=== PATIENT | female | born 1965 | race Caucasian/White ===

== ENCOUNTER → 2016-11-25 | Outpatient (CLI) | payer MEDICAID ==
[~2016-11-25] MED LIST: AC500T; AGM875T PO; ALPR1T PO; AMIT10TA6; CIPR500T78 PO; CLN.1T PO; CYCL10TA9; CYCL10TA9 PO; EST.625T; ESTR1TAB24 PO; FLAXSEED OIL PO; HYDR-2890 PO; HYDR-2997 PO; HYDR-3729 PO; HYDR-757 PO; HYDR1TAB PO; HYDR1TAB8 OP; IBUP-1773 PO; LD5PT; LVF500T; MEDR2.5T PO; METH500T35 PO; METO-333 PO; NAPR-243 PO; NAPR220T29 PO; OXYCONTIN; PARO7.5C PO; PRAV10TA PO; TAMS0.4C9 PO; TRAM50TA2 PO; TRM50T PO; URELLE; VARE1TAB17; ZLP10T PO
--- NOTE | 2016-11-28 09:16 | Diagnostic Imaging Report ---
Bilateral screening mammogram The current study was also evaluated with a Computer Aided Detection (CAD) system. INDICATION: Screening. No current complaints stated on the questionnaire. COMPARISON: 05/13/15. FINDINGS: The breasts are composed of scattered fibroglandular densities. There is no mass, architectural distortion or suspicious cluster of calcification. Allowing for technique and positional differences, no suspicious change is seen. IMPRESSION: No significant change. ACR BI-RADS Category 2: Benign findings. Result letter will be mailed to the patient. Note: At least 10% of breast cancer is not imaged by mammography. Dictated by: Dictated on workstation # [id number]
== END ==
LOC: RAD 10:08
PROVIDERS: ATTEND Nurse Practitioner Family
DX: Z12.31 Encounter for screening mammogram for malignant neoplasm of breast (principal)
CPT/HCPCS: 77067

== ENCOUNTER → 2016-12-15 | Outpatient (CLI) | payer MEDICAID ==
[~2016-12-15] MED LIST changes: +BUPIVACAINE 0.5% 30 ML (SENSORCAINE) VIAL ONE; +CATHETER FLUSH 10 ML SYR IV PRN; +HEParin (CENTRAL IV FLUSH) 500 UNIT/5 ML SYR ONE; +LIDOCAINE 1% INJ 20 ML (XYLOCAINE) VIAL ONE
--- NOTE | 2016-12-15 12:43 | Diagnostic Imaging Report ---
EXAMINATION: HIDA with EF measurements Indication: Abdominal pain TECHNIQUE: After the intravenous administration of 5 mCi of Tc 99m Choletec, imaging over the abdomen was obtained. This was followed by administration of Ensure orally to stimulate intrinsic CCK secretion, followed by continued imaging with ejection fraction measured. FINDINGS: There is homogeneous uptake in the liver with prompt bile duct and gallbladder filling seen. Bowel activity is seen at 25 minutes. Based on further imaging and gallbladder area of interest activity measurements after the administration of Ensure, the gallbladder ejection fraction is estimated at 72%. IMPRESSION: 1. Normal hepatobiliary uptake and Gallbladder filling. 2. Normal gallbladder ejection fraction. Dictated by: Dictated on workstation # [id number]
== END ==
LOC: CARD 09:35
PROVIDERS: ATTEND Family Medicine
DX: R10.31 Right lower quadrant pain (principal)
CPT/HCPCS: 78227

== ENCOUNTER 2017-01-16 05:41 | Outpatient (CLI) | payer MEDICAID ==
[~2017-01-16] VITALS: Ht 172.7 cm; Wt 88.5 kg
[~2017-01-16 05:41] MED LIST changes: -BUPIVACAINE 0.5% 30 ML (SENSORCAINE) VIAL ONE; -CATHETER FLUSH 10 ML SYR IV PRN; -HEParin (CENTRAL IV FLUSH) 500 UNIT/5 ML SYR ONE; -LIDOCAINE 1% INJ 20 ML (XYLOCAINE) VIAL ONE
[2017-01-16] MEDS ORDERED: NAPR550T PO (13:24)
[2017-01-16] MEDS ORDERED: TRAZ100T92 PO (13:24)
== END 2017-01-16 13:30 ==
LOC: PREOP 05:41
PROVIDERS: ATTEND Surgery
DX: Z01.818 Encounter for other preprocedural examination (principal); R19.5 Other fecal abnormalities

== ENCOUNTER 2017-01-18 10:16 | Day surgery (SDC) | payer MEDICAID ==
[~2017-01-18] VITALS: Ht 172.7 cm; Wt 88.5 kg
[~2017-01-18 10:16] MED LIST changes: +NAPR550T PO; +TRAZ100T92 PO
[2017-01-18 10:20] VITALS: BP 116/79
[2017-01-18] MEDS ORDERED: LACTATED RINGERS 1,000 ML IV ONE ×2 (10:23→12:48)
[2017-01-18] MEDS ORDERED: LACTATED RINGERS 1,000 ML IV SCH (11:00)
[2017-01-18] MEDS ORDERED: HURRICAINE EXT TUBE (BENZOCAINE) XX ONE (11:00)
[2017-01-18] MEDS ORDERED: PROPOFOL INJECTION 50 ML IV ONE (12:20)
[2017-01-18] MEDS ORDERED: MIDAZOLAM 5 MG/5 ML (VERSED) VIAL ONE (12:20)
--- NOTE | 2017-01-18 12:24 | Progress Note-Pre Operative ---
Pre-Operative Progress Note H&P Reviewed The H&P was reviewed, patient examined and no changes noted. Time Seen by Provider: 12:21 Date H&P Reviewed: Jan 18, 2017 Time H&P Reviewed: 12:21 Pre-Operative Diagnosis: Gastritis, MelROSALIE Tavares DO Jan 18, 2017 12:24
[2017-01-18 13:05] VITALS: BP 123/87
[2017-01-18 13:45] VITALS: BP 106/72
--- NOTE | 2017-01-18 14:18 | Endoscopy Discharge Instruct ---
Endo Procedure/Findings Findings 1.: Gastritis, Other Findings (Duodenitis) 2.: Polyp 3.: Diverticulosis 4.: Internal Hemorrhoids Discharge Instructions - Activity: You might feel a little sleepy until tomorrow. This is due to the medicine you received to relax you. Until tomorrow, you should: NOT drive a car, operate machinery or power tools. NOT drink any alcoholic beverages. NOT make any important decisions or sign importortant papers. Do not return to work until tomorrow, unless otherwise instructed. Resume previous activities tomorrow. Diet: Start by taking liquids. If you tolerate liquids, advance to solid food. Make appointment for one week, Notify Physician - If you experience excessive bleeding, unusual abdominal pain, fever, or chest pain, contact your doctor immediately. [phone] Follow-Up: - I have received and understand the above instructions and will call my doctor if I have any further questions. Patient Signature Date Nurse Signature Other (Relationship) ROSALIE BELLO DO Jan 18, 2017 14:18
--- NOTE | 2017-01-18 14:22 | Progress Note-Post Operative ---
Post-Operative Progess Note Surgeon (s)/Oven Tender Bagels (s) Surgeon ROSALIE BELLO DO Oven Tender Bagels: none Pre-Operative Diagnosis Gastritis, Melena Post-Operative Diagnosis Gastritis and Duodenitis Colon Polyps Diverticulosis Internal Hemorrhoids Procedure & Operative Findings Date of Procedure 01/18/17 Procedure Performed/Findings EGD with bx Colonoscopy with snare polypectomy Anesthesia Type IV Sedation Estimated Blood Loss Estimated blood loss (mL): scant Specimens/Packing Specimens Removed Duodenal bx, Antral bx, Polyp from Transverse colon, Polyp from Descending colon ROSALIE BELLO DO Jan 18, 2017 14:22
[2017-01-18 14:29] VITALS: BP 106/72
--- NOTE | 2017-01-19 09:30 | OPERATIVE REPORT ---
DATE OF SERVICE: 01/18/2017 PREOPERATIVE DIAGNOSES: Gastritis and history of melena. POSTOPERATIVE DIAGNOSES: 1. Gastritis and duodenitis. 2. Colon polyps 3. Diverticulosis 4. Internal hemorrhoids. PROCEDURE: 1. EGD with biopsy. 2. Colonoscopy and snare polypectomy. SURGEON: Zac Lino DO CLIENT SERVICE PROFESSIONAL: None. ANESTHESIA: IV sedation by CLIENT SERVER DEVELOPER. BLOOD LOSS: Scant. SPECIMEN: 1. Duodenal biopsy. 2. Antral biopsy, one polyp from the transverse colon and one polyp from the descending colon. FLUIDS: Per anesthesia. POSTOPERATIVE CONDITION: Stable. INDICATIONS FOR PROCEDURE: The patient is a 51-year-old female who has been having some gastritis and had some dark tarry stools and needed a workup. FINDINGS: The patient had some gastritis and duodenitis seen during an EGD. During the colonoscopy, she was found to have 2 small polyps, one in the transverse colon and one in the descending colon, showed some diverticula and internal hemorrhage. PROCEDURE NOTE: After informed consent was obtained, the patient was brought to the endoscopy suite and placed in the bed in the left lateral decubitus position. She was administered IV sedation. Vitals were monitored by the CLIENT SERVER DEVELOPER and I did the first procedure was EGD, placed the scope down the mouth through the esophagus into the stomach. I saw some gastritis in the stomach. No obvious ulcers. The scope was pushed into the duodenum and noticed a lot of redness and what looked like duodenitis. I elected to do a biopsy in the duodenum and then did a biopsy in the antrum. She may have a very small hiatal hernia, but nothing else seen. I had retroflexed to look for this and then at this point removed the scope out through the stomach up the esophagus, the GE junction looked fine and out the mouth. Started second procedure: Switched gloves and switched cameras, and went to the other side of the patient and performed the colonoscopy, inserted the scope. The scope was inserted all the way about 150 cm, able to get to the cecum. Took a picture of the appendiceal orifice on the way in and had noticed some diverticula. Once in the cecum, slowly withdrew the scope, insufflating to look circumferentially at the pimentel, looking at the cecum up the ascending colon to the hepatic flexure, then down the transverse colon and the transverse colon, there was a small polyp, took a picture of this and then removed with snare polypectomy and then continued down the transverse colon, the splenic flexure into the descending colon, found another small polyp and did another snare polypectomy and then continued down in the sigmoid and finally into the rectum, retroflexed in the rectal vault, saw some internal hemorrhoids, took a picture of this and then removed the scope. The patient tolerated the procedure and she was transferred to recovery room in stable condition. Job ID: [id number] DocumentID: [id number] Dictated Date: 01/18/2017 20:09:11 Head Transfer Clerk Date: 01/18/2017 23:33:33 Dictated By: DO HERBIE SAM
== END 2017-01-18 14:30 | disposition home or self-care (01) ==
LOC: ENDO 10:16
PROVIDERS: ATTEND Surgery
DX: K29.70 Gastritis, unspecified, without bleeding (principal); K29.80 Duodenitis without bleeding; K63.5 Polyp of colon; K57.30 Diverticulosis of large intestine without perforation or abscess without bleeding; K64.8 Other hemorrhoids; E78.5 Hyperlipidemia, unspecified; F17.210 Nicotine dependence, cigarettes, uncomplicated; E66.9 Obesity, unspecified; K21.9 Gastro-esophageal reflux disease without esophagitis; Z79.899 Other long term (current) drug therapy; Z68.29 Body mass index [BMI] 29.0-29.9, adult

== ENCOUNTER → 2017-04-14 | Outpatient (CLI) | payer MEDICAID ==
[~2017-04-14] MED LIST changes: +ALBU2.5V4 IH; +BENZ200C51 PO; +DOXY100C2 PO; +NAPR-1070 PO; -NAPR550T PO; +NEBU1KIT3 MC; +OMEP40CA36 PO; +ONDA8TAB13 PO; +PRD20T PO
--- NOTE | 2017-04-14 12:17 | Diagnostic Imaging Report ---
INDICATION: Lower respiratory infection. PA and lateral chest. Heart size and pulmonary vascularity are normal. Lungs are clear. There are no effusions or pneumothoraces. IMPRESSION: Negative chest. Dictated by: Dictated on workstation # [id number]
== END ==
LOC: RAD 11:37
PROVIDERS: ATTEND Family Medicine
DX: R06.02 Shortness of breath (principal)
CPT/HCPCS: 71020

== ENCOUNTER 2017-07-28 12:41 | Emergency (ER) | payer MEDICAID ==
[~2017-07-28] VITALS: Ht 172.7 cm; Wt 88.5 kg
[2017-07-28 13:31] LABS: BILIRUBIN,URINE NEGATIVE (NEGATIVE); KETONES,URINE NEGATIVE (NEGATIVE); LEUKOCYTE ESTERASE ,URINE NEGATIVE (NEGATIVE); NITRITE,URINE NEGATIVE (NEGATIVE); PH,URINE 6.5 (5-9); PROTEIN,URINE NEGATIVE (NEGATIVE); UROBILINOGEN,URINE NORMAL (NORMAL)
[2017-07-28 13:40] LABS: SQUAMOUS EPITHELIAL CELL,UR 25-50 /HPF
[2017-07-28] MEDS ORDERED: MECLIZINE 25 MG (ANTIVERT) TAB PO ONE (14:00)
--- NOTE | 2017-07-28 14:00 | ED General ---
General Chief Complaint: Dizziness/Syncope Stated Complaint: DIZZY/PASSING OUT Nursing Triage Note: Pt c/o dizziness and feeling as if she is going to pass out for the last 6 days. Pt tried to get in to se PCP yesterday but was unable to get appt. Nursing Sepsis Screen: No Definite Risk Source of Information: Patient Exam Limitations: No Limitations History of Present Illness Time Seen by Provider: 13:57 Initial Comments The patient is a 52-year-old white female who reports that earlier in the week she began to have the sense of spinning when she turned her head or contorted her body. This has continued and increased in its frequency. She denies hearing loss or tinnitus. She has not previously noted this problem. Timing/Duration: 1 Week Associated Systoms: Syncope, Weakness Allergies and Home Medications Allergies Coded Allergies: Rvcbeii-Lhh-Bto Reductase Inhibitor (Verified Allergy, Unknown, LEG CRAMPS , 01/16/17) fentanyl (Verified Allergy, Unknown, 01/16/17) Home Medications Albuterol Sulfate 2.5 Mg/3 Ml Vial.neb, 2.5 MG IH Q4H PRN for SHORTNESS OF BREATH, #25 Ref 0 Prescribed by: MAYELIN MERCHANT on 06/10/17 1625 Alprazolam 1 Mg Tablet, 1 MG PO TID, (Reported) Benzonatate 200 Mg Capsule, 200 MG PO Q8H PRN for COUGH, #30 Ref 1 Prescribed by: MAYELIN MERCHANT on 06/10/17 1707 Doxycycline Hyclate 100 Mg Capsule, 100 MG PO BID, #14 Ref 0 Prescribed by: MAYELIN MERCHANT on 06/10/17 1625 Naproxen Sodium 550 Mg Tablet, 550 MG PO BID, (Reported) Omeprazole 40 Mg Capsule.dr, 40 MG PO DAILY, #30 Ref 0 Prescribed by: MAYELIN MERCHANT on 06/10/17 1625 Ondansetron 8 Mg Tab.rapdis, 8 MG PO Q6H PRN for NAUSEA/VOMITING-1ST LINE, #10 Ref 1 Prescribed by: MAYELIN MERCHANT on 06/10/17 1708 Prednisone 20 Mg Tab, 40 MG PO DAILY, #10 Ref 0 Prescribed by: MAYELIN MERCHANT on 06/10/17 1625 Trazodone HCl 100 Mg Tablet, 100 MG PO HS, (Reported) Constitutional: see HPI EENTM: see HPI Respiratory: no symptoms reported Cardiovascular: no symptoms reported Gastrointestinal: no symptoms reported Genitourinary: no symptoms reported Musculoskeletal: no symptoms reported Skin: no symptoms reported Psychiatric/Neurological: No Symptoms Reported Hematologic/Lymphatic: No Symptoms Reported Immunological/Allergic: no symptoms reported Past Cmgczrm-Lddtch-Wkjhgj Hx Patient Social History Type Used: Cigarettes Recent Foreign Travel: No Contact w/Someone Who Travel: No Recent Infectious Disease Expo: No Recent Hopitalizations: No Immunizations Up To Date Date of Influenza Vaccine: May 09, 2011 Seasonal Allergies Seasonal Allergies: Yes Surgeries History of Surgeries: Yes (LOWER BACK SX, BILAT CTR, BILAT ELBOW, BILAT RCR, DXLS, ) Surgeries: Appendectomy, Hysterectomy, Oophorectomy, Orthopedic Respiratory History of Respiratory Disorde: No Cardiovascular History of Cardiac Disorders: Yes Cardiac Disorders: High Cholesterol, Irregular Heartbeat Neurological History of Neurological Disord: Yes Neurological Disorders: Headaches /Migraines 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 System Hx 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 Disorders: No Sexually Transmitted Disease: Yes (HPV) HIV/AIDS: No Female 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 Disorders: Denies 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 Genitourinary Genitourinary Disorders: Kidney Stones Gastrointestinal History of Gastrointestinal Di: Yes (ABDOMINAL PAIN, TARRY STOOLS) Gastrointestinal Disorders: Gastroesophageal Reflux, Chronic Diarrhea Musculoskeletal History of Musculoskeletal Dis: Yes Musculoskeletal Disorders: Arthritis, Chronic Back Pain Endocrine History of Endocrine Disorders: Yes (PRE DIABETIC) HEENT Loss of Vision: Bilateral Hearing Impairment: Denies Cancer History of Cancer: No Psychosocial History of Psychiatric Problem: Yes (SEVERE MANIC DEPRESSIVE DISORDER) Behavioral Health Disorders: Anxiety, Bipolar, Depression Integumentary History of Skin or Integumenta: No Blood Transfusions History of Blood Disorders: No Adverse Reaction to a Blood Tr: No (N/A) Family Medical History Significant Family History: No Pertinent Family Hx Family Medial History: Alcoholism 19 FATHER G8 BROTHER G8 SISTER Arthritis 19 MOTHER G8 SISTER Cardiovascular disease 19 FATHER G8 BROTHER Diabetes mellitus 19 FATHER G8 BROTHER G8 SISTER Drug abuse G8 BROTHER G8 SISTER FH: cancer 19 MOTHER (BREAST) Glaucoma 19 FATHER G8 SISTER Hypercholesterolemia 19 FATHER G8 BROTHER Hypertension 19 FATHER G8 BROTHER Myocardial infarction 19 FATHER Psychosocial problem 19 MOTHER G8 BROTHER G8 SISTER Respiratory disorder 19 FATHER Seizure disorder G8 SISTER Thyroid disease G8 SISTER Physical Exam Vital Signs Vital Sign - Last 12Hours 07/28/17 12:54 Temp 98.1 Pulse 75 Resp 18 B/P (MAP) 120/77 (91) Pulse Ox 96 O2 Delivery Room Air Capillary Refill : Less Than 3 Seconds General Appearance: Mild Distress Eyes: Bilateral Eye Normal Inspection Neck: Normal Inspection Respiratory: Chest Non Tender, Lungs Clear, Normal Breath Sounds, No Accessory Muscle Use, No Respiratory Distress Cardiovascular: Regular Rate, Rhythm, No Edema, No Gallop, No JVD, No Murmur, Normal Peripheral Pulses Gastrointestinal: Normal Bowel Sounds, No Organomegaly, No Pulsatile Mass, Non Tender, Soft Back: Normal Inspection, No CVA Tenderness, No Vertebral Tenderness Neurologic/Psychiatric: Alert, Oriented x3, No Motor/Sensory Deficits, Normal Mood/Affect Skin: Normal Color, Warm/Dry Lymphatic: No Adenopathy Comments Rapid nystagmus to extraocular range of motion Progress/Results/Core Measures Suspected Sepsis Recent Fever Within 48 Hours: No Infection Criteria Present: None New/Unexplained Altered Menta: No Sepsis Screen: No Definite Risk Sepsis Diagnosis: SIRS Temperature:98.1 Pulse: 75 Respiratory Rate: 18 Laboratory Tests 07/28/17 13:56: White Blood Count 5.7 Blood Pressure 120 /77 Mean: 91 Laboratory Tests 07/28/17 13:56: Creatinine 0.72, Platelet Count 242, Total Bilirubin 0.4 Results/Orders Lab Results Laboratory Tests Test 07/28/17 13:03 07/28/17 13:56 Range/Units Urine Color YELLOW Urine Clarity SLIGHTLY CLOUDY Urine pH 6.5 5-9 Urine Specific [place] 1.005 L 1.016-1.022 Urine Protein NEGATIVE NEGATIVE Urine Glucose (UA) NEGATIVE NEGATIVE Urine Ketones NEGATIVE NEGATIVE Urine Nitrite NEGATIVE NEGATIVE Urine Bilirubin NEGATIVE NEGATIVE Urine Urobilinogen NORMAL NORMAL MG/DL Urine Leukocyte Esterase NEGATIVE NEGATIVE Urine RBC (Auto) NEGATIVE NEGATIVE Urine RBC NONE /HPF Urine WBC NONE /HPF Urine Squamous Epithelial Cells 25-50 H /HPF Urine Crystals NONE /LPF Urine Bacteria MODERATE H /HPF Urine Casts NONE /LPF Urine Mucus NEGATIVE /LPF Urine Culture Indicated NO White Blood Count 5.7 4.3-11.0 10^3/uL Red Blood Count 4.67 4.35-5.85 10^6/uL Hemoglobin 15.0 11.5-16.0 G/DL Hematocrit 43 35-52 % Mean Corpuscular Volume 93 80-99 FL Mean Corpuscular Hemoglobin 32 25-34 PG Mean Corpuscular Hemoglobin Concent 35 32-36 G/DL Red Cell Distribution Width 12.5 10.0-14.5 % Platelet Count 242 130-400 10^3/uL Mean Platelet Volume 10.1 7.4-10.4 FL Neutrophils (%) (Auto) 56 42-75 % Lymphocytes (%) (Auto) 38 12-44 % Monocytes (%) (Auto) 5 0-12 % Eosinophils (%) (Auto) 1 0-10 % Basophils (%) (Auto) 0 0-10 % Neutrophils # (Auto) 3.2 1.8-7.8 X 10^3 Lymphocytes # (Auto) 2.2 1.0-4.0 X 10^3 Monocytes # (Auto) 0.3 0.0-1.0 X 10^3 Eosinophils # (Auto) 0.0 0.0-0.3 10^3/uL Basophils # (Auto) 0.0 0.0-0.1 10^3/uL Sodium Level 140 135-145 MMOL/L Potassium Level 3.7 3.6-5.0 MMOL/L Chloride Level 104 98-107 MMOL/L Carbon Dioxide Level 26 21-32 MMOL/L Anion Gap 10 5-14 MMOL/L Blood Urea Nitrogen 7 7-18 MG/DL Creatinine 0.72 0.60-1.30 MG/DL Estimat Glomerular Filtration Rate > 60 BUN/Creatinine Ratio 10 Glucose Level 98 70-105 MG/DL Calcium Level 9.4 8.5-10.1 MG/DL Total Bilirubin 0.4 0.1-1.0 MG/DL Aspartate Amino Transf (AST/SGOT) 18 5-34 U/L Alanine Aminotransferase (ALT/SGPT) 20 0-55 U/L Alkaline Phosphatase 80 40-136 U/L Total Protein 7.2 6.4-8.2 GM/DL Albumin 4.3 3.2-4.5 GM/DL My Orders Orders - MAU HOFFMANN MD Ekg Tracing (07/28/17 13:22) Cbc With Automated Diff (07/28/17 13:22) Comprehensive Metabolic Panel (07/28/17 13:22) Ua Culture If Indicated (07/28/17 13:22) Meclizine Tablet (Antivert Tablet) (07/28/17 14:00) Medications Given in ED Current Medications Medications Dose Ordered Sig/Charlotte Route Start Time Stop Time Status Last Admin Dose Admin Meclizine HCl 25 mg ONCE ONCE PO 07/28/17 14:00 07/28/17 14:02 DC 07/28/17 14:21 25 MG Vital Signs/I&O Vital Sign - Last 12Hours 07/28/17 12:54 Temp 98.1 Pulse 75 Resp 18 B/P (MAP) 120/77 (91) Pulse Ox 96 O2 Delivery Room Air Capillary Refill : Less Than 3 Seconds Blood Pressure Mean: 91 Departure Communication (Admissions) Progress Notes Laboratory is entirely normal. The patient reports that she is perhaps modestly better after her single dose of Antivert. She will be dismissed on Antivert to be taken 4 times daily on schedule. Impression Impression: Primary Impression: vertigo Disposition: HOME, SELF-CARE Condition: Stable/Unchanged Departure-Patient Inst. Decision time for Depature: 15:18 Referrals: RK FU JR, MD (PCP) Primary Care Physician Patient Instructions: Vertigo (a Type of Dizziness) (DC) Add. Discharge Instructions: All discharge instructions reviewed with patient and/or family. Voiced understanding. Take the Antivert as directed. Plenty of fluids. Rest. If still troubled after the holiday I would recommend arranging an ear nose and throat consultation. Scripts [Antivert] No Conflict Check 25 MG 4 times a day, #20 Prov: MAU HOFFMANN MD 07/28/17 MAU HOFFMANN MD Jul 28, 2017 14:00
[2017-07-28 14:10] LABS: BASOPHILS % (AUTO) 0 % (0-10); EOSINOPHILS % (AUTO) 1 % (0-10); LYMPHOCYTES # (AUTO) 2.2 X 10^3 (1.0-4.0); LYMPHOCYTES % (AUTO) 38 % (12-44); MEAN CORPUSCULAR HEMOGLOBIN 32 PG (25-34); MEAN CORPUSCULAR HGB CONC 35 G/DL (32-36); MEAN CORPUSCULAR VOLUME 93 FL (80-99); MEAN PLATELET VOLUME 10.1 FL (7.4-10.4); MONOCYTES # (AUTO) 0.3 X 10^3 (0.0-1.0); MONOCYTES % (AUTO) 5 % (0-12); NEUTROPHILS # (AUTO) 3.2 X 10^3 (1.8-7.8); NEUTROPHILS % (AUTO) 56 % (42-75); PLATELET COUNT 242 10^3/uL (130-400); RED BLOOD COUNT 4.67 10^6/uL (4.35-5.85); RED CELL DISTRIBUTION WIDTH 12.5 % (10.0-14.5); WHITE BLOOD COUNT 5.7 10^3/uL (4.3-11.0)
[2017-07-28 14:28] LABS: ALANINE AMINOTRANSFERASE 20 U/L (0-55); ALBUMIN 4.3 GM/DL (3.2-4.5); ANION GAP 10 MMOL/L (5-14); ASPARTATE AMINO TRANSFERASE 18 U/L (5-34); BILIRUBIN,TOTAL 0.4 MG/DL (0.1-1.0); BLOOD UREA NITROGEN 7 MG/DL (7-18); BUN/CREATININE RATIO 10; CALCIUM 9.4 MG/DL (8.5-10.1); CARBON DIOXIDE 26 MMOL/L (21-32); CHLORIDE 104 MMOL/L (98-107); CREATININE SERUM 0.72 MG/DL (0.60-1.30); GFR ESTIMATED > 60; GLUCOSE 98 MG/DL (70-105); POTASSIUM 3.7 MMOL/L (3.6-5.0); SODIUM 140 MMOL/L (135-145); TOTAL PROTEIN 7.2 GM/DL (6.4-8.2)
[2017-07-28] MEDS ORDERED: Antivert (15:20)
[2017-07-28 15:27] VITALS: BP 120/77
== END 2017-07-28 15:27 | disposition home or self-care (01) ==
LOC: EDUNIT# 12:41 → ER 12:43
DX: R42 Dizziness and giddiness (principal); E78.00 Pure hypercholesterolemia, unspecified; G43.909 Migraine, unspecified, not intractable, without status migrainosus; K21.9 Gastro-esophageal reflux disease without esophagitis; F31.89 Other bipolar disorder; F41.9 Anxiety disorder, unspecified; Z82.49 Family history of ischemic heart disease and other diseases of the circulatory system; Z80.3 Family history of malignant neoplasm of breast; Z90.49 Acquired absence of other specified parts of digestive tract; Z90.710 Acquired absence of both cervix and uterus; Z87.19 Personal history of other diseases of the digestive system; Z87.891 Personal history of nicotine dependence
CPT/HCPCS: 36415; 80053; 81000; 85025; 93005

== ENCOUNTER → 2017-11-23 | Outpatient (CLI) | payer MEDICAID ==
[~2017-11-23] MED LIST changes: +Antivert; +TRAZ-190 PO; -TRAZ100T92 PO
--- NOTE | 2017-11-23 11:45 | Diagnostic Imaging Report ---
INDICATION: Screening for osteoporosis. TECHNIQUE: Bone mineral density of the bilateral hips was performed. Lumbar spine could not be evaluated due to spinal instrumentation. FINDINGS: Bone mineral density of the left femoral neck is 0.878 with T score -1.2. Bone mineral density of right femoral neck is 0.881 with T score -1.1. IMPRESSION: Findings consistent with osteopenia of bilateral femoral necks. Dictated by: Dictated on workstation # [id number]
--- NOTE | 2017-11-23 11:51 | Diagnostic Imaging Report ---
INDICATION: Palpable lump in the left breast 4 to 5 o'clock location. Correlation is made with diagnostic mammogram earlier the same day. Sonographic interrogation in the area of palpable abnormality in the inferior left breast was performed. No sonographic abnormality is seen. No solid or cystic masses detected. IMPRESSION: BI-RADS category one No sonographic abnormality is seen. Patient may return to routine annual screening mammography. Continued close clinical and self breast exam is recommended to confirm stability of the palpable abnormality. ACR BI-RADS Category 1: Negative. Dictated by: Dictated on workstation # [id number]
--- NOTE | 2017-11-23 18:46 | Diagnostic Imaging Report ---
INDICATION: Palpable lump in the inferior left breast. Correlation is made with prior exam from 11/25/2016 and 05/13/2015. The current study was also evaluated with a Computer Aided Detection (CAD) system. FINDINGS: Both breasts are primarily involutional. No mass at the area of palpable abnormality is seen, which was marked with a BB marker. No suspicious calcifications are identified. Slightly nodular density in the outer left breast mid depth is noted and stable to prior exam. The axillae are unremarkable. IMPRESSION: No mammographic features suspicious for malignancy are identified. Even so, directed sonographic interrogation of the area of palpable abnormality in the inferior left breast is recommended and will be performed today. ACR BI-RADS Category 0: Incomplete. (Needs additional imaging evaluation). Result letter will be mailed to the patient. Note: At least 10% of breast cancer is not imaged by mammography. Dictated by: Dictated on workstation # [id number]
== END ==
LOC: RAD 09:02
PROVIDERS: ATTEND Physician Assistant
DX: Z13.820 Encounter for screening for osteoporosis (principal); N63.23 Unspecified lump in the left breast, lower outer quadrant
CPT/HCPCS: 76642; 77066; 77080

== ENCOUNTER 2017-12-08 08:08 | Outpatient (RCR) | payer MEDICAID ==
[~2017-12-08 08:08] MED LIST changes: -TRAZ-190 PO; +TRAZ100T92 PO
== END 2018-01-08 13:43 | disposition home or self-care (01) ==
PROVIDERS: ATTEND Orthopaedic Surgery Sports Medicine
DX: S13.4XXD Sprain of ligaments of cervical spine, subsequent encounter (principal); X50.9XXD Other and unspecified overexertion or strenuous movements or postures, subsequent encounter

== ENCOUNTER 2018-04-23 11:23 | Emergency (ER) | payer MEDICAID ==
[~2018-04-23] VITALS: Ht 172.7 cm; Wt 88.5 kg
[~2018-04-23 11:23] MED LIST changes: +TRAZ-190 PO; -TRAZ100T92 PO
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
--- OUTSIDE RECORDS SUMMARY | 2018-04-23 11:29 | XMS REPORT ---
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 Name Role Phone JOSEVASQUEZ ZUNIGA Unavailable PROBLEMS Type Condition ICD9-CM Code [id number] Code Onset Dates Condition Status SNOMED Code Problem Major depressive disorder, recurrent episode, moderate F33.1 Active 729442029 Problem PTSD (post-traumatic stress disorder) F43.10 Active 98977855 Problem Cannabis abuse F12.10 Active 31222192 Problem GERD with esophagitis K21.0 Active 425647500 Problem Spasm of muscle 728.85 Active 70584696 Problem Cocaine use disorder, moderate, in sustained remission F14.21 Active 31804551 Problem Diarrhea 787.91 Active 89776058 Problem Alcohol use disorder, mild, 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 Active 95097512 Problem Tobacco use Z72.0 Active 884341472 Problem Methamphetamine use disorder, severe, 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2 Active 065273297 Problem Insomnia 780.52 Active 571032180 Problem Generalized anxiety disorder F41.1 Active 25233728 ALLERGIES No Information ENCOUNTERS Encounter Location Date Diagnosis [facility] [address] [id number] [address] 14 Apr, 2018 [facility] [address] [id number] [id number] 13 Apr, 2018 [facility] [address] [facility] [id number] [id number] Mar, Encounter for dental exam and cleaning w/o abnormal findings Z01.20 [facility] [id number], [place] [address] Mar, [facility] [address] [place] [address]222- 9915 Feb, Cocaine use disorder, moderate, in sustained remission F14.21 ; Opioid use disorder, moderate, in sustained remission F11.21 ; Alcohol use disorder, mild, 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 ; Tobacco use Z72.0 ; PTSD ( post-traumatic stress disorder) F43.10 ; Methamphetamine use disorder, severe, 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 ; Generalized anxiety disorder F41.1 ; Cannabis abuse F12.10 and Major depressive disorder, recurrent episode, moderate F33.1 [facility] [id number], [place] [address] Jan, Cocaine use disorder, moderate, in sustained remission F14.21 [facility] [address] [place] [address]4553- 4293 Jan, Cocaine use disorder, moderate, in sustained remission F14.21 ; Opioid use disorder, moderate, in sustained remission F11.21 ; Alcohol use disorder, mild, 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 ; Tobacco use Z72.0 ; PTSD ( post-traumatic stress disorder) F43.10 ; Methamphetamine use disorder, severe, 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 ; Generalized anxiety disorder F41.1 ; Cannabis abuse F12.10 and Major depressive disorder, recurrent episode, moderate F33.1 [facility] [address] [place] [address] 17995- 5727 Jan, Dysuria R30.0 and GERD with esophagitis K21.0 [facility] [address] [address] December, Major depressive disorder, recurrent episode, moderate F33.1 [facility] [address] [place] [address] 98719- 6863 December, [facility] [id number] [place] [address] 19516- 0381 December, Major depressive disorder, recurrent episode, moderate F33.1 ; Generalized anxiety disorder F41.1 ; Cannabis abuse F12.10 ; PTSD (post- traumatic stress disorder) F43.10 ; Methamphetamine use disorder, severe, 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 ; Cocaine use disorder, moderate, in sustained remission F14.21 ; Opioid use disorder, moderate, in sustained remission F11.21 ; Alcohol use disorder, mild, 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 and Tobacco use Z72.0 [facility] [address] [place] [address] 19853- 0804 Nov, [facility] [address] [place] [id number] [place] [address] Nov, [facility] [id number] [place] [address] 03142- 1765 Nov, Wellness examination Z00.00 ; Encounter for immunization Z23 ; Screening for osteoporosis Z13.820 ; Screening for breast cancer Z12.31 and Left breast lump N63.20 [facility] [address] [place] [id number] Oct, Dental examination Z01.20 [facility] [address] [place] [address] 16362- 9035 Oct, [facility] [id number] [place] [address] 44597- 1008 Oct, [facility] [id number] [place] [address] 49314- 6650 16 Sep, 2017 [facility] [id number] [place] [address] 95205- 7904 15 Sep, 2017 [facility] [id number] [place] [address] 14018- 4000 14 Sep, 2017 Left otitis media with effusion H65.92 ; Acute suppurative otitis media of right ear without spontaneous rupture of tympanic membrane, recurrence not specified H66.001 ; Dizziness R42 and Fatigue 780.79 [facility] [id number] [place] [address] 72234- 2400 Aug, Major depressive disorder, recurrent episode, moderate F33.1 ; Generalized anxiety disorder F41.1 ; Cannabis abuse F12.10 ; PTSD (post- traumatic stress disorder) F43.10 ; Methamphetamine use disorder, severe, 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 ; Cocaine use disorder, moderate, in sustained remission F14.21 ; Opioid use disorder, moderate, in sustained remission F11.21 ; Alcohol use disorder, mild, 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 and Tobacco use Z72.0 [facility] [id number] [place] [address]2234 -2461 Aug, Ingrown right big toenail L60.0 [facility] [id number] [place] [address] 49834- 9411 Aug, [facility] [id number] [place] [address] 68638- 1753 Aug, PTSD (post-traumatic stress disorder) F43.10 [facility] [id number] [place] [address] 65288- 4045 Aug, Major depressive disorder, recurrent episode, moderate F33.1 ; Generalized anxiety disorder F41.1 and Cannabis abuse F12.10 [facility] [id number] [place] [address] 16667- 2148 Jul, [facility] [id number] [place] [address] 27244- 0295 Jul, [facility] [address] [address] Jul, [facility] [id number] [place] [address] 20165- 0355 Jul, Major depressive disorder, recurrent episode, moderate F33.1 ; Generalized anxiety disorder F41.1 and Cannabis abuse F12.10 [facility] [address], [place] [address] Jul, [facility] [id number] [place] [address] 03230- 0721 Jul, [facility] [id number] [place] [address] 07506- 4800 Jul, Hyperlipidemia 272.4 [facility] [id number] [place] [address] 570773- 2023 Jul, PTSD (post-traumatic stress disorder) F43.10 [facility] [id number] [place] [address] 34820- 1457 Jul, Tobacco use Z72.0 ; Alcohol use disorder, mild, 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 ; Opioid use disorder, moderate, in sustained remission F11.21 ; Methamphetamine use disorder, severe, 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 ; Cocaine use disorder, moderate, in sustained remission F14.21 ; PTSD ( post-traumatic stress disorder) F43.10 ; Major depressive disorder, recurrent episode, moderate F33.1 ; Generalized anxiety disorder F41.1 and Cannabis abuse F12.10 [facility] [place] [address] [place] [address] 96923- 7761 Jul, [facility] [address] [place] [address] 92444- 1234 Jul, Dysuria R30.0 and Mixed hyperlipidemia E78.[address] [place] [address] 93784- 1302 Jun, Major depressive disorder, recurrent episode, moderate F33.1 ; Generalized anxiety disorder F41.1 and Cannabis abuse F12.10 [facility] [address] [place] [address] 36202- 8616 Jun, [address] [place] [address] 92153- 2795 Jun, Generalized anxiety disorder F41.1 ; Major depressive disorder, recurrent episode, moderate F33.1 ; PTSD (post-traumatic stress disorder) F43.10 ; Opioid use disorder, moderate, in sustained remission F11.21 ; Cannabis abuse F12.10 ; Alcohol use disorder, mild, 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 ; Methamphetamine use disorder, severe, 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 ; Cocaine use disorder, moderate, in sustained remission F14.21 and Tobacco use Z72.[address] 14206- 3323 Jun, Major depressive disorder, recurrent episode, moderate F33.1 ; Generalized anxiety disorder F41.1 and Cannabis abuse F12.[address] 91331- 9596 Jun, [id number] [place] [address] 80286- 2314 Jun, [address] 72563- 4782 Jun, Major depressive disorder, recurrent episode, moderate F33.1 ; Generalized anxiety disorder F41.1 and Cannabis abuse F12.10 [facility] [address] [id number] Mar, Dental examination Z01.20 [facility] [id number] [place] [address] [id number] Feb, Dental examination Z01.20 [facility] [id number] [place] [address] 30789- 9524 Mar, [facility] [id number] [place] [address] 41222- 0977 Mar, [address] 67918- 3863 Feb, Hyperlipidemia 272.4 and Prediabetes 790.29 [id number] [place] [address] 93071- 3581 Feb, Fatigue 780.79 and Hyperlipidemia 272.[address] [id number] [place] [address]- 0243 Feb, Lumbago 724.2 ; Hyperlipidemia 272.4 ; Insomnia 780.52 and Fatigue 780.79 [facility] [address] [place] [address]- 8306 Nov, [facility] [address] [place] [address]- 8115 Nov, [facility] [address], [place] [address]- 9492 Mar, [facility] [id number] [place] [address], [place] [address]- 9200 Mar, [facility] [id number], [place] [address]- 1730 Jan, [facility] [id number], [place] [address]- 9598 Jan, [facility] [address] [place] [address]- 5094 December, [facility] [address] [place] [address]- 9496 December, [facility] [address] [address]- 4189 Nov, [facility] [address], [place] [address]- 9125 Nov, [facility] [address], [place] [address]- 1982 Nov, [facility] [address], [place] [address]- 7091 Nov, [facility] [address], [place] [address]- 2054 Nov, [facility] [id number], [place] [address]- 4810 Nov, [facility] [place] [facility] [address] [id number] [place] [address]- 9206 31 Oct, 2013 [facility] [place] [facility] [address] [id number] [place] [address]283 31 Oct, 2013 [facility] [place] [facility] [address] [id number] [place] [address]- 2256 20 Oct, 2013 [facility] [place] [facility] [address] [id number] [place] [address]- 1556 20 Oct, 2013 [facility] [place] [facility] [address] [id number] [place] [address]- 5966 Oct, [facility] [place] [facility] [address] [id number] [place] [address]- 8711 Oct, [facility] [place] [facility] [address] [id number] [place] [address]- 7236 Oct, [facility] [place] [facility] [address] [id number] [place] [address]- 9721 Oct, [facility] [place] [facility] [address] [id number] [place] [address]- 9874 Oct, [facility] [place] [facility] [address] [id number] [place] [address]- 2422 Oct, [facility] [place] [facility] [address] [id number] [place] [address]- 7301 Oct, [facility] [place] [facility] [address] [id number] [place] [address]- 2092 Oct, [facility] [place] [facility] [address] [id number] [place] [address]- 8275 Oct, [facility] [place] [facility] [address] [id number] [place] [address]- 4166 Sep, [facility] [place] [facility] [address] [id number] [place] [address]- 8513 Sep, [facility] [place] [facility] [address] [id number] [place] [address]- 1512 20 Sep, 2013 [facility] [place] [facility] [address] [id number] [place] [address]- 3316 20 Sep, 2013 [facility] [place] [facility] [address] [id number] [place] [address]- 7746 20 Sep, 2013 [facility] [place] [facility] [address] [facility] [id number] [place] [address]- 8555 20 Sep, 2013 [facility] [place] [facility] [address] [id number] [place] [address]- 3404 18 Sep, 2013 [facility] [place] [facility] [address] [id number] [place] [address]- 6131 18 Sep, 2013 [facility] [place] [facility] [address] [facility] [id number] [place] [address]- 9232 14 Sep, 2013 [facility] [place] [facility] [address] [facility] [id number] [place] [address]- 1139 14 Sep, 2013 [facility] [place] [facility] [address] [facility] [id number] [place] [address]- 2788 14 Sep, 2013 [facility] [place] [facility] [address] [facility] [id number] [place] [address]- 3844 14 Sep, 2013 [facility] [place] [facility] [address] [facility] [id number] [place] [address]- 5052 14 Sep, 2013 [facility] [place] [facility] [address] [facility] [id number] [place] [address]- 3353 14 Sep, 2013 [facility] [place] [facility] [address] [facility] [id number] [place] [address]- 5456 13 Sep, 2013 [facility] [place] [facility] [address] [facility] [id number] [place] [address]- 0921 13 Sep, 2013 [facility] [place] [facility] [address] [facility] [id number] [place] [address]- 1932 12 Sep, 2013 [facility] [place] [facility] [address] [facility] [id number] [place] [address]- 6911 Sep, [facility] [address] [id number] [place] [address]- 9292 Sep, [facility] [place] [facility] [address] [id number] [place] [address]- 5038 Sep, [facility] [place] [facility] [address] [id number] [place] [address]- 6349 Aug, [facility] [place] [facility] [address] [id number] [place] [address]- 6599 Aug, [facility] [place] [facility] [address] [id number] [place] [address]- 0302 Aug, [facility] [place] [facility] [address] [id number] [place] [address]- 5981 Aug, [facility] [place] [facility] [address] [id number] [place] [address]- 1733 Aug, [facility] [place] [facility] [address] [id number] [place] [address]- 0280 Jul, [facility] [place] [facility] [address] [id number] [place] [address]- 2411 Jul, [facility] [place] [facility] [address] [id number] [place] [address]- 2798 Jul, [facility] [place] [facility] [address] [id number], [place] [address]- 0455 Jul, [facility] [place] [facility] [address] [id number], [place] [address]- 1226 Jul, [facility] [place] [facility] [address] [id number] [place] [address]- 7462 Jul, [facility] [place] [facility] [address] [id number], [place] [address]- 8512 Jul, [facility] [place] [facility] [address] [id number] [place] [address]- 7183 Jul, [facility] [place] [facility] [address] [id number] [place] [address]- 3570 Jul, [facility] [place] [facility] [address] [id number] [place] [address]- 3005 Jun, [facility] [place] [facility] [address] [id number] [place] [address]- 8772 Jun, [facility] [place] [facility] [address] [id number] [place] [address]- 4171 Jun, [facility] [place] [facility] [address] [id number] [place] [address]- 7305 Jun, [facility] [place] [facility] [address] [id number] [place] [address]- 3758 Jun, [facility] [place] [facility] [address] [id number] [place] [address]- 9335 Jun, [facility] [place] [facility] [address] [id number] [place] [address]- 8485 Jun, [facility] [place] [facility] [address] [id number] [place] [address]- 9753 Jun, [facility] [place] [facility] [address] [id number] [place] [address]- 1308 Jun, [facility] [place] [facility] [address] [facility] [id number] [place] [address]- 4377 Jun, [facility] [place] [facility] [address] [id number] [place] [address]- 2176 May, [facility] [place] [facility] [address] [id number], [place] [address]- 5260 28 May, 2013 [facility] [place] [facility] [address] [id number] [place] [address]- 2433 May, [facility] [place] [facility] [address] [id number] [place] [address]- 5393 22 May, 2013 [facility] [place] [facility] [address] [id number], [place] [address]- 0391 16 May, 2013 [facility] [place] [facility] [address] [id number] [place] [address]- 7551 May, [facility] [place] [facility] [address] [id number] [place] [address]- 2938 May, [facility] [place] [facility] [address] [id number] [place] [address]- 7556 May, [facility] [place] [facility] [address] [id number] [place] [address]- 0803 May, [facility] [place] [facility] [address] [id number] [place] [address]- 7256 Apr, [facility] [place] [facility] [address] [id number] [place] [address]- 9136 Apr, [facility] [place] [facility] [address] [id number] [place] [address]- 3887 Apr, [facility] [place] [facility] [address] [id number] [place] [address]- 4977 Apr, [facility] [place] [facility] [address] [id number] [place] [address]- 0258 Mar, [facility] [place] [facility] [address] [id number] [place] [address]- 7664 Mar, [facility] [place] [facility] [address] [id number] [place] [address]- 8065 Mar, [facility] [place] [facility] [address] [id number] [place] [address]- 6179 Mar, [facility] [place] [facility] [address] [id number] [place] [address]- 9407 Mar, [facility] [place] [facility] [address] [id number] [place] [address]- 9580 Mar, [facility] [place] [facility] [address] [id number] [place] [address]- 3974 Mar, [facility] [place] [facility] [address] [id number] [place] [address]- 3606 Feb, [facility] [address] [id number] [place] [address]- 6787 Feb, [facility] [place] [facility] [address] [id number] [place] [address]- 3735 Feb, [facility] [place] [facility] [address] [id number] [place] [address]- 8842 Feb, [facility] [place] [facility] [address] [id number] [place] [address]- 9230 Feb, [facility] [place] [facility] [address] [id number] [place] [address]- 4155 Feb, [facility] [place] [facility] [address] [id number] [place] [address]- 3395 Feb, [facility] [address] [id number] [place] [address]- 7341 Feb, [facility] [place] [facility] [address] [id number] [place] [address]- 2449 Feb, [facility] [place] [facility] [address] [id number] [place] [address]- 0216 Feb, [facility] [place] [facility] [address] [id number] [place] [address]- 0874 Feb, [facility] [place] [facility] [address] [id number] [place] [address]- 1859 Jan, [facility] [place] [facility] [address] [id number] [place] [address]- 1865 Jan, [facility] [place] [facility] [address] [id number] [place] [address]- 6248 December, [facility] [place] [facility] [address] [id number] [place] [address]- 0150 December, [facility] [place] [facility] [address] [id number] [place] [address]- 5536 Nov, [facility] [place] [facility] [address] [id number] [place] [address]- 6158 Nov, [facility] [address] [id number] [place] [address]- 1964 Oct, [facility] [place] [facility] [address] [id number] [place] [address] Oct, [facility] [address] [id number] [place] [address] Oct, [facility] [place] [facility] [address] [id number] [place] [address] Oct, [facility] [address] [id number] [place] [address] Sep, [facility] [address] [id number] [place] [address] Sep, [facility] [address] [id number] [place] [address] Sep, [facility] [address] [id number] [place] [address] Sep, [facility] [address] [id number] [place] [address] Aug, [facility] [address] [id number] [place] [address] Aug, [facility] [address] [id number] [place] [address] Jul, [facility] [address] [id number] [place] [address] Jul, [facility] [place] [facility] [address] [id number] [place] [address] Jul, [facility] [place] [facility] [address] [id number] [place] [address] Jul, [facility] [place] [facility] [address] [id number] [place] [address] Jul, [facility] [place] [facility] [address] [id number] [place] [address] Jul, [facility] [place] [facility] [address] [id number] [place] [address] Jun, [facility] [place] [facility] [address] [id number] [place] [address] Jun, [facility] [place] [facility] [address] [id number] [place] [address], [place] [address] Jun, [facility] [place] [facility] [address] [id number] [place] [address] Jun, [facility] [place] [facility] [address] [id number] [place] [address], [place] [address]- [address] Jun, [facility] [place] [facility] [address] [id number] [place] [address] May, [facility] [place] [facility] [address] [id number], [place] [address] May, [facility] [place] [facility] [address] [id number] [place] [address]- [address] May, [facility] [place] [facility] [address] [facility] [id number], [place] [address] May, [facility] [place] [facility] [address] [id number], [place] [address] May, [facility] [place] [facility] [address] [id number], [place] [address] May, [facility] [place] [facility] [address] [id number] [place] [address] May, [facility] [place] [facility] [address] [facility] [id number], [place] [address] May, [facility] [place] [facility] [address] [facility] [id number] Mar, [facility] [place] [facility] [address] [id number] [place] [address] Mar, [facility] [place] [facility] [address] [id number] [place] [address] Mar, [facility] [place] [facility] [address] [id number] [place] [address] Feb, [facility] [place] [facility] [address] [id number] [place] [address] Feb, [facility] [place] [facility] [address] [id number] [place] [address] Feb, [facility] [place] [facility] [address] [id number] [place] [address] Feb, [facility] [place] [facility] [address] [id number] [place] [address] Jan, [facility] [place] [facility] [address] [id number] [place] [address] Jan, [facility] [place] [facility] [address] [id number] [place] [address] Jan, [facility] [place] [facility] [address] [id number] [place] [address] December, [facility] [place] [facility] [address] [id number] [place] [address] Nov, [facility] [place] [facility] [address] [id number] [place] [address] Oct, [facility] [place] [facility] [address] [id number] [place] [address] Oct, [facility] [place] [facility] [address] [id number] [place] [address] Oct, [facility] [place] [facility] [address] [id number] [place] [address] Oct, [facility] [place] [facility] [address] [id number] [place] [address] Aug, [facility] [place] [facility] [address] [id number] [place] [address] Aug, [facility] [address] [id number] [place] [address] Aug, [facility] [address] [id number] [place] [address] Aug, [facility] [address] [id number] [place] [address] Aug, [facility] [address] [id number] [place] [address] Aug, [facility] [address] [id number] [place] [address] Aug, [facility] [address] [id number] [place] [address] Aug, [facility] [address] [id number] [place] [address] Jul, [facility] [address] [id number] [place] [address] Jun, [facility] [address] [id number] [place] [address] Jun, [facility] [address] [id number] [place] [address] 31 Jul, 2010 [facility] [address] [id number] [place] [address] Jul, [facility] [address] [id number] [place] [address] Jul, [facility] [place] [facility] [address] [id number] [place] [address] 14 Jul, 2010 [facility] [address] [id number] [place] [address] 14 Jul, 2010 [facility] [address] [id number], [place] [address] Jun, [facility] [id number] [address] [address] May, [facility] [id number] [address] Mar, [facility] [id number] [address] Oct, [facility] [address] [facility] [id number], [place] [address] Aug, [facility] [id number] [address] [address] Jul, [facility] [address] [id number] [address] Jul, [facility] [id number] Jun, [facility] [id number], [place] [address] Jun, [facility] [id number] [address] [address] May, [facility] [id number] [address] May, [facility] [id number] [place] [address] Mar, [facility] [id number] [place] [address] Mar, [facility] [address] [id number] [address] [address] Oct, IMMUNIZATIONS No Known Immunizations SOCIAL HISTORY Never Assessed REASON FOR VISIT KATYA lew/Leonor COTE, ENMANUEL PLAN OF CARE Activity Details Follow Up 2 Months Reason: VITAL SIGNS Height 68 in 2018-03-01 Weight 201.3 lbs 2018-03-01 Heart Rate 84 bpm 2018-03-01 Respiratory Rate 18 2018-03-01 BMI 30.6 kg/m2 2018-03-01 Blood pressure systolic 124 mmHg 2018-03-01 Blood pressure diastolic 78 mmHg 2018-03-01 MEDICATIONS Medication Instructions Dosage Frequency Start Date End Date Duration Status Effexor XR 37.5 MG Orally Once a day 1 capsule with food 24h Jan, 30 days Active Protonix 40 MG Orally Once a day 1 tablet 24h 30 Active Xanax 1 mg Orally three times a day 1 tablet 8h 30 days Active Trazodone HCl 100 MG Orally Once a day 1 tablet at bedtime 24h Feb, Active RESULTS No Results PROCEDURES No Known procedures INSTRUCTIONS MEDICATIONS ADMINISTERED No Known Medications MEDICAL (GENERAL) HISTORY Type Description Date Medical History severe manic depression Medical History Anxiety disorder Medical History bipolar disorder Medical History hypertension Medical History hyperlipidemia Medical History chronic pain Medical History chronic sleep disorder Medical History degenerative disease lumbosacral spine Medical History fibromyalgia Medical History rheumatoid arthritis Medical History acid reflux Medical History stomach ulcers Medical History PTSD Medical History Gastritis, Medical History Bronchitis Medical History Ulcers Surgical History carpal tunnel release- bilateral- Dr Marquez Surgical History Upper Lateral Release- Tennis Elbow- Dr Marquez Surgical History rotator cuff tear repair on left and right shoulder-- done at different times (2 years apart) - Dr Marquez Surgical History Spinal disc replacement L1- L5 - Dr Muhammad ([place]) Surgical History appendectomy 1983 Surgical History hysterectomy 1993 Surgical History dilatation and curettage Surgical History heart cath- Dr Shaw [address] Meza bowel and intestines 2015 Hospitalization History Hospitalization for surgery only
--- OUTSIDE RECORDS SUMMARY | 2018-04-23 11:30 | XMS REPORT ---
Author Author RAUL VASQUEZ [facility] Address [address] [place] [address] Care Team Providers [employer] Consultant Name Role Phone JOSEVASQUEZ ZUNIGA Unavailable PROBLEMS Type Condition ICD9-CM Code APU55-KM Code Onset Dates Condition Status SNOMED Code Problem Major depressive disorder, recurrent episode, moderate F33.1 Active 778061025 Problem PTSD (post-traumatic stress disorder) F43.10 Active 25104535 Problem Cannabis abuse F12.10 Active 94260117 Problem GERD with esophagitis K21.0 Active 121457753 Problem Spasm of muscle 728.85 Active 10436422 Problem Cocaine use disorder, moderate, in sustained remission F14.21 Active 35675623 Problem Diarrhea 787.91 Active 91232096 Problem Alcohol use disorder, mild, 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 Active 53287374 Problem Tobacco use Z72.0 Active 389906733 Problem Methamphetamine use disorder, severe, 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2 Active 128713492 Problem Insomnia 780.52 Active 473083740 Problem Generalized anxiety disorder F41.1 Active 49234719 ALLERGIES No Information ENCOUNTERS Encounter Location Date Diagnosis [facility] [address] [facility] [id number] [id number] 13 Apr, 2018 [facility] [address] [id number] [address] Mar, [facility] [address] [facility] [id number] [id number] Mar, Encounter for dental exam and cleaning w/o abnormal findings Z01.20 [place] [address] [id number] [address] Mar, [place] [address] [place] [address]236- 9349 Feb, Cocaine use disorder, moderate, in sustained [...] Major depressive disorder, recurrent episode, moderate F33.1 [place] [address] [id number] [address] Jan, Cocaine use disorder, moderate, in sustained remission F14.21 [place] [address] [place] [address]4479- 4123 Jan, Cocaine use disorder, moderate, in sustained [...] Major depressive disorder, recurrent episode, moderate F33.1 [place] [address] [place] [address] 06965- 8362 Jan, Dysuria R30.0 and GERD with esophagitis K21.0 [place] [address] [address] December, Major depressive disorder, recurrent episode, moderate F33.1 [facility] [address] [place] [address] 09548- 4918 December, [facility] [id number] [place] [address] 59565- 6274 December, Major depressive disorder, recurrent episode, moderate [...] sustained remission F10.11 and Tobacco use Z72.0 [facility] [id number] [place] [address] 40793- 7400 Nov, [facility] [address] [place] [id number] [place] [address] Nov, [facility] [id number] [place] [address] 59041- 8016 Nov, Wellness examination Z00.00 ; Encounter for immunization Z23 ; Screening for osteoporosis Z13.820 ; Screening for breast cancer Z12.31 and Left breast lump N63.20 [facility] [address] [place] [id number] Oct, Dental examination Z01.20 [facility] [address] [place] [address] 92622- 0324 Oct, [facility] [address] [place] [address] 80595- 7204 Oct, [facility] [id number] [place] [address] 54374- 0796 16 Sep, 2017 [facility] [id number] [place] [address] 57970- 2988 15 Sep, 2017 [facility] [id number] [place] [address] 17146- 4339 14 Sep, 2017 Left otitis media with effusion H65.92 ; Acute suppurative otitis media of right ear without spontaneous rupture of tympanic membrane, recurrence not specified H66.001 ; Dizziness R42 and Fatigue 780.79 [facility] [id number] [place] [address] 57530- 3748 Aug, Major depressive disorder, recurrent episode, moderate [...] sustained remission F10.11 and Tobacco use Z72.0 [facility] [id number] [place] [address]138 [address]6742 Aug, Ingrown right big toenail L60.0 [place] [id number] [place] [address] 17722- 9903 Aug, [facility] [id number] [place] [address] 08497- 3740 Aug, PTSD (post-traumatic stress disorder) F43.10 [place] [id number] [place] [address] 16680- 9842 Aug, Major depressive disorder, recurrent episode, moderate F33.1 ; Generalized anxiety disorder F41.1 and Cannabis abuse F12.10 [facility] [id number] [place] [address] 17369- 5008 Jul, [facility] [id number] [place] [address] 00130- 0086 Jul, [place] [address] [address] Jul, [place] [id number] [place] [address] 50608- 9607 Jul, Major depressive disorder, recurrent episode, moderate F33.1 ; Generalized anxiety disorder F41.1 and Cannabis abuse F12.10 [place] [address] [address] 8208 Jul, [place] [id number] [place] [address] 41164- 3053 Jul, [place] [id number] [place] [address] 07639- 8032 Jul, Hyperlipidemia 272.4 [place] [id number] [place] [address] 860209- 2547 Jul, PTSD (post-traumatic stress disorder) F43.10 [place] [id number] [place] [address] 47092- 4726 Jul, Tobacco use Z72.0 ; Alcohol use [...] anxiety disorder F41.1 and Cannabis abuse F12.10 [place] [address] [place] [address] 31392- 4846 Jul, [place] [address] [place] [address] 84511- 6343 Jul, Dysuria R30.0 and Mixed hyperlipidemia E78.2 [address] [place] [address] 86033- 4216 Jun, Major depressive disorder, recurrent episode, moderate F33.1 ; Generalized anxiety disorder F41.1 and Cannabis abuse F12.10 [place] [address] [place] [address] 38328- 7554 Jun, [address] [place] [address] 22897- 1662 Jun, Generalized anxiety disorder F41.1 ; Major depressive disorder, recurrent episode, moderate F33.1 ; PTSD (post-traumatic stress disorder) F43.10 ; Opioid use disorder, moderate, in sustained remission F11.21 ; Cannabis abuse F12.10 ; Alcohol use disorder, mild, 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 ; Methamphetamine use disorder, severe, 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 ; Cocaine use disorder, moderate, in sustained remission F14.21 and Tobacco use Z72.[address] [address]24- 0793 Jun, Major depressive disorder, recurrent episode, moderate F33.1 ; Generalized anxiety disorder F41.1 and Cannabis abuse F12.[address] 41928- 6339 Jun, [place] [id number] [place] [address] 02887- 5299 Jun, [address] 77220- 4502 Jun, Major depressive disorder, recurrent episode, moderate F33.1 ; Generalized anxiety disorder F41.1 and Cannabis abuse F12.10 [facility] [address] [id number] Mar, Dental examination Z01.20 [facility] [id number] [place] [address] [id number] Feb, Dental examination Z01.20 [place] [id number] [place] [address] 49584- 6996 Mar, [place] [id number] [place] [address] 09770- 8088 Mar, [address] 20340- 9426 Feb, Hyperlipidemia 272.4 and Prediabetes 790.29 [id number] [place] [address] 62177- 2751 Feb, Fatigue 780.79 and Hyperlipidemia 272.[address] [id number] [place] [address]- 3449 Feb, Lumbago 724.2 ; Hyperlipidemia 272.4 ; Insomnia 780[address] [facility] [address] [place] [address] Nov, [facility] [address] [place] [address]- 9062 Nov, [facility] [address], [place] [address]39 Mar, [facility] [id number] [place] [address], [place] [address]- 2680 Mar, [facility] [address] [id number], [place] [address] Jan, [facility] [address] [id number], [place] [address] 4612 Jan, [facility] [address] [place] [address] 2969 December, [facility] [address] [place] [address] 1200 December, [facility] [address] [place] [address] 4750 Nov, [facility] [address], [place] [address]- 6850 Nov, [facility] [address], [place] [address]- 6683 Nov, [facility] [address], [place] [address]- [address]34 Nov, [facility] [address], [place] [address]- 9480 Nov, [facility] [id number] [address]- 4848 Nov, [facility] [place] [facility] [address] [id number] [place] [address]- 2120 31 Oct, 2013 [facility] [place] [facility] [address] [id number] [place] [address]33 31 Oct, 2013 [facility] [place] [facility] [address] [id number] [place] [address]- 5436 20 Oct, 2013 [facility] [place] [facility] [address] [id number] [place] [address]- 5866 20 Oct, 2013 [facility] [place] [facility] [address] [id number] [place] [address]- 1553 Oct, [facility] [place] [facility] [address] [id number] [place] [address]- 3600 Oct, [facility] [place] [facility] [address] [id number] [place] [address]- 8609 Oct, [facility] [place] [facility] [address] [id number] [place] [address]- 1498 Oct, [facility] [place] [facility] [address] [id number] [place] [address]- 6235 Oct, [facility] [place] [facility] [address] [id number] [place] [address]- 2328 Oct, [facility] [place] [facility] [address] [id number] [place] [address]- 9014 Oct, [facility] [place] [facility] [address] [id number] [place] [address]- 1579 Oct, [facility] [place] [facility] [address] [id number] [place] [address]- 3365 Oct, [facility] [place] [facility] [address] [id number] [place] [address]- 7218 Sep, [facility] [place] [facility] [address] [id number] [place] [address]- 7613 Sep, [facility] [place] [facility] [address] [id number] [place] [address]- 3806 20 Sep, 2013 [facility] [place] [facility] [address] [id number] [place] [address]- 0735 20 Sep, 2013 [facility] [place] [facility] [address] [id number] [place] [address]- 2426 20 Sep, 2013 [facility] [place] [facility] [address] [facility] [id number] [place] [address]- 1204 20 Sep, 2013 [facility] [place] [facility] [address] [id number] [place] [address]- 6650 18 Sep, 2013 [facility] [place] [facility] [address] [id number] [place] [address]- 8615 18 Sep, 2013 [facility] [place] [facility] [address] [facility] [id number] [place] [address]- 2908 14 Sep, 2013 [facility] [place] [facility] [address] [facility] [id number] [place] [address]- 4661 14 Sep, 2013 [facility] [place] [facility] [address] [facility] [id number] [place] [address]- 8015 14 Sep, 2013 [facility] [place] [facility] [address] [facility] [id number] [place] [address]- 9398 14 Sep, 2013 [facility] [place] [facility] [address] [facility] [id number] [place] [address]- 4395 14 Sep, 2013 [facility] [place] [facility] [address] [facility] [id number] [place] [address]- 9776 14 Sep, 2013 [facility] [place] [facility] [address] [facility] [id number] [place] [address]- 8118 13 Sep, 2013 [facility] [place] [facility] [address] [facility] [id number] [place] [address]- 8758 13 Sep, 2013 [facility] [place] [facility] [address] [facility] [id number] [place] [address]- 7408 12 Sep, 2013 [facility] [place] [facility] [address] [facility] [id number] [place] [address]- 6919 Sep, [facility] [address] [id number] [place] [address]- 5263 Sep, [facility] [place] [facility] [address] [id number] [place] [address]- 2759 Sep, [facility] [place] [facility] [address] [id number] [place] [address]- 4844 Aug, [facility] [place] [facility] [address] [id number] [place] [address]- 1154 Aug, [facility] [place] [facility] [address] [id number] [place] [address]- 1516 Aug, [facility] [place] [facility] [address] [id number] [place] [address]- 8644 Aug, [facility] [place] [facility] [address] [id number] [place] [address]- 7517 Aug, [facility] [place] [facility] [address] [id number] [place] [address]- 0821 Jul, [facility] [place] [facility] [address] [id number] [place] [address]- 8752 Jul, [facility] [place] [facility] [address] [id number] [place] [address]- 2556 Jul, [facility] [place] [facility] [address] [id number], [place] [address]- 0507 Jul, [facility] [place] [facility] [address] [id number], [place] [address]- 8522 Jul, [facility] [place] [facility] [address] [id number] [place] [address]- 3985 Jul, [facility] [place] [facility] [address] [id number], [place] [address]- 7893 Jul, [facility] [place] [facility] [address] [id number] [place] [address]- 9673 Jul, [facility] [place] [facility] [address] [id number] [place] [address]- 2569 Jul, [facility] [place] [facility] [address] [id number] [place] [address]- 0434 Jun, [facility] [place] [facility] [address] [id number] [place] [address]- 1694 Jun, [facility] [place] [facility] [address] [id number] [place] [address]- 3738 Jun, [facility] [place] [facility] [address] [id number] [place] [address]- 4924 Jun, [facility] [place] [facility] [address] [id number] [place] [address]- 3741 Jun, [facility] [place] [facility] [address] [id number] [place] [address]- 9005 Jun, [facility] [place] [facility] [address] [id number] [place] [address]- 4742 Jun, [facility] [place] [facility] [address] [id number] [place] [address]- 0672 Jun, [facility] [place] [facility] [address] [id number] [place] [address]- 4029 Jun, [facility] [place] [facility] [address] [facility] [id number] [place] [address]- 7814 Jun, [facility] [place] [facility] [address] [id number] [place] [address]- 5537 May, [facility] [place] [facility] [address] [id number], [place] [address]- 4754 28 May, 2013 [facility] [place] [facility] [address] [id number] [place] [address]- 6242 May, [facility] [place] [facility] [address] [id number] [place] [address]- 6408 22 May, 2013 [facility] [place] [facility] [address] [id number][place] [address]- 0526 16 May, 2013 [facility] [place] [facility] [address] [id number] [place] [address]- 7510 May, [facility] [place] [facility] [address] [id number] [place] [address]- 8718 May, [facility] [place] [facility] [address] [id number] [place] [address]- 5545 May, [facility] [place] [facility] [address] [id number] [place] [address]- 9516 May, [facility] [place] [facility] [address] [id number] [place] [address]- 0271 Apr, [facility] [place] [facility] [address] [id number] [place] [address]- 1351 Apr, [facility] [place] [facility] [address] [id number] [place] [address]- 9744 Apr, [facility] [place] [facility] [address] [id number] [place] [address]- 4123 Apr, [facility] [place] [facility] [address] [id number] [place] [address]- 4871 Mar, [facility] [place] [facility] [address] [id number] [place] [address]- 4461 Mar, [facility] [place] [facility] [address] [id number] [place] [address]- 9344 Mar, [facility] [place] [facility] [address] [id number] [place] [address]- 5974 Mar, [facility] [place] [facility] [address] [id number] [place] [address]- 8439 Mar, [facility] [place] [facility] [address] [id number] [place] [address]- 4712 Mar, [facility] [place] [facility] [address] [id number] [place] [address]- 4716 Mar, [facility] [place] [facility] [address] [id number] [place] [address]- 9787 Feb, [facility] [address] [id number] [place] [address]- 8938 Feb, [facility] [place] [facility] [address] [id number] [place] [address]- 4024 Feb, [facility] [place] [facility] [address] [id number] [place] [address]- 1300 Feb, [facility] [place] [facility] [address] [id number] [place] [address]- 0766 Feb, [facility] [place] [facility] [address] [id number] [place] [address]- 2123 Feb, [facility] [place] [facility] [address] [id number] [place] [address]- 7273 Feb, [facility] [address] [id number] [place] [address]- 0976 Feb, [facility] [place] [facility] [address] [id number] [place] [address]- 3321 Feb, [facility] [place] [facility] [address] [id number] [place] [address]- 3073 Feb, [facility] [place] [facility] [address] [id number] [place] [address]- 1735 Feb, [facility] [place] [facility] [address] [id number] [place] [address]- 0627 Jan, [facility] [place] [facility] [address] [id number] [place] [address]- 8204 Jan, [facility] [place] [facility] [address] [id number] [place] [address]- 1349 December, [facility] [place] [facility] [address] [id number] [place] [address]- 5278 December, [facility] [place] [facility] [address] [id number] [place] [address]- 8374 Nov, [facility] [place] [facility] [address] [id number] [place] [address]- 1693 Nov, [facility] [address] [id number] [place] [address]- 7160 Oct, [facility] [place] [facility] [address] [id number] [place] [address]- 8816 Oct, [facility] [address] [id number] [place] [address]- 6597 Oct, [facility] [place] [facility] [address] [id number] [place] [address]- 3641 Oct, [facility] [address] [id number] [place] [address]- 6559 Sep, [facility] [address] [id number] [place] [address]- 0476 Sep, [facility] [address] [id number] [place] [address]- 8327 Sep, [facility] [address] [id number] [place] [address]- 0350 Sep, [facility] [address] [id number] [place] [address]- 4517 Aug, [facility] [address] [id number] [place] [address] Aug, [facility] [address] [id number] [place] [address] Jul, [facility] [address] [id number] [place] [address] Jul, [facility] [place] [facility] [address] [id number] [place] [address]46 Jul, [facility] [place] [facility] [address] [id number] [place] [address] Jul, [facility] [place] [facility] [address] [id number] [place] [address] Jul, [facility] [place] [facility] [address] [id number] [place] [address] Jul, [facility] [place] [facility] [address] [id number] [place] [address] Jun, [facility] [place] [facility] [address] [id number] [place] [address] Jun, [facility] [place] [facility] [address] [id number] [place] [address], [place] [address]- [address] Jun, [facility] [place] [facility] [address] [id number] [place] [address] Jun, [facility] [place] [facility] [address] [id number] [place] [address], [place] [address]- [address] Jun, [facility] [place] [facility] [address] [id number] [place] [address] May, [facility] [place] [facility] [address] [id number], [place] [address] May, [facility] [place] [facility] [address] [id number] [place] [address] May, [facility] [place] [facility] [address] [facility] [id number], [place] [address] May, [facility] [place] [facility] [address] [id number], [place] [address] May, [facility] [place] [facility] [address] [id number], [place] [address] May, [facility] [place] [facility] [address] [id number] [place] [address]- [address] May, [facility] [place] [facility] [address] [facility] [id number], [place] [address] May, [facility] [place] [facility] [address] [facility] [id number][place] [address] Mar, [facility] [place] [facility] [address] [id number] [place] [address]- [address] Mar, [facility] [place] [facility] [address] [id number] [place] [address]- [address] Mar, [facility] [place] [facility] [address] [id number] [place] [address]- [address] Feb, [facility] [place] [facility] [address] [id number] [place] [address] Feb, [facility] [place] [facility] [address] [id number] [place] [address] Feb, [facility] [place] [facility] [address] [id number] [place] [address]- [address] Feb, [facility] [place] [facility] [address] [id number] [place] [address] Jan, [facility] [place] [facility] [address] [id number] [place] [address]- [address] Jan, [facility] [place] [facility] [address] [id number] [place] [address] Jan, [facility] [place] [facility] [address] [id number] [place] [address]- [address] December, [facility] [place] [facility] [address] [id number] [place] [address] Nov, [facility] [place] [facility] [address] [id number] [place] [address] Oct, [facility] [place] [facility] [address] [id number] [place] [address] Oct, [facility] [place] [facility] [address] [id number] [place] [address]- [address] Oct, [facility] [place] [facility] [address] [id number] [place] [address]- [address] Oct, [facility] [place] [facility] [address] [id number] [place] [address] Aug, [facility] [place] [facility] [address] [id number] [place] [address] Aug, [facility] [address] [id number] [place] [address] Aug, [facility] [address] [id number] [place] [address]- [address] Aug, [facility] [address] [id number] [place] [address] Aug, [facility] [address] [id number] [place] [address] Aug, [facility] [address] [id number] [place] [address] Aug, [facility] [facility] [address] [id number] [place] [address] Aug, [facility] [address] [id number] [place] [address] Jul, [facility] [address] [id number] [place] [address] Jun, [facility] [address] [id number] [place] [address] Jun, [facility] [address] [id number] [place] [address] 31 Jul, 2010 [facility] [address] [id number] [place] [address] Jul, [facility] [address] [id number] [place] [address] Jul, [facility] [place] [facility] [address] [id number] [place] [address] 14 Jul, 2010 [facility] [address] [id number] [place] [address] 14 Jul, 2010 [facility] [address] [id number] [address] Jun, [facility] [address] [facility] [id number][place] [address] May, [facility] [address] [facility] [id number], [place] [address] Mar, [facility] [id number] [address] Oct, [facility] [address] [facility] [id number] [address] Aug, [facility] [address] [facility] [id number] Jul, [facility] [id number] [place] [address] Jul, [facility] [id number] [place] [address] Jun, [facility] [id number] [place] [address] Jun, [facility] [id number] [place] [address] May, [facility] [id number] [address] May, [facility] [id number], [place] [address] Mar, [facility] [id number], [place] [address] Mar, [facility] [id number], [place] [address] Oct, IMMUNIZATIONS No Known Immunizations SOCIAL HISTORY Never Assessed REASON FOR VISIT xanax refill PLAN OF CARE VITAL SIGNS MEDICATIONS Medication Instructions Dosage Frequency Start Date End Date Duration Status Xanax 1 mg Orally three times a day 1 tablet 8h 30 days Active RESULTS No Results PROCEDURES No Known [...] disc replacement L1- L5 - Dr Muhammad ([place]) Surgical History appendectomy 1983 Surgical History hysterectomy 1993 Surgical History dilatation and curettage Surgical History heart cath- Dr Shaw [address] Meza bowel and intestines seperated 2015 Hospitalization History Hospitalization for surgery only
--- OUTSIDE RECORDS SUMMARY | 2018-04-23 11:30 | XMS REPORT ---
Author Author RAUL VASQUEZ Organization 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 Helper Name Role Phone JOSEVASQUEZ ZUNIGA Unavailable PROBLEMS Type Condition ICD9-CM Code YVC08-YE Code Onset Dates Condition Status SNOMED Code Problem Major depressive disorder, recurrent episode, moderate F33.1 Active 457972947 Problem PTSD (post-traumatic stress disorder) F43.10 Active 79758830 Problem Cannabis abuse F12.10 Active 14953292 Problem GERD with esophagitis K21.0 Active 247150737 Problem Spasm of muscle 728.85 Active 11341979 Problem Cocaine use disorder, moderate, in sustained remission F14.21 Active 64963427 Problem Diarrhea 787.91 Active 04211315 Problem Alcohol use disorder, mild, 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 Active 49159446 Problem Tobacco use Z72.0 Active 448907598 Problem Methamphetamine use disorder, severe, 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2 Active 937229318 Problem Insomnia 780.52 Active 776256537 Problem Generalized anxiety disorder F41.1 Active 36804191 ALLERGIES Substance Reaction Event Type Date Status Pravastatin Sodium itching Drug Allergy Jan, Active Duragesic-100 vomiting- Patches only Drug Allergy Jan, Active ENCOUNTERS Encounter Location Date Diagnosis [facility] [id number] [address] 14 Apr, 2018 [facility] [address] [id number] [id number] 13 Apr, 2018 [facility] [id number] [id number] Mar, Encounter for dental exam and cleaning w/o abnormal findings Z01.20 [address] [place] [id number] [place] [address]12- 6197 Mar, [address] [place] [address] [address] Feb, Cocaine use disorder, moderate, in sustained [...] Major depressive disorder, recurrent episode, moderate F33.1 [address] [id number] [address] Jan, Cocaine use disorder, moderate, in sustained remission F14.21 [address] [place] [address], [place] [address] Jan, Cocaine use disorder, moderate, in sustained [...] Major depressive disorder, recurrent episode, moderate F33.1 [address] [address] [address] Jan, Dysuria R30.0 and GERD with esophagitis K21.0 [address] [address] December, Major depressive disorder, recurrent episode, moderate F33.1 [facility] [id number] [place] [address]- [address]279 December, [facility] [id number] [place] [address] 94237- 6969 December, Major depressive disorder, recurrent episode, moderate [...] sustained remission F10.11 and Tobacco use Z72.0 [address] [id number] [place] [address] 89841- 0632 Nov, [facility] [address] [place] [id number] [place] [address] Nov, [facility] [id number] [place] [address] 12332- 5082 Nov, Wellness examination Z00.00 ; Encounter for immunization Z23 ; Screening for osteoporosis Z13.820 ; Screening for breast cancer Z12.31 and Left breast lump N63.20 [facility] [id number] [place] [id number] Oct, Dental examination Z01.20 [facility] [id number] [place] [address]77- 4425 Oct, [facility] [id number] [place] [address]- 3284 Oct, [facility] [id number] [place] [address]- 1694 Sep, [facility] [id number] [place] [address]- 4282 Sep, [facility] [id number] [place] [address] 36755- 0353 14 Sep, 2017 Left otitis media with effusion H65.92 ; Acute suppurative otitis media of right ear without spontaneous rupture of tympanic membrane, recurrence not specified H66.001 ; Dizziness R42 and Fatigue 780[address]79 [facility] [id number] [place] [address] 80184- 3377 Aug, Major depressive disorder, recurrent episode, moderate [...] sustained remission F10.11 and Tobacco use Z72.0 [facility] [id number] [place] [address]8381 Aug, Ingrown right big toenail L60.0 [facility] [id number] [place] [address] 39381- 7454 Aug, [address] [id number] [place] [address] 17869- 3568 Aug, PTSD (post-traumatic stress disorder) F43.10 [address] [id number] [place] [address] 71814- 9985 Aug, Major depressive disorder, recurrent episode, moderate F33.1 ; Generalized anxiety disorder F41.1 and Cannabis abuse F12.10 [facility] [id number] [place] [address] 35740- 7636 Jul, [address] [address] [address] 8878 Jul, [place] [id number] [place] [address] 50164- 5862 Jul, [address] [address] [place] [address] Jul, Major depressive disorder, recurrent episode, moderate F33.1 ; Generalized anxiety disorder F41.1 and Cannabis abuse F12.10 [address] [id number] [place] [address] 47589- 0844 Jul, [address] [id number] [place] [address] 63835- 9174 Jul, [place] [id number] [place] [address] 209046- 2042 Jul, Hyperlipidemia 272.4 [id number] [place] [address] 533881- 4336 Jul, PTSD (post-traumatic stress disorder) F43.10 [address] [place] [id number] [place] [address] 71335- 2816 Jul, Tobacco use Z72.0 ; Alcohol use [...] anxiety disorder F41.1 and Cannabis abuse F12.10 [address] [place] [address], [place] [address] Jul, [place] [id number] [place] [address] 31823- 1588 Jul, Dysuria R30.0 and Mixed hyperlipidemia E78.2 [id number] [place] [address] 94654- 3017 Jun, Major depressive disorder, recurrent episode, moderate F33.1 ; Generalized anxiety disorder F41.1 and Cannabis abuse F12.10 [address] [address] [address] Jun, [place] [id number] [address] 8823 Jun, Generalized anxiety disorder F41.1 ; Major depressive disorder, recurrent episode, moderate F33.1 ; PTSD (post-traumatic stress disorder) F43.10 ; Opioid use disorder, moderate, in sustained remission F11.21 ; Cannabis abuse F12.10 ; Alcohol use disorder, mild, 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 ; Methamphetamine use disorder, severe, 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 [id number] [place] [address] 99142- 3714 Jun, Major depressive disorder, recurrent episode, moderate F33.1 ; Generalized anxiety disorder F41.1 and Cannabis abuse F12.10 [place] [id number] [place] [address] 82710- 3914 Jun, [place] [id number] [place] [address] 67501- 0204 Jun, [facility] [id number] [place] [address] 94540- 6112 Jun, Major depressive disorder, recurrent episode, moderate F33.1 ; Generalized anxiety disorder F41.1 and Cannabis abuse F12.10 [facility] [id number] [place] [address] [id number] Mar, Dental examination Z01.20 [facility] [id number] [place] [address] [id number] Feb, Dental examination Z01.20 [facility] [id number] [place] [address] 65954- 0584 Mar, [address] [address] Mar, [facility] [id number] [place] [address] 70225- 6305 Feb, Hyperlipidemia 272.4 and Prediabetes 790.[address] [place] [address]- 2345 Feb, Fatigue 780.[address] [facility] [id number] [place] [address] 43745- 9792 Feb, Lumbago 724.2 ; Hyperlipidemia 272.4 ; Insomnia 780.[address] [facility] [id number], [place] [address] Nov, [facility] [id number] [place] [address] 84018- 9195 Nov, [facility] [id number] [place] [address] 70775- 368[address] Mar, [facility] [id number] [place] [address] 73746- 3916 Mar, [facility] [id number] [place] [address] 04802- 4175 Jan, [facility] [id number] [address]270 Jan, [facility] [id number] [place] [address] 25607- 8817 December, [facility] [id number], [place] [address] December, [facility] [address], [place] [address] 8641 Nov, [facility] [address], [place] [address]- 6277 Nov, [facility] [id number], [place] [address]- 2107 Nov, [facility] [id number], [place] [address] Nov, [facility] [address], [place] [address]- 9027 Nov, [facility] [place] [facility] [address] [id number] [place] [address]- 9449 28 Nov, 2013 [facility] [place] [facility] [address] [id number] [place] [address]- 4756 Oct, [facility] [place] [facility] [address] [id number] [place] [address]- 1576 Oct, [facility] [place] [facility] [address] [id number] [place] [address]- 5336 Oct, [facility] [place] [facility] [address] [id number] [place] [address]- 9863 Oct, [facility] [place] [facility] [address] [id number] [place] [address]- 0523 Oct, [facility] [place] [facility] [address] [id number] [place] [address]- 6509 Oct, [facility] [place] [facility] [address] [id number] [place] [address]- 1963 Oct, [facility] [place] [facility] [address] [id number] [place] [address]- 6781 Oct, [facility] [place] [facility] [address] [id number] [place] [address]- 8654 Oct, [facility] [place] [facility] [address] [id number] [place] [address]- 7356 Oct, [facility] [place] [facility] [address] [id number] [place] [address]- 6919 04 Oct, 2013 [facility] [place] [facility] [address] [id number] [place] [address]- 2205 Oct, [facility] [place] [facility] [address] [id number] [place] [address]- 9326 Oct, [facility] [place] [facility] [address] [id number] [place] [address]- 5526 24 Sep, 2013 [facility] [place] [facility] [address] [id number] [place] [address]- 1350 24 Sep, 2013 [facility] [place] [facility] [address] [facility] [id number] [place] [address]- 6243 20 Sep, 2013 [facility] [place] [facility] [address] [facility] [id number] [place] [address]- 3396 20 Sep, 2013 [facility] [place] [facility] [address] [facility] [id number] [place] [address]- 9296 20 Sep, 2013 [facility] [place] [facility] [address] [facility] [id number] [place] [address]- 0688 20 Sep, 2013 [facility] [place] [facility] [address] [facility] [id number] [place] [address]- 1552 18 Sep, 2013 [facility] [place] [facility] [address] [facility] [id number] [place] [address]- 3216 18 Sep, 2013 [facility] [place] [facility] [id number] [place] [address]- 2904 14 Sep, 2013 [facility] [place] [facility] [address] [facility] [id number] [place] [address]- 9811 14 Sep, 2013 [facility] [place] [facility] [address] [facility] [id number] [place] [address]- 8125 14 Sep, 2013 [facility] [place] [facility] [address] [facility] [id number] [place] [address]- 7587 14 Sep, 2013 [facility] [place] [facility] [address] [facility] [id number] [place] [address]- 4266 14 Sep, 2013 [facility] [place] [facility] [address] [facility] [id number] [place] [address]- 2542 14 Sep, 2013 [facility] [place] [facility] [address] [facility] [id number] [place] [address]- 1173 13 Sep, 2013 [facility] [place] [facility] [address] [facility] [id number] [place] [address]- 2549 13 Sep, 2013 [facility] [place] [facility] [address] [facility] [id number] [place] [address]- 8716 Sep, [facility] [address] [id number] [place] [address]- 3606 Sep, [facility] [place] [facility] [address] [id number] [place] [address]- 4966 Sep, [facility] [place] [facility] [address] [id number] [place] 8980 Sep, [facility] [place] [facility] [address] [id number] [place] [address]- 1782 Aug, [facility] [place] [facility] [address] [id number] [place] [address]- 3115 Aug, [facility] [place] [facility] [address] [id number] [place] [address]- 3874 Aug, [facility] [place] [facility] [address] [id number] [place] [address]- 0853 Aug, [facility] [place] [facility] [address] [id number] [place] [address]- 1957 Aug, [facility] [place] [facility] [address] [id number] [place] [address]- 0657 Jul, [facility] [place] [facility] [address] [id number] [place] [address]- 1369 Jul, [facility] [place] [facility] [address] [id number] [address]- 0265 Jul, [facility] [place] [facility] [address] [id number], [place] [address]- 5008 Jul, [facility] [place] [facility] [address] [id number] [place] [address]- 8574 Jul, [facility] [place] [facility] [address] [id number] [place] [address]- 7711 Jul, [facility] [place] [facility] [address] [id number] [place] [address]208 Jul, [facility] [place] [facility] [address] [id number] [place] [address]- 5232 Jul, [facility] [place] [facility] [address] [id number] [place] [address]- 2166 Jul, [facility] [place] [facility] [address] [id number] [place] [address]- 8513 Jun, [facility] [place] [facility] [address] [id number] [place] [address]- 5580 Jun, [facility] [place] [facility] [address] [id number] [place] [address]- 8740 Jun, [facility] [place] [facility] [address] [id number] [place] [address]- 2493 Jun, [facility] [place] [facility] [address] [id number] [place] [address]- 4992 Jun, [facility] [place] [facility] [address] [id number] [place] [address]- 8474 Jun, [facility] [place] [facility] [address] [id number] [place] [address]- 5465 Jun, [facility] [place] [facility] [address] [id number] [place] [address]- 5468 Jun, [facility] [place] [facility] [address] [facility] [id number] [place] [address]- 3060 Jun, [facility] [place] [facility] [address] [id number] [place] [address]- 6242 Jun, [facility] [place] [facility] [address] [id number] [address]- 3650 May, [facility] [place] [facility] [address] [id number] [place] [address]- 5354 May, [facility] [place] [facility] [address] [id number] [place] [address]- 6011 May, [facility] [place] [facility] [address] [id number], [place] [address]- 4570 May, [facility] [place] [facility] [address] [id number] [place] [address]- 2825 May, [facility] [place] [facility] [address] [id number] [place] [address]- 3932 May, [facility] [place] [facility] [address] [id number] [place] [address]- 1960 May, [facility] [place] [facility] [address] [id number] [place] [address]- 1440 May, [facility] [place] [facility] [address] [id number] [place] [address]- 2398 May, [facility] [place] [facility] [address] [id number] [place] [address]- 6503 Apr, [facility] [place] [facility] [address] [id number] [place] [address]- 1103 Apr, [facility] [place] [facility] [address] [id number] [place] [address]- 2330 Apr, [facility] [place] [facility] [address] [id number] [place] [address]- 6350 Apr, [facility] [place] [facility] [address] [id number] [place] [address]- 9476 Mar, [facility] [place] [facility] [address] [id number] [place] [address]- 0369 Mar, [facility] [place] [facility] [address] [id number] [place] [address]- 8087 Mar, [facility] [place] [facility] [address] [id number] [place] [address]- 8938 Mar, [facility] [place] [facility] [address] [id number] [place] [address]- 4953 Mar, [facility] [place] [facility] [address] [id number] [place] [address]- 7694 Mar, [facility] [place] [facility] [address] [id number] [place] [address]- 2546 Mar, [facility] [place] [facility] [address] [id number] [place] [address]- 3408 Feb, [facility] [place] [facility] [address] [id number] [place] [address]- 9374 Feb, [facility] [place] [facility] [address] [id number] [place] [address]- 5334 Feb, [facility] [place] [facility] [address] [id number] [place] [address]- 2550 Feb, [facility] [place] [facility] [address] [id number] [place] [address]- 3361 Feb, [facility] [place] [facility] [address] [id number] [place] [address]- 3720 Feb, [facility] [place] [facility] [address] [id number] [place] [address]- 8982 Feb, [facility] [place] [facility] [address] [id number] [place] [address]- 9593 Feb, [facility] [place] [facility] [address] [id number] [place] [address]- 2409 Feb, [facility] [place] [facility] [address] [id number] [place] [address]- 6228 Feb, [facility] [place] [facility] [address] [id number] [place] [address]- 3335 Feb, [facility] [place] [facility] [address] [id number] [place] [address]- 6237 Jan, [facility] [place] [facility] [address] [id number] [place] [address]- 0312 Jan, [facility] [place] [facility] [address] [id number] [place] [address]- 1694 December, [facility] [place] [facility] [address] [id number] [place] 9620 December, [facility] [place] [facility] [address] [id number] [place] [address]- 0540 Nov, [facility] [address] [id number] [place] [address]- 2114 Nov, [facility] [place] [facility] [address] [id number] [place] [address]- 0210 Oct, [facility] [address] [id number] [place] [address]- 9598 Oct, [facility] [place] [facility] [address] [id number] [place] [address]- 8682 Oct, [facility] [address] [id number] [place] [address]- 9294 Oct, [facility] [address] [id number] [place] [address]- 9200 Sep, [facility] [address] [id number] [place] [address]- 6897 Sep, [facility] [address] [id number] [place] [address] Sep, [facility] [address] [id number] [place] [address] Sep, [facility] [address] [id number] [place] [address] Aug, [facility] [address] [id number] [place] [address] Aug, [facility] [address] [id number] [place] [address] Jul, [facility] [place] [facility] [address] [id number] [place] [address] Jul, [facility] [place] [facility] [address] [id number] [place] [address] Jul, [facility] [place] [facility] [address] [id number] [place] [address] Jul, [facility] [place] [facility] [address] [id number] [place] [address] Jul, [facility] [place] [facility] [address] [id number] [place] [address] Jul, [facility] [place] [facility] [address] [id number] [place] [address] Jun, [facility] [place] [facility] [address] [id number] [place] [address] Jun, [facility] [place] [facility] [address] [id number] [place] [address] Jun, [facility] [place] [facility] [address] [id number] [place] [address], [place] [address] Jun, [facility] [place] [facility] [address] [id number] [place] [address] Jun, [facility] [place] [facility] [address] [id number], [place] [address] May, [facility] [place] [facility] [address] [id number] [place] [address] May, [facility] [place] [facility] [address] [facility] [id number], [place] [address] May, [facility] [place] [facility] [address] [id number], [place] [address] May, [facility] [place] [facility] [address] [id number], [place] [address] May, [facility] [place] [facility] [address] [id number] [place] [address] May, [facility] [place] [facility] [address] [facility] [id number], [place] [address] May, [facility] [place] [facility] [address] [facility] [id number] [address] May, [facility] [place] [facility] [address] [id number] [place] [address] Mar, [facility] [place] [facility] [address] [id number] [place] [address] Mar, [facility] [place] [facility] [address] [id number] [place] [address] Mar, [facility] [place] [facility] [address] [id number] [place] [address] Feb, [facility] [place] [facility] [address] [id number] [place] [address] Feb, [facility] [place] [facility] [address] [id number] [place] [address] Feb, [facility] [place] [facility] [address] [id number] [place] [address] Feb, [facility] [place] [facility] [address] [id number] [place] [address] Jan, [facility] [place] [facility] [address] [id number] [place] [address] Jan, [facility] [place] [facility] [address] [id number] [place] [address] Jan, [facility] [place] [facility] [address] [id number] [place] [address] December, [facility] [place] [facility] [address] [id number] [place] [address] Nov, [facility] [place] [facility] [address] [id number] [place] [address] Oct, [facility] [place] [facility] [address] [id number] [place] [address] Oct, [facility] [place] [facility] [address] [id number] [place] [address] Oct, [facility] [place] [facility] [address] [id number] [place] [address] Oct, [facility] [place] [facility] [address] [id number] [place] [address] Aug, [facility] [address] [id number] [place] [address] Aug, [facility] [address] [id number] [place] [address] Aug, [facility] [address] [id number] [place] [address] Aug, [facility] [address] [id number] [place] [address] Aug, [facility] [address] [id number] [place] [address] Aug, [facility] [address] [id number] [place] [address] Aug, [facility] [address] [id number] [place] [address] Aug, [facility] [address] [id number] [place] [address] Jul, [facility] [address] [id number] [place] [address] Jun, [facility] [address] [id number] [place] [address] Jun, [facility] [address] [id number] [place] [address] 31 Jul, 2010 [facility] [address] [id number] [place] [address] Jul, [facility] [place] [facility] [address] [id number] [place] [address] Jul, [facility] [address] [id number] [place] [address] 14 Jul, 2010 [facility] [address] [id number], [place] [address] [address] [facility] [address] [facility] [id number], [place] [address] Jun, [facility] [address] [facility] [id number] [address] May, [facility] [id number] [address] Mar, [facility] [address] [facility] [id number] [address] Oct, [facility] [address] [facility] [id number] [address] Aug, [facility] [address] [id number] [address] Jul, [facility] [id number] [address] Jul, [facility] [id number] [address] Jun, [facility] [id number] [address] Jun, [facility] [id number] [address] May, [facility] [id number] [address] May, [facility] [address] [id number] [address] Mar, [facility] [address] [id number] [address] Mar, [facility] [id number] [address] Oct, IMMUNIZATIONS No Known Immunizations SOCIAL HISTORY Never Assessed REASON FOR VISIT KATYA lew/Leonor COTE, PDM PLAN OF CARE Activity Details Follow Up 6 Weeks, prn Reason: VITAL SIGNS Height 68 in 2018-01-11 Weight 200.1 lbs 2018-01-11 Heart Rate 74 bpm 2018-01-11 Respiratory Rate 20 2018-01-11 BMI 30.42 kg/m2 2018-01-11 Blood pressure systolic 124 mmHg 2018-01-11 Blood pressure diastolic 82 mmHg 2018-01-11 MEDICATIONS Medication Instructions Dosage Frequency Start Date End Date Duration Status Xanax 1 mg Orally three times a day 1 tablet 8h Active Protonix 40 MG Orally Once a day 1 tablet 24h Active Omeprazole 40 MG Orally Once a day 1 capsule 24h Active Effexor XR 37.5 MG Orally Once a day 1 capsule with food 24h Jan, 30 day(s) Active Fenofibrate 48 MG Orally Once a day 1 tablet 24h Jul, 30 day(s ) Active Zetia 10 mg Orally Once a day 1 tablet 24h Jul, 30 day(s) Active Amoxicillin 500 mg Orally 2 times a day 2 capsules 12h Jan,Jan 14 days Active Metronidazole 500 mg Orally Twice a day 1 tablet 12h Jan, Jan, 14 days Active Naproxen 500 MG Orally 2 times a day 1 tablet as needed 12h Active Protonix 40 MG Orally Once a day 1 tablet 24h December, 30 day(s) Active Trazodone HCl 100 MG Orally Once [...] disc replacement L1- L5 - Dr Muhammad ([facility]) Surgical History appendectomy 1983 Surgical History hysterectomy 1993 Surgical History dilatation and curettage Surgical History heart cath- Dr Shaw [address] Meza bowel and intestines 2015 Hospitalization History Hospitalization for surgery only
--- OUTSIDE RECORDS SUMMARY | 2018-04-23 11:31 | XMS REPORT ---
Author Author WILD RODRIGUEZ Organization [facility] [place] Address [address] [place] [address] Care Team Providers Care [employer] Dealer Name Role Phone WILD RODRIGUEZ Unavailable PROBLEMS Type Condition ICD9-CM Code ATV63-AT Code Onset Dates Condition Status SNOMED Code Problem Major depressive disorder, recurrent episode, moderate F33.1 Active 546694330 Problem PTSD (post-traumatic stress disorder) F43.10 Active 58341075 Problem Cannabis abuse F12.10 Active 34590688 Problem GERD with esophagitis K21.0 Active 310831574 Problem Spasm of muscle 728.85 Active 13976345 Problem Cocaine use disorder, moderate, in sustained remission F14.21 Active 09824827 Problem Diarrhea 787.91 Active 99199501 Problem Alcohol use disorder, mild, 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 Active 86953106 Problem Tobacco use Z72.0 Active 523120309 Problem Methamphetamine use disorder, severe, 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2 Active 653666125 Problem Insomnia 780.52 Active 670550985 Problem Generalized anxiety disorder F41.1 Active 33043941 ALLERGIES Substance Reaction Event Type Date Status Pravastatin Sodium itching Drug Allergy Jan, Active Duragesic-100 vomiting- Patches only Drug Allergy Jan, Active ENCOUNTERS Encounter Location Date Diagnosis [facility] [address] [id number] [id number] Apr, [facility] [place] [id number] [place] [address] 12863- 9512 Mar, [facility] [id number] [place] [id number] Mar, Encounter for dental exam and cleaning w/o abnormal findings Z01.20 [place] [id number] [place] [address] 06378- 7954 Mar, [place] [id number] [place] [address] 38842- 1229 Feb, Cocaine use disorder, moderate, in sustained [...] Major depressive disorder, recurrent episode, moderate F33.1 [place] [address] [place] [address] 94781- 4982 Jan, Cocaine use disorder, moderate, in sustained remission F14.21 [place] [address] [place] [address] 50237- 8529 Jan, Cocaine use disorder, moderate, in sustained [...] Major depressive disorder, recurrent episode, moderate F33.1 [place] [id number] [place] [address] 56539- 3045 Jan, Dysuria R30.0 and GERD with esophagitis K21.0 [place] [id number] [place] [address] 92932- 3851 December, Major depressive disorder, recurrent episode, moderate F33.1 [facility] [place] [id number] [place] [address] 15282- 1538 December, [facility] [place] [address] [place] [address] 42552- 4516 December, Major depressive disorder, recurrent episode, moderate [...] sustained remission F10.11 and Tobacco use Z72.0 [facility] [place] [address] [place] [address] 88899- 7962 Nov, [facility] [address] [place] [id number] [place] [address] Nov, [facility] [place] [address] [place] [address] 76771- 2100 Nov, Wellness examination Z00.00 ; Encounter for immunization Z23 ; Screening for osteoporosis Z13.820 ; Screening for breast cancer Z12.31 and Left breast lump N63.20 [facility] [address] [id number] Oct, Dental examination Z01.20 [facility] [place] [address] [place] [address] 91876- 6124 Oct, [facility] [place] [id number] [place] [address] 45414- 6999 Oct, [facility] [place] [id number] [place] [address] 22885- 9576 Sep, [facility] [place] [address] [place] [address] 62852- 7722 Sep, [place] [id number] [place] [address] 51016- 0315 14 Sep, 2017 Left otitis media with effusion H65.92 ; Acute suppurative otitis media of right ear without spontaneous rupture of tympanic membrane, recurrence not specified H66.001 ; Dizziness R42 and Fatigue 780.79 [facility] [place] [id number] [place] [address] 04830- 2617 Aug, Major depressive disorder, recurrent episode, moderate [...] sustained remission F10.11 and Tobacco use Z72.0 [facility] [id number] [place] [address] 25205 -0272 Aug, Ingrown right big toenail L60.0 [facility] [place] [id number] [place] [address] 90271- 2819 Aug, [facility] [place] [id number] [place] [address] 10438- 9658 Aug, PTSD (post-traumatic stress disorder) F43.10 [place] [id number] [place] [address] 79610- 7155 Aug, Major depressive disorder, recurrent episode, moderate F33.1 ; Generalized anxiety disorder F41.1 and Cannabis abuse F12.10 [facility] [place] [id number] [place] [address] 93061- 7094 Jul, [facility] [place] [address] 51819- 8431 Jul, [facility] [place] [id number] [place] [address] 14722- 6769 Jul, [place] [address] 61488- 2097 Jul, Major depressive disorder, recurrent episode, moderate F33.1 ; Generalized anxiety disorder F41.1 and Cannabis abuse F12.10 [place] [address] [place] [address] 44723- 7206 Jul, [place] [address] [place] [address] 10285- 4419 Jul, [place] [id number] [place] [address] 946512- 5963 Jul, Hyperlipidemia 272.4 [place] [id number] [place] [address] 348074- 9275 Jul, PTSD (post-traumatic stress disorder) F43.10 [place] [address] [place] [address] 46133- 3449 Jul, Tobacco use Z72.0 ; Alcohol use [...] anxiety disorder F41.1 and Cannabis abuse F12.10 [place] [address] [address] 5770 Jul, [place] [address] [place] [address] 02405- 6110 Jul, Dysuria R30.0 and Mixed hyperlipidemia E78.2 [place] [address] [place] [address] 82842- 9108 Jun, Major depressive disorder, recurrent episode, moderate F33.1 ; Generalized anxiety disorder F41.1 and Cannabis abuse F12.10 [place] [address] [place] [address] 89514- 4165 Jun, [place] [id number] [place] [address] 80805- 4040 Jun, Generalized anxiety disorder F41.1 ; Major depressive disorder, recurrent episode, moderate F33.1 ; PTSD (post-traumatic stress disorder) F43.10 ; Opioid use disorder, moderate, in sustained remission F11.21 ; Cannabis abuse F12.10 ; Alcohol use disorder, mild, 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 ; Methamphetamine use disorder, severe, 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 ; Cocaine use disorder, moderate, in sustained remission F14.21 and Tobacco use Z72.0 [facility] [place] [id number] [place] [address] 29587- 6213 Jun, Major depressive disorder, recurrent episode, moderate F33.1 ; Generalized anxiety disorder F41.1 and Cannabis abuse F12.10 [place] [id number] [place] [address] 60784- 5711 Jun, [place] [id number] [place] [address] 54720- 1040 Jun, [facility] [place] [id number] [place] [address] 39949- 7050 Jun, Major depressive disorder, recurrent episode, moderate F33.1 ; Generalized anxiety disorder F41.1 and Cannabis abuse F12.10 [facility] [id number] [place] [address] [id number] Mar, Dental examination Z01.20 [facility] [id number] [place] [address] [id number] Feb, Dental examination Z01.20 [facility] [place] [id number] [place] [address] 01180- 9470 Mar, [place] [id number] [place] [address] 64886- 9617 Mar, [facility] [place] [id number] [place] [address] 19680- 6789 Feb, Hyperlipidemia 272.4 and Prediabetes 790.29 [place] [address] 09277- 5048 Feb, Fatigue 780.79 and Hyperlipidemia 272.4 [facility] [place] [address] [facility] [id number] [address]- 1529 Feb, Lumbago 724.2 ; Hyperlipidemia 272.4 ; Insomnia 780.52 and Fatigue 780.79 [facility] [place] [address] [address]- 2836 Nov, [facility] [address] [facility] [id number] [address]- 4717 Nov, [facility] [id number] [address]- 5158 Mar, [facility] [id number] [address]- 2419 Mar, [facility] [address] [address]- 2708 Jan, [facility] [address] [id number] [address]- 9577 Jan, [facility] [address] [id number] [address]- 5375 December, [facility] [address] [address]- 9738 December, [facility] [place] [address] [id number] [address]- 4583 Nov, [facility] [address] [facility] [id number], [place] [address]- 9046 Nov, [facility] [address] [facility] [id number] [address]- 4322 Nov, [facility] [address] [facility] [id number], [place] [address]- 9783 Nov, [facility] [address] [id number] [address]- 0149 Nov, [facility] [id number] [place] [address]- 3702 28 Nov, 2013 [facility] [address] [id number] [place] [address]- 9106 31 Oct, 2013 [facility] [place] [facility] [address] [id number] [place] 7936 31 Oct, 2013 [facility] [place] [facility] [address] [id number] [place] [address]- 7489 Oct, [facility] [place] [facility] [address] [id number] [place] [address]- 9026 Oct, [facility] [place] [facility] [address] [id number] [place] [address]- 6570 Oct, [facility] [place] [facility] [address] [id number] [place] [address]- 4066 Oct, [facility] [place] [facility] [address] [id number] [place] [address]- 3083 Oct, [facility] [place] [facility] [address] [id number] [place] [address]- 6227 Oct, [facility] [place] [facility] [address] [id number] [place] [address]- 0955 Oct, [facility] [place] [facility] [address] [id number] [place] [address]- 7705 Oct, [facility] [place] [facility] [address] [id number] [place] [address]- 5908 Oct, [facility] [place] [facility] [address] [id number] [place] [address]- 8292 Oct, [facility] [place] [facility] [address] [id number] [place] [address]- 4481 Oct, [facility] [place] [facility] [address] [id number] [place] [address]- 9063 Sep, [facility] [place] [facility] [address] [id number] [place] [address]- 7206 Sep, [facility] [place] [facility] [address] [id number] [place] [address]- 6683 20 Sep, 2013 [facility] [place] [facility] [address] [id number] [place] [address]- 4956 20 Sep, 2013 [facility] [place] [facility] [address] [facility] [id number] [place] [address]- 0377 20 Sep, 2013 [facility] [place] [facility] [address] [id number] [place] [address]- 6414 20 Sep, 2013 [facility] [place] [facility] [address] [id number] [place] [address]- 4579 18 Sep, 2013 [facility] [place] [facility] [address] [facility] [id number] [place] [address]- 8830 18 Sep, 2013 [facility] [place] [facility] [address] [facility] [id number] [place] [address]- 4286 14 Sep, 2013 [facility] [place] [facility] [address] [id number] [place] [address]- 0491 14 Sep, 2013 [facility] [place] [facility] [address] [facility] [id number] [place] [address]- 8682 14 Sep, 2013 [facility] [place] [facility] [address] [facility] [id number] [place] [address]- 4644 14 Sep, 2013 [facility] [place] [facility] [address] [facility] [id number] [place] [address]- 2709 14 Sep, 2013 [facility] [place] [facility] [address] [facility] [id number] [place] [address]- 7985 14 Sep, 2013 [facility] [place] [facility] [address] [facility] [id number] [place] [address]- 4552 13 Sep, 2013 [facility] [place] [facility] [address] [facility] [id number] [place] [address]- 4602 13 Sep, 2013 [facility] [place] [facility] [address] [facility] [id number] [place] [address]- 8928 12 Sep, 2013 [facility] [place] [facility] [address] [id number] [place] [address]- 6310 Sep, [facility] [place] [facility] [address] [id number] [place] 5386 Sep, [facility] [place] [facility] [address] [id number] [place] [address]- 2933 Sep, [facility] [place] [facility] [address] [id number] [place] [address]- 6842 Aug, [facility] [place] [facility] [address] [id number] [place] [address]- 6610 Aug, [facility] [place] [facility] [address] [id number] [place] [address]- 9326 Aug, [facility] [address] [id number] [place] [address]- 6961 Aug, [facility] [address] [id number] [place] [address]- 9306 Aug, [facility] [place] [facility] [address] [id number] [place] [address]- 8454 Jul, [facility] [place] [facility] [address] [id number] [place] [address]- 2541 Jul, [facility] [place] [facility] [address] [id number] [place] [address]- 7329 Jul, [facility] [place] [facility] [address] [id number] [place] [address]- 4128 Jul, [facility] [place] [facility] [address] [id number] [place] [address]- 3632 Jul, [facility] [place] [facility] [address] [id number] [place] 1443 Jul, [facility] [place] [facility] [address] [id number] [place] [address]- 6540 Jul, [facility] [place] [facility] [address] [id number], [place] [address]- 7377 Jul, [facility] [place] [facility] [address] [id number] [place] [address]- 5641 Jul, [facility] [place] [facility] [address] [id number], [place] [address]- 9034 Jun, [facility] [place] [facility] [address] [id number] [place] [address]- 7065 Jun, [facility] [place] [facility] [address] [id number], [place] [address]- 2332 Jun, [facility] [place] [facility] [address] [id number] [place] [address]- 8093 Jun, [facility] [place] [facility] [address] [id number] [place] [address]- 1809 Jun, [facility] [place] [facility] [address] [id number], [place] [address]- 3730 Jun, [facility] [place] [facility] [address] [id number] [place] [address]- 1023 Jun, [facility] [place] [facility] [address] [id number], [place] [address]- 4381 Jun, [facility] [place] [facility] [address] [id number], [place] [address]- 9265 Jun, [facility] [place] [facility] [address] [id number], [place] [address]- 7816 Jun, [facility] [place] [facility] [address] [id number], [place] [address]- 3754 May, [facility] [place] [facility] [address] [id number], [place] [address]- 8528 May, [facility] [place] [facility] [address] [id number], [place] [address]- 0685 May, [facility] [place] [facility] [address] [id number] [place] [address]- 3011 May, [facility] [place] [facility] [address] [id number] [place] [address]- 1386 16 May, 2013 [facility] [place] [facility] [address] [id number] [place] [address]- 6600 11 May, 2013 [facility] [place] [facility] [address] [id number] [place] [address]- 4046 May, [facility] [place] [facility] [address] [id number] [place] [address]- 8305 May, [facility] [place] [facility] [address] [id number] [place] [address]- 7931 May, [facility] [place] [facility] [address] [id number] [place] [address]- 7575 Apr, [facility] [place] [facility] [address] [id number] [place] [address]- 5257 16 Apr, 2013 [facility] [place] [facility] [address] [id number] [place] [address]- 9804 Apr, [facility] [place] [facility] [address] [id number] [place] [address]- 6941 Apr, [facility] [place] [facility] [address] [id number] [place] [address]- 4123 Mar, [facility] [place] [facility] [address] [id number] [place] [address]- 4683 Mar, [facility] [place] [facility] [address] [id number] [place] [address]- 4885 Mar, [facility] [place] [facility] [address] [id number] [place] [address]- 0561 Mar, [facility] [place] [facility] [address] [id number] [place] [address]- 2403 Mar, [facility] [place] [facility] [address] [id number] [place] [address]- 0021 Mar, [facility] [place] [facility] [address] [id number] [place] [address]- 2991 Mar, [facility] [address] [id number] [place] [address]- 5729 Feb, [facility] [place] [facility] [address] [id number] [place] [address]- 7686 Feb, [facility] [place] [facility] [address] [id number] [place] [address]- 3648 Feb, [facility] [place] [facility] [address] [id number] [place] [address]- 2266 Feb, [facility] [address] [id number] [place] [address]- 7599 Feb, [facility] [place] [facility] [address] [id number] [place] [address]- 2551 Feb, [facility] [place] [facility] [address] [id number] [place] [address]- 3078 Feb, [facility] [place] [facility] [address] [id number] [place] [address]- 1638 Feb, [facility] [place] [facility] [address] [id number] [place] [address]- 1218 Feb, [facility] [place] [facility] [address] [id number] [place] [address]- 6014 Feb, [facility] [place] [facility] [address] [id number] [place] [address]- 4661 Feb, [facility] [place] [facility] [address] [id number] [place] [address]- 6409 Jan, [facility] [place] [facility] [address] [id number] [place] [address]- 3661 Jan, [facility] [place] [facility] [address] [id number] [place] [address]- 2835 December, [facility] [place] [facility] [address] [id number] [place] [address]- 6785 December, [facility] [place] [facility] [address] [id number] [place] [address]- 2806 Nov, [facility] [address] [id number] [place] [address]- 4538 Nov, [facility] [address] [id number] [place] [address] Oct, [facility] [address] [id number] [place] [address] Oct, [facility] [address] [id number] [place] [address] Oct, [facility] [address] [id number] [place] [address] Oct, [facility] [address] [id number] [place] [address] Sep, [facility] [address] [id number] [place] [address] Sep, [facility] [address] [id number] [place] [address] Sep, [facility] [address] [id number] [place] [address] Sep, [facility] [address] [facility] [id number] [place] [address] Aug, [facility] [address] [id number] [place] [address] Aug, [facility] [address] [id number] [place] [address] Jul, [facility] [place] [facility] [address] [id number] [place] [address] Jul, [facility] [place] [facility] [address] [id number] [place] [address] Jul, [facility] [address] [id number] [place] [address] Jul, [facility] [place] [facility] [address] [id number] [place] [address] Jul, [facility] [place] [facility] [address] [id number] [place] [address] Jul, [facility] [place] [facility] [address] [id number] [place] [address] Jun, [facility] [place] [facility] [address] [id number] [place] [address] Jun, [facility] [place] [facility] [address] [id number] [place] [address] Jun, [facility] [place] [facility] [address] [id number] [place] [address] Jun, [facility] [place] [facility] [address] [id number] [place] [address] Jun, [facility] [place] [facility] [address] [id number] [place] [address] May, [facility] [place] [facility] [address] [id number] [place] [address] May, [facility] [place] [facility] [address] [id number], [place] [address] May, [facility] [place] [facility] [address] [id number], [place] [address] May, [facility] [place] [facility] [address] [id number], [place] [address] May, [facility] [place] [facility] [address] [id number] [place] [address] May, [facility] [place] [facility] [address] [id number], [place] [address] May, [facility] [place] [facility] [address] [facility] [id number], [place] [address] May, [facility] [place] [facility] [address] [id number], [place] [address] Mar, [facility] [place] [facility] [address] [id number] [place] [address] Mar, [facility] [place] [facility] [address] [id number] [place] [address] Mar, [facility] [place] [facility] [address] [id number] [place] [address] Feb, [facility] [place] [facility] [address] [id number] [place] [address] Feb, [facility] [place] [facility] [address] [id number] [place] [address] Feb, [facility] [place] [facility] [address] [id number] [place] [address] Feb, [facility] [place] [facility] [address] [id number] [place] [address] Jan, [facility] [place] [facility] [address] [id number] [place] [address] Jan, [facility] [place] [facility] [address] [id number] [place] [address] Jan, [facility] [place] [facility] [address] [id number] [place] [address] December, [facility] [place] [facility] [address] [id number] [place] [address] Nov, [facility] [place] [facility] [address] [id number] [place] [address] Oct, [facility] [place] [facility] [address] [id number] [place] [address] Oct, [facility] [place] [facility] [address] [id number] [place] [address] Oct, [facility] [place] [facility] [address] [id number] [place] [address] Oct, [facility] [place] [facility] [address] [id number] [place] [address] 30 Aug, 2011 [facility] [address] [id number] [place] [address] Aug, [facility] [address] [id number] [place] [address] Aug, [facility] [address] [id number] [place] [address] Aug, [facility] [address] [id number] [place] [address] Aug, [facility] [address] [id number] [place] [address] Aug, [facility] [address] [id number] [place] [address] Aug, [facility] [address] [id number] [place] [address] Aug, [facility] [address] [id number] [place] [address] Jul, [facility] [address] [id number] [place] [address] Jun, [facility] [address] [id number] [place] [address] 29 Jun, 2011 [facility] [address] [id number] [place] [address] 31 Jul, 2010 [facility] [address] [id number] [place] [address] Jul, [facility] [place] [facility] [address] [id number] [place] [address] Jul, [facility] [address] [id number] [place] [address] 14 Jul, 2010 [facility] [place] [facility] [address] [id number] [place] [address] Jul, [facility] [place] [address] [facility] [id number] [address] Jun, [facility] [place] [address] [facility] [id number] [address] May, [facility] [place] [address] [facility] [id number] [address] Mar, [facility] [place] [address] [facility] [id number], [place] [address] Oct, [facility] [place] [address] [facility] [id number], [place] [address] Aug, [facility] [place] [address] [facility] [id number], [place] [address] Jul, [facility] [place] [id number], [place] [address] Jul, [facility] [place] [id number], [place] [address] Jun, [facility] [place] [address] [id number], [place] [address] Jun, [facility] [place] [id number], [place] [address] May, [facility] [place] [address] [id number], [place] [address] May, [facility] [place] [address] [id number], [place] [address] Mar, [facility] [place] [address] [facility] [id number], [place] [address] Mar, [facility] [place] [address] [id number] [address] Oct, IMMUNIZATIONS No Known Immunizations SOCIAL HISTORY Never Assessed REASON FOR VISIT Stomach, PT reports she feels like she may have an UTI. -[place] COTE PLAN OF CARE VITAL SIGNS Height 68 in 2018-01-10 Weight 200 lbs 2018-01-10 Temperature 98.0 degrees Fahrenheit 2018-01-10 Heart Rate 70 bpm 2018-01-10 Respiratory Rate 20 2018-01-10 BMI 30.41 kg/m2 2018-01-10 Blood pressure systolic 120 mmHg 2018-01-10 Blood pressure diastolic 80 mmHg 2018-01-10 MEDICATIONS Medication Instructions Dosage Frequency Start Date End Date Duration Status Omeprazole 40 MG Orally Once a day 1 capsule 24h Active Naproxen 500 MG Orally 2 times a day 1 tablet as needed 12h Active Protonix 40 MG Orally Once a day 1 tablet 24h December, 30 day(s) Active Metronidazole 500 mg Orally Twice a day 1 tablet 12h Jan, Jan, 14 days Active Zetia 10 mg Orally Once a day 1 tablet 24h Jul, 30 day(s) Active Protonix 40 MG Orally Once a day 1 tablet 24h Active Trazodone HCl 100 MG Orally Once a day 1 tablet at bedtime 24h Feb, 30 days Active Fenofibrate 48 MG Orally Once a day 1 tablet 24h Jul, 30 day(s ) Active Xanax 1 mg Orally three times a day 1 tablet 8h 30 days Active Amoxicillin 500 mg Orally 2 times a day 2 capsules 12h Jan,Jan 14 days Active RESULTS Name Result Date Reference Range UA LONG DIP (IN HOUSE) 2018-01-10 Lot # [id number] Exp date 11/2018 Clarity clear Color yellow Odor none GLU negative EMBER nehative KET negative SG 1.010 BLO 1+ pH 5.5 Protein negative URO 0.2 NIT negative HEIKE negative Lot # Exp date PROCEDURES Procedure Date Ordered Result Body Site URINALYSIS, AUTO, W/O SCOPE January 10, 2018 INSTRUCTIONS MEDICATIONS ADMINISTERED No Known Medications MEDICAL [...] disc replacement L1- L5 - Dr Muhammad ([place]) Surgical History appendectomy 1984 Surgical History hysterectomy 1993 Surgical History dilatation and curettage Surgical History heart cath- Dr Shaw [address] Meza bowel and intestines seperated 2016 Hospitalization History Hospitalization for surgery only
--- OUTSIDE RECORDS SUMMARY | 2018-04-23 11:31 | XMS REPORT ---
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 Name Role Phone JOSEVASQUEZ ZUNIGA Unavailable PROBLEMS Type Condition ICD9-CM Code [id number] Code Onset Dates Condition Status SNOMED Code Problem Major depressive disorder, recurrent episode, moderate F33.1 Active 385472681 Problem PTSD (post-traumatic stress disorder) F43.10 Active 89311341 Problem Cannabis abuse F12.10 Active 95178501 Problem GERD with esophagitis K21.0 Active 783429390 Problem Spasm of muscle 728.85 Active 49714521 Problem Cocaine use disorder, moderate, in sustained remission F14.21 Active 78081848 Problem Diarrhea 787.91 Active 22551021 Problem Alcohol use disorder, mild, 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 Active 07555093 Problem Tobacco use Z72.0 Active 974750047 Problem Methamphetamine use disorder, severe, 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2 Active 017815838 Problem Insomnia 780.52 Active 999407729 Problem Generalized anxiety disorder F41.1 Active 34199230 ALLERGIES No Information ENCOUNTERS Encounter Location Date Diagnosis [facility] [address] [facility] [id number] [place] [id number] 13 Apr, 2018 [facility] [address] [id number] [id number] Mar, Encounter for dental exam and cleaning w/o abnormal findings Z01.20 [place] [id number] [place] [address] 82077- 1767 Mar, [place] [address] [address] Feb, Cocaine use disorder, moderate, in sustained [...] Major depressive disorder, recurrent episode, moderate F33.1 [address] [address] Jan, Cocaine use disorder, moderate, in sustained remission F14.21 [place] [address] [place] [address] 16178- 8491 Jan, Cocaine use disorder, moderate, in sustained [...] Major depressive disorder, recurrent episode, moderate F33.1 [place] [address] [place] [address] 45503- 9049 Jan, Dysuria R30.0 and GERD with esophagitis K21.0 [place] [address] [place] [address] 45248- 8416 December, Major depressive disorder, recurrent episode, moderate F33.1 [place] [id number] [place] [address] 49898- 7756 December, [facility] [id number] [place] [address] 45368- 0052 December, Major depressive disorder, recurrent episode, moderate [...] sustained remission F10.11 and Tobacco use Z72.0 [facility] [id number] [place] [address] 63102- 3694 Nov, [facility] [address] [place] [id number] [place] [address] Nov, [facility] [id number] [place] [address] 69715- 6120 Nov, Wellness examination Z00.00 ; Encounter for immunization Z23 ; Screening for osteoporosis Z13.820 ; Screening for breast cancer Z12.31 and Left breast lump N63.20 [facility] [id number] [place] [address] [id number] Oct, Dental examination Z01.20 [facility] [address] [place] [address] 54014- 3649 Oct, [facility] [id number] [place] [address] 98587- 2292 Oct, [facility] [id number] [place] [address] 62129- 8343 16 Sep, 2017 [facility] [address] [address]61- [address]157 15 Sep, 2017 [facility] [id number] [place] [address] 02694- 9151 14 Sep, 2017 Left otitis media with effusion H65.92 ; Acute suppurative otitis media of right ear without spontaneous rupture of tympanic membrane, recurrence not specified H66.001 ; Dizziness R42 and Fatigue 780.79 [facility] [id number] [place] [address] 94723- 6955 Aug, Major depressive disorder, recurrent episode, moderate [...] sustained remission F10.11 and Tobacco use Z72.0 [facility] [address] [address] Aug, Ingrown right big toenail L60.0 [facility] [address] [address]- 4309 Aug, [place] [address] 70703- 6250 Aug, PTSD (post-traumatic stress disorder) F43.10 [place] [address] 9[address]57- 9207 Aug, Major depressive disorder, recurrent episode, moderate F33.1 ; Generalized anxiety disorder F41.1 and Cannabis abuse F12.10 [place] [id number] [place] [address] 45183- 2232 Jul, [facility] [address] 48403- 2487 Jul, [place] [id number] [place] [address] 03123- 0752 Jul, [place] [address] 78446- 7824 Jul, Major depressive disorder, recurrent episode, moderate F33.1 ; Generalized anxiety disorder F41.1 and Cannabis abuse F12.10 [place] [address] [place] [id number]- 2546 Jul, [facility] [address] [address] 6236 Jul, [place] [address] [place] [address] 16577- 0704 Jul, Hyperlipidemia 272.4 [place] [address] [place] [address] 62665- 6549 Jul, PTSD (post-traumatic stress disorder) F43.10 [place] [address] [address] 1659 Jul, Tobacco use Z72.0 ; Alcohol use [...] anxiety disorder F41.1 and Cannabis abuse F12.10 [place] [address] [address] 3199 Jul, [place] [address] [place] [address] 61486- 5126 Jul, Dysuria R30.0 and Mixed hyperlipidemia E78.2 [place] [address] [place] [address] 55853- 2912 Jun, Major depressive disorder, recurrent episode, moderate F33.1 ; Generalized anxiety disorder F41.1 and Cannabis abuse F12.10 [place] [address] [id number] [address] 4595 Jun, [place] [address] [place] [address] 42704- 0148 Jun, Generalized anxiety disorder F41.1 ; Major depressive disorder, recurrent episode, moderate F33.1 ; PTSD (post-traumatic stress disorder) F43.10 ; Opioid use disorder, moderate, in sustained remission F11.21 ; Cannabis abuse F12.10 ; Alcohol use disorder, mild, 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 ; Methamphetamine use disorder, severe, 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 ; Cocaine use disorder, moderate, in sustained remission F14.21 and Tobacco use Z72.0 [facility] [address] [place] [address] 74746- 5410 Jun, Major depressive disorder, recurrent episode, moderate F33.1 ; Generalized anxiety disorder F41.1 and Cannabis abuse F12.10 [facility] [id number] [place] [address] 84225- 9019 Jun, [facility] [address] 288093- 6805 Jun, [place] [id number] [place] [address] 08951- 5798 Jun, Major depressive disorder, recurrent episode, moderate F33.1 ; Generalized anxiety disorder F41.1 and Cannabis abuse F12.10 [facility] [id number] [place] [id number] Mar, Dental examination Z01.20 [facility] [address] [id number] Feb, Dental examination Z01.20 [place] [id number] [place] [address] 65091- 5687 Mar, [place] [id number] [place] [address] 45867- 9876 Mar, [facility] [id number] [place] [address] 77944- 1674 Feb, Hyperlipidemia 272.4 and Prediabetes 790.29 [place] [id number] [place] [address] 66038- 1994 Feb, Fatigue 780.79 and Hyperlipidemia 272.4 [place] [id number] [place] [address] 79379- 7352 08 Feb, 2015 Lumbago 724.2 ; Hyperlipidemia 272.4 ; Insomnia 780.52 and Fatigue 780.79 [facility] [address] [id number] [address]- 8552 Nov, [facility] [address] [address]- 5788 Nov, [facility] [id number] [address] 6729 Mar, [facility] [address] [facility] [address] [facility] [id number] [place] [address] 16792- 7897 Mar, [facility] [address] [place] [address], [place] [address]- 1006 Jan, [facility] [id number] [place] [address] 39187- 6522 Jan, [facility] [id number] [place] [address] 98175- 2769 December, [facility] [address] [address]- 3052 December, [facility] [address] [address]- 3989 Nov, [facility] [address] [address]- 8087 Nov, [facility] [address] [address]- 4332 Nov, [facility] [address] [address]- 0184 Nov, [facility] [address] [address]- 1146 Nov, [facility] [address] [address]- 1699 Nov, [facility] [address] [address]- 3363 Oct, [facility] [place] [facility] [address] [id number] [place] [address]- 8424 31 Oct, 2013 [facility] [place] [facility] [address] [id number] [place] [address]- 7962 20 Oct, 2013 [facility] [place] [facility] [address] [id number] [place] [address]- 8889 Oct, [facility] [place] [facility] [address] [id number] [place] [address]- 1856 Oct, [facility] [place] [facility] [address] [id number] [place] [address]- 4276 Oct, [facility] [place] [facility] [address] [id number] [place] [address]- 8971 Oct, [facility] [place] [facility] [address] [id number] [place] [address]- 6437 Oct, [facility] [place] [facility] [address] [id number] [place] [address]- 7347 Oct, [facility] [place] [facility] [address] [id number] [place] [address]- 0864 Oct, [facility] [place] [facility] [address] [id number] [place] [address]- 1171 Oct, [facility] [place] [facility] [address] [id number] [place] [address]- 1693 Oct, [facility] [place] [facility] [address] [id number] [place] [address]- 9850 Oct, [facility] [place] [facility] [address] [id number] [place] [address]- 4072 Sep, [facility] [place] [facility] [address] [id number] [place] [address]- 2089 Sep, [facility] [place] [facility] [address] [id number] [place] [address]- 9309 Sep, [facility] [place] [facility] [address] [id number] [place] [address]- 3949 20 Sep, 2013 [facility] [place] [facility] [address] [id number] [place] [address]- 9259 20 Sep, 2013 [facility] [place] [facility] [address] [id number] [place] [address]- 3498 20 Sep, 2013 [facility] [place] [facility] [address] [address] [facility] [id number] [place] [address]- 4986 18 Sep, 2013 [facility] [place] [facility] [address] [id number] [place] [address]- 2846 18 Sep, 2013 [facility] [place] [facility] [address] [id number] [place] [address]- 2810 14 Sep, 2013 [facility] [place] [facility] [address] [id number] [place] [address]- 9513 14 Sep, 2013 [facility] [place] [facility] [address] [facility] [address] [facility] [id number] [place] [address]- 9738 14 Sep, 2013 [facility] [place] [facility] [address] [id number] [place] [address]- 3997 14 Sep, 2013 [facility] [place] [facility] [address] [facility] [id number] [place] [address]- 7916 14 Sep, 2013 [facility] [place] [facility] [address] [facility] [id number] [place] [address]- 1265 14 Sep, 2013 [facility] [place] [facility] [address] [facility] [id number] [place] [address]- 2546 13 Sep, 2013 [facility] [place] [facility] [address] [facility] [id number] [place] [address]- 2545 13 Sep, 2013 [facility] [place] [facility] [address] [facility] [id number] [place] [address]- 9075 12 Sep, 2013 [facility] [place] [facility] [address] [address] [facility] [id number] [place] [address]- 1978 12 Sep, 2013 [facility] [place] [facility] [address] [address] [facility] [id number] [place] [address]- 2549 Sep, [facility] [place] [facility] [address] [id number] [place] [address]- 3631 Sep, [facility] [place] [facility] [address] [id number] [place] [address]- 2958 Aug, [facility] [place] [facility] [address] [id number] [place] [address]- 6287 Aug, [facility] [place] [facility] [address] [id number] [place] [address]- 1775 Aug, [facility] [place] [facility] [address] [id number] [place] [address]- 5181 Aug, [facility] [place] [facility] [address] [id number] [place] [address]- 9799 Aug, [facility] [place] [facility] [address] [id number] [place] [address]- 9171 Jul, [facility] [place] [facility] [address] [id number] [place] [address]- 0912 Jul, [facility] [place] [facility] [address] [id number] [place] [address]- 9376 Jul, [facility] [place] [facility] [address] [id number] [place] [address]- 4464 Jul, [facility] [place] [facility] [address] [id number] [address]- 4521 Jul, [facility] [place] [facility] [address] [id number] [address]- 8502 Jul, [facility] [place] [facility] [address] [id number] [place] [address]- 8634 Jul, [facility] [place] [facility] [address] [id number] [address]- 4799 Jul, [facility] [place] [facility] [address] [id number] [place] [address]- 4452 Jul, [facility] [place] [facility] [address] [id number] [place] [address]- 5994 Jun, [facility] [place] [facility] [address] [id number] [place] [address]- 4922 Jun, [facility] [place] [facility] [address] [id number] [place] [address]- 3575 Jun, [facility] [place] [facility] [address] [id number] [place] [address]- 8985 Jun, [facility] [place] [facility] [address] [id number] [place] [address]- 6359 Jun, [facility] [place] [facility] [address] [id number] [place] [address]- 1686 Jun, [facility] [place] [facility] [address] [id number] [place] [address]- 5072 Jun, [facility] [place] [facility] [address] [id number] [place] [address]- 9032 Jun, [facility] [place] [facility] [address] [id number] [place] [address]- 5039 Jun, [facility] [place] [facility] [address] [id number] [place] [address]- 7419 Jun, [facility] [place] [facility] [address] [id number] [place] [address]- 1564 May, [facility] [place] [facility] [address] [id number] [place] [address]- 1607 28 May, 2013 [facility] [place] [facility] [address] [id number] [address]- 1437 May, [facility] [place] [facility] [address] [id number] [place] [address]- 5732 22 May, 2013 [facility] [place] [facility] [address] [id number] [place] [address]- 9159 16 May, 2013 [facility] [place] [facility] [address] [id number] [place] [address]- 5220 May, [facility] [place] [facility] [address] [id number] [place] [address]- 0504 May, [facility] [place] [facility] [address] [id number] [place] [address]- 1865 May, [facility] [place] [facility] [address] [id number] [place] [address]- 6527 May, [facility] [place] [facility] [address] [id number] [place] [address]- 0561 Apr, [facility] [place] [facility] [address] [id number] [place] [address]- 6539 16 Apr, 2013 [facility] [place] [facility] [address] [id number] [place] [address]- 2135 Apr, [facility] [place] [facility] [address] [id number] [place] [address]- 2387 Apr, [facility] [place] [facility] [address] [id number] [place] [address]- 5475 Mar, [facility] [place] [facility] [address] [id number] [place] [address]- 6305 Mar, [facility] [place] [facility] [address] [id number] [place] [address]- 9598 Mar, [facility] [place] [facility] [address] [id number] [place] [address]- 3901 Mar, [facility] [place] [facility] [address] [id number] [place] [address]- 9657 Mar, [facility] [place] [facility] [address] [id number] [place] [address]- 9933 Mar, [facility] [place] [facility] [address] [id number] [place] [address]- 8283 Mar, [facility] [place] [facility] [address] [id number] [place] [address]- 6570 Feb, [facility] [place] [facility] [address] [id number] [place] [address]- 3809 Feb, [facility] [address] [id number] [place] [address]- 3278 Feb, [facility] [place] [facility] [address] [id number] [place] [address]- 0537 Feb, [facility] [place] [facility] [address] [id number] [place] [address]- 7931 Feb, [facility] [place] [facility] [address] [id number] [place] [address]- 9525 Feb, [facility] [place] [facility] [address] [id number] [place] [address]- 8304 Feb, [facility] [place] [facility] [address] [id number] [place] [address]- 9312 Feb, [facility] [address] [id number] [place] [address]- 4176 Feb, [facility] [place] [facility] [address] [id number] [place] [address]- 5793 Feb, [facility] [place] [facility] [address] [id number] [place] [address]- 5095 Feb, [facility] [place] [facility] [address] [id number] [place] [address]- 2417 Jan, [facility] [place] [facility] [address] [id number] [place] [address]- 2711 Jan, [facility] [place] [facility] [address] [id number] [place] [address]- 5778 December, [facility] [place] [facility] [address] [id number] [place] 9933 December, [facility] [place] [facility] [address] [id number] [place] [address]- 3380 Nov, [facility] [place] [facility] [address] [id number] [place] [address]- 8200 Nov, [facility] [place] [facility] [address] [id number] [place] [address]- 7647 27 Oct, 2012 [facility] [address] [id number] [place] [address]- 7717 Oct, [facility] [place] [facility] [address] [id number] [place] [address]- 7276 Oct, [facility] [address] [id number] [place] [address]- 9459 Oct, [facility] [place] [facility] [address] [id number] [place] [address]- 7839 Sep, [facility] [address] [id number] [place] [address]- 4366 Sep, [facility] [address] [id number] [place] [address]- 1470 Sep, [facility] [address] [id number] [place] [address]- 0959 Sep, [facility] [address] [id number] [place] [address] Aug, [facility] [address] [id number] [place] [address] Aug, [facility] [address] [id number] [place] [address] Jul, [facility] [address] [id number] [place] [address] Jul, [facility] [address] [id number] [place] [address] Jul, [facility] [place] [facility] [address] [id number] [place] [address] Jul, [facility] [place] [facility] [address] [id number] [place] [address] Jul, [facility] [place] [facility] [address] [id number] [place] [address] Jul, [facility] [place] [facility] [address] [id number] [place] [address] Jun, [facility] [place] [facility] [address] [id number] [place] [address] Jun, [facility] [place] [facility] [address] [facility] [id number] [place] [address] Jun, [facility] [place] [facility] [address] [id number] [place] [address] Jun, [facility] [place] [facility] [address] [id number] [place] [address] Jun, [facility] [place] [facility] [address] [id number] [place] [address] May, [facility] [place] [facility] [address] [id number] [place] [address] May, [facility] [place] [facility] [address] [id number] [place] [address] May, [facility] [place] [facility] [address] [id number] [place] [address] May, [facility] [place] [facility] [address] [facility] [id number] [place] [address] May, [facility] [place] [facility] [address] [id number] [place] [address] May, [facility] [place] [facility] [address] [id number] [place] [address] May, [facility] [place] [facility] [address] [id number] [place] [address] May, [facility] [place] [facility] [address] [facility] [facility] [id number] [address] Mar, [facility] [place] [facility] [address] [id number] [place] [address] Mar, [facility] [place] [facility] [address] [id number] [place] [address] Mar, [facility] [place] [facility] [address] [id number] [place] [address] Feb, [facility] [place] [facility] [address] [id number] [place] [address] Feb, [facility] [place] [facility] [address] [id number] [place] [address] Feb, [facility] [place] [facility] [address] [id number] [place] [address] Feb, [facility] [place] [facility] [address] [id number] [place] [address] Jan, [facility] [place] [facility] [address] [id number] [place] [address] Jan, [facility] [place] [facility] [address] [id number] [place] [address] Jan, [facility] [place] [facility] [address] [id number] [place] [address] December, [facility] [place] [facility] [address] [id number] [place] [address] Nov, [facility] [place] [facility] [address] [id number] [place] [address] Oct, [facility] [place] [facility] [address] [id number] [place] [address] Oct, [facility] [place] [facility] [address] [id number] [place] [address] Oct, [facility] [place] [facility] [address] [id number] [place] [address] Oct, [facility] [place] [facility] [address] [id number] [place] [address] Aug, [facility] [place] [facility] [address] [id number] [place] [address] Aug, [facility] [place] [facility] [address] [id number] [place] [address] Aug, [facility] [address] [id number] [place] [address] Aug, [facility] [address] [id number] [place] [address] Aug, [facility] [address] [id number] [place] [address] Aug, [facility] [address] [id number] [place] [address] Aug, [facility] [address] [id number] [place] [address] Aug, [facility] [address] [id number] [place] [address] Jul, [facility] [address] [id number] [place] [address] Jun, [facility] [address] [id number] [place] [address] Jun, [facility] [address] [id number] [place] [address] Jul, [facility] [address] [id number] [place] [address] Jul, [facility] [address] [id number] [place] [address] Jul, [facility] [address] [id number] [place] [address] 14 Jul, 2010 [facility] [place] [facility] [address] [id number] [place] [address] 14 Jul, 2010 [facility] [address] [id number] [place] [address] 24 Jun, 2010 [facility] [address] [id number] [place] [address] May, [facility] [id number] [address] Mar, [facility] [id number] [address] Oct, [facility] [id number] [address] Aug, [facility] [id number] [address] Jul, [facility] [id number] [address] Jul, [facility] [id number] [address] Jun, [facility] [id number] [address] Jun, [facility] [id number] [address] May, [facility] [id number] [address] May, [facility] [id number] [address] Mar, [facility] [id number] [address] Mar, [facility] [id number] [address] Oct, IMMUNIZATIONS No Known Immunizations SOCIAL HISTORY Never Assessed REASON FOR VISIT xanax refill 12/28/2017 PLAN OF CARE VITAL SIGNS MEDICATIONS Medication [...] disc replacement L1- L5 - Dr Muhammad ([place]) Surgical History appendectomy 1983 Surgical History hysterectomy 1993 Surgical History dilatation and curettage Surgical History heart cath- Dr Shaw [address] Meza bowel and intestines 2015 Hospitalization History Hospitalization for surgery only
--- OUTSIDE RECORDS SUMMARY | 2018-04-23 11:32 | XMS REPORT ---
Author Author RAUL VASQUEZ [facility] Address [address] [place] [address] Care Team Providers Care Grip Boss Name Role Phone JOSEVASQUEZ ZUNIGA Unavailable PROBLEMS Type Condition ICD9-CM Code [id number] Code Onset Dates Condition Status SNOMED Code Problem Major depressive disorder, recurrent episode, moderate F33.1 Active 242322336 Problem PTSD (post-traumatic stress disorder) F43.10 Active 41472320 Problem Cannabis abuse F12.10 Active 53658335 Problem GERD with esophagitis K21.0 Active 635224645 Problem Spasm of muscle 728.85 Active 68280578 Problem Cocaine use disorder, moderate, in sustained remission F14.21 Active 90557456 Problem Diarrhea 787.91 Active 76580725 Problem Alcohol use disorder, mild, 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 Active 27083584 Problem Tobacco use Z72.0 Active 710142281 Problem Methamphetamine use disorder, severe, 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2 Active 508216907 Problem Insomnia 780.52 Active 611093739 Problem Generalized anxiety disorder F41.1 Active 15993752 ALLERGIES No Information ENCOUNTERS Encounter Location Date Diagnosis [facility] [address] [facility] [id number] [id number] Mar, [facility] [address] [address] Feb, Cocaine use disorder, moderate, in sustained [...] Major depressive disorder, recurrent episode, moderate F33.1 [place] [id number] [place] [address] 29966- 1351 Jan, Cocaine use disorder, moderate, in sustained remission F14.21 [place] [address] [place] [id number] [place] [address] 78548- 1065 Jan, Cocaine use disorder, moderate, in sustained [...] Major depressive disorder, recurrent episode, moderate F33.1 [place] [id number] [place] [address] 47730- 5947 Jan, Dysuria R30.0 and GERD with esophagitis K21.0 [place] [id number] [place] [address] 48385- 4044 December, Major depressive disorder, recurrent episode, moderate F33.1 [place] [id number] [place] [address] 69379- 8114 December, [place] [address] [place] [id number] [place] [address] 29548- 3301 December, Major depressive disorder, recurrent episode, moderate [...] sustained remission F10.11 and Tobacco use Z72.0 [facility] [address] [address] Nov, [facility] [address] [place] [id number] [place] [address] Nov, [facility] [id number] [place] [address] 06859- 7621 Nov, Wellness examination Z00.00 ; Encounter for immunization Z23 ; Screening for osteoporosis Z13.820 ; Screening for breast cancer Z12.31 and Left breast lump N63.20 [facility] [address] [place] [id number] Oct, Dental examination Z01.20 [place] [address] [place] [id number] [place] [address] 31210- 4875 Oct, [place] [address] [place] [id number] [place] [address] 69821- 3858 08 Oct, 2017 [facility] [address] [place] [id number] [place] [address] 24088- 9429 16 Sep, 2017 [place] [address] [place] [id number] [place] [address] 69811- 8054 15 Sep, 2017 [facility] [address] [place] [id number] [place] [address] 23905- 1381 14 Sep, 2017 Left otitis media with effusion H65.92 ; Acute suppurative otitis media of right ear without spontaneous rupture of tympanic membrane, recurrence not specified H66.001 ; Dizziness R42 and Fatigue 780.79 [facility] [address] [place] [address] 09483- 0471 Aug, Major depressive disorder, recurrent episode, moderate [...] sustained remission F10.11 and Tobacco use Z72.0 [facility] [id number] [place] [address] 22388 -7816 Aug, Ingrown right big toenail L60.0 [facility] [address] [place] [id number] [place] [address] 03642- 5902 Aug, [facility] [address] [place] [id number] [place] [address] 05714- 8624 Aug, PTSD (post-traumatic stress disorder) F43.10 [facility] [address] [place] [id number] [place] [address] 86864- 1855 Aug, Major depressive disorder, recurrent episode, moderate F33.1 ; Generalized anxiety disorder F41.1 and Cannabis abuse F12.10 [facility] [address] [id number] [place] [address] 23937- 3276 Jul, [facility] [address] [id number] [place] [address] 79865- 6081 Jul, [facility] [id number] [place] [address] 16547- 7781 Jul, [facility] [address] [place] [id number] [place] [address] 99481- 4739 Jul, Major depressive disorder, recurrent episode, moderate F33.1 ; Generalized anxiety disorder F41.1 and Cannabis abuse F12.10 [facility] [address] [place] [address] [id number] [place] [address] 10707- 4106 Jul, [facility] [address] [place] [address] [id number] [place] [address] 19646- 1813 Jul, [facility] [address] [place] [id number] [place] [address] 94220- 9217 Jul, Hyperlipidemia 272.4 [address] [place] [address] 72570- 8198 Jul, PTSD (post-traumatic stress disorder) F43.10 [place] [address] [place] [id number] [place] [address] 63610- 8362 Jul, Tobacco use Z72.0 ; Alcohol use [...] anxiety disorder F41.1 and Cannabis abuse F12.10 [place] [address] [place] [id number] [place] [address] 51944- 5842 Jul, [place] [id number] [place] [address] 07779- 6975 Jul, Dysuria R30.0 and Mixed hyperlipidemia E78.2 [place] [id number] [place] [address] 59173- 1241 Jun, Major depressive disorder, recurrent episode, moderate F33.1 ; Generalized anxiety disorder F41.1 and Cannabis abuse F12.10 [address] [place] [address] 96678- 8524 Jun, [place] [id number] [place] [address] 63717- 3036 Jun, Generalized anxiety disorder F41.1 ; Major depressive disorder, recurrent episode, moderate F33.1 ; PTSD (post-traumatic stress disorder) F43.10 ; Opioid use disorder, moderate, in sustained remission F11.21 ; Cannabis abuse F12.10 ; Alcohol use disorder, mild, 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 ; Methamphetamine use disorder, severe, 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 ; Cocaine use disorder, moderate, in sustained remission F14.21 and Tobacco use Z72.0 [address] [place] [address] 84666- 4758 Jun, Major depressive disorder, recurrent episode, moderate F33.1 ; Generalized anxiety disorder F41.1 and Cannabis abuse F12.10 [facility] [address] [place] [id number] [place] [address] 19968- 5623 Jun, [facility] [address] [place] [id number] [place] [address] 20920- 6798 Jun, [facility] [address] [place] [id number] [place] [address] 28072- 6230 Jun, Major depressive disorder, recurrent episode, moderate F33.1 ; Generalized anxiety disorder F41.1 and Cannabis abuse F12.10 [facility] [address] [place] [id number] [place] [address] [id number] Mar, Dental examination Z01.20 [facility] [address] [place] [address] [id number] [place] [address] [id number] Feb, Dental examination Z01.20 [facility] [address] [place] [id number] [place] [address] 77613- 1886 Mar, [place] [id number] [place] [address] 99354- 0920 Mar, [place] [address] [place] [id number] [place] [address] 73344- 3119 Feb, Hyperlipidemia 272.4 and Prediabetes 790.29 [place] [id number] [place] [address] 42663- 0971 Feb, Fatigue 780.79 and Hyperlipidemia 272.4 [place] [id number] [place] [address] 27893- 6257 Feb, Lumbago 724.2 ; Hyperlipidemia 272.4 ; Insomnia 780.52 and Fatigue 780.79 [facility] [address] [place] [id number] [place] [address] 93791- 7501 Nov, [facility] [address] [place] [id number] [place] [address] 34912- 9695 Nov, [facility] [place] [facility] [address] [id number] [place] [address]- 5111 Mar, [facility] [place] [facility] [address] [id number] [place] [address]- 3443 Mar, [facility] [place] [facility] [address] [id number] [place] [address]- 5374 Jan, [facility] [place] [facility] [address] [id number] [place] [address]- 1926 Jan, [facility] [place] [facility] [address] [id number] [place] [address]- 4109 December, [facility] [place] [facility] [address] [id number] [place] [address]- 6860 December, [facility] [place] [facility] [address] [id number] [place] [address]- 0544 Nov, [facility] [place] [facility] [address] [id number] [place] [address]- 5349 Nov, [facility] [place] [facility] [address] [id number] [place] [address]- 7032 Nov, [facility] [place] [facility] [address] [id number] [place] [address]- 3711 Nov, [facility] [place] [facility] [address] [id number] [place] [address]- 5132 Nov, [facility] [place] [facility] [address] [id number] [place] [address]- 0169 Nov, [facility] [place] [facility] [address] [id number] [place] [address]- 0441 Oct, [facility] [place] [facility] [address] [id number] [place] [address]- 8049 31 Oct, 2013 [facility] [place] [facility] [address] [id number] [place] [address]- 3972 Oct, [facility] [place] [facility] [address] [id number] [address]- 2691 Oct, [facility] [place] [facility] [address] [id number] [place] [address]- 6816 Oct, [facility] [place] [facility] [address] [id number] [place] [address]- 7012 Oct, [facility] [place] [facility] [address] [id number] [place] [address]- 0128 Oct, [facility] [place] [facility] [address] [id number] [place] [address]- 1345 Oct, [facility] [place] [facility] [address] [id number] [place] [address]- 3327 Oct, [facility] [place] [facility] [address] [id number] [place] [address]- 5422 Oct, [facility] [place] [facility] [address] [facility] [id number] [place] [address]- 8917 Oct, [facility] [place] [facility] [address] [facility] [id number] [place] [address]- 5169 Oct, [facility] [place] [facility] [address] [facility] [id number] [place] [address]- 8287 Oct, [facility] [place] [facility] [address] [facility] [id number] [place] [address]- 8261 Sep, [facility] [place] [facility] [address] [id number] [place] [address]- 9537 Sep, [facility] [place] [facility] [address] [facility] [id number] [place] [address]- 0423 Sep, [facility] [place] [facility] [address] [id number] [place] [address]- 3950 Sep, [facility] [place] [facility] [address] [id number] [place] [address]- 0340 Sep, [facility] [place] [facility] [address] [id number] [place] [address]- 1875 Sep, [facility] [place] [facility] [address] [id number] [place] [address]- 7957 18 Sep, 2013 [facility] [place] [facility] [address] [id number] [place] [address]- 1486 18 Sep, 2013 [facility] [place] [facility] [address] [id number] [place] [address]- 1124 14 Sep, 2013 [facility] [place] [facility] [address] [id number] [place] [address]- 8666 14 Sep, 2013 [facility] [place] [facility] [address] [id number] [place] [address]- 8576 14 Sep, 2013 [facility] [place] [facility] [address] [id number] [place] [address]- 8013 14 Sep, 2013 [facility] [place] [facility] [address] [facility] [id number] [place] [address]- 5953 14 Sep, 2013 [facility] [place] [facility] [address] [id number] [place] [address]- 9462 14 Sep, 2013 [facility] [place] [facility] [address] [id number] [place] [address]- 4838 Sep, [facility] [place] [facility] [address] [facility] [id number] [place] [address]- 5912 Sep, [facility] [place] [facility] [address] [facility] [id number] [place] [address]- 5121 Sep, [facility] [place] [facility] [address] [id number] [place] [address]- 8346 Sep, [facility] [place] [facility] [address] [id number] [place] [address]- 2949 Sep, [facility] [place] [facility] [address] [id number] [place] [address]- 0013 03 Sep, 2013 [facility] [place] [facility] [address] [facility] [id number] [place] [address]- 3204 Aug, [facility] [place] [facility] [address] [id number] [place] [address]- 3701 Aug, [facility] [address] [id number] [place] [address]- 5873 Aug, [facility] [place] [facility] [address] [id number] [place] [address]- 9366 Aug, [facility] [address] [id number] [place] [address]- 6032 Aug, [facility] [place] [facility] [address] [id number] [place] [address]- 3875 Jul, [facility] [place] [facility] [address] [id number] [place] [address]- 0013 Jul, [facility] [place] [facility] [address] [id number] [place] [address]- 2244 Jul, [facility] [place] [facility] [address] [id number] [place] [address]- 1288 Jul, [facility] [place] [facility] [address] [id number] [place] 3893 Jul, [facility] [place] [facility] [address] [id number] [place] [address]- 2754 Jul, [facility] [place] [facility] [address] [id number] [place] [address]- 8307 Jul, [facility] [place] [facility] [address] [id number] [place] [address]- 8619 Jul, [facility] [place] [facility] [address] [id number] [place] [address]- 0110 Jul, [facility] [place] [facility] [address] [id number] [place] [address]- 7484 Jun, [facility] [place] [facility] [address] [id number] [place] [address]- 5866 Jun, [facility] [place] [facility] [address] [id number] [place] [address]- 6600 Jun, [facility] [place] [facility] [address] [id number] [place] [address]- 0645 Jun, [facility] [place] [facility] [address] [id number] [place] [address]- 1411 Jun, [facility] [place] [facility] [address] [id number] [place] [address]- 9235 Jun, [facility] [place] [facility] [address] [id number] [place] [address]- 6870 Jun, [facility] [place] [facility] [address] [id number] [place] [address]- 0987 Jun, [facility] [place] [facility] [address] [id number] [place] [address]- 2936 Jun, [facility] [place] [facility] [address] [id number] [place] [address]- 4299 Jun, [facility] [place] [facility] [address] [id number], [place] [address]- 2471 May, [facility] [place] [facility] [address] [id number] [place] [address]- 6210 May, [facility] [place] [facility] [address] [id number], [place] [address]- 6115 May, [facility] [place] [facility] [address] [id number], [place] [address]- 4135 May, [facility] [place] [facility] [address] [id number], [place] [address]- 0403 16 May, 2013 [facility] [place] [facility] [address] [id number], [place] [address]- 7757 May, [facility] [place] [facility] [address] [id number], [place] [address]- 5206 May, [facility] [place] [facility] [address] [id number], [place] [address]- 6008 May, [facility] [place] [facility] [address] [id number] [place] [address]- 7083 May, [facility] [address] [id number] [place] [address]- 4811 26 Apr, 2013 [facility] [place] [facility] [address] [id number] [place] [address]- 9696 16 Apr, 2013 [facility] [place] [facility] [address] [id number] [place] [address]- 4626 Apr, [facility] [place] [facility] [address] [id number] [place] [address]- 6587 Apr, [facility] [place] [facility] [address] [id number] [place] [address]- 2230 Mar, [facility] [place] [facility] [address] [id number] [place] [address]- 6393 Mar, [facility] [address] [id number] [place] [address]- 9197 Mar, [facility] [place] [facility] [address] [id number] [place] [address]- 3221 Mar, [facility] [place] [facility] [address] [id number] [place] [address]- 5963 Mar, [facility] [place] [facility] [address] [id number] [place] [address]- 1733 Mar, [facility] [place] [facility] [address] [id number] [place] [address]- 0506 Mar, [facility] [place] [facility] [address] [id number] [place] [address]- 9936 Feb, [facility] [place] [facility] [address] [id number] [place] [address]- 7011 Feb, [facility] [place] [facility] [address] [id number] [place] [address]- 2618 Feb, [facility] [place] [facility] [address] [id number] [place] [address]- 1283 Feb, [facility] [place] [facility] [address] [id number] [place] [address]- 1455 23 Feb, 2013 [facility] [address] [id number] [place] [address]- 5565 Feb, [facility] [place] [facility] [address] [id number] [place] [address]- 6013 Feb, [facility] [place] [facility] [address] [id number] [place] [address]- 7482 Feb, [facility] [address] [id number] [place] [address]- 1108 Feb, [facility] [place] [facility] [address] [id number] [place] [address]- 9768 Feb, [facility] [address] [id number] [place] [address]- 0293 Feb, [facility] [address] [id number] [place] [address]- 1719 Jan, [facility] [place] [facility] [address] [id number] [place] [address]- 5293 Jan, [facility] [place] [facility] [address] [id number] [place] [address]- 2906 December, [facility] [place] [facility] [address] [id number] [place] [address]- 6585 December, [facility] [place] [facility] [address] [id number] [place] [address]- 9236 Nov, [facility] [place] [facility] [address] [id number] [place] [address]- 2687 Nov, [facility] [place] [facility] [address] [id number] [place] [address]- 3081 Oct, [facility] [place] [facility] [address] [id number] [place] [address]- 3384 Oct, [facility] [place] [facility] [address] [id number] [place] [address]- 2116 Oct, [facility] [address] [id number] [place] [address]- 7300 Oct, [facility] [address] [id number] [place] [address]- 3976 Sep, [facility] [address] [id number] [place] [address] Sep, [facility] [address] [id number] [place] [address] Sep, [facility] [address] [id number] [place] [address] Sep, [facility] [address] [id number] [place] [address] Aug, [facility] [address] [facility] [id number] [place] [address] Aug, [facility] [address] [id number] [place] [address] Jul, [facility] [address] [id number] [place] [address] Jul, [facility] [address] [facility] [id number] [place] [address] Jul, [facility] [address] [facility] [id number] [place] [address] Jul, [facility] [place] [facility] [address] [id number] [place] [address] Jul, [facility] [place] [facility] [address] [id number] [place] [address] Jul, [facility] [place] [facility] [address] [id number] [place] [address] Jun, [facility] [place] [facility] [address] [facility] [id number] [place] [address] Jun, [facility] [place] [facility] [address] [id number] [place] [address] Jun, [facility] [place] [facility] [address] [id number] [place] [address] Jun, [facility] [place] [facility] [address] [id number] [place] [address] Jun, [facility] [place] [facility] [address] [id number] [place] [address] May, [facility] [place] [facility] [address] [id number] [place] [address] May, [facility] [place] [facility] [address] [id number] [place] [address] May, [facility] [place] [facility] [address] [id number] [place] [address] May, [facility] [place] [facility] [address] [id number] [place] [address] May, [facility] [place] [facility] [address] [id number] [place] [address] May, [facility] [place] [facility] [address] [id number] [place] [address] May, [facility] [place] [facility] [address] [id number] [place] [address] May, [facility] [place] [facility] [address] [id number] [place] [address] Mar, [facility] [place] [facility] [address] [id number] [place] [address] Mar, [facility] [place] [facility] [address] [id number] [place] [address] Mar, [facility] [place] [facility] [address] [id number] [place] [address] Feb, [facility] [place] [facility] [address] [id number] [place] [address] Feb, [facility] [place] [facility] [address] [id number] [place] [address] Feb, [facility] [place] [facility] [address] [id number] [place] [address] Feb, [facility] [place] [facility] [address] [id number] [place] [address] Jan, [facility] [place] [facility] [address] [id number] [place] [address] Jan, [facility] [place] [facility] [address] [id number] [place] [address] Jan, [facility] [place] [facility] [address] [id number] [place] [address] December, [facility] [place] [facility] [address] [id number] [place] [address] Nov, [facility] [place] [facility] [address] [id number] [place] [address] Oct, [facility] [place] [facility] [address] [id number] [place] [address] Oct, [facility] [place] [facility] [address] [id number] [place] [address] Oct, [facility] [place] [facility] [address] [id number] [place] [address] Oct, [facility] [place] [facility] [address] [id number], [place] [address] Aug, [facility] [place] [facility] [address] [id number] [place] [address] Aug, [facility] [place] [facility] [address] [id number] [place] [address] Aug, [facility] [place] [facility] [address] [id number] [place] [address] Aug, [facility] [place] [facility] [address] [id number] [place] [address] 04 Aug, 2011 [facility] [address] [id number] [place] [address] Aug, [facility] [place] [facility] [address] [id number] [place] [address] Aug, [facility] [address] [id number] [place] [address] Aug, [facility] [place] [facility] [address] [id number] [place] [address] Jul, [facility] [address] [id number] [place] [address] Jun, [facility] [place] [facility] [address] [id number] [place] [address] Jun, [facility] [address] [id number] [place] [address] 31 Jul, 2010 [facility] [place] [facility] [address] [id number] [place] [address] Jul, [facility] [place] [facility] [address] [id number] [place] [address] 22 Jul, 2010 [facility] [place] [facility] [address] [id number] [place] [address] 14 Jul, 2010 [facility] [place] [facility] [address] [id number] [place] [address] 14 Jul, 2010 [facility] [place] [facility] [address] [id number] [place] [address] 24 Jun, 2010 [facility] [place] [facility] [address] [id number] [place] [address] May, [facility] [place] [facility] [address] [id number] [place] [address] Mar, [facility] [place] [facility] [address] [id number] [place] [address] Oct, [facility] [id number] [address] Aug, [facility] [id number], [place] [address] Jul, [facility] [id number], [place] [address] Jul, [facility] [address] [id number] [address] Jun, [facility] [id number] [address] Jun, [facility] [id number] [place] [address] May, [facility] [address] [id number], [place] [address] May, [facility] [id number], [place] [address] Mar, [facility] [id number], [place] [address] Mar, [facility] [id number], [place] [address] Oct, IMMUNIZATIONS No Known Immunizations SOCIAL HISTORY Never Assessed REASON FOR VISIT f/ana Mcnulty RN PLAN OF CARE Activity Details Follow Up 4 Weeks, prn Reason: VITAL SIGNS Height 68 in 2017-12-06 Weight 200 lbs 2017-12-06 Heart Rate 62 bpm 2017-12-06 Respiratory Rate 16 2017-12-06 BMI 30.41 kg/m2 2017-12-06 Blood pressure systolic 112 mmHg 2017-12-06 Blood pressure diastolic 82 mmHg 2017-12-06 MEDICATIONS Medication Instructions Dosage Frequency Start Date End Date Duration Status Fish Oil 1000 MG Orally 2 times a day 2capsule 12h Active Prozac 10 MG Orally daily 1 capsule 24h 15 Jun, 2017 Active Zetia 10 mg Orally Once a day 1 tablet 24h 26 Jul, 2017 30 day(s) Active Naproxen 500 MG Orally 2 times a day 1 tablet as needed 12h Active Xanax 1 mg Orally three times a day 1 tablet 8h Active Fenofibrate 48 MG Orally Once a day 1 tablet 24h Jul, 30 day(s ) Active Trazodone HCl 100 MG Orally Once a day 1 tablet at bedtime 24h Feb, 30 days Active Protonix 40 MG Orally Once a day 1 tablet 24h Active Omeprazole 40 MG Orally Once a day 1 capsule 24h Active RESULTS No Results PROCEDURES No Known [...] disc replacement L1- L5 - Dr Muhammad ([place]) Surgical History appendectomy 1983 Surgical History hysterectomy 1993 Surgical History dilatation and curettage Surgical History heart cath- Dr Shaw [address] Meza bowel and intestines 2015 Hospitalization History Hospitalization for surgery only
--- OUTSIDE RECORDS SUMMARY | 2018-04-23 11:32 | XMS REPORT ---
Author Author WILD RODRIGUEZ Organization [facility] Address [address] [place] [address] Care Team Providers [employer] Name Role Phone WILD RODRIGUEZ Unavailable PROBLEMS Type Condition ICD9-CM Code VXC19-NP Code Onset Dates Condition Status SNOMED Code Problem Major depressive disorder, recurrent episode, moderate F33.1 Active 797676771 Problem PTSD (post-traumatic stress disorder) F43.10 Active 06756420 Problem Cannabis abuse F12.10 Active 33760417 Problem GERD with esophagitis K21.0 Active 172226210 Problem Spasm of muscle 728.85 Active 40489070 Problem Cocaine use disorder, moderate, in sustained remission F14.21 Active 62703929 Problem Diarrhea 787.91 Active 57525840 Problem Alcohol use disorder, mild, 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 Active 43829510 Problem Tobacco use Z72.0 Active 690024936 Problem Methamphetamine use disorder, severe, 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2 Active 169308435 Problem Insomnia 780.52 Active 920352698 Problem Generalized anxiety disorder F41.1 Active 31263968 ALLERGIES Substance Reaction Event Type Date Status Pravastatin Sodium itching Drug Allergy December, Active Duragesic-100 vomiting- Patches only Drug Allergy December, Active ENCOUNTERS Encounter Location Date Diagnosis [facility] [id number] [id number] Mar, [place] [id number] [place] [address] 65610- 9151 Feb, Cocaine use disorder, moderate, in sustained [...] Major depressive disorder, recurrent episode, moderate F33.1 [place] [address] [id number] [place] [address] 31356- 7977 Jan, Cocaine use disorder, moderate, in sustained remission F14.21 [place] [id number] [place] [address] 66122- 8504 Jan, Cocaine use disorder, moderate, in sustained [...] Major depressive disorder, recurrent episode, moderate F33.1 [place] [id number] [place] [address] 79494- 2841 Jan, Dysuria R30.0 and GERD with esophagitis K21.0 [place] [id number] [place] [address] 01021- 2553 December, Major depressive disorder, recurrent episode, moderate F33.1 [place] [id number] [place] [address] 36737- 2497 December, [place] [id number] [place] [address] 63110- 9192 December, Major depressive disorder, recurrent episode, moderate [...] sustained remission F10.11 and Tobacco use Z72.0 [facility] [id number] [place] [address] 01096- 9534 Nov, [facility] [id number] [place] [address] Nov, [place] [address] [address]- [address]79 Nov, Wellness examination Z00.00 ; Encounter for immunization Z23 ; Screening for osteoporosis Z13.820 ; Screening for breast cancer Z12.31 and Left breast lump N63.20 [facility] [id number] [place] [address] [id number] Oct, Dental examination Z01.20 [place] [id number] [place] [address] 30097- 1484 Oct, [place] [id number] [place] [address] 71854- 2520 Oct, [facility] [id number] [place] [address] 25754- 0989 16 Sep, 2017 [place] [id number] [place] [address] 19222- 2005 15 Sep, 2017 [facility] [id number] [place] [address] 99416- 7728 14 Sep, 2017 Left otitis media with effusion H65.92 ; Acute suppurative otitis media of right ear without spontaneous rupture of tympanic membrane, recurrence not specified H66.001 ; Dizziness R42 and Fatigue 780.79 [facility] [id number] [place] [address] 01901- 8468 31 Jeremy, 2018 Major depressive disorder, recurrent episode, moderate F33.1 ; Generalized anxiety disorder F41.1 ; Cannabis abuse F12.10 ; PTSD (post- traumatic stress disorder) F43.10 ; Methamphetamine use disorder, severe, 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 ; Cocaine use disorder, moderate, in sustained remission F14.21 ; Opioid use disorder, moderate, in sustained remission F11.21 ; Alcohol use disorder, mild, 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 and Tobacco use Z72.0 [facility] [id number] [place] [address] 66868 -7912 Aug, Ingrown right big toenail L60.0 [facility] [id number] [place] [address] 30814- 7006 Aug, [facility] [id number] [place] [address] 44646- 9396 Aug, PTSD (post-traumatic stress disorder) F43.10 [place] [id number] [place] [address] 05656- 0789 Aug, Major depressive disorder, recurrent episode, moderate F33.1 ; Generalized anxiety disorder F41.1 and Cannabis abuse F12.10 [facility] [id number] [place] [address] 16223- 0640 Jul, [facility] [id number] [place] [address] 28952- 4032 Jul, [place] [id number] [place] [address] 14004- 8133 Jul, [facility] [id number] [place] [address] 73620- 8587 Jul, Major depressive disorder, recurrent episode, moderate F33.1 ; Generalized anxiety disorder F41.1 and Cannabis abuse F12.10 [facility] [id number] [place] [address] [id number]- 1488 Jul, [facility] [id number] [place] [address] 85217- 5329 Jul, [place] [address] [address] 46[address] Jul, Hyperlipidemia 272.4 [place] [id number] [place] [address] Jul, PTSD (post-traumatic stress disorder) F43.10 [place] [id number] [place] [address] 45867- 0378 Jul, Tobacco use Z72.0 ; Alcohol use [...] anxiety disorder F41.1 and Cannabis abuse F12.10 [place] [id number] [place] [address] 85304- 0707 Jul, [place] [id number] [place] [address] 54816- 3474 Jul, Dysuria R30.0 and Mixed hyperlipidemia E78.2 [place] [id number] [place] [address] 39477- 3380 Jun, Major depressive disorder, recurrent episode, moderate F33.1 ; Generalized anxiety disorder F41.1 and Cannabis abuse F12.10 [id number] [place] [address] 36394- 5395 Jun, [id number] [place] [address] 06111- 1153 Jun, Generalized anxiety disorder F41.1 ; Major depressive disorder, recurrent episode, moderate F33.1 ; PTSD (post-traumatic stress disorder) F43.10 ; Opioid use disorder, moderate, in sustained remission F11.21 ; Cannabis abuse F12.10 ; Alcohol use disorder, mild, 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 ; Methamphetamine use disorder, severe, 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 ; Cocaine use disorder, moderate, in sustained remission F14.21 and Tobacco use Z72.0 [facility] [id number] [place] [address] 79970- 9324 Jun, Major depressive disorder, recurrent episode, moderate F33.1 ; Generalized anxiety disorder F41.1 and Cannabis abuse F12.10 [facility] [id number] [place] [address] 65960- 1238 Jun, [facility] [address] 30321- 6999 Jun, [place] [id number] [place] [address] 46152- 7411 Jun, Major depressive disorder, recurrent episode, moderate F33.1 ; Generalized anxiety disorder F41.1 and Cannabis abuse F12.10 [facility] [address] [id number] Mar, Dental examination Z01.20 [facility] [address] [id number] Feb, Dental examination Z01.20 [place] [id number] [place] [address] 08650- 0348 Mar, [place] [id number] [place] [address] 54826- 7032 Mar, [place] [id number] [place] [address] 40369- 7527 Feb, Hyperlipidemia 272.4 and Prediabetes 790.29 [place] [id number] [place] [address] 55282- 1505 Feb, Fatigue 780.79 and Hyperlipidemia 272.[address] 19644- 3518 Feb, Lumbago 724.2 ; Hyperlipidemia 272.4 ; Insomnia 780.52 and Fatigue 780.79 [place] [id number] [place] [address] 66531- 8548 Nov, [facility] [place] [facility] [address] [id number] [place] [address]- 0512 Nov, [facility] [place] [facility] [address] [id number] [place] [address]- 0330 Mar, [facility] [place] [facility] [address] [id number] [place] [address]85 Mar, [facility] [place] [facility] [address] [id number] [place] [address]- 5114 Jan, [facility] [place] [facility] [address] [id number] [place] [address]- 1198 Jan, [facility] [place] [facility] [address] [id number] [place] [address]- 4122 December, [facility] [place] [facility] [address] [id number] [place] [address]- 3851 December, [facility] [place] [facility] [address] [id number] [place] [address]- 5993 Nov, [facility] [place] [facility] [address] [id number] [place] [address]- 1051 Nov, [facility] [place] [facility] [address] [id number] [place] [address]- 8395 Nov, [facility] [place] [facility] [address] [id number] [place] [address]- 2960 Nov, [facility] [place] [facility] [address] [id number] [place] [address]- 7961 Nov, [facility] [place] [facility] [address] [id number] [place] [address]- 1664 Nov, [facility] [place] [facility] [address] [id number] [place] [address]- 7567 Oct, [facility] [place] [facility] [address] [id number] [place]- 0556 Oct, [facility] [place] [facility] [address] [id number] [place] [address]- 5732 Oct, [facility] [place] [facility] [address] [id number] [place] [address]- 7386 Oct, [facility] [place] [facility] [address] [id number] [place] [address]- 7715 Oct, [facility] [place] [facility] [address] [id number] [place] [address]- 9346 Oct, [facility] [place] [facility] [address] [id number] [place] [address]- 2903 Oct, [facility] [place] [facility] [address] [id number] [place] [address]- 3420 Oct, [facility] [place] [facility] [address] [id number] [place] [address]- 7939 Oct, [facility] [place] [facility] [address] [id number] [place] [address]- 4412 Oct, [facility] [place] [facility] [address] [id number] [place] [address]- 8985 Oct, [facility] [place] [facility] [address] [id number] [place] [address]- 7553 Oct, [facility] [place] [facility] [address] [id number] [place] [address]- 7190 Oct, [facility] [place] [facility] [address] [id number] [place] [address]- 8932 Sep, [facility] [place] [facility] [address] [id number] [place] [address]- 4315 Sep, [facility] [place] [facility] [address] [id number] [place] [address]- 3993 Sep, [facility] [place] [facility] [address] [id number] [place] [address]- 0921 Sep, [facility] [place] [facility] [address] [id number] [place] [address]- 0450 Sep, [facility] [place] [facility] [address] [id number] [place] [address]- 7972 20 Sep, 2013 [facility] [place] [facility] [address] [id number] [place] [address]- 9015 18 Sep, 2013 [facility] [place] [facility] [address] [id number] [place] [address]- 1826 18 Sep, 2013 [facility] [place] [facility] [address] [id number] [place] [address]- 9012 14 Sep, 2013 [facility] [place] [facility] [address] [id number] [place] [address]- 7569 14 Sep, 2013 [facility] [place] [facility] [address] [id number] [place] [address]- 3667 14 Sep, 2013 [facility] [place] [facility] [address] [facility] [id number] [place] [address]- 1523 14 Sep, 2013 [facility] [place] [facility] [address] [id number] [place] [address]- 2667 14 Sep, 2013 [facility] [place] [facility] [address] [id number] [place] [address]- 5047 14 Sep, 2013 [facility] [place] [facility] [address] [id number] [place] [address]- 1250 13 Sep, 2013 [facility] [place] [facility] [address] [id number] [place] [address]- 8763 13 Sep, 2013 [facility] [place] [facility] [address] [id number] [place] [address]- 0933 12 Sep, 2013 [facility] [place] [facility] [address] [id number] [place] [address]- 1993 12 Sep, 2013 [facility] [place] [facility] [address] [id number] [place] [address]- 7690 03 Sep, 2013 [facility] [place] [facility] [address] [id number] [place] [address]- 7915 03 Sep, 2013 [facility] [place] [facility] [address] [id number] [place] [address]- 3772 Aug, [facility] [address] [id number] [place] [address]- 6975 Aug, [facility] [place] [facility] [address] [id number] [place] [address]- 6036 Aug, [facility] [address] [id number] [place] [address]- 7815 Aug, [facility] [address] [id number] [place] [address]- 7733 Aug, [facility] [address] [id number] [place] 9818 Jul, [facility] [address] [id number] [place] [address]- 9491 Jul, [facility] [address] [id number] [place] [address]- 9136 Jul, [facility] [address] [id number] [place] [address]- 1090 Jul, [facility] [place] [facility] [address] [id number] [place] [address]- 4757 Jul, [facility] [address] [facility] [id number] [place] [address]- 2570 Jul, [facility] [place] [facility] [address] [id number] [place] [address]- 3494 Jul, [facility] [place] [facility] [address] [id number] [place] [address]- 3323 Jul, [facility] [place] [facility] [address] [id number] [place] [address]- 7747 Jul, [facility] [place] [facility] [address] [id number] [place] [address]- 7168 Jun, [facility] [place] [facility] [address] [id number] [place] [address]- 2980 Jun, [facility] [place] [facility] [address] [id number] [place] [address]- 3422 Jun, [facility] [place] [facility] [address] [id number] [place] [address]- 5456 Jun, [facility] [place] [facility] [address] [id number] [place] [address]- 7722 Jun, [facility] [place] [facility] [address] [id number] [place] [address]- 9335 Jun, [facility] [place] [facility] [address] [id number] [place] [address]- 6030 Jun, [facility] [place] [facility] [address] [id number] [place] [address]- 2339 Jun, [facility] [place] [facility] [address] [id number] [place] [address]- 4596 Jun, [facility] [place] [facility] [address] [id number] [place] [address]- 4599 Jun, [facility] [place] [facility] [address] [id number] [place] [address]- 8127 May, [facility] [place] [facility] [address] [id number] [place] [address]- 0085 May, [facility] [place] [facility] [address] [id number] [place] [address]- 0682 May, [facility] [place] [facility] [address] [id number], [place] [address]- 1336 May, [facility] [place] [facility] [address] [id number] [place] [address]- 8264 16 May, 2013 [facility] [place] [facility] [address] [id number] [place] [address]- 0448 May, [facility] [place] [facility] [address] [id number], [place] [address]- 7150 May, [facility] [place] [facility] [address] [id number], [place] [address]- 8521 May, [facility] [place] [facility] [address] [id number] [place] [address]- 2324 May, [facility] [place] [facility] [address] [id number] [place] [address]- 0394 Apr, [facility] [place] [facility] [address] [id number] [place] [address]- 2000 Apr, [facility] [place] [facility] [address] [id number] [place] [address]- 2029 Apr, [facility] [place] [facility] [address] [id number] [place] [address]- 3628 Apr, [facility] [place] [facility] [address] [id number] [place] [address]- 6823 Mar, [facility] [place] [facility] [address] [id number] [place] [address]- 5374 Mar, [facility] [place] [facility] [address] [id number] [place] [address]- 2097 Mar, [facility] [place] [facility] [address] [id number] [place] [address]- 4089 Mar, [facility] [place] [facility] [address] [id number] [place] [address]- 3706 Mar, [facility] [place] [facility] [address] [id number] [place] [address]- 3713 Mar, [facility] [place] [facility] [address] [id number] [place] [address]- 9557 Mar, [facility] [place] [facility] [address] [id number] [place] [address]- 6976 Feb, [facility] [place] [facility] [address] [id number] [place] [address]- 6553 Feb, [facility] [place] [facility] [address] [id number] [place] [address]- 5476 Feb, [facility] [place] [facility] [address] [id number] [place] [address]- 7856 24 Feb, 2013 [facility] [address] [id number] [place] [address]- 3290 Feb, [facility] [address] [id number] [place] [address]- 3578 Feb, [facility] [address] [id number] [place] [address]- 2563 Feb, [facility] [address] [id number] [place] [address]- 2295 Feb, [facility] [address] [id number] [place] [address]- 5572 Feb, [facility] [address] [id number] [place] [address]- 3646 Feb, [facility] [address] [id number] [place] [address]- 3138 Feb, [facility] [address] [id number] [place] [address]- 2772 Jan, [facility] [address] [id number] [place] [address]- 5401 Jan, [facility] [address] [id number] [place] [address]- 0679 December, [facility] [address] [id number] [place] [address]- 2365 December, [facility] [address] [id number] [place] [address]- 5258 Nov, [facility] [address] [id number] [place] [address]- 2192 Nov, [facility] [address] [id number] [place] [address]- 9252 Oct, [facility] [address] [id number] [place] [address]- 8249 Oct, [facility] [address] [id number] [place] [address]- 9781 Oct, [facility] [place] [facility] [address] [id number] [place] [address]- 3826 Oct, [facility] [address] [id number] [place] [address]- 5241 Sep, [facility] [place] [facility] [address] [id number] [place] [address]- 6897 Sep, [facility] [address] [id number] [place] [address]- 5920 Sep, [facility] [address] [id number] [place] [address]- 7661 Sep, [facility] [address] [id number] [place] [address]- 4853 Aug, [facility] [place] [facility] [address] [id number] [place] [address]- 9534 Aug, [facility] [address] [id number] [place] [address] Jul, [facility] [place] [facility] [address] [id number] [place] [address] Jul, [facility] [address] [id number] [place] [address] Jul, [facility] [place] [facility] [address] [id number] [place] [address] Jul, [facility] [place] [facility] [address] [id number] [place] [address] Jul, [facility] [place] [facility] [address] [id number] [place] [address] Jul, [facility] [place] [facility] [address] [id number] [place] [address] Jun, [facility] [place] [facility] [address] [id number] [place] [address] Jun, [facility] [place] [facility] [address] [id number] [place] [address] Jun, [facility] [place] [facility] [address] [id number] [place] [address] Jun, [facility] [place] [facility] [address] [id number] [place] [address] Jun, [facility] [place] [facility] [address] [id number] [place] [address] May, [facility] [place] [facility] [address] [id number] [place] [address] May, [facility] [place] [facility] [address] [id number] [place] [address] May, [facility] [place] [facility] [address] [id number] [place] [address] May, [facility] [place] [facility] [address] [id number] [place] [address] May, [facility] [place] [facility] [address] [id number] [place] [address] May, [facility] [place] [facility] [address] [id number] [place] [address] May, [facility] [place] [facility] [address] [id number] [place] [address] May, [facility] [place] [facility] [address] [id number] [place] [address] Mar, [facility] [place] [facility] [address] [id number] [place] [address] Mar, [facility] [place] [facility] [address] [id number] [place] [address] Mar, [facility] [place] [facility] [address] [id number] [place] [address] Feb, [facility] [place] [facility] [address] [id number] [place] [address] Feb, [facility] [place] [facility] [address] [id number] [place] [address] Feb, [facility] [place] [facility] [address] [id number] [place] [address] Feb, [facility] [place] [facility] [address] [id number] [place] [address] Jan, [facility] [address] [id number] [place] [address] Jan, [facility] [place] [facility] [address] [id number] [place] [address] Jan, [facility] [address] [id number] [place] [address] December, [facility] [address] [id number] [place] [address] Nov, [facility] [address] [id number] [place] [address] Oct, [facility] [place] [facility] [address] [id number] [place] [address] Oct, [facility] [place] [facility] [address] [id number] [place] [address] Oct, [facility] [place] [facility] [address] [id number] [place] [address] Oct, [facility] [place] [facility] [address] [id number] [place] [address] Aug, [facility] [place] [facility] [address] [id number] [place] [address] Aug, [facility] [place] [facility] [address] [id number] [place] [address] Aug, [facility] [place] [facility] [address] [id number] [place] [address] Aug, [facility] [place] [facility] [address] [id number] [place] [address] Aug, [facility] [place] [facility] [address] [id number] [place] [address] Aug, [facility] [facility] [address] [id number] [place] [address] Aug, [facility] [place] [facility] [address] [id number] [place] [address] Aug, [facility] [place] [facility] [address] [id number] [place] [address] Jul, [facility] [place] [facility] [address] [id number] [place] [address] Jun, [facility] [place] [facility] [address] [id number] [place] [address] Jun, [facility] [place] [facility] [address] [id number] [place] [address] Jul, [facility] [place] [facility] [address] [id number] [place] [address] Jul, [facility] [place] [facility] [address] [id number] [place] [address] Jul, [facility] [place] [facility] [address] [id number] [place] [address] 14 Jul, 2010 [facility] [place] [facility] [address] [id number] [place] [address] 14 Jul, 2010 [facility] [place] [facility] [address] [id number] [place] [address] 24 Jun, 2010 [facility] [place] [facility] [address] [id number] [place] [address] May, [facility] [place] [facility] [address] [id number] [place] [address] Mar, [facility] [place] [facility] [id number] [place] [address] 10 Oct, 2009 [facility] [id number] [place] [address] Aug, [facility] [id number] [place] [address] Jul, [facility] [id number] [place] [address] Jul, [facility] [id number], [place] [address] Jun, [facility] [id number] [place] [address] Jun, [facility] [id number] [place] [address] May, [facility] [id number] [place] [address] May, [facility] [id number] [place] [address] Mar, [facility] [id number] [place] [address] Mar, [facility] [id number] [address] Oct, IMMUNIZATIONS No Known Immunizations SOCIAL HISTORY Never Assessed REASON FOR VISIT med refill PLAN OF CARE VITAL SIGNS MEDICATIONS Medication Instructions Dosage Frequency Start Date End Date Duration Status Protonix 40 MG Orally Once a day 1 tablet 24h December, 30 day(s) Active RESULTS No Results PROCEDURES No Known [...] Surgical History carpal tunnel release- bilateral- Dr Jimmy Surgical History Upper Lateral Release- Tennis Elbow- Dr Marquez Surgical History rotator cuff tear repair on left and right shoulder-- done at different times (2 years apart) - Dr Marquez Surgical History Spinal disc replacement L1- L5 - Dr Muhammad ([place]) Surgical History appendectomy 1983 Surgical History hysterectomy 1993 Surgical History dilatation and curettage Surgical History heart cath- Dr Shaw [address] Meza bowel and intestines seperated 2015 Hospitalization History Hospitalization for surgery only
--- OUTSIDE RECORDS SUMMARY | 2018-04-23 11:33 | XMS REPORT ---
Author Author RAUL VASQUEZ [facility] Address [address] [place] [address] Care Team Providers Care Law Clerk Name Role Phone JOSEVASQUEZ ZUNIGA Unavailable PROBLEMS Type Condition ICD9-CM Code CTD94-PU Code Onset Dates Condition Status SNOMED Code Problem Major depressive disorder, recurrent episode, moderate F33.1 Active 770368045 Problem PTSD (post-traumatic stress disorder) F43.10 Active 45677023 Problem Cannabis abuse F12.10 Active 53063898 Problem GERD with esophagitis K21.0 Active 377558346 Problem Spasm of muscle 728.85 Active 46349711 Problem Cocaine use disorder, moderate, in sustained remission F14.21 Active 07327828 Problem Diarrhea 787.91 Active 26438287 Problem Alcohol use disorder, mild, 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 Active 14100115 Problem Tobacco use Z72.0 Active 030571208 Problem Methamphetamine use disorder, severe, 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2 Active 770560414 Problem Insomnia 780.52 Active 939177636 Problem Generalized anxiety disorder F41.1 Active 24458265 ALLERGIES No Information ENCOUNTERS Encounter Location Date Diagnosis [facility] [address] [facility] [id number] [id number] Mar, [facility] [address] [address] Feb, Cocaine use disorder, moderate, in sustained [...] Major depressive disorder, recurrent episode, moderate F33.1 [place] [id number] [place] [address] 61015- 4390 Jan, Cocaine use disorder, moderate, in sustained remission F14.21 [place] [address] [place] [id number] [place] [address] 63170- 2782 Jan, Cocaine use disorder, moderate, in sustained [...] Major depressive disorder, recurrent episode, moderate F33.1 [place] [id number] [place] [address] 77385- 9115 Jan, Dysuria R30.0 and GERD with esophagitis K21.0 [place] [id number] [place] [address] 57364- 5670 December, Major depressive disorder, recurrent episode, moderate F33.1 [place] [id number] [place] [address] 55759- 8941 December, [place] [address] [place] [id number] [place] [address] 87311- 5597 December, Major depressive disorder, recurrent episode, moderate [...] sustained remission F10.11 and Tobacco use Z72.0 [facility] [address] [address] Nov, [facility] [address] [place] [id number] [place] [address] Nov, [facility] [id number] [place] [address] 67770- 1782 Nov, Wellness examination Z00.00 ; Encounter for immunization Z23 ; Screening for osteoporosis Z13.820 ; Screening for breast cancer Z12.31 and Left breast lump N63.20 [facility] [id number] [place] [id number] Oct, Dental examination Z01.20 [place] [address] [place] [id number] [place] [address] 08252- 9695 Oct, [place] [address] [place] [id number] [place] [address] 70321- 2327 08 Oct, 2017 [facility] [address] [place] [id number] [place] [address] 37479- 6605 16 Sep, 2017 [place] [address] [place] [id number] [place] [address] 40942- 3925 15 Sep, 2017 [facility] [address] [place] [id number] [place] [address] 67477- 3936 14 Sep, 2017 Left otitis media with effusion H65.92 ; Acute suppurative otitis media of right ear without spontaneous rupture of tympanic membrane, recurrence not specified H66.001 ; Dizziness R42 and Fatigue 780.79 [facility] [id number] [place] [address] 55386- 2191 Aug, Major depressive disorder, recurrent episode, moderate [...] sustained remission F10.11 and Tobacco use Z72.0 [facility] [id number] [place] [address] 76589 -2876 Aug, Ingrown right big toenail L60.0 [facility] [address] [place] [id number] [place] [address] 81229- 3536 Aug, [facility] [address] [place] [id number] [place] [address] 65787- 5422 Aug, PTSD (post-traumatic stress disorder) F43.10 [facility] [address] [place] [id number] [place] [address] 02657- 0166 Aug, Major depressive disorder, recurrent episode, moderate F33.1 ; Generalized anxiety disorder F41.1 and Cannabis abuse F12.10 [facility] [address] [place] [address] [id number] [place] [address] 01951- 0048 Jul, [facility] [address] [place] [id number] [place] [address] 81688- 7042 Jul, [facility] [id number] [place] [address] 56320- 3842 Jul, [facility] [address] [place] [address] [id number] [place] [address] 78767- 8058 Jul, Major depressive disorder, recurrent episode, moderate F33.1 ; Generalized anxiety disorder F41.1 and Cannabis abuse F12.10 [facility] [address] [place] [id number] [place] [address] 35263- 9576 Jul, [facility] [address] [place] [id number] [place] [address] 64363- 3205 Jul, [facility] [address] [place] [id number] [place] [address] 99466- 7646 Jul, Hyperlipidemia 272.4 [address] [place] [address] 07081- 1587 Jul, PTSD (post-traumatic stress disorder) F43.10 [place] [address] [place] [id number] [place] [address] 67487- 7491 Jul, Tobacco use Z72.0 ; Alcohol use [...] anxiety disorder F41.1 and Cannabis abuse F12.10 [place] [address] [place] [id number] [place] [address] 26650- 9209 Jul, [place] [id number] [place] [address] 83460- 9797 Jul, Dysuria R30.0 and Mixed hyperlipidemia E78.2 [place] [id number] [place] [address] 66606- 8130 Jun, Major depressive disorder, recurrent episode, moderate F33.1 ; Generalized anxiety disorder F41.1 and Cannabis abuse F12.10 [address] [place] [address] 94176- 2056 Jun, [place] [id number] [place] [address] 08330- 8339 Jun, Generalized anxiety disorder F41.1 ; Major depressive disorder, recurrent episode, moderate F33.1 ; PTSD (post-traumatic stress disorder) F43.10 ; Opioid use disorder, moderate, in sustained remission F11.21 ; Cannabis abuse F12.10 ; Alcohol use disorder, mild, 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 ; Methamphetamine use disorder, severe, 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 ; Cocaine use disorder, moderate, in sustained remission F14.21 and Tobacco use Z72.0 [address] [place] [address] 69206- 3693 Jun, Major depressive disorder, recurrent episode, moderate F33.1 ; Generalized anxiety disorder F41.1 and Cannabis abuse F12.10 [facility] [address] [place] [id number] [place] [address] 02532- 9738 Jun, [facility] [address] [place] [id number] [place] [address] 64511- 7737 Jun, [facility] [address] [place] [id number] [place] [address] 62548- 9319 Jun, Major depressive disorder, recurrent episode, moderate F33.1 ; Generalized anxiety disorder F41.1 and Cannabis abuse F12.10 [facility] [address] [place] [id number] [place] [address] [id number] Mar, Dental examination Z01.20 [facility] [address] [place] [id number] [place] [address] [id number] Feb, Dental examination Z01.20 [facility] [address] [place] [id number] [place] [address] 70216- 4998 Mar, [place] [id number] [place] [address] 63230- 5321 Mar, [place] [address] [place] [id number] [place] [address] 85933- 7851 Feb, Hyperlipidemia 272.4 and Prediabetes 790.29 [place] [id number] [place] [address] 40587- 0886 Feb, Fatigue 780.79 and Hyperlipidemia 272.4 [place] [id number] [place] [address] 77955- 2673 Feb, Lumbago 724.2 ; Hyperlipidemia 272.4 ; Insomnia 780.52 and Fatigue 780.79 [facility] [address] [place] [id number] [place] [address] 97834- 6106 Nov, [facility] [address] [place] [id number] [place] [address] 08174- 7985 Nov, [facility] [place] [facility] [address] [id number] [place] [address] 5007 Mar, [facility] [place] [facility] [address] [id number] [place] [address]- 5789 Mar, [facility] [place] [facility] [address] [id number] [place] [address]- 6771 Jan, [facility] [place] [facility] [address] [id number] [place] [address]- 7276 Jan, [facility] [place] [facility] [address] [id number] [place] [address]- 7651 December, [facility] [place] [facility] [address] [id number] [place] [address]- 5251 December, [facility] [place] [facility] [address] [id number] [place] [address]- 9103 Nov, [facility] [place] [facility] [address] [id number] [place] [address]- 0529 Nov, [facility] [place] [facility] [address] [id number] [place] [address]- 6401 Nov, [facility] [place] [facility] [address] [id number] [place] [address]- 4869 Nov, [facility] [place] [facility] [address] [id number] [place] [address]- 2867 Nov, [facility] [place] [facility] [address] [id number] [place] [address]- 3886 Nov, [facility] [place] [facility] [address] [id number] [place] [address]- 0261 Oct, [facility] [place] [facility] [address] [id number] [place] [address]- 0067 31 Oct, 2013 [facility] [place] [facility] [address] [id number] [place] [address]- 8872 Oct, [facility] [place] [facility] [address] [id number] [address]- 9655 Oct, [facility] [place] [facility] [address] [id number] [place] [address]- 8245 Oct, [facility] [place] [facility] [address] [id number] [place] [address]- 0771 Oct, [facility] [place] [facility] [address] [id number] [place] [address]- 7964 Oct, [facility] [place] [facility] [address] [id number] [place] [address]- 8910 Oct, [facility] [place] [facility] [address] [id number] [place] [address]- 3187 Oct, [facility] [place] [facility] [address] [id number] [place] [address]- 1264 Oct, [facility] [place] [facility] [address] [facility] [id number] [place] [address]- 7032 Oct, [facility] [place] [facility] [address] [facility] [id number] [place] [address]- 8139 Oct, [facility] [place] [facility] [address] [facility] [id number] [place] [address]- 4861 Oct, [facility] [place] [facility] [address] [facility] [id number] [place] [address]- 5898 Sep, [facility] [place] [facility] [address] [id number] [place] [address]- 6418 Sep, [facility] [place] [facility] [address] [facility] [id number] [place] [address]- 1734 Sep, [facility] [place] [facility] [address] [id number] [place] [address]- 4301 Sep, [facility] [place] [facility] [address] [id number] [place] [address]- 4193 Sep, [facility] [place] [facility] [address] [id number] [place] [address]- 9817 Sep, [facility] [place] [facility] [address] [id number] [place] [address]- 7462 18 Sep, 2013 [facility] [place] [facility] [address] [id number] [place] [address]- 1456 18 Sep, 2013 [facility] [place] [facility] [address] [id number] [place] [address]- 9432 14 Sep, 2013 [facility] [place] [facility] [address] [id number] [place] [address]- 0051 14 Sep, 2013 [facility] [place] [facility] [address] [id number] [place] [address]- 6313 14 Sep, 2013 [facility] [place] [facility] [address] [id number] [place] [address]- 7165 14 Sep, 2013 [facility] [place] [facility] [address] [facility] [id number] [place] [address]- 2278 14 Sep, 2013 [facility] [place] [facility] [address] [id number] [place] [address]- 2387 14 Sep, 2013 [facility] [place] [facility] [address] [id number] [place] [address]- 9938 Sep, [facility] [place] [facility] [address] [facility] [id number] [place] [address]- 7740 Sep, [facility] [place] [facility] [address] [facility] [id number] [place] [address]- 1028 Sep, [facility] [place] [facility] [address] [id number] [place] [address]- 8478 Sep, [facility] [place] [facility] [address] [id number] [place] [address]- 1881 Sep, [facility] [place] [facility] [address] [id number] [place] [address]- 6924 03 Sep, 2013 [facility] [place] [facility] [address] [facility] [id number] [place] [address]- 7826 Aug, [facility] [place] [facility] [address] [id number] [place] [address]- 5571 Aug, [facility] [address] [id number] [place] [address]- 4102 Aug, [facility] [place] [facility] [address] [id number] [place] [address]- 2466 Aug, [facility] [address] [id number] [place] [address]- 4375 Aug, [facility] [place] [facility] [address] [id number] [place] [address]- 4075 Jul, [facility] [place] [facility] [address] [id number] [place] [address]- 3131 Jul, [facility] [place] [facility] [address] [id number] [place] [address]- 5935 Jul, [facility] [place] [facility] [address] [id number] [place] [address]- 3678 Jul, [facility] [place] [facility] [address] [id number] [place] 9373 Jul, [facility] [place] [facility] [address] [id number] [place] [address]- 2656 Jul, [facility] [place] [facility] [address] [id number] [place] [address]- 1676 Jul, [facility] [place] [facility] [address] [id number] [place] [address]- 0952 Jul, [facility] [place] [facility] [address] [id number] [place] [address]- 8359 Jul, [facility] [place] [facility] [address] [id number] [place] [address]- 4427 Jun, [facility] [place] [facility] [address] [id number] [place] [address]- 2146 Jun, [facility] [place] [facility] [address] [id number] [place] [address]- 8673 Jun, [facility] [place] [facility] [address] [id number] [place] [address]- 9001 Jun, [facility] [place] [facility] [address] [id number] [place] [address]- 4888 Jun, [facility] [place] [facility] [address] [id number] [place] [address]- 3719 Jun, [facility] [place] [facility] [address] [id number] [place] [address]- 7883 Jun, [facility] [place] [facility] [address] [id number] [place] [address]- 4079 Jun, [facility] [place] [facility] [address] [id number] [place] [address]- 7320 Jun, [facility] [place] [facility] [address] [id number] [place] [address]- 8452 Jun, [facility] [place] [facility] [address] [id number] [address]- 0299 May, [facility] [place] [facility] [address] [id number] [place] [address]- 6403 May, [facility] [place] [facility] [address] [id number] [address]- 8142 May, [facility] [place] [facility] [address] [id number][place] [address]- 6129 May, [facility] [place] [facility] [address] [id number], [place] [address]- 8093 16 May, 2013 [facility] [place] [facility] [address] [id number][place] [address]- 3474 May, [facility] [place] [facility] [address] [id number], [place] [address]- 9436 May, [facility] [place] [facility] [address] [id number] [address]- 9158 May, [facility] [place] [facility] [address] [id number] [place] [address]- 2547 May, [facility] [address] [id number] [place] [address]- 9194 26 Apr, 2013 [facility] [place] [facility] [address] [id number] [place] [address]- 2386 16 Apr, 2013 [facility] [place] [facility] [address] [id number] [place] [address]- 9226 Apr, [facility] [place] [facility] [address] [id number] [place] [address]- 2556 Apr, [facility] [place] [facility] [address] [id number] [place] [address]- 2605 Mar, [facility] [place] [facility] [address] [id number] [place] [address]- 5409 Mar, [facility] [address] [id number] [place] [address]- 9735 Mar, [facility] [place] [facility] [address] [id number] [place] [address]- 4036 Mar, [facility] [place] [facility] [address] [id number] [place] [address]- 0602 Mar, [facility] [place] [facility] [address] [id number] [place] [address]- 7693 Mar, [facility] [place] [facility] [address] [id number] [place] [address]- 8280 Mar, [facility] [place] [facility] [address] [id number] [place] [address]- 4858 Feb, [facility] [place] [facility] [address] [id number] [place] [address]- 5543 Feb, [facility] [place] [facility] [address] [id number] [place] [address]- 1056 Feb, [facility] [place] [facility] [address] [id number] [place] [address]- 6409 Feb, [facility] [place] [facility] [address] [id number] [place] [address]- 9306 23 Feb, 2013 [facility] [address] [id number] [place] [address]- 5554 Feb, [facility] [place] [facility] [address] [id number] [place] [address]- 0876 Feb, [facility] [place] [facility] [address] [id number] [place] [address]- 1402 Feb, [facility] [address] [id number] [place] [address]- 9699 Feb, [facility] [place] [facility] [address] [id number] [place] [address]- 2602 Feb, [facility] [address] [id number] [place] [address]- 1252 Feb, [facility] [address] [id number] [place] [address]- 4331 Jan, [facility] [place] [facility] [address] [id number] [place] [address]- 9410 Jan, [facility] [place] [facility] [address] [id number] [place] [address]- 1448 December, [facility] [place] [facility] [address] [id number] [place] [address]- 7310 December, [facility] [place] [facility] [address] [id number] [place] [address]- 5911 Nov, [facility] [place] [facility] [address] [id number] [place] [address]- 9178 Nov, [facility] [place] [facility] [address] [id number] [place] [address]- 7319 Oct, [facility] [place] [facility] [address] [id number] [place] [address]- 7297 Oct, [facility] [place] [facility] [address] [id number] [place] [address]- 9966 Oct, [facility] [address] [id number] [place] [address]- 8200 Oct, [facility] [address] [id number] [place] [address]- 4256 Sep, [facility] [address] [id number] [place] [address] 2546 Sep, [facility] [address] [id number] [place] [address]- 4749 Sep, [facility] [address] [id number] [place] [address]- 7656 Sep, [facility] [address] [id number] [place] [address]- 5424 Aug, [facility] [address] [facility] [id number] [place] [address]- 4941 Aug, [facility] [address] [id number] [place] [address]- 7311 Jul, [facility] [address] [id number] [place] [address] Jul, [facility] [address] [facility] [place] [id number] [place] [address] Jul, [facility] [address] [facility] [place] [id number] [place] [address] Jul, [facility] [place] [facility] [address] [id number] [place] [address] Jul, [facility] [place] [facility] [address] [id number] [place] [address] Jul, [facility] [place] [facility] [address] [id number] [place] [address] Jun, [facility] [place] [facility] [address] [facility] [place] [id number] [place] [address] Jun, [facility] [place] [facility] [address] [id number] [place] [address] Jun, [facility] [place] [facility] [address] [id number] [place] [address] Jun, [facility] [place] [facility] [address] [id number] [place] [address] Jun, [facility] [place] [facility] [address] [id number] [place] [address] May, [facility] [place] [facility] [address] [id number] [place] [address] May, [facility] [place] [facility] [address] [id number] [place] [address] May, [facility] [place] [facility] [address] [id number] [place] [address] May, [facility] [place] [facility] [address] [id number] [place] [address] May, [facility] [place] [facility] [address] [id number] [place] [address] May, [facility] [place] [facility] [address] [id number] [place] [address] May, [facility] [place] [facility] [address] [id number] [place] [address] May, [facility] [place] [facility] [address] [id number] [place] [address] Mar, [facility] [place] [facility] [address] [id number] [place] [address] Mar, [facility] [place] [facility] [address] [id number] [place] [address] Mar, [facility] [place] [facility] [address] [id number] [place] [address] Feb, [facility] [place] [facility] [address] [id number] [place] [address] Feb, [facility] [place] [facility] [address] [id number] [place] [address] Feb, [facility] [place] [facility] [address] [id number] [place] [address] Feb, [facility] [place] [facility] [address] [id number] [place] [address] Jan, [facility] [place] [facility] [address] [id number] [place] [address] Jan, [facility] [place] [facility] [address] [id number] [place] [address] Jan, [facility] [place] [facility] [address] [id number] [place] [address] December, [facility] [place] [facility] [address] [id number] [place] [address] Nov, [facility] [place] [facility] [address] [id number] [place] [address] Oct, [facility] [place] [facility] [address] [id number] [place] [address] Oct, [facility] [place] [facility] [address] [id number] [place] [address] Oct, [facility] [place] [facility] [address] [id number] [place] [address] Oct, [facility] [place] [facility] [address] [id number] [address] Aug, [facility] [place] [facility] [address] [id number] [place] [address] Aug, [facility] [place] [facility] [address] [id number] [place] [address] Aug, [facility] [place] [facility] [address] [id number] [place] [address] Aug, [facility] [place] [facility] [address] [id number] [place] [address] 04 Aug, 2011 [facility] [address] [id number] [place] [address] Aug, [facility] [place] [facility] [address] [id number] [place] [address] Aug, [facility] [address] [id number] [place] [address] Aug, [facility] [place] [facility] [address] [id number] [place] [address] Jul, [facility] [address] [id number] [place] [address] Jun, [facility] [place] [facility] [address] [id number] [place] [address] Jun, [facility] [address] [id number] [place] [address] 31 Jul, 2010 [facility] [place] [facility] [address] [id number] [place] [address] Jul, [facility] [place] [facility] [address] [id number] [place] [address] 22 Jul, 2010 [facility] [place] [facility] [address] [id number] [place] [address] 14 Jul, 2010 [facility] [place] [facility] [address] [id number] [place] [address] 14 Jul, 2010 [facility] [place] [facility] [address] [id number] [place] [address] 24 Jun, 2010 [facility] [place] [facility] [address] [id number] [place] [address] May, [facility] [place] [facility] [address] [id number] [place] [address] Mar, [facility] [place] [facility] [address] [id number] [place] [address] Oct, [facility] [id number] [address] Aug, [facility] [id number] [address] Jul, [facility] [id number] [address] Jul, [facility] [id number] [address] Jun, [facility] [id number] [address] Jun, [facility] [id number] [place] [address] May, [facility] [id number] [address] May, [facility] [address] [address] Mar, [facility] [id number] [address] Mar, [facility] [id number] [address] Oct, IMMUNIZATIONS No Known Immunizations SOCIAL HISTORY Never Assessed REASON FOR VISIT xanax refill PLAN OF CARE VITAL SIGNS MEDICATIONS Medication Instructions Dosage Frequency Start Date End Date Duration Status Xanax 1 mg Orally three times a day 1 tablet 8h 30 Active RESULTS No Results PROCEDURES No Known [...] disc replacement L1- L5 - Dr Muhammad ([place]) Surgical History appendectomy 1983 Surgical History hysterectomy 1993 Surgical History dilatation and curettage Surgical History heart cath- Dr Shaw [address] Meza bowel and intestines seperated 2015 Hospitalization History Hospitalization for surgery only
--- OUTSIDE RECORDS SUMMARY | 2018-04-23 11:34 | XMS REPORT ---
Author Author KEELY Weller Organization [facility] Address [address] [place] [address] Care Team Providers Care Aids Social Worker Name Role Phone KEELY Weller Unavailable PROBLEMS Type Condition ICD9-CM Code [id number] Code Onset Dates Condition Status SNOMED Code Problem Major depressive disorder, recurrent episode, moderate F33.1 Active 684736478 Problem PTSD (post-traumatic stress disorder) F43.10 Active 40520360 Problem Cannabis abuse F12.10 Active 42246740 Problem GERD with esophagitis K21.0 Active 142535253 Problem Spasm of muscle 728.85 Active 26883669 Problem Cocaine use disorder, moderate, in sustained remission F14.21 Active 14790663 Problem Diarrhea 787.91 Active 61757240 Problem Alcohol use disorder, mild, 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 Active 32301311 Problem Tobacco use Z72.0 Active 280571262 Problem Methamphetamine use disorder, severe, 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2 Active 856471484 Problem Insomnia 780.52 Active 463366878 Problem Generalized anxiety disorder F41.1 Active 11062010 ALLERGIES No Information ENCOUNTERS Encounter Location Date Diagnosis [facility] [address] [id number] [id number] Mar, [facility] [address], [place] [address] Feb, [facility] [id number] [address] Jan, Cocaine use disorder, moderate, in sustained remission F14.21 [facility] [address], [place] [address] Jan, Cocaine use disorder, moderate, in sustained [...] disorder, recurrent episode, moderate F33.1 [place] [id number] [place] [address]8866- 7057 Jan, Dysuria R30.0 and GERD with esophagitis K21.0 [place] [address], [place] [address] December, Major depressive disorder, recurrent episode, moderate F33.1 [place] [address], [place] [address] December, [facility] [address], [place] [address] December, Major depressive disorder, recurrent episode, moderate [...] Z72.0 [facility] [address], [place] [address] Nov, [facility] [address] [id number] [address] Nov, [place] [id number] [place] [address]353- 3795 Nov, Wellness examination Z00.00 ; Encounter for immunization Z23 ; Screening for osteoporosis Z13.820 ; Screening for breast cancer Z12.31 and Left breast lump N63.20 [facility] [address] [id number] Oct, Dental examination Z01.20 [place] [id number] [place] [address] 79126- 2869 Oct, [place] [id number] [place] [address] 21246- 2339 08 Oct, 2017 [place] [id number] [place] [address] 97612- 0513 16 Sep, 2017 [place] [id number] [place] [address] 14361- 8992 15 Sep, 2017 [facility] [id number] [place] [address] 08030- 5709 14 Sep, 2017 Left otitis media with effusion H65.92 ; Acute suppurative otitis media of right ear without spontaneous rupture of tympanic membrane, recurrence not specified H66.001 ; Dizziness R42 and Fatigue 780.79 [place] [address] [place] [address] 39736- 4608 Aug, Major depressive disorder, recurrent episode, moderate [...] sustained remission F10.11 and Tobacco use Z72.0 [facility] [address], [place] [address] Aug, Ingrown right big toenail L60.0 [place] [id number] [place] [address] 38795- 7446 Aug, [facility] [address] [place] [address] 59541- 5416 Aug, PTSD (post-traumatic stress disorder) F43.10 [place] [id number] [place] [address] 77729- 8747 Aug, Major depressive disorder, recurrent episode, moderate F33.1 ; Generalized anxiety disorder F41.1 and Cannabis abuse F12.10 [place] [id number] [place] [address] 76465- 2556 Jul, [place] [id number] [place] [address] 80578- 7476 Jul, [place] [id number] [place] [address] 35747- 4230 Jul, [place] [address] [place] [address] 97958- 7102 Jul, Major depressive disorder, recurrent episode, moderate F33.1 ; Generalized anxiety disorder F41.1 and Cannabis abuse F12.10 [place] [id number] [place] [address] 74847- 6510 Jul, [place] [id number] [place] [address] 47298- 7646 Jul, [place] [id number] [place] [address] 78165- 2547 Jul, Hyperlipidemia 272.4 [place] [id number] [place] [address] 02047- 0386 Jul, PTSD (post-traumatic stress disorder) F43.10 [place] [address] [place] [address] 76571- 4446 14 Jul, 2017 Tobacco use Z72.0 ; Alcohol use disorder, mild, 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 ; Opioid use disorder, moderate, in sustained remission F11.21 ; Methamphetamine use disorder, severe, 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 ; Cocaine use disorder, moderate, in sustained remission F14.21 ; PTSD ( post-traumatic stress disorder) F43.10 ; Major depressive disorder, recurrent episode, moderate F33.1 ; Generalized anxiety disorder F41.1 and Cannabis abuse F12.[address] [address] Jul, [address] [address]- 0058 Jul, Dysuria R30.0 and Mixed hyperlipidemia E78.[address] [address]- 6962 Jun, Major depressive disorder, recurrent episode, moderate F33.1 ; Generalized anxiety disorder F41.1 and Cannabis abuse F12.10 [place] [id number] [place] [address] 78584- 8656 Jun, [place] [id number] [place] [address] 01759- 3192 Jun, Generalized anxiety disorder F41.1 ; Major depressive disorder, recurrent episode, moderate F33.1 ; PTSD (post-traumatic stress disorder) F43.10 ; Opioid use disorder, moderate, in sustained remission F11.21 ; Cannabis abuse F12.10 ; Alcohol use disorder, mild, 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 ; Methamphetamine use disorder, severe, 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 ; Cocaine use disorder, moderate, in sustained remission F14.21 and Tobacco use Z72.0 [place] [id number] [place] [address] 17059- 5825 Jun, Major depressive disorder, recurrent episode, moderate F33.1 ; Generalized anxiety disorder F41.1 and Cannabis abuse F12.10 [place] [id number] [place] [address] 24847- 0202 Jun, [address] [address] 0[address] Jun, [facility] [id number] [place] [address] 00417- 2365 Jun, Major depressive disorder, recurrent episode, moderate F33.1 ; Generalized anxiety disorder F41.1 and Cannabis abuse F12.10 [facility] [id number] [id number] Mar, Dental examination Z01.20 [facility] [id number] [place] [id number] Feb, Dental examination Z01.20 [facility] [id number] [place] [address] 73814- 1097 Mar, [facility] [id number] [place] [address] 59252- 8308 Mar, [facility] [id number] [place] [address] 94731- 9595 Feb, Hyperlipidemia 272.4 and Prediabetes 790.29 [facility] [id number] [place] [address] 82269- 8154 Feb, Fatigue 780.79 and Hyperlipidemia 272.4 [facility] [id number] [place] [address] 46188- 5248 Feb, Lumbago 724.2 ; Hyperlipidemia 272.4 ; Insomnia 780.52 and Fatigue 780.79 [facility] [id number] [place] [address] 37915- 5184 Nov, [facility] [id number] [place] [address] 90143- 0539 Nov, [facility] [id number] [place] [address] 56248- 7912 Mar, [facility] [id number] [place] [address] 31052- 8001 Mar, [facility] [id number] [place] [address] 66555- 2698 Jan, [facility] [place] [facility] [address] [id number] [place] [address]- 4941 Jan, [facility] [place] [facility] [address] [id number] [place] [address] 2500 December, [facility] [place] [facility] [address] [id number] [place] [address]- 0109 December, [facility] [place] [facility] [address] [id number] [place] [address]- 9386 Nov, [facility] [place] [facility] [address] [id number] [place] [address]- 7156 Nov, [facility] [place] [facility] [address] [id number] [place] [address]- 8728 Nov, [facility] [place] [facility] [address] [id number] [place] [address]- 0395 Nov, [facility] [place] [facility] [address] [id number] [place] [address]- 9335 Nov, [facility] [place] [facility] [address] [id number] [place] [address]- 5545 Nov, [facility] [place] [facility] [address] [id number] [place] [address]- 6415 Oct, [facility] [place] [facility] [address] [id number] [place] [address]- 9274 31 Oct, 2013 [facility] [place] [facility] [address] [id number] [place] [address]- 4287 20 Oct, 2013 [facility] [place] [facility] [address] [id number] [place] [address]- 8460 20 Oct, 2013 [facility] [place] [facility] [address] [id number] [place] [address]- 1689 19 Oct, 2013 [facility] [place] [facility] [address] [id number] [place] 2194 Oct, [facility] [place] [facility] [address] [id number], [place] [address]- 9295 Oct, [facility] [place] [facility] [address] [facility] [id number] [place] [address]- 9916 12 Oct, 2013 [facility] [place] [facility] [address] [facility] [id number] [place] [address]- 5556 Oct, [facility] [place] [facility] [address] [facility] [id number] [place] [address]- 7926 Oct, [facility] [place] [facility] [address] [facility] [id number] [place] [address]- 7700 Oct, [facility] [place] [facility] [address] [facility] [id number] [place] [address]- 3252 Oct, [facility] [place] [facility] [address] [facility] [id number] [place] [address]- 9903 Oct, [facility] [place] [facility] [id number] [place] [address]- 2156 24 Sep, 2013 [facility] [place] [facility] [address] [facility] [id number] [place] [address]- 9354 24 Sep, 2013 [facility] [place] [facility] [id number] [place] [address]- 8927 20 Sep, 2013 [facility] [place] [facility] [id number] [place] [address]- 3755 20 Sep, 2013 [facility] [place] [facility] [id number] [place] [address]- 4442 Sep, [facility] [place] [facility] [address] [facility] [id number] [place] [address]- 9909 20 Sep, 2013 [facility] [place] [facility] [address] [facility] [id number] [place] [address]- 1572 18 Sep, 2013 [facility] [place] [facility] [address] [facility] [id number] [place] [address]- 8832 18 Sep, 2013 [facility] [place] [facility] [id number] [place] [address]- 3292 14 Sep, 2013 [facility] [place] [facility] [address] [id number] [place] [address]- 6052 14 Sep, 2013 [facility] [place] [facility] [address] [id number] [place] [address]- 6071 14 Sep, 2013 [facility] [place] [facility] [address] [id number] [place] [address]- 8397 14 Sep, 2013 [facility] [place] [facility] [address] [id number] [place] [address]- 1076 14 Sep, 2013 [facility] [place] [facility] [address] [id number] [place] [address]- 8816 14 Sep, 2013 [facility] [place] [facility] [address] [id number] [place] [address]- 9130 13 Sep, 2013 [facility] [place] [facility] [address] [id number] [place] [address]- 1382 13 Sep, 2013 [facility] [place] [facility] [address] [id number] [place] [address]- 9039 12 Sep, 2013 [facility] [place] [facility] [address] [id number] [place] [address]- 9423 Sep, [facility] [place] [facility] [address] [id number] [place] [address]- 6793 03 Sep, 2013 [facility] [place] [facility] [address] [id number] [place] [address]- 2952 Sep, [facility] [place] [facility] [address] [id number] [place] [address]- 1277 Aug, [facility] [place] [facility] [address] [id number] [place] [address]- 7214 Aug, [facility] [place] [facility] [address] [id number] [place] [address]- 7558 Aug, [facility] [place] [facility] [address] [facility] [id number] [place] [address]- 6476 Aug, [facility] [place] [facility] [address] [id number] [place] [address]- 7290 Aug, [facility] [place] [facility] [address] [id number] [place] [address]- 1002 Jul, [facility] [place] [facility] [address] [id number] [place] [address]- 1468 Jul, [facility] [place] [facility] [address] [id number] [place] [address]- 9837 Jul, [facility] [place] [facility] [address] [id number] [place] [address]- 7798 Jul, [facility] [place] [facility] [address] [id number] [place] [address]- 7094 Jul, [facility] [place] [facility] [address] [id number] [place] [address]- 4433 Jul, [facility] [place] [facility] [address] [id number] [place] [address]- 2660 Jul, [facility] [place] [facility] [address] [id number] [place] [address]- 0814 Jul, [facility] [place] [facility] [address] [id number] [place] [address]- 2098 Jul, [facility] [place] [facility] [address] [id number] [place] [address]- 1317 Jun, [facility] [place] [facility] [address] [id number] [place] [address]- 6194 Jun, [facility] [place] [facility] [address] [id number] [place] [address]- 7598 Jun, [facility] [place] [facility] [address] [id number] [place] [address]- 0878 Jun, [facility] [place] [facility] [address] [id number] [place] [address]- 6296 Jun, [facility] [place] [facility] [address] [id number] [place] [address]- 0785 Jun, [facility] [place] [facility] [address] [id number] [place] [address]- 1957 Jun, [facility] [place] [facility] [address] [id number] [place] [address]- 3518 Jun, [facility] [place] [facility] [address] [id number] [place] 4625 Jun, [facility] [place] [facility] [address] [id number] [place] [address]- 9644 Jun, [facility] [place] [facility] [address] [id number] [place] [address]- 5995 May, [facility] [place] [facility] [address] [id number] [place] [address]- 2895 May, [facility] [place] [facility] [address] [id number] [place] [address]- 5073 May, [facility] [place] [facility] [address] [id number], [place] [address]- 7090 May, [facility] [place] [facility] [address] [id number], [place] [address]- 5347 May, [facility] [place] [facility] [address] [id number], [place] [address]- 7476 May, [facility] [place] [facility] [address] [id number], [place] [address]- 9588 May, [facility] [place] [facility] [address] [id number], [place] [address]- 5461 May, [facility] [place] [facility] [address] [id number], [place] [address]- 6035 May, [facility] [place] [facility] [address] [id number], [place] [address]- 6038 26 Apr, 2013 [facility] [place] [facility] [address] [id number], [place] [address]- 5996 16 Apr, 2013 [facility] [place] [facility] [address] [id number] [place] [address]- 4355 Apr, [facility] [address] [id number] [place] [address]- 3458 Apr, [facility] [place] [facility] [address] [id number] [place] [address]- 9599 Mar, [facility] [place] [facility] [address] [id number] [place] [address]- 0345 Mar, [facility] [place] [facility] [address] [id number] [place] [address]- 3966 Mar, [facility] [place] [facility] [address] [id number] [place] [address]- 3360 Mar, [facility] [place] [facility] [address] [id number] [place] [address]- 6374 Mar, [facility] [address] [id number] [place] [address]- 9652 Mar, [facility] [place] [facility] [address] [id number] [place] [address]- 9356 Mar, [facility] [place] [facility] [address] [id number] [place] [address]- 2097 Feb, [facility] [place] [facility] [address] [id number] [place] [address]- 2768 Feb, [facility] [place] [facility] [address] [id number] [place] [address]- 5761 Feb, [facility] [place] [facility] [address] [id number] [place] [address]- 0830 Feb, [facility] [place] [facility] [address] [id number] [place] [address]- 6309 Feb, [facility] [place] [facility] [address] [id number] [place] [address]- 9111 Feb, [facility] [place] [facility] [address] [id number] [place] [address]- 0729 Feb, [facility] [place] [facility] [address] [id number] [place] [address]- 8969 Feb, [facility] [address] [id number] [place] [address]- 6115 Feb, [facility] [address] [id number] [place] [address]- 4523 Feb, [facility] [address] [id number] [place] [address]- 0829 Feb, [facility] [address] [id number] [place] [address]- 5001 Jan, [facility] [address] [id number] [place] [address]- 7682 Jan, [facility] [address] [id number] [place] [address]- 4311 December, [facility] [address] [id number] [place] [address]- 8175 December, [facility] [address] [id number] [place] [address]- 7148 Nov, [facility] [address] [id number] [place] [address]- 3577 Nov, [facility] [address] [id number] [place] [address]- 3804 Oct, [facility] [address] [id number] [place] [address]- 5064 Oct, [facility] [address] [id number] [place] [address]- 4346 Oct, [facility] [place] [facility] [address] [id number] [place] [address]- 5327 Oct, [facility] [address] [id number] [place] [address]- 5358 Sep, [facility] [address] [id number] [place] [address]- 2878 Sep, [facility] [address] [id number] [place] [address]- 6016 Sep, [facility] [place] [facility] [address] [id number] [place] [address]- 0506 Sep, [facility] [address] [id number] [place] [address]- 1473 Aug, [facility] [place] [facility] [address] [id number] [place] [address]- 6402 Aug, [facility] [address] [id number] [place] [address]- 2789 Jul, [facility] [address] [id number] [place] [address]- 2629 Jul, [facility] [address] [facility] [id number] [place] [address]- 7861 Jul, [facility] [address] [id number] [place] [address] Jul, [facility] [address] [id number] [place] [address] Jul, [facility] [address] [facility] [id number] [place] [address] Jul, [facility] [address] [id number] [place] [address] Jun, [facility] [place] [facility] [address] [id number], [place] [address] Jun, [facility] [place] [facility] [address] [id number] [place] [address] Jun, [facility] [place] [facility] [address] [id number] [place] [address] Jun, [facility] [place] [facility] [address] [facility] [id number] [place] [address] Jun, [facility] [place] [facility] [address] [id number] [place] [address] May, [facility] [place] [facility] [address] [id number] [place] [address] 1986 May, [facility] [place] [facility] [address] [id number] [place] [address] May, [facility] [place] [facility] [address] [id number] [place] [address] May, [facility] [place] [facility] [address] [id number] [place] [address] May, [facility] [place] [facility] [address] [id number] [place] [address] May, [facility] [place] [facility] [address] [id number] [place] [address] May, [facility] [place] [facility] [address] [id number] [place] [address] May, [facility] [place] [facility] [address] [id number] [place] [address] Mar, [facility] [place] [facility] [address] [id number] [place] [address] Mar, [facility] [place] [facility] [address] [id number] [place] [address] Mar, [facility] [place] [facility] [address] [id number] [place] [address] Feb, [facility] [place] [facility] [address] [id number] [place] [address] Feb, [facility] [place] [facility] [address] [id number] [place] [address] Feb, [facility] [place] [facility] [address] [id number] [place] [address] Feb, [facility] [place] [facility] [address] [id number] [place] [address] Jan, [facility] [address] [id number] [place] [address] Jan, [facility] [place] [facility] [address] [id number] [place] [address] Jan, [facility] [place] [facility] [address] [id number] [place] [address] December, [facility] [place] [facility] [address] [id number] [place] [address] Nov, [facility] [place] [facility] [address] [id number] [place] [address] Oct, [facility] [place] [facility] [address] [id number] [place] [address] Oct, [facility] [place] [facility] [address] [id number] [place] [address] Oct, [facility] [place] [facility] [address] [id number] [place] [address] Oct, [facility] [place] [facility] [address] [id number] [place] [address] Aug, [facility] [place] [facility] [address] [id number] [place] [address] Aug, [facility] [place] [facility] [address] [id number], [place] [address] Aug, [facility] [place] [facility] [address] [id number], [place] [address] Aug, [facility] [place] [facility] [address] [id number] [place] [address] Aug, [facility] [place] [facility] [address] [id number], [place] [address] Aug, [facility] [place] [facility] [address] [id number] [place] [address] Aug, [facility] [place] [facility] [address] [id number] [place] [address] 03 Aug, 2011 [facility] [address] [id number] [place] [address] 08 Jul, 2011 [facility] [place] [facility] [address] [id number] [place] [address] Jun, [facility] [address] [id number] [place] [address] 29 Jun, 2011 [facility] [place] [facility] [address] [id number] [place] [address] 31 Jul, 2010 [facility] [address] [id number] [place] [address] Jul, [facility] [place] [facility] [address] [id number] [place] [address] Jul, [facility] [address] [id number] [place] [address] 14 Jul, 2010 [facility] [place] [facility] [address] [id number] [place] [address] 14 Jul, 2010 [facility] [place] [facility] [address] [id number] [place] [address] 24 Jun, 2010 [facility] [address] [id number] [place] [address] May, [facility] [place] [facility] [address] [id number] [place] [address] Mar, [facility] [place] [facility] [address] [id number] [place] [address] Oct, [facility] [place] [facility] [address] [id number] [place] [address] Aug, [facility] [place] [facility] [address] [id number] [place] [address] 15 Jul, 2009 [facility] [place] [facility] [address] [id number] [place] [address] Jul, [facility] [address] [id number] [address] Jun, [facility] [address] [id number] [address] Jun, [facility] [id number] [place] [address] May, [facility] [id number] [address] May, [facility] [id number] [address] Mar, [facility] [id number] [address] Mar, [facility] [id number] [address] Oct, IMMUNIZATIONS No Known Immunizations SOCIAL HISTORY Never Assessed REASON FOR VISIT CT Chest (low density) PLAN OF CARE VITAL SIGNS MEDICATIONS Unknown Medications RESULTS No Results PROCEDURES No Known procedures [...] disc replacement L1- L5 - Dr Muhammad ([place]) Surgical History appendectomy 1983 Surgical History hysterectomy 1993 Surgical History dilatation and curettage Surgical History heart cath- Dr Shaw [address] Meza bowel and intestines 2015 Hospitalization History Hospitalization for surgery only
--- OUTSIDE RECORDS SUMMARY | 2018-04-23 11:34 | XMS REPORT ---
Author Author KEELY Weller Organization [facility] Address [address] [place] [address] Care Team Providers Care Database Administration Project Manager Name Role Phone KEELY Weller Unavailable PROBLEMS Type Condition ICD9-CM Code KST42-JS Code Onset Dates Condition Status SNOMED Code Problem Major depressive disorder, recurrent episode, moderate F33.1 Active 107388907 Problem PTSD (post-traumatic stress disorder) F43.10 Active 22898323 Problem Cannabis abuse F12.10 Active 03358225 Problem GERD with esophagitis K21.0 Active 707104781 Problem Spasm of muscle 728.85 Active 55771812 Problem Cocaine use disorder, moderate, in sustained remission F14.21 Active 62260986 Problem Diarrhea 787.91 Active 68635480 Problem Alcohol use disorder, mild, 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 Active 48271214 Problem Tobacco use Z72.0 Active 000289827 Problem Methamphetamine use disorder, severe, 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2 Active 094323689 Problem Insomnia 780.52 Active 378597729 Problem Generalized anxiety disorder F41.1 Active 52647825 ALLERGIES Substance Reaction Event Type Date Status Pravastatin Sodium itching Drug Allergy Nov, Active Duragesic-100 vomiting- Patches only Drug Allergy Nov, Active ENCOUNTERS Encounter Location Date Diagnosis [facility] [address] [facility] [id number] [id number] Mar, [facility] [id number] [place] [address]04- [address]709 Feb, Cocaine use disorder, moderate, in sustained [...] Major depressive disorder, recurrent episode, moderate F33.1 [place] [address] [place] [address] 56690- 5907 Jan, Cocaine use disorder, moderate, in sustained remission F14.21 [place] [id number] [place] [address] 69039- 6455 Jan, Cocaine use disorder, moderate, in sustained [...] Major depressive disorder, recurrent episode, moderate F33.1 [place] [address] [place] [address] 86944- 0623 Jan, Dysuria R30.0 and GERD with esophagitis K21.0 [place] [address] [place] [address] 90296- 2422 December, Major depressive disorder, recurrent episode, moderate F33.1 [place] [address] [place] [address]23- 2003 December, [place] [address] [place] [address] 52341- 5869 02 May, 2018 Major depressive disorder, recurrent episode, moderate [...] sustained remission F10.11 and Tobacco use Z72.0 [facility] [id number] [place] [address] 24267- 1469 Nov, [facility] [address] [address] Nov, [place] [address] [address] Nov, Wellness examination Z00.00 ; Encounter for immunization Z23 ; Screening for osteoporosis Z13.820 ; Screening for breast cancer Z12.31 and Left breast lump N63.20 [facility] [id number] [place] [id number] Oct, Dental examination Z01.20 [place] [address] [address] Oct, [place] [id number] [place] [address]67- 3633 Oct, [place] [id number] [place] [address] 86736- 4698 16 Sep, 2017 [place] [id number] [place] [address] 59066- 4739 15 Sep, 2017 [facility] [address] [address]32 14 Sep, 2017 Left otitis media with effusion H65.92 ; Acute suppurative otitis media of right ear without spontaneous rupture of tympanic membrane, recurrence not specified H66.001 ; Dizziness R42 and Fatigue 780.79 [facility] [address] [address] Aug, Major depressive disorder, recurrent episode, moderate [...] sustained remission F10.11 and Tobacco use Z72.0 [facility] [id number] [place] [address]66 [address]191 Aug, Ingrown right big toenail L60.0 [facility] [id number] [place] [address] 66807- 5530 Aug, [facility] [id number] [place] [address] 01232- 9286 Aug, PTSD (post-traumatic stress disorder) F43.10 [facility] [id number] [place] [address] 60727- 2048 Aug, Major depressive disorder, recurrent episode, moderate F33.1 ; Generalized anxiety disorder F41.1 and Cannabis abuse F12.10 [facility] [id number] [place] [address] 34075- 1731 Jul, [facility] [id number] [place] [address] 20389- 7213 Jul, [place] [id number] [place] [address] 84756- 8916 Jul, [facility] [id number] [place] [address] 65751- 0912 Jul, Major depressive disorder, recurrent episode, moderate F33.1 ; Generalized anxiety disorder F41.1 and Cannabis abuse F12.10 [facility] [address] [place] [address] 14899- 6750 Jul, [facility] [id number] [place] [address] 75927- 6384 Jul, [place] [address] [address] Jul, Hyperlipidemia 272.4 [place] [address] [place] [address] Jul, PTSD (post-traumatic stress disorder) F43.10 [place] [id number] [place] [address] 99622- 4320 Jul, Tobacco use Z72.0 ; Alcohol use [...] anxiety disorder F41.1 and Cannabis abuse F12.10 [place] [id number] [place] [address] 62101- 5408 Jul, [place] [id number] [place] [address] 56571- 3652 Jul, Dysuria R30.0 and Mixed hyperlipidemia E78.2 [address] [place] [address] 86541- 8734 Jun, Major depressive disorder, recurrent episode, moderate F33.1 ; Generalized anxiety disorder F41.1 and Cannabis abuse F12.10 [place] [address] [place] [address] 79270- 7572 Jun, [address] [place] [address] 66516- 6603 Jun, Generalized anxiety disorder F41.1 ; Major depressive disorder, recurrent episode, moderate F33.1 ; PTSD (post-traumatic stress disorder) F43.10 ; Opioid use disorder, moderate, in sustained remission F11.21 ; Cannabis abuse F12.10 ; Alcohol use disorder, mild, 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 ; Methamphetamine use disorder, severe, 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1 ; Generalized anxiety disorder F41.1 and Cannabis abuse F12.10 [facility] [address] [id number] Mar, Dental examination Z01.20 [facility] [address] [id number] Feb, Dental examination Z01.20 [place] [address] 21903- 4160 Mar, [place] [id number] [place] [address] 90579- 3111 Mar, [place] [id number] [place] [address] 57950- 1644 Feb, Hyperlipidemia 272.4 and Prediabetes 790.29 [place] [id number] [place] [address] 45867- 0266 Feb, Fatigue 780.79 and Hyperlipidemia 272.[address] [address]- 3194 08 Feb, 2015 Lumbago 724.2 ; Hyperlipidemia 272.4 ; Insomnia 780.52 and Fatigue 780.[address] 18207- 6295 Nov, [facility] [place] [facility] [address] [id number] [place] [address]- 1127 Nov, [facility] [place] [facility] [address] [id number] [place] [address]- 6328 Mar, [facility] [place] [facility] [address] [id number] [place] [address] Mar, [facility] [place] [facility] [address] [id number] [place] [address]- 8895 Jan, [facility] [place] [facility] [address] [id number] [place] [address]- 7820 Jan, [facility] [place] [facility] [address] [id number] [place] [address]- 2636 December, [facility] [place] [facility] [address] [id number] [place] [address]- 4604 December, [facility] [place] [facility] [address] [id number] [place] [address]- 7566 Nov, [facility] [place] [facility] [address] [id number] [place] [address]- 0378 Nov, [facility] [place] [facility] [address] [id number] [place] [address]- 3584 Nov, [facility] [place] [facility] [address] [id number] [place] [address]- 8267 Nov, [facility] [place] [facility] [address] [id number] [place] [address]- 1806 Nov, [facility] [place] [facility] [address] [id number] [place] [address]- 1312 Nov, [facility] [place] [facility] [address] [id number] [place] [address]- 0541 Oct, [facility] [place] [facility] [address] [id number] [place] 2002 Oct, [facility] [place] [facility] [address] [id number] [place] [address]- 0127 20 Oct, 2013 [facility] [place] [facility] [address] [id number] [place] [address]- 5865 Oct, [facility] [place] [facility] [address] [id number] [place] [address]- 4026 Oct, [facility] [place] [facility] [address] [id number] [place] [address]- 4974 Oct, [facility] [place] [facility] [address] [id number] [place] [address]- 2950 Oct, [facility] [place] [facility] [address] [id number] [place] [address]- 9172 Oct, [facility] [place] [facility] [address] [id number] [place] [address]- 1923 Oct, [facility] [place] [facility] [address] [id number] [place] [address]- 4319 Oct, [facility] [place] [facility] [address] [id number] [place] [address]- 0638 Oct, [facility] [place] [facility] [address] [id number] [place] [address]- 7514 Oct, [facility] [place] [facility] [address] [id number] [place] [address]- 2908 Oct, [facility] [place] [facility] [address] [id number] [place] [address]- 0079 Sep, [facility] [place] [facility] [address] [id number] [place] [address]- 1615 Sep, [facility] [place] [facility] [address] [id number] [place] [address]- 0038 Sep, [facility] [place] [facility] [address] [id number] [place] [address]- 7326 Sep, [facility] [place] [facility] [address] [id number] [place] 3088 20 Sep, 2013 [facility] [place] [facility] [address] [id number] [place] [address]- 6208 20 Sep, 2013 [facility] [place] [facility] [address] [id number] [place] [address]- 4906 18 Sep, 2013 [facility] [place] [facility] [address] [facility] [id number] [place] [address]- 8796 18 Sep, 2013 [facility] [place] [facility] [address] [facility] [id number] [place] [address]- 8535 14 Sep, 2013 [facility] [place] [facility] [address] [id number] [place] [address]- 7893 14 Sep, 2013 [facility] [place] [facility] [address] [facility] [id number] [place] [address]- 4416 14 Sep, 2013 [facility] [place] [facility] [address] [facility] [id number] [place] [address]- 3349 14 Sep, 2013 [facility] [place] [facility] [address] [facility] [id number] [place] [address]- 0060 14 Sep, 2013 [facility] [place] [facility] [address] [facility] [id number] [place] [address]- 0570 14 Sep, 2013 [facility] [place] [facility] [address] [facility] [id number] [place] [address]- 4178 13 Sep, 2013 [facility] [place] [facility] [address] [facility] [id number] [place] [address]- 0078 13 Sep, 2013 [facility] [place] [facility] [address] [facility] [id number] [place] [address]- 1743 12 Sep, 2013 [facility] [place] [facility] [address] [facility] [id number] [place] [address]- 3470 12 Sep, 2013 [facility] [place] [facility] [address] [facility] [id number] [place] [address]- 3089 03 Sep, 2013 [facility] [place] [facility] [address] [facility] [id number] [place] [address]- 4462 Sep, [facility] [place] [facility] [address] [id number] [place] [address]- 8898 Aug, [facility] [address] [id number] [place] [address]- 2879 Aug, [facility] [place] [facility] [address] [id number] [place] [address]- 9603 Aug, [facility] [place] [facility] [address] [id number] [place] [address]- 5183 Aug, [facility] [address] [id number] [place] [address]- 7849 Aug, [facility] [place] [facility] [address] [id number] [place] [address]- 0125 Jul, [facility] [address] [id number] [place] [address]- 5071 Jul, [facility] [address] [id number] [place] [address]- 8748 Jul, [facility] [place] [facility] [address] [id number] [place] [address]- 9328 Jul, [facility] [place] [facility] [address] [id number] [place] 2085 Jul, [facility] [place] [facility] [address] [id number] [place] [address]- 7633 Jul, [facility] [place] [facility] [address] [id number], [place] [address]- 6102 Jul, [facility] [place] [facility] [address] [id number] [place] [address]- 8982 Jul, [facility] [place] [facility] [address] [id number] [place] [address]- 4608 Jul, [facility] [place] [facility] [address] [id number] [place] [address]- 1898 Jun, [facility] [place] [facility] [address] [id number], [place] [address]- 9797 Jun, [facility] [place] [facility] [address] [id number] [place] [address]- 1440 Jun, [facility] [place] [facility] [address] [id number], [place] [address]- 7778 Jun, [facility] [place] [facility] [address] [id number] [place] [address]- 5507 Jun, [facility] [place] [facility] [address] [id number], [place] [address]- 2739 Jun, [facility] [place] [facility] [address] [id number] [place] [address]- 3266 Jun, [facility] [place] [facility] [address] [id number] [place] [address]- 7118 Jun, [facility] [place] [facility] [address] [id number], [place] [address]- 3823 Jun, [facility] [place] [facility] [address] [id number], [place] [address]- 3895 Jun, [facility] [place] [facility] [address] [id number], [place] [address]- 2714 May, [facility] [place] [facility] [address] [id number], [place] [address]- 6371 28 May, 2013 [facility] [place] [facility] [address] [id number][place] [address]- 5093 May, [facility] [place] [facility] [address] [id number], [place] [address]- 1020 22 May, 2013 [facility] [place] [facility] [address] [id number], [place] [address]- 9250 16 May, 2013 [facility] [place] [facility] [address] [id number], [place] [address]- 8085 11 May, 2013 [facility] [place] [facility] [address] [id number], [place] [address]- 6760 11 May, 2013 [facility] [place] [facility] [address] [id number] [place] [address]- 2692 May, [facility] [place] [facility] [address] [id number] [place] [address]- 3534 May, [facility] [place] [facility] [address] [id number] [place] [address]- 0003 Apr, [facility] [place] [facility] [address] [id number] [place] [address]- 4146 16 Apr, 2013 [facility] [place] [facility] [address] [id number] [place] [address]- 0936 Apr, [facility] [place] [facility] [address] [id number] [place] [address]- 2390 Apr, [facility] [place] [facility] [address] [id number] [place] [address]- 9027 Mar, [facility] [place] [facility] [address] [id number] [place] [address]- 7814 Mar, [facility] [place] [facility] [address] [id number] [place] [address]- 8340 Mar, [facility] [place] [facility] [address] [id number] [place] [address]- 5315 Mar, [facility] [place] [facility] [address] [id number] [place] [address]- 1426 Mar, [facility] [place] [facility] [address] [id number] [place] [address]- 8335 Mar, [facility] [place] [facility] [address] [id number] [place] [address]- 9466 Mar, [facility] [place] [facility] [address] [id number] [place] [address]- 9594 Feb, [facility] [place] [facility] [address] [id number] [place] [address]- 3218 Feb, [facility] [place] [facility] [address] [id number] [place] [address]- 8146 Feb, [facility] [address] [id number] [place] [address]- 7493 Feb, [facility] [place] [facility] [address] [id number] [place] [address]- 5391 Feb, [facility] [place] [facility] [address] [id number] [place] [address]- 1307 Feb, [facility] [place] [facility] [address] [id number] [place] [address]- 4355 Feb, [facility] [address] [id number] [place] [address]- 0943 Feb, [facility] [address] [id number] [place] [address]- 2037 Feb, [facility] [address] [id number] [place] [address]- 1546 Feb, [facility] [place] [facility] [address] [id number] [place] [address]- 5762 Feb, [facility] [place] [facility] [address] [id number] [place] [address]- 0397 Jan, [facility] [place] [facility] [address] [id number] [place] [address]- 4773 Jan, [facility] [place] [facility] [address] [id number] [place] [address]- 2298 December, [facility] [place] [facility] [address] [id number] [place] [address]- 2984 December, [facility] [place] [facility] [address] [id number] [place] [address]- 8017 Nov, [facility] [place] [facility] [address] [id number] [place] [address]- 6876 Nov, [facility] [place] [facility] [address] [id number] [place] [address]- 9342 Oct, [facility] [place] [facility] [address] [id number] [place] [address]- 7409 Oct, [facility] [address] [id number] [place] [address]- 0946 Oct, [facility] [address] [id number] [place] [address]- 4206 Oct, [facility] [address] [id number] [place] [address]- 5906 Sep, [facility] [place] [facility] [address] [id number] [place] [address]- 2546 Sep, [facility] [address] [id number] [place] [address]- 9160 Sep, [facility] [address] [id number] [place] [address]- 9186 Sep, [facility] [address] [id number] [place] [address]- 8643 Aug, [facility] [address] [id number] [place] [address]- 3947 Aug, [facility] [address] [id number] [place] [address]- 9192 Jul, [facility] [address] [id number] [place] [address]- 0915 Jul, [facility] [place] [facility] [address] [id number] [place] [address] 2546 Jul, [facility] [place] [facility] [address] [id number] [place] [address]- 2543 Jul, [facility] [place] [facility] [address] [id number] [place] [address]- 0845 Jul, [facility] [place] [facility] [address] [id number] [place] [address] 2546 Jul, [facility] [place] [facility] [address] [id number] [place] [address]- 0740 Jun, [facility] [place] [facility] [address] [id number] [place] [address]- 2492 Jun, [facility] [place] [facility] [address] [id number] [place] 1530 Jun, [facility] [place] [facility] [address] [id number] [place] [address]- 1874 Jun, [facility] [place] [facility] [address] [id number] [place] [address]- 8793 Jun, [facility] [place] [facility] [address] [id number] [place] [address] May, [facility] [place] [facility] [address] [id number] [place] [address] May, [facility] [place] [facility] [address] [id number] [place] [address] May, [facility] [place] [facility] [address] [id number] [place] [address] May, [facility] [place] [facility] [address] [id number] [place] [address] May, [facility] [place] [facility] [address] [id number] [place] [address] May, [facility] [place] [facility] [address] [id number] [place] [address] May, [facility] [place] [facility] [address] [id number] [address] May, [facility] [place] [facility] [address] [id number] [place] [address] Mar, [facility] [place] [facility] [address] [id number] [place] [address] Mar, [facility] [place] [facility] [address] [id number], [place] [address] Mar, [facility] [place] [facility] [address] [id number], [place] [address] Feb, [facility] [place] [facility] [address] [id number] [place] [address] Feb, [facility] [place] [facility] [address] [id number] [place] [address] Feb, [facility] [place] [facility] [address] [id number] [place] [address] Feb, [facility] [place] [facility] [address] [id number] [place] [address] Jan, [facility] [place] [facility] [address] [id number] [place] [address] Jan, [facility] [place] [facility] [address] [id number] [place] [address] Jan, [facility] [place] [facility] [address] [id number] [place] [address] December, [facility] [place] [facility] [address] [id number] [place] [address] Nov, [facility] [place] [facility] [address] [id number] [place] [address] Oct, [facility] [place] [facility] [address] [id number] [place] [address] Oct, [facility] [place] [facility] [address] [id number] [place] [address] Oct, [facility] [place] [facility] [address] [id number] [place] [address] Oct, [facility] [place] [facility] [address] [id number] [place] [address] Aug, [facility] [place] [facility] [address] [id number] [place] [address] Aug, [facility] [place] [facility] [address] [id number] [place] [address] Aug, [facility] [place] [facility] [address] [id number] [place] [address] Aug, [facility] [address] [id number] [place] [address] Aug, [facility] [place] [facility] [address] [id number] [place] [address] Aug, [facility] [address] [id number] [place] [address] Aug, [facility] [address] [id number] [place] [address] Aug, [facility] [address] [id number] [place] [address] Jul, [facility] [address] [id number] [place] [address] Jun, [facility] [address] [id number] [place] [address] Jun, [facility] [address] [id number] [place] [address] 31 Jul, 2010 [facility] [address] [id number] [place] [address] Jul, [facility] [address] [id number] [place] [address] 22 Jul, 2010 [facility] [place] [facility] [address] [id number] [place] [address] 14 Jul, 2010 [facility] [address] [id number] [place] [address] 14 Jul, [address] [facility] [place] [facility] [address] [id number] [place] [address] 24 Jun, 2010 [facility] [place] [facility] [address] [id number] [place] [address] May, [facility] [place] [facility] [address] [id number] [place] [address] Mar, [facility] [id number] [address] Oct, [facility] [id number] [address] Aug, [facility] [id number] [address] Jul, [facility] [id number] [address] Jul, [facility] [id number] [address] Jun, [facility] [id number] [place] [address] Jun, [facility] [id number] [address] May, [facility] [id number] [address] May, [facility] [id number] [address] Mar, [facility] [id number] [address] Mar, [facility] [id number], [place] [address] Oct, IMMUNIZATIONS Vaccine Route Administration Date Status TDAP (BOOSTRIX) IM Intramuscular November 08, 2017 Administered SOCIAL HISTORY Never Assessed REASON FOR VISIT Breast exam and [facility] [place] PLAN OF CARE Activity Details Follow Up annual wellness exam Reason: VITAL SIGNS Height 68 in 2017-11-08 Weight 199.7 lbs 2017-11-08 Temperature 98.2 degrees Fahrenheit 2017-11-08 Heart Rate 68 bpm 2017-11-08 Respiratory Rate 18 2017-11-08 BMI 30.36 kg/m2 2017-11-08 Blood pressure systolic 108 mmHg 2017-11-08 Blood pressure diastolic 78 mmHg 2017-11-08 MEDICATIONS Medication Instructions Dosage Frequency Start Date End Date Duration Status Xanax 1 mg Orally three times a day 1 tablet 8h 30 Active Zetia 10 mg Orally Once a day 1 tablet 24h Jul, 30 day(s) Active Fish Oil 1000 MG Orally 2 times a day 2capsule 12h Active cyclobenzaprine 10 mg 1 tablet every 6 hours PRN 8h Oct, Not-Taking Travel Sickness 25 MG Orally Once a day 1 tablet as needed 24h Not -Taking Trazodone HCl 100 MG Orally Once a day 1 tablet at bedtime 24h Feb, 30 days Not-Taking Prozac 10 MG Orally daily 1 capsule 24h Jun, 30 days Not- Taking Fenofibrate 48 MG Orally Once a day 1 tablet 24h Jul, 30 day(s ) Active Ezetimibe 10 MG Orally Once a day 1 tablet 24h Not-Taking Naproxen 500 MG Orally 2 times a day 1 tablet as needed 12h Active RESULTS Name Result Date Reference Range Mammogram, Bilateral Screening DEXA Hip and Spine 2017-11-23 PROCEDURES Procedure Date Ordered Result Body Site TDAP (BOOSTRIX) November 08, 2017 SINGLE IMMUNIZATION ADMIN November 08, 2017 INSTRUCTIONS MEDICATIONS ADMINISTERED No Known Medications MEDICAL [...] disc replacement L1- L5 - Dr Muhammad ([place]) Surgical History appendectomy 1983 Surgical History hysterectomy 1993 Surgical History dilatation and curettage Surgical History heart cath- Dr Shaw [address] Meza bowel and intestines 2015 Hospitalization History Hospitalization for surgery only
--- OUTSIDE RECORDS SUMMARY | 2018-04-23 11:35 | XMS REPORT ---
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 Name Role Phone JOSEVASQUEZ ZUNIGA Unavailable PROBLEMS Type Condition ICD9-CM Code QHM07-SJ Code Onset Dates Condition Status SNOMED Code Problem Major depressive disorder, recurrent episode, moderate F33.1 Active 090359722 Problem PTSD (post-traumatic stress disorder) F43.10 Active 77757368 Problem Cannabis abuse F12.10 Active 48880302 Problem GERD with esophagitis K21.0 Active 524385946 Problem Spasm of muscle 728.85 Active 76943669 Problem Cocaine use disorder, moderate, in sustained remission F14.21 Active 83775503 Problem Diarrhea 787.91 Active 92002602 Problem Alcohol use disorder, mild, 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 Active 30209704 Problem Tobacco use Z72.0 Active 061641839 Problem Methamphetamine use disorder, severe, 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2 Active 368417876 Problem Insomnia 780.52 Active 115650235 Problem Generalized anxiety disorder F41.1 Active [id number] ALLERGIES No Information ENCOUNTERS Encounter Location Date Diagnosis [facility] [address] [facility] [id number] [id number] Mar, [facility] [address] [address] Feb, [facility] [address] [address] Jan, Cocaine use disorder, moderate, in sustained remission F14.21 [facility] [address] [id number] [address] Jan, Cocaine use disorder, moderate, in sustained [...] Major depressive disorder, recurrent episode, moderate F33.1 [facility] [address], [place] [address] Jan, Dysuria R30.0 and GERD with esophagitis K21.0 [facility] [address], [place] [address] December, Major depressive disorder, recurrent episode, moderate F33.1 [facility] [address], [place] [address] December, [facility] [address] [id number] [address] December, Major depressive disorder, recurrent episode, moderate [...] sustained remission F10.11 and Tobacco use Z72.0 [facility] [address] [id number] [address] Nov, [facility] [address] [id number] [address] Nov, [facility] [id number] [place] [address] 2173 Nov, Wellness examination Z00.00 ; Encounter for immunization Z23 ; Screening for osteoporosis Z13.820 ; Screening for breast cancer Z12.31 and Left breast lump N63.20 [facility] [id number] [place] [id number] Oct, Dental examination Z01.20 [facility] [id number] [place] [address] 25772- 8848 Oct, [facility] [id number] [place] [address] 73219- 1607 Oct, [place] [id number] [place] [address]25- 3297 16 Sep, 2017 [facility] [id number] [place] [address] 27230- 1463 15 Sep, 2017 [facility] [id number] [place] [address]8833- 1376 14 Sep, 2017 Left otitis media with effusion H65.92 ; Acute suppurative otitis media of right ear without spontaneous rupture of tympanic membrane, recurrence not specified H66.001 ; Dizziness R42 and Fatigue 780.79 [facility] [id number] [place] [address]80- 9155 Aug, Major depressive disorder, recurrent episode, moderate [...] sustained remission F10.11 and Tobacco use Z72.0 [facility] [address] [address] Aug, Ingrown right big toenail L60.0 [facility] [address], [place] [address] Aug, [facility] [id number] [place] [address] 64444- 2784 Aug, PTSD (post-traumatic stress disorder) F43.10 [facility] [id number] [place] [address] 94502- 1137 Aug, Major depressive disorder, recurrent episode, moderate F33.1 ; Generalized anxiety disorder F41.1 and Cannabis abuse F12.10 [place] [id number] [place] [address] 35874- 5569 Jul, [facility] [id number] [place] [address] 44599- 6416 Jul, [place] [id number] [place] [address] 50501- 7225 Jul, [facility] [id number] [place] [address] 60552- 2698 Jul, Major depressive disorder, recurrent episode, moderate F33.1 ; Generalized anxiety disorder F41.1 and Cannabis abuse F12.10 [facility] [address] [place] [address] 69017- 8851 Jul, [place] [id number] [place] [address] 42663- 8069 Jul, [facility] [id number] [place] [address] 56271- 3350 Jul, Hyperlipidemia 272.4 [place] [id number] [place] [address] 12497- 9201 Jul, PTSD (post-traumatic stress disorder) F43.10 [place] [address] [place] [address] 05863- 6626 14 Jul, 2017 Tobacco use Z72.0 ; [...] anxiety disorder F41.1 and Cannabis abuse F12.10 [place] [id number] [place] [address] 66382- 4976 Jul, [place] [address] [address]197[address]- 97[address] Jul, Dysuria R30.0 and Mixed hyperlipidemia E78.[address] [address]- [address] Jun, Major depressive disorder, recurrent episode, moderate F33.1 ; Generalized anxiety disorder F41.1 and Cannabis abuse F12.10 [place] [id number] [place] [address] 47730- 8809 Jun, [place] [id number] [place] [address] 68507- 4089 Jun, Generalized anxiety disorder F41.1 ; Major depressive disorder, recurrent episode, moderate F33.1 ; PTSD (post-traumatic stress disorder) F43.10 ; Opioid use disorder, moderate, in sustained remission F11.21 ; Cannabis abuse F12.10 ; Alcohol use disorder, mild, 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 ; Methamphetamine use disorder, severe, 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 ; Cocaine use disorder, moderate, in sustained remission F14.21 and Tobacco use Z72.0 [place] [id number] [place] [address] 18470- 6470 Jun, Major depressive disorder, recurrent episode, moderate F33.1 ; Generalized anxiety disorder F41.1 and Cannabis abuse F12.10 [place] [id number] [place] [address] 90997- 4131 Jun, [place] [id number] [place] [address] 79553- 2649 Jun, [facility] [address] [place] [address] 32124- 1319 Jun, Major depressive disorder, recurrent episode, moderate F33.1 ; Generalized anxiety disorder F41.1 and Cannabis abuse F12.10 [facility] [address] [id number] Mar, Dental examination Z01.20 [facility] [id number] [place] [address] [id number] Feb, Dental examination Z01.20 [facility] [id number] [place] [address] 89620- 4908 Mar, [facility] [id number] [place] [address] 72618- 6534 Mar, [facility] [id number] [place] [address] 58920- 1094 Feb, Hyperlipidemia 272.4 and Prediabetes 790.29 [facility] [id number] [place] [address] 84765- 2476 Feb, Fatigue 780.79 and Hyperlipidemia 272.4 [facility] [id number] [place] [address] 11498- 8380 Feb, Lumbago 724.2 ; Hyperlipidemia 272.4 ; Insomnia 780.52 and Fatigue 780.79 [facility] [id number] [place] [address] 32673- 0953 Nov, [facility] [id number] [place] [address] 13302- 4447 Nov, [facility] [id number] [place] [address] 36035- 6462 Mar, [facility] [id number] [place] [address] 21580- 2257 Mar, [facility] [id number] [place] [address] 82972- 5341 Jan, [facility] [place] [facility] [address] [id number] [place] [address]- 0916 Jan, [facility] [place] [facility] [address] [id number] [place] [address]- 4842 December, [facility] [place] [facility] [address] [id number] [place] [address]- 3156 December, [facility] [place] [facility] [address] [id number] [place] [address]- 8045 Nov, [facility] [place] [facility] [address] [id number] [place] [address]- 2641 Nov, [facility] [place] [facility] [address] [id number] [place] [address]- 5097 Nov, [facility] [place] [facility] [address] [id number] [place] [address]- 0660 Nov, [facility] [place] [facility] [address] [id number] [place] [address]- 0829 Nov, [facility] [place] [facility] [address] [id number] [place] [address]- 8297 Nov, [facility] [place] [facility] [address] [id number] [place] [address]- 5826 Oct, [facility] [place] [facility] [address] [id number] [place] [address]- 9040 31 Oct, 2013 [facility] [place] [facility] [address] [id number] [place] [address]- 8560 20 Oct, 2013 [facility] [place] [facility] [address] [id number] [place] [address]- 3818 20 Oct, 2013 [facility] [place] [facility] [address] [id number] [place] [address]- 7483 19 Oct, 2013 [facility] [place] [facility] [address] [id number] [place] [address]- 4671 19 Oct, 2013 [facility] [place] [facility] [address] [id number] [place] [address]- 0006 Oct, [facility] [place] [facility] [address] [id number] [place] [address]- 9424 Oct, [facility] [place] [facility] [address] [id number] [place] [address]- 9793 Oct, [facility] [place] [facility] [address] [facility] [id number] [place] [address]- 9640 Oct, [facility] [place] [facility] [address] [facility] [id number] [place] [address]- 7965 Oct, [facility] [place] [facility] [address] [id number] [place] [address]- 3002 Oct, [facility] [place] [facility] [address] [facility] [id number] [place] [address]- 8333 Oct, [facility] [place] [facility] [address] [facility] [id number] [place] [address]- 8208 24 Sep, 2013 [facility] [place] [facility] [address] [id number] [place] [address]- 4743 24 Sep, 2013 [facility] [place] [facility] [address] [facility] [id number] [place] [address]- 4953 Sep, [facility] [place] [facility] [address] [facility] [id number] [place] [address]- 3654 Sep, [facility] [place] [facility] [address] [facility] [id number] [place] [address]- 9518 Sep, [facility] [place] [facility] [address] [facility] [id number] [address]- 2110 Sep, [facility] [place] [facility] [address] [facility] [id number] [place] [address]- 7845 18 Sep, 2013 [facility] [place] [facility] [address] [facility] [id number] [place] [address]- 5697 18 Sep, 2013 [facility] [place] [facility] [address] [facility] [id number], [place] [address]- 5469 14 Sep, 2013 [facility] [place] [facility] [address] [id number] [place] [address]- 2097 14 Sep, 2013 [facility] [place] [facility] [address] [id number] [place] [address]- 0166 14 Sep, 2013 [facility] [place] [facility] [address] [id number] [place] [address]- 3496 14 Sep, 2013 [facility] [place] [facility] [address] [id number] [place] [address]- 6104 14 Sep, 2013 [facility] [place] [facility] [address] [id number] [place] [address]- 4636 14 Sep, 2013 [facility] [place] [facility] [address] [id number] [place] [address]- 7018 Sep, [facility] [place] [facility] [address] [id number] [place] [address]- 9339 Sep, [facility] [place] [facility] [address] [id number] [place] [address]- 8997 Sep, [facility] [place] [facility] [address] [id number] [place] [address]- 9437 Sep, [facility] [place] [facility] [address] [id number] [place] [address]- 0522 Sep, [facility] [place] [facility] [address] [id number] [place] [address]- 7642 Sep, [facility] [place] [facility] [address] [id number] [place] [address]- 4101 Aug, [facility] [place] [facility] [address] [id number] [place] [address]- 2402 Aug, [facility] [place] [facility] [address] [id number] [place] [address]- 0612 Aug, [facility] [place] [facility] [address] [id number] [place] [address]- 2256 Aug, [facility] [place] [facility] [address] [id number] [place] [address]- 5516 Aug, [facility] [address] [id number] [place] 9496 Jul, [facility] [place] [facility] [address] [id number] [place] [address]- 0452 Jul, [facility] [address] [id number] [place] [address]- 4027 Jul, [facility] [place] [facility] [address] [id number] [place] [address]- 8845 Jul, [facility] [address] [id number] [place] 1064 Jul, [facility] [address] [id number] [place] [address]- 1655 Jul, [facility] [address] [id number] [place] [address]- 4213 Jul, [facility] [address] [id number] [place] [address]- 2754 Jul, [facility] [address] [id number] [place] [address]- 9269 Jul, [facility] [address] [facility] [id number] [place] [address]- 8548 Jun, [facility] [address] [id number] [place] [address]- 4747 Jun, [facility] [place] [facility] [address] [id number] [place] [address]- 9677 Jun, [facility] [place] [facility] [address] [id number] [place] [address]- 3432 Jun, [facility] [place] [facility] [address] [id number] [place] [address]- 8677 Jun, [facility] [place] [facility] [address] [id number] [place] [address]- 7851 Jun, [facility] [place] [facility] [address] [id number] [place] [address]- 8986 Jun, [facility] [place] [facility] [address] [id number] [place] 8570 Jun, [facility] [place] [facility] [address] [id number] [place] [address]- 9046 Jun, [facility] [place] [facility] [address] [id number] [place] [address]- 9711 Jun, [facility] [place] [facility] [address] [id number] [place] [address]- 5438 May, [facility] [place] [facility] [address] [id number] [place] [address]- 4214 May, [facility] [place] [facility] [address] [id number] [place] [address]- 3829 May, [facility] [place] [facility] [address] [id number] [place] [address]- 3284 May, [facility] [place] [facility] [address] [id number] [place] [address]- 8198 May, [facility] [place] [facility] [address] [id number] [place] [address]- 1342 May, [facility] [place] [facility] [address] [id number] [place] [address]- 4217 May, [facility] [place] [facility] [address] [id number], [place] [address]- 7088 May, [facility] [place] [facility] [address] [id number] [place] [address]- 5669 May, [facility] [place] [facility] [address] [id number] [place] [address]- 6516 26 Apr, 2013 [facility] [place] [facility] [address] [id number] [place] [address]- 8244 16 Apr, 2013 [facility] [place] [facility] [address] [id number], [place] [address]- 5477 Apr, [facility] [place] [facility] [address] [id number] [place] [address]- 8862 Apr, [facility] [place] [facility] [address] [id number] [place] [address]- 1943 Mar, [facility] [place] [facility] [address] [id number] [place] [address]- 4316 Mar, [facility] [place] [facility] [address] [id number] [place] [address]- 4164 Mar, [facility] [place] [facility] [address] [id number] [place] [address]- 4025 Mar, [facility] [place] [facility] [address] [id number] [place] [address]- 2535 Mar, [facility] [place] [facility] [address] [id number] [place] [address]- 1079 Mar, [facility] [place] [facility] [address] [id number] [place] [address]- 3551 Mar, [facility] [place] [facility] [address] [id number] [place] [address]- 0028 Feb, [facility] [place] [facility] [address] [id number] [place] [address]- 2292 Feb, [facility] [place] [facility] [address] [id number] [place] [address]- 1314 Feb, [facility] [place] [facility] [address] [id number] [place] [address]- 5281 Feb, [facility] [place] [facility] [address] [id number] [place] [address]- 7497 Feb, [facility] [place] [facility] [address] [id number] [place] [address]- 1120 Feb, [facility] [place] [facility] [address] [id number] [place] [address]- 2660 Feb, [facility] [place] [facility] [address] [id number] [place] [address]- 8536 18 Feb, 2013 [facility] [address] [id number] [place] [address]- 8555 Feb, [facility] [address] [id number] [place] [address] 2546 Feb, [facility] [address] [id number] [place] [address]- 5756 Feb, [facility] [address] [id number] [place] [address]- 2126 Jan, [facility] [address] [id number] [place] [address]- 0621 Jan, [facility] [address] [id number] [place] [address]- 2102 December, [facility] [address] [id number] [place] [address]- 9543 December, [facility] [address] [id number] [place] [address]- 5665 Nov, [facility] [address] [id number] [place] [address]- 8935 Nov, [facility] [address] [id number] [place] [address]- 9808 Oct, [facility] [address] [id number] [place] [address]- 6051 Oct, [facility] [address] [id number] [place] [address]- 3096 Oct, [facility] [address] [id number] [place] [address]- 1084 Oct, [facility] [address] [id number] [place] [address]- 5416 Sep, [facility] [address] [id number] [place] [address]- 1044 Sep, [facility] [place] [facility] [address] [id number] [place] [address]- 1588 Sep, [facility] [place] [facility] [address] [id number] [place] [address]- 3456 Sep, [facility] [place] [facility] [address] [id number] [place] [address]- 5896 Aug, [facility] [place] [facility] [address] [id number] [place] [address]- 1408 Aug, [facility] [place] [facility] [address] [id number] [place] [address]- 6734 Jul, [facility] [place] [facility] [address] [id number] [place] [address]- 9583 Jul, [facility] [place] [facility] [address] [id number] [place] [address] Jul, [facility] [place] [facility] [address] [id number] [place] [address] Jul, [facility] [place] [facility] [address] [id number] [place] [address] Jul, [facility] [place] [facility] [address] [id number] [place] [address] Jul, [facility] [place] [facility] [address] [id number] [place] [address] Jun, [facility] [place] [facility] [address] [id number], [place] [address] Jun, [facility] [place] [facility] [address] [id number] [place] [address] Jun, [facility] [place] [facility] [address] [id number] [place] [address] Jun, [facility] [place] [facility] [address] [id number] [place] [address] Jun, [facility] [place] [facility] [address] [id number] [place] [address] May, [facility] [place] [facility] [address] [id number] [place] [address] May, [facility] [place] [facility] [address] [id number] [place] [address] May, [facility] [place] [facility] [address] [id number] [place] [address] May, [facility] [place] [facility] [address] [id number] [place] [address] May, [facility] [place] [facility] [address] [id number] [place] [address] May, [facility] [place] [facility] [address] [id number] [place] [address] May, [facility] [place] [facility] [address] [id number] [place] [address] May, [facility] [place] [facility] [address] [id number] [place] [address] Mar, [facility] [place] [facility] [address] [id number] [place] [address] Mar, [facility] [place] [facility] [address] [id number] [place] [address] Mar, [facility] [place] [facility] [address] [id number] [place] [address] Feb, [facility] [place] [facility] [address] [id number] [place] [address] Feb, [facility] [place] [facility] [address] [id number] [place] [address] Feb, [facility] [place] [facility] [address] [id number] [place] [address] Feb, [facility] [place] [facility] [address] [id number] [place] [address] Jan, [facility] [place] [facility] [address] [id number] [place] [address] Jan, [facility] [place] [facility] [address] [id number] [place] [address] Jan, [facility] [address] [id number] [place] [address] December, [facility] [address] [id number] [place] [address] Nov, [facility] [address] [id number] [place] [address] Oct, [facility] [address] [id number] [place] [address] Oct, [facility] [address] [id number] [place] [address] Oct, [facility] [address] [id number] [place] [address] Oct, [facility] [address] [id number] [place] [address] Aug, [facility] [address] [id number] [place] [address] Aug, [facility] [address] [id number] [place] [address] Aug, [facility] [place] [facility] [address] [id number] [place] [address] Aug, [facility] [place] [facility] [address] [id number] [place] [address] Aug, [facility] [place] [facility] [address] [id number] [place] [address] Aug, [facility] [facility] [address] [id number] [place] [address] Aug, [facility] [place] [facility] [address] [id number] [place] [address] Aug, [facility] [address] [id number] [place] [address] Jul, [facility] [place] [facility] [address] [id number] [place] [address] Jun, [facility] [place] [facility] [address] [id number] [place] [address] Jun, [facility] [place] [facility] [address] [id number] [place] [address] 31 Jul, 2010 [facility] [place] [facility] [address] [id number] [place] [address] Jul, [facility] [place] [facility] [address] [id number] [place] [address] Jul, [facility] [place] [facility] [address] [id number] [place] [address] Jul, [facility] [place] [facility] [address] [id number] [place] [address] 14 Jul, 2010 [facility] [place] [facility] [address] [id number] [place] [address] Jun, [facility] [place] [facility] [address] [id number] [place] [address] May, [facility] [place] [facility] [address] [id number] [place] [address] Mar, [facility] [place] [facility] [address] [id number] [place] [address] Oct, [facility] [place] [facility] [address] [id number] [place] [address] Aug, [facility] [place] [facility] [address] [id number] [place] [address] 15 Jul, 2009 [facility] [place] [facility] [address] [id number] [place] [address] Jul, [facility] [facility] [address] [facility] [id number] [place] [address] Jun, [facility] [id number] [address] Jun, [facility] [address] [id number] [address] May, [facility] [address] [id number] [address] May, [facility] [address] [id number] [address] Mar, [facility] [id number], [place] [address] Mar, [facility] [id number], [place] [address] Oct, IMMUNIZATIONS No Known Immunizations SOCIAL HISTORY [...] disc replacement L1- L5 - Dr Muhammad ([place]) Surgical History appendectomy 1983 Surgical History hysterectomy 1993 Surgical History dilatation and curettage Surgical History heart cath- Dr Shaw [address] Meza bowel and intestines 2015 Hospitalization History Hospitalization for surgery only
--- OUTSIDE RECORDS SUMMARY | 2018-04-23 11:35 | XMS REPORT ---
Author Author KACIE MONSON [facility] Address Unknown Care Team Providers Care Economic Development Specialist Name Role Phone KACIE MONSON Unavailable PROBLEMS Type Condition ICD9-CM Code CYD63-SV Code Onset Dates Condition Status SNOMED Code Problem Major depressive disorder, recurrent episode, moderate F33.1 Active 485952166 Problem PTSD (post-traumatic stress disorder) F43.10 Active 74166264 Problem Cannabis abuse F12.10 Active 70870527 Problem GERD with esophagitis K21.0 Active 764548983 Problem Spasm of muscle 728.85 Active 19851044 Problem Cocaine use disorder, moderate, in sustained remission F14.21 Active 53022099 Problem Diarrhea 787.91 Active 14274659 Problem Alcohol use disorder, mild, 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 Active 64164337 Problem Tobacco use Z72.0 Active 342165976 Problem Methamphetamine use disorder, severe, 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2 Active 968533584 Problem Insomnia 780.52 Active 185802509 Problem Generalized anxiety disorder F41.1 Active 31994200 ALLERGIES No Information ENCOUNTERS Encounter Location Date Diagnosis [facility] [address] [facility] [id number] [id number] Mar, [facility] [address] [id number], [place] [address] Feb, [facility] [address] [id number], [place] [address] Jan, Cocaine use disorder, moderate, in sustained remission F14.21 [facility] [address] [id number], [place] [address] Jan, Cocaine use disorder, moderate, in sustained [...] Major depressive disorder, recurrent episode, moderate F33.1 [facility] [address], [place] [address] Jan, Dysuria R30.0 and GERD with esophagitis K21.0 [facility] [address], [place] [address] December, Major depressive disorder, recurrent episode, moderate F33.1 [facility] [address], [place] [address] December, [facility] [address] [id number], [place] [address] December, Major depressive disorder, recurrent episode, moderate [...] sustained remission F10.11 and Tobacco use Z72.0 [facility] [address] [id number], [place] [address] Nov, [facility] [address] [id number] [address] Nov, [facility] [id number] [place] [address]58- 2727 Nov, Wellness examination Z00.00 ; Encounter for immunization Z23 ; Screening for osteoporosis Z13.820 ; Screening for breast cancer Z12.31 and Left breast lump N63.20 [facility] [address] [id number] Oct, Dental examination Z01.20 [facility] [id number] [place] [address] 57263- 6883 Oct, [facility] [id number] [place] [address] 58810- 5039 Oct, [facility] [id number] [place] [address] 47052- 1257 16 Sep, 2017 [id number] [place] [address] 13955- 5416 15 Sep, 2017 [facility] [id number] [place] [address] 77274- 9365 14 Sep, 2017 Left otitis media with effusion H65.92 ; Acute suppurative otitis media of right ear without spontaneous rupture of tympanic membrane, recurrence not specified H66.001 ; Dizziness R42 and Fatigue 780.79 [facility] [id number] [place] [address] 04924- 2425 Aug, Major depressive disorder, recurrent episode, moderate [...] Z72.0 [facility] [address], [place] [address] Aug, Ingrown right big toenail L60.0 [address] [address], [place] [address] Aug, [place] [id number] [place] [address] 01001- 8616 Aug, PTSD (post-traumatic stress disorder) F43.10 [place] [id number] [place] [address] 30345 2546 Aug, Major depressive disorder, recurrent episode, moderate F33.1 ; Generalized anxiety disorder F41.1 and Cannabis abuse F12.10 [place] [id number] [place] [address] 66056- 8516 Jul, [place] [id number] [place] [address] 10286- 4646 Jul, [place] [id number] [place] [address] 91041- 3126 Jul, [place] [id number] [place] [address] 05980- 1851 Jul, Major depressive disorder, recurrent episode, moderate F33.1 ; Generalized anxiety disorder F41.1 and Cannabis abuse F12.10 [place] [address] [place] [address] 60382- 9816 Jul, [place] [id number] [place] [address] 75733- 4056 Jul, [place] [id number] [place] [address] 12981 2542 Jul, Hyperlipidemia 272.4 [place] [address] [place] [address] 67451- 6816 Jul, PTSD (post-traumatic stress disorder) F43.10 [facility] [address] [place] [address] 67611- 8052 Jul, Tobacco use Z72.0 ; Alcohol use [...] anxiety disorder F41.1 and Cannabis abuse F12.10 [address] [address], [place] [address] Jul, [id number] [place] [address] 86775- 8769 Jul, Dysuria R30.0 and Mixed hyperlipidemia E78.2 [id number] [place] [address] 46811- 3377 Jun, Major depressive disorder, recurrent episode, moderate F33.1 ; Generalized anxiety disorder F41.1 and Cannabis abuse F12.10 [id number] [place] [address] 63903- 0521 Jun, [id number] [place] [address] 80929- 3491 Jun, Generalized anxiety disorder F41.1 ; Major depressive disorder, recurrent episode, moderate F33.1 ; PTSD (post-traumatic stress disorder) F43.10 ; Opioid use disorder, moderate, in sustained remission F11.21 ; Cannabis abuse F12.10 ; Alcohol use disorder, mild, 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 ; Methamphetamine use disorder, severe, 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 ; Cocaine use disorder, moderate, in sustained remission F14.21 and Tobacco use Z72.0 [address] [address], [place] [address] 69[address] Jun, Major depressive disorder, recurrent episode, moderate F33.1 ; Generalized anxiety disorder F41.1 and Cannabis abuse F12.10 [address] [place] [address] 13496- 5213 Jun, [id number] [place] [address] 22297- 2446 Jun, [address] [place] [address] Jun, Major depressive disorder, recurrent episode, moderate F33.1 ; Generalized anxiety disorder F41.1 and Cannabis abuse F12.10 [facility] [id number] [place] [id number] Mar, Dental examination Z01.20 [facility] [id number] [place] [id number] Feb, Dental examination Z01.20 [facility] [address] [address] Mar, [facility] [address] [address]- 2271 Mar, [facility] [address] [address]687- 9352 Feb, Hyperlipidemia 272.4 and Prediabetes 790.29 [facility] [address] [address]18- 1339 Feb, Fatigue 780.79 and Hyperlipidemia 272.4 [facility] [id number] [place] [address] 91984- 7002 Feb, Lumbago 724.2 ; Hyperlipidemia 272.4 ; Insomnia 780.52 and Fatigue 780.79 [facility] [id number] [place] [address] 76012- 4423 Nov, [facility] [id number] [place] [address] 42811- 2655 Nov, [facility] [id number] [place] [address] 77605- 5211 Mar, [facility] [address] 33757- 5347 Mar, [facility] [id number] [place] [address] 58802- 4517 Jan, [facility] [address] [address]047- 6990 Jan, [facility] [place] [facility] [address] [id number] [place] [address]- 6504 December, [facility] [place] [facility] [address] [id number] [place] [address] December, [facility] [place] [facility] [address] [id number] [place] [address]- 4184 Nov, [facility] [place] [facility] [address] [id number] [place] [address]- 6389 Nov, [facility] [place] [facility] [address] [id number] [place] [address]- 7019 Nov, [facility] [place] [facility] [address] [id number] [place] [address]- 5468 Nov, [facility] [place] [facility] [address] [id number] [place] [address]- 3127 Nov, [facility] [place] [facility] [address] [id number] [place] [address]- 2457 Nov, [facility] [place] [facility] [address] [id number] [place] [address]- 7139 Oct, [facility] [place] [facility] [address] [id number] [place] [address]- 6351 31 Oct, 2013 [facility] [place] [facility] [address] [id number] [place] [address]- 9626 Oct, [facility] [place] [facility] [address] [id number] [place] [address]- 9967 20 Oct, 2013 [facility] [place] [facility] [address] [id number] [place] [address]- 9536 19 Oct, 2013 [facility] [place] [facility] [address] [id number] [place] [address]- 4391 Oct, [facility] [place] [facility] [address] [id number] [place] [address]- 1864 12 Oct, 2013 [facility] [place] [facility] [address] [id number] [place] [address]- 9406 12 Oct, 2013 [facility] [place] [facility] [address] [id number] [place] [address]- 2620 Oct, [facility] [place] [facility] [address] [id number] [place] [address]- 0983 Oct, [facility] [place] [facility] [address] [id number] [place] [address]- 1801 04 Oct, 2013 [facility] [place] [facility] [address] [id number] [place] [address]- 0018 Oct, [facility] [place] [facility] [address] [id number] [place] [address]- 2782 Oct, [facility] [place] [facility] [address] [facility] [id number] [place] [address]- 0515 24 Sep, 2013 [facility] [place] [facility] [address] [id number] [place] [address]- 3270 24 Sep, 2013 [facility] [place] [facility] [address] [id number] [place] [address]- 1760 Sep, [facility] [place] [facility] [address] [facility] [id number] [place] [address]- 6975 Sep, [facility] [place] [facility] [address] [facility] [id number] [place] [address]- 0573 Sep, [facility] [place] [facility] [address] [facility] [id number] [place] [address]- 0145 Sep, [facility] [place] [facility] [address] [facility] [id number] [place] [address]- 3098 18 Sep, 2013 [facility] [place] [facility] [address] [id number] [place] [address]- 8134 18 Sep, 2013 [facility] [place] [facility] [address] [facility] [id number] [place] [address]- 1268 14 Sep, 2013 [facility] [place] [facility] [address] [facility] [id number] [place] [address]- 9484 14 Sep, 2013 [facility] [place] [facility] [address] [id number] [place] [address]- 5326 14 Sep, 2013 [facility] [place] [facility] [address] [id number] [place] [address]- 2336 14 Sep, 2013 [facility] [place] [facility] [address] [id number] [place] [address]- 2086 14 Sep, 2013 [facility] [place] [facility] [address] [id number] [place] [address]- 2220 14 Sep, 2013 [facility] [place] [facility] [address] [id number] [place] [address]- 3336 13 Sep, 2013 [facility] [place] [facility] [address] [id number] [place] [address]- 9931 13 Sep, 2013 [facility] [place] [facility] [address] [id number] [place] [address]- 4361 12 Sep, 2013 [facility] [place] [facility] [address] [id number] [place] [address]- 0426 12 Sep, 2013 [facility] [place] [facility] [address] [id number] [place] [address]- 4976 03 Sep, 2013 [facility] [place] [facility] [address] [id number] [place] [address]- 4249 Sep, [facility] [place] [facility] [address] [id number] [place] [address]- 0427 Aug, [facility] [place] [facility] [address] [id number] [place] [address]- 1406 Aug, [facility] [place] [facility] [address] [id number] [place] [address]- 2692 Aug, [facility] [place] [facility] [address] [id number] [place] [address]- 3929 Aug, [facility] [place] [facility] [address] [id number] [place] [address]- 6745 Aug, [facility] [address] [id number] [place] [address]- 0677 Jul, [facility] [place] [facility] [address] [id number] [place] [address]- 2202 Jul, [facility] [place] [facility] [address] [id number] [place] [address]- 9050 Jul, [facility] [place] [facility] [address] [id number] [place] [address]- 0250 Jul, [facility] [place] [facility] [address] [id number] [place] [address]- 0939 Jul, [facility] [place] [facility] [address] [id number] [place] [address]- 4027 Jul, [facility] [place] [facility] [address] [id number] [place] [address]- 3484 Jul, [facility] [place] [facility] [address] [id number], [place] [address]- 6494 Jul, [facility] [place] [facility] [address] [id number] [place] [address]- 1553 Jul, [facility] [place] [facility] [address] [id number], [place] [address]- 5987 Jun, [facility] [place] [facility] [address] [id number], [place] [address]- 6911 Jun, [facility] [place] [facility] [address] [id number], [place] [address]- 7886 Jun, [facility] [place] [facility] [address] [id number] [place] [address]- 1525 Jun, [facility] [place] [facility] [address] [id number], [place] [address]- 5948 Jun, [facility] [place] [facility] [address] [id number] [place] [address]- 5166 Jun, [facility] [place] [facility] [address] [id number] [place] [address]- 2736 18 Jun, 2013 [facility] [place] [facility] [address] [id number] [place] [address]- 6207 18 Jun, 2013 [facility] [place] [facility] [address] [id number] [place] [address]- 4790 Jun, [facility] [place] [facility] [address] [id number] [place] [address]- 4614 Jun, [facility] [place] [facility] [address] [id number] [place] [address]- 7652 28 May, 2013 [facility] [place] [facility] [address] [id number] [place] [address]- 7785 May, [facility] [place] [facility] [address] [id number] [place] [address]- 4247 May, [facility] [place] [facility] [address] [id number] [place] [address]- 0949 May, [facility] [place] [facility] [address] [id number] [place] [address]- 7948 16 May, 2013 [facility] [place] [facility] [address] [id number] [place] [address]- 5543 May, [facility] [place] [facility] [address] [id number] [place] [address]- 6880 May, [facility] [place] [facility] [address] [id number] [place] [address]- 5041 May, [facility] [place] [facility] [address] [id number] [place] [address]- 0741 May, [facility] [place] [facility] [address] [id number] [place] [address]- 6944 26 Apr, 2013 [facility] [place] [facility] [address] [id number] [place] 5193 16 Apr, 2013 [facility] [place] [facility] [address] [id number] [place] [address]- 8126 12 Apr, 2013 [facility] [place] [facility] [address] [id number] [place] [address]- 7681 Apr, [facility] [place] [facility] [address] [id number] [place] [address]- 4165 Mar, [facility] [place] [facility] [address] [id number] [place] [address]- 8246 Mar, [facility] [place] [facility] [address] [id number] [place] [address]- 3865 Mar, [facility] [place] [facility] [address] [id number] [place] [address]- 0218 Mar, [facility] [place] [facility] [address] [id number] [place] [address]- 8793 Mar, [facility] [place] [facility] [address] [id number] [place] [address]- 4006 Mar, [facility] [place] [facility] [address] [id number] [place] [address]- 1464 Mar, [facility] [place] [facility] [address] [id number] [place] [address]- 3584 Feb, [facility] [place] [facility] [address] [id number] [place] [address]- 1140 Feb, [facility] [place] [facility] [address] [id number] [place] [address]- 8984 Feb, [facility] [place] [facility] [address] [id number] [place] [address]- 0422 Feb, [facility] [place] [facility] [address] [id number] [place] [address]- 8000 Feb, [facility] [place] [facility] [address] [id number] [place] [address]- 8681 Feb, [facility] [place] [facility] [address] [id number] [place] [address]- 6822 Feb, [facility] [place] [facility] [address] [id number] [place] [address]- 7338 Feb, [facility] [place] [facility] [address] [id number] [place] [address]- 5034 Feb, [facility] [place] [facility] [address] [id number] [place] [address]- 1682 Feb, [facility] [place] [facility] [address] [id number] [place] [address]- 6445 Feb, [facility] [place] [facility] [address] [id number] [place] [address]- 5670 Jan, [facility] [place] [facility] [address] [id number] [place] [address]- 9050 Jan, [facility] [place] [facility] [address] [id number] [place] [address]- 0938 December, [facility] [place] [facility] [address] [id number] [place] [address]- 8214 December, [facility] [place] [facility] [address] [id number] [place] [address]- 3304 Nov, [facility] [place] [facility] [address] [id number] [place] [address]- 7945 Nov, [facility] [place] [facility] [address] [id number] [place] [address]- 3608 Oct, [facility] [place] [facility] [address] [id number] [place] [address]- 8342 Oct, [facility] [place] [facility] [address] [id number] [place] [address]- 1379 Oct, [facility] [place] [facility] [address] [id number] [place] [address]- 7495 Oct, [facility] [place] [facility] [address] [id number] [place] [address]- 6181 Sep, [facility] [place] [facility] [address] [id number] [place] [address]- 9137 Sep, [facility] [place] [facility] [address] [id number] [place] [address]- 6361 Sep, [facility] [address] [id number] [place] [address]- 7996 Sep, [facility] [address] [id number] [place] [address]- 2546 Aug, [facility] [address] [id number] [place] [address]- 9696 Aug, [facility] [address] [id number] [place] [address]- 9889 Jul, [facility] [address] [id number] [place] [address]- 2802 Jul, [facility] [address] [id number] [place] 1275 Jul, [facility] [address] [id number] [place] [address]- 5755 Jul, [facility] [address] [id number] [place] [address] Jul, [facility] [address] [id number] [place] [address] Jul, [facility] [address] [id number] [place] [address] Jun, [facility] [place] [facility] [address] [id number] [place] [address] Jun, [facility] [place] [facility] [address] [id number] [place] [address] Jun, [facility] [place] [facility] [address] [id number] [place] [address] Jun, [facility] [place] [facility] [address] [id number] [place] [address] Jun, [facility] [place] [facility] [address] [id number] [place] [address] May, [facility] [place] [facility] [address] [id number] [place] [address] May, [facility] [place] [facility] [address] [id number] [place] [address] May, [facility] [place] [facility] [address] [id number] [place] [address] May, [facility] [place] [facility] [address] [id number] [place] [address] May, [facility] [place] [facility] [address] [id number] [place] [address] May, [facility] [place] [facility] [address] [id number] [place] [address] May, [facility] [place] [facility] [address] [id number] [place] [address] May, [facility] [place] [facility] [address] [id number] [place] [address] Mar, [facility] [place] [facility] [address] [id number] [place] [address] Mar, [facility] [place] [facility] [address] [id number] [place] [address] Mar, [facility] [place] [facility] [address] [id number] [place] [address] Feb, [facility] [place] [facility] [address] [id number], [place] [address] Feb, [facility] [place] [facility] [address] [id number] [place] [address] Feb, [facility] [place] [facility] [address] [id number] [place] [address] Feb, [facility] [place] [facility] [address] [id number] [place] [address] Jan, [facility] [place] [facility] [address] [id number] [place] [address] Jan, [facility] [address] [id number] [place] [address] Jan, [facility] [place] [facility] [address] [id number] [place] [address] December, [facility] [place] [facility] [address] [id number] [place] [address] Nov, [facility] [place] [facility] [address] [id number] [place] [address] Oct, [facility] [place] [facility] [address] [id number] [place] [address] Oct, [facility] [place] [facility] [address] [id number] [place] [address] Oct, [facility] [address] [id number] [place] [address] Oct, [facility] [place] [facility] [address] [id number] [place] [address] Aug, [facility] [place] [facility] [address] [id number] [place] [address] Aug, [facility] [place] [facility] [address] [id number] [place] [address] Aug, [facility] [place] [facility] [address] [id number] [place] [address] Aug, [facility] [place] [facility] [address] [id number] [place] [address] Aug, [facility] [place] [facility] [address] [id number] [place] [address] Aug, [facility] [place] [facility] [address] [id number] [place] [address] Aug, [facility] [place] [facility] [address] [id number] [place] [address] Aug, [facility] [place] [facility] [address] [id number] [place] [address] 08 Jul, 2011 [facility] [address] [id number] [place] [address]- [address] 29 Jun, 2011 [facility] [place] [facility] [address] [id number] [place] [address] 29 Jun, 2011 [facility] [address] [id number] [place] [address] 31 Jul, 2010 [facility] [place] [facility] [address] [id number] [place] [address] Jul, [facility] [place] [facility] [address] [id number] [place] [address] Jul, [facility] [address] [id number] [place] [id number] 14 Jul, 2010 [facility] [address] [id number] [place] [address] 14 Jul, 2010 [facility] [address] [id number] [place] [address] 24 Jun, 2010 [facility] [place] [facility] [address] [id number] [place] [address] May, [facility] [place] [facility] [address] [id number] [place] [address] Mar, [facility] [place] [facility] [address] [id number] [place] [address] Oct, [facility] [place] [facility] [address] [id number] [place] [address] Aug, [facility] [place] [facility] [address] [id number] [place] [address] 15 Jul, 2009 [facility] [place] [facility] [address] [id number] [place] [address] Jul, [facility] [place] [facility] [address] [id number] [place] [address] Jun, [facility] [address] [facility] [id number] [place] [address] Jun, [facility] [address] [facility] [id number], [place] [address] May, [facility] [address] [facility] [id number], [place] [address] May, [facility] [address] [facility] [id number], [place] [address] Mar, [facility] [address] [facility] [id number], [place] [address] Mar, [facility] [address] [facility] [id number], [place] [address] Oct, IMMUNIZATIONS No Known Immunizations SOCIAL HISTORY Never Assessed REASON FOR VISIT filling PLAN OF CARE VITAL SIGNS MEDICATIONS Unknown Medications RESULTS No Results PROCEDURES Procedure Date Ordered Result Body Site Billing Notes on claim November 02, 2017 INSTRUCTIONS MEDICATIONS ADMINISTERED No Known Medications [...] disc replacement L1- L5 - Dr Muhammad ([place]) Surgical History appendectomy 1983 Surgical History hysterectomy 1993 Surgical History dilatation and curettage Surgical History heart cath- Dr Shaw [address] Meza bowel and intestines 2015 Hospitalization History Hospitalization for surgery only
--- OUTSIDE RECORDS SUMMARY | 2018-04-23 11:36 | XMS REPORT ---
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 Name Role Phone WILD RODRIGUEZ Unavailable PROBLEMS Type Condition ICD9-CM Code FYU19-OZ Code Onset Dates Condition Status SNOMED Code Problem Major depressive disorder, recurrent episode, moderate F33.1 Active 986391148 Problem PTSD (post-traumatic stress disorder) F43.10 Active 34281402 Problem Cannabis abuse F12.10 Active 40663649 Problem GERD with esophagitis K21.0 Active 963270188 Problem Spasm of muscle 728.85 Active 66639582 Problem Cocaine use disorder, moderate, in sustained remission F14.21 Active 03604328 Problem Diarrhea 787.91 Active 54564816 Problem Alcohol use disorder, mild, 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 Active 66401852 Problem Tobacco use Z72.0 Active 229505421 Problem Methamphetamine use disorder, severe, 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2 Active 522530302 Problem Insomnia 780.52 Active 497764508 Problem Generalized anxiety disorder F41.1 Active 83174153 ALLERGIES No Information ENCOUNTERS Encounter Location Date Diagnosis [facility] [address] [facility] [id number] [id number] Mar, [facility] [address] [address] Feb, [facility] [address], [place] [address] Jan, Cocaine use disorder, moderate, in sustained remission F14.21 [facility] [address], [place] [address] Jan, Cocaine use disorder, moderate, in sustained [...] Major depressive disorder, recurrent episode, moderate F33.1 [facility] [id number] [address] Jan, Dysuria R30.0 and GERD with esophagitis K21.0 [facility] [id number] [address] December, Major depressive disorder, recurrent episode, moderate F33.1 [facility] [address], [place] [address] December, [facility] [id number], [place] [address] December, Major depressive disorder, recurrent episode, moderate [...] sustained remission F10.11 and Tobacco use Z72.0 [facility] [id number] [address] Nov, [facility] [address] [id number] [address] Nov, [facility] [id number] [place] [address]- 6820 Nov, Wellness examination Z00.00 ; Encounter for immunization Z23 ; Screening for osteoporosis Z13.820 ; Screening for breast cancer Z12.31 and Left breast lump N63.20 [facility] [id number] [place] [id number] Oct, Dental examination Z01.20 [facility] [id number] [place] [address]- 2888 Oct, [place] [address] [address] Oct, [place] [id number] [place] [address]285- 3985 16 Sep, 2017 [place] [id number] [place] [address] 13860- 7136 15 Sep, 2017 [facility] [id number] [place] [address] 56016- 4222 14 Sep, 2017 Left otitis media with effusion H65.92 ; Acute suppurative otitis media of right ear without spontaneous rupture of tympanic membrane, recurrence not specified H66.001 ; Dizziness R42 and Fatigue 780.79 [place] [id number] [place] [address]29- 6776 Aug, Major depressive disorder, recurrent episode, moderate [...] sustained remission F10.11 and Tobacco use Z72.0 [facility] [address] [place] [address] 23 Jeremy, 2018 Ingrown right big toenail L60.0 [facility] [address], [place] [address] Aug, [facility] [id number] [place] [address] 50105- 1176 Aug, PTSD (post-traumatic stress disorder) F43.10 [facility] [id number] [place] [address]41 2546 Aug, Major depressive disorder, recurrent episode, moderate F33.1 ; Generalized anxiety disorder F41.1 and Cannabis abuse F12.10 [facility] [id number] [place] [address] 74536- 1886 Jul, [place] [id number] [place] [address]32- 7286 Jul, [facility] [id number] [place] [address] 76974- 2996 Jul, [facility] [id number] [place] [address] 17577- 6758 Jul, Major depressive disorder, recurrent episode, moderate F33.1 ; Generalized anxiety disorder F41.1 and Cannabis abuse F12.10 [facility] [address], [place] [address] 86[address] Jul, [facility] [address] [place] [address] 94059- 6646 Jul, [facility] [id number] [place] [address] 21142 2546 Jul, Hyperlipidemia 272.4 [facility] [address] [place] [address] 30901 2546 Jul, PTSD (post-traumatic stress disorder) F43.10 [facility] [address], [place] [address] Jul, Tobacco use Z72.0 ; Alcohol use [...] anxiety disorder F41.1 and Cannabis abuse F12.10 [place] [id number] [place] [address] 79[address]- 6621 Jul, [place] [id number] [place] [address] 60429- 7439 Jul, Dysuria R30.0 and Mixed hyperlipidemia E78.[address] [address]- [address] Jun, Major depressive disorder, recurrent episode, moderate F33.1 ; Generalized anxiety disorder F41.1 and Cannabis abuse F12.10 [place] [id number] [place] [address]37- 5917 Jun, [place] [id number] [place] [address] 89881- 3872 Jun, Generalized anxiety disorder F41.1 ; Major depressive disorder, recurrent episode, moderate F33.1 ; PTSD (post-traumatic stress disorder) F43.10 ; Opioid use disorder, moderate, in sustained remission F11.21 ; Cannabis abuse F12.10 ; Alcohol use disorder, mild, 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 ; Methamphetamine use disorder, severe, 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 ; Cocaine use disorder, moderate, in sustained remission F14.21 and Tobacco use Z72.0 [place] [address] [place] [address] 79959- 0711 Jun, Major depressive disorder, recurrent episode, moderate F33.1 ; Generalized anxiety disorder F41.1 and Cannabis abuse F12.10 [place] [address] [place] [address]99- 8049 Jun, [place] [id number] [place] [address] 96927- 6932 Jun, [place] [address] [place] [address] 49887- 0735 Jun, Major depressive disorder, recurrent episode, moderate F33.1 ; Generalized anxiety disorder F41.1 and Cannabis abuse F12.10 [facility] [address] [place] [id number] Mar, Dental examination Z01.20 [facility] [id number] [place] [address] [id number] Feb, Dental examination Z01.20 [facility] [id number] [place] [address] 12672- 8959 Mar, [facility] [id number] [place] [address] 15198- 5967 Mar, [facility] [id number] [place] [address] 52335- 2724 Feb, Hyperlipidemia 272.4 and Prediabetes 790.29 [facility] [id number] [place] [address] 93427- 6796 Feb, Fatigue 780.79 and Hyperlipidemia 272.4 [facility] [id number] [place] [address] 04133- 8233 Feb, Lumbago 724.2 ; Hyperlipidemia 272.4 ; Insomnia 780.52 and Fatigue 780.79 [facility] [address] [place] [address] 88552- 5685 Nov, [facility] [id number] [place] [address] 09494- 1092 Nov, [facility] [address] [place] [address] 18208- 5362 Mar, [facility] [address] [place] [address] 85432- 3715 Mar, [facility] [address] [place] [address] 74643- 7117 Jan, [facility] [id number] [place] [address]- 1819 Jan, [facility] [address] [id number] [place] [address]- 3002 December, [facility] [place] [facility] [address] [id number] [place] [address]- 7356 December, [facility] [address] [id number] [place] [address]- 1671 Nov, [facility] [place] [facility] [address] [id number] [place] [address]- 1856 Nov, [facility] [address] [id number] [place] [address]- 2830 Nov, [facility] [address] [id number] [place] [address]- 7293 Nov, [facility] [address] [id number] [place] [address]- 1866 Nov, [facility] [address] [id number] [place] [address]- 3710 Nov, [facility] [address] [id number] [place] [address]- 2957 Oct, [facility] [address] [id number] [place] [address]- 0540 31 Oct, 2013 [facility] [place] [facility] [address] [id number] [place] [address]- 3424 Oct, [facility] [place] [facility] [address] [id number] [place] [address]- 6927 Oct, [facility] [place] [facility] [address] [id number] [place] [address]- 0606 Oct, [facility] [place] [facility] [address] [id number] [place] [address]- 0164 Oct, [facility] [place] [facility] [address] [id number] [place] [address]- 6847 Oct, [facility] [place] [facility] [address] [id number] [place] [address]- 5292 Oct, [facility] [place] [facility] [address] [id number] [place] [address]- 9913 Oct, [facility] [place] [facility] [address] [id number] [place] [address]- 1946 Oct, [facility] [place] [facility] [address] [id number] [place] [address]- 2043 Oct, [facility] [place] [facility] [address] [id number] [place] [address]- 4790 Oct, [facility] [place] [facility] [address] [id number] [place] [address]- 1729 Oct, [facility] [place] [facility] [address] [facility] [id number] [place] [address]- 4073 24 Sep, 2013 [facility] [place] [facility] [address] [id number] [place] [address]- 6115 24 Sep, 2013 [facility] [place] [facility] [address] [id number] [place] [address]- 2931 Sep, [facility] [place] [facility] [address] [facility] [id number] [place] [address]- 4622 Sep, [facility] [place] [facility] [address] [id number] [place] [address]- 6789 Sep, [facility] [place] [facility] [address] [id number] [place] [address]- 6412 Sep, [facility] [place] [facility] [address] [id number] [place] [address]- 9232 18 Sep, 2013 [facility] [place] [facility] [address] [id number] [place] [address]- 6683 18 Sep, 2013 [facility] [place] [facility] [address] [facility] [id number] [place] [address]- 5208 14 Sep, 2013 [facility] [place] [facility] [address] [id number] [place] [address]- 2163 14 Sep, 2013 [facility] [place] [facility] [address] [id number] [place] [address]- 2696 14 Sep, 2013 [facility] [place] [facility] [address] [id number] [place] [address]- 1766 14 Sep, 2013 [facility] [place] [facility] [address] [id number] [place] [address]- 5628 14 Sep, 2013 [facility] [place] [facility] [address] [id number] [place] [address]- 5203 14 Sep, 2013 [facility] [place] [facility] [address] [id number] [place] [address]- 8296 13 Sep, 2013 [facility] [place] [facility] [address] [id number] [place] [address]- 7920 13 Sep, 2013 [facility] [place] [facility] [address] [id number] [place] [address]- 8451 12 Sep, 2013 [facility] [place] [facility] [address] [id number] [place] [address]- 9624 Sep, [facility] [place] [facility] [address] [facility] [id number] [place] [address]- 0146 03 Sep, 2013 [facility] [place] [facility] [address] [id number] [place] [address]- 4244 Sep, [facility] [place] [facility] [address] [id number], [place] [address]- 8102 Aug, [facility] [place] [facility] [address] [id number] [place] [address]- 4301 Aug, [facility] [place] [facility] [address] [id number] [place] [address]- 1141 Aug, [facility] [place] [facility] [address] [id number], [place] [address]- 3377 Aug, [facility] [place] [facility] [address] [id number], [place] [address]- 2988 Aug, [facility] [address] [id number] [place] [address]- 5956 Jul, [facility] [place] [facility] [address] [id number] [place] [address]- 1123 Jul, [facility] [place] [facility] [address] [facility] [id number] [place] [address]- 8201 Jul, [facility] [place] [facility] [address] [id number] [place] [address]- 2411 Jul, [facility] [address] [id number] [place] [address]- 4811 Jul, [facility] [place] [facility] [address] [facility] [id number] [place] [address]- 0169 Jul, [facility] [id number] [place] [address]- 3891 Jul, [facility] [place] [facility] [address] [facility] [id number] [place] [address]- 5177 Jul, [facility] [address] [facility] [id number] [place] [address]- 9114 Jul, [facility] [place] [facility] [address] [facility] [id number] [place] [address]- 9904 Jun, [facility] [place] [facility] [address] [facility] [id number], [place] [address]- 1820 Jun, [facility] [place] [facility] [address] [facility] [id number], [place] [address]- 7831 Jun, [facility] [place] [facility] [address] [id number] [place] [address]- 5643 Jun, [facility] [place] [facility] [address] [facility] [id number] [place] [address]- 4024 Jun, [facility] [place] [facility] [address] [facility] [id number] [place] [address]- 3376 Jun, [facility] [place] [facility] [address] [id number] [place] [address]- 0950 18 Jun, 2013 [facility] [place] [facility] [address] [id number] [place] 9475 18 Jun, 2013 [facility] [place] [facility] [address] [id number] [place] [address]- 6258 Jun, [facility] [place] [facility] [address] [id number] [place] [address]- 1369 Jun, [facility] [place] [facility] [address] [id number] [place] [address]- 4330 May, [facility] [place] [facility] [address] [id number] [place] [address]- 7369 May, [facility] [place] [facility] [address] [id number] [place] [address]- 6066 May, [facility] [place] [facility] [address] [id number] [place] [address]- 8128 May, [facility] [place] [facility] [address] [id number] [place] [address]- 0922 16 May, 2013 [facility] [place] [facility] [address] [id number] [place] [address]- 5973 May, [facility] [place] [facility] [address] [id number] [place] [address]- 0644 May, [facility] [place] [facility] [address] [id number] [place] [address]- 3280 11 May, 2013 [facility] [place] [facility] [address] [id number] [place] [address]- 4127 May, [facility] [place] [facility] [address] [id number] [place] [address]- 1986 26 Apr, 2013 [facility] [place] [facility] [address] [id number] [place] [address]- 4506 16 Apr, 2013 [facility] [place] [facility] [address] [id number] [place] [address]- 5113 Apr, [facility] [place] [facility] [address] [id number] [place] [address]- 5196 Apr, [facility] [place] [facility] [address] [id number] [place] [address]- 3198 Mar, [facility] [place] [facility] [address] [id number] [place] [address]- 0447 Mar, [facility] [place] [facility] [address] [id number] [place] [address]- 1106 Mar, [facility] [place] [facility] [address] [id number] [place] [address]- 7690 Mar, [facility] [place] [facility] [address] [id number] [place] [address]- 9764 Mar, [facility] [place] [facility] [address] [id number] [place] [address]- 7125 Mar, [facility] [place] [facility] [address] [id number] [place] [address]- 7305 Mar, [facility] [place] [facility] [address] [id number] [place] [address]- 1208 Feb, [facility] [place] [facility] [address] [id number] [place] [address]- 7311 Feb, [facility] [place] [facility] [address] [id number] [place] [address]- 8782 Feb, [facility] [place] [facility] [address] [id number] [place] [address]- 3628 Feb, [facility] [place] [facility] [address] [id number] [place] [address]- 3068 Feb, [facility] [place] [facility] [address] [id number] [place] [address]- 6721 Feb, [facility] [place] [facility] [address] [id number] [place] [address]- 0307 Feb, [facility] [place] [facility] [address] [id number] [place] [address]- 0286 Feb, [facility] [address] [id number] [place] [address]- 9101 Feb, [facility] [address] [id number] [place] [address]- 7416 Feb, [facility] [address] [id number] [place] [address]- 9016 Feb, [facility] [address] [id number] [place] [address]- 0061 Jan, [facility] [address] [id number] [place] [address]- 8774 Jan, [facility] [address] [id number] [place] [address]- 8363 December, [facility] [address] [id number] [place] [address]- 9194 December, [facility] [address] [id number] [place] [address]- 3525 Nov, [facility] [address] [id number] [place] [address]- 1957 Nov, [facility] [address] [id number] [place] [address]- 3673 Oct, [facility] [address] [id number] [place] [address]- 4881 Oct, [facility] [place] [facility] [address] [id number] [place] [address]- 5612 Oct, [facility] [place] [facility] [address] [id number] [place] [address]- 0250 Oct, [facility] [place] [facility] [address] [id number] [place] [address]- 6403 Sep, [facility] [place] [facility] [address] [id number] [place] [address]- 1405 Sep, [facility] [place] [facility] [address] [id number] [place] [address]- 0258 Sep, [facility] [place] [facility] [address] [id number] [place] [address]- 0142 Sep, [facility] [place] [facility] [address] [id number] [place] [address]- 5867 Aug, [facility] [place] [facility] [address] [id number] [place] [address]- 9642 Aug, [facility] [place] [facility] [address] [id number] [place] [address]- 2379 Jul, [facility] [place] [facility] [address] [id number] [place] [address]- 8643 Jul, [facility] [place] [facility] [address] [id number] [place] [address] Jul, [facility] [place] [facility] [address] [id number] [place] [address] Jul, [facility] [place] [facility] [address] [id number] [place] [address] Jul, [facility] [place] [facility] [address] [id number] [place] [address] Jul, [facility] [place] [facility] [address] [id number] [place] [address] Jun, [facility] [place] [facility] [address] [id number], [place] [address] Jun, [facility] [place] [facility] [address] [id number] [place] [address] Jun, [facility] [place] [facility] [address] [id number] [place] [address] Jun, [facility] [place] [facility] [address] [id number], [place] [address] Jun, [facility] [place] [facility] [address] [id number], [place] [address] May, [facility] [place] [facility] [address] [id number] [place] [address] May, [facility] [place] [facility] [address] [id number] [place] [address] May, [facility] [place] [facility] [address] [id number] [place] [address] May, [facility] [place] [facility] [address] [id number] [place] [address] May, [facility] [place] [facility] [address] [id number] [place] [address] May, [facility] [place] [facility] [address] [id number] [place] [address] May, [facility] [place] [facility] [address] [facility] [id number] [place] [address] May, [facility] [place] [facility] [address] [id number] [place] [address] Mar, [facility] [place] [facility] [address] [id number] [place] [address] Mar, [facility] [place] [facility] [address] [facility] [id number] [place] [address] Mar, [facility] [place] [facility] [address] [id number] [place] [address] Feb, [facility] [place] [facility] [address] [id number] [place] [address] Feb, [facility] [place] [facility] [address] [id number] [place] [address] Feb, [facility] [place] [facility] [address] [facility] [id number] [place] [address] Feb, [facility] [place] [facility] [address] [facility] [id number] [place] [address] Jan, [facility] [place] [facility] [address] [id number] [place] [address] Jan, [facility] [place] [facility] [address] [id number] [place] [address] Jan, [facility] [place] [facility] [address] [id number] [place] [address] December, [facility] [place] [facility] [address] [id number] [place] [address] Nov, [facility] [place] [facility] [address] [id number] [place] [address] Oct, [facility] [place] [facility] [address] [id number] [place] [address] Oct, [facility] [place] [facility] [address] [id number] [place] [address] Oct, [facility] [place] [facility] [address] [id number] [place] [address] Oct, [facility] [place] [facility] [address] [id number] [place] [address] Aug, [facility] [place] [facility] [address] [id number] [place] [address] Aug, [facility] [place] [facility] [address] [id number] [place] [address] Aug, [facility] [place] [facility] [address] [id number] [place] [address] Aug, [facility] [place] [facility] [address] [id number] [place] [address] Aug, [facility] [place] [facility] [address] [id number] [place] [address] Aug, [facility] [place] [facility] [address] [id number] [place] [address] Aug, [facility] [place] [facility] [address] [id number] [place] [address] Aug, [facility] [address] [id number] [place] [address] 08 Jul, 2011 [facility] [place] [facility] [address] [id number] [place] [address] 29 Jun, 2011 [facility] [place] [facility] [address] [id number] [place] [address] 29 Jun, 2011 [facility] [place] [facility] [address] [id number] [place] [address] 31 Jul, 2010 [facility] [place] [facility] [address] [id number] [place] [address] Jul, [facility] [place] [facility] [address] [id number] [place] [address] Jul, [facility] [place] [facility] [address] [id number] [place] [address] 14 Jul, 2010 [facility] [place] [facility] [address] [id number] [place] [address] 14 Jul, 2010 [facility] [place] [facility] [address] [id number] [place] [address] 24 Jun, 2010 [facility] [place] [facility] [address] [id number] [place] [address] May, [facility] [place] [facility] [address] [id number], [place] [address] Mar, [facility] [place] [facility] [address] [id number], [place] [address] Oct, [facility] [place] [facility] [address] [id number] [place] [address] Aug, [facility] [place] [facility] [address] [id number] [place] [address] 15 Jul, 2009 [facility] [place] [facility] [address] [id number] [place] [address] Jul, [facility] [place] [facility] [address] [facility] [id number] [place] [address] Jun, [facility] [address] [id number], [place] [address] Jun, [facility] [address] [id number], [place] [address] May, [facility] [address] [id number], [place] [address] May, [facility] [address] [id number], [place] [address] Mar, [facility] [id number], [place] [address] Mar, [facility] [address] [id number], [place] [address] Oct, IMMUNIZATIONS No Known Immunizations SOCIAL HISTORY Never Assessed REASON FOR VISIT referral PLAN OF CARE VITAL SIGNS MEDICATIONS Unknown [...] disc replacement L1- L5 - Dr Muhammad ([place]) Surgical History appendectomy 1983 Surgical History hysterectomy 1993 Surgical History dilatation and curettage Surgical History heart cath- Dr Shaw [address] Meza bowel and intestines 2015 Hospitalization History Hospitalization for surgery only
--- OUTSIDE RECORDS SUMMARY | 2018-04-23 11:36 | XMS REPORT ---
Author Author RALU VASQUEZ [facility] Address [address] [place] [address] Care Team Providers Care Online Trader Name Role Phone JOSEVASQUEZ ZUNIGA Unavailable PROBLEMS Type Condition ICD9-CM Code LAB73-XF Code Onset Dates Condition Status SNOMED Code Problem Major depressive disorder, recurrent episode, moderate F33.1 Active 019261626 Problem PTSD (post-traumatic stress disorder) F43.10 Active 07071490 Problem Cannabis abuse F12.10 Active 95667961 Problem GERD with esophagitis K21.0 Active 168203693 Problem Spasm of muscle 728.85 Active 29215045 Problem Cocaine use disorder, moderate, in sustained remission F14.21 Active 60179933 Problem Diarrhea 787.91 Active 03594077 Problem Alcohol use disorder, mild, 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 Active 81338284 Problem Tobacco use Z72.0 Active 772185198 Problem Methamphetamine use disorder, severe, 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2 Active 890175285 Problem Insomnia 780.52 Active 048980656 Problem Generalized anxiety disorder F41.1 Active 46521112 ALLERGIES No Information ENCOUNTERS Encounter Location Date Diagnosis [facility] [id number] [address] Feb, [facility] [id number] [address] Jan, Cocaine use disorder, moderate, in sustained [...] Major depressive disorder, recurrent episode, moderate F33.1 [id number] [place] [address] 88237- 7555 Jan, Dysuria R30.0 and GERD with esophagitis K21.0 [id number] [place] [address] 93060- 9470 December, Major depressive disorder, recurrent episode, moderate F33.1 [id number] [place] [address] 75079- 1781 December, [place] [address] [id number] [place] [address] 13187- 7663 December, Major depressive disorder, recurrent episode, moderate [...] sustained remission F10.11 and Tobacco use Z72.0 [address] [id number] [place] [address] 45296- 4391 Nov, [facility] [id number] [place] [address] Nov, [facility] [id number] [place] [address] 68819- 4247 Nov, Wellness examination Z00.00 ; Encounter for immunization Z23 ; Screening for osteoporosis Z13.820 ; Screening for breast cancer Z12.31 and Left breast lump N63.20 [facility] [id number] [id number] Oct, Dental examination Z01.20 [facility] [id number] [place] [address] 74979- 8511 Oct, [facility] [id number] [place] [address] 72869- 4799 Oct, [facility] [id number] [place] [address] 98880- 5064 16 Sep, 2017 [facility] [id number] [place] [address] 51226- 3459 Sep, [facility] [id number] [place] [address] 39506- 1159 14 Sep, 2017 Left otitis media with effusion H65.92 ; Acute suppurative otitis media of right ear without spontaneous rupture of tympanic membrane, recurrence not specified H66.001 ; Dizziness R42 and Fatigue 780.79 [facility] [id number] [place] [address] 31576- 0442 Aug, Major depressive disorder, recurrent episode, moderate [...] sustained remission F10.11 and Tobacco use Z72.0 [facility] [id number] [place] [address] 61692 -1467 Aug, Ingrown right big toenail L60.0 [facility] [address] [place] [address] 28805- 5530 Aug, [facility] [id number] [place] [address] 59272- 1188 Aug, PTSD (post-traumatic stress disorder) F43.10 [facility] [id number] [address] Aug, Major depressive disorder, recurrent episode, moderate F33.1 ; Generalized anxiety disorder F41.1 and Cannabis abuse F12.10 [facility] [address] [address] 7[address] Jul, [facility] [id number] [place] [address] 46781- 7428 Jul, [facility] [address] [place] [address] 25521- 0265 Jul, [facility] [id number] [place] [address] 79603- 5365 Jul, Major depressive disorder, recurrent episode, moderate F33.1 ; Generalized anxiety disorder F41.1 and Cannabis abuse F12.10 [facility] [id number] [place] [address] 88197- 6397 Jul, [facility] [address] [place] [address] 76981- 0208 Jul, [place] [address] [place] [address] 67894- 1379 Jul, Hyperlipidemia 272.4 [facility] [address] [place] [address] 13214- 3685 Jul, PTSD (post-traumatic stress disorder) F43.10 [facility] [address] [address] 5065 14 Jul, 2017 Tobacco use Z72.0 ; [...] anxiety disorder F41.1 and Cannabis abuse F12.10 [facility] [address] [address] 6[address] Jul, [facility] [id number] [place] [address] 81164- 8796 Jul, Dysuria R30.0 and Mixed hyperlipidemia E78.2 [facility] [address] [place] [address] 49763- 0406 Jun, Major depressive disorder, recurrent episode, moderate F33.1 ; Generalized anxiety disorder F41.1 and Cannabis abuse F12.10 [facility] [address] [place] [address] 02974- 7271 Jun, [facility] [id number] [place] [address] 39706- 4584 Jun, Generalized anxiety disorder F41.1 ; Major depressive disorder, recurrent episode, moderate F33.1 ; PTSD (post-traumatic stress disorder) F43.10 ; Opioid use disorder, moderate, in sustained remission F11.21 ; Cannabis abuse F12.10 ; Alcohol use disorder, mild, 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 ; Methamphetamine use disorder, severe, 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 ; Cocaine use disorder, moderate, in sustained remission F14.21 and Tobacco use Z72.0 [facility] [address] [address] 9111 Jun, Major depressive disorder, recurrent episode, moderate F33.1 ; Generalized anxiety disorder F41.1 and Cannabis abuse F12.10 [facility] [address] [address]- 2836 Jun, [facility] [address] [place] [address] 26305- 1255 Jun, [facility] [address] [place] [address] 25198- 4210 Jun, Major depressive disorder, recurrent episode, moderate F33.1 ; Generalized anxiety disorder F41.1 and Cannabis abuse F12.10 [facility] [address] [address] Mar, Dental examination Z01.20 [facility] [address] [address] Feb, Dental examination Z01.20 [facility] [address] [address]- 5257 Mar, [facility] [id number] [place] [address] 12702- 5427 Mar, [facility] [id number] [place] [address] 04971- 0688 Feb, Hyperlipidemia 272.4 and Prediabetes 790.29 [facility] [id number] [place] [address] 59928- 8578 Feb, Fatigue 780.79 and Hyperlipidemia 272.4 [facility] [id number] [place] [address] 02132- 2426 Feb, Lumbago 724.2 ; Hyperlipidemia 272.4 ; Insomnia 780.52 and Fatigue 780.79 [facility] [address] [address]- 1309 Nov, [facility] [address] [place] [address] 50511- 7365 Nov, [facility] [address] [address]- 4310 Mar, [facility] [address] [address]- 7717 Mar, [facility] [address] [address]- 1649 Jan, [facility] [id number] [place] [address] 24195- 9717 Jan, [facility] [id number], [place] [address]- 4544 December, [facility] [id number] [place] [address], [place] [address]- 0977 December, [facility] [place] [facility] [address] [id number] [place] [address]- 1086 30 Nov, 2013 [facility] [place] [facility] [address] [id number] [place] [address]- 9141 30 Nov, 2013 [facility] [place] [facility] [address] [id number] [place] [address]- 8536 Nov, [facility] [place] [facility] [address] [id number] [place] [address]- 5930 Nov, [facility] [place] [facility] [address] [id number] [place] [address]- 9701 Nov, [facility] [place] [facility] [address] [id number] [place] [address]- 2231 Nov, [facility] [place] [facility] [address] [id number] [place] [address]- 1710 Oct, [facility] [place] [facility] [address] [id number] [place] [address]- 0358 31 Oct, 2013 [facility] [place] [facility] [address] [id number] [place] [address]- 9450 Oct, [facility] [place] [facility] [address] [id number] [place] [address]- 3487 20 Oct, 2013 [facility] [place] [facility] [address] [id number] [place] [address]- 4746 19 Oct, 2013 [facility] [place] [facility] [address] [id number] [place] [address]- 9260 19 Oct, 2013 [facility] [place] [facility] [address] [id number] [place] [address]- 4165 12 Oct, 2013 [facility] [place] [facility] [address] [id number] [place] [address]- 6000 12 Oct, 2013 [facility] [place] [facility] [address] [id number] [place] 4529 11 Oct, 2013 [facility] [place] [facility] [address] [id number] [place] [address]- 6963 Oct, [facility] [place] [facility] [address] [id number] [place] [address]- 3288 Oct, [facility] [place] [facility] [address] [id number] [place] [address]- 3568 Oct, [facility] [place] [facility] [address] [id number] [place] [address]- 2499 Oct, [facility] [place] [facility] [address] [id number] [place] [address]- 9274 Sep, [facility] [place] [facility] [address] [id number] [place] [address]- 3043 24 Sep, 2013 [facility] [place] [facility] [address] [id number] [place] [address]- 9129 Sep, [facility] [place] [facility] [address] [id number] [place] [address]- 3396 Sep, [facility] [place] [facility] [address] [id number] [place] [address]- 7058 Sep, [facility] [place] [facility] [address] [id number] [place] [address]- 1534 Sep, [facility] [place] [facility] [address] [id number] [place] [address]- 0279 18 Sep, 2013 [facility] [place] [facility] [address] [id number] [place] [address]- 9623 18 Sep, 2013 [facility] [place] [facility] [address] [id number] [place] [address]- 7956 14 Sep, 2013 [facility] [place] [facility] [address] [id number] [place] [address]- 8340 14 Sep, 2013 [facility] [place] [facility] [address] [id number] [place] [address]- 5568 Sep, [facility] [place] [facility] [address] [id number] [place] [address]- 5002 14 Sep, 2013 [facility] [place] [facility] [address] [id number] [place] [address]- 7867 14 Sep, 2013 [facility] [place] [facility] [address] [id number] [place] [address]- 2186 14 Sep, 2013 [facility] [place] [facility] [address] [id number] [place] [address]- 3611 Sep, [facility] [place] [facility] [address] [id number] [place] [address]- 3108 Sep, [facility] [place] [facility] [address] [id number] [place] [address]- 3605 Sep, [facility] [place] [facility] [address] [id number] [place] [address]- 1712 Sep, [facility] [place] [facility] [address] [id number] [place] [address]- 1288 Sep, [facility] [place] [facility] [address] [id number] [place] [address]- 0336 Sep, [facility] [place] [facility] [address] [facility] [id number] [place] [address]- 4495 Aug, [facility] [place] [facility] [address] [id number] [place] [address]- 6473 Aug, [facility] [place] [facility] [address] [id number] [place] [address]- 8603 Aug, [facility] [place] [facility] [address] [id number] [place] [address]- 9338 Aug, [facility] [place] [facility] [address] [id number] [place] [address]- 9297 Aug, [facility] [place] [facility] [address] [id number] [place] [address]- 8128 Jul, [facility] [place] [facility] [address] [id number] [place] [address]- 8609 Jul, [facility] [place] [facility] [address] [id number] [place] [address]- 9223 Jul, [facility] [place] [facility] [address] [id number] [place] 8111 Jul, [facility] [place] [facility] [address] [facility] [id number] [place] [address]- 8994 Jul, [facility] [place] [facility] [address] [id number] [place] [address]- 0481 Jul, [facility] [place] [facility] [address] [id number] [place] 0706 Jul, [facility] [place] [facility] [address] [facility] [id number] [place] [address]- 5468 Jul, [facility] [place] [facility] [address] [facility] [id number] [place] [address]- 8506 Jul, [facility] [place] [facility] [address] [id number] [address]- 8929 Jun, [facility] [place] [facility] [address] [id number] [address]- 6815 Jun, [facility] [place] [facility] [address] [id number] [address]- 3893 Jun, [facility] [place] [facility] [address] [id number] [address]- 3425 Jun, [facility] [place] [facility] [address] [id number] [address]- 4073 Jun, [facility] [place] [facility] [address] [id number] [address]- 2098 Jun, [facility] [place] [facility] [address] [facility] [id number] [address]- 8831 Jun, [facility] [place] [facility] [address] [facility] [id number] [address]- 8172 Jun, [facility] [place] [facility] [address] [id number] [place] [address]- 9510 Jun, [facility] [address] [id number] [place] [address]- 1345 Jun, [facility] [place] [facility] [address] [id number] [place] [address]- 8131 May, [facility] [place] [facility] [address] [id number] [place] [address]- 2361 May, [facility] [place] [facility] [address] [id number] [place] [address]- 9459 May, [facility] [place] [facility] [address] [id number] [place] [address]- 5289 May, [facility] [place] [facility] [address] [id number] [place] [address]- 3418 May, [facility] [place] [facility] [address] [id number] [place] [address]- 9844 May, [facility] [place] [facility] [address] [id number] [place] [address]- 5554 May, [facility] [place] [facility] [address] [id number] [place] [address]- 9688 May, [facility] [place] [facility] [address] [id number] [place] [address]- 9614 May, [facility] [place] [facility] [address] [id number] [place] [address]- 4522 26 Apr, 2013 [facility] [place] [facility] [address] [id number] [place] [address]- 1318 16 Apr, 2013 [facility] [place] [facility] [address] [id number] [place] 2872 12 Apr, 2013 [facility] [place] [facility] [address] [id number] [place] [address]- 2544 06 Apr, 2013 [facility] [place] [facility] [address] [id number] [place] 5594 Mar, [facility] [place] [facility] [address] [id number] [place] [address]- 1420 Mar, [facility] [place] [facility] [address] [id number] [place] [address]- 4136 Mar, [facility] [place] [facility] [address] [id number] [place] [address]- 0017 Mar, [facility] [place] [facility] [address] [id number] [place] [address]- 3423 Mar, [facility] [place] [facility] [address] [id number] [place] [address]- 8195 Mar, [facility] [place] [facility] [address] [id number] [place] [address]- 4667 Mar, [facility] [place] [facility] [address] [id number] [place] [address]- 1860 Feb, [facility] [place] [facility] [address] [id number] [place] [address]- 9268 Feb, [facility] [place] [facility] [address] [id number] [place] [address]- 2229 Feb, [facility] [place] [facility] [address] [id number] [place] [address]- 5230 Feb, [facility] [place] [facility] [address] [id number] [place] [address]- 1478 Feb, [facility] [place] [facility] [address] [id number] [place] [address]- 3691 Feb, [facility] [place] [facility] [address] [id number] [place] [address]- 7262 Feb, [facility] [place] [facility] [address] [id number] [place] [address]- 7987 Feb, [facility] [place] [facility] [address] [id number] [place] 3312 Feb, [facility] [place] [facility] [address] [id number] [place] [address]- 8417 Feb, [facility] [address] [id number] [place] [address]- 2843 Feb, [facility] [address] [id number] [place] [address]- 9747 Jan, [facility] [address] [id number] [place] [address]- 2928 Jan, [facility] [address] [id number] [place] [address]- 3768 December, [facility] [address] [id number] [place] [address]- 6654 December, [facility] [address] [id number] [place] [address]- 4765 Nov, [facility] [address] [id number] [place] [address]- 3293 Nov, [facility] [address] [id number] [place] [address]- 6336 Oct, [facility] [address] [id number] [place] [address]- 4639 Oct, [facility] [address] [id number] [place] [address]- 6839 Oct, [facility] [address] [id number] [place] [address]- 8735 Oct, [facility] [place] [facility] [address] [id number] [place] [address]- 7268 Sep, [facility] [place] [facility] [address] [id number] [place] [address]- 7434 Sep, [facility] [place] [facility] [address] [id number] [place] [address]- 7743 Sep, [facility] [place] [facility] [address] [facility] [id number] [address]- 8551 Sep, [facility] [place] [facility] [address] [id number] [place] [address] Aug, [facility] [place] [facility] [address] [id number] [place] [address] Aug, [facility] [place] [facility] [address] [id number] [place] [address] Jul, [facility] [place] [facility] [address] [id number] [place] [address] Jul, [facility] [place] [facility] [address] [id number] [place] [address] Jul, [facility] [place] [facility] [address] [id number] [place] [address] Jul, [facility] [place] [facility] [address] [id number] [place] [address] Jul, [facility] [place] [facility] [address] [id number] [place] [address] Jul, [facility] [place] [facility] [address] [id number] [place] [address] Jun, [facility] [place] [facility] [address] [id number] [place] [address] Jun, [facility] [place] [facility] [address] [id number] [place] [address] Jun, [facility] [place] [facility] [address] [id number] [place] [address] Jun, [facility] [place] [facility] [address] [id number] [place] [address] Jun, [facility] [place] [facility] [address] [id number] [place] [address] May, [facility] [place] [facility] [address] [id number] [place] [address] May, [facility] [place] [facility] [address] [id number] [place] [address] May, [facility] [place] [facility] [address] [id number] [place] [address] May, [facility] [place] [facility] [address] [id number] [place] [address] May, [facility] [place] [facility] [address] [id number] [place] [address] May, [facility] [place] [facility] [address] [id number] [place] [address] May, [facility] [place] [facility] [address] [id number] [place] [address] May, [facility] [place] [facility] [address] [id number] [place] [address] Mar, [facility] [place] [facility] [address] [id number] [place] [address] Mar, [facility] [place] [facility] [address] [id number] [place] [address] Mar, [facility] [place] [facility] [address] [id number] [place] [address] Feb, [facility] [place] [facility] [address] [id number] [place] [address] Feb, [facility] [place] [facility] [address] [id number] [place] [address] Feb, [facility] [place] [facility] [address] [id number] [place] [address] Feb, [facility] [place] [facility] [address] [id number] [place] [address] Jan, [facility] [place] [facility] [address] [id number] [place] [address] Jan, [facility] [place] [facility] [address] [id number] [place] [address] Jan, [facility] [place] [facility] [address] [id number] [place] [address] December, [facility] [address] [id number] [place] [address] Nov, [facility] [address] [id number] [place] [address] Oct, [facility] [address] [id number] [place] [address] Oct, [facility] [address] [id number] [place] [address] Oct, [facility] [address] [id number] [place] [address] Oct, [facility] [address] [id number] [place] [address] Aug, [facility] [address] [id number] [place] [address] Aug, [facility] [address] [id number] [place] [address] Aug, [facility] [address] [id number] [place] [address] Aug, [facility] [address] [id number] [place] [address] Aug, [facility] [address] [id number] [place] [address] Aug, [facility] [address] [id number] [place] [address] Aug, [facility] [address] [id number] [place] [address] Aug, [facility] [address] [id number] [place] [address] Jul, [facility] [address] [id number] [place] [address] Jun, [facility] [address] [id number] [place] [address] 29 Jun, 2011 [facility] [place] [facility] [address] [id number] [place] [address] 31 Jul, 2010 [facility] [place] [facility] [address] [id number] [place] [address] 22 Jul, 2010 [facility] [place] [facility] [address] [id number] [place] [address] Jul, [facility] [address] [id number] [place] [address] 14 Jul, 2010 [facility] [place] [facility] [address] [id number] [place] [address] 14 Jul, 2010 [facility] [address] [id number] [place] [address] 24 Jun, 2010 [facility] [address] [id number] [place] [address] May, [facility] [place] [facility] [address] [id number] [place] [address] Mar, [facility] [place] [facility] [address] [id number] [place] [address] Oct, [facility] [place] [facility] [address] [id number] [place] [address] Aug, [facility] [place] [facility] [address] [id number] [address] 15 Jul, 2009 [facility] [place] [facility] [address] [id number] [place] Jul, [facility] [place] [facility] [address] [id number] [place] [address] Jun, [facility] [place] [facility] [address] [id number] [place] [address] Jun, [facility] [place] [facility] [address] [id number] [address] May, [facility] [address] [facility] [id number] [address] May, [facility] [address] [facility] [id number] [address] Mar, [facility] [address] [facility] [id number] [address] Mar, [facility] [address] [facility] [id number][place] [address] Oct, IMMUNIZATIONS No Known Immunizations SOCIAL HISTORY Never Assessed REASON FOR VISIT xanax refill 08/21/2017 PLAN OF CARE VITAL SIGNS MEDICATIONS Medication Instructions Dosage Frequency Start Date End Date Duration Status Xanax 1 mg Orally three times a day 1 tablet 8h Oct, 30 days Active RESULTS No Results PROCEDURES [...] disc replacement L1- L5 - Dr Muhammad ([place]) Surgical History appendectomy 1983 Surgical History hysterectomy 1993 Surgical History dilatation and curettage Surgical History heart cath- Dr Shaw [address] Meza bowel and intestines 2015 Hospitalization History Hospitalization for surgery only
--- OUTSIDE RECORDS SUMMARY | 2018-04-23 11:37 | XMS REPORT ---
Author Author RAUL VASQUEZ [facility] Address [address] [place] [address] Care Team Providers Care Boilermaker Name Role Phone JOSEVASQUEZ ZUNIGA Unavailable PROBLEMS Type Condition ICD9-CM Code [id number] Code Onset Dates Condition Status SNOMED Code Problem Major depressive disorder, recurrent episode, moderate F33.1 Active 124089275 Problem PTSD (post-traumatic stress disorder) F43.10 Active 74470193 Problem Cannabis abuse F12.10 Active 92193523 Problem GERD with esophagitis K21.0 Active 986558071 Problem Spasm of muscle 728.85 Active 66655321 Problem Cocaine use disorder, moderate, in sustained remission F14.21 Active 23758227 Problem Diarrhea 787.91 Active 23381185 Problem Alcohol use disorder, mild, 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 Active 13890050 Problem Tobacco use Z72.0 Active 028750630 Problem Methamphetamine use disorder, severe, 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2 Active 719664015 Problem Insomnia 780.52 Active 393411651 Problem Generalized anxiety disorder F41.1 Active 36423514 ALLERGIES No Information ENCOUNTERS Encounter Location Date Diagnosis [facility] [id number] [address] Feb, [facility] [address] [address] Jan, Cocaine use disorder, moderate, in sustained [...] Major depressive disorder, recurrent episode, moderate F33.1 [place] [id number] [place] [address] 2651 Jan, Dysuria R30.0 and GERD with esophagitis K21.0 [place] [id number] [place] [address] 20371- 3728 December, Major depressive disorder, recurrent episode, moderate F33.1 [place] [id number] [place] [address] 95535- 9799 December, [place] [id number] [place] [address] 80586- 8854 December, Major depressive disorder, recurrent episode, moderate [...] sustained remission F10.11 and Tobacco use Z72.0 [place] [id number] [place] [address] 61613- 9768 Nov, [facility] [id number] [place] [address] Nov, [facility] [id number] [place] [address]00- 7573 Nov, Wellness examination Z00.00 ; Encounter for immunization Z23 ; Screening for osteoporosis Z13.820 ; Screening for breast cancer Z12.31 and Left breast lump N63.20 [facility] [id number] [address] Oct, Dental examination Z01.20 [facility] [id number] [place] [address] 85418- 4337 Oct, [facility] [id number] [place] [address] 45507- 1021 Oct, [facility] [id number] [place] [address] 01461- 4441 16 Sep, 2017 [facility] [id number] [place] [address] 12773- 6817 Sep, [facility] [id number] [place] [address] 76593- 0608 14 Sep, 2017 Left otitis media with effusion H65.92 ; Acute suppurative otitis media of right ear without spontaneous rupture of tympanic membrane, recurrence not specified H66.001 ; Dizziness R42 and Fatigue 780.79 [facility] [id number] [place] [address] 56589- 0622 Aug, Major depressive disorder, recurrent episode, moderate [...] sustained remission F10.11 and Tobacco use Z72.0 [facility] [id number] [place] [address]53 [address]7297 Aug, Ingrown right big toenail L60.0 [facility] [id number] [place] [address] 78313- 1846 Aug, [facility] [id number] [place] [address] 51196- 7552 Aug, PTSD (post-traumatic stress disorder) F43.10 [facility] [address] [address] Aug, Major depressive disorder, recurrent episode, moderate F33.1 ; Generalized anxiety disorder F41.1 and Cannabis abuse F12.10 [facility] [address] [address] Jul, [facility] [id number] [place] [address] 50082- 2022 Jul, [facility] [id number] [place] [address] 60878- 0573 Jul, [facility] [id number] [place] [address] 44188- 6944 Jul, Major depressive disorder, recurrent episode, moderate F33.1 ; Generalized anxiety disorder F41.1 and Cannabis abuse F12.10 [facility] [id number] [place] [address] 17138- 0883 Jul, [facility] [id number] [place] [address] 42463- 5136 Jul, [place] [id number] [place] [address] 39187- 8133 Jul, Hyperlipidemia 272.4 [facility] [id number] [place] [address] 23649- 8681 Jul, PTSD (post-traumatic stress disorder) F43.10 [facility] [address] [address] 39[address] 14 Jul, 2017 Tobacco use Z72.0 ; [...] anxiety disorder F41.1 and Cannabis abuse F12.10 [facility] [address] [address] 0[address] Jul, [facility] [id number] [place] [address] 02301- 1036 Jul, Dysuria R30.0 and Mixed hyperlipidemia E78.2 [facility] [id number] [place] [address] 38262- 0181 Jun, Major depressive disorder, recurrent episode, moderate F33.1 ; Generalized anxiety disorder F41.1 and Cannabis abuse F12.10 [facility] [id number] [place] [address] 11556- 6570 Jun, [facility] [id number] [place] [address] 95743- 4087 Jun, Generalized anxiety disorder F41.1 ; Major depressive disorder, recurrent episode, moderate F33.1 ; PTSD (post-traumatic stress disorder) F43.10 ; Opioid use disorder, moderate, in sustained remission F11.21 ; Cannabis abuse F12.10 ; Alcohol use disorder, mild, 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 ; Methamphetamine use disorder, severe, 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 ; Cocaine use disorder, moderate, in sustained remission F14.21 and Tobacco use Z72.0 [facility] [address] [address] 9[address] Jun, Major depressive disorder, recurrent episode, moderate F33.1 ; Generalized anxiety disorder F41.1 and Cannabis abuse F12.10 [facility] [address] [address]- 2067 Jun, [facility] [id number] [place] [address] 23855- 5488 Jun, [facility] [id number] [place] [address] 38260- 9008 Jun, Major depressive disorder, recurrent episode, moderate F33.1 ; Generalized anxiety disorder F41.1 and Cannabis abuse F12.10 [facility] [address] [id number] Mar, Dental examination Z01.20 [facility] [address] [id number] Feb, Dental examination Z01.20 [facility] [address] [address] 5209 Mar, [facility] [id number] [place] [address] 19434- 9328 Mar, [facility] [id number] [place] [address] 20908- 3908 Feb, Hyperlipidemia 272.4 and Prediabetes 790.29 [facility] [id number] [place] [address] 87027- 2684 Feb, Fatigue 780.79 and Hyperlipidemia 272.4 [facility] [id number] [place] [address] 96472- 5810 Feb, Lumbago 724.2 ; Hyperlipidemia 272.4 ; Insomnia 780.52 and Fatigue 780.79 [facility] [address] [address]- 5111 Nov, [facility] [id number] [place] [address] 98644- 7270 Nov, [facility] [address] [address]- 2044 Mar, [facility] [address] [address]- 3853 Mar, [facility] [address] [address]- 8533 Jan, [facility] [id number] [place] [address] 43131- 1304 Jan, [facility] [address] [address]- 7961 December, [facility] [address] [id number] [place] [address], [place] [address]- 6966 December, [facility] [place] [facility] [address] [id number] [place] [address]- 7966 30 Nov, 2013 [facility] [place] [facility] [address] [id number] [place] [address]- 9390 30 Nov, 2013 [facility] [place] [facility] [address] [id number] [place] [address]- 8079 Nov, [facility] [place] [facility] [address] [id number] [place] [address]- 2040 Nov, [facility] [place] [facility] [address] [id number] [place] [address]- 3109 Nov, [facility] [place] [facility] [address] [id number] [place] [address]- 4037 Nov, [facility] [place] [facility] [address] [id number] [place] [address]- 3439 Oct, [facility] [place] [facility] [address] [id number] [place] [address]- 7619 31 Oct, 2013 [facility] [place] [facility] [address] [id number] [place] [address]- 3478 Oct, [facility] [place] [facility] [address] [id number] [place] [address]- 3282 20 Oct, 2013 [facility] [place] [facility] [address] [id number] [place] [address]- 6339 19 Oct, 2013 [facility] [place] [facility] [address] [id number] [place] [address]- 8084 19 Oct, 2013 [facility] [place] [facility] [address] [id number] [place] [address]- 1953 12 Oct, 2013 [facility] [place] [facility] [address] [id number] [place] [address]- 8719 12 Oct, 2013 [facility] [place] [facility] [address] [id number] [place] 0692 11 Oct, 2013 [facility] [place] [facility] [address] [id number] [place] [address]- 3745 Oct, [facility] [place] [facility] [address] [id number] [place] [address]- 9718 Oct, [facility] [place] [facility] [address] [id number] [place] [address]- 9272 Oct, [facility] [place] [facility] [address] [id number] [place] [address]- 6764 Oct, [facility] [place] [facility] [address] [id number] [place] [address]- 2508 Sep, [facility] [place] [facility] [address] [id number] [place] [address]- 9932 24 Sep, 2013 [facility] [place] [facility] [address] [id number] [place] [address]- 9040 Sep, [facility] [place] [facility] [address] [id number] [place] [address]- 6906 Sep, [facility] [place] [facility] [address] [id number] [place] [address]- 6043 Sep, [facility] [place] [facility] [address] [id number] [place] [address]- 2592 Sep, [facility] [place] [facility] [address] [id number] [place] [address]- 8006 18 Sep, 2013 [facility] [place] [facility] [address] [id number] [place] [address]- 1547 18 Sep, 2013 [facility] [place] [facility] [address] [id number] [place] [address]- 8742 14 Sep, 2013 [facility] [place] [facility] [address] [id number] [place] [address]- 8881 14 Sep, 2013 [facility] [place] [facility] [address] [id number] [place] [address]- 4030 Sep, [facility] [place] [facility] [address] [id number] [place] [address]- 6537 14 Sep, 2013 [facility] [place] [facility] [address] [id number] [place] [address]- 8688 14 Sep, 2013 [facility] [place] [facility] [address] [id number] [place] [address]- 4136 14 Sep, 2013 [facility] [place] [facility] [address] [id number] [place] [address]- 6443 Sep, [facility] [place] [facility] [address] [id number] [place] [address]- 2312 Sep, [facility] [place] [facility] [address] [id number] [place] [address]- 8569 Sep, [facility] [place] [facility] [address] [id number] [place] [address]- 4670 Sep, [facility] [place] [facility] [address] [id number] [place] [address]- 1407 Sep, [facility] [place] [facility] [address] [id number] [place] [address]- 4425 Sep, [facility] [place] [facility] [address] [facility] [id number] [place] [address]- 6653 Aug, [facility] [place] [facility] [address] [id number] [place] [address]- 2788 Aug, [facility] [place] [facility] [address] [id number] [place] [address]- 3761 Aug, [facility] [place] [facility] [address] [id number] [place] [address]- 3466 Aug, [facility] [place] [facility] [address] [id number] [place] [address]- 6712 Aug, [facility] [place] [facility] [address] [id number] [place] [address]- 6797 Jul, [facility] [place] [facility] [address] [id number] [place] [address]- 6245 Jul, [facility] [place] [facility] [address] [id number] [place] [address]- 4585 Jul, [facility] [place] [facility] [address] [id number] [place] 9822 Jul, [facility] [place] [facility] [address] [facility] [id number] [place] [address]- 1548 Jul, [facility] [place] [facility] [address] [id number] [place] [address]- 0629 Jul, [facility] [place] [facility] [address] [id number] [place] 2906 Jul, [facility] [place] [facility] [address] [facility] [id number] [place] [address]- 5588 Jul, [facility] [place] [facility] [address] [facility] [id number] [place] [address]- 2809 Jul, [facility] [place] [facility] [address] [id number] [address]- 0784 Jun, [facility] [place] [facility] [address] [id number] [place] [address]- 1278 Jun, [facility] [place] [facility] [address] [id number] [place] [address]- 5430 Jun, [facility] [place] [facility] [address] [id number] [place] [address]- 1532 Jun, [facility] [place] [facility] [address] [id number] [place] [address]- 4427 Jun, [facility] [place] [facility] [address] [id number] [place] [address]- 2678 Jun, [facility] [place] [facility] [address] [facility] [id number] [place] [address]- 3370 Jun, [facility] [place] [facility] [address] [facility] [id number] [place] [address]- 5733 Jun, [facility] [place] [facility] [address] [id number] [place] [address]- 4912 Jun, [facility] [address] [id number] [place] [address]- 7409 Jun, [facility] [place] [facility] [address] [id number] [place] [address]- 9253 May, [facility] [place] [facility] [address] [id number] [place] [address]- 3321 May, [facility] [place] [facility] [address] [id number] [place] [address]- 7830 May, [facility] [place] [facility] [address] [id number] [place] [address]- 0342 May, [facility] [place] [facility] [address] [id number] [place] [address]- 0995 May, [facility] [place] [facility] [address] [id number] [place] [address]- 7636 May, [facility] [place] [facility] [address] [id number] [place] [address]- 8345 May, [facility] [place] [facility] [address] [id number] [place] [address]- 4501 May, [facility] [place] [facility] [address] [id number] [place] [address]- 1044 May, [facility] [place] [facility] [address] [id number] [place] [address]- 5063 26 Apr, 2013 [facility] [place] [facility] [address] [id number] [place] [address]- 7520 16 Apr, 2013 [facility] [place] [facility] [address] [id number] [place] 1390 12 Apr, 2013 [facility] [place] [facility] [address] [id number] [place] [address]- 2548 06 Apr, 2013 [facility] [place] [facility] [address] [id number] [place] 6123 Mar, [facility] [place] [facility] [address] [id number] [place] [address]- 3608 Mar, [facility] [place] [facility] [address] [id number] [place] [address]- 2950 Mar, [facility] [place] [facility] [address] [id number] [place] [address]- 4793 Mar, [facility] [place] [facility] [address] [id number] [place] [address]- 7295 Mar, [facility] [place] [facility] [address] [id number] [place] [address]- 4282 Mar, [facility] [place] [facility] [address] [id number] [place] [address]- 1309 Mar, [facility] [place] [facility] [address] [id number] [place] [address]- 9618 Feb, [facility] [place] [facility] [address] [id number] [place] [address]- 5025 Feb, [facility] [place] [facility] [address] [id number] [place] [address]- 2607 Feb, [facility] [place] [facility] [address] [id number] [place] [address]- 9357 Feb, [facility] [place] [facility] [address] [id number] [place] [address]- 8102 Feb, [facility] [place] [facility] [address] [id number] [place] [address]- 0960 Feb, [facility] [place] [facility] [address] [id number] [place] [address]- 1809 Feb, [facility] [place] [facility] [address] [id number] [place] [address]- 1811 Feb, [facility] [place] [facility] [address] [id number] [place] 9540 Feb, [facility] [place] [facility] [address] [id number] [place] [address]- 2857 Feb, [facility] [address] [id number] [place] [address]- 4379 Feb, [facility] [address] [id number] [place] [address]- 8549 Jan, [facility] [address] [id number] [place] [address]- 1716 Jan, [facility] [address] [id number] [place] [address]- 8062 December, [facility] [address] [id number] [place] [address]- 8093 December, [facility] [address] [id number] [place] [address]- 7187 Nov, [facility] [address] [id number] [place] [address]- 1709 Nov, [facility] [address] [id number] [place] [address]- 2545 Oct, [facility] [address] [id number] [place] [address]- 7051 Oct, [facility] [address] [id number] [place] [address]- 7504 Oct, [facility] [address] [id number] [place] [address]- 4656 Oct, [facility] [place] [facility] [address] [id number] [place] [address]- 3777 Sep, [facility] [place] [facility] [address] [id number] [place] [address]- 4829 Sep, [facility] [place] [facility] [address] [id number] [place] [address]- 2430 Sep, [facility] [place] [facility] [address] [facility] [id number] [address]- 3753 Sep, [facility] [place] [facility] [address] [id number] [place] [address]- 8401 Aug, [facility] [place] [facility] [address] [id number] [place] [address]- 7989 Aug, [facility] [place] [facility] [address] [id number] [place] [address]- 3676 Jul, [facility] [place] [facility] [address] [id number] [place] [address]- 5897 Jul, [facility] [place] [facility] [address] [id number] [place] [address]- 6333 Jul, [facility] [place] [facility] [address] [id number] [place] [address]- 9620 Jul, [facility] [place] [facility] [address] [id number] [place] [address]- 1470 Jul, [facility] [place] [facility] [address] [id number] [place] [address] Jul, [facility] [place] [facility] [address] [id number] [place] [address] Jun, [facility] [place] [facility] [address] [id number] [place] [address] Jun, [facility] [place] [facility] [address] [id number] [place] [address] Jun, [facility] [place] [facility] [address] [id number] [place] [address] Jun, [facility] [place] [facility] [address] [id number] [place] [address] Jun, [facility] [place] [facility] [address] [id number] [place] [address] May, [facility] [place] [facility] [address] [id number] [place] [address] May, [facility] [place] [facility] [address] [id number] [place] [address] May, [facility] [place] [facility] [address] [id number] [place] [address] May, [facility] [place] [facility] [address] [id number] [place] [address] May, [facility] [place] [facility] [address] [id number] [place] [address] May, [facility] [place] [facility] [address] [id number] [place] [address] May, [facility] [place] [facility] [address] [id number] [place] [address] May, [facility] [place] [facility] [address] [id number] [place] [address] Mar, [facility] [place] [facility] [address] [id number] [place] [address] Mar, [facility] [place] [facility] [address] [id number] [place] [address] Mar, [facility] [place] [facility] [address] [id number] [place] [address] Feb, [facility] [place] [facility] [address] [id number] [place] [address] Feb, [facility] [place] [facility] [address] [id number] [place] [address] Feb, [facility] [place] [facility] [address] [id number] [place] [address] Feb, [facility] [place] [facility] [address] [id number] [place] [address] Jan, [facility] [place] [facility] [address] [id number] [place] [address] Jan, [facility] [place] [facility] [address] [id number] [place] [address] Jan, [facility] [place] [facility] [address] [id number] [place] [address] December, [facility] [place] [address] [id number] [place] [address] Nov, [facility] [address] [id number] [place] [address] Oct, [facility] [address] [id number] [place] [address] Oct, [facility] [address] [id number] [place] [address] Oct, [facility] [address] [id number] [place] [address] Oct, [facility] [address] [id number] [place] [address] Aug, [facility] [address] [id number] [place] [address] Aug, [facility] [address] [id number] [place] [address] Aug, [facility] [address] [id number] [place] [address] Aug, [facility] [address] [id number] [place] [address] Aug, [facility] [address] [id number] [place] [address] Aug, [facility] [address] [id number] [place] [address] Aug, [facility] [address] [id number] [place] [address] Aug, [facility] [facility] [address] [id number] [place] [address] Jul, [facility] [address] [id number] [place] [address] Jun, [facility] [address] [id number] [place] [address] 29 Jun, 2011 [facility] [place] [facility] [address] [id number] [place] [address] 31 Jul, 2010 [facility] [place] [facility] [address] [id number] [place] 22 Jul, 2010 [facility] [place] [facility] [address] [id number] [place] [address] Jul, [facility] [address] [id number] [place] [address] 14 Jul, 2010 [facility] [place] [facility] [address] [id number] [place] [address] 14 Jul, 2010 [facility] [address] [id number] [place] [address] 24 Jun, 2010 [facility] [address] [id number] [place] [address] May, [facility] [place] [facility] [address] [id number] [place] [address] Mar, [facility] [place] [facility] [address] [id number] [place] [address] Oct, [facility] [place] [facility] [address] [id number] [place] [address] Aug, [facility] [place] [facility] [address] [id number] [place] [address] 15 Jul, 2009 [facility] [place] [facility] [address] [id number] [place] Jul, [facility] [place] [facility] [address] [id number] [place] [address] Jun, [facility] [place] [facility] [address] [id number] [place] [address] Jun, [facility] [place] [facility] [address] [id number] [place] [address] May, [facility] [address] [facility] [id number] [place] [address] May, [facility] [address] [facility] [id number] [place] [address] Mar, [facility] [address] [facility] [id number] [place] [address] Mar, [facility] [address] [facility] [id number] [place] [address] Oct, IMMUNIZATIONS No Known Immunizations SOCIAL HISTORY Never Assessed REASON FOR VISIT Requests return call PLAN OF CARE VITAL SIGNS MEDICATIONS Medication Instructions Dosage Frequency Start Date End Date Duration Status Prozac 10 MG Orally daily 1 capsule 24h Jun, 30 days Active RESULTS No Results PROCEDURES [...] disc replacement L1- L5 - Dr Muhammad ([place]) Surgical History appendectomy 1983 Surgical History hysterectomy 1993 Surgical History dilatation and curettage Surgical History heart cath- Dr Shaw [address] Meza bowel and intestines 2015 Hospitalization History Hospitalization for surgery only
--- OUTSIDE RECORDS SUMMARY | 2018-04-23 11:38 | XMS REPORT ---
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 Name Role Phone VASQUEZ CARTER Unavailable PROBLEMS Type Condition ICD9-CM Code [id number] Code Onset Dates Condition Status SNOMED Code Problem Generalized anxiety disorder F41.1 Active 03348051 Problem Cannabis abuse F12.10 Active 52754714 Problem Major depressive disorder, recurrent episode, moderate F33.1 Active 186723535 Problem Tobacco use Z72.0 Active 959158773 Problem Diarrhea 787.91 Active 19541414 Problem PTSD (post-traumatic stress disorder) F43.10 Active 01649825 Problem Opioid use disorder, moderate, in sustained remission F11.21 Active 75700704 Problem Alcohol use disorder, mild, 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 Active 36307890 Problem Cocaine use disorder, moderate, in sustained remission F14.21 Active 88309538 Problem Methamphetamine use disorder, severe, 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 Active 01984712 Problem Thoracic or lumbosacral neuritis or radiculitis, unspecified 724.4 Active 349649089 Problem Hematuria, unspecified 599.70 Active 88288748 Problem Spasm of muscle 728.85 Active 52906324 Problem Lumbago 724.2 Active 677743338 Problem Insomnia 780.52 Active 489665284 Problem Hyperlipidemia 272.4 Active 01256724 Problem Major depressive disorder, recurrent episode, severe, without mention of psychotic behavior 296.33 Active 34126049 Problem Prediabetes 790.29 Active 5775239 Problem Adjustment disorder with depressed mood 309.0 Active 38388124 Problem Mixed hyperlipidemia E78.2 Active 148902377 ALLERGIES Substance Reaction Event Type Date Status Pravastatin Sodium abd pain Drug Allergy Jun, Active Duragesic-100 vomiting- Patches only Drug Allergy Jun, Active ENCOUNTERS Encounter Location Date Diagnosis [facility] [address] [facility] [id number] [address] Jan, [facility] [address] [id number] [address] Jan, [facility] [id number] [place] [address] December, Major depressive disorder, recurrent episode, moderate F33.1 [facility] [id number] [place] [address]- [address] December, [facility] [id number] [place] [address]- [address] December, Major depressive disorder, recurrent episode, moderate [...] sustained remission F10.11 and Tobacco use Z72.0 [facility] [address] [id number] [address] Nov, [facility] [address] [place], [place] [id number] [place] [address] Nov, [facility] [address] [id number] [address] Nov, Wellness examination Z00.00 ; Encounter for immunization Z23 ; Screening for osteoporosis Z13.820 ; Screening for breast cancer Z12.31 and Left breast lump N63.20 [facility] [address] [facility] [id number] [id number] Oct, Dental examination Z01.20 [facility] [id number] [place] [address] Oct, [facility] [address] [address] Oct, [facility] [address] [id number], [place] [address] 16 Sep, 2017 [facility] [id number] [place] [address]- 48[address] 15 Sep, 2017 [facility] [id number] [place] [address]- 2612 14 Sep, 2017 Left otitis media with effusion H65.92 ; Acute suppurative otitis media of right ear without spontaneous rupture of tympanic membrane, recurrence not specified H66.001 ; Dizziness R42 and Fatigue 780.79 [facility] [id number] [place] [address]67[address] Aug, Major depressive disorder, recurrent episode, moderate [...] sustained remission F10.11 and Tobacco use Z72.[address] [facility] [id number] [place] [address] Aug, Ingrown right big toenail L60.0 [facility] [id number] [place] [address]- [address] Aug, [facility] [id number] [place] [address] 2101 Aug, PTSD (post-traumatic stress disorder) F43.10 [facility] [id number] [place] [address] 7[address]- [address]90 08 Aug, 2017 Major depressive disorder, recurrent episode, moderate F33.1 ; Generalized anxiety disorder F41.1 and Cannabis abuse F12.10 [facility] [address]00565100[place] [address] Jul, [facility] [id number] [place] [address]- 2529 Jul, [facility] [address] [address] Jul, [facility] [address] [place] [id number] Jul, Major depressive disorder, recurrent episode, moderate F33.1 ; Generalized anxiety disorder F41.1 and Cannabis abuse F12.10 [place] [id number] [place] [address]- 0929 Jul, [place] [id number] [place] [address]- [address] Jul, [place] [id number] [place] [address] 2848 Jul, Hyperlipidemia 272.4 [place] [address] [place] [address] 3[address] Jul, PTSD (post-traumatic stress disorder) F43.10 [place] [address] [address] 8[address] Jul, Tobacco use Z72.0 ; Alcohol use [...] anxiety disorder F41.1 and Cannabis abuse F12.10 [place] [address] [address] Jul, [place] [id number] [place] [address] Jul, Dysuria R30.0 and Mixed hyperlipidemia E78.2 [place] [address] [address] Jun, Major depressive disorder, recurrent episode, moderate F33.1 ; Generalized anxiety disorder F41.1 and Cannabis abuse F12.10 [facility] [address], [place] [address] Jun, [facility] [id number] [place] [address]- 9681 Jun, Generalized anxiety disorder F41.1 ; Major depressive disorder, recurrent episode, moderate F33.1 ; PTSD (post-traumatic stress disorder) F43.10 ; Opioid use disorder, moderate, in sustained remission F11.21 ; Cannabis abuse F12.10 ; Alcohol use disorder, mild, 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 ; Methamphetamine use disorder, severe, 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 ; Cocaine use disorder, moderate, in sustained remission F14.21 and Tobacco use Z72.0 [facility] [address] [place] [address]859- 9922 Jun, Major depressive disorder, recurrent episode, moderate F33.1 ; Generalized anxiety disorder F41.1 and Cannabis abuse F12.10 [facility] [address] [place] [address]286- 1657 Jun, [facility] [id number] [place] [address]- 5050 Jun, [facility] [id number] [place] [address] 79453- 5154 Jun, Major depressive disorder, recurrent episode, moderate F33.1 ; Generalized anxiety disorder F41.1 and Cannabis abuse F12.10 [facility] [address] [address] Mar, Dental examination Z01.20 [facility] [address] [address] Feb, Dental examination Z01.20 [facility] [address], [place] [address]- 5833 Mar, [facility] [address] [address]- 5722 Mar, [facility] [address], [place] [address]- 2232 15 Feb, 2015 Hyperlipidemia 272.4 and Prediabetes 790.29 [facility] [address] [address]- 1480 Feb, Fatigue 780.79 and Hyperlipidemia 272.4 [facility] [address], [place] [address] Feb, Lumbago 724.2 ; Hyperlipidemia 272.4 ; Insomnia 780.52 and Fatigue 780.79 [facility] [address], [place] [address]- 9[address] Nov, [facility] [address] [address]- 5849 Nov, [facility] [address] [address] 8319 Mar, [facility] [address], [place] [address]- 6821 Mar, [facility] [address], [place] [address]- 6063 Jan, [facility] [address], [place] [address]- 8603 Jan, [facility] [address], [place] [address]- 5712 December, [facility] [address], [place] [address]- 5301 December, [facility] [address] [id number], [place] [address]- 7039 Nov, [facility] [address] [address]- 5224 Nov, [facility] [address] [id number], [place] [address]- 8314 Nov, [facility] [address] [address]- 9503 Nov, [facility] [place] [facility] [address] [id number] [place] [address]- 2541 Nov, [facility] [place] [facility] [address] [id number] [place] [address]- 4498 28 Nov, 2013 [facility] [place] [facility] [address] [id number] [place] [address]- 2325 31 Oct, 2013 [facility] [place] [facility] [address] [id number] [place] [address]- 7653 31 Oct, 2013 [facility] [place] [facility] [address] [id number] [place] [address]- 8154 20 Oct, 2013 [facility] [place] [facility] [address] [id number] [place] [address]- 6209 20 Oct, 2013 [facility] [place] [facility] [address] [id number] [place] [address]- 7577 Oct, [facility] [place] [facility] [address] [id number] [place] [address]- 2268 19 Oct, 2013 [facility] [place] [facility] [address] [id number] [place] [address]- 3575 Oct, [facility] [place] [facility] [address] [id number] [place] [address]- 7616 Oct, [facility] [place] [facility] [address] [id number] [place] [address]- 0941 Oct, [facility] [place] [facility] [address] [id number] [place] [address]- 5234 Oct, [facility] [place] [facility] [address] [id number] [place] [address]- 1999 04 Oct, 2013 [facility] [place] [facility] [address] [id number] [place] [address]- 3628 Oct, [facility] [place] [facility] [address] [id number] [place] [address]- 7623 Oct, [facility] [place] [facility] [address] [id number] [place] [address]- 0105 24 Sep, 2013 [facility] [place] [facility] [address] [id number] [place] [address]- 1826 24 Sep, 2013 [facility] [place] [facility] [address] [id number] [place] [address]- 2546 20 Sep, 2013 [facility] [place] [facility] [address] [id number] [place] [address]- 1166 20 Sep, 2013 [facility] [place] [facility] [address] [id number] [place] [address]- 3474 20 Sep, 2013 [facility] [place] [facility] [address] [id number] [place] [address]- 6657 20 Sep, 2013 [facility] [place] [facility] [address] [facility] [id number] [place] [address]- 4775 18 Sep, 2013 [facility] [place] [facility] [address] [id number] [place] [address]- 4215 18 Sep, 2013 [facility] [place] [facility] [address] [id number] [place] [address]- 6154 14 Sep, 2013 [facility] [place] [facility] [address] [facility] [id number] [place] [address]- 1113 14 Sep, 2013 [facility] [place] [facility] [address] [id number] [place] [address]- 3303 14 Sep, 2013 [facility] [place] [facility] [address] [id number] [place] [address]- 2544 14 Sep, 2013 [facility] [place] [facility] [address] [id number] [place] [address]- 8232 14 Sep, 2013 [facility] [place] [facility] [address] [id number] [place] [address]- 4115 14 Sep, 2013 [facility] [place] [facility] [address] [facility] [id number] [place] [address]- 0624 13 Sep, 2013 [facility] [place] [facility] [address] [id number] [place] [address]- 2988 13 Sep, 2013 [facility] [address] [id number] [place] [address]- 7836 Sep, [facility] [place] [facility] [address] [id number] [place] [address]- 1936 Sep, [facility] [place] [facility] [address] [id number] [place] [address]- 0946 Sep, [facility] [place] [facility] [address] [id number] [place] [address]- 0514 Sep, [facility] [place] [facility] [address] [id number] [place] [address]- 9393 Aug, [facility] [place] [facility] [address] [id number] [place] [address]- 9943 Aug, [facility] [place] [facility] [address] [id number] [place] [address]- 4547 Aug, [facility] [place] [facility] [address] [id number] [place] [address]- 4743 Aug, [facility] [place] [facility] [address] [id number] [place] [address]- 5703 Aug, [facility] [place] [facility] [address] [facility] [id number] [place] 6839 Jul, [facility] [place] [facility] [address] [id number] [place] [address]- 6698 Jul, [facility] [place] [facility] [address] [id number] [place] [address]- 0964 Jul, [facility] [place] [facility] [address] [id number] [place] [address]- 0116 Jul, [facility] [place] [facility] [address] [id number] [place] [address]- 2546 Jul, [facility] [place] [facility] [address] [id number] [place] [address]- 5187 Jul, [facility] [place] [facility] [address] [id number] [place] [address]- 3045 Jul, [facility] [place] [facility] [address] [id number] [place] [address]- 2219 Jul, [facility] [place] [facility] [address] [id number] [place] 6946 Jul, [facility] [place] [facility] [address] [id number] [place] [address]- 8332 Jun, [facility] [place] [facility] [address] [id number] [place] [address]- 6546 Jun, [facility] [place] [facility] [address] [id number] [place] [address]- 5556 Jun, [facility] [place] [facility] [address] [id number] [place] [address]- 8120 Jun, [facility] [place] [facility] [address] [id number], [place] [address]- 6579 Jun, [facility] [place] [facility] [address] [id number], [place] [address]- 5801 Jun, [facility] [place] [facility] [address] [id number], [place] [address]- 6419 Jun, [facility] [place] [facility] [address] [id number], [place] [address]- 1665 Jun, [facility] [place] [facility] [address] [id number], [place] [address]- 6841 Jun, [facility] [place] [facility] [address] [id number], [place] [address]- 2852 Jun, [facility] [place] [facility] [address] [id number], [place] [address]- 8251 May, [facility] [place] [facility] [address] [id number], [place] [address]- 7616 May, [facility] [place] [facility] [address] [id number] [place] [address]- 5801 May, [facility] [place] [facility] [address] [id number] [place] [address]- 7727 May, [facility] [place] [facility] [address] [id number] [place] [address]- 2248 16 May, 2013 [facility] [place] [facility] [address] [id number] [place] [address]- 3027 May, [facility] [place] [facility] [address] [id number] [place] [address]- 1184 May, [facility] [place] [facility] [address] [id number] [place] [address]- 8945 May, [facility] [place] [facility] [address] [id number] [place] [address]- 3777 May, [facility] [place] [facility] [address] [id number] [place] [address]- 9436 Apr, [facility] [place] [facility] [address] [id number] [place] [address]- 4779 16 Apr, 2013 [facility] [place] [facility] [address] [id number] [place] [address]- 6702 12 Apr, 2013 [facility] [place] [facility] [address] [id number] [place] [address]- 8645 06 Apr, 2013 [facility] [place] [facility] [address] [id number] [place] [address]- 7442 30 Mar, 2013 [facility] [place] [facility] [address] [id number] [place] [address]- 2540 Mar, [facility] [place] [facility] [address] [id number] [place] [address]- 5495 Mar, [facility] [place] [facility] [address] [id number] [place] [address]- 4364 Mar, [facility] [place] [facility] [address] [id number] [place] [address]- 2044 Mar, [facility] [place] [facility] [address] [id number] [place] [address]- 8368 Mar, [facility] [place] [facility] [address] [id number] [place] [address]- 0890 Mar, [facility] [place] [facility] [address] [id number] [place] [address]- 0497 Feb, [facility] [place] [facility] [address] [id number] [place] [address]- 4144 Feb, [facility] [place] [facility] [address] [id number] [place] [address]- 5444 Feb, [facility] [place] [facility] [address] [id number] [place] [address]- 3600 Feb, [facility] [place] [facility] [address] [id number] [place] [address]- 8784 Feb, [facility] [place] [facility] [address] [id number] [place] [address]- 6028 Feb, [facility] [place] [facility] [address] [id number] [place] [address]- 9347 Feb, [facility] [place] [facility] [address] [id number] [place] [address]- 3874 Feb, [facility] [place] [facility] [address] [id number] [place] [address]- 7475 Feb, [facility] [place] [facility] [address] [id number] [place] [address]- 7868 Feb, [facility] [place] [facility] [address] [id number] [place] [address]- 8499 Feb, [facility] [place] [facility] [address] [id number] [place] [address]- 9322 Jan, [facility] [place] [facility] [address] [id number] [place] [address]- 9283 Jan, [facility] [place] [facility] [address] [id number] [place] [address]- 5866 December, [facility] [address] [id number] [place] [address]146 December, [facility] [address] [id number] [place] [address]- 3264 Nov, [facility] [address] [id number] [place] [address]- 1649 Nov, [facility] [address] [id number] [place] [address]- 1362 Oct, [facility] [address] [id number] [place] [address]- 3292 Oct, [facility] [address] [id number] [place] [address]- 4608 Oct, [facility] [address] [id number] [place] [address]- 9026 Oct, [facility] [address] [id number] [place] [address]- 2465 Sep, [facility] [address] [id number] [place] [address]- 2000 Sep, [facility] [address] [id number] [place] [address]- 5652 Sep, [facility] [address] [id number] [place] [address]- 9441 Sep, [facility] [place] [facility] [address] [id number] [place] [address]- 8815 Aug, [facility] [place] [facility] [address] [id number] [place] [address]- 8070 Aug, [facility] [place] [facility] [address] [id number] [place] [address]- 3650 Jul, [facility] [place] [facility] [address] [facility] [id number] [place] [address]- 5315 Jul, [facility] [place] [facility] [address] [id number] [place] [address]- 3230 Jul, [facility] [place] [facility] [address] [id number] [place] [address] Jul, [facility] [place] [facility] [address] [id number] [place] [address] Jul, [facility] [place] [facility] [address] [id number] [place] [address] Jul, [facility] [place] [facility] [address] [id number] [place] [address] Jun, [facility] [place] [facility] [address] [id number] [place] [address] Jun, [facility] [place] [facility] [address] [id number] [place] [address] Jun, [facility] [place] [facility] [address] [id number] [place] [address] Jun, [facility] [place] [facility] [address] [id number] [place] [address] Jun, [facility] [place] [facility] [address] [id number] [place] [address] May, [facility] [place] [facility] [address] [id number] [place] [address] May, [facility] [place] [facility] [address] [id number] [place] [address] May, [facility] [place] [facility] [address] [id number] [place] [address] May, [facility] [place] [facility] [address] [id number] [place] [address] May, [facility] [place] [facility] [address] [id number] [place] [address] May, [facility] [place] [facility] [address] [id number] [place] [address] May, [facility] [place] [facility] [address] [id number] [place] [address] May, [facility] [place] [facility] [address] [id number] [place] [address] Mar, [facility] [place] [facility] [address] [id number] [place] [address] Mar, [facility] [place] [facility] [address] [id number] [place] [address] Mar, [facility] [place] [facility] [address] [id number] [place] [address] Feb, [facility] [place] [facility] [address] [id number] [place] [address] Feb, [facility] [place] [facility] [address] [id number] [place] [address] Feb, [facility] [place] [facility] [address] [id number] [place] [address] Feb, [facility] [place] [facility] [address] [id number] [place] [address] Jan, [facility] [place] [facility] [address] [id number] [place] [address] Jan, [facility] [place] [facility] [address] [id number] [place] [address] Jan, [facility] [place] [facility] [address] [id number] [place] [address] December, [facility] [place] [facility] [address] [id number] [place] [address] Nov, [facility] [place] [facility] [address] [id number] [place] [address] Oct, [facility] [place] [facility] [address] [id number] [place] [address] Oct, [facility] [place] [facility] [address] [id number] [place] [address] 05 Oct, 2011 [facility] [address] [id number] [place] [address] Oct, [facility] [place] [facility] [address] [id number] [place] [address] Aug, [facility] [address] [id number] [place] [address] Aug, [facility] [place] [facility] [address] [id number] [place] [address] Aug, [facility] [address] [id number] [place] [address] Aug, [facility] [place] [facility] [address] [id number] [place] [address] Aug, [facility] [address] [id number] [place] [address] Aug, [facility] [address] [id number] [place] [address]- [address] Aug, [facility] [address] [id number] [place] [address] Aug, [facility] [address] [id number] [place] [address] Jul, [facility] [address] [id number] [place] [address] Jun, [facility] [place] [facility] [address] [id number] [place] [address] Jun, [facility] [place] [facility] [address] [id number] [place] [address] Jul, [facility] [place] [facility] [address] [id number] [place] [address] Jul, [facility] [place] [facility] [address] [id number] [place] [address] Jul, [facility] [place] [facility] [address] [id number] [place] [address] 14 Jul, 2010 [facility] [place] [facility] [address] [id number] [place] [address] 14 Jul, 2010 [facility] [place] [facility] [address] [id number] [place] [address] 24 Jun, 2010 [facility] [place] [facility] [address] [id number] [place] [address] May, [facility] [place] [facility] [address] [id number] [place] [address] Mar, [facility] [place] [facility] [address] [id number] [place] [address] Oct, [facility] [place] [facility] [address] [id number] [place] [address] Aug, [facility] [place] [facility] [address] [id number] [place] [address] 15 Jul, 2009 [facility] [place] [facility] [address] [id number] [place] [address] Jul, [facility] [place] [facility] [address] [id number] [place] [address] Jun, [facility] [place] [facility] [address] [id number] [place] [address] Jun, [facility] [place] [facility] [address] [id number] [place] [address] May, [facility] [place] [facility] [address] [id number] [place] [address] May, [facility] [place] [facility] [address] [id number] [place] [address] Mar, [facility] [place] [facility] [address] [id number] [place] [address] 14 Mar, 2009 [facility] [place] [facility] [address] [id number] [address] Oct, IMMUNIZATIONS No Known Immunizations SOCIAL HISTORY Never Assessed REASON FOR VISIT [facility], contract collected PLAN OF CARE Activity Details Follow Up 4 Weeks Reason: VITAL SIGNS Height 68 in 2017-06-21 Weight 196.2 lbs 2017-06-21 Heart Rate 84 bpm 2017-06-21 Respiratory Rate 20 2017-06-21 BMI 29.83 kg/m2 2017-06-21 Blood pressure systolic 126 mmHg 2017-06-21 Blood pressure diastolic 72 mmHg 2017-06-21 MEDICATIONS Medication Instructions Dosage Frequency Start Date End Date Duration Status Trazodone HCl 100 MG Orally Once a day 1 tablet at bedtime 24h Feb, Active Naproxen 500 MG Orally 2 times a day 1 tablet as needed 12h Active cyclobenzaprine 10 mg 1 tablet every 6 hours PRN 8h Oct, Active Xanax 1 mg 1 tablet by Oral route 3 times per day PRN Oct, Active Prozac 10 MG Orally daily 1 capsule every day for one week then take 2 capsules every day 24h Jun, 30 day(s) Active RESULTS No Results PROCEDURES [...] disc replacement L1- L5 - Dr Muhammad ([place]) Surgical History appendectomy 1983 Surgical History hysterectomy 1993 Surgical History dilatation and curettage Surgical History heart cath- Dr Shaw [address] Meza bowel and intestines 2015 Hospitalization History Hospitalization for surgery only
--- OUTSIDE RECORDS SUMMARY | 2018-04-23 11:38 | XMS REPORT ---
Author Author JOSE EMANUEL Organization [facility] Address [address] [place] [address] Care Team Providers Care [employer] Consultant Name Role Phone ADELFO JOSE Unavailable PROBLEMS Type Condition ICD9-CM Code WWB12-EO Code Onset Dates Condition Status SNOMED Code Problem Generalized anxiety disorder F41.1 Active 39381476 Problem Cannabis abuse F12.10 Active 72674630 Problem Major depressive disorder, recurrent episode, moderate F33.1 Active 432624033 Problem Tobacco use Z72.0 Active 102870105 Problem Diarrhea 787.91 Active 04778617 Problem PTSD (post-traumatic stress disorder) F43.10 Active 76750686 Problem Opioid use disorder, moderate, in sustained remission F11.21 Active 70399325 Problem Alcohol use disorder, mild, 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 Active 22929773 Problem Cocaine use disorder, moderate, in sustained remission F14.21 Active 79050916 Problem Methamphetamine use disorder, severe, 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 Active 18756602 Problem Thoracic or lumbosacral neuritis or radiculitis, unspecified 724.4 Active 363611859 Problem Hematuria, unspecified 599.70 Active 85992125 Problem Spasm of muscle 728.85 Active 06072400 Problem Lumbago 724.2 Active 677166264 Problem Insomnia 780.52 Active 528221175 Problem Hyperlipidemia 272.4 Active 70067508 Problem Major depressive disorder, recurrent episode, severe, without mention of psychotic behavior 296.33 Active 18998012 Problem Prediabetes 790.29 Active 6108403 Problem Adjustment disorder with depressed mood 309.0 Active 68028150 Problem Mixed hyperlipidemia E78.2 Active 506380051 ALLERGIES No Information ENCOUNTERS Encounter Location Date Diagnosis [facility] [address] [facility] [id number], [place] [address] Jan, [facility] [address] [facility] [id number], [place] [address] Jan, [facility] [address] [address] December, [facility] [id number] [place] [address] December, Major depressive disorder, recurrent episode, moderate [...] sustained remission F10.11 and Tobacco use Z72.0 [facility] [id number] [place] [address]01- 4[address] Nov, [facility] [address] [place], [place] [id number] [place] [address] Nov, [facility] [id number] [place] [address] 48262- 3148 Nov, Wellness examination Z00.00 ; Encounter for immunization Z23 ; Screening for osteoporosis Z13.820 ; Screening for breast cancer Z12.31 and Left breast lump N63.20 [facility] [address] [place] [id number] Oct, Dental examination Z01.20 [facility] [id number] [place] [address] 92910- 7854 Oct, [facility] [id number] [place] [address] 33545- 8315 Oct, [facility] [id number] [place] [address] 76135- 7922 16 Sep, 2017 [facility] [id number] [place] [address] 23685- 2888 15 Sep, 2017 [facility] [id number] [place] [address] 77312- 1641 14 Sep, 2017 Left otitis media with effusion H65.92 ; Acute suppurative otitis media of right ear without spontaneous rupture of tympanic membrane, recurrence not specified H66.001 ; Dizziness R42 and Fatigue 780.79 [facility] [id number] [place] [address] 05332- 5831 Aug, Major depressive disorder, recurrent episode, moderate [...] F10.11 and Tobacco use Z72.0 [facility] [address] [place] [address] Aug, Ingrown right big toenail L60.0 [facility] [address] [address] Aug, [facility] [id number] [place] [address] 83989- 5031 Aug, PTSD (post-traumatic stress disorder) F43.10 [facility] [id number] [place] [address] 41750- 0256 Aug, Major depressive disorder, recurrent episode, moderate F33.1 ; Generalized anxiety disorder F41.1 and Cannabis abuse F12.10 [facility] [id number] [place] [address] 01185- 5200 Jul, [facility] [id number] [place] [address] 53160- 9562 Jul, [facility] [id number] [place] [address] 75640- 6867 Jul, [facility] [id number] [place] [address] 36885- 9614 Jul, Major depressive disorder, recurrent episode, moderate F33.1 ; Generalized anxiety disorder F41.1 and Cannabis abuse F12.10 [facility] [address] [place] [address] 88954- 5159 Jul, [facility] [id number] [place] [address] 669822- 9676 Jul, [facility] [id number] [place] [address] 044249- 8367 Jul, Hyperlipidemia 272.4 [facility] [id number] [place] [address] 83590- 4770 Jul, PTSD (post-traumatic stress disorder) F43.10 [facility] [id number] [place] [address] 95994- 6523 Jul, Tobacco use Z72.0 ; Alcohol use [...] anxiety disorder F41.1 and Cannabis abuse F12.10 [facility] [address] [place] [address] 60295- 2213 Jul, [facility] [id number] [place] [address] 36250- 9927 Jul, Dysuria R30.0 and Mixed hyperlipidemia E78.2 [facility] [address] [place] [address] 31813- 1868 Jun, Major depressive disorder, recurrent episode, moderate F33.1 ; Generalized anxiety disorder F41.1 and Cannabis abuse F12.10 [facility] [address] [place] [address] 98222- 7814 Jun, [facility] [id number] [place] [address] 88247- 5775 Jun, Generalized anxiety disorder F41.1 ; Major depressive disorder, recurrent episode, moderate F33.1 ; PTSD (post-traumatic stress disorder) F43.10 ; Opioid use disorder, moderate, in sustained remission F11.21 ; Cannabis abuse F12.10 ; Alcohol use disorder, mild, 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 ; Methamphetamine use disorder, severe, 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 ; Cocaine use disorder, moderate, in sustained remission F14.21 and Tobacco use Z72.0 [facility] [address] [address]- 7601 Jun, Major depressive disorder, recurrent episode, moderate F33.1 ; Generalized anxiety disorder F41.1 and Cannabis abuse F12.10 [facility] [address] 00463- 4469 Jun, [facility] [id number] [place] [address] 25330- 9631 Jun, [facility] [address] 71590- 3431 Jun, Major depressive disorder, recurrent episode, moderate F33.1 ; Generalized anxiety disorder F41.1 and Cannabis abuse F12.10 [facility] [address] [id number] Mar, Dental examination Z01.20 [facility] [address] [id number] Feb, Dental examination Z01.20 [facility] [id number] [place] [address] 23131- 2296 Mar, [facility] [id number] [place] [address] 82675- 5713 Mar, [facility] [address] 42594- 0983 Feb, Hyperlipidemia 272.4 and Prediabetes 790.29 [facility] [address] 33027- 9219 Feb, Fatigue 780.79 and Hyperlipidemia 272.4 [facility] [address] [facility] [id number] [place] [address]- 8061 Feb, Lumbago 724.2 ; Hyperlipidemia 272.4 ; Insomnia 780.52 and Fatigue 780.79 [facility] [address] [facility] [id number] [place] [address]- 2517 Nov, [facility] [address] [facility] [id number] [place] [address]- 1095 Nov, [facility] [address] [facility] [id number] [place] [address]- 1014 Mar, [facility] [address] [facility] [id number] [place] [address]- 0684 Mar, [facility] [address] [facility] [id number] [place] [address]- 0562 Jan, [facility] [id number] [place] [address]- 5037 Jan, [facility] [address] [facility] [id number] [place] [address]- 5157 December, [facility] [address] [id number] [place] [address]- 5163 December, [facility] [address] [id number] [place] [address]- 8649 Nov, [facility] [address] [id number] [place] [address]- 0456 Nov, [facility] [address] [facility] [id number] [place] [address]- 5605 Nov, [facility] [address] [facility] [id number] [place] [address]- 9047 Nov, [facility] [address] [facility] [id number] [place] [address]- 4665 Nov, [facility] [address] [facility] [id number], [place] [address]- 2154 Nov, [facility] [place] [facility] [address] [id number] [place] [address]- 0944 31 Oct, 2013 [facility] [place] [facility] [address] [id number] [place] [address]- 3122 31 Oct, 2013 [facility] [place] [facility] [address] [id number] [place] [address]- 7108 20 Oct, 2013 [facility] [place] [facility] [address] [id number] [place] [address]- 1613 20 Oct, 2013 [facility] [place] [facility] [address] [id number] [place] [address]- 5060 Oct, [facility] [place] [facility] [address] [id number] [place] [address]- 4805 Oct, [facility] [place] [facility] [address] [id number] [place] [address]- 0663 Oct, [facility] [place] [facility] [address] [id number] [place] [address]- 4524 Oct, [facility] [place] [facility] [address] [id number] [place] [address]- 2932 Oct, [facility] [place] [facility] [address] [id number] [place] [address]- 5523 Oct, [facility] [place] [facility] [address] [id number] [place] [address]- 5686 Oct, [facility] [place] [facility] [address] [id number] [place] [address]- 2765 Oct, [facility] [place] [facility] [address] [id number] [place] [address]- 6252 Oct, [facility] [place] [facility] [address] [id number] [place] [address]- 7253 Sep, [facility] [place] [facility] [address] [id number] [place] [address]- 6611 Sep, [facility] [place] [facility] [address] [id number] [place] [address]- 2772 20 Sep, 2013 [facility] [place] [facility] [address] [id number] [place] [address]- 8056 20 Sep, 2013 [facility] [place] [facility] [address] [id number] [place] [address]- 7138 20 Sep, 2013 [facility] [place] [facility] [address] [id number] [place] [address]- 4809 20 Sep, 2013 [facility] [place] [facility] [address] [id number] [place] [address]- 8608 18 Sep, 2013 [facility] [place] [facility] [address] [id number] [place] [address]- 7557 18 Sep, 2013 [facility] [place] [facility] [address] [facility] [id number] [place] [address]- 9619 14 Sep, 2013 [facility] [place] [facility] [address] [facility] [id number] [place] [address]- 9563 14 Sep, 2013 [facility] [place] [facility] [address] [id number] [place] [address]- 7004 14 Sep, 2013 [facility] [place] [facility] [address] [facility] [id number] [place] [address]- 7237 14 Sep, 2013 [facility] [place] [facility] [address] [facility] [id number] [place] [address]- 3399 14 Sep, 2013 [facility] [place] [facility] [address] [facility] [id number] [place] [address]- 2647 14 Sep, 2013 [facility] [place] [facility] [address] [id number] [place] [address]- 2541 13 Sep, 2013 [facility] [place] [facility] [address] [id number] [place] [address]- 0521 13 Sep, 2013 [facility] [place] [facility] [address] [facility] [id number] [place] [address]- 2540 12 Sep, 2013 [facility] [place] [facility] [address] [facility] [id number] [place] [address]- 2432 Sep, [facility] [place] [facility] [address] [id number] [place] [address]- 8836 Sep, [facility] [place] [facility] [address] [id number] [place] [address]- 2866 Sep, [facility] [place] [facility] [address] [facility] [id number] [place] [address]- 5949 Aug, [facility] [place] [facility] [address] [id number] [place] [address]- 6116 Aug, [facility] [place] [facility] [address] [id number] [place] 8753 Aug, [facility] [place] [facility] [address] [facility] [id number] [place] [address]- 9366 Aug, [facility] [place] [facility] [address] [facility] [id number] [place] [address]- 0578 Aug, [facility] [place] [facility] [address] [id number] [place] [address]- 3216 Jul, [facility] [place] [facility] [address] [id number] [place] [address]- 5227 Jul, [facility] [place] [facility] [address] [facility] [id number] [place] [address]- 0034 Jul, [facility] [place] [facility] [address] [facility] [id number], [place] [address]- 4507 Jul, [facility] [place] [facility] [address] [id number], [place] [address]- 4422 Jul, [facility] [place] [facility] [address] [id number] [place] [address]- 3930 Jul, [facility] [place] [facility] [address] [facility] [id number] [place] [address]- 6969 Jul, [facility] [place] [facility] [address] [facility] [id number] [place] [address]- 9430 Jul, [facility] [place] [facility] [address] [id number] [place] [address]- 0512 Jul, [facility] [address] [id number] [place] [address]- 2359 Jun, [facility] [place] [facility] [address] [id number] [place] [address]- 5742 Jun, [facility] [address] [id number] [place] [address]- 8528 Jun, [facility] [place] [facility] [address] [id number] [place] [address]- 7120 Jun, [facility] [address] [id number] [place] [address]- 7246 Jun, [facility] [place] [facility] [address] [id number] [place] [address]- 7658 Jun, [facility] [place] [facility] [address] [id number] [place] [address]- 3556 Jun, [facility] [address] [id number] [place] [address]- 0774 Jun, [facility] [place] [facility] [address] [id number] [place] [address]- 0330 Jun, [facility] [address] [facility] [id number] [place] [address]- 9044 Jun, [facility] [place] [facility] [address] [id number] [place] [address]- 5724 May, [facility] [place] [facility] [address] [id number] [place] [address]- 0866 May, [facility] [place] [facility] [address] [id number] [place] [address]- 0867 May, [facility] [place] [facility] [address] [id number] [place] [address]- 1514 May, [facility] [place] [facility] [address] [id number] [place] [address]- 4518 16 May, 2013 [facility] [place] [facility] [address] [id number] [place] [address]- 1154 May, [facility] [place] [facility] [address] [id number] [place] [address]- 0769 May, [facility] [place] [facility] [address] [id number] [place] [address]- 2150 May, [facility] [place] [facility] [address] [id number] [place] [address]- 6734 May, [facility] [place] [facility] [address] [id number] [place] [address]- 3628 Apr, [facility] [place] [facility] [address] [id number] [place] [address]- 6492 16 Apr, 2013 [facility] [place] [facility] [address] [id number] [place] [address]- 4228 Apr, [facility] [place] [facility] [address] [id number] [place] [address]- 5385 Apr, [facility] [place] [facility] [address] [id number] [place] [address]- 5095 Mar, [facility] [place] [facility] [address] [id number] [place] [address]- 6930 Mar, [facility] [place] [facility] [address] [id number] [place] [address]- 0715 Mar, [facility] [place] [facility] [address] [id number], [place] [address]- 8086 Mar, [facility] [place] [facility] [address] [id number] [place] [address]- 6587 Mar, [facility] [place] [facility] [address] [id number] [place] [address]- 0780 Mar, [facility] [place] [facility] [address] [id number], [place] [address]- 8351 Mar, [facility] [place] [facility] [address] [id number], [place] [address]- 6797 Feb, [facility] [address] [id number] [place] [address]- 2399 Feb, [facility] [place] [facility] [address] [id number] [place] [address]- 8090 Feb, [facility] [address] [id number] [place] [address]- 5247 Feb, [facility] [address] [id number] [place] [address]- 6930 Feb, [facility] [address] [id number] [place] [address]- 0469 Feb, [facility] [address] [id number] [place] [address]- 1611 Feb, [facility] [address] [id number] [place] [address]- 8489 Feb, [facility] [address] [id number] [place] [address]- 4230 Feb, [facility] [address] [id number] [place] [address]- 7093 Feb, [facility] [address] [id number] [place] [address]- 0177 Feb, [facility] [address] [id number] [place] [address]- 2314 Jan, [facility] [place] [facility] [address] [id number] [place] [address]- 0514 Jan, [facility] [place] [facility] [address] [id number] [place] [address]- 3967 December, [facility] [place] [facility] [address] [id number] [place] [address]- 0141 December, [facility] [place] [facility] [address] [id number] [place] [address]- 0870 Nov, [facility] [place] [facility] [address] [id number] [place] [address]- 9673 Nov, [facility] [address] [id number] [place] [address]- 6086 Oct, [facility] [place] [facility] [address] [id number] [place] [address]- 8858 Oct, [facility] [place] [facility] [address] [id number] [place] [address]- 1752 Oct, [facility] [place] [facility] [address] [id number] [place] [address]- 2194 Oct, [facility] [place] [facility] [address] [id number] [place] [address]- 7006 Sep, [facility] [place] [facility] [address] [id number] [place] [address]- 5082 Sep, [facility] [place] [facility] [address] [id number] [place] [address] Sep, [facility] [place] [facility] [address] [id number] [place] [address] Sep, [facility] [place] [facility] [address] [id number] [place] [address] Aug, [facility] [place] [facility] [address] [id number] [place] [address] Aug, [facility] [place] [facility] [address] [id number] [place] [address] Jul, [facility] [place] [facility] [address] [id number] [place] [address] Jul, [facility] [place] [facility] [address] [id number] [place] [address] Jul, [facility] [place] [facility] [address] [id number] [place] [address] Jul, [facility] [place] [facility] [address] [id number], [place] [address] Jul, [facility] [place] [facility] [address] [id number] [place] [address] Jul, [facility] [place] [facility] [address] [id number] [place] [address] Jun, [facility] [place] [facility] [address] [id number] [place] [address] Jun, [facility] [place] [facility] [address] [id number], [place] [address] Jun, [facility] [place] [facility] [address] [id number] [place] [address] Jun, [facility] [place] [facility] [address] [id number] [place] [address] Jun, [facility] [place] [facility] [address] [id number] [place] [address] May, [facility] [place] [facility] [address] [id number], [place] [address] May, [facility] [place] [facility] [address] [id number], [place] [address] May, [facility] [place] [facility] [address] [id number] [place] [address]- [address] May, [facility] [place] [facility] [address] [id number], [place] [address] May, [facility] [place] [facility] [address] [id number], [place] [address] May, [facility] [place] [facility] [address] [id number] [place] [address]- [address] May, [facility] [place] [facility] [address] [facility] [id number], [place] [address] May, [facility] [place] [facility] [address] [id number], [place] [address] Mar, [facility] [place] [facility] [address] [id number] [place] [address] Mar, [facility] [address] [id number] [place] [address] Mar, [facility] [address] [id number] [place] [address] Feb, [facility] [address] [id number] [place] [address] Feb, [facility] [address] [id number] [place] [address] Feb, [facility] [address] [id number] [place] [address]- [address] Feb, [facility] [address] [id number] [place] [address] Jan, [facility] [address] [id number] [place] [address] Jan, [facility] [address] [id number] [place] [address] Jan, [facility] [address] [id number] [place] [address] December, [facility] [address] [id number] [place] [address] Nov, [facility] [place] [facility] [address] [id number] [place] [address] Oct, [facility] [address] [id number] [place] [address]- [address] Oct, [facility] [place] [facility] [address] [id number] [place] [address]- [address] Oct, [facility] [place] [facility] [address] [id number] [place] [address] Oct, [facility] [place] [facility] [address] [id number] [place] [address] Aug, [facility] [address] [id number] [place] [address]- [address] Aug, [facility] [place] [facility] [address] [address] [id number] [place] [address] Aug, [facility] [place] [facility] [address] [id number] [place] [address] Aug, [facility] [place] [facility] [address] [id number] [place] [address] Aug, [facility] [address] [id number] [place] [address] Aug, [facility] [place] [facility] [address] [id number] [place] [address] Aug, [facility] [address] [id number] [place] [address] Aug, [facility] [address] [id number] [place] [address] Jul, [facility] [place] [facility] [address] [id number] [place] [address] Jun, [facility] [address] [id number] [place] [address] Jun, [facility] [place] [facility] [address] [id number] [place] [address] 31 Jul, 2010 [facility] [place] [facility] [address] [id number] [place] [address] Jul, [facility] [place] [facility] [address] [id number] [place] [address] Jul, [facility] [place] [facility] [address] [id number] [place] [address] 14 Jul, 2010 [facility] [place] [facility] [address] [id number] [place] [address] 14 Jul, 2010 [facility] [place] [facility] [address] [id number] [address] Jun, [facility] [id number] [address] May, [facility] [id number] [address] Mar, [facility] [id number] [address] Oct, [facility] [id number] [address] Aug, [facility] [id number] [place] [address] Jul, [facility] [id number] [address] Jul, [facility] [id number] [address] Jun, [facility] [id number] [address] Jun, [facility] [id number] [address] May, [facility] [id number] [address] May, [facility] [id number] [address] Mar, [facility] [id number] [address] Mar, [facility] [id number] [address] Oct, IMMUNIZATIONS No Known Immunizations SOCIAL HISTORY Never Assessed REASON FOR VISIT Requests return call PLAN OF CARE VITAL SIGNS MEDICATIONS Unknown [...] disc replacement L1- L5 - Dr Muhammad ([place]) Surgical History appendectomy 1983 Surgical History hysterectomy 1993 Surgical History dilatation and curettage Surgical History heart cath- Dr Shaw [address] Meza bowel and intestines seperated 2015 Hospitalization History Hospitalization for surgery only
--- OUTSIDE RECORDS SUMMARY | 2018-04-23 11:39 | XMS REPORT ---
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 Role Phone ADELFO JOSE Unavailable PROBLEMS Type Condition ICD9-CM Code [id number] Code Onset Dates Condition Status SNOMED Code Problem Generalized anxiety disorder F41.1 Active 60092170 Problem Cannabis abuse F12.10 Active 86491054 Problem Major depressive disorder, recurrent episode, moderate F33.1 Active 848054816 Problem Tobacco use Z72.0 Active 280348089 Problem Diarrhea 787.91 Active 83617164 Problem PTSD (post-traumatic stress disorder) F43.10 Active 51308466 Problem Opioid use disorder, moderate, in sustained remission F11.21 Active 17958333 Problem Alcohol use disorder, mild, 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 Active 45868585 Problem Cocaine use disorder, moderate, in sustained remission F14.21 Active 86344501 Problem Methamphetamine use disorder, severe, 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 Active 26650799 Problem Thoracic or lumbosacral neuritis or radiculitis, unspecified 724.4 Active 764349114 Problem Hematuria, unspecified 599.70 Active 23198785 Problem Spasm of muscle 728.85 Active 64333836 Problem Lumbago 724.2 Active 105823616 Problem Insomnia 780.52 Active 941218648 Problem Hyperlipidemia 272.4 Active 92283043 Problem Major depressive disorder, recurrent episode, severe, without mention of psychotic behavior 296.33 Active 61865336 Problem Prediabetes 790.29 Active 9406096 Problem Adjustment disorder with depressed mood 309.0 Active 11392531 Problem Mixed hyperlipidemia E78.2 Active 389249097 ALLERGIES No Information ENCOUNTERS Encounter Location Date Diagnosis [facility] [address] [facility] [id number] [address] Jan, [facility] [address] [facility] [id number] [address] Jan, [facility] [address] [address] December, Major depressive disorder, recurrent episode, moderate F33.1 [facility] [address] [address] December, [facility] [id number] [place] [address]67[address] December, Major depressive disorder, recurrent episode, moderate [...] sustained remission F10.11 and Tobacco use Z72.0 [facility] [address] [place] [address]- [address]63 Nov, [facility] [id number] [place] [address] Nov, [facility] [address] [place] [address]- [address] Nov, Wellness examination Z00.00 ; Encounter for immunization Z23 ; Screening for osteoporosis Z13.820 ; Screening for breast cancer Z12.31 and Left breast lump N63.20 [facility] [address] [place] [id number] Oct, Dental examination Z01.20 [facility] [address] [place] [address]- 5839 Oct, [facility] [id number] [place] [address]24- 9967 Oct, [facility] [id number] [place] [address] 60482- 9487 Sep, [facility] [address] [address] 15 Sep, 2017 [facility] [address] [address] 14 Sep, 2017 Left otitis media with effusion H65.92 ; Acute suppurative otitis media of right ear without spontaneous rupture of tympanic membrane, recurrence not specified H66.001 ; Dizziness R42 and Fatigue 780.79 [place] [address] [address] Aug, Major depressive disorder, recurrent episode, moderate [...] sustained remission F10.11 and Tobacco use Z72.0 [facility] [address] [address] Aug, Ingrown right big toenail L60.0 [place] [address] [address] Aug, [facility] [address] [address] Aug, PTSD (post-traumatic stress disorder) F43.10 [place] [address] [address] Aug, Major depressive disorder, recurrent episode, moderate F33.1 ; Generalized anxiety disorder F41.1 and Cannabis abuse F12.10 [facility] [address] [address] Jul, [facility] [address] [address] Jul, [place] [address] [address] Jul, [place] [id number] [place] [address]- [address]78 Jul, Major depressive disorder, recurrent episode, moderate F33.1 ; Generalized anxiety disorder F41.1 and Cannabis abuse F12.10 [place] [id number] [place] [address]8927- 3099 Jul, [place] [id number] [place] [address] Jul, [place] [id number] [place] [address]107- [address]64 Jul, Hyperlipidemia 272.4 [place] [id number] [place] [address] 665952- 7313 Jul, PTSD (post-traumatic stress disorder) F43.10 [place] [id number] [place] [address] 44156- 1262 Jul, Tobacco use Z72.0 ; Alcohol use [...] anxiety disorder F41.1 and Cannabis abuse F12.10 [address] [place] [address]11- 0[address] Jul, [place] [id number] [place] [address] 89025- 6588 Jul, Dysuria R30.0 and Mixed hyperlipidemia E78.2 [place] [id number] [place] [address] 75743- 5785 Jun, Major depressive disorder, recurrent episode, moderate F33.1 ; Generalized anxiety disorder F41.1 and Cannabis abuse F12.[address] [place] [address] 93863- 9399 Jun, [facility] [address] [address] Jun, Generalized anxiety disorder F41.1 ; Major depressive disorder, recurrent episode, moderate F33.1 ; PTSD (post-traumatic stress disorder) F43.10 ; Opioid use disorder, moderate, in sustained remission F11.21 ; Cannabis abuse F12.10 ; Alcohol use disorder, mild, 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 ; Methamphetamine use disorder, severe, 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 ; Cocaine use disorder, moderate, in sustained remission F14.21 and Tobacco use Z72.0 [facility] [address] [place] [id number] [place] [address] 92670- 4515 Jun, Major depressive disorder, recurrent episode, moderate F33.1 ; Generalized anxiety disorder F41.1 and Cannabis abuse F12.10 [facility] [address] [place] [id number] [place] [address] 54259- 2788 Jun, [facility] [address] [place] [id number] [place] [address] 03251- 1790 Jun, [facility] [address] [place] [id number] [place] [address] 56624- 2089 Jun, Major depressive disorder, recurrent episode, moderate F33.1 ; Generalized anxiety disorder F41.1 and Cannabis abuse F12.10 [facility] [address] [place] [id number] [place] [address] [id number] Mar, Dental examination Z01.20 [facility] [address] [place] [id number] [place] [address] [id number] Feb, Dental examination Z01.20 [facility] [address] [place] [id number] [place] [address] 74006- 6197 Mar, [facility] [address] [place] [id number] [place] [address] 04849- 3963 Mar, [facility] [address] [place] [id number] [place] [address] 05307- 0079 Feb, Hyperlipidemia 272.4 and Prediabetes 790.29 [facility] [address] [address]- 2185 Feb, Fatigue 780.79 and Hyperlipidemia 272.4 [facility] [address] [place] [id number] [place] [address] 90680- 4458 Feb, Lumbago 724.2 ; Hyperlipidemia 272.4 ; Insomnia 780.52 and Fatigue 780.79 [facility] [address] [place] [id number] [place] [address] 12128- 5565 Nov, [facility] [address] [place] [id number] [place] [address], [place] [address]- 3373 Nov, [facility] [address] [place] [id number] [place] [address], [place] [address]- 7677 Mar, [facility] [address] [place] [id number] [place] [address] 77420- 2139 Mar, [facility] [address] [place] [id number] [place] [address] 07106- 2370 Jan, [facility] [address] [place] [address]- 6198 Jan, [facility] [address] [place] [id number] [place] [address] 80759- 6437 December, [facility] [address] [place] [address]- 2822 December, [facility] [address] [address]- 6873 Nov, [facility] [address] [address]- 1498 Nov, [facility] [address] [place] [id number] [place] [address], [place] [address]- 2609 Nov, [facility] [address] [address]- 5396 Nov, [facility] [id number] [place] [address] 10250- 6746 Nov, [facility] [place] [facility] [address] [id number] [place] [address]- 4804 Nov, [facility] [place] [facility] [address] [id number] [place] [address]- 9446 Oct, [facility] [place] [facility] [address] [id number] [place] [address]- 9211 Oct, [facility] [place] [facility] [address] [id number] [place] [address]- 8201 Oct, [facility] [place] [facility] [address] [id number] [place] [address]- 4109 Oct, [facility] [place] [facility] [address] [id number] [place] [address]- 6506 Oct, [facility] [place] [facility] [address] [id number] [place] [address]- 1856 Oct, [facility] [place] [facility] [address] [id number] [place] [address]- 6176 Oct, [facility] [place] [facility] [address] [id number] [place] [address]- 9872 Oct, [facility] [place] [facility] [address] [id number] [place] [address]- 4677 Oct, [facility] [place] [facility] [address] [id number] [place] [address]- 7079 Oct, [facility] [place] [facility] [address] [id number] [place] [address]- 7734 Oct, [facility] [place] [facility] [address] [id number] [place] [address]- 4754 Oct, [facility] [place] [facility] [address] [id number] [place] [address]- 8626 Oct, [facility] [place] [facility] [address] [id number] [place] [address]- 7946 24 Sep, 2013 [facility] [place] [facility] [address] [id number] [place] [address]- 4476 24 Sep, 2013 [facility] [place] [facility] [address] [id number] [place] [address]- 8536 20 Sep, 2013 [facility] [place] [facility] [address] [id number] [place] [address]- 2546 20 Sep, 2013 [facility] [place] [facility] [address] [id number] [place] [address]- 3546 20 Sep, 2013 [facility] [place] [facility] [address] [id number] [place] [address]- 254 20 Sep, 2013 [facility] [place] [facility] [address] [id number] [place] [address]- 5646 18 Sep, 2013 [facility] [place] [facility] [address] [facility] [id number] [place] [address]- 8334 18 Sep, 2013 [facility] [place] [facility] [address] [id number] [place] [address]- 3376 14 Sep, 2013 [facility] [place] [facility] [address] [id number] [place] [address]- 4124 14 Sep, 2013 [facility] [place] [facility] [address] [facility] [id number] [place] [address]- 7292 14 Sep, 2013 [facility] [place] [facility] [address] [facility] [id number] [place] [address]- 7517 14 Sep, 2013 [facility] [place] [facility] [address] [id number] [place] [address]- 0809 14 Sep, 2013 [facility] [place] [facility] [address] [id number] [place] [address]- 2547 14 Sep, 2013 [facility] [place] [facility] [address] [id number] [place] [address]- 8006 13 Sep, 2013 [facility] [place] [facility] [address] [facility] [id number] [place] [address]- 3136 13 Sep, 2013 [facility] [place] [facility] [address] [facility] [id number] [place] [address]- 5483 Sep, [facility] [address] [id number] [place] [address]- 2746 Sep, [facility] [place] [facility] [address] [id number] [place] [address]- 8176 Sep, [facility] [place] [address] [id number] [place] [address]- 1906 Sep, [facility] [place] [address] [id number] [place] [address]- 3546 Aug, [facility] [place] [address] [id number] [place] [address]- 6544 Aug, [facility] [place] [facility] [address] [id number] [place] [address]- 1914 Aug, [facility] [address] [id number] [place] [address]- 7002 Aug, [facility] [address] [id number] [place] [address]- 6357 Aug, [facility] [address] [id number] [place] [address]- 9112 Jul, [facility] [address] [facility] [id number] [place] [address]- 6159 Jul, [facility] [place] [facility] [address] [id number] [place] [address]- 2250 Jul, [facility] [address] [id number] [place] [address]- 7061 Jul, [facility] [place] [facility] [address] [id number] [place] [address]- 3825 Jul, [facility] [place] [facility] [address] [id number] [place] [address]- 5831 Jul, [facility] [place] [facility] [address] [facility] [id number] [place] [address]- 9532 Jul, [facility] [place] [facility] [address] [id number] [place] [address]- 7065 Jul, [facility] [place] [facility] [address] [id number] [place] [address]- 5268 Jul, [facility] [place] [facility] [address] [id number] [place] [address]- 4657 Jun, [facility] [place] [facility] [address] [id number] [place] [address]- 4887 Jun, [facility] [place] [facility] [address] [id number] [place] [address]- 0542 Jun, [facility] [place] [facility] [address] [id number] [place] [address]- 2385 Jun, [facility] [place] [facility] [address] [id number] [place] [address]- 0018 Jun, [facility] [place] [facility] [address] [id number] [address]- 5264 Jun, [facility] [place] [facility] [address] [id number] [place] [address]- 3299 Jun, [facility] [place] [facility] [address] [id number] [place] [address]- 6029 Jun, [facility] [place] [facility] [address] [id number] [place] [address]- 5659 Jun, [facility] [place] [facility] [address] [id number] [place] [address]- 7327 Jun, [facility] [place] [facility] [address] [id number] [place] [address]- 3350 May, [facility] [place] [facility] [address] [id number] [place] [address]- 4725 May, [facility] [place] [facility] [address] [id number] [place] [address]- 3885 May, [facility] [place] [facility] [address] [id number] [place] [address]- 1240 May, [facility] [place] [facility] [address] [id number] [place] [address]- 6289 16 May, 2013 [facility] [place] [facility] [address] [id number] [place] [address]- 7913 May, [facility] [place] [facility] [address] [id number] [place] [address]- 5348 May, [facility] [place] [facility] [address] [id number] [place] [address]- 3037 May, [facility] [place] [facility] [address] [id number] [place] [address]- 9496 May, [facility] [place] [facility] [address] [id number] [place] [address]- 2571 Apr, [facility] [place] [facility] [address] [id number] [place] [address]- 9779 16 Apr, 2013 [facility] [place] [facility] [address] [id number] [place] [address]- 1433 Apr, [facility] [place] [facility] [address] [id number] [place] [address]- 4832 Apr, [facility] [place] [facility] [address] [id number] [place] [address]- 9226 Mar, [facility] [place] [facility] [address] [id number] [place] [address]- 0919 Mar, [facility] [place] [facility] [address] [id number] [place] [address]- 2358 Mar, [facility] [place] [facility] [address] [id number] [place] [address]- 5242 Mar, [facility] [place] [facility] [address] [id number] [place] [address]- 8892 Mar, [facility] [place] [facility] [address] [id number] [place] [address]- 6837 Mar, [facility] [place] [facility] [address] [id number] [place] [address]- 4958 Mar, [facility] [place] [address] [id number] [place] [address]- 7113 Feb, [facility] [place] [facility] [address] [id number] [place] [address]- 9510 Feb, [facility] [place] [facility] [address] [id number] [place] [address]- 5005 Feb, [facility] [place] [facility] [address] [id number] [place] [address]- 3436 Feb, [facility] [place] [facility] [address] [id number] [place] [address]- 7055 Feb, [facility] [place] [facility] [address] [id number] [place] [address]- 0996 Feb, [facility] [place] [facility] [address] [id number] [place] [address]- 2332 Feb, [facility] [place] [facility] [address] [id number] [place] [address]- 3378 Feb, [facility] [place] [facility] [address] [id number] [place] [address]- 0125 Feb, [facility] [place] [facility] [address] [id number] [place] [address]- 0703 Feb, [facility] [place] [facility] [address] [id number] [place] [address]- 1462 Feb, [facility] [place] [facility] [address] [id number] [place] [address]- 2167 Jan, [facility] [place] [facility] [address] [id number] [place] [address]- 8736 Jan, [facility] [place] [facility] [address] [id number] [place] [address]- 6675 December, [facility] [place] [facility] [address] [id number] [place] [address]- 9413 December, [facility] [place] [address] [id number] [place] [address]- 7712 Nov, [facility] [place] [facility] [address] [id number] [place] [address]- 3877 Nov, [facility] [place] [facility] [address] [id number] [place] [address]- 7201 Oct, [facility] [place] [facility] [address] [id number] [place] [address]- 1478 Oct, [facility] [place] [facility] [address] [id number] [place] [address]- 6862 Oct, [facility] [place] [facility] [address] [id number] [place] [address]- 1642 Oct, [facility] [place] [facility] [address] [id number] [place] [address]- 6647 Sep, [facility] [place] [facility] [address] [id number] [place] [address]- 0902 Sep, [facility] [place] [facility] [address] [id number] [place] [address]- 9181 Sep, [facility] [place] [facility] [address] [id number] [place] [address]- 2933 Sep, [facility] [place] [facility] [address] [id number] [place] [address]- 9787 Aug, [facility] [place] [facility] [address] [id number] [place] [address]- 2537 Aug, [facility] [place] [facility] [address] [id number] [place] [address]- 6533 Jul, [facility] [place] [facility] [address] [id number] [place] [address]- 7812 Jul, [facility] [place] [facility] [address] [facility] [id number] [place] [address]- 3496 Jul, [facility] [place] [facility] [address] [id number] [place] [address]- 4544 Jul, [facility] [place] [facility] [address] [id number] [place] [address]- 4425 Jul, [facility] [place] [facility] [address] [id number] [place]576 Jul, [facility] [place] [facility] [address] [id number] [place] [address]- 9899 Jun, [facility] [place] [facility] [address] [id number] [place] [address]- 0819 Jun, [facility] [place] [facility] [address] [id number] [place] [address], [place] 5444 Jun, [facility] [place] [facility] [address] [id number] [place] [address]- 0217 Jun, [facility] [place] [facility] [address] [facility] [id number] [place] [address] Jun, [facility] [place] [facility] [address] [id number] [place] [address] May, [facility] [place] [facility] [address] [facility] [id number] [place] [address] May, [facility] [place] [facility] [address] [facility] [id number] [place] [address] May, [facility] [place] [facility] [address] [facility] [id number] [place] [address] May, [facility] [place] [facility] [address] [facility] [id number] [place] [address] May, [facility] [place] [facility] [address] [id number] [place] [address] 2005 May, [facility] [place] [facility] [address] [facility] [id number] [place] [address] May, [facility] [place] [facility] [address] [facility] [id number] [place] [address] 7[address] May, [facility] [place] [facility] [address] [id number] [place] [address] Mar, [facility] [place] [facility] [address] [id number] [place] [address] Mar, [facility] [place] [facility] [address] [id number] [place] [address] Mar, [facility] [place] [facility] [address] [id number] [place] [address] Feb, [facility] [place] [facility] [address] [id number] [place] [address] Feb, [facility] [place] [facility] [address] [id number] [place] [address] Feb, [facility] [place] [facility] [address] [id number] [place] [address] 35[address] Feb, [facility] [place] [facility] [address] [id number] [place] [address] Jan, [facility] [place] [facility] [address] [id number] [place] [address]- 09[address] Jan, [facility] [place] [facility] [address] [id number] [place] [address] Jan, [facility] [place] [facility] [address] [id number] [place] [address] December, [facility] [place] [facility] [address] [id number] [place] [address] Nov, [facility] [place] [facility] [address] [id number] [place] [address] Oct, [facility] [place] [facility] [address] [id number] [place] [address] 12[address] Oct, [facility] [place] [facility] [address] [id number] [place] [address] Oct, [facility] [place] [facility] [address] [id number] [address] Oct, [facility] [address] [id number] [place] [address] Aug, [facility] [place] [facility] [address] [id number] [place] [address] Aug, [facility] [address] [id number] [place] [address] Aug, [facility] [address] [id number] [place] [address] Aug, [facility] [address] [id number] [place] [address] Aug, [facility] [address] [id number] [place] [address] Aug, [facility] [address] [id number] [place] [address] Aug, [facility] [address] [id number] [place] [address] Aug, [facility] [address] [id number] [place] [address] Jul, [facility] [address] [id number] [place] [address] Jun, [facility] [address] [id number] [place] [address] Jun, [facility] [place] [facility] [address] [id number] [place] [address] 31 Jul, 2010 [facility] [place] [facility] [address] [id number] [place] [address] Jul, [facility] [place] [facility] [address] [id number] [place] [address] 22 Jul, 2010 [facility] [place] [facility] [address] [facility] [id number] [place] [address] 14 Jul, 2010 [facility] [place] [facility] [address] [facility] [id number] [place] [address] 14 Jul, 2010 [facility] [address] [facility] [id number] [address] 24 Jun, 2010 [facility] [address] [facility] [id number] [place] [address] May, [facility] [address] [facility] [id number] [place] [address] Mar, [facility] [address] [facility] [id number] [place] [address] Oct, [facility] [address] [facility] [id number] [place] [address] Aug, [facility] [address] [facility] [id number] [address] 15 Jul, 2009 [facility] [address] [id number] [address] Jul, [facility] [address] [id number] [address] Jun, [facility] [address] [id number] [address] Jun, [facility] [address] [id number] [address] May, [facility] [address] [id number] [address] May, [facility] [address] [facility] [id number] [address] Mar, [facility] [address] [facility] [id number] [place] [address] Mar, [facility] [address] [facility] [id number] [address] Oct, IMMUNIZATIONS No Known Immunizations SOCIAL HISTORY Never Assessed REASON FOR VISIT BH f/u, Depression and anxiety. PLAN OF CARE Activity Details Follow Up 1 Week Reason:anxiety and depression VITAL SIGNS MEDICATIONS Unknown Medications RESULTS No Results PROCEDURES Procedure Date Ordered Result Body Site Psychotherapy, patient &/family, 45 minutes, established patient Jul 06, 2017 INSTRUCTIONS MEDICATIONS ADMINISTERED No Known Medications [...] disc replacement L1- L5 - Dr Muhammad ([facility]) Surgical History appendectomy 1983 Surgical History hysterectomy 1993 Surgical History dilatation and curettage Surgical History heart cath- Dr Shaw [address] Meza bowel and intestines 2015 Hospitalization History Hospitalization for surgery only
--- OUTSIDE RECORDS SUMMARY | 2018-04-23 11:39 | XMS REPORT ---
Author Author JOSE EMANUEL Organization [facility] Address [address] [place] [address] Care Team Providers Care Exhibition Carver Name Role Phone ADELFO JOSE Unavailable PROBLEMS Type Condition ICD9-CM Code SLE21-YO Code Onset Dates Condition Status SNOMED Code Problem Generalized anxiety disorder F41.1 Active 34308482 Problem Cannabis abuse F12.10 Active 72063027 Problem Major depressive disorder, recurrent episode, moderate F33.1 Active 924151544 Problem Tobacco use Z72.0 Active 426120178 Problem Diarrhea 787.91 Active 80371470 Problem PTSD (post-traumatic stress disorder) F43.10 Active 31591091 Problem Opioid use disorder, moderate, in sustained remission F11.21 Active 98120862 Problem Alcohol use disorder, mild, 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 Active 13204976 Problem Cocaine use disorder, moderate, in sustained remission F14.21 Active 61107332 Problem Methamphetamine use disorder, severe, 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 Active 23522774 Problem Thoracic or lumbosacral neuritis or radiculitis, unspecified 724.4 Active 372188603 Problem Hematuria, unspecified 599.70 Active 81229869 Problem Spasm of muscle 728.85 Active 16528509 Problem Lumbago 724.2 Active 739845008 Problem Insomnia 780.52 Active 720026601 Problem Hyperlipidemia 272.4 Active 09096658 Problem Major depressive disorder, recurrent episode, severe, without mention of psychotic behavior 296.33 Active 18243286 Problem Prediabetes 790.29 Active 7456162 Problem Adjustment disorder with depressed mood 309.0 Active 36202424 Problem Mixed hyperlipidemia E78.2 Active 525678649 ALLERGIES No Information ENCOUNTERS Encounter Location Date Diagnosis [facility] [address] [facility] [id number], [place] [address] Jan, [facility] [address] [facility] [id number], [place] [address] Jan, [facility] [address], [place] [address] December, Major depressive disorder, recurrent episode, moderate F33.1 [facility] [address], [place] [address] December, [facility] [address] [place] [address]- [address]12 December, Major depressive disorder, recurrent episode, moderate [...] use Z72.0 [facility] [address] [place] [address]- 4044 Nov, [facility] [id number] [place] [address] Nov, [facility] [address] [place] [address]- 3680 Nov, Wellness examination Z00.00 ; Encounter for immunization Z23 ; Screening for osteoporosis Z13.820 ; Screening for breast cancer Z12.31 and Left breast lump N63.20 [facility] [address] [place] [address] [id number] Oct, Dental examination Z01.20 [facility] [address] [place] [address]684[address] 7370 Oct, [facility] [address] [place] [address]271- 2950 Oct, [facility] [id number] [place] [address] 28096- 9502 Sep, [facility] [address] [address] 15 Sep, 2017 [facility] [address] [address] 14 Sep, 2017 Left otitis media with effusion H65.92 ; Acute suppurative otitis media of right ear without spontaneous rupture of tympanic membrane, recurrence not specified H66.001 ; Dizziness R42 and Fatigue 780.79 [place] [address] [address] Aug, Major depressive disorder, recurrent episode, moderate [...] sustained remission F10.11 and Tobacco use Z72.0 [facility] [address] [address] Aug, Ingrown right big toenail L60.0 [place] [address] [address]697 Aug, [facility] [address] [address] Aug, PTSD (post-traumatic stress disorder) F43.10 [place] [address] [address]84 Aug, Major depressive disorder, recurrent episode, moderate F33.1 ; Generalized anxiety disorder F41.1 and Cannabis abuse F12.10 [facility] [address] [address] Jul, [facility] [address] [address] Jul, [place] [address] [address] Jul, [place] [address] [place] [address]108- 8644 Jul, Major depressive disorder, recurrent episode, moderate F33.1 ; Generalized anxiety disorder F41.1 and Cannabis abuse F12.10 [place] [address] [place] [address]- 480[address] Jul, [place] [id number] [place] [address] [address] Jul, [place] [id number] [place] [address]260- 2190 Jul, Hyperlipidemia 272.4 [place] [id number] [place] [address] 454186- 2014 Jul, PTSD (post-traumatic stress disorder) F43.10 [place] [id number] [place] [address]22- 8747 Jul, Tobacco use Z72.0 ; Alcohol use [...] anxiety disorder F41.1 and Cannabis abuse F12.[address] [place] [address] 65473- 7077 Jul, [place] [id number] [place] [address] 6[address]- 7700 Jul, Dysuria R30.0 and Mixed hyperlipidemia E78.2 [place] [id number] [place] [address] 32316- 6642 Jun, Major depressive disorder, recurrent episode, moderate F33.1 ; Generalized anxiety disorder F41.1 and Cannabis abuse F12.[address] [place] [address] 68997- 0849 Jun, [facility] [address], [place] [address] Jun, Generalized anxiety disorder F41.1 ; Major [...] use Z72.0 [facility] [address] [place] [id number] [place] [address] 00440- 4822 Jun, Major depressive disorder, recurrent episode, moderate F33.1 ; Generalized anxiety disorder F41.1 and Cannabis abuse F12.10 [facility] [address] [place] [id number] [place] [address] 48838- 1387 Jun, [facility] [address] [place] [id number] [place] [address] 89473- 4669 Jun, [facility] [address] [place] [id number] [place] [address] 53311- 8305 Jun, Major depressive disorder, recurrent episode, moderate F33.1 ; Generalized anxiety disorder F41.1 and Cannabis abuse F12.10 [facility] [address] [place] [id number] [place] [address] [id number] Mar, Dental examination Z01.20 [facility] [address] [place] [id number] [place] [address] [id number] Feb, Dental examination Z01.20 [facility] [address] [place] [id number] [place] [address] 95919- 0661 Mar, [facility] [address] [place] [id number] [place] [address] 15228- 7751 Mar, [facility] [address] [place] [id number] [place] [address] 74377- 3000 Feb, Hyperlipidemia 272.4 and Prediabetes 790.29 [facility] [address], [place] [address]- 7897 Feb, Fatigue 780.79 and Hyperlipidemia 272.4 [facility] [address] [place] [id number] [place] [address] 27474- 4849 Feb, Lumbago 724.2 ; Hyperlipidemia 272.4 ; Insomnia 780.52 and Fatigue 780.79 [facility] [address] [place] [id number] [place] [address] 65001- 2277 Nov, [facility] [address] [place] [id number] [place] [address], [place] [address]- 1239 Nov, [facility] [address] [place] [id number] [place] [address], [place] [address]- 7130 Mar, [facility] [address] [place] [id number] [place] [address] 92424- 2273 Mar, [facility] [address] [place] [id number] [place] [address] 88855- 2216 Jan, [facility] [address] [place] [address]- 7760 Jan, [facility] [address] [place] [id number] [place] [address] 28893- 7914 December, [facility] [address] [place] [address]- 8671 December, [facility] [address], [place] [address]- 8138 Nov, [facility] [address], [place] [address]- 6419 Nov, [facility] [address] [place] [id number] [place] [address], [place] [address]- 4649 Nov, [facility] [address], [place] [address]- 2143 Nov, [facility] [address] [place] [address] 21349- 0296 Nov, [facility] [place] [facility] [address] [id number] [place] [address]- 4486 Nov, [facility] [place] [facility] [address] [id number] [place] [address]- 6376 Oct, [facility] [place] [facility] [address] [id number] [place] [address]- 6260 Oct, [facility] [place] [facility] [address] [id number] [place] [address]- 7272 Oct, [facility] [place] [facility] [address] [id number] [place] [address]- 1194 Oct, [facility] [place] [facility] [address] [id number] [place] [address]- 2144 Oct, [facility] [place] [facility] [address] [id number] [place] [address]- 0644 Oct, [facility] [place] [facility] [address] [id number] [place] [address]- 6373 Oct, [facility] [place] [facility] [address] [id number] [place] [address]- 2864 Oct, [facility] [place] [facility] [address] [id number] [place] [address]- 3907 Oct, [facility] [place] [facility] [address] [id number] [place] [address]- 5967 Oct, [facility] [place] [facility] [address] [id number] [place] [address]- 7117 Oct, [facility] [place] [facility] [address] [id number] [place] [address]- 9494 Oct, [facility] [place] [facility] [address] [id number] [place] [address]- 2108 Oct, [facility] [place] [facility] [address] [id number] [place] [address]- 3412 24 Sep, 2013 [facility] [place] [facility] [address] [id number] [place] [address]- 4018 24 Sep, 2013 [facility] [place] [facility] [address] [id number] [place] [address]- 2926 20 Sep, 2013 [facility] [place] [facility] [address] [id number] [place] [address]- 2546 20 Sep, 2013 [facility] [place] [facility] [address] [id number] [place] [address]- 5206 20 Sep, 2013 [facility] [place] [facility] [address] [id number] [place] [address]- 2543 20 Sep, 2013 [facility] [place] [facility] [address] [id number] [place] [address]- 4636 18 Sep, 2013 [facility] [place] [facility] [address] [facility] [id number] [place] [address]- 8549 18 Sep, 2013 [facility] [place] [facility] [address] [id number] [place] [address]- 8239 14 Sep, 2013 [facility] [place] [facility] [address] [id number] [place] [address]- 9508 14 Sep, 2013 [facility] [place] [facility] [address] [facility] [id number] [place] [address]- 6294 14 Sep, 2013 [facility] [place] [facility] [address] [facility] [id number] [place] [address]- 8029 14 Sep, 2013 [facility] [place] [facility] [address] [id number] [place] [address]- 8245 14 Sep, 2013 [facility] [place] [facility] [address] [id number] [place] [address]- 254 14 Sep, 2013 [facility] [place] [facility] [address] [id number] [place] [address]- 0866 13 Sep, 2013 [facility] [place] [facility] [address] [facility] [id number] [place] [address]- 2506 13 Sep, 2013 [facility] [place] [facility] [address] [facility] [id number] [place] [address]- 4878 Sep, [facility] [address] [id number] [place] [address]- 0876 Sep, [facility] [place] [facility] [address] [id number] [place] [address]- 0616 Sep, [facility] [place] [facility] [address] [id number] [place] [address]- 2726 Sep, [facility] [place] [facility] [address] [id number] [place] [address]- 6079 Aug, [facility] [place] [facility] [address] [id number] [place] [address]- 5996 Aug, [facility] [place] [facility] [address] [id number] [place] [address]- 9465 Aug, [facility] [address] [id number] [place] [address]- 2297 Aug, [facility] [address] [id number] [place] [address]- 6635 Aug, [facility] [address] [id number] [place] [address]- 8009 Jul, [facility] [address] [facility] [id number] [place] [address]- 9539 Jul, [facility] [place] [facility] [address] [id number] [place] [address]- 3348 Jul, [facility] [address] [id number] [place] [address]- 6402 Jul, [facility] [place] [facility] [address] [id number] [place] [address]- 1641 Jul, [facility] [place] [facility] [address] [id number] [place] [address]- 6674 Jul, [facility] [place] [facility] [address] [facility] [id number] [place] [address]- 3437 Jul, [facility] [place] [facility] [address] [id number] [place] [address]- 5775 Jul, [facility] [place] [facility] [address] [id number] [place] [address]- 9311 Jul, [facility] [place] [facility] [address] [id number] [place] [address]- 3282 Jun, [facility] [place] [facility] [address] [id number] [place] [address]- 5431 Jun, [facility] [place] [facility] [address] [id number] [place] [address]- 8271 Jun, [facility] [place] [facility] [address] [id number] [place] [address]- 9103 Jun, [facility] [place] [facility] [address] [id number] [place] [address]- 0726 Jun, [facility] [place] [facility] [address] [id number], [place] [address]- 1605 Jun, [facility] [place] [facility] [address] [id number] [place] [address]- 6902 Jun, [facility] [place] [facility] [address] [id number], [place] [address]- 2888 Jun, [facility] [place] [facility] [address] [id number], [place] [address]- 6990 Jun, [facility] [place] [facility] [address] [id number], [place] [address]- 1611 Jun, [facility] [place] [facility] [address] [id number], [place] [address]- 0138 May, [facility] [place] [facility] [address] [id number], [place] [address]- 1459 May, [facility] [place] [facility] [address] [id number], [place] [address]- 3425 May, [facility] [place] [facility] [address] [id number], [place] [address]- 9385 May, [facility] [place] [facility] [address] [id number] [place] [address]- 5647 16 May, 2013 [facility] [place] [facility] [address] [id number] [place] [address]- 0428 May, [facility] [place] [facility] [address] [id number] [place] [address]- 1610 May, [facility] [place] [facility] [address] [id number] [place] [address]- 3956 May, [facility] [place] [facility] [address] [id number] [place] [address]- 4890 May, [facility] [place] [facility] [address] [id number] [place] [address]- 2844 Apr, [facility] [place] [facility] [address] [id number] [place] [address]- 1867 16 Apr, 2013 [facility] [place] [facility] [address] [id number] [place] [address]- 2533 Apr, [facility] [place] [facility] [address] [id number] [place] [address]- 3629 Apr, [facility] [place] [facility] [address] [id number] [place] [address]- 7161 Mar, [facility] [place] [facility] [address] [id number] [place] [address]- 1309 Mar, [facility] [place] [facility] [address] [id number] [place] [address]- 4053 Mar, [facility] [place] [facility] [address] [id number] [place] [address]- 5751 Mar, [facility] [place] [facility] [address] [id number] [place] [address]- 9916 Mar, [facility] [place] [facility] [address] [id number] [place] [address]- 7185 Mar, [facility] [place] [facility] [address] [id number] [place] [address]- 0932 Mar, [facility] [place] [facility] [address] [id number] [place] [address]- 9003 Feb, [facility] [place] [facility] [address] [id number] [place] [address]- 4900 Feb, [facility] [place] [facility] [address] [id number] [place] [address]- 7348 Feb, [facility] [place] [facility] [address] [id number] [place] [address]- 6762 Feb, [facility] [place] [facility] [address] [id number] [place] [address]- 0130 Feb, [facility] [place] [facility] [address] [id number] [place] [address]- 2941 Feb, [facility] [place] [facility] [address] [id number] [place] [address]- 9593 Feb, [facility] [place] [facility] [address] [id number] [place] [address]- 6669 Feb, [facility] [place] [facility] [address] [id number] [place] [address]- 2636 Feb, [facility] [place] [facility] [address] [id number] [place] [address]- 6306 Feb, [facility] [place] [facility] [address] [id number] [place] [address]- 0484 Feb, [facility] [place] [facility] [address] [id number] [place] [address]- 3582 Jan, [facility] [place] [facility] [address] [id number] [place] [address]- 5194 Jan, [facility] [place] [facility] [address] [id number] [place] [address]- 3244 December, [facility] [place] [facility] [address] [id number] [place] [address]- 1225 December, [facility] [place] [facility] [address] [id number] [place] [address]- 3385 Nov, [facility] [place] [facility] [address] [id number] [place] [address]- 0319 Nov, [facility] [place] [facility] [address] [id number] [place] [address]- 4881 Oct, [facility] [place] [facility] [address] [id number] [place] [address]- 6110 Oct, [facility] [place] [facility] [address] [id number] [place] [address]- 4304 Oct, [facility] [place] [facility] [address] [id number] [place] [address]- 8291 Oct, [facility] [place] [facility] [address] [id number] [place] [address]- 9232 Sep, [facility] [place] [facility] [address] [id number] [place] [address]- 7330 Sep, [facility] [place] [facility] [address] [id number] [place] [address]- 1361 Sep, [facility] [place] [facility] [address] [id number] [place] [address]- 8067 Sep, [facility] [place] [facility] [address] [id number] [place] [address]- 8449 Aug, [facility] [place] [facility] [address] [id number] [place] [address]- 0037 Aug, [facility] [place] [facility] [address] [id number] [place] [address]- 3571 Jul, [facility] [place] [facility] [address] [id number] [place] [address]- 3526 Jul, [facility] [place] [facility] [address] [facility] [id number] [place] [address]- 2221 Jul, [facility] [place] [facility] [address] [id number] [place] [address]- 0866 Jul, [facility] [place] [facility] [address] [id number] [place] [address]- 3834 Jul, [facility] [place] [facility] [address] [id number] [place] 3596 Jul, [facility] [place] [facility] [address] [id number] [place] [address]- 7838 Jun, [facility] [place] [facility] [address] [id number] [place] [address]- 2382 Jun, [facility] [place] [facility] [address] [id number] [place] [address], [place] 3095 Jun, [facility] [place] [facility] [address] [id number] [place] [address]- 0440 Jun, [facility] [place] [facility] [address] [facility] [id number] [place] [address]- 0433 Jun, [facility] [place] [facility] [address] [id number] [place] [address] May, [facility] [place] [facility] [address] [facility] [id number] [place] [address] May, [facility] [place] [facility] [address] [facility] [id number] [place] [address] May, [facility] [place] [facility] [address] [facility] [id number] [place] [address] May, [facility] [place] [facility] [address] [facility] [id number] [place] [address]- [address]562 May, [facility] [place] [facility] [address] [id number] [place] [address] May, [facility] [place] [facility] [address] [facility] [id number] [place] [address] May, [facility] [place] [facility] [address] [facility] [id number] [place] [address]- [address] May, [facility] [place] [facility] [address] [id number] [place] [address] Mar, [facility] [place] [facility] [address] [id number] [place] [address]- [address] Mar, [facility] [place] [facility] [address] [id number] [place] [address]- [address] Mar, [facility] [place] [facility] [address] [id number] [place] [address]- [address] Feb, [facility] [place] [facility] [address] [id number] [place] [address]- [address] Feb, [facility] [place] [facility] [address] [id number] [place] [address]- 1346 Feb, [facility] [place] [facility] [address] [id number] [place] [address]- 28[address] Feb, [facility] [place] [facility] [address] [id number] [place] [address]- [address] Jan, [facility] [place] [facility] [address] [id number] [place] [address]- [address] Jan, [facility] [place] [facility] [address] [id number] [place] [address]- [address]191 Jan, [facility] [place] [facility] [address] [id number] [place] [address]- [address] December, [facility] [place] [facility] [address] [id number] [place] [address]- [address] Nov, [facility] [place] [facility] [address] [id number] [place] [address]- [address] Oct, [facility] [place] [facility] [address] [id number] [place] [address]- [address]66 Oct, [facility] [place] [facility] [address] [id number] [place] [address]- [address] Oct, [facility] [place] [facility] [address] [id number], [place] [address] Oct, [facility] [address] [id number] [place] [address] Aug, [facility] [place] [facility] [address] [id number] [place] [address]- [address] Aug, [facility] [address] [id number] [place] [address]- [address] Aug, [facility] [address] [id number] [place] [address]- [address] Aug, [facility] [address] [id number] [place] [address]- 1376 Aug, [facility] [address] [id number] [place] [address]- [address] Aug, [facility] [address] [id number] [place] [address]- [address]265 Aug, [facility] [address] [id number] [place] [address]- [address]60 Aug, [facility] [address] [id number] [place] [address]- [address] Jul, [facility] [address] [id number] [place] [address]- [address] Jun, [facility] [address] [id number] [place] [address] Jun, [facility] [place] [facility] [address] [id number] [place] [address]- [address] 31 Jul, 2010 [facility] [place] [facility] [address] [id number] [place] [address]- [address] Jul, [facility] [place] [facility] [address] [id number] [place] [address]- [address] 22 Jul, 2010 [facility] [place] [facility] [address] [facility] [id number] [place] [address]- [address] 14 Jul, 2010 [facility] [place] [facility] [address] [facility] [id number], [place] [address]- [address] 14 Jul, 2010 [facility] [address] [facility] [id number], [place] [address]- [address] 24 Jun, 2010 [facility] [address] [facility] [id number] [place] [address]- [address] May, [facility] [address] [facility] [id number], [place] [address] Mar, [facility] [address] [facility] [id number] [place] [address]- [address] Oct, [facility] [address] [facility] [id number] [place] [address]- [address] Aug, [facility] [address] [facility] [id number][place] [address] 15 Jul, 2009 [facility] [address] [id number], [place] [address] Jul, [facility] [address] [id number], [place] [address] Jun, [facility] [address] [id number] [address] Jun, [facility] [address] [id number] [address] May, [facility] [id number], [place] [address] May, [facility] [address] [facility] [id number], [place] [address] Mar, [facility] [id number], [place] [address] Mar, [facility] [address] [facility] [id number], [place] [address] Oct, IMMUNIZATIONS No Known Immunizations SOCIAL HISTORY Never Assessed REASON FOR VISIT BH f/u, Depression and anxiety. PLAN OF CARE Activity Details Follow Up Next available Reason:depression and anxiety VITAL SIGNS MEDICATIONS Unknown Medications RESULTS No Results PROCEDURES Procedure Date Ordered Result Body Site Psychotherapy, patient &/family, 45 minutes, established patient Jun 19, 2017 INSTRUCTIONS MEDICATIONS ADMINISTERED No Known Medications [...] disc replacement L1- L5 - Dr Muhammad ([place]) Surgical History appendectomy 1983 Surgical History hysterectomy 1993 Surgical History dilatation and curettage Surgical History heart cath- Dr Shaw [address] Meza bowel and intestines 2015 Hospitalization History Hospitalization for surgery only
--- OUTSIDE RECORDS SUMMARY | 2018-04-23 11:40 | XMS REPORT ---
Author Author RAUL VASQUEZ [facility] Address [address] [place] [address] Care Team Providers Care Enterprise Mobility Architect Name Role Phone JOSEVASQUEZ ZUNIGA Unavailable PROBLEMS Type Condition ICD9-CM Code EMP24-BH Code Onset Dates Condition Status SNOMED Code Problem Major depressive disorder, recurrent episode, moderate F33.1 Active 088482841 Problem PTSD (post-traumatic stress disorder) F43.10 Active 77671943 Problem Cannabis abuse F12.10 Active 50478669 Problem GERD with esophagitis K21.0 Active 040847102 Problem Spasm of muscle 728.85 Active 61298380 Problem Cocaine use disorder, moderate, in sustained remission F14.21 Active 98012799 Problem Diarrhea 787.91 Active 36719122 Problem Alcohol use disorder, mild, 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 Active 02044241 Problem Tobacco use Z72.0 Active 157693221 Problem Methamphetamine use disorder, severe, 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2 Active 467919960 Problem Insomnia 780.52 Active 693907487 Problem Generalized anxiety disorder F41.1 Active 10764623 ALLERGIES No Information ENCOUNTERS Encounter Location Date Diagnosis [facility] [address] [address] Feb, [facility] [address] [address] Jan, Cocaine use disorder, moderate, in sustained remission F14.21 [place] [id number] [place] [address] 33676- 5922 Jan, Cocaine use disorder, moderate, in sustained [...] Major depressive disorder, recurrent episode, moderate F33.1 [id number] [place] [address] 00452- 2458 Jan, Dysuria R30.0 and GERD with esophagitis K21.0 [id number] [place] [address]11- 1991 December, Major depressive disorder, recurrent episode, moderate F33.1 [place] [id number] [place] [address] 75932- 2093 December, [id number] [place] [address] 38805- 8469 December, Major depressive disorder, recurrent episode, moderate [...] sustained remission F10.11 and Tobacco use Z72.0 [place] [address] [address] Nov, [facility] [address] [id number] [address] Nov, [place] [address] [address] 04 Nov, 2017 Wellness examination Z00.00 ; Encounter for immunization Z23 ; Screening for osteoporosis Z13.820 ; Screening for breast cancer Z12.31 and Left breast lump N63.20 [facility] [address] [id number] Oct, Dental examination Z01.20 [facility] [address] [address] Oct, [place] [address] [place] [id number] [place] [address] 71287- 7204 08 Oct, 2017 [place] [address] [place] [address] [id number] [place] [address] 04563- 2289 16 Sep, 2017 [place] [address] [place] [address] [id number] [place] [address] 97258- 7611 15 Sep, 2017 [facility] [address] [place] [address] [id number] [place] [address] 29635- 4855 14 Sep, 2017 Left otitis media with effusion H65.92 ; Acute suppurative otitis media of right ear without spontaneous rupture of tympanic membrane, recurrence not specified H66.001 ; Dizziness R42 and Fatigue 780.79 [place] [id number] [place] [address] 12406- 5796 Aug, Major depressive disorder, recurrent episode, moderate [...] F10.11 and Tobacco use Z72.0 [facility] [address] [address] Aug, Ingrown right big toenail L60.0 [facility] [address] [place] [address] [id number] [place] [address] [place] [address] Aug, [facility] [id number] [place] [address] 39342- 9637 Aug, PTSD (post-traumatic stress disorder) F43.10 [facility] [id number] [place] [address] 02831- 9106 Aug, Major depressive disorder, recurrent episode, moderate F33.1 ; Generalized anxiety disorder F41.1 and Cannabis abuse F12.10 [facility] [address] [place] [id number] [place] [address] 77642- 7869 Jul, [facility] [address] [place] [address] [id number] [place] [address] 96248- 5256 Jul, [facility] [address] [place] [address] [id number] [place] [address] 55698- 8310 Jul, [facility] [address] [place] [address] [id number] [place] [address] 24716- 1602 Jul, Major depressive disorder, recurrent episode, moderate F33.1 ; Generalized anxiety disorder F41.1 and Cannabis abuse F12.10 [facility] [address] [place] [address] [id number] [place] [address] 21413- 5821 Jul, [facility] [address] [place] [address] [id number] [place] [address] 90239- 2833 Jul, [place] [id number] [place] [address] 38664- 4351 Jul, Hyperlipidemia 272.4 [facility] [id number] [place] [address] 15246- 4298 Jul, PTSD (post-traumatic stress disorder) F43.10 [facility] [address] [address] Jul, Tobacco use Z72.0 ; Alcohol use [...] anxiety disorder F41.1 and Cannabis abuse F12.10 [place] [id number] [place] [address] 25047- 0038 Jul, [place] [address] [place] [id number] [place] [address] 12312- 7981 Jul, Dysuria R30.0 and Mixed hyperlipidemia E78.2 [place] [id number] [place] [address] 94580- 5491 Jun, Major depressive disorder, recurrent episode, moderate F33.1 ; Generalized anxiety disorder F41.1 and Cannabis abuse F12.10 [place] [address] [place] [address] [id number] [place] [address] 29471- 3485 Jun, [place] [id number] [place] [address] 83449- 0574 Jun, Generalized anxiety disorder F41.1 ; Major depressive disorder, recurrent episode, moderate F33.1 ; PTSD (post-traumatic stress disorder) F43.10 ; Opioid use disorder, moderate, in sustained remission F11.21 ; Cannabis abuse F12.10 ; Alcohol use disorder, mild, 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 ; Methamphetamine use disorder, severe, 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 ; Cocaine use disorder, moderate, in sustained remission F14.21 and Tobacco use Z72.0 [place] [id number] [place] [address] 61850- 9782 Jun, Major depressive disorder, recurrent episode, moderate F33.1 ; Generalized anxiety disorder F41.1 and Cannabis abuse F12.10 [place] [address] [place] [id number] [place] [address] 20358- 7069 Jun, [place] [id number] [place] [address] 01114- 0242 Jun, [place] [id number] [place] [address] 00498- 0612 Jun, Major depressive disorder, recurrent episode, moderate F33.1 ; Generalized anxiety disorder F41.1 and Cannabis abuse F12.10 [facility] [address] [place] [id number] [place] [address] [id number] Mar, Dental examination Z01.20 [facility] [address] [place] [id number] [place] [address] [id number] Feb, Dental examination Z01.20 [facility] [address] [address]- 6719 Mar, [facility] [address] 78477- 0473 Mar, [facility] [address] 33475- 6452 Feb, Hyperlipidemia 272.4 and Prediabetes 790.29 [facility] [address] 52932- 2560 Feb, Fatigue 780.79 and Hyperlipidemia 272.4 [facility] [address] [place] [address] [id number] [place] [address] 56608- 0664 Feb, Lumbago 724.2 ; Hyperlipidemia 272.4 ; Insomnia 780.52 and Fatigue 780.79 [facility] [address] [place] [address] [id number] [place] [address] 83793- 2238 Nov, [facility] [address] [place] [address] [id number] [place] [address] 32748- 6765 Nov, [facility] [address] [place] [address] [id number] [place] [address] 95913- 8017 Mar, [facility] [address] [place] [address] [id number] [place] [address] 70580- 5939 Mar, [facility] [address] [place] [address] [id number] [place] [address] 708252- 3409 Jan, [facility] [address] [place] [address] [id number] [place] [address] 75667- 2266 Jan, [facility] [place] [facility] [address] [id number] [place] [address]- 1884 December, [facility] [place] [facility] [address] [id number] [place] [address]- 9238 December, [facility] [place] [facility] [address] [id number] [place] [address]- 6523 Nov, [facility] [place] [facility] [address] [id number] [place] [address]- 3737 Nov, [facility] [place] [facility] [address] [id number] [place] [address]- 6479 Nov, [facility] [place] [facility] [address] [id number] [place] [address]- 7150 Nov, [facility] [place] [facility] [address] [id number] [place] [address]- 4932 Nov, [facility] [place] [facility] [address] [id number] [place] [address]- 4056 Nov, [facility] [place] [facility] [address] [id number] [place] [address]- 2967 Oct, [facility] [place] [facility] [address] [id number] [place] [address]- 0804 31 Oct, 2013 [facility] [place] [facility] [address] [id number] [place] [address]- 5787 Oct, [facility] [place] [facility] [address] [id number] [place] [address]- 6923 20 Oct, 2013 [facility] [place] [facility] [address] [id number] [place] [address]- 0569 19 Oct, 2013 [facility] [place] [facility] [address] [id number] [place] [address]- 8568 19 Oct, 2013 [facility] [place] [facility] [address] [id number] [place] [address]- 6005 12 Oct, 2013 [facility] [place] [facility] [address] [id number] [address]- 3575 Oct, [facility] [place] [facility] [address] [id number] [place] [address]- 6692 Oct, [facility] [place] [facility] [address] [id number] [place] [address]- 9314 Oct, [facility] [place] [facility] [address] [facility] [id number] [place] [address]- 9286 Oct, [facility] [place] [facility] [address] [id number] [place] [address]- 4342 Oct, [facility] [place] [facility] [address] [id number] [place] [address]- 3883 Oct, [facility] [place] [facility] [address] [facility] [id number] [place] [address]- 8017 24 Sep, 2013 [facility] [place] [facility] [address] [facility] [id number] [place] [address]- 7658 24 Sep, 2013 [facility] [place] [facility] [address] [facility] [id number] [place] [address]- 7125 Sep, [facility] [place] [facility] [address] [facility] [id number] [place] [address]- 0044 Sep, [facility] [place] [facility] [address] [facility] [id number] [place] [address]- 9759 Sep, [facility] [place] [facility] [address] [facility] [id number] [place] [address]- 8715 Sep, [facility] [place] [facility] [address] [facility] [id number] [address]- 8562 18 Sep, 2013 [facility] [place] [facility] [address] [facility] [id number] [place] [address]- 8845 18 Sep, 2013 [facility] [place] [facility] [address] [facility] [id number] [address]- 5661 14 Sep, 2013 [facility] [place] [facility] [address] [facility] [id number], [place] [address]- 7794 14 Sep, 2013 [facility] [place] [facility] [address] [id number] [place] [address]- 8377 14 Sep, 2013 [facility] [place] [facility] [address] [id number] [place] [address]- 6626 14 Sep, 2013 [facility] [place] [facility] [address] [id number] [place] [address]- 6252 14 Sep, 2013 [facility] [place] [facility] [address] [id number] [place] [address]- 9410 Sep, [facility] [place] [facility] [address] [id number] [place] [address]- 0256 Sep, [facility] [place] [facility] [address] [id number] [place] [address]- 4207 Sep, [facility] [place] [facility] [address] [id number] [place] [address]- 5533 Sep, [facility] [place] [facility] [address] [id number] [place] [address]- 0209 Sep, [facility] [place] [facility] [address] [id number] [place] [address]- 0356 Sep, [facility] [place] [facility] [address] [id number] [place] [address]- 4277 Sep, [facility] [place] [facility] [address] [id number] [place] [address]- 4216 Aug, [facility] [place] [facility] [address] [id number] [place] [address]- 2640 Aug, [facility] [place] [facility] [address] [id number] [place] [address]- 5607 Aug, [facility] [place] [facility] [address] [id number] [place] [address]- 6823 Aug, [facility] [place] [facility] [address] [id number] [place] [address]- 2154 Aug, [facility] [place] [facility] [address] [id number] [place] [address]- 7606 Jul, [facility] [address] [id number] [place] [address]- 8389 Jul, [facility] [address] [id number] [place] [address]- 4270 Jul, [facility] [address] [id number] [place]05 Jul, [facility] [address] [id number] [place] [address]- 8582 Jul, [facility] [address] [id number] [place] [address]- 3626 Jul, [facility] [address] [facility] [id number] [place] [address]12 Jul, [facility] [address] [facility] [id number] [place] [address]- 7415 Jul, [facility] [address] [id number] [place] [address]- 9237 Jul, [facility] [address] [facility] [id number] [place] [address]- 2373 Jun, [facility] [address] [facility] [id number] [place] [address]- 2302 Jun, [facility] [address] [id number] [place] [address]- 2626 Jun, [facility] [address] [id number] [place] [address]- 6468 Jun, [facility] [place] [facility] [address] [id number] [place] [address]- 3080 Jun, [facility] [address] [facility] [id number] [place] [address]- 1765 Jun, [facility] [address] [facility] [id number] [place] [address]- 7348 Jun, [facility] [place] [facility] [address] [id number] [place] [address]- 6919 Jun, [facility] [place] [facility] [address] [id number] [place] [address]- 9736 Jun, [facility] [place] [facility] [address] [id number] [place] [address]- 9881 Jun, [facility] [place] [facility] [address] [id number] [place] [address]- 1416 May, [facility] [place] [facility] [address] [id number] [place] [address]- 3394 May, [facility] [place] [facility] [address] [id number] [place] [address]- 7407 May, [facility] [place] [facility] [address] [id number] [place] [address]- 3281 May, [facility] [place] [facility] [address] [id number], [place] [address]- 7800 May, [facility] [place] [facility] [address] [id number] [place] [address]- 0485 May, [facility] [place] [facility] [address] [id number], [place] [address]- 7932 May, [facility] [place] [facility] [address] [id number], [place] [address]- 2953 May, [facility] [place] [facility] [address] [id number], [place] [address]- 2157 May, [facility] [place] [facility] [address] [id number], [place] [address]- 1662 26 Apr, 2013 [facility] [place] [facility] [address] [id number], [place] [address]- 0742 16 Apr, 2013 [facility] [place] [facility] [address] [id number], [place] [address]- 0284 12 Apr, 2013 [facility] [place] [facility] [address] [id number], [place] [address]- 5572 Apr, [facility] [address] [id number] [place] [address]- 4459 Mar, [facility] [place] [facility] [address] [id number] [place] [address]- 4283 Mar, [facility] [place] [facility] [address] [id number] [place] [address]- 3572 Mar, [facility] [place] [facility] [address] [id number] [place] [address]- 0675 Mar, [facility] [place] [facility] [address] [id number] [place] [address]- 8662 Mar, [facility] [place] [facility] [address] [id number] [place] [address]- 7473 Mar, [facility] [place] [facility] [address] [id number] [place] [address]- 3178 Mar, [facility] [place] [facility] [address] [id number] [place] [address]- 9938 Feb, [facility] [place] [facility] [address] [id number] [place] [address]- 3912 Feb, [facility] [place] [facility] [address] [id number] [place] [address]- 3555 Feb, [facility] [place] [facility] [address] [id number] [place] [address]- 2656 Feb, [facility] [place] [facility] [address] [id number] [place] [address]- 4190 Feb, [facility] [place] [facility] [address] [id number] [place] [address]- 1498 Feb, [facility] [place] [facility] [address] [id number] [place] [address]- 0048 Feb, [facility] [place] [facility] [address] [id number] [place] [address]- 4739 Feb, [facility] [place] [facility] [address] [id number] [place] [address]- 2546 17 Feb, 2013 [facility] [address] [id number] [place] [address]- 6212 Feb, [facility] [place] [facility] [address] [id number] [place] [address]- 2546 Feb, [facility] [address] [id number] [place] [address]- 8027 Jan, [facility] [place] [facility] [address] [id number] [place] [address]- 7976 Jan, [facility] [address] [id number] [place] [address]- 5753 December, [facility] [place] [facility] [address] [id number] [place] [address]- 2686 December, [facility] [address] [id number] [place] [address]- 5790 Nov, [facility] [address] [id number] [place] [address]- 8961 Nov, [facility] [address] [id number] [place] [address]- 8076 Oct, [facility] [address] [id number] [place] [address]- 9290 Oct, [facility] [place] [facility] [address] [id number] [place] [address]- 9069 Oct, [facility] [place] [facility] [address] [id number] [place] [address]- 2509 Oct, [facility] [place] [facility] [address] [id number] [place] [address]- 0076 27 Sep, 2012 [facility] [place] [facility] [address] [id number] [place] [address]- 8536 13 Sep, 2012 [facility] [place] [facility] [address] [id number] [place] [address]- 3312 Sep, [facility] [place] [facility] [address] [id number] [place] [address]- 7993 Sep, [facility] [place] [facility] [address] [id number] [place] [address]- 3530 Aug, [facility] [place] [facility] [address] [facility] [id number] [place] [address]- 9678 Aug, [facility] [place] [facility] [address] [id number] [place] [address] Jul, [facility] [place] [facility] [address] [id number] [place] [address] Jul, [facility] [place] [facility] [address] [id number] [place] [address] Jul, [facility] [place] [facility] [address] [id number] [place] [address] Jul, [facility] [place] [facility] [address] [id number] [place] [address] Jul, [facility] [place] [facility] [address] [id number] [place] [address] Jul, [facility] [place] [facility] [address] [id number] [place] [address] Jun, [facility] [place] [facility] [address] [id number], [place] [address] Jun, [facility] [place] [facility] [address] [id number], [place] [address] Jun, [facility] [place] [facility] [address] [id number] [place] [address] Jun, [facility] [place] [facility] [address] [facility] [id number] [place] [address] Jun, [facility] [place] [facility] [address] [facility] [id number] [place] [address] May, [facility] [place] [facility] [address] [id number] [place] [address] May, [facility] [place] [facility] [address] [id number] [place] [address] May, [facility] [place] [facility] [address] [id number] [place] [address] May, [facility] [place] [facility] [address] [id number] [place] [address] May, [facility] [place] [facility] [address] [id number] [place] [address] May, [facility] [place] [facility] [address] [id number] [place] [address] May, [facility] [place] [facility] [address] [id number] [place] [address] May, [facility] [place] [facility] [address] [id number] [place] [address] Mar, [facility] [place] [facility] [address] [id number] [place] [address] Mar, [facility] [place] [facility] [address] [id number] [place] [address] Mar, [facility] [place] [facility] [address] [id number] [place] [address] Feb, [facility] [place] [facility] [address] [id number] [place] [address] Feb, [facility] [place] [facility] [address] [id number] [place] [address] Feb, [facility] [place] [facility] [address] [id number] [place] [address] Feb, [facility] [place] [facility] [address] [id number] [place] [address] Jan, [facility] [place] [facility] [address] [id number] [place] [address] Jan, [facility] [address] [id number] [place] [address] Jan, [facility] [place] [facility] [address] [id number] [place] [address] December, [facility] [place] [facility] [address] [id number] [place] [address] Nov, [facility] [place] [facility] [address] [id number] [place] [address] Oct, [facility] [place] [facility] [address] [id number] [place] [address] Oct, [facility] [place] [facility] [address] [id number] [place] [address] Oct, [facility] [place] [facility] [address] [id number] [place] [address] Oct, [facility] [place] [facility] [address] [id number] [place] [address] Aug, [facility] [place] [facility] [address] [id number] [place] [address] Aug, [facility] [place] [facility] [address] [id number], [place] [address] Aug, [facility] [place] [facility] [address] [id number], [place] [address] Aug, [facility] [place] [facility] [address] [id number], [place] [address] Aug, [facility] [place] [facility] [address] [id number] [place] [address] Aug, [facility] [place] [facility] [address] [id number], [place] [address] Aug, [facility] [place] [facility] [address] [id number], [place] [address] Aug, [facility] [place] [facility] [address] [id number], [place] [address] 08 Jul, 2011 [facility] [address] [id number] [place] [address] 29 Jun, 2011 [facility] [place] [facility] [address] [id number] [place] [address] 29 Jun, 2011 [facility] [address] [address] [id number] [place] [address] 31 Jul, 2010 [facility] [place] [facility] [address] [id number] [place] [address] 22 Jul, 2010 [facility] [address] [id number] [place] [address] 22 Jul, 2010 [facility] [place] [facility] [address] [id number] [place] [address] 14 Jul, 2010 [facility] [address] [facility] [id number] [place] [address] 14 Jul, 2010 [facility] [place] [facility] [address] [id number] [place] [address] 24 Jun, 2010 [facility] [address] [facility] [id number] [place] [address] May, [facility] [place] [facility] [address] [facility] [id number] [place] [address] Mar, [facility] [address] [id number] [place] [address] Oct, [facility] [place] [facility] [address] [id number] [place] [address] Aug, [facility] [place] [facility] [address] [id number] [place] [address] 15 Jul, 2009 [facility] [place] [facility] [address] [id number] [place] [address] Jul, [facility] [place] [facility] [address] [facility] [id number] [place] [address] Jun, [facility] [place] [facility] [address] [facility] [id number] [place] [address] Jun, [facility] [address] [id number] [address] May, [facility] [address] [id number] [address] May, [facility] [address] [id number] [address] Mar, [facility] [address] [id number] [address] Mar, [facility] [id number] [address] Oct, IMMUNIZATIONS No Known Immunizations SOCIAL HISTORY [...] disc replacement L1- L5 - Dr Muhammad ([place]) Surgical History appendectomy 1983 Surgical History hysterectomy 1993 Surgical History dilatation and curettage Surgical History heart cath- Dr Shaw [address] Meza bowel and intestines 2015 Hospitalization History Hospitalization for surgery only
--- OUTSIDE RECORDS SUMMARY | 2018-04-23 11:40 | XMS REPORT ---
Author Author SERENITYKACIE ROBLEDO [facility] Address Unknown Care Team Providers Care Etcher Enameling Name Role Phone KACIE MONSON Unavailable PROBLEMS Type Condition ICD9-CM Code [id number] Code Onset Dates Condition Status SNOMED Code Problem Generalized anxiety disorder F41.1 Active 15830610 Problem Cannabis abuse F12.10 Active 03106089 Problem Major depressive disorder, recurrent episode, moderate F33.1 Active 381034280 Problem Tobacco use Z72.0 Active 111990270 Problem Diarrhea 787.91 Active 20768700 Problem PTSD (post-traumatic stress disorder) F43.10 Active 16029904 Problem Opioid use disorder, moderate, in sustained remission F11.21 Active 83817080 Problem Alcohol use disorder, mild, 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 Active 36677358 Problem Cocaine use disorder, moderate, in sustained remission F14.21 Active 86374681 Problem Methamphetamine use disorder, severe, 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 Active 97647297 Problem Thoracic or lumbosacral neuritis or radiculitis, unspecified 724.4 Active 201511751 Problem Hematuria, unspecified 599.70 Active 77948026 Problem Spasm of muscle 728.85 Active 89978703 Problem Lumbago 724.2 Active 283414869 Problem Insomnia 780.52 Active 459855128 Problem Hyperlipidemia 272.4 Active 81208183 Problem Major depressive disorder, recurrent episode, severe, without mention of psychotic behavior 296.33 Active 16705284 Problem Prediabetes 790.29 Active 1662187 Problem Adjustment disorder with depressed mood 309.0 Active 67560002 Problem Mixed hyperlipidemia E78.2 Active 620151351 ALLERGIES Substance Reaction Event Type Date Status Duragesic-100 vomiting- Patches only Drug Allergy Mar, Active ENCOUNTERS Encounter Location Date Diagnosis [facility] [address] [facility] [id number] [id number] December, [facility] [address] [id number] [address] Nov, [facility] [id number] [address] Nov, [facility] [id number] [place] [address] 58291- 0971 Nov, Wellness examination Z00.00 ; Encounter for immunization Z23 ; Screening for osteoporosis Z13.820 ; Screening for breast cancer Z12.31 and Left breast lump N63.20 [facility] [address] [id number] [id number] Oct, Dental examination Z01.20 [id number] [place] [address] 90208- 4658 Oct, [place] [id number] [place] [address] 69966- 7128 Oct, [place] [id number] [place] [address] 54983- 6977 16 Sep, 2017 [facility] [id number] [place] [address] 02966- 1520 15 Sep, 2017 [facility] [id number] [place] [address]10- 7366 14 Sep, 2017 Left otitis media with effusion H65.92 ; Acute suppurative otitis media of right ear without spontaneous rupture of tympanic membrane, recurrence not specified H66.001 ; Dizziness R42 and Fatigue 780.79 [facility] [address] [address] Aug, Major depressive disorder, recurrent episode, moderate [...] remission F10.11 and Tobacco use Z72.0 [facility] [address] [address] Aug, Ingrown right big toenail L60.0 [facility] [address] [place] [address] 04919- 9166 Aug, [facility] [address] [place] [address] 15790- 4563 Aug, PTSD (post-traumatic stress disorder) F43.10 [facility] [id number] [place] [address] 87827- 9544 Aug, Major depressive disorder, recurrent episode, moderate F33.1 ; Generalized anxiety disorder F41.1 and Cannabis abuse F12.10 [facility] [address] [place] [address] 76420- 3006 Jul, [facility] [id number] [place] [address] 38494- 9267 Jul, [facility] [id number] [place] [address] 61995- 2703 Jul, [facility] [address] [place] [address] 15832- 5634 Jul, Major depressive disorder, recurrent episode, moderate F33.1 ; Generalized anxiety disorder F41.1 and Cannabis abuse F12.10 [facility] [address], [place] [address] 0[address] Jul, [facility] [id number] [place] [address] 81425 2546 Jul, [facility] [id number] [place] [address] 53683- 2308 Jul, Hyperlipidemia 272.4 [facility] [address] [place] [address] 21221- 2796 Jul, PTSD (post-traumatic stress disorder) F43.10 [facility] [address] [place] [address] 60448- 2743 Jul, Tobacco use Z72.0 ; Alcohol use [...] anxiety disorder F41.1 and Cannabis abuse F12.[address] [address]- [address] Jul, [address] [address]24- 5040 Jul, Dysuria R30.0 and Mixed hyperlipidemia E78.[address] [address]853- 4408 Jun, Major depressive disorder, recurrent episode, moderate F33.1 ; Generalized anxiety disorder F41.1 and Cannabis abuse F12.10 [id number] [place] [address] 51550- 9486 Jun, [address] 00981- 5299 Jun, Generalized anxiety disorder F41.1 ; Major depressive disorder, recurrent episode, moderate F33.1 ; PTSD (post-traumatic stress disorder) F43.10 ; Opioid use disorder, moderate, in sustained remission F11.21 ; Cannabis abuse F12.10 ; Alcohol use disorder, mild, 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 ; Methamphetamine use disorder, severe, 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 ; Cocaine use disorder, moderate, in sustained remission F14.21 and Tobacco use Z72.[address] 56119- 3901 Jun, Major depressive disorder, recurrent episode, moderate F33.1 ; Generalized anxiety disorder F41.1 and Cannabis abuse F12.10 [id number] [place] [address] 15458- 6464 Jun, [id number] [place] [address] 18990- 4807 Jun, [facility] [id number] [place] [address] 65348- 1962 Jun, Major depressive disorder, recurrent episode, moderate F33.1 ; Generalized anxiety disorder F41.1 and Cannabis abuse F12.10 [facility] [address] [place] [id number] Mar, Dental examination Z01.20 [facility] [id number] [place] [id number] Feb, Dental examination Z01.20 [facility] [id number] [place] [address] 00939- 5789 Mar, [facility] [id number] [place] [address] 82356- 4482 Mar, [facility] [id number] [place] [address] 10530- 9293 Feb, Hyperlipidemia 272.4 and Prediabetes 790.29 [facility] [id number] [place] [address] 24530- 9742 Feb, Fatigue 780.79 and Hyperlipidemia 272.4 [facility] [id number] [place] [address] 11810- 8047 Feb, Lumbago 724.2 ; Hyperlipidemia 272.4 ; Insomnia 780.52 and Fatigue 780.79 [facility] [id number] [place] [address] 42806- 0462 Nov, [facility] [id number] [place] [address] 41576- 2257 Nov, [facility] [id number] [place] [address] 69456- 9806 Mar, [facility] [id number] [place] [address] 27988- 4682 Mar, [facility] [address] [place] [address]- 6135 Jan, [facility] [place] [facility] [address] [id number] [place] [address]- 0701 Jan, [facility] [place] [facility] [address] [id number] [place] [address]- 3691 December, [facility] [place] [facility] [address] [id number] [place] [address]- 9276 December, [facility] [place] [facility] [address] [id number] [place] [address]- 7335 Nov, [facility] [place] [facility] [address] [id number] [place] [address]- 5456 Nov, [facility] [place] [facility] [address] [id number] [place] [address]- 7496 Nov, [facility] [place] [facility] [address] [id number] [place] [address]- 7795 Nov, [facility] [place] [facility] [address] [id number] [place] [address]- 9173 Nov, [facility] [place] [facility] [address] [id number] [place] [address]- 1294 Nov, [facility] [place] [facility] [address] [id number] [place] [address]- 5757 Oct, [facility] [place] [facility] [address] [id number] [place] [address]- 0596 31 Oct, 2013 [facility] [place] [facility] [address] [id number] [place] [address]- 9611 Oct, [facility] [place] [facility] [address] [id number] [place] [address]- 6403 Oct, [facility] [place] [facility] [address] [id number] [place] [address]- 5195 Oct, [facility] [place] [facility] [address] [id number] [place] 7350 Oct, [facility] [place] [facility] [address] [id number] [place] [address]- 3329 Oct, [facility] [place] [facility] [address] [id number] [place] [address]- 7681 Oct, [facility] [place] [facility] [address] [id number] [place] [address]- 1216 Oct, [facility] [place] [facility] [address] [id number] [place] [address]- 3435 Oct, [facility] [place] [facility] [address] [id number] [place] [address]- 0743 Oct, [facility] [place] [facility] [address] [id number] [place] [address]- 5580 Oct, [facility] [place] [facility] [address] [id number] [place] [address]- 8922 Oct, [facility] [place] [facility] [address] [id number] [place] [address]- 0409 Sep, [facility] [place] [facility] [address] [id number] [place] [address]- 6842 Sep, [facility] [place] [facility] [address] [id number] [place] [address]- 9364 Sep, [facility] [place] [facility] [address] [id number] [place] [address]- 1961 Sep, [facility] [place] [facility] [address] [id number] [place] [address]- 6350 Sep, [facility] [place] [facility] [address] [id number] [place] [address]- 3083 Sep, [facility] [place] [facility] [address] [id number] [place] [address]- 2468 Sep, [facility] [place] [facility] [address] [id number] [place] [address]- 9765 Sep, [facility] [place] [facility] [address] [id number] [place] [address]- 5478 14 Sep, 2013 [facility] [place] [facility] [address] [id number] [place] [address]- 0813 14 Sep, 2013 [facility] [place] [facility] [address] [id number] [place] [address]- 5866 14 Sep, 2013 [facility] [place] [facility] [address] [id number] [place] [address]- 8058 14 Sep, 2013 [facility] [place] [facility] [address] [id number] [place] [address]- 0851 14 Sep, 2013 [facility] [place] [facility] [address] [id number] [place] [address]- 9648 14 Sep, 2013 [facility] [place] [facility] [address] [facility] [id number] [place] [address]- 2805 13 Sep, 2013 [facility] [place] [facility] [address] [id number] [place] [address]- 0393 13 Sep, 2013 [facility] [place] [facility] [address] [id number] [place] [address]- 2010 12 Sep, 2013 [facility] [place] [facility] [address] [facility] [id number] [place] [address]- 7172 12 Sep, 2013 [facility] [place] [facility] [address] [facility] [id number] [place] [address]- 0945 03 Sep, 2013 [facility] [place] [facility] [address] [id number] [place] [address]- 0786 Sep, [facility] [place] [facility] [address] [id number] [place] [address]- 0845 Aug, [facility] [place] [facility] [address] [id number] [place] [address]- 0242 Aug, [facility] [place] [facility] [address] [id number] [place] [address]- 8101 Aug, [facility] [place] [facility] [address] [id number] [place] [address]- 2546 Aug, [facility] [address] [id number] [place] [address] Aug, [facility] [place] [facility] [address] [id number] [place] [address]- 5477 Jul, [facility] [place] [facility] [address] [id number] [place] [address]- 5059 Jul, [facility] [place] [facility] [address] [id number] [place] [address]- 2754 Jul, [facility] [place] [facility] [address] [id number] [place] [address]- 5138 Jul, [facility] [place] [facility] [address] [id number] [place] 6146 Jul, [facility] [place] [facility] [address] [id number] [place] 7750 Jul, [facility] [place] [facility] [address] [id number] [place] [address]- 7033 Jul, [facility] [place] [facility] [address] [id number] [place] [address]- 9947 Jul, [facility] [place] [facility] [address] [id number] [place] [address]- 0858 Jul, [facility] [place] [facility] [address] [id number], [place] [address]- 4658 Jun, [facility] [place] [facility] [address] [id number], [place] [address]- 1294 Jun, [facility] [place] [facility] [address] [id number] [place] [address]- 2666 Jun, [facility] [place] [facility] [address] [id number] [place] [address]- 7565 Jun, [facility] [place] [facility] [address] [id number] [place] [address]- 8768 Jun, [facility] [place] [facility] [address] [id number] [place] [address]- 3522 18 Jun, 2013 [facility] [place] [facility] [address] [id number] [place] [address]- 7417 Jun, [facility] [place] [facility] [address] [id number] [place] 5961 18 Jun, 2013 [facility] [place] [facility] [address] [id number] [place] [address]- 3499 Jun, [facility] [place] [facility] [address] [id number] [place] [address]- 6900 Jun, [facility] [place] [facility] [address] [id number] [place] [address]- 8614 May, [facility] [place] [facility] [address] [id number] [place] [address]- 0534 May, [facility] [place] [facility] [address] [id number] [place] [address]- 0825 May, [facility] [place] [facility] [address] [id number] [place] [address]- 3434 May, [facility] [place] [facility] [address] [id number] [place] [address]- 3076 16 May, 2013 [facility] [place] [facility] [address] [id number] [place] [address]- 2471 May, [facility] [place] [facility] [address] [id number] [place] [address]- 0899 May, [facility] [place] [facility] [address] [id number] [place] 1029 May, [facility] [place] [facility] [address] [id number] [place] [address]- 8386 May, [facility] [place] [facility] [address] [id number] [place] [address]- 8966 26 Apr, 2013 [facility] [place] [facility] [address] [id number] [place] 1708 16 Apr, 2013 [facility] [place] [facility] [address] [id number] [place] [address]- 4970 Apr, [facility] [place] [facility] [address] [id number] [place] [address]- 6993 Apr, [facility] [place] [facility] [address] [id number] [place] [address]- 2533 Mar, [facility] [place] [facility] [address] [id number] [place] [address]- 7828 Mar, [facility] [place] [facility] [address] [id number] [place] [address]- 4324 Mar, [facility] [place] [facility] [address] [id number] [place] [address]- 8079 Mar, [facility] [place] [facility] [address] [id number] [place] [address]- 2033 Mar, [facility] [place] [facility] [address] [id number] [place] [address]- 8129 Mar, [facility] [place] [facility] [address] [id number] [place] [address]- 6214 Mar, [facility] [place] [facility] [address] [id number] [place] [address]- 1043 Feb, [facility] [place] [facility] [address] [id number] [place] [address]- 0468 Feb, [facility] [place] [facility] [address] [id number] [place] [address]- 7967 Feb, [facility] [place] [facility] [address] [id number] [place] [address]- 7291 Feb, [facility] [place] [facility] [address] [id number] [place] [address]- 9691 Feb, [facility] [place] [facility] [address] [id number] [place] [address]- 8345 Feb, [facility] [place] [facility] [address] [id number] [place] [address]- 7911 Feb, [facility] [address] [id number] [place] [address]- 2129 Feb, [facility] [address] [id number] [place] [address]- 2041 Feb, [facility] [address] [id number] [place] [address]- 4407 Feb, [facility] [address] [id number] [place] [address]- 0324 Feb, [facility] [address] [id number] [place] [address]- 3990 Jan, [facility] [address] [id number] [place] [address]- 9340 Jan, [facility] [address] [id number] [place] [address]- 8316 December, [facility] [address] [id number] [place] [address]- 5700 December, [facility] [address] [id number] [place] [address]- 3786 Nov, [facility] [address] [facility] [id number] [place] [address]- 4625 Nov, [facility] [address] [id number] [place] [address]- 2836 Oct, [facility] [place] [facility] [address] [id number] [place] [address]- 6820 Oct, [facility] [place] [facility] [address] [id number] [place] [address]- 5369 Oct, [facility] [place] [facility] [address] [id number] [place] [address]- 6169 Oct, [facility] [address] [id number] [place] [address]- 8996 Sep, [facility] [address] [id number] [place] [address]- 2107 13 Sep, 2012 [facility] [address] [id number] [place] [address]- 3068 Sep, [facility] [place] [facility] [address] [id number] [place] [address]- 7631 Sep, [facility] [place] [facility] [address] [id number] [place] [address]- 9241 Aug, [facility] [address] [id number] [place] [address]- 2213 Aug, [facility] [address] [id number] [place] [address]- 7327 Jul, [facility] [address] [id number] [place] [address]- 1670 Jul, [facility] [address] [id number] [place] [address]- 6541 Jul, [facility] [address] [id number] [place] [address]- 5332 Jul, [facility] [address] [id number] [place] [address]- 4111 Jul, [facility] [place] [facility] [address] [id number] [place] [address]- 4796 Jul, [facility] [place] [facility] [address] [id number] [place] [address]- 3519 Jun, [facility] [place] [facility] [address] [id number] [place] [address]- 4393 Jun, [facility] [place] [facility] [address] [id number] [place] [address] Jun, [facility] [place] [facility] [address] [id number] [place] [address] Jun, [facility] [place] [facility] [address] [id number] [place] [address] Jun, [facility] [place] [facility] [address] [id number] [place] [address] May, [facility] [place] [facility] [address] [id number] [place] [address] May, [facility] [place] [facility] [address] [id number] [place] [address] May, [facility] [place] [facility] [address] [id number] [place] [address] May, [facility] [place] [facility] [address] [id number] [place] [address] May, [facility] [place] [facility] [address] [id number] [place] [address] May, [facility] [place] [facility] [address] [id number] [place] [address] May, [facility] [place] [facility] [address] [id number] [place] [address] May, [facility] [place] [facility] [address] [id number] [place] [address] Mar, [facility] [place] [facility] [address] [id number] [place] [address] Mar, [facility] [place] [facility] [address] [id number] [place] [address] Mar, [facility] [place] [facility] [address] [id number] [place] [address] Feb, [facility] [place] [facility] [address] [id number] [place] [address] Feb, [facility] [place] [facility] [address] [id number] [place] [address] Feb, [facility] [place] [facility] [address] [id number] [place] [address] Feb, [facility] [place] [facility] [address] [id number] [place] [address] Jan, [facility] [address] [id number] [place] [address] Jan, [facility] [address] [id number] [place] [address] Jan, [facility] [address] [id number] [place] [address] December, [facility] [address] [id number] [place] [address] Nov, [facility] [address] [id number] [place] [address] Oct, [facility] [address] [id number] [place] [address] Oct, [facility] [address] [id number] [place] [address] Oct, [facility] [address] [id number] [place] [address] Oct, [facility] [address] [id number] [place] [address] Aug, [facility] [address] [id number] [place] [address] Aug, [facility] [address] [id number] [place] [address] Aug, [facility] [address] [id number] [place] [address] Aug, [facility] [place] [facility] [address] [id number] [place] [address] Aug, [facility] [address] [id number] [place] [address] Aug, [facility] [address] [id number] [place] [address] Aug, [facility] [address] [id number] [place] [address] Aug, [facility] [place] [facility] [address] [id number] [place] [address] Jul, [facility] [place] [facility] [address] [id number] [place] [address] Jun, [facility] [place] [facility] [address] [id number] [place] [address] Jun, [facility] [address] [id number] [place] [address] 31 Jul, 2010 [facility] [place] [facility] [address] [id number] [place] [address] Jul, [facility] [place] [facility] [address] [id number] [place] [address] Jul, [facility] [place] [facility] [address] [id number] [place] [address] 14 Jul, 2010 [facility] [place] [facility] [address] [id number] [place] [address] Jul, [facility] [place] [facility] [address] [id number], [place] [address] Jun, [facility] [place] [facility] [address] [id number] [place] [address] May, [facility] [place] [facility] [address] [id number], [place] [address] Mar, [facility] [place] [facility] [address] [id number] [place] [address] Oct, [facility] [place] [facility] [address] [id number], [place] [address] Aug, [facility] [place] [facility] [address] [id number] [address] 15 Jul, 2009 [facility] [place] [facility] [address] [id number], [place] [address] Jul, [facility] [id number] [address] Jun, [facility] [id number], [place] [address] Jun, [facility] [id number], [place] [address] May, [facility] [id number], [place] [address] May, [facility] [id number] [place] [id number] Mar, [facility] [address] [address] Mar, [facility] [id number], [place] [address] Oct, IMMUNIZATIONS No Known Immunizations SOCIAL HISTORY Never Assessed REASON FOR VISIT jesse PLAN OF CARE Activity Details Follow Up prn Reason:Restorative #19 VITAL SIGNS MEDICATIONS Medication Instructions Dosage Frequency Start Date End Date Duration Status Xanax 1 mg 1 tablet by Oral route 3 times per day PRN Oct, Active Naproxen 500 MG Orally 2 times a day 1 tablet as needed 12h Active Trazodone HCl 100 MG Orally Once a day 1 tablet at bedtime 24h Feb, 30 day(s) Active RESULTS No Results PROCEDURES Procedure Date Ordered Result Body Site COMP ORAL EVALUATION - NEW/EST PT Apr 05, 2017 INSTRUCTIONS MEDICATIONS ADMINISTERED No Known Medications [...] disc replacement L1- L5 - Dr Muhammad ([place]) Surgical History appendectomy 1983 Surgical History hysterectomy 1993 Surgical History dilatation and curettage Surgical History heart cath- Dr Shaw [address] Meza bowel and intestines seperated 2015 Hospitalization History Hospitalization for surgery only
--- OUTSIDE RECORDS SUMMARY | 2018-04-23 11:41 | XMS REPORT ---
Author Author WILD RODRIGUEZ [facility] Address [address] [place] [address] Care Team Providers Care Datastage Developer Name Role Phone WILD RODRIGUEZ Unavailable PROBLEMS Type Condition ICD9-CM Code RSX48-FF Code Onset Dates Condition Status SNOMED Code Problem Major depressive disorder, recurrent episode, moderate F33.1 Active 525065671 Problem PTSD (post-traumatic stress disorder) F43.10 Active 56377181 Problem Cannabis abuse F12.10 Active 69022431 Problem GERD with esophagitis K21.0 Active 669952412 Problem Spasm of muscle 728.85 Active 09421861 Problem Cocaine use disorder, moderate, in sustained remission F14.21 Active 87993422 Problem Diarrhea 787.91 Active 90035964 Problem Alcohol use disorder, mild, 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 Active 41278712 Problem Tobacco use Z72.0 Active 926412301 Problem Methamphetamine use disorder, severe, 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2 Active 892337134 Problem Insomnia 780.52 Active 151816084 Problem Generalized anxiety disorder F41.1 Active 96280306 ALLERGIES No Information ENCOUNTERS Encounter Location Date Diagnosis [facility] [address] [facility] [id number] [address] Feb, [facility] [id number] [place] [address]309- 3603 Jan, Cocaine use disorder, moderate, in sustained [...] Major depressive disorder, recurrent episode, moderate F33.1 [place] [id number] [place] [address] 94637- 1041 Jan, Dysuria R30.0 and GERD with esophagitis K21.0 [id number] [place] [address] 76510- 0651 December, Major depressive disorder, recurrent episode, moderate F33.1 [id number] [place] [address] 64233- 5835 December, [place] [id number] [place] [address] 65511- 2321 December, Major depressive disorder, recurrent episode, moderate [...] sustained remission F10.11 and Tobacco use Z72.0 [place] [id number] [place] [address]73- 3336 Nov, [facility] [address] [place] [id number] [place] [address] Nov, [place] [id number] [place] [address] 83055- 5564 Nov, Wellness examination Z00.00 ; Encounter for immunization Z23 ; Screening for osteoporosis Z13.820 ; Screening for breast cancer Z12.31 and Left breast lump N63.20 [facility] [place] [facility] [address] [id number] [id number] Oct, Dental examination Z01.20 [facility] [address] [address] Oct, [facility] [address] [address] Oct, [facility] [address] [address] Sep, [facility] [id number] [place] [address] 97[address] Sep, [facility] [id number] [place] [address] 78931- 6725 14 Sep, 2017 Left otitis media with effusion H65.92 ; Acute suppurative otitis media of right ear without spontaneous rupture of tympanic membrane, recurrence not specified H66.001 ; Dizziness R42 and Fatigue 780.79 [facility] [address] [address] Aug, Major depressive disorder, recurrent episode, moderate [...] sustained remission F10.11 and Tobacco use Z72.[address] [facility] [address] [id number] [address] Aug, Ingrown right big toenail L60.0 [facility] [address] [address] Aug, [facility] [address] [address] Aug, PTSD (post-traumatic stress disorder) F43.10 [facility] [address] [address] Aug, Major depressive disorder, recurrent episode, moderate F33.1 ; Generalized anxiety disorder F41.1 and Cannabis abuse F12.10 [facility] [address] [address] Jul, [facility] [id number] [place] [address] 82742- 2196 Jul, [facility] [address], [place] [address] Jul, [facility] [id number] [place] [address] 56520- 6696 Jul, Major depressive disorder, recurrent episode, moderate F33.1 ; Generalized anxiety disorder F41.1 and Cannabis abuse F12.10 [facility] [address] [address] Jul, [facility] [id number] [place] [address] 97659- 7656 Jul, [facility] [id number] [place] [address] 06528- 2396 Jul, Hyper[address] 272.4 [facility] [address] [address] 57[address] Jul, PTSD (post-traumatic stress disorder) F43.10 [facility] [address] [address] 14 Jul, 2017 Tobacco use Z72.0 ; [...] disorder F41.1 and Cannabis abuse F12.10 [facility] [address], [place] [address] Jul, [facility] [id number] [place] [address] 72627- 2026 Jul, Dysuria R30.0 and Mixed hyperlipidemia E78.2 [facility] [id number] [place] [address] 28268- 6252 Jun, Major depressive disorder, recurrent episode, moderate F33.1 ; Generalized anxiety disorder F41.1 and Cannabis abuse F12.10 [facility] [id number] [place] [address] 45288- 6655 Jun, [place] [id number] [place] [address] 08636- 6965 Jun, Generalized anxiety disorder F41.1 ; Major [...] remission F14.21 and Tobacco [address]0 [facility] [address] [place] [address] 87989- 0112 Jun, Major depressive disorder, recurrent episode, moderate F33.1 ; Generalized anxiety disorder F41.1 and Cannabis abuse F12.10 [facility] [address] [address] Jun, [facility] [address], [place] [address] Jun, [facility] [id number] [place] [address] 43490- 1752 Jun, Major depressive disorder, recurrent episode, moderate F33.1 ; Generalized anxiety disorder F41.1 and Cannabis abuse F12.10 [facility] [place] [facility] [address] [place] [id number] Mar, Dental examination Z01.20 [facility] [place] [facility] [address] [id number] [address] Feb, Dental examination Z01.20 [facility] [address] [address] Mar, [facility] [id number] [place] [address] 95507- 8358 Mar, [facility] [id number] [place] [address] 91689- 3280 Feb, Hyperlipidemia 272.[address] [facility] [id number] [place] [address] 84319- 7457 Feb, Fatigue 780.[address] [facility] [id number] [place] [address] 93363- 9818 Feb, Lumbago 724.2 ; Hyperlipidemia 272.4 ; Insomnia 780.[address] [facility] [address] [address]- [address]237 Nov, [facility] [id number] [place] [address] 22056- 0321 Nov, [facility] [address], [place] [address]- 0843 Mar, [facility] [address] [address]- 3941 Mar, [facility] [address] [address] Jan, [facility] [id number] [place] [address] 07856- 2303 Jan, [facility] [address], [place] [address]- 5496 December, [facility] [id number] [place] [address] 69187- 8670 December, [facility] [place] [facility] [address] [id number] [place] [address]- 7449 Nov, [facility] [place] [facility] [address] [id number] [place] 8793 Nov, [facility] [place] [facility] [address] [id number] [place] [address]- 8216 Nov, [facility] [place] [facility] [address] [id number] [place] [address]- 7495 Nov, [facility] [place] [facility] [address] [id number] [place] [address]- 3580 Nov, [facility] [place] [facility] [address] [id number] [place] [address]- 6048 Nov, [facility] [place] [facility] [address] [id number] [place] [address]- 1552 Oct, [facility] [place] [facility] [address] [id number] [place] [address]- 0363 31 Oct, 2013 [facility] [place] [facility] [address] [id number] [place] [address]- 3299 Oct, [facility] [place] [facility] [address] [id number] [place] [address]- 0620 Oct, [facility] [place] [facility] [address] [id number] [place] [address]- 7522 Oct, [facility] [place] [facility] [address] [id number] [place] [address]- 3183 19 Oct, 2013 [facility] [place] [facility] [address] [id number] [place] [address]- 9723 Oct, [facility] [place] [facility] [address] [id number] [place] [address]- 3399 Oct, [facility] [place] [facility] [address] [id number] [place] [address]- 2531 Oct, [facility] [place] [facility] [address] [id number] [place] [address]- 7120 04 Oct, 2013 [facility] [place] [facility] [address] [id number] [place] [address]- 1980 Oct, [facility] [place] [facility] [address] [id number] [place] [address]- 2050 Oct, [facility] [place] [facility] [address] [id number] [place] [address]- 0982 Oct, [facility] [place] [facility] [address] [id number] [place] [address]- 8187 24 Sep, 2013 [facility] [place] [facility] [address] [id number] [place] [address]- 0069 Sep, [facility] [place] [facility] [address] [facility] [id number] [place] [address]- 8925 Sep, [facility] [place] [facility] [address] [id number] [place] [address]- 6857 Sep, [facility] [place] [facility] [address] [id number] [place] [address]- 6819 Sep, [facility] [place] [facility] [address] [facility] [id number] [place] [address]- 8138 Sep, [facility] [place] [facility] [address] [facility] [id number] [place] [address]- 0248 18 Sep, 2013 [facility] [place] [facility] [address] [facility] [id number] [place] [address]- 5294 18 Sep, 2013 [facility] [place] [facility] [address] [facility] [id number] [place] [address]- 5950 14 Sep, 2013 [facility] [place] [facility] [address] [id number] [place] [address]- 2571 14 Sep, 2013 [facility] [place] [facility] [address] [facility] [id number] [place] [address]- 4662 14 Sep, 2013 [facility] [place] [facility] [address] [facility] [id number] [place] [address]- 5330 14 Sep, 2013 [facility] [place] [facility] [address] [id number] [place] [address]- 7588 14 Sep, 2013 [facility] [place] [facility] [address] [id number] [place] [address]- 8796 14 Sep, 2013 [facility] [place] [facility] [address] [id number] [place] [address]- 7206 Sep, [facility] [place] [facility] [address] [id number] [place] [address]- 9345 Sep, [facility] [place] [facility] [address] [id number] [place] [address]- 0780 Sep, [facility] [place] [facility] [address] [id number] [place] [address]- 2727 Sep, [facility] [place] [facility] [address] [id number] [place] [address]- 0418 Sep, [facility] [place] [facility] [address] [id number] [place] [address]- 8628 Sep, [facility] [place] [facility] [address] [id number] [place] [address]- 7632 Aug, [facility] [place] [facility] [address] [id number] [place] [address]- 9298 Aug, [facility] [place] [facility] [address] [id number] [place] [address]- 8090 Aug, [facility] [place] [facility] [address] [id number] [place] [address]- 2517 Aug, [facility] [place] [facility] [address] [id number] [place] [address]- 5424 Aug, [facility] [place] [facility] [address] [id number] [place] [address]- 7803 Jul, [facility] [place] [facility] [address] [id number] [place] [address]- 5572 Jul, [facility] [place] [facility] [address] [id number] [place] [address]- 5306 Jul, [facility] [place] [facility] [address] [id number] [place] [address]- 1564 Jul, [facility] [place] [facility] [address] [id number] [place] 2550 Jul, [facility] [place] [facility] [address] [id number] [place] [address]- 5583 Jul, [facility] [place] [facility] [address] [id number] [place] [address]- 2953 Jul, [facility] [place] [facility] [address] [id number] [place] [address]- 9482 Jul, [facility] [place] [facility] [address] [id number] [place] [address]- 9778 Jul, [facility] [place] [facility] [address] [id number], [place] [address]- 2458 Jun, [facility] [place] [facility] [address] [id number], [place] [address]- 2948 Jun, [facility] [place] [facility] [address] [id number], [place] [address]- 2878 Jun, [facility] [place] [facility] [address] [id number], [place] [address]- 4637 Jun, [facility] [place] [facility] [address] [id number], [place] [address]- 5922 Jun, [facility] [place] [facility] [address] [id number], [place] [address]- 0847 Jun, [facility] [place] [facility] [address] [id number], [place] [address]- 9938 Jun, [facility] [place] [facility] [address] [facility] [id number], [place] [address]- 1846 Jun, [facility] [place] [facility] [address] [id number], [place] [address]- 0552 Jun, [facility] [place] [facility] [address] [id number] [place] [address]- 5650 Jun, [facility] [place] [facility] [address] [id number] [place] [address]- 8696 May, [facility] [place] [facility] [address] [id number] [place] [address]- 7293 May, [facility] [place] [facility] [address] [id number] [place] [address]- 0831 May, [facility] [place] [facility] [address] [id number] [place] [address]- 9802 May, [facility] [place] [facility] [address] [id number] [place] [address]- 5892 May, [facility] [place] [facility] [address] [id number], [place] [address]- 0147 May, [facility] [place] [facility] [address] [id number] [place] [address]- 0935 May, [facility] [place] [facility] [address] [id number] [place] [address]- 2342 May, [facility] [place] [facility] [address] [id number] [place] [address]- 8416 May, [facility] [place] [facility] [address] [id number], [place] [address]- 6655 26 Apr, 2013 [facility] [place] [facility] [address] [id number], [place] [address]- 6719 16 Apr, 2013 [facility] [place] [facility] [address] [id number] [place] [address]- 6106 12 Apr, 2013 [facility] [place] [facility] [address] [facility] [id number][place] 4637 06 Apr, 2013 [facility] [place] [facility] [address] [id number] [place] [address]- 2669 Mar, [facility] [place] [facility] [address] [id number] [place] [address]- 7269 Mar, [facility] [place] [facility] [address] [id number] [place] [address]- 1567 Mar, [facility] [place] [facility] [address] [id number] [place] [address]- 9256 Mar, [facility] [place] [facility] [address] [id number] [place] [address]- 1670 Mar, [facility] [place] [facility] [address] [id number] [place] [address]- 4361 Mar, [facility] [place] [facility] [address] [id number] [place] [address]- 1841 Mar, [facility] [place] [facility] [address] [id number] [place] [address]- 2965 Feb, [facility] [place] [facility] [address] [id number] [place] [address]- 0940 Feb, [facility] [place] [facility] [address] [id number] [place] [address]- 2327 Feb, [facility] [place] [facility] [address] [id number] [place] [address]- 2478 Feb, [facility] [place] [facility] [address] [id number] [place] [address]- 4597 Feb, [facility] [place] [facility] [address] [id number] [place] [address]- 1741 Feb, [facility] [place] [facility] [address] [id number] [place] [address]- 2543 Feb, [facility] [place] [facility] [address] [id number] [place] [address]- 3860 Feb, [facility] [place] [facility] [address] [id number] [place] [address] 2540 Feb, [facility] [place] [facility] [address] [id number] [place] [address]- 9674 Feb, [facility] [address] [id number] [place] [address]- 0650 Feb, [facility] [place] [facility] [address] [id number] [place] [address]- 9305 Jan, [facility] [place] [facility] [address] [id number] [place] [address]- 4881 Jan, [facility] [place] [facility] [address] [id number] [place] [address]- 2977 December, [facility] [place] [facility] [address] [id number] [place] [address]- 0221 December, [facility] [place] [facility] [address] [id number] [place] [address]- 6377 Nov, [facility] [place] [facility] [address] [id number] [place] [address]- 6571 Nov, [facility] [place] [facility] [address] [id number] [place] [address]- 4049 Oct, [facility] [place] [facility] [address] [id number] [place] [address]- 1208 Oct, [facility] [place] [facility] [address] [id number] [place] [address]- 8548 Oct, [facility] [place] [facility] [address] [id number] [place] [address]- 9945 Oct, [facility] [place] [facility] [address] [id number] [place] [address]- 6125 Sep, [facility] [place] [facility] [address] [id number] [place] [address]- 7882 Sep, [facility] [place] [facility] [address] [id number] [place] [address]- 4517 Sep, [facility] [place] [facility] [address] [id number] [place] [address]- 4451 Sep, [facility] [place] [facility] [address] [id number] [place] [address]- 0405 Aug, [facility] [address] [id number] [place] [address]- 5157 Aug, [facility] [place] [facility] [address] [id number] [place] [address]- 4174 Jul, [facility] [address] [id number] [place] [address]- 4923 Jul, [facility] [address] [id number] [place] [address]- 7188 Jul, [facility] [id number] [place] [address], [place] [address]- 0140 Jul, [facility] [address] [id number] [place] [address]- 2610 Jul, [facility] [address] [id number] [place] [address]- 3315 Jul, [facility] [address] [id number] [place] [address]- 3084 Jun, [facility] [place] [facility] [address] [id number] [place] [address]- 5892 Jun, [facility] [address] [id number] [place] [address]- 6239 Jun, [facility] [place] [facility] [address] [id number] [place] [address]- 7130 Jun, [facility] [place] [facility] [address] [id number] [place] [address] Jun, [facility] [place] [facility] [address] [id number] [place] [address] May, [facility] [place] [facility] [address] [id number] [place] [address] May, [facility] [place] [facility] [address] [id number] [place] [address] May, [facility] [place] [facility] [address] [id number] [place] [address] May, [facility] [place] [facility] [address] [id number] [place] [address] May, [facility] [place] [facility] [address] [id number] [place] [address] May, [facility] [place] [facility] [address] [id number] [place] [address] May, [facility] [place] [facility] [address] [id number] [place] [address] May, [facility] [place] [facility] [address] [id number] [place] [address] Mar, [facility] [place] [facility] [address] [id number] [place] [address] Mar, [facility] [place] [facility] [address] [id number] [place] [address] Mar, [facility] [place] [facility] [address] [id number] [place] [address] Feb, [facility] [place] [facility] [address] [id number], [place] [address] Feb, [facility] [place] [facility] [address] [id number], [place] [address] Feb, [facility] [place] [facility] [address] [id number], [place] [address] Feb, [facility] [place] [facility] [address] [id number] [place] [address] 79[address] Jan, [facility] [place] [facility] [address] [id number] [place] [address] Jan, [facility] [place] [facility] [address] [id number], [place] [address] Jan, [facility] [place] [facility] [address] [id number], [place] [address] December, [facility] [address] [id number] [place] [address] Nov, [facility] [place] [facility] [address] [id number] [place] [address] Oct, [facility] [place] [facility] [address] [id number] [place] [address] Oct, [facility] [place] [facility] [address] [id number] [place] [address] Oct, [facility] [address] [id number] [place] [address] Oct, [facility] [place] [facility] [address] [id number] [place] [address] Aug, [facility] [address] [id number] [place] [address] Aug, [facility] [place] [facility] [address] [id number] [place] [address] Aug, [facility] [address] [id number] [place] [address]- [address]65 Aug, [facility] [place] [facility] [address] [id number] [address] Aug, [facility] [address] [id number] [place] [address] Aug, [facility] [place] [facility] [address] [id number], [place] [address] Aug, [facility] [place] [facility] [address] [id number] [place] [address] Aug, [facility] [place] [facility] [address] [facility] [id number] [place] [address] Jul, [facility] [place] [facility] [address] [id number] [place] [address]47 Jun, [facility] [place] [facility] [address] [id number] [place] [address] 29 Jun, 2011 [facility] [place] [facility] [address] [id number] [place] [address]- [address] 31 Jul, 2010 [facility] [place] [facility] [address] [id number] [place] [address]46 22 Jul, 2010 [facility] [place] [facility] [address] [id number] [place] [address]46 22 Jul, 2010 [facility] [place] [facility] [address] [id number] [place] [address] 14 Jul, 2010 [facility] [place] [facility] [address] [id number] [place] [address] 14 Jul, 2010 [facility] [place] [facility] [address] [id number] [place] [address]- [address] 24 Jun, 2010 [facility] [place] [facility] [address] [id number] [place] [address]- [address] May, [facility] [place] [facility] [address] [id number] [place] [address] Mar, [facility] [place] [facility] [address] [id number] [place] [address] 79[address] Oct, [facility] [place] [facility] [address] [id number] [place] [address] Aug, [facility] [place] [facility] [address] [id number] [place] [address]- [address] 15 Jul, 2009 [facility] [place] [facility] [address] [id number] [place] [address]- [address] Jul, [facility] [place] [facility] [address] [id number] [place] [address]- [address] 06 Jun, 2009 [facility] [place] [facility] [address] [id number] [place] [address]46 Jun, [facility] [place] [facility] [address] [id number] [place] [address] May, [facility] [address] [facility] [id number] [place] [address] May, [facility] [address] [facility] [id number] [address] Mar, [facility] [address] [facility] [id number] [address] Mar, [facility] [address] [facility] [id number][place] [address] Oct, IMMUNIZATIONS No Known Immunizations SOCIAL HISTORY Never Assessed REASON FOR VISIT Dizzy and Passing Out PLAN OF CARE VITAL SIGNS MEDICATIONS Unknown [...] disc replacement L1- L5 - Dr Muhammad ([place]) Surgical History appendectomy 1983 Surgical History hysterectomy 1993 Surgical History dilatation and curettage Surgical History heart cath- Dr Shaw [address] Meza bowel and intestines 2015 Hospitalization History Hospitalization for surgery only
--- OUTSIDE RECORDS SUMMARY | 2018-04-23 11:42 | XMS REPORT ---
Author Author WILD RODRIGUEZ [facility] Address [address] [place] [address] Care Team Providers Care Sample Book Maker Name Role Phone WILD RODRIGUEZ Unavailable PROBLEMS Type Condition ICD9-CM Code IOG05-LY Code Onset Dates Condition Status SNOMED Code Problem Major depressive disorder, recurrent episode, moderate F33.1 Active 021291381 Problem PTSD (post-traumatic stress disorder) F43.10 Active 87799558 Problem Cannabis abuse F12.10 Active 36691818 Problem GERD with esophagitis K21.0 Active 416796237 Problem Spasm of muscle 728.85 Active 98324926 Problem Cocaine use disorder, moderate, in sustained remission F14.21 Active 24501137 Problem Diarrhea 787.91 Active 12476890 Problem Alcohol use disorder, mild, 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 Active 75034901 Problem Tobacco use Z72.0 Active 317724736 Problem Methamphetamine use disorder, severe, 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2 Active 973701010 Problem Insomnia 780.52 Active 018705060 Problem Generalized anxiety disorder F41.1 Active 87752074 ALLERGIES No Information ENCOUNTERS Encounter Location Date Diagnosis [facility] [address] [facility] [id number] [address] Feb, [facility] [address], [place] [address] Jan, Cocaine use disorder, moderate, in sustained remission F14.21 [place] [id number] [place] [address] 85335- 4669 Jan, Cocaine use disorder, moderate, in sustained [...] Major depressive disorder, recurrent episode, moderate F33.1 [place] [id number] [place] [address] 01187- 5418 Jan, Dysuria R30.0 and GERD with esophagitis K21.0 [place] [id number] [place] [address] 87748- 0609 December, Major depressive disorder, recurrent episode, moderate F33.1 [place] [address] [place] [address] 31443- 2202 December, [place] [id number] [place] [address] 13915- 5118 December, Major depressive disorder, recurrent episode, moderate [...] sustained remission F10.11 and Tobacco use Z72.0 [place] [address] [place] [address] 94501- 0986 Nov, [facility] [address] [id number] [address] Nov, [facility] [address] [place] [address] 24018- 1175 Nov, Wellness examination Z00.00 ; Encounter for immunization Z23 ; Screening for osteoporosis Z13.820 ; Screening for breast cancer Z12.31 and Left breast lump N63.20 [facility] [address] [place] [address] [id number] 29 Oct, 2017 Dental examination Z01.20 [facility] [address] [address]- [address] Oct, [place] [address] [address]95- 1758 Oct, [place] [address] 84431- 8230 16 Sep, 2017 [place] [id number] [place] [address] 64226- 2907 15 Sep, 2017 [facility] [id number] [place] [address] 20290- 8691 14 Sep, 2017 Left otitis media with effusion H65.92 ; Acute suppurative otitis media of right ear without spontaneous rupture of tympanic membrane, recurrence not specified H66.001 ; Dizziness R42 and Fatigue 780.79 [facility] [address] [place] [address] 51571- 5348 Aug, Major depressive disorder, recurrent episode, moderate [...] sustained remission F10.11 and Tobacco use Z72.0 [facility] [address] [place] [address] 71239 -5602 Aug, Ingrown right big toenail L60.0 [facility] [address] 62334- 9682 Aug, [facility] [address], [place] [address] 4033 Aug, PTSD (post-traumatic stress disorder) F43.10 [facility] [address], [place] [address] 3336 Aug, Major depressive disorder, recurrent episode, moderate F33.1 ; Generalized anxiety disorder F41.1 and Cannabis abuse F12.10 [facility] [address], [place] [address] 5010 Jul, [facility] [id number] [place] [address] 19514- 9121 Jul, [facility] [id number] [place] [address] 29110- 7310 Jul, [place] [id number] [place] [address] 28083- 2017 Jul, Major depressive disorder, recurrent episode, moderate F33.1 ; Generalized anxiety disorder F41.1 and Cannabis abuse F12.10 [facility] [address] [place] [address] 48571- 4638 Jul, [facility] [id number] [place] [address] 73773- 4219 Jul, [place] [address], [place] [address] 6210 Jul, Hyperlipidemia 272.4 [facility] [address] [place] [address] 90192- 6134 Jul, PTSD (post-traumatic stress disorder) F43.10 [facility] [address] [place] [address] 31544- 8476 Jul, Tobacco use Z72.0 ; Alcohol use [...] anxiety disorder F41.1 and Cannabis abuse F12.10 [place] [address] [place] [address] 14430- 4171 Jul, [place] [id number] [place] [address] 13965- 4491 Jul, Dysuria R30.0 and Mixed hyperlipidemia E78.2 [place] [id number] [place] [address] 14897- 8716 Jun, Major depressive disorder, recurrent episode, moderate F33.1 ; Generalized anxiety disorder F41.1 and Cannabis abuse F12.10 [place] [id number] [place] [address] 38084- 4221 Jun, [place] [id number] [place] [address] 75141- 2680 Jun, Generalized anxiety disorder F41.1 ; Major depressive disorder, recurrent episode, moderate F33.1 ; PTSD (post-traumatic stress disorder) F43.10 ; Opioid use disorder, moderate, in sustained remission F11.21 ; Cannabis abuse F12.10 ; Alcohol use disorder, mild, 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 ; Methamphetamine use disorder, severe, 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 ; Cocaine use disorder, moderate, in sustained remission F14.21 and Tobacco use Z72.0 [place] [address] [place] [address] 28333- 1517 Jun, Major depressive disorder, recurrent episode, moderate F33.1 ; Generalized anxiety disorder F41.1 and Cannabis abuse F12.10 [place] [address] [place] [address] 03247- 4243 Jun, [place] [id number] [place] [address] 58266- 8424 Jun, [place] [id number] [place] [address] 10626- 3353 Jun, Major depressive disorder, recurrent episode, moderate F33.1 ; Generalized anxiety disorder F41.1 and Cannabis abuse F12.10 [facility] [address] [address] Mar, Dental examination Z01.20 [facility] [address] [place] [id number] [place] [address] [id number] Feb, Dental examination Z01.20 [facility] [id number] [place] [address] 65901- 4493 Mar, [facility] [id number] [place] [address] 55103- 2826 Mar, [facility] [id number] [place] [address] 48529- 8068 Feb, Hyperlipidemia 272.4 and Prediabetes 790.29 [facility] [id number] [place] [address] 88704- 5365 Feb, Fatigue 780.79 and Hyperlipidemia 272.4 [facility] [id number] [place] [address] 69922- 5750 Feb, Lumbago 724.2 ; Hyperlipidemia 272.4 ; Insomnia 780.52 and Fatigue 780.79 [facility] [address] [place] [address] 30028- 6975 Nov, [facility] [address] [place] [address] 99056- 7058 Nov, [facility] [id number] [place] [address] 02743- 9725 Mar, [facility] [id number] [place] [address] 13356- 6245 Mar, [facility] [id number] [place] [address] 318724- 9554 Jan, [facility] [id number] [place] [address] 28561- 8620 Jan, [facility] [address] [id number] [address]- 4129 December, [facility] [address] [id number] [place] [address]- 0938 December, [facility] [place] [facility] [address] [id number] [place] [address]- 3646 Nov, [facility] [address] [id number] [place] [address]- 0876 Nov, [facility] [place] [facility] [address] [id number] [place] [address]- 6758 Nov, [facility] [place] [facility] [address] [id number] [place] [address]- 5488 Nov, [facility] [place] [facility] [address] [id number] [place] [address]- 3293 Nov, [facility] [place] [facility] [address] [id number] [place] [address]- 5171 Nov, [facility] [address] [id number] [place] [address]- 1332 Oct, [facility] [place] [facility] [address] [id number] [place] [address]- 2943 31 Oct, 2013 [facility] [address] [id number] [place] [address]- 0069 Oct, [facility] [place] [facility] [address] [id number] [place] [address]- 3204 20 Oct, 2013 [facility] [place] [facility] [address] [id number] [place] [address]- 7238 Oct, [facility] [place] [facility] [address] [id number] [place] [address]- 6229 Oct, [facility] [place] [facility] [address] [id number] [place] [address]- 6549 Oct, [facility] [place] [facility] [address] [id number] [place] [address]- 6262 Oct, [facility] [place] [facility] [address] [id number] [place] [address]- 9809 Oct, [facility] [place] [facility] [address] [id number] [place] [address]- 4812 Oct, [facility] [place] [facility] [address] [id number] [place] [address]- 0212 Oct, [facility] [place] [facility] [address] [id number] [place] [address]- 7024 Oct, [facility] [place] [facility] [address] [id number] [place] [address]- 8367 Oct, [facility] [place] [facility] [address] [id number] [place] [address]- 8151 24 Sep, 2013 [facility] [place] [facility] [address] [facility] [id number] [place] [address]- 9507 24 Sep, 2013 [facility] [place] [facility] [address] [id number] [place] [address]- 2855 Sep, [facility] [place] [facility] [address] [facility] [id number] [place] [address]- 6707 Sep, [facility] [place] [facility] [address] [facility] [id number] [place] [address]- 6818 Sep, [facility] [place] [facility] [address] [facility] [id number] [place] [address]- 2791 Sep, [facility] [place] [facility] [address] [id number] [place] [address]- 1888 18 Sep, 2013 [facility] [place] [facility] [address] [id number] [place] [address]- 7625 18 Sep, 2013 [facility] [place] [facility] [address] [facility] [id number] [place] [address]- 6744 14 Sep, 2013 [facility] [place] [facility] [address] [facility] [id number] [place] [address]- 7321 14 Sep, 2013 [facility] [place] [facility] [address] [id number] [place] [address]- 3687 14 Sep, 2013 [facility] [place] [facility] [address] [id number] [place] [address]- 0426 14 Sep, 2013 [facility] [place] [facility] [address] [id number] [place] [address]- 8491 14 Sep, 2013 [facility] [place] [facility] [address] [id number] [place] [address]- 8343 14 Sep, 2013 [facility] [place] [facility] [address] [id number] [place] [address]- 3842 13 Sep, 2013 [facility] [place] [facility] [address] [id number] [place] [address]- 6163 Sep, [facility] [place] [facility] [address] [id number] [place] [address]- 5878 Sep, [facility] [place] [facility] [address] [id number] [place] [address]- 8359 Sep, [facility] [place] [facility] [address] [id number] [place] [address]- 9514 Sep, [facility] [place] [facility] [address] [id number] [place] [address]- 0129 Sep, [facility] [place] [facility] [address] [id number] [place] [address]- 6771 Aug, [facility] [place] [facility] [address] [id number] [place] [address]- 9393 Aug, [facility] [place] [facility] [address] [id number] [place] [address]- 9524 Aug, [facility] [place] [facility] [address] [id number] [place] [address]- 6557 Aug, [facility] [place] [facility] [address] [id number] [place] [address]- 9524 Aug, [facility] [place] [facility] [address] [id number] [place] [address]- 9864 Jul, [facility] [address] [id number] [place] [address]- 2631 Jul, [facility] [address] [id number] [place] [address]- 8206 Jul, [facility] [address] [id number] [place] [address]- 4549 Jul, [facility] [place] [facility] [address] [id number] [place] [address]- 2459 Jul, [facility] [address] [id number] [place] 3670 Jul, [facility] [address] [id number] [place] [address]- 9605 Jul, [facility] [address] [id number] [place] [address]- 1244 Jul, [facility] [address] [id number] [place] [address]- 9021 Jul, [facility] [address] [id number] [place] [address]- 1720 Jun, [facility] [address] [facility] [id number] [place] [address]- 2094 Jun, [facility] [address] [id number], [place] [address]- 1032 Jun, [facility] [place] [facility] [address] [id number], [place] [address]- 9053 Jun, [facility] [place] [facility] [address] [id number], [place] [address]- 6689 Jun, [facility] [place] [facility] [address] [id number], [place] [address]- 3234 Jun, [facility] [place] [facility] [address] [facility] [id number], [place] [address]- 8745 Jun, [facility] [place] [facility] [address] [id number] [place] [address]- 3034 18 Jun, 2013 [facility] [place] [facility] [address] [id number] [place] [address]- 7646 Jun, [facility] [place] [facility] [address] [id number] [place] [address]- 2170 Jun, [facility] [place] [facility] [address] [id number] [place] [address]- 0721 May, [facility] [place] [facility] [address] [id number] [place] [address]- 2096 May, [facility] [place] [facility] [address] [id number] [place] [address]- 8379 May, [facility] [place] [facility] [address] [id number] [place] [address]- 2227 May, [facility] [place] [facility] [address] [id number] [place] [address]- 6086 May, [facility] [place] [facility] [address] [id number] [place] [address]- 1183 May, [facility] [place] [facility] [address] [id number] [place] [address]- 3990 May, [facility] [place] [facility] [address] [id number] [place] [address]- 2979 May, [facility] [place] [facility] [address] [id number] [place] [address]- 2344 May, [facility] [place] [facility] [address] [id number] [place] [address]- 4808 26 Apr, 2013 [facility] [place] [facility] [address] [id number] [place]- 3940 16 Apr, 2013 [facility] [place] [facility] [address] [id number] [place] 4956 12 Apr, 2013 [facility] [place] [facility] [address] [id number] [place] [address]- 6947 Apr, [facility] [place] [facility] [address] [id number] [place] [address]- 7911 Mar, [facility] [place] [facility] [address] [id number] [place] [address]- 5897 Mar, [facility] [place] [facility] [address] [id number] [place] [address]- 0017 Mar, [facility] [place] [facility] [address] [id number] [place] [address]- 7205 Mar, [facility] [place] [facility] [address] [id number] [place] [address]- 5460 Mar, [facility] [place] [facility] [address] [id number] [place] [address]- 2288 Mar, [facility] [place] [facility] [address] [id number] [place] [address]- 7442 Mar, [facility] [place] [facility] [address] [id number] [place] [address]- 3130 Feb, [facility] [place] [facility] [address] [id number] [place] [address]- 2659 Feb, [facility] [place] [facility] [address] [id number] [place] [address]- 9674 Feb, [facility] [place] [facility] [address] [id number] [place] [address]- 1896 Feb, [facility] [place] [facility] [address] [id number] [place] [address]- 6760 Feb, [facility] [place] [facility] [address] [id number] [place] [address]- 6476 Feb, [facility] [place] [facility] [address] [id number] [place] [address]- 5453 Feb, [facility] [place] [facility] [address] [id number] [place] [address]- 2961 Feb, [facility] [place] [facility] [address] [id number] [place] [address]- 2355 Feb, [facility] [address] [id number] [place] [address]- 3724 Feb, [facility] [address] [id number] [place] [address]- 1416 Feb, [facility] [address] [id number] [place] [address]- 8368 Jan, [facility] [address] [id number] [place] [address]- 5720 Jan, [facility] [address] [id number] [place] [address]- 5476 December, [facility] [address] [id number] [place] [address]- 4853 December, [facility] [address] [id number] [place] [address]- 3070 Nov, [facility] [address] [id number] [place] [address]- 3357 Nov, [facility] [address] [id number] [place] [address]- 0719 Oct, [facility] [address] [id number] [place] [address]- 0453 Oct, [facility] [place] [facility] [address] [id number] [place] [address]- 2326 Oct, [facility] [address] [id number] [place] [address]- 7387 Oct, [facility] [place] [facility] [address] [id number] [place] [address]- 0574 Sep, [facility] [place] [facility] [address] [id number] [place] [address] 2546 Sep, [facility] [place] [facility] [address] [id number] [place] [address]- 2044 Sep, [facility] [place] [facility] [address] [id number] [place] [address]- 6080 Sep, [facility] [place] [facility] [address] [id number] [place] [address]- 0736 Aug, [facility] [place] [facility] [address] [id number] [place] [address]- 5642 Aug, [facility] [place] [facility] [address] [id number] [place] [address]- 8536 Jul, [facility] [place] [facility] [address] [id number] [place] 3656 Jul, [facility] [place] [facility] [address] [id number] [place] [address]- 4616 Jul, [facility] [place] [facility] [address] [id number] [place] [address]- 1106 Jul, [facility] [place] [facility] [address] [id number] [place] [address] Jul, [facility] [place] [facility] [address] [id number] [place] [address] Jul, [facility] [place] [facility] [address] [id number] [place] [address] Jun, [facility] [place] [facility] [address] [id number] [place] [address] Jun, [facility] [place] [facility] [address] [id number], [place] [address] Jun, [facility] [place] [facility] [address] [id number] [place] [address] Jun, [facility] [place] [facility] [address] [id number] [place] [address] Jun, [facility] [place] [facility] [address] [id number] [place] [address] May, [facility] [place] [facility] [address] [id number] [place] [address] May, [facility] [place] [facility] [address] [id number] [place] [address] May, [facility] [place] [facility] [address] [id number] [place] [address] May, [facility] [place] [facility] [address] [id number] [place] [address] May, [facility] [place] [facility] [address] [id number] [place] [address] May, [facility] [place] [facility] [address] [id number] [place] [address] [address] May, [facility] [place] [facility] [address] [id number] [place] [address] May, [facility] [place] [facility] [address] [id number] [place] [address] Mar, [facility] [place] [facility] [address] [id number] [place] [address] Mar, [facility] [place] [facility] [address] [id number] [place] [address] Mar, [facility] [place] [facility] [address] [id number] [place] [address] Feb, [facility] [place] [facility] [address] [id number] [place] [address] Feb, [facility] [place] [facility] [address] [id number] [place] [address] Feb, [facility] [place] [facility] [address] [id number] [place] [address] Feb, [facility] [place] [facility] [address] [id number] [place] [address] Jan, [facility] [place] [facility] [address] [id number] [place] [address] Jan, [facility] [place] [facility] [address] [id number] [place] [address] Jan, [facility] [place] [facility] [address] [id number] [place] [address] December, [facility] [place] [facility] [address] [id number] [place] [address] Nov, [facility] [place] [facility] [address] [id number] [place] [address] Oct, [facility] [place] [facility] [address] [id number] [place] [address] Oct, [facility] [place] [facility] [address] [id number] [place] [address] Oct, [facility] [place] [facility] [address] [id number] [place] [address] Oct, [facility] [place] [facility] [address] [id number] [place] [address] Aug, [facility] [place] [facility] [address] [id number] [place] [address] Aug, [facility] [place] [facility] [address] [id number] [place] [address] Aug, [facility] [place] [facility] [address] [id number] [place] [address] Aug, [facility] [place] [facility] [address] [id number] [place] [address] Aug, [facility] [place] [facility] [address] [id number] [place] [address] Aug, [facility] [place] [facility] [address] [id number] [place] [address] Aug, [facility] [place] [facility] [address] [id number] [place] [address] Aug, [facility] [place] [facility] [address] [id number] [place] [address] 08 Jul, 2011 [facility] [address] [id number] [place] [address] 29 Jun, 2011 [facility] [place] [facility] [address] [id number] [place] [address] 29 Jun, 2011 [facility] [address] [id number] [place] [address] 31 Jul, 2010 [facility] [place] [facility] [address] [id number] [place] [address] Jul, [facility] [address] [id number] [place] [address] Jul, [facility] [place] [facility] [address] [id number] [place] [address] Jul, [facility] [address] [id number] [place] [address] Jul, [facility] [place] [facility] [address] [id number], [place] [address] 24 Jun, 2010 [facility] [place] [facility] [address] [id number] [place] [address] May, [facility] [place] [facility] [address] [id number] [place] [address] Mar, [facility] [place] [facility] [address] [id number], [place] [address] Oct, [facility] [place] [facility] [address] [id number], [place] [address] Aug, [facility] [place] [facility] [address] [id number] [place] [address] 15 Jul, 2009 [facility] [place] [facility] [address] [id number], [place] [address] Jul, [facility] [place] [facility] [address] [id number] [place] [address] Jun, [facility] [place] [facility] [address] [facility] [id number] [place] [address] Jun, [facility] [address] [facility] [id number], [place] [address] May, [facility] [address] [facility] [id number], [place] [address] May, [facility] [address] [facility] [id number], [place] [address] Mar, [facility] [address] [facility] [id number], [place] [address] Mar, [facility] [address] [facility] [id number], [place] [address] Oct, IMMUNIZATIONS No Known Immunizations SOCIAL HISTORY Never Assessed REASON FOR VISIT medication questions PLAN OF CARE VITAL SIGNS MEDICATIONS Unknown [...] disc replacement L1- L5 - Dr Muhammad ([place]) Surgical History appendectomy 1983 Surgical History hysterectomy 1993 Surgical History dilatation and curettage Surgical History heart cath- Dr Shaw [address] Meza bowel and intestines 2015 Hospitalization History Hospitalization for surgery only
--- OUTSIDE RECORDS SUMMARY | 2018-04-23 11:42 | XMS REPORT ---
Author Author WILD RODRIGUEZ 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 Role Phone WILD RODRIGUEZ Unavailable PROBLEMS Type Condition ICD9-CM Code SVA54-QC Code Onset Dates Condition Status SNOMED Code Problem Major depressive disorder, recurrent episode, moderate F33.1 Active 735736865 Problem PTSD (post-traumatic stress disorder) F43.10 Active 02223440 Problem Cannabis abuse F12.10 Active 67249826 Problem GERD with esophagitis K21.0 Active 123500228 Problem Spasm of muscle 728.85 Active 99087200 Problem Cocaine use disorder, moderate, in sustained remission F14.21 Active 63776575 Problem Diarrhea 787.91 Active 19232560 Problem Alcohol use disorder, mild, 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 Active 69278397 Problem Tobacco use Z72.0 Active 497322434 Problem Methamphetamine use disorder, severe, 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2 Active 539481758 Problem Insomnia 780.52 Active 432476278 Problem Generalized anxiety disorder F41.1 Active 57571750 ALLERGIES No Information ENCOUNTERS Encounter Location Date Diagnosis [facility] [address] [facility] [id number] [address] Feb, [facility] [id number] [place] [address]18- 1101 Jan, Cocaine use disorder, moderate, in sustained [...] Major depressive disorder, recurrent episode, moderate F33.1 [facility] [facility] [id number] [place] [address]012- 7933 Jan, Dysuria R30.0 and GERD with esophagitis K21.0 [id number] [place] [address] 36022- 4038 December, Major depressive disorder, recurrent episode, moderate F33.1 [address] [address] [id number] [place] [address] 39799- 5144 December, [facility] [id number] [place] [address] 72377- 2041 December, Major depressive disorder, recurrent episode, moderate [...] sustained remission F10.11 and Tobacco use Z72.0 [place] [id number] [place] [address]- 6594 Nov, [facility] [address] [place] [id number] [place] [address] Nov, [place] [id number] [place] [address]- 1522 Nov, Wellness examination Z00.00 ; Encounter for immunization Z23 ; Screening for osteoporosis Z13.820 ; Screening for breast cancer Z12.31 and Left breast lump N63.20 [facility] [id number] [id number] Oct, Dental examination Z01.20 [facility] [address] [address] Oct, [facility] [address], [place] [address] 69[address] Oct, [facility] [address] [address] 37[address] Sep, [facility] [id number] [place] [address]- 2038 Sep, [facility] [id number] [place] [address] 49031- 9099 14 Sep, 2017 Left otitis media with effusion H65.92 ; Acute suppurative otitis media of right ear without spontaneous rupture of tympanic membrane, recurrence not specified H66.001 ; Dizziness R42 and Fatigue 780.79 [facility] [address] [address] Aug, Major depressive disorder, recurrent episode, moderate [...] remission F10.11 and Tobacco use Z72.0 [facility] [id number] [address] Aug, Ingrown right big toenail L60.0 [facility] [address] [address] 245[address] Aug, [facility] [address] [address] Aug, PTSD (post-traumatic stress disorder) F43.10 [facility] [address] [address] 96[address] Aug, Major depressive disorder, recurrent episode, moderate F33.1 ; Generalized anxiety disorder F41.1 and Cannabis abuse F12.10 [facility] [address], [place] [address] 6066 Jul, [facility] [id number] [place] [address] 33137- 5566 Jul, [facility] [address], [place] [address] 2[address] Jul, [facility] [id number] [place] [address] 18888- 9486 Jul, Major depressive disorder, recurrent episode, moderate F33.1 ; Generalized anxiety disorder F41.1 and Cannabis abuse F12.10 [facility] [address] [address] 6276 Jul, [facility] [id number] [place] [address] 30378- 7106 Jul, [facility] [id number] [place] [address] 73711- 0916 Jul, Hyperlipidemia 272.4 [facility] [address] [address] 4296 Jul, PTSD (post-traumatic stress disorder) F43.10 [facility] [address] [address] 5737 14 Jul, 2017 Tobacco use Z72.0 ; [...] anxiety disorder F41.1 and Cannabis abuse F12.10 [facility] [address], [place] [address] 3660 Jul, [facility] [id number] [place] [address] 39052- 5816 Jul, Dysuria R30.0 and Mixed hyperlipidemia E78.2 [facility] [id number] [place] [address] 99762- 5257 Jun, Major depressive disorder, recurrent episode, moderate F33.1 ; Generalized anxiety disorder F41.1 and Cannabis abuse F12.10 [facility] [address] [place] [address] 66624- 4464 Jun, [place] [id number] [place] [address] 22804- 3653 Jun, Generalized anxiety disorder F41.1 ; Major depressive disorder, recurrent episode, moderate F33.1 ; PTSD (post-traumatic stress disorder) F43.10 ; Opioid use disorder, moderate, in sustained remission F11.21 ; Cannabis abuse F12.10 ; Alcohol use disorder, mild, 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 ; Methamphetamine use disorder, severe, 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 ; Cocaine use disorder, moderate, in sustained remission F14.21 and Tobacco use Z72.0 [facility] [address] [place] [address] 98578- 8628 Jun, Major depressive disorder, recurrent episode, moderate F33.1 ; Generalized anxiety disorder F41.1 and Cannabis abuse F12.10 [facility] [address], [place] [address]- 5456 Jun, [facility] [address] [address]- 2787 Jun, [facility] [address] [place] [address] 70096- 3751 Jun, Major depressive disorder, recurrent episode, moderate F33.1 ; Generalized anxiety disorder F41.1 and Cannabis abuse F12.10 [facility] [address] [place] [id number] Mar, Dental examination Z01.20 [facility] [id number] [address] Feb, Dental examination Z01.20 [facility] [address] 47[address] Mar, [facility] [address] [place] [address] 89439- 7583 Mar, [facility] [address] [place] [address] 96117- 8916 Feb, Hyperlipidemia 272.4 and Prediabetes 790.29 [facility] [id number] [place] [address] 47843- 1868 Feb, Fatigue 780.79 and Hyperlipidemia 272.4 [facility] [id number] [place] [address] 79089- 0537 Feb, Lumbago 724.2 ; Hyperlipidemia 272.4 ; Insomnia 780.52 and Fatigue 780.79 [facility] [address] [address]- 5878 Nov, [facility] [id number] [place] [address] 96099- 6809 Nov, [facility] [address] [address]- 0117 Mar, [facility] [address], [place] [address]- 9288 Mar, [facility] [address] 6190 Jan, [facility] [id number] [place] [address] 61761- 2776 Jan, [facility] [address], [place] [address]- 9979 December, [facility] [id number] [place] [address] 41735- 3907 December, [facility] [place] [facility] [address] [id number] [place] [address]- 0884 Nov, [facility] [place] [facility] [address] [id number] [place] 8993 Nov, [facility] [place] [facility] [address] [id number] [place] [address]- 5130 Nov, [facility] [place] [facility] [address] [id number] [place] [address]- 3843 Nov, [facility] [place] [facility] [address] [id number] [place] [address]- 9862 Nov, [facility] [place] [facility] [address] [id number] [place] [address]- 1641 Nov, [facility] [place] [facility] [address] [id number] [place] [address]- 4612 Oct, [facility] [place] [facility] [address] [id number] [place] [address]- 2168 31 Oct, 2013 [facility] [place] [facility] [address] [id number] [place] [address]- 9651 Oct, [facility] [place] [facility] [address] [id number] [place] [address]- 6430 Oct, [facility] [place] [facility] [address] [id number] [place] [address]- 5478 Oct, [facility] [place] [facility] [address] [id number] [place] [address]- 7639 19 Oct, 2013 [facility] [place] [facility] [address] [id number] [place] [address]- 3641 Oct, [facility] [place] [facility] [address] [id number] [place] [address]- 7048 Oct, [facility] [place] [facility] [address] [id number] [place] [address]- 8648 Oct, [facility] [place] [facility] [address] [id number] [place] [address]- 2157 04 Oct, 2013 [facility] [place] [facility] [address] [id number] [place] [address]- 5549 Oct, [facility] [place] [facility] [address] [id number] [place] [address]- 9786 Oct, [facility] [place] [facility] [address] [id number] [place] [address]- 9775 Oct, [facility] [place] [facility] [address] [id number] [place] [address]- 3901 24 Sep, 2013 [facility] [place] [facility] [address] [id number] [place] [address]- 3887 Sep, [facility] [place] [facility] [address] [facility] [id number] [place] [address]- 4197 Sep, [facility] [place] [facility] [address] [id number] [place] [address]- 6250 Sep, [facility] [place] [facility] [address] [id number] [place] [address]- 3870 Sep, [facility] [place] [facility] [address] [facility] [id number] [place] [address]- 1302 Sep, [facility] [place] [facility] [address] [facility] [id number] [place] [address]- 6542 18 Sep, 2013 [facility] [place] [facility] [address] [facility] [id number] [place] [address]- 9926 18 Sep, 2013 [facility] [place] [facility] [address] [facility] [id number] [place] [address]- 4783 14 Sep, 2013 [facility] [place] [facility] [address] [id number] [place] [address]- 1723 14 Sep, 2013 [facility] [place] [facility] [address] [facility] [id number] [place] [address]- 9520 14 Sep, 2013 [facility] [place] [facility] [address] [facility] [id number] [place] [address]- 1224 14 Sep, 2013 [facility] [place] [facility] [address] [id number] [place] [address]- 6766 14 Sep, 2013 [facility] [place] [facility] [address] [id number] [place] [address]- 0576 14 Sep, 2013 [facility] [place] [facility] [address] [id number] [place] [address]- 9976 Sep, [facility] [place] [facility] [address] [id number] [place] [address]- 7047 Sep, [facility] [place] [facility] [address] [id number] [place] [address]- 8135 Sep, [facility] [place] [facility] [address] [id number] [place] [address]- 6236 Sep, [facility] [place] [facility] [address] [id number] [place] [address]- 1657 Sep, [facility] [place] [facility] [address] [id number] [place] [address]- 6270 Sep, [facility] [place] [facility] [address] [id number] [place] [address]- 1539 Aug, [facility] [place] [facility] [address] [id number] [place] [address]- 5428 Aug, [facility] [place] [facility] [address] [id number] [place] [address]- 4062 Aug, [facility] [place] [facility] [address] [id number] [place] [address]- 3822 Aug, [facility] [place] [facility] [address] [id number] [place] [address]- 5682 Aug, [facility] [place] [facility] [address] [id number] [place] [address]- 8870 Jul, [facility] [place] [facility] [address] [id number] [place] [address]- 4392 Jul, [facility] [place] [facility] [address] [id number] [place] [address]- 8145 Jul, [facility] [place] [facility] [address] [id number] [place] [address]- 9290 Jul, [facility] [place] [facility] [address] [id number] [place] 5967 Jul, [facility] [place] [facility] [address] [id number] [place] [address]- 4000 Jul, [facility] [place] [facility] [address] [id number] [place] [address]- 7718 Jul, [facility] [place] [facility] [address] [id number] [place] [address]- 9746 Jul, [facility] [place] [facility] [address] [id number] [place] [address]- 6162 Jul, [facility] [place] [facility] [address] [id number], [place] [address]- 3310 Jun, [facility] [place] [facility] [address] [id number], [place] [address]- 9556 Jun, [facility] [place] [facility] [address] [id number], [place] [address]- 7433 Jun, [facility] [place] [facility] [address] [id number], [place] [address]- 7458 Jun, [facility] [place] [facility] [address] [id number], [place] [address]- 7859 Jun, [facility] [place] [facility] [address] [id number], [place] [address]- 7978 Jun, [facility] [place] [facility] [address] [id number], [place] [address]- 4172 Jun, [facility] [place] [facility] [address] [facility] [id number], [place] [address]- 8162 Jun, [facility] [place] [facility] [address] [id number], [place] [address]- 7318 Jun, [facility] [place] [facility] [address] [id number] [place] [address]- 7053 Jun, [facility] [place] [facility] [address] [id number] [place] [address]- 9245 May, [facility] [place] [facility] [address] [id number] [place] [address]- 2141 May, [facility] [place] [facility] [address] [id number] [place] [address]- 1378 May, [facility] [place] [facility] [address] [id number] [place] [address]- 2649 May, [facility] [place] [facility] [address] [id number] [place] [address]- 9163 May, [facility] [place] [facility] [address] [id number], [place] [address]- 6257 May, [facility] [place] [facility] [address] [id number] [place] [address]- 8432 May, [facility] [place] [facility] [address] [id number] [place] [address]- 9486 May, [facility] [place] [facility] [address] [id number] [place] [address]- 7355 May, [facility] [place] [facility] [address] [id number], [place] [address]- 0460 26 Apr, 2013 [facility] [place] [facility] [address] [id number], [place] [address]- 1844 16 Apr, 2013 [facility] [place] [facility] [address] [id number] [place] [address]- 6267 12 Apr, 2013 [facility] [place] [facility] [address] [facility] [id number] 4590 06 Apr, 2013 [facility] [place] [facility] [address] [id number] [place] [address]- 1020 Mar, [facility] [place] [facility] [address] [id number] [place] [address]- 5583 Mar, [facility] [place] [facility] [address] [id number] [place] [address]- 1236 Mar, [facility] [place] [facility] [address] [id number] [place] [address]- 8046 Mar, [facility] [place] [facility] [address] [id number] [place] [address]- 2342 Mar, [facility] [place] [facility] [address] [id number] [place] [address]- 9790 Mar, [facility] [place] [facility] [address] [id number] [place] [address]- 1687 Mar, [facility] [place] [facility] [address] [id number] [place] [address]- 2435 Feb, [facility] [place] [facility] [address] [id number] [place] [address]- 0843 Feb, [facility] [place] [facility] [address] [id number] [place] [address]- 2941 Feb, [facility] [place] [facility] [address] [id number] [place] [address]- 9362 Feb, [facility] [place] [facility] [address] [id number] [place] [address]- 9590 Feb, [facility] [place] [facility] [address] [id number] [place] [address]- 1177 Feb, [facility] [place] [facility] [address] [id number] [place] [address]- 2543 Feb, [facility] [place] [facility] [address] [id number] [place] [address]- 5543 Feb, [facility] [place] [facility] [address] [id number] [place] [address] 2549 Feb, [facility] [place] [facility] [address] [id number] [place] [address]- 8875 Feb, [facility] [address] [id number] [place] [address]- 3625 Feb, [facility] [place] [facility] [address] [id number] [place] [address]- 6674 Jan, [facility] [place] [facility] [address] [id number] [place] [address]- 4359 Jan, [facility] [place] [facility] [address] [id number] [place] [address]- 5985 December, [facility] [place] [facility] [address] [id number] [place] [address]- 1906 December, [facility] [place] [facility] [address] [id number] [place] [address]- 6712 Nov, [facility] [place] [facility] [address] [id number] [place] [address]- 9297 Nov, [facility] [place] [facility] [address] [id number] [place] [address]- 6501 Oct, [facility] [place] [facility] [address] [id number] [place] [address]- 7950 Oct, [facility] [place] [facility] [address] [id number] [place] [address]- 2361 Oct, [facility] [place] [facility] [address] [id number] [place] [address]- 5128 Oct, [facility] [place] [facility] [address] [id number] [place] [address]- 0811 Sep, [facility] [place] [facility] [address] [id number] [place] [address]- 3236 Sep, [facility] [place] [facility] [address] [id number] [place] [address]- 8346 Sep, [facility] [place] [facility] [address] [id number] [place] [address]- 3475 Sep, [facility] [place] [facility] [address] [id number] [place] [address]- 7446 Aug, [facility] [address] [id number] [place] [address]- 3117 Aug, [facility] [place] [facility] [address] [id number] [place] [address]- 5582 Jul, [facility] [address] [id number] [place] [address]- 0599 Jul, [facility] [address] [id number] [place] [address]- 9763 Jul, [facility] [id number] [place] [address], [place] [address]- 4998 Jul, [facility] [address] [id number] [place] [address]- 9843 Jul, [facility] [address] [id number] [place] [address]- 9132 Jul, [facility] [address] [id number] [place] [address]- 2191 Jun, [facility] [place] [facility] [address] [id number] [place] [address]- 5008 Jun, [facility] [address] [id number] [place] [address]- 3783 Jun, [facility] [place] [facility] [address] [id number] [place] [address] Jun, [facility] [place] [facility] [address] [id number] [place] [address] Jun, [facility] [place] [facility] [address] [id number] [place] [address] May, [facility] [place] [facility] [address] [id number] [place] [address] May, [facility] [place] [facility] [address] [id number] [place] [address] May, [facility] [place] [facility] [address] [id number] [place] [address] May, [facility] [place] [facility] [address] [id number] [place] [address] May, [facility] [place] [facility] [address] [id number] [place] [address] May, [facility] [place] [facility] [address] [id number] [place] [address] May, [facility] [place] [facility] [address] [id number] [place] [address] May, [facility] [place] [facility] [address] [id number] [place] [address] Mar, [facility] [place] [facility] [address] [id number] [place] [address] Mar, [facility] [place] [facility] [address] [id number] [place] [address] Mar, [facility] [place] [facility] [address] [id number] [place] [address] Feb, [facility] [place] [facility] [address] [id number], [place] [address] Feb, [facility] [place] [facility] [address] [id number], [place] [address] Feb, [facility] [place] [facility] [address] [id number], [place] [address] Feb, [facility] [place] [facility] [address] [id number] [place] [address] Jan, [facility] [place] [facility] [address] [id number] [place] [address] Jan, [facility] [place] [facility] [address] [id number], [place] [address] Jan, [facility] [place] [facility] [address] [id number], [place] [address] December, [facility] [address] [id number] [place] [address] Nov, [facility] [place] [facility] [address] [id number] [place] [address] Oct, [facility] [place] [facility] [address] [id number] [place] [address] Oct, [facility] [place] [facility] [address] [id number] [place] [address]87 Oct, [facility] [address] [id number] [place] [address] Oct, [facility] [place] [facility] [address] [id number] [place] [address] Aug, [facility] [address] [id number] [place] [address] Aug, [facility] [place] [facility] [address] [id number] [place] [address] Aug, [facility] [address] [id number] [place] [address] Aug, [facility] [place] [facility] [address] [id number] [place] [address] Aug, [facility] [address] [id number] [place] [address] Aug, [facility] [place] [facility] [address] [id number], [place] [address] Aug, [facility] [place] [facility] [address] [id number] [place] [address] Aug, [facility] [place] [facility] [address] [facility] [id number] [place] [address] Jul, [facility] [place] [facility] [address] [id number] [place] [address] Jun, [facility] [place] [facility] [address] [id number] [place] [address] 29 Jun, 2011 [facility] [place] [facility] [address] [id number] [place] [address]- [address] 31 Jul, 2010 [facility] [place] [facility] [address] [id number] [place] [address] 22 Jul, 2010 [facility] [place] [facility] [address] [id number] [place] [address] 22 Jul, 2010 [facility] [place] [facility] [address] [id number] [place] [address] 14 Jul, 2010 [facility] [place] [facility] [address] [id number] [place] [address]- [address] 14 Jul, 2010 [facility] [place] [facility] [address] [id number] [place] [address]- [address] 24 Jun, 2010 [facility] [place] [facility] [address] [id number] [place] [address]- [address] May, [facility] [place] [facility] [address] [id number] [place] [address]- [address] Mar, [facility] [place] [facility] [address] [id number] [place] [address] Oct, [facility] [place] [facility] [address] [id number] [place] [address] Aug, [facility] [place] [facility] [address] [id number] [place] [address] 15 Jul, 2009 [facility] [place] [facility] [address] [id number] [place] [address] Jul, [facility] [place] [facility] [address] [id number] [place] [address] 06 Jun, 2009 [facility] [place] [facility] [address] [id number] [place] [address] Jun, [facility] [place] [facility] [address] [id number] [place] [address] May, [facility] [address] [facility] [id number] [place] [address] May, [facility] [address] [facility] [id number] [address] Mar, [facility] [address] [facility] [id number], [place] [address] Mar, [facility] [address] [facility] [id number], [place] [address] Oct, IMMUNIZATIONS No Known Immunizations SOCIAL HISTORY [...] disc replacement L1- L5 - Dr Muhammad ([place]) Surgical History appendectomy 1983 Surgical History hysterectomy 1993 Surgical History dilatation and curettage Surgical History heart cath- Dr Shaw [address] Meza bowel and intestines 2015 Hospitalization History Hospitalization for surgery only
--- OUTSIDE RECORDS SUMMARY | 2018-04-23 11:43 | XMS REPORT ---
Author Author WILD RODRIGUEZ [facility] Address [address] [place] [address] Care Team Providers Care Casting Sorter Name Role Phone WILD RODRIGUEZ Unavailable PROBLEMS Type Condition ICD9-CM Code NSW88-EU Code Onset Dates Condition Status SNOMED Code Problem Major depressive disorder, recurrent episode, moderate F33.1 Active 348263098 Problem PTSD (post-traumatic stress disorder) F43.10 Active 97706421 Problem Cannabis abuse F12.10 Active 99093992 Problem GERD with esophagitis K21.0 Active 075235963 Problem Spasm of muscle 728.85 Active 33085750 Problem Cocaine use disorder, moderate, in sustained remission F14.21 Active 68896834 Problem Diarrhea 787.91 Active 27537355 Problem Alcohol use disorder, mild, 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 Active 50756507 Problem Tobacco use Z72.0 Active 067002056 Problem Methamphetamine use disorder, severe, 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2 Active 798715473 Problem Insomnia 780.52 Active 222418700 Problem Generalized anxiety disorder F41.1 Active 10970848 ALLERGIES No Information ENCOUNTERS Encounter Location Date Diagnosis [facility] [address] [facility] [id number] [address] Feb, [facility] [id number] [place] [address]- 5179 Jan, Cocaine use disorder, moderate, in sustained [...] Major depressive disorder, recurrent episode, moderate F33.1 [place] [id number] [place] [address]- 7409 Jan, Dysuria R30.0 and GERD with esophagitis K21.0 [address] [id number] [place] [address]- 4132 December, Major depressive disorder, recurrent episode, moderate F33.1 [address] [id number] [place] [address] 49160- 7300 December, [place] [id number] [place] [address] 72327- 3343 December, Major depressive disorder, recurrent episode, moderate [...] sustained remission F10.11 and Tobacco use Z72.0 [place] [id number] [place] [address] 32415- 6169 Nov, [facility] [address] [place] [id number] [place] [address] Nov, [place] [id number] [place] [address] 83267- 9896 Nov, Wellness examination Z00.00 ; Encounter for immunization Z23 ; Screening for osteoporosis Z13.820 ; Screening for breast cancer Z12.31 and Left breast lump N63.20 [facility] [id number] [id number] Oct, Dental examination Z01.20 [facility] [address] [address] Oct, [facility] [address] [address] 1871 Oct, [facility] [address] [address] Sep, [facility] [id number] [place] [address]36- 3789 Sep, [facility] [address] [place] [address] 39963- 2886 14 Sep, 2017 Left otitis media with effusion H65.92 ; Acute suppurative otitis media of right ear without spontaneous rupture of tympanic membrane, recurrence not specified H66.001 ; Dizziness R42 and Fatigue 780.79 [facility] [address] [address] Aug, Major depressive disorder, recurrent episode, moderate [...] sustained remission F10.11 and Tobacco use Z72.0 [facility] [address] [id number] [address] Aug, Ingrown right big toenail L60.0 [facility] [address] [address] Aug, [facility] [address] [address] 6[address] Aug, PTSD (post-traumatic stress disorder) F43.10 [facility] [address] [address] Aug, Major depressive disorder, recurrent episode, moderate F33.1 ; Generalized anxiety disorder F41.1 and Cannabis abuse F12.10 [facility] [address] [address] 88[address] Jul, [facility] [id number] [place] [address] 10828- 5036 Jul, [facility] [address] [address] 3216 Jul, [facility] [id number] [place] [address] 06702- 2976 Jul, Major depressive disorder, recurrent episode, moderate F33.1 ; Generalized anxiety disorder F41.1 and Cannabis abuse F12.10 [facility] [address] [address] 0916 Jul, [facility] [id number] [place] [address]0006 Jul, [facility] [address] [place] [address] 72956- 0426 Jul, Hyperlipidemia 272.4 [facility] [address] [address] 34[address] Jul, PTSD (post-traumatic stress disorder) F43.10 [facility] [address] [address] 14 Jul, 2017 Tobacco use Z72.0 ; [...] anxiety disorder F41.1 and Cannabis abuse F12.10 [facility] [address] [address] 7[address] Jul, [facility] [id number] [place] [address] 27803- 7796 Jul, Dysuria R30.0 and Mixed hyperlipidemia E78.2 [facility] [address] [place] [address] 73664- 2918 Jun, Major depressive disorder, recurrent episode, moderate F33.1 ; Generalized anxiety disorder F41.1 and Cannabis abuse F12.10 [facility] [address] [place] [address] 76023- 2900 Jun, [place] [id number] [place] [address] 81175- 2058 Jun, Generalized anxiety disorder F41.1 ; Major depressive disorder, recurrent episode, moderate F33.1 ; PTSD (post-traumatic stress disorder) F43.10 ; Opioid use disorder, moderate, in sustained remission F11.21 ; Cannabis abuse F12.10 ; Alcohol use disorder, mild, 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 ; Methamphetamine use disorder, severe, 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 ; Cocaine use disorder, moderate, in sustained remission F14.21 and Tobacco use Z72.0 [facility] [address] [place] [address] 13309- 8512 Jun, Major depressive disorder, recurrent episode, moderate F33.1 ; Generalized anxiety disorder F41.1 and Cannabis abuse F12.10 [facility] [address] [address]- 7904 Jun, [facility] [address] [address]- 8656 Jun, [facility] [address] [place] [address] 08653- 1576 Jun, Major depressive disorder, recurrent episode, moderate F33.1 ; Generalized anxiety disorder F41.1 and Cannabis abuse F12.10 [facility] [address] [place] [address] [id number] Mar, Dental examination Z01.20 [facility] [id number] [id number] Feb, Dental examination Z01.20 [facility] [address] [address] Mar, [facility] [address] [place] [address] 69647- 0453 Mar, [facility] [address] [place] [address] 19498- 8593 Feb, Hyperlipidemia 272.4 and Prediabetes 790.29 [facility] [id number] [place] [address] 60098- 9556 Feb, Fatigue 780.79 and Hyperlipidemia 272.4 [facility] [id number] [place] [address] 76041- 7764 Feb, Lumbago 724.2 ; Hyperlipidemia 272.4 ; Insomnia 780.52 and Fatigue 780.79 [facility] [address] [address]- 0873 Nov, [facility] [id number] [place] [address] 37366- 0669 Nov, [facility] [address] [address]- 8767 Mar, [facility] [address] [address]- 9264 Mar, [facility] [address] 0721 Jan, [facility] [id number] [place] [address] 08642- 8011 Jan, [facility] [address] [address]- 6410 December, [facility] [id number] [place] [address] 18051- 1674 December, [facility] [place] [facility] [address] [id number] [place] [address]- 8603 Nov, [facility] [place] [facility] [address] [id number] [place] 2144 Nov, [facility] [place] [facility] [address] [id number] [place] [address]- 5707 Nov, [facility] [place] [facility] [address] [id number] [place] [address]- 0154 Nov, [facility] [place] [facility] [address] [id number] [place] [address]- 3590 Nov, [facility] [place] [facility] [address] [id number] [place] [address]- 9012 Nov, [facility] [place] [facility] [address] [id number] [place] [address]- 1344 Oct, [facility] [place] [facility] [address] [id number] [place] [address]- 8757 31 Oct, 2013 [facility] [place] [facility] [address] [id number] [place] [address]- 8333 Oct, [facility] [place] [facility] [address] [id number] [place] [address]- 4937 Oct, [facility] [place] [facility] [address] [id number] [place] [address]- 5073 Oct, [facility] [place] [facility] [address] [id number] [place] [address]- 3513 19 Oct, 2013 [facility] [place] [facility] [address] [id number] [place] [address]- 5734 Oct, [facility] [place] [facility] [address] [id number] [place] [address]- 1581 Oct, [facility] [place] [facility] [address] [id number] [place] [address]- 6021 Oct, [facility] [place] [facility] [address] [id number] [place] [address]- 2471 04 Oct, 2013 [facility] [place] [facility] [address] [id number] [place] [address]- 8527 Oct, [facility] [place] [facility] [address] [id number] [place] [address]- 9501 Oct, [facility] [place] [facility] [address] [id number] [place] [address]- 8620 Oct, [facility] [place] [facility] [address] [id number] [place] [address]- 5340 24 Sep, 2013 [facility] [place] [facility] [address] [id number] [place] [address]- 5237 Sep, [facility] [place] [facility] [address] [facility] [id number] [place] [address]- 4975 Sep, [facility] [place] [facility] [address] [id number] [place] [address]- 4677 Sep, [facility] [place] [facility] [address] [id number] [place] [address]- 2982 Sep, [facility] [place] [facility] [address] [facility] [id number] [place] [address]- 8247 Sep, [facility] [place] [facility] [address] [facility] [id number] [place] [address]- 6394 18 Sep, 2013 [facility] [place] [facility] [address] [facility] [id number] [place] [address]- 2236 18 Sep, 2013 [facility] [place] [facility] [address] [facility] [id number] [place] [address]- 8777 14 Sep, 2013 [facility] [place] [facility] [address] [id number] [place] [address]- 8782 14 Sep, 2013 [facility] [place] [facility] [address] [facility] [id number] [place] [address]- 4778 14 Sep, 2013 [facility] [place] [facility] [address] [facility] [id number] [place] [address]- 2151 14 Sep, 2013 [facility] [place] [facility] [address] [id number] [place] [address]- 6209 14 Sep, 2013 [facility] [place] [facility] [address] [id number] [place] [address]- 5696 14 Sep, 2013 [facility] [place] [facility] [address] [id number] [place] [address]- 2446 Sep, [facility] [place] [facility] [address] [id number] [place] [address]- 6392 Sep, [facility] [place] [facility] [address] [id number] [place] [address]- 7813 Sep, [facility] [place] [facility] [address] [id number] [place] [address]- 6009 Sep, [facility] [place] [facility] [address] [id number] [place] [address]- 7518 Sep, [facility] [place] [facility] [address] [id number] [place] [address]- 3786 Sep, [facility] [place] [facility] [address] [id number] [place] [address]- 5315 Aug, [facility] [place] [facility] [address] [id number] [place] [address]- 7779 Aug, [facility] [place] [facility] [address] [id number] [place] [address]- 9214 Aug, [facility] [place] [facility] [address] [id number] [place] [address]- 8002 Aug, [facility] [place] [facility] [address] [id number] [place] [address]- 3208 Aug, [facility] [place] [facility] [address] [id number] [place] [address]- 9939 Jul, [facility] [place] [facility] [address] [id number] [place] [address]- 5159 Jul, [facility] [place] [facility] [address] [id number] [place] [address]- 2900 Jul, [facility] [place] [facility] [address] [id number] [place] [address]- 0206 Jul, [facility] [place] [facility] [address] [id number] [place] 4963 Jul, [facility] [place] [facility] [address] [id number] [place] [address]- 7165 Jul, [facility] [place] [facility] [address] [id number] [place] [address]- 7553 Jul, [facility] [place] [facility] [address] [id number] [place] [address]- 8350 Jul, [facility] [place] [facility] [address] [id number] [place] [address]- 5922 Jul, [facility] [place] [facility] [address] [id number] [address]- 9621 Jun, [facility] [place] [facility] [address] [id number] [place] [address]- 5765 Jun, [facility] [place] [facility] [address] [id number] [place] [address]- 9629 Jun, [facility] [place] [facility] [address] [id number] [place] [address]- 6887 Jun, [facility] [place] [facility] [address] [id number] [place] [address]- 0821 Jun, [facility] [place] [facility] [address] [id number] [place] [address]- 8439 Jun, [facility] [place] [facility] [address] [id number] [place] [address]- 1867 Jun, [facility] [place] [facility] [address] [facility] [id number] [place] [address]- 9833 Jun, [facility] [place] [facility] [address] [id number] [address]- 6135 Jun, [facility] [place] [facility] [address] [id number] [place] [address]- 3652 Jun, [facility] [place] [facility] [address] [id number] [place] [address]- 4173 May, [facility] [place] [facility] [address] [id number] [place] [address]- 8180 May, [facility] [place] [facility] [address] [id number] [place] [address]- 4627 May, [facility] [place] [facility] [address] [id number] [place] [address]- 6248 May, [facility] [place] [facility] [address] [id number] [place] [address]- 3446 May, [facility] [place] [facility] [address] [id number] [place] [address]- 7009 May, [facility] [place] [facility] [address] [id number] [place] [address]- 9294 May, [facility] [place] [facility] [address] [id number] [place] [address]- 9399 May, [facility] [place] [facility] [address] [id number] [place] [address]- 7098 May, [facility] [place] [facility] [address] [id number] [place] [address]- 0956 26 Apr, 2013 [facility] [place] [facility] [address] [id number] [place] [address]- 8792 16 Apr, 2013 [facility] [place] [facility] [address] [id number] [place] [address]- 6071 12 Apr, 2013 [facility] [place] [facility] [address] [facility] [id number] [place] 7447 06 Apr, 2013 [facility] [place] [facility] [address] [id number] [place] [address]- 1453 Mar, [facility] [place] [facility] [address] [id number] [place] [address]- 5502 Mar, [facility] [place] [facility] [address] [id number] [place] [address]- 0313 Mar, [facility] [place] [facility] [address] [id number] [place] [address]- 8426 Mar, [facility] [place] [facility] [address] [id number] [place] [address]- 7377 Mar, [facility] [place] [facility] [address] [id number] [place] [address]- 3034 Mar, [facility] [place] [facility] [address] [id number] [place] [address]- 2558 Mar, [facility] [place] [facility] [address] [id number] [place] [address]- 7087 Feb, [facility] [place] [facility] [address] [id number] [place] [address]- 6724 Feb, [facility] [place] [facility] [address] [id number] [place] [address]- 8215 Feb, [facility] [place] [facility] [address] [id number] [place] [address]- 8765 Feb, [facility] [place] [facility] [address] [id number] [place] [address]- 8119 Feb, [facility] [place] [facility] [address] [id number] [place] [address]- 7588 Feb, [facility] [place] [facility] [address] [id number] [place] [address]- 2541 Feb, [facility] [place] [facility] [address] [id number] [place] [address]- 0817 Feb, [facility] [place] [facility] [address] [id number] [place] [address] 2544 Feb, [facility] [place] [facility] [address] [id number] [place] [address]- 6424 Feb, [facility] [address] [id number] [place] [address]- 3119 Feb, [facility] [place] [facility] [address] [id number] [place] [address]- 6460 Jan, [facility] [place] [facility] [address] [id number] [place] [address]- 9253 Jan, [facility] [place] [facility] [address] [id number] [place] [address]- 3165 December, [facility] [place] [facility] [address] [id number] [place] [address]- 4031 December, [facility] [place] [facility] [address] [id number] [place] [address]- 2188 Nov, [facility] [place] [facility] [address] [id number] [place] [address]- 3651 Nov, [facility] [place] [facility] [address] [id number] [place] [address]- 5502 Oct, [facility] [place] [facility] [address] [id number] [place] [address]- 4786 Oct, [facility] [place] [facility] [address] [id number] [place] [address]- 9825 Oct, [facility] [place] [facility] [address] [id number] [place] [address]- 5420 Oct, [facility] [place] [facility] [address] [id number] [place] [address]- 4822 Sep, [facility] [place] [facility] [address] [id number] [place] [address]- 8766 Sep, [facility] [place] [facility] [address] [id number] [place] [address]- 5772 Sep, [facility] [place] [facility] [address] [id number] [place] [address]- 7330 Sep, [facility] [place] [facility] [address] [id number] [place] [address]- 5993 Aug, [facility] [address] [id number] [place] [address]- 4907 Aug, [facility] [place] [facility] [address] [id number] [place] [address] Jul, [facility] [address] [id number] [place] [address] Jul, [facility] [address] [id number] [place] [address] Jul, [facility] [address] [id number] [place] [address], [place] [address] Jul, [facility] [address] [id number] [place] [address] Jul, [facility] [address] [id number] [place] [address] Jul, [facility] [address] [id number] [place] [address] Jun, [facility] [place] [facility] [address] [id number] [place] [address] Jun, [facility] [address] [id number] [place] [address] Jun, [facility] [place] [facility] [address] [id number] [place] [address] Jun, [facility] [place] [facility] [address] [id number] [place] [address] Jun, [facility] [place] [facility] [address] [id number] [place] [address] May, [facility] [place] [facility] [address] [id number] [place] [address]- [address] May, [facility] [place] [facility] [address] [id number] [place] [address] May, [facility] [place] [facility] [address] [id number] [place] [address] May, [facility] [place] [facility] [address] [id number] [place] [address]- [address] May, [facility] [place] [facility] [address] [id number] [place] [address]- [address] May, [facility] [place] [facility] [address] [id number] [place] [address]- [address] May, [facility] [place] [facility] [address] [id number] [place] [address] May, [facility] [place] [facility] [address] [id number] [place] [address]- [address] Mar, [facility] [place] [facility] [address] [id number] [place] [address] Mar, [facility] [place] [facility] [address] [id number] [place] [address]- [address] Mar, [facility] [place] [facility] [address] [id number] [place] [address] Feb, [facility] [place] [facility] [address] [id number] [place] [address] Feb, [facility] [place] [facility] [address] [id number] [address] Feb, [facility] [place] [facility] [address] [id number] [place] [address] Feb, [facility] [place] [facility] [address] [id number] [place] [address] Jan, [facility] [place] [facility] [address] [id number] [place] [address]- [address] Jan, [facility] [place] [facility] [address] [id number] [place] [address] Jan, [facility] [place] [facility] [address] [id number] [place] [address] December, [facility] [address] [id number] [place] [address] Nov, [facility] [place] [facility] [address] [id number] [place] [address] Oct, [facility] [place] [facility] [address] [id number] [place] [address] Oct, [facility] [place] [facility] [address] [id number] [place] [address] Oct, [facility] [address] [id number] [place] [address] Oct, [facility] [place] [facility] [address] [id number] [place] [address] Aug, [facility] [address] [id number] [place] [address] Aug, [facility] [place] [facility] [address] [id number] [place] [address] Aug, [facility] [address] [id number] [place] [address] Aug, [facility] [place] [facility] [address] [id number] [address] Aug, [facility] [address] [id number] [place] [address] Aug, [facility] [place] [facility] [address] [id number] [place] [address]- [address] Aug, [facility] [place] [facility] [address] [id number] [place] [address] Aug, [facility] [place] [facility] [address] [facility] [id number] [place] [address] Jul, [facility] [place] [facility] [address] [id number] [place] [address] Jun, [facility] [place] [facility] [address] [id number] [place] [address] 29 Jun, 2011 [facility] [place] [facility] [address] [id number] [place] [address] 31 Jul, 2010 [facility] [place] [facility] [address] [id number] [place] [address] 22 Jul, 2010 [facility] [place] [facility] [address] [id number] [place] [address] 22 Jul, 2010 [facility] [place] [facility] [address] [id number] [place] [address] 14 Jul, 2010 [facility] [place] [facility] [address] [id number] [place] [address] 14 Jul, 2010 [facility] [place] [facility] [address] [id number] [place] [address] 24 Jun, 2010 [facility] [place] [facility] [address] [id number] [place] [address] May, [facility] [place] [facility] [address] [id number] [place] [address] Mar, [facility] [place] [facility] [address] [id number] [place] [address] Oct, [facility] [place] [facility] [address] [id number] [place] [address] Aug, [facility] [place] [facility] [address] [id number] [place] [address] 15 Jul, 2009 [facility] [place] [facility] [address] [id number] [place] [address] Jul, [facility] [place] [facility] [address] [id number] [place] [address] 06 Jun, 2009 [facility] [place] [facility] [address] [id number] [place] [address] Jun, [facility] [place] [facility] [address] [id number] [place] [address] May, [facility] [address] [facility] [id number] [place] [address] May, [facility] [address] [facility] [id number] [place] [address] Mar, [facility] [address] [facility] [id number] [place] [address] Mar, [facility] [address] [facility] [id number] [place] [address] Oct, IMMUNIZATIONS No Known Immunizations SOCIAL HISTORY Never Assessed REASON FOR VISIT High Cholesterol and Triglicerites PLAN OF CARE VITAL SIGNS MEDICATIONS Unknown [...] disc replacement L1- L5 - Dr Muhammad ([place]) Surgical History appendectomy 1983 Surgical History hysterectomy 1993 Surgical History dilatation and curettage Surgical History heart cath- Dr Shaw [address] Meza bowel and intestines 2015 Hospitalization History Hospitalization for surgery only
--- OUTSIDE RECORDS SUMMARY | 2018-04-23 11:43 | XMS REPORT ---
Author Author RAUL VASQUEZ [facility] Address [address] [place] [address] Care Team Providers Care Contact Assembler Name Role Phone JOSEVASQUEZ ZUNIGA Unavailable PROBLEMS Type Condition ICD9-CM Code VDI10-LH Code Onset Dates Condition Status SNOMED Code Problem Major depressive disorder, recurrent episode, moderate F33.1 Active 902401336 Problem PTSD (post-traumatic stress disorder) F43.10 Active 46695175 Problem Cannabis abuse F12.10 Active 67199155 Problem GERD with esophagitis K21.0 Active 629773840 Problem Spasm of muscle 728.85 Active 27387833 Problem Cocaine use disorder, moderate, in sustained remission F14.21 Active 20771624 Problem Diarrhea 787.91 Active 01806499 Problem Alcohol use disorder, mild, 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 Active 89673152 Problem Tobacco use Z72.0 Active 148751256 Problem Methamphetamine use disorder, severe, 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2 Active 214514297 Problem Insomnia 780.52 Active 762899403 Problem Generalized anxiety disorder F41.1 Active 11539373 ALLERGIES No Information ENCOUNTERS Encounter Location Date Diagnosis [facility] [address] [address] Feb, [facility] [address], [place] [address] Jan, Cocaine use disorder, moderate, in sustained [...] disorder, recurrent episode, moderate F33.1 [place] [id number] [place] [address]2473- 8409 Jan, Dysuria R30.0 and GERD with esophagitis K21.0 [place] [id number] [place] [address] 88762- 6992 December, Major depressive disorder, recurrent episode, moderate F33.1 [place] [id number] [place] [address] 13134- 6369 December, [place] [id number] [place] [address] 52547- 5052 December, Major depressive disorder, recurrent episode, moderate [...] F10.11 and Tobacco use Z72.0 [place] [id number] [place] [address] 31768- 3829 Nov, [facility] [id number] [place] [address] Nov, [facility] [id number] [place] [address]85- 1570 Nov, Wellness examination Z00.00 ; Encounter for immunization Z23 ; Screening for osteoporosis Z13.820 ; Screening for breast cancer Z12.31 and Left breast lump N63.20 [facility] [address] [address] Oct, Dental examination Z01.20 [facility] [address] [place] [address] 81496- 3826 Oct, [facility] [address] [id number] [place] [address] 29331- 5108 Oct, [facility] [id number] [place] [address] 11677- 9518 16 Sep, 2017 [facility] [address] [id number] [place] [address] 23496- 4315 Sep, [facility] [address] [place] [address] 27611- 8050 14 Sep, 2017 Left otitis media with effusion H65.92 ; Acute suppurative otitis media of right ear without spontaneous rupture of tympanic membrane, recurrence not specified H66.001 ; Dizziness R42 and Fatigue 780.79 [facility] [address] [place] [address] 15343- 2697 Aug, Major depressive disorder, recurrent episode, moderate [...] [facility] [id number] [place] [address]0452 Aug, Ingrown right big toenail L60.0 [facility] [address] [place] [address] 29678- 6883 Aug, [facility] [id number] [place] [address] 33058- 9151 Aug, PTSD (post-traumatic stress disorder) F43.10 [facility] [address] [address] Aug, Major depressive disorder, recurrent episode, moderate F33.1 ; Generalized anxiety disorder F41.1 and Cannabis abuse F12.10 [facility] [address], [place] [address] Jul, [facility] [address] [id number] [place] [address] 75907- 9475 Jul, [facility] [address] [place] [address] 43030- 2883 Jul, [facility] [address] [id number] [place] [address] 79373- 1950 Jul, Major depressive disorder, recurrent episode, moderate F33.1 ; Generalized anxiety disorder F41.1 and Cannabis abuse F12.10 [facility] [address] [address] [id number] [place] [address] 82131- 7840 Jul, [facility] [address] [place] [address] 67141- 0406 Jul, [place] [address] [place] [address] 81938- 3774 Jul, Hyperlipidemia 272.4 [facility] [address] [place] [address] 16749- 5662 Jul, PTSD (post-traumatic stress disorder) F43.10 [facility] [address] [address] 8845 14 Jul, 2017 Tobacco use Z72.0 ; [...] anxiety disorder F41.1 and Cannabis abuse F12.10 [facility] [address] [address] 4[address] Jul, [facility] [id number] [place] [address] 70063- 6836 Jul, Dysuria R30.0 and Mixed hyperlipidemia E78.2 [facility] [address] [place] [address] 80303- 0216 Jun, Major depressive disorder, recurrent episode, moderate F33.1 ; Generalized anxiety disorder F41.1 and Cannabis abuse F12.10 [facility] [address] [place] [address] 70906- 6942 Jun, [facility] [id number] [place] [address] 88733- 0244 Jun, Generalized anxiety disorder F41.1 ; Major depressive disorder, recurrent episode, moderate F33.1 ; PTSD (post-traumatic stress disorder) F43.10 ; Opioid use disorder, moderate, in sustained remission F11.21 ; Cannabis abuse F12.10 ; Alcohol use disorder, mild, 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 ; Methamphetamine use disorder, severe, 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 ; Cocaine use disorder, moderate, in sustained remission F14.21 and Tobacco use Z72.0 [facility] [address] [address]64 Jun, Major depressive disorder, recurrent episode, moderate F33.1 ; Generalized anxiety disorder F41.1 and Cannabis abuse F12.10 [facility] [address] [address]- 6187 Jun, [facility] [address] [place] [address] 41327- 8279 Jun, [facility] [address] [place] [address] 74980- 4141 Jun, Major depressive disorder, recurrent episode, moderate F33.1 ; Generalized anxiety disorder F41.1 and Cannabis abuse F12.10 [facility] [address] [address] Mar, Dental examination Z01.20 [facility] [address] [id number] Feb, Dental examination Z01.20 [facility] [address], [place] [address]- 6434 Mar, [facility] [address] [id number] [place] [address] 79521- 8790 Mar, [facility] [id number] [place] [address] 81091- 9207 Feb, Hyperlipidemia 272.4 and Prediabetes 790.29 [facility] [id number] [place] [address] 86382- 3952 Feb, Fatigue 780.79 and Hyperlipidemia 272.4 [facility] [id number] [place] [address] 50840- 9691 Feb, Lumbago 724.2 ; Hyperlipidemia 272.4 ; Insomnia 780.52 and Fatigue 780.79 [facility] [address] [address]- 3998 Nov, [facility] [address] [place] [address] 86741- 6531 Nov, [facility] [address], [place] [address]- 9199 Mar, [facility] [address], [place] [address]- 8250 Mar, [facility] [address], [place] [address]- 0817 Jan, [facility] [id number] [place] [address] 61558- 5116 Jan, [facility] [address] [address]- 9258 December, [facility] [address] [place] [place] [id number] [place] [address], [place] [address]- 8273 December, [facility] [place] [facility] [address] [id number] [place] [address]- 8891 30 Nov, 2013 [facility] [place] [facility] [address] [id number] [place] [address]- 1514 30 Nov, 2013 [facility] [place] [facility] [address] [id number] [place] [address]- 8359 Nov, [facility] [place] [facility] [address] [id number] [place] [address]- 7671 Nov, [facility] [place] [facility] [address] [id number] [place] [address]- 0730 Nov, [facility] [place] [facility] [address] [id number] [place] [address]- 9330 Nov, [facility] [place] [facility] [address] [id number] [place] [address]- 8597 Oct, [facility] [place] [facility] [address] [id number] [place] [address]- 9308 31 Oct, 2013 [facility] [place] [facility] [address] [id number] [place] [address]- 1258 Oct, [facility] [place] [facility] [address] [id number] [place] [address]- 6792 20 Oct, 2013 [facility] [place] [facility] [address] [id number] [place] [address]- 7588 19 Oct, 2013 [facility] [place] [facility] [address] [id number] [place] [address]- 1991 19 Oct, 2013 [facility] [place] [facility] [address] [id number] [place] [address]- 6241 12 Oct, 2013 [facility] [place] [facility] [address] [id number] [place] [address]- 7805 12 Oct, 2013 [facility] [place] [facility] [address] [id number] [place] 7496 11 Oct, 2013 [facility] [place] [facility] [address] [id number] [place] [address]- 6727 Oct, [facility] [place] [facility] [address] [id number] [place] [address]- 2099 Oct, [facility] [place] [facility] [address] [id number] [place] [address]- 4219 Oct, [facility] [place] [facility] [address] [id number] [place] [address]- 8604 Oct, [facility] [place] [facility] [address] [id number] [place] [address]- 0374 Sep, [facility] [place] [facility] [address] [id number] [place] [address]- 2811 24 Sep, 2013 [facility] [place] [facility] [address] [id number] [place] [address]- 3068 Sep, [facility] [place] [facility] [address] [id number] [place] [address]- 7648 Sep, [facility] [place] [facility] [address] [id number] [place] [address]- 4024 Sep, [facility] [place] [facility] [address] [id number] [place] [address]- 2897 Sep, [facility] [place] [facility] [address] [id number] [place] [address]- 8849 18 Sep, 2013 [facility] [place] [facility] [address] [id number] [place] [address]- 5449 18 Sep, 2013 [facility] [place] [facility] [address] [id number] [place] [address]- 1742 14 Sep, 2013 [facility] [place] [facility] [address] [id number] [place] [address]- 4139 14 Sep, 2013 [facility] [place] [facility] [address] [id number] [place] [address]- 5622 Sep, [facility] [place] [facility] [address] [id number] [place] [address]- 9299 14 Sep, 2013 [facility] [place] [facility] [address] [id number] [place] [address]- 6678 14 Sep, 2013 [facility] [place] [facility] [address] [id number] [place] [address]- 7106 14 Sep, 2013 [facility] [place] [facility] [address] [id number] [place] [address]- 8842 Sep, [facility] [place] [facility] [address] [id number] [place] [address]- 5606 Sep, [facility] [place] [facility] [address] [id number] [place] [address]- 0117 Sep, [facility] [place] [facility] [address] [id number] [place] [address]- 4623 Sep, [facility] [place] [facility] [address] [id number] [place] [address]- 3751 Sep, [facility] [place] [facility] [address] [id number] [place] [address]- 1256 Sep, [facility] [place] [facility] [address] [facility] [id number] [place] [address]- 9928 Aug, [facility] [place] [facility] [address] [id number] [place] [address]- 3503 Aug, [facility] [place] [facility] [address] [id number] [place] [address]- 7517 Aug, [facility] [place] [facility] [address] [id number] [place] [address]- 1201 Aug, [facility] [place] [facility] [address] [id number] [place] [address]- 3462 Aug, [facility] [place] [facility] [address] [id number] [place] [address]- 5477 Jul, [facility] [place] [facility] [address] [id number] [place] [address]- 0121 Jul, [facility] [place] [facility] [address] [id number] [place] [address]- 7555 Jul, [facility] [place] [facility] [address] [id number] [place] 9250 Jul, [facility] [place] [facility] [address] [facility] [id number] [place] [address]- 7305 Jul, [facility] [place] [facility] [address] [id number] [place] [address]- 5323 Jul, [facility] [place] [facility] [address] [id number] [place] 5121 Jul, [facility] [place] [facility] [address] [facility] [id number] [place] [address]- 1765 Jul, [facility] [place] [facility] [address] [facility] [id number] [place] [address]- 0419 Jul, [facility] [place] [facility] [address] [id number] [address]- 0334 Jun, [facility] [place] [facility] [address] [id number], [place] [address]- 5082 Jun, [facility] [place] [facility] [address] [id number], [place] [address]- 9507 Jun, [facility] [place] [facility] [address] [id number], [place] [address]- 1302 Jun, [facility] [place] [facility] [address] [id number], [place] [address]- 3931 Jun, [facility] [place] [facility] [address] [id number], [place] [address]- 4081 Jun, [facility] [place] [facility] [address] [facility] [id number], [place] [address]- 4241 Jun, [facility] [place] [facility] [address] [facility] [id number][place] [address]- 8475 Jun, [facility] [place] [facility] [address] [id number] [place] [address]- 8747 Jun, [facility] [address] [id number] [place] [address]- 8493 Jun, [facility] [place] [facility] [address] [id number] [place] [address]- 0703 May, [facility] [place] [facility] [address] [id number] [place] [address]- 5136 May, [facility] [place] [facility] [address] [id number] [place] [address]- 2536 May, [facility] [place] [facility] [address] [id number] [place] [address]- 6230 May, [facility] [place] [facility] [address] [id number] [place] [address]- 8093 May, [facility] [place] [facility] [address] [id number] [place] [address]- 2272 May, [facility] [place] [facility] [address] [id number] [place] [address]- 5759 May, [facility] [place] [facility] [address] [id number] [place] [address]- 2868 May, [facility] [place] [facility] [address] [id number] [place] [address]- 1070 May, [facility] [place] [facility] [address] [id number] [place] [address]- 5804 26 Apr, 2013 [facility] [place] [facility] [address] [id number] [place] [address]- 7699 16 Apr, 2013 [facility] [place] [facility] [address] [id number] [place] 2814 12 Apr, 2013 [facility] [place] [facility] [address] [id number] [place] [address]- 2540 06 Apr, 2013 [facility] [place] [facility] [address] [id number] [place] 5329 Mar, [facility] [place] [facility] [address] [id number] [place] [address]- 1999 Mar, [facility] [place] [facility] [address] [id number] [place] [address]- 2087 Mar, [facility] [place] [facility] [address] [id number] [place] [address]- 6031 Mar, [facility] [place] [facility] [address] [id number] [place] [address]- 4533 Mar, [facility] [place] [facility] [address] [id number] [place] [address]- 3900 Mar, [facility] [place] [facility] [address] [id number] [place] [address]- 6326 Mar, [facility] [place] [facility] [address] [id number] [place] [address]- 4549 Feb, [facility] [place] [facility] [address] [id number] [place] [address]- 9871 Feb, [facility] [place] [facility] [address] [id number] [place] [address]- 7127 Feb, [facility] [place] [facility] [address] [id number] [place] [address]- 4538 Feb, [facility] [place] [facility] [address] [id number] [place] [address]- 5707 Feb, [facility] [place] [facility] [address] [id number] [place] [address]- 0317 Feb, [facility] [place] [facility] [address] [id number] [place] [address]- 3538 Feb, [facility] [place] [facility] [address] [id number] [place] [address]- 2478 Feb, [facility] [place] [facility] [address] [id number] [place]- 3596 Feb, [facility] [place] [facility] [address] [id number] [place] [address]- 9145 Feb, [facility] [address] [id number] [place] [address]- 8225 Feb, [facility] [address] [id number] [place] [address]- 1301 Jan, [facility] [address] [id number] [place] [address]- 5792 Jan, [facility] [address] [id number] [place] [address]- 1508 December, [facility] [address] [id number] [place] [address]- 7703 December, [facility] [address] [id number] [place] [address]- 4003 Nov, [facility] [address] [id number] [place] [address]- 4163 Nov, [facility] [address] [id number] [place] [address]- 7611 Oct, [facility] [address] [id number] [place] [address]- 4538 Oct, [facility] [address] [id number] [place] [address]- 3915 Oct, [facility] [address] [id number] [place] [address]- 2182 Oct, [facility] [place] [facility] [address] [id number] [place] [address]- 8530 Sep, [facility] [place] [facility] [address] [id number] [place] [address]- 4077 Sep, [facility] [place] [facility] [address] [id number] [place] [address]- 0763 Sep, [facility] [place] [facility] [address] [facility] [id number], [place] [address]- 3693 Sep, [facility] [place] [facility] [address] [id number] [place] [address]- 1503 Aug, [facility] [place] [facility] [address] [id number] [place] [address]- 0982 Aug, [facility] [place] [facility] [address] [id number] [place] [address]- 9276 Jul, [facility] [place] [facility] [address] [id number] [place] [address]- 3199 Jul, [facility] [place] [facility] [address] [id number] [place] [address]- 6445 Jul, [facility] [place] [facility] [address] [id number] [place] [address]- 2487 Jul, [facility] [place] [facility] [address] [id number] [place] [address]- 5765 Jul, [facility] [place] [facility] [address] [id number] [place] [address]- 6741 Jul, [facility] [place] [facility] [address] [id number] [place] [address] Jun, [facility] [place] [facility] [address] [id number] [place] [address] Jun, [facility] [place] [facility] [address] [id number] [place] [address] Jun, [facility] [place] [facility] [address] [id number] [place] [address] Jun, [facility] [place] [facility] [address] [id number] [place] [address] Jun, [facility] [place] [facility] [address] [id number] [place] [address] May, [facility] [place] [facility] [address] [id number] [place] [address] May, [facility] [place] [facility] [address] [id number] [place] [address] May, [facility] [place] [facility] [address] [id number] [place] [address] May, [facility] [place] [facility] [address] [id number] [place] [address] May, [facility] [place] [facility] [address] [id number] [place] [address] May, [facility] [place] [facility] [address] [id number] [place] [address] May, [facility] [place] [facility] [address] [id number] [place] [address] May, [facility] [place] [facility] [address] [id number] [place] [address] Mar, [facility] [place] [facility] [address] [id number] [place] [address] Mar, [facility] [place] [facility] [address] [id number] [place] [address] Mar, [facility] [place] [facility] [address] [id number] [place] [address] 2010 Feb, [facility] [place] [facility] [address] [id number] [place] [address] Feb, [facility] [place] [facility] [address] [id number] [place] [address] Feb, [facility] [place] [facility] [address] [id number] [place] [address] Feb, [facility] [place] [facility] [address] [id number] [place] [address] Jan, [facility] [place] [facility] [address] [id number] [place] [address] Jan, [facility] [place] [facility] [address] [id number] [place] [address] Jan, [facility] [place] [facility] [address] [id number] [place] [address] December, [facility] [address] [id number] [place] [address] Nov, [facility] [address] [id number] [place] [address] Oct, [facility] [address] [id number] [place] [address] Oct, [facility] [address] [id number] [place] [address] Oct, [facility] [address] [id number] [place] [address] Oct, [facility] [address] [id number] [place] [address] Aug, [facility] [address] [id number] [place] [address] Aug, [facility] [address] [id number] [place] [address] Aug, [facility] [address] [id number] [place] [address] Aug, [facility] [address] [id number] [place] [address] Aug, [facility] [address] [id number] [place] [address] Aug, [facility] [address] [id number] [place] [address] Aug, [facility] [address] [id number] [place] [address] Aug, [facility] [address] [id number] [place] [address] Jul, [facility] [address] [id number] [place] [address] Jun, [facility] [address] [id number] [place] [address] 29 Jun, 2011 [facility] [place] [facility] [address] [id number] [place] [address] 31 Jul, 2010 [facility] [place] [facility] [address] [id number] [place] [address] 22 Jul, 2010 [facility] [place] [facility] [address] [id number] [place] [address] Jul, [facility] [address] [id number] [place] [address] 14 Jul, 2010 [facility] [place] [facility] [address] [id number] [place] [address] 14 Jul, 2010 [facility] [address] [id number] [place] [address] 24 Jun, 2010 [facility] [address] [id number] [place] [address] May, [facility] [place] [facility] [address] [id number] [place] [address] Mar, [facility] [place] [facility] [address] [id number] [place] [address] Oct, [facility] [place] [facility] [address] [id number] [place] [address] Aug, [facility] [place] [facility] [address] [id number][place] [address] 15 Jul, 2009 [facility] [place] [facility] [address] [id number] [place] [address] Jul, [facility] [place] [facility] [address] [id number] [place] [address] Jun, [facility] [place] [facility] [address] [id number] [place] [address] Jun, [facility] [place] [facility] [address] [id number][place] [address] May, [facility] [address] [facility] [id number][place] [address] May, [facility] [address] [facility] [id number], [place] [address] Mar, [facility] [address] [facility] [id number], [place] [address] Mar, [place] [address] [facility] [id number], [place] [address] Oct, IMMUNIZATIONS No Known Immunizations SOCIAL HISTORY Never Assessed REASON FOR VISIT f/u-Katty [facility] PLAN OF CARE Activity Details Follow Up 6 Weeks Reason: VITAL SIGNS Height 68 in 2017-07-20 Weight 195.6 lbs 2017-07-20 Heart Rate 91 bpm 2017-07-20 Respiratory Rate 20 2017-07-20 BMI 29.74 kg/m2 2017-07-20 Blood pressure systolic 104 mmHg 2017-07-20 Blood pressure diastolic 68 mmHg 2017-07-20 MEDICATIONS Medication Instructions Dosage Frequency Start Date End Date Duration Status Trazodone HCl 100 MG Orally Once a day 1 tablet at bedtime 24h Feb, 30 days Active Xanax 1 mg Orally three times a day 1 tablet 8h Oct, 30 days Active Naproxen 500 MG Orally 2 times a day 1 tablet as needed 12h Active cyclobenzaprine 10 mg 1 tablet every 6 hours PRN 8h Oct, Active Prozac 20 MG Orally daily 1 capsule 24h Jun, [...] disc replacement L1- L5 - Dr Muhammad ([place]) Surgical History appendectomy 1984 Surgical History hysterectomy 1993 Surgical History dilatation and curettage Surgical History heart cath- Dr Shaw [address] Meza bowel and intestines seperated 2015 Hospitalization History Hospitalization for surgery only
--- OUTSIDE RECORDS SUMMARY | 2018-04-23 11:44 | XMS REPORT ---
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 Name Role Phone [facility] Unavailable PROBLEMS Type Condition ICD9-CM Code [id number] Code Onset Dates Condition Status SNOMED Code Problem Major depressive disorder, recurrent episode, moderate F33.1 Active 702437579 Problem PTSD (post-traumatic stress disorder) F43.10 Active 01763856 Problem Cannabis abuse F12.10 Active 17160082 Problem GERD with esophagitis K21.0 Active 016231926 Problem Spasm of muscle 728.85 Active 42391963 Problem Cocaine use disorder, moderate, in sustained remission F14.21 Active 02821359 Problem Diarrhea 787.91 Active 59002220 Problem Alcohol use disorder, mild, 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 Active 29676523 Problem Tobacco use Z72.0 Active 988209142 Problem Methamphetamine use disorder, severe, 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2 Active 384717768 Problem Insomnia 780.52 Active 375499064 Problem Generalized anxiety disorder F41.1 Active 05941960 ALLERGIES No Information ENCOUNTERS Encounter Location Date Diagnosis [facility] [address] [facility] [id number] [address] Feb, [facility] [id number] [place] [address]- [address]375 Jan, Cocaine use disorder, moderate, in sustained [...] Major depressive disorder, recurrent episode, moderate F33.1 [place] [id number] [place] [address]34- 1514 Jan, Dysuria R30.0 and GERD with esophagitis K21.0 [place] [id number] [place] [address]42- 8128 December, Major depressive disorder, recurrent episode, moderate F33.1 [place] [id number] [place] [address] 23230- 8632 December, [place] [id number] [place] [address] 59200- 3967 December, Major depressive disorder, recurrent episode, moderate [...] sustained remission F10.11 and Tobacco use Z72.0 [place] [id number] [place] [address]333- 1430 Nov, [facility] [address] [place] [id number] [place] [address] Nov, [place] [id number] [place] [address] 45642- 3507 Nov, Wellness examination Z00.00 ; Encounter for immunization Z23 ; Screening for osteoporosis Z13.820 ; Screening for breast cancer Z12.31 and Left breast lump N63.20 [facility] [id number] [id number] Oct, Dental examination Z01.20 [facility] [address] [address] 77[address] Oct, [facility] [address] [address] 54[address] Oct, [facility] [address] [address] 1235 Sep, [facility] [id number] [place] [address] 19280- 9365 Sep, [facility] [id number] [place] [address] 37955- 8920 14 Sep, 2017 Left otitis media with effusion H65.92 ; Acute suppurative otitis media of right ear without spontaneous rupture of tympanic membrane, recurrence not specified H66.001 ; Dizziness R42 and Fatigue 780.79 [facility] [address] [address] Aug, Major depressive disorder, recurrent episode, moderate [...] sustained remission F10.11 and Tobacco use Z72.0 [facility] [address] [id number] [address] Aug, Ingrown right big toenail L60.0 [facility] [address] [address] Aug, [facility] [address] [address] 1554 Aug, PTSD (post-traumatic stress disorder) F43.10 [facility] [address] [address] 9646 Aug, Major depressive disorder, recurrent episode, moderate F33.1 ; Generalized anxiety disorder F41.1 and Cannabis abuse F12.10 [facility] [address] [address] 9946 Jul, [facility] [id number] [place] [address] 26568- 1236 Jul, [facility] [address] [address] 8106 Jul, [facility] [id number] [place] [address] 61663- 5616 Jul, Major depressive disorder, recurrent episode, moderate F33.1 ; Generalized anxiety disorder F41.1 and Cannabis abuse F12.10 [facility] [address] [address] 5156 Jul, [facility] [id number] [place] [address] 03565- 8876 Jul, [facility] [id number] [place] [address] 60952- 5446 Jul, Hyperlipidemia 272.4 [facility] [address] [address]- 6536 Jul, PTSD (post-traumatic stress disorder) F43.10 [facility] [address] [address] 4348 14 Jul, 2017 Tobacco use Z72.0 ; [...] abuse F12.10 [facility] [address] [address] 3824 Jul, [facility] [id number] [place] [address] 75603- 9006 Jul, Dysuria R30.0 and Mixed hyperlipidemia E78.2 [facility] [id number] [place] [address] 27150- 9903 Jun, Major depressive disorder, recurrent episode, moderate F33.1 ; Generalized anxiety disorder F41.1 and Cannabis abuse F12.10 [facility] [id number] [place] [address] 86853- 8012 Jun, [place] [id number] [place] [address] 47847- 0272 Jun, Generalized anxiety disorder F41.1 ; Major [...] use Z72.0 [facility] [id number] [place] [address] 79274- 8081 Jun, Major depressive disorder, recurrent episode, moderate F33.1 ; Generalized anxiety disorder F41.1 and Cannabis abuse F12.10 [facility] [address] [address]- 4121 Jun, [facility] [address] [address]- 8080 Jun, [facility] [id number] [place] [address] 61975- 3387 Jun, Major depressive disorder, recurrent episode, moderate F33.1 ; Generalized anxiety disorder F41.1 and Cannabis abuse F12.10 [facility] [id number] [place] [id number] Mar, Dental examination Z01.20 [facility] [id number] [id number] Feb, Dental examination Z01.20 [facility] [address] 6695 Mar, [facility] [id number] [place] [address] 94281- 4980 Mar, [facility] [id number] [place] [address] 04399- 2692 Feb, Hyperlipidemia 272.4 and Prediabetes 790.29 [facility] [id number] [place] [address] 14599- 9743 Feb, Fatigue 780.79 and Hyperlipidemia 272.4 [facility] [id number] [place] [address] 95512- 5661 Feb, Lumbago 724.2 ; Hyperlipidemia 272.4 ; Insomnia 780.52 and Fatigue 780.79 [facility] [address] [address]- 3322 Nov, [facility] [id number] [place] [address] 19127- 7368 Nov, [facility] [address] [address]- 0955 Mar, [facility] [address] [address]- 2404 Mar, [facility] [address] [address] Jan, [facility] [id number] [place] [address] 28334- 4580 Jan, [facility] [address] [address]- 1176 December, [facility] [id number] [place] [address] 05706- 1945 December, [facility] [place] [facility] [address] [id number] [place] [address]- 5827 Nov, [facility] [place] [facility] [address] [id number] [place] 7828 Nov, [facility] [place] [facility] [address] [id number] [place] [address]- 2323 Nov, [facility] [place] [facility] [address] [id number] [place] [address]- 8917 Nov, [facility] [place] [facility] [address] [id number] [place] [address]- 4652 Nov, [facility] [place] [facility] [address] [id number] [place] [address]- 7471 Nov, [facility] [place] [facility] [address] [id number] [place] [address]- 5889 Oct, [facility] [place] [facility] [address] [id number] [place] [address]- 7344 31 Oct, 2013 [facility] [place] [facility] [address] [id number] [place] [address]- 8464 Oct, [facility] [place] [facility] [address] [id number] [place] [address]- 4656 Oct, [facility] [place] [facility] [address] [id number] [place] [address]- 0701 Oct, [facility] [place] [facility] [address] [id number] [place] [address]- 3522 19 Oct, 2013 [facility] [place] [facility] [address] [id number] [place] [address]- 1030 Oct, [facility] [place] [facility] [address] [id number] [place] [address]- 5802 Oct, [facility] [place] [facility] [address] [id number] [place] [address]- 5404 Oct, [facility] [place] [facility] [address] [id number] [place] [address]- 5888 04 Oct, 2013 [facility] [place] [facility] [address] [id number] [place] [address]- 4536 Oct, [facility] [place] [facility] [address] [id number] [place] [address]- 4711 Oct, [facility] [place] [facility] [address] [id number] [place] [address]- 1126 Oct, [facility] [place] [facility] [address] [id number] [place] [address]- 3584 24 Sep, 2013 [facility] [place] [facility] [address] [id number] [place] [address]- 3271 Sep, [facility] [place] [facility] [address] [facility] [id number] [place] [address]- 3070 Sep, [facility] [place] [facility] [address] [id number] [place] [address]- 0404 Sep, [facility] [place] [facility] [address] [id number] [place] [address]- 9524 Sep, [facility] [place] [facility] [address] [facility] [id number] [place] [address]- 5336 Sep, [facility] [place] [facility] [address] [facility] [id number] [place] [address]- 1221 18 Sep, 2013 [facility] [place] [facility] [address] [facility] [id number] [place] [address]- 5124 18 Sep, 2013 [facility] [place] [facility] [address] [facility] [id number] [place] [address]- 2544 14 Sep, 2013 [facility] [place] [facility] [address] [id number] [place] [address]- 4343 14 Sep, 2013 [facility] [place] [facility] [address] [facility] [id number] [place] [address]- 7349 14 Sep, 2013 [facility] [place] [facility] [address] [facility] [id number] [place] [address]- 0520 14 Sep, 2013 [facility] [place] [facility] [address] [id number] [place] [address]- 2888 14 Sep, 2013 [facility] [place] [facility] [address] [id number] [place] [address]- 7956 14 Sep, 2013 [facility] [place] [facility] [address] [id number] [place] [address]- 8146 Sep, [facility] [place] [facility] [address] [id number] [place] [address]- 0501 Sep, [facility] [place] [facility] [address] [id number] [place] [address]- 5740 Sep, [facility] [place] [facility] [address] [id number] [place] [address]- 6269 Sep, [facility] [place] [facility] [address] [id number] [place] [address]- 8374 Sep, [facility] [place] [facility] [address] [id number] [place] [address]- 7877 Sep, [facility] [place] [facility] [address] [id number] [place] [address]- 0895 Aug, [facility] [place] [facility] [address] [id number] [place] [address]- 6776 Aug, [facility] [place] [facility] [address] [id number] [place] [address]- 5187 Aug, [facility] [place] [facility] [address] [id number] [place] [address]- 8556 Aug, [facility] [place] [facility] [address] [id number] [place] [address]- 5378 Aug, [facility] [place] [facility] [address] [id number] [place] [address]- 6455 Jul, [facility] [place] [facility] [address] [id number] [place] [address]- 8120 Jul, [facility] [place] [facility] [address] [id number] [place] [address]- 1902 Jul, [facility] [place] [facility] [address] [id number] [place] [address]- 4274 Jul, [facility] [place] [facility] [address] [id number] [place] 6330 Jul, [facility] [place] [facility] [address] [id number] [place] [address]- 3735 Jul, [facility] [place] [facility] [address] [id number] [place] [address]- 6035 Jul, [facility] [place] [facility] [address] [id number] [place] [address]- 6428 Jul, [facility] [place] [facility] [address] [id number] [place] [address]- 2801 Jul, [facility] [place] [facility] [address] [id number] [address]- 0810 Jun, [facility] [place] [facility] [address] [id number] [address]- 7434 Jun, [facility] [place] [facility] [address] [id number] [address]- 8081 Jun, [facility] [place] [facility] [address] [id number] [place] [address]- 3649 Jun, [facility] [place] [facility] [address] [id number] [address]- 1212 Jun, [facility] [place] [facility] [address] [id number] [address]- 1800 Jun, [facility] [place] [facility] [address] [id number] [place] [address]- 1440 Jun, [facility] [place] [facility] [address] [facility] [id number] [place] [address]- 2116 Jun, [facility] [place] [facility] [address] [id number] [address]- 2345 Jun, [facility] [place] [facility] [address] [id number] [place] [address]- 9555 Jun, [facility] [place] [facility] [address] [id number] [place] [address]- 7095 May, [facility] [place] [facility] [address] [id number] [place] [address]- 2001 May, [facility] [place] [facility] [address] [id number] [place] [address]- 6432 May, [facility] [place] [facility] [address] [id number] [place] [address]- 8364 May, [facility] [place] [facility] [address] [id number] [place] [address]- 9385 May, [facility] [place] [facility] [address] [id number] [address]- 8113 May, [facility] [place] [facility] [address] [id number] [place] [address]- 5885 May, [facility] [place] [facility] [address] [id number] [place] [address]- 8940 May, [facility] [place] [facility] [address] [id number] [place] [address]- 6067 May, [facility] [place] [facility] [address] [id number] [place] [address]- 1808 26 Apr, 2013 [facility] [place] [facility] [address] [id number] [address]- 2482 16 Apr, 2013 [facility] [place] [facility] [address] [id number] [place] [address]- 6202 12 Apr, 2013 [facility] [place] [facility] [address] [facility] [id number]- 0113 06 Apr, 2013 [facility] [place] [facility] [address] [id number] [place] [address]- 7226 Mar, [facility] [place] [facility] [address] [id number] [place] [address]- 6781 Mar, [facility] [place] [facility] [address] [id number] [place] [address]- 8439 Mar, [facility] [place] [facility] [address] [id number] [place] [address]- 9756 Mar, [facility] [place] [facility] [address] [id number] [place] [address]- 5114 Mar, [facility] [place] [facility] [address] [id number] [place] [address]- 4210 Mar, [facility] [place] [facility] [address] [id number] [place] [address]- 9627 Mar, [facility] [place] [facility] [address] [id number] [place] [address]- 4906 Feb, [facility] [place] [facility] [address] [id number] [place] [address]- 0082 Feb, [facility] [place] [facility] [address] [id number] [place] [address]- 8472 Feb, [facility] [place] [facility] [address] [id number] [place] [address]- 6935 Feb, [facility] [place] [facility] [address] [id number] [place] [address]- 1389 Feb, [facility] [place] [facility] [address] [id number] [place] [address]- 9437 Feb, [facility] [place] [facility] [address] [id number] [place] [address]- 2545 Feb, [facility] [place] [facility] [address] [id number] [place] [address]- 9775 Feb, [facility] [place] [facility] [address] [id number] [place] [address] 254 Feb, [facility] [place] [facility] [address] [id number] [place] [address]- 0626 Feb, [facility] [address] [id number] [place] [address]- 7200 Feb, [facility] [place] [facility] [address] [id number] [place] [address]- 2553 Jan, [facility] [place] [facility] [address] [id number] [place] [address]- 7203 Jan, [facility] [place] [facility] [address] [id number] [place] [address]- 0844 December, [facility] [place] [facility] [address] [id number] [place] [address]- 0095 December, [facility] [place] [facility] [address] [id number] [place] [address]- 3456 Nov, [facility] [place] [facility] [address] [id number] [place] [address]- 1445 Nov, [facility] [place] [facility] [address] [id number] [place] [address]- 6651 Oct, [facility] [place] [facility] [address] [id number] [place] [address]- 5388 Oct, [facility] [place] [facility] [address] [id number] [place] [address]- 5891 Oct, [facility] [place] [facility] [address] [id number] [place] [address]- 0573 Oct, [facility] [place] [facility] [address] [id number] [place] [address]- 2275 Sep, [facility] [place] [facility] [address] [id number] [place] [address]- 3778 Sep, [facility] [place] [facility] [address] [id number] [place] [address]- 5866 Sep, [facility] [place] [facility] [address] [id number] [place] [address]- 6871 Sep, [facility] [place] [facility] [address] [id number] [place] [address]- 2746 Aug, [facility] [address] [id number] [place] [address]- 0005 Aug, [facility] [place] [facility] [address] [id number] [place] [address]- 4979 Jul, [facility] [address] [id number] [place] [address]- 7507 Jul, [facility] [address] [id number] [place] [address]- 4749 Jul, [facility] [address] [id number] [place] [address], [place] [address]- 2158 Jul, [facility] [address] [id number] [place] [address] Jul, [facility] [address] [id number] [place] [address] Jul, [facility] [address] [id number] [place] [address] Jun, [facility] [place] [facility] [address] [id number] [place] [address] Jun, [facility] [address] [id number] [place] [address] Jun, [facility] [place] [facility] [address] [id number] [place] [address] Jun, [facility] [place] [facility] [address] [id number] [place] [address] Jun, [facility] [place] [facility] [address] [id number] [place] [address] May, [facility] [place] [facility] [address] [id number] [place] [address] May, [facility] [place] [facility] [address] [id number] [place] [address] May, [facility] [place] [facility] [address] [id number] [place] [address] May, [facility] [place] [facility] [address] [id number] [place] [address] May, [facility] [place] [facility] [address] [id number] [place] [address] May, [facility] [place] [facility] [address] [id number] [place] [address] May, [facility] [place] [facility] [address] [id number] [place] [address] May, [facility] [place] [facility] [address] [id number] [place] [address] Mar, [facility] [place] [facility] [address] [id number] [place] [address] Mar, [facility] [place] [facility] [address] [id number] [place] [address] Mar, [facility] [place] [facility] [address] [id number] [place] [address] Feb, [facility] [place] [facility] [address] [id number] [address] Feb, [facility] [place] [facility] [address] [id number] [place] [address] Feb, [facility] [place] [facility] [address] [id number] [place] [address] Feb, [facility] [place] [facility] [address] [id number] [place] [address] Jan, [facility] [place] [facility] [address] [id number] [place] [address] Jan, [facility] [place] [facility] [address] [id number] [place] [address] Jan, [facility] [place] [facility] [address] [id number] [address] December, [facility] [address] [id number] [place] [address] Nov, [facility] [place] [facility] [address] [id number] [place] [address] Oct, [facility] [place] [facility] [address] [id number] [place] [address] Oct, [facility] [place] [facility] [address] [id number] [place] [address] Oct, [facility] [address] [id number] [place] [address] Oct, [facility] [place] [facility] [address] [id number] [place] [address] Aug, [facility] [address] [id number] [place] [address] Aug, [facility] [place] [facility] [address] [id number] [place] [address] Aug, [facility] [address] [id number] [place] [address] Aug, [facility] [place] [facility] [address] [id number] [place] [address] Aug, [facility] [address] [id number] [place] [address] Aug, [facility] [place] [facility] [address] [id number] [place] [address] Aug, [facility] [place] [facility] [address] [id number] [place] [address]- [address] Aug, [facility] [place] [facility] [address] [facility] [id number] [place] [address]- [address] Jul, [facility] [place] [facility] [address] [id number] [place] [address] Jun, [facility] [place] [facility] [address] [id number] [place] [address]- [address] 29 Jun, 2011 [facility] [place] [facility] [address] [id number] [place] [address] 31 Jul, 2010 [facility] [place] [facility] [address] [id number] [place] [address] 22 Jul, 2010 [facility] [place] [facility] [address] [id number] [place] [address] 2546 22 Jul, 2010 [facility] [place] [facility] [address] [id number] [place] [address] 14 Jul, 2010 [facility] [place] [facility] [address] [id number] [place] [address]- [address] 14 Jul, 2010 [facility] [place] [facility] [address] [id number] [place] [address]- [address] 24 Jun, 2010 [facility] [place] [facility] [address] [id number] [place] [address] May, [facility] [place] [facility] [address] [id number] [place] [address] Mar, [facility] [place] [facility] [address] [id number] [place] [address] Oct, [facility] [place] [facility] [address] [id number] [place] [address]- [address] Aug, [facility] [place] [facility] [address] [id number] [place] [address]- [address] 15 Jul, 2009 [facility] [place] [facility] [address] [id number] [place] [address] 58[address] Jul, [facility] [place] [facility] [address] [id number] [place] [address]- 84[address] 06 Jun, 2009 [facility] [place] [facility] [address] [id number] [place] [address] Jun, [facility] [place] [facility] [address] [id number] [place] [address] May, [facility] [address] [facility] [id number] [place] [address] May, [facility] [address] [facility] [id number] [place] [address] Mar, [facility] [address] [facility] [id number] [place] [address] Mar, [facility] [address] [facility] [id number] [address] Oct, IMMUNIZATIONS No Known Immunizations SOCIAL HISTORY Never Assessed REASON FOR VISIT Lab results PLAN OF CARE VITAL SIGNS MEDICATIONS Medication Instructions Dosage Frequency Start Date End Date Duration Status Zetia 10 mg Orally Once a day 1 tablet 24h Jul, 30 day(s) Active RESULTS No Results PROCEDURES [...] disc replacement L1- L5 - Dr Muhammad ([facility]) Surgical History appendectomy 1983 Surgical History hysterectomy 1993 Surgical History dilatation and curettage Surgical History heart cath- Dr Shaw [address] Meza bowel and intestines 2015 Hospitalization History Hospitalization for surgery only
--- OUTSIDE RECORDS SUMMARY | 2018-04-23 11:45 | XMS REPORT ---
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 Name Role Phone WILD RODRIGUEZ Unavailable PROBLEMS Type Condition ICD9-CM Code [id number] Code Onset Dates Condition Status SNOMED Code Problem Generalized anxiety disorder F41.1 Active 16692364 Problem Cannabis abuse F12.10 Active 13507658 Problem Major depressive disorder, recurrent episode, moderate F33.1 Active 703701626 Problem Tobacco use Z72.0 Active 832527267 Problem Diarrhea 787.91 Active 67576215 Problem PTSD (post-traumatic stress disorder) F43.10 Active 34405295 Problem Opioid use disorder, moderate, in sustained remission F11.21 Active 81681056 Problem Alcohol use disorder, mild, 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 Active 80989488 Problem Cocaine use disorder, moderate, in sustained remission F14.21 Active 63758003 Problem Methamphetamine use disorder, severe, 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 Active 92756226 Problem Thoracic or lumbosacral neuritis or radiculitis, unspecified 724.4 Active 801840825 Problem Hematuria, unspecified 599.70 Active 13265503 Problem Spasm of muscle 728.85 Active 12987099 Problem Lumbago 724.2 Active 921812552 Problem Insomnia 780.52 Active 958842076 Problem Hyperlipidemia 272.4 Active 19989580 Problem Major depressive disorder, recurrent episode, severe, without mention of psychotic behavior 296.33 Active 50184332 Problem Prediabetes 790.29 Active 5395207 Problem Adjustment disorder with depressed mood 309.0 Active 36313919 Problem Mixed hyperlipidemia E78.2 Active 901196927 ALLERGIES Substance Reaction Event Type Date Status Pravastatin Sodium itching Drug Allergy Jul, Active Duragesic-100 vomiting- Patches only Drug Allergy Jul, Active ENCOUNTERS Encounter Location Date Diagnosis [facility] [address] [facility] [id number], [place] [address] Jan, [facility] [place] [address] [id number], [place] [address] Jan, [facility] [place] [id number] [place] [address] 84652- 0597 December, Major depressive disorder, recurrent episode, moderate F33.1 [facility] [place] [id number] [place] [address] 34683- 6073 December, [facility] [place] [id number] [place] [address] 23648- 1360 December, Major depressive disorder, recurrent episode, moderate [...] sustained remission F10.11 and Tobacco use Z72.0 [facility] [place] [id number] [place] [address] 56957- 6946 Nov, [facility] [id number] [place] [address] Nov, [facility] [place] [id number] [place] [address] 73061- 5730 Nov, Wellness examination Z00.00 ; Encounter for immunization Z23 ; Screening for osteoporosis Z13.820 ; Screening for breast cancer Z12.31 and Left breast lump N63.20 [facility] [address] [id number] [id number] Oct, Dental examination Z01.20 [facility] [place] [id number] [place] [address] 33396- 5393 Oct, [facility] [place] [id number] [place] [address] 76939- 1670 Oct, [facility] [place] [id number] [place] [address] 54809- 5633 16 Sep, 2017 [facility] [place] [id number] [place] [address] 42101- 8479 15 Sep, 2017 [facility] [place] [id number] [place] [address] 65197- 2658 14 Sep, 2017 Left otitis media with effusion H65.92 ; Acute suppurative otitis media of right ear without spontaneous rupture of tympanic membrane, recurrence not specified H66.001 ; Dizziness R42 and Fatigue [address] [place] [address] 19900- 7175 Aug, Major depressive disorder, recurrent episode, moderate [...] sustained remission F10.11 and Tobacco use Z72.0 [facility] [id number] [place] [address] 12505 -3379 Aug, Ingrown right big toenail L60.0 [facility] [place] [id number] [place] [address] 47621- 0492 Aug, [facility] [place] [id number] [place] [address] 46506- 4410 Aug, PTSD (post-traumatic stress disorder) F43.10 [address] [place] [id number] [place] [address] 59960- 4259 Aug, Major depressive disorder, recurrent episode, moderate F33.1 ; Generalized anxiety disorder F41.1 and Cannabis abuse F12.10 [facility] [place] [id number] [place] [address] 14745- 7630 Jul, [facility] [place] [id number] [place] [address] 15059- 1023 Jul, [place] [address], [place] [address] Jul, [place] [id number] [place] [id number] [address] Jul, Major depressive disorder, recurrent episode, moderate F33.1 ; Generalized anxiety disorder F41.1 and Cannabis abuse F12.10 [place] [id number] [place] [address] 14078- 7699 Jul, [place] [address] [place] [address] 73653- 5746 Jul, [place] [id number] [place] [address] 44427- 9932 Jul, Hyperlipidemia 272.4 [place] [id number] [place] [address] 88737- 5853 Jul, PTSD (post-traumatic stress disorder) F43.10 [place] [place] [address] [place] [address] 15588- 0947 Jul, Tobacco use Z72.0 ; Alcohol use [...] F41.1 and Cannabis abuse F12.10 [place] [address], [place] [address] 1872 Jul, [place] [id number] [place] [address] 93091- 0739 Jul, Dysuria R30.0 and Mixed hyperlipidemia E78.2 [place] [id number] [place] [address] 45603- 1083 Jun, Major depressive disorder, recurrent episode, moderate F33.1 ; Generalized anxiety disorder F41.1 and Cannabis abuse F12.10 [facility] [place] [address], [place] [address] 1666 Jun, [facility] [place] [id number] [place] [address] 88486- 1076 Jun, Generalized anxiety disorder F41.1 ; Major depressive disorder, recurrent episode, moderate F33.1 ; PTSD (post-traumatic stress disorder) F43.10 ; Opioid use disorder, moderate, in sustained remission F11.21 ; Cannabis abuse F12.10 ; Alcohol use disorder, mild, 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 ; Methamphetamine use disorder, severe, 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 ; Cocaine use disorder, moderate, in sustained remission F14.21 and Tobacco use Z72.0 [facility] [place] [id number] [place] [address] 29176- 5929 Jun, Major depressive disorder, recurrent episode, moderate F33.1 ; Generalized anxiety disorder F41.1 and Cannabis abuse F12.10 [facility] [place] [address] [place] [address] 65412- 4943 Jun, [facility] [place] [id number] [place] [address] 84994- 3868 Jun, [facility] [place] [id number] [place] [address] 69720- 9329 Jun, Major depressive disorder, recurrent episode, moderate F33.1 ; Generalized anxiety disorder F41.1 and Cannabis abuse F12.10 [facility] [address] [place] [address] [id number] Mar, Dental examination Z01.20 [facility] [address] [place] [address] [id number] Feb, Dental examination Z01.20 [facility] [place] [id number] [place] [address] 55029- 0414 Mar, [facility] [place] [id number] [place] [address] 28754- 0811 Mar, [facility] [place] [address] [place] [address]- 2553 15 Feb, 2015 Hyperlipidemia 272.4 and Prediabetes 790.29 [facility] [place] [id number] [place] [address] 87233- 2902 Feb, Fatigue 780.79 and Hyperlipidemia 272.4 [facility] [place] [id number] [place] [address] 85725- 6959 Feb, Lumbago 724.2 ; Hyperlipidemia 272.4 ; Insomnia 780.52 and Fatigue 780.79 [facility] [place] [id number] [place] [address]- 4777 Nov, [facility] [place] [id number] [place] [address], [place] [address]- 1852 Nov, [facility] [place] [id number] [place] [address] 22948- 2757 Mar, [facility] [place] [id number] [place] [address] 34243- 4409 Mar, [facility] [place] [address], [place] [address]- 4774 Jan, [facility] [place] [address], [place] [address]- 3523 Jan, [facility] [place] [address], [place] [address]- 0949 December, [facility] [place] [address], [place] [address]- 7068 December, [facility] [place] [address], [place] [address]- 8121 Nov, [facility] [place] [id number] [place] [address]- 3490 Nov, [facility] [place] [address], [place] [address]- 4736 Nov, [facility] [place] [address], [place] [address]- 1154 Nov, [facility] [place] [facility] [address] [id number] [place] [address]- 0846 Nov, [facility] [place] [facility] [address] [id number] [place] [address]- 6886 Nov, [facility] [place] [facility] [address] [id number] [place] [address]- 0858 Oct, [facility] [place] [facility] [address] [id number] [place] [address]- 2877 31 Oct, 2013 [facility] [place] [facility] [address] [id number] [place] [address]- 1793 Oct, [facility] [place] [facility] [address] [id number] [place] [address]- 1986 Oct, [facility] [place] [facility] [address] [id number] [place] [address]- 6243 Oct, [facility] [place] [facility] [address] [id number] [place] [address]- 2217 Oct, [facility] [place] [facility] [address] [id number] [place] [address]- 7287 Oct, [facility] [place] [facility] [address] [id number] [place] [address]- 8639 Oct, [facility] [place] [facility] [address] [id number] [place] [address]- 8848 Oct, [facility] [place] [facility] [address] [id number] [place] [address]- 1930 Oct, [facility] [place] [facility] [address] [id number] [place] [address]- 3027 04 Oct, 2013 [facility] [place] [facility] [address] [id number] [place] [address]- 8432 Oct, [facility] [place] [facility] [address] [id number] [place] [address]- 6057 Oct, [facility] [place] [facility] [address] [facility] [id number] [place] [address]- 0654 24 Sep, 2013 [facility] [place] [facility] [address] [id number] [place] [address]- 0906 24 Sep, 2013 [facility] [place] [facility] [address] [id number] [place] [address]- 0536 20 Sep, 2013 [facility] [place] [facility] [address] [facility] [id number] [place] [address]- 5690 20 Sep, 2013 [facility] [place] [facility] [address] [id number] [place] [address]- 1944 20 Sep, 2013 [facility] [place] [facility] [address] [facility] [id number] [place] [address]- 3593 20 Sep, 2013 [facility] [place] [facility] [address] [facility] [id number] [place] [address]- 9075 18 Sep, 2013 [facility] [place] [facility] [id number] [place] [address]- 1644 18 Sep, 2013 [facility] [place] [facility] [address] [facility] [id number] [place] [address]- 4942 14 Sep, 2013 [facility] [place] [facility] [address] [facility] [id number] [place] [address]- 4263 14 Sep, 2013 [facility] [place] [facility] [address] [id number] [place] [address]- 9648 14 Sep, 2013 [facility] [place] [facility] [address] [facility] [id number], [place] [address]- 8530 14 Sep, 2013 [facility] [place] [facility] [address] [facility] [id number] [place] [address]- 8596 14 Sep, 2013 [facility] [place] [facility] [address] [facility] [id number] [place] [address]- 7461 14 Sep, 2013 [facility] [place] [facility] [address] [facility] [id number] [place] [address]- 0156 13 Sep, 2013 [facility] [place] [facility] [address] [facility] [id number], [place] [address]- 8208 Sep, [facility] [address] [id number] [place] [address]- 1558 Sep, [facility] [place] [facility] [address] [id number] [place] 9956 Sep, [facility] [place] [facility] [address] [id number] [place] [address]- 1176 Sep, [facility] [place] [facility] [address] [id number] [place] [address]- 1529 Sep, [facility] [place] [facility] [address] [id number] [place] [address]- 4182 Aug, [facility] [place] [facility] [address] [id number] [place] [address]- 8588 Aug, [facility] [address] [id number] [place] [address]- 2250 Aug, [facility] [address] [id number] [place] [address]- 2874 Aug, [facility] [place] [facility] [address] [id number] [place] [address]- 5222 Aug, [facility] [address] [facility] [id number] [place] [address]- 9031 Jul, [facility] [place] [facility] [address] [id number] [place] [address]- 3409 Jul, [facility] [place] [facility] [address] [id number] [place] [address]- 4818 Jul, [facility] [place] [facility] [address] [id number] [place] [address]- 4986 Jul, [facility] [place] [facility] [address] [id number] [place] [address]- 5614 Jul, [facility] [place] [facility] [address] [id number] [place] [address]- 0218 Jul, [facility] [place] [facility] [address] [id number] [place] [address]- 4683 Jul, [facility] [place] [facility] [address] [id number] [place] 0028 Jul, [facility] [place] [facility] [address] [id number] [place] [address]- 3417 Jul, [facility] [place] [facility] [address] [id number] [place] [address]- 3493 Jun, [facility] [place] [facility] [address] [id number] [place] [address]- 5885 Jun, [facility] [place] [facility] [address] [id number] [place] [address]- 4470 Jun, [facility] [place] [facility] [address] [id number] [place] [address]- 9062 Jun, [facility] [place] [facility] [address] [id number] [place] [address]- 0466 Jun, [facility] [place] [facility] [address] [id number] [place] [address]- 9362 Jun, [facility] [place] [facility] [address] [id number] [place] [address]- 9092 Jun, [facility] [place] [facility] [address] [id number] [place] [address]- 8385 Jun, [facility] [place] [facility] [address] [id number], [place] [address]- 3388 Jun, [facility] [place] [facility] [address] [id number] [place] [address]- 8998 Jun, [facility] [place] [facility] [address] [id number] [place] [address]- 5389 May, [facility] [place] [facility] [address] [id number] [place] [address]- 2879 May, [facility] [place] [facility] [address] [id number], [place] [address]- 8138 May, [facility] [place] [facility] [address] [id number] [place] [address]- 2660 May, [facility] [place] [facility] [address] [id number] [place] [address]- 5189 May, [facility] [place] [facility] [address] [id number] [place] [address]- 8311 May, [facility] [place] [facility] [address] [id number] [place] [address]- 4581 May, [facility] [place] [facility] [address] [id number] [place] [address]- 2080 May, [facility] [place] [facility] [address] [id number] [place] [address]- 8856 May, [facility] [place] [facility] [address] [id number] [place] [address]- 9040 Apr, [facility] [place] [facility] [address] [id number] [place] [address]- 4436 16 Apr, 2013 [facility] [place] [facility] [address] [id number] [place] [address]- 0458 Apr, [facility] [place] [facility] [address] [id number] [place] [address]- 6068 Apr, [facility] [place] [facility] [address] [id number] [place] [address]- 8249 Mar, [facility] [place] [facility] [address] [id number] [place] [address]- 0689 Mar, [facility] [place] [facility] [address] [id number] [place] [address]- 0792 Mar, [facility] [place] [facility] [address] [id number] [place] [address]- 9834 Mar, [facility] [place] [facility] [address] [id number] [place] [address]- 1047 Mar, [facility] [place] [facility] [address] [id number] [place] [address]- 8648 Mar, [facility] [address] [id number] [place] [address]- 7352 Mar, [facility] [address] [id number] [place] [address]- 8291 Feb, [facility] [address] [id number] [place] [address]- 0147 Feb, [facility] [address] [id number] [place] [address]- 6360 Feb, [facility] [address] [id number] [place] [address]- 3021 Feb, [facility] [address] [id number] [place] [address]- 4177 Feb, [facility] [address] [id number] [place] [address] Feb, [facility] [address] [id number] [place] [address] Feb, [facility] [address] [id number] [place] [address] Feb, [facility] [address] [id number] [place] [address] Feb, [facility] [address] [id number] [place] [address] Feb, [facility] [address] [id number] [place] [address] Feb, [facility] [place] [facility] [address] [id number] [place] [address] Jan, [facility] [place] [facility] [address] [id number] [place] [address] Jan, [facility] [address] [id number] [place] [address] December, [facility] [address] [id number] [place] [address] December, [facility] [address] [id number] [place] [address] Nov, [facility] [address] [id number] [place] [address] Nov, [facility] [address] [id number] [place] [address] Oct, [facility] [address] [id number] [place] [address] Oct, [facility] [address] [id number] [place] [address] Oct, [facility] [address] [id number] [place] [address] Oct, [facility] [address] [id number] [place] [address] Sep, [facility] [address] [id number] [place] [address] Sep, [facility] [address] [id number] [place] [address] Sep, [facility] [address] [id number] [place] [address] Sep, [facility] [place] [facility] [address] [id number], [place] [address] Aug, [facility] [place] [facility] [address] [id number] [place] [address] Aug, [facility] [place] [facility] [address] [id number] [place] [address] Jul, [facility] [place] [facility] [address] [id number] [place] [address] Jul, [facility] [place] [facility] [address] [id number] [place] [address] Jul, [facility] [place] [facility] [address] [id number] [place] [address] Jul, [facility] [place] [facility] [address] [id number] [place] [address] Jul, [facility] [place] [facility] [address] [id number] [place] [address] Jul, [facility] [place] [facility] [address] [id number] [place] [address] Jun, [facility] [place] [facility] [address] [id number] [place] [address] Jun, [facility] [place] [facility] [address] [id number] [place] [address] Jun, [facility] [place] [facility] [address] [id number] [place] [address] Jun, [facility] [place] [facility] [address] [id number] [place] [address] Jun, [facility] [place] [facility] [address] [id number] [place] [address] May, [facility] [place] [facility] [address] [facility] [id number] [place] [address]- [address] May, [facility] [place] [facility] [address] [id number] [place] [address] May, [facility] [place] [facility] [address] [id number] [place] [address] May, [facility] [place] [facility] [address] [id number] [place] [address] May, [facility] [place] [facility] [address] [facility] [id number] [place] [address]- [address] May, [facility] [place] [facility] [address] [id number] [place] [address] May, [facility] [place] [facility] [address] [id number] [place] [address] May, [facility] [place] [facility] [address] [id number] [place] [address]- [address] Mar, [facility] [place] [facility] [address] [id number] [place] [address] Mar, [facility] [place] [facility] [address] [id number] [place] [address] Mar, [facility] [place] [facility] [address] [id number] [place] [place] [address] Feb, [facility] [place] [facility] [address] [id number] [place] [address] Feb, [facility] [place] [facility] [address] [id number] [place] [address] Feb, [facility] [place] [facility] [address] [id number] [place] [address] Feb, [facility] [place] [facility] [address] [id number] [place] [address] Jan, [facility] [place] [facility] [address] [id number] [place] [address] Jan, [facility] [place] [facility] [address] [id number] [place] [address] Jan, [facility] [place] [facility] [address] [id number] [place] [address] December, [facility] [place] [facility] [address] [id number] [place] [address] Nov, [facility] [place] [facility] [address] [id number] [place] [address] Oct, [facility] [place] [facility] [address] [id number] [place] [address] Oct, [facility] [place] [facility] [address] [id number] [place] [address] Oct, [facility] [address] [id number] [place] [address] Oct, [facility] [place] [facility] [address] [id number] [place] [address] Aug, [facility] [place] [facility] [address] [id number] [place] [address] Aug, [facility] [place] [facility] [address] [id number] [place] [address] Aug, [facility] [place] [facility] [address] [id number] [place] [address] Aug, [facility] [place] [facility] [address] [id number] [place] [address] Aug, [facility] [place] [facility] [address] [id number] [place] [address] Aug, [facility] [place] [facility] [address] [id number] [place] [address] Aug, [facility] [place] [facility] [address] [id number] [place] [address] Aug, [facility] [place] [facility] [address] [id number] [place] [address] Jul, [facility] [place] [facility] [address] [id number] [place] [address] Jun, [facility] [place] [facility] [address] [id number] [place] [address] Jun, [facility] [place] [facility] [address] [id number] [place] [address] Jul, [facility] [place] [facility] [address] [id number] [place] [address] Jul, [facility] [place] [facility] [address] [id number] [place] [address] Jul, [facility] [place] [facility] [address] [id number] [place] [address] 14 Jul, 2010 [facility] [address] [id number] [place] [address] 14 Jul, 2010 [facility] [address] [id number] [place] [address] 24 Jun, 2010 [facility] [address] [id number] [place] [address] 21 May, 2010 [facility] [address] [id number] [place] [address] Mar, [facility] [address] [id number] [place] [address] Oct, [facility] [address] [id number] [place] [address] Aug, [facility] [address] [id number] [place] [address] 15 Jul, 2009 [facility] [address] [id number] [place] [address] Jul, [facility] [address] [id number] [place] [address] Jun, [facility] [address] [facility] [id number] [place] [address] Jun, [facility] [address] [id number] [place] [address] May, [facility] [address] [id number] [place] [address] May, [facility] [address] [id number] [place] [address] Mar, [facility] [address] [id number] [place] [address] 14 Mar, 2009 [facility] [address] [id number] [place] [address] Oct, IMMUNIZATIONS No Known Immunizations SOCIAL HISTORY Never Assessed REASON FOR VISIT Establish Care, needs refills, possible UTI, possible yeast infection, lower abdominal pain after urination, may need blood panel done--Meaghan Nobles MA PLAN OF CARE VITAL SIGNS Height 68 in 2017-07-07 Weight 196.0 lbs 2017-07-07 Temperature 97.9 degrees Fahrenheit 2017-07-07 Heart Rate 76 bpm 2017-07-07 Respiratory Rate 20 2017-07-07 BMI 29.80 kg/m2 2017-07-07 Blood pressure systolic 100 mmHg 2017-07-07 Blood pressure diastolic 78 mmHg 2017-07-07 MEDICATIONS Medication Instructions Dosage Frequency Start Date End Date Duration Status Bactrim DS 800-160 MG Orally Twice a day 1 tablet 12h Jul,Jul 10 day(s) Active Diflucan 150 MG Orally Once a day 1 tablet 24h Jul, Jul, 03 days Active Trazodone HCl 100 MG Orally Once a day 1 tablet at bedtime 24h Feb, Active Xanax 1 mg 1 tablet by Oral route 3 times per day PRN Oct, Active Naproxen 500 MG Orally 2 times a day 1 tablet as needed 12h Active cyclobenzaprine 10 mg 1 tablet every 6 hours PRN 8h Oct, Active Prozac 10 MG Orally daily 1 capsule every day for one week then take 2 capsules every day 24h Jun, 30 day(s) Active RESULTS Name Result Date Reference Range UA LONG DIP (IN HOUSE) 2017-07-07 Lot # [id number] Exp date 02/21 Clarity slightly cloudy Color yellow Odor none GLU negative EMBER negative KET negative SG 1.020 BLO trace-lysed pH 5.5 Protein negative URO 0.2 NIT negative HEIKE negative Lot # [id number] Exp date 02/21 PROCEDURES Procedure Date Ordered Result Body Site URINALYSIS, AUTO, W/O SCOPE Jul 07, 2017 INSTRUCTIONS MEDICATIONS ADMINISTERED No Known Medications [...]
--- OUTSIDE RECORDS SUMMARY | 2018-04-23 11:45 | XMS REPORT ---
Author Author BRANDON CHRISTIANSON [facility] Address [address] [place] [address] Phone Unavailable Care Team Providers Care Finish Repairer Name Role Phone MEGHANBRANDON Unavailable Unavailable PROBLEMS Type Condition ICD9-CM Code VGL98-DF Code Onset Dates Condition Status SNOMED Code Problem Generalized anxiety disorder F41.1 Active 68234105 Problem Cannabis abuse F12.10 Active 24269450 Problem Major depressive disorder, recurrent episode, moderate F33.1 Active 387272689 Problem Tobacco use Z72.0 Active 260073860 Problem Diarrhea 787.91 Active 78562662 Problem PTSD (post-traumatic stress disorder) F43.10 Active 60140122 Problem Opioid use disorder, moderate, in sustained remission F11.21 Active 23095343 Problem Alcohol use disorder, mild, 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 Active 88677979 Problem Cocaine use disorder, moderate, in sustained remission F14.21 Active 59430684 Problem Methamphetamine use disorder, severe, 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 Active 53820619 Problem Thoracic or lumbosacral neuritis or radiculitis, unspecified 724.4 Active 287933914 Problem Hematuria, unspecified 599.70 Active 59030407 Problem Spasm of muscle 728.85 Active 19116941 Problem Lumbago 724.2 Active 507944933 Problem Insomnia 780.52 Active 619082469 Problem Hyperlipidemia 272.4 Active 74208505 Problem Major depressive disorder, recurrent episode, severe, without mention of psychotic behavior 296.33 Active 42170122 Problem Prediabetes 790.29 Active 5190650 Problem Adjustment disorder with depressed mood 309.0 Active 42794026 Problem Mixed hyperlipidemia E78.2 Active 720425072 ALLERGIES Substance Reaction Event Type Date Status Duragesic-100 vomiting- Patches only Drug Allergy Feb, Active ENCOUNTERS Encounter Location Date Diagnosis [facility] [address] [facility] [id number] [id number] December, [facility] [address] [id number] [address] Nov, [facility] [id number] [place] [address] 38749- 2573 Nov, Wellness examination Z00.00 ; Encounter for immunization Z23 ; Screening for osteoporosis Z13.820 ; Screening for breast cancer Z12.31 and Left breast lump N63.20 [facility] [id number] [place] [address] [id number] Oct, Dental examination Z01.20 [facility] [id number] [place] [address] 83245- 9509 Oct, [place] [id number] [place] [address] 85650- 1430 Oct, [place] [id number] [place] [address] 40153- 9643 16 Sep, 2017 [place] [id number] [place] [address] 29224- 4497 15 Sep, 2017 [facility] [id number] [place] [address] 38663- 0059 14 Sep, 2017 Left otitis media with effusion H65.92 ; Acute suppurative otitis media of right ear without spontaneous rupture of tympanic membrane, recurrence not specified H66.001 ; Dizziness R42 and Fatigue 780.79 [place] [id number] [place] [address] 30855- 9193 Aug, Major depressive disorder, recurrent episode, moderate [...] Z72.0 [facility] [id number] [place] [address] 37414 -0609 Aug, Ingrown right big toenail L60.0 [facility] [address] [address] 8876 Aug, [facility] [id number] [place] [address] 13472- 2256 Aug, PTSD (post-traumatic stress disorder) F43.10 [facility] [id number] [place] [address] 71752 2546 Aug, Major depressive disorder, recurrent episode, moderate F33.1 ; Generalized anxiety disorder F41.1 and Cannabis abuse F12.10 [facility] [id number] [place] [address] 22547- 8896 Jul, [place] [id number] [place] [address] 18242- 6116 Jul, [place] [id number] [place] [address] 85851- 8116 Jul, [facility] [id number] [place] [address] 80174- 5959 Jul, Major depressive disorder, recurrent episode, moderate F33.1 ; Generalized anxiety disorder F41.1 and Cannabis abuse F12.10 [facility] [address] [address] 2766 Jul, [facility] [address] [address] 1846 Jul, [facility] [id number] [place] [address] 28789 2546 Jul, Hyperlipidemia 272.4 [facility] [id number] [place] [address] 24291- 9006 Jul, PTSD (post-traumatic stress disorder) F43.10 [facility] [address] [address] 3566 14 Jul, 2017 Tobacco use Z72.0 ; [...] anxiety disorder F41.1 and Cannabis abuse F12.10 [place] [id number] [place] [address] 91418- 5436 Jul, [place] [address] 008613- 3861 Jul, Dysuria R30.0 and Mixed hyperlipidemia E78.[address] 07495- 6135 Jun, Major depressive disorder, recurrent episode, moderate F33.1 ; Generalized anxiety disorder F41.1 and Cannabis abuse F12.10 [place] [id number] [place] [address] 31036- 1130 Jun, [place] [id number] [place] [address] 60038- 6048 Jun, Generalized anxiety disorder F41.1 ; Major depressive disorder, recurrent episode, moderate F33.1 ; PTSD (post-traumatic stress disorder) F43.10 ; Opioid use disorder, moderate, in sustained remission F11.21 ; Cannabis abuse F12.10 ; Alcohol use disorder, mild, 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 ; Methamphetamine use disorder, severe, 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 ; Cocaine use disorder, moderate, in sustained remission F14.21 and Tobacco use Z72.0 [place] [id number] [place] [address] 71181- 6567 Jun, Major depressive disorder, recurrent episode, moderate F33.1 ; Generalized anxiety disorder F41.1 and Cannabis abuse F12.10 [place] [id number] [place] [address] 88763- 1674 Jun, [place] [id number] [place] [address] 44473- 8674 Jun, [address] [place] [address] 76483- 4349 Jun, Major depressive disorder, recurrent episode, moderate F33.1 ; Generalized anxiety disorder F41.1 and Cannabis abuse F12.10 [facility] [address] [place] [address] [id number] Mar, Dental examination Z01.20 [facility] [id number] [place] [address] [id number] Feb, Dental examination Z01.20 [facility] [id number] [place] [address] 69049- 0681 Mar, [facility] [address] 30683- 2687 Mar, [facility] [id number] [place] [address] 99896- 9309 Feb, Hyperlipidemia 272.4 and Prediabetes 790.29 [facility] [id number] [place] [address] 67747- 0817 Feb, Fatigue 780.79 and Hyperlipidemia 272.4 [facility] [id number] [place] [address] 13863- 0088 Feb, Lumbago 724.2 ; Hyperlipidemia 272.4 ; Insomnia 780.52 and Fatigue 780.79 [facility] [id number] [place] [address] 21258- 2889 Nov, [facility] [id number] [place] [address] 00394- 7877 Nov, [facility] [id number] [place] [address] 75068- 6488 Mar, [facility] [id number] [place] [address] 30654- 6644 Mar, [facility] [id number] [place] [address] 81116- 4545 Jan, [facility] [address] [place] [address]- 2809 Jan, [facility] [place] [facility] [address] [id number] [place] [address]- 3673 December, [facility] [place] [facility] [address] [id number] [place] [address]- 5306 December, [facility] [place] [facility] [address] [id number] [place] 4612 Nov, [facility] [place] [facility] [address] [id number] [place] [address]- 9418 Nov, [facility] [place] [facility] [address] [id number] [place] [address]- 6276 Nov, [facility] [place] [facility] [address] [id number] [place] [address]- 2433 Nov, [facility] [place] [facility] [address] [id number] [place] [address]- 6431 Nov, [facility] [place] [facility] [address] [id number] [place] [address]- 6998 Nov, [facility] [place] [facility] [address] [id number] [place] [address]- 5955 Oct, [facility] [place] [facility] [address] [id number] [place] [address]- 3200 31 Oct, 2013 [facility] [place] [facility] [address] [id number] [place] [address]- 3441 Oct, [facility] [place] [facility] [address] [id number] [place] [address]- 3053 Oct, [facility] [place] [facility] [address] [id number] [place] [address]- 5315 Oct, [facility] [place] [facility] [address] [id number] [place] [address]- 1752 Oct, [facility] [place] [facility] [address] [id number] [place] 4837 Oct, [facility] [place] [facility] [address] [id number] [place] [address]- 8193 Oct, [facility] [place] [facility] [address] [id number] [place] [address]- 4925 Oct, [facility] [place] [facility] [address] [id number] [place] [address]- 1159 Oct, [facility] [place] [facility] [address] [id number] [place] [address]- 5128 Oct, [facility] [place] [facility] [address] [id number] [place] [address]- 1264 Oct, [facility] [place] [facility] [address] [id number] [place] [address]- 4927 Oct, [facility] [place] [facility] [address] [id number] [place] [address]- 6620 24 Sep, 2013 [facility] [place] [facility] [address] [id number] [place] [address]- 3996 24 Sep, 2013 [facility] [place] [facility] [address] [id number] [place] [address]- 7169 Sep, [facility] [place] [facility] [address] [id number] [place] [address]- 3886 Sep, [facility] [place] [facility] [address] [id number] [place] [address]- 9055 Sep, [facility] [place] [facility] [address] [id number] [place] [address]- 9271 Sep, [facility] [place] [facility] [address] [id number] [place] [address]- 1940 18 Sep, 2013 [facility] [place] [facility] [address] [id number] [place] [address]- 6781 18 Sep, 2013 [facility] [place] [facility] [address] [id number] [place] [address]- 2058 14 Sep, 2013 [facility] [place] [facility] [address] [id number] [place] [address]- 1046 14 Sep, 2013 [facility] [place] [facility] [address] [id number] [place] [address]- 2974 14 Sep, 2013 [facility] [place] [facility] [address] [id number] [place] [address]- 5776 14 Sep, 2013 [facility] [place] [facility] [address] [id number] [place] [address]- 5948 14 Sep, 2013 [facility] [place] [facility] [address] [id number] [place] [address]- 9504 14 Sep, 2013 [facility] [place] [facility] [address] [id number] [place] [address]- 4721 13 Sep, 2013 [facility] [place] [facility] [address] [id number] [place] [address]- 7141 13 Sep, 2013 [facility] [place] [facility] [address] [id number] [place] [address]- 6957 12 Sep, 2013 [facility] [place] [facility] [address] [id number] [place] [address]- 1343 12 Sep, 2013 [facility] [place] [facility] [address] [id number] [place] [address]- 7836 03 Sep, 2013 [facility] [place] [facility] [address] [id number] [place] [address]- 4811 Sep, [facility] [place] [facility] [address] [id number] [place] [address]- 9356 Aug, [facility] [place] [facility] [address] [id number] [place] [address]- 9691 Aug, [facility] [place] [facility] [address] [id number] [place] [address]- 6333 Aug, [facility] [place] [facility] [address] [id number] [place] [address]- 9480 Aug, [facility] [place] [facility] [address] [id number] [address]- 9665 Aug, [facility] [address] [id number] [place] [address]- 3957 Jul, [facility] [place] [facility] [address] [id number] [place] 8823 Jul, [facility] [place] [facility] [address] [id number] [place] [address]- 9210 Jul, [facility] [place] [facility] [address] [id number] [place] [address]- 6580 Jul, [facility] [place] [facility] [address] [id number] [place] [address]- 3146 Jul, [facility] [place] [facility] [address] [id number] [place] [address]- 1137 Jul, [facility] [address] [id number] [place] [address]- 4149 Jul, [facility] [place] [facility] [address] [id number] [place] [address]- 3749 Jul, [facility] [place] [facility] [address] [id number] [place] [address]- 3699 Jul, [facility] [place] [facility] [address] [id number] [place] [address]- 1450 Jun, [facility] [place] [facility] [address] [id number] [address]- 3035 Jun, [facility] [place] [facility] [address] [id number] [place] [address]- 9874 Jun, [facility] [place] [facility] [address] [id number] [address]- 3060 Jun, [facility] [place] [facility] [address] [id number] [address]- 1783 Jun, [facility] [place] [facility] [address] [id number] [place] [address]- 6939 Jun, [facility] [place] [facility] [address] [id number] [place] [address]- 8042 18 Jun, 2013 [facility] [place] [facility] [address] [id number] [place] [address]- 4705 Jun, [facility] [place] [facility] [address] [id number] [place] [address]- 4724 Jun, [facility] [place] [facility] [address] [id number] [place] [address]- 8481 Jun, [facility] [place] [facility] [address] [id number] [place] [address]- 9972 May, [facility] [place] [facility] [address] [id number] [place] 1955 May, [facility] [place] [facility] [address] [id number] [place] [address]- 8253 May, [facility] [place] [facility] [address] [id number] [place] [address]- 9747 May, [facility] [place] [facility] [address] [id number] [place] [address]- 2965 16 May, 2013 [facility] [place] [facility] [address] [id number] [place] [address]- 2280 May, [facility] [place] [facility] [address] [id number] [place] [address]- 8019 May, [facility] [place] [facility] [address] [id number] [place] [address]- 0971 May, [facility] [place] [facility] [address] [id number] [place] [address]- 7825 May, [facility] [place] [facility] [address] [id number] [place] [address]- 5721 26 Apr, 2013 [facility] [place] [facility] [address] [id number] [place] [address]- 7326 16 Apr, 2013 [facility] [place] [facility] [address] [id number] [place] [address]- 4660 Apr, [facility] [place] [facility] [address] [id number] [place] [address]- 7772 Apr, [facility] [place] [facility] [address] [id number] [place] [address]- 2512 Mar, [facility] [place] [facility] [address] [id number] [place] [address]- 8300 Mar, [facility] [place] [facility] [address] [id number] [place] [address]- 9407 Mar, [facility] [place] [facility] [address] [id number] [place] [address]- 8567 Mar, [facility] [place] [facility] [address] [id number] [place] [address]- 5659 Mar, [facility] [place] [facility] [address] [id number] [place] [address]- 4659 Mar, [facility] [place] [facility] [address] [id number] [place] [address]- 4587 Mar, [facility] [place] [facility] [address] [id number] [place] [address]- 5208 Feb, [facility] [place] [facility] [address] [id number] [place] [address]- 8203 Feb, [facility] [place] [facility] [address] [id number] [place] [address]- 8666 Feb, [facility] [place] [facility] [address] [id number] [place] [address]- 5215 Feb, [facility] [place] [facility] [address] [id number] [place] [address]- 3804 Feb, [facility] [place] [facility] [address] [id number] [place] [address]- 6464 Feb, [facility] [place] [facility] [address] [id number] [place] [address]- 7414 Feb, [facility] [place] [facility] [address] [id number] [place] [address]- 0803 Feb, [facility] [address] [id number] [place] [address]- 9256 Feb, [facility] [address] [id number] [place] [address]- 3349 Feb, [facility] [address] [id number] [place] [address]- 5068 Feb, [facility] [address] [id number] [place] [address]- 9490 Jan, [facility] [address] [id number] [place] [address]- 4310 Jan, [facility] [address] [id number] [place] [address]- 0539 December, [facility] [address] [id number] [place] [address]- 1128 December, [facility] [address] [id number] [place] [address]- 1669 Nov, [facility] [address] [id number] [place] [address]- 8196 Nov, [facility] [address] [id number] [place] [address]- 6732 Oct, [facility] [address] [id number] [place] [address]- 1495 Oct, [facility] [place] [facility] [address] [id number] [place] [address]- 2367 Oct, [facility] [place] [facility] [address] [id number] [place] [address]- 7108 Oct, [facility] [place] [facility] [address] [id number] [place] [address]- 8420 Sep, [facility] [place] [facility] [address] [id number] [place] 1611 Sep, [facility] [address] [id number] [place] [address]- 6887 Sep, [facility] [address] [id number] [place] [address]- 9396 Sep, [facility] [address] [id number] [place] [address]- 1611 Aug, [facility] [address] [id number] [place] [address]- 2267 Aug, [facility] [address] [id number] [place] [address]- 1105 Jul, [facility] [address] [id number] [place] [address]- 0696 Jul, [facility] [address] [id number] [place] [address]- 1834 Jul, [facility] [address] [id number] [place] [address]- 3594 Jul, [facility] [address] [id number] [place] [address]- 1781 Jul, [facility] [address] [id number] [place] [address]- 0961 Jul, [facility] [address] [id number] [place] [address]- 4369 Jun, [facility] [place] [facility] [address] [id number] [place] [address]- 1077 Jun, [facility] [place] [facility] [address] [id number] [place] [address]- 8745 Jun, [facility] [place] [facility] [address] [id number] [place] [address]- 0056 Jun, [facility] [place] [facility] [address] [id number] [place] [address]- 3586 Jun, [facility] [place] [facility] [address] [id number] [place] [address]- 7195 May, [facility] [place] [facility] [address] [id number] [place] [address]- 4829 May, [facility] [place] [facility] [address] [id number] [place] [address] May, [facility] [place] [facility] [address] [id number] [place] [address] May, [facility] [place] [facility] [address] [id number] [place] [address] May, [facility] [place] [facility] [address] [id number] [place] [address] May, [facility] [place] [facility] [address] [id number] [place] [address] May, [facility] [place] [facility] [address] [id number] [place] [address] May, [facility] [place] [facility] [address] [id number] [place] [address] Mar, [facility] [place] [facility] [address] [id number] [place] [address] Mar, [facility] [place] [facility] [address] [id number] [place] [address] Mar, [facility] [place] [facility] [address] [id number] [place] [address] Feb, [facility] [place] [facility] [address] [id number] [place] [address] Feb, [facility] [place] [facility] [address] [id number] [place] [address] Feb, [facility] [place] [facility] [address] [id number] [place] [address] Feb, [facility] [place] [facility] [address] [id number] [place] [address] Jan, [facility] [place] [facility] [address] [id number] [place] [address] Jan, [facility] [address] [id number] [place] [address] Jan, [facility] [address] [id number] [place] [address] December, [facility] [address] [id number] [place] [address] Nov, [facility] [address] [id number] [place] [address] Oct, [facility] [address] [id number] [place] [address] Oct, [facility] [address] [id number] [place] [address] Oct, [facility] [address] [id number] [place] [address] Oct, [facility] [address] [id number] [place] [address] Aug, [facility] [address] [id number] [place] [address] Aug, [facility] [address] [id number] [place] [address] Aug, [facility] [address] [id number] [place] [address] Aug, [facility] [address] [id number] [place] [address] Aug, [facility] [place] [facility] [address] [id number] [place] [address] Aug, [facility] [address] [id number] [place] [address] Aug, [facility] [address] [id number] [place] [address] Aug, [facility] [address] [id number] [place] [address] 08 Jul, 2011 [facility] [place] [facility] [address] [id number] [place] [address] Jun, [facility] [place] [facility] [address] [id number] [place] [address] 29 Jun, 2011 [facility] [place] [facility] [address] [id number] [place] [address] 31 Jul, 2010 [facility] [place] [facility] [address] [id number] [place] [address] Jul, [facility] [place] [facility] [address] [id number] [place] [address] Jul, [facility] [place] [facility] [address] [id number] [place] [address] 14 Jul, 2010 [facility] [place] [facility] [address] [id number] [place] [address] 14 Jul, 2010 [facility] [place] [facility] [address] [id number] [place] [address] Jun, [facility] [place] [facility] [address] [id number] [place] [address] May, [facility] [place] [facility] [address] [id number] [place] [address] Mar, [facility] [place] [facility] [address] [id number] [place] [address] Oct, [facility] [place] [facility] [address] [id number] [place] [address] Aug, [facility] [place] [facility] [address] [id number] [place] [address] 15 Jul, 2009 [facility] [place] [facility] [address] [id number] [place] [address] Jul, [facility] [place] [facility] [address] [id number] [address] Jun, [facility] [address] [id number] [address] Jun, [facility] [address] [id number] [address] May, [facility] [address] [id number] [address] May, [facility] [id number] [address] Mar, [facility] [id number] [address] Mar, [facility] [address] [id number] [address] Oct, IMMUNIZATIONS No Known Immunizations SOCIAL HISTORY Never Assessed REASON FOR VISIT PROPHY PLAN OF CARE Activity Details Follow Up constance Reason:jesse VITAL SIGNS Blood pressure systolic 115 mmHg 2017-03-06 Blood pressure diastolic 75 mmHg 2017-03-06 MEDICATIONS Medication Instructions Dosage Frequency Start Date End Date Duration Status Naproxen 500 MG Orally 2 times a day 1 tablet as needed 12h Active Xanax 1 mg 1 tablet by Oral route 3 times per day PRN Oct, Active Trazodone HCl 100 MG Orally Once a day 1 tablet at bedtime 24h Feb, 30 day(s) Active RESULTS No Results PROCEDURES Procedure Date Ordered Result Body Site INTRAORL-PERIAPICAL 1 FILM [id number] March 06, 2017 INTRAORL-PERIAPICAL EA ADD FILM March 06, 2017 TOPICAL FLUORIDE VARNISH March 06, 2017 PROPHYLAXIS - ADULT March 06, 2017 INTRAORL-PERIAPICAL EA ADD FILM March 06, 2017 INTRAORL-PERIAPICAL EA ADD FILM March 06, 2017 PANORAMIC FILM SEE ALSO CODE [id number] March 06, 2017 BITEWINGS - FOUR FILMS March 06, 2017 INSTRUCTIONS MEDICATIONS ADMINISTERED No Known [...] disc replacement L1- L5 - Dr Muhammad ([place]) Surgical History appendectomy 1983 Surgical History hysterectomy 1993 Surgical History dilatation and curettage Surgical History heart cath- Dr Shaw [address] Meza bowel and intestines seperated 2016 Hospitalization History Hospitalization for surgery only
--- OUTSIDE RECORDS SUMMARY | 2018-04-23 11:46 | XMS REPORT ---
Author Author WILD RODRIGUEZ [facility] Address [address] [place] [address] Care Team Providers Care Hvac Journeyman Name Role Phone WILD RODRIGUEZ Unavailable PROBLEMS Type Condition ICD9-CM Code [id number] Code Onset Dates Condition Status SNOMED Code Problem Major depressive disorder, recurrent episode, moderate F33.1 Active 847683582 Problem PTSD (post-traumatic stress disorder) F43.10 Active 21809406 Problem Cannabis abuse F12.10 Active 71106816 Problem GERD with esophagitis K21.0 Active 063417743 Problem Spasm of muscle 728.85 Active 72707771 Problem Cocaine use disorder, moderate, in sustained remission F14.21 Active 61702444 Problem Diarrhea 787.91 Active 66770811 Problem Alcohol use disorder, mild, 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 Active 04711824 Problem Tobacco use Z72.0 Active 711749751 Problem Methamphetamine use disorder, severe, 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2 Active 174136248 Problem Insomnia 780.52 Active 607165746 Problem Generalized anxiety disorder F41.1 Active 86127101 ALLERGIES No Information ENCOUNTERS Encounter Location Date Diagnosis [facility] [address] [facility] [id number] [address] Feb, [facility] [id number] [place] [address]- 3240 Jan, Cocaine use disorder, moderate, in sustained [...] Major depressive disorder, recurrent episode, moderate F33.1 [place] [id number] [place] [address]- 5454 Jan, Dysuria R30.0 and GERD with esophagitis K21.0 [address] [id number] [place] [address]- 8455 December, Major depressive disorder, recurrent episode, moderate F33.1 [place] [id number] [place] [address] 02808- 8953 December, [place] [id number] [place] [address]- 1980 December, Major depressive disorder, recurrent episode, moderate [...] sustained remission F10.11 and Tobacco use Z72.0 [place] [id number] [place] [address]- 8378 Nov, [facility] [address] [place], [place] [id number] [place] [address] Nov, [place] [id number] [place] [address] 48[address]- 8940 Nov, Wellness examination Z00.00 ; Encounter for immunization Z23 ; Screening for osteoporosis Z13.820 ; Screening for breast cancer Z12.31 and Left breast lump N63.20 [facility] [address] [id number] [address] Oct, Dental examination Z01.20 [facility] [address], [place] [address] Oct, [facility] [address], [place] [address] Oct, [facility] [address], [place] [address] 7[address] Sep, [facility] [address] [place] [address]- 77[address] Sep, [facility] [address] [place] [address] 35[address]- 3444 14 Sep, 2017 Left otitis media with effusion H65.92 ; Acute suppurative otitis media of right ear without spontaneous rupture of tympanic membrane, recurrence not specified H66.001 ; Dizziness R42 and Fatigue 780.79 [facility] [address], [place] [address] Aug, Major depressive disorder, recurrent episode, moderate [...] sustained remission F10.11 and Tobacco use Z72.0 [facility] [address] [id number], [place] [address] Aug, Ingrown right big toenail L60.0 [facility] [address], [place] [address] Aug, [facility] [address], [place] [address] Aug, PTSD (post-traumatic stress disorder) F43.10 [facility] [address], [place] [address] Aug, Major depressive disorder, recurrent episode, moderate F33.1 ; Generalized anxiety disorder F41.1 and Cannabis abuse F12.10 [facility] [address], [place] [address] 8[address] Jul, [facility] [id number] [place] [address] 07[address]- 5136 Jul, [facility] [address], [place] [address] 10[address] Jul, [facility] [id number] [place] [address] 49[address]- 3116 Jul, Major depressive disorder, recurrent episode, moderate F33.1 ; Generalized anxiety disorder F41.1 and Cannabis abuse F12.10 [facility] [address], [place] [address] 4[address] Jul, [facility] [address] [place] [address] 67[address]- 2506 Jul, [facility] [address] [place] [address] 89348- 8916 Jul, Hyperlipidemia 272.4 [facility] [address], [place] [address] 4066 Jul, PTSD (post-traumatic stress disorder) F43.10 [facility] [address], [place] [address] 9[address] 14 Jul, 2017 Tobacco use Z72.0 ; [...] and Cannabis abuse F12.10 [facility] [address], [place] [address] Jul, [facility] [id number] [place] [address] 86[address]- 7686 Jul, Dysuria R30.0 and Mixed hyperlipidemia E78.2 [facility] [address] [place] [address] 20896- 7514 Jun, Major depressive disorder, recurrent episode, moderate F33.1 ; Generalized anxiety disorder F41.1 and Cannabis abuse F12.10 [facility] [address] [place] [address] 80929- 5867 Jun, [place] [id number] [place] [address] 76396- 8263 Jun, Generalized anxiety disorder F41.1 ; Major [...] use Z72.0 [facility] [address] [place] [address] 49[address]- 1921 Jun, Major depressive disorder, recurrent episode, moderate F33.1 ; Generalized anxiety disorder F41.1 and Cannabis abuse F12.10 [facility] [address], [place] [address] 6[address] Jun, [facility] [address], [place] [address]- 9067 Jun, [facility] [address] [place] [address] 24798- 7981 Jun, Major depressive disorder, recurrent episode, moderate F33.1 ; Generalized anxiety disorder F41.1 and Cannabis abuse F12.10 [facility] [address] [place] [id number] Mar, Dental examination Z01.20 [facility] [id number] [address] Feb, Dental examination Z01.20 [facility] [address] [address] Mar, [facility] [address] [place] [address] 55925- 9605 Mar, [facility] [address] [place] [address] 11201- 1532 Feb, Hyperlipidemia 272.4 and Prediabetes 790.29 [facility] [id number] [place] [address] 58078- 2460 Feb, Fatigue 780.79 and Hyperlipidemia 272.4 [facility] [id number] [place] [address] 32327- 7560 Feb, Lumbago 724.2 ; Hyperlipidemia 272.4 ; Insomnia 780.52 and Fatigue 780.79 [facility] [address], [place] [address]- 2323 Nov, [facility] [id number] [place] [address] 65202- 0212 Nov, [facility] [address], [place] [address]- 9138 Mar, [facility] [address], [place] [address]- 9558 Mar, [facility] [address] [address] Jan, [facility] [id number] [place] [address] 32486- 3915 Jan, [facility] [address], [place] [address]- 3253 December, [facility] [id number] [place] [address] 96347- 1555 December, [facility] [place] [facility] [address] [id number] [place] [address]- 1694 Nov, [facility] [place] [facility] [address] [id number] [place] [address] Nov, [facility] [place] [facility] [address] [id number] [place] [address]- 0789 Nov, [facility] [place] [facility] [address] [id number] [place] [address]- 1355 Nov, [facility] [place] [facility] [address] [id number] [place] [address]- 4864 Nov, [facility] [place] [facility] [address] [id number] [place] [address]- 2184 Nov, [facility] [place] [facility] [address] [id number] [place] [address]- 1084 Oct, [facility] [place] [facility] [address] [id number] [place] [address]- 8771 31 Oct, 2013 [facility] [place] [facility] [address] [id number] [place] [address]- 6900 Oct, [facility] [place] [facility] [address] [id number] [place] [address]- 8585 Oct, [facility] [place] [facility] [address] [id number] [place] [address]- 8009 Oct, [facility] [place] [facility] [address] [id number] [place] [address]- 6960 19 Oct, 2013 [facility] [place] [facility] [address] [id number] [place] [address]- 9021 Oct, [facility] [place] [facility] [address] [id number] [place] [address]- 2158 Oct, [facility] [place] [facility] [address] [id number] [place] [address]- 8383 Oct, [facility] [place] [facility] [address] [id number] [place] [address]- 0283 04 Oct, 2013 [facility] [place] [facility] [address] [id number] [place] [address]- 1981 Oct, [facility] [place] [facility] [address] [id number] [place] [address]- 8488 Oct, [facility] [place] [facility] [address] [id number] [place] [address]- 6397 Oct, [facility] [place] [facility] [address] [id number] [place] [address]- 2987 24 Sep, 2013 [facility] [place] [facility] [address] [id number] [place] [address]- 2066 Sep, [facility] [place] [facility] [address] [facility] [id number] [place] [address]- 9582 Sep, [facility] [place] [facility] [address] [id number] [place] [address]- 8962 Sep, [facility] [place] [facility] [address] [id number] [place] [address]- 1799 Sep, [facility] [place] [facility] [address] [facility] [id number] [place] [address]- 9391 Sep, [facility] [place] [facility] [address] [facility] [id number] [place] [address]- 3940 18 Sep, 2013 [facility] [place] [facility] [address] [facility] [id number] [place] [address]- 8521 18 Sep, 2013 [facility] [place] [facility] [address] [facility] [id number] [place] [address]- 5352 14 Sep, 2013 [facility] [place] [facility] [address] [id number] [place] [address]- 0290 14 Sep, 2013 [facility] [place] [facility] [address] [facility] [id number] [place] [address]- 3221 14 Sep, 2013 [facility] [place] [facility] [address] [facility] [id number] [place] [address]- 8115 14 Sep, 2013 [facility] [place] [facility] [address] [id number] [place] [address]- 0293 14 Sep, 2013 [facility] [place] [facility] [address] [id number] [place] [address]- 8916 14 Sep, 2013 [facility] [place] [facility] [address] [id number] [place] [address]- 9726 Sep, [facility] [place] [facility] [address] [id number] [place] [address]- 5391 Sep, [facility] [place] [facility] [address] [id number] [place] [address]- 6765 Sep, [facility] [place] [facility] [address] [id number] [place] [address]- 2509 Sep, [facility] [place] [facility] [address] [id number] [place] [address]- 9991 Sep, [facility] [place] [facility] [address] [id number] [place] [address]- 4318 Sep, [facility] [place] [facility] [address] [id number] [place] [address]- 7978 Aug, [facility] [place] [facility] [address] [id number] [place] [address]- 9640 Aug, [facility] [place] [facility] [address] [id number] [place] [address]- 0119 Aug, [facility] [place] [facility] [address] [id number] [place] [address]- 5454 Aug, [facility] [place] [facility] [address] [id number] [place] [address]- 1184 Aug, [facility] [place] [facility] [address] [id number] [place] [address]- 3081 Jul, [facility] [place] [facility] [address] [id number] [place] [address]- 5598 Jul, [facility] [place] [facility] [address] [id number] [place] [address]- 9813 Jul, [facility] [place] [facility] [address] [id number] [place] [address]- 4843 Jul, [facility] [place] [facility] [address] [id number] [place] 3803 Jul, [facility] [place] [facility] [address] [id number] [place] [address]- 1373 Jul, [facility] [place] [facility] [address] [id number] [place] [address]- 7487 Jul, [facility] [place] [facility] [address] [id number] [place] [address]- 2961 Jul, [facility] [place] [facility] [address] [id number] [place] [address]- 2503 Jul, [facility] [place] [facility] [address] [id number], [place] [address]- 8038 Jun, [facility] [place] [facility] [address] [id number], [place] [address]- 3144 Jun, [facility] [place] [facility] [address] [id number], [place] [address]- 9453 Jun, [facility] [place] [facility] [address] [id number], [place] [address]- 2503 Jun, [facility] [place] [facility] [address] [id number], [place] [address]- 1011 Jun, [facility] [place] [facility] [address] [id number], [place] [address]- 3660 Jun, [facility] [place] [facility] [address] [id number], [place] [address]- 6121 Jun, [facility] [place] [facility] [address] [facility] [id number], [place] [address]- 3252 Jun, [facility] [place] [facility] [address] [id number], [place] [address]- 7029 Jun, [facility] [place] [facility] [address] [id number] [place] [address]- 1417 Jun, [facility] [place] [facility] [address] [id number] [place] [address]- 3373 May, [facility] [place] [facility] [address] [id number] [place] [address]- 9726 May, [facility] [place] [facility] [address] [id number] [place] [address]- 2692 May, [facility] [place] [facility] [address] [id number] [place] [address]- 2670 May, [facility] [place] [facility] [address] [id number] [place] [address]- 5761 May, [facility] [place] [facility] [address] [id number], [place] [address]- 6189 May, [facility] [place] [facility] [address] [id number] [place] [address]- 4655 May, [facility] [place] [facility] [address] [id number] [place] [address]- 7251 May, [facility] [place] [facility] [address] [id number] [place] [address]- 4261 May, [facility] [place] [facility] [address] [id number], [place] [address]- 7874 26 Apr, 2013 [facility] [place] [facility] [address] [id number], [place] [address]- 7538 16 Apr, 2013 [facility] [place] [facility] [address] [id number] [place] [address]- 9951 12 Apr, 2013 [facility] [place] [facility] [address] [facility] [id number], [place]- 9518 06 Apr, 2013 [facility] [place] [facility] [address] [id number] [place] [address]- 0308 Mar, [facility] [place] [facility] [address] [id number] [place] [address]- 9723 Mar, [facility] [place] [facility] [address] [id number] [place] [address]- 8248 Mar, [facility] [place] [facility] [address] [id number] [place] [address]- 7076 Mar, [facility] [place] [facility] [address] [id number] [place] [address]- 3305 Mar, [facility] [place] [facility] [address] [id number] [place] [address]- 7106 Mar, [facility] [place] [facility] [address] [id number] [place] [address]- 5970 Mar, [facility] [place] [facility] [address] [id number] [place] [address]- 2265 Feb, [facility] [place] [facility] [address] [id number] [place] [address]- 0366 Feb, [facility] [place] [facility] [address] [id number] [place] [address]- 1151 Feb, [facility] [place] [facility] [address] [id number] [place] [address]- 4710 Feb, [facility] [place] [facility] [address] [id number] [place] [address]- 1013 Feb, [facility] [place] [facility] [address] [id number] [place] [address]- 7154 Feb, [facility] [place] [facility] [address] [id number] [place] [address]- 2540 Feb, [facility] [place] [facility] [address] [id number] [place] [address]- 5930 Feb, [facility] [place] [facility] [address] [id number] [place] [address] 2547 Feb, [facility] [place] [facility] [address] [id number] [place] [address]- 0394 Feb, [facility] [address] [id number] [place] [address]- 9324 Feb, [facility] [place] [facility] [address] [id number] [place] [address]- 9006 Jan, [facility] [place] [facility] [address] [id number] [place] [address]- 3449 Jan, [facility] [place] [facility] [address] [id number] [place] [address]- 1056 December, [facility] [place] [facility] [address] [id number] [place] [address]- 5171 December, [facility] [place] [facility] [address] [id number] [place] [address]- 9058 Nov, [facility] [place] [facility] [address] [id number] [place] [address]- 0387 Nov, [facility] [place] [facility] [address] [id number] [place] [address]- 2611 Oct, [facility] [place] [facility] [address] [id number] [place] [address]- 9726 Oct, [facility] [place] [facility] [address] [id number] [place] [address]- 4115 Oct, [facility] [place] [facility] [address] [id number] [place] [address]- 1767 Oct, [facility] [place] [facility] [address] [id number] [place] [address]- 5624 Sep, [facility] [place] [facility] [address] [id number] [place] [address]- 6756 Sep, [facility] [place] [facility] [address] [id number] [place] [address]- 7096 Sep, [facility] [place] [facility] [address] [id number] [place] [address]- 1706 Sep, [facility] [place] [facility] [address] [id number] [place] [address]- 5831 Aug, [facility] [address] [id number] [place] [address]- 9610 Aug, [facility] [place] [facility] [address] [id number] [place] [address]- 6132 Jul, [facility] [address] [id number] [place] [address]- 9203 Jul, [facility] [address] [id number] [place] [address]- 1046 Jul, [facility] [id number] [place] [address], [place] [address]- 5745 Jul, [facility] [address] [id number] [place] [address]- 0388 Jul, [facility] [address] [id number] [place] [address]- 9493 Jul, [facility] [address] [id number] [place] [address]- 4421 Jun, [facility] [place] [facility] [address] [id number] [place] [address]- 3831 Jun, [facility] [address] [id number] [place] [address]- 6149 Jun, [facility] [place] [facility] [address] [id number] [place] [address]- 3536 Jun, [facility] [place] [facility] [address] [id number] [place] [address]- 5415 Jun, [facility] [place] [facility] [address] [id number] [place] [address]- 6982 May, [facility] [place] [facility] [address] [id number] [place] [address]- 0436 May, [facility] [place] [facility] [address] [id number] [place] [address]- 0797 May, [facility] [place] [facility] [address] [id number] [place] [address]- 0937 May, [facility] [place] [facility] [address] [id number] [place] [address]- 1687 May, [facility] [place] [facility] [address] [id number] [place] [address] May, [facility] [place] [facility] [address] [id number] [place] [address] May, [facility] [place] [facility] [address] [id number] [place] [address] May, [facility] [place] [facility] [address] [id number] [place] [address] Mar, [facility] [place] [facility] [address] [id number] [place] [address] Mar, [facility] [place] [facility] [address] [id number] [place] [address] Mar, [facility] [place] [facility] [address] [id number] [place] [address] Feb, [facility] [place] [facility] [address] [id number], [place] [address] Feb, [facility] [place] [facility] [address] [id number], [place] [address] Feb, [facility] [place] [facility] [address] [id number], [place] [address] Feb, [facility] [place] [facility] [address] [id number] [place] [address] Jan, [facility] [place] [facility] [address] [id number] [place] [address] Jan, [facility] [place] [facility] [address] [id number], [place] [address] Jan, [facility] [place] [facility] [address] [id number], [place] [address] December, [facility] [address] [id number] [place] [address] Nov, [facility] [place] [facility] [address] [id number] [place] [address] Oct, [facility] [place] [facility] [address] [id number] [place] [address] Oct, [facility] [place] [facility] [address] [id number] [place] [address] Oct, [facility] [address] [id number] [place] [address] Oct, [facility] [place] [facility] [address] [id number] [place] [address] Aug, [facility] [address] [id number] [place] [address] Aug, [facility] [place] [facility] [address] [id number] [place] [address] Aug, [facility] [address] [id number] [place] [address] Aug, [facility] [place] [facility] [address] [id number] [place] [address] Aug, [facility] [address] [id number] [place] [address] Aug, [facility] [place] [facility] [address] [id number], [place] [address] Aug, [facility] [place] [facility] [address] [id number] [place] [address] Aug, [facility] [place] [facility] [address] [facility] [id number] [place] [address] Jul, [facility] [place] [facility] [address] [id number] [place] [address] Jun, [facility] [place] [facility] [address] [id number] [place] [address] 29 Jun, 2011 [facility] [place] [facility] [address] [id number] [place] [address] 31 Jul, 2010 [facility] [place] [facility] [address] [id number] [place] [address] 22 Jul, 2010 [facility] [place] [facility] [address] [id number] [place] [address] 22 Jul, 2010 [facility] [place] [facility] [address] [id number] [place] [address] 14 Jul, 2010 [facility] [place] [facility] [address] [id number] [place] [address] 14 Jul, 2010 [facility] [place] [facility] [address] [id number] [place] [address] 24 Jun, 2010 [facility] [place] [facility] [address] [id number] [place] [address] May, [facility] [place] [facility] [address] [id number] [place] [address] Mar, [facility] [place] [facility] [address] [id number] [place] [address] Oct, [facility] [place] [facility] [address] [id number] [place] [address] Aug, [facility] [place] [facility] [address] [id number] [place] [address] 15 Jul, 2009 [facility] [place] [facility] [address] [id number] [place] [address] Jul, [facility] [place] [facility] [address] [id number] [place] [address] 06 Jun, 2009 [facility] [place] [facility] [address] [id number] [place] [address] Jun, [facility] [place] [facility] [address] [id number] [place] [address] May, [facility] [address] [facility] [facility] [id number], [place] [id number] May, [facility] [address] [facility] [id number], [place] [address] Mar, [facility] [address] [facility] [id number], [place] [address] Mar, [facility] [address] [facility] [id number], [place] [address] Oct, IMMUNIZATIONS No Known Immunizations SOCIAL HISTORY Never Assessed REASON FOR VISIT Lab (walk-in) PLAN OF CARE VITAL SIGNS MEDICATIONS Unknown Medications RESULTS No Results PROCEDURES Procedure Date Ordered Result Body Site LAB NOT BILLED BY [facility] Jul 27, 2017 VENIPUNCT, ROUTINE* Jul 27, 2017 INSTRUCTIONS MEDICATIONS ADMINISTERED No Known Medications [...] disc replacement L1- L5 - Dr Muhammad ([place]) Surgical History appendectomy 1983 Surgical History hysterectomy 1993 Surgical History dilatation and curettage Surgical History heart cath- Dr Shaw [address] Meza bowel and intestines 2015 Hospitalization History Hospitalization for surgery only
--- OUTSIDE RECORDS SUMMARY | 2018-04-23 11:46 | XMS REPORT ---
Author Author HOLDEN SPAULDING [facility] Address [address] [place] [address] Care Team Providers Care Front Desk Coordinator Name Role Phone MARITZA SPAULDINGISTIN Unavailable PROBLEMS Type Condition ICD9-CM Code [id number] Code Onset Dates Condition Status SNOMED Code Problem Major depressive disorder, recurrent episode, moderate F33.1 Active 515079824 Problem PTSD (post-traumatic stress disorder) F43.10 Active 13373654 Problem Cannabis abuse F12.10 Active 85002939 Problem GERD with esophagitis K21.0 Active 022970850 Problem Spasm of muscle 728.85 Active 01264186 Problem Cocaine use disorder, moderate, in sustained remission F14.21 Active 52611031 Problem Diarrhea 787.91 Active 36282470 Problem Alcohol use disorder, mild, 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 Active 55533638 Problem Tobacco use Z72.0 Active 346124344 Problem Methamphetamine use disorder, severe, 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2 Active 157637394 Problem Insomnia 780.52 Active 329996552 Problem Generalized anxiety disorder F41.1 Active 46985124 ALLERGIES Substance Reaction Event Type Date Status Pravastatin Sodium itching Drug Allergy Aug, Active Duragesic-100 vomiting- Patches only Drug Allergy Aug, Active ENCOUNTERS Encounter Location Date Diagnosis [facility] [address] [address] Feb, [place] [id number] [place] [address]33- 0610 Jan, Cocaine use disorder, moderate, in sustained [...] Major depressive disorder, recurrent episode, moderate F33.1 [place] [id number] [place] [address] 77932- 0769 Jan, Dysuria R30.0 and GERD with esophagitis K21.0 [place] [id number] [place] [address] 26139- 8281 December, Major depressive disorder, recurrent episode, moderate F33.1 [place] [id number] [place] [address] 86105- 1911 December, [place] [id number] [place] [address] 05986- 5531 December, Major depressive disorder, recurrent episode, moderate [...] sustained remission F10.11 and Tobacco use Z72.0 [place] [id number] [place] [address] 15599- 8281 Nov, [facility] [id number] [address] Nov, [facility] [address] [place] [address] 87535- 8866 Nov, Wellness examination Z00.00 ; Encounter for immunization Z23 ; Screening for osteoporosis Z13.820 ; Screening for breast cancer Z12.31 and Left breast lump N63.20 [facility] [id number] [place] [id number] Oct, Dental examination Z01.20 [facility] [id number] [place] [address] 80616- 2608 Oct, [facility] [address] [address]- [address] Oct, [place] [id number] [place] [address] 02165- 5537 16 Sep, 2017 [place] [id number] [place] [address] 78018- 7977 15 Sep, 2017 [facility] [id number] [place] [address] 68454- 4175 14 Sep, 2017 Left otitis media with effusion H65.92 ; Acute suppurative otitis media of right ear without spontaneous rupture of tympanic membrane, recurrence not specified H66.001 ; Dizziness R42 and Fatigue 780.79 [place] [address] [place] [address] 51426- 2157 Aug, Major depressive disorder, recurrent episode, moderate [...] F10.11 and Tobacco use Z72.0 [facility] IN [facility] [address] [place] [address] 97450 -5215 Aug, Ingrown right big toenail L60.0 [facility] [id number] [place] [address] 31874- 5603 Aug, [facility] [address] [address] 0245 Aug, PTSD (post-traumatic stress disorder) F43.10 [facility] [address] [place] [address] 86135- 7090 Aug, Major depressive disorder, recurrent episode, moderate F33.1 ; Generalized anxiety disorder F41.1 and Cannabis abuse F12.10 [facility] [address] [place] [address] 43915- 0845 Jul, [facility] [address] [address] 4009 Jul, [facility] [id number] [place] [address] 03364- 1992 Jul, [facility] [id number] [place] [address] 96812- 2616 Jul, Major depressive disorder, recurrent episode, moderate F33.1 ; Generalized anxiety disorder F41.1 and Cannabis abuse F12.10 [facility] [address] [address] 2107 Jul, [facility] [address] [place] [address] 83152- 4014 Jul, [place] [address] [address] 3618 Jul, Hyperlipidemia 272.4 [facility] [address] [place] [address] 28329- 1977 Jul, PTSD (post-traumatic stress disorder) F43.10 [facility] [address] [place] [address] 69018- 2160 14 Jul, 2017 Tobacco use Z72.0 ; [...] anxiety disorder F41.1 and Cannabis abuse F12.10 [place] [id number] [place] [address] 32236- 2982 Jul, [place] [id number] [place] [address] 40329- 6546 Jul, Dysuria R30.0 and Mixed hyperlipidemia E78.2 [place] [address] 83417- 0525 Jun, Major depressive disorder, recurrent episode, moderate F33.1 ; Generalized anxiety disorder F41.1 and Cannabis abuse F12.10 [place] [id number] [place] [address] 79751- 5728 Jun, [place] [id number] [place] [address] 54026- 7819 Jun, Generalized anxiety disorder F41.1 ; Major depressive disorder, recurrent episode, moderate F33.1 ; PTSD (post-traumatic stress disorder) F43.10 ; Opioid use disorder, moderate, in sustained remission F11.21 ; Cannabis abuse F12.10 ; Alcohol use disorder, mild, 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 ; Methamphetamine use disorder, severe, 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 ; Cocaine use disorder, moderate, in sustained remission F14.21 and Tobacco use Z72.0 [place] [id number] [place] [address] 45773- 9563 Jun, Major depressive disorder, recurrent episode, moderate F33.1 ; Generalized anxiety disorder F41.1 and Cannabis abuse F12.10 [place] [address] [place] [address] 12391- 4702 Jun, [place] [id number] [place] [address] 57562- 3572 Jun, [place] [address] [place] [address] 49359- 3566 Jun, Major depressive disorder, recurrent episode, moderate F33.1 ; Generalized anxiety disorder F41.1 and Cannabis abuse F12.10 [facility] [address] [id number] Mar, Dental examination Z01.20 [facility] [address] [id number] [place] [address] [id number] Feb, Dental examination Z01.20 [facility] [id number] [place] [address] 36264- 5494 Mar, [facility] [id number] [place] [address] 75120- 7673 Mar, [facility] [address] 35744- 1642 Feb, Hyperlipidemia 272.4 and Prediabetes 790.29 [facility] [id number] [place] [address] 88087- 0296 Feb, Fatigue 780.79 and Hyperlipidemia 272.4 [facility] [id number] [place] [address] 29290- 8929 Feb, Lumbago 724.2 ; Hyperlipidemia 272.4 ; Insomnia 780.52 and Fatigue 780.79 [facility] [id number] [place] [address] 98372- 1436 Nov, [facility] [address] [place] [address] 97951- 5040 Nov, [facility] [id number] [place] [address] 82957- 0619 Mar, [facility] [id number] [place] [address] 28618- 7412 Mar, [facility] [id number] [place] [address] 092861- 8906 Jan, [facility] [id number] [place] [address] 16994- 1862 Jan, [facility] [address] [place] [address]- 5698 December, [facility] [place] [facility] [address] [id number] [place] [address]- 5866 December, [facility] [place] [facility] [address] [id number] [place] [address]- 6198 Nov, [facility] [place] [facility] [address] [id number] [place] [address]- 8811 30 Nov, 2013 [facility] [place] [facility] [address] [id number] [place] [address]- 7019 Nov, [facility] [place] [facility] [address] [id number] [place] [address]- 6423 Nov, [facility] [place] [facility] [address] [id number] [place] [address]- 1042 Nov, [facility] [place] [facility] [address] [id number] [place] [address]- 7721 Nov, [facility] [place] [facility] [address] [id number] [place] [address]- 2282 Oct, [facility] [place] [facility] [address] [id number] [place] [address]- 2916 31 Oct, 2013 [facility] [place] [facility] [address] [id number] [place] [address]- 1466 Oct, [facility] [place] [facility] [address] [id number] [place] [address]- 3611 20 Oct, 2013 [facility] [place] [facility] [address] [id number] [place] [address]- 5875 Oct, [facility] [place] [facility] [address] [id number] [place] [address]- 5933 Oct, [facility] [place] [facility] [address] [id number] [place] [address]- 0445 Oct, [facility] [place] [facility] [address] [id number] [place] 5442 Oct, [facility] [place] [facility] [address] [id number] [place] [address]- 1904 Oct, [facility] [place] [facility] [address] [id number] [place] [address]- 8664 Oct, [facility] [place] [facility] [address] [id number] [place] [address]- 1687 Oct, [facility] [place] [facility] [address] [id number] [place] [address]- 6347 Oct, [facility] [place] [facility] [address] [id number] [place] [address]- 9818 Oct, [facility] [place] [facility] [address] [id number] [place] [address]- 4494 Sep, [facility] [place] [facility] [address] [id number] [place] [address]- 5587 Sep, [facility] [place] [facility] [address] [id number] [place] [address]- 3615 Sep, [facility] [place] [facility] [address] [id number] [place] [address]- 9853 Sep, [facility] [place] [facility] [address] [id number] [place] [address]- 2224 Sep, [facility] [place] [facility] [address] [id number] [place] [address]- 8646 Sep, [facility] [place] [facility] [address] [id number] [place] [address]- 1329 Sep, [facility] [place] [facility] [address] [id number] [place] [address]- 5544 Sep, [facility] [place] [facility] [address] [id number] [place] [address]- 7601 Sep, [facility] [place] [facility] [address] [facility] [id number] [place] [address]- 5482 Sep, [facility] [place] [facility] [address] [id number] [place] [address]- 0503 14 Sep, 2013 [facility] [place] [facility] [address] [id number] [place] [address]- 4396 14 Sep, 2013 [facility] [place] [facility] [address] [id number] [place] [address]- 3096 14 Sep, 2013 [facility] [place] [facility] [address] [id number] [place] [address]- 0440 14 Sep, 2013 [facility] [place] [facility] [address] [id number] [place] [address]- 1043 13 Sep, 2013 [facility] [place] [facility] [address] [id number] [place] [address]- 1117 Sep, [facility] [place] [facility] [address] [id number] [place] [address]- 7979 Sep, [facility] [place] [facility] [address] [id number] [place] [address]- 8458 Sep, [facility] [place] [facility] [address] [id number] [place] [address]- 2770 Sep, [facility] [place] [facility] [address] [id number] [place] [address]- 7083 Sep, [facility] [place] [facility] [address] [id number] [place] [address]- 0041 Aug, [facility] [place] [facility] [address] [id number] [place] [address]- 5131 Aug, [facility] [place] [facility] [address] [id number] [place] [address]- 2575 Aug, [facility] [place] [facility] [address] [id number] [place] [address]- 9289 Aug, [facility] [place] [facility] [address] [id number] [place] [address]- 4184 Aug, [facility] [place] [facility] [address] [id number] [place] [address]- 7937 Jul, [facility] [place] [facility] [address] [id number] [place] [address]- 3854 Jul, [facility] [place] [facility] [address] [id number] [place] [address]- 3923 Jul, [facility] [place] [facility] [address] [facility] [id number] [place] [address]- 5964 Jul, [facility] [place] [facility] [address] [id number] [place] [address]- 9712 Jul, [facility] [place] [facility] [address] [id number] [place] [address]- 3644 Jul, [facility] [place] [facility] [address] [id number] [place] [address]- 2225 Jul, [facility] [place] [facility] [address] [id number] [place] [address]- 7534 Jul, [facility] [place] [facility] [address] [id number] [address]- 7208 Jul, [facility] [place] [facility] [address] [id number] [address]- 5919 Jun, [facility] [place] [facility] [address] [id number] [place] [address]- 9366 Jun, [facility] [place] [facility] [address] [id number] [address]- 5952 Jun, [facility] [place] [facility] [address] [id number] [address]- 7311 Jun, [facility] [place] [facility] [address] [id number] [address]- 1252 Jun, [facility] [place] [facility] [address] [facility] [id number] [address]- 7536 Jun, [facility] [place] [facility] [address] [facility] [id number] [address]- 9401 Jun, [facility] [place] [facility] [address] [id number] [place] [address]- 0028 18 Jun, 2013 [facility] [address] [id number] [place] [address]- 4814 Jun, [facility] [place] [facility] [address] [id number] [place] [address]- 8681 Jun, [facility] [place] [facility] [address] [id number] [place] [address]- 7493 May, [facility] [place] [facility] [address] [id number] [place] [address]- 9552 May, [facility] [place] [facility] [address] [id number] [place] [address]- 6891 May, [facility] [place] [facility] [address] [id number] [place] [address]- 2528 May, [facility] [place] [facility] [address] [id number] [place] [address]- 1233 May, [facility] [place] [facility] [address] [id number] [place] [address]- 0013 May, [facility] [place] [facility] [address] [id number] [place] [address]- 4814 May, [facility] [place] [facility] [address] [id number] [place] [address]- 6863 May, [facility] [place] [facility] [address] [id number] [place] [address]- 2235 May, [facility] [place] [facility] [address] [id number] [place] [address]- 7719 26 Apr, 2013 [facility] [place] [facility] [address] [id number] [place] [address]- 0810 16 Sep2012 [facility] [place] [facility] [address] [id number] [place] [address]- 8013 12 Apr, 2013 [facility] [place] [facility] [address] [id number] [place] [address]- 1302 Apr, [facility] [place] [facility] [address] [id number] [place] [address]- 3618 Mar, [facility] [place] [facility] [address] [id number] [place] [address]- 2162 Mar, [facility] [place] [facility] [address] [id number] [place] [address]- 2032 Mar, [facility] [place] [facility] [address] [id number] [place] [address]- 7807 Mar, [facility] [place] [facility] [address] [id number] [place] [address]- 3873 Mar, [facility] [place] [facility] [address] [id number] [place] [address]- 9218 Mar, [facility] [place] [facility] [address] [id number] [place] [address]- 7410 Mar, [facility] [place] [facility] [address] [id number] [place] [address]- 2009 Feb, [facility] [place] [facility] [address] [id number] [place] [address]- 4428 Feb, [facility] [place] [facility] [address] [id number] [place] [address]- 2928 Feb, [facility] [place] [facility] [address] [id number] [place] [address]- 3583 Feb, [facility] [place] [facility] [address] [id number] [place] [address]- 1415 Feb, [facility] [place] [facility] [address] [id number] [place] [address]- 9184 Feb, [facility] [place] [facility] [address] [id number] [place] [address]- 2702 Feb, [facility] [place] [facility] [address] [id number] [place] 8172 Feb, [facility] [place] [facility] [address] [id number] [address]- 4714 Feb, [facility] [address] [id number] [place] [address]- 7143 Feb, [facility] [address] [id number] [place] [address]- 3492 Feb, [facility] [address] [id number] [place] [address]- 9178 Jan, [facility] [address] [id number] [place] [address]- 1291 Jan, [facility] [address] [id number] [place] [address]- 4031 December, [facility] [address] [id number] [place] [address]- 6469 December, [facility] [address] [facility] [id number] [place] [address]- 6009 Nov, [facility] [address] [id number] [place] [address]- 5464 Nov, [facility] [address] [id number] [place] [address]- 0422 Oct, [facility] [address] [id number] [place] [address]- 2789 Oct, [facility] [address] [id number] [place] [address]- 6491 Oct, [facility] [place] [facility] [address] [id number] [place] [address]- 0499 Oct, [facility] [address] [id number] [place] [address]- 0334 Sep, [facility] [place] [facility] [address] [id number] [place] [address]- 6163 Sep, [facility] [address] [facility] [id number] [place] [address]- 5982 Sep, [facility] [address] [id number] [place] [address]- 8883 Sep, [facility] [place] [facility] [address] [id number] [place] [address]- 6223 Aug, [facility] [place] [facility] [address] [id number] [place] [address]- 7785 Aug, [facility] [place] [facility] [address] [id number] [place] [address] Jul, [facility] [place] [facility] [address] [id number] [place] [address] Jul, [facility] [place] [facility] [address] [id number] [place] [address] Jul, [facility] [place] [facility] [address] [id number] [place] [address] Jul, [facility] [place] [facility] [address] [id number] [place] [address] Jul, [facility] [place] [facility] [address] [id number] [place] [address] Jul, [facility] [place] [facility] [address] [id number] [place] [address] Jun, [facility] [place] [facility] [address] [id number] [place] [address] Jun, [facility] [place] [facility] [address] [id number] [place] [address] Jun, [facility] [place] [facility] [address] [id number] [place] [address] Jun, [facility] [place] [facility] [address] [id number] [place] [address] Jun, [facility] [place] [facility] [address] [id number] [place] [address] May, [facility] [place] [facility] [address] [id number] [place] [address] May, [facility] [place] [facility] [address] [id number] [place] [address] May, [facility] [place] [facility] [address] [id number] [place] [address] May, [facility] [place] [facility] [address] [id number] [place] [address] May, [facility] [place] [facility] [address] [id number] [place] [address] May, [facility] [place] [facility] [address] [id number] [place] [address] May, [facility] [place] [facility] [address] [id number] [place] [address] May, [facility] [place] [facility] [address] [id number] [place] [address] Mar, [facility] [place] [facility] [address] [id number] [place] [address] Mar, [facility] [place] [facility] [address] [id number] [place] [address] Mar, [facility] [place] [facility] [address] [id number] [place] [address] Feb, [facility] [place] [facility] [address] [id number] [place] [address] Feb, [facility] [place] [facility] [address] [id number] [address] Feb, [facility] [place] [facility] [address] [id number] [place] [address] Feb, [facility] [place] [facility] [address] [facility] [id number] [place] [address] Jan, [facility] [place] [facility] [address] [id number] [place] [address] Jan, [facility] [place] [facility] [address] [id number] [place] [address] Jan, [facility] [address] [id number] [place] [address] December, [facility] [address] [id number] [place] [address] Nov, [facility] [address] [id number] [place] [address] Oct, [facility] [address] [id number] [place] [address] Oct, [facility] [address] [id number] [place] [address] Oct, [facility] [address] [id number] [place] [address] Oct, [facility] [address] [id number] [place] [address] Aug, [facility] [address] [id number] [place] [address] Aug, [facility] [address] [id number] [place] [address] Aug, [facility] [address] [id number] [place] [address] Aug, [facility] [address] [id number] [place] [address] 1489 Aug, [facility] [address] [id number] [place] [address] Aug, [facility] [address] [id number] [place] [address] Aug, [facility] [address] [id number] [place] [address] Aug, [facility] [address] [id number] [place] [address] Jul, [facility] [address] [id number] [place] [address] 29 Jun, 2011 [facility] [address] [id number] [place] [address] 29 Jun, 2011 [facility] [address] [id number] [place] [address] 31 Jul, 2010 [facility] [place] [facility] [address] [id number] [place] [address] Jul, [facility] [address] [id number] [place] [address] Jul, [facility] [place] [facility] [address] [id number] [place] [address] Jul, [facility] [address] [id number] [place] [address] Jul, [facility] [address] [id number] [place] [address] Jun, [facility] [place] [facility] [address] [id number] [place] [address] May, [facility] [place] [facility] [address] [id number] [place] [address] Mar, [facility] [place] [facility] [address] [id number] [place] [address] Oct, [facility] [place] [facility] [address] [id number] [address] Aug, [facility] [place] [facility] [address] [id number] [place] [address] 15 Jul, 2009 [facility] [place] [facility] [address] [id number] [place] [address] Jul, [facility] [place] [facility] [address] [id number] [place] [address] Jun, [facility] [place] [facility] [address] [id number] [address] Jun, [facility] [address] [facility] [id number] [address] May, [facility] [address] [facility] [id number] [address] May, [facility] [address] [facility] [id number] [address] Mar, [facility] [address] [facility] [id number] [address] Mar, [facility] [address] [facility] [id number] [address] Oct, IMMUNIZATIONS No Known Immunizations SOCIAL HISTORY Never Assessed REASON FOR VISIT toe pain- has an ingrown toenail that is red, nail is discolored JStrasserRN PLAN OF CARE Activity Details Follow Up prn Reason: VITAL SIGNS Height 68 in 2017-08-29 Weight 196.6 lbs 2017-08-29 Temperature 97.9 degrees Fahrenheit 2017-08-29 Heart Rate 84 bpm 2017-08-29 Respiratory Rate 20 2017-08-29 BMI 29.89 kg/m2 2017-08-29 Blood pressure systolic 120 mmHg 2017-08-29 Blood pressure diastolic 70 mmHg 2017-08-29 MEDICATIONS Medication Instructions Dosage Frequency Start Date End Date Duration Status cyclobenzaprine 10 mg 1 tablet every 6 hours PRN 8h 26 Oct, 2012 Active Naproxen 500 MG Orally 2 times a day 1 tablet as needed 12h Active Xanax 1 mg Orally three times a day 1 tablet 8h 20 Oct, 2013 30 days Active Fenofibrate 48 MG Orally Once a day 1 tablet 24h Jul, 30 day(s ) Active Zetia 10 mg Orally Once a day 1 tablet 24h Jul, 30 day(s) Active Prozac 10 MG Orally daily 1 capsule 24h 15 Jun, 2017 30 days Active Trazodone HCl 100 MG Orally Once a day 1 tablet at bedtime 24h Feb, 30 days Active RESULTS No Results PROCEDURES [...] disc replacement L1- L5 - Dr Muhammad ([facility]) Surgical History appendectomy 1983 Surgical History hysterectomy 1993 Surgical History dilatation and curettage Surgical History heart cath- Dr Shaw [address] Meza bowel and intestines seperated 2015 Hospitalization History Hospitalization for surgery only
--- OUTSIDE RECORDS SUMMARY | 2018-04-23 11:47 | XMS REPORT ---
Author Author WILD RODRIGUEZ [facility] Address [address] [place] [address] Care Team Providers Care Line Dancer Name Role Phone WILD RODRIGUEZ Unavailable PROBLEMS Type Condition ICD9-CM Code COU35-PB Code Onset Dates Condition Status SNOMED Code Problem Major depressive disorder, recurrent episode, moderate F33.1 Active 366131461 Problem PTSD (post-traumatic stress disorder) F43.10 Active 12971258 Problem Cannabis abuse F12.10 Active 30881095 Problem GERD with esophagitis K21.0 Active 955314557 Problem Spasm of muscle 728.85 Active 74275102 Problem Cocaine use disorder, moderate, in sustained remission F14.21 Active 16635139 Problem Diarrhea 787.91 Active 83132113 Problem Alcohol use disorder, mild, 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 Active 56264160 Problem Tobacco use Z72.0 Active 420166914 Problem Methamphetamine use disorder, severe, 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2 Active 390221039 Problem Insomnia 780.52 Active 987211784 Problem Generalized anxiety disorder F41.1 Active 32826734 ALLERGIES No Information ENCOUNTERS Encounter Location Date Diagnosis [facility] [place] [address] [facility] [id number] [address] Feb, [facility] [place] [id number] [place] [address]353- 9523 Jan, Cocaine use disorder, moderate, in sustained [...] Major depressive disorder, recurrent episode, moderate F33.1 [place] [id number] [place] [address]44- 8293 Jan, Dysuria R30.0 and GERD with esophagitis K21.0 [place] [id number] [place] [address]886- 3843 December, Major depressive disorder, recurrent episode, moderate F33.1 [place] [id number] [place] [address] 86855- 2116 December, [place] [id number] [place] [address] 74711- 1856 December, Major depressive disorder, recurrent episode, moderate [...] sustained remission F10.11 and Tobacco use Z72.0 [place] [id number] [place] [address]2572- 8227 Nov, [facility] [address] [place] [id number] [place] [address] Nov, [place] [id number] [place] [address] 48174- 1761 Nov, Wellness examination Z00.00 ; Encounter for immunization Z23 ; Screening for osteoporosis Z13.820 ; Screening for breast cancer Z12.31 and Left breast lump N63.20 [facility] [address] [id number] [id number] Oct, Dental examination Z01.20 [facility] [place] [address] [address] Oct, [facility] [place] [address] [address] Oct, [facility] [place] [address] [address] Sep, [facility] [place] [id number] [place] [address] 10718- 3242 Sep, [facility] [place] [address] [place] [address] 95209- 7305 14 Sep, 2017 Left otitis media with effusion H65.92 ; Acute suppurative otitis media of right ear without spontaneous rupture of tympanic membrane, recurrence not specified H66.001 ; Dizziness R42 and Fatigue 780.79 [facility] [place] [address] [address] Aug, Major depressive disorder, recurrent episode, moderate [...] sustained remission F10.11 and Tobacco use Z72.0 [facility] [address] [id number] [address] Aug, Ingrown right big toenail L60.0 [facility] [place] [address], [place] [address] 83[address] Aug, [facility] [place] [address] [address] Aug, PTSD (post-traumatic stress disorder) F43.10 [facility] [place] [address] [address] Aug, Major depressive disorder, recurrent episode, moderate F33.1 ; Generalized anxiety disorder F41.1 and Cannabis abuse F12.10 [facility] [place] [address], [place] [address] Jul, [facility] [place] [id number] [place] [address]21- 5906 Jul, [facility] [place] [address], [place] [address] 4[address] Jul, [facility] [place] [id number] [place] [address] 02140- 6406 Jul, Major depressive disorder, recurrent episode, moderate F33.1 ; Generalized anxiety disorder F41.1 and Cannabis abuse F12.10 [facility] [place] [address] [address] Jul, [facility] [place] [id number] [place] [address] 22911- 4276 Jul, [facility] [place] [address] [place] [address] 06444- 2786 Jul, Hyperlipidemia 272.4 [facility] [address] [address] 7036 Jul, PTSD (post-traumatic stress disorder) F43.10 [facility] [place] [address] [address]- 4[address] 14 Jul, 2017 Tobacco use Z72.0 ; [...] anxiety disorder F41.1 and Cannabis abuse F12.10 [facility] [place] [address] [address]- 4247 Jul, [facility] [place] [id number] [place] [address] 73602- 2566 Jul, Dysuria R30.0 and Mixed hyperlipidemia E78.2 [facility] [place] [address] [place] [address] 50215- 4697 Jun, Major depressive disorder, recurrent episode, moderate F33.1 ; Generalized anxiety disorder F41.1 and Cannabis abuse F12.10 [facility] [place] [address] [place] [address] 72472- 7402 Jun, [place] [id number] [place] [address] 92487- 2363 Jun, Generalized anxiety disorder F41.1 ; Major depressive disorder, recurrent episode, moderate F33.1 ; PTSD (post-traumatic stress disorder) F43.10 ; Opioid use disorder, moderate, in sustained remission F11.21 ; Cannabis abuse F12.10 ; Alcohol use disorder, mild, 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 ; Methamphetamine use disorder, severe, 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 ; Cocaine use disorder, moderate, in sustained remission F14.21 and Tobacco use Z72.0 [facility] [place] [address] [place] [address] 93127- 5968 Jun, Major depressive disorder, recurrent episode, moderate F33.1 ; Generalized anxiety disorder F41.1 and Cannabis abuse F12.10 [facility] [place] [address] [address]- 6778 Jun, [facility] [place] [address] [address]- 2555 Jun, [facility] [place] [address] [place] [address] 62260- 0960 Jun, Major depressive disorder, recurrent episode, moderate F33.1 ; Generalized anxiety disorder F41.1 and Cannabis abuse F12.10 [facility] [address] [place] [id number] Mar, Dental examination Z01.20 [facility] [id number] [id number] Feb, Dental examination Z01.20 [facility] [place] [address] 1445 Mar, [facility] [place] [id number] [place] [address] 47655- 9033 Mar, [facility] [place] [id number] [place] [address] 81267- 0951 Feb, Hyperlipidemia 272.4 and Prediabetes 790.29 [facility] [place] [id number] [place] [address] 80926- 3283 Feb, Fatigue 780.79 and Hyperlipidemia 272.4 [facility] [place] [id number] [place] [address] 27862- 3820 Feb, Lumbago 724.2 ; Hyperlipidemia 272.4 ; Insomnia 780.52 and Fatigue 780.79 [facility] [place] [address] [address]- 1721 Nov, [facility] [place] [id number] [place] [address] 18247- 7662 Nov, [facility] [place] [address], [place] [address]- 5930 Mar, [facility] [place] [address], [place] [address]- 4432 Mar, [facility] [place] [address] 7191 Jan, [facility] [place] [id number] [place] [address] 43407- 2844 Jan, [facility] [address], [place] [address]- 5464 December, [facility] [id number] [place] [address] 52761- 2012 December, [facility] [place] [facility] [address] [id number] [place] [address]- 5424 Nov, [facility] [place] [facility] [address] [id number] [place] 4453 Nov, [facility] [place] [facility] [address] [id number] [place] [address]- 3522 Nov, [facility] [place] [facility] [address] [id number] [place] [address]- 3969 Nov, [facility] [place] [facility] [address] [id number] [place] [address]- 6219 Nov, [facility] [place] [facility] [address] [id number] [place] [address]- 2634 Nov, [facility] [place] [facility] [address] [id number] [place] [address]- 5504 Oct, [facility] [place] [facility] [address] [id number] [place] [address]- 0394 31 Oct, 2013 [facility] [place] [facility] [address] [id number] [place] [address]- 1969 Oct, [facility] [place] [facility] [address] [id number] [place] [address]- 6134 Oct, [facility] [place] [facility] [address] [id number] [place] [address]- 5292 Oct, [facility] [place] [facility] [address] [id number] [place] [address]- 6211 19 Oct, 2013 [facility] [place] [facility] [address] [id number] [place] [address]- 7980 Oct, [facility] [place] [facility] [address] [id number] [place] [address]- 4657 Oct, [facility] [place] [facility] [address] [id number] [place] [address]- 4574 Oct, [facility] [place] [facility] [address] [id number] [place] [address]- 7711 04 Oct, 2013 [facility] [place] [facility] [address] [id number] [place] [address]- 1240 Oct, [facility] [place] [facility] [address] [id number] [place] [address]- 0160 Oct, [facility] [place] [facility] [address] [id number] [place] [address]- 8752 Oct, [facility] [place] [facility] [address] [id number] [place] [address]- 1399 24 Sep, 2013 [facility] [place] [facility] [address] [id number] [place] [address]- 2620 Sep, [facility] [place] [facility] [address] [facility] [id number] [place] [address]- 1672 Sep, [facility] [place] [facility] [address] [id number] [place] [address]- 5576 Sep, [facility] [place] [facility] [address] [id number] [place] [address]- 6103 Sep, [facility] [place] [facility] [address] [facility] [id number] [place] [address]- 5639 Sep, [facility] [place] [facility] [address] [facility] [id number] [place] [address]- 2999 18 Sep, 2013 [facility] [place] [facility] [address] [facility] [id number] [place] [address]- 5946 18 Sep, 2013 [facility] [place] [facility] [address] [facility] [id number] [place] [address]- 3811 14 Sep, 2013 [facility] [place] [facility] [address] [id number] [place] [address]- 8854 14 Sep, 2013 [facility] [place] [facility] [address] [facility] [id number] [place] [address]- 8449 14 Sep, 2013 [facility] [place] [facility] [address] [facility] [id number] [place] [address]- 8865 14 Sep, 2013 [facility] [place] [facility] [address] [id number] [place] [address]- 6651 14 Sep, 2013 [facility] [place] [facility] [address] [id number] [place] [address]- 9886 14 Sep, 2013 [facility] [place] [facility] [address] [id number] [place] [address]- 3436 Sep, [facility] [place] [facility] [address] [id number] [place] [address]- 5731 Sep, [facility] [place] [facility] [address] [id number] [place] [address]- 0291 Sep, [facility] [place] [facility] [address] [id number] [place] [address]- 1813 Sep, [facility] [place] [facility] [address] [id number] [place] [address]- 0267 Sep, [facility] [place] [facility] [address] [id number] [place] [address]- 2916 Sep, [facility] [place] [facility] [address] [id number] [place] [address]- 2891 Aug, [facility] [place] [facility] [address] [id number] [place] [address]- 1936 Aug, [facility] [place] [facility] [address] [id number] [place] [address]- 5238 Aug, [facility] [place] [facility] [address] [id number] [place] [address]- 8370 Aug, [facility] [place] [facility] [address] [id number] [place] [address]- 7130 Aug, [facility] [place] [facility] [address] [id number] [place] [address]- 6303 Jul, [facility] [place] [facility] [address] [id number] [place] [address]- 7390 Jul, [facility] [place] [facility] [address] [id number] [place] [address]- 1977 Jul, [facility] [place] [facility] [address] [id number] [place] [address]- 2116 Jul, [facility] [place] [facility] [address] [id number] [place] 8677 Jul, [facility] [place] [facility] [address] [id number] [place] [address]- 6601 Jul, [facility] [place] [facility] [address] [id number] [place] [address]- 9346 Jul, [facility] [place] [facility] [address] [id number] [place] [address]- 0477 Jul, [facility] [place] [facility] [address] [id number] [place] [address]- 6259 Jul, [facility] [place] [facility] [address] [id number], [place] [address]- 0813 Jun, [facility] [place] [facility] [address] [id number], [place] [address]- 8102 Jun, [facility] [place] [facility] [address] [id number], [place] [address]- 2306 Jun, [facility] [place] [facility] [address] [id number], [place] [address]- 4125 Jun, [facility] [place] [facility] [address] [id number], [place] [address]- 1725 Jun, [facility] [place] [facility] [address] [id number], [place] [address]- 7893 Jun, [facility] [place] [facility] [address] [id number], [place] [address]- 4116 Jun, [facility] [place] [facility] [address] [facility] [id number], [place] [address]- 3268 Jun, [facility] [place] [facility] [address] [id number], [place] [address]- 2823 Jun, [facility] [place] [facility] [address] [id number] [place] [address]- 7051 Jun, [facility] [place] [facility] [address] [id number] [place] [address]- 4139 May, [facility] [place] [facility] [address] [id number] [place] [address]- 5927 May, [facility] [place] [facility] [address] [id number] [place] [address]- 4828 May, [facility] [place] [facility] [address] [id number] [place] [address]- 3595 May, [facility] [place] [facility] [address] [id number] [place] [address]- 4410 May, [facility] [place] [facility] [address] [id number], [place] [address]- 2289 May, [facility] [place] [facility] [address] [id number] [place] [address]- 8256 May, [facility] [place] [facility] [address] [id number] [place] [address]- 4608 May, [facility] [place] [facility] [address] [id number] [place] [address]- 3737 May, [facility] [place] [facility] [address] [id number], [place] [address]- 5529 26 Apr, 2013 [facility] [place] [facility] [address] [id number], [place] [address]- 9207 16 Apr, 2013 [facility] [place] [facility] [address] [id number] [place] [address]- 9171 12 Apr, 2013 [facility] [place] [facility] [address] [facility] [id number] 0920 06 Apr, 2013 [facility] [place] [facility] [address] [id number] [place] [address]- 3406 Mar, [facility] [place] [facility] [address] [id number] [place] [address]- 1214 Mar, [facility] [place] [facility] [address] [id number] [place] [address]- 0081 Mar, [facility] [place] [facility] [address] [id number] [place] [address]- 5786 Mar, [facility] [place] [facility] [address] [id number] [place] [address]- 0141 Mar, [facility] [place] [facility] [address] [id number] [place] [address]- 6811 Mar, [facility] [place] [facility] [address] [id number] [place] [address]- 5779 Mar, [facility] [place] [facility] [address] [id number] [place] [address]- 1099 Feb, [facility] [place] [facility] [address] [id number] [place] [address]- 6813 Feb, [facility] [place] [facility] [address] [id number] [place] [address]- 0809 Feb, [facility] [place] [facility] [address] [id number] [place] [address]- 6642 Feb, [facility] [place] [facility] [address] [id number] [place] [address]- 0444 Feb, [facility] [place] [facility] [address] [id number] [place] [address]- 8414 Feb, [facility] [place] [facility] [address] [id number] [place] [address]- 2541 Feb, [facility] [place] [facility] [address] [id number] [place] [address]- 1294 Feb, [facility] [place] [facility] [address] [id number] [place] [address] 2545 Feb, [facility] [place] [facility] [address] [id number] [place] [address]- 7529 Feb, [facility] [address] [id number] [place] [address]- 2670 Feb, [facility] [place] [facility] [address] [id number] [place] [address]- 0989 Jan, [facility] [place] [facility] [address] [id number] [place] [address]- 8792 Jan, [facility] [place] [facility] [address] [id number] [place] [address]- 9783 December, [facility] [place] [facility] [address] [id number] [place] [address]- 5808 December, [facility] [place] [facility] [address] [id number] [place] [address]- 1311 Nov, [facility] [place] [facility] [address] [id number] [place] [address]- 7769 Nov, [facility] [place] [facility] [address] [id number] [place] [address]- 1333 Oct, [facility] [place] [facility] [address] [id number] [place] [address]- 9104 Oct, [facility] [place] [facility] [address] [id number] [place] [address]- 5985 Oct, [facility] [place] [facility] [address] [id number] [place] [address] Oct, [facility] [place] [facility] [address] [id number] [place] [address] Sep, [facility] [place] [facility] [address] [id number] [place] [address] Sep, [facility] [place] [facility] [address] [id number] [place] [address] Sep, [facility] [place] [facility] [address] [id number] [place] [address] Sep, [facility] [place] [facility] [address] [id number] [place] [address] Aug, [facility] [address] [id number] [place] [address] Aug, [facility] [place] [facility] [address] [id number] [place] [address] Jul, [facility] [address] [id number] [place] [address] Jul, [facility] [address] [id number] [place] [address]- [address] Jul, [facility] [address] [id number] [place] [id number], [place] [address]- [address] Jul, [facility] [address] [id number] [place] [address] Jul, [facility] [address] [id number] [place] [address] Jul, [facility] [address] [id number] [place] [address] 28[address] Jun, [facility] [place] [facility] [address] [id number] [place] [address]- [address] Jun, [facility] [address] [id number] [place] [address]- 2473 Jun, [facility] [place] [facility] [address] [id number] [place] [address]- [address] Jun, [facility] [place] [facility] [address] [id number] [place] [address]- [address] Jun, [facility] [place] [facility] [address] [id number] [place] [address]- [address] May, [facility] [place] [facility] [address] [id number] [place] [address]- [address] May, [facility] [place] [facility] [address] [id number] [place] [address]- [address]65 May, [facility] [place] [facility] [address] [id number] [place] [address]- [address] May, [facility] [place] [facility] [address] [id number] [place] [address]- 9895 May, [facility] [place] [facility] [address] [id number] [place] [address]- 28[address] May, [facility] [place] [facility] [address] [id number] [place] [address]- 9079 May, [facility] [place] [facility] [address] [id number] [place] [address]- [address] May, [facility] [place] [facility] [address] [id number] [place] [address]- 77[address] Mar, [facility] [place] [facility] [address] [id number] [place] [address]- 3581 Mar, [facility] [place] [facility] [address] [id number] [place] [address]- 8676 Mar, [facility] [place] [facility] [address] [id number] [place] [address]- [address] Feb, [facility] [place] [facility] [address] [id number], [place] [address] Feb, [facility] [place] [facility] [address] [id number], [place] [address]- [address] Feb, [facility] [place] [facility] [address] [id number], [place] [address]- [address] Feb, [facility] [place] [facility] [address] [id number] [place] [address]- [address] Jan, [facility] [place] [facility] [address] [id number] [place] [address] Jan, [facility] [place] [facility] [address] [id number], [place] [address] Jan, [facility] [place] [facility] [address] [id number], [place] [address]- [address] December, [facility] [address] [id number] [place] [address]- [address] Nov, [facility] [place] [facility] [address] [id number] [place] [address]- [address] Oct, [facility] [place] [facility] [address] [id number] [place] [address]- [address] Oct, [facility] [place] [facility] [address] [id number] [place] [address]- [address]28 Oct, [facility] [address] [id number] [place] [address]- [address] Oct, [facility] [place] [facility] [address] [id number] [place] [address]- [address] Aug, [facility] [address] [id number] [place] [address]- [address] Aug, [facility] [place] [facility] [address] [id number] [place] [address]- [address] Aug, [facility] [address] [id number] [place] [address]- 8547 Aug, [facility] [place] [facility] [address] [id number] [place] [address] Aug, [facility] [address] [id number] [place] [address]- [address] Aug, [facility] [facility] [address] [id number], [place] [address] Aug, [facility] [place] [facility] [address] [id number] [place] [address] Aug, [facility] [place] [facility] [address] [facility] [id number] [place] [address] Jul, [facility] [place] [facility] [address] [id number] [place] [address] Jun, [facility] [place] [facility] [address] [id number] [place] [address] 29 Jun, 2011 [facility] [place] [facility] [address] [id number] [place] [address] 31 Jul, 2010 [facility] [place] [facility] [address] [id number] [place] [address] 22 Jul, 2010 [facility] [place] [facility] [address] [id number] [place] [address] 22 Jul, 2010 [facility] [place] [facility] [address] [id number] [place] [address] 14 Jul, 2010 [facility] [place] [facility] [address] [id number] [place] [address] 14 Jul, 2010 [facility] [place] [facility] [address] [id number] [place] [address] 24 Jun, 2010 [facility] [place] [facility] [address] [id number] [place] [address] May, [facility] [place] [facility] [address] [id number] [place] [address] Mar, [facility] [place] [facility] [address] [id number] [place] [address] Oct, [facility] [place] [facility] [address] [id number] [place] [address] Aug, [facility] [place] [facility] [address] [id number] [place] [address] 15 Jul, 2009 [facility] [place] [facility] [address] [id number] [place] [address] Jul, [facility] [place] [facility] [address] [id number] [place] [address] 06 Jun, 2009 [facility] [place] [facility] [address] [id number] [place] [address] Jun, [facility] [place] [facility] [address] [id number] [place] [address] May, [facility] [place] [address] [facility] [id number] [place] [address] May, [facility] [place] [address] [facility] [id number], [place] [address] Mar, [facility] [place] [address] [facility] [id number], [place] [address] Mar, [facility] [place] [address] [facility] [id number], [place] [address] Oct, IMMUNIZATIONS No Known Immunizations SOCIAL HISTORY [...] disc replacement L1- L5 - Dr Muhammad ([place]) Surgical History appendectomy 1983 Surgical History hysterectomy 1993 Surgical History dilatation and curettage Surgical History heart cath- Dr Shaw [address] Meza bowel and intestines 2015 Hospitalization History Hospitalization for surgery only
--- OUTSIDE RECORDS SUMMARY | 2018-04-23 11:48 | XMS REPORT ---
Author Author JOSE EMANUEL Organization [facility] Address [address] [place] [address] Care Team Providers Care Sterile Tech Name Role Phone ADELFO JOSE Unavailable PROBLEMS Type Condition ICD9-CM Code TTL23-VE Code Onset Dates Condition Status SNOMED Code Problem Generalized anxiety disorder F41.1 Active 00505570 Problem Cannabis abuse F12.10 Active 17518266 Problem Major depressive disorder, recurrent episode, moderate F33.1 Active 550756614 Problem Tobacco use Z72.0 Active 943773054 Problem Diarrhea 787.91 Active 39522509 Problem PTSD (post-traumatic stress disorder) F43.10 Active 53998625 Problem Opioid use disorder, moderate, in sustained remission F11.21 Active 49015846 Problem Alcohol use disorder, mild, 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 Active 77860091 Problem Cocaine use disorder, moderate, in sustained remission F14.21 Active 89202442 Problem Methamphetamine use disorder, severe, 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 Active 88893357 Problem Thoracic or lumbosacral neuritis or radiculitis, unspecified 724.4 Active 025150552 Problem Hematuria, unspecified 599.70 Active 85488360 Problem Spasm of muscle 728.85 Active 87827147 Problem Lumbago 724.2 Active 178317272 Problem Insomnia 780.52 Active 067796138 Problem Hyperlipidemia 272.4 Active 03387439 Problem Major depressive disorder, recurrent episode, severe, without mention of psychotic behavior 296.33 Active 97677786 Problem Prediabetes 790.29 Active 7006810 Problem Adjustment disorder with depressed mood 309.0 Active 52042975 Problem Mixed hyperlipidemia E78.2 Active 499969899 ALLERGIES No Information ENCOUNTERS Encounter Location Date Diagnosis [facility] [address] [facility] [id number], [place] [address] Jan, [facility] [address] [facility] [id number], [place] [address] Jan, [facility] [address] [address] December, [facility] [id number] [place] [address] 39997- 4746 December, Major depressive disorder, recurrent episode, moderate [...] sustained remission F10.11 and Tobacco use Z72.0 [facility] [id number] [place] [address]6710- 7955 Nov, [facility] [address] [place], [place] [id number] [place] [address] Nov, [facility] [id number] [place] [address]156- 5016 Nov, Wellness examination Z00.00 ; Encounter for immunization Z23 ; Screening for osteoporosis Z13.820 ; Screening for breast cancer Z12.31 and Left breast lump N63.20 [facility] [id number] [place] [id number] Oct, Dental examination Z01.20 [facility] [id number] [place] [address] 14052- 2250 Oct, [facility] [id number] [place] [address] 03805- 6031 Oct, [facility] [id number] [place] [address] 05840- 4733 16 Sep, 2017 [facility] [id number] [place] [address] 34384- 4491 15 Sep, 2017 [facility] [id number] [place] [address] 67812- 7928 14 Sep, 2017 Left otitis media with effusion H65.92 ; Acute suppurative otitis media of right ear without spontaneous rupture of tympanic membrane, recurrence not specified H66.001 ; Dizziness R42 and Fatigue 780.79 [facility] [id number] [place] [address] 30597- 3045 Aug, Major depressive disorder, recurrent episode, moderate [...] sustained remission F10.11 and Tobacco use Z72.0 [facility] [id number] [place] [address]54 Aug, Ingrown right big toenail L60.0 [facility] [address] [address]- [address]846 Aug, [facility] [id number] [place] [address] 12035- 3179 Aug, PTSD (post-traumatic stress disorder) F43.10 [facility] [id number] [place] [address] 63692- 8013 Aug, Major depressive disorder, recurrent episode, moderate F33.1 ; Generalized anxiety disorder F41.1 and Cannabis abuse F12.10 [facility] [id number] [place] [address] 34449- 1155 Jul, [facility] [id number] [place] [address] 85697- 3496 Jul, [facility] [facility] [id number] [place] [address] 87971- 8932 Jul, [facility] [id number] [place] [address] 95811- 2808 Jul, Major depressive disorder, recurrent episode, moderate F33.1 ; Generalized anxiety disorder F41.1 and Cannabis abuse F12.10 [facility] [id number] [place] [address] 43011- 2355 Jul, [facility] [id number] [place] [address] 807022- 0211 Jul, [facility] [id number] [place] [address] 051788- 2443 Jul, Hyperlipidemia 272.4 [facility] [id number] [place] [address] 61608- 9761 Jul, PTSD (post-traumatic stress disorder) F43.10 [facility] [id number] [place] [address] 44601- 5896 Jul, Tobacco use Z72.0 ; Alcohol use [...] anxiety disorder F41.1 and Cannabis abuse F12.10 [facility] [facility] [id number] [place] [address] 72222- 3343 Jul, [facility] [facility] [id number] [place] [address] 90819- 3009 Jul, Dysuria R30.0 and Mixed hyperlipidemia E78.2 [facility] [facility] [id number] [place] [address] 36496- 3777 Jun, Major depressive disorder, recurrent episode, moderate F33.1 ; Generalized anxiety disorder F41.1 and Cannabis abuse F12.10 [facility] [id number] [place] [address] 00551- 1359 Jun, [facility] [facility] [id number] [place] [address] 19350- 0457 Jun, Generalized anxiety disorder F41.1 ; Major depressive disorder, recurrent episode, moderate F33.1 ; PTSD (post-traumatic stress disorder) F43.10 ; Opioid use disorder, moderate, in sustained remission F11.21 ; Cannabis abuse F12.10 ; Alcohol use disorder, mild, 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 ; Methamphetamine use disorder, severe, 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 [address] [address]- 6231 Jun, Major depressive disorder, recurrent episode, moderate F33.1 ; Generalized anxiety disorder F41.1 and Cannabis abuse F12.10 [facility] [address] [id number] Mar, Dental examination Z01.20 [facility] [address] [id number] Feb, Dental examination Z01.20 [facility] [id number] [place] [address] 84275- 0792 Mar, [facility] [id number] [place] [address] 91354- 6302 Mar, [place] [address] 42032- 6373 Feb, Hyperlipidemia 272.4 and Prediabetes 790.29 [facility] [address] 96274- 7103 Feb, Fatigue 780.79 and Hyperlipidemia 272.4 [place] [address] [facility] [id number] [place] [address]- 5284 Feb, Lumbago 724.2 ; Hyperlipidemia 272.4 ; Insomnia 780.52 and Fatigue 780.79 [facility] [address] [facility] [id number] [place] [address]- 3389 Nov, [facility] [address] [facility] [id number] [place] [address]- 1999 Nov, [facility] [address] [facility] [id number] [place] [address]- 4780 Mar, [facility] [address] [facility] [id number] [place] [address]- 9274 Mar, [facility] [address] [facility] [id number] [place] [address]- 1053 Jan, [facility] [id number] [address]- 9440 Jan, [facility] [address] [facility] [id number] [place] [address]- 3890 December, [facility] [address] [id number] [address]- 7142 December, [facility] [address] [id number] [address]- 6155 Nov, [facility] [address] [id number] [address]- 9076 Nov, [facility] [address] [facility] [id number] [place] [address]- 0083 Nov, [facility] [address] [facility] [id number] [place] [address]- 0253 Nov, [facility] [address] [facility] [id number] [place] [address]- 7717 Nov, [facility] [address] [facility] [id number], [place] [address]- 2230 Nov, [facility] [place] [facility] [address] [id number] [place] [address]- 6721 31 Oct, 2013 [facility] [place] [facility] [address] [id number] [place] [address]- 4903 31 Oct, 2013 [facility] [place] [facility] [address] [id number] [place] [address]- 4580 20 Oct, 2013 [facility] [place] [facility] [address] [id number] [place] [address]- 0811 20 Oct, 2013 [facility] [place] [facility] [address] [id number] [place] [address]- 6234 Oct, [facility] [place] [facility] [address] [id number] [place] [address]- 6068 Oct, [facility] [place] [facility] [address] [id number] [place] [address]- 7199 Oct, [facility] [place] [facility] [address] [id number] [place] [address]- 8696 Oct, [facility] [place] [facility] [address] [id number] [place] [address]- 6801 Oct, [facility] [place] [facility] [address] [id number] [place] [address]- 8430 Oct, [facility] [place] [facility] [address] [id number] [place] [address]- 8306 Oct, [facility] [place] [facility] [address] [id number] [place] [address]- 2052 Oct, [facility] [place] [facility] [address] [id number] [place] [address]- 8860 Oct, [facility] [place] [facility] [address] [id number] [place] [address]- 3542 Sep, [facility] [place] [facility] [address] [id number] [place] [address]- 4570 Sep, [facility] [place] [facility] [address] [id number] [place] [address]- 0150 20 Sep, 2013 [facility] [place] [facility] [address] [id number] [place] [address]- 9156 20 Sep, 2013 [facility] [place] [facility] [address] [id number] [place] [address]- 2908 20 Sep, 2013 [facility] [place] [facility] [address] [id number] [place] [address]- 4939 20 Sep, 2013 [facility] [place] [facility] [address] [id number] [place] [address]- 6455 18 Sep, 2013 [facility] [place] [facility] [address] [id number] [place] [address]- 2596 18 Sep, 2013 [facility] [place] [facility] [address] [facility] [id number] [place] [address]- 3449 14 Sep, 2013 [facility] [place] [facility] [address] [facility] [id number] [place] [address]- 2185 14 Sep, 2013 [facility] [place] [facility] [address] [id number] [place] [address]- 6001 14 Sep, 2013 [facility] [place] [facility] [address] [facility] [id number] [place] [address]- 5770 14 Sep, 2013 [facility] [place] [facility] [address] [facility] [id number] [place] [address]- 1167 14 Sep, 2013 [facility] [place] [facility] [address] [facility] [id number] [place] [address]- 6289 14 Sep, 2013 [facility] [place] [facility] [address] [id number] [place] [address]- 2548 13 Sep, 2013 [facility] [place] [facility] [address] [id number] [place] [address]- 1926 13 Sep, 2013 [facility] [place] [facility] [address] [facility] [id number] [place] [address]- 254 12 Sep, 2013 [facility] [place] [facility] [address] [facility] [id number] [place] [address]- 0383 Sep, [facility] [place] [facility] [address] [id number] [place] [address]- 3327 Sep, [facility] [place] [facility] [address] [id number] [place] [address]- 8916 Sep, [facility] [place] [facility] [address] [facility] [id number] [place] [address]- 3483 Aug, [facility] [place] [facility] [address] [id number] [place] [address]- 4969 Aug, [facility] [place] [facility] [address] [id number] [place] 5800 Aug, [facility] [place] [facility] [address] [facility] [id number] [place] [address]- 2987 Aug, [facility] [place] [facility] [address] [facility] [id number] [place] [address]- 9827 Aug, [facility] [place] [facility] [address] [id number] [place] [address]- 0256 Jul, [facility] [place] [facility] [address] [id number] [place] [address]- 0888 Jul, [facility] [place] [facility] [address] [facility] [id number] [place] [address]- 3286 Jul, [facility] [place] [facility] [address] [facility] [id number], [place] [address]- 9161 Jul, [facility] [place] [facility] [address] [id number], [place] [address]- 5328 Jul, [facility] [place] [facility] [address] [id number] [place] [address]- 0781 Jul, [facility] [place] [facility] [address] [facility] [id number] [place] [address]- 3882 Jul, [facility] [place] [facility] [address] [facility] [id number] [place] [address]- 8537 Jul, [facility] [place] [facility] [address] [id number] [place] [address]- 0706 Jul, [facility] [address] [id number] [place] [address]- 6455 Jun, [facility] [place] [facility] [address] [id number] [place] [address]- 6017 Jun, [facility] [address] [id number] [place] [address]- 3912 Jun, [facility] [place] [facility] [address] [id number] [place] [address]- 1796 Jun, [facility] [address] [id number] [place] [address]- 2783 Jun, [facility] [place] [facility] [address] [id number] [place] [address]- 5222 Jun, [facility] [place] [facility] [address] [id number] [place] [address]- 3514 Jun, [facility] [address] [id number] [place] [address]- 8604 Jun, [facility] [place] [facility] [address] [id number] [place] [address]- 7110 Jun, [facility] [address] [facility] [id number] [place] [address]- 8104 Jun, [facility] [place] [facility] [address] [id number] [place] [address]- 2321 May, [facility] [place] [facility] [address] [id number] [place] [address]- 6526 May, [facility] [place] [facility] [address] [id number] [place] [address]- 0918 May, [facility] [place] [facility] [address] [id number] [place] [address]- 1468 May, [facility] [place] [facility] [address] [id number] [place] [address]- 7799 16 May, 2013 [facility] [place] [facility] [address] [id number] [place] [address]- 2444 May, [facility] [place] [facility] [address] [id number] [place] [address]- 4293 May, [facility] [place] [facility] [address] [id number] [place] [address]- 1647 May, [facility] [place] [facility] [address] [id number] [place] [address]- 2273 May, [facility] [place] [facility] [address] [id number] [place] [address]- 4729 Apr, [facility] [place] [facility] [address] [id number] [place] [address]- 4257 16 Apr, 2013 [facility] [place] [facility] [address] [id number] [place] [address]- 1486 Apr, [facility] [place] [facility] [address] [id number] [place] [address]- 5125 Apr, [facility] [place] [facility] [address] [id number] [place] [address]- 1912 Mar, [facility] [place] [facility] [address] [id number] [place] [address]- 6961 Mar, [facility] [place] [facility] [address] [id number] [place] [address]- 6983 Mar, [facility] [place] [facility] [address] [id number], [place] [address]- 4251 Mar, [facility] [place] [facility] [address] [id number] [place] [address]- 4860 Mar, [facility] [place] [facility] [address] [id number] [place] [address]- 3962 Mar, [facility] [place] [facility] [address] [id number], [place] [address]- 6023 Mar, [facility] [place] [facility] [address] [id number], [place] [address]- 4766 Feb, [facility] [address] [id number] [place] [address]- 5498 Feb, [facility] [place] [facility] [address] [id number] [place] [address]- 7150 Feb, [facility] [address] [id number] [place] [address]- 2234 Feb, [facility] [address] [id number] [place] [address]- 3111 Feb, [facility] [address] [id number] [place] [address]- 6849 Feb, [facility] [address] [id number] [place] [address]- 3969 Feb, [facility] [address] [id number] [place] [address]- 9555 Feb, [facility] [address] [id number] [place] [address]- 7734 Feb, [facility] [address] [id number] [place] [address]- 3926 Feb, [facility] [address] [id number] [place] [address]- 8750 Feb, [facility] [address] [id number] [place] [address]- 4783 Jan, [facility] [place] [facility] [address] [id number] [place] [address]- 9791 Jan, [facility] [place] [facility] [address] [id number] [place] [address]- 1719 December, [facility] [place] [facility] [address] [id number] [place] [address]- 8527 December, [facility] [place] [facility] [address] [id number] [place] [address]- 9307 Nov, [facility] [place] [facility] [address] [id number] [place] [address]- 7666 Nov, [facility] [address] [id number] [place] [address]- 9234 Oct, [facility] [place] [facility] [address] [id number] [place] [address]- 7824 Oct, [facility] [place] [facility] [address] [id number] [place] [address]- 4687 Oct, [facility] [place] [facility] [address] [id number] [place] [address]- 0390 Oct, [facility] [place] [facility] [address] [id number] [place] [address]- 2525 Sep, [facility] [place] [facility] [address] [id number] [place] [address]- 1202 Sep, [facility] [place] [facility] [address] [id number] [place] [address]- 1722 Sep, [facility] [place] [facility] [address] [id number] [place] [address]- 7556 Sep, [facility] [place] [facility] [address] [id number] [place] [address]- 9281 Aug, [facility] [place] [facility] [address] [id number] [place] [address]- 4127 Aug, [facility] [place] [facility] [address] [id number] [place] [address]- 5790 Jul, [facility] [place] [facility] [address] [id number] [place] [address]- 6528 Jul, [facility] [place] [facility] [address] [id number] [place] [address]- 4756 Jul, [facility] [place] [facility] [address] [id number] [place] [address]- 6739 Jul, [facility] [place] [facility] [address] [id number], [place] [address]- 7656 Jul, [facility] [place] [facility] [address] [id number] [place] [address] Jul, [facility] [place] [facility] [address] [id number] [place] [address] Jun, [facility] [place] [facility] [address] [id number] [place] [address] Jun, [facility] [place] [facility] [address] [id number], [place] [address] Jun, [facility] [place] [facility] [address] [id number] [place] [address] Jun, [facility] [place] [facility] [address] [id number] [place] [address] Jun, [facility] [place] [facility] [address] [id number] [place] [address] May, [facility] [place] [facility] [address] [id number], [place] [address] May, [facility] [place] [facility] [address] [id number], [place] [address] May, [facility] [place] [facility] [address] [id number] [place] [address]- [address] May, [facility] [place] [facility] [address] [id number], [place] [address] May, [facility] [place] [facility] [address] [id number], [place] [address]- [address] May, [facility] [place] [facility] [address] [id number] [place] [address] May, [facility] [place] [facility] [address] [facility] [id number], [place] [address] May, [facility] [place] [facility] [address] [id number], [place] [address] Mar, [facility] [place] [facility] [address] [id number] [place] [address] Mar, [facility] [address] [id number] [place] [address] Mar, [facility] [address] [id number] [place] [address] Feb, [facility] [address] [id number] [place] [address] Feb, [facility] [address] [id number] [place] [address] Feb, [facility] [address] [id number] [place] [address] 1666 Feb, [facility] [address] [id number] [place] [address] Jan, [facility] [address] [id number] [place] [address] Jan, [facility] [address] [id number] [place] [address] Jan, [facility] [address] [id number] [place] [address] December, [facility] [address] [id number] [place] [address] Nov, [facility] [place] [facility] [address] [id number] [place] [address] Oct, [facility] [address] [id number] [place] [address] Oct, [facility] [place] [facility] [address] [id number] [place] [address] Oct, [facility] [place] [facility] [address] [id number] [place] [address] Oct, [facility] [place] [facility] [address] [id number] [place] [address]- [address] Aug, [facility] [address] [id number] [place] [address]696 Aug, [facility] [place] [facility] [address] [id number] [place] [address] Aug, [facility] [place] [facility] [address] [id number] [place] [address] Aug, [facility] [place] [facility] [address] [id number] [place] [address]- 40[address] Aug, [facility] [address] [id number] [place] [address]- [address] Aug, [facility] [place] [facility] [address] [id number] [place] [address]- [address] Aug, [facility] [address] [id number] [place] [address] Aug, [facility] [address] [id number] [place] [address] Jul, [facility] [place] [facility] [address] [id number] [place] [address] Jun, [facility] [address] [id number] [place] [address]- [address] Jun, [facility] [place] [facility] [address] [id number] [place] [address] 31 Jul, 2010 [facility] [place] [facility] [address] [id number] [place] [address] Jul, [facility] [place] [facility] [address] [id number] [place] [address]- [address] Jul, [facility] [place] [facility] [address] [id number] [place] [address]- [address] 14 Jul, 2010 [facility] [place] [facility] [address] [id number] [place] [address]- [address] 14 Jul, 2010 [facility] [place] [facility] [address] [id number], [place] [address] Jun, [facility] [id number] [address] May, [facility] [id number] [address] Mar, [facility] [id number], [place] [address] Oct, [facility] [id number] [place] [id number] Aug, [facility] [id number] [place] [address] Jul, [facility] [id number] [place] [id number] Jul, [facility] [id number] [place] [address] Jun, [facility] [id number], [place] [address] Jun, [facility] [id number] [place] [address] May, [facility] [id number], [place] [address] May, [facility] [id number], [place] [address] Mar, [facility] [id number], [place] [address] Mar, [facility] [id number] [address] Oct, IMMUNIZATIONS No Known Immunizations SOCIAL HISTORY Never Assessed REASON FOR VISIT BH intake, Depression and anxiety. PLAN OF CARE Activity Details Follow Up 1 Week Reason:depression & anxiety VITAL SIGNS MEDICATIONS Medication Instructions Dosage Frequency Start Date End Date Duration Status Trazodone HCl 100 MG Orally Once a day 1 tablet at bedtime 24h Feb, 30 day(s) Active Xanax 1 mg 1 tablet by Oral route 3 times per day PRN 20 Oct, 2013 Active RESULTS No Results PROCEDURES Procedure Date Ordered Result Body Site Psych diagnostic evaluation, established patient Jun 07, 2017 INSTRUCTIONS MEDICATIONS ADMINISTERED No Known [...] disc replacement L1- L5 - Dr Muhammad ([place]) Surgical History appendectomy 1983 Surgical History hysterectomy 1993 Surgical History dilatation and curettage Surgical History heart cath- Dr Shaw [address] Meza bowel and intestines 2015 Hospitalization History Hospitalization for surgery only
--- OUTSIDE RECORDS SUMMARY | 2018-04-23 11:48 | XMS REPORT ---
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 Name Role Phone WILD RODRIGUEZ Unavailable PROBLEMS Type Condition ICD9-CM Code IGB81-AR Code Onset Dates Condition Status SNOMED Code Problem Major depressive disorder, recurrent episode, moderate F33.1 Active 123993709 Problem PTSD (post-traumatic stress disorder) F43.10 Active 23122220 Problem Cannabis abuse F12.10 Active 75850289 Problem GERD with esophagitis K21.0 Active 428008766 Problem Spasm of muscle 728.85 Active 50592607 Problem Cocaine use disorder, moderate, in sustained remission F14.21 Active 07785733 Problem Diarrhea 787.91 Active 41381741 Problem Alcohol use disorder, mild, 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 Active 25861079 Problem Tobacco use Z72.0 Active 761778503 Problem Methamphetamine use disorder, severe, 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2 Active 098682813 Problem Insomnia 780.52 Active 418716786 Problem Generalized anxiety disorder F41.1 Active 53000747 ALLERGIES No Information ENCOUNTERS Encounter Location Date Diagnosis [facility] [address] [facility] [id number], [place] [address] Jan, [facility] [address] [id number] [place] [address]82- 9493 Jan, Dysuria R30.0 and GERD with esophagitis K21.0 [facility] [address] [address] December, Major depressive disorder, recurrent episode, moderate F33.1 [facility] [address] [address] December, [place] [address] [address] December, Major depressive disorder, recurrent episode, moderate [...] sustained remission F10.11 and Tobacco use Z72.0 [place] [id number] [place] [address]18- 7544 Nov, [facility] [address] [place] [address] Nov, [place] [id number] [place] [address]- 1423 Nov, Wellness examination Z00.00 ; Encounter for immunization Z23 ; Screening for osteoporosis Z13.820 ; Screening for breast cancer Z12.31 and Left breast lump N63.20 [facility] [address] [place] [id number] Oct, Dental examination Z01.20 [facility] [address] [address] Oct, [facility] [id number] [place] [address]- 2653 Oct, [facility] [address] [address] 16 Sep, 2017 [facility] [address] [place] [address] 80291- 6146 15 Sep, 2017 [facility] [id number] [place] [address] 54359- 7969 14 Sep, 2017 Left otitis media with effusion H65.92 ; Acute suppurative otitis media of right ear without spontaneous rupture of tympanic membrane, recurrence not specified H66.001 ; Dizziness R42 and Fatigue 780.79 [facility] [id number] [place] [address] 82470- 9160 Aug, Major depressive disorder, recurrent episode, moderate [...] remission F10.11 and Tobacco use Z72.0 [facility] [address] [place] [address]4068 Aug, Ingrown right big toenail L60.0 [facility] [address] [place] [address]256- 0305 Aug, [facility] [address] [place] [address] 43890- 6291 Aug, PTSD (post-traumatic stress disorder) F43.10 [facility] [address] [place] [address] 84359- 3553 Aug, Major depressive disorder, recurrent episode, moderate F33.1 ; Generalized anxiety disorder F41.1 and Cannabis abuse F12.10 [facility] [address] [address] Jul, [facility] [id number] [place] [address] 99810- 1671 Jul, [place] [address], [place] [address] Jul, [place] [address] [id number] [place] [address] Jul, Major depressive disorder, recurrent episode, moderate F33.1 ; Generalized anxiety disorder F41.1 and Cannabis abuse F12.10 [place] [id number] [place] [address] 46667- 9644 Jul, [place] [id number] [place] [address] 46646- 9153 Jul, [place] [id number] [place] [address] 809858- 1262 Jul, Hyperlipidemia 272.4 [place] [address] [id number] [place] [address] 04744- 1349 Jul, PTSD (post-traumatic stress disorder) F43.10 [place] [address] [place] [address] 66480- 3150 Jul, Tobacco use Z72.0 ; Alcohol use [...] anxiety disorder F41.1 and Cannabis abuse F12.10 [place] [address] [place] [address] 74788- 7968 Jul, [place] [id number] [place] [address] 93549- 4149 Jul, Dysuria R30.0 and Mixed hyperlipidemia E78.2 [address] [place] [address] 39502- 8865 Jun, Major depressive disorder, recurrent episode, moderate F33.1 ; Generalized anxiety disorder F41.1 and Cannabis abuse F12.10 [facility] [address], [place] [address]- 12[address] Jun, [facility] [id number] [place] [address] 19228- 7385 Jun, Generalized anxiety disorder F41.1 ; Major depressive disorder, recurrent episode, moderate F33.1 ; PTSD (post-traumatic stress disorder) F43.10 ; Opioid use disorder, moderate, in sustained remission F11.21 ; Cannabis abuse F12.10 ; Alcohol use disorder, mild, 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 ; Methamphetamine use disorder, severe, 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 ; Cocaine use disorder, moderate, in sustained remission F14.21 and Tobacco use Z72.0 [facility] [id number] [place] [address] 63981- 5208 Jun, Major depressive disorder, recurrent episode, moderate F33.1 ; Generalized anxiety disorder F41.1 and Cannabis abuse F12.10 [facility] [id number] [place] [address] 71405- 4571 Jun, [facility] [id number] [place] [address] 16444- 5888 Jun, [facility] [id number] [place] [address] 14667- 6729 Jun, Major depressive disorder, recurrent episode, moderate F33.1 ; Generalized anxiety disorder F41.1 and Cannabis abuse F12.10 [facility] [address] [place] [address] [id number] Mar, Dental examination Z01.20 [facility] [address] [place] [address] [id number] Feb, Dental examination Z01.20 [facility] [id number] [place] [address] 39119- 2625 Mar, [facility] [address] [place] [address] 66638- 5901 Mar, [facility] [id number] [place] [address] 16679- 3346 15 Feb, 2015 Hyperlipidemia 272.4 and Prediabetes 790.29 [facility] [address] [facility] [id number], [place] [address]- 9973 Feb, Fatigue 780.79 and Hyperlipidemia 272.4 [facility] [address] [place] [id number] [address]- 7252 Feb, Lumbago 724.2 ; Hyperlipidemia 272.4 ; Insomnia 780.52 and Fatigue 780.79 [facility] [address] [facility] [id number] [place] [address]- 7282 Nov, [facility] [address] [place] [address]- 7314 Nov, [facility] [address], [place] [address]- 9484 Mar, [facility] [address], [place] [address]- 3226 Mar, [facility] [address], [place] [address]- 7692 Jan, [facility] [address] [place] [address]- 9427 Jan, [facility] [address] [place] [id number] [place] [address]- 9308 December, [facility] [address] [place] [id number] [place] [address]- 8045 December, [facility] [id number], [place] [address]- 0041 Nov, [facility] [address] [place] [id number] [place] [address]- 8236 Nov, [facility] [address] [id number] [place] [address]- 9970 Nov, [facility] [id number], [place] [address]- 0676 Nov, [facility] [place] [facility] [address] [id number] [place] [address]- 9732 Nov, [facility] [place] [facility] [address] [id number] [place] [address]- 5192 Nov, [facility] [place] [facility] [address] [id number] [place] [address]- 3090 31 Oct, 2013 [facility] [place] [facility] [address] [id number] [place] [address]- 8175 31 Oct, 2013 [facility] [place] [facility] [address] [id number] [place] [address]- 6209 Oct, [facility] [place] [facility] [address] [id number] [place] [address]- 4078 20 Oct, 2013 [facility] [place] [facility] [address] [id number] [place] [address]- 2234 Oct, [facility] [place] [facility] [address] [id number] [place] [address]- 4509 Oct, [facility] [place] [facility] [address] [id number] [place] [address]- 2210 Oct, [facility] [place] [facility] [address] [id number] [place] [address]- 2269 Oct, [facility] [place] [facility] [address] [id number] [place] [address]- 3458 Oct, [facility] [place] [facility] [address] [id number] [place] [address]- 5075 Oct, [facility] [place] [facility] [address] [id number] [place] [address]- 5463 Oct, [facility] [place] [facility] [address] [id number] [place] [address]- 8604 Oct, [facility] [place] [facility] [address] [id number] [place] [address]- 4574 Oct, [facility] [place] [facility] [address] [id number] [place] [address]- 0223 24 Sep, 2013 [facility] [place] [facility] [address] [id number] [place] [address]- 3658 24 Sep, 2013 [facility] [place] [facility] [address] [id number] [place] [address]- 0739 20 Sep, 2013 [facility] [place] [facility] [address] [facility] [id number] [place] [address]- 0596 20 Sep, 2013 [facility] [place] [facility] [address] [id number] [place] [address]- 2035 20 Sep, 2013 [facility] [place] [facility] [address] [facility] [id number] [place] [address]- 4539 20 Sep, 2013 [facility] [place] [facility] [address] [facility] [id number] [place] [address]- 0443 18 Sep, 2013 [facility] [place] [facility] [address] [place] [id number] [place] [address]- 2106 18 Sep, 2013 [facility] [place] [facility] [address] [facility] [id number] [place] [address]- 7975 14 Sep, 2013 [facility] [place] [facility] [address] [facility] [id number] [place] [address]- 9721 14 Sep, 2013 [facility] [place] [facility] [address] [place] [id number] [place] [address]- 1388 14 Sep, 2013 [facility] [place] [facility] [address] [facility] [id number] [place] [address]- 6434 14 Sep, 2013 [facility] [place] [facility] [address] [facility] [id number] [place] [address]- 7512 14 Sep, 2013 [facility] [place] [facility] [address] [facility] [id number] [place] [address]- 2411 14 Sep, 2013 [facility] [place] [facility] [address] [facility] [id number] [place] [address]- 5555 13 Sep, 2013 [facility] [place] [facility] [address] [facility] [id number] [place] [address]- 8294 Sep, [facility] [address] [id number] [place] [address]- 9062 Sep, [facility] [place] [facility] [address] [id number] [place] [address]- 5479 Sep, [facility] [place] [facility] [address] [id number] [place] [address]- 2576 Sep, [facility] [place] [facility] [address] [id number] [place] [address]- 7732 Sep, [facility] [place] [facility] [address] [id number] [place] [address]- 2870 Aug, [facility] [place] [facility] [address] [id number] [place] [address]- 4339 Aug, [facility] [address] [id number] [place] [address]- 7791 Aug, [facility] [address] [id number] [place] [address]- 0184 Aug, [facility] [address] [id number] [place] [address]- 2609 Aug, [facility] [address] [facility] [id number] [place] [address]- 8345 Jul, [facility] [place] [facility] [address] [id number] [place] [address]- 8671 Jul, [facility] [place] [facility] [address] [id number] [place] [address]- 0500 Jul, [facility] [place] [facility] [address] [id number] [place] [address]- 4887 Jul, [facility] [place] [facility] [address] [id number] [place] [address]- 7440 Jul, [facility] [place] [facility] [address] [id number] [place]285 Jul, [facility] [place] [facility] [address] [id number] [place] [address]- 2534 Jul, [facility] [place] [facility] [address] [id number] [place] [address]- 6996 Jul, [facility] [place] [facility] [address] [id number] [place] [address]- 1843 Jul, [facility] [place] [facility] [address] [id number] [place] [address]- 1564 Jun, [facility] [place] [facility] [address] [id number] [place] [address]- 5589 Jun, [facility] [place] [facility] [address] [id number] [place] [address]- 2932 Jun, [facility] [place] [facility] [address] [id number] [place] [address]- 9440 Jun, [facility] [place] [facility] [address] [id number] [place] [address]- 0942 Jun, [facility] [place] [facility] [address] [id number] [place] [address]- 5957 Jun, [facility] [place] [facility] [address] [id number] [place] [address]- 1641 Jun, [facility] [place] [facility] [address] [id number] [place] [address]- 0547 Jun, [facility] [place] [facility] [address] [id number] [place] [address]- 6875 Jun, [facility] [place] [facility] [address] [id number] [place] [address]- 2489 Jun, [facility] [place] [facility] [address] [id number] [place] [address]- 0874 May, [facility] [place] [facility] [address] [id number] [place] [address]- 5031 May, [facility] [place] [facility] [address] [id number] [place] [address]- 8743 May, [facility] [place] [facility] [address] [id number] [place] [address]- 2737 May, [facility] [place] [facility] [address] [id number] [place] [address]- 0400 May, [facility] [place] [facility] [address] [id number] [place] [address]- 4096 May, [facility] [place] [facility] [address] [id number] [place] [address]- 1704 May, [facility] [place] [facility] [address] [id number] [place] [address]- 3213 May, [facility] [place] [facility] [address] [id number] [place] [address]- 0290 May, [facility] [place] [facility] [address] [id number] [place] [address]- 7967 Apr, [facility] [place] [facility] [address] [id number] [place] [address]- 5032 16 Apr, 2013 [facility] [place] [facility] [address] [id number] [place] [address]- 9854 Apr, [facility] [place] [facility] [address] [id number] [place] [address]- 5127 Apr, [facility] [place] [facility] [address] [id number], [place] [address]- 8019 30 Mar, 2013 [facility] [place] [facility] [address] [id number], [place] [address]- 1793 Mar, [facility] [place] [facility] [address] [id number] [place] [address]- 0484 Mar, [facility] [place] [facility] [address] [id number] [place] [address]- 6472 Mar, [facility] [place] [facility] [address] [id number] [place] [address]- 3539 Mar, [facility] [place] [facility] [address] [id number] [place] [address]- 2219 Mar, [facility] [address] [id number] [place] [address]- 9658 Mar, [facility] [address] [id number] [place] [address]- 7083 Feb, [facility] [address] [id number] [place] [address]- 8029 Feb, [facility] [address] [id number] [place] [address]- 0002 Feb, [facility] [address] [id number] [place] [address]- 3919 Feb, [facility] [address] [id number] [place] [address]- 5505 Feb, [facility] [address] [id number] [place] [address]- [address] Feb, [facility] [address] [id number] [place] [address]- 5607 Feb, [facility] [address] [id number] [place] [address]- [address] Feb, [facility] [address] [id number] [place] [address]- 3306 Feb, [facility] [address] [id number] [place] [address]- 8563 Feb, [facility] [address] [id number] [place] [address]- 8461 Feb, [facility] [address] [id number] [place] [address]- 4441 Jan, [facility] [place] [facility] [address] [id number] [place] [address]- 2801 Jan, [facility] [address] [id number] [place] [address]- 9346 December, [facility] [place] [facility] [address] [id number] [place] [address]- 3447 December, [facility] [address] [id number] [place] [address]- 1684 Nov, [facility] [address] [id number] [place] [address]- 8188 Nov, [facility] [place] [facility] [address] [id number] [place] [address]- 0898 Oct, [facility] [address] [id number] [place] [address]- 2400 Oct, [facility] [place] [facility] [address] [id number] [place] [address]- 0461 Oct, [facility] [address] [id number] [place] [address]- 1068 Oct, [facility] [address] [id number] [place] [address]- 4241 Sep, [facility] [address] [id number] [place] [address]- 1254 Sep, [facility] [address] [id number] [place] [address]- 9908 Sep, [facility] [address] [id number] [place] [address]- 4168 Sep, [facility] [place] [facility] [address] [id number], [place] [address]- 8397 Aug, [facility] [place] [facility] [address] [id number] [place] [address] 254 Aug, [facility] [place] [facility] [address] [id number] [place] [address]- 7406 Jul, [facility] [place] [facility] [address] [id number] [place] [address] 2541 Jul, [facility] [place] [facility] [address] [id number] [place] [address]- 9082 Jul, [facility] [place] [facility] [address] [id number] [place] [address]- 6055 Jul, [facility] [place] [facility] [address] [id number] [place] [address]- 4601 Jul, [facility] [place] [facility] [address] [id number] [place] [address]- 9341 Jul, [facility] [place] [facility] [address] [id number] [place] [address]- 6367 Jun, [facility] [place] [facility] [address] [id number] [place] [address]- 8770 Jun, [facility] [place] [facility] [address] [id number] [place] [address]- 1287 Jun, [facility] [place] [facility] [address] [facility] [id number] [place] [address]- 2213 Jun, [facility] [place] [facility] [address] [id number] [place] [address]- 1547 Jun, [facility] [place] [facility] [address] [id number] [place] [address]- 4831 May, [facility] [place] [facility] [address] [facility] [id number] [place] [address]- 6894 May, [facility] [place] [facility] [address] [id number] [place] [address]- 6577 May, [facility] [place] [facility] [address] [id number] [place] [address] May, [facility] [place] [facility] [address] [id number] [place] [address] May, [facility] [place] [facility] [address] [facility] [id number] [place] [address] May, [facility] [place] [facility] [address] [facility] [id number] [place] [address] May, [facility] [place] [facility] [address] [id number] [place] [address] May, [facility] [place] [facility] [address] [id number] [place] [address] Mar, [facility] [place] [facility] [address] [id number] [place] [address] Mar, [facility] [place] [facility] [address] [id number] [place] [address] Mar, [facility] [place] [facility] [address] [id number] [place] [address] Feb, [facility] [place] [facility] [address] [id number] [place] [address] Feb, [facility] [place] [facility] [address] [id number] [place] [address] Feb, [facility] [place] [facility] [address] [id number] [place] [address] Feb, [facility] [place] [facility] [address] [id number] [place] [address] Jan, [facility] [place] [facility] [address] [id number] [place] [address] Jan, [facility] [place] [facility] [address] [id number] [place] [address] Jan, [facility] [place] [facility] [address] [id number] [place] [address] December, [facility] [place] [facility] [address] [id number] [place] [address] Nov, [facility] [place] [facility] [address] [id number] [place] [address] Oct, [facility] [place] [facility] [address] [id number] [place] [address] Oct, [facility] [place] [facility] [address] [id number] [place] [address] Oct, [facility] [place] [facility] [address] [id number] [place] [address] Oct, [facility] [place] [facility] [address] [id number] [place] [address] Aug, [facility] [place] [facility] [address] [id number] [place] [address] Aug, [facility] [place] [facility] [address] [id number] [place] [address] Aug, [facility] [place] [facility] [address] [id number] [place] [address] Aug, [facility] [place] [facility] [address] [id number] [place] [address] Aug, [facility] [place] [facility] [address] [id number] [place] [address] Aug, [facility] [place] [facility] [address] [id number] [place] [address] Aug, [facility] [place] [facility] [address] [id number] [place] [address] Aug, [facility] [place] [facility] [address] [id number] [place] [address] Jul, [facility] [place] [facility] [address] [id number] [place] [address] Jun, [facility] [place] [facility] [address] [id number] [place] [address] Jun, [facility] [place] [facility] [address] [id number] [place] [address] Jul, [facility] [place] [facility] [address] [id number] [place] [address] Jul, [facility] [place] [facility] [address] [id number] [place] [address] Jul, [facility] [place] [facility] [address] [id number] [place] [address] 14 Jul, 2010 [facility] [address] [id number] [place] [address] 14 Jul, 2010 [facility] [address] [id number] [place] [address] 24 Jun, 2010 [facility] [address] [id number] [place] [address] 21 May, 2010 [facility] [address] [id number] [place] [address] 11 Mar, 2010 [facility] [address] [address] [facility] [id number] [place] [address], [place] [address] Oct, [facility] [address] [facility] [id number] [place] [address] Aug, [facility] [address] [facility] [id number] [place] [address] 15 Jul, 2009 [facility] [address] [facility] [id number] [place] [address] Jul, [facility] [address] [facility] [id number] [place] [address] Jun, [facility] [address] [facility] [id number], [place] [address] Jun, [facility] [address] [facility] [id number] [place] [address] May, [facility] [address] [facility] [id number], [place] [address] May, [facility] [address] [facility] [id number] [place] [address] Mar, [facility] [address] [facility] [id number] [place] [address] 14 Mar, 2009 [facility] [address] [facility] [id number], [place] [address] 10 Oct, 2008 IMMUNIZATIONS No Known Immunizations SOCIAL HISTORY Never Assessed REASON FOR VISIT Controlled/Refill Request PLAN OF CARE VITAL SIGNS MEDICATIONS Unknown [...] disc replacement L1- L5 - Dr Muhammad ([place]) Surgical History appendectomy 1983 Surgical History hysterectomy 1993 Surgical History dilatation and curettage Surgical History heart cath- Dr Shaw [address] Meza bowel and intestines 2015 Hospitalization History Hospitalization for surgery only
--- OUTSIDE RECORDS SUMMARY | 2018-04-23 11:49 | XMS REPORT ---
Author Author JOSE EMANUEL [facility] Address [address] [place] [address] Care Team Providers Care Zinc Plater Name Role Phone JOSE EMANUEL Unavailable PROBLEMS Type Condition ICD9-CM Code [id number] Code Onset Dates Condition Status SNOMED Code Problem Major depressive disorder, recurrent episode, moderate F33.1 Active 286195945 Problem PTSD (post-traumatic stress disorder) F43.10 Active 04542111 Problem Cannabis abuse F12.10 Active 22519706 Problem GERD with esophagitis K21.0 Active 924973137 Problem Spasm of muscle 728.85 Active 12478939 Problem Cocaine use disorder, moderate, in sustained remission F14.21 Active 35086753 Problem Diarrhea 787.91 Active 45954413 Problem Alcohol use disorder, mild, 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 Active 39242218 Problem Tobacco use Z72.0 Active 108452810 Problem Methamphetamine use disorder, severe, 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2 Active 866055533 Problem Insomnia 780.52 Active 483460010 Problem Generalized anxiety disorder F41.1 Active 42689051 ALLERGIES No Information ENCOUNTERS Encounter Location Date Diagnosis [facility] [address] [facility] [id number] [place] [address] Feb, [facility] [address], [place] [address] Jan, Cocaine use disorder, moderate, in sustained [...] disorder, recurrent episode, moderate F33.1 [place] [address] [place] [address]- 3491 Jan, Dysuria R30.0 and GERD with esophagitis K21.0 [place] [id number] [place] [address]- 2715 December, Major depressive disorder, recurrent episode, moderate F33.1 [place] [id number] [place] [address] 80078- 3283 December, [place] [address] [place] [address] 91601- 2939 December, Major depressive disorder, recurrent episode, moderate [...] sustained remission F10.11 and Tobacco use Z72.0 [facility] [address] [id number] [place] [address] 06867- 6356 Nov, [facility] [address] [place] [id number] [place] [address] Nov, [facility] [address] [place] [address] 23274- 3530 Nov, Wellness examination Z00.00 ; Encounter for immunization Z23 ; Screening for osteoporosis Z13.820 ; Screening for breast cancer Z12.31 and Left breast lump N63.20 [facility] [id number] [id number] Oct, Dental examination Z01.20 [facility] [address], [place] [address] Oct, [facility] [address] [place] [address] 28560- 2432 Oct, [facility] [address] [place] [address] 52[address]- 7612 Sep, [facility] [address] [place] [address] 83672- 7180 Sep, [facility] [address] [place] [address] 60485- 9221 14 Sep, 2017 Left otitis media with effusion H65.92 ; Acute suppurative otitis media of right ear without spontaneous rupture of tympanic membrane, recurrence not specified H66.001 ; Dizziness R42 and Fatigue 780.79 [facility] [address], [place] [address] Aug, Major depressive disorder, recurrent episode, moderate [...] sustained remission F10.11 and Tobacco use Z72.0 [facility] [address], [place] [address] Aug, Ingrown right big toenail L60.0 [facility] [address], [place] [address] Aug, [facility] [address] [place] [address]26- 1573 Aug, PTSD (post-traumatic stress disorder) F43.10 [facility] [address], [place] [address] 3[address] Aug, Major depressive disorder, recurrent episode, moderate F33.1 ; Generalized anxiety disorder F41.1 and Cannabis abuse F12.10 [facility] [address], [place] [address] 4566 Jul, [facility] [id number] [place] [address] 32945- 2986 Jul, [facility] [address] [place] [address] 63551- 4456 Jul, [facility] [id number] [place] [address] 08299- 6993 Jul, Major depressive disorder, recurrent episode, moderate F33.1 ; Generalized anxiety disorder F41.1 and Cannabis abuse F12.10 [facility] [id number] [place] [address] 24072- 6630 Jul, [facility] [id number] [place] [address] 96718- 7784 Jul, [place] [id number] [place] [address] 11235- 7883 Jul, Hyperlipidemia 272.4 [facility] [address], [place] [address] 5[address] Jul, PTSD (post-traumatic stress disorder) F43.10 [facility] [address], [place] [address] 0426 Jul, Tobacco use Z72.0 ; Alcohol use [...] anxiety disorder F41.1 and Cannabis abuse F12.10 [facility] [address], [place] [address] 00[address] Jul, [facility] [id number] [place] [address] 21450- 8839 Jul, Dysuria R30.0 and Mixed hyperlipidemia E78.2 [facility] [id number] [place] [address] 47958- 5477 Jun, Major depressive disorder, recurrent episode, moderate F33.1 ; Generalized anxiety disorder F41.1 and Cannabis abuse F12.10 [facility] [address] [place] [address] 55951- 2938 Jun, [place] [address] [id number] [place] [address] 74222- 8984 Jun, Generalized anxiety disorder F41.1 ; Major depressive disorder, recurrent episode, moderate F33.1 ; PTSD (post-traumatic stress disorder) F43.10 ; Opioid use disorder, moderate, in sustained remission F11.21 ; Cannabis abuse F12.10 ; Alcohol use disorder, mild, 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 ; Methamphetamine use disorder, severe, 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 ; Cocaine use disorder, moderate, in sustained remission F14.21 and Tobacco use Z72.0 [facility] [address] [place] [address] 89974- 1958 Jun, Major depressive disorder, recurrent episode, moderate F33.1 ; Generalized anxiety disorder F41.1 and Cannabis abuse F12.10 [facility] [address] [place] [address] 58872- 9501 Jun, [facility] [address] [place] [address] 35026- 2121 Jun, [facility] [address] [place] [address] 59476- 3015 Jun, Major depressive disorder, recurrent episode, moderate F33.1 ; Generalized anxiety disorder F41.1 and Cannabis abuse F12.10 [facility] [address] [place] [id number] Mar, Dental examination Z01.20 [facility] [id number] [id number] Feb, Dental examination Z01.20 [facility] [address] [address] Mar, [facility] [address] 7179 Mar, [facility] [address] [place] [address] 88916- 5576 Feb, Hyperlipidemia 272.4 and Prediabetes 790.29 [facility] [id number] [place] [address] 31441- 1591 Feb, Fatigue 780.79 and Hyperlipidemia 272.4 [facility] [id number] [place] [address] 60128- 5529 Feb, Lumbago 724.2 ; Hyperlipidemia 272.4 ; Insomnia 780.52 and Fatigue 780.79 [facility] [address], [place] [address]- 9975 Nov, [facility] [address], [place] [address]- 3036 Nov, [facility] [address], [place] [address]- 8745 Mar, [facility] [address], [place] [address]- 7473 Mar, [facility] [address] 5[address] Jan, [facility] [address] [address]- 1995 Jan, [facility] [id number] 7544 December, [facility] [address], [place] [address]- 7995 December, [facility] [place] [facility] [address] [id number] [place] [address]- 5052 Nov, [facility] [place] [facility] [address] [id number] [place] [address] Nov, [facility] [place] [facility] [address] [id number] [place] [address]- 7853 Nov, [facility] [place] [facility] [address] [id number] [place] [address]- 2573 Nov, [facility] [place] [facility] [address] [id number] [place] [address]- 1916 Nov, [facility] [place] [facility] [address] [id number] [place] [address]- 6779 Nov, [facility] [place] [facility] [address] [id number] [place] [address]- 2515 Oct, [facility] [place] [facility] [address] [id number] [place] [address]- 1105 31 Oct, 2013 [facility] [place] [facility] [address] [id number] [place] [address]- 5458 Oct, [facility] [place] [facility] [address] [id number] [place] [address]- 0860 Oct, [facility] [place] [facility] [address] [id number] [place] [address]- 3557 Oct, [facility] [place] [facility] [address] [id number] [place] [address]- 4719 19 Oct, 2013 [facility] [place] [facility] [address] [id number] [place] [address]- 5951 Oct, [facility] [place] [facility] [address] [id number] [place] [address]- 1011 Oct, [facility] [place] [facility] [address] [id number] [place] [address]- 4633 11 Oct, 2013 [facility] [place] [facility] [address] [id number] [place] [address]- 8036 04 Oct, 2013 [facility] [place] [facility] [address] [id number] [place] [address]- 4334 Oct, [facility] [place] [facility] [address] [id number] [place] [address]- 7850 Oct, [facility] [place] [facility] [address] [id number] [place] [address]- 1845 Oct, [facility] [place] [facility] [address] [id number] [place] [address]- 0194 24 Sep, 2013 [facility] [place] [facility] [address] [id number] [place] [address]- 7033 24 Sep, 2013 [facility] [place] [facility] [address] [id number] [place] [address]- 3347 Sep, [facility] [place] [facility] [address] [id number] [place] [address]- 9851 Sep, [facility] [place] [facility] [address] [id number] [place] [address]- 3100 Sep, [facility] [place] [facility] [address] [facility] [id number] [place] [address]- 2450 Sep, [facility] [place] [facility] [address] [id number] [place] [address]- 8325 18 Sep, 2013 [facility] [place] [facility] [address] [id number] [place] [address]- 8609 18 Sep, 2013 [facility] [place] [facility] [address] [id number] [place] [address]- 6011 14 Sep, 2013 [facility] [place] [facility] [address] [id number] [place] [address]- 8761 14 Sep, 2013 [facility] [place] [facility] [address] [id number] [place] [address]- 4851 14 Sep, 2013 [facility] [place] [facility] [address] [id number] [place] [address]- 4214 14 Sep, 2013 [facility] [place] [facility] [address] [id number] [place] [address]- 9066 14 Sep, 2013 [facility] [place] [facility] [address] [id number] [place] [address]- 6536 14 Sep, 2013 [facility] [place] [facility] [address] [id number] [place] [address]- 0926 13 Sep, 2013 [facility] [place] [facility] [address] [id number] [place] [address]- 4284 Sep, [facility] [place] [facility] [address] [id number] [place] [address]- 2470 Sep, [facility] [place] [facility] [address] [id number] [place] [address]- 3816 Sep, [facility] [place] [facility] [address] [id number] [place] [address]- 2066 Sep, [facility] [place] [facility] [address] [id number] [place] [address]- 0703 Sep, [facility] [place] [facility] [address] [id number] [place] [address]- 3753 Aug, [facility] [place] [facility] [address] [id number] [place] [address]- 8668 Aug, [facility] [place] [facility] [address] [id number] [place] [address]- 5698 Aug, [facility] [place] [facility] [address] [id number] [place] [address]- 3256 Aug, [facility] [place] [facility] [address] [id number] [place] [address]- 9260 Aug, [facility] [place] [facility] [address] [id number] [place] [address]- 0605 Jul, [facility] [place] [facility] [address] [id number] [place] [address]- 8011 Jul, [facility] [address] [id number] [place] [address]- 4517 Jul, [facility] [place] [facility] [address] [id number] [place] [address]- 8087 Jul, [facility] [place] [facility] [address] [id number] [place] [address]- 2965 Jul, [facility] [place] [facility] [address] [id number] [place] [address]- 0652 Jul, [facility] [place] [facility] [address] [id number] [place] [address]- 0820 Jul, [facility] [place] [facility] [address] [id number] [place] [address]- 4499 Jul, [facility] [place] [facility] [address] [facility] [id number] [place] [address]- 8699 Jul, [facility] [place] [facility] [address] [id number], [place] [address]- 5712 Jun, [facility] [place] [facility] [address] [id number] [place] [address]- 0183 Jun, [facility] [place] [facility] [address] [id number], [place] [address]- 2206 Jun, [facility] [place] [facility] [address] [id number], [place] [address]- 5235 Jun, [facility] [place] [facility] [address] [id number], [place] [address]- 2772 Jun, [facility] [place] [facility] [address] [id number] [place] [address]- 3774 Jun, [facility] [place] [facility] [address] [id number], [place] [address]- 1402 Jun, [facility] [place] [facility] [address] [id number], [place] [address]- 0129 Jun, [facility] [place] [facility] [address] [id number] [place] [address]- 4781 Jun, [facility] [place] [facility] [address] [id number] [place] [address]- 9718 Jun, [facility] [place] [facility] [address] [id number] [place] [address]- 8767 May, [facility] [place] [facility] [address] [id number] [place] [address]- 5966 May, [facility] [place] [facility] [address] [id number] [place] [address]- 0280 May, [facility] [place] [facility] [address] [id number] [place] [address]- 6609 May, [facility] [place] [facility] [address] [id number] [place] [address]- 4238 16 May, 2013 [facility] [place] [facility] [address] [id number] [place] [address]- 1527 May, [facility] [place] [facility] [address] [id number] [place] [address]- 7363 May, [facility] [place] [facility] [address] [id number] [place] [address]- 3503 May, [facility] [place] [facility] [address] [id number] [place] [address]- 5972 May, [facility] [place] [facility] [address] [id number] [place] [address]- 0360 26 Apr, 2013 [facility] [place] [facility] [address] [id number] [place] [address]- 2541 16 Apr, 2013 [facility] [place] [facility] [address] [id number] [place] [address]- 5886 12 Apr, 2013 [facility] [place] [facility] [address] [id number] [place] 7886 06 Apr, 2013 [facility] [place] [facility] [address] [id number] [place] [address]- 0851 Mar, [facility] [place] [facility] [address] [id number] [place] [address]- 6660 Mar, [facility] [place] [facility] [address] [id number] [place] [address]- 0477 Mar, [facility] [place] [facility] [address] [id number] [place] [address]- 8052 Mar, [facility] [place] [facility] [address] [id number] [place] [address]- 5006 Mar, [facility] [place] [facility] [address] [id number] [place] [address]- 6728 Mar, [facility] [place] [facility] [address] [id number] [place] [address]- 0816 Mar, [facility] [place] [facility] [address] [id number] [place] [address]- 3416 Feb, [facility] [place] [facility] [address] [id number] [place] [address]- 6374 Feb[facility] [place] [facility] [address] [id number] [place] [address]- 5238 Feb, [facility] [place] [facility] [address] [id number] [place] [address]- 6181 Feb, [facility] [place] [facility] [address] [id number] [place] [address]- 9757 Feb, [facility] [place] [facility] [address] [id number] [place] [address]- 9416 Feb, [facility] [place] [facility] [address] [id number] [place] [address]- 7880 Feb, [facility] [place] [facility] [address] [id number] [place] [address]- 4015 Feb, [facility] [place] [facility] [address] [id number] [place] [address]- 2325 Feb, [facility] [place] [facility] [address] [id number] [place] [address]- 2194 Feb, [facility] [place] [facility] [address] [id number] [place] [address]- 3105 Feb, [facility] [place] [facility] [address] [id number] [place] [address]- 8869 Jan, [facility] [place] [facility] [address] [id number] [place] [address]- 0812 Jan, [facility] [place] [facility] [address] [id number] [place] [address]- 2817 December, [facility] [place] [facility] [address] [id number] [place] [address]- 1662 December, [facility] [place] [facility] [address] [id number] [place] [address]- 9277 Nov, [facility] [place] [facility] [address] [id number] [place] [address]- 5670 Nov, [facility] [place] [facility] [address] [id number] [place] [address]- 0957 Oct, [facility] [place] [facility] [address] [id number] [place] [address]- 6770 Oct, [facility] [place] [facility] [address] [id number] [place] [address]- 8399 Oct, [facility] [place] [facility] [address] [id number] [place] [address]- 7646 Oct, [facility] [place] [facility] [address] [id number] [place] [address]- 6496 Sep, [facility] [place] [facility] [address] [id number] [place] [address]- 4638 Sep, [facility] [place] [facility] [address] [id number] [place] [address]- 1882 Sep, [facility] [place] [facility] [address] [id number] [place] [address]- 1772 Sep, [facility] [place] [facility] [address] [id number] [place] [address]- 9941 Aug, [facility] [place] [facility] [address] [id number] [place] [address]- 2349 Aug, [facility] [place] [facility] [address] [id number] [place] [address]- 4908 Jul, [facility] [place] [facility] [address] [id number] [place] [address]- 3396 Jul, [facility] [place] [facility] [address] [id number] [place] [address] Jul, [facility] [place] [facility] [address] [id number] [place] [address] Jul, [facility] [place] [facility] [address] [id number] [place] [address] Jul, [facility] [place] [facility] [address] [id number] [place] [address] Jul, [facility] [place] [facility] [address] [id number] [place] [address] Jun, [facility] [place] [facility] [address] [id number] [place] [address] Jun, [facility] [place] [facility] [address] [id number] [place] [address] Jun, [facility] [place] [facility] [address] [id number] [place] [address] Jun, [facility] [place] [facility] [address] [id number] [place] [address] Jun, [facility] [place] [facility] [address] [id number] [place] [address] May, [facility] [place] [facility] [address] [id number] [place] [address] May, [facility] [place] [facility] [address] [id number] [place] [address] May, [facility] [place] [facility] [address] [id number] [place] [address] May, [facility] [place] [facility] [address] [id number] [place] [address] May, [facility] [place] [facility] [address] [id number] [place] [address] May, [facility] [place] [facility] [address] [id number] [place] [address] May, [facility] [place] [facility] [address] [id number] [place] [address] May, [facility] [place] [facility] [address] [id number] [place] [address] Mar, [facility] [place] [facility] [address] [id number] [place] [address] Mar, [facility] [place] [facility] [address] [id number] [place] [address] Mar, [facility] [place] [facility] [address] [id number] [place] [address] Feb, [facility] [place] [facility] [address] [id number] [place] [address] Feb, [facility] [place] [facility] [address] [id number] [place] [address] Feb, [facility] [place] [facility] [address] [id number] [address] Feb, [facility] [place] [facility] [address] [id number] [place] [address] Jan, [facility] [place] [facility] [address] [id number] [place] [address] Jan, [facility] [place] [facility] [address] [id number] [place] [address] Jan, [facility] [place] [facility] [address] [id number] [place] [address] December, [facility] [address] [id number] [place] [address] Nov, [facility] [place] [facility] [address] [id number] [place] [address] Oct, [facility] [place] [facility] [address] [id number] [place] [address] Oct, [facility] [place] [facility] [address] [id number] [place] [address] Oct, [facility] [place] [facility] [address] [id number] [place] [address] Oct, [facility] [place] [facility] [address] [id number] [place] [address] Aug, [facility] [place] [facility] [address] [id number] [place] [address] Aug, [facility] [place] [facility] [address] [id number] [place] [address] Aug, [facility] [place] [facility] [address] [id number] [place] [address] Aug, [facility] [place] [facility] [address] [id number] [place] [address] Aug, [facility] [place] [facility] [address] [id number] [place] [address] Aug, [facility] [place] [facility] [address] [id number] [place] [address] Aug, [facility] [place] [facility] [address] [id number] [place] [address] Aug, [facility] [place] [facility] [address] [id number] [place] [address] Jul, [facility] [place] [facility] [address] [id number] [place] [id number] Jun, [facility] [place] [facility] [address] [id number] [place] [address] 29 Jun, 2011 [facility] [address] [id number] [place] [address] 31 Jul, 2010 [facility] [place] [facility] [address] [id number] [place] [address] 22 Jul, 2010 [facility] [place] [facility] [address] [id number] [place] [address] 22 Jul, 2010 [facility] [place] [facility] [address] [id number] [place] [address] 14 Jul, 2010 [facility] [place] [facility] [address] [id number] [place] [address] 14 Jul, 2010 [facility] [address] [id number] [place] [address] 24 Jun, 2010 [facility] [address] [id number] [place] [address] May, [facility] [address] [id number] [place] [address] Mar, [facility] [place] [facility] [address] [id number] [place] [address] Oct, [facility] [place] [facility] [address] [id number] [place] [address] Aug, [facility] [place] [facility] [address] [id number] [place] [address] 15 Jul, 2009 [facility] [place] [facility] [address] [id number] [place] [address] Jul, [facility] [place] [facility] [address] [id number] [place] [address] Jun, [facility] [place] [facility] [address] [id number] [place] [address] Jun, [facility] [place] [facility] [address] [id number] [place] [address] May, [facility] [address] [facility] [id number] [place] [address] May, [facility] [address] [facility] [id number], [place] [address] Mar, [facility] [address] [facility] [id number] [place] [address] Mar, [facility] [address] [facility] [id number], [place] [address] Oct, IMMUNIZATIONS No Known Immunizations SOCIAL HISTORY Never Assessed REASON FOR VISIT BH f/u, Depression and anxiety. PLAN OF CARE Activity Details Follow Up 1 Week Reason:depression and anxiety VITAL SIGNS MEDICATIONS Unknown Medications RESULTS No Results PROCEDURES Procedure Date Ordered Result Body Site Psychotherapy, patient &/family, with E&M, 30 minutes, established patient Aug 14, 2017 INSTRUCTIONS MEDICATIONS ADMINISTERED No Known Medications [...] disc replacement L1- L5 - Dr Muhammad ([facility]erm[facility]) Surgical History appendectomy 1983 Surgical History hysterectomy 1993 Surgical History dilatation and curettage Surgical History heart cath- Dr Shaw [address] Meza bowel and intestines 2015 Hospitalization History Hospitalization for surgery only
--- OUTSIDE RECORDS SUMMARY | 2018-04-23 11:51 | XMS REPORT ---
Author Author WILD RODRIGUEZ [facility] Address [address] [place] [address] Care Team Providers Care Echocardiography Technologist Name Role Phone WILD RODRIGUEZ Unavailable PROBLEMS Type Condition ICD9-CM Code ABM92-IQ Code Onset Dates Condition Status SNOMED Code Problem Major depressive disorder, recurrent episode, moderate F33.1 Active 556494413 Problem PTSD (post-traumatic stress disorder) F43.10 Active 65247425 Problem Cannabis abuse F12.10 Active 07804567 Problem GERD with esophagitis K21.0 Active 049493106 Problem Spasm of muscle 728.85 Active 24870343 Problem Cocaine use disorder, moderate, in sustained remission F14.21 Active 92217854 Problem Diarrhea 787.91 Active 60803628 Problem Alcohol use disorder, mild, 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 Active 65779791 Problem Tobacco use Z72.0 Active 095148982 Problem Methamphetamine use disorder, severe, 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2 Active 504792178 Problem Insomnia 780.52 Active 014997249 Problem Generalized anxiety disorder F41.1 Active 90411895 ALLERGIES No Information ENCOUNTERS Encounter Location Date Diagnosis [facility] [address] [facility] [id number] [address] Feb, [facility] [id number] [place] [address] 26167- 9078 Jan, Cocaine use disorder, moderate, in sustained [...] Major depressive disorder, recurrent episode, moderate F33.1 [place] [id number] [place] [address] 28379- 4077 Jan, Dysuria R30.0 and GERD with esophagitis K21.0 [address] [id number] [place] [address] 32034- 1795 December, Major depressive disorder, recurrent episode, moderate F33.1 [address] [address] [id number] [place] [address] 56880- 3662 December, [place] [id number] [place] [address] 46101- 7562 December, Major depressive disorder, recurrent episode, moderate [...] sustained remission F10.11 and Tobacco use Z72.0 [place] [id number] [place] [address] 34478- 6743 Nov, [facility] [address] [place] [id number] [place] [address] Nov, [place] [id number] [place] [address] 13574- 7008 Nov, Wellness examination Z00.00 ; Encounter for immunization Z23 ; Screening for osteoporosis Z13.820 ; Screening for breast cancer Z12.31 and Left breast lump N63.20 [facility] [id number] [id number] Oct, Dental examination Z01.20 [facility] [address], [place] [address] Oct, [facility] [address], [place] [address] 9[address] Oct, [facility] [address], [place] [address] Sep, [facility] [id number] [place] [address] 44[address]- 6434 Sep, [facility] [address] [place] [address] 02804- 5682 14 Sep, 2017 Left otitis media with effusion H65.92 ; Acute suppurative otitis media of right ear without spontaneous rupture of tympanic membrane, recurrence not specified H66.001 ; Dizziness R42 and Fatigue 780.79 [facility] [address] [address] Aug, Major depressive disorder, recurrent episode, moderate [...] sustained remission F10.11 and Tobacco use Z72.0 [facility] [address] [id number] [address] Aug, Ingrown right big toenail L60.0 [facility] [address], [place] [address] Aug, [facility] [address], [place] [address] Aug, PTSD (post-traumatic stress disorder) F43.10 [facility] [address], [place] [address] Aug, Major depressive disorder, recurrent episode, moderate F33.1 ; Generalized anxiety disorder F41.1 and Cannabis abuse F12.10 [facility] [address], [place] [address] 7[address] Jul, [facility] [id number] [place] [address] 93202- 2476 Jul, [facility] [address], [place] [address] 04[address] Jul, [facility] [id number] [place] [address] 14699- 4126 Jul, Major depressive disorder, recurrent episode, moderate F33.1 ; Generalized anxiety disorder F41.1 and Cannabis abuse F12.10 [facility] [address], [place] [address] 8[address] Jul, [facility] [id number] [place] [address] 89863- 9446 Jul, [facility] [address] [place] [address] 33455- 4286 Jul, Hyperlipidemia 272.4 [facility] [address] [address] 9716 Jul, PTSD (post-traumatic stress disorder) F43.10 [facility] [address] [address]- 5529 14 Jul, 2017 Tobacco use Z72.0 ; [...] anxiety disorder F41.1 and Cannabis abuse F12.10 [facility] [address], [place] [address]- 79[address] Jul, [facility] [id number] [place] [address] 89371- 9166 Jul, Dysuria R30.0 and Mixed hyperlipidemia E78.2 [facility] [address] [place] [address] 34099- 4314 Jun, Major depressive disorder, recurrent episode, moderate F33.1 ; Generalized anxiety disorder F41.1 and Cannabis abuse F12.10 [facility] [address] [place] [address] 12857- 5835 Jun, [place] [id number] [place] [address] 14948- 4865 Jun, Generalized anxiety disorder F41.1 ; Major depressive disorder, recurrent episode, moderate F33.1 ; PTSD (post-traumatic stress disorder) F43.10 ; Opioid use disorder, moderate, in sustained remission F11.21 ; Cannabis abuse F12.10 ; Alcohol use disorder, mild, 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 ; Methamphetamine use disorder, severe, 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 ; Cocaine use disorder, moderate, in sustained remission F14.21 and Tobacco use Z72.0 [facility] [address] [place] [address] 92561- 8099 Jun, Major depressive disorder, recurrent episode, moderate F33.1 ; Generalized anxiety disorder F41.1 and Cannabis abuse F12.10 [facility] [address], [place] [address]- 6834 Jun, [facility] [address], [place] [address]- 3184 Jun, [facility] [address] [place] [address] 39971- 1012 Jun, Major depressive disorder, recurrent episode, moderate F33.1 ; Generalized anxiety disorder F41.1 and Cannabis abuse F12.10 [facility] [address] [place] [id number] Mar, Dental examination Z01.20 [facility] [address] [id number] [address] Feb, Dental examination Z01.20 [facility] [address] [address] Mar, [facility] [address] [place] [address] 73832- 7090 Mar, [facility] [address] [place] [address] 80602- 6280 Feb, Hyperlipidemia 272.4 and Prediabetes 790.29 [facility] [id number] [place] [address] 20598- 9384 Feb, Fatigue 780.79 and Hyperlipidemia 272.4 [facility] [id number] [place] [address] 13225- 1355 Feb, Lumbago 724.2 ; Hyperlipidemia 272.4 ; Insomnia 780.52 and Fatigue 780.79 [facility] [address], [place] [address]- 5197 Nov, [facility] [id number] [place] [address] 51502- 8168 Nov, [facility] [address], [place] [address]- 7807 Mar, [facility] [address], [place] [address]- 9141 Mar, [facility] [address] 4118 Jan, [facility] [id number] [place] [address] 38253- 2768 Jan, [facility] [address], [place] [address]- 7392 December, [facility] [id number] [place] [address] 49328- 6080 December, [facility] [place] [facility] [address] [id number] [place] [address]- 7079 Nov, [facility] [place] [facility] [address] [id number] [place] 4449 Nov, [facility] [place] [facility] [address] [id number] [place] [address]- 1164 Nov, [facility] [place] [facility] [address] [id number] [place] [address]- 6832 Nov, [facility] [place] [facility] [address] [id number] [place] [address]- 0164 Nov, [facility] [place] [facility] [address] [id number] [place] [address]- 1001 Nov, [facility] [place] [facility] [address] [id number] [place] [address]- 5951 Oct, [facility] [place] [facility] [address] [id number] [place] [address]- 6698 31 Oct, 2013 [facility] [place] [facility] [address] [id number] [place] [address]- 0170 Oct, [facility] [place] [facility] [address] [id number] [place] [address]- 4080 Oct, [facility] [place] [facility] [address] [id number] [place] [address]- 2731 Oct, [facility] [place] [facility] [address] [id number] [place] [address]- 3968 19 Oct, 2013 [facility] [place] [facility] [address] [id number] [place] [address]- 9317 Oct, [facility] [place] [facility] [address] [id number] [place] [address]- 6857 Oct, [facility] [place] [facility] [address] [id number] [place] [address]- 8611 Oct, [facility] [place] [facility] [address] [id number] [place] [address]- 2496 04 Oct, 2013 [facility] [place] [facility] [address] [id number] [place] [address]- 4105 Oct, [facility] [place] [facility] [address] [id number] [place] [address]- 9819 Oct, [facility] [place] [facility] [address] [id number] [place] [address]- 4034 Oct, [facility] [place] [facility] [address] [id number] [place] [address]- 2483 24 Sep, 2013 [facility] [place] [facility] [address] [id number] [place] [address]- 4686 Sep, [facility] [place] [facility] [address] [facility] [id number] [place] [address]- 5483 Sep, [facility] [place] [facility] [address] [id number] [place] [address]- 6965 Sep, [facility] [place] [facility] [address] [id number] [place] [address]- 1338 Sep, [facility] [place] [facility] [address] [facility] [id number] [place] [address]- 8190 Sep, [facility] [place] [facility] [address] [facility] [id number] [place] [address]- 8085 18 Sep, 2013 [facility] [place] [facility] [address] [facility] [id number] [place] [address]- 2916 18 Sep, 2013 [facility] [place] [facility] [address] [facility] [id number] [place] [address]- 4589 14 Sep, 2013 [facility] [place] [facility] [address] [id number] [place] [address]- 9206 14 Sep, 2013 [facility] [place] [facility] [address] [facility] [id number] [place] [address]- 7891 14 Sep, 2013 [facility] [place] [facility] [address] [facility] [id number] [place] [address]- 0814 14 Sep, 2013 [facility] [place] [facility] [address] [id number] [place] [address]- 8776 14 Sep, 2013 [facility] [place] [facility] [address] [id number] [place] [address]- 6926 14 Sep, 2013 [facility] [place] [facility] [address] [id number] [place] [address]- 5226 Sep, [facility] [place] [facility] [address] [id number] [place] [address]- 3438 Sep, [facility] [place] [facility] [address] [id number] [place] [address]- 3961 Sep, [facility] [place] [facility] [address] [id number] [place] [address]- 9141 Sep, [facility] [place] [facility] [address] [id number] [place] [address]- 5028 Sep, [facility] [place] [facility] [address] [id number] [place] [address]- 1851 Sep, [facility] [place] [facility] [address] [id number] [place] [address]- 6308 Aug, [facility] [place] [facility] [address] [id number] [place] [address]- 8819 Aug, [facility] [place] [facility] [address] [id number] [place] [address]- 4878 Aug, [facility] [place] [facility] [address] [id number] [place] [address]- 3316 Aug, [facility] [place] [facility] [address] [id number] [place] [address]- 1637 Aug, [facility] [place] [facility] [address] [id number] [place] [address]- 7589 Jul, [facility] [place] [facility] [address] [id number] [place] [address]- 8030 Jul, [facility] [place] [facility] [address] [id number] [place] [address]- 0630 Jul, [facility] [place] [facility] [address] [id number] [place] [address]- 7846 Jul, [facility] [place] [facility] [address] [id number] [place] 8223 Jul, [facility] [place] [facility] [address] [id number] [place] [address]- 1293 Jul, [facility] [place] [facility] [address] [id number] [place] [address]- 8398 Jul, [facility] [place] [facility] [address] [id number] [place] [address]- 3650 Jul, [facility] [place] [facility] [address] [id number] [place] [address]- 0680 Jul, [facility] [place] [facility] [address] [id number], [place] [address]- 8680 Jun, [facility] [place] [facility] [address] [id number], [place] [address]- 4990 Jun, [facility] [place] [facility] [address] [id number], [place] [address]- 7964 Jun, [facility] [place] [facility] [address] [id number], [place] [address]- 9916 Jun, [facility] [place] [facility] [address] [id number], [place] [address]- 1262 Jun, [facility] [place] [facility] [address] [id number], [place] [address]- 6313 Jun, [facility] [place] [facility] [address] [id number], [place] [address]- 5971 Jun, [facility] [place] [facility] [address] [facility] [id number], [place] [address]- 1537 Jun, [facility] [place] [facility] [address] [id number], [place] [address]- 7346 Jun, [facility] [place] [facility] [address] [id number] [place] [address]- 6951 Jun, [facility] [place] [facility] [address] [id number] [place] [address]- 9697 May, [facility] [place] [facility] [address] [id number] [place] [address]- 0231 May, [facility] [place] [facility] [address] [id number] [place] [address]- 5712 May, [facility] [place] [facility] [address] [id number] [place] [address]- 0574 May, [facility] [place] [facility] [address] [id number] [place] [address]- 3850 May, [facility] [place] [facility] [address] [id number], [place] [address]- 8593 May, [facility] [place] [facility] [address] [id number] [place] [address]- 5778 May, [facility] [place] [facility] [address] [id number] [place] [address]- 4973 May, [facility] [place] [facility] [address] [id number] [place] [address]- 9592 May, [facility] [place] [facility] [address] [id number], [place] [address]- 4333 26 Apr, 2013 [facility] [place] [facility] [address] [id number], [place] [address]- 9763 16 Apr, 2013 [facility] [place] [facility] [address] [id number] [place] [address]- 5467 12 Apr, 2013 [facility] [place] [facility] [address] [facility] [id number]- 3100 06 Apr, 2013 [facility] [place] [facility] [address] [id number] [place] [address]- 6179 Mar, [facility] [place] [facility] [address] [id number] [place] [address]- 9760 Mar, [facility] [place] [facility] [address] [id number] [place] [address]- 2872 Mar, [facility] [place] [facility] [address] [id number] [place] [address]- 6736 Mar, [facility] [place] [facility] [address] [id number] [place] [address]- 7884 Mar, [facility] [place] [facility] [address] [id number] [place] [address]- 3584 Mar, [facility] [place] [facility] [address] [id number] [place] [address]- 0638 Mar, [facility] [place] [facility] [address] [id number] [place] [address]- 2934 Feb, [facility] [place] [facility] [address] [id number] [place] [address]- 5863 Feb, [facility] [place] [facility] [address] [id number] [place] [address]- 8922 Feb, [facility] [place] [facility] [address] [id number] [place] [address]- 5533 Feb, [facility] [place] [facility] [address] [id number] [place] [address]- 3968 Feb, [facility] [place] [facility] [address] [id number] [place] [address]- 8347 Feb, [facility] [place] [facility] [address] [id number] [place] [address]- 2545 Feb, [facility] [place] [facility] [address] [id number] [place] [address]- 3901 Feb, [facility] [place] [facility] [address] [id number] [place] [address] 2548 Feb, [facility] [place] [facility] [address] [id number] [place] [address]- 8193 Feb, [facility] [address] [id number] [place] [address]- 4074 Feb, [facility] [place] [facility] [address] [id number] [place] [address]- 1567 Jan, [facility] [place] [facility] [address] [id number] [place] [address]- 8331 Jan, [facility] [place] [facility] [address] [id number] [place] [address]- 2160 December, [facility] [place] [facility] [address] [id number] [place] [address]- 9588 December, [facility] [place] [facility] [address] [id number] [place] [address]- 3465 Nov, [facility] [place] [facility] [address] [id number] [place] [address]- 0240 Nov, [facility] [place] [facility] [address] [id number] [place] [address]- 9860 Oct, [facility] [place] [facility] [address] [id number] [place] [address]- 7690 Oct, [facility] [place] [facility] [address] [id number] [place] [address]- 2464 Oct, [facility] [place] [facility] [address] [id number] [place] [address]- 0904 Oct, [facility] [place] [facility] [address] [id number] [place] [address]- 4439 Sep, [facility] [place] [facility] [address] [id number] [place] [address]- 4653 Sep, [facility] [place] [facility] [address] [id number] [place] [address]- 0440 Sep, [facility] [place] [facility] [address] [id number] [place] [address]- 6896 Sep, [facility] [place] [facility] [address] [id number] [place] [address]- 0229 Aug, [facility] [address] [id number] [place] [address]- 7643 Aug, [facility] [place] [facility] [address] [id number] [place] [address]- 1838 Jul, [facility] [address] [id number] [place] [address]- 3701 Jul, [facility] [address] [id number] [place] [address]- 4470 Jul, [facility] [id number] [place] [address], [place] [address]- 3655 Jul, [facility] [address] [id number] [place] [address]- 6723 Jul, [facility] [address] [id number] [place] [address]- 9942 Jul, [facility] [address] [id number] [place] [address]- 2453 Jun, [facility] [place] [facility] [address] [id number] [place] [address]- 6793 Jun, [facility] [address] [id number] [place] [address]- 8490 Jun, [facility] [place] [facility] [address] [id number] [place] [address]- 6234 Jun, [facility] [place] [facility] [address] [id number] [place] [address]- 1031 Jun, [facility] [place] [facility] [address] [id number] [place] [address]- 7073 May, [facility] [place] [facility] [address] [id number] [place] [address]- 0306 May, [facility] [place] [facility] [address] [id number] [place] [address]- 5710 May, [facility] [place] [facility] [address] [id number] [place] [address]- 5289 May, [facility] [place] [facility] [address] [id number] [place] [address]- 0951 May, [facility] [place] [facility] [address] [id number] [place] [address] May, [facility] [place] [facility] [address] [id number] [place] [address] May, [facility] [place] [facility] [address] [id number] [place] [address] May, [facility] [place] [facility] [address] [id number] [place] [address] Mar, [facility] [place] [facility] [address] [id number] [place] [address] Mar, [facility] [place] [facility] [address] [id number] [place] [address] Mar, [facility] [place] [facility] [address] [id number] [place] [address] Feb, [facility] [place] [facility] [address] [id number], [place] [address] Feb, [facility] [place] [facility] [address] [id number], [place] [address] Feb, [facility] [place] [facility] [address] [id number], [place] [address] Feb, [facility] [place] [facility] [address] [id number] [place] [address] Jan, [facility] [place] [facility] [address] [id number] [place] [address] Jan, [facility] [place] [facility] [address] [id number], [place] [address] Jan, [facility] [place] [facility] [address] [id number], [place] [address] December, [facility] [address] [id number] [place] [address] Nov, [facility] [place] [facility] [address] [id number] [place] [address] Oct, [facility] [place] [facility] [address] [id number] [place] [address] Oct, [facility] [place] [facility] [address] [id number] [place] [address] Oct, [facility] [address] [id number] [place] [address] Oct, [facility] [place] [facility] [address] [id number] [place] [address] Aug, [facility] [address] [id number] [place] [address] Aug, [facility] [place] [facility] [address] [id number] [place] [address] Aug, [facility] [address] [id number] [place] [address] Aug, [facility] [place] [facility] [address] [id number] [place] [address] Aug, [facility] [address] [id number] [place] [address] Aug, [facility] [place] [facility] [address] [id number], [place] [address] Aug, [facility] [place] [facility] [address] [id number] [place] [address] Aug, [facility] [place] [facility] [address] [facility] [id number] [place] [address] Jul, [facility] [place] [facility] [address] [id number] [place] [address] Jun, [facility] [place] [facility] [address] [id number] [place] [address] 29 Jun, 2011 [facility] [place] [facility] [address] [id number] [place] [address] 31 Jul, 2010 [facility] [place] [facility] [address] [id number] [place] [address]46 22 Jul, 2010 [facility] [place] [facility] [address] [id number] [place] [address] 2546 22 Jul, 2010 [facility] [place] [facility] [address] [id number] [place] [address] 14 Jul, 2010 [facility] [place] [facility] [address] [id number] [place] [address] 14 Jul, 2010 [facility] [place] [facility] [address] [id number] [place] [address]- [address] 24 Jun, 2010 [facility] [place] [facility] [address] [id number] [place] [address] May, [facility] [place] [facility] [address] [id number] [place] [address] Mar, [facility] [place] [facility] [address] [id number] [place] [address] Oct, [facility] [place] [facility] [address] [id number] [place] [address] Aug, [facility] [place] [facility] [address] [id number] [place] [address] 15 Jul, 2009 [facility] [place] [facility] [address] [id number] [place] [address] Jul, [facility] [place] [facility] [address] [id number] [place] [address]- [address] 06 Jun, 2009 [facility] [place] [facility] [address] [id number] [place] [address] Jun, [facility] [place] [facility] [address] [id number] [place] [address] May, [facility] [address] [facility] [id number], [place] [address] May, [facility] [address] [facility] [id number], [place] [address] Mar, [facility] [address] [facility] [id number], [place] [address] Mar, [facility] [address] [facility] [id number] [address] Oct, IMMUNIZATIONS No Known Immunizations SOCIAL HISTORY Never Assessed REASON FOR VISIT PA for Zetia (Ezetimibe) PLAN OF CARE VITAL SIGNS MEDICATIONS Medication Instructions Dosage Frequency Start Date End Date Duration Status Fenofibrate 48 MG Orally Once a day 1 tablet 24h Jul, 30 day(s ) Active RESULTS No Results PROCEDURES No Known [...] disc replacement L1- L5 - Dr Muhammad ([place]) Surgical History appendectomy 1983 Surgical History hysterectomy 1993 Surgical History dilatation and curettage Surgical History heart cath- Dr Shaw [address] Meza bowel and intestines 2015 Hospitalization History Hospitalization for surgery only
--- OUTSIDE RECORDS SUMMARY | 2018-04-23 11:52 | XMS REPORT ---
Author Author JOSE EMANUEL [facility] Address [address] [place] [address] Care Team Providers Care Compensation Agent Name Role Phone JOSE EMANUEL Unavailable PROBLEMS Type Condition ICD9-CM Code VYX14-RI Code Onset Dates Condition Status SNOMED Code Problem Major depressive disorder, recurrent episode, moderate F33.1 Active 838993587 Problem PTSD (post-traumatic stress disorder) F43.10 Active 93100023 Problem Cannabis abuse F12.10 Active 63272226 Problem GERD with esophagitis K21.0 Active 709355953 Problem Spasm of muscle 728.85 Active 76179509 Problem Cocaine use disorder, moderate, in sustained remission F14.21 Active 57972130 Problem Diarrhea 787.91 Active 16617663 Problem Alcohol use disorder, mild, 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 Active 01511398 Problem Tobacco use Z72.0 Active 222787359 Problem Methamphetamine use disorder, severe, 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2 Active 934846343 Problem Insomnia 780.52 Active 745362685 Problem Generalized anxiety disorder F41.1 Active 25719913 ALLERGIES No Information ENCOUNTERS Encounter Location Date Diagnosis [facility] [address] [facility] [id number] [place] [address] Feb, [facility] [address] [address] Jan, Cocaine use disorder, moderate, in sustained [...] Major depressive disorder, recurrent episode, moderate F33.1 [place] [id number] [place] [address] 21451- 9423 Jan, Dysuria R30.0 and GERD with esophagitis K21.0 [place] [id number] [place] [address] 55828- 9183 December, Major depressive disorder, recurrent episode, moderate F33.1 [place] [id number] [place] [address] 13764- 8066 December, [place] [id number] [place] [address] 93445- 5430 December, Major depressive disorder, recurrent episode, moderate [...] sustained remission F10.11 and Tobacco use Z72.0 [facility] [address] [id number] [place] [address] 99273- 3625 Nov, [facility] [address] [place] [id number] [place] [address] Nov, [facility] [id number] [place] [address] 25543- 7789 Nov, Wellness examination Z00.00 ; Encounter for immunization Z23 ; Screening for osteoporosis Z13.820 ; Screening for breast cancer Z12.31 and Left breast lump N63.20 [facility] [id number] [id number] Oct, Dental examination Z01.20 [facility] [address] [address] Oct, [facility] [id number] [place] [address] 83650- 2287 Oct, [facility] [id number] [place] [address] 04692- 4668 Sep, [facility] [id number] [place] [address] 18596- 6516 Sep, [facility] [id number] [place] [address] 06510- 0[address] 14 Sep, 2017 Left otitis media with effusion H65.92 ; Acute suppurative otitis media of right ear without spontaneous rupture of tympanic membrane, recurrence not specified H66.001 ; Dizziness R42 and Fatigue 780.79 [facility] [address] [address] Aug, Major depressive disorder, recurrent episode, moderate [...] and Tobacco use Z72.[address] [facility] [address] [address] Aug, Ingrown right big toenail L60.0 [facility] [address] [address] Aug, [facility] [id number] [place] [address] 04761- 9012 Aug, PTSD (post-traumatic stress disorder) F43.10 [facility] [address] [address] Aug, Major depressive disorder, recurrent episode, moderate F33.1 ; Generalized anxiety disorder F41.1 and Cannabis abuse F12.10 [facility] [address] [address] 25[address] Jul, [facility] [address] [id number] [place] [address] 00010- 7696 Jul, [facility] [id number] [place] [address] 07713- 6926 Jul, [facility] [address] [id number] [place] [address] 96510- 0064 Jul, Major depressive disorder, recurrent episode, moderate F33.1 ; Generalized anxiety disorder F41.1 and Cannabis abuse F12.10 [facility] [id number] [place] [address] 41440- 1770 Jul, [facility] [id number] [place] [address] 16430- 7186 Jul, [place] [address] [address] [id number] [place] [address] 73170- 5518 Jul, Hyperlipidemia 272.4 [facility] [address] [address] 3[address] Jul, PTSD (post-traumatic stress disorder) F43.10 [facility] [address] [address] 39[address] Jul, Tobacco use Z72.0 ; Alcohol use [...] anxiety disorder F41.1 and Cannabis abuse F12.10 [facility] [address] [address] 1452 Jul, [facility] [id number] [place] [address] 22140- 9462 Jul, Dysuria R30.0 and Mixed hyperlipidemia E78.2 [facility] [id number] [place] [address] 82395- 2816 Jun, Major depressive disorder, recurrent episode, moderate F33.1 ; Generalized anxiety disorder F41.1 and Cannabis abuse F12.10 [facility] [id number] [place] [address] 66914- 6464 Jun, [place] [address] [id number] [place] [address] 39352- 5964 Jun, Generalized anxiety disorder F41.1 ; Major depressive disorder, recurrent episode, moderate F33.1 ; PTSD (post-traumatic stress disorder) F43.10 ; Opioid use disorder, moderate, in sustained remission F11.21 ; Cannabis abuse F12.10 ; Alcohol use disorder, mild, 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 ; Methamphetamine use disorder, severe, 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 ; Cocaine use disorder, moderate, in sustained remission F14.21 and Tobacco use Z72.0 [facility] [id number] [place] [address] 66470- 2694 Jun, Major depressive disorder, recurrent episode, moderate F33.1 ; Generalized anxiety disorder F41.1 and Cannabis abuse F12.10 [facility] [id number] [place] [address] 19663- 4495 Jun, [facility] [id number] [place] [address] 09208- 1400 Jun, [facility] [id number] [place] [address] 15286- 1589 Jun, Major depressive disorder, recurrent episode, moderate F33.1 ; Generalized anxiety disorder F41.1 and Cannabis abuse F12.10 [facility] [id number] [place] [id number] Mar, Dental examination Z01.20 [facility] [id number] [address] Feb, Dental examination Z01.20 [facility] [address] [address] Mar, [facility] [address] [address] Mar, [facility] [id number] [place] [address] 33499- 5300 Feb, Hyperlipidemia 272.4 and Prediabetes 790.29 [facility] [id number] [place] [address] 22709- 8786 Feb, Fatigue 780.79 and Hyperlipidemia 272.4 [facility] [id number] [place] [address] 08680- 8376 Feb, Lumbago 724.2 ; Hyperlipidemia 272.4 ; Insomnia 780.52 and Fatigue 780.79 [facility] [address] [address]- 8147 Nov, [facility] [address] [address]- 5373 Nov, [facility] [address] [address]- 9355 Mar, [facility] [address] [address]- 8096 Mar, [facility] [address] [address] Jan, [facility] [address] [address]858 Jan, [facility] [id number] [address] December, [facility] [address] [address]- 6880 December, [facility] [place] [facility] [address] [id number] [place] [address]- 4602 Nov, [facility] [place] [facility] [address] [id number] [place] 6399 Nov, [facility] [place] [facility] [address] [id number] [place] [address]- 9267 Nov, [facility] [place] [facility] [address] [id number] [place] [address]- 4060 Nov, [facility] [place] [facility] [address] [id number] [place] [address]- 1216 Nov, [facility] [place] [facility] [address] [id number] [place] [address]- 1995 Nov, [facility] [place] [facility] [address] [id number] [place] [address]- 3605 Oct, [facility] [place] [facility] [address] [id number] [place] [address]- 0357 31 Oct, 2013 [facility] [place] [facility] [address] [id number] [place] [address]- 0750 Oct, [facility] [place] [facility] [address] [id number] [place] [address]- 9616 Oct, [facility] [place] [facility] [address] [id number] [place] [address]- 5659 Oct, [facility] [place] [facility] [address] [id number] [place] [address]- 0173 19 Oct, 2013 [facility] [place] [facility] [address] [id number] [place] [address]- 2858 Oct, [facility] [place] [facility] [address] [id number] [place] [address]- 6339 Oct, [facility] [place] [facility] [address] [id number] [place] [address]- 5591 11 Oct, 2013 [facility] [place] [facility] [address] [id number] [place] [address]- 5650 04 Oct, 2013 [facility] [place] [facility] [address] [id number] [place] [address]- 3581 Oct, [facility] [place] [facility] [address] [id number] [place] [address]- 0615 Oct, [facility] [place] [facility] [address] [id number] [place] [address]- 5056 Oct, [facility] [place] [facility] [address] [id number] [place] [address]- 5695 24 Sep, 2013 [facility] [place] [facility] [address] [id number] [place] [address]- 4018 24 Sep, 2013 [facility] [place] [facility] [address] [id number] [place] [address]- 5902 Sep, [facility] [place] [facility] [address] [id number] [place] [address]- 8839 Sep, [facility] [place] [facility] [address] [id number] [place] [address]- 3070 Sep, [facility] [place] [facility] [address] [facility] [id number] [place] [address]- 5625 Sep, [facility] [place] [facility] [address] [id number] [place] [address]- 2584 18 Sep, 2013 [facility] [place] [facility] [address] [id number] [place] [address]- 2069 18 Sep, 2013 [facility] [place] [facility] [address] [id number] [place] [address]- 1752 14 Sep, 2013 [facility] [place] [facility] [address] [id number] [place] [address]- 8797 14 Sep, 2013 [facility] [place] [facility] [address] [id number] [place] [address]- 4785 14 Sep, 2013 [facility] [place] [facility] [address] [id number] [place] [address]- 5738 14 Sep, 2013 [facility] [place] [facility] [address] [id number] [place] [address]- 4146 14 Sep, 2013 [facility] [place] [facility] [address] [id number] [place] [address]- 5576 14 Sep, 2013 [facility] [place] [facility] [address] [id number] [place] [address]- 2716 13 Sep, 2013 [facility] [place] [facility] [address] [id number] [place] [address]- 4411 Sep, [facility] [place] [facility] [address] [id number] [place] [address]- 2870 Sep, [facility] [place] [facility] [address] [id number] [place] [address]- 0077 Sep, [facility] [place] [facility] [address] [id number] [place] [address]- 8475 Sep, [facility] [place] [facility] [address] [id number] [place] [address]- 5702 Sep, [facility] [place] [facility] [address] [id number] [place] [address]- 2699 Aug, [facility] [place] [facility] [address] [id number] [place] [address]- 2997 Aug, [facility] [place] [facility] [address] [id number] [place] [address]- 8264 Aug, [facility] [place] [facility] [address] [id number] [place] [address]- 5847 Aug, [facility] [place] [facility] [address] [id number] [place] [address]- 0231 Aug, [facility] [place] [facility] [address] [id number] [place] [address]- 4842 Jul, [facility] [place] [facility] [address] [id number] [place] [address]- 7231 Jul, [facility] [address] [id number] [place] [address]- 2610 Jul, [facility] [place] [facility] [address] [id number] [place] [address]- 6975 Jul, [facility] [place] [facility] [address] [id number] [place] [address]- 9711 Jul, [facility] [place] [facility] [address] [id number] [place] [address]- 1869 Jul, [facility] [place] [facility] [address] [id number] [place] [address]- 6157 Jul, [facility] [place] [facility] [address] [id number] [place] [address]- 5540 Jul, [facility] [place] [facility] [address] [facility] [id number] [place] [address]- 2575 Jul, [facility] [place] [facility] [address] [id number] [place] [address]- 0371 Jun, [facility] [place] [facility] [address] [id number] [place] [address]- 4734 Jun, [facility] [place] [facility] [address] [id number] [place] [address]- 7026 Jun, [facility] [place] [facility] [address] [id number] [place] [address]- 3075 Jun, [facility] [place] [facility] [address] [id number] [place] [address]- 1200 Jun, [facility] [place] [facility] [address] [id number] [place] [address]- 3456 Jun, [facility] [place] [facility] [address] [id number] [place] [address]- 6712 Jun, [facility] [place] [facility] [address] [id number] [place] [address]- 0209 Jun, [facility] [place] [facility] [address] [id number] [place] [address]- 9451 Jun, [facility] [place] [facility] [address] [id number] [place] [address]- 5875 Jun, [facility] [place] [facility] [address] [id number] [place] [address]- 7590 May, [facility] [place] [facility] [address] [id number] [place] [address]- 9828 May, [facility] [place] [facility] [address] [id number] [place] [address]- 1359 May, [facility] [place] [facility] [address] [id number] [place] [address]- 3717 May, [facility] [place] [facility] [address] [id number] [place] [address]- 0244 16 May, 2013 [facility] [place] [facility] [address] [id number] [place] [address]- 9085 May, [facility] [place] [facility] [address] [id number] [place] [address]- 3712 May, [facility] [place] [facility] [address] [id number] [place] [address]- 7559 May, [facility] [place] [facility] [address] [id number] [place] [address]- 3822 May, [facility] [place] [facility] [address] [id number] [place] [address]- 2425 26 Apr, 2013 [facility] [place] [facility] [address] [id number] [place] [address]- 2548 16 Apr, 2013 [facility] [place] [facility] [address] [id number] [place] [address]- 2609 12 Apr, 2013 [facility] [place] [facility] [address] [id number] [place] 0448 06 Apr, 2013 [facility] [place] [facility] [address] [id number] [place] [address]- 6954 Mar, [facility] [place] [facility] [address] [id number] [place] [address]- 7401 Mar, [facility] [place] [facility] [address] [id number] [place] [address]- 6764 Mar, [facility] [place] [facility] [address] [id number] [place] [address]- 4559 Mar, [facility] [place] [facility] [address] [id number] [place] [address]- 0351 Mar, [facility] [place] [facility] [address] [id number] [place] [address]- 8640 Mar, [facility] [place] [facility] [address] [id number] [place] [address]- 9718 Mar, [facility] [place] [facility] [address] [id number] [place] [address]- 2710 Feb, [facility] [place] [facility] [address] [id number] [place] [address]- 0622 Feb, [facility] [place] [facility] [address] [id number] [place] [address]- 4911 Feb, [facility] [place] [facility] [address] [id number] [place] [address]- 4347 Feb, [facility] [place] [facility] [address] [id number] [place] [address]- 0827 Feb, [facility] [place] [facility] [address] [id number] [place] [address]- 4399 Feb, [facility] [place] [facility] [address] [id number] [place] [address]- 7980 Feb, [facility] [place] [facility] [address] [id number] [place] [address]- 2922 Feb, [facility] [place] [facility] [address] [id number] [place] [address]- 0862 Feb, [facility] [place] [facility] [address] [id number] [place] [address]- 0697 Feb, [facility] [place] [facility] [address] [id number] [place] [address]- 7026 Feb, [facility] [place] [facility] [address] [id number] [place] [address]- 8296 Jan, [facility] [place] [facility] [address] [id number] [place] [address]- 2804 Jan, [facility] [place] [facility] [address] [id number] [place] [address]- 8090 December, [facility] [place] [facility] [address] [id number] [place] [address]- 0491 December, [facility] [place] [facility] [address] [id number] [place] [address]- 3709 Nov, [facility] [place] [facility] [address] [id number] [place] [address]- 2024 Nov, [facility] [place] [facility] [address] [id number] [place] [address]- 5786 Oct, [facility] [place] [facility] [address] [id number] [place] [address]- 6029 Oct, [facility] [place] [facility] [address] [id number] [place] [address]- 9966 Oct, [facility] [place] [facility] [address] [id number] [place] [address]- 0803 Oct, [facility] [place] [facility] [address] [id number] [place] [address]- 4513 Sep, [facility] [place] [facility] [address] [id number] [place] [address]- 9836 Sep, [facility] [place] [facility] [address] [id number] [place] [address]- 4821 Sep, [facility] [place] [facility] [address] [id number] [place] [address]- 9470 Sep, [facility] [place] [facility] [address] [id number] [place] [address]- 0775 Aug, [facility] [place] [facility] [address] [id number] [place] [address] Aug, [facility] [place] [facility] [address] [id number] [place] [address] Jul, [facility] [place] [facility] [address] [id number] [place] [address] Jul, [facility] [place] [facility] [address] [id number] [place] [address] Jul, [facility] [place] [facility] [address] [id number] [place] [address] Jul, [facility] [place] [facility] [address] [id number] [place] [address] Jul, [facility] [place] [facility] [address] [id number] [place] [address] Jul, [facility] [place] [facility] [address] [id number] [place] [address] Jun, [facility] [place] [facility] [address] [id number] [place] [address] Jun, [facility] [place] [facility] [address] [id number] [place] [address] Jun, [facility] [place] [facility] [address] [id number] [place] [address] Jun, [facility] [place] [facility] [address] [id number] [place] [address] Jun, [facility] [place] [facility] [address] [id number] [place] [address] May, [facility] [place] [facility] [address] [id number] [place] [address] May, [facility] [place] [facility] [address] [id number] [place] [address] May, [facility] [place] [facility] [address] [id number] [place] [address] May, [facility] [place] [facility] [address] [id number] [place] [address] May, [facility] [place] [facility] [address] [id number] [place] [address] May, [facility] [place] [facility] [address] [id number] [place] [address] May, [facility] [place] [facility] [address] [id number] [place] [address] May, [facility] [place] [facility] [address] [id number] [place] [address] Mar, [facility] [place] [facility] [address] [id number] [place] [address] Mar, [facility] [place] [facility] [address] [id number] [place] [address] Mar, [facility] [place] [facility] [address] [id number] [place] [address] Feb, [facility] [place] [facility] [address] [id number] [place] [address] Feb, [facility] [place] [facility] [address] [id number] [place] [address] Feb, [facility] [place] [facility] [address] [id number] [place] [address] Feb, [facility] [place] [facility] [address] [id number] [place] [address] Jan, [facility] [place] [facility] [address] [id number] [place] [address] Jan, [facility] [place] [facility] [address] [id number] [place] [address] Jan, [facility] [place] [facility] [address] [id number] [place] [address] December, [facility] [address] [id number] [place] [address] Nov, [facility] [place] [facility] [address] [id number] [place] [address] Oct, [facility] [place] [facility] [address] [id number] [place] [address] Oct, [facility] [place] [facility] [address] [id number] [place] [address] Oct, [facility] [place] [facility] [address] [id number] [place] [address] Oct, [facility] [place] [facility] [address] [id number] [place] [address] Aug, [facility] [place] [facility] [address] [id number] [place] [address] Aug, [facility] [place] [facility] [address] [id number] [place] [address] Aug, [facility] [place] [facility] [address] [id number] [place] [address] Aug, [facility] [place] [facility] [address] [id number] [place] [address] Aug, [facility] [place] [facility] [address] [id number] [place] [address] Aug, [facility] [place] [facility] [address] [id number] [place] [address] Aug, [facility] [place] [facility] [address] [id number] [place] [address] Aug, [facility] [place] [facility] [address] [id number] [place] [address] Jul, [facility] [place] [facility] [address] [id number] [place] [address] Jun, [facility] [place] [facility] [address] [id number] [place] [address] 29 Jun, 2011 [facility] [address] [id number] [place] [address] 31 Jul, 2010 [facility] [place] [facility] [address] [id number] [place] [address] 22 Jul, 2010 [facility] [place] [facility] [address] [id number] [place] [address] 22 Jul, 2010 [facility] [place] [facility] [address] [id number] [place] [address] 14 Jul, 2010 [facility] [place] [facility] [address] [id number] [place] [address] 14 Jul, 2010 [facility] [address] [id number] [place] [address] 24 Jun, 2010 [facility] [address] [id number] [place] [address] May, [facility] [address] [id number] [place] [address] Mar, [facility] [place] [facility] [address] [id number] [place] [address] Oct, [facility] [place] [facility] [address] [id number] [place] [address] Aug, [facility] [place] [facility] [address] [id number] [place] [address] 15 Jul, 2009 [facility] [place] [facility] [address] [id number] [place] [address] Jul, [facility] [place] [facility] [address] [id number] [place] [address] Jun, [facility] [place] [facility] [address] [id number] [place] [address] Jun, [facility] [place] [facility] [address] [id number] [place] [address] May, [facility] [address] [facility] [id number] [place] [address] May, [facility] [address] [facility] [id number] [place] [address] Mar, [facility] [address] [facility] [id number] [place] [address] Mar, [facility] [address] [facility] [id number] [place] [address] Oct, IMMUNIZATIONS No Known Immunizations SOCIAL HISTORY Never Assessed REASON FOR VISIT BH f/u, Depression and anxiety. PLAN OF CARE Activity Details Follow Up Next available Reason:depression and anxiety VITAL SIGNS MEDICATIONS Unknown Medications RESULTS No Results PROCEDURES Procedure Date Ordered Result Body Site Psychotherapy, patient &/family, 45 minutes, established patient Aug 01, 2017 INSTRUCTIONS MEDICATIONS ADMINISTERED No Known Medications [...] disc replacement L1- L5 - Dr Muhammad ([place]) Surgical History appendectomy 1983 Surgical History hysterectomy 1993 Surgical History dilatation and curettage Surgical History heart cath- Dr Shaw [address] Meza bowel and intestines 2015 Hospitalization History Hospitalization for surgery only
--- OUTSIDE RECORDS SUMMARY | 2018-04-23 11:53 | XMS REPORT ---
Author Author WILD RODRIGUEZ Organization [facility] Address [address] [place] [address] Care Team Providers Care Camera Maker Name Role Phone WILD RODRIGUEZ Unavailable PROBLEMS Type Condition ICD9-CM Code SOD30-NE Code Onset Dates Condition Status SNOMED Code Problem Generalized anxiety disorder F41.1 Active 61795567 Problem Cannabis abuse F12.10 Active 70718253 Problem Major depressive disorder, recurrent episode, moderate F33.1 Active 569770651 Problem Tobacco use Z72.0 Active 468035796 Problem Diarrhea 787.91 Active 92743531 Problem PTSD (post-traumatic stress disorder) F43.10 Active 32968920 Problem Opioid use disorder, moderate, in sustained remission F11.21 Active 24318029 Problem Alcohol use disorder, mild, 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 Active 88154630 Problem Cocaine use disorder, moderate, in sustained remission F14.21 Active 39529588 Problem Methamphetamine use disorder, severe, 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 Active 25289474 Problem Thoracic or lumbosacral neuritis or radiculitis, unspecified 724.4 Active 221906484 Problem Hematuria, unspecified 599.70 Active 88439715 Problem Spasm of muscle 728.85 Active 03721390 Problem Lumbago 724.2 Active 429659580 Problem Insomnia 780.52 Active 953027698 Problem Hyperlipidemia 272.4 Active 62059121 Problem Major depressive disorder, recurrent episode, severe, without mention of psychotic behavior 296.33 Active 46225534 Problem Prediabetes 790.29 Active 0078979 Problem Adjustment disorder with depressed mood 309.0 Active 31602782 Problem Mixed hyperlipidemia E78.2 Active 231326204 ALLERGIES Substance Reaction Event Type Date Status Pravastatin Sodium itching Drug Allergy Jun, Active Duragesic-100 vomiting- Patches only Drug Allergy Jun, Active ENCOUNTERS Encounter Location Date Diagnosis [facility] [address] [facility] [id number] [address] Jan, [facility] [address] [id number], [place] [address] Jan, [facility] [id number] [place] [address] 27970- 5459 December, Major depressive disorder, recurrent episode, moderate F33.1 [facility] [id number] [place] [address] 75231- 8195 December, [facility] [id number] [place] [address] 89003- 8573 December, Major depressive disorder, recurrent episode, moderate [...] sustained remission F10.11 and Tobacco use Z72.0 [facility] [id number] [place] [address] 62316- 6817 Nov, [facility] [id number] [place] [address] Nov, [facility] [id number] [place] [address] 99744- 9762 Nov, Wellness examination Z00.00 ; Encounter for immunization Z23 ; Screening for osteoporosis Z13.820 ; Screening for breast cancer Z12.31 and Left breast lump N63.20 [facility] [address] [id number] [id number] Oct, Dental examination Z01.20 [facility] [id number] [place] [address] 33182- 3619 Oct, [facility] [id number] [place] [address] 55203- 9018 Oct, [facility] [id number] [place] [address] 03642- 5530 16 Sep, 2017 [facility] [id number] [place] [address] 89231- 7662 15 Sep, 2017 [facility] [id number] [place] [address] 71636- 8287 14 Sep, 2017 Left otitis media with effusion H65.92 ; Acute suppurative otitis media of right ear without spontaneous rupture of tympanic membrane, recurrence not specified H66.001 ; Dizziness R42 and Fatigue 780.[id number] [place] [address] 23840- 5178 Aug, Major depressive disorder, recurrent episode, moderate [...] use Z72.0 [facility] [id number] [place] [address]609 [address]8672 Aug, Ingrown right big toenail L60.0 [facility] [id number] [place] [address] 71810- 9607 Aug, [facility] [id number] [place] [address] 25052- 8312 Aug, PTSD (post-traumatic stress disorder) F43.10 [place] [id number] [place] [address] 32813- 9911 Aug, Major depressive disorder, recurrent episode, moderate F33.1 ; Generalized anxiety disorder F41.1 and Cannabis abuse F12.10 [facility] [id number] [place] [address] 68975- 9380 Jul, [facility] [id number] [place] [address] 29495- 0813 Jul, [place] [address], [place] [address] Jul, [place] [id number] [place] [address] Jul, Major depressive disorder, recurrent episode, moderate F33.1 ; Generalized anxiety disorder F41.1 and Cannabis abuse F12.10 [place] [id number] [place] [address] 16528- 4466 Jul, [place] [id number] [place] [address] 28137- 6632 Jul, [place] [place] [id number] [place] [address] 63662- 9211 Jul, Hyperlipidemia 272.4 [place] [id number] [place] [address] 46251- 1547 Jul, PTSD (post-traumatic stress disorder) F43.10 [place] [id number] [place] [address] 52824- 7516 Jul, Tobacco use Z72.0 ; Alcohol use [...] anxiety disorder F41.1 and Cannabis abuse F12.10 [place] [address], [place] [address] Jul, [place] [id number] [place] [address] 06004- 3783 Jul, Dysuria R30.0 and Mixed hyperlipidemia E78.2 [place] [address] [place] [address] 74581- 2379 Jun, Major depressive disorder, recurrent episode, moderate F33.1 ; Generalized anxiety disorder F41.1 and Cannabis abuse F12.10 [facility] [address], [place] [address]26 Jun, [facility] [id number] [place] [address] 54446- 5598 Jun, Generalized anxiety disorder F41.1 ; Major depressive disorder, recurrent episode, moderate F33.1 ; PTSD (post-traumatic stress disorder) F43.10 ; Opioid use disorder, moderate, in sustained remission F11.21 ; Cannabis abuse F12.10 ; Alcohol use disorder, mild, 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 ; Methamphetamine use disorder, severe, 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 ; Cocaine use disorder, moderate, in sustained remission F14.21 and Tobacco use Z72.0 [facility] [id number] [place] [address] 95279- 2982 Jun, Major depressive disorder, recurrent episode, moderate F33.1 ; Generalized anxiety disorder F41.1 and Cannabis abuse F12.10 [facility] [address] [place] [address] 00235- 9728 Jun, [facility] [id number] [place] [address] 91863- 4121 Jun, [facility] [id number] [place] [address] 79270- 6500 Jun, Major depressive disorder, recurrent episode, moderate F33.1 ; Generalized anxiety disorder F41.1 and Cannabis abuse F12.10 [facility] [id number] [place] [address] [id number] Mar, Dental examination Z01.20 [facility] [address] [place] [address] [id number] Feb, Dental examination Z01.20 [facility] [id number] [place] [address] 30051- 4088 Mar, [facility] [id number] [place] [address] 58730- 9123 Mar, [facility] [address] [place] [address]- 7831 15 Feb, 2015 Hyperlipidemia 272.4 and Prediabetes 790.29 [facility] [id number] [place] [address] 14209- 1735 Feb, Fatigue 780.79 and Hyperlipidemia 272.4 [facility] [id number] [place] [address] 20947- 4847 Feb, Lumbago 724.2 ; Hyperlipidemia 272.4 ; Insomnia 780.52 and Fatigue 780.79 [facility] [address] [place] [address]- 4788 Nov, [facility] [id number] [place] [address], [place] [address]- 7687 Nov, [facility] [id number] [place] [address] 87281- 2829 Mar, [facility] [id number] [place] [address] 84964- 6104 Mar, [facility] [address], [place] [address] 9839 Jan, [facility] [address], [place] [address]- 2715 Jan, [facility] [address], [place] [address]- 5659 December, [facility] [address], [place] [address]- 4012 December, [facility] [address], [place] [address]- 1624 Nov, [facility] [address] [place] [address]- 2293 Nov, [facility] [address], [place] [address]- 4673 Nov, [facility] [address], [place] [address]- 4136 Nov, [facility] [place] [facility] [address] [id number] [place] [address]- 2953 Nov, [facility] [place] [facility] [address] [id number] [place] [address]- 9542 Nov, [facility] [place] [facility] [address] [id number] [place] [address]- 6732 Oct, [facility] [place] [facility] [address] [id number] [place] [address]- 0074 31 Oct, 2013 [facility] [place] [facility] [address] [id number] [place] [address]- 2578 Oct, [facility] [place] [facility] [address] [id number] [place] [address]- 6063 Oct, [facility] [place] [facility] [address] [id number] [place] [address]- 2577 Oct, [facility] [place] [facility] [address] [id number] [place] [address]- 4244 Oct, [facility] [place] [facility] [address] [id number] [place] [address]- 4746 Oct, [facility] [place] [facility] [address] [id number] [place] [address]- 8397 Oct, [facility] [place] [facility] [address] [id number] [place] [address]- 4256 Oct, [facility] [place] [facility] [address] [id number] [place] [address]- 7844 Oct, [facility] [place] [facility] [address] [id number] [place] [address]- 1237 04 Oct, 2013 [facility] [place] [facility] [address] [id number] [place] [address]- 4393 Oct, [facility] [place] [facility] [address] [id number] [place] [address]- 8835 Oct, [facility] [place] [facility] [address] [facility] [id number] [place] [address]- 2842 24 Sep, 2013 [facility] [place] [facility] [address] [id number] [place] [address]- 9936 24 Sep, 2013 [facility] [place] [facility] [address] [id number] [place] [address]- 7296 20 Sep, 2013 [facility] [place] [facility] [address] [facility] [id number] [place] [address]- 6394 20 Sep, 2013 [facility] [place] [facility] [address] [id number] [place] [address]- 1538 20 Sep, 2013 [facility] [place] [facility] [address] [facility] [id number] [place] [address]- 6297 20 Sep, 2013 [facility] [place] [facility] [address] [facility] [id number] [place] [address]- 0624 18 Sep, 2013 [facility] [place] [facility] [id number] [place] [address]- 1524 18 Sep, 2013 [facility] [place] [facility] [address] [facility] [id number] [place] [address]- 5994 14 Sep, 2013 [facility] [place] [facility] [address] [facility] [id number] [place] [address]- 5744 14 Sep, 2013 [facility] [place] [facility] [id number] [place] [address]- 9976 14 Sep, 2013 [facility] [place] [facility] [address] [facility] [id number], [place] [address]- 6558 14 Sep, 2013 [facility] [place] [facility] [address] [facility] [id number] [place] [address]- 5274 14 Sep, 2013 [facility] [place] [facility] [address] [facility] [id number] [place] [address]- 0101 14 Sep, 2013 [facility] [place] [facility] [address] [facility] [id number] [place] [address]- 7953 13 Sep, 2013 [facility] [place] [facility] [address] [facility] [id number], [place] [address]- 4363 Sep, [facility] [address] [id number] [place] [address]- 5252 Sep, [facility] [place] [facility] [address] [id number] [place] 9816 Sep, [facility] [place] [facility] [address] [id number] [place] [address]- 7156 Sep, [facility] [place] [facility] [address] [id number] [place] [address]- 3552 Sep, [facility] [place] [facility] [address] [id number] [place] [address]- 4228 Aug, [facility] [place] [facility] [address] [id number] [place] [address]- 1759 Aug, [facility] [address] [id number] [place] [address]- 3593 Aug, [facility] [address] [id number] [place] [address]- 2652 Aug, [facility] [place] [facility] [address] [id number] [place] [address]- 3971 Aug, [facility] [address] [facility] [id number] [place] [address]- 5774 Jul, [facility] [place] [facility] [address] [id number] [place] [address]- 6710 Jul, [facility] [place] [facility] [address] [id number] [place] [address]- 7124 Jul, [facility] [place] [facility] [address] [id number] [place] [address]- 1917 Jul, [facility] [place] [facility] [address] [id number] [place] [address]- 8579 Jul, [facility] [place] [facility] [address] [id number] [place] [address]- 5462 Jul, [facility] [place] [facility] [address] [id number] [place] [address]- 3360 Jul, [facility] [place] [facility] [address] [id number] [place] 7317 Jul, [facility] [place] [facility] [address] [id number] [place] [address]- 9764 Jul, [facility] [place] [facility] [address] [id number] [place] [address]- 6140 Jun, [facility] [place] [facility] [address] [id number] [place] [address]- 6372 Jun, [facility] [place] [facility] [address] [id number] [place] [address]- 9322 Jun, [facility] [place] [facility] [address] [id number] [place] [address]- 2347 Jun, [facility] [place] [facility] [address] [id number] [place] [address]- 7620 Jun, [facility] [place] [facility] [address] [id number] [place] [address]- 0048 Jun, [facility] [place] [facility] [address] [id number] [place] [address]- 9685 Jun, [facility] [place] [facility] [address] [id number] [place] [address]- 0079 Jun, [facility] [place] [facility] [address] [id number], [place] [address]- 4478 Jun, [facility] [place] [facility] [address] [id number] [place] [address]- 9117 Jun, [facility] [place] [facility] [address] [id number] [place] [address]- 8889 May, [facility] [place] [facility] [address] [id number] [place] [address]- 8993 May, [facility] [place] [facility] [address] [id number], [place] [address]- 1115 May, [facility] [place] [facility] [address] [id number] [place] [address]- 1232 May, [facility] [place] [facility] [address] [id number] [place] [address]- 5477 May, [facility] [place] [facility] [address] [id number] [place] [address]- 8534 May, [facility] [place] [facility] [address] [id number] [place] [address]- 0904 May, [facility] [place] [facility] [address] [id number] [place] [address]- 1765 May, [facility] [place] [facility] [address] [id number] [place] [address]- 8308 May, [facility] [place] [facility] [address] [id number] [place] [address]- 3394 Apr, [facility] [place] [facility] [address] [id number] [place] [address]- 5892 16 Apr, 2013 [facility] [place] [facility] [address] [id number] [place] [address]- 1446 Apr, [facility] [place] [facility] [address] [id number] [place] [address]- 4886 Apr, [facility] [place] [facility] [address] [id number] [place] [address]- 4727 Mar, [facility] [place] [facility] [address] [id number] [place] [address]- 6492 Mar, [facility] [place] [facility] [address] [id number] [place] [address]- 8919 Mar, [facility] [place] [facility] [address] [id number] [place] [address]- 4132 Mar, [facility] [place] [facility] [address] [id number] [place] [address]- 3573 Mar, [facility] [place] [facility] [address] [id number] [place] [address]- 4537 Mar, [facility] [address] [id number] [place] [address]- 0104 Mar, [facility] [address] [id number] [place] [address]- 5985 Feb, [facility] [address] [id number] [place] [address]- 7422 Feb, [facility] [address] [id number] [place] [address]- 0188 Feb, [facility] [address] [id number] [place] [address]- 9992 Feb, [facility] [address] [id number] [place] [address]- 6306 Feb, [facility] [address] [id number] [place] [address]- 9490 Feb, [facility] [address] [id number] [place] [address]- 7882 Feb, [facility] [address] [id number] [place] [address]- 6860 Feb, [facility] [address] [id number] [place] [address]- 5196 Feb, [facility] [address] [id number] [place] [address]- 3211 Feb, [facility] [address] [id number] [place] [address]- 8394 Feb, [facility] [place] [facility] [address] [id number] [place] [address]- 2565 Jan, [facility] [place] [facility] [address] [id number] [place] [address]- 9826 Jan, [facility] [address] [id number] [place] [address]- 9705 December, [facility] [address] [id number] [place] [address]- 6335 December, [facility] [address] [id number] [place] [address]- 5968 Nov, [facility] [address] [id number] [place] [address]- 7469 Nov, [facility] [address] [id number] [place] [address]- 4081 Oct, [facility] [address] [id number] [place] [address]- 5006 Oct, [facility] [address] [id number] [place] [address]- 6455 Oct, [facility] [address] [id number] [place] [address]- 9786 Oct, [facility] [address] [id number] [place] [address]- 9946 Sep, [facility] [address] [id number] [place] [address]- 8784 Sep, [facility] [address] [id number] [place] [address]- 5136 Sep, [facility] [address] [id number] [place] [address]- 4274 Sep, [facility] [place] [facility] [address] [id number], [place] [address]- 6985 Aug, [facility] [place] [facility] [address] [id number] [place] [address]- 4243 Aug, [facility] [place] [facility] [address] [id number] [place] [address]- 4471 Jul, [facility] [place] [facility] [address] [id number] [place] [address]- 9407 Jul, [facility] [place] [facility] [address] [id number] [place] [address]- 2094 Jul, [facility] [place] [facility] [address] [id number] [place] [address]- 0296 Jul, [facility] [place] [facility] [address] [id number] [place] [address]- 5186 Jul, [facility] [place] [facility] [address] [id number] [place] [address]- 3910 Jul, [facility] [place] [facility] [address] [id number] [place] [address]- 8405 Jun, [facility] [place] [facility] [address] [id number] [place] [address]- 3536 Jun, [facility] [place] [facility] [address] [id number] [place] [address] Jun, [facility] [place] [facility] [address] [id number] [place] [address] Jun, [facility] [place] [facility] [address] [id number] [place] [address] Jun, [facility] [place] [facility] [address] [id number] [place] [address] May, [facility] [place] [facility] [address] [facility] [id number] [place] [address] May, [facility] [place] [facility] [address] [id number] [place] [address] May, [facility] [place] [facility] [address] [id number] [place] [address] May, [facility] [place] [facility] [address] [id number] [place] [address] May, [facility] [place] [facility] [address] [facility] [id number] [place] [address] May, [facility] [place] [facility] [address] [id number] [place] [address] May, [facility] [place] [facility] [address] [id number] [place] [address] May, [facility] [place] [facility] [address] [id number] [place] [address] Mar, [facility] [place] [facility] [address] [id number] [place] [address] Mar, [facility] [place] [facility] [address] [id number] [place] [address] Mar, [facility] [place] [facility] [address] [id number] [place] [address] Feb, [facility] [place] [facility] [address] [id number] [place] [address] Feb, [facility] [place] [facility] [address] [id number] [place] [address]- [address] Feb, [facility] [place] [facility] [address] [id number] [place] [address] Feb, [facility] [place] [facility] [address] [id number] [place] [address] Jan, [facility] [place] [facility] [address] [id number] [place] [address] Jan, [facility] [place] [facility] [address] [id number] [place] [address] Jan, [facility] [place] [facility] [address] [id number] [place] [address] December, [facility] [place] [facility] [address] [id number] [place] [address] Nov, [facility] [place] [facility] [address] [id number] [place] [address] Oct, [facility] [place] [facility] [address] [id number] [place] [address] Oct, [facility] [place] [facility] [address] [id number] [place] [address] Oct, [facility] [address] [id number] [place] [address]- [address] Oct, [facility] [place] [facility] [address] [id number] [place] [address] Aug, [facility] [place] [facility] [address] [id number] [place] [address] Aug, [facility] [place] [facility] [address] [id number] [place] [address] Aug, [facility] [place] [facility] [address] [id number] [place] [address] Aug, [facility] [place] [facility] [address] [id number] [place] [address] Aug, [facility] [place] [facility] [address] [id number] [place] [address] Aug, [facility] [place] [facility] [address] [id number] [place] [address] Aug, [facility] [place] [facility] [address] [id number] [place] [address] Aug, [facility] [place] [facility] [address] [id number] [place] [address] Jul, [facility] [place] [facility] [address] [id number] [place] [address] Jun, [facility] [place] [facility] [address] [id number] [place] [address] Jun, [facility] [place] [facility] [address] [id number] [place] [address] Jul, [facility] [place] [facility] [address] [id number] [place] [address] Jul, [facility] [place] [facility] [address] [id number] [place] [address] Jul, [facility] [place] [facility] [address] [id number] [place] [address]- [address] 14 Jul, 2010 [facility] [address] [id number] [place] [address] 14 Jul, 2010 [facility] [address] [id number] [place] [address] 24 Jun, 2010 [facility] [address] [id number] [place] [address] 21 May, 2010 [facility] [address] [id number] [place] [address] Mar, [facility] [address] [id number] [place] [address] Oct, [facility] [address] [id number] [place] [address] Aug, [facility] [address] [id number] [place] [address] 15 Jul, 2009 [facility] [address] [id number] [place] [address] Jul, [facility] [address] [id number] [place] [address] Jun, [facility] [address] [facility] [id number] [place] [address] Jun, [facility] [address] [id number] [place] [address] May, [facility] [address] [id number] [place] [address] May, [facility] [address] [id number] [place] [address] Mar, [facility] [address] [id number] [place] [address] 14 Mar, 2009 [facility] [address] [id number] [place] [address] Oct, IMMUNIZATIONS No Known Immunizations SOCIAL HISTORY Never Assessed REASON FOR VISIT [facility] PLAN OF CARE VITAL SIGNS MEDICATIONS Medication Instructions Dosage Frequency Start Date End Date Duration Status Xanax 1 mg 1 tablet by Oral route 3 times per day PRN 20 Oct, 2013 Active cyclobenzaprine 10 mg 1 tablet every 6 hours PRN 8h 26 Oct, 2012 Active Prozac 10 MG Orally daily 1 capsule every day for one week then take 2 capsules every day 24h Jun, 30 day(s) Active Trazodone HCl 100 MG Orally Once a day 1 tablet at bedtime 24h Feb, Active Naproxen 500 MG Orally 2 times a day 1 tablet as needed 12h Active RESULTS No Results PROCEDURES No Known [...] disc replacement L1- L5 - Dr Muhammad ([place]) Surgical History appendectomy 1983 Surgical History hysterectomy 1993 Surgical History dilatation and curettage Surgical History heart cath- Dr Shaw [address] Meza bowel and intestines 2015 Hospitalization History Hospitalization for surgery only
--- OUTSIDE RECORDS SUMMARY | 2018-04-23 11:58 | XMS REPORT | Continuity of Care Document ---
Author Author [facility] Address Unknown Phone Unavailable Allergies Active Description Code Type Severity Reaction Onset Reported/Identified Relationship to Patient Clinical Status Yes Duragesic Drug Allergy 08/28/2008 Yes Duragesic Drug Allergy N/A N/A 08/28/2008 Yes fentanyl [id number] Drug Allergy Unknown N/A 01/16/2017 Yes Nnxcvqc-Gei-Pab Reductase Inhibitor [id number] Drug Allergy Unknown LEG CRAMPS 01/16/2017 Medications There is no data. Problems Date Dx Coded Attending Type Code Diagnosis Diagnosed By 07/06/1342 RK FU MD, Ot S13.4XXD SPRAIN OF LIGAMENTS OF CERVICAL SPINE, S 07/06/1342 RK FU MD, Ot X50.9XXD OTHER AND UNSPECIFIED OVREXRTN OR STRNOU 03/19/2008 DON GUADALUPE APRN S 729.1 Inflammatory Myopathy (myositis) 03/19/2008 SAMANTHA GUADALUPE APRNA S 789.00 Abdominal Pain 03/19/2008 729.1 Inflammatory Myopathy (myositis) 03/19/2008 789.00 Abdominal Pain 03/19/2008 DOMINIQUE GUADALUPE APRNNDA S 729.1 Inflammatory Myopathy (myositis) 03/19/2008 DOMINIQUE GUADALUPE APRNNDA S 789.00 Abdominal Pain 03/19/2008 DOMINIQUE GUADALUPE APRNNDA S 729.1 Inflammatory Myopathy (myositis) 03/19/2008 DOMINIQUE GUADALUPE APRNNDA S 789.00 Abdominal Pain 03/19/2008 729.1 Inflammatory Myopathy (myositis) 03/19/2008 789.00 Abdominal Pain 03/19/2008 729.1 Inflammatory Myopathy (myositis) 03/19/2008 789.00 Abdominal Pain 03/19/2008 MELISSA DAHL MD 729.1 Inflammatory Myopathy (myositis) 03/19/2008 NABILA MARSHALL, MELISSA 789.00 Abdominal Pain 03/19/2008 ANAYELI BARON, DON S 729.1 Inflammatory Myopathy (myositis) 03/19/2008 ANAYELI BARON, DON S 789.00 Abdominal Pain 03/19/2008 NEISHA DDS, KACIE Fontanez 729.1 Inflammatory Myopathy (myositis) 03/19/2008 NEISHA DDS, KACIE Fontanez 789.00 Abdominal Pain 03/19/2008 ANAYELI PATN, DON S 729.1 Inflammatory Myopathy (myositis) 03/19/2008 ANAYELI PATN, DON S 789.00 Abdominal Pain 03/19/2008 ANAYELI PATN, DON S 729.1 Inflammatory Myopathy (myositis) 03/19/2008 ANAYELI BARON, DON S 789.00 Abdominal Pain 03/19/2008 ANAYELI BARON, DON S 729.1 Inflammatory Myopathy (myositis) 03/19/2008 ANAYELI BARON, DON S 789.00 Abdominal Pain 03/19/2008 ANAYELI PATN, DON S 729.1 Inflammatory Myopathy (myositis) 03/19/2008 ANAYELI BARON, DON S 789.00 Abdominal Pain 03/19/2008 WHITE DDS, STALIN J 729.1 Inflammatory Myopathy (myositis) 03/19/2008 WHITE DDS, STALIN J 789.00 Abdominal Pain 03/19/2008 ANAYELI BARON, DON S 729.1 Inflammatory Myopathy (myositis) 03/19/2008 ANAYELI BARON, DON S 789.00 Abdominal Pain 08/28/2008 DOMINIQUE GUADALUPE APRNNDA S 296.90 Episodic Mood Disorders 08/28/2008 DOMINIQUE GUADALUPE APRNNDA S 300.00 Anxiety 08/28/2008 DOMINIQUE GUADALUPE APRNNDA S 627.9 MENOPAUSAL DISORDER 08/28/2008 296.90 Episodic Mood Disorders 08/28/2008 300.00 Anxiety 08/28/2008 627.9 MENOPAUSAL DISORDER 08/28/2008 DOMINIQUE GUADALUPE APRNNDA S 296.90 Episodic Mood Disorders 08/28/2008 ANAYELI MATTRESS FILLER, DON S 300.00 Anxiety 08/28/2008 ANAYELI MATTRESS FILLER, DON S 627.9 MENOPAUSAL DISORDER 08/28/2008 ANAYELI MATTRESS FILLER, DON S 296.90 Episodic Mood Disorders 08/28/2008 ANAYELI MATTRESS FILLER, DON S 300.00 Anxiety 08/28/2008 ANAYELI MATTRESS FILLER, DON S 627.9 MENOPAUSAL DISORDER 08/28/2008 296.90 Episodic Mood Disorders 08/28/2008 300.00 Anxiety 08/28/2008 627.9 MENOPAUSAL DISORDER 08/28/2008 296.90 Episodic Mood Disorders 08/28/2008 300.00 Anxiety 08/28/2008 627.9 MENOPAUSAL DISORDER 08/28/2008 MELISSA DAHL MD 296.90 Episodic Mood Disorders 08/28/2008 MELISSA DAHL MD 300.00 Anxiety 08/28/2008 MELISSA DAHL MD 627.9 MENOPAUSAL DISORDER 08/28/2008 ANAYELI PATN, DON S 296.90 Episodic Mood Disorders 08/28/2008 ANAYELI PATN, DON S 300.00 Anxiety 08/28/2008 ANAYELI MATTRESS FILLER, DON S 627.9 MENOPAUSAL DISORDER 08/28/2008 NEISHA DDS, KACIE M 296.90 Episodic Mood Disorders 08/28/2008 NEISHA DDS, KACIE M 300.00 Anxiety 08/28/2008 NEISHA DDS, KACIE M 627.9 MENOPAUSAL DISORDER 08/28/2008 ANAYELI MATTRESS FILLER, DON S 296.90 Episodic Mood Disorders 08/28/2008 ANAYELI MATTRESS FILLER, DON S 300.00 Anxiety 08/28/2008 ANAYELI MATTRESS FILLER, DON S 627.9 MENOPAUSAL DISORDER 08/28/2008 ANAYELI MATTRESS FILLER, DON S 296.90 Episodic Mood Disorders 08/28/2008 ANAYELI MATTRESS FILLER, DON S 300.00 Anxiety 08/28/2008 ANAYELI MATTRESS FILLER, DON S 627.9 MENOPAUSAL DISORDER 08/28/2008 ANAYELI MATTRESS FILLER, DON S 296.90 Episodic Mood Disorders 08/28/2008 ANAYELI MATTRESS FILLER, DON S 300.00 Anxiety 08/28/2008 ANAYELI MATTRESS FILLER, DON S 627.9 MENOPAUSAL DISORDER 08/28/2008 ANAYELI PATN, DON S 296.90 Episodic Mood Disorders 08/28/2008 ANAYELI MATTRESS FILLER, DON S 300.00 Anxiety 08/28/2008 ANAYELI MATTRESS FILLER, DON S 627.9 MENOPAUSAL DISORDER 08/28/2008 WHITE DDS, STALIN J 296.90 Episodic Mood Disorders 08/28/2008 WHITE DDS, STALIN J 300.00 Anxiety 08/28/2008 WHITE DDS, STALIN J 627.9 MENOPAUSAL DISORDER 08/28/2008 ANAYELI PATN, DON S 296.90 Episodic Mood Disorders 08/28/2008 ANAYELI PATN, DON S 300.00 Anxiety 08/28/2008 ANAYELI PATN, DON S 627.9 MENOPAUSAL DISORDER 09/30/2008 ANAYELI PATN, DON S 346.90 Migraine Headache 09/30/2008 346.90 Migraine Headache 09/30/2008 ANAYELI BARON, DON S 346.90 Migraine Headache 09/30/2008 ANAYELI BARON, DON S 346.90 Migraine Headache 09/30/2008 346.90 Migraine Headache 09/30/2008 346.90 Migraine Headache 09/30/2008 MELISSA DAHL MD 346.90 Migraine Headache 09/30/2008 ANAYELI BARON, DON S 346.90 Migraine Headache 09/30/2008 KACIE DRIVER DDS 346.90 Migraine Headache 09/30/2008 ANAYELI PATN, DON S 346.90 Migraine Headache 09/30/2008 ANAYELI BARON, DON S 346.90 Migraine Headache 09/30/2008 ANAYELI MATTRESS FILLER, DON S 346.90 Migraine Headache 09/30/2008 ANAYELI MATTRESS FILLER, DON S 346.90 Migraine Headache 09/30/2008 WHITE DDS, STALIN J 346.90 Migraine Headache 09/30/2008 ANAYELI PATN, DON S 346.90 Migraine Headache 10/14/2008 ANAYELI PATN, DON S 461.9 Acute Sinusitis Unspecified 10/14/2008 461.9 Acute Sinusitis Unspecified 10/14/2008 ANAYELI BARON DON S 461.9 Acute Sinusitis Unspecified 10/14/2008 ANAYELI MATTRESS FILLER, DON S 461.9 Acute Sinusitis Unspecified 10/14/2008 461.9 Acute Sinusitis Unspecified 10/14/2008 461.9 Acute Sinusitis Unspecified 10/14/2008 MELISSA DAHL MD 461.9 Acute Sinusitis Unspecified 10/14/2008 ANAYELI MATTRESS FILLER, DON S 461.9 Acute Sinusitis Unspecified 10/14/2008 KACIE DRIVER DDS 461.9 Acute Sinusitis Unspecified 10/14/2008 ANAYELI MATTRESS FILLER, DON S 461.9 Acute Sinusitis Unspecified 10/14/2008 ANAYELI MATTRESS FILLER, DON S 461.9 Acute Sinusitis Unspecified 10/14/2008 ANAYELI BARON, DON S 461.9 Acute Sinusitis Unspecified 10/14/2008 ANAYELI MATTRESS FILLER, DON S 461.9 Acute Sinusitis Unspecified 10/14/2008 STALIN PUGA DDS 461.9 Acute Sinusitis Unspecified 10/14/2008 ANAYELI BARON, DON S 461.9 Acute Sinusitis Unspecified 01/28/2009 DOMINIQUE GUADALUPE APRNNDA S 309.81 Chronic Post-traumatic Stress Disorder 01/28/2009 DOMINIQUE GUADALUPE APRNNDA S 564.01 Constipation Slow Transit 01/28/2009 DOMINIQUE GUADALUPE APRNNDA S 780.52 insomnia 01/28/2009 DOMINIQUE GUADALUPE APRNNDA S 780.79 Feeling Tired Or Poorly 01/28/2009 309.81 Chronic Post- traumatic Stress Disorder 01/28/2009 564.01 Constipation Slow Transit 01/28/2009 780.52 insomnia 01/28/2009 780.79 Feeling Tired Or Poorly 01/28/2009 DOMINIQUE GUADALUPE APRNNDA S 309.81 Chronic Post-traumatic Stress Disorder 01/28/2009 DOMINIQUE GUADALUPE APRNNDA S 564.01 Constipation Slow Transit 01/28/2009 DOMINIQUE GUADALUPE APRNNDA S 780.52 insomnia 01/28/2009 DOMINIQUE GUADALUPE APRNNDA S 780.79 Feeling Tired Or Poorly 01/28/2009 DOMINIQUE GUADALUPE APRNNDA S 309.81 Chronic Post-traumatic Stress Disorder 01/28/2009 DOMINIQUE GUADALUPE APRNNDA S 564.01 Constipation Slow Transit 01/28/2009 DOMINIQUE GUADALUPE APRNNDA S 780.52 insomnia 01/28/2009 DOMINIQUE GUADALUPE APRNNDA S 780.79 Feeling Tired Or Poorly 01/28/2009 309.81 Chronic Post- traumatic Stress Disorder 01/28/2009 564.01 Constipation Slow Transit 01/28/2009 780.52 insomnia 01/28/2009 780.79 Feeling Tired Or Poorly 01/28/2009 309.81 Chronic Post- traumatic Stress Disorder 01/28/2009 564.01 Constipation Slow Transit 01/28/2009 780.52 insomnia 01/28/2009 780.79 Feeling Tired Or Poorly 01/28/2009 MELISSA DAHL MD 309.81 Chronic Post-traumatic Stress Disorder 01/28/2009 MELISSA DAHL MD 564.01 Constipation Slow Transit 01/28/2009 MELISSA DAHL MD 780.52 insomnia 01/28/2009 MELISSA DAHL MD 780.79 Feeling Tired Or Poorly 01/28/2009 DOMINIQUE GUADALUPE APRNNDA S 309.81 Chronic Post-traumatic Stress Disorder 01/28/2009 DOMINIQUE GUADALUPE APRNNDA S 564.01 Constipation Slow Transit 01/28/2009 DOMINIQUE GUADALUPE APRNNDA S 780.52 insomnia 01/28/2009 DOMINIQUE GUADALUPE APRNNDA S 780.79 Feeling Tired Or Poorly 01/28/2009 NEISHA NEGRONS, KACIE M 309.81 Chronic Post-traumatic Stress Disorder 01/28/2009 NEISHA DDS, KACIE M 564.01 Constipation Slow Transit 01/28/2009 NEISHA DDS, KACIE M 780.52 insomnia 01/28/2009 NEISHA DDS, KACIE M 780.79 Feeling Tired Or Poorly 01/28/2009 DOMINIQUE GUADALUPE APRNNDA S 309.81 Chronic Post-traumatic Stress Disorder 01/28/2009 DOMINIQUE GUADALUPE APRNNDA S 564.01 Constipation Slow Transit 01/28/2009 ANAYELI BARON DON S 780.52 insomnia 01/28/2009 DOMINIQUE GUADALUPE APRNNDA S 780.79 Feeling Tired Or Poorly 01/28/2009 DOMINIQUE GUADALUPE APRNNDA S 309.81 Chronic Post-traumatic Stress Disorder 01/28/2009 SAMANTHA GUADALUPE APRNA S 564.01 Constipation Slow Transit 01/28/2009 DOMINIQUE GUADALUPE APRNNDA S 780.52 insomnia 01/28/2009 DOMINIQUE GUADALUPE APRNNDA S 780.79 Feeling Tired Or Poorly 01/28/2009 DOMINIQUE GUADALUPE APRNNDA S 309.81 Chronic Post-traumatic Stress Disorder 01/28/2009 SAMANTHA GUADALUPE APRNA S 564.01 Constipation Slow Transit 01/28/2009 SAMANTHA GUADALUPE APRNA S 780.52 insomnia 01/28/2009 DOMINIQUE GUADALUPE APRNNDA S 780.79 Feeling Tired Or Poorly 01/28/2009 DOMINIQUE GUADALUPE APRNNDA S 309.81 Chronic Post-traumatic Stress Disorder 01/28/2009 SAMANTHA GUADALUPE APRNA S 564.01 Constipation Slow Transit 01/28/2009 SAMANTHA GUADALUPE APRNA S 780.52 insomnia 01/28/2009 SAMANTHA GUADALUPE APRNA S 780.79 Feeling Tired Or Poorly 01/28/2009 WHITE DDS, STALIN J 309.81 Chronic Post-traumatic Stress Disorder 01/28/2009 WHITE DDS, STALIN J 564.01 Constipation Slow Transit 01/28/2009 WHITE DDS, STALIN J 780.52 insomnia 01/28/2009 WHITE DDS, STALIN J 780.79 Feeling Tired Or Poorly 01/28/2009 SAMANTHA GUADALUPE APRNA S 309.81 Chronic Post-traumatic Stress Disorder 01/28/2009 DON GUADALUPE APRN S 564.01 Constipation Slow Transit 01/28/2009 SAMANTHA GUADALUPE APRNA S 780.52 insomnia 01/28/2009 DOMINIQUE GUADALUPE APRNNDA S 780.79 Feeling Tired Or Poorly 02/27/2009 DON GUADALUPE APRN S 461.1 Sinusitis Acute Frontal 02/27/2009 DON GUADALUPE APRN S 784.0 Headache 02/27/2009 461.1 Sinusitis Acute Frontal 02/27/2009 784.0 Headache 02/27/2009 DON GUADALUPE APRN S 461.1 Sinusitis Acute Frontal 02/27/2009 ANAYELI MATTRESS FILLER, DON S 784.0 Headache 02/27/2009 ANAYELI PATN, DON S 461.1 Sinusitis Acute Frontal 02/27/2009 ANAYELI MATTRESS FILLER, DON S 784.0 Headache 02/27/2009 461.1 Sinusitis Acute Frontal 02/27/2009 784.0 Headache 02/27/2009 461.1 Sinusitis Acute Frontal 02/27/2009 784.0 Headache 02/27/2009 MELISSA DAHL MD 461.1 Sinusitis Acute Frontal 02/27/2009 NABILA MARSHALL, MELISSA 784.0 Headache 02/27/2009 ANAYELI BARON, DON S 461.1 Sinusitis Acute Frontal 02/27/2009 ANAYELI BARON, DON S 784.0 Headache 02/27/2009 NEISHA DDS, KACIE M 461.1 Sinusitis Acute Frontal 02/27/2009 NEISHA DDS, KACIE M 784.0 Headache 02/27/2009 ANAYELI BARON, DON S 461.1 Sinusitis Acute Frontal 02/27/2009 ANAYELI PATN, DON S 784.0 Headache 02/27/2009 ANAYELI BARON, DON S 461.1 Sinusitis Acute Frontal 02/27/2009 ANAYELI MATTRESS FILLER, DON S 784.0 Headache 02/27/2009 ANAYELI MATTRESS FILLER, DON S 461.1 Sinusitis Acute Frontal 02/27/2009 ANAYELI PATN, DON S 784.0 Headache 02/27/2009 ANAYELI MATTRESS FILLER, DON S 461.1 Sinusitis Acute Frontal 02/27/2009 ANAYELI MATTRESS FILLER, DON S 784.0 Headache 02/27/2009 WHITE DDS, STALIN J 461.1 Sinusitis Acute Frontal 02/27/2009 WHITE DDS, STALIN J 784.0 Headache 02/27/2009 ANAYELI MATTRESS FILLER, DON S 461.1 Sinusitis Acute Frontal 02/27/2009 ANAYELI MATTRESS FILLER, DON S 784.0 Headache 03/20/2009 ANAYELI BARON, DON S 724.1 upper back pain (between shoulder blades) 03/20/2009 ANAYELI BARON, DON S 787.01 Nausea With Vomiting 03/20/2009 ANAYELI BARON, DON S 787.91 Diarrhea 03/20/2009 724.1 upper back pain (between shoulder blades) 03/20/2009 787.01 Nausea With Vomiting 03/20/2009 787.91 Diarrhea 03/20/2009 ANAYELI BRAON DON S 724.1 upper back pain (between shoulder blades) 03/20/2009 ANAYELI MATTRESS FILLER, DON S 787.01 Nausea With Vomiting 03/20/2009 ANAYELI MATTRESS FILLER, DON S 787.91 Diarrhea 03/20/2009 ANAYELI MATTRESS FILLER, DON S 724.1 upper back pain (between shoulder blades) 03/20/2009 ANAYELI BARON DON S 787.01 Nausea With Vomiting 03/20/2009 ANAYELI BARON DON S 787.91 Diarrhea 03/20/2009 724.1 upper back pain (between shoulder blades) 03/20/2009 787.01 Nausea With Vomiting 03/20/2009 787.91 Diarrhea 03/20/2009 724.1 upper back pain (between shoulder blades) 03/20/2009 787.01 Nausea With Vomiting 03/20/2009 787.91 Diarrhea 03/20/2009 MELISSA DAHL MD 724.1 upper back pain (between shoulder blades) 03/20/2009 MELISSA DAHL MD 787.01 Nausea With Vomiting 03/20/2009 EMLISSA DAHL MD 787.91 Diarrhea 03/20/2009 ANAYELI BARON DON S 724.1 upper back pain (between shoulder blades) 03/20/2009 DOMINIQUE GUADALUPE APRNNDA S 787.01 Nausea With Vomiting 03/20/2009 ANAYELI BARON DON S 787.91 Diarrhea 03/20/2009 KACIE DRIVER DDS 724.1 upper back pain (between shoulder blades) 03/20/2009 KACIE DRIVER DDS 787.01 Nausea With Vomiting 03/20/2009 KACIE DRIVER DDS 787.91 Diarrhea 03/20/2009 ANAYELI BARON, DON S 724.1 upper back pain (between shoulder blades) 03/20/2009 DOMINIQUE GUADALUPE APRNNDA S 787.01 Nausea With Vomiting 03/20/2009 ANAYELI MATTRESS FILLER, DON S 787.91 Diarrhea 03/20/2009 ANAYELI MATTRESS FILLER, DON S 724.1 upper back pain (between shoulder blades) 03/20/2009 DOMINIQUE GUADALUPE APRNNDA S 787.01 Nausea With Vomiting 03/20/2009 ANAYELI BARON, DON S 787.91 Diarrhea 03/20/2009 ANAYELI MATTRESS FILLER, DON S 724.1 upper back pain (between shoulder blades) 03/20/2009 DOMINIQUE GUADALUPE APRNNDA S 787.01 Nausea With Vomiting 03/20/2009 DOMINIQUE GUADALUPE APRNNDA S 787.91 Diarrhea 03/20/2009 SAMANTHA GUADALUPE APRNA S 724.1 upper back pain (between shoulder blades) 03/20/2009 ANAYELI BARON, DON S 787.01 Nausea With Vomiting 03/20/2009 ANAYELI BARON, DON S 787.91 Diarrhea 03/20/2009 WHITE DDS, STALIN J 724.1 upper back pain (between shoulder blades) 03/20/2009 WHITE DDS, STALIN J 787.01 Nausea With Vomiting 03/20/2009 WHITE DDS, STALIN J 787.91 Diarrhea 03/20/2009 SAMANTHA GUADALUPE APRNA S 724.1 upper back pain (between shoulder blades) 03/20/2009 DOMINIQUE GUADALUPE APRNNDA S 787.01 Nausea With Vomiting 03/20/2009 DOMINIQUE GUADALUPE APRNNDA S 787.91 Diarrhea 03/25/2009 DON GUADALUPE APRN S 300.02 GENERALIZED ANXIETY DISORDER 03/25/2009 300.02 GENERALIZED ANXIETY DISORDER 03/25/2009 DON GUADALUPE APRN S 300.02 GENERALIZED ANXIETY DISORDER 03/25/2009 SAMANTHA GUADALUPE APRNA S 300.02 GENERALIZED ANXIETY DISORDER 03/25/2009 300.02 GENERALIZED ANXIETY DISORDER 03/25/2009 300.02 GENERALIZED ANXIETY DISORDER 03/25/2009 MELISSA DAHL MD 300.02 GENERALIZED ANXIETY DISORDER 03/25/2009 ANAYELI MATTRESS FILLER, DON S 300.02 GENERALIZED ANXIETY DISORDER 03/25/2009 KACIE DRIVER DDS 300.02 GENERALIZED ANXIETY DISORDER 03/25/2009 ANAYELI MATTRESS FILLER, DON S 300.02 GENERALIZED ANXIETY DISORDER 03/25/2009 ANAYELI MATTRESS FILLER, DON S 300.02 GENERALIZED ANXIETY DISORDER 03/25/2009 ANAYELI MATTRESS FILLER, DON S 300.02 GENERALIZED ANXIETY DISORDER 03/25/2009 ANAYELI MATTRESS FILLER, DON S 300.02 GENERALIZED ANXIETY DISORDER 03/25/2009 EDD SANCHEZ, STALIN Gordon 300.02 GENERALIZED ANXIETY DISORDER 03/25/2009 ANAYELI MATTRESS FILLER, DON S 300.02 GENERALIZED ANXIETY DISORDER 05/26/2009 ANAYELI MATTRESS FILLER, DON S 041.19 Staphylococcus Infection In Conditions Classified Elsewhere And Of Unspecified Site, Other Staphylococcus 05/26/2009 ANAYELI MATTRESS FILLER, DON S 709.9 Dermatology - Non-infectious 05/26/2009 041.19 Staphylococcus Infection In Conditions Classified Elsewhere And Of Unspecified Site, Other Staphylococcus 05/26/2009 709.9 Dermatology - Non-infectious 05/26/2009 ANAYELI MATTRESS FILLER, DON S 041.19 Staphylococcus Infection In Conditions Classified Elsewhere And Of Unspecified Site, Other Staphylococcus 05/26/2009 ANAYELI MATTRESS FILLER, DON S 709.9 Dermatology - Non-infectious 05/26/2009 ANAYELI MATTRESS FILLER, DON S 041.19 Staphylococcus Infection In Conditions Classified Elsewhere And Of Unspecified Site, Other Staphylococcus 05/26/2009 ANAYELI MATTRESS FILLER, DON S 709.9 Dermatology - Non-infectious 05/26/2009 041.19 Staphylococcus Infection In Conditions Classified Elsewhere And Of Unspecified Site, Other Staphylococcus 05/26/2009 709.9 Dermatology - Non-infectious 05/26/2009 041.19 Staphylococcus Infection In Conditions Classified Elsewhere And Of Unspecified Site, Other Staphylococcus 05/26/2009 709.9 Dermatology - Non-infectious 05/26/2009 MELISSA DAHL MD 041.19 Staphylococcus Infection In Conditions Classified Elsewhere And Of Unspecified Site, Other Staphylococcus 05/26/2009 MELISSA DAHL MD 709.9 Dermatology - Non-infectious 05/26/2009 ANAYELI MATTRESS FILLER, DON S 041.19 Staphylococcus Infection In Conditions Classified Elsewhere And Of Unspecified Site, Other Staphylococcus 05/26/2009 ANAYELI PATN, DON S 709.9 Dermatology - Non-infectious 05/26/2009 NEISHA DDSKACIE 041.19 Staphylococcus Infection In Conditions Classified Elsewhere And Of Unspecified Site, Other Staphylococcus 05/26/2009 NEISHA DDSKACIE 709.9 Dermatology - Non-infectious 05/26/2009 ANAYELI MATTRESS FILLER, DON S 041.19 Staphylococcus Infection In Conditions Classified Elsewhere And Of Unspecified Site, Other Staphylococcus 05/26/2009 ANAYELI MATTRESS FILLER, DON S 709.9 Dermatology - Non-infectious 05/26/2009 ANAYELI MATTRESS FILLER, DON S 041.19 Staphylococcus Infection In Conditions Classified Elsewhere And Of Unspecified Site, Other Staphylococcus 05/26/2009 ANAYELI PATN, DON S 709.9 Dermatology - Non-infectious 05/26/2009 ANAYELI MATTRESS FILLER, DON S 041.19 Staphylococcus Infection In Conditions Classified Elsewhere And Of Unspecified Site, Other Staphylococcus 05/26/2009 ANAYELI MATTRESS FILLER, DON S 709.9 Dermatology - Non-infectious 05/26/2009 ANAYELI MATTRESS FILLER, DON S 041.19 Staphylococcus Infection In Conditions Classified Elsewhere And Of Unspecified Site, Other Staphylococcus 05/26/2009 ANAYELI MATTRESS FILLER, DON S 709.9 Dermatology - Non-infectious 05/26/2009 WHITE DDSSTALIN J 041.19 Staphylococcus Infection In Conditions Classified Elsewhere And Of Unspecified Site, Other Staphylococcus 05/26/2009 WHITE DDS, STALIN J 709.9 Dermatology - Non-infectious 05/26/2009 ANAEYLI MATTRESS FILLER, DON S 041.19 Staphylococcus Infection In Conditions Classified Elsewhere And Of Unspecified Site, Other Staphylococcus 05/26/2009 ANAYELI MATTRESS FILLER, DON S 709.9 Dermatology - Non-infectious 06/03/2009 Ot 724.1 06/03/2009 Ot V57.1 08/18/2009 DON GUADALUPE APRN S 723.1 Neck Pain 08/18/2009 723.1 Neck Pain 08/18/2009 DOMINIQUE GUADALUPE APRNNDA S 723.1 Neck Pain 08/18/2009 ANAYELI BARON, DON S 723.1 Neck Pain 08/18/2009 723.1 Neck Pain 08/18/2009 723.1 Neck Pain 08/18/2009 MELISSA DAHL MD 723.1 Neck Pain 08/18/2009 ANAYELI BARON, DON S 723.1 Neck Pain 08/18/2009 KACIE DRIVER DDS 723.1 Neck Pain 08/18/2009 ANAYELI BARON, DON S 723.1 Neck Pain 08/18/2009 ANAYELI BARON, DON S 723.1 Neck Pain 08/18/2009 ANAYELI BARON, DON S 723.1 Neck Pain 08/18/2009 ANAYELI BARON, DON S 723.1 Neck Pain 08/18/2009 STALIN PUGA DDS 723.1 Neck Pain 08/18/2009 DOMINIQUE GUADALUPE APRNNDA S 723.1 Neck Pain 08/31/2009 Ot 722.4 08/31/2009 Ot V57.1 10/14/2009 DON GUADALUPE APRN S V07.4 taking female hormones for postmenopausal HRT 10/14/2009 DON GUADALUPE APRN S V16.3 Hereditary Site-specific Breast Cancer 10/14/2009 DON GUADALUPE APRN S V76.10 Visit For: Screening Exam Malignant Neoplasm Breast 10/14/2009 V07.4 taking female hormones for postmenopausal HRT 10/14/2009 V16.3 Hereditary Site-specific Breast Cancer 10/14/2009 V76.10 Visit For: Screening Exam Malignant Neoplasm Breast 10/14/2009 DON GUADALUPE APRN S V07.4 taking female hormones for postmenopausal HRT 10/14/2009 DON GUADALUPE APRN S V16.3 Hereditary Site-specific Breast Cancer 10/14/2009 SAMANTHA GUADALUPE APRNA S V76.10 Visit For: Screening Exam Malignant Neoplasm Breast 10/14/2009 DON GUADALUPE APRN S V07.4 taking female hormones for postmenopausal HRT 10/14/2009 ANAYELI MATTRESS FILLER, DON S V16.3 Hereditary Site-specific Breast Cancer 10/14/2009 ANAYELI MATTRESS FILLER, DON S V76.10 Visit For: Screening Exam Malignant Neoplasm Breast 10/14/2009 V07.4 taking female hormones for postmenopausal HRT 10/14/2009 V16.3 Hereditary Site-specific Breast Cancer 10/14/2009 V76.10 Visit For: Screening Exam Malignant Neoplasm Breast 10/14/2009 V07.4 taking female hormones for postmenopausal HRT 10/14/2009 V16.3 Hereditary Site-specific Breast Cancer 10/14/2009 V76.10 Visit For: Screening Exam Malignant Neoplasm Breast 10/14/2009 NABILA MARSHALL, MELISSA V07.4 taking female hormones for postmenopausal HRT 10/14/2009 MELISSA DAHL MD V16.3 Hereditary Site-specific Breast Cancer 10/14/2009 MELISSA DAHL MD V76.10 Visit For: Screening Exam Malignant Neoplasm Breast 10/14/2009 ANAYELI MATTRESS FILLER, DON S V07.4 taking female hormones for postmenopausal HRT 10/14/2009 ANAYELI PATN, DON S V16.3 Hereditary Site-specific Breast Cancer 10/14/2009 ANAYELI MATTRESS FILLER, DON S V76.10 Visit For: Screening Exam Malignant Neoplasm Breast 10/14/2009 NEISHA DDS, KACIE M V07.4 taking female hormones for postmenopausal HRT 10/14/2009 NEISHA DDS, KACIE M V16.3 Hereditary Site-specific Breast Cancer 10/14/2009 NEISHA DDS, KACIE M V76.10 Visit For: Screening Exam Malignant Neoplasm Breast 10/14/2009 ANAYELI MATTRESS FILLER, DON S V07.4 taking female hormones for postmenopausal HRT 10/14/2009 ANAYELI MATTRESS FILLER, DON S V16.3 Hereditary Site-specific Breast Cancer 10/14/2009 ANAYELI MATTRESS FILLER, DON S V76.10 Visit For: Screening Exam Malignant Neoplasm Breast 10/14/2009 ANAYELI MATTRESS FILLER, DON S V07.4 taking female hormones for postmenopausal HRT 10/14/2009 ANAYELI MATTRESS FILLER, DON S V16.3 Hereditary Site-specific Breast Cancer 10/14/2009 ANAYELI MATTRESS FILLER, DON S V76.10 Visit For: Screening Exam Malignant Neoplasm Breast 10/14/2009 ANAYELI MATTRESS FILLER, DON S V07.4 taking female hormones for postmenopausal HRT 10/14/2009 ANAYELI MATTRESS FILLER, DON S V16.3 Hereditary Site-specific Breast Cancer 10/14/2009 ANAYELI MATTRESS FILLER, DON S V76.10 Visit For: Screening Exam Malignant Neoplasm Breast 10/14/2009 ANAYELI MATTRESS FILLER, DON S V07.4 taking female hormones for postmenopausal HRT 10/14/2009 ANAYELI PATN, DON S V16.3 Hereditary Site-specific Breast Cancer 10/14/2009 ANAYELI MATTRESS FILLER, DON S V76.10 Visit For: Screening Exam Malignant Neoplasm Breast 10/14/2009 WHITE DDS, STALIN J V07.4 taking female hormones for postmenopausal HRT 10/14/2009 WHITE DDS, STALIN J V16.3 Hereditary Site-specific Breast Cancer 10/14/2009 WHITE DDS, STALIN J V76.10 Visit For: Screening Exam Malignant Neoplasm Breast 10/14/2009 ANAYELI BARON, DON S V07.4 taking female hormones for postmenopausal HRT 10/14/2009 ANAYELI MATTRESS FILLER, DON S V16.3 Hereditary Site-specific Breast Cancer 10/14/2009 ANAYELI MATTRESS FILLER, DON S V76.10 Visit For: Screening Exam Malignant Neoplasm Breast 10/29/2009 ANAYELI PATN, DON S 599.0 Urinary Tract Infection, Site Not Specified 10/29/2009 599.0 Urinary Tract Infection, Site Not Specified 10/29/2009 ANAYELI PATN, DON S 599.0 Urinary Tract Infection, Site Not Specified 10/29/2009 ANAYELI MATTRESS FILLER, DON S 599.0 Urinary Tract Infection, Site Not Specified 10/29/2009 599.0 Urinary Tract Infection, Site Not Specified 10/29/2009 599.0 Urinary Tract Infection, Site Not Specified 10/29/2009 NABILA MARSHALL, MELISSA 599.0 Urinary Tract Infection, Site Not Specified 10/29/2009 ANAYELI MATTRESS FILLER, DON S 599.0 Urinary Tract Infection, Site Not Specified 10/29/2009 NEISHA NEGRONS, KACIE Fontanez 599.0 Urinary Tract Infection, Site Not Specified 10/29/2009 ANAYELI MATTRESS FILLER, DON S 599.0 Urinary Tract Infection, Site Not Specified 10/29/2009 ANAYELI MATTRESS FILLER, DON S 599.0 Urinary Tract Infection, Site Not Specified 10/29/2009 ANAYELI MATTRESS FILLER, DON S 599.0 Urinary Tract Infection, Site Not Specified 10/29/2009 ANAYELI MATTRESS FILLER, DON S 599.0 Urinary Tract Infection, Site Not Specified 10/29/2009 EDD NEGRONS, STALIN Gordon 599.0 Urinary Tract Infection, Site Not Specified 10/29/2009 ANAYELI MATTRESS FILLER, DON S 599.0 Urinary Tract Infection, Site Not Specified 11/03/2009 ANAYELI MATTRESS FILLER, DON S 595.0 Cystitis Acute 11/03/2009 ANAYELI MATTRESS FILLER, DON S 788.1 Dysuria 11/03/2009 595.0 Cystitis Acute 11/03/2009 788.1 Dysuria 11/03/2009 ANAYELI MATTRESS FILLER, DON S 595.0 Cystitis Acute 11/03/2009 ANAYELI MATTRESS FILLER, DON S 788.1 Dysuria 11/03/2009 ANAYELI MATTRESS FILLER, DON S 595.0 Cystitis Acute 11/03/2009 ANAYELI MATTRESS FILLER, DON S 788.1 Dysuria 11/03/2009 595.0 Cystitis Acute 11/03/2009 788.1 Dysuria 11/03/2009 595.0 Cystitis Acute 11/03/2009 788.1 Dysuria 11/03/2009 MELISSA DAHL MD 595.0 Cystitis Acute 11/03/2009 MELISSA DAHL MD 788.1 Dysuria 11/03/2009 ANAYELI MATTRESS FILLER, DON S 595.0 Cystitis Acute 11/03/2009 ANAYELI MATTRESS FILLER, DON S 788.1 Dysuria 11/03/2009 NEISHA SANCHEZ, KACIE Fontanez 595.0 Cystitis Acute 11/03/2009 NEISHA SANCHEZ, KACIE Fontanez 788.1 Dysuria 11/03/2009 ANAYELI MATTRESS FILLER, DON S 595.0 Cystitis Acute 11/03/2009 ANAYELI MATTRESS FILLER, DON S 788.1 Dysuria 11/03/2009 ANAYELI MATTRESS FILLER, DON S 595.0 Cystitis Acute 11/03/2009 ANAYELI BARON, DON S 788.1 Dysuria 11/03/2009 SAMANTHA GUADALUPE APRNA S 595.0 Cystitis Acute 11/03/2009 ANAYELI BARON, DON S 788.1 Dysuria 11/03/2009 DOMINIQUE GUADALUPE APRNNDA S 595.0 Cystitis Acute 11/03/2009 DOMINIQUE GUADALUPE APRNNDA S 788.1 Dysuria 11/03/2009 WHITE DDS, STALIN J 595.0 Cystitis Acute 11/03/2009 WHITE DDS, STALIN J 788.1 Dysuria 11/03/2009 SAMANTHA GUADALUPE APRNA S 595.0 Cystitis Acute 11/03/2009 DOMINIQUE GUADALUPE APRNNDA S 788.1 Dysuria 12/10/2009 SAMANTHA GUADALUPE APRNA S 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, TOBACCO USE DISORDER 12/10/2009 DON GUADALUPE APRN S V65.42 COUNSELING ON SUBSTANCE USE AND ABUSE 12/10/2009 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, TOBACCO USE DISORDER 12/10/2009 V65.42 COUNSELING ON SUBSTANCE USE AND ABUSE 12/10/2009 DON GUADALUPE APRN S 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, TOBACCO USE DISORDER 12/10/2009 DON GUADALUPE APRN S V65.42 COUNSELING ON SUBSTANCE USE AND ABUSE 12/10/2009 DON GUADALUPE APRN S 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, TOBACCO USE DISORDER 12/10/2009 DOMINIQUE GUADALUPE APRNNDA S V65.42 COUNSELING ON SUBSTANCE USE AND ABUSE 12/10/2009 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, TOBACCO USE DISORDER 12/10/2009 V65.42 COUNSELING ON SUBSTANCE USE AND ABUSE 12/10/2009 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, TOBACCO USE DISORDER 12/10/2009 V65.42 COUNSELING ON SUBSTANCE USE AND ABUSE 12/10/2009 MELISSA DAHL MD 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, TOBACCO USE DISORDER 12/10/2009 MELISSA DAHL MD V65.42 COUNSELING ON SUBSTANCE USE AND ABUSE 12/10/2009 DON GUADALUPE APRN S 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, TOBACCO USE DISORDER 12/10/2009 SAMANTHA GUADALUPE APRNA S V65.42 COUNSELING ON SUBSTANCE USE AND ABUSE 12/10/2009 NEISHA NEGRONS KACIE M 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, TOBACCO USE DISORDER 12/10/2009 NEISHA NEGRONSKACIE M V65.42 COUNSELING ON SUBSTANCE USE AND ABUSE 12/10/2009 DON GUADALUPE APRN S 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, TOBACCO USE DISORDER 12/10/2009 DON GUADALUPE APRN S V65.42 COUNSELING ON SUBSTANCE USE AND ABUSE 12/10/2009 DON GUADALUPE APRN S 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, TOBACCO USE DISORDER 12/10/2009 SAMANTHA GUADALUPE APRNA S V65.42 COUNSELING ON SUBSTANCE USE AND ABUSE 12/10/2009 DON GUADALUPE APRN S 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, TOBACCO USE DISORDER 12/10/2009 SAMANTHA GUADALUPE APRNA S V65.42 COUNSELING ON SUBSTANCE USE AND ABUSE 12/10/2009 SAMANTHA GUADALUPE APRNA S 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, TOBACCO USE DISORDER 12/10/2009 SAMANTHA GUADALUPE APRNA S V65.42 COUNSELING ON SUBSTANCE USE AND ABUSE 12/10/2009 EDD NEGRONSSTALIN J 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, TOBACCO USE DISORDER 12/10/2009 EDD NEGRONSSTALIN J V65.42 COUNSELING ON SUBSTANCE USE AND ABUSE 12/10/2009 DON GUADALUPE APRN S 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, TOBACCO USE DISORDER 12/10/2009 SAMANTHA GUADALUPE APRNA S V65.42 COUNSELING ON SUBSTANCE USE AND ABUSE 12/25/2009 Ot 786.50 12/25/2009 Ot 786.52 03/09/2010 DON GUADALUPE APRN S 780.8 GENERALIZED HYPERHIDROSIS 03/09/2010 DON GUADALUPE APRN S 786.50 Chest Pain 03/09/2010 780.8 GENERALIZED HYPERHIDROSIS 03/09/2010 786.50 Chest Pain 03/09/2010 ANAYELI MATTRESS FILLER, DON S 780.8 GENERALIZED HYPERHIDROSIS 03/09/2010 ANAYELI MATTRESS FILLER, ODN S 786.50 Chest Pain 03/09/2010 ANAYELI MATTRESS FILLER, DON S 780.8 GENERALIZED HYPERHIDROSIS 03/09/2010 ANAYELI MATTRESS FILLER, DON S 786.50 Chest Pain 03/09/2010 780.8 GENERALIZED HYPERHIDROSIS 03/09/2010 786.50 Chest Pain 03/09/2010 780.8 GENERALIZED HYPERHIDROSIS 03/09/2010 786.50 Chest Pain 03/09/2010 MELISSA DAHL MD 780.8 GENERALIZED HYPERHIDROSIS 03/09/2010 MELISSA DAHL MD 786.50 Chest Pain 03/09/2010 ANAYELI MATTRESS FILLER, DON S 780.8 GENERALIZED HYPERHIDROSIS 03/09/2010 ANAYELI MATTRESS FILLER, DON S 786.50 Chest Pain 03/09/2010 NEISHA DDSKACIE 780.8 GENERALIZED HYPERHIDROSIS 03/09/2010 KACIE DRIVER DDS 786.50 Chest Pain 03/09/2010 ANAYELI MATTRESS FILLER, DON S 780.8 GENERALIZED HYPERHIDROSIS 03/09/2010 ANAYELI MATTRESS FILLER, DON S 786.50 Chest Pain 03/09/2010 ANAYELI MATTRESS FILLER, DON S 780.8 GENERALIZED HYPERHIDROSIS 03/09/2010 ANAYELI MATTRESS FILLER, DON S 786.50 Chest Pain 03/09/2010 ANAYELI MATTRESS FILLER, DON S 780.8 GENERALIZED HYPERHIDROSIS 03/09/2010 ANAYELI MATTRESS FILLER, DON S 786.50 Chest Pain 03/09/2010 ANAYELI MATTRESS FILLER, DON S 780.8 GENERALIZED HYPERHIDROSIS 03/09/2010 ANAYELI MATTRESS FILLER, DON S 786.50 Chest Pain 03/09/2010 WHITE DDS, STALIN J 780.8 GENERALIZED HYPERHIDROSIS 03/09/2010 WHITE DDS, STALIN J 786.50 Chest Pain 03/09/2010 ANAYELI MATTRESS FILLER, DON S 780.8 GENERALIZED HYPERHIDROSIS 03/09/2010 ANAYELI MATTRESS FILLER, DON S 786.50 Chest Pain 03/10/2010 DON GUADALUPE APRN S V15.85 PERSONAL HISTORY OF CONTACT WITH AND (SUSPECTED) EXPOSURE TO POTENTIALLY HAZARDOUS BODY FLUIDS 03/10/2010 V15.85 PERSONAL HISTORY OF CONTACT WITH AND (SUSPECTED) EXPOSURE TO POTENTIALLY HAZARDOUS BODY FLUIDS 03/10/2010 DON GUADALUPE APRN S V15.85 PERSONAL HISTORY OF CONTACT WITH AND (SUSPECTED) EXPOSURE TO POTENTIALLY HAZARDOUS BODY FLUIDS 03/10/2010 DON GUADALUPE APRN S V15.85 PERSONAL HISTORY OF CONTACT WITH AND (SUSPECTED) EXPOSURE TO POTENTIALLY HAZARDOUS BODY FLUIDS 03/10/2010 V15.85 PERSONAL HISTORY OF CONTACT WITH AND (SUSPECTED) EXPOSURE TO POTENTIALLY HAZARDOUS BODY FLUIDS 03/10/2010 V15.85 PERSONAL HISTORY OF CONTACT WITH AND (SUSPECTED) EXPOSURE TO POTENTIALLY HAZARDOUS BODY FLUIDS 03/10/2010 MELISSA DAHL MD V15.85 PERSONAL HISTORY OF CONTACT WITH AND (SUSPECTED) EXPOSURE TO POTENTIALLY HAZARDOUS BODY FLUIDS 03/10/2010 DON GUADALUPE APRN S V15.85 PERSONAL HISTORY OF CONTACT WITH AND (SUSPECTED) EXPOSURE TO POTENTIALLY HAZARDOUS BODY FLUIDS 03/10/2010 KACIE DRIVER DDS V15.85 PERSONAL HISTORY OF CONTACT WITH AND (SUSPECTED) EXPOSURE TO POTENTIALLY HAZARDOUS BODY FLUIDS 03/10/2010 DON GUADALUPE APRN S V15.85 PERSONAL HISTORY OF CONTACT WITH AND (SUSPECTED) EXPOSURE TO POTENTIALLY HAZARDOUS BODY FLUIDS 03/10/2010 DON GUADALUPE APRN S V15.85 PERSONAL HISTORY OF CONTACT WITH AND (SUSPECTED) EXPOSURE TO POTENTIALLY HAZARDOUS BODY FLUIDS 03/10/2010 DON GUADALUPE APRN S V15.85 PERSONAL HISTORY OF CONTACT WITH AND (SUSPECTED) EXPOSURE TO POTENTIALLY HAZARDOUS BODY FLUIDS 03/10/2010 DON GUADALUPE APRN S V15.85 PERSONAL HISTORY OF CONTACT WITH AND (SUSPECTED) EXPOSURE TO POTENTIALLY HAZARDOUS BODY FLUIDS 03/10/2010 STALIN PUGA DDS V15.85 PERSONAL HISTORY OF CONTACT WITH AND (SUSPECTED) EXPOSURE TO POTENTIALLY HAZARDOUS BODY FLUIDS 03/10/2010 DON GUADALUPE APRN S V15.85 PERSONAL HISTORY OF CONTACT WITH AND (SUSPECTED) EXPOSURE TO POTENTIALLY HAZARDOUS BODY FLUIDS 03/17/2010 DON GUADALUPE APRN 414.01 CAD 03/17/2010 414.01 CAD 03/17/2010 ANAYELI MATTRESS FILLER, DON S 414.01 CAD 03/17/2010 ANAYELI MATTRESS FILLER, DON S 414.01 CAD 03/17/2010 414.01 CAD 03/17/2010 414.01 CAD 03/17/2010 MELISSA DAHL MD 414.01 CAD 03/17/2010 ANAYELI MATTRESS FILLER, DON S 414.01 CAD 03/17/2010 KACIE DRIVER DDS 414.01 CAD 03/17/2010 ANAYELI MATTRESS FILLER, DON S 414.01 CAD 03/17/2010 ANAYELI MATTRESS FILLER, DON S 414.01 CAD 03/17/2010 ANAYELI MATTRESS FILLER, DON S 414.01 CAD 03/17/2010 ANAYELI MATTRESS FILLER, DON S 414.01 CAD 03/17/2010 STALIN PUGA DDS 414.01 CAD 03/17/2010 ANAYELI MATTRESS FILLER, DON S 414.01 CAD 03/19/2010 Ot 300.02 03/19/2010 Ot 305.22 03/19/2010 Ot 724.5 03/19/2010 Ot 729.1 03/19/2010 Ot 786.59 03/19/2010 Ot V17.49 03/19/2010 Ot V58.69 07/20/2010 ANAYELI BARON, DON S 847.9 Sprain/strain Back Unspec 07/20/2010 847.9 Sprain/strain Back Unspec 07/20/2010 ANAYELI BARON DON S 847.9 Sprain/strain Back Unspec 07/20/2010 DOMINIQUE GUADALUPE APRNNDA S 847.9 Sprain/strain Back Unspec 07/20/2010 847.9 Sprain/strain Back Unspec 07/20/2010 847.9 Sprain/strain Back Unspec 07/20/2010 MELISSA DAHL MD 847.9 Sprain/strain Back Unspec 07/20/2010 DOMINIQUE GUADALUPE APRNNDA S 847.9 Sprain/strain Back Unspec 07/20/2010 KACIE DRIVER DDS 847.9 Sprain/strain Back Unspec 07/20/2010 DOMINIQUE GUADALUPE APRNNDA S 847.9 Sprain/strain Back Unspec 07/20/2010 ANAYELI MATTRESS FILLER, DON S 847.9 Sprain/strain Back Unspec 07/20/2010 ANAYELI MATTRESS FILLER, DON S 847.9 Sprain/strain Back Unspec 07/20/2010 ANAYELI MATTRESS FILLER, DON S 847.9 Sprain/strain Back Unspec 07/20/2010 WHITE DDS, STALIN J 847.9 Sprain/strain Back Unspec 07/20/2010 ANAYELI MATTRESS FILLER, DON S 847.9 Sprain/strain Back Unspec 08/06/2010 ANAYELI MATTRESS FILLER, DON S 682.9 Cellulitis And Abscess Of Unspecified Sites 08/06/2010 682.9 Cellulitis And Abscess Of Unspecified Sites 08/06/2010 ANAYELI MATTRESS FILLER, DON S 682.9 Cellulitis And Abscess Of Unspecified Sites 08/06/2010 ANAYELI MATTRESS FILLER, DON S 682.9 Cellulitis And Abscess Of Unspecified Sites 08/06/2010 682.9 Cellulitis And Abscess Of Unspecified Sites 08/06/2010 682.9 Cellulitis And Abscess Of Unspecified Sites 08/06/2010 MELISSA DAHL MD 682.9 Cellulitis And Abscess Of Unspecified Sites 08/06/2010 ANAYELI MATTRESS FILLER, DON S 682.9 Cellulitis And Abscess Of Unspecified Sites 08/06/2010 KACIE DRIVER DDS 682.9 Cellulitis And Abscess Of Unspecified Sites 08/06/2010 ANAYELI MATTRESS FILLER, DON S 682.9 Cellulitis And Abscess Of Unspecified Sites 08/06/2010 ANAYELI MATTRESS FILLER, DON S 682.9 Cellulitis And Abscess Of Unspecified Sites 08/06/2010 ANAYELI MATTRESS FILLER, DON S 682.9 Cellulitis And Abscess Of Unspecified Sites 08/06/2010 ANAYELI MATTRESS FILLER, DON S 682.9 Cellulitis And Abscess Of Unspecified Sites 08/06/2010 EDD SANCHEZ, STALIN Gordon 682.9 Cellulitis And Abscess Of Unspecified Sites 08/06/2010 ANAYELI MATTRESS FILLER, DON S 682.9 Cellulitis And Abscess Of Unspecified Sites 09/02/2010 ANAYELI MATTRESS FILLER, DON S 611.71 Breast Pain 09/02/2010 ANAYELI MATTRESS FILLER, DON S 787.3 Gas/bloating Pain 09/02/2010 ANAYELI MATTRESS FILLER, DON S 789.03 Abdominal Pain Right Lower Quadrant 09/02/2010 611.71 Breast Pain 09/02/2010 787.3 Gas/bloating Pain 09/02/2010 789.03 Abdominal Pain Right Lower Quadrant 09/02/2010 ANAYELI MATTRESS FILLER, DON S 611.71 Breast Pain 09/02/2010 ANAYELI MATTRESS FILLER, DON S 787.3 Gas/bloating Pain 09/02/2010 ANAYELI MATTRESS FILLER, DON S 789.03 Abdominal Pain Right Lower Quadrant 09/02/2010 ANAYELI MATTRESS FILLER, DON S 611.71 Breast Pain 09/02/2010 ANAYELI MATTRESS FILLER, DON S 787.3 Gas/bloating Pain 09/02/2010 ANAYELI PATN, DON S 789.03 Abdominal Pain Right Lower Quadrant 09/02/2010 611.71 Breast Pain 09/02/2010 787.3 Gas/bloating Pain 09/02/2010 789.03 Abdominal Pain Right Lower Quadrant 09/02/2010 611.71 Breast Pain 09/02/2010 787.3 Gas/bloating Pain 09/02/2010 789.03 Abdominal Pain Right Lower Quadrant 09/02/2010 MELISSA DAHL MD 611.71 Breast Pain 09/02/2010 MELISSA DAHL MD 787.3 Gas/bloating Pain 09/02/2010 MELISSA DAHL MD 789.03 Abdominal Pain Right Lower Quadrant 09/02/2010 ANAYELI PATN, DON S 611.71 Breast Pain 09/02/2010 ANAYELI PATN, DON S 787.3 Gas/bloating Pain 09/02/2010 ANAYELI BARON, DON S 789.03 Abdominal Pain Right Lower Quadrant 09/02/2010 KACIE DRIVER DDS 611.71 Breast Pain 09/02/2010 NEISHA SANCHEZ, KACIE Fontanez 787.3 Gas/bloating Pain 09/02/2010 NEISHA SANCHEZ, KACIE Fontanez 789.03 Abdominal Pain Right Lower Quadrant 09/02/2010 ANAYELI BARON, DON S 611.71 Breast Pain 09/02/2010 ANAYELI MATTRESS FILLER, DON S 787.3 Gas/bloating Pain 09/02/2010 ANAYELI MATTRESS FILLER, DON S 789.03 Abdominal Pain Right Lower Quadrant 09/02/2010 ANAYELI MATTRESS FILLER, DON S 611.71 Breast Pain 09/02/2010 ANAYELI MATTRESS FILLER, DON S 787.3 Gas/bloating Pain 09/02/2010 ANAYELI MATTRESS FILLER, DON S 789.03 Abdominal Pain Right Lower Quadrant 09/02/2010 ANAYELI MATTRESS FILLER, DON S 611.71 Breast Pain 09/02/2010 ANAYELI MATTRESS FILLER, DON S 787.3 Gas/bloating Pain 09/02/2010 ANAYELI MATTRESS FILLER, DON S 789.03 Abdominal Pain Right Lower Quadrant 09/02/2010 ANAYELI MATTRESS FILLER, DON S 611.71 Breast Pain 09/02/2010 ANAYELI MATTRESS FILLER, DON S 787.3 Gas/bloating Pain 09/02/2010 ANAYELI MATTRESS FILLER, DON S 789.03 Abdominal Pain Right Lower Quadrant 09/02/2010 WHITE DDS, STALIN J 611.71 Breast Pain 09/02/2010 WHITE DDS, STALIN J 787.3 Gas/bloating Pain 09/02/2010 WHITE DDS, STALIN J 789.03 Abdominal Pain Right Lower Quadrant 09/02/2010 ANAYELI MATTRESS FILLER, DON S 611.71 Breast Pain 09/02/2010 ANAYELI MATTRESS FILLER, DON S 787.3 Gas/bloating Pain 09/02/2010 ANAYELI MATTRESS FILLER, DON S 789.03 Abdominal Pain Right Lower Quadrant 11/10/2010 ANAYELI MATTRESS FILLER, DON S 611.72 Breast Lump Or Mass 11/10/2010 ANAYELI MATTRESS FILLER, DON S 799.22 Irritibility 11/10/2010 611.72 Breast Lump Or Mass 11/10/2010 799.22 Irritibility 11/10/2010 ANAYELI MATTRESS FILLER, DON S 611.72 Breast Lump Or Mass 11/10/2010 ANAYELI MATTRESS FILLER, DON S 799.22 Irritibility 11/10/2010 ANAYELI MATTRESS FILLER, DON S 611.72 Breast Lump Or Mass 11/10/2010 ANAYELI MATTRESS FILLER, DON S 799.22 Irritibility 11/10/2010 611.72 Breast Lump Or Mass 11/10/2010 799.22 Irritibility 11/10/2010 611.72 Breast Lump Or Mass 11/10/2010 799.22 Irritibility 11/10/2010 MELISSA DAHL MD 611.72 Breast Lump Or Mass 11/10/2010 MELISSA DAHL MD 799.22 Irritibility 11/10/2010 ANAYELI MATTRESS FILLER, DON S 611.72 Breast Lump Or Mass 11/10/2010 ANAYELI MATTRESS FILLER, DON S 799.22 Irritibility 11/10/2010 NEISHA DDS, KACIE M 611.72 Breast Lump Or Mass 11/10/2010 NEISHA DDS, KACIE M 799.22 Irritibility 11/10/2010 ANAYELI MATTRESS FILLER, DON S 611.72 Breast Lump Or Mass 11/10/2010 ANAYELI MATTRESS FILLER, DON S 799.22 Irritibility 11/10/2010 ANAYELI MATTRESS FILLER, DON S 611.72 Breast Lump Or Mass 11/10/2010 ANAYELI MATTRESS FILLER, DON S 799.22 Irritibility 11/10/2010 ANAYELI MATTRESS FILLER, DON S 611.72 Breast Lump Or Mass 11/10/2010 ANAYELI MATTRESS FILLER, DON S 799.22 Irritibility 11/10/2010 ANAYELI MATTRESS FILLER, DON S 611.72 Breast Lump Or Mass 11/10/2010 ANAYELI MATTRESS FILLER, DON S 799.22 Irritibility 11/10/2010 WHITE DDS, STALIN J 611.72 Breast Lump Or Mass 11/10/2010 WHITE DDS, STALIN J 799.22 Irritibility 11/10/2010 ANAYELI MATTRESS FILLER, DON S 611.72 Breast Lump Or Mass 11/10/2010 ANAYELI MATTRESS FILLER, DON S 799.22 Irritibility 01/11/2011 Ot 300.00 01/11/2011 Ot 784.0 01/11/2011 Ot 847.0 01/11/2011 Ot 920 01/11/2011 Ot 959.09 01/11/2011 Ot E000.8 01/11/2011 Ot E849.0 01/11/2011 Ot E917.9 03/01/2011 ANAYELI MATTRESS FILLER, DON S 719.41 Shoulder Joint Pain 03/01/2011 ANAYELI MATTRESS FILLER, DON S 729.5 Arm Pain 03/01/2011 719.41 Shoulder Joint Pain 03/01/2011 729.5 Arm Pain 03/01/2011 ANAYELI BARON, DON S 719.41 Shoulder Joint Pain 03/01/2011 ANAYELI BARON, DON S 729.5 Arm Pain 03/01/2011 ANAYELI BARON, DON S 719.41 Shoulder Joint Pain 03/01/2011 ANAYELI BARON, DON S 729.5 Arm Pain 03/01/2011 719.41 Shoulder Joint Pain 03/01/2011 729.5 Arm Pain 03/01/2011 719.41 Shoulder Joint Pain 03/01/2011 729.5 Arm Pain 03/01/2011 MELISSA DAHL MD 719.41 Shoulder Joint Pain 03/01/2011 MELISSA DAHL MD 729.5 Arm Pain 03/01/2011 ANAYELI BARON, DON S 719.41 Shoulder Joint Pain 03/01/2011 ANAYELI BARON DON S 729.5 Arm Pain 03/01/2011 KACIE DRIVER DDS 719.41 Shoulder Joint Pain 03/01/2011 KACIE DRIVER DDS 729.5 Arm Pain 03/01/2011 ANAYELI BARON, DON S 719.41 Shoulder Joint Pain 03/01/2011 ANAYELI BARON, DON S 729.5 Arm Pain 03/01/2011 ANAYELI BARON, DON S 719.41 Shoulder Joint Pain 03/01/2011 ANAYELI BARON, DON S 729.5 Arm Pain 03/01/2011 ANAYELI MATTRESS FILLER, DON S 719.41 Shoulder Joint Pain 03/01/2011 SAMANTHA GUADALUPE APRNA S 729.5 Arm Pain 03/01/2011 SAMANTHA GUADALUPE APRNA S 719.41 Shoulder Joint Pain 03/01/2011 DOMINIQUE GUADALUPE APRNNDA S 729.5 Arm Pain 03/01/2011 WHITE DDS, STALIN J 719.41 Shoulder Joint Pain 03/01/2011 WHITE DDS, STALIN J 729.5 Arm Pain 03/01/2011 SAMANTHA GUADALUPE APRNA S 719.41 Shoulder Joint Pain 03/01/2011 SAMANTHA GUADALUPE APRNA S 729.5 Arm Pain 08/09/2011 DON GUADALUPE APRN S 381.81 Eustachian Tube Dysfunction 08/09/2011 DON GUADALUPE APRN S 728.85 MUSCLE SPASM 08/09/2011 DON GUADALUPE APRN S 783.1 Weight Gain Abnormal 08/09/2011 381.81 Eustachian Tube Dysfunction 08/09/2011 728.85 MUSCLE SPASM 08/09/2011 783.1 Weight Gain Abnormal 08/09/2011 DON GUADALUPE APRN S 381.81 Eustachian Tube Dysfunction 08/09/2011 DON GUADALUPE APRN S 728.85 MUSCLE SPASM 08/09/2011 SAMANTHA UGADALUPE APRNA S 783.1 Weight Gain Abnormal 08/09/2011 DON GUADALUPE APRN S 381.81 Eustachian Tube Dysfunction 08/09/2011 DON GUADALUPE APRN S 728.85 MUSCLE SPASM 08/09/2011 DON GUADALUPE APRN S 783.1 Weight Gain Abnormal 08/09/2011 381.81 Eustachian Tube Dysfunction 08/09/2011 728.85 MUSCLE SPASM 08/09/2011 783.1 Weight Gain Abnormal 08/09/2011 381.81 Eustachian Tube Dysfunction 08/09/2011 728.85 MUSCLE SPASM 08/09/2011 783.1 Weight Gain Abnormal 08/09/2011 MELISSA DAHL MD 381.81 Eustachian Tube Dysfunction 08/09/2011 MELISSA DAHL MD 728.85 MUSCLE SPASM 08/09/2011 MELISSA DAHL MD 783.1 Weight Gain Abnormal 08/09/2011 ANAYELI BARON DON S 381.81 Eustachian Tube Dysfunction 08/09/2011 ANAYELI BARON, DON S 728.85 MUSCLE SPASM 08/09/2011 ANAYELI BARON, DON S 783.1 Weight Gain Abnormal 08/09/2011 NEISHA DDS, KACIE M 381.81 Eustachian Tube Dysfunction 08/09/2011 NEISHA DDS, KACIE M 728.85 MUSCLE SPASM 08/09/2011 NEISHA DDS, KACIE M 783.1 Weight Gain Abnormal 08/09/2011 ANAYELI BARON DON S 381.81 Eustachian Tube Dysfunction 08/09/2011 ANAYELI BARON DON S 728.85 MUSCLE SPASM 08/09/2011 ANAYELI BARON DON S 783.1 Weight Gain Abnormal 08/09/2011 ANAYELI BARON DON S 381.81 Eustachian Tube Dysfunction 08/09/2011 ANAYELI BARON, DON S 728.85 MUSCLE SPASM 08/09/2011 ANAYELI BARON, DON S 783.1 Weight Gain Abnormal 08/09/2011 ANAYELI BARON DON S 381.81 Eustachian Tube Dysfunction 08/09/2011 ANAYELI BARON, DON S 728.85 MUSCLE SPASM 08/09/2011 ANAYELI BARON DON S 783.1 Weight Gain Abnormal 08/09/2011 ANAYELI BARON, DON S 381.81 Eustachian Tube Dysfunction 08/09/2011 ANAYELI BARON DON S 728.85 MUSCLE SPASM 08/09/2011 ANAYELI BARON, DON S 783.1 Weight Gain Abnormal 08/09/2011 WHITE DDS, STALIN J 381.81 Eustachian Tube Dysfunction 08/09/2011 WHITE DDS, STALIN J 728.85 MUSCLE SPASM 08/09/2011 WHITE DDS, STALIN J 783.1 Weight Gain Abnormal 08/09/2011 ANAYELI BARON DON S 381.81 Eustachian Tube Dysfunction 08/09/2011 DON GUADALUPE APRN S 728.85 MUSCLE SPASM 08/09/2011 DON GUADALUPE APRN S 783.1 Weight Gain Abnormal 11/02/2011 DON GUADALUPE APRN S V76.2 Cervical Cancer Screening (pap Smear) 11/02/2011 V76.2 Cervical Cancer Screening (pap Smear) 11/02/2011 DON GUADALUPE APRN S V76.2 Cervical Cancer Screening (pap Smear) 11/02/2011 DON GUADALUPE APRN S V76.2 Cervical Cancer Screening (pap Smear) 11/02/2011 V76.2 Cervical Cancer Screening (pap Smear) 11/02/2011 V76.2 Cervical Cancer Screening (pap Smear) 11/02/2011 MELISSA DAHL MD V76.2 Cervical Cancer Screening (pap Smear) 11/02/2011 DON GUADALUPE APRN V76.2 Cervical Cancer Screening (pap Smear) 11/02/2011 KACIE DRIVER DDS V76.2 Cervical Cancer Screening (pap Smear) 11/02/2011 DON GUADALUPE APRN S V76.2 Cervical Cancer Screening (pap Smear) 11/02/2011 DON GUADALUPE APRN S V76.2 Cervical Cancer Screening (pap Smear) 11/02/2011 DON GUADALUPE APRN S V76.2 Cervical Cancer Screening (pap Smear) 11/02/2011 DON GUADALUPE APRN S V76.2 Cervical Cancer Screening (pap Smear) 11/02/2011 STALIN PUGA DDS V76.2 Cervical Cancer Screening (pap Smear) 11/02/2011 DON GUADALUPE APRN S V76.2 Cervical Cancer Screening (pap Smear) 11/02/2011 Ot 916.4 INSECT BITE HIP LEG 11/02/2011 Ot 959.5 FINGER INJURY NOS 11/02/2011 Ot E000.8 OTHER EXTERNAL CAUSE STATUS 11/02/2011 Ot E849.0 ACCIDENT IN HOME 11/02/2011 Ot E906.4 NONVENOM ARTHROPOD BITE 01/18/2012 DON GUADALUPE APRN 724.2 lower back pain 01/18/2012 724.2 lower back pain 01/18/2012 ANAYELI MATTRESS FILLER, DON S 724.2 lower back pain 01/18/2012 ANAYELI MATTRESS FILLER, DON S 724.2 lower back pain 01/18/2012 724.2 lower back pain 01/18/2012 724.2 lower back pain 01/18/2012 MELISSA DAHL MD 724.2 lower back pain 01/18/2012 ANAYELI MATTRESS FILLER, DON S 724.2 lower back pain 01/18/2012 KACIE DRIVER DDS 724.2 lower back pain 01/18/2012 ANAYELI MATTRESS FILLER, DON S 724.2 lower back pain 01/18/2012 ANAYELI MATTRESS FILLER, DON S 724.2 lower back pain 01/18/2012 ANAYELI MATTRESS FILLER, DON S 724.2 lower back pain 01/18/2012 ANAYELI MATTRESS FILLER, DON S 724.2 lower back pain 01/18/2012 STALIN PUGA DDS 724.2 lower back pain 01/18/2012 ANAYELI MATTRESS FILLER, DON S 724.2 lower back pain 02/01/2012 ANAYELI PATN, DON S V58.69 high risk medication 02/01/2012 V58.69 high risk medication 02/01/2012 ANAYELI BARON, DON S V58.69 high risk medication 02/01/2012 ANAYELI BARON, DON S V58.69 high risk medication 02/01/2012 V58.69 high risk medication 02/01/2012 V58.69 high risk medication 02/01/2012 MELISSA DAHL MD V58.69 high risk medication 02/01/2012 ANAYELI BARON, DON S V58.69 high risk medication 02/01/2012 KACIE DRIVER DDS V58.69 high risk medication 02/01/2012 ANAYELI PATN, DON S V58.69 high risk medication 02/01/2012 ANAYELI BARON, DON S V58.69 high risk medication 02/01/2012 ANAYELI PATN, DON S V58.69 high risk medication 02/01/2012 ANAYELI BARON, DON S V58.69 high risk medication 02/01/2012 WHITE DDS, STALIN J V58.69 high risk medication 02/01/2012 DON GUADALUPE APRN V58.69 high risk medication 05/28/2012 DON GUADALUPE APRN S 296.30 MAJOR DEPRESSIVE AFFECTIVE DISORDER RECURRENT EPISODE UNSPECIFIED DEGREE 05/28/2012 DON GUADALUPE APRN V04.81 Flu Dx (3 Yrs And Above, Im) 05/28/2012 DON GUADALUPE APRN S V18.0 FAMILY HISTORY OF DIABETES MELLITUS 05/28/2012 296.30 MAJOR DEPRESSIVE AFFECTIVE DISORDER RECURRENT EPISODE UNSPECIFIED DEGREE 05/28/2012 V04.81 Flu Dx (3 Yrs And Above, Im) 05/28/2012 V18.0 FAMILY HISTORY OF DIABETES MELLITUS 05/28/2012 DON UGADALUPE APRN 296.30 MAJOR DEPRESSIVE AFFECTIVE DISORDER RECURRENT EPISODE UNSPECIFIED DEGREE 05/28/2012 DON GUADALUPE APRN V04.81 Flu Dx (3 Yrs And Above, Im) 05/28/2012 DON GUADALUPE APRN S V18.0 FAMILY HISTORY OF DIABETES MELLITUS 05/28/2012 DON GUADALUPE APRN S 296.30 MAJOR DEPRESSIVE AFFECTIVE DISORDER RECURRENT EPISODE UNSPECIFIED DEGREE 05/28/2012 DON GUADALUPE APRN V04.81 Flu Dx (3 Yrs And Above, Im) 05/28/2012 DON GUADALUPE APRN S V18.0 FAMILY HISTORY OF DIABETES MELLITUS 05/28/2012 296.30 MAJOR DEPRESSIVE AFFECTIVE DISORDER RECURRENT EPISODE UNSPECIFIED DEGREE 05/28/2012 V04.81 Flu Dx (3 Yrs And Above, Im) 05/28/2012 V18.0 FAMILY HISTORY OF DIABETES MELLITUS 05/28/2012 296.30 MAJOR DEPRESSIVE AFFECTIVE DISORDER RECURRENT EPISODE UNSPECIFIED DEGREE 05/28/2012 V04.81 Flu Dx (3 Yrs And Above, Im) 05/28/2012 V18.0 FAMILY HISTORY OF DIABETES MELLITUS 05/28/2012 MELISSA DAHL MD 296.30 MAJOR DEPRESSIVE AFFECTIVE DISORDER RECURRENT EPISODE UNSPECIFIED DEGREE 05/28/2012 MELISSA DAHL MD V04.81 Flu Dx (3 Yrs And Above, Im) 05/28/2012 MELISSA DAHL MD V18.0 FAMILY HISTORY OF DIABETES MELLITUS 05/28/2012 ANAYELI TOD DNO S 296.30 MAJOR DEPRESSIVE AFFECTIVE DISORDER RECURRENT EPISODE UNSPECIFIED DEGREE 05/28/2012 ANAYELI MATTRESS FILLER, DON S V04.81 Flu Dx (3 Yrs And Above, Im) 05/28/2012 ANAYELIJORDEN PATNDOMINIQUEDON S V18.0 FAMILY HISTORY OF DIABETES MELLITUS 05/28/2012 NEISHA DDS, KACIE M 296.30 MAJOR DEPRESSIVE AFFECTIVE DISORDER RECURRENT EPISODE UNSPECIFIED DEGREE 05/28/2012 NEISHA DDS, KACIE M V04.81 Flu Dx (3 Yrs And Above, Im) 05/28/2012 NEISHA DDS, KACIE M V18.0 FAMILY HISTORY OF DIABETES MELLITUS 05/28/2012 ANAYELI TOD DON S 296.30 MAJOR DEPRESSIVE AFFECTIVE DISORDER RECURRENT EPISODE UNSPECIFIED DEGREE 05/28/2012 ANAYELI MATTRESS FILLER, DON S V04.81 Flu Dx (3 Yrs And Above, Im) 05/28/2012 DOMINIQUE GUADALUPE APRNNDA S V18.0 FAMILY HISTORY OF DIABETES MELLITUS 05/28/2012 DOMINIQUE GUADALUPE APRNNDA S 296.30 MAJOR DEPRESSIVE AFFECTIVE DISORDER RECURRENT EPISODE UNSPECIFIED DEGREE 05/28/2012 ANAYELI MATTRESS FILLERDOMINIQUE CraigNDA S V04.81 Flu Dx (3 Yrs And Above, Im) 05/28/2012 DOMINIQUE GUADALUPE APRNNDA S V18.0 FAMILY HISTORY OF DIABETES MELLITUS 05/28/2012 ANAYELI BARON DON S 296.30 MAJOR DEPRESSIVE AFFECTIVE DISORDER RECURRENT EPISODE UNSPECIFIED DEGREE 05/28/2012 DOMINIQUE GUADALUPE APRNNDA S V04.81 Flu Dx (3 Yrs And Above, Im) 05/28/2012 ANAYELI BARON DON S V18.0 FAMILY HISTORY OF DIABETES MELLITUS 05/28/2012 ANAYELI BARON DON S 296.30 MAJOR DEPRESSIVE AFFECTIVE DISORDER RECURRENT EPISODE UNSPECIFIED DEGREE 05/28/2012 ANAYELI BARON DON S V04.81 Flu Dx (3 Yrs And Above, Im) 05/28/2012 ANAYELI BARON DON S V18.0 FAMILY HISTORY OF DIABETES MELLITUS 05/28/2012 WHITE DDS, STALIN J 296.30 MAJOR DEPRESSIVE AFFECTIVE DISORDER RECURRENT EPISODE UNSPECIFIED DEGREE 05/28/2012 WHITE DDS, STALIN J V04.81 Flu Dx (3 Yrs And Above, Im) 05/28/2012 WHITE DDS, STALIN J V18.0 FAMILY HISTORY OF DIABETES MELLITUS 05/28/2012 ANAYELI MATTRESS FILLER, DON S 296.30 MAJOR DEPRESSIVE AFFECTIVE DISORDER RECURRENT EPISODE UNSPECIFIED DEGREE 05/28/2012 ANAYELI MATTRESS FILLER, DON S V04.81 Flu Dx (3 Yrs And Above, Im) 05/28/2012 ANAYELI MATTRESS FILLER, DON S V18.0 FAMILY HISTORY OF DIABETES MELLITUS 06/05/2012 ANAYELI MATTRESS FILLER, DON S 999.52 Other Serum Reaction Due To Vaccination 06/05/2012 999.52 Other Serum Reaction Due To Vaccination 06/05/2012 ANAYELI MATTRESS FILLER, DON S 999.52 Other Serum Reaction Due To Vaccination 06/05/2012 ANAYELI MATTRESS FILLER, DON S 999.52 Other Serum Reaction Due To Vaccination 06/05/2012 999.52 Other Serum Reaction Due To Vaccination 06/05/2012 999.52 Other Serum Reaction Due To Vaccination 06/05/2012 MELISSA DAHL MD 999.52 Other Serum Reaction Due To Vaccination 06/05/2012 ANAYELI MATTRESS FILLER, DON S 999.52 Other Serum Reaction Due To Vaccination 06/05/2012 NEISHA NEGRONS, KACIE Fontanez 999.52 Other Serum Reaction Due To Vaccination 06/05/2012 ANAYELI MATTRESS FILLER, DON S 999.52 Other Serum Reaction Due To Vaccination 06/05/2012 ANAYELI MATTRESS FILLER, DON S 999.52 Other Serum Reaction Due To Vaccination 06/05/2012 ANAYELI MATTRESS FILLER, DON S 999.52 Other Serum Reaction Due To Vaccination 06/05/2012 ANAYELI MATTRESS FILLER, DON S 999.52 Other Serum Reaction Due To Vaccination 06/05/2012 EDD DDS, STALIN Gordon 999.52 Other Serum Reaction Due To Vaccination 06/05/2012 ANAYELI MATTRESS FILLER, DON S 999.52 Other Serum Reaction Due To Vaccination 06/27/2012 ANAYELI MATTRESS FILLER, DON S 719.47 PAIN IN JOINT INVOLVING ANKLE AND FOOT 06/27/2012 719.47 PAIN IN JOINT INVOLVING ANKLE AND FOOT 06/27/2012 ANAYELI MATTRESS FILLER, DON S 719.47 PAIN IN JOINT INVOLVING ANKLE AND FOOT 06/27/2012 ANAYELI MATTRESS FILLER, DON S 719.47 PAIN IN JOINT INVOLVING ANKLE AND FOOT 06/27/2012 719.47 PAIN IN JOINT INVOLVING ANKLE AND FOOT 06/27/2012 719.47 PAIN IN JOINT INVOLVING ANKLE AND FOOT 06/27/2012 MELISSA DAHL MD 719.47 PAIN IN JOINT INVOLVING ANKLE AND FOOT 06/27/2012 ANAYELI PATN, DON S 719.47 PAIN IN JOINT INVOLVING ANKLE AND FOOT 06/27/2012 KACIE DRIVER DDS 719.47 PAIN IN JOINT INVOLVING ANKLE AND FOOT 06/27/2012 ANAYELI MATTRESS FILLER, DON S 719.47 PAIN IN JOINT INVOLVING ANKLE AND FOOT 06/27/2012 ANAYELI MATTRESS FILLER, ODN S 719.47 PAIN IN JOINT INVOLVING ANKLE AND FOOT 06/27/2012 ANAYELI MATTRESS FILLER, DON S 719.47 PAIN IN JOINT INVOLVING ANKLE AND FOOT 06/27/2012 ANAYELI MATTRESS FILLER, DON S 719.47 PAIN IN JOINT INVOLVING ANKLE AND FOOT 06/27/2012 STALIN PUGA DDS 719.47 PAIN IN JOINT INVOLVING ANKLE AND FOOT 06/27/2012 ANAYELI MATTRESS FILLER, DON S 719.47 PAIN IN JOINT INVOLVING ANKLE AND FOOT 07/25/2012 ANAYELI MATTRESS FILLER, DON S 729.5 PAIN IN LIMB 07/25/2012 729.5 PAIN IN LIMB 07/25/2012 ANAYELI MATTRESS FILLER, DON S 729.5 PAIN IN LIMB 07/25/2012 ANAYELI MATTRESS FILLER, DON S 729.5 PAIN IN LIMB 07/25/2012 729.5 PAIN IN LIMB 07/25/2012 729.5 PAIN IN LIMB 07/25/2012 MELISSA DAHL MD 729.5 PAIN IN LIMB 07/25/2012 ANAYELI MATTRESS FILLER, DON S 729.5 PAIN IN LIMB 07/25/2012 KACIE DRIVER DDS 729.5 PAIN IN LIMB 07/25/2012 ANAYELI MATTRESS FILLER, DON S 729.5 PAIN IN LIMB 07/25/2012 ANAYELI MATTRESS FILLER, DON S 729.5 PAIN IN LIMB 07/25/2012 ANAYELI BARON, DON S 729.5 PAIN IN LIMB 07/25/2012 ANAYELI BARON, DON S 729.5 PAIN IN LIMB 07/25/2012 EDD NEGRONS, STALIN J 729.5 PAIN IN LIMB 09/17/2012 783.1 ABNORMAL WEIGHT GAIN 09/17/2012 ANAYELI MATTRESS FILLER, DON S 783.1 ABNORMAL WEIGHT GAIN 09/17/2012 ANAYELI PATN, DON S 783.1 ABNORMAL WEIGHT GAIN 09/17/2012 783.1 ABNORMAL WEIGHT GAIN 09/17/2012 783.1 ABNORMAL WEIGHT GAIN 09/17/2012 MELISSA DAHL MD 783.1 ABNORMAL WEIGHT GAIN 09/17/2012 ANAYELI BARON, DON S 783.1 ABNORMAL WEIGHT GAIN 09/17/2012 KACIE DRIVER DDS 783.1 ABNORMAL WEIGHT GAIN 09/17/2012 ANAYELI BARON, DON S 783.1 ABNORMAL WEIGHT GAIN 09/17/2012 ANAYELI BARON, DON S 783.1 ABNORMAL WEIGHT GAIN 09/17/2012 ANAYELI MATTRESS FILLER, DON S 783.1 ABNORMAL WEIGHT GAIN 09/17/2012 ANAYELI MATTRESS FILLER, DON S 783.1 ABNORMAL WEIGHT GAIN 09/17/2012 EDD SANCHEZ, STALIN Gordon 783.1 ABNORMAL WEIGHT GAIN 10/30/2012 ANAYELI BARON, DON S V16.3 FAM HX CANCER, BREAST 10/30/2012 V16.3 FAM HX CANCER , BREAST 10/30/2012 V16.3 FAM HX CANCER , BREAST 10/30/2012 MELISSA DAHL MD V16.3 FAM HX CANCER, BREAST 10/30/2012 ANAYELI BARON, DON S V16.3 FAM HX CANCER, BREAST 10/30/2012 KACIE DRIVER DDS V16.3 FAM HX CANCER, BREAST 10/30/2012 ANAYELI BARON, DON S V16.3 FAM HX CANCER, BREAST 10/30/2012 ANAYELI BARON, DON S V16.3 FAM HX CANCER, BREAST 10/30/2012 ANAYELI BARON, DON S V16.3 FAM HX CANCER, BREAST 10/30/2012 DON GUADALUPE APRN S V16.3 FAM HX CANCER, BREAST 10/30/2012 STALIN PUGA DDS V16.3 FAM HX CANCER, BREAST 02/19/2013 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 02/19/2013 309.0 ADJUSTMENT DISORDER WITH DEPRESSED MOOD 02/19/2013 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 02/19/2013 309.0 ADJUSTMENT DISORDER WITH DEPRESSED MOOD 02/19/2013 MELISSA DAHL MD 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 02/19/2013 MELISSA DAHL MD 309.0 ADJUSTMENT DISORDER WITH DEPRESSED MOOD 02/19/2013 SAMANTHA GUADALUPE APRNA S 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 02/19/2013 SAMANTHA GUADALUPE APRNA S 309.0 ADJUSTMENT DISORDER WITH DEPRESSED MOOD 02/19/2013 KACIE DRIVER DDS 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 02/19/2013 KACIE DRIVER DDS 309.0 ADJUSTMENT DISORDER WITH DEPRESSED MOOD 02/19/2013 SAMANTHA GUADALUPE APRNA S 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 02/19/2013 SAMANTHA GUADALUPE APRNA S 309.0 ADJUSTMENT DISORDER WITH DEPRESSED MOOD 02/19/2013 SAMANTHA GUADALUPE APRNA S 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 02/19/2013 DOMINIQUE GUADALUPE APRNNDA S 309.0 ADJUSTMENT DISORDER WITH DEPRESSED MOOD 02/19/2013 SAMANTHA GUADALUPE APRNA S 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 02/19/2013 DOMINIQUE GUADALUPE APRNNDA S 309.0 ADJUSTMENT DISORDER WITH DEPRESSED MOOD 02/19/2013 DOMINIQUE GUADALUPE APRNNDA S 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 02/19/2013 DOMINIQUE GUADALUPE APRNNDA S 309.0 ADJUSTMENT DISORDER WITH DEPRESSED MOOD 02/19/2013 STALIN PUGA DDS 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 02/19/2013 STALIN PUGA DDS 309.0 ADJUSTMENT DISORDER WITH DEPRESSED MOOD 02/22/2013 599.70 HEMATURIA 02/22/2013 724.4 THORACIC OR LUMBOSACRAL NEURITIS OR RADICULITIS UNSPECIFIED 02/22/2013 599.70 HEMATURIA 02/22/2013 724.4 THORACIC OR LUMBOSACRAL NEURITIS OR RADICULITIS UNSPECIFIED 02/22/2013 MELISSA DAHL MD 599.70 HEMATURIA 02/22/2013 MELISSA DAHL MD 724.4 THORACIC OR LUMBOSACRAL NEURITIS OR RADICULITIS UNSPECIFIED 02/22/2013 ANAYELI PATN, DON S 599.70 HEMATURIA 02/22/2013 ANAYELI MATTRESS FILLER, DON S 724.4 THORACIC OR LUMBOSACRAL NEURITIS OR RADICULITIS UNSPECIFIED 02/22/2013 KACIE DRIVER DDS 599.70 HEMATURIA 02/22/2013 KACIE DRIVER DDS 724.4 THORACIC OR LUMBOSACRAL NEURITIS OR RADICULITIS UNSPECIFIED 02/22/2013 ANAYELI MATTRESS FILLER, DON S 599.70 HEMATURIA 02/22/2013 ANAYELI PATN, DON S 724.4 THORACIC OR LUMBOSACRAL NEURITIS OR RADICULITIS UNSPECIFIED 02/22/2013 ANAYELI MATTRESS FILLER, DON S 599.70 HEMATURIA 02/22/2013 ANAYELI MATTRESS FILLER, DON S 724.4 THORACIC OR LUMBOSACRAL NEURITIS OR RADICULITIS UNSPECIFIED 02/22/2013 ANAYELI MATTRESS FILLER, DON S 599.70 HEMATURIA 02/22/2013 ANAYELI MATTRESS FILLER, DON S 724.4 THORACIC OR LUMBOSACRAL NEURITIS OR RADICULITIS UNSPECIFIED 02/22/2013 ANAYELI MATTRESS FILLER, DON S 599.70 HEMATURIA 02/22/2013 ANAYELI MATTRESS FILLER, DON S 724.4 THORACIC OR LUMBOSACRAL NEURITIS OR RADICULITIS UNSPECIFIED 02/22/2013 STALIN PUGA DDS 599.70 HEMATURIA 02/22/2013 STALIN PUGA DDS 724.4 THORACIC OR LUMBOSACRAL NEURITIS OR RADICULITIS UNSPECIFIED 04/01/2013 NERIS BOSS APRN Ot 338.29 OTHER CHRONIC PAIN 04/01/2013 NERIS BOSS APRN Ot 724.5 BACKACHE NOS 04/03/2013 724.5 BACKACHE UNSPECIFIED 04/03/2013 MELISSA DAHL MD 724.5 BACKACHE UNSPECIFIED 04/03/2013 ANAYELI PATN, DON S 724.5 BACKACHE UNSPECIFIED 04/03/2013 KACIE DRIVER DDS 724.5 BACKACHE UNSPECIFIED 04/03/2013 ANAYELI MATTRESS FILLER, DON S 724.5 BACKACHE UNSPECIFIED 04/03/2013 ANAYELI MATTRESS FILLER, DON S 724.5 BACKACHE UNSPECIFIED 04/03/2013 ANAYELI MATTRESS FILLER, DON S 724.5 BACKACHE UNSPECIFIED 04/03/2013 ANAYELI MATTRESS FILLER, DNO S 724.5 BACKACHE UNSPECIFIED 04/03/2013 STALIN PUGA DDS 724.5 BACKACHE UNSPECIFIED 06/18/2013 DON GUADALUPE REED FIXER Ot 724.4 LUMBOSACRAL NEURITIS NOS 06/18/2013 DON GUADALUPE REED FIXER Ot V57.1 PHYSICAL THERAPY NEC 09/18/2013 ANAYELI MATTRESS FILLER, DON S 272.4 HYPERLIPIDEMIA 09/18/2013 ANAYELI MATTRESS FILLER, DON S 719.41 PAIN- SHOULDER 09/18/2013 ANAYELI MATTRESS FILLER, DON S 780.79 fatigue 09/18/2013 ANAYELI MATTRESS FILLER, DON S 784.0 HEADACHE 09/18/2013 ANAYELI MATTRESS FILLER, DON S 787.91 DIARRHEA 09/18/2013 ANAYELI MATTRESS FILLER, DON S 272.4 HYPERLIPIDEMIA 09/18/2013 ANAYELI MATTRESS FILLER, DON S 719.41 PAIN- SHOULDER 09/18/2013 ANAYELI MATTRESS FILLER, DON S 780.79 fatigue 09/18/2013 ANAYELI MATTRESS FILLER, DON S 784.0 HEADACHE 09/18/2013 ANAYELI MATTRESS FILLER, DON S 787.91 DIARRHEA 09/18/2013 ANAYELI MATTRESS FILLER, DON S 272.4 HYPERLIPIDEMIA 09/18/2013 ANAYELI MATTRESS FILLER, DON S 719.41 PAIN- SHOULDER 09/18/2013 ANAYELI MATTRESS FILLER, DON S 780.79 fatigue 09/18/2013 DOMINIQUE GUADALUPE APRNNDA S 784.0 HEADACHE 09/18/2013 ANAYELI BARON, DON S 787.91 DIARRHEA 09/18/2013 DOMINIQUE GUADALUPE APRNNDA S 272.4 HYPERLIPIDEMIA 09/18/2013 ANAYELI BARON, DON S 719.41 PAIN- SHOULDER 09/18/2013 DOMINIQUE GUADALUPE APRNNDA S 780.79 fatigue 09/18/2013 DOMINIQUE GUADALUPE APRNNDA S 784.0 HEADACHE 09/18/2013 ANAYELI BARON, DON S 787.91 DIARRHEA 09/18/2013 WHITE DDS, STALIN J 272.4 HYPERLIPIDEMIA 09/18/2013 WHITE DDS, STALIN J 719.41 PAIN- SHOULDER 09/18/2013 WHITE DDS, STALIN J 780.79 fatigue 09/18/2013 WHITE DDS, STALIN J 784.0 HEADACHE 09/18/2013 WHITE DDS, STALIN J 787.91 DIARRHEA 03/06/2014 MARIANNE STOVER MD Ot 724.2 LUMBAGO 03/06/2014 MARIANNE STOVER MD Ot 724.4 LUMBOSACRAL NEURITIS NOS 03/06/2014 MARIANNE STOVER MD Ot 784.0 HEADACHE 03/26/2014 RK FU MD Ot V57.1 PHYSICAL THERAPY NEC 03/26/2014 RK FU MD Ot V58.78 AFTERCARE POST SURGERY MUSCULOSKELETAL S 03/31/2014 RK FU MD Ot 724.9 BACK DISORDER NOS 03/31/2014 RK FU MD Ot V57.1 PHYSICAL THERAPY NEC 06/26/2014 Ot 461.1 06/26/2014 Ot 729.1 06/26/2014 Ot 784.0 06/26/2014 Ot 727.61 06/26/2014 Ot 722.4 06/26/2014 Ot 793.80 06/26/2014 Ot V16.3 06/26/2014 Ot 595.0 06/26/2014 Ot 414.00 06/26/2014 Ot 610.4 06/26/2014 Ot 787.02 06/26/2014 Ot 789.01 06/26/2014 Ot 610.0 06/26/2014 Ot 611.72 06/26/2014 Ot V16.3 06/26/2014 Ot 272.0 06/26/2014 Ot 305.1 06/26/2014 Ot 611.72 06/26/2014 Ot 729.1 06/26/2014 Ot V16.3 06/26/2014 Ot V45.77 06/26/2014 Ot 272.0 06/26/2014 Ot 300.4 06/26/2014 Ot 729.1 06/26/2014 Ot V16.3 06/26/2014 Ot V58.69 06/26/2014 Ot 611.72 06/26/2014 Ot 724.2 06/26/2014 Ot V45.4 06/26/2014 DON GUADALUPE Ot V76.12 06/26/2014 SUHAS WILLETT MD Ot 788.1 06/26/2014 SUHAS WILLETT MD Ot 788.41 06/28/2014 SUHAS WILLETT MD Ot 784.0 07/10/2014 SUHAS WILLETT MD Ot 784.0 09/01/2014 Ot 727.61 09/01/2014 Ot 722.4 09/01/2014 Ot 793.80 09/01/2014 Ot V16.3 09/01/2014 Ot 595.0 09/01/2014 Ot 414.00 09/01/2014 Ot 610.4 09/01/2014 Ot 787.02 09/01/2014 Ot 789.01 09/01/2014 Ot 610.0 09/01/2014 Ot 611.72 09/01/2014 Ot V16.3 09/01/2014 Ot 272.0 09/01/2014 Ot 305.1 09/01/2014 Ot 611.72 09/01/2014 Ot 729.1 09/01/2014 Ot V16.3 09/01/2014 Ot V45.77 09/01/2014 Ot 272.0 09/01/2014 Ot 300.4 09/01/2014 Ot 729.1 09/01/2014 Ot V16.3 09/01/2014 Ot V58.69 09/01/2014 Ot 611.72 09/01/2014 Ot 724.2 09/01/2014 Ot V45.4 09/01/2014 DON GUADALUPE Ot V76.12 09/01/2014 SUHAS WILLETT MD Ot 788.1 09/01/2014 SUHAS WILLETT MD Ot 788.41 09/01/2014 SUHAS WILLETT MD Ot 784.0 09/01/2014 YISSEL MARSHALL, CINDY Gordon Ot 278.00 09/01/2014 CINDY DEY MD Ot 305.1 09/01/2014 YISSEL MARSHALL, CINDY Gordon Ot 780.79 09/01/2014 CINDY DEY MD Ot 786.50 09/02/2014 Ot 727.61 09/02/2014 Ot 722.4 09/02/2014 Ot 793.80 09/02/2014 Ot V16.3 09/02/2014 Ot 595.0 09/02/2014 Ot 414.00 09/02/2014 Ot 610.4 09/02/2014 Ot 787.02 09/02/2014 Ot 789.01 09/02/2014 Ot 610.0 09/02/2014 Ot 611.72 09/02/2014 Ot V16.3 09/02/2014 Ot 272.0 09/02/2014 Ot 305.1 09/02/2014 Ot 611.72 09/02/2014 Ot 729.1 09/02/2014 Ot V16.3 09/02/2014 Ot V45.77 09/02/2014 Ot 272.0 09/02/2014 Ot 300.4 09/02/2014 Ot 729.1 09/02/2014 Ot V16.3 09/02/2014 Ot V58.69 09/02/2014 Ot 611.72 09/02/2014 Ot 724.2 09/02/2014 Ot V45.4 09/02/2014 DON GUADALUPE Ot V76.12 09/02/2014 SUHAS WILLETT MD Ot 788.1 09/02/2014 SUHAS WILLETT MD Ot 788.41 09/02/2014 SUHAS WILLETT MD Ot 784.0 09/02/2014 CINDY DEY MD Ot 278.00 09/02/2014 CINDY DEY MD Ot 305.1 09/02/2014 CIDNY DEY MD Ot 780.79 09/02/2014 CINDY DEY MD Ot 786.50 09/11/2014 CINDY DEY MD Ot 278.00 09/11/2014 CINDY DEY MD Ot 305.1 09/11/2014 CINDY DEY MD Ot 780.79 09/11/2014 CINDY DEY MD Ot 786.50 09/17/2014 CINDY DEY MD Ot 278.00 09/17/2014 CINDY DEY MD Ot 305.1 09/17/2014 CINDY DEY MD Ot 780.79 09/17/2014 CINDY DEY MD Ot 786.50 09/30/2014 CINDY DEY MD Ot 278.00 09/30/2014 CINDY DEY MD Ot 305.1 09/30/2014 CINDY DEY MD Ot 780.79 09/30/2014 CINDY DEY MD Ot 786.50 03/03/2015 Ot 793.80 03/03/2015 Ot V16.3 03/03/2015 Ot 595.0 03/03/2015 Ot 414.00 03/03/2015 Ot 610.4 03/03/2015 Ot 787.02 03/03/2015 Ot 789.01 03/03/2015 Ot 610.0 03/03/2015 Ot 611.72 03/03/2015 Ot V16.3 03/03/2015 Ot 272.0 03/03/2015 Ot 305.1 03/03/2015 Ot 611.72 03/03/2015 Ot 729.1 03/03/2015 Ot V16.3 03/03/2015 Ot V45.77 03/03/2015 Ot 272.0 03/03/2015 Ot 300.4 03/03/2015 Ot 729.1 03/03/2015 Ot V16.3 03/03/2015 Ot V58.69 03/03/2015 Ot 611.72 03/03/2015 Ot 724.2 03/03/2015 Ot V45.4 03/03/2015 DON GUADALUPE Ot V76.12 03/03/2015 SUHAS WILLETT MD Ot 788.1 03/03/2015 SUHAS WILLETT MD Ot 788.41 03/03/2015 SUHAS WILLETT MD Ot 784.0 03/03/2015 CINDY DEY MD Ot 278.00 03/03/2015 YISSEL MARSHALL, CINDY Gordon Ot 305.1 03/03/2015 YISSEL MARSHALL, CINDY Gordon Ot 780.79 03/03/2015 YISSEL MARSHALL, CINDY Gordon Ot 786.50 03/03/2015 YISSEL MARSHALL, CINDY Gordon Ot 278.00 03/03/2015 YISSEL MARSHALL, CINDY Gordon Ot 305.1 03/03/2015 YISSEL MARSHALL, CINDY Gordon Ot 780.79 03/03/2015 YISSEL MARSHALL, CINDY Gordon Ot 786.50 03/03/2015 YISSEL MARSHALL, CINDY Gordon Ot 278.00 03/03/2015 YISSEL MARSHALL, CINDY Gordon Ot 305.1 03/03/2015 YISSEL MARSHALL, CINDY Gordon Ot 780.79 03/03/2015 YISSEL MARSHALL, CINDY Gordon Ot 786.50 03/04/2015 EMMY GREEN DO Ot 592.1 CALCULUS OF URETER 03/04/2015 EMMY GREEN DO Ot 599.70 HEMATURIA, UNSPECIFIED 04/06/2015 KALPANA JACINTO MD Ot 592.9 04/14/2015 DHEERAJ MARSHALL, FIGUEROA Craig Ot 724.2 04/14/2015 KALPANA JACINTO MD Ot 592.0 05/28/2015 Ot S60.456A 05/28/2015 Ot Z12.31 08/17/2015 Ot 414.00 08/17/2015 Ot 610.4 08/17/2015 Ot 787.02 08/17/2015 Ot 789.01 08/17/2015 Ot 610.0 08/17/2015 Ot 611.72 08/17/2015 Ot V16.3 08/17/2015 Ot 272.0 08/17/2015 Ot 305.1 08/17/2015 Ot 611.72 08/17/2015 Ot 729.1 08/17/2015 Ot V16.3 08/17/2015 Ot V45.77 08/17/2015 Ot 272.0 08/17/2015 Ot 300.4 08/17/2015 Ot 729.1 08/17/2015 Ot V16.3 08/17/2015 Ot V58.69 08/17/2015 Ot 611.72 08/17/2015 Ot 724.2 08/17/2015 Ot V45.4 08/17/2015 SAMANTHA GUADALUPEA EMEKA Ot V76.12 08/17/2015 DAVID MARSHALL, SUHAS Lorenz Ot 788.1 08/17/2015 DAVID MARSHALL, SUHAS Lorenz Ot 788.41 08/17/2015 DAVID MARSHALL, SUHAS Lorenz Ot 784.0 08/17/2015 YISSEL MARSHALL, CINDY J Ot 278.00 08/17/2015 YISSEL MARSHALL, BASDEZ J Ot 305.1 08/17/2015 YISSEL MARSHALL, BASHAR J Ot 780.79 08/17/2015 YISSEL MARSHALL, BASHAR J Ot 786.50 08/17/2015 YISSEL MARSHALL, BASHAR J Ot 278.00 08/17/2015 YISSEL MARSHALL, BASHAR J Ot 305.1 08/17/2015 YISSEL MARSHALL, BASHAR J Ot 780.79 08/17/2015 YISSEL MARSHALL, BASHAR J Ot 786.50 08/17/2015 YISSEL MARSHALL, BASHAR J Ot 278.00 08/17/2015 YISSEL MARSHALL, AXELHAR J Ot 305.1 08/17/2015 YISSEL MARSHALL, AXELHAR J Ot 780.79 08/17/2015 YISSEL MARSHALL, AXELHAR J Ot 786.50 08/17/2015 DHEERAJ MARSHALL, FIGUEROA Craig Ot 724.2 08/17/2015 OPHELIA MARSHALL, KALPANA Nassar Ot 592.9 08/17/2015 OPHELIA MARSHALL, KALPANA Nassar Ot 592.0 08/17/2015 Ot S60.456A 08/17/2015 Ot Z12.31 09/02/2015 JERO DAMON Ot E78.2 09/29/2015 HUNTER DO WING C Ot 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 09/29/2015 HUNTER DO WING C Ot N73.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 (POST 09/29/2015 HUNTER DO WING C Ot R10.2 PELVIC AND PERINEAL PAIN 10/13/2015 HUNTER DO WING C Ot N94.9 10/13/2015 HUNTER DO WING C Ot R10.11 10/13/2015 HUNTER DO WING C Ot D07.1 10/13/2015 HUNTER DO WING C Ot R10.2 10/13/2015 HUNTER DO WING C Ot Z01.812 10/13/2015 HUNTER DOWING C Ot Z11.2 10/30/2015 HUNTER DOWING C Ot D07.1 10/30/2015 HUNTER DOWING C Ot N73.6 10/30/2015 HUNTER DOWING C Ot R10.2 11/13/2015 SUHAS WILLETT MD Ot R00.2 11/13/2015 SUHAS WILLETT MD Ot R35.8 11/13/2015 SUHAS WILLETT MD Ot R53.83 11/13/2015 SUHAS WILLETT MD Ot R63.1 11/13/2015 SUHAS WILLETT MD Ot R63.2 11/13/2015 SUHAS WILLETT MD Ot R63.5 11/13/2015 SUHAS WILLETT MD Ot R73.9 11/25/2015 SUHAS WILLETT MD Ot R00.2 PALPITATIONS 11/25/2015 SUHAS WILLETT MD Ot R35.8 OTHER POLYURIA 11/25/2015 SUHAS WILLETT MD Ot R53.83 OTHER FATIGUE 11/25/2015 SUHAS WILLETT MD Ot R63.1 POLYDIPSIA 11/25/2015 SUHAS WILLETT MD Ot R63.2 POLYPHAGIA 11/25/2015 SUHAS WILLETT MD Ot R63.5 ABNORMAL WEIGHT GAIN 11/25/2015 SUHAS WILLETT MD Ot R73.9 HYPERGLYCEMIA, UNSPECIFIED 01/09/2016 SUHAS WILLETT MD Ot S93.401A SPRAIN OF UNSPECIFIED LIGAMENT OF RIGHT 01/09/2016 SUHAS WILLETT MD Ot X58.XXXA EXPOSURE TO OTHER SPECIFIED FACTORS, INI 01/09/2016 SUHAS WILLETT MD Ot Y99.8 OTHER EXTERNAL CAUSE STATUS 01/13/2016 SUHAS WILLETT MD Ot S93.401A SPRAIN OF UNSPECIFIED LIGAMENT OF RIGHT 01/13/2016 SUHSA WILLETT MD Ot X58.XXXA EXPOSURE TO OTHER SPECIFIED FACTORS, INI 01/13/2016 SUHAS WILLETT MD Ot Y99.8 OTHER EXTERNAL CAUSE STATUS 01/20/2016 JOO FARMER, JERO Lorenz Ot E78.2 MIXED HYPERLIPIDEMIA 01/21/2016 SUHAS WILLETT MD Ot S93.401A SPRAIN OF UNSPECIFIED LIGAMENT OF RIGHT 01/21/2016 SUHAS WILLETT MD Ot X58.XXXA EXPOSURE TO OTHER SPECIFIED FACTORS, INI 01/21/2016 SUHAS WILLETT MD Ot Y99.8 OTHER EXTERNAL CAUSE STATUS 01/22/2016 CINDY DEY MD Ot E78.2 MIXED HYPERLIPIDEMIA 01/22/2016 CINDY DEY MD Ot F41.8 OTHER SPECIFIED ANXIETY DISORDERS 01/22/2016 CINDY DEY MD Ot R06.89 OTHER ABNORMALITIES OF BREATHING 01/22/2016 CINDY DEY MD Ot R07.9 CHEST PAIN, UNSPECIFIED 02/04/2016 CINDY DEY MD Ot E78.2 MIXED HYPERLIPIDEMIA 02/04/2016 CINDY DEY MD Ot F41.8 OTHER SPECIFIED ANXIETY DISORDERS 02/04/2016 CINDY DEY MD Ot R06.89 OTHER ABNORMALITIES OF BREATHING 02/04/2016 CINDY EDY MD Ot R07.9 CHEST PAIN, UNSPECIFIED 02/04/2016 JERO DAMON Ot E78.2 MIXED HYPERLIPIDEMIA 06/01/2016 WING HUNTER DO Ot R10.11 RIGHT UPPER QUADRANT PAIN 07/15/2016 MAYELIN ARAGON Ot S63.92XA SPRAIN OF UNSP PART OF LEFT WRIST AND OH 07/15/2016 MAYELIN ARAGON Ot S69.92XA UNSP INJURY OF LEFT WRIST, HAND AND FING 07/15/2016 MAYELIN ARAGON Ot W01.0XXA FALL SAME LEV FROM SLIP/TRIP W/O STRIKE 07/15/2016 MAYELIN ARAGON Ot Y93.9 ACTIVITY, UNSPECIFIED 07/15/2016 MAYELIN ARAGON Ot Y93.K1 ACTIVITY, WALKING AN ANIMAL 07/15/2016 MAYELIN ARAGON Ot Y99.8 OTHER EXTERNAL CAUSE STATUS 07/15/2016 Ot 272.0 PURE HYPERCHOLESTEROLEM 07/15/2016 Ot 300.4 DYSTHYMIC DISORDER 07/15/2016 Ot 729.1 MYALGIA AND MYOSITIS NOS 07/15/2016 Ot V16.3 FAMILY HX- BREAST MALIG 07/15/2016 Ot V58.69 OTH MED,LT, CURRENT USE 07/15/2016 Ot 611.72 LUMP OR MASS IN BREAST 07/15/2016 Ot 724.2 LUMBAGO 07/15/2016 Ot V45.4 ARTHRODESIS STATUS 07/15/2016 DON GUADALUPE Ot V76.12 OTH SCREEN MAMMO-MALIGN NEOPLASM OF LAURO 07/15/2016 SUHAS WILLETT MD Ot 788.1 DYSURIA 07/15/2016 SUHAS WILLETT MD Ot 788.41 URINARY FREQUENCY 07/15/2016 SUHAS WILLETT MD Ot 784.0 HEADACHE 07/15/2016 CINDY DEY MD Ot 278.00 OBESITY, NOS 07/15/2016 CINDY DEY MD Ot 305.1 TOBACCO USE DISORDER 07/15/2016 CINDY DEY MD Ot 780.79 OTH MALAISE FATIGUE 07/15/2016 CINDY DEY MD Ot 786.50 CHEST PAIN NOS 07/15/2016 CINDY DEY MD Ot 278.00 OBESITY, NOS 07/15/2016 CINDY DEY MD Ot 305.1 TOBACCO USE DISORDER 07/15/2016 CINDY DEY MD Ot 780.79 OTH MALAISE FATIGUE 07/15/2016 CINDY DEY MD Ot 786.50 CHEST PAIN NOS 07/15/2016 CINDY DEY MD Ot 278.00 OBESITY, NOS 07/15/2016 CINDY DEY MD Ot 305.1 TOBACCO USE DISORDER 07/15/2016 CINDY DEY MD Ot 780.79 OTH MALAISE FATIGUE 07/15/2016 CINDY DEY MD Ot 786.50 CHEST PAIN NOS 07/15/2016 FIGUEROA ESQUEDA MD Ot 724.2 LUMBAGO 07/15/2016 KALPANA JACINTO MD Ot 592.9 URINARY CALCULUS NOS 07/15/2016 KALPANA JACINTO MD Ot 592.0 CALCULUS OF KIDNEY 07/15/2016 Ot S60.456A SUPERFICIAL FOREIGN BODY OF RIGHT LITTLE 07/15/2016 Ot Z12.31 ENCNTR SCREEN MAMMOGRAM FOR MALIGNANT NE 07/15/2016 JERO DAMON Ot E78.2 MIXED HYPERLIPIDEMIA 07/15/2016 WING HUNTER DO Ot N94.9 UNSP COND 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 07/15/2016 WING HUNTER DO Ot R10.11 RIGHT UPPER QUADRANT PAIN 07/15/2016 DALE PEREZWING Ot 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 07/15/2016 DALE PEREZWING Ot R10.2 PELVIC AND PERINEAL PAIN 07/15/2016 DALE PEREZWING Ot Z01.812 ENCOUNTER FOR PREPROCEDURAL LABORATORY E 07/15/2016 WING HUNTER DO Ot Z11.2 ENCOUNTER FOR SCREENING FOR OTHER BACTER 07/15/2016 SUHAS WILLETT MD Ot R00.2 PALPITATIONS 07/15/2016 SUHAS WILLETT MD Ot R35.8 OTHER POLYURIA 07/15/2016 SUHAS WILLETT MD Ot R53.83 OTHER FATIGUE 07/15/2016 SUHAS WILLETT MD Ot R63.1 POLYDIPSIA 07/15/2016 SUHAS WILLETT MD Ot R63.2 POLYPHAGIA 07/15/2016 SUHAS WILLETT MD Ot R63.5 ABNORMAL WEIGHT GAIN 07/15/2016 SUHAS WILLETT MD Ot R73.9 HYPERGLYCEMIA, UNSPECIFIED 07/15/2016 SUHAS WILLETT MD Ot S93.401A SPRAIN OF UNSPECIFIED LIGAMENT OF RIGHT 07/15/2016 SUHAS WILLETT MD Ot X58.XXXA EXPOSURE TO OTHER SPECIFIED FACTORS, INI 07/15/2016 SUHAS WILLETT MD Ot Y99.8 OTHER EXTERNAL CAUSE STATUS 07/15/2016 CINDY DEY MD Ot E78.2 MIXED HYPERLIPIDEMIA 07/15/2016 CINDY DEY MD Ot F41.8 OTHER SPECIFIED ANXIETY DISORDERS 07/15/2016 CINDY DEY MD Ot R06.89 OTHER ABNORMALITIES OF BREATHING 07/15/2016 CINDY DEY MD Ot R07.9 CHEST PAIN, UNSPECIFIED 07/15/2016 JERO DAMON Ot E78.2 MIXED HYPERLIPIDEMIA 07/15/2016 WING HUNTER DO Ot R10.11 RIGHT UPPER QUADRANT PAIN 07/17/2016 MYAELIN ARAGON Ot S63.92XA SPRAIN OF UNSP PART OF LEFT WRIST AND OH 07/17/2016 MAYELIN ARAGON Ot S69.92XA UNSP INJURY OF LEFT WRIST, HAND AND FING 07/17/2016 MAYELIN ARAGON Ot W01.0XXA FALL SAME LEV FROM SLIP/TRIP W/O STRIKE 07/17/2016 MAYELIN ARAGON Ot Y93.9 ACTIVITY, UNSPECIFIED 07/17/2016 MAYELIN ARAGON Ot Y93.K1 ACTIVITY, WALKING AN ANIMAL 07/17/2016 MAYELIN ARAGON Ot Y99.8 OTHER EXTERNAL CAUSE STATUS 11/28/2016 JOAN WILLETT Ot Z12.31 ENCNTR SCREEN MAMMOGRAM FOR MALIGNANT NE 12/09/2016 JOAN WILLETT Ot Z12.31 ENCNTR SCREEN MAMMOGRAM FOR MALIGNANT NE 12/16/2016 SUHAS WILLETT MD Ot R10.31 RIGHT LOWER QUADRANT PAIN 12/21/2016 SUHAS WILLETT MD Ot R10.31 RIGHT LOWER QUADRANT PAIN 12/30/2016 SUHAS WILLETT MD Ot R10.31 RIGHT LOWER QUADRANT PAIN 01/16/2017 ROSALIE BELLO DO Ot R19.5 OTHER FECAL ABNORMALITIES 01/16/2017 ROSALIE BELLO DO Ot Z01.818 ENCOUNTER FOR OTHER PREPROCEDURAL EXAMIN 01/18/2017 Ot 272.0 PURE HYPERCHOLESTEROLEM 01/18/2017 Ot 300.4 DYSTHYMIC DISORDER 01/18/2017 Ot 729.1 MYALGIA AND MYOSITIS NOS 01/18/2017 Ot V16.3 FAMILY HX- BREAST MALIG 01/18/2017 Ot V58.69 OTH MED,LT, CURRENT USE 01/18/2017 Ot 611.72 LUMP OR MASS IN BREAST 01/18/2017 Ot 724.2 LUMBAGO 01/18/2017 Ot V45.4 ARTHRODESIS STATUS 01/18/2017 DON GUADALUPE Ot V76.12 OTH SCREEN MAMMO-MALIGN NEOPLASM OF LAURO 01/18/2017 SUHAS WILLETT MD Ot 788.1 DYSURIA 01/18/2017 SUHAS WILLETT MD Ot 788.41 URINARY FREQUENCY 01/18/2017 SUHAS WILLETT MD Ot 784.0 HEADACHE 01/18/2017 CINDY DEY MD Ot 278.00 OBESITY, NOS 01/18/2017 CINDY DEY MD Ot 305.1 TOBACCO USE DISORDER 01/18/2017 CINDY DEY MD Ot 780.79 OTH MALAISE FATIGUE 01/18/2017 CINDY DEY MD Ot 786.50 CHEST PAIN NOS 01/18/2017 CINDY DEY MD Ot 278.00 OBESITY, NOS 01/18/2017 CINDY DEY MD Ot 305.1 TOBACCO USE DISORDER 01/18/2017 CINDY DEY MD Ot 780.79 OTH MALAISE FATIGUE 01/18/2017 CINDY DEY MD Ot 786.50 CHEST PAIN NOS 01/18/2017 CINDY DEY MD Ot 278.00 OBESITY, NOS 01/18/2017 CINDY DEY MD Ot 305.1 TOBACCO USE DISORDER 01/18/2017 CINDY DEY MD Ot 780.79 OTH MALAISE FATIGUE 01/18/2017 CINDY DEY MD Ot 786.50 CHEST PAIN NOS 01/18/2017 DHEERAJ MARSHALL, FIGUEROA Craig Ot 724.2 LUMBAGO 01/18/2017 OPHELIA MARSHALL, KALPANA Nassar Ot 592.9 URINARY CALCULUS NOS 01/18/2017 KALPANA JACINTO MD Ot 592.0 CALCULUS OF KIDNEY 01/18/2017 Ot S60.456A SUPERFICIAL FOREIGN BODY OF RIGHT LITTLE 01/18/2017 Ot Z12.31 ENCNTR SCREEN MAMMOGRAM FOR MALIGNANT NE 01/18/2017 JERO DAMON Ot E78.2 MIXED HYPERLIPIDEMIA 01/18/2017 WING HUNTER DO Ot N94.9 UNSP COND 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 01/18/2017 WING HUNTER DO Ot R10.11 RIGHT UPPER QUADRANT PAIN 01/18/2017 WING HUNTER DO Ot 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 01/18/2017 WING HUNTER DO Ot R10.2 PELVIC AND PERINEAL PAIN 01/18/2017 WING HUNTER DO Ot Z01.812 ENCOUNTER FOR PREPROCEDURAL LABORATORY E 01/18/2017 WING HUNTER DO Ot Z11.2 ENCOUNTER FOR SCREENING FOR OTHER BACTER 01/18/2017 SUHAS WILLETT MD Ot R00.2 PALPITATIONS 01/18/2017 SUHAS WILLETT MD Ot R35.8 OTHER POLYURIA 01/18/2017 SUHAS WILLETT MD Ot R53.83 OTHER FATIGUE 01/18/2017 SUHAS WILLETT MD Ot R63.1 POLYDIPSIA 01/18/2017 SUHAS WILLETT MD Ot R63.2 POLYPHAGIA 01/18/2017 SUHAS WILLETT MD Ot R63.5 ABNORMAL WEIGHT GAIN 01/18/2017 SUHAS WILLETT MD Ot R73.9 HYPERGLYCEMIA, UNSPECIFIED 01/18/2017 SUHAS WILLETT MD Ot S93.401A SPRAIN OF UNSPECIFIED LIGAMENT OF RIGHT 01/18/2017 SUHAS WILLETT MD Ot X58.XXXA EXPOSURE TO OTHER SPECIFIED FACTORS, INI 01/18/2017 SUHAS WILLETT MD Ot Y99.8 OTHER EXTERNAL CAUSE STATUS 01/18/2017 CINDY DEY MD Ot E78.2 MIXED HYPERLIPIDEMIA 01/18/2017 CINDY DEY MD Ot F41.8 OTHER SPECIFIED ANXIETY DISORDERS 01/18/2017 CINDY DEY MD Ot R06.89 OTHER ABNORMALITIES OF BREATHING 01/18/2017 CINDY DEY MD Ot R07.9 CHEST PAIN, UNSPECIFIED 01/18/2017 JERO DAMON Ot E78.2 MIXED HYPERLIPIDEMIA 01/18/2017 WING HUNTER DO Ot R10.11 RIGHT UPPER QUADRANT PAIN 01/18/2017 JOAN WILLETT Ot Z12.31 ENCNTR SCREEN MAMMOGRAM FOR MALIGNANT NE 01/18/2017 SUHAS WILLETT MD Ot R10.31 RIGHT LOWER QUADRANT PAIN 01/18/2017 ROSALIE BELLO DO Ot D12.3 BENIGN NEOPLASM OF TRANSVERSE COLON 01/18/2017 ROSALIE BELLO DO Ot E66.9 OBESITY, UNSPECIFIED 01/18/2017 ROSALIE BELLO DO Ot E78.5 HYPERLIPIDEMIA, UNSPECIFIED 01/18/2017 ROSALIE BELLO DO Ot F17.210 NICOTINE DEPENDENCE, CIGARETTES, UNCOMPL 01/18/2017 ROSALIE BELLO DO Ot F41.9 ANXIETY DISORDER, UNSPECIFIED 01/18/2017 ROSALIE BELLO DO Ot K21.9 GASTRO-ESOPHAGEAL REFLUX DISEASE WITHOUT 01/18/2017 ROSALIE BELLO DO Ot K29.70 GASTRITIS, UNSPECIFIED, WITHOUT BLEEDING 01/18/2017 DELMAN DO, ROSALIE B Ot K29.80 DUODENITIS WITHOUT BLEEDING 01/18/2017 ACE PEREZ ROSALIE B Ot K57.3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 01/18/2017 ROSALIE BELLO DO B Ot K63.5 POLYP OF COLON 01/18/2017 ROSALIE BELLO DO B Ot K64.8 OTHER HEMORRHOIDS 01/18/2017 ROSALIE BELLO DO B Ot Z68.29 BODY MASS INDEX (BMI) 29.0-29.9, ADULT 01/18/2017 DARION BELLO DOIC B Ot Z79.899 OTHER TILE ROOFER (CURRENT) DRUG THERAPY 01/20/2017 ROSALIE BELLO DO B Ot E66.9 OBESITY, UNSPECIFIED 01/20/2017 ROSALIE BELLO DO B Ot E78.5 HYPERLIPIDEMIA, UNSPECIFIED 01/20/2017 ROSALIE BELLO DO B Ot F17.210 NICOTINE DEPENDENCE, CIGARETTES, UNCOMPL 01/20/2017 ROSALIE BELLO DO B Ot K21.9 GASTRO-ESOPHAGEAL REFLUX DISEASE WITHOUT 01/20/2017 ROSALIE BELLO DO B Ot K29.70 GASTRITIS, UNSPECIFIED, WITHOUT BLEEDING 01/20/2017 DARION BELLO DOIC B Ot K29.80 DUODENITIS WITHOUT BLEEDING 01/20/2017 ROSALIE BELLO DO B Ot K57.3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 01/20/2017 ROSALIE BELLO DO B Ot K63.5 POLYP OF COLON 01/20/2017 ROSALIE BELLO DO B Ot K64.8 OTHER HEMORRHOIDS 01/20/2017 ROSALIE BELLO DO B Ot Z68.29 BODY MASS INDEX (BMI) 29.0-29.9, ADULT 01/20/2017 ROSALIE BELLO DO B Ot Z79.899 OTHER SHELTER (CURRENT) DRUG THERAPY 04/14/2017 Ot 272.0 PURE HYPERCHOLESTEROLEM 04/14/2017 Ot 300.4 DYSTHYMIC DISORDER 04/14/2017 Ot 729.1 MYALGIA AND MYOSITIS NOS 04/14/2017 Ot V16.3 FAMILY HX- BREAST MALIG 04/14/2017 Ot V58.69 OTH MED,LT, CURRENT USE 04/14/2017 Ot 611.72 LUMP OR MASS IN BREAST 04/14/2017 Ot 724.2 LUMBAGO 04/14/2017 Ot V45.4 ARTHRODESIS STATUS 04/14/2017 DON GUADALUPE Ot V76.12 OTH SCREEN MAMMO-MALIGN NEOPLASM OF LAURO 04/14/2017 SUHAS WILLETT MD Ot 788.1 DYSURIA 04/14/2017 SUHAS WILLETT MD Ot 788.41 URINARY FREQUENCY 04/14/2017 SUHAS WILLETT MD Ot 784.0 HEADACHE 04/14/2017 CINDY DEY MD Ot 278.00 OBESITY, NOS 04/14/2017 CINDY DEY MD Ot 305.1 TOBACCO USE DISORDER 04/14/2017 CINDY DEY MD Ot 780.79 OTH MALAISE FATIGUE 04/14/2017 CINDY DEY MD Ot 786.50 CHEST PAIN NOS 04/14/2017 CINDY DEY MD Ot 278.00 OBESITY, NOS 04/14/2017 CINDY DEY MD Ot 305.1 TOBACCO USE DISORDER 04/14/2017 CINDY DEY MD Ot 780.79 OTH MALAISE FATIGUE 04/14/2017 CINDY DEY MD Ot 786.50 CHEST PAIN NOS 04/14/2017 CINDY DEY MD Ot 278.00 OBESITY, NOS 04/14/2017 CINDY DEY MD Ot 305.1 TOBACCO USE DISORDER 04/14/2017 CINDY DEY MD Ot 780.79 OTH MALAISE FATIGUE 04/14/2017 CINDY DEY MD Ot 786.50 CHEST PAIN NOS 04/14/2017 FIGUEROA ESQUEDA MD Ot 724.2 LUMBAGO 04/14/2017 KALPANA JACINTO MD Ot 592.9 URINARY CALCULUS NOS 04/14/2017 KALPANA JACINTO MD Ot 592.0 CALCULUS OF KIDNEY 04/14/2017 Ot S60.456A SUPERFICIAL FOREIGN BODY OF RIGHT LITTLE 04/14/2017 Ot Z12.31 ENCNTR SCREEN MAMMOGRAM FOR MALIGNANT NE 04/14/2017 JERO DAMON Ot E78.2 MIXED HYPERLIPIDEMIA 04/14/2017 WING HUNTER DO Ot N94.9 UNSP COND 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 04/14/2017 WING HUNTER DO Ot R10.11 RIGHT UPPER QUADRANT PAIN 04/14/2017 DALE WING PEREZ Ot 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 04/14/2017 HUNTERWING Diaz DO Ot R10.2 PELVIC AND PERINEAL PAIN 04/14/2017 HUNTERWING Diaz DO Ot Z01.812 ENCOUNTER FOR PREPROCEDURAL LABORATORY E 04/14/2017 WING HUNTER DO Ot Z11.2 ENCOUNTER FOR SCREENING FOR OTHER BACTER 04/14/2017 SUHAS WILLETT MD Ot R00.2 PALPITATIONS 04/14/2017 SUHAS WILLETT MD Ot R35.8 OTHER POLYURIA 04/14/2017 SUHAS WILLETT MD Ot R53.83 OTHER FATIGUE 04/14/2017 SUHAS WILLETT MD Ot R63.1 POLYDIPSIA 04/14/2017 SUHAS WILLETT MD Ot R63.2 POLYPHAGIA 04/14/2017 SUHAS WILLETT MD Ot R63.5 ABNORMAL WEIGHT GAIN 04/14/2017 SUHAS WILLETT MD Ot R73.9 HYPERGLYCEMIA, UNSPECIFIED 04/14/2017 SUHAS WILLETT MD Ot S93.401A SPRAIN OF UNSPECIFIED LIGAMENT OF RIGHT 04/14/2017 SUHAS WILLETT MD Ot X58.XXXA EXPOSURE TO OTHER SPECIFIED FACTORS, INI 04/14/2017 SUHAS WILLETT MD Ot Y99.8 OTHER EXTERNAL CAUSE STATUS 04/14/2017 CINDY DEY MD Ot E78.2 MIXED HYPERLIPIDEMIA 04/14/2017 CINDY DEY MD Ot F41.8 OTHER SPECIFIED ANXIETY DISORDERS 04/14/2017 CINDY DEY MD Ot R06.89 OTHER ABNORMALITIES OF BREATHING 04/14/2017 CINDY DEY MD Ot R07.9 CHEST PAIN, UNSPECIFIED 04/14/2017 JERO DAMON Ot E78.2 MIXED HYPERLIPIDEMIA 04/14/2017 WING HUNTER DO Ot R10.11 RIGHT UPPER QUADRANT PAIN 04/14/2017 JOAN WILLETT Ot Z12.31 ENCNTR SCREEN MAMMOGRAM FOR MALIGNANT NE 04/14/2017 SUHAS WILLETT MD Ot R10.31 RIGHT LOWER QUADRANT PAIN 04/20/2017 COLTHARP DO, [place] A Ot R06.02 SHORTNESS OF BREATH 04/25/2017 GE[place]IA[place] FELDER DO A Ot R06.02 SHORTNESS OF BREATH 06/10/2017 MAYELIN ARAGON Ot E78.00 PURE HYPERCHOLESTEROLEMIA, UNSPECIFIED 06/10/2017 MAYELIN ARAGON Ot F17.210 NICOTINE DEPENDENCE, CIGARETTES, UNCOMPL 06/10/2017 MAYELIN ARAGON Ot F31.9 BIPOLAR DISORDER, UNSPECIFIED 06/10/2017 MAYELIN ARAGON Ot F41.9 ANXIETY DISORDER, UNSPECIFIED 06/10/2017 MAYELIN ARAGON Ot G43.909 MIGRAINE, UNSP, NOT INTRACTABLE, WITHOUT 06/10/2017 MAYELIN ARAGON Ot J20.9 ACUTE BRONCHITIS, UNSPECIFIED 06/10/2017 MAYELIN ARAGON Ot K21.0 GASTRO-ESOPHAGEAL REFLUX DISEASE WITH ES 06/10/2017 MAYELIN ARAGON Ot K21.9 GASTRO-ESOPHAGEAL REFLUX DISEASE WITHOUT 06/10/2017 MAYELIN ARAGON Ot M19.90 UNSPECIFIED OSTEOARTHRITIS, UNSPECIFIED 06/10/2017 MAYELIN ARAGON Ot R06.02 SHORTNESS OF BREATH 06/10/2017 MAYELIN ARAGON Ot Z80.3 FAMILY HISTORY OF MALIGNANT NEOPLASM OF 06/10/2017 MAYELIN ARAGON Ot Z82.49 FAMILY HX OF ISCHEM HEART DIS AND OTH DI 06/10/2017 MAYELIN ARAGON Ot Z86.19 PERSONAL HISTORY OF OTHER INFECTIOUS AND 06/10/2017 MAYELIN ARAGON Ot Z87.19 PERSONAL HISTORY OF OTHER DISEASES OF TH 06/10/2017 MAYELIN ARAGON Ot Z87.442 PERSONAL HISTORY OF URINARY CALCULI 06/10/2017 MAYELIN ARAGON Ot Z90.49 ACQUIRED ABSENCE OF OTHER SPECIFIED PART 06/10/2017 MAYELIN ARAGON Ot Z90.710 ACQUIRED ABSENCE OF BOTH CERVIX AND UTER 07/28/2017 MAU HOFFMANN MD Ot E78.00 PURE HYPERCHOLESTEROLEMIA, UNSPECIFIED 07/28/2017 MAU HOFFMANN MD Ot F31.89 OTHER BIPOLAR DISORDER 07/28/2017 MAU HOFFMANN MD Ot F41.9 ANXIETY DISORDER, UNSPECIFIED 07/28/2017 MAU HOFFMANN MD Ot G43.909 MIGRAINE, UNSP, NOT INTRACTABLE, WITHOUT 07/28/2017 MAU HOFFMANN MD Ot K21.9 GASTRO-ESOPHAGEAL REFLUX DISEASE WITHOUT 07/28/2017 MAU HOFFMANN MD Ot R42 DIZZINESS AND GIDDINESS 07/28/2017 MAU HOFFMANN MD Ot Z80.3 FAMILY HISTORY OF MALIGNANT NEOPLASM OF 07/28/2017 MAU HOFFMANN MD Ot Z82.49 FAMILY HX OF ISCHEM HEART DIS AND OTH DI 07/28/2017 MAU HOFFMANN MD Ot Z87.19 PERSONAL HISTORY OF OTHER DISEASES OF 07/28/2017 MAU HOFFMANN MD Ot Z87.891 PERSONAL HISTORY OF NICOTINE DEPENDENCE 07/28/2017 MAU HOFFMANN MD Ot Z90.49 ACQUIRED ABSENCE OF OTHER SPECIFIED PART 07/28/2017 MAU HOFFMANN MD Ot Z90.710 ACQUIRED ABSENCE OF BOTH CERVIX AND UTER 08/01/2017 MAU HOFFMANN MD Ot E78.00 PURE HYPERCHOLESTEROLEMIA, UNSPECIFIED 08/01/2017 MAU HOFFMANN MD Ot F31.89 OTHER BIPOLAR DISORDER 08/01/2017 MAU HOFFMANN MD Ot F41.9 ANXIETY DISORDER, UNSPECIFIED 08/01/2017 MAU HOFFMANN MD Ot G43.909 MIGRAINE, UNSP, NOT INTRACTABLE, WITHOUT 08/01/2017 MAU HOFFMANN MD Ot K21.9 GASTRO-ESOPHAGEAL REFLUX DISEASE WITHOUT 08/01/2017 MAU HOFFMANN MD Ot R42 DIZZINESS AND GIDDINESS 08/01/2017 MAU HOFFMANN MD Ot Z80.3 FAMILY HISTORY OF MALIGNANT NEOPLASM OF 08/01/2017 MAU HOFFMANN MD Ot Z82.49 FAMILY HX OF ISCHEM HEART DIS AND OTH DI 08/01/2017 MAU HOFFAMNN MD Ot Z87.19 PERSONAL HISTORY OF OTHER DISEASES OF 08/01/2017 MAU HOFFMANN MD Ot Z87.891 PERSONAL HISTORY OF NICOTINE DEPENDENCE 08/01/2017 MAU HOFFMANN MD Ot Z90.49 ACQUIRED ABSENCE OF OTHER SPECIFIED PART 08/01/2017 MAU HOFFMANN MD Ot Z90.710 ACQUIRED ABSENCE OF BOTH CERVIX AND UTER 11/24/2017 KEELY GARG Ot N63.23 UNSPECIFIED LUMP IN THE LEFT BREAST, LOW 11/24/2017 JESS FARMER, KEELY Ot Z13.820 ENCOUNTER FOR SCREENING FOR OSTEOPOROSIS 12/01/2017 RK FU MD, Ot S13.4XXD SPRAIN OF LIGAMENTS OF CERVICAL SPINE, S 12/01/2017 RK FU MD, Ot X50.9XXD OTHER AND UNSPECIFIED OVREXRTN OR STRNOU 12/04/2017 RK FU MD, Ot S13.4XXD SPRAIN OF LIGAMENTS OF CERVICAL SPINE, S 12/04/2017 RK FU MD, Ot X50.9XXD OTHER AND UNSPECIFIED OVREXRTN OR STRNOU 12/07/2017 KEELY GARG Ot N63.23 UNSPECIFIED LUMP IN THE LEFT BREAST, LOW 12/07/2017 KEELY GARG Ot Z13.820 ENCOUNTER FOR SCREENING FOR OSTEOPOROSIS 12/25/2017 RK FU MD, Ot S13.4XXD SPRAIN OF LIGAMENTS OF CERVICAL SPINE, S 12/25/2017 RK FU MD, Ot X50.9XXD OTHER AND UNSPECIFIED OVREXRTN OR STRNOU Procedures Code Description Performed By Performed On Podiatry Melania Oshea 06/27/2012 Orthopedi Hi Lowe 07/25/2012 53696 URINE DRUG SCREEN (IN-HOUSE ) 09/17/2012 58263 ROUTINE VENIPUNCTURE 09/19/2012 83363 CMP 09/19/2012 [id number] GFR CALC (RESULT ONLY) 09/19/2012 19970 TSH 09/19/2012 55710 INSULIN LEVEL 09/19/2012 11590 URINE DRUG SCREEN (IN-HOUSE ) 10/30/2012 71883 MAMMOGRAM DX, EMBER 11/01/2012 Rk Olivera 11/01/2012 31847 MRI SPINE (THORACIC) W/O CONTRAST 04/09/2013 43418 MRI SPINE (LUMBAR) W/O CONTRAST 04/09/2013 Physical Physical Therapy 04/23/2013 Physical Physical Therapy 06/24/2013 32759 ROUTINE VENIPUNCTURE 09/18/2013 Rk Olivera 09/18/2013 19503 URINE DRUG SCREEN (IN-HOUSE ) 09/18/2013 55450 HEMOCCULT 09/18/2013 97923 HEMOCCULT 09/18/2013 81118 CBC 09/18/2013 [id number] GFR CALC (RESULT ONLY) 09/18/2013 29626 CMP 09/18/2013 04027 LIPID PANEL 09/18/2013 91829 CRP 09/18/2013 63514 LIPASE 09/18/2013 32032 SED/ESR RATE RML 09/18/2013 23439 TSH 09/18/2013 33159 STOOL FOR POLYS & LEUKOCYTES 09/18/2013 60254 XRAY SHOULDER RIGHT COMP 2 VIEWS 09/19/2013 52717 CULTURE STOOL 09/19/2013 79849 STOOL FOR O & P 09/19/2013 [id number] STOOL FOR BACTERIAL PATHOGENS 09/20/2013 03377 URINE DRUG SCREEN (IN-HOUSE ) 10/08/2013 17365 MRI SPINE (THORACIC) W/O CONTRAST 10/08/2013 90190 MRI SPINE (LUMBAR) W/O CONTRAST 10/08/2013 Results Test Result Range Lipase - 12/09/16 18:40 Lipase 49 U/L 7-59 Complete blood count (CBC) with automated white blood cell (WBC) differential - 06/10/17 13:28 Blood leukocytes automated count (number/volume) 7.7 10*3/uL 4.3-11.0 Blood erythrocytes automated count (number/volume) 4.39 10*6/uL 4.35-5.85 Venous blood hemoglobin measurement (mass/volume) 14.0 g/dL 11.5-16.0 Blood hematocrit (volume fraction) 41 % 35-52 Automated erythrocyte mean corpuscular volume 94 [foz_us] 80-99 Automated erythrocyte mean corpuscular hemoglobin (mass per erythrocyte) 32 pg 25-34 Automated erythrocyte mean corpuscular hemoglobin concentration measurement ( mass/volume) 34 g/dL 32-36 Automated erythrocyte distribution width ratio 12.9 % 10.0-14.5 Automated blood platelet count (count/volume) 241 10*3/uL 130-400 Automated blood platelet mean volume measurement 10.4 [foz_us] 7.4-10.4 Automated blood neutrophils/100 leukocytes 61 % 42-75 Automated blood lymphocytes/100 leukocytes 33 % 12-44 Blood monocytes/100 leukocytes 5 % 0-12 Automated blood eosinophils/100 leukocytes 1 % 0-10 Automated blood basophils/100 leukocytes 0 % 0-10 Blood neutrophils automated count (number/volume) 4.7 10*3 1.8-7.8 Blood lymphocytes automated count (number/volume) 2.6 10*3 1.0-4.0 Blood monocytes automated count (number/volume) 0.4 10*3 0.0-1.0 Automated eosinophil count 0.1 10*3/uL 0.0-0.3 Automated blood basophil count (count/volume) 0.0 10*3/uL 0.0-0.1 Comprehensive metabolic panel - 06/10/17 13:28 Serum or plasma sodium measurement (moles/volume) 138 mmol/L 135-145 Serum or plasma potassium measurement (moles/volume) 4.0 mmol/L 3.6-5.0 Serum or plasma chloride measurement (moles/volume) 107 mmol/L 98-107 Carbon dioxide 22 mmol/L 21-32 Serum or plasma anion gap determination (moles/volume) 9 mmol/L 5-14 Serum or plasma urea nitrogen measurement (mass/volume) 7 mg/dL 7-18 Serum or plasma creatinine measurement (mass/volume) 0.74 mg/dL 0.60-1.30 Serum or plasma urea nitrogen/creatinine mass ratio 9 NRG Serum or plasma creatinine measurement with calculation of estimated glomerular filtration rate > NRG Serum or plasma glucose measurement (mass/volume) 111 mg/dL 70-105 Serum or plasma calcium measurement (mass/volume) 9.5 mg/dL 8.5-10.1 Serum or plasma total bilirubin measurement (mass/volume) 0.5 mg/dL 0.1-1.0 Serum or plasma alkaline phosphatase measurement (enzymatic activity/volume) 82 U/L 40-136 Serum or plasma aspartate aminotransferase measurement (enzymatic activity/ volume) 21 U/L 5-34 Serum or plasma alanine aminotransferase measurement (enzymatic activity/volume ) 21 U/L 0-55 Serum or plasma protein measurement (mass/volume) 6.7 g/dL 6.4-8.2 Serum or plasma albumin measurement (mass/volume) 4.2 g/dL 3.2-4.5 Serum or plasma troponin i.cardiac measurement (mass/volume) - 06/10/17 13:28 Serum or plasma troponin i.cardiac measurement (mass/volume) < ng/ mL <0.30 Fibrin D-dimer FEU measurement in platelet poor plasma (mass/volume) - 13:28 Fibrin D-dimer FEU measurement in platelet poor plasma (mass/volume) < ug/mL 0.00-0.49 Sputum Gram stain - 06/10/17 14:46 Sputum Gram stain Few WBC's, and mixed bacterial yaquelin NRG Bacterial sputum culture - 06/10/17 14:46 Bacterial sputum culture NORMAL NRG CMP - 07/27/17 08:51 GLUCOSE 100 mg/dL 65-99 UREA NITROGEN (BUN) 10 mg/dL 7-25 CREATININE 0.78 mg/dL 0.50-1.05 eGFR NON-AFR. URUGUAYAN 89 mL/min/1.73m2 > OR=60 eGFR 103 mL/min/1.73m2 > OR=60 BUN/CREATININE RATIO NOT APPLICABLE (calc) 6-22 SODIUM 139 mmol/L 135-146 POTASSIUM 4.4 mmol/L 3.5-5.3 CHLORIDE 105 mmol/L 98-110 CARBON DIOXIDE 30 mmol/L 20-31 CALCIUM 9.6 mg/dL 8.6-10.4 PROTEIN, TOTAL 6.6 g/dL 6.1-8.1 ALBUMIN 4.5 g/dL 3.6-5.1 GLOBULIN 2.1 g/dL (calc) 1.9-3.7 ALBUMIN/GLOBULIN RATIO 2.1 (calc) 1.0-2.5 BILIRUBIN, TOTAL 0.5 mg/dL 0.2-1.2 ALKALINE PHOSPHATASE 74 U/L 33-130 AST 18 U/L 10-35 ALT 17 U/L 6-29 Complete urinalysis with reflex to culture - 07/28/17 13:03 Urine color determination YELLOW NRG Urine clarity determination SLIGHTLY CLOUDY NRG Urine pH measurement by test strip 6.5 5-9 Specific gravity of urine by test strip 1.005 1.016- 1.022 Urine protein assay by test strip, semi-quantitative NEGATIVE NEGATIVE Urine glucose detection by automated test strip NEGATIVE NEGATIVE Erythrocytes detection in urine sediment by light microscopy NEGATIVE NEGATIVE Urine ketones detection by automated test strip NEGATIVE NEGATIVE Urine nitrite detection by test strip NEGATIVE NEGATIVE Urine total bilirubin detection by test strip NEGATIVE NEGATIVE Urine urobilinogen measurement by automated test strip (mass/volume) NORMAL NORMAL Urine leukocyte esterase detection by dipstick NEGATIVE NEGATIVE Automated urine sediment erythrocyte count by microscopy (number/high power field) NONE NRG Automated urine sediment leukocyte count by microscopy (number/high power field ) NONE NRG Bacteria detection in urine sediment by light microscopy MODERATE NRG Squamous epithelial cells detection in urine sediment by light microscopy 25-50 NRG Crystals detection in urine sediment by light microscopy NONE NRG Casts detection in urine sediment by light microscopy NONE NRG Mucus detection in urine sediment by light microscopy NEGATIVE NRG Complete urinalysis with reflex to culture NO NRG Complete blood count (CBC) with automated white blood cell (WBC) differential - 07/28/17 13:56 Blood leukocytes automated count (number/volume) 5.7 10*3/uL 4.3-11.0 Blood erythrocytes automated count (number/volume) 4.67 10*6/uL 4.35-5.85 Venous blood hemoglobin measurement (mass/volume) 15.0 g/dL 11.5-16.0 Blood hematocrit (volume fraction) 43 % 35-52 Automated erythrocyte mean corpuscular volume 93 [foz_us] 80-99 Automated erythrocyte mean corpuscular hemoglobin (mass per erythrocyte) 32 pg 25-34 Automated erythrocyte mean corpuscular hemoglobin concentration measurement ( mass/volume) 35 g/dL 32-36 Automated erythrocyte distribution width ratio 12.5 % 10.0-14.5 Automated blood platelet count (count/volume) 242 10*3/uL 130-400 Automated blood platelet mean volume measurement 10.1 [foz_us] 7.4-10.4 Automated blood neutrophils/100 leukocytes 56 % 42-75 Automated blood lymphocytes/100 leukocytes 38 % 12-44 Blood monocytes/100 leukocytes 5 % 0-12 Automated blood eosinophils/100 leukocytes 1 % 0-10 Automated blood basophils/100 leukocytes 0 % 0-10 Blood neutrophils automated count (number/volume) 3.2 10*3 1.8-7.8 Blood lymphocytes automated count (number/volume) 2.2 10*3 1.0-4.0 Blood monocytes automated count (number/volume) 0.3 10*3 0.0-1.0 Automated eosinophil count 0.0 10*3/uL 0.0-0.3 Automated blood basophil count (count/volume) 0.0 10*3/uL 0.0-0.1 Comprehensive metabolic panel - 07/28/17 13:56 Serum or plasma sodium measurement (moles/volume) 140 mmol/L 135-145 Serum or plasma potassium measurement (moles/volume) 3.7 mmol/L 3.6-5.0 Serum or plasma chloride measurement (moles/volume) 104 mmol/L 98-107 Carbon dioxide 26 mmol/L 21-32 Serum or plasma anion gap determination (moles/volume) 10 mmol/L 5-14 Serum or plasma urea nitrogen measurement (mass/volume) 7 mg/dL 7-18 Serum or plasma creatinine measurement (mass/volume) 0.72 mg/dL 0.60-1.30 Serum or plasma urea nitrogen/creatinine mass ratio 10 NRG Serum or plasma creatinine measurement with calculation of estimated glomerular filtration rate > NRG Serum or plasma glucose measurement (mass/volume) 98 mg/dL 70-105 Serum or plasma calcium measurement (mass/volume) 9.4 mg/dL 8.5-10.1 Serum or plasma total bilirubin measurement (mass/volume) 0.4 mg/dL 0.1-1.0 Serum or plasma alkaline phosphatase measurement (enzymatic activity/volume) 80 U/L 40-136 Serum or plasma aspartate aminotransferase measurement (enzymatic activity/ volume) 18 U/L 5-34 Serum or plasma alanine aminotransferase measurement (enzymatic activity/volume ) 20 U/L 0-55 Serum or plasma protein measurement (mass/volume) 7.2 g/dL 6.4-8.2 Serum or plasma albumin measurement (mass/volume) 4.3 g/dL 3.2-4.5 A1C - 09/20/17 17:09 HEMOGLOBIN A1c 5.3 % of total Hgb <5.7 Encounters ACCT No. Visit Date/Time Discharge Status Pt. Type Provider Facility Loc./Unit Complaint [id number] 02/14/2014 11:47:00 02/14/2014 23:59:59 [facility] Outpatient STALIN PUGA DDS [id number] 10/08/2013 15:20:00 10/08/2013 23:59:59 [facility] Outpatient DON GUADALUPE APRN [id number] 10/08/2013 15:20:00 10/08/2013 23:59:59 CLS Outpatient DON GUADALUPE APRN [id number] 09/19/2013 11:31:00 09/19/2013 23:59:59 CLS Outpatient DON GUADALUPE APRN [id number] 09/18/2013 11:32:00 09/18/2013 23:59:59 [facility] Outpatient DON GUADALUPE APRN [id number] 08/28/2013 13:40:00 08/28/2013 23:59:59 CLS Outpatient KACIE DRIVER DDS [id number] 06/24/2013 10:57:00 06/24/2013 23:59:59 CLS Outpatient ANAYELI PATNDON S [id number] 04/22/2013 14:28:00 04/22/2013 23:59:59 CLS Outpatient MELISSA DAHL MD [id number] 10/30/2012 10:42:00 10/30/2012 23:59:59 CLS Outpatient ANAYELI PATNSAMANTHAA S [id number] 09/19/2012 09:51:00 09/19/2012 23:59:59 CLS Outpatient ANAYELI PATNSAMANTHAA S [id number] 09/17/2012 10:37:00 09/17/2012 23:59:59 CLS Outpatient [id number] 07/25/2012 15:19:00 07/25/2012 23:59:59 CLS Outpatient ANAYELI PATNSAMANTHAA S [id number] 06/05/2012 13:36:00 06/05/2012 23:59:59 CLS Outpatient SAMANTHA GUADALUPE APRNA S [id number] 04/03/2013 14:55:00 Document Registration [id number] 02/22/2013 14:23:00 Document Registration [email or web address] 04/01/2015 05:09:24 ACT Document Registration [id number] 03/01/2018 11:00:00 03/01/2018 23:59:59 CLS Outpatient WILD RODRIGUEZ APRN [facility] [id number] 09/20/2017 16:00:00 Document Registration [id number] 07/27/2017 08:40:00 Document Registration [id number] 05/12/2017 10:01:00 05/12/2017 23:59:00 DIS Outpatient RK FU [id number] 12/09/2016 18:40:00 12/09/2016 23:59:00 DIS Outpatient Suhas Willett [id number] 12/08/2017 08:08:00 01/08/2018 13:43:00 [facility] WHIPLASH INJUR[facility] [id number] 11/23/2017 09:02:00 11/23/2017 23:59:59 CLS Outpatient KEELY GARG Via [facility] RAD N63.20 LT BREAST LUMP; Z13.820 OSTEOPOROSIS SCREENI [id number] 11/09/2017 09:27:00 11/09/2017 23:59:59 CLS Preadmit KEELY GARG Via [facility] RAD Z13.820 SCREENING FOR OSTEOPOROSIS [id number] 07/28/2017 12:43:00 07/28/2017 15:27:00 DIS Emergency MAU HOFFMANN MD Via [facility] ER DIZZY/PASSING OUT [id number] 06/21/2017 10:43:00 06/21/2017 23:59:59 CLS Preadmit RK FU MD [facility] REHAB NECK PAIN [id number] 06/10/2017 13:23:00 06/10/2017 17:17:00 DIS Emergency MAYELIN ARAGON [facility] ER CP, COUGHING [id number] 04/14/2017 11:37:00 04/14/2017 23:59:59 CLS Outpatient COLTHARP DO GEORGIANA A Via [facility] RAD R06.02 [id number] 01/18/2017 10:16:00 01/18/2017 14:30:00 DIS Outpatient ROSALIE BELLO DO B [facility] ENDO BLACK TARRY STOOLS [id number] 01/16/2017 05:41:00 01/16/2017 13:30:00 DIS Outpatient ROSALIE BELLO DO B [facility] PREOP BLACK TARRY STOOLS [id number] 12/15/2016 09:35:00 12/15/2016 23:59:59 CLS Outpatient SUHAS WILLETT MD [facility] CARD ABD PAIN RLQ [id number] 11/25/2016 10:08:00 11/25/2016 23:59:59 CLS Outpatient JOAN WILLETT [facility] RAD SCREENING [id number] 07/15/2016 14:09:00 07/15/2016 16:43:00 DIS Emergency MAYELIN ARAGON [facility] ER FALL LEFT WRIST/HAND INJURY [id number] 05/19/2016 09:59:00 05/19/2016 23:59:59 CLS Outpatient WING HUNTER DO [facility] RAD ABDOMINAL PAIN [id number] 01/18/2016 07:09:00 01/18/2016 23:59:59 CLS Outpatient JERO DAMON [facility] LAB MIXED PHYERLIPIDEMIA [id number] 01/18/2016 07:05:00 01/18/2016 23:59:59 CLS Outpatient YISSEL MARSHALL, CINDY Gordon [facility] CARD CHEST PAIN SYNDROME, DYSPNEA,MILD HLP,ANXIETY [id number] 01/07/2016 15:21:00 01/07/2016 23:59:59 CLS Outpatient SUHAS WILLETT MD [facility] RAD R ANKLE SPRAIN [id number] 11/12/2015 08:45:00 11/12/2015 23:59:59 CLS Outpatient SUHAS WILLETT MD [facility] CARD FATIGUE,WEIGHT GAIN, PALPITATIONS,POLYPHAGIA, [id number] 09/29/2015 09:43:00 09/29/2015 15:25:00 DIS Outpatient WING HUNTER DO [facility] VIN3; CHRONIC PELVIC PAIN [id number] 09/23/2015 10:18:00 09/23/2015 23:59:59 CLS Outpatient WING HUNTER DO [facility] PREOP VIN3; CHRONIC PELVIC PAIN [id number] 09/23/2015 08:29:00 09/23/2015 23:59:59 CLS Outpatient WING HUNTER DO [facility] RAD CHRONIC PELVIC PAIN, RUQ ABD PAIN [id number] 08/17/2015 10:07:00 08/17/2015 23:59:59 CLS Outpatient JERO DAMON [facility] LAB MILD HLP [id number] 04/24/2015 10:49:00 04/24/2015 23:59:59 CLS Preadmit FIGUEROA ESQUEDA MD [facility] REHAB [id number] 03/31/2015 11:39:00 03/31/2015 23:59:59 CLS Outpatient FIGUEROA ESQUEDA MD [facility] RAD LUMBAGO [id number] 03/31/2015 11:33:00 03/31/2015 23:59:59 CLS Outpatient KALPANA JACINTO MD [facility] RAD STONES [id number] 03/24/2015 14:06:00 03/24/2015 23:59:59 CLS Outpatient KALPANA JACINTO MD [facility] RAD STONE [id number] 03/03/2015 22:34:00 03/04/2015 01:43:00 DIS Emergency PETER DOEMMY [facility] ER PELVIC PRESSURE/BLEEDING [id number] 09/17/2014 11:40:00 09/17/2014 23:59:59 CLS Outpatient CINDY DEY MD [facility] CARD CPFAZAL,TOBACCO USE [id number] 09/04/2014 20:00:00 09/04/2014 23:59:59 CLS Preadmit CINDY DEY MD [facility] SLEEP SNORING FATIGUE LOSS OF ENERGY [id number] 09/02/2014 13:52:00 09/02/2014 23:59:59 CLS Outpatient CINDY DEY MD [facility] CARD CPFAZAL,TOBACCO USE [id number] 08/25/2014 08:20:00 08/25/2014 23:59:59 CLS Outpatient CINDY DEY MD [facility] LAB CHEST PAIN SYNDROME, FATIGUE,OBESITY,TOBACCO USER [id number] 06/26/2014 09:52:00 06/26/2014 23:59:59 CLS Outpatient SUHAS WILLETT MD [facility] RAD HEADACHES [id number] 03/06/2014 13:13:00 03/31/2014 14:00:00 DIS Outpatient RK FU MD [facility] REHAB BACK PAIN [id number] 03/12/2014 08:13:00 03/12/2014 23:59:59 CLS Outpatient RK FU MD [facility] REHAB S/P R RTC REPAIR [id number] 03/06/2014 13:46:00 03/06/2014 14:58:00 DIS Emergency MARIANNE STOVER MD [facility] ER BACK PAIN/HEADACHE [id number] 11/29/2013 12:54:00 11/29/2013 23:59:59 CLS Outpatient SUHAS WILLETT MD [facility] LAB URINARY FREQ,BURNING ON URINATION [id number] 06/03/2013 12:59:00 06/18/2013 14:56:00 DIS Outpatient DON GUADALUPE [facility] REHAB BACK PAIN W RADICULOPATHY [id number] 04/01/2013 16:01:00 04/01/2013 18:00:00 DIS Emergency NERIS BOSS APRN [facility] ER BACK PAIN [id number] 12/20/2012 13:07:00 12/20/2012 23:59:59 CLS Outpatient DON GUADALUPE [facility] RAD BREAST CA [id number] 05/13/2015 09:21:00 Document Registration [id number] 06/26/2014 09:53:00 Document Registration [id number] 06/26/2014 09:53:00 Document Registration [id number] 06/26/2014 09:53:00 Document Registration [id number] 06/26/2014 09:53:00 Document Registration [id number] 06/26/2014 09:53:00 Document Registration [id number] 06/26/2014 09:53:00 Document Registration [id number] 06/26/2014 09:53:00 Document Registration [id number] 02/09/2012 10:31:00 Document Registration [id number] 12/06/2011 10:42:00 Document Registration [id number] 11/07/2011 14:07:00 Document Registration [id number] 11/02/2011 17:11:00 Document Registration [id number] 01/11/2011 10:42:00 Document Registration [id number] 12/23/2010 12:59:00 Document Registration [id number] 11/22/2010 13:59:00 Document Registration [id number] 10/27/2010 13:51:00 Document Registration [id number] 09/02/2010 11:28:00 Document Registration [id number] 03/19/2010 12:00:00 Document Registration [id number] 03/18/2010 08:56:00 Document Registration [id number] 12/25/2009 10:58:00 Document Registration [id number] 11/04/2009 13:11:00 Document Registration [id number] 10/26/2009 14:40:00 Document Registration [id number] 08/17/2009 14:23:00 Document Registration [id number] 06/25/2009 11:48:00 Document Registration [id number] 05/28/2009 08:00:00 Document Registration [id number] 05/25/2009 10:37:00 Document Registration [id number] 03/06/2009 08:46:00 Document Registration
[2018-04-23] MEDS ORDERED: HYDROcodone/APAP 5 MG/325 MG (LORTAB) TAB PO ONE (14:30)
[2018-04-23] MEDS ORDERED: HYDR-4226 PO (14:33)
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
[2018-04-23 15:24] VITALS: BP 114/78
--- NOTE | 2018-04-24 08:31 | Diagnostic Imaging Report ---
PATIENT HISTORY: Fall three days ago with injury to the left humerus and shoulder. TECHNIQUE: Three views of the left shoulder. Two views of the left humerus. COMPARISON: None. FINDINGS: No acute fracture or dislocation is seen in the left shoulder or the left humerus. Alignment appears normal. The joint spaces are preserved. Mild irregularity at the greater tuberosity can be seen with chronic rotator cuff injury. IMPRESSION: No acute osseous abnormality seen in the left shoulder or left humerus. Dictated by: Dictated on workstation # [id number]
== END 2018-04-23 15:25 | disposition home or self-care (01) ==
LOC: EDUNIT# 11:23 → ER 11:24
DX: M24.812 Other specific joint derangements of left shoulder, not elsewhere classified (principal); E78.00 Pure hypercholesterolemia, unspecified; G43.909 Migraine, unspecified, not intractable, without status migrainosus; F41.9 Anxiety disorder, unspecified; F31.9 Bipolar disorder, unspecified; K21.9 Gastro-esophageal reflux disease without esophagitis; F12.10 Cannabis abuse, uncomplicated; F17.210 Nicotine dependence, cigarettes, uncomplicated; Z88.8 Allergy status to other drugs, medicaments and biological substances; Z87.19 Personal history of other diseases of the digestive system; Z82.49 Family history of ischemic heart disease and other diseases of the circulatory system; Z80.3 Family history of malignant neoplasm of breast; Z90.89 Acquired absence of other organs; Z86.19 Personal history of other infectious and parasitic diseases; Z90.710 Acquired absence of both cervix and uterus; Z79.51 Long term (current) use of inhaled steroids; Z79.52 Long term (current) use of systemic steroids; W19.XXXA Unspecified fall, initial encounter; Y92.524 Gas station as the place of occurrence of the external cause
CPT/HCPCS: 73030; 73060

== ENCOUNTER 2018-05-17 07:07 | Outpatient (CLI) | payer MEDICAID ==
[~2018-05-17] VITALS: Ht 172.7 cm; Wt 91.2 kg
[~2018-05-17 07:07] MED LIST changes: +HYDR-4226 PO
[2018-05-17] MEDS ORDERED: ALPR1TAB7 PO (11:56)
[2018-05-22] MEDS ORDERED: IBUP-1773 PO (10:59)
[2018-05-22] MEDS ORDERED: BENZ78AE2 TP (10:59)
[2018-05-22] MEDS ORDERED: HYDR-4226 PO (10:59)
== END 2018-05-17 12:05 | disposition home or self-care (01) ==
LOC: PREOP 07:07
PROVIDERS: ATTEND Obstetrics & Gynecology
DX: Z01.818 Encounter for other preprocedural examination (principal)

== ENCOUNTER 2018-05-22 08:48 | Day surgery (SDC) | payer MEDICAID ==
[~2018-05-22] VITALS: Ht 172.7 cm; Wt 91.2 kg
[~2018-05-22 08:48] MED LIST changes: +ALPR1TAB7 PO
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
--- OUTSIDE RECORDS SUMMARY | 2018-05-22 08:53 | XMS REPORT ---
Author Author WILD RODRIGUEZ Organization [facility] Address [address] [place] [address] Care Team Providers Care Bedspring Assembler Name Role Phone WILD RODRIGUEZ Unavailable PROBLEMS Type Condition ICD9-CM Code [id number] Code Onset Dates Condition Status SNOMED Code Problem Generalized anxiety disorder F41.1 Active 22350622 Problem PTSD (post-traumatic stress disorder) F43.10 Active 94141937 Problem Cannabis abuse F12.10 Active 63911999 Problem Prediabetes 790.29 Active 0226985 Problem Mixed hyperlipidemia E78.2 Active 520744257 Problem Major depressive disorder, recurrent episode, moderate F33.1 Active 527027022 Problem GERD with esophagitis K21.0 Active 954819528 Problem Cocaine use disorder, moderate, in sustained remission F14.21 Active 57374337 Problem Alcohol use disorder, mild, 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 Active 75669396 Problem Tobacco use Z72.0 Active 252201108 Problem Methamphetamine use disorder, severe, 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 [id number] [id number] Aug, [facility] [address] [id number] [id number] May, Dental examination Z01.20 and Caries K02.9 [facility] [address]005[address], [place] [address] May, Common wart B07.8 [facility] [address], [place] [address] May, [place] [id number], [place] [address]69 27 Apr, 2018 Cocaine use disorder, moderate, in sustained remission F14.21 [place] [address], [place] [address] 14 Apr, 2018 [facility] [address] [id number] 13 Apr, 2018 Dental examination Z01.20 [facility] [id number] [place] [address] [id number] 10 Mar, 2018 Encounter for dental exam and cleaning w/o abnormal findings Z01.20 [place] [id number] [place] [address] 94466- 3542 Mar, [place] [id number] [place] [address] 74359- 6020 Feb, Cocaine use disorder, moderate, in sustained [...] Major depressive disorder, recurrent episode, moderate F33.1 [place] [address] [id number], [place] [address] Jan, Cocaine use disorder, moderate, in sustained remission F14.21 [place] [address], [place] [address] Jan, Cocaine use disorder, moderate, in sustained [...] Major depressive disorder, recurrent episode, moderate F33.1 [facility] [id number] [place] [address] 65883- 8696 Jan, Dysuria R30.0 and GERD with esophagitis K21.0 [facility] [id number] [place] [address] 67[address]- 7586 December, Major depressive disorder, recurrent episode, moderate F33.1 [place] [address] [address] December, [place] [id number] [place] [address] 22440- 7090 December, Major depressive disorder, recurrent episode, moderate [...] sustained remission F10.11 and Tobacco use Z72.0 [address] [place] [address]00- 2552 Nov, [facility] [address] [place] [id number] [place] [address] Nov, [address] [place] [address] 17193- 7651 Nov, Wellness examination Z00.00 ; Encounter for immunization Z23 ; Screening for osteoporosis Z13.820 ; Screening for breast cancer Z12.31 and Left breast lump N63.20 [facility] [address] [place] [id number] Oct, Dental examination Z01.20 [facility] [id number] [place] [address] 88522- 6838 Oct, [place] [id number] [place] [address] 69619- 0156 Oct, [place] [address], [place] [address] 16 Sep, 2017 [facility] [id number] [place] [address] 04212- 9494 15 Sep, 2017 [facility] [id number] [place] [address] 92923- 6351 14 Sep, 2017 Left otitis media with effusion H65.92 ; Acute suppurative otitis media of right ear without spontaneous rupture of tympanic membrane, recurrence not specified H66.001 ; Dizziness R42 and Fatigue 780.79 [facility] [id number] [place] [address] 37977- 9199 Aug, Major depressive disorder, recurrent episode, moderate [...] sustained remission F10.11 and Tobacco use Z72.0 [facility] [id number] [place] [address] Aug, Ingrown right big toenail L60.0 [facility] [id number] [place] [address] 26115- 5116 Aug, [facility] [id number] [place] [address] 53056- 6282 Aug, PTSD (post-traumatic stress disorder) F43.10 [facility] [address] [place] [address] 17773- 6850 Aug, Major depressive disorder, recurrent episode, moderate F33.1 ; Generalized anxiety disorder F41.1 and Cannabis abuse F12.10 [facility] [id number] [place] [address] 13338- 8432 Jul, [facility] [id number] [place] [address] 92634- 0204 Jul, [facility] [address], [place] [address] 74[address] Jul, [facility] [id number] [place] [address] [address] Jul, Major depressive disorder, recurrent episode, moderate F33.1 ; Generalized anxiety disorder F41.1 and Cannabis abuse F12.10 [place] [id number] [place] [address] 01458- 9172 Jul, [facility] [id number] [place] [address] 27359- 2146 Jul, [place] [id number] [place] [address] 24825- 3958 Jul, Hyperlipidemia 272.4 [place] [id number] [place] [address] 53589- 3683 Jul, PTSD (post-traumatic stress disorder) F43.10 [place] [address], [place] [address] 7434 Jul, Tobacco use Z72.0 ; Alcohol use [...] anxiety disorder F41.1 and Cannabis abuse F12.10 [place] [address], [place] [address] Jul, [place] [id number] [place] [address] Jul, Dysuria R30.0 and Mixed hyperlipidemia E78.2 [facility] [address], [place] [address] 9863 Jun, Major depressive disorder, recurrent episode, moderate F33.1 ; Generalized anxiety disorder F41.1 and Cannabis abuse F12.10 [facility] [address], [place] [address]- 8309 Jun, [facility] [id number] [place] [address] 91628- 5630 Jun, Generalized anxiety disorder F41.1 ; Major [...] F14.21 and Tobacco use Z72.0 [facility] [address] [place] [address] 08485- 5297 Jun, Major depressive disorder, recurrent episode, moderate F33.1 ; Generalized anxiety disorder F41.1 and Cannabis abuse F12.10 [facility] [address] [place] [address] 83227- 3023 Jun, [facility] [id number] [place] [address] 60908- 9848 Jun, [facility] [id number] [place] [address] 99654- 0486 Jun, Major depressive disorder, recurrent episode, moderate F33.1 ; Generalized anxiety disorder F41.1 and Cannabis abuse F12.10 [facility] [address] [place] [address] [id number] Mar, Dental examination Z01.20 [facility] [id number] [place] [address] [id number] Feb, Dental examination Z01.20 [facility] [address] [place] [address] 47779- 1176 Mar, [facility] [address] [place] [address] 12418- 8246 Mar, [facility] [address] [facility] [facility] [id number], [place] [address] 8[address] 15 Feb, 2015 Hyperlipidemia 272.4 and Prediabetes 790.29 [facility] [address], [place] [address]- 1781 Feb, Fatigue 780.79 and Hyperlipidemia 272.4 [facility] [address], [place] [address]- 5074 Feb, Lumbago 724.2 ; Hyperlipidemia 272.4 ; Insomnia 780.52 and Fatigue 780.79 [facility] [address], [place] [address]- 4854 Nov, [facility] [address], [place] [address]- 1078 Nov, [facility] [address], [place] [address]- 8767 Mar, [facility] [address], [place] [address]- 7794 Mar, [facility] [address], [place] [address]- 5100 Jan, [facility] [address], [place] [address]- 0717 Jan, [facility] [id number], [place] [address]- 6012 December, [facility] [id number], [place] [address]- 9781 December, [facility] [id number] [place] [address]- 2128 Nov, [facility] [id number], [place] [address]- 4052 Nov, [facility] [id number], [place] [address]- 2574 Nov, [facility] [id number] [place] [address]- 1253 28 Nov, 2013 [facility] [address] [id number] [place] [address]- 4366 Nov, [facility] [place] [facility] [address] [id number] [place] [address]- 7096 28 Nov, 2013 [facility] [address] [id number] [place] [address]- 7520 31 Oct, 2013 [facility] [place] [facility] [address] [id number] [place] [address]- 8585 31 Oct, 2013 [facility] [place] [facility] [address] [id number] [place] [address]- 0005 20 Oct, 2013 [facility] [place] [facility] [address] [id number] [place] [address]- 3068 20 Oct, 2013 [facility] [address] [id number] [place] [address]- 2811 Oct, [facility] [address] [id number] [place] [address]- 1011 19 Oct, 2013 [facility] [place] [facility] [address] [id number] [place] [address]- 0990 Oct, [facility] [address] [id number] [place] [address]- 5714 Oct, [facility] [place] [facility] [address] [id number] [place] [address]- 9855 11 Oct, 2013 [facility] [place] [facility] [address] [id number] [place] [address]- 0845 Oct, [facility] [place] [facility] [address] [id number] [place] 7190 04 Oct, 2013 [facility] [place] [facility] [address] [id number] [place] [address]- 4559 Oct, [facility] [place] [facility] [address] [id number] [place] [address]- 5845 Oct, [facility] [place] [facility] [address] [id number] [place] [address]- 8230 24 Sep, 2013 [facility] [place] [facility] [address] [id number] [place] [address]- 4356 24 Sep, 2013 [facility] [place] [facility] [address] [id number] [place] [address]- 4845 20 Sep, 2013 [facility] [place] [facility] [address] [id number] [place] [address]- 1889 20 Sep, 2013 [facility] [place] [facility] [address] [id number] [place] [address]- 8181 Sep, [facility] [place] [facility] [address] [id number] [place] [address]- 6487 20 Sep, 2013 [facility] [place] [facility] [address] [facility] [facility] [id number] [place] [address]- 9480 18 Sep, 2013 [facility] [place] [facility] [address] [id number] [place] [address]- 3053 18 Sep, 2013 [facility] [place] [facility] [address] [facility] [address] [facility] [id number] [place] [address]- 6376 14 Sep, 2013 [facility] [place] [facility] [address] [facility] [facility] [id number] [place] [address]- 6223 14 Sep, 2013 [facility] [place] [facility] [address] [id number] [place] [address]- 6508 14 Sep, 2013 [facility] [place] [facility] [address] [facility] [facility] [id number] [place] [address]- 8901 14 Sep, 2013 [facility] [place] [facility] [address] [facility] [facility] [id number] [place] [address]- 6074 14 Sep, 2013 [facility] [place] [facility] [address] [id number] [place] [address]- 6303 14 Sep, 2013 [facility] [place] [facility] [address] [facility] [facility] [id number] [place] [address]- 2915 13 Sep, 2013 [facility] [place] [facility] [address] [id number] [place] [address]- 8707 Sep, [facility] [place] [facility] [address] [id number] [place] [address]- 7781 Sep, [facility] [place] [facility] [address] [id number] [place] [address]- 3741 Sep, [facility] [place] [facility] [address] [id number] [place] [address]- 1095 Sep, [facility] [place] [facility] [address] [id number] [place] [address]- 0951 Sep, [facility] [place] [facility] [address] [id number] [place] [address]- 0865 Aug, [facility] [place] [facility] [address] [id number] [place] [address]- 0316 Aug, [facility] [place] [facility] [address] [id number] [place] [address]- 9293 Aug, [facility] [place] [facility] [address] [id number] [place] [address]- 1142 Aug, [facility] [place] [facility] [address] [id number] [place] [address]- 8213 Aug, [facility] [place] [facility] [address] [id number] [place] [address]- 3632 Jul, [facility] [place] [facility] [address] [id number], [place] [address]- 7887 Jul, [facility] [place] [facility] [address] [id number] [place] [address]- 1015 Jul, [facility] [place] [facility] [address] [id number] [place] [address]- 2167 Jul, [facility] [place] [facility] [address] [id number] [place] [address]- 4232 Jul, [facility] [place] [facility] [address] [id number], [place] [address]- 0063 Jul, [facility] [place] [facility] [address] [id number] [place] [address]- 4621 Jul, [facility] [place] [facility] [address] [id number] 0264 Jul, [facility] [place] [facility] [address] [facility] [id number] [place] [address]- 1257 Jul, [facility] [place] [facility] [address] [id number], [place] [address]- 9096 Jun, [facility] [place] [facility] [address] [id number] [place] [address]- 5264 Jun, [facility] [place] [facility] [address] [id number] [place] [address]- 2298 Jun, [facility] [place] [facility] [address] [id number], [place] [address]- 9891 Jun, [facility] [place] [facility] [address] [id number], [place] [address]- 9951 Jun, [facility] [place] [facility] [address] [id number], [place] [address]- 4989 Jun, [facility] [place] [facility] [address] [id number], [place] [address]- 8106 Jun, [facility] [place] [facility] [address] [id number], [place] [address]- 8028 Jun, [facility] [place] [facility] [address] [id number], [place] [address]- 3847 Jun, [facility] [place] [facility] [address] [id number], [place] [address]- 5818 Jun, [facility] [place] [facility] [address] [id number], [place] [address]- 8359 May, [facility] [place] [facility] [address] [id number] [place] [address]- 5821 May, [facility] [place] [facility] [address] [id number] [place] [address]- 0763 May, [facility] [place] [facility] [address] [id number] [place] [address]- 3299 May, [facility] [place] [facility] [address] [id number] [place] 6976 16 May, 2013 [facility] [place] [facility] [address] [id number] [place] [address]- 5905 May, [facility] [place] [facility] [address] [id number] [place] [address]- 2241 May, [facility] [place] [facility] [address] [id number] [place] [address]- 5254 May, [facility] [place] [facility] [address] [id number] [place] [address]- 2156 May, [facility] [place] [facility] [address] [id number] [place] [address]- 0753 Apr, [facility] [place] [facility] [address] [id number] [place] [address]- 0616 16 Apr, 2013 [facility] [place] [facility] [address] [id number] [place] [address]- 3224 Apr, [facility] [place] [facility] [address] [id number] [place] [address]- 3829 Apr, [facility] [place] [facility] [address] [id number] [place] [address]- 8266 Mar, [facility] [place] [facility] [address] [id number] [place] [address]- 2541 Mar, [facility] [place] [facility] [address] [id number] [place] [address]- 7327 Mar, [facility] [place] [facility] [address] [id number] [place] [address]- 6191 Mar, [facility] [place] [facility] [address] [id number] [place] [address]- 2630 Mar, [facility] [address] [id number] [place] [address]- 1802 Mar, [facility] [place] [facility] [address] [id number] [place] [address]- 9541 Mar, [facility] [place] [facility] [address] [id number] [place] [address]- 0623 Feb, [facility] [place] [facility] [address] [id number] [place] [address]- 1090 Feb, [facility] [place] [facility] [address] [id number] [place] [address]- 8621 Feb, [facility] [place] [facility] [address] [id number] [place] [address]- 7763 Feb, [facility] [place] [facility] [address] [id number] [place] [address]- 9867 Feb, [facility] [place] [facility] [address] [id number] [place] [address]- 1804 Feb, [facility] [place] [facility] [address] [id number] [place] [address]- 1067 Feb, [facility] [place] [facility] [address] [id number] [place] [address]- 7194 Feb, [facility] [place] [facility] [address] [id number] [place] [address]- 8015 Feb, [facility] [place] [facility] [address] [id number] [place] [address]- 4952 Feb, [facility] [place] [facility] [address] [id number] [place] [address]- 5335 Feb, [facility] [place] [facility] [address] [id number] [place] [address]- 7200 Jan, [facility] [place] [facility] [address] [id number] [place] [address]- 8075 Jan, [facility] [place] [facility] [address] [id number] [place] [address]- 7752 December, [facility] [address] [id number] [place] [address]- 0865 December, [facility] [address] [id number] [place] [address]- 1465 Nov, [facility] [address] [id number] [place] [address]- 5690 Nov, [facility] [address] [id number] [place] [address]- 4034 Oct, [facility] [address] [id number] [place] [address]- 2152 Oct, [facility] [address] [id number] [place] [address]- 7931 Oct, [facility] [address] [id number] [place] [address]- 3998 Oct, [facility] [address] [id number] [place] [address]- 5755 Sep, [facility] [address] [id number] [place] [address]- 1130 Sep, [facility] [address] [facility] [id number] [place] [address]- 6131 Sep, [facility] [address] [id number] [place] [address]- 6796 Sep, [facility] [address] [id number] [place] [address]- 1786 Aug, [facility] [place] [facility] [address] [id number] [place] [address]- 5694 Aug, [facility] [place] [facility] [address] [id number] [place] 9199 Jul, [facility] [address] [id number] [place] [address]- 0794 Jul, [facility] [place] [facility] [address] [id number] [place] [address]- 5720 Jul, [facility] [place] [facility] [address] [id number] [place] [address] Jul, [facility] [place] [facility] [address] [id number] [place] [address] Jul, [facility] [place] [facility] [address] [id number] [place] [address] Jul, [facility] [place] [facility] [address] [id number] [place] [address] Jun, [facility] [place] [facility] [address] [id number] [place] [address] Jun, [facility] [place] [facility] [address] [id number] [place] [address] Jun, [facility] [place] [facility] [address] [id number] [place] [address] Jun, [facility] [place] [facility] [address] [id number] [place] [address] Jun, [facility] [place] [facility] [address] [id number] [place] [address] May, [facility] [place] [facility] [address] [id number] [place] [address] May, [facility] [place] [facility] [address] [id number], [place] [address] May, [facility] [place] [facility] [address] [id number] [place] [address] May, [facility] [place] [facility] [address] [id number], [place] [address] May, [facility] [place] [facility] [address] [id number], [place] [address] May, [facility] [place] [facility] [address] [id number], [place] [address] May, [facility] [place] [facility] [address] [id number] [place] [address] May, [facility] [place] [facility] [address] [id number] [place] [address] Mar, [facility] [place] [facility] [address] [id number] [place] [address] 79[address] Mar, [facility] [place] [facility] [address] [id number] [place] [address] Mar, [facility] [place] [facility] [address] [id number] [place] [address] [address] Feb, [facility] [place] [facility] [address] [id number] [place] [address] 39[address] Feb, [facility] [place] [facility] [address] [id number] [place] [address] 35[address] Feb, [facility] [place] [facility] [address] [id number] [place] [address] Feb, [facility] [place] [facility] [address] [id number] [place] [address] Jan, [facility] [place] [facility] [address] [id number] [place] [address] Jan, [facility] [place] [facility] [address] [id number] [place] [address] Jan, [facility] [place] [facility] [address] [id number] [place] [address] December, [facility] [place] [facility] [address] [id number] [place] [address] Nov, [facility] [place] [facility] [address] [id number] [place] [address] Oct, [facility] [place] [facility] [address] [id number] [place] [address] Oct, [facility] [place] [facility] [address] [id number] [place] [address] Oct, [facility] [address] [id number] [place] [address] Oct, [facility] [place] [facility] [address] [id number] [place] [address] Aug, [facility] [address] [id number] [place] [address] Aug, [facility] [address] [id number] [place] [address] 25[address] Aug, [facility] [address] [id number] [place] [address] 79[address] Aug, [facility] [address] [id number] [place] [address] 49[address] Aug, [facility] [address] [id number] [place] [address] 1493 Aug, [facility] [address] [id number] [place] [address] Aug, [facility] [address] [id number] [place] [address] Aug, [facility] [address] [id number] [place] [address] 66[address] Jul, [facility] [address] [id number] [place] [address] Jun, [facility] [address] [id number] [place] [address]46 Jun, [facility] [facility] [place] [facility] [address] [id number] [place] [address] Jul, [facility] [place] [facility] [address] [id number] [place] [address] Jul, [facility] [place] [facility] [address] [id number] [place] [address] Jul, [facility] [place] [facility] [address] [id number] [place] [address] 14 Jul, 2010 [facility] [place] [facility] [address] [id number] [place] [address] 14 Jul, 2010 [facility] [place] [facility] [address] [id number] [place] [address] 24 Jun, 2010 [facility] [place] [facility] [address] [id number] [place] [address] May, [facility] [place] [facility] [address] [id number] [place] [address] Mar, [facility] [place] [facility] [address] [id number] [place] [address] Oct, [facility] [place] [facility] [address] [id number] [place] [address] Aug, [facility] [place] [facility] [address] [id number] [place] [address] 15 Jul, 2009 [facility] [place] [facility] [address] [id number] [place] [address] Jul, [facility] [place] [facility] [address] [id number], [place] [address] Jun, [facility] [place] [facility] [address] [id number], [place] [address] Jun, [facility] [place] [facility] [address] [id number], [place] [address] May, [facility] [place] [facility] [address] [id number] [place] [address] May, [facility] [place] [facility] [address] [id number], [place] [address] Mar, [facility] [place] [facility] [address] [id number] [place] [address] 14 Mar, 2009 [facility] [place] [facility] [address] [facility] [id number] [place] [address] Oct, IMMUNIZATIONS No Known Immunizations SOCIAL HISTORY Never Assessed REASON FOR VISIT wart removal -[place] [employer] PLAN OF CARE Activity Details Future/Pending Procedure WART DESTRUCT 08-20 (CRYO) VITAL SIGNS Height 68 in 2018-05-08 Weight 204.5 lbs 2018-05-08 Temperature 98.7 degrees Fahrenheit 2018-05-08 Heart Rate 97 bpm 2018-05-08 Respiratory Rate 18 2018-05-08 Oximetry 99 % 2018-05-08 BMI 31.09 kg/m2 2018-05-08 Blood pressure systolic 132 mmHg 2018-05-08 Blood pressure diastolic 70 mmHg 2018-05-08 MEDICATIONS Medication Instructions Dosage Frequency Start Date End Date Duration Status Trazodone HCl 100 MG Orally Once a day 1 tablet at bedtime 24h Feb, Not-Taking Effexor XR 37.5 MG Orally Once a day 1 capsule with food 24h Jan, 30 days Not-Taking Protonix 40 MG Orally Once a day 1 tablet 24h 30 Not-Taking Xanax 1 mg Orally three times a day 1 tablet 8h 30 days Active RESULTS No Results PROCEDURES Procedure Date Ordered Result Body Site DESTRUCT LESION, 1-14 May 08, 2018 INSTRUCTIONS MEDICATIONS ADMINISTERED No Known Medications [...]
--- OUTSIDE RECORDS SUMMARY | 2018-05-22 08:53 | XMS REPORT ---
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 Name Role Phone JOSEVASQUEZ ZUNIGA Unavailable PROBLEMS Type Condition ICD9-CM Code ZEH44-KG Code Onset Dates Condition Status SNOMED Code Problem Generalized anxiety disorder F41.1 Active 55253991 Problem PTSD (post-traumatic stress disorder) F43.10 Active 24896913 Problem Cannabis abuse F12.10 Active 87831930 Problem Prediabetes 790.29 Active 6142932 Problem Mixed hyperlipidemia E78.2 Active 163953017 Problem Major depressive disorder, recurrent episode, moderate F33.1 Active 200256661 Problem GERD with esophagitis K21.0 Active 219345407 Problem Cocaine use disorder, moderate, in sustained remission F14.21 Active 36720333 Problem Alcohol use disorder, mild, 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 Active 76279186 Problem Tobacco use Z72.0 Active 947542174 Problem Methamphetamine use disorder, severe, 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 Active 55395434 Problem Opioid use disorder, moderate, in sustained remission F11.21 Active 83340448 ALLERGIES No Information ENCOUNTERS Encounter Location Date Diagnosis [facility] [address] [facility] [id number] [place] [address] [id number] Aug, [facility] [id number] [place] [address] [id number] May, Dental examination Z01.20 and Caries K02.9 [facility] [id number] [place] [address] 60628- 8523 May, Common wart B07.8 [facility] [id number] [place] [address] 79505- 1834 May, [facility] [id number] [place] [address] 80754- 1071 Apr, Cocaine use disorder, moderate, in sustained remission F14.21 [facility] [address] [address] 9930 14 Apr, 2018 [facility] [id number] [place] [address] [id number] 13 Apr, 2018 Dental examination Z01.20 [facility] [id number] [place] [address] [id number] 10 Mar, 2018 Encounter for dental exam and cleaning w/o abnormal findings Z01.20 [facility] [id number] [place] [address] 78419- 3232 07 Mar, 2018 [facility] [address] [id number] [place] [address] 91472- 8988 Feb, Cocaine use disorder, moderate, in sustained [...] Major depressive disorder, recurrent episode, moderate F33.1 [facility] [id number] [place] [address] 95429- 0046 Jan, Cocaine use disorder, moderate, in sustained remission F14.21 [facility] [id number] [place] [address] 48341- 6395 Jan, Cocaine use disorder, moderate, in sustained [...] Major depressive disorder, recurrent episode, moderate F33.1 [facility] [id number] [place] [address] 79876- 4491 Jan, Dysuria R30.0 and GERD with esophagitis K21.0 [facility] [id number] [place] [address] 13866- 9519 December, Major depressive disorder, recurrent episode, moderate F33.1 [facility] [id number] [place] [address] 18164- 6297 December, [facility] [id number] [place] [address] 90138- 7513 December, Major depressive disorder, recurrent episode, moderate [...] sustained remission F10.11 and Tobacco use Z72.0 [facility] [id number] [place] [address] 38755- 2830 Nov, [facility] [address] [place] [id number] [place] [address] Nov, [place] [id number] [place] [address] 48215- 4316 Nov, Wellness examination Z00.00 ; Encounter for immunization Z23 ; Screening for osteoporosis Z13.820 ; Screening for breast cancer Z12.31 and Left breast lump N63.20 [facility] [id number] [place] [address] [id number] Oct, Dental examination Z01.20 [facility] [id number] [place] [address] 80682- 3489 Oct, [facility] [id number] [place] [address] 76447- 8364 Oct, [facility] [id number] [place] [address] 20755- 8099 Sep, [facility] [id number] [place] [address] 22048- 7518 15 Sep, 2017 [facility] [id number] [place] [address] 50323- 7792 14 Sep, 2017 Left otitis media with effusion H65.92 ; Acute suppurative otitis media of right ear without spontaneous rupture of tympanic membrane, recurrence not specified H66.001 ; Dizziness R42 and Fatigue 780.79 [facility] [id number] [place] [address] 58342- 1642 Aug, Major depressive disorder, recurrent episode, moderate [...] sustained remission F10.11 and Tobacco use Z72.0 [facility] [id number] [place] [address] 25655 -4890 Aug, Ingrown right big toenail L60.0 [facility] [id number] [place] [address] 44279- 2389 Aug, [facility] [id number] [place] [address] 63437- 7588 Aug, PTSD (post-traumatic stress disorder) F43.10 [facility] [id number] [place] [address] 35011- 7194 Aug, Major depressive disorder, recurrent episode, moderate F33.1 ; Generalized anxiety disorder F41.1 and Cannabis abuse F12.10 [facility] [id number] [place] [address] 13151- 4338 Jul, [facility] [id number] [place] [address] 75906- 3916 Jul, [facility] [address] [place] [address]- 6751 Jul, [facility] [id number] [place] [address] [address] Jul, Major depressive disorder, recurrent episode, moderate F33.1 ; Generalized anxiety disorder F41.1 and Cannabis abuse F12.10 [facility] [id number] [place] [address] 09582- 0264 Jul, [facility] [id number] [place] [address] 300627- 1751 Jul, [place] [id number] [place] [address] 469031- 7529 Jul, Hyperlipidemia 272.4 [place] [id number] [place] [address] 87839- 8452 Jul, PTSD (post-traumatic stress disorder) F43.10 [facility] [id number] [place] [address] 94960- 0533 Jul, Tobacco use Z72.0 ; Alcohol use [...] anxiety disorder F41.1 and Cannabis abuse F12.10 [facility] [id number] [place] [address] 63230- 7168 Jul, [facility] [id number] [place] [address] 94427- 9409 Jul, Dysuria R30.0 and Mixed hyperlipidemia E78.2 [id number] [place] [address] 43515- 9943 Jun, Major depressive disorder, recurrent episode, moderate F33.1 ; Generalized anxiety disorder F41.1 and Cannabis abuse F12.10 [place] [id number] [place] [address] 11907- 3483 Jun, [facility] [id number] [place] [address] 46304- 2975 Jun, Generalized anxiety disorder F41.1 ; Major depressive disorder, recurrent episode, moderate F33.1 ; PTSD (post-traumatic stress disorder) F43.10 ; Opioid use disorder, moderate, in sustained remission F11.21 ; Cannabis abuse F12.10 ; Alcohol use disorder, mild, 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 ; Methamphetamine use disorder, severe, 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 ; Cocaine use disorder, moderate, in sustained remission F14.21 and Tobacco use Z72.0 [facility] [id number] [place] [address] 17135- 1357 Jun, Major depressive disorder, recurrent episode, moderate F33.1 ; Generalized anxiety disorder F41.1 and Cannabis abuse F12.10 [facility] [place] [id number] [place] [address] 19629- 9189 Jun, [facility] [id number] [place] [address] 74842- 6928 Jun, [facility] [address] [place] [id number] [place] [address] 24439- 6620 Jun, Major depressive disorder, recurrent episode, moderate F33.1 ; Generalized anxiety disorder F41.1 and Cannabis abuse F12.10 [facility] [id number] [place] [address] [id number] Mar, Dental examination Z01.20 [facility] [id number] [place] [address] [id number] Feb, Dental examination Z01.20 [facility] [id number] [place] [address] 20053- 3051 Mar, [facility] [id number] [place] [address] 96680- 1656 Mar, [facility] [id number] [place] [address] 90980- 0431 Feb, Hyperlipidemia 272.4 and Prediabetes 790.29 [facility] [address] [address]- 6238 Feb, Fatigue 780.79 and Hyperlipidemia 272.4 [facility] [id number] [address]- 9323 Feb, Lumbago 724.2 ; Hyperlipidemia 272.4 ; Insomnia 780.52 and Fatigue 780.79 [facility] [id number] [address]- 9582 Nov, [facility] [id number] [place] [address] 83837- 3400 Nov, [facility] [id number] [place] [address] 70386- 3911 Mar, [facility] [id number] [place] [address] 13155- 8436 Mar, [facility] [id number] [address]- 4621 Jan, [facility] [id number] [place] [address] 36770- 6751 Jan, [facility] [address] [address]- 2043 December, [facility] [address] [address]- 0097 December, [facility] [address] [address]- 0802 Nov, [facility] [address] [address]- 6009 Nov, [facility] [address] [address]- 0946 Nov, [facility] [address] [address]- 6327 Nov, [facility] [place] [facility] [address] [id number] [place] [address]- 3498 28 Nov, 2013 [facility] [place] [facility] [address] [id number] [place] [address]- 7916 28 Nov, 2013 [facility] [place] [facility] [address] [id number] [place] [address]- 5466 31 Oct, 2013 [facility] [place] [facility] [address] [id number] [place] [address]- 7686 31 Oct, 2013 [facility] [place] [facility] [address] [id number] [place] [address]- 4010 20 Oct, 2013 [facility] [place] [facility] [address] [id number] [place] [address]- 7384 20 Oct, 2013 [facility] [place] [facility] [address] [id number] [place] [address]- 1563 19 Oct, 2013 [facility] [place] [facility] [address] [id number] [place] [address]- 7976 19 Oct, 2013 [facility] [place] [facility] [address] [id number] [place] [address]- 0387 12 Oct, 2013 [facility] [place] [facility] [address] [id number] [place] [address]- 7238 12 Oct, 2013 [facility] [place] [facility] [address] [id number] [place] [address]- 6362 11 Oct, 2013 [facility] [place] [facility] [address] [id number] [place] [address]- 6522 04 Oct, 2013 [facility] [place] [facility] [address] [id number] [place] [address]- 2627 04 Oct, 2013 [facility] [place] [facility] [address] [id number] [place] [address]- 0496 03 Oct, 2013 [facility] [place] [facility] [address] [id number] [place] [address]- 9166 03 Oct, 2013 [facility] [place] [facility] [address] [id number] [place] [address]- 2828 24 Sep, 2013 [facility] [place] [facility] [address] [facility] [id number] [place] [address]- 0711 24 Sep, 2013 [facility] [place] [facility] [address] [facility] [id number] [place] [address]- 8593 20 Sep, 2013 [facility] [place] [facility] [address] [facility] [id number] [place] [address]- 0466 20 Sep, 2013 [facility] [place] [facility] [address] [facility] [id number] [place] [address]- 0337 20 Sep, 2013 [facility] [place] [facility] [address] [facility] [id number] [place] [address]- 4718 20 Sep, 2013 [facility] [place] [facility] [address] [facility] [id number] [place] [address]- 4594 18 Sep, 2013 [facility] [place] [facility] [address] [facility] [id number] [place] [address]- 6334 18 Sep, 2013 [facility] [place] [facility] [address] [facility] [id number] [place] [address]- 4847 14 Sep, 2013 [facility] [place] [facility] [address] [facility] [id number] [place] [address]- 7034 14 Sep, 2013 [facility] [place] [facility] [address] [facility] [id number] [place] [address]- 5405 14 Sep, 2013 [facility] [place] [facility] [address] [facility] [id number] [place] [address]- 9094 14 Sep, 2013 [facility] [place] [facility] [address] [facility] [id number] [place] [address]- 0468 14 Sep, 2013 [facility] [place] [facility] [address] [facility] [id number] [place] [address]- 5108 14 Sep, 2013 [facility] [place] [facility] [address] [facility] [id number] [place] [address]- 1706 13 Sep, 2013 [facility] [place] [facility] [address] [facility] [id number] [place] [address]- 2787 Sep, [facility] [place] [facility] [address] [id number] [place] [address]- 9721 Sep, [facility] [place] [facility] [address] [id number] [place] [address]- 7452 Sep, [facility] [place] [facility] [address] [id number] [place] [address]- 3140 Sep, [facility] [place] [facility] [address] [id number] [place] [address]- 3123 Sep, [facility] [place] [facility] [address] [id number] [place] [address]- 1094 Aug, [facility] [place] [facility] [address] [id number] [place] [address]- 0359 Aug, [facility] [place] [facility] [address] [id number] [place] [address]- 2510 Aug, [facility] [place] [facility] [address] [id number] [place] [address]- 6177 Aug, [facility] [place] [facility] [address] [id number] [place] [address]- 3099 Aug, [facility] [place] [facility] [address] [id number] [place] [address]- 6931 Jul, [facility] [place] [facility] [address] [id number] [address]- 0706 Jul, [facility] [place] [facility] [address] [id number] [address]- 6685 Jul, [facility] [place] [facility] [address] [id number] [place] [address]- 9773 Jul, [facility] [place] [facility] [address] [id number] [place] [address]- 5604 Jul, [facility] [place] [facility] [address] [id number] [place] [address]- 2910 Jul, [facility] [place] [facility] [address] [id number] [place] 6589 06 Jul, 2013 [facility] [place] [facility] [address] [id number] [place] [address]- 3699 06 Jul, 2013 [facility] [place] [facility] [address] [id number] [place] 3107 Jul, [facility] [place] [facility] [address] [id number] [place] [address]- 2536 Jun, [facility] [place] [facility] [address] [id number] [place] [address]- 4430 Jun, [facility] [place] [facility] [address] [id number] [place] [address]- 9274 Jun, [facility] [place] [facility] [address] [id number] [place] [address]- 4189 Jun, [facility] [place] [facility] [address] [id number] [place] [address]- 2271 Jun, [facility] [place] [facility] [address] [id number] [place] [address]- 0430 Jun, [facility] [place] [facility] [address] [id number] [place] [address]- 4683 Jun, [facility] [place] [facility] [address] [facility] [id number] [place] [address]- 2595 Jun, [facility] [place] [facility] [address] [id number] [place] [address]- 4699 Jun, [facility] [place] [facility] [address] [id number] [address]- 8273 Jun, [facility] [place] [facility] [address] [id number] [place] [address]- 7765 May, [facility] [place] [facility] [address] [id number] [place] [address]- 7747 May, [facility] [place] [facility] [address] [id number], [place] [address]- 8794 May, [facility] [place] [facility] [address] [id number] [place] [address]- 2352 May, [facility] [place] [facility] [address] [id number] [place] [address]- 5745 May, [facility] [place] [facility] [address] [id number] [place] [address]- 2058 May, [facility] [place] [facility] [address] [id number] [place] [address]- 4053 May, [facility] [place] [facility] [address] [id number] [place] [address]- 7167 May, [facility] [place] [facility] [address] [id number] [place] [address]- 6876 May, [facility] [place] [facility] [address] [id number] [place] [address]- 6784 Apr, [facility] [place] [facility] [address] [id number] [place] [address]- 7371 16 Apr, 2013 [facility] [place] [facility] [address] [id number] [place] [address]- 9202 Apr, [facility] [place] [facility] [address] [id number] [place] [address]- 8950 06 Apr, 2013 [facility] [place] [facility] [address] [id number] [place] [address]- 4888 Mar, [facility] [place] [facility] [address] [id number] [place] [address]- 9487 Mar, [facility] [place] [facility] [address] [id number] [place] [address]- 1045 Mar, [facility] [place] [facility] [address] [id number] [place] [address]- 9078 Mar, [facility] [place] [facility] [address] [id number] [place] [address]- 7600 Mar, [facility] [place] [facility] [address] [id number] [place] [address]- 2546 Mar, [facility] [place] [facility] [address] [id number] [place] [address]- 2643 Mar, [facility] [place] [facility] [address] [id number] [place] [address]- 5095 Feb, [facility] [place] [facility] [address] [id number] [place] [address]- 2139 Feb, [facility] [place] [facility] [address] [id number] [place] [address]- 9819 Feb, [facility] [place] [facility] [address] [id number] [place] [address]- 0765 Feb, [facility] [place] [facility] [address] [id number] [place] [address]- 7499 Feb, [facility] [place] [facility] [address] [id number] [place] [address]- 5495 Feb, [facility] [place] [facility] [address] [id number] [place] [address]- 1561 Feb, [facility] [place] [facility] [address] [id number] [place] [address]- 8084 Feb, [facility] [place] [facility] [address] [id number] [place] [address]- 3859 Feb, [facility] [place] [facility] [address] [id number] [place] [address]- 4785 Feb, [facility] [place] [facility] [address] [id number] [place] [address]- 5756 Feb, [facility] [place] [facility] [address] [id number] [place] [address]- 9481 Jan, [facility] [place] [facility] [address] [id number] [place] [address]- 3726 Jan, [facility] [place] [facility] [address] [id number] [place] [address]- 1548 December, [facility] [place] [facility] [address] [id number] [place] [address] 2546 December, [facility] [address] [id number] [place] [address]- 6381 Nov, [facility] [address] [id number] [place] [address]- 9036 Nov, [facility] [address] [id number] [place] [address]- 8706 Oct, [facility] [address] [id number] [place] [address]- 6396 Oct, [facility] [address] [id number] [place] [address]- 1488 Oct, [facility] [address] [id number] [place] [address]- 4016 Oct, [facility] [address] [id number] [place] [address]- 1124 Sep, [facility] [address] [id number] [place] [address]- 7088 Sep, [facility] [address] [id number] [place] [address]- 7645 Sep, [facility] [address] [facility] [id number] [place] [address] Sep, [facility] [address] [id number] [place] [address] Aug, [facility] [address] [id number] [place] [address] Aug, [facility] [place] [facility] [address] [id number] [place] [address] Jul, [facility] [place] [facility] [address] [id number] [place] [address] Jul, [facility] [address] [id number] [place] [address] Jul, [facility] [place] [facility] [address] [id number] [place] [address] Jul, [facility] [place] [facility] [address] [id number] [place] [address] Jul, [facility] [place] [facility] [address] [facility] [id number] [place] [address] Jul, [facility] [place] [facility] [address] [id number] [place] [address] Jun, [facility] [place] [facility] [address] [id number] [place] [address] Jun, [facility] [place] [facility] [address] [id number] [place] [address] Jun, [facility] [place] [facility] [address] [id number] [place] [address] Jun, [facility] [place] [facility] [address] [id number] [place] [address] Jun, [facility] [place] [facility] [address] [id number] [place] [address] May, [facility] [place] [facility] [address] [id number] [place] [address] May, [facility] [place] [facility] [address] [id number], [place] [address] May, [facility] [place] [facility] [address] [id number], [place] [address] May, [facility] [place] [facility] [address] [id number] [place] [address] May, [facility] [place] [facility] [address] [id number], [place] [address] May, [facility] [place] [facility] [address] [facility] [id number], [place] [address] May, [facility] [place] [facility] [address] [id number] [place] [address] May, [facility] [place] [facility] [address] [id number] [place] [address] Mar, [facility] [place] [facility] [address] [id number] [place] [address] Mar, [facility] [place] [facility] [address] [id number] [place] [address] Mar, [facility] [place] [facility] [address] [id number] [place] [address] Feb, [facility] [place] [facility] [address] [id number] [place] [address] Feb, [facility] [place] [facility] [address] [id number] [place] [address] Feb, [facility] [place] [facility] [address] [id number] [place] [address] Feb, [facility] [place] [facility] [address] [id number] [place] [address] Jan, [facility] [place] [facility] [address] [id number] [place] [address] Jan, [facility] [place] [facility] [address] [id number] [place] [address] Jan, [facility] [place] [facility] [address] [id number] [place] [address] December, [facility] [place] [facility] [address] [id number] [place] [address] Nov, [facility] [place] [facility] [address] [id number] [place] [address] Oct, [facility] [place] [facility] [address] [id number] [place] [address] Oct, [facility] [place] [facility] [address] [id number] [place] [address] Oct, [facility] [place] [facility] [address] [id number] [place] [address] Oct, [facility] [address] [id number] [place] [address] Aug, [facility] [address] [id number] [place] [address] Aug, [facility] [address] [id number] [place] [address] Aug, [facility] [address] [id number] [place] [address] Aug, [facility] [address] [id number] [place] [address] Aug, [facility] [address] [id number] [place] [address] Aug, [facility] [address] [id number] [place] [address] Aug, [facility] [address] [id number] [place] [address] Aug, [facility] [address] [id number] [place] [address] Jul, [facility] [address] [id number] [place] [address] Jun, [facility] [address] [id number] [place] [address] Jun, [facility] [address] [id number] [place] [address] Jul, [facility] [place] [facility] [address] [id number] [place] [address] Jul, [facility] [place] [facility] [address] [id number] [place] [address] Jul, [facility] [address] [id number] [address] 14 Jul, 2010 [facility] [address] [facility] [id number] [address] 14 Jul, 2010 [facility] [address] [facility] [id number][place] [address] 24 Jun, 2010 [facility] [address] [facility] [id number][place] [address] May, [facility] [address] [facility] [id number][place] [address] Mar, [facility] [address] [facility] [id number] [place] [address] Oct, [facility] [address] [facility] [id number][place] [address] Aug, [facility] [address] [facility] [id number], [place] [address] 15 Jul, 2009 [facility] [address] [facility] [id number][place] [address] Jul, [facility] [address] [facility] [id number][place] [address] Jun, [facility] [address] [facility] [id number][place] [address] Jun, [facility] [address] [facility] [id number] [address] [address] May, [facility] [address] [facility] [id number], [place] [address] May, [facility] [address] [facility] [id number][place] [address] Mar, [facility] [address] [facility] [id number][place] [address] Mar, [facility] [address] [facility] [id number][place] [address] [address] Oct, IMMUNIZATIONS No Known Immunizations SOCIAL HISTORY [...] disc replacement L1- L5 - Dr Muhammad ([place]) Surgical History appendectomy 1983 Surgical History hysterectomy 1993 Surgical History dilatation and curettage Surgical History heart cath- Dr Shaw [address] Meza bowel and intestines seperated 2015 Hospitalization History Hospitalization for surgery only
--- OUTSIDE RECORDS SUMMARY | 2018-05-22 08:54 | XMS REPORT ---
Author Author WILD RODRIGUEZ Organization [facility] Address [address] [place] [address] Care Team Providers Care Bank Clerk Name Role Phone WILD RODRIGUEZ Unavailable PROBLEMS Type Condition ICD9-CM Code [id number] Code Onset Dates Condition Status SNOMED Code Problem Generalized anxiety disorder F41.1 Active 56628093 Problem PTSD (post-traumatic stress disorder) F43.10 Active 65982304 Problem Cannabis abuse F12.10 Active 79302253 Problem Prediabetes 790.29 Active 5518593 Problem Mixed hyperlipidemia E78.2 Active 644823375 Problem Major depressive disorder, recurrent episode, moderate F33.1 Active 045438393 Problem GERD with esophagitis K21.0 Active 067633249 Problem Cocaine use disorder, moderate, in sustained remission F14.21 Active 12783597 Problem Alcohol use disorder, mild, 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 Active 42306062 Problem Tobacco use Z72.0 Active 932723302 Problem Methamphetamine use disorder, severe, 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 [address], [place] [address] May, Common wart B07.8 [facility] [id number] [place] [address] 22616- 7874 May, [facility] [address] [address] Apr, Cocaine use disorder, moderate, in sustained remission F14.21 [facility] [id number], [place] [address] 14 Apr, 2018 [facility] [id number] [place] [address] [id number] 13 Apr, 2018 Dental examination Z01.20 [facility] [id number] [id number] 10 Mar, 2018 Encounter for dental exam and cleaning w/o abnormal findings Z01.20 [place] [id number] [place] [address] 12742- 0358 07 Mar, 2018 [place] [id number] [place] [address] 88288- 1436 Feb, Cocaine use disorder, moderate, in sustained [...] Major depressive disorder, recurrent episode, moderate F33.1 [place] [id number] [place] [address] 45759- 1935 Jan, Cocaine use disorder, moderate, in sustained remission F14.21 [place] [address], [place] [address] Jan, Cocaine use disorder, moderate, in sustained [...] Major depressive disorder, recurrent episode, moderate F33.1 [place] [address], [place] [address] 25[address] Jan, Dysuria R30.0 and GERD with esophagitis K21.0 [facility] [address], [place] [address] 7163 December, Major depressive disorder, recurrent episode, moderate F33.1 [facility] [address] [place] [address]37- 6652 December, [facility] [address] [place] [address] 94742- 4013 December, Major depressive disorder, recurrent episode, moderate [...] sustained remission F10.11 and Tobacco use Z72.0 [place] [address] [place] [address]- 1014 Nov, [facility] [id number] [place] [address] Nov, [place] [id number] [place] [address] 87894- 4754 Nov, Wellness examination Z00.00 ; Encounter for immunization Z23 ; Screening for osteoporosis Z13.820 ; Screening for breast cancer Z12.31 and Left breast lump N63.20 [facility] [address] [place] [address] [id number] Oct, Dental examination Z01.20 [facility] [id number] [place] [address]- 2463 Oct, [facility] [id number] [place] [address]- 9993 Oct, [facility] [id number] [place] [address]- 1996 Sep, [facility] [address] [address] 15 Sep, 2017 [facility] [address] [address] 14 Sep, 2017 Left otitis media with effusion H65.92 ; Acute suppurative otitis media of right ear without spontaneous rupture of tympanic membrane, recurrence not specified H66.001 ; Dizziness R42 and Fatigue 780.79 [place] [address] [address] Aug, Major depressive disorder, recurrent episode, moderate [...] sustained remission F10.11 and Tobacco use Z72.0 [facility] [address] [address] Aug, Ingrown right big toenail L60.0 [place] [address] [address] Aug, [facility] [address] [address] Aug, PTSD (post-traumatic stress disorder) F43.10 [place] [address] [address] Aug, Major depressive disorder, recurrent episode, moderate F33.1 ; Generalized anxiety disorder F41.1 and Cannabis abuse F12.10 [facility] [address] [address] Jul, [facility] [address] [address] Jul, [place] [address] [address]22 Jul, [place] [address] [place] [address] 72718- 2268 Jul, Major depressive disorder, recurrent episode, moderate F33.1 ; Generalized anxiety disorder F41.1 and Cannabis abuse F12.10 [place] [address] [place] [address] 41133- 5849 Jul, [place] [id number] [place] [address] Jul, [place] [id number] [place] [address] 22281- 5268 Jul, Hyperlipidemia 272.4 [place] [id number] [place] [address] 04161- 0363 Jul, PTSD (post-traumatic stress disorder) F43.10 [place] [id number] [place] [address] 04880- 2854 Jul, Tobacco use Z72.0 ; Alcohol use [...] anxiety disorder F41.1 and Cannabis abuse F12.[address] [place] [address] 69508- 4194 Jul, [address] [place] [address] 15524- 3137 Jul, Dysuria R30.0 and Mixed hyperlipidemia E78.2 [place] [id number] [place] [address] 59654- 1286 Jun, Major depressive disorder, recurrent episode, moderate F33.1 ; Generalized anxiety disorder F41.1 and Cannabis abuse F12.10 [place] [id number] [place] [address]- [address]776 Jun, [facility] [address] [place] [address] 39246- 6533 Jun, Generalized anxiety disorder F41.1 ; Major [...] remission F14.21 and Tobacco [address]0 [facility] [id number] [place] [address] 78520- 0139 Jun, Major depressive disorder, recurrent episode, moderate F33.1 ; Generalized anxiety disorder F41.1 and Cannabis abuse F12.10 [facility] [id number] [place] [address] 92787- 5697 Jun, [facility] [id number] [place] [address] 30882- 5245 Jun, [facility] [id number] [place] [address] 11309- 5950 Jun, Major depressive disorder, recurrent episode, moderate F33.1 ; Generalized anxiety disorder F41.1 and Cannabis abuse F12.10 [facility] [id number] [place] [address] [id number] Mar, Dental examination Z01.20 [facility] [id number] [place] [address] [id number] Feb, Dental examination Z01.20 [facility] [id number] [place] [address] 80445- 3473 Mar, [facility] [address] [address]- [address]396 Mar, [facility] [id number] [place] [address] 26692- 5251 Feb, Hyperlipidemia 272.[address] [facility] [address], [place] [address]- 9332 Feb, Fatigue 780.[address] [facility] [id number] [place] [address] 36208- 5850 Feb, Lumbago 724.2 ; Hyperlipidemia 272.4 ; Insomnia [address] [facility] [id number] [place] [address], [place] [address]- 3172 Nov, [facility] [id number] [place] [address], [place] [address]- 6459 Nov, [facility] [id number] [place] [address], [place] [address]- 1147 Mar, [facility] [id number] [place] [address], [place] [address]- 6471 Mar, [facility] [id number] [place] [address] 50752- 4870 Jan, [facility] [address] [place] [address]- 3756 Jan, [facility] [address] [place] [address] 83473- 0920 December, [facility] [address] [place] [address]- 4907 December, [facility] [address], [place] [address]- 1058 Nov, [facility] [address] [place] [address]- 7477 Nov, [facility] [id number] [place] [address], [place] [address]- 2402 Nov, [facility] [address], [place] [address]- 5204 Nov, [facility] [address], [place] [address]- 7721 Nov, [facility] [place] [facility] [address] [id number] [place] [address]- 5355 Nov, [facility] [place] [facility] [address] [id number] [place] [address]- 2326 Oct, [facility] [place] [facility] [address] [id number] [place] [address]- 2855 Oct, [facility] [place] [facility] [address] [id number] [place] [address]- 3100 Oct, [facility] [place] [facility] [address] [id number] [place] [address]- 5005 Oct, [facility] [place] [facility] [address] [id number] [place] [address]- 4914 Oct, [facility] [place] [facility] [address] [id number] [place] [address]- 2665 Oct, [facility] [place] [facility] [address] [id number] [place] [address]- 4036 Oct, [facility] [place] [facility] [address] [id number] [place] [address]- 0110 Oct, [facility] [place] [facility] [address] [id number] [place] [address]- 7232 Oct, [facility] [place] [facility] [address] [id number] [place] [address]- 9996 Oct, [facility] [place] [facility] [address] [id number] [place] [address]- 5889 Oct, [facility] [place] [facility] [address] [id number] [place] [address]- 0565 Oct, [facility] [place] [facility] [address] [id number] [place] [address]- 0741 Oct, [facility] [place] [facility] [address] [id number] [place] [address]- 7907 24 Sep, 2013 [facility] [place] [facility] [address] [id number] [place] [address]- 2541 24 Sep, 2013 [facility] [place] [facility] [address] [id number] [place] [address]- 8336 20 Sep, 2013 [facility] [place] [facility] [address] [id number] [place] [address]- 2546 20 Sep, 2013 [facility] [place] [facility] [address] [id number] [place] [address]- 1556 20 Sep, 2013 [facility] [place] [facility] [address] [id number] [place] [address]- 2545 20 Sep, 2013 [facility] [place] [facility] [address] [id number] [place] [address] 2546 18 Sep, 2013 [facility] [place] [facility] [address] [facility] [id number] [place] [address]- 9544 18 Sep, 2013 [facility] [place] [facility] [address] [id number] [place] [address]- 2710 14 Sep, 2013 [facility] [place] [facility] [address] [id number] [place] [address]- 1145 14 Sep, 2013 [facility] [place] [facility] [address] [facility] [id number] [place] [address]- 2075 14 Sep, 2013 [facility] [place] [facility] [address] [facility] [id number] [place] [address]- 0984 14 Sep, 2013 [facility] [place] [facility] [address] [id number] [place] [address]- 2541 14 Sep, 2013 [facility] [place] [facility] [address] [id number] [place] [address]- 2540 14 Sep, 2013 [facility] [place] [facility] [address] [id number] [place] [address]- 2546 13 Sep, 2013 [facility] [place] [facility] [address] [facility] [id number] [place] [address]- 2546 13 Sep, 2013 [facility] [place] [facility] [address] [id number] [place] [address]- 7684 Sep, [facility] [address] [id number] [place] [address]- 2926 Sep, [facility] [place] [facility] [address] [id number] [place] Sep, [facility] [address] [id number] [place] [address]- 5996 Sep, [facility] [place] [facility] [address] [id number] [place] [address]- 7641 Aug, [facility] [address] [id number] [place] [address]- 2942 Aug, [facility] [address] [id number] [place] [address]- 8331 Aug, [facility] [address] [id number] [place] [address]- 9271 Aug, [facility] [address] [id number] [place] [address]- 9768 Aug, [facility] [address] [id number] [place] [address]- 4717 Jul, [facility] [address] [id number] [place] [address]- 0367 Jul, [facility] [place] [facility] [address] [id number] [place] [address]- 9151 Jul, [facility] [place] [facility] [address] [id number] [place] [address]- 6089 Jul, [facility] [place] [facility] [address] [id number] [place] [address]- 2046 Jul, [facility] [place] [facility] [address] [id number] [place] [address]- 2715 Jul, [facility] [place] [facility] [address] [id number] [place] [address]- 7160 Jul, [facility] [place] [facility] [address] [id number] [place] [address]- 6174 Jul, [facility] [place] [facility] [address] [id number] [place] [address]- 4706 Jul, [facility] [place] [facility] [address] [id number] [place] [address]- 1343 Jun, [facility] [place] [facility] [address] [id number] [place] [address]- 1943 Jun, [facility] [place] [facility] [address] [id number] [place] [address]- 2496 Jun, [facility] [place] [facility] [address] [id number] [place] [address]- 2908 Jun, [facility] [place] [facility] [address] [id number] [place] [address]- 9968 Jun, [facility] [place] [facility] [address] [id number], [place] [address]- 3412 Jun, [facility] [place] [facility] [address] [id number] [place] [address]- 6025 Jun, [facility] [place] [facility] [address] [id number], [place] [address]- 5565 Jun, [facility] [place] [facility] [address] [id number], [place] [address]- 5887 Jun, [facility] [place] [facility] [address] [id number], [place] [address]- 8556 Jun, [facility] [place] [facility] [address] [id number], [place] [address]- 7657 May, [facility] [place] [facility] [address] [id number], [place] [address]- 6953 May, [facility] [place] [facility] [address] [id number], [place] [address]- 3966 May, [facility] [place] [facility] [address] [id number], [place] [address]- 3771 May, [facility] [place] [facility] [address] [id number] [place] [address]- 4465 May, [facility] [place] [facility] [address] [id number] [place] [address]- 8541 May, [facility] [place] [facility] [address] [id number] [place] [address]- 0037 May, [facility] [place] [facility] [address] [id number] [place] [address]- 8907 May, [facility] [place] [facility] [address] [id number] [place] [address]- 5029 May, [facility] [place] [facility] [address] [id number] [place] [address]- 9931 Apr, [facility] [place] [facility] [address] [id number] [place] [address]- 0115 Apr, [facility] [place] [facility] [address] [id number] [place] [address]- 7896 Apr, [facility] [place] [facility] [address] [id number] [place] [address]- 9438 Apr, [facility] [place] [facility] [address] [id number] [place] [address]- 0380 Mar, [facility] [place] [facility] [address] [id number] [place] [address]- 5137 Mar, [facility] [place] [facility] [address] [id number] [place] [address]- 6345 Mar, [facility] [place] [facility] [address] [id number] [place] [address]- 0505 Mar, [facility] [place] [facility] [address] [id number] [place] [address]- 6429 Mar, [facility] [place] [facility] [address] [id number] [place] [address]- 1470 Mar, [facility] [place] [facility] [address] [id number] [place] [address]- 3196 Mar, [facility] [address] [id number] [place] [address]- 7233 Feb, [facility] [place] [facility] [address] [id number] [place] [address]- 7779 Feb, [facility] [address] [id number] [place] [address]- 5575 Feb, [facility] [address] [id number] [place] [address]- 7383 Feb, [facility] [address] [id number] [place] [address]- 6775 Feb, [facility] [address] [id number] [place] [address]- 8557 Feb, [facility] [address] [id number] [place] [address]- 3368 Feb, [facility] [address] [id number] [place] [address]- 9926 Feb, [facility] [address] [id number] [place] [address]- 1295 Feb, [facility] [address] [id number] [place] [address]- 5652 Feb, [facility] [place] [facility] [address] [id number] [place] [address]- 8454 Feb, [facility] [place] [facility] [address] [id number] [place] [address]- 5638 Jan, [facility] [place] [facility] [address] [id number] [place] [address]- 0335 Jan, [facility] [place] [facility] [address] [id number] [place] [address]- 3857 December, [facility] [place] [facility] [address] [id number] [place] [address]- 1600 December, [facility] [address] [id number] [place] [address]- 0832 Nov, [facility] [place] [facility] [address] [id number] [place] [address]- 5613 Nov, [facility] [address] [id number] [place] [address]- 9198 Oct, [facility] [place] [facility] [address] [id number] [place] [address]- 4597 Oct, [facility] [address] [id number] [place] [address]- 7107 Oct, [facility] [place] [facility] [address] [id number] [place] [address]- 2108 Oct, [facility] [address] [facility] [id number] [place] [address]- 8379 Sep, [facility] [place] [facility] [address] [id number] [place] [address]- 0891 Sep, [facility] [address] [id number] [place] [address] Sep, [facility] [place] [facility] [address] [facility] [id number] [place] [address] Sep, [facility] [address] [id number] [place] [address] Aug, [facility] [place] [facility] [address] [id number], [place] [address] Aug, [facility] [place] [facility] [address] [id number] [place] [address] Jul, [facility] [place] [facility] [address] [id number] [place] [address] Jul, [facility] [place] [facility] [address] [facility] [id number] [place] [address] Jul, [facility] [place] [facility] [address] [id number] [place] [address] Jul, [facility] [place] [facility] [address] [id number] [place] [address] Jul, [facility] [place] [facility] [address] [id number] [place] [address] Jul, [facility] [place] [facility] [address] [id number] [place] [address] Jun, [facility] [place] [facility] [address] [id number] [place] [address] Jun, [facility] [place] [facility] [address] [id number] [place] [address] Jun, [facility] [place] [facility] [address] [id number] [place] [address] Jun, [facility] [place] [facility] [address] [facility] [id number] [place] [address] Jun, [facility] [place] [facility] [address] [id number] [place] [address] May, [facility] [place] [facility] [address] [id number] [place] [address] May, [facility] [place] [facility] [address] [facility] [id number] [place] [address] May, [facility] [place] [facility] [address] [id number] [place] [address] May, [facility] [place] [facility] [address] [id number] [place] [address] May, [facility] [place] [facility] [address] [id number] [place] [address] May, [facility] [place] [facility] [address] [facility] [id number] [place] [address] May, [facility] [place] [facility] [address] [id number] [place] [address] May, [facility] [place] [facility] [address] [id number] [place] [address] Mar, [facility] [place] [facility] [address] [id number] [place] [address] Mar, [facility] [place] [facility] [address] [id number] [place] [address] Mar, [facility] [place] [facility] [address] [id number] [place] [address] Feb, [facility] [place] [facility] [address] [id number] [place] [address] Feb, [facility] [place] [facility] [address] [id number] [place] [address] Feb, [facility] [place] [facility] [address] [id number] [place] [address] Feb, [facility] [place] [facility] [address] [id number] [place] [address] Jan, [facility] [place] [facility] [address] [id number] [place] [address] Jan, [facility] [place] [facility] [address] [id number] [place] [address] Jan, [facility] [place] [facility] [address] [id number] [place] [address] December, [facility] [place] [facility] [address] [id number] [place] [address] Nov, [facility] [place] [facility] [address] [id number] [place] [address] Oct, [facility] [place] [facility] [address] [id number] [place] [address] Oct, [facility] [place] [facility] [address] [id number] [place] [address] Oct, [facility] [place] [facility] [address] [id number], [place] [address] Oct, [facility] [address] [id number] [place] [address] Aug, [facility] [place] [facility] [address] [id number] [place] [address] Aug, [facility] [place] [facility] [address] [id number] [place] [address] Aug, [facility] [place] [facility] [address] [id number] [place] [address] Aug, [facility] [address] [id number] [place] [address] Aug, [facility] [address] [id number] [place] [address] Aug, [facility] [address] [id number] [place] [address] Aug, [facility] [place] [facility] [address] [id number] [place] [address] Aug, [facility] [address] [id number] [place] [address] Jul, [facility] [place] [facility] [address] [id number] [place] [address] Jun, [facility] [address] [id number] [place] [address] Jun, [facility] [place] [facility] [address] [id number] [place] [address] 31 Jul, 2010 [facility] [place] [facility] [address] [id number] [place] [address] 22 Jul, 2010 [facility] [place] [facility] [address] [id number] [place] [address] 22 Jul, 2010 [facility] [place] [facility] [address] [id number] [place] [address] 14 Jul, 2010 [facility] [place] [facility] [address] [id number], [place] [address] [address], [address] [facility] [address] [facility] [id number], [place] [address] 24 Jun, [address] [facility] [address] [facility] [id number], [place] [address] May, [facility] [address] [facility] [id number] [address] Mar, [facility] [address] [facility] [id number] [address] Oct, [facility] [id number] [address] Aug, [facility] [address] [id number], [place] [address] 15 Jul, [address] [facility] [id number], [place] [address] Jul, [facility] [id number] [address] Jun, [facility] [id number] [address] Jun, [facility] [id number] [address] May, [facility] [address]65[address] [address] May, [facility] [address] [id number] [address] Mar, [facility] [id number] [address] Mar, [facility] [address] [id number] [address] 10 Oct, 2008 IMMUNIZATIONS No Known Immunizations [...] disc replacement L1- L5 - Dr Muhammad ([place]) Surgical History appendectomy 1983 Surgical History hysterectomy 1993 Surgical History dilatation and curettage Surgical History heart cath- Dr Shaw [address] Meza bowel and intestines 2015 Hospitalization History Hospitalization for surgery only
--- OUTSIDE RECORDS SUMMARY | 2018-05-22 08:54 | XMS REPORT ---
Author Author VASQUEZ CARTER [facility] Address [address] [place] [address] Care Team Providers Care Blow Off Worker Name Role Phone VASQEUZ CARTER Unavailable PROBLEMS ALLERGIES No Information ENCOUNTERS IMMUNIZATIONS No Known Immunizations SOCIAL HISTORY No smoking Hx information available REASON FOR VISIT PLAN OF CARE VITAL SIGNS MEDICATIONS RESULTS No Results PROCEDURES No Known procedures INSTRUCTIONS MEDICATIONS ADMINISTERED No Known Medications MEDICAL (GENERAL) HISTORY
--- OUTSIDE RECORDS SUMMARY | 2018-05-22 08:55 | XMS REPORT ---
Author Author WILD RODRIGUEZ [facility] Address [address] [place] [address] Care Team Providers Care Tea Blender Name Role Phone WILD RODRIGUEZ Unavailable PROBLEMS Type Condition ICD9-CM Code [id number] Code Onset Dates Condition Status SNOMED Code Problem Major depressive disorder, recurrent episode, moderate F33.1 Active 401899732 Problem PTSD (post-traumatic stress disorder) F43.10 Active 48896971 Problem Cannabis abuse F12.10 Active 71115234 Problem GERD with esophagitis K21.0 Active 831698262 Problem Spasm of muscle 728.85 Active 21684533 Problem Cocaine use disorder, moderate, in sustained remission F14.21 Active 92033605 Problem Diarrhea 787.91 Active 55753875 Problem Alcohol use disorder, mild, 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 Active 40463207 Problem Tobacco use Z72.0 Active 045374910 Problem Methamphetamine use disorder, severe, 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2 Active 400797274 Problem Insomnia 780.52 Active 782430818 Problem Generalized anxiety disorder F41.1 Active 69399702 ALLERGIES No Information ENCOUNTERS Encounter Location Date Diagnosis [facility] [address] [facility] [id number] [id number] Aug, [facility] [address] [id number] [address] May, [facility] [address] [address] [address] May, [facility] [address], [place] [address] Apr, [facility] [address] [id number] 13 Apr, 2018 Dental examination Z01.20 [facility] [address] [place] [id number] 10 Mar, 2018 Encounter for dental exam and cleaning w/o abnormal findings Z01.20 [facility] [id number] [place] [address] 258090- 3546 Mar, [facility] [address], [place] [address] Feb, Cocaine use disorder, moderate, in sustained [...] Major depressive disorder, recurrent episode, moderate F33.1 [facility] [id number], [place] [address] Jan, Cocaine use disorder, moderate, in sustained remission F14.21 [facility] [address], [place] [address] Jan, Cocaine use disorder, moderate, in sustained [...] Major depressive disorder, recurrent episode, moderate F33.1 [facility] [address], [place] [address] Jan, Dysuria R30.0 and GERD with esophagitis K21.0 [facility] [id number] [place] [address] 92414- 1521 December, Major depressive disorder, recurrent episode, moderate F33.1 [facility] [id number] [place] [address] 78984- 6868 December, [facility] [id number] [place] [address] 27108- 7295 December, Major depressive disorder, recurrent episode, moderate [...] sustained remission F10.11 and Tobacco use Z72.0 [facility] [id number] [place] [address] 16046- 0111 Nov, [facility] [id number] [place] [address] Nov, [facility] [address] [place] [id number] [place] [address]5415- 4692 Nov, Wellness examination Z00.00 ; Encounter for immunization Z23 ; Screening for osteoporosis Z13.820 ; Screening for breast cancer Z12.31 and Left breast lump N63.20 [facility] [id number] [place] [id number] Oct, Dental examination Z01.20 [facility] [id number] [place] [address] 99576- 2260 Oct, [facility] [id number] [place] [address] 95916- 9434 Oct, [facility] [id number] [place] [address] 19653- 2014 Sep, [facility] [id number] [place] [address] 63267- 8204 Sep, [facility] [id number] [place] [address] 16895- 5050 14 Sep, 2017 Left otitis media with effusion H65.92 ; Acute suppurative otitis media of right ear without spontaneous rupture of tympanic membrane, recurrence not specified H66.001 ; Dizziness R42 and Fatigue 780.79 [facility] [id number] [place] [address] 18446- 6614 Aug, Major depressive disorder, recurrent episode, moderate [...] use Z72.0 [facility] [id number] [place] [address] Aug, Ingrown right big toenail L60.0 [facility] [id number] [place] [address] 23272- 1614 Aug, [facility] [id number] [place] [address] 73511- 8526 Aug, PTSD (post-traumatic stress disorder) F43.10 [facility] [address] [place] [address] 64945- 9885 Aug, Major depressive disorder, recurrent episode, moderate F33.1 ; Generalized anxiety disorder F41.1 and Cannabis abuse F12.10 [facility] [address] [place] [address] 37273- 1498 Jul, [facility] [address] [place] [address]- 5885 Jul, [facility] [id number] [place] [address] 241886- 6593 Jul, [facility] [id number] [place] [address] [address] Jul, Major depressive disorder, recurrent episode, moderate F33.1 ; Generalized anxiety disorder F41.1 and Cannabis abuse F12.10 [facility] [id number] [place] [address] 92942- 4566 Jul, [facility] [id number] [place] [address] 08385- 6858 Jul, [facility] [id number] [place] [address] 91470- 8026 Jul, Hyperlipidemia 272.4 [facility] [id number] [place] [address] 96853- 1697 Jul, PTSD (post-traumatic stress disorder) F43.10 [facility] [facility] [address] [place] [address] 30014- 3577 Jul, Tobacco use Z72.0 ; Alcohol use [...] anxiety disorder F41.1 and Cannabis abuse F12.10 [facility] [address] [place] [address] 36117- 6024 Jul, [facility] [id number] [place] [address] 97523- 2319 Jul, Dysuria R30.0 and Mixed hyperlipidemia E78.2 [facility] [facility] [id number] [place] [address] 04203- 7945 Jun, Major depressive disorder, recurrent episode, moderate F33.1 ; Generalized anxiety disorder F41.1 and Cannabis abuse F12.10 [facility] [address], [place] [address]- 9245 Jun, [facility] [id number] [place] [address] 08815- 3886 Jun, Generalized anxiety disorder F41.1 ; Major depressive disorder, recurrent episode, moderate F33.1 ; PTSD (post-traumatic stress disorder) F43.10 ; Opioid use disorder, moderate, in sustained remission F11.21 ; Cannabis abuse F12.10 ; Alcohol use disorder, mild, 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 ; Methamphetamine use disorder, severe, 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 ; Cocaine use disorder, moderate, in sustained remission F14.21 and Tobacco use Z72.0 [facility] [address] [place] [address] 36224- 6204 Jun, Major depressive disorder, recurrent episode, moderate F33.1 ; Generalized anxiety disorder F41.1 and Cannabis abuse F12.10 [facility] [address] [place] [address] 30798- 7875 Jun, [facility] [id number] [place] [address] 07219- 6806 Jun, [facility] [id number] [place] [address] 67573- 6322 Jun, Major depressive disorder, recurrent episode, moderate F33.1 ; Generalized anxiety disorder F41.1 and Cannabis abuse F12.10 [facility] [address] [place] [address] [id number] Mar, Dental examination Z01.20 [facility] [address] [place] [address] [id number] Feb, Dental examination Z01.20 [facility] [id number] [place] [address] 22458- 5097 Mar, [facility] [id number] [place] [address] 50564- 7097 Mar, [facility] [address], [place] [address]- 2128 15 Feb, 2015 Hyperlipidemia 272.4 and Prediabetes 790.29 [facility] [id number] [place] [address] 11160- 0830 Feb, Fatigue 780.79 and Hyperlipidemia 272.4 [facility] [id number] [place] [address] 26396- 0515 Feb, Lumbago 724.2 ; Hyperlipidemia 272.4 ; Insomnia 780.52 and Fatigue 780.79 [facility] [id number] [place] [address] 62188- 0607 Nov, [facility] [id number] [place] [address] 10523- 3995 Nov, [facility] [id number] [place] [address] 95048- 9872 Mar, [facility] [id number] [place] [address] 34693- 1523 Mar, [facility] [id number] [place] [address] 44975- 8912 Jan, [facility] [address] [id number], [place] [address]- 2715 Jan, [facility] [address], [place] [address]- 9295 December, [facility] [address], [place] [address]- 3252 December, [facility] [id number] [place] [address] 02631- 8030 Nov, [facility] [address], [place] [address]- 3674 Nov, [facility] [address], [place] [address]- 4240 Nov, [facility] [place] [facility] [address] [id number] [place] [address]- 4926 Nov, [facility] [place] [facility] [address] [id number] [place] [address]- 4246 Nov, [facility] [place] [facility] [address] [id number] [place] [address]- 8366 Nov, [facility] [place] [facility] [address] [id number] [place] [address]- 4606 31 Oct, 2013 [facility] [place] [facility] [address] [id number] [place] [address]- 1484 31 Oct, 2013 [facility] [place] [facility] [address] [id number] [place] [address]- 4184 Oct, [facility] [place] [facility] [address] [id number] [place] [address]- 4692 Oct, [facility] [place] [facility] [address] [id number] [place] [address]- 8385 Oct, [facility] [place] [facility] [address] [id number] [place] [address]- 2840 19 Oct, 2013 [facility] [place] [facility] [address] [id number] [place] [address]- 7029 Oct, [facility] [place] [facility] [address] [id number] [place] [address]- 4519 Oct, [facility] [place] [facility] [address] [id number] [place] [address]- 2218 11 Oct, 2013 [facility] [place] [facility] [address] [id number] [place] [address]- 1071 04 Oct, 2013 [facility] [place] [facility] [address] [id number] [place] [address]- 6686 04 Oct, 2013 [facility] [place] [facility] [address] [id number] [place] [address]- 5866 03 Oct, 2013 [facility] [place] [facility] [address] [id number] [place] [address]- 4064 Oct, [facility] [place] [facility] [address] [id number] [place] [address]- 6623 24 Sep, 2013 [facility] [place] [facility] [address] [id number] [place] [address]- 8406 24 Sep, 2013 [facility] [place] [facility] [address] [facility] [id number] [place] [address]- 6008 20 Sep, 2013 [facility] [place] [facility] [address] [facility] [id number] [place] [address]- 2181 20 Sep, 2013 [facility] [place] [facility] [address] [id number] [place] [address]- 0014 Sep, [facility] [place] [facility] [address] [facility] [id number] [place] [address]- 9940 20 Sep, 2013 [facility] [place] [facility] [address] [facility] [id number] [place] [address]- 8875 18 Sep, 2013 [facility] [place] [facility] [address] [facility] [id number] [place] [address]- 2670 18 Sep, 2013 [facility] [place] [facility] [address] [facility] [id number] [place] [address]- 9949 14 Sep, 2013 [facility] [place] [facility] [address] [facility] [id number] [place] [address]- 7813 14 Sep, 2013 [facility] [place] [facility] [address] [facility] [id number] [place] [address]- 4194 14 Sep, 2013 [facility] [place] [facility] [address] [facility] [id number] [place] [address]- 0664 14 Sep, 2013 [facility] [place] [facility] [address] [facility] [id number] [place] [address]- 3415 14 Sep, 2013 [facility] [place] [facility] [address] [facility] [id number] [place] [address]- 7568 14 Sep, 2013 [facility] [place] [facility] [address] [facility] [id number] [place] [address]- 0946 13 Sep, 2013 [facility] [place] [facility] [address] [id number] [place] [address]- 3306 Sep, [facility] [place] [facility] [address] [id number] [place] [address]- 4734 Sep, [facility] [place] [facility] [address] [id number] [place] [address]- 7104 Sep, [facility] [place] [facility] [address] [id number] [place] [address]- 7559 Sep, [facility] [place] [facility] [address] [id number] [place] [address]- 2442 Sep, [facility] [place] [facility] [address] [id number] [place] [address]- 5486 Aug, [facility] [place] [facility] [address] [id number] [place] [address]- 0100 Aug, [facility] [place] [facility] [address] [id number] [place] [address]- 9897 Aug, [facility] [place] [facility] [address] [id number] [place] [address]- 7538 Aug, [facility] [place] [facility] [address] [id number] [place] [address]- 4387 Aug, [facility] [place] [facility] [address] [id number] [place] [address]- 2776 Jul, [facility] [place] [facility] [address] [id number] [place] [address]- 1745 Jul, [facility] [place] [facility] [address] [id number] [place] [address]- 6733 Jul, [facility] [place] [facility] [address] [id number] [place] [address]- 2709 Jul, [facility] [place] [facility] [address] [id number] [place] [address]- 5818 Jul, [facility] [place] [facility] [address] [id number] [place] [address]- 7362 Jul, [facility] [place] [facility] [address] [id number] [place] [address]- 5776 Jul, [facility] [place] [facility] [address] [id number] [place] [address]- 2182 Jul, [facility] [place] [facility] [address] [facility] [id number] [place] [address]- 4498 Jul, [facility] [place] [facility] [address] [id number] [place] [address]- 1509 Jun, [facility] [place] [facility] [address] [id number] [place] [address]- 1966 Jun, [facility] [place] [facility] [address] [id number] [place] [address]- 0229 Jun, [facility] [place] [facility] [address] [id number] [place] [address]- 9132 Jun, [facility] [place] [facility] [address] [id number] [place] [address]- 2651 Jun, [facility] [place] [facility] [address] [id number] [place] [address]- 7244 Jun, [facility] [place] [facility] [address] [facility] [id number] [place] [address]- 1994 Jun, [facility] [place] [facility] [address] [id number] [place] [address]- 2765 Jun, [facility] [place] [facility] [address] [id number], [place] [address]- 2126 Jun, [facility] [place] [facility] [address] [id number] [place] [address]- 7156 Jun, [facility] [place] [facility] [address] [facility] [id number] [place] [address]- 9924 May, [facility] [place] [facility] [address] [facility] [id number], [place] [address]- 7735 May, [facility] [place] [facility] [address] [id number] [place] [address]- 4482 May, [facility] [place] [facility] [address] [id number] [place] [address]- 9744 May, [facility] [place] [facility] [address] [id number] [place] [address]- 5650 16 May, 2013 [facility] [place] [facility] [address] [id number] [place] [address]- 5201 May, [facility] [place] [facility] [address] [id number] [place] [address]- 7093 May, [facility] [place] [facility] [address] [id number] [place] [address]- 5617 May, [facility] [place] [facility] [address] [id number] [place] [address]- 7596 May, [facility] [place] [facility] [address] [id number] [place] [address]- 4531 Apr, [facility] [place] [facility] [address] [id number] [place] [address]- 0140 16 Apr, 2013 [facility] [place] [facility] [address] [id number] [place] [address]- 2855 12 Apr, 2013 [facility] [place] [facility] [address] [id number] [place] [address]- 3893 06 Apr, 2013 [facility] [place] [facility] [address] [id number] [place] [address]- 2432 30 Mar, 2013 [facility] [place] [facility] [address] [id number] [place] [address]- 4383 Mar, [facility] [place] [facility] [address] [id number] [place] [address]- 9462 Mar, [facility] [place] [facility] [address] [id number] [place] [address]- 6625 Mar, [facility] [place] [facility] [address] [id number] [place] [address]- 5180 Mar, [facility] [place] [facility] [address] [id number] [place] [address]- 1619 Mar, [facility] [place] [facility] [address] [id number] [place] [address]- 2339 Mar, [facility] [place] [facility] [address] [id number] [place] [address]- 6832 Feb, [facility] [place] [facility] [address] [id number] [place] [address]- 2950 Feb, [facility] [place] [facility] [address] [id number] [place] [address]- 9325 Feb, [facility] [place] [facility] [address] [id number] [place] [address]- 7089 Feb, [facility] [place] [facility] [address] [id number] [place] [address]- 9821 Feb, [facility] [place] [facility] [address] [id number] [place] [address]- 9892 Feb, [facility] [place] [facility] [address] [id number] [place] [address]- 0037 Feb, [facility] [place] [facility] [address] [id number] [place] [address]- 4568 Feb, [facility] [place] [facility] [address] [id number] [place] [address]- 2271 Feb, [facility] [place] [facility] [address] [id number] [place] [address]- 1871 Feb, [facility] [place] [facility] [address] [id number] [place] [address]- 0979 Feb, [facility] [place] [facility] [address] [id number] [place] [address]- 7840 Jan, [facility] [place] [facility] [address] [id number] [place] [address]- 0954 Jan, [facility] [place] [facility] [address] [id number] [place] [address]- 2476 December, [facility] [address] [id number] [place] [address]- 6043 December, [facility] [address] [id number] [place] [address]- 0258 Nov, [facility] [address] [id number] [place] [address]- 8026 Nov, [facility] [address] [id number] [place] [address] Oct, [facility] [address] [id number] [place] [address] Oct, [facility] [address] [id number] [place] [address] Oct, [facility] [address] [id number] [place] [address] Oct, [facility] [address] [id number] [place] [address] Sep, [facility] [address] [id number] [place] [address] Sep, [facility] [address] [id number] [place] [address] Sep, [facility] [address] [id number] [place] [address] Sep, [facility] [address] [id number] [place] [address] Aug, [facility] [address] [id number] [place] [address] Aug, [facility] [address] [id number] [place] [address] Jul, [facility] [address] [id number] [place] [address] Jul, [facility] [place] [facility] [address] [id number] [place] [address] Jul, [facility] [place] [facility] [address] [id number] [place] [address] Jul, [facility] [place] [facility] [address] [id number] [place] [address] Jul, [facility] [place] [facility] [address] [id number] [place] [address] Jul, [facility] [place] [facility] [address] [id number] [place] [address] Jun, [facility] [place] [facility] [address] [id number] [place] [address] Jun, [facility] [place] [facility] [address] [id number] [place] [address] Jun, [facility] [place] [facility] [address] [id number] [place] [address] Jun, [facility] [place] [facility] [address] [id number] [place] [address] Jun, [facility] [place] [facility] [address] [id number], [place] [address] May, [facility] [place] [facility] [address] [id number], [place] [address] May, [facility] [place] [facility] [address] [id number], [place] [address] May, [facility] [place] [facility] [address] [id number] [place] [address] May, [facility] [place] [facility] [address] [id number], [place] [address] May, [facility] [place] [facility] [address] [id number] [place] [address] May, [facility] [place] [facility] [address] [id number] [place] [address] May, [facility] [place] [facility] [address] [id number] [place] [address] May, [facility] [place] [facility] [address] [id number] [place] [address] Mar, [facility] [place] [facility] [address] [id number] [place] [address] Mar, [facility] [place] [facility] [address] [id number] [place] [address] Mar, [facility] [place] [facility] [address] [id number] [place] [address] Feb, [facility] [place] [facility] [address] [id number] [place] [address] Feb, [facility] [place] [facility] [address] [id number] [place] [address] Feb, [facility] [place] [facility] [address] [id number] [place] [address] Feb, [facility] [place] [facility] [address] [id number] [place] [address] Jan, [facility] [place] [facility] [address] [id number] [place] [address] Jan, [facility] [place] [facility] [address] [id number] [place] [address] Jan, [facility] [place] [facility] [address] [id number] [place] [address] December, [facility] [place] [facility] [address] [id number] [place] [address] Nov, [facility] [place] [facility] [address] [id number] [place] [address] Oct, [facility] [place] [facility] [address] [id number] [place] [address] Oct, [facility] [place] [facility] [address] [id number] [place] [address] Oct, [facility] [place] [facility] [address] [id number] [place] [address] Oct, [facility] [place] [facility] [address] [id number] [place] [address] Aug, [facility] [place] [facility] [address] [id number] [place] [address] Aug, [facility] [place] [facility] [address] [id number] [place] [address] Aug, [facility] [place] [facility] [address] [id number] [place] [address] Aug, [facility] [place] [facility] [address] [id number] [place] [address] Aug, [facility] [place] [facility] [address] [id number] [place] [address] Aug, [facility] [place] [facility] [address] [id number] [place] [address] Aug, [facility] [place] [facility] [address] [id number] [place] [address] Aug, [facility] [place] [facility] [address] [id number] [place] [address] Jul, [facility] [place] [facility] [address] [id number] [place] [address] Jun, [facility] [place] [facility] [address] [id number] [place] [address] Jun, [facility] [place] [facility] [address] [id number] [place] [address] Jul, [facility] [place] [facility] [address] [id number] [place] [address] Jul, [facility] [place] [facility] [address] [id number] [place] [address] 22 Jul, 2010 [facility] [place] [facility] [address] [id number] [place] [address] 14 Jul, 2010 [facility] [place] [facility] [address] [id number] [place] [address] 14 Jul, 2010 [facility] [place] [facility] [address] [id number] [place] [address] 24 Jun, 2010 [facility] [place] [facility] [address] [id number] [place] [address] May, [facility] [place] [facility] [address] [id number] [place] [address] Mar, [facility] [place] [facility] [address] [id number] [place] [address] Oct, [facility] [place] [facility] [address] [id number] [place] [address] Aug, [facility] [place] [facility] [address] [id number] [place] [address] 15 Jul, 2009 [facility] [place] [facility] [address] [id number], [place] [address] Jul, [facility] [place] [facility] [address] [id number], [place] [address] Jun, [facility] [place] [facility] [address] [id number], [place] [address] Jun, [facility] [place] [facility] [address] [id number], [place] [address] May, [facility] [place] [facility] [address] [id number] [place] [address] May, [facility] [place] [facility] [address] [id number], [place] [address] Mar, [facility] [place] [facility] [address] [id number], [place] [address] Mar, [facility] [place] [facility] [address] [facility] [id number] [place] [id number] 10 Oct, 2008 IMMUNIZATIONS No Known Immunizations SOCIAL HISTORY Never Assessed REASON FOR VISIT Controlled Med Refill PLAN OF CARE VITAL SIGNS MEDICATIONS Unknown [...] disc replacement L1- L5 - Dr Muhammad ([place]) Surgical History appendectomy 1983 Surgical History hysterectomy 1993 Surgical History dilatation and curettage Surgical History heart cath- Dr Shaw [address] Meza bowel and intestines seperated 2015 Hospitalization History Hospitalization for surgery only
--- OUTSIDE RECORDS SUMMARY | 2018-05-22 08:55 | XMS REPORT ---
Author Author BRENT MOCTEZUMA [facility] Address [address] [place] [address] Phone Unavailable Care Team Providers Care Rn Psych Name Role Phone BRENT MOCTEZUMA Unavailable Unavailable PROBLEMS Type Condition ICD9-CM Code [id number] Code Onset Dates Condition Status SNOMED Code Problem Major depressive disorder, recurrent episode, moderate F33.1 Active 464402905 Problem PTSD (post-traumatic stress disorder) F43.10 Active 38553450 Problem Cannabis abuse F12.10 Active 14779092 Problem GERD with esophagitis K21.0 Active 166221512 Problem Spasm of muscle 728.85 Active 14263236 Problem Cocaine use disorder, moderate, in sustained remission F14.21 Active 78678927 Problem Diarrhea 787.91 Active 22609220 Problem Alcohol use disorder, mild, 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 Active 44053872 Problem Tobacco use Z72.0 Active 273996523 Problem Methamphetamine use disorder, severe, 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2 Active 176924793 Problem Insomnia 780.52 Active 240385825 Problem Generalized anxiety disorder F41.1 Active 01398330 ALLERGIES Substance Reaction Event Type Date Status Pravastatin Sodium itching Drug Allergy Mar, Active Duragesic-100 vomiting- Patches only Drug Allergy Mar, Active ENCOUNTERS Encounter Location Date Diagnosis [facility] [address] [facility] [id number] [place] [id number] Aug, [facility] [address] [facility] [id number] [id number] May, [facility] [address], [place] [address] 2546 May, [facility] [address], [place] [address] 2546 May, [facility] [address], [place] [address] 4[address] Apr, [facility] [address] [place] [id number] 13 Apr, 2018 Dental examination Z01.20 [facility] [address] [place] [address] [id number] Mar, Encounter for dental exam and cleaning w/o abnormal findings Z01.20 [place] [address], [place] [address] 2546 Mar, [facility] [id number] [address] 2546 Feb, Cocaine use disorder, moderate, in sustained [...] Major depressive disorder, recurrent episode, moderate F33.1 [facility] [address] [id number] [address] Jan, Cocaine use disorder, moderate, in sustained remission F14.21 [place] [address], [place] [address] Jan, Cocaine use disorder, moderate, in sustained [...] Major depressive disorder, recurrent episode, moderate F33.1 [facility] [address], [place] [address] Jan, Dysuria R30.0 and GERD with esophagitis K21.0 [facility] [address] [place] [address]66- 9808 December, Major depressive disorder, recurrent episode, moderate F33.1 [place] [id number] [place] [address]- 2855 December, [place] [address] [place] [address] 61268- 2659 December, Major depressive disorder, recurrent episode, moderate [...] sustained remission F10.11 and Tobacco use Z72.0 [address], [place] [address] Nov, [facility] [address] [place] [id number] [place] [address] Nov, [facility] [address] [place] [address]- 5736 Nov, Wellness examination Z00.00 ; Encounter for immunization Z23 ; Screening for osteoporosis Z13.820 ; Screening for breast cancer Z12.31 and Left breast lump N63.20 [facility] [address] [id number] Oct, Dental examination Z01.20 [facility] [address] [id number], [place] [address] Oct, [facility] [id number] [place] [address]73- 8793 Oct, [facility] [address] [place] [address] 37337- 7073 16 Sep, 2017 [facility] [id number] [place] [address]- 4938 Sep, [facility] [id number] [place] [address]- 0332 14 Sep, 2017 Left otitis media with effusion H65.92 ; Acute suppurative otitis media of right ear without spontaneous rupture of tympanic membrane, recurrence not specified H66.001 ; Dizziness R42 and Fatigue 780.79 [place] [address] [place] [address]- 7475 Aug, Major depressive disorder, recurrent episode, moderate [...] sustained remission F10.11 and Tobacco use Z72.0 [facility] [address], [place] [address] Aug, Ingrown right big toenail L60.0 [facility] [address], [place] [address] Aug, [facility] [address] [place] [address] 5596 Aug, PTSD (post-traumatic stress disorder) F43.10 [facility] [address] [place] [address] 0649 Aug, Major depressive disorder, recurrent episode, moderate F33.1 ; Generalized anxiety disorder F41.1 and Cannabis abuse F12.10 [facility] [address], [place] [address] Jul, [facility] [address] [address] Jul, [facility] [address], [place] [address] 9546 Jul, [facility] [id number] [place] [address] 02142- 2176 Jul, Major depressive disorder, recurrent episode, moderate F33.1 ; Generalized anxiety disorder F41.1 and Cannabis abuse F12.10 [facility] [id number] [place] [address] 1946 Jul, [facility] [address], [place] [address] 85[address] Jul, [facility] [id number] [place] [address]- 1645 Jul, Hyperlipidemia 272.4 [facility] [address] [place] [address] 18245- 6156 Jul, PTSD (post-traumatic stress disorder) F43.10 [facility] [address], [place] [address] Jul, Tobacco use Z72.0 ; Alcohol use [...] disorder F41.1 and Cannabis abuse F12.10 [facility] [address], [place] [address] Jul, [facility] [address], [place] [address] 0947 Jul, Dysuria R30.0 and Mixed hyperlipidemia E78.2 [facility] [address] [place] [address] 14941- 6040 Jun, Major depressive disorder, recurrent episode, moderate F33.1 ; Generalized anxiety disorder F41.1 and Cannabis abuse F12.10 [place] [address] [place] [address]- 8894 Jun, [place] [id number] [place] [address]- 8301 Jun, Generalized anxiety disorder F41.1 ; Major depressive disorder, recurrent episode, moderate F33.1 ; PTSD (post-traumatic stress disorder) F43.10 ; Opioid use disorder, moderate, in sustained remission F11.21 ; Cannabis abuse F12.10 ; Alcohol use disorder, mild, 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 ; Methamphetamine use disorder, severe, 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 ; Cocaine use disorder, moderate, in sustained remission F14.21 and Tobacco use Z72.0 [place] [address] [place] [address] 89786- 7094 Jun, Major depressive disorder, recurrent episode, moderate F33.1 ; Generalized anxiety disorder F41.1 and Cannabis abuse F12.10 [place] [address], [place] [address] 4577 Jun, [place] [address] [place] [address] 76893- 6021 Jun, [facility] [id number] [place] [address] 34340- 5084 Jun, Major depressive disorder, recurrent episode, moderate F33.1 ; Generalized anxiety disorder F41.1 and Cannabis abuse F12.10 [facility] [address] [place] [address] [id number] Mar, Dental examination Z01.20 [facility] [address] [place] [address] [id number] Feb, Dental examination Z01.20 [facility] [id number], [place] [address] 90[address] Mar, [facility] [address], [place] [address] Mar, [facility] [address], [place] [address] 0896 15 Feb, 2015 Hyperlipidemia 272.4 and Prediabetes 790.29 [facility] [id number] [place] [address] 59295- 3172 Feb, Fatigue 780.79 and Hyperlipidemia 272.4 [facility] [address] [place] [address] 61325- 0232 Feb, Lumbago 724.2 ; Hyperlipidemia 272.4 ; Insomnia 780.52 and Fatigue 780.79 [facility] [address], [place] [address]- 8898 Nov, [facility] [address], [place] [address]- 5136 Nov, [facility] [address], [place] [address] 7025 Mar, [facility] [address], [place] [address]- 4703 Mar, [facility] [address], [place] [address]- 8948 Jan, [facility] [address], [place] [address]- 4948 Jan, [facility] [address], [place] [address] 5122 December, [facility] [address], [place] [address]- 0212 December, [facility] [id number], [place] [address]- 5600 Nov, [facility] [address], [place] [address]- 9175 30 Nov, 2013 [facility] [place] [facility] [address] [id number] [place] [address]- 2000 Nov, [facility] [place] [facility] [address] [id number] [place] [address]- 0059 Nov, [facility] [place] [facility] [address] [id number] [place] [address]- 6874 Nov, [facility] [place] [facility] [address] [id number] [place] [address]- 1642 Nov, [facility] [place] [facility] [address] [id number] [place] [address]- 2676 Oct, [facility] [place] [facility] [address] [id number] [place] [address]- 6304 31 Oct, 2013 [facility] [place] [facility] [address] [id number] [place] [address]- 3455 Oct, [facility] [place] [facility] [address] [id number] [place] [address]- 9349 Oct, [facility] [place] [facility] [address] [id number] [place] [address]- 8799 Oct, [facility] [place] [facility] [address] [id number] [place] [address]- 7273 Oct, [facility] [place] [facility] [address] [id number] [place] [address]- 6466 Oct, [facility] [place] [facility] [address] [id number] [place] [address]- 7017 Oct, [facility] [place] [facility] [address] [id number] [place] [address]- 9476 Oct, [facility] [place] [facility] [address] [id number] [place] 3641 04 Oct, 2013 [facility] [place] [facility] [address] [id number] [place] [address] Oct, [facility] [place] [facility] [address] [id number] [place] [address]- 1101 Oct, [facility] [place] [facility] [address] [id number] [place] [address]- 9641 Oct, [facility] [place] [facility] [address] [id number] [place] [address]- 2036 Sep, [facility] [place] [facility] [address] [id number] [place] [address]- 8032 24 Sep, 2013 [facility] [place] [facility] [address] [id number] [place] [address]- 9280 Sep, [facility] [place] [facility] [address] [id number] [place] [address]- 1949 Sep, [facility] [place] [facility] [address] [id number] [place] [address]- 6669 Sep, [facility] [place] [facility] [address] [id number] [place] [address]- 4365 Sep, [facility] [place] [facility] [address] [id number] [place] [address]- 3002 18 Sep, 2013 [facility] [place] [facility] [address] [id number] [place] [address]- 7063 18 Sep, 2013 [facility] [place] [facility] [address] [id number] [place] [address]- 5529 14 Sep, 2013 [facility] [place] [facility] [address] [id number] [place] [address]- 1815 14 Sep, 2013 [facility] [place] [facility] [address] [id number] [place] [address]- 8329 14 Sep, 2013 [facility] [place] [facility] [address] [id number] [place] [address]- 1218 14 Sep, 2013 [facility] [place] [facility] [address] [id number] [place] [address]- 6032 14 Sep, 2013 [facility] [place] [facility] [address] [id number] [place] [address]- 6094 14 Sep, 2013 [facility] [place] [facility] [address] [id number] [place] [address]- 8206 Sep, [facility] [place] [facility] [address] [id number] [place] [address]- 5226 13 Sep, 2013 [facility] [place] [facility] [address] [id number] [place] [address]- 6446 Sep, [facility] [place] [facility] [address] [id number] [place] [address]- 5212 Sep, [facility] [place] [facility] [address] [id number] [place] [address]- 5182 Sep, [facility] [place] [facility] [address] [id number] [place] [address]- 8016 Sep, [facility] [place] [facility] [address] [id number] [place] [address]- 4837 Aug, [facility] [place] [facility] [address] [id number] [place] [address]- 1391 Aug, [facility] [place] [facility] [address] [id number] [place] [address]- 5786 Aug, [facility] [place] [facility] [address] [facility] [id number] [place] [address]- 2375 Aug, [facility] [place] [facility] [address] [id number] [place] [address]- 2594 Aug, [facility] [place] [facility] [address] [id number] [place] [address]- 8224 Jul, [facility] [place] [facility] [address] [id number] [place] [address]- 3951 Jul, [facility] [place] [facility] [address] [id number] [place] [address]- 0076 Jul, [facility] [place] [facility] [address] [id number] [place] [address]- 8014 Jul, [facility] [place] [facility] [address] [id number] [place] [address]- 0811 Jul, [facility] [place] [facility] [address] [id number] [place] [address]- 9272 Jul, [facility] [place] [facility] [address] [id number] [place] [address]- 3828 Jul, [facility] [place] [facility] [address] [id number] [place] [address]- 8176 Jul, [facility] [place] [facility] [address] [id number] [place] [address]- 2046 Jul, [facility] [place] [facility] [address] [id number] [place] [address]- 8667 Jun, [facility] [place] [facility] [address] [id number] [place] [address]- 4992 Jun, [facility] [place] [facility] [address] [id number], [place] [address]- 0748 Jun, [facility] [place] [facility] [address] [id number] [place] [address]- 9954 Jun, [facility] [place] [facility] [address] [id number], [place] [address]- 2772 Jun, [facility] [place] [facility] [address] [id number], [place] [address]- 3288 Jun, [facility] [place] [facility] [address] [id number], [place] [address]- 0079 Jun, [facility] [place] [facility] [address] [id number], [place] [address]- 6280 Jun, [facility] [place] [facility] [address] [id number], [place] [address]- 7500 Jun, [facility] [place] [facility] [address] [id number], [place] [address]- 6224 Jun, [facility] [place] [facility] [address] [id number] [place] [address]- 2170 May, [facility] [place] [facility] [address] [id number] [place] [address]- 7768 28 May, 2013 [facility] [place] [facility] [address] [id number] [place] [address]- 5118 May, [facility] [place] [facility] [address] [id number] [place] [address]- 3622 May, [facility] [place] [facility] [address] [id number] [place] [address]- 9151 16 May, 2013 [facility] [place] [facility] [address] [id number] [place] [address]- 3767 May, [facility] [place] [facility] [address] [id number] [place] [address]- 7572 May, [facility] [place] [facility] [address] [id number] [place] [address]- 0119 May, [facility] [place] [facility] [address] [id number] [place] [address]- 2432 May, [facility] [place] [facility] [address] [id number] [place] [address]- 1756 26 Apr, 2013 [facility] [place] [facility] [address] [id number] [place] [address]- 2535 16 Apr, 2013 [facility] [place] [facility] [address] [id number] [place] [address]- 5898 12 Apr, 2013 [facility] [place] [facility] [address] [id number] [place] [address]- 2541 06 Apr, 2013 [facility] [place] [facility] [address] [id number] [place] [address]- 1717 30 Mar, 2013 [facility] [place] [facility] [address] [id number] [place] [address]- 5955 Mar, [facility] [place] [facility] [address] [id number] [place] [address]- 3478 Mar, [facility] [place] [facility] [address] [id number] [place] [address]- 3496 Mar, [facility] [place] [facility] [address] [id number] [place] [address]- 7263 Mar, [facility] [place] [facility] [address] [id number] [place] [address]- 1113 Mar, [facility] [place] [facility] [address] [id number] [place] [address]- 0224 Mar, [facility] [place] [facility] [address] [id number] [place] [address]- 3209 Feb, [facility] [place] [facility] [address] [id number] [place] [address]- 7480 Feb, [facility] [place] [facility] [address] [id number] [place] [address]- 4251 Feb, [facility] [place] [facility] [address] [id number] [place] [address]- 7738 Feb, [facility] [place] [facility] [address] [id number] [place] [address]- 8694 Feb, [facility] [place] [facility] [address] [id number] [place] [address]- 5412 Feb, [facility] [place] [facility] [address] [id number] [place] [address]- 7678 Feb, [facility] [place] [facility] [address] [id number] [place] [address]- 4782 Feb, [facility] [place] [facility] [address] [id number] [place] [address]- 0160 Feb, [facility] [place] [facility] [address] [id number] [place] [address]- 8162 Feb, [facility] [place] [facility] [address] [id number] [place] [address]- 1992 Feb, [facility] [place] [facility] [address] [id number] [place] [address]- 4368 Jan, [facility] [address] [id number] [place] [address]- 0666 Jan, [facility] [place] [facility] [address] [id number] [place] [address]- 5040 December, [facility] [place] [facility] [address] [id number] [place] [address]- 8047 December, [facility] [place] [facility] [address] [id number] [place] [address]- 7624 Nov, [facility] [place] [facility] [address] [id number] [place] [address]- 0157 Nov, [facility] [place] [facility] [address] [id number] [place] [address]- 9075 Oct, [facility] [place] [facility] [address] [id number] [place] [address]- 5589 Oct, [facility] [place] [facility] [address] [id number] [place] [address]- 7272 Oct, [facility] [place] [facility] [address] [id number] [place] [address]- 9564 Oct, [facility] [place] [facility] [address] [id number] [place] [address]- 7287 Sep, [facility] [place] [facility] [address] [id number] [place] [address]- 1363 Sep, [facility] [place] [facility] [address] [id number] [place] [address] Sep, [facility] [place] [facility] [address] [id number] [place] [address] Sep, [facility] [place] [facility] [address] [id number] [place] [address] Aug, [facility] [place] [facility] [address] [id number] [place] [address] Aug, [facility] [place] [facility] [address] [id number] [place] [address] Jul, [facility] [place] [facility] [address] [id number] [place] [address] Jul, [facility] [place] [facility] [address] [id number] [place] [address] Jul, [facility] [place] [facility] [address] [id number] [place] [address] Jul, [facility] [place] [facility] [address] [id number] [place] [address] Jul, [facility] [place] [facility] [address] [id number] [place] [address] Jul, [facility] [place] [facility] [address] [id number] [place] [address] Jun, [facility] [place] [facility] [address] [id number] [place] [address] Jun, [facility] [place] [facility] [address] [id number] [place] [address] Jun, [facility] [place] [facility] [address] [id number] [place] [address] Jun, [facility] [place] [facility] [address] [id number] [place] [address] Jun, [facility] [place] [facility] [address] [id number] [place] [address] May, [facility] [place] [facility] [address] [id number] [place] [address] May, [facility] [place] [facility] [address] [id number] [place] [address] May, [facility] [place] [facility] [address] [id number] [place] [address] May, [facility] [place] [facility] [address] [id number] [place] [address] May, [facility] [place] [facility] [address] [id number] [place] [address] May, [facility] [place] [facility] [address] [id number] [place] [address] May, [facility] [place] [facility] [address] [id number] [place] [address] May, [facility] [place] [facility] [address] [id number] [place] [address] Mar, [facility] [place] [facility] [address] [id number] [place] [address] Mar, [facility] [place] [facility] [address] [id number] [place] [address] Mar, [facility] [place] [facility] [address] [id number] [place] [address] Feb, [facility] [place] [facility] [address] [id number] [place] [address] Feb, [facility] [place] [facility] [address] [id number] [place] [address] Feb, [facility] [place] [facility] [address] [id number] [place] [address] Feb, [facility] [place] [facility] [address] [id number] [place] [address] Jan, [facility] [place] [facility] [address] [id number], [place] [address] Jan, [facility] [place] [facility] [address] [id number] [place] [address] Jan, [facility] [place] [facility] [address] [id number] [place] [address] December, [facility] [place] [facility] [address] [id number] [place] [address] Nov, [facility] [place] [facility] [address] [id number] [place] [address] 29 Oct, 2011 [facility] [address] [id number] [place] [address] Oct, [facility] [place] [facility] [address] [id number] [place] [address] 05 Oct, 2011 [facility] [place] [facility] [address] [id number] [place] [address] Oct, [facility] [place] [facility] [address] [id number] [place] [address] Aug, [facility] [place] [facility] [address] [id number] [place] [address] Aug, [facility] [place] [facility] [address] [id number] [place] [address] Aug, [facility] [place] [facility] [address] [id number] [place] [address] Aug, [facility] [place] [facility] [address] [id number] [place] [address] Aug, [facility] [place] [facility] [address] [id number] [place] [address] Aug, [facility] [place] [facility] [address] [id number] [place] [address] Aug, [facility] [place] [facility] [address] [id number] [place] [address] Aug, [facility] [facility] [address] [id number] [place] [address] Jul, [facility] [place] [facility] [address] [id number] [place] [address] Jun, [facility] [place] [facility] [address] [id number] [place] [address] Jun, [facility] [place] [facility] [address] [id number] [place] [address] Jul, [facility] [place] [facility] [address] [id number] [place] [address] Jul, [facility] [place] [facility] [address] [id number] [place] [address] Jul, [facility] [place] [facility] [address] [id number] [place] [address] Jul, [facility] [place] [facility] [address] [id number] [place] [address] 14 Jul, 2010 [facility] [place] [facility] [address] [id number] [place] [address] 24 Jun, 2010 [facility] [place] [facility] [address] [id number] [place] [address] May, [facility] [place] [facility] [address] [id number] [place] [address] Mar, [facility] [place] [facility] [address] [id number] [place] [address] Oct, [facility] [place] [facility] [address] [id number] [place] [address] Aug, [facility] [place] [facility] [address] [id number] [place] [address] 15 Jul, 2009 [facility] [place] [facility] [address] [id number] [place] [address] Jul, [facility] [place] [facility] [address] [id number] [place] [address] Jun, [facility] [place] [facility] [address] [id number] [place] [address] Jun, [facility] [place] [facility] [address] [id number] [place] [address] May, [facility] [place] [facility] [address] [id number] [place] [address] May, [facility] [place] [facility] [address] [id number] [place] [address] Mar, [facility] [address] [facility] [id number] [place] [id number] Mar, [facility] [address] [facility] [id number] [place] [address] Oct, IMMUNIZATIONS No Known Immunizations SOCIAL HISTORY Never Assessed REASON FOR VISIT Prophy PLAN OF CARE Activity Details Follow Up [facility] Reason:[address] Booth VITAL SIGNS MEDICATIONS Medication Instructions Dosage Frequency Start Date End Date Duration Status Effexor XR 37.5 MG Orally Once a day 1 capsule with food 24h Jan, 30 days Active Xanax 1 mg Orally three times a day 1 tablet 8h 30 days Active Trazodone HCl 100 MG Orally Once a day 1 tablet at bedtime 24h Feb, Active Protonix 40 MG Orally Once a day 1 tablet 24h 30 Active RESULTS No Results PROCEDURES Procedure Date Ordered Result Body Site PERIODIC ORAL EXAMINATION Mar 16, 2018 INTRAORL-PERIAPICAL 1 FILM [id number] Mar 16, 2018 PROPHYLAXIS - ADULT Mar 16, 2018 BITEWINGS - FOUR FILMS Mar 16, 2018 TOPICAL FLUORIDE VARNISH Mar 16, 2018 INTRAORL-PERIAPICAL EA ADD FILM Mar 16, 2018 INTRAORL-PERIAPICAL EA ADD FILM Mar 16, 2018 INTRAORL-PERIAPICAL EA ADD FILM Mar 16, 2018 INTRAORL-PERIAPICAL EA ADD FILM Mar 16, 2018 INSTRUCTIONS MEDICATIONS ADMINISTERED No Known Medications [...] - Dr Muhammad (Daniella) Surgical History appendectomy 1984 Surgical History hysterectomy 1993 Surgical History dilatation and curettage Surgical History heart cath- Dr Shaw [address] Meza bowel and intestines 2015 Hospitalization History Hospitalization for surgery only
[2018-05-22] MEDS ORDERED: LACTATED RINGERS 1,000 ML IV PRN (08:56)
--- OUTSIDE RECORDS SUMMARY | 2018-05-22 09:21 | XMS REPORT | Continuity of Care Document ---
Author Author [facility] Address Unknown Phone Unavailable Allergies Active Description Code Type Severity Reaction Onset Reported/Identified Relationship to Patient Clinical Status Yes Duragesic Drug Allergy 08/28/2008 Yes Duragesic Drug Allergy N/A N/A 08/28/2008 Yes fentanyl [id number] Drug Allergy Unknown N/A 01/16/2017 Yes Xeivjil-Bru-Nza Reductase Inhibitor [id number] Drug Allergy Unknown LEG CRAMPS 01/16/2017 Yes fentanyl [id number] Drug Allergy Severe SEVERE N/V 05/17/2018 Yes Lscelsm-Ptl-Int Reductase Inhibitor [id number] Drug Allergy Mild LEG CRAMPS 05/17/2018 Medications There is no data. Problems Date Dx Coded Attending Type Code Diagnosis Diagnosed By 07/06/1342 RK MARQUEZ MD, Ot S13.4XXD SPRAIN OF LIGAMENTS OF CERVICAL SPINE, S 07/06/1342 RK MARQUEZ MD, Ot X50.9XXD OTHER AND UNSPECIFIED OVREXRTN OR STRNOU 03/19/2008 DON GUADALUPE APRN S 729.1 Inflammatory Myopathy (myositis) 03/19/2008 DON GUADALUPE APRN S 789.00 Abdominal Pain 03/19/2008 729.1 Inflammatory Myopathy (myositis) 03/19/2008 789.00 Abdominal Pain 03/19/2008 SAMANTHA GUADALUPE APRNA S 729.1 Inflammatory Myopathy (myositis) 03/19/2008 SAMANTHA GUADALUPE APRNA S 789.00 Abdominal Pain 03/19/2008 DOMINIQUE GUADALUPE APRNNDA S 729.1 Inflammatory Myopathy (myositis) 03/19/2008 DOMINIQUE GUADALUPE APRNNDA S 789.00 Abdominal Pain 03/19/2008 729.1 Inflammatory Myopathy (myositis) 03/19/2008 789.00 Abdominal Pain 03/19/2008 729.1 Inflammatory Myopathy (myositis) 03/19/2008 789.00 Abdominal Pain 03/19/2008 MELISSA DAHL MD 729.1 Inflammatory Myopathy (myositis) 03/19/2008 MELISSA DAHL MD 789.00 Abdominal Pain 03/19/2008 ANAYELI BARON, DON S 729.1 Inflammatory Myopathy (myositis) 03/19/2008 ANAYELI BARON, DON S 789.00 Abdominal Pain 03/19/2008 NEISHA NEGRONSKACIE 729.1 Inflammatory Myopathy (myositis) 03/19/2008 NEISHA NEGRONS, KACIE Fontanez 789.00 Abdominal Pain 03/19/2008 ANAYELI BARON, DON [...] S 729.1 Inflammatory Myopathy (myositis) 03/19/2008 ANAYELI SENIOR UI DESIGNER, DON S 789.00 Abdominal Pain 03/19/2008 EDD NEGRONS, STALIN J 729.1 Inflammatory Myopathy (myositis) 03/19/2008 EDD NEGRONS, STALIN J 789.00 Abdominal Pain 03/19/2008 ANAYELI BARON, DON S 729.1 Inflammatory Myopathy (myositis) 03/19/2008 ANAYELI BARON, DON S 789.00 Abdominal Pain 08/28/2008 DOMINIQUE GUADALUPE APRNNDA S 296.90 Episodic Mood Disorders 08/28/2008 ANAYELI BARON DON S 300.00 Anxiety 08/28/2008 DOMINIQUE GUADALUPE APRNNDA S 627.9 MENOPAUSAL DISORDER 08/28/2008 296.90 Episodic Mood Disorders 08/28/2008 300.00 Anxiety 08/28/2008 627.9 MENOPAUSAL DISORDER 08/28/2008 ANAYELI SENIOR UI DESIGNER, DON S 296.90 Episodic Mood Disorders 08/28/2008 ANAYELI SENIOR UI DESIGNER, DON S 300.00 Anxiety 08/28/2008 ANAYELI SENIOR UI DESIGNER, DON S 627.9 MENOPAUSAL DISORDER 08/28/2008 ANAYELI SENIOR UI DESIGNER, DON S 296.90 Episodic Mood Disorders 08/28/2008 ANAYELI SENIOR UI DESIGNER, DON S 300.00 Anxiety 08/28/2008 ANAYELI SENIOR UI DESIGNER, DON S 627.9 MENOPAUSAL DISORDER 08/28/2008 296.90 [...] ANAYELI PATN, DON S 627.9 MENOPAUSAL DISORDER 08/28/2008 NEISHA DDS, KACIE M 296.90 Episodic Mood Disorders 08/28/2008 NEISHA DDS, KACIE M 300.00 Anxiety 08/28/2008 NEISHA DDS, KACIE M 627.9 MENOPAUSAL DISORDER 08/28/2008 ANAYELI PATN, DON S 296.90 Episodic Mood Disorders 08/28/2008 ANAYELI SENIOR UI DESIGNER, DON S 300.00 Anxiety 08/28/2008 ANAYELI SENIOR UI DESIGNER, DON S 627.9 MENOPAUSAL DISORDER 08/28/2008 ANAYELI SENIOR UI DESIGNER, DON S 296.90 Episodic Mood Disorders 08/28/2008 ANAYELI SENIOR UI DESIGNER, DON S 300.00 Anxiety 08/28/2008 ANAYELI SENIOR UI DESIGNER, DON S 627.9 MENOPAUSAL DISORDER 08/28/2008 ANAYELI SENIOR UI DESIGNER, DON S 296.90 Episodic Mood Disorders 08/28/2008 ANAYELI SENIOR UI DESIGNER, DON S 300.00 Anxiety 08/28/2008 ANAYELI SENIOR UI DESIGNER, DON S 627.9 MENOPAUSAL DISORDER 08/28/2008 ANAYELI SENIOR UI DESIGNER, DON S 296.90 Episodic Mood Disorders 08/28/2008 ANAYELI SENIOR UI DESIGNER, DON S 300.00 Anxiety 08/28/2008 ANAYELI SENIOR UI DESIGNER, DON S 627.9 MENOPAUSAL DISORDER 08/28/2008 WHITE DDS, STALIN J 296.90 Episodic Mood Disorders 08/28/2008 WHITE DDS, STALIN J 300.00 Anxiety 08/28/2008 WHITE DDS, STALIN J 627.9 MENOPAUSAL DISORDER 08/28/2008 ANAYELI PATN, DON S 296.90 Episodic Mood Disorders 08/28/2008 ANAYELI SENIOR UI DESIGNER, DON S 300.00 Anxiety 08/28/2008 ANAYELI PATN, DON S 627.9 MENOPAUSAL DISORDER 09/30/2008 ANAYELI PATN, DON S 346.90 Migraine Headache 09/30/2008 346.90 Migraine Headache 09/30/2008 ANAYELI SENIOR UI DESIGNER, DON S 346.90 Migraine Headache 09/30/2008 ANAYELI SENIOR UI DESIGNER, DON S 346.90 Migraine Headache 09/30/2008 346.90 Migraine Headache 09/30/2008 346.90 Migraine Headache 09/30/2008 MELISSA DAHL MD 346.90 Migraine Headache 09/30/2008 ANAYELI SENIOR UI DESIGNER, DON S 346.90 Migraine Headache 09/30/2008 KACIE DRIVER DDS 346.90 Migraine Headache 09/30/2008 ANAYELI SENIOR UI DESIGNER, DON S 346.90 Migraine Headache 09/30/2008 ANAYELI SENIOR UI DESIGNER, DON S 346.90 Migraine Headache 09/30/2008 ANAYELI SENIOR UI DESIGNER, DON S 346.90 Migraine Headache 09/30/2008 ANAYELI SENIOR UI DESIGNER, DON S 346.90 Migraine Headache 09/30/2008 WHITE DDS, STALIN J 346.90 Migraine Headache 09/30/2008 ANAYELI SENIOR UI DESIGNER, DON S 346.90 Migraine Headache 10/14/2008 ANAYELI PATN, DON S 461.9 Acute Sinusitis Unspecified 10/14/2008 461.9 Acute Sinusitis Unspecified 10/14/2008 ANAYELI BARON, DON S 461.9 Acute Sinusitis Unspecified 10/14/2008 ANAYELI BARON, DON S 461.9 Acute Sinusitis Unspecified 10/14/2008 461.9 Acute Sinusitis Unspecified 10/14/2008 461.9 Acute Sinusitis Unspecified 10/14/2008 MELISSA DAHL MD 461.9 Acute Sinusitis Unspecified 10/14/2008 ANAYELI BARON, DON S 461.9 Acute Sinusitis Unspecified 10/14/2008 KACIE DRIVER DDS 461.9 Acute Sinusitis Unspecified 10/14/2008 ANAYELI PATN, DON S 461.9 Acute [...] MD 780.79 Feeling Tired Or Poorly 01/28/2009 SAMANTHA GUADALUPE APRNA S 309.81 Chronic Post-traumatic Stress Disorder 01/28/2009 SAMANTHA GUADALUPE APRNA S 564.01 Constipation Slow Transit 01/28/2009 SAMANTHA GUADALUPE APRNA S 780.52 insomnia 01/28/2009 SAMANTHA GUADALUPE APRNA S 780.79 Feeling Tired Or Poorly 01/28/2009 KACIE DRIVER DDS 309.81 Chronic Post-traumatic Stress Disorder 01/28/2009 NEISHA SANCHEZ, KACIE Fontanez 564.01 Constipation Slow Transit 01/28/2009 KACIE DRIVER DDS 780.52 insomnia 01/28/2009 KACIE DRIVER DDS 780.79 Feeling Tired Or Poorly 01/28/2009 SAMANTHA GUADALUPE APRNA S 309.81 Chronic Post-traumatic Stress Disorder 01/28/2009 SAMANTHA GUADALUPE APRNA S 564.01 Constipation Slow Transit 01/28/2009 ANAYELI SENIOR UI DESIGNER, DON S 780.52 insomnia 01/28/2009 DOMINIQUE GUADALUPE [...] J 780.79 Feeling Tired Or Poorly 01/28/2009 DOMINIQUE GUADALUPE APRNNDA S 309.81 Chronic Post-traumatic Stress Disorder 01/28/2009 DOMINIQUE GUADALUPE APRNNDA S 564.01 Constipation Slow Transit 01/28/2009 DOMINIQUE GUADALUPE APRNNDA S 780.52 insomnia 01/28/2009 ANAYELI BARON DON S 780.79 Feeling Tired Or Poorly 02/27/2009 DOMINIQUE GUADALUPE APRNNDA S 461.1 Sinusitis Acute Frontal 02/27/2009 DOMINIQUE GUADALUPE APRNNDA S 784.0 Headache 02/27/2009 461.1 Sinusitis Acute Frontal 02/27/2009 784.0 Headache 02/27/2009 ANAYELI BARON, DON S 461.1 Sinusitis Acute Frontal 02/27/2009 ANAYELI SENIOR UI DESIGNER, DON S 784.0 Headache 02/27/2009 ANAYELI SENIOR UI DESIGNER, DON S 461.1 Sinusitis Acute Frontal 02/27/2009 ANAYELI BARON, DON S 784.0 Headache 02/27/2009 461.1 Sinusitis Acute Frontal 02/27/2009 784.0 Headache 02/27/2009 461.1 Sinusitis Acute Frontal 02/27/2009 784.0 Headache 02/27/2009 MELISSA DAHL MD 461.1 Sinusitis Acute Frontal 02/27/2009 MELISSA DAHL MD 784.0 Headache 02/27/2009 ANAYELI BARON, DON S 461.1 Sinusitis Acute Frontal 02/27/2009 ANAYELI BARON, DON S 784.0 Headache 02/27/2009 NEISHA DDS, KACIE M 461.1 Sinusitis Acute Frontal 02/27/2009 NEISHA DDS, KACIE M 784.0 Headache 02/27/2009 ANAYELI BARON, DON S 461.1 Sinusitis Acute Frontal 02/27/2009 ANAYELI BARON, DON S 784.0 Headache 02/27/2009 ANAYELI BARON, DON S 461.1 Sinusitis Acute Frontal 02/27/2009 ANAYELI BARON, DON S 784.0 Headache 02/27/2009 ANAYELI SENIOR UI DESIGNER, DON S 461.1 Sinusitis Acute Frontal 02/27/2009 ANAYELI SENIOR UI DESIGNER, DON S 784.0 Headache 02/27/2009 ANAYELI SENIOR UI DESIGNER, DON S 461.1 Sinusitis Acute Frontal 02/27/2009 ANAYELI SENIOR UI DESIGNER, DON S 784.0 Headache 02/27/2009 WHITE DDS, STALIN J 461.1 Sinusitis Acute Frontal 02/27/2009 WHITE DDS, STALIN J 784.0 Headache 02/27/2009 ANAYELI BARON, DON S 461.1 Sinusitis Acute Frontal 02/27/2009 DOMINIQUE GUADALUPE APRNNDA S 784.0 Headache 03/20/2009 DOMINIQUE GUADALUPE APRNNDA S 724.1 upper back pain (between shoulder blades) 03/20/2009 ANAYELI BARON DON S 787.01 Nausea With Vomiting 03/20/2009 ANAYELI BARON, DON S 787.91 Diarrhea 03/20/2009 724.1 upper back pain (between shoulder blades) 03/20/2009 787.01 Nausea With Vomiting 03/20/2009 787.91 Diarrhea 03/20/2009 ANAYELI BARON, DON S 724.1 upper back pain (between shoulder blades) 03/20/2009 DOMINIQUE GUADALUPE APRNNDA S 787.01 Nausea With Vomiting 03/20/2009 ANAYELI BARON DON S 787.91 Diarrhea 03/20/2009 ANAYELI BARON DON S [...] DAHL MD 787.01 Nausea With Vomiting 03/20/2009 MELISSA DAHL MD 787.91 Diarrhea 03/20/2009 DOMINIQUE GUADALUPE APRNNDA S 724.1 upper back pain (between shoulder blades) 03/20/2009 DOMINIQUE GUADALUPE APRNNDA S 787.01 Nausea With Vomiting 03/20/2009 ANAYELI BARON DON S 787.91 Diarrhea 03/20/2009 KACIE DRIVER DDS 724.1 upper back pain (between shoulder blades) 03/20/2009 NEISHA DDS, KACIE M 787.01 Nausea With Vomiting 03/20/2009 NEISHA DDS, KACIE M 787.91 Diarrhea 03/20/2009 ANAYELI BARON, DON S 724.1 upper back pain (between shoulder blades) 03/20/2009 ANAYELI SENIOR UI DESIGNER, DON S 787.01 Nausea With Vomiting 03/20/2009 ANAYELI SENIOR UI DESIGNER, DON S 787.91 Diarrhea 03/20/2009 ANAYELI SENIOR UI DESIGNER, DON S 724.1 upper back pain (between shoulder blades) 03/20/2009 ANAYELI SENIOR UI DESIGNER, DON S 787.01 Nausea With Vomiting 03/20/2009 ANAYELI SENIOR UI DESIGNER, DON S 787.91 Diarrhea 03/20/2009 ANAYELI SENIOR UI DESIGNER, DON S 724.1 upper back pain (between shoulder blades) 03/20/2009 ANAYELI SENIOR UI DESIGNER, DON S 787.01 Nausea With Vomiting 03/20/2009 ANAYELI SENIOR UI DESIGNER, DON S 787.91 Diarrhea 03/20/2009 ANAYELI SENIOR UI DESIGNER, DON S 724.1 upper back pain (between shoulder blades) 03/20/2009 ANAYELI SENIOR UI DESIGNER, DON S 787.01 Nausea With Vomiting 03/20/2009 ANAYELI SENIOR UI DESIGNER, DON S 787.91 Diarrhea 03/20/2009 WHITE DDS, STALIN J 724.1 upper back pain (between shoulder blades) 03/20/2009 WHITE DDS, STALIN J 787.01 Nausea With Vomiting 03/20/2009 WHITE DDS, STALIN J 787.91 Diarrhea 03/20/2009 ANAYELI SENIOR UI DESIGNER, DON S 724.1 upper back pain (between shoulder blades) 03/20/2009 ANAYELI SENIOR UI DESIGNER, DON S 787.01 Nausea With Vomiting 03/20/2009 ANAYELI SENIOR UI DESIGNER, DON S 787.91 Diarrhea 03/25/2009 ANAYELI BARON DON S 300.02 GENERALIZED ANXIETY DISORDER 03/25/2009 300.02 GENERALIZED ANXIETY DISORDER 03/25/2009 DOMINIQUE GUADALUPE APRNNDA S 300.02 GENERALIZED ANXIETY DISORDER 03/25/2009 ANAYELI SENIOR UI DESIGNER, DON S 300.02 GENERALIZED ANXIETY DISORDER 03/25/2009 300.02 GENERALIZED ANXIETY DISORDER 03/25/2009 300.02 GENERALIZED ANXIETY DISORDER 03/25/2009 NABILA MARSHALL, MELISSA 300.02 GENERALIZED ANXIETY DISORDER 03/25/2009 ANAYELI SENIOR UI DESIGNER, DON S 300.02 GENERALIZED ANXIETY DISORDER 03/25/2009 NEISHA NEGRONS, KACIE Fontanez 300.02 GENERALIZED ANXIETY DISORDER 03/25/2009 ANAYELI SENIOR UI DESIGNER, DON S 300.02 GENERALIZED ANXIETY DISORDER 03/25/2009 ANAYELI SENIOR UI DESIGNER, DON S 300.02 GENERALIZED ANXIETY DISORDER 03/25/2009 ANAYELI SENIOR UI DESIGNER, DON S 300.02 GENERALIZED ANXIETY DISORDER 03/25/2009 ANAYELI SENIOR UI DESIGNER, DON S 300.02 GENERALIZED ANXIETY DISORDER 03/25/2009 EDD SANCHEZ, STALIN Gordon 300.02 GENERALIZED ANXIETY DISORDER 03/25/2009 ANAYELI SENIOR UI DESIGNER, DON S 300.02 GENERALIZED ANXIETY DISORDER 05/26/2009 ANAYELI SENIOR UI DESIGNER, DON S 041.19 Staphylococcus Infection In Conditions Classified Elsewhere And Of Unspecified Site, Other Staphylococcus 05/26/2009 ANAYELI SENIOR UI DESIGNER, DON S 709.9 Dermatology - Non-infectious 05/26/2009 041.19 Staphylococcus Infection In Conditions Classified Elsewhere And Of Unspecified Site, Other Staphylococcus 05/26/2009 709.9 Dermatology - Non-infectious 05/26/2009 ANAYELI SENIOR UI DESIGNER, DON S 041.19 Staphylococcus Infection In Conditions Classified Elsewhere And Of Unspecified Site, Other Staphylococcus 05/26/2009 ANAYELI SENIOR UI DESIGNER, DON S 709.9 Dermatology - Non-infectious 05/26/2009 ANAYELI SENIOR UI DESIGNER, DON S 041.19 Staphylococcus Infection In Conditions Classified Elsewhere And Of Unspecified Site, Other Staphylococcus 05/26/2009 ANAYELI SENIOR UI DESIGNER, DON S 709.9 Dermatology - Non-infectious 05/26/2009 [...] MD 709.9 Dermatology - Non-infectious 05/26/2009 ANAYELI SENIOR UI DESIGNER, DON S 041.19 Staphylococcus Infection In Conditions Classified Elsewhere And Of Unspecified Site, Other Staphylococcus 05/26/2009 ANAYELI SENIOR UI DESIGNER, DON S 709.9 Dermatology - Non-infectious 05/26/2009 NEISHA DDSKACIE 041.19 Staphylococcus Infection In Conditions Classified Elsewhere And Of Unspecified Site, Other Staphylococcus 05/26/2009 KACIE DRIVER DDS 709.9 Dermatology - Non-infectious 05/26/2009 ANAYELI SENIOR UI DESIGNER, DON S 041.19 Staphylococcus Infection In Conditions Classified Elsewhere And Of Unspecified Site, Other Staphylococcus 05/26/2009 ANAYELI SENIOR UI DESIGNER, DON S 709.9 Dermatology - Non-infectious 05/26/2009 ANAYELI SENIOR UI DESIGNER, DON S 041.19 Staphylococcus Infection In Conditions Classified Elsewhere And Of Unspecified Site, Other Staphylococcus 05/26/2009 ANAYELI SENIOR UI DESIGNER, DON S 709.9 Dermatology - Non-infectious 05/26/2009 ANAYELI SENIOR UI DESIGNER, ODN S 041.19 Staphylococcus Infection In Conditions Classified Elsewhere And Of Unspecified Site, Other Staphylococcus 05/26/2009 ANAYELI SENIOR UI DESIGNER, DON S 709.9 Dermatology - Non-infectious 05/26/2009 ANAYELI SENIOR UI DESIGNER, DON S 041.19 Staphylococcus Infection In Conditions Classified Elsewhere And Of Unspecified Site, Other Staphylococcus 05/26/2009 ANAYELI SENIOR UI DESIGNER, DON S 709.9 Dermatology - Non-infectious 05/26/2009 STALIN PUGA DDS J 041.19 Staphylococcus Infection In Conditions Classified Elsewhere And Of Unspecified Site, Other Staphylococcus 05/26/2009 EDD SANCHEZ, STALIN J 709.9 Dermatology - Non-infectious 05/26/2009 ANAYELI SENIOR UI DESIGNER, DON S 041.19 Staphylococcus Infection In Conditions Classified Elsewhere And Of Unspecified Site, Other Staphylococcus 05/26/2009 ANAYELI SENIOR UI DESIGNER, DON S 709.9 Dermatology - Non-infectious 06/03/2009 Ot 724.1 06/03/2009 Ot V57.1 08/18/2009 ANAYELI BARON, DON S 723.1 Neck [...] BARON, DON S 723.1 Neck Pain 08/18/2009 DOMINIQUE GUADALUPE APRNNDA S 723.1 Neck Pain 08/18/2009 DOMINIQUE GUADALUPE APRNNDA S 723.1 Neck Pain 08/18/2009 STALIN PUGA DDS 723.1 Neck Pain 08/18/2009 ANAYELI BARON, DON S 723.1 Neck Pain 08/31/2009 Ot 722.4 [...] Screening Exam Malignant Neoplasm Breast 10/14/2009 ANAYELI SENIOR UI DESIGNER, DON S V07.4 taking female hormones for postmenopausal HRT 10/14/2009 ANAYELI SENIOR UI DESIGNER, DON S V16.3 Hereditary Site-specific Breast Cancer 10/14/2009 ANAYELI SENIOR UI DESIGNER, DON S V76.10 Visit For: Screening Exam Malignant Neoplasm Breast 10/14/2009 V07.4 taking female hormones for postmenopausal HRT 10/14/2009 V16.3 Hereditary Site-specific Breast Cancer 10/14/2009 V76.10 Visit For: Screening Exam Malignant Neoplasm Breast 10/14/2009 V07.4 taking female hormones for postmenopausal HRT 10/14/2009 V16.3 Hereditary Site-specific Breast Cancer 10/14/2009 V76.10 Visit For: Screening Exam Malignant Neoplasm Breast 10/14/2009 MELISSA DAHL MD V07.4 taking female hormones for postmenopausal HRT 10/14/2009 MELISSA DAHL MD V16.3 Hereditary Site-specific Breast Cancer 10/14/2009 MELISSA DAHL MD V76.10 Visit For: Screening Exam Malignant Neoplasm Breast 10/14/2009 ANAYELI SENIOR UI DESIGNER, DON S V07.4 taking female hormones for postmenopausal HRT 10/14/2009 ANAYELI PATN, DON S V16.3 Hereditary Site-specific Breast Cancer 10/14/2009 ANAYELI SENIOR UI DESIGNER, DON S V76.10 Visit For: Screening Exam Malignant Neoplasm Breast 10/14/2009 NEISHA NEGRONSKACIE V07.4 taking female hormones for postmenopausal HRT 10/14/2009 NEISHA NEGRONSKACIE V16.3 Hereditary Site-specific Breast Cancer 10/14/2009 KACIE DRIVER DDS V76.10 Visit For: Screening Exam Malignant Neoplasm Breast 10/14/2009 ANAYELI SENIOR UI DESIGNER, DON S V07.4 taking female hormones for postmenopausal HRT 10/14/2009 ANAYELI SENIOR UI DESIGNER, DON S V16.3 Hereditary Site-specific Breast Cancer 10/14/2009 ANAYELI SENIOR UI DESIGNER, DON S V76.10 Visit For: Screening Exam Malignant Neoplasm Breast 10/14/2009 ANAYELI SENIOR UI DESIGNER, DON S V07.4 taking female hormones for postmenopausal HRT 10/14/2009 ANAYELI SENIOR UI DESIGNER, DON S V16.3 Hereditary Site-specific Breast Cancer 10/14/2009 ANAYELI SENIOR UI DESIGNER, DON S V76.10 Visit For: Screening Exam Malignant Neoplasm Breast 10/14/2009 ANAYELI SENIOR UI DESIGNER, DON S V07.4 taking female hormones for postmenopausal HRT 10/14/2009 ANAYELI SENIOR UI DESIGNER, DON S V16.3 Hereditary Site-specific Breast Cancer 10/14/2009 ANAYELI SENIOR UI DESIGNER, DON S V76.10 Visit For: Screening Exam Malignant Neoplasm Breast 10/14/2009 ANAYELI SENIOR UI DESIGNER, DON S V07.4 taking female hormones for postmenopausal HRT 10/14/2009 ANAYELI SENIOR UI DESIGNER, DON S V16.3 Hereditary Site-specific Breast Cancer 10/14/2009 ANAYELI SENIOR UI DESIGNER, DON S V76.10 Visit For: Screening Exam Malignant Neoplasm Breast 10/14/2009 WHITE DDS, STALIN J V07.4 taking female hormones for postmenopausal HRT 10/14/2009 WHITE DDS, STALIN J V16.3 Hereditary Site-specific Breast Cancer 10/14/2009 WHITE DDS, STALIN J V76.10 Visit For: Screening Exam Malignant Neoplasm Breast 10/14/2009 ANAYELI SENIOR UI DESIGNER, DON S V07.4 taking female hormones for postmenopausal HRT 10/14/2009 ANAYELI SENIOR UI DESIGNER, DON S V16.3 Hereditary Site-specific Breast Cancer 10/14/2009 ANAYELI SENIOR UI DESIGNER, DON S V76.10 Visit For: Screening Exam Malignant Neoplasm Breast 10/29/2009 ANAYELI SENIOR UI DESIGNER, DON S 599.0 Urinary Tract Infection, Site Not Specified 10/29/2009 599.0 Urinary Tract Infection, Site Not Specified 10/29/2009 ANAYELI SENIOR UI DESIGNER, DON S 599.0 Urinary Tract Infection, Site Not Specified 10/29/2009 ANAYELI SENIOR UI DESIGNER, DON S 599.0 Urinary Tract Infection, Site Not Specified 10/29/2009 599.0 Urinary Tract Infection, Site Not Specified 10/29/2009 599.0 Urinary Tract Infection, Site Not Specified 10/29/2009 NABILA MARSHALL, MELISSA 599.0 Urinary Tract Infection, Site Not Specified 10/29/2009 ANAYELI PATN, DON S 599.0 Urinary Tract Infection, Site Not Specified 10/29/2009 NEISHA DDS, KACIE Fontanez 599.0 Urinary Tract Infection, Site Not Specified 10/29/2009 ANAYELI SENIOR UI DESIGNER, DON S 599.0 Urinary Tract Infection, Site Not Specified 10/29/2009 ANAYELI SENIOR UI DESIGNER, DON S 599.0 Urinary Tract Infection, Site Not Specified 10/29/2009 ANAYELI SENIOR UI DESIGNER, DON S 599.0 Urinary Tract Infection, Site Not Specified 10/29/2009 ANAYELI SENIOR UI DESIGNER, DON S 599.0 Urinary Tract Infection, Site Not Specified 10/29/2009 EDD DDS, STALIN Gordon 599.0 Urinary Tract Infection, Site Not Specified 10/29/2009 ANAYELI SENIOR UI DESIGNER, DON S 599.0 Urinary Tract Infection, Site Not Specified 11/03/2009 ANAYELI SENIOR UI DESIGNER, DON S 595.0 Cystitis Acute 11/03/2009 ANAYELI SENIOR UI DESIGNER, DON S 788.1 Dysuria 11/03/2009 595.0 Cystitis Acute 11/03/2009 788.1 Dysuria 11/03/2009 ANAYELI SENIOR UI DESIGNER, DON S 595.0 Cystitis Acute 11/03/2009 ANAYELI SENIOR UI DESIGNER, DON S 788.1 Dysuria 11/03/2009 ANAYELI SENIOR UI DESIGNER, DON S 595.0 Cystitis Acute 11/03/2009 ANAYELI SENIOR UI DESIGNER, DON S 788.1 Dysuria 11/03/2009 595.0 Cystitis Acute 11/03/2009 788.1 Dysuria 11/03/2009 595.0 Cystitis Acute 11/03/2009 788.1 Dysuria 11/03/2009 MELISSA DAHL MD 595.0 Cystitis Acute 11/03/2009 MELISSA DAHL MD 788.1 Dysuria 11/03/2009 ANAYELI SENIOR UI DESIGNER, DON S 595.0 Cystitis Acute 11/03/2009 ANAYELI SENIOR UI DESIGNER, DON S 788.1 Dysuria 11/03/2009 NEISHA DDS, KACIE M 595.0 Cystitis Acute 11/03/2009 NEISHA DDS, KACIE Fontanez 788.1 Dysuria 11/03/2009 ANAYELI SENIOR UI DESIGNER, DON S 595.0 Cystitis Acute 11/03/2009 ANAYELI SENIOR UI DESIGNER, DON S 788.1 Dysuria 11/03/2009 ANAYELI BARON, DON S 595.0 Cystitis Acute 11/03/2009 ANAYELI BARON, DON S 788.1 Dysuria 11/03/2009 ANAYELI BARON, DON S 595.0 Cystitis Acute 11/03/2009 ANAYELI BARON, DON S 788.1 Dysuria 11/03/2009 ANAYELI PATN, DON S 595.0 Cystitis Acute 11/03/2009 ANAYELI SENIOR UI DESIGNER, DON S 788.1 Dysuria 11/03/2009 WHITE DDS, STALIN J 595.0 Cystitis Acute 11/03/2009 WHITE DDS, STALIN J 788.1 Dysuria 11/03/2009 ANAYELI BARON, DON S 595.0 Cystitis Acute 11/03/2009 ANAYELI BARON, DON S 788.1 Dysuria 12/10/2009 ANAYELI BARON, DON S 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, TOBACCO USE DISORDER 12/10/2009 ANAYELI BARON, DON S V65.42 COUNSELING ON SUBSTANCE USE AND ABUSE 12/10/2009 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, TOBACCO USE DISORDER 12/10/2009 V65.42 COUNSELING ON SUBSTANCE USE AND ABUSE 12/10/2009 DOMINIQUE GUADALUPE APRNNDA S 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, TOBACCO USE DISORDER 12/10/2009 DOMINIQUE GUADALUPE APRNNDA S V65.42 COUNSELING ON SUBSTANCE USE AND ABUSE 12/10/2009 DOMINIQUE GUADALUPE APRNNDA S 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, TOBACCO USE DISORDER 12/10/2009 ANAYELI BARON DON S V65.42 COUNSELING ON SUBSTANCE USE AND [...] COUNSELING ON SUBSTANCE USE AND ABUSE 12/10/2009 KACIE DRIVER DDS 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, TOBACCO USE DISORDER 12/10/2009 KACIE DRIVER DDS V65.42 COUNSELING ON SUBSTANCE USE AND ABUSE [...] COUNSELING ON SUBSTANCE USE AND ABUSE 12/10/2009 STALIN PUGA DDS 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, TOBACCO USE DISORDER 12/10/2009 STALIN PUGA DDS V65.42 COUNSELING ON SUBSTANCE USE AND ABUSE 12/10/2009 DON GUADALUPE APRN S 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, TOBACCO USE DISORDER 12/10/2009 DON GUADALUPE APRN S V65.42 COUNSELING ON SUBSTANCE USE AND ABUSE 12/25/2009 Ot 786.50 12/25/2009 Ot 786.52 03/09/2010 DON GUADALUPE APRN S 780.8 GENERALIZED HYPERHIDROSIS 03/09/2010 ANAYELI SENIOR UI DESIGNER, DON S 786.50 Chest Pain 03/09/2010 780.8 GENERALIZED HYPERHIDROSIS 03/09/2010 786.50 Chest Pain 03/09/2010 ANAYELI SENIOR UI DESIGNER, DON S 780.8 GENERALIZED HYPERHIDROSIS 03/09/2010 ANAYELI SENIOR UI DESIGNER, DON S 786.50 Chest Pain 03/09/2010 ANAYELI SENIOR UI DESIGNER, DON S 780.8 GENERALIZED HYPERHIDROSIS 03/09/2010 ANAYELI SENIOR UI DESIGNER, DON S 786.50 Chest Pain 03/09/2010 780.8 GENERALIZED HYPERHIDROSIS 03/09/2010 786.50 Chest Pain 03/09/2010 780.8 GENERALIZED HYPERHIDROSIS 03/09/2010 786.50 Chest Pain 03/09/2010 MELISSA DAHL MD 780.8 GENERALIZED HYPERHIDROSIS 03/09/2010 MELISSA DAHL MD 786.50 Chest Pain 03/09/2010 ANAYELI SENIOR UI DESIGNER, DON S 780.8 GENERALIZED HYPERHIDROSIS 03/09/2010 ANAYELI SENIOR UI DESIGNER, DON S 786.50 Chest Pain 03/09/2010 NEISHA DDS, KACIE M 780.8 GENERALIZED HYPERHIDROSIS 03/09/2010 NEISHA DDS, KACIE M 786.50 Chest Pain 03/09/2010 ANAYELI SENIOR UI DESIGNER, DON S 780.8 GENERALIZED HYPERHIDROSIS 03/09/2010 ANAYELI SENIOR UI DESIGNER, DON S 786.50 Chest Pain 03/09/2010 ANAYELI SENIOR UI DESIGNER, DON S 780.8 GENERALIZED HYPERHIDROSIS 03/09/2010 ANAYELI SENIOR UI DESIGNER, DON S 786.50 Chest Pain 03/09/2010 ANAYELI SENIOR UI DESIGNER, DON S 780.8 GENERALIZED HYPERHIDROSIS 03/09/2010 ANAYELI SENIOR UI DESIGNER, DON S 786.50 Chest Pain 03/09/2010 ANAYELI SENIOR UI DESIGNER, DON S 780.8 GENERALIZED HYPERHIDROSIS 03/09/2010 ANAYELI SENIOR UI DESIGNER, DON S 786.50 Chest Pain 03/09/2010 WHITE DDS, STALIN J 780.8 GENERALIZED HYPERHIDROSIS 03/09/2010 WHITE DDS, STALIN J 786.50 Chest Pain 03/09/2010 DON GUADALUPE APRN 780.8 GENERALIZED HYPERHIDROSIS 03/09/2010 DON GUADALUPE APRN S 786.50 Chest Pain 03/10/2010 DON GUADALUPE [...] EXPOSURE TO POTENTIALLY HAZARDOUS BODY FLUIDS 03/17/2010 ANAYELI BARON, DON S 414.01 CAD 03/17/2010 414.01 CAD 03/17/2010 ANAYELI PATN, DON S 414.01 CAD 03/17/2010 ANAYELI SENIOR UI DESIGNER, ODN S 414.01 CAD 03/17/2010 414.01 CAD 03/17/2010 414.01 CAD 03/17/2010 MELISSA DAHL MD 414.01 CAD 03/17/2010 ANAYELI BARON, DON S 414.01 CAD 03/17/2010 KACIE DRIVER DDS 414.01 CAD 03/17/2010 ANAYELI SENIOR UI DESIGNER, DON S 414.01 CAD 03/17/2010 ANAYELI BARON, DON S 414.01 CAD 03/17/2010 ANAYELI SENIOR UI DESIGNER, DON S 414.01 CAD 03/17/2010 ANAYELI BARON, DON S 414.01 CAD 03/17/2010 STALIN PUGA DDS 414.01 CAD 03/17/2010 ANAYELI BARON, DON S 414.01 CAD 03/19/2010 Ot 300.02 03/19/2010 Ot 305.22 03/19/2010 Ot 724.5 03/19/2010 Ot 729.1 03/19/2010 Ot 786.59 03/19/2010 Ot V17.49 03/19/2010 Ot V58.69 07/20/2010 DOMINIQUE GUADALUPE APRNNDA S 847.9 Sprain/strain Back Unspec 07/20/2010 847.9 Sprain/strain Back Unspec 07/20/2010 DOMINIQUE GUADALUPE APRNNDA S 847.9 Sprain/strain Back Unspec 07/20/2010 ANAYELI BARON DON S 847.9 Sprain/strain Back Unspec 07/20/2010 847.9 Sprain/strain Back Unspec 07/20/2010 847.9 Sprain/strain Back Unspec 07/20/2010 MELISSA DAHL MD 847.9 Sprain/strain Back Unspec 07/20/2010 DOMINIQUE GUADALUPE APRNNDA S 847.9 Sprain/strain Back Unspec 07/20/2010 KACIE DRIVER DDS 847.9 Sprain/strain Back Unspec 07/20/2010 ANAYELI SENIOR UI DESIGNER, DON S 847.9 Sprain/strain Back Unspec 07/20/2010 ANAYELI SENIOR UI DESIGNER, DON S 847.9 Sprain/strain Back Unspec 07/20/2010 ANAYELI SENIOR UI DESIGNER, DON S 847.9 Sprain/strain Back Unspec 07/20/2010 ANAYELI SENIOR UI DESIGNER, DON S 847.9 Sprain/strain Back Unspec 07/20/2010 WHITE DDS, STALIN J 847.9 Sprain/strain Back Unspec 07/20/2010 ANAYELI SENIOR UI DESIGNER, DON S 847.9 Sprain/strain Back Unspec 08/06/2010 ANAYELI SENIOR UI DESIGNER, DON S 682.9 Cellulitis And Abscess Of Unspecified Sites 08/06/2010 682.9 Cellulitis And Abscess Of Unspecified Sites 08/06/2010 ANAYELI SENIOR UI DESIGNER, DON S 682.9 Cellulitis And Abscess Of Unspecified Sites 08/06/2010 ANAYELI SENIOR UI DESIGNER, DON S 682.9 Cellulitis And Abscess Of Unspecified Sites 08/06/2010 682.9 Cellulitis And Abscess Of Unspecified Sites 08/06/2010 682.9 Cellulitis And Abscess Of Unspecified Sites 08/06/2010 MELISSA DAHL MD 682.9 Cellulitis And Abscess Of Unspecified Sites 08/06/2010 ANAYELI SENIOR UI DESIGNER, DON S 682.9 Cellulitis And Abscess Of Unspecified Sites 08/06/2010 NEISHA SANCHEZ, KACIE Fontanez 682.9 Cellulitis And Abscess Of Unspecified Sites 08/06/2010 ANAYELI SENIOR UI DESIGNER, DON S 682.9 Cellulitis And Abscess Of Unspecified Sites 08/06/2010 ANAYELI SENIOR UI DESIGNER, DON S 682.9 Cellulitis And Abscess Of Unspecified Sites 08/06/2010 ANAYELI SENIOR UI DESIGNER, DON S 682.9 Cellulitis And Abscess Of Unspecified Sites 08/06/2010 ANAYELI SENIOR UI DESIGNER, DON S 682.9 Cellulitis And Abscess Of Unspecified Sites 08/06/2010 EDD NEGRONS, STALIN J 682.9 Cellulitis And Abscess Of Unspecified Sites 08/06/2010 AANYELI SENIOR UI DESIGNER, DON S 682.9 Cellulitis And Abscess Of Unspecified Sites 09/02/2010 ANAYELI SENIOR UI DESIGNER, DON S 611.71 Breast Pain 09/02/2010 ANAYELI SENIOR UI DESIGNER, DON S 787.3 Gas/bloating Pain 09/02/2010 ANAYELI SENIOR UI DESIGNER, DON S 789.03 Abdominal Pain Right Lower Quadrant 09/02/2010 611.71 Breast Pain 09/02/2010 787.3 Gas/bloating Pain 09/02/2010 789.03 Abdominal Pain Right Lower Quadrant 09/02/2010 ANAYELI SENIOR UI DESIGNER, DON S 611.71 Breast Pain 09/02/2010 ANAYELI SENIOR UI DESIGNER, DON S 787.3 Gas/bloating Pain 09/02/2010 ANAYELI SENIOR UI DESIGNER, DON S 789.03 Abdominal Pain Right Lower Quadrant 09/02/2010 ANAYELI SENIOR UI DESIGNER, DON S 611.71 Breast Pain 09/02/2010 ANAYELI BARON, DON S 787.3 Gas/bloating Pain 09/02/2010 ANAYELI [...] DON S 611.71 Breast Pain 09/02/2010 ANAYELI BARON, DON S 787.3 Gas/bloating Pain 09/02/2010 ANAYELI BARON, DON S 789.03 Abdominal Pain Right Lower Quadrant 09/02/2010 KACIE DRIVER DDS 611.71 Breast Pain 09/02/2010 NEISHA DDS, KACIE M 787.3 Gas/bloating Pain 09/02/2010 NEISHA DDS, KACIE M 789.03 Abdominal Pain Right Lower Quadrant 09/02/2010 ANAYELI SENIOR UI DESIGNER, DON S 611.71 Breast Pain 09/02/2010 ANAYELI SENIOR UI DESIGNER, DON S 787.3 Gas/bloating Pain 09/02/2010 ANAYELI SENIOR UI DESIGNER, DON S 789.03 Abdominal Pain Right Lower Quadrant 09/02/2010 ANAYELI SENIOR UI DESIGNER, DON S 611.71 Breast Pain 09/02/2010 ANAYELI SENIOR UI DESIGNER, DON S 787.3 Gas/bloating Pain 09/02/2010 ANAYELI SENIOR UI DESIGNER, DON S 789.03 Abdominal Pain Right Lower Quadrant 09/02/2010 ANAYELI SENIOR UI DESIGNER, DON S 611.71 Breast Pain 09/02/2010 ANAYELI SENIOR UI DESIGNER, DON S 787.3 Gas/bloating Pain 09/02/2010 ANAYELI PATN, DON S 789.03 Abdominal Pain Right Lower Quadrant 09/02/2010 ANAYELI SENIOR UI DESIGNER, DON S 611.71 Breast Pain 09/02/2010 ANAYELI SENIOR UI DESIGNER, DON S 787.3 Gas/bloating Pain 09/02/2010 ANAYELI SENIOR UI DESIGNER, DON S 789.03 Abdominal Pain Right Lower Quadrant 09/02/2010 WHITE DDS, STALIN J 611.71 Breast Pain 09/02/2010 WHITE DDS, STALIN J 787.3 Gas/bloating Pain 09/02/2010 WHITE DDS, STALIN J 789.03 Abdominal Pain Right Lower Quadrant 09/02/2010 ANAYELI SENIOR UI DESIGNER, DON S 611.71 Breast Pain 09/02/2010 ANAYELI SENIOR UI DESIGNER, DON S 787.3 Gas/bloating Pain 09/02/2010 ANAYELI SENIOR UI DESIGNER, DON S 789.03 Abdominal Pain Right Lower Quadrant 11/10/2010 ANAYELI SENIOR UI DESIGNER, DON S 611.72 Breast Lump Or Mass 11/10/2010 ANAYELI SENIOR UI DESIGNER, DON S 799.22 Irritibility 11/10/2010 611.72 Breast Lump Or Mass 11/10/2010 799.22 Irritibility 11/10/2010 ANAYELI SENIOR UI DESIGNER, DON S 611.72 Breast Lump Or Mass 11/10/2010 ANAYELI SENIOR UI DESIGNER, DON S 799.22 Irritibility 11/10/2010 ANAYELI SENIOR UI DESIGNER, DON S 611.72 Breast Lump Or Mass 11/10/2010 ANAYELI SENIOR UI DESIGNER, DON S 799.22 Irritibility 11/10/2010 611.72 Breast Lump Or Mass 11/10/2010 799.22 Irritibility 11/10/2010 611.72 Breast Lump Or Mass 11/10/2010 799.22 Irritibility 11/10/2010 MELISSA DAHL MD 611.72 Breast Lump Or Mass 11/10/2010 MELISSA DAHL MD 799.22 Irritibility 11/10/2010 ANAYELI SENIOR UI DESIGNER, DON S 611.72 Breast Lump Or Mass 11/10/2010 ANAYELI PATN, DON S 799.22 Irritibility 11/10/2010 NEISHA DDS, KACIE M 611.72 Breast Lump Or Mass 11/10/2010 NEISHA DDS, KACIE M 799.22 Irritibility 11/10/2010 ANAYELI SENIOR UI DESIGNER, DON S 611.72 Breast Lump Or Mass 11/10/2010 ANAYELI SENIOR UI DESIGNER, DON S 799.22 Irritibility 11/10/2010 ANAYELI SENIOR UI DESIGNER, DON S 611.72 Breast Lump Or Mass 11/10/2010 ANAYELI SENIOR UI DESIGNER, DON S 799.22 Irritibility 11/10/2010 ANAYELI SENIOR UI DESIGNER, DON S 611.72 Breast Lump Or Mass 11/10/2010 ANAYELI SENIOR UI DESIGNER, DON S 799.22 Irritibility 11/10/2010 ANAYELI SENIOR UI DESIGNER, DON S 611.72 Breast Lump Or Mass 11/10/2010 ANAYELI SENIOR UI DESIGNER, DON S 799.22 Irritibility 11/10/2010 WHITE DDS, STALIN J 611.72 Breast Lump Or Mass 11/10/2010 WHITE DDS, STALIN J 799.22 Irritibility 11/10/2010 DOMINIQUE GUADALUPE APRNNDA S 611.72 Breast Lump Or Mass 11/10/2010 DOMINIQUE GUADALUPE APRNNDA S 799.22 Irritibility 01/11/2011 Ot 300.00 01/11/2011 Ot 784.0 01/11/2011 Ot 847.0 01/11/2011 Ot 920 01/11/2011 Ot 959.09 01/11/2011 Ot E000.8 01/11/2011 Ot E849.0 01/11/2011 Ot E917.9 03/01/2011 DOMINIQUE GUADALUPE APRNNDA S 719.41 Shoulder Joint Pain 03/01/2011 DOMINIQUE GUADALUPE APRNNDA S 729.5 Arm Pain 03/01/2011 719.41 Shoulder Joint Pain 03/01/2011 729.5 Arm Pain 03/01/2011 ANAYELI BARON DON S 719.41 Shoulder Joint Pain 03/01/2011 DOMINIQUE GUADALUPE APRNNDA S 729.5 Arm Pain 03/01/2011 ANAYELI BARON DON S 719.41 Shoulder Joint Pain 03/01/2011 ANAYELI BARON DON S 729.5 Arm Pain 03/01/2011 719.41 Shoulder Joint Pain 03/01/2011 729.5 Arm Pain 03/01/2011 719.41 Shoulder Joint Pain 03/01/2011 729.5 Arm Pain 03/01/2011 MELISSA DAHL MD 719.41 Shoulder Joint Pain 03/01/2011 MELISSA DAHL MD 729.5 Arm Pain 03/01/2011 ANAYELI BARON DON S 719.41 Shoulder Joint Pain 03/01/2011 ANAYELI BARON DON S 729.5 Arm Pain 03/01/2011 KACIE DRIVER DDS 719.41 Shoulder Joint Pain 03/01/2011 KACIE DRIVER DDS 729.5 Arm Pain 03/01/2011 ANAYELI BARON DON S 719.41 Shoulder Joint Pain 03/01/2011 DOMINIQUE GUADALUPE APRNNDA S 729.5 Arm Pain 03/01/2011 ANAYELIDON LEONARDO APRN S 719.41 Shoulder Joint Pain 03/01/2011 DON GUADALUPE APRN S 729.5 Arm Pain 03/01/2011 DON GUADALUPE APRN S 719.41 Shoulder Joint Pain 03/01/2011 DON GUADALUPE APRN S 729.5 Arm Pain 03/01/2011 SAMANTHA GUADALUPE APRNA S 719.41 Shoulder Joint Pain 03/01/2011 DON GUADALUPE APRN S 729.5 Arm Pain 03/01/2011 WHITE DDS, STALIN J 719.41 Shoulder Joint Pain 03/01/2011 WHITE DDS, STALIN J 729.5 Arm Pain 03/01/2011 DON GUADALUPE APRN S 719.41 Shoulder Joint Pain 03/01/2011 DON GUADALUPE APRN S 729.5 Arm Pain 08/09/2011 DON GUADALUPE [...] APRN S 783.1 Weight Gain Abnormal 08/09/2011 DON [...] DAHL MD 783.1 Weight Gain Abnormal 08/09/2011 DOMINIQUE GUADALUPE APRNNDA S 381.81 Eustachian Tube Dysfunction 08/09/2011 DOMINIQUE GUADALUPE APRNNDA S 728.85 MUSCLE SPASM 08/09/2011 ANAYELI BARON [...] 783.1 Weight Gain Abnormal 08/09/2011 ANAYELI BARON DNO S 381.81 Eustachian Tube Dysfunction 08/09/2011 ANAYELI BARON DON S 728.85 MUSCLE SPASM 08/09/2011 ANAYELI BARON, DON S 783.1 Weight Gain Abnormal 08/09/2011 WHITE DDSSTALIN J 381.81 Eustachian Tube Dysfunction 08/09/2011 WHITE DDSSTALIN 728.85 MUSCLE SPASM 08/09/2011 STALIN PUGA DDS 783.1 Weight Gain Abnormal 08/09/2011 DOMINIQUE GUADALUPE APRNNDA S 381.81 Eustachian Tube Dysfunction 08/09/2011 DOMINIQUE GUADALUPE APRNNDA S 728.85 MUSCLE SPASM 08/09/2011 DOMINIQUE GUADALUPE APRNNDA S 783.1 Weight Gain Abnormal 11/02/2011 DOMINIQUE GUADALUPE APRNNDA S V76.2 Cervical Cancer Screening (pap Smear) 11/02/2011 V76.2 Cervical Cancer Screening (pap Smear) 11/02/2011 DOMINIQUE GUADALUPE APRNNDA S V76.2 Cervical Cancer Screening (pap Smear) 11/02/2011 DOMINIQUE GUADALUPE APRNNDA S V76.2 Cervical Cancer Screening (pap Smear) 11/02/2011 V76.2 Cervical Cancer Screening (pap Smear) 11/02/2011 V76.2 Cervical Cancer Screening (pap Smear) 11/02/2011 MELISSA DAHL MD V76.2 Cervical Cancer Screening (pap Smear) 11/02/2011 DOMINIQUE GUADALUPE APRNNDA S V76.2 Cervical Cancer Screening (pap Smear) 11/02/2011 KACIE DRIVER DDS V76.2 Cervical Cancer Screening (pap Smear) 11/02/2011 DOMINIQUE GUADALUPE APRNNDA S V76.2 Cervical Cancer Screening (pap Smear) 11/02/2011 DOMINIQUE GUADALUPE APRNNDA S V76.2 Cervical Cancer Screening (pap Smear) 11/02/2011 DOMINIQUE GUADALUPE APRNNDA S V76.2 Cervical Cancer Screening (pap Smear) 11/02/2011 DOMINIQUE GUADALUPE APRNNDA S V76.2 Cervical Cancer Screening (pap Smear) 11/02/2011 STALIN PUGA DDS V76.2 Cervical Cancer Screening (pap Smear) 11/02/2011 DOMINIQUE GUADALUPE APRNNDA S V76.2 Cervical Cancer Screening (pap Smear) 11/02/2011 Ot 916.4 INSECT BITE HIP LEG 11/02/2011 Ot 959.5 FINGER INJURY NOS 11/02/2011 Ot E000.8 OTHER EXTERNAL CAUSE STATUS 11/02/2011 Ot E849.0 ACCIDENT IN HOME 11/02/2011 Ot E906.4 NONVENOM ARTHROPOD BITE 01/18/2012 ANAYELI BARON, DON S 724.2 lower back pain 01/18/2012 724.2 lower back pain 01/18/2012 ANAYELI BARON, DON S 724.2 lower back pain 01/18/2012 ANAYELI BARON, DON S 724.2 lower back pain 01/18/2012 724.2 lower back pain 01/18/2012 724.2 lower back pain 01/18/2012 MELISSA DAHL MD 724.2 lower back pain 01/18/2012 ANAYELI BARON, DON S 724.2 lower back pain 01/18/2012 KACIE DRIVER DDS 724.2 lower back pain 01/18/2012 ANAYELI BARON, DON S 724.2 lower back pain 01/18/2012 ANAYELI BARON, DON S 724.2 lower back pain 01/18/2012 ANAYELI BARON, DON S 724.2 lower back pain 01/18/2012 ANAYELI BARON, DON S 724.2 lower back pain 01/18/2012 STALIN PUGA DDS 724.2 lower back pain 01/18/2012 ANAYELI BARON, DON S 724.2 lower back pain 02/01/2012 ANAYELI BARON DON S V58.69 high risk medication 02/01/2012 V58.69 high risk medication 02/01/2012 ANAYELI BARON DON S V58.69 high risk medication 02/01/2012 ANAYELI BARON DON S V58.69 high risk medication 02/01/2012 V58.69 high risk medication 02/01/2012 V58.69 high risk medication 02/01/2012 MELISSA DAHL MD V58.69 high risk medication 02/01/2012 DOMINIQUE GUADALUPE APRNNDA S V58.69 high risk medication 02/01/2012 KACIE DRIVER DDS V58.69 high risk medication 02/01/2012 ANAYELI BARON, DON S V58.69 high risk medication 02/01/2012 DOMINIQUE GUADALUPE APRNNDA S V58.69 high risk medication 02/01/2012 DON GUADALUPE APRN S V58.69 high risk medication 02/01/2012 DON GUADALUPE APRN S V58.69 high risk medication 02/01/2012 WHITE DDS, STALIN J V58.69 high risk medication 02/01/2012 DON GUADALUPE APRN S V58.69 high risk medication 05/28/2012 DON GUADALUPE APRN S 296.30 MAJOR DEPRESSIVE AFFECTIVE DISORDER RECURRENT EPISODE UNSPECIFIED DEGREE 05/28/2012 DON GUADALUPE APRN S V04.81 Flu Dx (3 Yrs And [...] EPISODE UNSPECIFIED DEGREE 05/28/2012 DON GUADALUPE APRN S V04.81 Flu Dx (3 Yrs And Above, Im) 05/28/2012 DON GUADALUPE APRN S V18.0 FAMILY HISTORY OF DIABETES MELLITUS 05/28/2012 DON GUADALUPE APRN S 296.30 MAJOR DEPRESSIVE AFFECTIVE DISORDER RECURRENT EPISODE UNSPECIFIED DEGREE 05/28/2012 DON GUADALUPE APRN S V04.81 Flu Dx (3 Yrs And [...] V18.0 FAMILY HISTORY OF DIABETES MELLITUS 05/28/2012 SAMANTHA GUADALUPE APRNA S 296.30 MAJOR DEPRESSIVE AFFECTIVE DISORDER RECURRENT EPISODE UNSPECIFIED DEGREE 05/28/2012 SAMANTHA GUADALUPE APRNA S V04.81 Flu Dx (3 Yrs And Above, Im) 05/28/2012 SAMANTHA GUADALUPE APRNA S V18.0 FAMILY HISTORY OF DIABETES MELLITUS 05/28/2012 NEISHA DDS, KACIE M 296.30 MAJOR DEPRESSIVE AFFECTIVE DISORDER RECURRENT EPISODE UNSPECIFIED DEGREE 05/28/2012 NEISHA DDS, KACIE M V04.81 Flu Dx (3 Yrs And Above, Im) 05/28/2012 NEISHA DDS, KACIE M V18.0 FAMILY HISTORY OF DIABETES MELLITUS 05/28/2012 DOMINIQUE GUADALUPE APRNNDA S 296.30 MAJOR DEPRESSIVE AFFECTIVE DISORDER RECURRENT EPISODE UNSPECIFIED DEGREE 05/28/2012 SAMANTHA GUADALUPE APRNA S V04.81 Flu Dx (3 Yrs And [...] (3 Yrs And Above, Im) 05/28/2012 ANAYELI SENIOR UI DESIGNER, DON S V18.0 FAMILY HISTORY OF DIABETES MELLITUS 05/28/2012 WHITE DDS, STALIN J 296.30 MAJOR DEPRESSIVE AFFECTIVE DISORDER RECURRENT EPISODE UNSPECIFIED DEGREE 05/28/2012 WHITE DDS, STALIN J V04.81 Flu Dx (3 Yrs And Above, Im) 05/28/2012 WHITE DDS, STALIN J V18.0 FAMILY HISTORY OF DIABETES MELLITUS 05/28/2012 ANAYELI SENIOR UI DESIGNER, DON S 296.30 MAJOR DEPRESSIVE AFFECTIVE DISORDER RECURRENT EPISODE UNSPECIFIED DEGREE 05/28/2012 ANAYELI SENIOR UI DESIGNER, DON S V04.81 Flu Dx (3 Yrs And Above, Im) 05/28/2012 ANAYELI SENIOR UI DESIGNER, DON S V18.0 FAMILY HISTORY OF DIABETES MELLITUS 06/05/2012 ANAYELI SENIOR UI DESIGNER, DON S 999.52 Other Serum Reaction Due To Vaccination 06/05/2012 999.52 Other Serum Reaction Due To Vaccination 06/05/2012 ANAYELI SENIOR UI DESIGNER, DON S 999.52 Other Serum Reaction Due To Vaccination 06/05/2012 ANAYELI SENIOR UI DESIGNER, DON S 999.52 Other Serum Reaction Due To Vaccination 06/05/2012 999.52 Other Serum Reaction Due To Vaccination 06/05/2012 999.52 Other Serum Reaction Due To Vaccination 06/05/2012 MELISSA DAHL MD 999.52 Other Serum Reaction Due To Vaccination 06/05/2012 ANAYELI SENIOR UI DESIGNER, DON S 999.52 Other Serum Reaction Due To Vaccination 06/05/2012 NEISHA NEGRONS, KACIE Fontanez 999.52 Other Serum Reaction Due To Vaccination 06/05/2012 ANAYELI SENIOR UI DESIGNER, DON S 999.52 Other Serum Reaction Due To Vaccination 06/05/2012 ANAYELI SENIOR UI DESIGNER, DON S 999.52 Other Serum Reaction Due To Vaccination 06/05/2012 ANAYELI SENIOR UI DESIGNER, DON S 999.52 Other Serum Reaction Due To Vaccination 06/05/2012 ANAYELI SENIOR UI DESIGNER, DON S 999.52 Other Serum Reaction Due To Vaccination 06/05/2012 WHITE DDS, STALIN J 999.52 Other Serum Reaction Due To Vaccination 06/05/2012 ANAYELI SENIOR UI DESIGNER, DON S 999.52 Other Serum Reaction Due To Vaccination 06/27/2012 ANAYELI SENIOR UI DESIGNER, DON S 719.47 PAIN IN JOINT INVOLVING ANKLE AND FOOT 06/27/2012 719.47 PAIN IN JOINT INVOLVING ANKLE AND FOOT 06/27/2012 ANAYELI PATN, DON S 719.47 PAIN IN JOINT INVOLVING ANKLE AND FOOT 06/27/2012 ANAYELI SENIOR UI DESIGNER, DON S 719.47 PAIN IN JOINT INVOLVING [...] JOINT INVOLVING ANKLE AND FOOT 06/27/2012 ANAYELI SENIOR UI DESIGNER, DON S 719.47 PAIN IN JOINT INVOLVING ANKLE AND FOOT 06/27/2012 STALIN PUGA DDS 719.47 PAIN IN JOINT INVOLVING ANKLE AND FOOT 06/27/2012 ANAYELI PATN, DON S 719.47 PAIN IN JOINT INVOLVING ANKLE AND FOOT 07/25/2012 ANAYELI PATN, DON S 729.5 PAIN IN LIMB 07/25/2012 729.5 PAIN IN LIMB 07/25/2012 ANAYELI PATN, DON S 729.5 PAIN IN LIMB 07/25/2012 ANAYELI SENIOR UI DESIGNER, DON S 729.5 PAIN IN LIMB 07/25/2012 729.5 PAIN IN LIMB 07/25/2012 729.5 PAIN IN LIMB 07/25/2012 MELISSA DAHL MD 729.5 PAIN IN LIMB 07/25/2012 ANAYELI PATN, DON S 729.5 PAIN IN LIMB 07/25/2012 KACIE DRIVER DDS 729.5 PAIN IN LIMB 07/25/2012 ANAYELI SENIOR UI DESIGNER, DON S 729.5 PAIN IN LIMB 07/25/2012 ANAYELI SENIOR UI DESIGNER, DON S 729.5 PAIN IN LIMB 07/25/2012 ANAYELI SENIOR UI DESIGNER, DON S 729.5 PAIN IN LIMB 07/25/2012 ANAYELI SENIOR UI DESIGNER, DON S 729.5 PAIN IN LIMB 07/25/2012 EDD SANCHEZ, STALIN J 729.5 PAIN IN LIMB 09/17/2012 783.1 ABNORMAL WEIGHT GAIN 09/17/2012 ANAYELI SENIOR UI DESIGNER, DON S 783.1 ABNORMAL WEIGHT GAIN 09/17/2012 ANAYELI SENIOR UI DESIGNER, DON S 783.1 ABNORMAL WEIGHT GAIN 09/17/2012 783.1 ABNORMAL WEIGHT GAIN 09/17/2012 783.1 ABNORMAL WEIGHT GAIN 09/17/2012 MELISSA DAHL MD 783.1 ABNORMAL WEIGHT GAIN 09/17/2012 ANAYELI BARON, DON S 783.1 ABNORMAL WEIGHT GAIN 09/17/2012 KACIE DRIVER DDS 783.1 ABNORMAL WEIGHT GAIN 09/17/2012 ANAYELI SENIOR UI DESIGNER, DON S 783.1 ABNORMAL WEIGHT GAIN 09/17/2012 ANAYELI SENIOR UI DESIGNER, DON S 783.1 ABNORMAL WEIGHT GAIN 09/17/2012 ANAYELI SENIOR UI DESIGNER, DON S 783.1 ABNORMAL WEIGHT GAIN 09/17/2012 ANAYELI SENIOR UI DESIGNER, DON S 783.1 ABNORMAL WEIGHT GAIN 09/17/2012 STALIN PUGA DDS 783.1 ABNORMAL WEIGHT GAIN 10/30/2012 ANAYELI BARON, [...] V16.3 FAM HX CANCER, BREAST 10/30/2012 ANAYELI SENIOR UI DESIGNER, DON S V16.3 FAM HX CANCER, BREAST 10/30/2012 DOMINIQUE GUADALUPE APRNNDA S V16.3 FAM HX CANCER, BREAST 10/30/2012 DOMINIQUE GUADALUPE APRNNDA S V16.3 FAM HX CANCER, BREAST 10/30/2012 [...] W/O PSYCHOTIC BEHAVIOR 02/19/2013 KACIE DRIVER DDS M 309.0 ADJUSTMENT DISORDER WITH DEPRESSED MOOD 02/19/2013 [...] 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 02/19/2013 EDD NEGRONS, STALIN J 309.0 ADJUSTMENT DISORDER WITH DEPRESSED MOOD 02/22/2013 599.70 HEMATURIA 02/22/2013 724.4 THORACIC OR LUMBOSACRAL NEURITIS OR RADICULITIS UNSPECIFIED 02/22/2013 599.70 HEMATURIA 02/22/2013 724.4 THORACIC OR LUMBOSACRAL NEURITIS OR RADICULITIS UNSPECIFIED 02/22/2013 MELISSA DAHL MD 599.70 HEMATURIA 02/22/2013 MELISSA DAHL MD 724.4 THORACIC OR LUMBOSACRAL NEURITIS OR RADICULITIS UNSPECIFIED 02/22/2013 ANAYELI SENIOR UI DESIGNER, DON S 599.70 HEMATURIA 02/22/2013 ANAYELI SENIOR UI DESIGNER, DON S 724.4 THORACIC OR LUMBOSACRAL NEURITIS OR RADICULITIS UNSPECIFIED 02/22/2013 KACIE DRIVER DDS 599.70 HEMATURIA 02/22/2013 NEISHA SANCHEZ, KACIE Fontanez 724.4 THORACIC OR LUMBOSACRAL NEURITIS OR RADICULITIS UNSPECIFIED 02/22/2013 ANAYELI SENIOR UI DESIGNER, DON S 599.70 HEMATURIA 02/22/2013 ANAYELI SENIOR UI DESIGNER, DON S 724.4 THORACIC OR LUMBOSACRAL NEURITIS OR RADICULITIS UNSPECIFIED 02/22/2013 ANAYELI SENIOR UI DESIGNER, DON S 599.70 HEMATURIA 02/22/2013 ANAYELI SENIOR UI DESIGNER, DON S 724.4 THORACIC OR LUMBOSACRAL NEURITIS OR RADICULITIS UNSPECIFIED 02/22/2013 ANAYELI SENIOR UI DESIGNER, DON S 599.70 HEMATURIA 02/22/2013 ANAYELI SENIOR UI DESIGNER, DON S 724.4 THORACIC OR LUMBOSACRAL NEURITIS OR RADICULITIS UNSPECIFIED 02/22/2013 ANAYELI SENIOR UI DESIGNER, DON S 599.70 HEMATURIA 02/22/2013 ANAYELI SENIOR UI DESIGNER, DON S 724.4 THORACIC OR LUMBOSACRAL NEURITIS OR RADICULITIS UNSPECIFIED 02/22/2013 EDD NEGRONS, STALIN Gordon 599.70 HEMATURIA 02/22/2013 EDD NEGRONSSTALIN 724.4 THORACIC OR LUMBOSACRAL NEURITIS OR RADICULITIS UNSPECIFIED 04/01/2013 NERIS BOSS SENIOR UI DESIGNER Ot 338.29 OTHER CHRONIC PAIN 04/01/2013 NERIS BOSS SENIOR UI DESIGNER Ot 724.5 BACKACHE NOS 04/03/2013 724.5 BACKACHE UNSPECIFIED 04/03/2013 MELISSA DAHL MD 724.5 BACKACHE UNSPECIFIED 04/03/2013 ANAYELI BARON, DON S 724.5 BACKACHE UNSPECIFIED 04/03/2013 KACIE DRIVER DDS 724.5 BACKACHE UNSPECIFIED 04/03/2013 ANAYELI SENIOR UI DESIGNER, DON S 724.5 BACKACHE UNSPECIFIED 04/03/2013 ANAYELI SENIOR UI DESIGNER, DON S 724.5 BACKACHE UNSPECIFIED 04/03/2013 ANAYELI SENIOR UI DESIGNER, DON S 724.5 BACKACHE UNSPECIFIED 04/03/2013 ANAYELI BARON, DON S 724.5 BACKACHE UNSPECIFIED 04/03/2013 STALIN PUGA DDS 724.5 BACKACHE UNSPECIFIED 06/18/2013 DON GUADALUPE 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 Ot 724.4 LUMBOSACRAL NEURITIS NOS 06/18/2013 DON GUADALUPE 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 Ot V57.1 PHYSICAL THERAPY NEC 09/18/2013 ANAYELI BARON, DON S 272.4 HYPERLIPIDEMIA 09/18/2013 ANAYELI BARON, DON S 719.41 PAIN- SHOULDER 09/18/2013 ANAYELI BARON, DON S 780.79 fatigue 09/18/2013 ANAYELI BARON, DON S 784.0 HEADACHE 09/18/2013 ANAYELI PATN, DON S 787.91 DIARRHEA 09/18/2013 ANAYELI SENIOR UI DESIGNER, DON S 272.4 HYPERLIPIDEMIA 09/18/2013 ANAYELI SENIOR UI DESIGNER, DON S 719.41 PAIN- SHOULDER 09/18/2013 ANAYELI BARON, DON S 780.79 fatigue 09/18/2013 ANAYELI SENIOR UI DESIGNER, DON S 784.0 HEADACHE 09/18/2013 ANAYELI SENIOR UI DESIGNER, DON S 787.91 DIARRHEA 09/18/2013 ANAYELI BARON, DON S 272.4 HYPERLIPIDEMIA 09/18/2013 ANAYELI BARON DON S 719.41 PAIN- SHOULDER 09/18/2013 DOMINIQUE GUADALUPE APRNNDA S 780.79 fatigue 09/18/2013 ANAYELI BARON, DON S 784.0 HEADACHE 09/18/2013 ANAYELI BARON, DON S 787.91 DIARRHEA 09/18/2013 ANAYELI BARON, DON S 272.4 HYPERLIPIDEMIA 09/18/2013 ANAYELI BARON DON S 719.41 PAIN- SHOULDER 09/18/2013 ANAYELI BARON, DON S 780.79 fatigue 09/18/2013 ANAYELI BARON, DON S 784.0 HEADACHE 09/18/2013 ANAYELI BARON, DON [...] STOVER MD Ot 784.0 HEADACHE 03/26/2014 RK MARQUEZ MD Ot V57.1 PHYSICAL THERAPY NEC 03/26/2014 RK MARQUEZ MD Ot V58.78 AFTERCARE POST SURGERY MUSCULOSKELETAL S 03/31/2014 RK MARQUEZ MD Ot 724.9 BACK DISORDER NOS 03/31/2014 RK MARQUEZ MD Ot V57.1 PHYSICAL THERAPY NEC 06/26/2014 [...] 09/01/2014 SUHAS WILLETT MD Ot 784.0 09/01/2014 CINDY DEY MD Ot 278.00 09/01/2014 CINDY DEY MD Ot 305.1 09/01/2014 CINDY DEY MD Ot 780.79 09/01/2014 CINDY DEY MD Ot [...] 09/02/2014 CINDY DEY MD Ot 305.1 09/02/2014 YISSEL MARSHALL, CINDY Gordon Ot 780.79 09/02/2014 YISSEL MARSHALL, CINDY Gordon Ot 786.50 09/11/2014 YISSEL MARSHALL, CINDY Gordon Ot 278.00 09/11/2014 YISSEL MARSHALL, CINDY Gordon Ot 305.1 09/11/2014 YISSEL MARSHALL, CINDY Gordon Ot 780.79 09/11/2014 YISSEL MARSHALL, CINDY Gordon Ot 786.50 09/17/2014 YISSEL MARSHALL, CINDY Gordon Ot 278.00 09/17/2014 YISSEL MARSHALL, CINDY Gordon Ot 305.1 09/17/2014 YISSEL MARSHALL, CINDY Gordon Ot 780.79 09/17/2014 YISSEL MARSHALL, CINDY Gordon Ot 786.50 09/30/2014 YISSEL MARSHALL, CINDY Gordon Ot 278.00 09/30/2014 YISSEL MARSHALL, CINDY Gordon Ot 305.1 09/30/2014 YISSEL MARSHALL, CINDY Gordon Ot 780.79 09/30/2014 CINDY DEY MD Ot [...] 03/03/2015 SUHAS WILLETT MD Ot 784.0 03/03/2015 YISSEL MARSHALL, CINDY Gordon Ot 278.00 [...] Gordon Ot 780.79 03/03/2015 YISSEL MARSHALL, CINDY Gordno Ot 786.50 03/04/2015 EMMY GREEN DO Ot 592.1 CALCULUS OF URETER 03/04/2015 EMMY GREEN DO Ot 599.70 HEMATURIA, UNSPECIFIED 04/06/2015 KALPANA JACINTO MD Ot 592.9 04/14/2015 FIGUEROA ESQUEDA MD Ot 724.2 04/14/2015 KALPANA JACINTO MD Ot [...] 08/17/2015 Ot 724.2 08/17/2015 Ot V45.4 08/17/2015 DON GUADALUPE Ot V76.12 08/17/2015 SUHAS WILLETT MD Ot 788.1 08/17/2015 DAVID MARSHALL, SUHAS Lorenz Ot 788.41 08/17/2015 SUHAS WILLETT MD Ot 784.0 08/17/2015 YISSEL MARSHALL, CINDY J Ot 278.00 08/17/2015 YISSEL MARSHALL, CINDY J Ot 305.1 08/17/2015 YISSEL MARSHALL, BASHAR [...] YISSEL MARSHALL, BASHAR J Ot 786.50 08/17/2015 DHEERAJ MARSHALL, FIGUEROA Craig Ot 724.2 08/17/2015 OPHELIA MARSHALL, KALPANA Nassar Ot 592.9 08/17/2015 OPHELIA MARSHALL, KALPANA Nassar Ot 592.0 08/17/2015 Ot S60.456A 08/17/2015 Ot Z12.31 09/02/2015 JERO DAMON Ot E78.2 09/29/2015 WING HUNTER DO Ot 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 09/29/2015 WING HUNTER DO Ot 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.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 (POST 09/29/2015 WING HUNTER DO Ot R10.2 PELVIC AND PERINEAL PAIN 10/13/2015 WING HUNTER DO Ot N94.9 10/13/2015 WING HUNTER DO Ot R10.11 10/13/2015 WING HUNTER DO C Ot D07.1 10/13/2015 HUNTER DO, WING C Ot R10.2 10/13/2015 HUNTER DO, WING C Ot Z01.812 10/13/2015 HUNTER DO, WING C Ot Z11.2 10/30/2015 HUNTER DO, WING C Ot D07.1 10/30/2015 HUNTER DO, WING C Ot N73.6 10/30/2015 HUNTER DO, WING C Ot R10.2 11/13/2015 DAVID MARSHALL, SUHAS Lorenz Ot R00.2 11/13/2015 DAVID MARSHALL, SUHAS Lorenz Ot R35.8 11/13/2015 SUHAS WILLETT MD Ot [...] SPRAIN OF UNSPECIFIED LIGAMENT OF RIGHT 01/13/2016 SUHAS WILLETT MD Ot X58.XXXA EXPOSURE TO OTHER SPECIFIED FACTORS, INI 01/13/2016 SUHAS WILLETT MD Ot Y99.8 OTHER EXTERNAL CAUSE STATUS 01/20/2016 JERO DAMON Ot E78.2 MIXED HYPERLIPIDEMIA 01/21/2016 SUHAS WILLETT [...] R06.89 OTHER ABNORMALITIES OF BREATHING 02/04/2016 CINDY DEY MD Ot R07.9 CHEST PAIN, [...] MD Ot 786.50 CHEST PAIN NOS 07/15/2016 DHEERAJ MARSHALL, FIGUEROA Craig Ot 724.2 LUMBAGO 07/15/2016 KALPANA JACINTO MD Ot 592.9 URINARY CALCULUS NOS 07/15/2016 KALPANA JACINTO MD Ot 592.0 CALCULUS OF KIDNEY 07/15/2016 Ot S60.456A SUPERFICIAL FOREIGN BODY OF RIGHT LITTLE 07/15/2016 Ot Z12.31 ENCNTR SCREEN MAMMOGRAM FOR MALIGNANT NE 07/15/2016 JERO DAMON Ot E78.2 MIXED HYPERLIPIDEMIA 07/15/2016 HUNTERWING Diaz DO Ot N94.9 UNSP COND 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 07/15/2016 DALE PEREZWING Ot R10.11 RIGHT UPPER QUADRANT PAIN 07/15/2016 DALE PEREZWING Ot 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 07/15/2016 DALE PEREZWING Ot R10.2 PELVIC AND PERINEAL PAIN 07/15/2016 DALE PEREZWING Ot Z01.812 ENCOUNTER FOR PREPROCEDURAL LABORATORY E 07/15/2016 DALE PEREZWING Ot Z11.2 ENCOUNTER FOR SCREENING FOR OTHER [...] Ot R10.11 RIGHT UPPER QUADRANT PAIN 07/17/2016 MAYELIN ARAGON Ot S63.92XA SPRAIN OF UNSP [...] MD Ot 786.50 CHEST PAIN NOS 01/18/2017 FIGUEROA ESQUEDA MD Ot 724.2 LUMBAGO 01/18/2017 OPHELIA MARSHALL, KALPANA [...] DO Ot F41.9 ANXIETY DISORDER, UNSPECIFIED 01/18/2017 DELMAN DO, ROSALIE B Ot K21.9 GASTRO-ESOPHAGEAL REFLUX DISEASE WITHOUT 01/18/2017 NATANPATTI DO ROSALIE B Ot K29.70 GASTRITIS, UNSPECIFIED, WITHOUT BLEEDING 01/18/2017 ACE PEREZ ROSALIE B Ot K29.80 DUODENITIS WITHOUT BLEEDING 01/18/2017 NATANPATTI PEREZ ROSALIE B Ot K57.3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 01/18/2017 ROSALIE BELLO DO B Ot K63.5 POLYP OF COLON 01/18/2017 DARION BELLO DOIC B Ot K64.8 OTHER HEMORRHOIDS 01/18/2017 ACE PEREZ ROSALIE B Ot Z68.29 BODY MASS INDEX (BMI) 29.0-29.9, ADULT 01/18/2017 DARION BELLO DOIC B Ot Z79.899 OTHER CARE HOME (CURRENT) DRUG THERAPY 01/20/2017 DARION BELLO DOIC B Ot E66.9 OBESITY, UNSPECIFIED 01/20/2017 ROSALIE BELLO DO B Ot E78.5 HYPERLIPIDEMIA, UNSPECIFIED 01/20/2017 DARION BELLO DOIC B Ot F17.210 NICOTINE DEPENDENCE, CIGARETTES, UNCOMPL 01/20/2017 ACE PEREZ ROSALIE B Ot K21.9 GASTRO-ESOPHAGEAL REFLUX DISEASE WITHOUT 01/20/2017 ACE PEREZ ROSALIE B Ot K29.70 GASTRITIS, UNSPECIFIED, WITHOUT BLEEDING 01/20/2017 ACE PEREZ ROSALIE B Ot K29.80 DUODENITIS WITHOUT BLEEDING 01/20/2017 ACE PEREZ ROSALIE B Ot K57.3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 01/20/2017 ROSALIE BELLO DO B Ot K63.5 POLYP OF COLON 01/20/2017 DARION BELLO DOIC B Ot K64.8 OTHER HEMORRHOIDS 01/20/2017 DARION BELLO DOIC B Ot Z68.29 BODY MASS INDEX (BMI) 29.0-29.9, ADULT 01/20/2017 DARION BELLO DOIC B Ot Z79.899 OTHER CARE HOME (CURRENT) DRUG THERAPY 04/14/2017 Ot 272.0 PURE [...] MD Ot 786.50 CHEST PAIN NOS 04/14/2017 DHEERAJ MARSHALL, FIGUEROA Craig Ot 724.2 LUMBAGO 04/14/2017 KALPANA JACINTO MD Ot 592.9 URINARY CALCULUS NOS 04/14/2017 KALPANA JACINTO MD Ot 592.0 CALCULUS OF KIDNEY 04/14/2017 Ot S60.456A SUPERFICIAL FOREIGN BODY OF RIGHT LITTLE 04/14/2017 Ot Z12.31 ENCNTR SCREEN MAMMOGRAM FOR MALIGNANT NE 04/14/2017 CAGEJERO BEGUM Ot E78.2 MIXED HYPERLIPIDEMIA 04/14/2017 HUNTERWING Diaz DO Ot N94.9 UNSP COND 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 04/14/2017 HUNTERWING Diaz DO Ot R10.11 RIGHT UPPER QUADRANT PAIN 04/14/2017 DALE PEREZWING Ot 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 04/14/2017 HUNTER WING Ot R10.2 PELVIC AND PERINEAL PAIN 04/14/2017 HUNTERWING Diaz DO Ot Z01.812 ENCOUNTER FOR PREPROCEDURAL LABORATORY E 04/14/2017 HUNTERWING Diaz DO Ot Z11.2 ENCOUNTER FOR SCREENING FOR [...] SPRAIN OF UNSPECIFIED LIGAMENT OF RIGHT 04/14/2017 SHUAS WILLETT MD Ot X58.XXXA EXPOSURE TO OTHER [...] ENCNTR SCREEN MAMMOGRAM FOR MALIGNANT NE 04/14/2017 DAVID MARSHALL, SUHAS Lorenz Ot R10.31 RIGHT LOWER QUADRANT PAIN 04/20/2017 COLTHARP DO, GEORGIANA A Ot R06.02 SHORTNESS OF BREATH 04/25/2017 COLTHARP DO, GEORGIANA A Ot R06.02 SHORTNESS OF BREATH 06/10/2017 [...] HEART DIS AND OTH DI 08/01/2017 MAU HOFFMANN MD Ot Z87.19 PERSONAL HISTORY OF OTHER DISEASES OF 08/01/2017 MAU HOFFMANN MD Ot Z87.891 PERSONAL HISTORY OF NICOTINE DEPENDENCE 08/01/2017 MAU HOFFMANN MD Ot Z90.49 ACQUIRED ABSENCE OF OTHER SPECIFIED PART 08/01/2017 TAHIRA MARSHALL, MAU Kelechi Ot Z90.710 ACQUIRED ABSENCE OF BOTH CERVIX AND UTER 11/24/2017 KEELY GARG Ot N63.23 UNSPECIFIED LUMP IN THE LEFT BREAST, LOW 11/24/2017 KEELY GARG Ot Z13.820 ENCOUNTER FOR SCREENING FOR OSTEOPOROSIS 12/01/2017 RK MARQUEZ MD Ot S13.4XXD SPRAIN OF LIGAMENTS OF CERVICAL SPINE, S 12/01/2017 RK MARQUEZ MD Ot X50.9XXD OTHER AND UNSPECIFIED OVREXRTN OR STRNOU 12/04/2017 RK MARQUEZ MD Ot S13.4XXD SPRAIN OF LIGAMENTS OF CERVICAL SPINE, S 12/04/2017 RK MARQUEZ MD Ot X50.9XXD OTHER AND UNSPECIFIED OVREXRTN OR STRNOU 12/07/2017 KEELY GARG Ot N63.23 UNSPECIFIED LUMP IN THE LEFT BREAST, LOW 12/07/2017 KEELY GARG Ot Z13.820 ENCOUNTER FOR SCREENING FOR OSTEOPOROSIS 12/25/2017 RK MARQUEZ MD Ot S13.4XXD SPRAIN OF LIGAMENTS OF CERVICAL SPINE, S 12/25/2017 RK MARQUEZ MD Ot X50.9XXD OTHER AND UNSPECIFIED OVREXRTN OR STRNOU 04/23/2018 NERIS BOSS APRN Ot E78.00 PURE HYPERCHOLESTEROLEMIA, UNSPECIFIED 04/23/2018 NERIS BOSS APRN Ot F12.10 CANNABIS ABUSE, UNCOMPLICATED 04/23/2018 NERIS BOSS APRN Ot F17.210 NICOTINE DEPENDENCE, CIGARETTES, UNCOMPL 04/23/2018 NERIS BOSS APRN Ot F31.9 BIPOLAR DISORDER, UNSPECIFIED 04/23/2018 NERIS BOSS APRN Ot F41.9 ANXIETY DISORDER, UNSPECIFIED 04/23/2018 NERIS BOSS APRN Ot G43.909 MIGRAINE, UNSP, NOT INTRACTABLE, WITHOUT 04/23/2018 NERIS BOSS APRN Ot K21.9 GASTRO-ESOPHAGEAL REFLUX DISEASE WITHOUT 04/23/2018 NERIS BOSS APRN Ot M24.812 OTH SPECIFIC JOINT DERANGEMENTS OF LEFT 04/23/2018 NERIS BOSS APRN Ot M25.512 PAIN IN LEFT SHOULDER 04/23/2018 NERIS BOSS APRN Ot W19.XXXA UNSPECIFIED FALL, INITIAL ENCOUNTER 04/23/2018 NERIS BOSS APRN Ot Y92.[address] OF OCCURRENCE O 04/23/2018 NERIS BOSS APRN Ot Z79.51 IT BUSINESS PROCESS ARCHITECT (CURRENT) USE OF INHALED STERO 04/23/2018 NERIS BOSS APRN Ot Z79.52 CARE HOME (CURRENT) USE OF SYSTEMIC STER 04/23/2018 NERIS BOSS APRN Ot Z80.3 FAMILY HISTORY OF MALIGNANT NEOPLASM OF 04/23/2018 NERIS BOSS APRN Ot Z82.49 FAMILY HX OF ISCHEM HEART DIS AND OTH DI 04/23/2018 NERIS BOSS APRN Ot Z86.19 PERSONAL HISTORY OF OTHER INFECTIOUS AND 04/23/2018 NERIS BSOS APRN Ot Z87.19 PERSONAL HISTORY OF OTHER DISEASES OF TH 04/23/2018 NERIS BOSS APRN Ot Z88.8 ALLERGY STATUS TO OT DRUG/MEDS/BIOL SUB 04/23/2018 NERIS BOSS APRN Ot Z90.710 ACQUIRED ABSENCE OF BOTH CERVIX AND UTER 04/23/2018 NERIS BOSS APRN Ot Z90.89 ACQUIRED ABSENCE OF OTHER ORGANS 04/25/2018 NERIS BOSS APRN Ot E78.00 PURE HYPERCHOLESTEROLEMIA, UNSPECIFIED 04/25/2018 NERIS BOSS APRN Ot F12.10 CANNABIS ABUSE, UNCOMPLICATED 04/25/2018 NERIS BOSS APRN Ot F17.210 NICOTINE DEPENDENCE, CIGARETTES, UNCOMPL 04/25/2018 NERIS BOSS APRN Ot F31.9 BIPOLAR DISORDER, UNSPECIFIED 04/25/2018 NERSI BOSS APRN Ot F41.9 ANXIETY DISORDER, UNSPECIFIED 04/25/2018 NERIS BOSS APRN Ot G43.909 MIGRAINE, UNSP, NOT INTRACTABLE, WITHOUT 04/25/2018 NERIS BOSS APRN Ot K21.9 GASTRO-ESOPHAGEAL REFLUX DISEASE WITHOUT 04/25/2018 NERIS BOSS APRN Ot M24.812 OT SPECIFIC JOINT DERANGEMENTS OF LEFT 04/25/2018 NERIS BOSS APRN Ot M25.512 PAIN IN LEFT SHOULDER 04/25/2018 NERIS BOSS APRN Ot W19.XXXA UNSPECIFIED FALL, INITIAL ENCOUNTER 04/25/2018 NERIS BOSS APRN Ot Y92.[address] OF OCCURRENCE O 04/25/2018 NERIS BOSS APRN Ot Z79.51 IT BUSINESS PROCESS ARCHITECT (CURRENT) USE OF INHALED STERO 04/25/2018 NERIS BOSS APRN Ot Z79.52 IT BUSINESS PROCESS ARCHITECT (CURRENT) USE OF SYSTEMIC STER 04/25/2018 NERIS BOSS APRN Ot Z80.3 FAMILY HISTORY OF MALIGNANT NEOPLASM OF 04/25/2018 NERIS BOSS APRN Ot Z82.49 FAMILY HX OF ISCHEM HEART DIS AND OTH DI 04/25/2018 NERIS BOSS APRN Ot Z86.19 PERSONAL HISTORY OF OTHER INFECTIOUS AND 04/25/2018 NERIS BOSS APRN Ot Z87.19 PERSONAL HISTORY OF OTHER DISEASES OF TH 04/25/2018 NERIS BOSS APRN Ot Z88.8 ALLERGY STATUS TO [facility] DRUG/MEDS/BIOL SUB 04/25/2018 NERIS BOSS APRN Ot Z90.710 ACQUIRED ABSENCE OF BOTH CERVIX AND UTER 04/25/2018 NERIS BOSS APRN Ot Z90.89 ACQUIRED ABSENCE OF OTHER ORGANS 05/17/2018 WING HUNTER DO Ot Z01.818 ENCOUNTER FOR OTHER PREPROCEDURAL EXAMIN 05/18/2018 WING HUNTER DO Ot Z01.818 ENCOUNTER FOR OTHER PREPROCEDURAL EXAMIN Procedures Code Description Performed By Performed On Podiatry Melania Oshea 06/27/2012 Orthopedi Hi Lowe 07/25/2012 55492 URINE DRUG SCREEN (IN-HOUSE ) 09/17/2012 93034 ROUTINE VENIPUNCTURE 09/19/2012 96973 CMP 09/19/2012 0503110 GFR CALC (RESULT ONLY) 09/19/2012 30436 TSH 09/19/2012 91160 INSULIN LEVEL 09/19/2012 61973 URINE DRUG SCREEN (IN-HOUSE ) 10/30/2012 86827 MAMMOGRAM DX, EMBER 11/01/2012 Orthopedi Rk Marquez 11/01/2012 31886 MRI SPINE (THORACIC) W/O CONTRAST 04/09/2013 84591 MRI SPINE (LUMBAR) W/O CONTRAST 04/09/2013 Physical Physical Therapy 04/23/2013 Physical Physical Therapy 06/24/2013 10124 ROUTINE VENIPUNCTURE 09/18/2013 Rk Olivera 09/18/2013 53439 URINE DRUG SCREEN (IN-HOUSE ) 09/18/2013 21581 HEMOCCULT 09/18/2013 15283 HEMOCCULT 09/18/2013 16942 CBC 09/18/2013 7405072 GFR CALC (RESULT ONLY) 09/18/2013 13275 CMP 09/18/2013 49726 LIPID PANEL 09/18/2013 47911 CRP 09/18/2013 32095 LIPASE 09/18/2013 93917 SED/ESR RATE RML 09/18/2013 34573 TSH 09/18/2013 76502 STOOL FOR POLYS & LEUKOCYTES 09/18/2013 36577 XRAY SHOULDER RIGHT COMP 2 VIEWS 09/19/2013 94157 CULTURE STOOL 09/19/2013 04472 STOOL FOR O & P 09/19/2013 2810454 STOOL FOR BACTERIAL PATHOGENS 09/20/2013 66393 URINE DRUG SCREEN (IN-HOUSE ) 10/08/2013 53572 MRI SPINE (THORACIC) W/O CONTRAST 10/08/2013 78883 MRI SPINE (LUMBAR) W/O CONTRAST 10/08/2013 Results [...] Gram stain Few WBC's, and mixed bacterial yaqulein NRG Bacterial sputum culture - 06/10/17 14:46 Bacterial sputum culture NORMAL NRG CMP - 07/27/17 08:51 GLUCOSE 100 mg/dL 65-99 UREA NITROGEN (BUN) 10 mg/dL 7-25 CREATININE 0.78 mg/dL 0.50-1.05 eGFR NON-AFR. [place] 89 mL/min/1.73m2 > OR=60 eGFR 103 mL/min/1.73m2 [...] Status Pt. Type Provider Facility Loc./Unit Complaint [id number] 02/14/2014 11:47:00 02/14/2014 23:59:59 CLS Outpatient STALIN PUGA DDS [id number] 10/08/2013 15:20:00 10/08/2013 23:59:59 CLS Outpatient DON GUADALUPE APRN [id number] 10/08/2013 15:20:00 10/08/2013 23:59:59 CLS Outpatient DON GUADALUPE APRN [id number] 09/19/2013 11:31:00 09/19/2013 23:59:59 CLS Outpatient DON GUADALUPE APRN S [id number] 09/18/2013 11:32:00 09/18/2013 23:59:59 CLS Outpatient DON GUADALUPE APRN S [id number] 08/28/2013 13:40:00 08/28/2013 23:59:59 CLS Outpatient KACIE DRIVER DDS [id number] 06/24/2013 10:57:00 06/24/2013 23:59:59 CLS Outpatient DON GUADALUPE APRN S [id number] 04/22/2013 14:28:00 04/22/2013 23:59:59 CLS Outpatient MELISSA DAHL MD [id number] 10/30/2012 10:42:00 10/30/2012 23:59:59 CLS Outpatient DON GUADALUPE APRN S [id number] 09/19/2012 09:51:00 09/19/2012 23:59:59 CLS Outpatient DON GUADALUPE APRN S [id number] 09/17/2012 10:37:00 09/17/2012 23:59:59 CLS Outpatient [id number] 07/25/2012 15:19:00 07/25/2012 23:59:59 CLS Outpatient DON GUADALUPE APRN [id number] 06/05/2012 13:36:00 06/05/2012 23:59:59 CLS Outpatient DON GUADALUPE APRN S [id number] 04/03/2013 14:55:00 Document Registration [id number] 02/22/2013 14:23:00 Document Registration [id number] 04/01/2015 05:09:24 ACT Document Registration [id number] 03/01/2018 11:00:00 03/01/2018 23:59:59 CLS Outpatient WILD RODRIGUEZ [facility]N [facility] [id number] 09/20/2017 16:00:00 Document Registration [id number] 07/27/2017 08:40:00 Document Registration [id number] 05/12/2017 10:01:00 05/12/2017 23:59:00 DIS Outpatient RK MARQUEZ [id number] 12/09/2016 18:40:00 12/09/2016 23:59:00 DIS Outpatient Suhas Willett [id number] 05/17/2018 07:07:00 05/17/2018 12:05:00 DIS Outpatient DALE DO WING Zackery [facility] PREOP RIGHT GROIN LESION [id number] 05/01/2018 11:06:00 05/01/2018 23:59:59 CLS Preadmit RK MARQUEZ MD [facility] REHAB IMPINGEMENT L SHOULDER [id number] 04/23/2018 11:24:00 04/23/2018 15:25:00 DIS Emergency NERIS BOSS APRN [facility] ER L SHOULDER PAIN [id number] 12/08/2017 08:08:00 01/08/2018 13:43:00 DIS Outpatient RK MARQUEZ MD [facility] REHAB CERVICAL SPRAIN/ WHIPLASH INJURY [id number] 11/23/2017 09:02:00 11/23/2017 23:59:59 CLS Outpatient KEELY GARG [facility] RAD N63.20 LT BREAST LUMP; Z13.820 OSTEOPOROSIS SCREENI [id number] 11/09/2017 09:27:00 11/09/2017 23:59:59 CLS Preadmit KEELY GARG [facility] RAD Z13.820 SCREENING FOR OSTEOPOROSIS [id number] 07/28/2017 12:43:00 07/28/2017 15:27:00 DIS Emergency MAU HOFFMANN MD [facility] ER DIZZY/PASSING OUT [id number] 06/21/2017 10:43:00 06/21/2017 23:59:59 CLS Preadmit RK MARQUEZ MD [facility] REHAB NECK PAIN [id number] 06/10/2017 13:23:00 06/10/2017 17:17:00 DIS Emergency MAYELIN ARAGON [facility] ER CP, COUGHING [id number] 04/14/2017 11:37:00 04/14/2017 23:59:59 CLS Outpatient GEORGIANA FELDER DO [facility] RAD R06.02 [id number] 01/18/2017 10:16:00 01/18/2017 14:30:00 DIS Outpatient ROSALIE BELLO DO [facility] ENDO BLACK TARRY STOOLS [id number] 01/16/2017 05:41:00 01/16/2017 13:30:00 DIS Outpatient ROSALIE BELLO DO [facility] PREOP BLACK TARRY STOOLS [id number] 12/15/2016 09:35:00 12/15/2016 23:59:59 CLS Outpatient SUHAS WILLETT MD [facility] CARD ABD PAIN RLQ [id number] 11/25/2016 10:08:00 11/25/2016 23:59:59 CLS Outpatient JOAN WILLETT 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 [facility] RAD SCREENING [id number] 07/15/2016 14:09:00 07/15/2016 16:43:00 DIS Emergency MAYELIN ARAGON [facility] ER FALL LEFT WRIST/HAND INJURY [id number] 05/19/2016 09:59:00 05/19/2016 23:59:59 CLS Outpatient WING HUNTER DO [facility] RAD ABDOMINAL PAIN [id number] 01/18/2016 07:09:00 01/18/2016 23:59:59 CLS Outpatient JERO DAMON [facility] LAB MIXED PHYERLIPIDEMIA [id number] 01/18/2016 07:05:00 01/18/2016 23:59:59 CLS Outpatient CINDY DEY MD [facility] CARD CHEST PAIN SYNDROME, DYSPNEA,MILD HLP,ANXIETY [id number] 01/07/2016 15:21:00 01/07/2016 23:59:59 CLS Outpatient SUHAS WILLETT MD [facility] RAD R ANKLE SPRAIN [id number] 11/12/2015 08:45:00 11/12/2015 23:59:59 CLS Outpatient SUHAS WILLETT MD [facility] CARD FATIGUE,WEIGHT GAIN, PALPITATIONS,POLYPHAGIA, [id number] 09/29/2015 09:43:00 09/29/2015 15:25:00 DIS Outpatient WING HUNTER DO [facility] SDC VIN3; CHRONIC PELVIC PAIN [id number] 09/23/2015 10:18:00 09/23/2015 23:59:59 CLS Outpatient DALE PEREZ WING C [facility] PREOP VIN3; CHRONIC PELVIC PAIN [id number] 09/23/2015 08:29:00 09/23/2015 23:59:59 CLS Outpatient WING HUNTER DO Zackery [facility] RAD CHRONIC PELVIC PAIN, RUQ ABD PAIN [id number] 08/17/2015 10:07:00 08/17/2015 23:59:59 CLS Outpatient JERO DAMON [facility] LAB MILD HLP [id number] 04/24/2015 10:49:00 04/24/2015 23:59:59 CLS Preadmit FIGUEROA ESQUEDA MD [facility] REHAB [id number] 03/31/2015 11:39:00 03/31/2015 23:59:59 CLS Outpatient FIGUEROA ESQUEDA MD [facility] RAD LUMBAGO [id number] 03/31/2015 11:33:00 03/31/2015 23:59:59 CLS Outpatient KALPANA JACINTO MD [facility] RAD STONES [id number] 03/24/2015 14:06:00 03/24/2015 23:59:59 CLS Outpatient KALPANA JACINTO MD [facility] RAD STONE [id number] 03/03/2015 22:34:00 03/04/2015 01:43:00 DIS Emergency EMMY GREEN DO [facility] ER PELVIC PRESSURE/BLEEDING [id number] 09/17/2014 11:40:00 09/17/2014 23:59:59 CLS Outpatient CINDY DEY MD [facility] CARD CP,FAZAL,TOBACCO USE [id number] 09/04/2014 20:00:00 09/04/2014 23:59:59 CLS Preadmit CINDY DEY MD [facility] SLEEP SNORING FATIGUE LOSS OF ENERGY [id number] 09/02/2014 13:52:00 09/02/2014 23:59:59 CLS Outpatient CINDY DEY MD [facility] CARD CP,FATIUGE,TOBACCO USE [id number] 08/25/2014 08:20:00 08/25/2014 23:59:59 CLS Outpatient CINDY DEY MD [facility] LAB CHEST PAIN SYNDROME, FATIGUE,OBESITY,TOBACCO USER [id number] 06/26/2014 09:52:00 06/26/2014 23:59:59 CLS Outpatient SUHAS WILLETT MD [facility] RAD HEADACHES [id number] 03/06/2014 13:13:00 03/31/2014 14:00:00 DIS Outpatient RK MARQUEZ MD [facility] REHAB BACK PAIN [id number] 03/12/2014 08:13:00 03/12/2014 23:59:59 CLS Outpatient RK MARQUEZ MD [facility] REHAB S/P R RTC REPAIR [id number] 03/06/2014 13:46:00 03/06/2014 14:58:00 DIS Emergency MARIANNE STOVER MD [facility] ER BACK PAIN/HEADACHE [id number] 11/29/2013 12:54:00 11/29/2013 23:59:59 CLS Outpatient SUHAS WILLETT MD [facility] LAB URINARY FREQ,BURNING ON URINATION [id number] 06/03/2013 12:59:00 06/18/2013 14:56:00 DIS Outpatient DON GUADALUPE [facility] REHAB BACK PAIN W RADICULOPATHY [id number] 04/01/2013 16:01:00 04/01/2013 18:00:00 DIS Emergency NERIS BOSS SENIOR UI DESIGNER [facility] ER BACK PAIN [id number] 12/20/2012 13:07:00 12/20/2012 23:59:59 CLS Outpatient DON GUADALUPE [facility] RAD BREAST CA [id number] 05/22/2018 10:15:00 PEN Preadmit WING HUNTER DO [facility] SDC RIGHT GROIN LESION [id number] 05/13/2015 09:21:00 Document Registration [id number] 06/26/2014 09:53:00 Document Registration [id number] 06/26/2014 09:53:00 Document Registration [id number] 06/26/2014 09:53:00 Document Registration [id number] 06/26/2014 09:53:00 Document Registration [id number] 06/26/2014 09:53:00 Document Registration [id number] 06/26/2014 09:53:00 Document Registration [id number] 06/26/2014 09:53:00 Document Registration [id number] 02/09/2012 10:31:00 Document Registration [id number] 12/06/2011 10:42:00 Document Registration [id number] 11/07/2011 14:07:00 Document Registration [id number] 11/02/2011 17:11:00 Document Registration [id number] 01/11/2011 10:42:00 Document Registration [id number] 12/23/2010 12:59:00 Document Registration [id number] 11/22/2010 13:59:00 Document Registration [id number] 10/27/2010 13:51:00 Document Registration [id number] 09/02/2010 11:28:00 Document Registration [id number] 03/19/2010 12:00:00 Document Registration [id number] 03/18/2010 08:56:00 Document Registration [id number] 12/25/2009 10:58:00 Document Registration [id number] 11/04/2009 13:11:00 Document Registration [id number] 10/26/2009 14:40:00 Document Registration [id number] 08/17/2009 14:23:00 Document Registration [id number] 06/25/2009 11:48:00 Document Registration [id number] 05/28/2009 08:00:00 Document Registration [id number] 05/25/2009 10:37:00 Document Registration [id number] 03/06/2009 08:46:00 Document Registration
[2018-05-22 09:23] VITALS: BP 113/76
[2018-05-22] MEDS ORDERED: AMOX500C2 PO (09:30)
--- NOTE | 2018-05-22 09:36 | Progress Note-Pre Operative ---
Pre-Operative Progress Note H&P Reviewed The H&P was reviewed, patient examined and no changes noted. Date Seen by Provider: May 22, 2018 Time Seen by Provider: 09:40 Date H&P Reviewed: May 22, 2018 Time H&P Reviewed: 07:45 Pre-Operative Diagnosis: MEERA III, right groin lesion WING HUNTER DO May 22, 2018 09:36
[2018-05-22] MEDS ORDERED: ONDANSETRON 4 MG/2 ML (SDV) Z0FRAN ONE (10:03)
[2018-05-22] MEDS ORDERED: FAMOTIDINE 20MG/2ML IV (PEPCID) ONE (10:03)
[2018-05-22] MEDS ORDERED: MIDAZOLAM 2 MG/2 ML (VERSED) VIAL ONE (10:05)
[2018-05-22] MEDS ORDERED: ONDANSETRON 4 MG/2 ML (SDV) Z0FRAN IV ONE (10:15)
[2018-05-22] MEDS ORDERED: FAMOTIDINE 20MG/2ML IV (PEPCID) IV ONE (10:15)
[2018-05-22] MEDS ORDERED: BUP/EPI 0.5% 1:200,000 (SENSORCAINE) 30 ML VIAL ONE (10:20)
[2018-05-22] MEDS ORDERED: morphine INJ 10 MG/ML 1ML (SYR OR VIAL) ONE (10:21)
[2018-05-22] MEDS ORDERED: PROPOFOL INJECTION 50 ML IV ONE (10:26)
[2018-05-22] MEDS ORDERED: KETOROLAC 30 MG/ML VIAL ONE (10:47)
--- NOTE | 2018-05-22 10:57 | Operative Report ---
Operative Report Date of Procedure/Surgery May 22, 2018 Surgeon (s) WING HUNTER DO [employer] Sales Counter Manager (s): nA Post-Operative Diagnosis SAME Procedure Performed WIDE LOCAL EXCISION OF GROIN CYSTIC LESION, VULVAR COLPOSCOPY AND BIOPSY Description of Procedure Anesthesia Type: MAC Estimated blood loss (mL): MINIMAL Specimen(s) collected/removed GROIN LESION, VULVAR/LABIA MINORA BIOPSY Description of the Procedure With informed consent the patient was taken to the operating room where general anesthesia was found to be adequate. She was prepped and draped in the usual sterile fashion in the dorsolithotomy position. The bladder was drained of clear yellow urine. There is a raised, discolored lesion in the right groin, in the inguinal crease. This is 2x3 cm. Marcaine was used to inject the lesion until a wheal was formed. And elliptical lesion was made and the entire lesion was removed. There was no extension in to the subdermic. The excision was closed with interrupted 3-0 silk sutures (7 were used). At this point the patient was repositioned for a colposcopy. Dilute acetic acid was placed on the vulva and there was a 5 mm raised lesion noted that was shaved. This was send for pathology. Bleeding was controlled with AgNO3.she was awakened and taken to the recovery room in stable condition. Findings of the Procedure raised lesion in the right groin. and on the left labia minora Allergies and Home Medications Allergies Coded Allergies: fentanyl (Verified Allergy, Severe, SEVERE N/V, 05/17/18) Xyavald-Vyj-Non Reductase Inhibitor (Verified Allergy, Mild, LEG CRAMPS, 05/17/18) Home Medications Alprazolam 1 Mg Tablet, 1 MG PO TID, (Reported) Amoxicillin 500 Mg Capsule, 500 MG PO QID, (Reported) Benzocaine/Menthol 78 Gm Aerosol, 78 GM TP QID Prescribed by: WING HUNTER on 05/22/18 1059 Hydrocodone/Acetaminophen 1 Each Tablet, 1 EACH PO Q6H Prescribed by: WING HUNTER on 05/22/18 1059 Ibuprofen 600 Mg Tablet, 600 MG PO Q6H PRN for PAIN Prescribed by: WING HUNTER on 05/22/18 1059 Patient Home Medication List Home Medication List Reviewed: WING Manuel DO May 22, 2018 10:57
[2018-05-22] MEDS ORDERED: BENZ78AE2 TP (10:59)
[2018-05-22] MEDS ORDERED: IBUP-1773 PO (10:59)
[2018-05-22] MEDS ORDERED: HYDR-4226 PO (10:59)
--- NOTE | 2018-05-22 11:01 | Discharge Inst-Women's Service ---
Discharge Inst-Women's Serv Depart Medication/Instructions New, Converted or Re-Newed RX: RX on Chart Instructions SITZ BATHS, KEEP INCISION CLEAN AND DRY, DRESS IF NEEDED BUT NOT NECESSARY IF CAN KEEP CLEAN AND DRY Final Diagnosis CYST IN GROIN (RIGHT) VULVAR DYSPLASIA PROCEDURE - WLE OF RIGHT GROIN CYST VULVAR COLPOSCOPY WITH BIOPSY Consults/Follow Up Additional Follow Up: Yes (1 WEEK (MONDAY OR MONDAY) FOR SUTURE REMOVAL AND FOLLOW UP) Activity Activity: Activity as Tolerated Driving Instructions: No Driving for 24 Hours NO SMOKING: NO SMOKING Nothing Inside Vagina: No Douching, No [place], No Tampons Diet Discharge Diet: No Restrictions Symptoms to Report to DrYola: Bleeding Excessive, Pain Increased, Fever Over 101 Degrees F, Vaginal Bleeding Increase, Cramps in Feet or Legs, Vaginal Discharge Foul For Any Problems or Questions: Contact Your Physician Skin/Wound Care Operative Area Clean and Dry: Keep Incision Clean/Dry Stitches/Purvi/Dermabond: Care of Stitches Bathing Instructions: WING Roman DO May 22, 2018 11:01
[2018-05-22 11:15] VITALS: BP 101/75
[2018-05-22] MEDS ORDERED: ONDANSETRON 4 MG/2 ML (SDV) Z0FRAN IVP PRN (11:15)
--- NOTE | 2018-05-22 12:13 | Anesthesia-General Post-Op ---
General Patient Condition Mental Status/LOC: Same as Preop Cardiovascular: Satisfactory Nausea/Vomiting: Absent Respiratory: Satisfactory Pain: Controlled Complications: Absent Post Op Complications Complications None Follow Up Care/Instructions Patient Instructions None needed. Anesthesia/Patient Condition Patient Condition Patient is doing well, no complaints, stable vital signs, no apparent adverse anesthesia problems. No complications reported per nursing. LAI MOISE CRNA May 22, 2018 12:13
[2018-05-22 12:15] VITALS: BP 98/63
== END 2018-05-22 12:08 | disposition home or self-care (01) ==
LOC: SDC 08:48
PROVIDERS: ATTEND Obstetrics & Gynecology
DX: L72.0 Epidermal cyst (principal); N90.89 Other specified noninflammatory disorders of vulva and perineum; F17.210 Nicotine dependence, cigarettes, uncomplicated; K21.9 Gastro-esophageal reflux disease without esophagitis; I49.9 Cardiac arrhythmia, unspecified; Z79.899 Other long term (current) drug therapy
CPT/HCPCS: 87081; 88304

== ENCOUNTER 2018-11-06 10:45 | Outpatient (RCR) | payer MEDICAID ==
[~2018-11-06 10:45] MED LIST changes: +AMOX500C2 PO; +BENZ78AE2 TP
== END 2018-12-11 | disposition home or self-care (01) ==
PROVIDERS: ATTEND Orthopaedic Surgery Sports Medicine
DX: S46.012D Strain of muscle(s) and tendon(s) of the rotator cuff of left shoulder, subsequent encounter (principal); W19.XXXD Unspecified fall, subsequent encounter

== ENCOUNTER → 2019-01-01 | Outpatient (CLI) | payer MEDICAID | LOC: RAD 08:38 | PROVIDERS: ATTEND Nurse Practitioner Primary Care | DX: Z12.31 Encounter for screening mammogram for malignant neoplasm of breast (principal); Z53.8 Procedure and treatment not carried out for other reasons ==

== ENCOUNTER 2019-01-03 10:34 | Emergency (ER) | payer MEDICAID ==
[~2019-01-03] VITALS: Ht 172.7 cm; Wt 91.2 kg
[~2019-01-03 10:34] MED LIST changes: -ONDA4TAB11 PO; -PANTOPRAZOLE TAB 40MG
[2019-01-03] MEDS ORDERED: KETOROLAC 30 MG/ML VIAL IVP ONE (10:45)
[2019-01-03] MEDS ORDERED: ONDANSETRON 4 MG/2 ML (SDV) Z0FRAN IVP ONE (10:45)
--- NOTE | 2019-01-03 10:48 | ED GU-Female ---
General Chief Complaint: - Urinary Stated Complaint: KIDNEY STONES Source: patient Exam Limitations: no limitations History of Present Illness Date Seen by Provider: January 03, 2019 Time Seen by Provider: 10:39 Initial Comments Patient presents to ER by private conveyance with chief complaint she's been having some pain in her right back radiating down to her groin and some pressure in the suprapubic region. She endorses dysuria. She was seen in the clinic last week and told they didn't ultrasound of her that showed she had multiple kidney stones in her kidney and that's what they thought she had so they sent her home. She is not on antibiotics does not take Tylenol Motrin or any kind of pain medicine. She did take AZO which did not help her pain. Allergies and Home Medications Allergies Coded Allergies: fentanyl (Verified Allergy, Severe, SEVERE N/V, 01/03/19) Wgigxfo-Syp-Ypr Reductase Inhibitor (Verified Allergy, Mild, LEG CRAMPS, 01/03/19) Home Medications Alprazolam 1 Mg Tablet, 1 MG PO TID, (Reported) Amoxicillin 500 Mg Capsule, 500 MG PO QID, (Reported) Benzocaine/Menthol 78 Gm Aerosol, 78 GM TP QID Prescribed by: WING HUNTER on 05/22/18 1059 Hydrocodone/Acetaminophen 1 Each Tablet, 1 EACH PO Q6H Prescribed by: WING HUNTER on 05/22/18 1059 Ibuprofen 600 Mg Tablet, 600 MG PO Q6H PRN for PAIN Prescribed by: WING HUNTER on 05/22/18 1059 Patient Home Medication List Home Medication List Reviewed: Yes Review of Systems Review of Systems Constitutional: No chills, No diaphoresis EENTM: No hearing loss, No blurred vision Respiratory: No cough, No phlegm, No short of breath Cardiovascular: No chest pain, No edema Gastrointestinal: No abdominal pain, No constipation Genitourinary: denies discharge; dysuria Musculoskeletal: back pain (right flank); No joint pain Past Xnascju-Ffezdq-Hqilrf Hx Patient Social History Alcohol Use: Denies Use Recreational Drug Use: No Smoking Status: Former Smoker Type Used: Cigarettes Former Smoker, Quit: May 14, 2018 Recent Hopitalizations: No Immunizations Up To Date Date of Influenza Vaccine: May 09, 2011 Seasonal Allergies Seasonal Allergies: Yes Past Medical History Surgeries: Yes (LOWER BACK SX, BILAT CTR, BILAT ELBOW, BILAT RCR, DXLS, ) Appendectomy, Hysterectomy, Oophorectomy, Orthopedic Respiratory: No Cardiac: Yes High Cholesterol, Irregular Heartbeat Neurological: Yes Headaches /Migraines 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 Disorders: No Female 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 Disorders: Denies PRIVACY SPECIALIST History: Hysterectomy Sexually Transmitted Disease: Yes (HPV) HIV/AIDS: No Kidney Stones, UTI-Chronic Gastrointestinal: Yes (ABDOMINAL PAIN, TARRY STOOLS) Gastroesophageal Reflux, Chronic Diarrhea Musculoskeletal: Yes Arthritis, Chronic Back Pain Endocrine: Yes (PRE DIABETIC) Loss of Vision: Bilateral Hearing Impairment: Denies Cancer: No Psychosocial: Yes (SEVERE MANIC DEPRESSIVE DISORDER) Anxiety, PTSD, Bipolar, Depression Integumentary: No Blood Disorders: No Adverse Reaction/Blood Tranf: No (N/A) Family Medical History Alcoholism 19 FATHER G8 BROTHER G8 SISTER Arthritis 19 MOTHER G8 SISTER Cardiovascular disease 19 FATHER G8 BROTHER Diabetes mellitus 19 FATHER G8 BROTHER G8 SISTER Drug abuse G8 BROTHER G8 SISTER FH: cancer 19 MOTHER (BREAST) Glaucoma 19 FATHER G8 SISTER Hypercholesterolemia 19 FATHER G8 BROTHER Hypertension 19 FATHER G8 BROTHER Myocardial infarction 19 FATHER Psychosocial problem 19 MOTHER G8 BROTHER G8 SISTER Respiratory disorder 19 FATHER Seizure disorder G8 SISTER Thyroid disease G8 SISTER No Pertinent Family Hx Physical Exam Vital Signs Vital Signs - First Documented 01/03/19 10:37 Temp 96.7 Pulse 78 Resp 18 B/P (MAP) 140/103 (115) Pulse Ox 99 Capillary Refill : Height, Weight, BMI Height: 5'8.00" Weight: 201lbs. 0.0oz. 91.575938tm; 30.6 BMI Method:Stated General Appearance: WD/WN, no apparent distress HEENT: PERRL/EOMI, pharynx normal Neck: full range of motion, normal inspection Cardiovascular: normal peripheral pulses, regular rate, rhythm Respiratory: lungs clear, normal breath sounds, no respiratory distress, no accessory muscle use Gastrointestinal: normal bowel sounds, soft, no organomegaly, tenderness (mild suprapubic) Back: normal inspection, CVA tenderness (R); No CVA tenderness (L) Extremities: normal inspection, normal capillary refill Neurologic/Psychiatric: alert, oriented x 3 Progress/Results/Core Measures Suspected Sepsis SIRS Temperature: Pulse: Respiratory Rate: Laboratory Tests 01/03/19 10:45: White Blood Count 5.5 Blood Pressure / Mean: Laboratory Tests 01/03/19 10:45: Creatinine 0.79, Platelet Count 242, Total Bilirubin 0.7 Results/Orders Lab Results Laboratory Tests Test 01/03/19 10:45 01/03/19 10:54 Range/Units White Blood Count 5.5 4.3-11.0 10^3/uL Red Blood Count 4.85 4.35-5.85 10^6/uL Hemoglobin 15.2 11.5-16.0 G/DL Hematocrit 44 35-52 % Mean Corpuscular Volume 91 80-99 FL Mean Corpuscular Hemoglobin 31 25-34 PG Mean Corpuscular Hemoglobin Concent 35 32-36 G/DL Red Cell Distribution Width 12.7 10.0-14.5 % Platelet Count 242 130-400 10^3/uL Mean Platelet Volume 9.9 7.4-10.4 FL Neutrophils (%) (Auto) 57 42-75 % Lymphocytes (%) (Auto) 36 12-44 % Monocytes (%) (Auto) 6 0-12 % Eosinophils (%) (Auto) 1 0-10 % Basophils (%) (Auto) 1 0-10 % Neutrophils # (Auto) 3.1 1.8-7.8 X 10^3 Lymphocytes # (Auto) 2.0 1.0-4.0 X 10^3 Monocytes # (Auto) 0.3 0.0-1.0 X 10^3 Eosinophils # (Auto) 0.0 0.0-0.3 10^3/uL Basophils # (Auto) 0.0 0.0-0.1 10^3/uL Sodium Level 139 135-145 MMOL/L Potassium Level 4.2 3.6-5.0 MMOL/L Chloride Level 103 98-107 MMOL/L Carbon Dioxide Level 23 21-32 MMOL/L Anion Gap 13 5-14 MMOL/L Blood Urea Nitrogen 11 7-18 MG/DL Creatinine 0.79 0.60-1.30 MG/DL Estimat Glomerular Filtration Rate > 60 BUN/Creatinine Ratio 14 Glucose Level 98 70-105 MG/DL Calcium Level 9.9 8.5-10.1 MG/DL Corrected Calcium 8.5-10.1 MG/DL Total Bilirubin 0.7 0.1-1.0 MG/DL Aspartate Amino Transf (AST/SGOT) 83 H 5-34 U/L Alanine Aminotransferase (ALT/SGPT) 143 H 0-55 U/L Alkaline Phosphatase 134 40-136 U/L Total Protein 8.1 6.4-8.2 GM/DL Albumin 4.8 H 3.2-4.5 GM/DL Urine Color YELLOW Urine Clarity CLEAR Urine pH 6.5 5-9 Urine Specific [place] 1.010 L 1.016-1.022 Urine Protein NEGATIVE NEGATIVE Urine Glucose (UA) NEGATIVE NEGATIVE Urine Ketones NEGATIVE NEGATIVE Urine Nitrite NEGATIVE NEGATIVE Urine Bilirubin NEGATIVE NEGATIVE Urine Urobilinogen NORMAL NORMAL MG/DL Urine Leukocyte Esterase NEGATIVE NEGATIVE Urine RBC (Auto) 2+ H NEGATIVE Urine RBC RARE /HPF Urine WBC RARE /HPF Urine Squamous Epithelial Cells 0-2 /HPF Urine Crystals NONE /LPF Urine Bacteria NEGATIVE /HPF Urine Casts NONE /LPF Urine Mucus NEGATIVE /LPF Urine Culture Indicated NO My Orders Orders - LISA ADAMES Ct Abd/Pelvis Wo(Kidney Stone) (01/03/19 10:41) Cbc With Automated Diff (01/03/19 10:41) Comprehensive Metabolic Panel (01/03/19 10:41) Ua Culture If Indicated (01/03/19 10:41) Ketorolac Injection (Toradol Injection) (01/03/19 10:45) Ondansetron Injection (Zofran Injectio (01/03/19 10:45) Promethazine Injection (Phenergan Injec (01/03/19 11:45) Hydromorphone Injection (Dilaudid Inject (01/03/19 11:45) Medications Given in ED Current Medications Medications Dose Ordered Sig/[place]otte Route Start Time Stop Time Status Last Admin Dose Admin Hydromorphone HCl 0.25 mg ONCE ONCE IVP 01/03/19 11:45 01/03/19 11:46 DC 01/03/19 11:47 0.25 MG Ketorolac Tromethamine 30 mg ONCE ONCE IVP 01/03/19 10:45 01/03/19 10:46 DC 01/03/19 11:03 30 MG Ondansetron HCl 8 mg ONCE ONCE IVP 01/03/19 10:45 01/03/19 10:46 DC 01/03/19 11:03 8 MG Promethazine HCl 25 mg ONCE ONCE IVP 01/03/19 11:45 01/03/19 11:46 DC 01/03/19 11:37 25 MG Vital Signs/I&O 01/03/19 01/03/19 10:37 11:48 Temp 96.7 Pulse 78 57 Resp 18 16 B/P (MAP) 140/103 (115) 129/80 (96) Pulse Ox 99 Capillary Refill : Progress Note : Time: 10:54 Progress Note Toradol, Zofran, CT abdomen pelvis without contrast looking for kidney stones. Urinalysis. Diagnostic Imaging Diagonstic Imaging: CT (noncontrast) Plain Films/CT/US/NM/MRI: abdomen, pelvis Comments NAME: BRIGIDO SIGALA [facility] REC#: [id number] PT STATUS: REG ER : 1965 PHYSICIAN: LISA ADAMES MD ADMIT DATE: 01/03/19/ER Draft Date of Exam:01/03/19 CT ABD/PELVIS WO(KIDNEY STONE) PROCEDURE: CT urinary tract, rule out kidney stone. TECHNIQUE: Multiple contiguous axial images were obtained through the abdomen and pelvis without the use of intravenous contrast. Auto Exposure Controls were utilized during the CT exam to meet ALARA standards for radiation dose reduction. INDICATION: Posterior right flank pain and pelvic pain with hematuria. History of kidney stones. COMPARISON: 03/31/2015. FINDINGS: The lung bases are clear. The heart is normal in size. There is no pericardial effusion. The liver demonstrates no focal lesions. The spleen is normal. The pancreas is normal. The adrenal glands appear normal. There are nonobstructing calculi in the right kidney, largest measuring up to 2 mm in size. There is no hydronephrosis bilaterally. There is no hydroureter. No renal calculi are seen in the urinary bladder. The bowel loops are nondistended without evidence of obstruction. There is no evidence of appendicitis, although the appendix is not seen. There are diverticuli in the sigmoid colon without diverticulitis. No free fluid or free air is seen. No acute osseous abnormality is seen. There are postsurgical changes in the spine, with a posterior fusion at L4-S1. IMPRESSION: 1. Nonobstructing nephrolithiasis on the right. No hydronephrosis or hydroureter. 2. Colonic diverticulosis without diverticulitis. Dictated on workstation # [id number] Dict: 01/03/19 1207 Trans: 01/03/19 1217 [facility] [id number] Interpreted by: KACIE ORTIZ MD Electronically signed by: Reviewed: Reviewed by Me Departure Impression Primary Impression: Right flank pain Additional Impression: Nephrolithiasis Disposition: HOME, SELF-CARE Condition: Stable Departure-Patient Inst. Decision time for Depature: 12:41 Referrals: [facility] [place] Primary Care Physician JESSE CLIFFORD APRN (Family) Primary Care Physician KALPANA JACINTO MD Patient Instructions: Kidney Stones in Adults Add. Discharge Instructions: You have recently passed kidney stones but he don't have anything in your urinary tract that would be obstructing causing pain presently. Expect resolution of symptoms in the next day or 2. You still have some kidney stones up in the kidneys which could continue to pass at any time. Follow-up with urology for discussion of how you might manage her symptoms. Tylenol 1000 mg and ibuprofen 800 mg every 8 hours as necessary for discomfort. Heating pads. You may discontinue Azo. All discharge instructions reviewed with patient and/or family. Voiced understanding. Work/School Note: Work Release Form Date Seen in the Emergency Department: January 03, 2019 Return to Work: January 04, 2019 Restrictions: No Restrictions LISA ADAMES January 03, 2019 10:48
[2019-01-03 10:56] LABS: BASOPHILS % (AUTO) 1 % (0-10); EOSINOPHILS % (AUTO) 1 % (0-10); HEMATOCRIT 44 % (35-52); HEMOGLOBIN 15.2 G/DL (11.5-16.0); LYMPHOCYTES % (AUTO) 36 % (12-44); MEAN CORPUSCULAR HEMOGLOBIN 31 PG (25-34); MEAN CORPUSCULAR HGB CONC 35 G/DL (32-36); MEAN CORPUSCULAR VOLUME 91 FL (80-99); MEAN PLATELET VOLUME 9.9 FL (7.4-10.4); MONOCYTES # (AUTO) 0.3 X 10^3 (0.0-1.0); MONOCYTES % (AUTO) 6 % (0-12); NEUTROPHILS # (AUTO) 3.1 X 10^3 (1.8-7.8); NEUTROPHILS % (AUTO) 57 % (42-75); PLATELET COUNT 242 10^3/uL (130-400); RED CELL DISTRIBUTION WIDTH 12.7 % (10.0-14.5); WHITE BLOOD COUNT 5.5 10^3/uL (4.3-11.0)
[2019-01-03 11:03] LABS: BILIRUBIN,URINE NEGATIVE (NEGATIVE); CLARITY,URINE CLEAR; COLOR,URINE YELLOW; GLUCOSE, URINE (UA) NEGATIVE (NEGATIVE); KETONES,URINE NEGATIVE (NEGATIVE); LEUKOCYTE ESTERASE ,URINE NEGATIVE (NEGATIVE); NITRITE,URINE NEGATIVE (NEGATIVE); PH,URINE 6.5 (5-9); PROTEIN,URINE NEGATIVE (NEGATIVE); UROBILINOGEN,URINE NORMAL (NORMAL)
[2019-01-03 11:20] LABS: ALANINE AMINOTRANSFERASE 143 U/L (0-55); ALBUMIN 4.8 GM/DL (3.2-4.5); ALKALINE PHOSPHATASE 134 U/L (40-136); BILIRUBIN,TOTAL 0.7 MG/DL (0.1-1.0); BUN/CREATININE RATIO 14; CALCIUM 9.9 MG/DL (8.5-10.1); CARBON DIOXIDE 23 MMOL/L (21-32); CHLORIDE 103 MMOL/L (98-107); CREATININE SERUM 0.79 MG/DL (0.60-1.30); GFR ESTIMATED > 60; GLUCOSE 98 MG/DL (70-105); POTASSIUM 4.2 MMOL/L (3.6-5.0); SODIUM 139 MMOL/L (135-145); TOTAL PROTEIN 8.1 GM/DL (6.4-8.2)
[2019-01-03 11:20] LABS: BACTERIA,URINE NEGATIVE /HPF; RBC,URINE RARE /HPF; SQUAMOUS EPITHELIAL CELL,UR 0-2 /HPF; WBC,URINE RARE /HPF
--- NOTE | 2019-01-03 11:32 | NUR ---
Dr chavez contacted CT and found they are doing a biopsy and will be here to get the patient as soon as possible. warm blanket given to the patient at this time.
[2019-01-03] MEDS ORDERED: HYDROmorphone 2 MG/ML VIAL (DILAUDID) IVP ONE (11:45)
[2019-01-03] MEDS ORDERED: PROMETHAZINE INJ 25 MG/ML (PHENERGAN) AMP IVP ONE (11:45)
[2019-01-03 11:48] VITALS: BP 129/80
[2019-01-03] MEDS ORDERED: PANTOPRAZOLE TAB 40MG (11:50)
--- NOTE | 2019-01-03 11:50 | NUR ---
patient taken to CT
--- NOTE | 2019-01-03 11:59 | NUR ---
returned from CT
--- NOTE | 2019-01-03 12:18 | Diagnostic Imaging Report ---
PROCEDURE: CT urinary tract, rule out kidney stone. TECHNIQUE: Multiple contiguous axial images were obtained through the abdomen and pelvis without the use of intravenous contrast. Auto Exposure Controls were utilized during the CT exam to meet ALARA standards for radiation dose reduction. INDICATION: Posterior right flank pain and pelvic pain with hematuria. History of kidney stones. COMPARISON: 03/31/2015. FINDINGS: The lung bases are clear. The heart is normal in size. There is no pericardial effusion. The liver demonstrates no focal lesions. The spleen is normal. The pancreas is normal. The adrenal glands appear normal. There are nonobstructing calculi in the right kidney, largest measuring up to 2 mm in size. There is no hydronephrosis bilaterally. There is no hydroureter. No renal calculi are seen in the urinary bladder. The bowel loops are nondistended without evidence of obstruction. There is no evidence of appendicitis, although the appendix is not seen. There are diverticuli in the sigmoid colon without diverticulitis. No free fluid or free air is seen. No acute osseous abnormality is seen. There are postsurgical changes in the spine, with a posterior fusion at L4-S1. IMPRESSION: 1. Nonobstructing nephrolithiasis on the right. No hydronephrosis or hydroureter. 2. Colonic diverticulosis without diverticulitis. Dictated by: Dictated on workstation # [id number]
[2019-01-03 12:50] VITALS: BP 124/82
[2019-01-03] MEDS ORDERED: ONDA4TAB11 PO (12:53)
[2019-01-03] MEDS ORDERED: CYCL10TA9 PO (12:53)
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
--- OUTSIDE RECORDS SUMMARY | 2019-01-03 13:42 | XMS REPORT ---
Author Author Migration, Doctor Organization [facility] Address Unknown Phone Unavailable Care Team Providers Care Associate Professor Of Media Arts Name Role Phone Migration, Doctor Unavailable Unavailable PROBLEMS Type Condition ICD9-CM Code [id number] Code Onset Dates Condition Status SNOMED Code Problem Prediabetes 790.29 Active 6491680 Problem Generalized anxiety disorder F41.1 Active 39959511 Problem Mixed hyperlipidemia E78.2 Active 475713867 Problem Major depressive disorder, recurrent episode, moderate F33.1 Active 066634986 Problem Cannabis abuse F12.10 Active 76902595 Problem Alcohol use disorder, mild, 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 Active 01327244 Problem Opioid use disorder, moderate, in sustained remission F11.21 Active 44376362 Problem Methamphetamine use disorder, severe, 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 Active 17255908 Problem Bipolar disorder F31.9 Active 24992006 Problem PTSD (post-traumatic stress disorder) F43.10 Active 24849127 Problem Gastroesophageal reflux disease, esophagitis presence not specified K21.9 Active 388135057 Problem Tobacco use Z72.0 Active 804870866 Problem Cocaine use disorder, moderate, in sustained remission F14.21 Active 60953313 Problem GERD with esophagitis K21.0 Active 427746020 Problem Acute pain of left shoulder M25.512 Active 98776309 Problem Cigarette nicotine dependence without complication F17.210 Active 70889456 ALLERGIES No Information ENCOUNTERS Encounter Location Date Diagnosis [facility] [id number] [place] [address] Jan, [facility] [address], [place] [address] December, Screening for breast cancer Z12.31 ; Chest pain, unspecified type R07.9 and Gastroesophageal reflux disease, esophagitis presence not specified K21.9 [facility] [id number] [address] December, [facility] [address], [place] [address] December, Dysuria R30.0 and Suprapubic abdominal pain R10.2 [facility] [address], [place] [address] December, [facility] [address] [place] [address] December, Cannabis abuse F12.10 ; Generalized anxiety disorder F41.1 ; Methamphetamine use disorder, severe, 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 ; Alcohol use disorder, mild, 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 ; PTSD (post-traumatic stress disorder) F43.10 ; Cocaine use disorder, moderate, in sustained remission F14.21 and Bipolar disorder F31.9 [facility] [address], [place] [address] Nov, Major depressive disorder, recurrent episode, moderate F33.1 ; Cannabis abuse F12.10 ; Generalized anxiety disorder F41.1 ; Methamphetamine use disorder, severe, 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 ; Alcohol use disorder, mild, 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 ; PTSD (post-traumatic stress disorder) F43.10 and Cocaine use disorder, moderate, in sustained remission F14.21 [facility] [id number] [address] Oct, Major depressive disorder, recurrent episode, moderate F33.1 ; Cannabis abuse F12.10 ; Generalized anxiety disorder F41.1 ; Methamphetamine use disorder, severe, 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 ; Alcohol use disorder, mild, 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 ; PTSD (post-traumatic stress disorder) F43.10 and Cocaine use disorder, moderate, in sustained remission F14.21 [facility] [address], [place] [address] Sep, Major depressive disorder, recurrent episode, moderate F33.1 [facility] [id number] [id number] Aug, [facility] [address] [place] [address] Jul, Dysuria R30.0 [facility] [id number] [place] [address] Jul, Major depressive disorder, recurrent episode, moderate F33.1 [facility] [id number] [place] [address] Jun, Major depressive disorder, recurrent episode, moderate F33.1 [facility] [id number] [place] [address] Jun, Major depressive disorder, recurrent episode, moderate F33.1 [facility] [address] [address] Jun, Acute pain of left shoulder M25.512 and Cigarette nicotine dependence without complication F17.210 [facility] [id number] [place] [address] May, [facility] [address] [address] May, Cocaine use disorder, moderate, in sustained remission F14.21 [facility] [address] [address] May, [facility] [address] [place] [address] May, Dental examination Z01.20 [facility] [address] [id number] May, Dental examination Z01.20 and Caries K02.9 [facility] [id number] [place] [address] May, Common wart B07.8 [facility] [address] [address] May, [facility] [id number] [place] [address] Apr, Cocaine use disorder, moderate, in sustained remission F14.21 [facility] [id number], [place] [address] 14 Apr, 2018 [facility] [address] [place] [id number] 13 Apr, 2018 Dental examination Z01.20 [facility] [id number] [id number] 10 Mar, 2018 Encounter for dental exam and cleaning w/o abnormal findings Z01.20 [place] [address] [place] [address] 07 Mar, 2018 [place] [id number] [place] [address] Feb, Cocaine use disorder, moderate, in sustained remission F14.21 ; Opioid use disorder, moderate, in sustained remission F11.21 ; Alcohol use disorder, mild, 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 ; Tobacco use Z72.0 ; PTSD (post-traumatic stress disorder) F43.10 ; Methamphetamine use disorder, severe, 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 ; Generalized anxiety disorder F41.1 ; Cannabis abuse F12.10 and Major depressive disorder, recurrent episode, moderate F33.1 [place] [address] [place] [address] Jan, Cocaine use disorder, moderate, in sustained remission F14.21 [place] [address], [place] [address] Jan, Cocaine use disorder, moderate, in sustained remission F14.21 ; Opioid use disorder, moderate, in sustained remission F11.21 ; Alcohol use disorder, mild, 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 ; Tobacco use Z72.0 ; PTSD (post-traumatic stress disorder) F43.10 ; Methamphetamine use disorder, severe, 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 ; Generalized anxiety disorder F41.1 ; Cannabis abuse F12.10 and Major depressive disorder, recurrent episode, moderate F33.1 [place] [address], [place] [address] Jan, Dysuria R30.0 and GERD with esophagitis K21.0 [facility] [address], [place] [address] December, Major depressive disorder, recurrent episode, moderate F33.1 [facility] [address] [place] [address] December, [facility] [address] [place] [address] December, Major depressive disorder, recurrent episode, moderate F33.1 ; Generalized anxiety disorder F41.1 ; Cannabis abuse F12.10 ; PTSD (post-traumatic stress disorder) F43.10 ; Methamphetamine use disorder, severe, 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 ; Cocaine use disorder, moderate, in sustained remission F14.21 ; Opioid use disorder, moderate, in sustained remission F11.21 ; Alcohol use disorder, mild, 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 and Tobacco use Z72.0 [place] [address] [place] [address] Nov, [facility] [id number] [place] [address] Nov, [id number] [place] [address] Nov, Wellness examination Z00.00 ; Encounter for immunization Z23 ; Screening for osteoporosis Z13.820 ; Screening for breast cancer Z12.31 and Left breast lump N63.20 [facility] [address] [place] [id number] Oct, Dental examination Z01.20 [facility] [address] [place] [address] Oct, [facility] [id number] [place] [address] Oct, [facility] [address] [place] [address] Sep, [facility] [address] [place] [address] [address] 15 Sep, 2017 [facility] [address] [address] 14 Sep, 2017 Left otitis media with effusion H65.92 ; Acute suppurative otitis media of right ear without spontaneous rupture of tympanic membrane, recurrence not specified H66.001 ; Dizziness R42 and Fatigue 780.79 [place] [address] [address] Aug, Major depressive disorder, recurrent episode, moderate F33.1 ; Generalized anxiety disorder F41.1 ; Cannabis abuse F12.10 ; PTSD (post-traumatic stress disorder) F43.10 ; Methamphetamine use disorder, severe, 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 ; Cocaine use disorder, moderate, in sustained remission F14.21 ; Opioid use disorder, moderate, in sustained remission F11.21 ; Alcohol use disorder, mild, 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 and Tobacco use Z72.0 [facility] [address] [address] Aug, Ingrown right big toenail L60.0 [place] [address] [address] Aug, [facility] [address] [address] Aug, PTSD (post-traumatic stress disorder) F43.10 [address] [address] [address] Aug, Major depressive disorder, recurrent episode, moderate F33.1 ; Generalized anxiety disorder F41.1 and Cannabis abuse F12.10 [facility] [address] [address] Jul, [facility] [address] [address] Jul, [place] [address] [address] Jul, [place] [address] [place] [address] Jul, Major depressive disorder, recurrent episode, moderate F33.1 ; Generalized anxiety disorder F41.1 and Cannabis abuse F12.10 [place] [address] [place] [address] Jul, [id number] [place] [address] Jul, [id number] [place] [address] Jul, Hyperlipidemia 272.4 [id number] [place] [address] Jul, PTSD (post-traumatic stress disorder) F43.10 [id number] [place] [address] Jul, Tobacco use Z72.0 ; Alcohol use disorder, mild, 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 ; Opioid use disorder, moderate, in sustained remission F11.21 ; Methamphetamine use disorder, severe, 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 ; Cocaine use disorder, moderate, in sustained remission F14.21 ; PTSD (post-traumatic stress disorder) F43.10 ; Major depressive disorder, recurrent episode, moderate F33.1 ; Generalized anxiety disorder F41.1 and Cannabis abuse F12.[address] [place] [address] Jul, [address] [place] [address] Jul, Dysuria R30.0 and Mixed hyperlipidemia E78.2 [id number] [place] [address] Jun, Major depressive disorder, recurrent episode, moderate F33.1 ; Generalized anxiety disorder F41.1 and Cannabis abuse F12.10 [id number] [place] [address] Jun, [facility] [address] [place] [address] Jun, Generalized anxiety disorder F41.1 ; Major [...] F14.21 and Tobacco use Z72.0 [facility] [id number] [place] [address] Jun, Major depressive disorder, recurrent episode, moderate F33.1 ; Generalized anxiety disorder F41.1 and Cannabis abuse F12.10 [facility] [id number] [place] [address] Jun, [facility] [id number] [place] [address] Jun, [facility] [id number] [place] [address] Jun, Major depressive disorder, recurrent episode, moderate F33.1 ; Generalized anxiety disorder F41.1 and Cannabis abuse F12.10 [facility] [id number] [place] [id number] Mar, Dental examination Z01.20 [facility] [id number] [place] [id number] Feb, Dental examination Z01.20 [facility] [id number] [place] [address] Mar, [facility] [address] [address] Mar, [facility] [id number] [place] [address] Feb, Hyperlipidemia 272.4 and Prediabetes 790.29 [facility] [address], [place] [address] Feb, Fatigue 780.79 and Hyperlipidemia 272.4 [facility] [id number] [place] [address] Feb, Lumbago 724.2 ; Hyperlipidemia 272.4 ; Insomnia 780.52 and Fatigue 780.79 [facility] [id number] [place] [address], [place] [address] Nov, [facility] [id number] [place] [address], [place] [address] Nov, [facility] [id number] [place] [address], [place] [address] Mar, [facility] [id number] [place] [address], [place] [address] Mar, [facility] [id number] [place] [address] Jan, [facility] [address] [place] [address] Jan, [facility] [address] [place] [address] December, [facility] [address] [place] [address] December, [facility] [address], [place] [address] Nov, [facility] [address] [place] [address] Nov, [facility] [id number] [place] [address], [place] [address] Nov, [facility] [address], [place] [address] Nov, [facility] [address], [place] [address] Nov, [facility] [place] [facility] [address] [id number] [place] [address] Nov, [facility] [place] [facility] [address] [id number] [place] [address] Oct, [facility] [place] [facility] [address] [id number] [place] [address] Oct, [facility] [place] [facility] [address] [id number] [place] [address] Oct, [facility] [place] [facility] [address] [id number] [place] [address] Oct, [facility] [place] [facility] [address] [id number] [place] [address] Oct, [facility] [place] [facility] [address] [id number] [place] [address] Oct, [facility] [place] [facility] [address] [id number] [place] [address] Oct, [facility] [place] [facility] [address] [id number] [place] [address] Oct, [facility] [place] [facility] [address] [id number] [place] [address] Oct, [facility] [place] [facility] [address] [id number] [place] [address] Oct, [facility] [place] [facility] [address] [id number] [place] [address] Oct, [facility] [place] [facility] [address] [id number] [place] [address] Oct, [facility] [place] [facility] [address] [id number] [place] [address] Oct, [facility] [place] [facility] [address] [id number] [place] [address] 24 Sep, 2013 [facility] [place] [facility] [address] [id number] [place] [address] 24 Sep, 2013 [facility] [place] [facility] [address] [id number] [place] [address] 20 Sep, 2013 [facility] [place] [facility] [address] [id number] [place] [address] 20 Sep, 2013 [facility] [place] [facility] [address] [id number] [place] [address] 20 Sep, 2013 [facility] [place] [facility] [address] [id number] [place] [address] 20 Sep, 2013 [facility] [place] [facility] [address] [id number] [place] [address] 18 Sep, 2013 [facility] [place] [facility] [address] [facility] [id number] [place] [address] 18 Sep, 2013 [facility] [place] [facility] [address] [id number] [place] [address] 14 Sep, 2013 [facility] [place] [facility] [address] [id number] [place] [address] 14 Sep, 2013 [facility] [place] [facility] [address] [facility] [id number] [place] [address] 14 Sep, 2013 [facility] [place] [facility] [address] [facility] [id number] [place] [address] 14 Sep, 2013 [facility] [place] [facility] [address] [id number] [place] [address] 14 Sep, 2013 [facility] [place] [facility] [address] [id number] [place] [address] 14 Sep, 2013 [facility] [place] [facility] [address] [id number] [place] [address] 13 Sep, 2013 [facility] [place] [facility] [address] [facility] [id number] [place] [address] 13 Sep, 2013 [facility] [place] [facility] [address] [id number] [place] [address] Sep, [facility] [address] [id number] [place] [address] Sep, [facility] [place] [facility] [address] [id number] [place] [address] Sep, [facility] [address] [id number] [place] [address] Sep, [facility] [place] [facility] [address] [id number] [place] [address] Aug, [facility] [address] [id number] [place] [address] Aug, [facility] [address] [id number] [place] [address] Aug, [facility] [address] [id number] [place] [address] Aug, [facility] [address] [id number] [place] [address] Aug, [facility] [address] [id number] [place] [address] Jul, [facility] [address] [id number] [place] [address] Jul, [facility] [place] [facility] [address] [id number] [place] [address] Jul, [facility] [place] [facility] [address] [id number] [place] [address] Jul, [facility] [place] [facility] [address] [id number] [place] [address] Jul, [facility] [place] [facility] [address] [id number] [place] [address] Jul, [facility] [place] [facility] [address] [id number] [place] [address] Jul, [facility] [place] [facility] [address] [id number] [place] [address] Jul, [facility] [place] [facility] [address] [id number] [place] [address] Jul, [facility] [place] [facility] [address] [id number] [place] [address] Jun, [facility] [place] [facility] [address] [id number] [place] [address] Jun, [facility] [place] [facility] [address] [id number] [place] [address] Jun, [facility] [place] [facility] [address] [id number] [place] [address] Jun, [facility] [place] [facility] [address] [id number] [place] [address] Jun, [facility] [place] [facility] [address] [id number], [place] [address] Jun, [facility] [place] [facility] [address] [id number] [place] [address] Jun, [facility] [place] [facility] [address] [id number], [place] [address] Jun, [facility] [place] [facility] [address] [id number], [place] [address] Jun, [facility] [place] [facility] [address] [id number], [place] [address] Jun, [facility] [place] [facility] [address] [id number], [place] [address] May, [facility] [place] [facility] [address] [id number], [place] [address] May, [facility] [place] [facility] [address] [id number], [place] [address] May, [facility] [place] [facility] [address] [id number], [place] [address] May, [facility] [place] [facility] [address] [id number] [place] [address] May, [facility] [place] [facility] [address] [id number] [place] [address] May, [facility] [place] [facility] [address] [id number] [place] [address] May, [facility] [place] [facility] [address] [id number] [place] [address] May, [facility] [place] [facility] [address] [id number] [place] [address] May, [facility] [place] [facility] [address] [id number] [place] [address] Apr, [facility] [place] [facility] [address] [id number] [place] [address] Apr, [facility] [place] [facility] [address] [id number] [place] [address] Apr, [facility] [place] [facility] [address] [id number] [place] [address] Apr, [facility] [place] [facility] [address] [id number] [place] [address] Mar, [facility] [place] [facility] [address] [id number] [place] [address] Mar, [facility] [place] [facility] [address] [id number] [place] [address] Mar, [facility] [place] [facility] [address] [id number] [place] [address] Mar, [facility] [place] [facility] [address] [id number] [place] [address] Mar, [facility] [place] [facility] [address] [id number] [place] [address] Mar, [facility] [place] [facility] [address] [id number] [place] [address] Mar, [facility] [address] [id number] [place] [address] Feb, [facility] [place] [facility] [address] [id number] [place] [address] Feb, [facility] [address] [id number] [place] [address] Feb, [facility] [address] [id number] [place] [address] Feb, [facility] [address] [id number] [place] [address] Feb, [facility] [address] [id number] [place] [address] Feb, [facility] [address] [id number] [place] [address] Feb, [facility] [address] [id number] [place] [address] Feb, [facility] [address] [id number] [place] [address] Feb, [facility] [address] [id number] [place] [address] Feb, [facility] [facility] [address] [id number] [place] [address] Feb, [facility] [facility] [address] [id number] [place] [address] Jan, [facility] [place] [facility] [address] [id number] [place] [address] Jan, [facility] [facility] [address] [id number] [place] [address] December, [facility] [facility] [address] [id number] [place] [address] December, [facility] [address] [id number] [place] [address] Nov, [facility] [place] [facility] [address] [id number] [place] [address] Nov, [facility] [address] [id number] [place] [address] Oct, [facility] [facility] [address] [id number] [place] [address] Oct, [facility] [address] [id number] [place] [address] Oct, [facility] [place] [facility] [address] [id number] [place] [address] Oct, [facility] [address] [facility] [id number] [place] [address] Sep, [facility] [place] [facility] [address] [id number] [place] [address] Sep, [facility] [address] [id number] [place] [address] Sep, [facility] [facility] [address] [facility] [id number] [place] [address] Sep, [facility] [address] [id number] [place] [address] Aug, [facility] [address] [id number], [place] [address] Aug, [facility] [place] [facility] [address] [id number] [place] [address] Jul, [facility] [place] [facility] [address] [id number] [place] [address] Jul, [facility] [facility] [address] [facility] [id number] [place] [address] Jul, [facility] [address] [id number] [place] [address] Jul, [facility] [place] [facility] [address] [id number] [place] [address] Jul, [facility] [address] [id number] [place] [address] Jul, [facility] [facility] [address] [id number] [place] [address] Jun, [facility] [facility] [address] [id number] [place] [address] Jun, [facility] [address] [id number] [place] [address] Jun, [facility] [address] [id number] [place] [address] Jun, [facility] [address] [facility] [id number] [place] [address] Jun, [facility] [address] [id number] [place] [address] May, [facility] [address] [id number] [place] [address] May, [facility] [address] [facility] [id number] [place] [address] May, [facility] [address] [id number] [place] [address] May, [facility] [address] [id number] [place] [address] May, [facility] [address] [id number] [place] [address] May, [facility] [address] [facility] [id number] [place] [address] May, [facility] [facility] [address] [id number] [place] [address] May, [facility] [address] [id number] [place] [address] Mar, [facility] [address] [id number] [place] [address] Mar, [facility] [facility] [address] [id number] [place] [address] Mar, [facility] [place] [facility] [address] [id number] [place] [address] Feb, [facility] [address] [id number] [place] [address] Feb, [facility] [facility] [address] [id number] [place] [address] Feb, [facility] [address] [id number] [place] [address] Feb, [facility] [address] [id number] [place] [address] Jan, [facility] [address] [id number] [place] [address] Jan, [facility] [address] [id number] [place] [address] Jan, [facility] [address] [id number] [place] [address] December, [facility] [address] [id number] [place] [address] Nov, [facility] [address] [id number] [place] [address] Oct, [facility] [address] [id number] [place] [address] Oct, [facility] [address] [id number] [place] [address] Oct, [facility] [address] [id number], [place] [address] Oct, [facility] [address] [id number] [place] [address] Aug, [facility] [address] [id number] [place] [address] Aug, [facility] [address] [id number] [place] [address] Aug, [facility] [address] [id number] [place] [address] Aug, [facility] [address] [id number] [place] [address] Aug, [facility] [address] [id number] [place] [address] Aug, [facility] [address] [id number] [place] [address] Aug, [facility] [address] [id number] [place] [address] Aug, [facility] [address] [id number] [place] [address] Jul, [facility] [address] [id number] [place] [address] Jun, [facility] [address] [id number] [place] [address] Jun, [facility] [address] [id number] [place] [address] 31 Jul, 2010 [facility] [address] [id number] [place] [address] 22 Jul, 2010 [facility] [address] [id number] [place] [address] 22 Jul, 2010 [facility] [address] [id number] [place] [address] 14 Jul, 2010 [facility] [address] [id number], [place] [address] 14 Jul, 2010 [facility] [address] [facility] [id number], [place] [address] 24 Jun, 2010 [facility] [address] [facility] [id number], [place] [address] May, [facility] [id number], [place] [address] Mar, [facility] [address] [facility] [id number], [place] [address] Oct, [facility] [id number], [place] [address] Aug, [facility] [address] [id number], [place] [address] 15 Jul, 2009 [facility] [id number], [place] [address] Jul, [facility] [id number], [place] [address] Jun, [facility] [id number], [place] [address] Jun, [facility] [address] [id number], [place] [address] May, [facility] [id number], [place] [address] May, [facility] [address] [id number], [place] [address] Mar, [facility] [id number], [place] [address] Mar, [facility] [address] [id number], [place] [address] 10 Oct, 2008 IMMUNIZATIONS No Known Immunizations SOCIAL HISTORY Never Assessed REASON FOR VISIT EMR[place] [place] PLAN OF CARE VITAL SIGNS MEDICATIONS Unknown [...] disc replacement L1- L5 - Dr Muhammad ([place]) Surgical History appendectomy 1983 Surgical History hysterectomy 1993 Surgical History dilatation and curettage Surgical History heart cath- Dr Shaw [address] Solano bowel and intestines sep2015 Surgical History [address] solano removed skin tag and cyst 2018 Hospitalization History Hospitalization for surgery only
--- OUTSIDE RECORDS SUMMARY | 2019-01-03 13:42 | XMS REPORT ---
Author Author Migration, Doctor Organization [facility] Address Unknown Phone Unavailable Care Team Providers Care Chargemaster Specialist Name Role Phone Migration, Doctor Unavailable Unavailable PROBLEMS Type Condition ICD9-CM Code IHU56-GI Code Onset Dates Condition Status SNOMED Code Problem Prediabetes 790.29 Active 5510471 Problem Major depressive disorder, recurrent episode, moderate F33.1 Active 864402799 Problem Mixed hyperlipidemia E78.2 Active 052416753 Problem PTSD (post-traumatic stress disorder) F43.10 Active 65552015 Problem Tobacco use Z72.0 Active 092681145 Problem Alcohol use disorder, mild, 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 Active 79960887 Problem Cigarette nicotine dependence without complication F17.210 Active 59304906 Problem Cannabis abuse F12.10 Active 48868752 Problem Acute pain of left shoulder M25.512 Active 02075478 Problem Generalized anxiety disorder F41.1 Active 01967935 Problem Opioid use disorder, moderate, in sustained remission F11.21 Active 68823113 Problem Methamphetamine use disorder, severe, 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 Active 85404776 Problem Cocaine use disorder, moderate, in sustained remission F14.21 Active 64040171 Problem GERD with esophagitis K21.0 Active 653735410 ALLERGIES No Information ENCOUNTERS Encounter Location Date Diagnosis [place] [id number] [place] [address] December, [place] [id number] [place] [address] 15 Nov, 2018 Major depressive disorder, recurrent episode, moderate F33.1 ; Cannabis abuse F12.10 ; Generalized anxiety disorder F41.1 ; Methamphetamine use disorder, severe, 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 ; Alcohol use disorder, mild, 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 ; PTSD (post-traumatic stress disorder) F43.10 and Cocaine use disorder, moderate, in sustained remission F14.21 [place] [address] [place] [address] Oct, Major depressive disorder, recurrent episode, moderate F33.1 ; Cannabis abuse F12.10 ; Generalized anxiety disorder F41.1 ; Methamphetamine use disorder, severe, 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 ; Alcohol use disorder, mild, 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 ; PTSD (post-traumatic stress disorder) F43.10 and Cocaine use disorder, moderate, in sustained remission F14.21 [facility] [id number] [place] [address] Sep, Major depressive disorder, recurrent episode, moderate F33.1 [facility] [id number] [place] [id number] Aug, [facility] [id number] [place] [address] Jul, Dysuria R30.0 [facility] [id number] [place] [address] Jul, Major depressive disorder, recurrent episode, moderate F33.1 [facility] [id number] [place] [address] Jun, Major depressive disorder, recurrent episode, moderate F33.1 [facility] [id number] [place] [address] Jun, Major depressive disorder, recurrent episode, moderate F33.1 [facility] [address] [place] [address] Jun, Acute pain of left shoulder M25.512 and Cigarette nicotine dependence without complication F17.210 [facility] [id number] [place] [address] May, [facility] [address] [address] May, Cocaine use disorder, moderate, in sustained remission F14.21 [facility] [id number] [place] [address] May, [facility] [address] [place] [address] 12 May, 2018 Dental examination Z01.20 [facility] [id number] [place] [id number] 09 May, 2018 Dental examination Z01.20 and Caries K02.9 [facility] [id number] [place] [address] May, Common wart B07.8 [facility] [id number] [place] [address] May, [facility] [id number] [place] [address] 27 Apr, 2018 Cocaine use disorder, moderate, in sustained remission F14.21 [place] [id number] [place] [address] 14 Apr, 2018 [facility] [id number] [place] [id number] 13 Apr, 2018 Dental examination Z01.20 [facility] [id number] [place] [address] [id number] 10 Mar, 2018 Encounter for dental exam and cleaning w/o abnormal findings Z01.20 [facility] [address] [place] [address] Mar, [facility] [id number] [place] [address] Feb, Cocaine use disorder, moderate, in sustained [...] depressive disorder, recurrent episode, moderate F33.1 [facility] [address] [address] Jan, Cocaine use disorder, moderate, in sustained remission F14.21 [facility] [id number] [address] Jan, Cocaine use disorder, moderate, in sustained [...] depressive disorder, recurrent episode, moderate F33.1 [facility] [address] [place] [address] Jan, Dysuria R30.0 and GERD with esophagitis K21.0 [place] [id number] [place] [address] December, Major depressive disorder, recurrent episode, moderate F33.1 [place] [address] [place] [address] December, [facility] [address] [place] [address] December, Major depressive disorder, recurrent episode, moderate F33.1 ; Generalized anxiety disorder F41.1 ; Cannabis abuse F12.10 ; PTSD (post-traumatic stress disorder) F43.10 ; Methamphetamine use disorder, severe, 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 ; Cocaine use disorder, moderate, in sustained remission F14.21 ; Opioid use disorder, moderate, in sustained remission F11.21 ; Alcohol use disorder, mild, 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 and Tobacco use Z72.0 [facility] [address] [place] [address] Nov, [facility] [address] [id number] [address] Nov, [facility] [address] [address] 04 Apr, 2018 Wellness examination Z00.00 ; Encounter for immunization Z23 ; Screening for osteoporosis Z13.820 ; Screening for breast cancer Z12.31 and Left breast lump N63.20 [facility] [id number] [place] [id number] Oct, Dental examination Z01.20 [facility] [id number] [place] [address] Oct, [facility] [address] [address] Oct, [facility] [id number] [place] [address] 16 Sep, 2017 [facility] [id number] [place] [address] 15 Sep, 2017 [facility] [id number] [place] [address] 14 Sep, 2017 Left otitis media with effusion H65.92 ; Acute suppurative otitis media of right ear without spontaneous rupture of tympanic membrane, recurrence not specified H66.001 ; Dizziness R42 and Fatigue 780.79 [facility] [id number] [place] [address] Aug, Major depressive disorder, recurrent episode, moderate [...] remission F10.11 and Tobacco use Z72.0 [facility] [id number] [place] [address] Aug, Ingrown right big toenail L60.0 [facility] [id number] [place] [address] Aug, [facility] [address] [place] [address] 15 Aug, 2017 PTSD (post-traumatic stress disorder) F43.10 [facility] [address] [place] [address] Aug, Major depressive disorder, recurrent episode, moderate F33.1 ; Generalized anxiety disorder F41.1 and Cannabis abuse F12.10 [facility] [address] [place] [address] Jul, [facility] [id number] [place] [address] Jul, [facility] [id number] [place] [address] Jul, [facility] [address] [place] [address] Jul, Major depressive disorder, recurrent episode, moderate F33.1 ; Generalized anxiety disorder F41.1 and Cannabis abuse F12.10 [facility] [address], [place] [address] Jul, [facility] [id number] [place] [address] Jul, [facility] [address], [place] [address] Jul, Hyperlipidemia 272.4 [facility] [address] [place] [address] Jul, PTSD (post-traumatic stress disorder) F43.10 [facility] [address], [place] [address] 14 Jul, 2017 Tobacco use Z72.0 ; [...] F41.1 and Cannabis abuse F12.10 [place] [address] [place] [address] Jul, [facility] [id number] [place] [address] Jul, Dysuria R30.0 and Mixed hyperlipidemia E78.2 [place] [id number] [place] [address] Jun, Major depressive disorder, recurrent episode, moderate F33.1 ; Generalized anxiety disorder F41.1 and Cannabis abuse F12.10 [place] [id number] [place] [address] Jun, [place] [id number] [place] [address] Jun, Generalized anxiety disorder F41.1 ; Major depressive disorder, recurrent episode, moderate F33.1 ; PTSD (post-traumatic stress disorder) F43.10 ; Opioid use disorder, moderate, in sustained remission F11.21 ; Cannabis abuse F12.10 ; Alcohol use disorder, mild, 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 ; Methamphetamine use disorder, severe, 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 ; Cocaine use disorder, moderate, in sustained remission F14.21 and Tobacco use Z72.0 [place] [address], [place] [address] Jun, Major depressive disorder, recurrent episode, moderate F33.1 ; Generalized anxiety disorder F41.1 and Cannabis abuse F12.10 [place] [address] [address] Jun, [place] [id number] [place] [address] Jun, [place] [address] [place] [address] Jun, Major depressive disorder, recurrent episode, moderate F33.1 ; Generalized anxiety disorder F41.1 and Cannabis abuse F12.10 [facility] [id number] [id number] Mar, Dental examination Z01.20 [facility] [id number] [place] [id number] Feb, Dental examination Z01.20 [facility] [id number] [place] [address] Mar, [facility] [id number] [place] [address] Mar, [facility] [id number] [place] [address] Feb, Hyperlipidemia 272.4 and Prediabetes 790.29 [facility] [id number] [place] [address] Feb, Fatigue 780.79 and Hyperlipidemia 272.4 [facility] [id number] [place] [address] Feb, Lumbago 724.2 ; Hyperlipidemia 272.4 ; Insomnia 780.52 and Fatigue 780.79 [facility] [id number] [place] [address] Nov, [facility] [address] [place] [address] Nov, [facility] [id number] [place] [address] Mar, [facility] [id number] [place] [address] Mar, [facility] [id number] [place] [address] Jan, [facility] [id number] [place] [address] Jan, [facility] [id number] [place] [address] December, [facility] [place] [facility] [address] [id number] [place] [address] December, [facility] [place] [facility] [address] [id number] [place] [address] Nov, [facility] [place] [facility] [address] [id number] [place] [address] Nov, [facility] [place] [facility] [address] [id number] [place] [address] Nov, [facility] [place] [facility] [address] [id number] [place] [address] Nov, [facility] [place] [facility] [address] [id number] [place] [address] Nov, [facility] [place] [facility] [address] [id number] [place] [address] Nov, [facility] [place] [facility] [address] [id number] [place] [address] Oct, [facility] [place] [facility] [address] [id number] [place] [address] 31 Oct, 2013 [facility] [place] [facility] [address] [id number] [place] [address] Oct, [facility] [place] [facility] [address] [id number] [place] [address] 20 Oct, 2013 [facility] [place] [facility] [address] [id number] [place] [address] 19 Oct, 2013 [facility] [place] [facility] [address] [id number] [place] [address] Oct, [facility] [place] [facility] [address] [id number] [place] [address] Oct, [facility] [place] [facility] [address] [id number] [place] [address] Oct, [facility] [place] [facility] [address] [id number] [place] [address] Oct, [facility] [place] [facility] [address] [id number] [place] [address] Oct, [facility] [place] [facility] [address] [id number] [place] [address] Oct, [facility] [place] [facility] [address] [facility] [id number] [place] [address] Oct, [facility] [place] [facility] [address] [id number] [place] [address] Oct, [facility] [place] [facility] [address] [id number] [place] [address] 24 Sep, 2013 [facility] [place] [facility] [address] [facility] [id number] [place] [address] 24 Sep, 2013 [facility] [place] [facility] [address] [facility] [id number] [place] [address] 20 Sep, 2013 [facility] [place] [facility] [address] [facility] [id number] [place] [address] 20 Sep, 2013 [facility] [place] [facility] [address] [facility] [id number] [place] [address] 20 Sep, 2013 [facility] [place] [facility] [address] [facility] [id number] [place] [address] 20 Sep, 2013 [facility] [place] [facility] [address] [facility] [id number] [place] [address] 18 Sep, 2013 [facility] [place] [facility] [address] [facility] [id number] [place] [address] 18 Sep, 2013 [facility] [place] [facility] [address] [facility] [id number] [place] [address] 14 Sep, 2013 [facility] [place] [facility] [address] [facility] [id number] [place] [address] 14 Sep, 2013 [facility] [place] [facility] [address] [facility] [id number] [place] [address] 14 Sep, 2013 [facility] [place] [facility] [address] [id number] [place] [address] 14 Sep, 2013 [facility] [place] [facility] [address] [id number] [place] [address] 14 Sep, 2013 [facility] [place] [facility] [address] [id number] [place] [address] 14 Sep, 2013 [facility] [place] [facility] [address] [id number] [place] [address] Sep, [facility] [place] [facility] [address] [id number] [place] [address] Sep, [facility] [place] [facility] [address] [id number] [place] [address] Sep, [facility] [place] [facility] [address] [id number] [place] [address] Sep, [facility] [place] [facility] [address] [id number] [place] [address] Sep, [facility] [place] [facility] [address] [id number] [place] [address] Sep, [facility] [place] [facility] [address] [id number] [place] [address] Aug, [facility] [place] [facility] [address] [id number] [place] [address] Aug, [facility] [place] [facility] [address] [id number] [place] [address] Aug, [facility] [place] [facility] [address] [id number] [place] [address] Aug, [facility] [place] [facility] [address] [id number] [place] [address] Aug, [facility] [place] [facility] [address] [id number] [place] [address] Jul, [facility] [place] [facility] [address] [id number] [place] [address] Jul, [facility] [address] [id number] [place] [address] Jul, [facility] [place] [facility] [address] [id number] [place] [address] Jul, [facility] [address] [id number] [place] [address] Jul, [facility] [place] [facility] [address] [id number] [place] [address] Jul, [facility] [address] [id number] [place] [address] Jul, [facility] [address] [id number] [place] [address] Jul, [facility] [place] [facility] [address] [id number] [place] [address] Jul, [facility] [address] [id number] [place] [address] Jun, [facility] [place] [facility] [address] [id number] [place] [address] Jun, [facility] [address] [id number] [place] [address] Jun, [facility] [place] [facility] [address] [id number] [place] [address] Jun, [facility] [place] [facility] [address] [id number] [place] [address] Jun, [facility] [place] [facility] [address] [id number] [place] [address] Jun, [facility] [place] [facility] [address] [id number] [place] [address] Jun, [facility] [place] [facility] [address] [id number] [place] [address] Jun, [facility] [place] [facility] [address] [id number] [place] [address] Jun, [facility] [place] [facility] [address] [id number] [place] [address] Jun, [facility] [place] [facility] [address] [id number] [place] [address] May, [facility] [place] [facility] [address] [id number] [place] [address] May, [facility] [place] [facility] [address] [id number] [place] [address] May, [facility] [place] [facility] [address] [id number] [place] [address] May, [facility] [place] [facility] [address] [id number] [place] [address] May, [facility] [place] [facility] [address] [id number], [place] [address] May, [facility] [place] [facility] [address] [id number] [place] [address] May, [facility] [place] [facility] [address] [id number], [place] [address] May, [facility] [place] [facility] [address] [id number], [place] [address] May, [facility] [place] [facility] [address] [id number], [place] [address] 26 Apr, 2013 [facility] [place] [facility] [address] [id number] [place] [address] 16 Apr, 2013 [facility] [place] [facility] [address] [id number], [place] [address] 12 Apr, 2013 [facility] [place] [facility] [address] [id number] [place] [address] 06 Apr, 2013 [facility] [place] [facility] [address] [id number] [place] [address] Mar, [facility] [address] [id number] [place] [address] Mar, [facility] [place] [facility] [address] [id number] [place] [address] Mar, [facility] [place] [facility] [address] [id number] [place] [address] Mar, [facility] [place] [facility] [address] [id number] [place] [address] Mar, [facility] [place] [facility] [address] [id number] [place] [address] Mar, [facility] [place] [facility] [address] [id number] [place] [address] Mar, [facility] [place] [facility] [address] [id number] [place] [address] Feb, [facility] [place] [facility] [address] [id number] [place] [address] Feb, [facility] [place] [facility] [address] [id number] [place] [address] Feb, [facility] [place] [facility] [address] [id number] [place] [address] Feb, [facility] [place] [facility] [address] [id number] [place] [address] Feb, [facility] [place] [facility] [address] [id number] [place] [address] Feb, [facility] [place] [facility] [address] [id number] [place] [address] Feb, [facility] [place] [facility] [address] [id number] [place] [address] Feb, [facility] [place] [facility] [address] [id number] [place] [address] Feb, [facility] [place] [facility] [address] [id number] [place] [address] Feb, [facility] [address] [id number] [place] [address] Feb, [facility] [place] [facility] [address] [id number] [place] [address] Jan, [facility] [place] [facility] [address] [id number] [place] [address] Jan, [facility] [address] [id number] [place] [address] December, [facility] [place] [facility] [address] [id number] [place] [address] December, [facility] [address] [id number] [place] [address] Nov, [facility] [address] [id number] [place] [address] Nov, [facility] [address] [id number] [place] [address] Oct, [facility] [address] [id number] [place] [address] Oct, [facility] [place] [facility] [address] [id number] [place] [address] Oct, [facility] [facility] [address] [id number] [place] [address] Oct, [facility] [address] [id number] [place] [address] Sep, [facility] [place] [facility] [address] [id number] [place] [address] Sep, [facility] [place] [facility] [address] [id number] [place] [address] Sep, [facility] [place] [facility] [address] [id number], [place] [address] Sep, [facility] [address] [id number] [place] [address] Aug, [facility] [place] [facility] [address] [id number] [place] [address] Aug, [facility] [place] [facility] [address] [id number] [place] [address] Jul, [facility] [place] [facility] [address] [id number] [place] [address] Jul, [facility] [place] [facility] [address] [id number] [place] [address] Jul, [facility] [place] [facility] [address] [id number] [place] [address] Jul, [facility] [place] [facility] [address] [id number] [place] [address] Jul, [facility] [place] [facility] [address] [id number] [place] [address] Jul, [facility] [place] [facility] [address] [id number] [place] [address] Jun, [facility] [place] [facility] [address] [id number] [place] [address] Jun, [facility] [place] [facility] [address] [id number], [place] [address] Jun, [facility] [place] [facility] [address] [id number], [place] [address] Jun, [facility] [place] [facility] [address] [id number], [place] [address] Jun, [facility] [place] [facility] [address] [id number] [place] [address] May, [facility] [place] [facility] [address] [id number] [place] [address] May, [facility] [place] [facility] [address] [id number] [place] [address] May, [facility] [place] [facility] [address] [id number] [place] [address] May, [facility] [place] [facility] [address] [id number] [place] [address] May, [facility] [place] [facility] [address] [id number] [place] [address] May, [facility] [place] [facility] [address] [id number] [place] [address] May, [facility] [place] [facility] [address] [id number] [place] [address] May, [facility] [place] [facility] [address] [id number] [place] [address] Mar, [facility] [place] [facility] [address] [id number] [place] [address] Mar, [facility] [place] [facility] [address] [id number] [place] [address] Mar, [facility] [place] [facility] [address] [id number] [place] [address] Feb, [facility] [place] [facility] [address] [id number] [place] [address] Feb, [facility] [place] [facility] [address] [id number] [place] [address] Feb, [facility] [place] [facility] [address] [id number] [place] [address] Feb, [facility] [place] [facility] [address] [id number] [place] [address] Jan, [facility] [place] [facility] [address] [id number] [place] [address] Jan, [facility] [place] [facility] [address] [id number] [place] [address] Jan, [facility] [address] [id number] [place] [address] December, [facility] [place] [facility] [address] [id number] [place] [address] Nov, [facility] [place] [facility] [address] [id number] [place] [address] Oct, [facility] [place] [facility] [address] [id number] [place] [address] Oct, [facility] [place] [facility] [address] [id number] [place] [address] Oct, [facility] [place] [facility] [address] [id number] [place] [address] Oct, [facility] [place] [facility] [address] [id number] [place] [address] Aug, [facility] [place] [facility] [address] [id number] [place] [address] Aug, [facility] [place] [facility] [address] [id number] [place] [address] Aug, [facility] [place] [facility] [address] [id number] [place] [address] Aug, [facility] [place] [facility] [address] [id number] [place] [address] Aug, [facility] [place] [facility] [address] [id number], [place] [address] Aug, [facility] [place] [facility] [address] [id number] [place] [address] Aug, [facility] [place] [facility] [address] [id number] [place] [address] Aug, [facility] [place] [facility] [address] [id number] [place] [address] Jul, [facility] [place] [facility] [address] [id number] [place] [address] 29 Jun, 2011 [facility] [address] [id number] [place] [address] 29 Jun, 2011 [facility] [place] [facility] [address] [id number] [place] [address] 31 Jul, 2010 [facility] [place] [facility] [address] [id number] [place] [address] 22 Jul, 2010 [facility] [place] [facility] [address] [id number] [place] [address] 22 Jul, 2010 [facility] [place] [facility] [address] [id number] [place] [address] 14 Jul, 2010 [facility] [place] [facility] [address] [id number] [place] [address] 14 Jul, 2010 [facility] [place] [facility] [address] [id number] [place] [address] 24 Jun, 2010 [facility] [place] [facility] [address] [id number] [place] [address] May, [facility] [place] [facility] [address] [id number] [place] [address] Mar, [facility] [place] [facility] [address] [facility] [id number] [place] [address] Oct, [facility] [place] [facility] [address] [id number] [place] [address] Aug, [facility] [place] [facility] [address] [id number] [place] [address] 15 Jul, 2009 [facility] [place] [facility] [address] [id number] [place] [address] Jul, [facility] [place] [facility] [address] [id number] [place] [address] Jun, [facility] [place] [facility] [address] [facility] [id number] [place] [address] Jun, [facility] [place] [facility] [address] [facility] [id number], [place] [address] May, [facility] [address] [id number], [place] [address] May, [facility] [address] [facility] [id number], [place] [address] Mar, [facility] [address] [facility] [id number], [place] [address] Mar, [facility] [address] [facility] [id number], [place] [address] Oct, IMMUNIZATIONS No Known Immunizations SOCIAL HISTORY Never Assessed REASON FOR VISIT [facility] [place] PLAN OF CARE VITAL SIGNS MEDICATIONS Unknown [...] disc replacement L1- L5 - Dr Muhammad ([place]) Surgical History appendectomy 1983 Surgical History hysterectomy 1993 Surgical History dilatation and curettage Surgical History heart cath- Dr Shaw [address] Solano bowel and intestines sep2015 Surgical History Dr solano removed skin tag and cyst 2018 Hospitalization History Hospitalization for surgery only
--- OUTSIDE RECORDS SUMMARY | 2019-01-03 13:43 | XMS REPORT ---
Author Author Migration, Doctor Organization [facility] Address Unknown Phone Unavailable Care Team Providers Care Line Fisher Name Role Phone Migration, Doctor Unavailable Unavailable PROBLEMS Type Condition ICD9-CM Code NTA98-BF Code Onset Dates Condition Status SNOMED Code Problem Prediabetes 790.29 Active 0222273 Problem Major depressive disorder, recurrent episode, moderate F33.1 Active 498740539 Problem Mixed hyperlipidemia E78.2 Active 689073640 Problem PTSD (post-traumatic stress disorder) F43.10 Active 62492832 Problem Tobacco use Z72.0 Active 515341807 Problem Alcohol use disorder, mild, 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 Active 85030979 Problem Cigarette nicotine dependence without complication F17.210 Active 79145502 Problem Cannabis abuse F12.10 Active 95872632 Problem Acute pain of left shoulder M25.512 Active 08634122 Problem Generalized anxiety disorder F41.1 Active 58738469 Problem Opioid use disorder, moderate, in sustained remission F11.21 Active 59853494 Problem Methamphetamine use disorder, severe, 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 Active 94707739 Problem Cocaine use disorder, moderate, in sustained remission F14.21 Active 97485787 Problem GERD with esophagitis K21.0 Active 739654567 ALLERGIES No Information ENCOUNTERS Encounter Location Date Diagnosis [place] [id number] [place] [id number] December, [place] [address] [place] [id number] 15 Nov, 2018 Major depressive disorder, recurrent episode, moderate F33.1 ; Cannabis abuse F12.10 ; Generalized anxiety disorder F41.1 ; Methamphetamine use disorder, severe, 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 ; Alcohol use disorder, mild, 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 ; PTSD (post-traumatic stress disorder) F43.10 and Cocaine use disorder, moderate, in sustained remission F14.21 [place] [address] [place] [address] Oct, Major depressive disorder, recurrent episode, moderate F33.1 ; Cannabis abuse F12.10 ; Generalized anxiety disorder F41.1 ; Methamphetamine use disorder, severe, 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 ; Alcohol use disorder, mild, 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 ; PTSD (post-traumatic stress disorder) F43.10 and Cocaine use disorder, moderate, in sustained remission F14.21 [facility] [address] [place] [address] Sep, Major depressive disorder, recurrent episode, moderate F33.1 [facility] [address] [place] [id number] Aug, [facility] [id number] [place] [address] Jul, Dysuria R30.0 [facility] [id number] [place] [address] Jul, Major depressive disorder, recurrent episode, moderate F33.1 [facility] [id number] [place] [address] Jun, Major depressive disorder, recurrent episode, moderate F33.1 [facility] [id number] [place] [address] Jun, Major depressive disorder, recurrent episode, moderate F33.1 [facility] [address] [place] [address] Jun, Acute pain of left shoulder M25.512 and Cigarette nicotine dependence without complication F17.210 [facility] [id number] [place] [address] May, [facility] [address] [address] May, Cocaine use disorder, moderate, in sustained remission F14.21 [facility] [id number] [place] [address] May, [facility] [address] [place] [address] 12 May, 2018 Dental examination Z01.20 [facility] [address] [place] [id number] May, 2018 Dental examination Z01.20 and Caries K02.9 [facility] [address] [place] [address] May, Common wart B07.8 [facility] [id number] [place] [address] May, [facility] [id number] [place] [address] 27 Apr, 2018 Cocaine use disorder, moderate, in sustained remission F14.21 [place] [id number] [place] [address] 14 Apr, 2018 [facility] [id number] [place] [address] [id number] 13 Apr, 2018 Dental examination Z01.20 [facility] [id number] [place] [address] [id number] 10 Mar, 2018 Encounter for dental exam and cleaning w/o abnormal findings Z01.20 [facility] [address] [place] [address] Mar, [facility] [id number] [place] [address] Feb, Cocaine use disorder, moderate, in sustained remission F14.21 ; Opioid use disorder, moderate, in sustained remission F11.21 ; Alcohol use disorder, mild, 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 ; Tobacco use Z72.0 ; PTSD (post-traumatic stress disorder) F43.10 ; Methamphetamine use disorder, severe, 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 ; Generalized anxiety disorder F41.1 ; Cannabis abuse F12.10 and Major depressive disorder, recurrent episode, moderate F33.1 [facility] [address] [address] Jan, Cocaine use disorder, moderate, in sustained remission F14.21 [facility] [id number] [address] Jan, Cocaine use disorder, moderate, in sustained remission F14.21 ; Opioid use disorder, moderate, in sustained remission F11.21 ; Alcohol use disorder, mild, 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 ; Tobacco use Z72.0 ; PTSD (post-traumatic stress disorder) F43.10 ; Methamphetamine use disorder, severe, 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 ; Generalized anxiety disorder F41.1 ; Cannabis abuse F12.10 and Major depressive disorder, recurrent episode, moderate F33.1 [facility] [address] [place] [address] Jan, Dysuria R30.0 and GERD with esophagitis K21.0 [place] [id number] [place] [address] December, Major depressive disorder, recurrent episode, moderate F33.1 [place] [address] [place] [address] December, [facility] [address] [place] [address] December, Major depressive disorder, recurrent episode, moderate F33.1 ; Generalized anxiety disorder F41.1 ; Cannabis abuse F12.10 ; PTSD (post-traumatic stress disorder) F43.10 ; Methamphetamine use disorder, severe, 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 ; Cocaine use disorder, moderate, in sustained remission F14.21 ; Opioid use disorder, moderate, in sustained remission F11.21 ; Alcohol use disorder, mild, 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 and Tobacco use Z72.0 [facility] [address] [place] [address] Nov, [facility] [address] [id number] [address] Nov, [facility] [address] [address] 04 Apr, 2018 Wellness examination Z00.00 ; Encounter for immunization Z23 ; Screening for osteoporosis Z13.820 ; Screening for breast cancer Z12.31 and Left breast lump N63.20 [facility] [id number] [place] [address] [id number] Oct, Dental examination Z01.20 [facility] [id number] [place] [address] Oct, [facility] [address] [address] Oct, [facility] [id number] [place] [address] 16 Sep, 2017 [facility] [id number] [place] [address] 15 Sep, 2017 [facility] [id number] [place] [address] 14 Sep, 2017 Left otitis media with effusion H65.92 ; Acute suppurative otitis media of right ear without spontaneous rupture of tympanic membrane, recurrence not specified H66.001 ; Dizziness R42 and Fatigue 780.79 [facility] [id number] [place] [address] Aug, Major depressive disorder, recurrent episode, moderate [...] Z72.0 [facility] [id number] [place] [address] Aug, Ingrown right big toenail L60.0 [facility] [id number] [place] [address] Aug, [facility] [address] [place] [address] 15 Aug, 2017 PTSD (post-traumatic stress disorder) F43.10 [facility] [address] [place] [address] Aug, Major depressive disorder, recurrent episode, moderate F33.1 ; Generalized anxiety disorder F41.1 and Cannabis abuse F12.10 [facility] [address] [place] [address] Jul, [facility] [id number] [place] [address] Jul, [facility] [id number] [place] [address] Jul, [facility] [address] [place] [address] Jul, Major depressive disorder, recurrent episode, moderate F33.1 ; Generalized anxiety disorder F41.1 and Cannabis abuse F12.10 [facility] [address] [address] Jul, [facility] [id number] [place] [address] Jul, [facility] [address] [address] Jul, Hyperlipidemia 272.4 [facility] [address] [place] [address] Jul, PTSD (post-traumatic stress disorder) F43.10 [facility] [address] [address] 14 Jul, 2017 Tobacco use Z72.0 ; [...] anxiety disorder F41.1 and Cannabis abuse F12.10 [place] [address] [place] [address] Jul, [facility] [id number] [place] [address] Jul, Dysuria R30.0 and Mixed hyperlipidemia E78.2 [place] [id number] [place] [address] Jun, Major depressive disorder, recurrent episode, moderate F33.1 ; Generalized anxiety disorder F41.1 and Cannabis abuse F12.10 [place] [id number] [place] [address] Jun, [place] [id number] [place] [address] Jun, Generalized anxiety disorder F41.1 ; Major depressive disorder, recurrent episode, moderate F33.1 ; PTSD (post-traumatic stress disorder) F43.10 ; Opioid use disorder, moderate, in sustained remission F11.21 ; Cannabis abuse F12.10 ; Alcohol use disorder, mild, 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 ; Methamphetamine use disorder, severe, 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 ; Cocaine use disorder, moderate, in sustained remission F14.21 and Tobacco use Z72.0 [place] [address] [address] Jun, Major depressive disorder, recurrent episode, moderate F33.1 ; Generalized anxiety disorder F41.1 and Cannabis abuse F12.10 [place] [address] [address] Jun, [place] [id number] [place] [address] Jun, [place] [address] [place] [address] Jun, Major depressive disorder, recurrent episode, moderate F33.1 ; Generalized anxiety disorder F41.1 and Cannabis abuse F12.10 [facility] [id number] [id number] Mar, Dental examination Z01.20 [facility] [id number] [place] [address] [id number] Feb, Dental examination Z01.20 [facility] [id number] [place] [address] Mar, [facility] [id number] [place] [address] Mar, [facility] [id number] [place] [address] Feb, Hyperlipidemia 272.4 and Prediabetes 790.29 [facility] [id number] [place] [address] Feb, Fatigue 780.79 and Hyperlipidemia 272.4 [facility] [id number] [place] [address] Feb, Lumbago 724.2 ; Hyperlipidemia 272.4 ; Insomnia 780.52 and Fatigue 780.79 [facility] [id number] [place] [address] Nov, [facility] [address] [place] [address] Nov, [facility] [id number] [place] [address] Mar, [facility] [id number] [place] [address] Mar, [facility] [id number] [place] [address] Jan, [facility] [id number] [place] [address] Jan, [facility] [id number] [place] [address] December, [facility] [place] [facility] [address] [id number] [place] [address] December, [facility] [place] [facility] [address] [id number] [place] [address] Nov, [facility] [place] [facility] [address] [id number] [place] [address] Nov, [facility] [place] [facility] [address] [id number] [place] [address] Nov, [facility] [place] [facility] [address] [id number] [place] [address] Nov, [facility] [place] [facility] [address] [id number] [place] [address] Nov, [facility] [place] [facility] [address] [id number] [place] [address] Nov, [facility] [place] [facility] [address] [id number] [place] [address] Oct, [facility] [place] [facility] [address] [id number] [place] [address] 31 Oct, 2013 [facility] [place] [facility] [address] [id number] [place] [address] Oct, [facility] [place] [facility] [address] [id number] [place] [address] 20 Oct, 2013 [facility] [place] [facility] [address] [id number] [place] [address] 19 Oct, 2013 [facility] [place] [facility] [address] [id number] [place] [address] Oct, [facility] [place] [facility] [address] [id number] [place] [address] Oct, [facility] [place] [facility] [address] [id number] [place] [address] Oct, [facility] [place] [facility] [address] [id number] [place] [address] Oct, [facility] [place] [facility] [address] [id number] [place] [address] Oct, [facility] [place] [facility] [address] [id number] [place] [address] Oct, [facility] [place] [facility] [address] [facility] [id number] [place] [address] Oct, [facility] [place] [facility] [address] [id number] [place] [address] Oct, [facility] [place] [facility] [address] [id number] [place] [address] 24 Sep, 2013 [facility] [place] [facility] [address] [facility] [id number] [place] [address] 24 Sep, 2013 [facility] [place] [facility] [address] [facility] [id number] [place] [address] 20 Sep, 2013 [facility] [place] [facility] [address] [facility] [id number] [place] [address] 20 Sep, 2013 [facility] [place] [facility] [address] [facility] [id number] [place] [address] 20 Sep, 2013 [facility] [place] [facility] [address] [facility] [id number] [place] [address] 20 Sep, 2013 [facility] [place] [facility] [address] [facility] [id number] [place] [address] 18 Sep, 2013 [facility] [place] [facility] [address] [facility] [id number] [place] [address] 18 Sep, 2013 [facility] [place] [facility] [address] [facility] [id number] [place] [address] 14 Sep, 2013 [facility] [place] [facility] [address] [facility] [id number] [place] [address] 14 Sep, 2013 [facility] [place] [facility] [address] [facility] [id number] [place] [address] 14 Sep, 2013 [facility] [place] [facility] [address] [id number] [place] [address] 14 Sep, 2013 [facility] [place] [facility] [address] [id number] [place] [address] 14 Sep, 2013 [facility] [place] [facility] [address] [id number] [place] [address] 14 Sep, 2013 [facility] [place] [facility] [address] [id number] [place] [address] Sep, [facility] [place] [facility] [address] [id number] [place] [address] Sep, [facility] [place] [facility] [address] [id number] [place] [address] Sep, [facility] [place] [facility] [address] [id number] [place] [address] Sep, [facility] [place] [facility] [address] [id number] [place] [address] Sep, [facility] [place] [facility] [address] [id number] [place] [address] Sep, [facility] [place] [facility] [address] [id number] [place] [address] Aug, [facility] [place] [facility] [address] [id number] [place] [address] Aug, [facility] [place] [facility] [address] [id number] [place] [address] Aug, [facility] [place] [facility] [address] [id number] [place] [address] Aug, [facility] [place] [facility] [address] [id number] [place] [address] Aug, [facility] [place] [facility] [address] [id number] [place] [address] Jul, [facility] [place] [facility] [address] [id number] [place] [address] Jul, [facility] [address] [id number] [place] [address] Jul, [facility] [place] [facility] [address] [id number] [place] [address] Jul, [facility] [address] [id number] [place] [address] Jul, [facility] [place] [facility] [address] [id number] [place] [address] Jul, [facility] [address] [id number] [place] [address] Jul, [facility] [address] [id number] [place] [address] Jul, [facility] [place] [facility] [address] [id number] [place] [address] Jul, [facility] [address] [id number] [place] [address] Jun, [facility] [place] [facility] [address] [id number] [place] [address] Jun, [facility] [address] [id number] [place] [address] Jun, [facility] [place] [facility] [address] [id number] [place] [address] Jun, [facility] [place] [facility] [address] [id number] [place] [address] Jun, [facility] [place] [facility] [address] [id number] [place] [address] Jun, [facility] [place] [facility] [address] [id number] [place] [address] Jun, [facility] [place] [facility] [address] [id number] [place] [address] Jun, [facility] [place] [facility] [address] [id number] [place] [address] Jun, [facility] [place] [facility] [address] [id number] [place] [address] Jun, [facility] [place] [facility] [address] [id number] [place] [address] May, [facility] [place] [facility] [address] [id number] [place] [address] May, [facility] [place] [facility] [address] [id number] [place] [address] May, [facility] [place] [facility] [address] [id number] [place] [address] May, [facility] [place] [facility] [address] [id number] [place] [address] May, [facility] [place] [facility] [address] [id number], [place] [address] May, [facility] [place] [facility] [address] [id number] [place] [address] May, [facility] [place] [facility] [address] [id number], [place] [address] May, [facility] [place] [facility] [address] [id number], [place] [address] May, [facility] [place] [facility] [address] [id number], [place] [address] 26 Apr, 2013 [facility] [place] [facility] [address] [id number] [place] [address] 16 Apr, 2013 [facility] [place] [facility] [address] [id number], [place] [address] 12 Apr, 2013 [facility] [place] [facility] [address] [id number] [place] [address] 06 Apr, 2013 [facility] [place] [facility] [address] [id number] [place] [address] Mar, [facility] [address] [id number] [place] [address] Mar, [facility] [place] [facility] [address] [id number] [place] [address] Mar, [facility] [place] [facility] [address] [id number] [place] [address] Mar, [facility] [place] [facility] [address] [id number] [place] [address] Mar, [facility] [place] [facility] [address] [id number] [place] [address] Mar, [facility] [place] [facility] [address] [id number] [place] [address] Mar, [facility] [place] [facility] [address] [id number] [place] [address] Feb, [facility] [place] [facility] [address] [id number] [place] [address] Feb, [facility] [place] [facility] [address] [id number] [place] [address] Feb, [facility] [place] [facility] [address] [id number] [place] [address] Feb, [facility] [place] [facility] [address] [id number] [place] [address] Feb, [facility] [place] [facility] [address] [id number] [place] [address] Feb, [facility] [place] [facility] [address] [id number] [place] [address] Feb, [facility] [place] [facility] [address] [id number] [place] [address] Feb, [facility] [place] [facility] [address] [id number] [place] [address] Feb, [facility] [place] [facility] [address] [id number] [place] [address] Feb, [facility] [address] [id number] [place] [address] Feb, [facility] [place] [facility] [address] [id number] [place] [address] Jan, [facility] [place] [facility] [address] [id number] [place] [address] Jan, [facility] [address] [id number] [place] [address] December, [facility] [place] [facility] [address] [id number] [place] [address] December, [facility] [address] [id number] [place] [address] Nov, [facility] [address] [id number] [place] [address] Nov, [facility] [address] [id number] [place] [address] Oct, [facility] [address] [id number] [place] [address] Oct, [facility] [place] [facility] [address] [id number] [place] [address] Oct, [facility] [facility] [place] [facility] [address] [id number] [place] [address] Oct, [facility] [place] [facility] [address] [id number] [place] [address] Sep, [facility] [place] [facility] [address] [id number] [place] [address] Sep, [facility] [place] [facility] [address] [id number] [place] [address] Sep, [facility] [place] [facility] [address] [id number], [place] [address] Sep, [facility] [address] [id number] [place] [address] Aug, [facility] [place] [facility] [address] [id number] [place] [address] Aug, [facility] [place] [facility] [address] [id number] [place] [address] Jul, [facility] [place] [facility] [address] [id number] [place] [address] Jul, [facility] [place] [facility] [address] [id number] [place] [address] Jul, [facility] [place] [facility] [address] [id number] [place] [address] Jul, [facility] [place] [facility] [address] [id number] [place] [address] Jul, [facility] [place] [facility] [address] [id number] [place] [address] Jul, [facility] [place] [facility] [address] [id number] [place] [address] Jun, [facility] [place] [facility] [address] [id number] [place] [address] Jun, [facility] [place] [facility] [address] [id number], [place] [address] Jun, [facility] [place] [facility] [address] [id number], [place] [address] Jun, [facility] [place] [facility] [address] [id number], [place] [address] Jun, [facility] [place] [facility] [address] [id number] [place] [address] May, [facility] [place] [facility] [address] [id number] [place] [address] May, [facility] [place] [facility] [address] [id number] [place] [address] May, [facility] [place] [facility] [address] [id number] [place] [address] May, [facility] [place] [facility] [address] [id number] [place] [address] May, [facility] [place] [facility] [address] [id number] [place] [address] May, [facility] [place] [facility] [address] [id number] [place] [address] May, [facility] [place] [facility] [address] [id number] [place] [address] May, [facility] [place] [facility] [address] [id number] [place] [address] Mar, [facility] [place] [facility] [address] [id number] [place] [address] Mar, [facility] [place] [facility] [address] [id number] [place] [address] Mar, [facility] [place] [facility] [address] [id number] [place] [address] Feb, [facility] [place] [facility] [address] [id number] [place] [address] Feb, [facility] [place] [facility] [address] [id number] [place] [address] Feb, [facility] [place] [facility] [address] [id number] [place] [address] Feb, [facility] [place] [facility] [address] [id number] [place] [address] Jan, [facility] [place] [facility] [address] [id number] [place] [address] Jan, [facility] [place] [facility] [address] [id number] [place] [address] Jan, [facility] [address] [id number] [place] [address] December, [facility] [place] [facility] [address] [id number] [place] [address] Nov, [facility] [place] [facility] [address] [id number] [place] [address] Oct, [facility] [place] [facility] [address] [id number] [place] [address] Oct, [facility] [place] [facility] [address] [id number] [place] [address] Oct, [facility] [place] [facility] [address] [id number] [place] [address] Oct, [facility] [place] [facility] [address] [id number] [place] [address] Aug, [facility] [place] [facility] [address] [id number] [place] [address] Aug, [facility] [place] [facility] [address] [id number] [place] [address] Aug, [facility] [place] [facility] [address] [id number] [place] [address] Aug, [facility] [place] [facility] [address] [id number] [place] [address] Aug, [facility] [place] [facility] [address] [id number], [place] [address] Aug, [facility] [place] [facility] [address] [id number] [place] [address] Aug, [facility] [place] [facility] [address] [id number] [place] [address] Aug, [facility] [place] [facility] [address] [id number] [place] [address] Jul, [facility] [place] [facility] [address] [id number] [place] [address] 29 Jun, 2011 [facility] [address] [id number] [place] [address] 29 Jun, 2011 [facility] [place] [facility] [address] [id number] [place] [address] 31 Jul, 2010 [facility] [place] [facility] [address] [id number] [place] [address] 22 Jul, 2010 [facility] [place] [facility] [address] [id number] [place] [address] 22 Jul, 2010 [facility] [place] [facility] [address] [id number] [place] [address] 14 Jul, 2010 [facility] [place] [facility] [address] [id number] [place] [address] 14 Jul, 2010 [facility] [place] [facility] [address] [id number] [place] [address] 24 Jun, 2010 [facility] [place] [facility] [address] [id number] [place] [address] May, [facility] [place] [facility] [address] [id number] [place] [address] Mar, [facility] [place] [facility] [address] [facility] [id number] [place] [address] Oct, [facility] [place] [facility] [address] [id number] [place] [address] Aug, [facility] [place] [facility] [address] [id number] [place] [address] 15 Jul, 2009 [facility] [place] [facility] [address] [id number] [place] [address] Jul, [facility] [place] [facility] [address] [id number] [place] [address] Jun, [facility] [place] [facility] [address] [facility] [id number] [place] [address] Jun, [facility] [place] [facility] [address] [facility] [id number], [place] [address] May, [facility] [address] [id number], [place] [address] May, [facility] [address] [facility] [id number], [place] [address] Mar, [facility] [address] [facility] [id number], [place] [address] Mar, [facility] [address] [facility] [id number], [place] [address] Oct, IMMUNIZATIONS No Known Immunizations SOCIAL HISTORY Never Assessed REASON FOR VISIT [facility] [place] PLAN OF CARE VITAL SIGNS MEDICATIONS Unknown [...] disc replacement L1- L5 - Dr Muhammad ([place]) Surgical History appendectomy 1983 Surgical History hysterectomy 1993 Surgical History dilatation and curettage Surgical History heart cath- Dr Shaw [address] Solano bowel and intestines sep2015 Surgical History Dr solano removed skin tag and cyst 2018 Hospitalization History Hospitalization for surgery only
--- OUTSIDE RECORDS SUMMARY | 2019-01-03 13:44 | XMS REPORT ---
Author Author Migration, Doctor Organization [facility] Address Unknown Phone Unavailable Care Team Providers Care Bat Boy/Girl Name Role Phone Migration, Doctor Unavailable Unavailable PROBLEMS Type Condition ICD9-CM Code [id number] Code Onset Dates Condition Status SNOMED Code Problem Prediabetes 790.29 Active 2893833 Problem Major depressive disorder, recurrent episode, moderate F33.1 Active 664273293 Problem Mixed hyperlipidemia E78.2 Active 085489097 Problem PTSD (post-traumatic stress disorder) F43.10 Active 23924984 Problem Tobacco use Z72.0 Active 628144148 Problem Alcohol use disorder, mild, 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 Active 58959430 Problem Cigarette nicotine dependence without complication F17.210 Active 66345258 Problem Cannabis abuse F12.10 Active 37005222 Problem Acute pain of left shoulder M25.512 Active 84531570 Problem Generalized anxiety disorder F41.1 Active 61508019 Problem Opioid use disorder, moderate, in sustained remission F11.21 Active 81769387 Problem Methamphetamine use disorder, severe, 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 Active 40529050 Problem Cocaine use disorder, moderate, in sustained remission F14.21 Active 99251090 Problem GERD with esophagitis K21.0 Active 072174478 ALLERGIES No Information ENCOUNTERS Encounter Location Date Diagnosis [place] [id number] [place] [address] December, [place] [id number] [place] [address] 15 Nov, 2018 Major depressive disorder, recurrent episode, moderate F33.1 ; Cannabis abuse F12.10 ; Generalized anxiety disorder F41.1 ; Methamphetamine use disorder, severe, 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 ; Alcohol use disorder, mild, 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 ; PTSD (post-traumatic stress disorder) F43.10 and Cocaine use disorder, moderate, in sustained remission F14.21 [place] [id number] [place] [address] Oct, Major depressive disorder, recurrent episode, moderate F33.1 ; Cannabis abuse F12.10 ; Generalized anxiety disorder F41.1 ; Methamphetamine use disorder, severe, 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 ; Alcohol use disorder, mild, 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 ; PTSD (post-traumatic stress disorder) F43.10 and Cocaine use disorder, moderate, in sustained remission F14.21 [facility] [id number] [place] [address] Sep, Major depressive disorder, recurrent episode, moderate F33.1 [facility] [id number] [place] [id number] Aug, [facility] [id number] [place] [address] Jul, Dysuria R30.0 [facility] [id number] [place] [address] Jul, Major depressive disorder, recurrent episode, moderate F33.1 [facility] [id number] [place] [address] Jun, Major depressive disorder, recurrent episode, moderate F33.1 [facility] [id number] [place] [address] Jun, Major depressive disorder, recurrent episode, moderate F33.1 [facility] [id number] [place] [address] Jun, Acute pain of left shoulder M25.512 and Cigarette nicotine dependence without complication F17.210 [facility] [id number] [place] [address] May, [facility] [address] [address] May, Cocaine use disorder, moderate, in sustained remission F14.21 [facility] [id number] [place] [address] May, [facility] [address] [place] [address] 12 May, 2018 Dental examination Z01.20 [facility] [address] [place] [id number] 09 May, 2018 Dental examination Z01.20 and Caries K02.9 [facility] [id number] [place] [address] May, Common wart B07.8 [facility] [id number] [place] [address] May, [facility] [id number] [place] [address] 27 Apr, 2018 Cocaine use disorder, moderate, in sustained remission F14.21 [place] [id number] [place] [address] 14 Apr, 2018 [facility] [id number] [place] [id number] 13 Apr, 2018 Dental examination Z01.20 [facility] [id number] [place] [id number] 10 Mar, 2018 Encounter for dental exam and cleaning w/o abnormal findings Z01.20 [facility] [id number] [place] [address] Mar, [facility] [id number] [place] [address] Feb, Cocaine use disorder, moderate, in sustained [...] recurrent episode, moderate F33.1 [facility] [address] [address] Jan, Cocaine use disorder, moderate, in sustained remission F14.21 [facility] [id number] [address] Jan, Cocaine use disorder, moderate, in sustained [...] recurrent episode, moderate F33.1 [facility] [address] [place] [address] Jan, Dysuria R30.0 and GERD with esophagitis K21.0 [place] [id number] [place] [address] December, Major depressive disorder, recurrent episode, moderate F33.1 [place] [address] [place] [address] December, [facility] [address] [place] [address] December, Major depressive disorder, recurrent episode, moderate [...] and Tobacco use Z72.0 [facility] [address] [place] [address] Nov, [facility] [address] [id number] [address] Nov, [facility] [address] [address] 04 Apr, 2018 Wellness examination Z00.00 ; Encounter for immunization Z23 ; Screening for osteoporosis Z13.820 ; Screening for breast cancer Z12.31 and Left breast lump N63.20 [facility] [id number] [place] [id number] Oct, Dental examination Z01.20 [facility] [id number] [place] [address] Oct, [facility] [address] [address] Oct, [facility] [id number] [place] [address] 16 Sep, 2017 [facility] [id number] [place] [address] 15 Sep, 2017 [facility] [id number] [place] [address] 14 Sep, 2017 Left otitis media with effusion H65.92 ; Acute suppurative otitis media of right ear without spontaneous rupture of tympanic membrane, recurrence not specified H66.001 ; Dizziness R42 and Fatigue 780.79 [facility] [id number] [place] [address] Aug, Major depressive disorder, recurrent episode, moderate F33.1 ; Generalized anxiety disorder F41.1 ; Cannabis abuse F12.10 ; PTSD (post-traumatic stress disorder) F43.10 ; Methamphetamine use disorder, severe, 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 ; Cocaine use disorder, moderate, in sustained remission F14.21 ; Opioid use disorder, moderate, in sustained remission F11.21 ; Alcohol use disorder, mild, 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 and Tobacco use Z72.0 [facility] [id number] [place] [address] Aug, Ingrown right big toenail L60.0 [facility] [id number] [place] [address] Aug, [facility] [address] [place] [address] 15 Aug, 2017 PTSD (post-traumatic stress disorder) F43.10 [facility] [address] [place] [address] Aug, Major depressive disorder, recurrent episode, moderate F33.1 ; Generalized anxiety disorder F41.1 and Cannabis abuse F12.10 [facility] [address] [place] [address] Jul, [facility] [id number] [place] [address] Jul, [facility] [id number] [place] [address] Jul, [facility] [address] [place] [address] Jul, Major depressive disorder, recurrent episode, moderate F33.1 ; Generalized anxiety disorder F41.1 and Cannabis abuse F12.10 [facility] [address] [address] Jul, [facility] [id number] [place] [address] Jul, [facility] [address] [address] Jul, Hyperlipidemia 272.4 [facility] [address] [place] [address] Jul, PTSD (post-traumatic stress disorder) F43.10 [facility] [address] [address] 14 Jul, 2017 Tobacco use Z72.0 ; [...] anxiety disorder F41.1 and Cannabis abuse F12.10 [place] [address] [place] [address] Jul, [facility] [id number] [place] [address] Jul, Dysuria R30.0 and Mixed hyperlipidemia E78.2 [place] [id number] [place] [address] Jun, Major depressive disorder, recurrent episode, moderate F33.1 ; Generalized anxiety disorder F41.1 and Cannabis abuse F12.10 [place] [id number] [place] [address] Jun, [place] [id number] [place] [address] Jun, Generalized anxiety disorder F41.1 ; Major depressive disorder, recurrent episode, moderate F33.1 ; PTSD (post-traumatic stress disorder) F43.10 ; Opioid use disorder, moderate, in sustained remission F11.21 ; Cannabis abuse F12.10 ; Alcohol use disorder, mild, 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 ; Methamphetamine use disorder, severe, 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 ; Cocaine use disorder, moderate, in sustained remission F14.21 and Tobacco use Z72.0 [place] [address], [place] [address] Jun, Major depressive disorder, recurrent episode, moderate F33.1 ; Generalized anxiety disorder F41.1 and Cannabis abuse F12.10 [place] [address] [address] Jun, [place] [id number] [place] [address] Jun, [place] [address] [place] [address] Jun, Major depressive disorder, recurrent episode, moderate F33.1 ; Generalized anxiety disorder F41.1 and Cannabis abuse F12.10 [facility] [id number] [id number] Mar, Dental examination Z01.20 [facility] [id number] [place] [address] [id number] Feb, Dental examination Z01.20 [facility] [id number] [place] [address] Mar, [facility] [id number] [place] [address] Mar, [facility] [id number] [place] [address] Feb, Hyperlipidemia 272.4 and Prediabetes 790.29 [facility] [id number] [place] [address] Feb, Fatigue 780.79 and Hyperlipidemia 272.4 [facility] [id number] [place] [address] Feb, Lumbago 724.2 ; Hyperlipidemia 272.4 ; Insomnia 780.52 and Fatigue 780.79 [facility] [id number] [place] [address] Nov, [facility] [address] [place] [address] Nov, [facility] [id number] [place] [address] Mar, [facility] [id number] [place] [address] Mar, [facility] [id number] [place] [address] Jan, [facility] [id number] [place] [address] Jan, [facility] [id number] [place] [address] December, [facility] [place] [facility] [address] [id number] [place] [address] December, [facility] [place] [facility] [address] [id number] [place] [address] Nov, [facility] [place] [facility] [address] [id number] [place] [address] Nov, [facility] [place] [facility] [address] [id number] [place] [address] Nov, [facility] [place] [facility] [address] [id number] [place] [address] Nov, [facility] [place] [facility] [address] [id number] [place] [address] Nov, [facility] [place] [facility] [address] [id number] [place] [address] Nov, [facility] [place] [facility] [address] [id number] [place] [address] Oct, [facility] [place] [facility] [address] [id number] [place] [address] 31 Oct, 2013 [facility] [place] [facility] [address] [id number] [place] [address] Oct, [facility] [place] [facility] [address] [id number] [place] [address] 20 Oct, 2013 [facility] [place] [facility] [address] [id number] [place] [address] 19 Oct, 2013 [facility] [place] [facility] [address] [id number] [place] [address] Oct, [facility] [place] [facility] [address] [id number] [place] [address] Oct, [facility] [place] [facility] [address] [id number] [place] [address] Oct, [facility] [place] [facility] [address] [id number] [place] [address] Oct, [facility] [place] [facility] [address] [id number] [place] [address] Oct, [facility] [place] [facility] [address] [id number] [place] [address] Oct, [facility] [place] [facility] [address] [facility] [id number] [place] [address] Oct, [facility] [place] [facility] [address] [id number] [place] [address] Oct, [facility] [place] [facility] [address] [id number] [place] [address] 24 Sep, 2013 [facility] [place] [facility] [address] [facility] [id number] [place] [address] 24 Sep, 2013 [facility] [place] [facility] [address] [facility] [id number] [place] [address] 20 Sep, 2013 [facility] [place] [facility] [address] [facility] [id number] [place] [address] 20 Sep, 2013 [facility] [place] [facility] [address] [facility] [id number] [place] [address] 20 Sep, 2013 [facility] [place] [facility] [address] [facility] [id number] [place] [address] 20 Sep, 2013 [facility] [place] [facility] [address] [facility] [id number] [place] [address] 18 Sep, 2013 [facility] [place] [facility] [address] [facility] [id number] [place] [address] 18 Sep, 2013 [facility] [place] [facility] [address] [facility] [id number] [place] [address] 14 Sep, 2013 [facility] [place] [facility] [address] [facility] [id number] [place] [address] 14 Sep, 2013 [facility] [place] [facility] [address] [facility] [id number] [place] [address] 14 Sep, 2013 [facility] [place] [facility] [address] [id number] [place] [address] 14 Sep, 2013 [facility] [place] [facility] [address] [id number] [place] [address] 14 Sep, 2013 [facility] [place] [facility] [address] [id number] [place] [address] 14 Sep, 2013 [facility] [place] [facility] [address] [id number] [place] [address] Sep, [facility] [place] [facility] [address] [id number] [place] [address] Sep, [facility] [place] [facility] [address] [id number] [place] [address] Sep, [facility] [place] [facility] [address] [id number] [place] [address] Sep, [facility] [place] [facility] [address] [id number] [place] [address] Sep, [facility] [place] [facility] [address] [id number] [place] [address] Sep, [facility] [place] [facility] [address] [id number] [place] [address] Aug, [facility] [place] [facility] [address] [id number] [place] [address] Aug, [facility] [place] [facility] [address] [id number] [place] [address] Aug, [facility] [place] [facility] [address] [id number] [place] [address] Aug, [facility] [place] [facility] [address] [id number] [place] [address] Aug, [facility] [place] [facility] [address] [id number] [place] [address] Jul, [facility] [place] [facility] [address] [id number] [place] [address] Jul, [facility] [address] [id number] [place] [address] Jul, [facility] [place] [facility] [address] [id number] [place] [address] Jul, [facility] [address] [id number] [place] [address] Jul, [facility] [place] [facility] [address] [id number] [place] [address] Jul, [facility] [address] [id number] [place] [address] Jul, [facility] [address] [id number] [place] [address] Jul, [facility] [place] [facility] [address] [id number] [place] [address] Jul, [facility] [address] [id number] [place] [address] Jun, [facility] [place] [facility] [address] [id number] [place] [address] Jun, [facility] [address] [id number] [place] [address] Jun, [facility] [place] [facility] [address] [id number] [place] [address] Jun, [facility] [place] [facility] [address] [id number] [place] [address] Jun, [facility] [place] [facility] [address] [id number] [place] [address] Jun, [facility] [place] [facility] [address] [id number] [place] [address] Jun, [facility] [place] [facility] [address] [id number] [place] [address] Jun, [facility] [place] [facility] [address] [id number] [place] [address] Jun, [facility] [place] [facility] [address] [id number] [place] [address] Jun, [facility] [place] [facility] [address] [id number] [place] [address] May, [facility] [place] [facility] [address] [id number] [place] [address] May, [facility] [place] [facility] [address] [id number] [place] [address] May, [facility] [place] [facility] [address] [id number] [place] [address] May, [facility] [place] [facility] [address] [id number] [place] [address] May, [facility] [place] [facility] [address] [id number] [address] May, [facility] [place] [facility] [address] [id number] [place] [address] May, [facility] [place] [facility] [address] [id number], [place] [address] May, [facility] [place] [facility] [address] [id number], [place] [address] May, [facility] [place] [facility] [address] [id number], [place] [address] 26 Apr, 2013 [facility] [place] [facility] [address] [id number] [place] [address] 16 Apr, 2013 [facility] [place] [facility] [address] [id number], [place] [address] 12 Apr, 2013 [facility] [place] [facility] [address] [id number] [place] [address] 06 Apr, 2013 [facility] [place] [facility] [address] [id number] [place] [address] Mar, [facility] [address] [id number] [place] [address] Mar, [facility] [place] [facility] [address] [id number] [place] [address] Mar, [facility] [place] [facility] [address] [id number] [place] [address] Mar, [facility] [place] [facility] [address] [id number] [place] [address] Mar, [facility] [place] [facility] [address] [id number] [place] [address] Mar, [facility] [place] [facility] [address] [id number] [place] [address] Mar, [facility] [place] [facility] [address] [id number] [place] [address] Feb, [facility] [place] [facility] [address] [id number] [place] [address] Feb, [facility] [place] [facility] [address] [id number] [place] [address] Feb, [facility] [place] [facility] [address] [id number] [place] [address] Feb, [facility] [place] [facility] [address] [id number] [place] [address] Feb, [facility] [place] [facility] [address] [id number] [place] [address] Feb, [facility] [place] [facility] [address] [id number] [place] [address] Feb, [facility] [place] [facility] [address] [id number] [place] [address] Feb, [facility] [place] [facility] [address] [id number] [place] [address] Feb, [facility] [place] [facility] [address] [id number] [place] [address] Feb, [facility] [address] [id number] [place] [address] Feb, [facility] [place] [facility] [address] [id number] [place] [address] Jan, [facility] [place] [facility] [address] [id number] [place] [address] Jan, [facility] [address] [id number] [place] [address] December, [facility] [place] [facility] [address] [id number] [place] [address] December, [facility] [address] [id number] [place] [address] Nov, [facility] [address] [id number] [place] [address] Nov, [facility] [address] [id number] [place] [address] Oct, [facility] [address] [id number] [place] [address] Oct, [facility] [place] [facility] [address] [id number] [place] [address] Oct, [facility] [place] [facility] [address] [id number] [place] [address] Oct, [facility] [place] [facility] [address] [id number] [place] [address] Sep, [facility] [place] [facility] [address] [id number] [place] [address] Sep, [facility] [place] [facility] [address] [id number] [place] [address] Sep, [facility] [place] [facility] [address] [id number] [address] Sep, [facility] [address] [id number] [place] [address] Aug, [facility] [place] [facility] [address] [id number] [place] [address] Aug, [facility] [place] [facility] [address] [id number] [place] [address] Jul, [facility] [place] [facility] [address] [id number] [place] [address] Jul, [facility] [place] [facility] [address] [id number] [place] [address] Jul, [facility] [place] [facility] [address] [id number] [place] [address] Jul, [facility] [place] [facility] [address] [id number] [place] [address] Jul, [facility] [place] [facility] [address] [id number] [place] [address] Jul, [facility] [place] [facility] [address] [id number] [place] [address] Jun, [facility] [place] [facility] [address] [id number] [place] [address] Jun, [facility] [place] [facility] [address] [id number], [place] [address] Jun, [facility] [place] [facility] [address] [id number], [place] [address] Jun, [facility] [place] [facility] [address] [id number], [place] [address] Jun, [facility] [place] [facility] [address] [id number] [place] [address] May, [facility] [place] [facility] [address] [id number] [place] [address] May, [facility] [place] [facility] [address] [id number] [place] [address] May, [facility] [place] [facility] [address] [id number] [place] [address] May, [facility] [place] [facility] [address] [id number] [place] [address] May, [facility] [place] [facility] [address] [id number] [place] [address] May, [facility] [place] [facility] [address] [id number] [place] [address] May, [facility] [place] [facility] [address] [id number] [place] [address] May, [facility] [place] [facility] [address] [id number] [place] [address] Mar, [facility] [place] [facility] [address] [id number] [place] [address] Mar, [facility] [place] [facility] [address] [id number] [place] [address] Mar, [facility] [place] [facility] [address] [id number] [place] [address] Feb, [facility] [place] [facility] [address] [id number] [place] [address] Feb, [facility] [place] [facility] [address] [id number] [place] [address] Feb, [facility] [place] [facility] [address] [id number] [place] [address] Feb, [facility] [place] [facility] [address] [id number] [place] [address] Jan, [facility] [place] [facility] [address] [id number] [place] [address] Jan, [facility] [place] [facility] [address] [id number] [place] [address] Jan, [facility] [address] [id number] [place] [address] December, [facility] [place] [facility] [address] [id number] [place] [address] Nov, [facility] [place] [facility] [address] [id number] [place] [address] Oct, [facility] [place] [facility] [address] [id number] [place] [address] Oct, [facility] [place] [facility] [address] [id number] [place] [address] Oct, [facility] [place] [facility] [address] [id number] [place] [address] Oct, [facility] [place] [facility] [address] [id number] [place] [address] Aug, [facility] [place] [facility] [address] [id number] [place] [address] Aug, [facility] [place] [facility] [address] [id number] [place] [address] Aug, [facility] [place] [facility] [address] [id number] [place] [address] Aug, [facility] [place] [facility] [address] [id number] [place] [address] Aug, [facility] [place] [facility] [address] [id number], [place] [address] Aug, [facility] [place] [facility] [address] [id number] [place] [address] Aug, [facility] [place] [facility] [address] [id number] [place] [address] Aug, [facility] [place] [facility] [address] [id number] [place] [address] Jul, [facility] [place] [facility] [address] [id number] [place] [address] 29 Jun, 2011 [facility] [address] [id number] [place] [address] 29 Jun, 2011 [facility] [place] [facility] [address] [id number] [place] [address] 31 Jul, 2010 [facility] [place] [facility] [address] [id number] [place] [address] 22 Jul, 2010 [facility] [place] [facility] [address] [id number] [place] [address] 22 Jul, 2010 [facility] [place] [facility] [address] [id number] [place] [address] 14 Jul, 2010 [facility] [place] [facility] [address] [id number] [place] [address] 14 Jul, 2010 [facility] [place] [facility] [address] [id number] [place] [address] 24 Jun, 2010 [facility] [place] [facility] [address] [id number] [place] [address] May, [facility] [place] [facility] [address] [id number] [place] [address] Mar, [facility] [place] [facility] [address] [facility] [id number] [place] [address] Oct, [facility] [place] [facility] [address] [id number] [place] [address] Aug, [facility] [place] [facility] [address] [id number] [place] [address] 15 Jul, 2009 [facility] [place] [facility] [address] [id number] [place] [address] Jul, [facility] [place] [facility] [address] [id number] [place] [address] Jun, [facility] [place] [facility] [address] [facility] [id number] [place] [address] Jun, [facility] [place] [facility] [address] [facility] [id number], [place] [address] May, [facility] [address] [id number] [address] May, [facility] [address] [facility] [id number], [place] [address] Mar, [facility] [address] [facility] [id number], [place] [address] Mar, [facility] [address] [facility] [id number], [place] [address] Oct, IMMUNIZATIONS No Known Immunizations SOCIAL HISTORY Never Assessed REASON FOR VISIT [facility] [place] PLAN OF CARE VITAL SIGNS MEDICATIONS Unknown [...] disc replacement L1- L5 - Dr Muhammad ([place]) Surgical History appendectomy 1983 Surgical History hysterectomy 1993 Surgical History dilatation and curettage Surgical History heart cath- Dr Shaw [address] Solano bowel and intestines sep2015 Surgical History [address] solano removed skin tag and cyst 2018 Hospitalization History Hospitalization for surgery only
--- OUTSIDE RECORDS SUMMARY | 2019-01-03 13:45 | XMS REPORT ---
Author Author Migration, Doctor Organization [facility] Address Unknown Phone Unavailable Care Team Providers Care Digital Photo Printer Name Role Phone Migration, Doctor Unavailable Unavailable PROBLEMS Type Condition ICD9-CM Code [id number] Code Onset Dates Condition Status SNOMED Code Problem Prediabetes 790.29 Active 5013566 Problem Major depressive disorder, recurrent episode, moderate F33.1 Active 372630972 Problem Mixed hyperlipidemia E78.2 Active 367596194 Problem PTSD (post-traumatic stress disorder) F43.10 Active 36871217 Problem Tobacco use Z72.0 Active 374065878 Problem Alcohol use disorder, mild, 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 Active 17268283 Problem Cigarette nicotine dependence without complication F17.210 Active 66514767 Problem Cannabis abuse F12.10 Active 43523674 Problem Acute pain of left shoulder M25.512 Active 82283195 Problem Generalized anxiety disorder F41.1 Active 01336072 Problem Opioid use disorder, moderate, in sustained remission F11.21 Active 63774690 Problem Methamphetamine use disorder, severe, 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 Active 16633238 Problem Cocaine use disorder, moderate, in sustained remission F14.21 Active 24382467 Problem GERD with esophagitis K21.0 Active 478526313 ALLERGIES No Information ENCOUNTERS Encounter Location Date Diagnosis [place] [id number] [place] [id number] December, [place] [id number] [place] [address] 15 Nov, 2018 Major depressive disorder, recurrent episode, moderate F33.1 ; Cannabis abuse F12.10 ; Generalized anxiety disorder F41.1 ; Methamphetamine use disorder, severe, 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 ; Alcohol use disorder, mild, 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 ; PTSD (post-traumatic stress disorder) F43.10 and Cocaine use disorder, moderate, in sustained remission F14.21 [place] [id number] [place] [address] Oct, Major depressive disorder, recurrent episode, moderate F33.1 ; Cannabis abuse F12.10 ; Generalized anxiety disorder F41.1 ; Methamphetamine use disorder, severe, 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 ; Alcohol use disorder, mild, 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 ; PTSD (post-traumatic stress disorder) F43.10 and Cocaine use disorder, moderate, in sustained remission F14.21 [facility] [id number] [place] [address] Sep, Major depressive disorder, recurrent episode, moderate F33.1 [facility] [id number] [place] [id number] Aug, [facility] [id number] [place] [address] Jul, Dysuria R30.0 [facility] [id number] [place] [address] Jul, Major depressive disorder, recurrent episode, moderate F33.1 [facility] [id number] [place] [address] Jun, Major depressive disorder, recurrent episode, moderate F33.1 [facility] [id number] [place] [address] Jun, Major depressive disorder, recurrent episode, moderate F33.1 [facility] [address] [place] [address] Jun, Acute pain of left shoulder M25.512 and Cigarette nicotine dependence without complication F17.210 [facility] [id number] [place] [address] May, [facility] [address] [address] May, Cocaine use disorder, moderate, in sustained remission F14.21 [facility] [id number] [place] [address] May, [facility] [address] [place] [address] 12 May, 2018 Dental examination Z01.20 [facility] [address] [place] [id number] 09 May, 2018 Dental examination Z01.20 and Caries K02.9 [facility] [address] [place] [address] May, Common wart B07.8 [facility] [id number] [place] [address] May, [facility] [id number] [place] [address] 27 Apr, 2018 Cocaine use disorder, moderate, in sustained remission F14.21 [place] [id number] [place] [address] 14 Apr, 2018 [facility] [id number] [place] [id number] 13 Apr, 2018 Dental examination Z01.20 [facility] [id number] [place] [id number] 10 Mar, 2018 Encounter for dental exam and cleaning w/o abnormal findings Z01.20 [facility] [address] [place] [address] Mar, [facility] [id number] [place] [address] Feb, Cocaine use disorder, moderate, in sustained remission F14.21 ; Opioid use disorder, moderate, in sustained remission F11.21 ; Alcohol use disorder, mild, 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 ; Tobacco use Z72.0 ; PTSD (post-traumatic stress disorder) F43.10 ; Methamphetamine use disorder, severe, 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 ; Generalized anxiety disorder F41.1 ; Cannabis abuse F12.10 and Major depressive disorder, recurrent episode, moderate F33.1 [facility] [address] [address] Jan, Cocaine use disorder, moderate, in sustained remission F14.21 [facility] [id number] [address] Jan, Cocaine use disorder, moderate, in sustained remission F14.21 ; Opioid use disorder, moderate, in sustained remission F11.21 ; Alcohol use disorder, mild, 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 ; Tobacco use Z72.0 ; PTSD (post-traumatic stress disorder) F43.10 ; Methamphetamine use disorder, severe, 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 ; Generalized anxiety disorder F41.1 ; Cannabis abuse F12.10 and Major depressive disorder, recurrent episode, moderate F33.1 [facility] [address] [place] [address] Jan, Dysuria R30.0 and GERD with esophagitis K21.0 [place] [id number] [place] [address] December, Major depressive disorder, recurrent episode, moderate F33.1 [place] [address] [place] [address] December, [facility] [address] [place] [address] December, Major depressive disorder, recurrent episode, moderate F33.1 ; Generalized anxiety disorder F41.1 ; Cannabis abuse F12.10 ; PTSD (post-traumatic stress disorder) F43.10 ; Methamphetamine use disorder, severe, 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 ; Cocaine use disorder, moderate, in sustained remission F14.21 ; Opioid use disorder, moderate, in sustained remission F11.21 ; Alcohol use disorder, mild, 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 and Tobacco use Z72.0 [facility] [address] [place] [address] Nov, [facility] [address] [place] [address] Nov, [facility] [address] [address] 04 Apr, 2018 Wellness examination Z00.00 ; Encounter for immunization Z23 ; Screening for osteoporosis Z13.820 ; Screening for breast cancer Z12.31 and Left breast lump N63.20 [facility] [id number] [place] [id number] Oct, Dental examination Z01.20 [facility] [id number] [place] [address] Oct, [facility] [address] [address] Oct, [facility] [id number] [place] [address] 16 Sep, 2017 [facility] [id number] [place] [address] 15 Sep, 2017 [facility] [id number] [place] [address] 14 Sep, 2017 Left otitis media with effusion H65.92 ; Acute suppurative otitis media of right ear without spontaneous rupture of tympanic membrane, recurrence not specified H66.001 ; Dizziness R42 and Fatigue 780.79 [facility] [id number] [place] [address] Aug, Major depressive disorder, recurrent episode, moderate [...] Tobacco use Z72.0 [facility] [id number] [place] [address] Aug, Ingrown right big toenail L60.0 [facility] [id number] [place] [address] Aug, [facility] [address] [place] [address] 15 Aug, 2017 PTSD (post-traumatic stress disorder) F43.10 [facility] [address] [place] [address] Aug, Major depressive disorder, recurrent episode, moderate F33.1 ; Generalized anxiety disorder F41.1 and Cannabis abuse F12.10 [facility] [address] [place] [address] Jul, [facility] [id number] [place] [address] Jul, [facility] [id number] [place] [address] Jul, [facility] [address] [place] [address] Jul, Major depressive disorder, recurrent episode, moderate F33.1 ; Generalized anxiety disorder F41.1 and Cannabis abuse F12.10 [facility] [address] [address] Jul, [facility] [id number] [place] [address] Jul, [facility] [address] [address] Jul, Hyperlipidemia 272.4 [facility] [address] [place] [address] Jul, PTSD (post-traumatic stress disorder) F43.10 [facility] [address] [address] 14 Jul, 2017 Tobacco use Z72.0 ; [...] anxiety disorder F41.1 and Cannabis abuse F12.10 [place] [address] [place] [address] Jul, [facility] [id number] [place] [address] Jul, Dysuria R30.0 and Mixed hyperlipidemia E78.2 [place] [id number] [place] [address] Jun, Major depressive disorder, recurrent episode, moderate F33.1 ; Generalized anxiety disorder F41.1 and Cannabis abuse F12.10 [place] [id number] [place] [address] Jun, [place] [id number] [place] [address] Jun, Generalized anxiety disorder F41.1 ; Major depressive disorder, recurrent episode, moderate F33.1 ; PTSD (post-traumatic stress disorder) F43.10 ; Opioid use disorder, moderate, in sustained remission F11.21 ; Cannabis abuse F12.10 ; Alcohol use disorder, mild, 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 ; Methamphetamine use disorder, severe, 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 ; Cocaine use disorder, moderate, in sustained remission F14.21 and Tobacco use Z72.0 [place] [address] [address] Jun, Major depressive disorder, recurrent episode, moderate F33.1 ; Generalized anxiety disorder F41.1 and Cannabis abuse F12.10 [place] [address] [address] Jun, [place] [id number] [place] [address] Jun, [place] [address] [place] [address] Jun, Major depressive disorder, recurrent episode, moderate F33.1 ; Generalized anxiety disorder F41.1 and Cannabis abuse F12.10 [facility] [id number] [id number] Mar, Dental examination Z01.20 [facility] [id number] [place] [address] [id number] Feb, Dental examination Z01.20 [facility] [id number] [place] [address] Mar, [facility] [id number] [place] [address] Mar, [facility] [id number] [place] [address] Feb, Hyperlipidemia 272.4 and Prediabetes 790.29 [facility] [id number] [place] [address] Feb, Fatigue 780.79 and Hyperlipidemia 272.4 [facility] [id number] [place] [address] Feb, Lumbago 724.2 ; Hyperlipidemia 272.4 ; Insomnia 780.52 and Fatigue 780.79 [facility] [id number] [place] [address] Nov, [facility] [address] [place] [address] Nov, [facility] [id number] [place] [address] Mar, [facility] [id number] [place] [address] Mar, [facility] [id number] [place] [address] Jan, [facility] [id number] [place] [address] Jan, [facility] [id number] [place] [address] December, [facility] [place] [facility] [address] [id number] [place] [address] December, [facility] [place] [facility] [address] [id number] [place] [address] Nov, [facility] [place] [facility] [address] [id number] [place] [address] Nov, [facility] [place] [facility] [address] [id number] [place] [address] Nov, [facility] [place] [facility] [address] [id number] [place] [address] Nov, [facility] [place] [facility] [address] [id number] [place] [address] Nov, [facility] [place] [facility] [address] [id number] [place] [address] Nov, [facility] [place] [facility] [address] [id number] [place] [address] Oct, [facility] [place] [facility] [address] [id number] [place] [address] 31 Oct, 2013 [facility] [place] [facility] [address] [id number] [place] [address] Oct, [facility] [place] [facility] [address] [id number] [place] [address] 20 Oct, 2013 [facility] [place] [facility] [address] [id number] [place] [address] 19 Oct, 2013 [facility] [place] [facility] [address] [id number] [place] [address] Oct, [facility] [place] [facility] [address] [id number] [place] [address] Oct, [facility] [place] [facility] [address] [id number] [place] [address] Oct, [facility] [place] [facility] [address] [id number] [place] [address] Oct, [facility] [place] [facility] [address] [id number] [place] [address] Oct, [facility] [place] [facility] [address] [id number] [place] [address] Oct, [facility] [place] [facility] [address] [facility] [id number] [place] [address] Oct, [facility] [place] [facility] [address] [id number] [place] [address] Oct, [facility] [place] [facility] [address] [id number] [place] [address] 24 Sep, 2013 [facility] [place] [facility] [address] [facility] [id number] [place] [address] 24 Sep, 2013 [facility] [place] [facility] [address] [facility] [id number] [place] [address] 20 Sep, 2013 [facility] [place] [facility] [address] [facility] [id number] [place] [address] 20 Sep, 2013 [facility] [place] [facility] [address] [facility] [id number] [place] [address] 20 Sep, 2013 [facility] [place] [facility] [address] [facility] [id number] [place] [address] 20 Sep, 2013 [facility] [place] [facility] [address] [facility] [id number] [place] [address] 18 Sep, 2013 [facility] [place] [facility] [address] [facility] [id number] [place] [address] 18 Sep, 2013 [facility] [place] [facility] [address] [facility] [id number] [place] [address] 14 Sep, 2013 [facility] [place] [facility] [address] [facility] [id number] [place] [address] 14 Sep, 2013 [facility] [place] [facility] [address] [facility] [id number] [place] [address] 14 Sep, 2013 [facility] [place] [facility] [address] [id number] [place] [address] 14 Sep, 2013 [facility] [place] [facility] [address] [id number] [place] [address] 14 Sep, 2013 [facility] [place] [facility] [address] [id number] [place] [address] 14 Sep, 2013 [facility] [place] [facility] [address] [id number] [place] [address] Sep, [facility] [place] [facility] [address] [id number] [place] [address] Sep, [facility] [place] [facility] [address] [id number] [place] [address] Sep, [facility] [place] [facility] [address] [id number] [place] [address] Sep, [facility] [place] [facility] [address] [id number] [place] [address] Sep, [facility] [place] [facility] [address] [id number] [place] [address] Sep, [facility] [place] [facility] [address] [id number] [place] [address] Aug, [facility] [place] [facility] [address] [id number] [place] [address] Aug, [facility] [place] [facility] [address] [id number] [place] [address] Aug, [facility] [place] [facility] [address] [id number] [place] [address] Aug, [facility] [place] [facility] [address] [id number] [place] [address] Aug, [facility] [place] [facility] [address] [id number] [place] [address] Jul, [facility] [place] [facility] [address] [id number] [place] [address] Jul, [facility] [address] [id number] [place] [address] Jul, [facility] [place] [facility] [address] [id number] [place] [address] Jul, [facility] [address] [id number] [place] [address] Jul, [facility] [place] [facility] [address] [id number] [place] [address] Jul, [facility] [address] [id number] [place] [address] Jul, [facility] [address] [id number] [place] [address] Jul, [facility] [place] [facility] [address] [id number] [place] [address] Jul, [facility] [address] [id number] [place] [address] Jun, [facility] [place] [facility] [address] [id number] [place] [address] Jun, [facility] [address] [id number] [place] [address] Jun, [facility] [place] [facility] [address] [id number] [place] [address] Jun, [facility] [place] [facility] [address] [id number] [place] [address] Jun, [facility] [place] [facility] [address] [id number] [place] [address] Jun, [facility] [place] [facility] [address] [id number] [place] [address] Jun, [facility] [place] [facility] [address] [id number] [place] [address] Jun, [facility] [place] [facility] [address] [id number] [place] [address] Jun, [facility] [place] [facility] [address] [id number] [place] [address] Jun, [facility] [place] [facility] [address] [id number] [place] [address] May, [facility] [place] [facility] [address] [id number] [place] [address] May, [facility] [place] [facility] [address] [id number] [place] [address] May, [facility] [place] [facility] [address] [id number] [place] [address] May, [facility] [place] [facility] [address] [id number] [place] [address] May, [facility] [place] [facility] [address] [id number] [address] May, [facility] [place] [facility] [address] [id number] [place] [address] May, [facility] [place] [facility] [address] [id number] [place] [address] May, [facility] [place] [facility] [address] [id number] [place] [address] May, [facility] [place] [facility] [address] [id number] [place] [address] 26 Apr, 2013 [facility] [place] [facility] [address] [id number] [place] [address] 16 Apr, 2013 [facility] [place] [facility] [address] [id number] [place] [address] 12 Apr, 2013 [facility] [place] [facility] [address] [id number] [place] [address] 06 Apr, 2013 [facility] [place] [facility] [address] [id number] [place] [address] Mar, [facility] [address] [id number] [place] [address] Mar, [facility] [place] [facility] [address] [id number] [place] [address] Mar, [facility] [place] [facility] [address] [id number] [place] [address] Mar, [facility] [place] [facility] [address] [id number] [place] [address] Mar, [facility] [place] [facility] [address] [id number] [place] [address] Mar, [facility] [place] [facility] [address] [id number] [place] [address] Mar, [facility] [place] [facility] [address] [id number] [place] [address] Feb, [facility] [place] [facility] [address] [id number] [place] [address] Feb, [facility] [place] [facility] [address] [id number] [place] [address] Feb, [facility] [place] [facility] [address] [id number] [place] [address] Feb, [facility] [place] [facility] [address] [id number] [place] [address] Feb, [facility] [place] [facility] [address] [id number] [place] [address] Feb, [facility] [place] [facility] [address] [id number] [place] [address] Feb, [facility] [place] [facility] [address] [id number] [place] [address] Feb, [facility] [place] [facility] [address] [id number] [place] [address] Feb, [facility] [place] [facility] [address] [id number] [place] [address] Feb, [facility] [address] [id number] [place] [address] Feb, [facility] [place] [facility] [address] [id number] [place] [address] Jan, [facility] [place] [facility] [address] [id number] [place] [address] Jan, [facility] [address] [id number] [place] [address] December, [facility] [place] [facility] [address] [id number] [place] [address] December, [facility] [address] [id number] [place] [address] Nov, [facility] [address] [id number] [place] [address] Nov, [facility] [address] [id number] [place] [address] Oct, [facility] [address] [id number] [place] [address] Oct, [facility] [place] [facility] [address] [id number] [place] [address] Oct, [facility] [place] [facility] [address] [id number] [place] [address] Oct, [facility] [place] [facility] [address] [id number] [place] [address] Sep, [facility] [place] [facility] [address] [id number] [place] [address] Sep, [facility] [place] [facility] [address] [id number] [place] [address] Sep, [facility] [place] [facility] [address] [id number] [place] [address] Sep, [facility] [address] [id number] [place] [address] Aug, [facility] [place] [facility] [address] [id number] [place] [address] Aug, [facility] [place] [facility] [address] [id number] [place] [address] Jul, [facility] [place] [facility] [address] [id number] [place] [address] Jul, [facility] [place] [facility] [address] [id number] [place] [address] Jul, [facility] [place] [facility] [address] [id number] [place] [address] Jul, [facility] [place] [facility] [address] [id number] [place] [address] Jul, [facility] [place] [facility] [address] [id number] [place] [address] Jul, [facility] [place] [facility] [address] [id number] [place] [address] Jun, [facility] [place] [facility] [address] [id number] [place] [address] Jun, [facility] [place] [facility] [address] [id number] [place] [address] Jun, [facility] [place] [facility] [address] [id number] [place] [address] Jun, [facility] [place] [facility] [address] [id number] [place] [address] Jun, [facility] [place] [facility] [address] [id number] [place] [address] May, [facility] [place] [facility] [address] [id number] [place] [address] May, [facility] [place] [facility] [address] [id number] [place] [address] May, [facility] [place] [facility] [address] [id number] [place] [address] May, [facility] [place] [facility] [address] [id number] [place] [address] May, [facility] [place] [facility] [address] [id number] [place] [address] May, [facility] [place] [facility] [address] [id number] [place] [address] May, [facility] [place] [facility] [address] [id number] [place] [address] May, [facility] [place] [facility] [address] [id number] [place] [address] Mar, [facility] [place] [facility] [address] [id number] [place] [address] Mar, [facility] [place] [facility] [address] [id number] [place] [address] Mar, [facility] [place] [facility] [address] [id number] [place] [address] Feb, [facility] [place] [facility] [address] [id number] [place] [address] Feb, [facility] [place] [facility] [address] [id number] [place] [address] Feb, [facility] [place] [facility] [address] [id number] [place] [address] Feb, [facility] [place] [facility] [address] [id number] [place] [address] Jan, [facility] [place] [facility] [address] [id number] [place] [address] Jan, [facility] [place] [facility] [address] [id number] [place] [address] Jan, [facility] [address] [id number] [place] [address] December, [facility] [place] [facility] [address] [id number] [place] [address] Nov, [facility] [place] [facility] [address] [id number] [place] [address] Oct, [facility] [place] [facility] [address] [id number] [place] [address] Oct, [facility] [place] [facility] [address] [id number] [place] [address] Oct, [facility] [place] [facility] [address] [id number] [place] [address] Oct, [facility] [place] [facility] [address] [id number] [place] [address] Aug, [facility] [place] [facility] [address] [id number] [place] [address] Aug, [facility] [place] [facility] [address] [id number] [place] [address] Aug, [facility] [place] [facility] [address] [id number] [place] [address] Aug, [facility] [place] [facility] [address] [id number] [place] [address] Aug, [facility] [place] [facility] [address] [id number] [place] [address] Aug, [facility] [place] [facility] [address] [id number] [place] [address] Aug, [facility] [place] [facility] [address] [id number] [place] [address] Aug, [facility] [place] [facility] [address] [id number] [place] [address] Jul, [facility] [place] [facility] [address] [id number] [place] [address] 29 Jun, 2011 [facility] [address] [id number] [place] [address] 29 Jun, 2011 [facility] [place] [facility] [address] [id number] [place] [address] 31 Jul, 2010 [facility] [place] [facility] [address] [id number] [place] [address] 22 Jul, 2010 [facility] [place] [facility] [address] [id number] [place] [address] 22 Jul, 2010 [facility] [place] [facility] [address] [id number] [place] [address] 14 Jul, 2010 [facility] [place] [facility] [address] [id number] [place] [address] 14 Jul, 2010 [facility] [place] [facility] [address] [id number] [place] [address] 24 Jun, 2010 [facility] [place] [facility] [address] [id number] [place] [address] May, [facility] [place] [facility] [address] [id number] [place] [address] Mar, [facility] [place] [facility] [address] [facility] [id number] [place] [address] Oct, [facility] [place] [facility] [address] [id number] [place] [address] Aug, [facility] [place] [facility] [address] [id number] [place] [address] 15 Jul, 2009 [facility] [place] [facility] [address] [id number] [place] [address] Jul, [facility] [place] [facility] [address] [id number] [place] [address] Jun, [facility] [place] [facility] [address] [facility] [id number] [place] [address] Jun, [facility] [place] [facility] [address] [facility] [id number] [place] [address] May, [facility] [address] [id number] [place] [address] May, [facility] [address] [facility] [id number] [place] [address] Mar, [facility] [address] [facility] [id number] [place] [address] Mar, [facility] [address] [facility] [id number] [place] [address] Oct, IMMUNIZATIONS No Known Immunizations SOCIAL HISTORY Never Assessed REASON FOR VISIT [facility] PLAN OF CARE VITAL SIGNS MEDICATIONS Unknown [...] disc replacement L1- L5 - Dr Muhammad ([place]) Surgical History appendectomy 1983 Surgical History hysterectomy 1993 Surgical History dilatation and curettage Surgical History heart cath- Dr Shaw [address] Solano bowel and intestines sep2015 Surgical History [address] solano removed skin tag and cyst 2018 Hospitalization History Hospitalization for surgery only
--- OUTSIDE RECORDS SUMMARY | 2019-01-03 13:45 | XMS REPORT ---
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 Name Role Phone Migration, Doctor Unavailable Unavailable PROBLEMS Type Condition ICD9-CM Code [id number] Code Onset Dates Condition Status SNOMED Code Problem Prediabetes 790.29 Active 0597824 Problem Major depressive disorder, recurrent episode, moderate F33.1 Active 003962634 Problem Mixed hyperlipidemia E78.2 Active 083724365 Problem PTSD (post-traumatic stress disorder) F43.10 Active 05987165 Problem Tobacco use Z72.0 Active 663839295 Problem Alcohol use disorder, mild, 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 Active 28988106 Problem Cigarette nicotine dependence without complication F17.210 Active 85138020 Problem Cannabis abuse F12.10 Active 03886442 Problem Acute pain of left shoulder M25.512 Active 27270219 Problem Generalized anxiety disorder F41.1 Active 46069452 Problem Opioid use disorder, moderate, in sustained remission F11.21 Active 37423609 Problem Methamphetamine use disorder, severe, 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 Active 66520400 Problem Cocaine use disorder, moderate, in sustained remission F14.21 Active 08816061 Problem GERD with esophagitis K21.0 Active 020874768 ALLERGIES No Information ENCOUNTERS Encounter Location Date Diagnosis [place] [id number] [place] [address] December, [place] [id number] [place] [address] 15 Nov, 2018 Major depressive disorder, recurrent episode, moderate F33.1 ; Cannabis abuse F12.10 ; Generalized anxiety disorder F41.1 ; Methamphetamine use disorder, severe, 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 ; Alcohol use disorder, mild, 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 ; PTSD (post-traumatic stress disorder) F43.10 and Cocaine use disorder, moderate, in sustained remission F14.21 [place] [id number] [place] [address] Oct, Major depressive disorder, recurrent episode, moderate F33.1 ; Cannabis abuse F12.10 ; Generalized anxiety disorder F41.1 ; Methamphetamine use disorder, severe, 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 ; Alcohol use disorder, mild, 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 ; PTSD (post-traumatic stress disorder) F43.10 and Cocaine use disorder, moderate, in sustained remission F14.21 [facility] [id number] [place] [address] Sep, Major depressive disorder, recurrent episode, moderate F33.1 [facility] [id number] [place] [id number] Aug, [facility] [id number] [place] [address] Jul, Dysuria R30.0 [facility] [id number] [place] [address] Jul, Major depressive disorder, recurrent episode, moderate F33.1 [facility] [id number] [place] [address] Jun, Major depressive disorder, recurrent episode, moderate F33.1 [facility] [id number] [place] [address] Jun, Major depressive disorder, recurrent episode, moderate F33.1 [facility] [id number] [place] [address] Jun, Acute pain of left shoulder M25.512 and Cigarette nicotine dependence without complication F17.210 [facility] [id number] [place] [address] May, [facility] [address] [address] May, Cocaine use disorder, moderate, in sustained remission F14.21 [facility] [id number] [place] [address] May, [facility] [address] [place] [address] 12 May, 2018 Dental examination Z01.20 [facility] [id number] [place] [id number] 09 May, 2018 Dental examination Z01.20 and Caries K02.9 [facility] [id number] [place] [address] May, Common wart B07.8 [facility] [id number] [place] [address] May, [facility] [id number] [place] [address] 27 Apr, 2018 Cocaine use disorder, moderate, in sustained remission F14.21 [place] [id number] [place] [address] 14 Apr, 2018 [facility] [id number] [place] [id number] 13 Apr, 2018 Dental examination Z01.20 [facility] [id number] [place] [id number] 10 Mar, 2018 Encounter for dental exam and cleaning w/o abnormal findings Z01.20 [facility] [id number] [place] [address] Mar, [facility] [id number] [place] [address] Feb, Cocaine use disorder, moderate, in sustained [...] moderate F33.1 [facility] [address] [address] Jan, Cocaine use disorder, moderate, in sustained remission F14.21 [facility] [id number] [address] Jan, Cocaine use disorder, moderate, in sustained [...] moderate F33.1 [facility] [id number] [place] [address] Jan, Dysuria R30.0 and GERD with esophagitis K21.0 [place] [id number] [place] [address] December, Major depressive disorder, recurrent episode, moderate F33.1 [place] [id number] [place] [address] December, [facility] [id number] [place] [address] December, Major depressive disorder, recurrent episode, moderate [...] and Tobacco use Z72.0 [facility] [id number] [place] [address] Nov, [facility] [address] [id number] [address] Nov, [facility] [address] [place] [address] 04 Apr, 2018 Wellness examination Z00.00 ; Encounter for immunization Z23 ; Screening for osteoporosis Z13.820 ; Screening for breast cancer Z12.31 and Left breast lump N63.20 [facility] [id number] [place] [address] [phone] Oct, Dental examination Z01.20 [facility] [id number] [place] [address] Oct, [facility] [address] [address] Oct, [facility] [id number] [place] [address] 16 Sep, 2017 [facility] [id number] [place] [address] 15 Sep, 2017 [facility] [id number] [place] [address] 14 Sep, 2017 Left otitis media with effusion H65.92 ; Acute suppurative otitis media of right ear without spontaneous rupture of tympanic membrane, recurrence not specified H66.001 ; Dizziness R42 and Fatigue 780.79 [facility] [id number] [place] [address] Aug, Major depressive disorder, recurrent episode, moderate F33.1 ; Generalized anxiety disorder F41.1 ; Cannabis abuse F12.10 ; PTSD (post-traumatic stress disorder) F43.10 ; Methamphetamine use disorder, severe, 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 ; Cocaine use disorder, moderate, in sustained remission F14.21 ; Opioid use disorder, moderate, in sustained remission F11.21 ; Alcohol use disorder, mild, 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 and Tobacco use Z72.0 [facility] [id number] [place] [address] Aug, Ingrown right big toenail L60.0 [facility] [id number] [place] [address] Aug, [facility] [address] [place] [address] 15 Aug, 2017 PTSD (post-traumatic stress disorder) F43.10 [facility] [id number] [place] [address] Aug, Major depressive disorder, recurrent episode, moderate F33.1 ; Generalized anxiety disorder F41.1 and Cannabis abuse F12.10 [facility] [address] [place] [address] Jul, [facility] [id number] [place] [address] Jul, [facility] [id number] [place] [address] Jul, [facility] [address] [place] [address] Jul, Major depressive disorder, recurrent episode, moderate F33.1 ; Generalized anxiety disorder F41.1 and Cannabis abuse F12.10 [facility] [address] [address] Jul, [facility] [id number] [place] [address] Jul, [facility] [address] [address] Jul, Hyperlipidemia 272.4 [facility] [id number] [place] [address] Jul, PTSD (post-traumatic stress disorder) F43.10 [facility] [address] [address] 14 Jul, 2017 Tobacco use Z72.0 ; [...] anxiety disorder F41.1 and Cannabis abuse F12.10 [place] [id number] [place] [address] Jul, [facility] [id number] [place] [address] Jul, Dysuria R30.0 and Mixed hyperlipidemia E78.2 [place] [id number] [place] [address] Jun, Major depressive disorder, recurrent episode, moderate F33.1 ; Generalized anxiety disorder F41.1 and Cannabis abuse F12.10 [place] [id number] [place] [address] Jun, [place] [id number] [place] [address] Jun, Generalized anxiety disorder F41.1 ; Major depressive disorder, recurrent episode, moderate F33.1 ; PTSD (post-traumatic stress disorder) F43.10 ; Opioid use disorder, moderate, in sustained remission F11.21 ; Cannabis abuse F12.10 ; Alcohol use disorder, mild, 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 ; Methamphetamine use disorder, severe, 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1 ; Generalized anxiety disorder F41.1 and Cannabis abuse F12.10 [facility] [id number] [id number] Mar, Dental examination Z01.20 [facility] [id number] [place] [id number] Feb, Dental examination Z01.20 [facility] [id number] [place] [address] Mar, [facility] [id number] [place] [address] Mar, [facility] [id number] [place] [address] Feb, Hyperlipidemia 272.4 and Prediabetes 790.29 [facility] [id number] [place] [address] Feb, Fatigue 780.79 and Hyperlipidemia 272.4 [facility] [id number] [place] [address] Feb, Lumbago 724.2 ; Hyperlipidemia 272.4 ; Insomnia 780.52 and Fatigue 780.79 [facility] [id number] [place] [address] Nov, [facility] [id number] [place] [address] Nov, [facility] [id number] [place] [address] Mar, [facility] [id number] [place] [address] Mar, [facility] [id number] [place] [address] Jan, [facility] [id number] [place] [address] Jan, [facility] [id number] [place] [address] December, [facility] [place] [facility] [address] [id number] [place] [address] December, [facility] [place] [facility] [address] [id number] [place] [address] Nov, [facility] [place] [facility] [address] [id number] [place] [address] Nov, [facility] [place] [facility] [address] [id number] [place] [address] Nov, [facility] [place] [facility] [address] [id number] [place] [address] Nov, [facility] [place] [facility] [address] [id number] [place] [address] Nov, [facility] [place] [facility] [address] [id number] [place] [address] Nov, [facility] [place] [facility] [address] [id number] [place] [address] Oct, [facility] [place] [facility] [address] [id number] [place] [address] 31 Oct, 2013 [facility] [place] [facility] [address] [id number] [place] [address] Oct, [facility] [place] [facility] [address] [id number] [place] [address] 20 Oct, 2013 [facility] [place] [facility] [address] [id number] [place] [address] 19 Oct, 2013 [facility] [place] [facility] [address] [id number] [place] [address] Oct, [facility] [place] [facility] [address] [id number] [place] [address] Oct, [facility] [place] [facility] [address] [id number] [place] [address] Oct, [facility] [place] [facility] [address] [id number] [place] [address] Oct, [facility] [place] [facility] [address] [id number] [place] [address] Oct, [facility] [place] [facility] [address] [id number] [place] [address] Oct, [facility] [place] [facility] [address] [facility] [id number] [place] [address] Oct, [facility] [place] [facility] [address] [id number] [place] [address] Oct, [facility] [place] [facility] [address] [id number] [place] [address] 24 Sep, 2013 [facility] [place] [facility] [address] [facility] [id number] [place] [address] 24 Sep, 2013 [facility] [place] [facility] [address] [facility] [id number] [place] [address] 20 Sep, 2013 [facility] [place] [facility] [address] [facility] [id number] [place] [address] 20 Sep, 2013 [facility] [place] [facility] [address] [facility] [id number] [place] [address] 20 Sep, 2013 [facility] [place] [facility] [address] [facility] [id number] [place] [address] 20 Sep, 2013 [facility] [place] [facility] [address] [facility] [id number] [place] [address] 18 Sep, 2013 [facility] [place] [facility] [address] [facility] [id number] [place] [address] 18 Sep, 2013 [facility] [place] [facility] [address] [facility] [id number] [place] [address] 14 Sep, 2013 [facility] [place] [facility] [address] [facility] [id number] [place] [address] 14 Sep, 2013 [facility] [place] [facility] [address] [facility] [id number] [place] [address] 14 Sep, 2013 [facility] [place] [facility] [address] [id number] [place] [address] 14 Sep, 2013 [facility] [place] [facility] [address] [id number] [place] [address] 14 Sep, 2013 [facility] [place] [facility] [address] [id number] [place] [address] 14 Sep, 2013 [facility] [place] [facility] [address] [id number] [place] [address] Sep, [facility] [place] [facility] [address] [id number] [place] [address] Sep, [facility] [place] [facility] [address] [id number] [place] [address] Sep, [facility] [place] [facility] [address] [id number] [place] [address] Sep, [facility] [place] [facility] [address] [id number] [place] [address] Sep, [facility] [place] [facility] [address] [id number] [place] [address] Sep, [facility] [place] [facility] [address] [id number] [place] [address] Aug, [facility] [place] [facility] [address] [id number] [place] [address] Aug, [facility] [place] [facility] [address] [id number] [place] [address] Aug, [facility] [place] [facility] [address] [id number] [place] [address] Aug, [facility] [place] [facility] [address] [id number] [place] [address] Aug, [facility] [place] [facility] [address] [id number] [place] [address] Jul, [facility] [place] [facility] [address] [id number] [place] [address] Jul, [facility] [address] [id number] [place] [address] Jul, [facility] [place] [facility] [address] [id number] [place] [address] Jul, [facility] [address] [id number] [place] [address] Jul, [facility] [place] [facility] [address] [id number] [place] [address] Jul, [facility] [address] [id number] [place] [address] Jul, [facility] [address] [id number] [place] [address] Jul, [facility] [place] [facility] [address] [id number] [place] [address] Jul, [facility] [address] [id number] [place] [address] Jun, [facility] [place] [facility] [address] [id number] [place] [address] Jun, [facility] [address] [id number] [place] [address] Jun, [facility] [place] [facility] [address] [id number] [place] [address] Jun, [facility] [place] [facility] [address] [id number] [place] [address] Jun, [facility] [place] [facility] [address] [id number] [place] [address] Jun, [facility] [place] [facility] [address] [id number] [place] [address] Jun, [facility] [place] [facility] [address] [id number] [place] [address] Jun, [facility] [place] [facility] [address] [id number] [place] [address] Jun, [facility] [place] [facility] [address] [id number] [place] [address] Jun, [facility] [place] [facility] [address] [id number] [place] [address] May, [facility] [place] [facility] [address] [id number] [place] [address] May, [facility] [place] [facility] [address] [id number] [place] [address] May, [facility] [place] [facility] [address] [id number] [place] [address] May, [facility] [place] [facility] [address] [id number] [place] [address] May, [facility] [place] [facility] [address] [id number], [place] [address] May, [facility] [place] [facility] [address] [id number] [place] [address] May, [facility] [place] [facility] [address] [id number], [place] [address] May, [facility] [place] [facility] [address] [id number], [place] [address] May, [facility] [place] [facility] [address] [id number], [place] [address] 26 Apr, 2013 [facility] [place] [facility] [address] [id number] [place] [address] 16 Apr, 2013 [facility] [place] [facility] [address] [id number], [place] [address] 12 Apr, 2013 [facility] [place] [facility] [address] [id number] [place] [address] 06 Apr, 2013 [facility] [place] [facility] [address] [id number] [place] [address] Mar, [facility] [address] [id number] [place] [address] Mar, [facility] [place] [facility] [address] [id number] [place] [address] Mar, [facility] [place] [facility] [address] [id number] [place] [address] Mar, [facility] [place] [facility] [address] [id number] [place] [address] Mar, [facility] [place] [facility] [address] [id number] [place] [address] Mar, [facility] [place] [facility] [address] [id number] [place] [address] Mar, [facility] [place] [facility] [address] [id number] [place] [address] Feb, [facility] [place] [facility] [address] [id number] [place] [address] Feb, [facility] [place] [facility] [address] [id number] [place] [address] Feb, [facility] [place] [facility] [address] [id number] [place] [address] Feb, [facility] [place] [facility] [address] [id number] [place] [address] Feb, [facility] [place] [facility] [address] [id number] [place] [address] Feb, [facility] [place] [facility] [address] [id number] [place] [address] Feb, [facility] [place] [facility] [address] [id number] [place] [address] Feb, [facility] [place] [facility] [address] [id number] [place] [address] Feb, [facility] [place] [facility] [address] [id number] [place] [address] Feb, [facility] [address] [id number] [place] [address] Feb, [facility] [place] [facility] [address] [id number] [place] [address] Jan, [facility] [place] [facility] [address] [id number] [place] [address] Jan, [facility] [address] [id number] [place] [address] December, [facility] [place] [facility] [address] [id number] [place] [address] December, [facility] [address] [id number] [place] [address] Nov, [facility] [address] [id number] [place] [address] Nov, [facility] [address] [id number] [place] [address] Oct, [facility] [address] [id number] [place] [address] Oct, [facility] [place] [facility] [address] [id number] [place] [address] Oct, [facility] [place] [facility] [address] [id number] [place] [address] Oct, [facility] [place] [facility] [address] [id number] [place] [address] Sep, [facility] [place] [facility] [address] [id number] [place] [address] Sep, [facility] [place] [facility] [address] [id number] [place] [address] Sep, [facility] [place] [facility] [address] [id number], [place] [address] Sep, [facility] [address] [id number] [place] [address] Aug, [facility] [place] [facility] [address] [id number] [place] [address] Aug, [facility] [place] [facility] [address] [id number] [place] [address] Jul, [facility] [place] [facility] [address] [id number] [place] [address] Jul, [facility] [place] [facility] [address] [id number] [place] [address] Jul, [facility] [place] [facility] [address] [id number] [place] [address] Jul, [facility] [place] [facility] [address] [id number] [place] [address] Jul, [facility] [place] [facility] [address] [id number] [place] [address] Jul, [facility] [place] [facility] [address] [id number] [place] [address] Jun, [facility] [place] [facility] [address] [id number] [place] [address] Jun, [facility] [place] [facility] [address] [id number], [place] [address] Jun, [facility] [place] [facility] [address] [id number], [place] [address] Jun, [facility] [place] [facility] [address] [id number], [place] [address] Jun, [facility] [place] [facility] [address] [id number] [place] [address] May, [facility] [place] [facility] [address] [id number] [place] [address] May, [facility] [place] [facility] [address] [id number] [place] [address] May, [facility] [place] [facility] [address] [id number] [place] [address] May, [facility] [place] [facility] [address] [id number] [place] [address] May, [facility] [place] [facility] [address] [id number] [place] [address] May, [facility] [place] [facility] [address] [id number] [place] [address] May, [facility] [place] [facility] [address] [id number] [place] [address] May, [facility] [place] [facility] [address] [id number] [place] [address] Mar, [facility] [place] [facility] [address] [id number] [place] [address] Mar, [facility] [place] [facility] [address] [id number] [place] [address] Mar, [facility] [place] [facility] [address] [id number] [place] [address] Feb, [facility] [place] [facility] [address] [id number] [place] [address] Feb, [facility] [place] [facility] [address] [id number] [place] [address] Feb, [facility] [place] [facility] [address] [id number] [place] [address] Feb, [facility] [place] [facility] [address] [id number] [place] [address] Jan, [facility] [place] [facility] [address] [id number] [place] [address] Jan, [facility] [place] [facility] [address] [id number] [place] [address] Jan, [facility] [address] [id number] [place] [address] December, [facility] [place] [facility] [address] [id number] [place] [address] Nov, [facility] [place] [facility] [address] [id number] [place] [address] Oct, [facility] [place] [facility] [address] [id number] [place] [address] Oct, [facility] [place] [facility] [address] [id number] [place] [address] Oct, [facility] [place] [facility] [address] [id number] [place] [address] Oct, [facility] [place] [facility] [address] [id number] [place] [address] Aug, [facility] [place] [facility] [address] [id number] [place] [address] Aug, [facility] [place] [facility] [address] [id number] [place] [address] Aug, [facility] [place] [facility] [address] [id number] [place] [address] Aug, [facility] [place] [facility] [address] [id number] [place] [address] Aug, [facility] [place] [facility] [address] [id number], [place] [address] Aug, [facility] [place] [facility] [address] [id number] [place] [address] Aug, [facility] [place] [facility] [address] [id number] [place] [address] Aug, [facility] [place] [facility] [address] [id number] [place] [address] Jul, [facility] [place] [facility] [address] [id number] [place] [address] 29 Jun, 2011 [facility] [address] [id number] [place] [address] 29 Jun, 2011 [facility] [place] [facility] [address] [id number] [place] [address] 31 Jul, 2010 [facility] [place] [facility] [address] [id number] [place] [address] 22 Jul, 2010 [facility] [place] [facility] [address] [id number] [place] [address] 22 Jul, 2010 [facility] [place] [facility] [address] [id number] [place] [address] 14 Jul, 2010 [facility] [place] [facility] [address] [id number] [place] [address] 14 Jul, 2010 [facility] [place] [facility] [address] [id number] [place] [address] 24 Jun, 2010 [facility] [place] [facility] [address] [id number] [place] [address] May, [facility] [place] [facility] [address] [id number] [place] [address] Mar, [facility] [place] [facility] [address] [facility] [id number] [place] [address] Oct, [facility] [place] [facility] [address] [id number] [place] [address] Aug, [facility] [place] [facility] [address] [id number] [place] [address] 15 Jul, 2009 [facility] [place] [facility] [address] [id number] [place] [address] Jul, [facility] [place] [facility] [address] [id number] [place] [address] Jun, [facility] [place] [facility] [address] [facility] [id number] [place] [address] Jun, [facility] [place] [facility] [address] [facility] [id number], [place] [address] May, [facility] [address] [id number], [place] [address] May, [facility] [address] [facility] [id number], [place] [address] Mar, [facility] [address] [facility] [id number], [place] [address] Mar, [facility] [address] [facility] [id number], [place] [address] Oct, IMMUNIZATIONS No Known Immunizations SOCIAL HISTORY Never Assessed REASON FOR VISIT [facility] PLAN OF CARE VITAL SIGNS MEDICATIONS Unknown [...] disc replacement L1- L5 - Dr Muhammad ([place]) Surgical History appendectomy 1983 Surgical History hysterectomy 1993 Surgical History dilatation and curettage Surgical History heart cath- Dr Shaw [address] Solano bowel and intestines sep2015 Surgical History Dr solano removed skin tag and cyst 2018 Hospitalization History Hospitalization for surgery only
--- OUTSIDE RECORDS SUMMARY | 2019-01-03 13:46 | XMS REPORT ---
Author Author Migration, Doctor Organization [facility] Address Unknown Phone Unavailable Care Team Providers Care Ethnographic Materials Conservator Name Role Phone Migration, Doctor Unavailable Unavailable PROBLEMS Type Condition ICD9-CM Code RMG69-GB Code Onset Dates Condition Status SNOMED Code Problem Prediabetes 790.29 Active 4289909 Problem Major depressive disorder, recurrent episode, moderate F33.1 Active 952296723 Problem Mixed hyperlipidemia E78.2 Active 067161313 Problem PTSD (post-traumatic stress disorder) F43.10 Active 07150578 Problem Tobacco use Z72.0 Active 877473489 Problem Alcohol use disorder, mild, 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 Active 61041457 Problem Cigarette nicotine dependence without complication F17.210 Active 84008862 Problem Cannabis abuse F12.10 Active 89050245 Problem Acute pain of left shoulder M25.512 Active 10439738 Problem Generalized anxiety disorder F41.1 Active 57830878 Problem Opioid use disorder, moderate, in sustained remission F11.21 Active 45602301 Problem Methamphetamine use disorder, severe, 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 Active 87297329 Problem Cocaine use disorder, moderate, in sustained remission F14.21 Active 97325764 Problem GERD with esophagitis K21.0 Active 098938268 ALLERGIES No Information ENCOUNTERS Encounter Location Date Diagnosis [place] [id number] [place] [id number] December, [place] [address] [place] [address] 15 Nov, 2018 Major depressive disorder, recurrent episode, moderate F33.1 ; Cannabis abuse F12.10 ; Generalized anxiety disorder F41.1 ; Methamphetamine use disorder, severe, 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 ; Alcohol use disorder, mild, 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 ; PTSD (post-traumatic stress disorder) F43.10 and Cocaine use disorder, moderate, in sustained remission F14.21 [place] [address] [place] [address] Oct, Major depressive disorder, recurrent episode, moderate F33.1 ; Cannabis abuse F12.10 ; Generalized anxiety disorder F41.1 ; Methamphetamine use disorder, severe, 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 ; Alcohol use disorder, mild, 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 ; PTSD (post-traumatic stress disorder) F43.10 and Cocaine use disorder, moderate, in sustained remission F14.21 [facility] [address] [place] [address] Sep, Major depressive disorder, recurrent episode, moderate F33.1 [facility] [address] [place] [id number] Aug, [facility] [id number] [place] [address] Jul, Dysuria R30.0 [facility] [id number] [place] [address] Jul, Major depressive disorder, recurrent episode, moderate F33.1 [facility] [id number] [place] [address] Jun, Major depressive disorder, recurrent episode, moderate F33.1 [facility] [id number] [place] [address] Jun, Major depressive disorder, recurrent episode, moderate F33.1 [facility] [address] [place] [address] Jun, Acute pain of left shoulder M25.512 and Cigarette nicotine dependence without complication F17.210 [facility] [id number] [place] [address] May, [facility] [address] [address] May, Cocaine use disorder, moderate, in sustained remission F14.21 [facility] [id number] [place] [address] May, [facility] [address] [place] [address] 12 May, 2018 Dental examination Z01.20 [facility] [address] [place] [id number] 09 May, 2018 Dental examination Z01.20 and Caries K02.9 [facility] [address] [place] [address] May, Common wart B07.8 [facility] [id number] [place] [address] May, [facility] [id number] [place] [address] 27 Apr, 2018 Cocaine use disorder, moderate, in sustained remission F14.21 [place] [id number] [place] [address] 14 Apr, 2018 [facility] [id number] [place] [address] [id number] 13 Apr, 2018 Dental examination Z01.20 [facility] [id number] [place] [address] [id number] 10 Mar, 2018 Encounter for dental exam and cleaning w/o abnormal findings Z01.20 [facility] [address] [place] [address] Mar, [facility] [id number] [place] [address] Feb, Cocaine use disorder, moderate, in sustained [...] depressive disorder, recurrent episode, moderate F33.1 [facility] [address] [address] Jan, Cocaine use disorder, moderate, in sustained remission F14.21 [facility] [id number] [address] Jan, Cocaine use disorder, moderate, in sustained [...] depressive disorder, recurrent episode, moderate F33.1 [facility] [address] [place] [address] Jan, Dysuria R30.0 and GERD with esophagitis K21.0 [place] [id number] [place] [address] December, Major depressive disorder, recurrent episode, moderate F33.1 [place] [address] [place] [address] December, [facility] [address] [place] [address] December, Major depressive disorder, recurrent episode, moderate [...] remission F10.11 and Tobacco use Z72.0 [facility] [address] [place] [address] Nov, [facility] [address] [id number] [address] Nov, [facility] [address] [address] 04 Apr, 2018 Wellness examination Z00.00 ; Encounter for immunization Z23 ; Screening for osteoporosis Z13.820 ; Screening for breast cancer Z12.31 and Left breast lump N63.20 [facility] [id number] [place] [address] [id number] Oct, Dental examination Z01.20 [facility] [id number] [place] [address] Oct, [facility] [address] [address] Oct, [facility] [id number] [place] [address] 16 Sep, 2017 [facility] [id number] [place] [address] 15 Sep, 2017 [facility] [id number] [place] [address] 14 Sep, 2017 Left otitis media with effusion H65.92 ; Acute suppurative otitis media of right ear without spontaneous rupture of tympanic membrane, recurrence not specified H66.001 ; Dizziness R42 and Fatigue 780.79 [facility] [id number] [place] [address] Aug, Major depressive disorder, recurrent episode, moderate [...] remission F10.11 and Tobacco use Z72.0 [facility] [id number] [place] [address] Aug, Ingrown right big toenail L60.0 [facility] [id number] [place] [address] Aug, [facility] [address] [place] [address] 15 Aug, 2017 PTSD (post-traumatic stress disorder) F43.10 [facility] [address] [place] [address] Aug, Major depressive disorder, recurrent episode, moderate F33.1 ; Generalized anxiety disorder F41.1 and Cannabis abuse F12.10 [facility] [address] [place] [address] Jul, [facility] [id number] [place] [address] Jul, [facility] [id number] [place] [address] Jul, [facility] [address] [place] [address] Jul, Major depressive disorder, recurrent episode, moderate F33.1 ; Generalized anxiety disorder F41.1 and Cannabis abuse F12.10 [facility] [address], [place] [address] Jul, [facility] [id number] [place] [address] Jul, [facility] [address], [place] [address] Jul, Hyperlipidemia 272.4 [facility] [address] [place] [address] Jul, PTSD (post-traumatic stress disorder) F43.10 [facility] [address], [place] [address] 14 Jul, 2017 Tobacco use Z72.0 ; [...] anxiety disorder F41.1 and Cannabis abuse F12.10 [place] [address] [place] [address] Jul, [facility] [id number] [place] [address] Jul, Dysuria R30.0 and Mixed hyperlipidemia E78.2 [place] [id number] [place] [address] Jun, Major depressive disorder, recurrent episode, moderate F33.1 ; Generalized anxiety disorder F41.1 and Cannabis abuse F12.10 [place] [id number] [place] [address] Jun, [place] [id number] [place] [address] Jun, Generalized anxiety disorder F41.1 ; Major depressive disorder, recurrent episode, moderate F33.1 ; PTSD (post-traumatic stress disorder) F43.10 ; Opioid use disorder, moderate, in sustained remission F11.21 ; Cannabis abuse F12.10 ; Alcohol use disorder, mild, 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 ; Methamphetamine use disorder, severe, 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 ; Cocaine use disorder, moderate, in sustained remission F14.21 and Tobacco use Z72.0 [place] [address], [place] [address] Jun, Major depressive disorder, recurrent episode, moderate F33.1 ; Generalized anxiety disorder F41.1 and Cannabis abuse F12.10 [place] [address], [place] [address] Jun, [place] [id number] [place] [address] Jun, [place] [address] [place] [address] Jun, Major depressive disorder, recurrent episode, moderate F33.1 ; Generalized anxiety disorder F41.1 and Cannabis abuse F12.10 [facility] [id number] [id number] Mar, Dental examination Z01.20 [facility] [id number] [place] [address] [id number] Feb, Dental examination Z01.20 [facility] [id number] [place] [address] Mar, [facility] [id number] [place] [address] Mar, [facility] [id number] [place] [address] Feb, Hyperlipidemia 272.4 and Prediabetes 790.29 [facility] [id number] [place] [address] Feb, Fatigue 780.79 and Hyperlipidemia 272.4 [facility] [id number] [place] [address] Feb, Lumbago 724.2 ; Hyperlipidemia 272.4 ; Insomnia 780.52 and Fatigue 780.79 [facility] [id number] [place] [address] Nov, [facility] [address] [place] [address] Nov, [facility] [id number] [place] [address] Mar, [facility] [id number] [place] [address] Mar, [facility] [id number] [place] [address] Jan, [facility] [id number] [place] [address] Jan, [facility] [id number] [place] [address] December, [facility] [place] [facility] [address] [id number] [place] [address] December, [facility] [place] [facility] [address] [id number] [place] [address] Nov, [facility] [place] [facility] [address] [id number] [place] [address] Nov, [facility] [place] [facility] [address] [id number] [place] [address] Nov, [facility] [place] [facility] [address] [id number] [place] [address] Nov, [facility] [place] [facility] [address] [id number] [place] [address] Nov, [facility] [place] [facility] [address] [id number] [place] [address] Nov, [facility] [place] [facility] [address] [id number] [place] [address] Oct, [facility] [place] [facility] [address] [id number] [place] [address] 31 Oct, 2013 [facility] [place] [facility] [address] [id number] [place] [address] Oct, [facility] [place] [facility] [address] [id number] [place] [address] 20 Oct, 2013 [facility] [place] [facility] [address] [id number] [place] [address] 19 Oct, 2013 [facility] [place] [facility] [address] [id number] [place] [address] Oct, [facility] [place] [facility] [address] [id number] [place] [address] Oct, [facility] [place] [facility] [address] [id number] [place] [address] Oct, [facility] [place] [facility] [address] [id number] [place] [address] Oct, [facility] [place] [facility] [address] [id number] [place] [address] Oct, [facility] [place] [facility] [address] [id number] [place] [address] Oct, [facility] [place] [facility] [address] [facility] [id number] [place] [address] Oct, [facility] [place] [facility] [address] [id number] [place] [address] Oct, [facility] [place] [facility] [address] [id number] [place] [address] 24 Sep, 2013 [facility] [place] [facility] [address] [facility] [id number] [place] [address] 24 Sep, 2013 [facility] [place] [facility] [address] [facility] [id number] [place] [address] 20 Sep, 2013 [facility] [place] [facility] [address] [facility] [id number] [place] [address] 20 Sep, 2013 [facility] [place] [facility] [address] [facility] [id number] [place] [address] 20 Sep, 2013 [facility] [place] [facility] [address] [facility] [id number] [place] [address] 20 Sep, 2013 [facility] [place] [facility] [address] [facility] [id number] [place] [address] 18 Sep, 2013 [facility] [place] [facility] [address] [facility] [id number] [place] [address] 18 Sep, 2013 [facility] [place] [facility] [address] [facility] [id number] [place] [address] 14 Sep, 2013 [facility] [place] [facility] [address] [facility] [id number] [place] [address] 14 Sep, 2013 [facility] [place] [facility] [address] [facility] [id number] [place] [address] 14 Sep, 2013 [facility] [place] [facility] [address] [id number] [place] [address] 14 Sep, 2013 [facility] [place] [facility] [address] [id number] [place] [address] 14 Sep, 2013 [facility] [place] [facility] [address] [id number] [place] [address] 14 Sep, 2013 [facility] [place] [facility] [address] [id number] [place] [address] Sep, [facility] [place] [facility] [address] [id number] [place] [address] Sep, [facility] [place] [facility] [address] [id number] [place] [address] Sep, [facility] [place] [facility] [address] [id number] [place] [address] Sep, [facility] [place] [facility] [address] [id number] [place] [address] Sep, [facility] [place] [facility] [address] [id number] [place] [address] Sep, [facility] [place] [facility] [address] [id number] [place] [address] Aug, [facility] [place] [facility] [address] [id number] [place] [address] Aug, [facility] [place] [facility] [address] [id number] [place] [address] Aug, [facility] [place] [facility] [address] [id number] [place] [address] Aug, [facility] [place] [facility] [address] [id number] [place] [address] Aug, [facility] [place] [facility] [address] [id number] [place] [address] Jul, [facility] [place] [facility] [address] [id number] [place] [address] Jul, [facility] [address] [id number] [place] [address] Jul, [facility] [place] [facility] [address] [id number] [place] [address] Jul, [facility] [address] [id number] [place] [address] Jul, [facility] [place] [facility] [address] [id number] [place] [address] Jul, [facility] [address] [id number] [place] [address] Jul, [facility] [address] [id number] [place] [address] Jul, [facility] [place] [facility] [address] [id number] [place] [address] Jul, [facility] [address] [id number] [place] [address] Jun, [facility] [place] [facility] [address] [id number] [place] [address] Jun, [facility] [address] [id number] [place] [address] Jun, [facility] [place] [facility] [address] [id number] [place] [address] Jun, [facility] [place] [facility] [address] [id number] [place] [address] Jun, [facility] [place] [facility] [address] [id number] [place] [address] Jun, [facility] [place] [facility] [address] [id number] [place] [address] Jun, [facility] [place] [facility] [address] [id number] [place] [address] Jun, [facility] [place] [facility] [address] [id number] [place] [address] Jun, [facility] [place] [facility] [address] [id number] [place] [address] Jun, [facility] [place] [facility] [address] [id number] [place] [address] May, [facility] [place] [facility] [address] [id number] [place] [address] May, [facility] [place] [facility] [address] [id number] [place] [address] May, [facility] [place] [facility] [address] [id number] [place] [address] May, [facility] [place] [facility] [address] [id number] [place] [address] May, [facility] [place] [facility] [address] [id number], [place] [address] May, [facility] [place] [facility] [address] [id number] [place] [address] May, [facility] [place] [facility] [address] [id number], [place] [address] May, [facility] [place] [facility] [address] [id number], [place] [address] May, [facility] [place] [facility] [address] [id number], [place] [address] 26 Apr, 2013 [facility] [place] [facility] [address] [id number] [place] [address] 16 Apr, 2013 [facility] [place] [facility] [address] [id number], [place] [address] 12 Apr, 2013 [facility] [place] [facility] [address] [id number] [place] [address] 06 Apr, 2013 [facility] [place] [facility] [address] [id number] [place] [address] Mar, [facility] [address] [id number] [place] [address] Mar, [facility] [place] [facility] [address] [id number] [place] [address] Mar, [facility] [place] [facility] [address] [id number] [place] [address] Mar, [facility] [place] [facility] [address] [id number] [place] [address] Mar, [facility] [place] [facility] [address] [id number] [place] [address] Mar, [facility] [place] [facility] [address] [id number] [place] [address] Mar, [facility] [place] [facility] [address] [id number] [place] [address] Feb, [facility] [place] [facility] [address] [id number] [place] [address] Feb, [facility] [place] [facility] [address] [id number] [place] [address] Feb, [facility] [place] [facility] [address] [id number] [place] [address] Feb, [facility] [place] [facility] [address] [id number] [place] [address] Feb, [facility] [place] [facility] [address] [id number] [place] [address] Feb, [facility] [place] [facility] [address] [id number] [place] [address] Feb, [facility] [place] [facility] [address] [id number] [place] [address] Feb, [facility] [place] [facility] [address] [id number] [place] [address] Feb, [facility] [place] [facility] [address] [id number] [place] [address] Feb, [facility] [address] [id number] [place] [address] Feb, [facility] [place] [facility] [address] [id number] [place] [address] Jan, [facility] [place] [facility] [address] [id number] [place] [address] Jan, [facility] [address] [id number] [place] [address] December, [facility] [place] [facility] [address] [id number] [place] [address] December, [facility] [address] [id number] [place] [address] Nov, [facility] [address] [id number] [place] [address] Nov, [facility] [address] [id number] [place] [address] Oct, [facility] [address] [id number] [place] [address] Oct, [facility] [place] [facility] [address] [id number] [place] [address] Oct, [facility] [place] [facility] [address] [id number] [place] [address] Oct, [facility] [place] [facility] [address] [id number] [place] [address] Sep, [facility] [place] [facility] [address] [id number] [place] [address] Sep, [facility] [place] [facility] [address] [id number] [place] [address] Sep, [facility] [place] [facility] [address] [id number] [address] Sep, [facility] [address] [id number] [place] [address] Aug, [facility] [place] [facility] [address] [id number] [place] [address] Aug, [facility] [place] [facility] [address] [id number] [place] [address] Jul, [facility] [place] [facility] [address] [id number] [place] [address] Jul, [facility] [place] [facility] [address] [id number] [place] [address] Jul, [facility] [place] [facility] [address] [id number] [place] [address] Jul, [facility] [place] [facility] [address] [id number] [place] [address] Jul, [facility] [place] [facility] [address] [id number] [place] [address] Jul, [facility] [place] [facility] [address] [id number] [place] [address] Jun, [facility] [place] [facility] [address] [id number] [place] [address] Jun, [facility] [place] [facility] [address] [id number], [place] [address] Jun, [facility] [place] [facility] [address] [id number], [place] [address] Jun, [facility] [place] [facility] [address] [id number], [place] [address] Jun, [facility] [place] [facility] [address] [id number] [place] [address] May, [facility] [place] [facility] [address] [id number] [place] [address] May, [facility] [place] [facility] [address] [id number] [place] [address] May, [facility] [place] [facility] [address] [id number] [place] [address] May, [facility] [place] [facility] [address] [id number] [place] [address] May, [facility] [place] [facility] [address] [id number] [place] [address] May, [facility] [place] [facility] [address] [id number] [place] [address] May, [facility] [place] [facility] [address] [id number] [place] [address] May, [facility] [place] [facility] [address] [id number] [place] [address] Mar, [facility] [place] [facility] [address] [id number] [place] [address] Mar, [facility] [place] [facility] [address] [id number] [place] [address] Mar, [facility] [place] [facility] [address] [id number] [place] [address] Feb, [facility] [place] [facility] [address] [id number] [place] [address] Feb, [facility] [place] [facility] [address] [id number] [place] [address] Feb, [facility] [place] [facility] [address] [id number] [place] [address] Feb, [facility] [place] [facility] [address] [id number] [place] [address] Jan, [facility] [place] [facility] [address] [id number] [place] [address] Jan, [facility] [place] [facility] [address] [id number] [place] [address] Jan, [facility] [address] [id number] [place] [address] December, [facility] [place] [facility] [address] [id number] [place] [address] Nov, [facility] [place] [facility] [address] [id number] [place] [address] Oct, [facility] [place] [facility] [address] [id number] [place] [address] Oct, [facility] [place] [facility] [address] [id number] [place] [address] Oct, [facility] [place] [facility] [address] [id number] [place] [address] Oct, [facility] [place] [facility] [address] [id number] [place] [address] Aug, [facility] [place] [facility] [address] [id number] [place] [address] Aug, [facility] [place] [facility] [address] [id number] [place] [address] Aug, [facility] [place] [facility] [address] [id number] [place] [address] Aug, [facility] [place] [facility] [address] [id number] [place] [address] Aug, [facility] [place] [facility] [address] [id number], [place] [address] Aug, [facility] [place] [facility] [address] [id number] [place] [address] Aug, [facility] [place] [facility] [address] [id number] [place] [address] Aug, [facility] [place] [facility] [address] [id number] [place] [address] Jul, [facility] [place] [facility] [address] [id number] [place] [address] 29 Jun, 2011 [facility] [address] [id number] [place] [address] 29 Jun, 2011 [facility] [place] [facility] [address] [id number] [place] [address] 31 Jul, 2010 [facility] [place] [facility] [address] [id number] [place] [address] 22 Jul, 2010 [facility] [place] [facility] [address] [id number] [place] [address] 22 Jul, 2010 [facility] [place] [facility] [address] [id number] [place] [address] 14 Jul, 2010 [facility] [place] [facility] [address] [id number] [place] [address] 14 Jul, 2010 [facility] [place] [facility] [address] [id number] [place] [address] 24 Jun, 2010 [facility] [place] [facility] [address] [id number] [place] [address] May, [facility] [place] [facility] [address] [id number] [place] [address] Mar, [facility] [place] [facility] [address] [facility] [id number] [place] [address] Oct, [facility] [place] [facility] [address] [id number] [place] [address] Aug, [facility] [place] [facility] [address] [id number] [place] [address] 15 Jul, 2009 [facility] [place] [facility] [address] [id number] [place] [address] Jul, [facility] [place] [facility] [address] [id number] [place] [address] Jun, [facility] [place] [facility] [address] [facility] [id number] [place] [address] Jun, [facility] [place] [facility] [address] [facility] [id number], [place] [address] May, [facility] [address] [id number], [place] [address] May, [facility] [address] [facility] [id number], [place] [address] Mar, [facility] [address] [facility] [id number], [place] [address] Mar, [facility] [address] [facility] [id number], [place] [address] Oct, IMMUNIZATIONS No Known Immunizations SOCIAL HISTORY Never Assessed REASON FOR VISIT [facility] PLAN OF CARE VITAL SIGNS MEDICATIONS Unknown [...] disc replacement L1- L5 - Dr Muhammad ([place]) Surgical History appendectomy 1983 Surgical History hysterectomy 1993 Surgical History dilatation and curettage Surgical History heart cath- Dr Shaw [address] Solano bowel and intestines sep2015 Surgical History Dr solano removed skin tag and cyst 2018 Hospitalization History Hospitalization for surgery only
--- OUTSIDE RECORDS SUMMARY | 2019-01-03 13:47 | XMS REPORT ---
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 Name Role Phone Migration, Doctor Unavailable Unavailable PROBLEMS Type Condition ICD9-CM Code [id number] Code Onset Dates Condition Status SNOMED Code Problem Prediabetes 790.29 Active 3324184 Problem Major depressive disorder, recurrent episode, moderate F33.1 Active 404336833 Problem Mixed hyperlipidemia E78.2 Active 078123666 Problem PTSD (post-traumatic stress disorder) F43.10 Active 95590539 Problem Tobacco use Z72.0 Active 442175876 Problem Alcohol use disorder, mild, 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 Active 59007532 Problem Cigarette nicotine dependence without complication F17.210 Active 31838302 Problem Cannabis abuse F12.10 Active 75486990 Problem Acute pain of left shoulder M25.512 Active 38572465 Problem Generalized anxiety disorder F41.1 Active 37179475 Problem Opioid use disorder, moderate, in sustained remission F11.21 Active 53333833 Problem Methamphetamine use disorder, severe, 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 Active 35215681 Problem Cocaine use disorder, moderate, in sustained remission F14.21 Active 55950305 Problem GERD with esophagitis K21.0 Active 693489709 ALLERGIES No Information ENCOUNTERS Encounter Location Date Diagnosis [place] [id number] [place] [address] December, [place] [id number] [place] [address] 15 Nov, 2018 Major depressive disorder, recurrent episode, moderate F33.1 ; Cannabis abuse F12.10 ; Generalized anxiety disorder F41.1 ; Methamphetamine use disorder, severe, 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 ; Alcohol use disorder, mild, 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 ; PTSD (post-traumatic stress disorder) F43.10 and Cocaine use disorder, moderate, in sustained remission F14.21 [place] [id number] [place] [address] Oct, Major depressive disorder, recurrent episode, moderate F33.1 ; Cannabis abuse F12.10 ; Generalized anxiety disorder F41.1 ; Methamphetamine use disorder, severe, 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 ; Alcohol use disorder, mild, 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 ; PTSD (post-traumatic stress disorder) F43.10 and Cocaine use disorder, moderate, in sustained remission F14.21 [facility] [id number] [place] [address] Sep, Major depressive disorder, recurrent episode, moderate F33.1 [facility] [id number] [place] [id number] Aug, [facility] [id number] [place] [address] Jul, Dysuria R30.0 [facility] [id number] [place] [address] Jul, Major depressive disorder, recurrent episode, moderate F33.1 [facility] [id number] [place] [address] Jun, Major depressive disorder, recurrent episode, moderate F33.1 [facility] [id number] [place] [address] Jun, Major depressive disorder, recurrent episode, moderate F33.1 [facility] [id number] [place] [address] Jun, Acute pain of left shoulder M25.512 and Cigarette nicotine dependence without complication F17.210 [facility] [id number] [place] [address] May, [facility] [address] [address] May, Cocaine use disorder, moderate, in sustained remission F14.21 [facility] [id number] [place] [address] May, [facility] [address] [place] [address] 12 May, 2018 Dental examination Z01.20 [facility] [id number] [place] [id number] 09 May, 2018 Dental examination Z01.20 and Caries K02.9 [facility] [id number] [place] [address] May, Common wart B07.8 [facility] [id number] [place] [address] May, [facility] [id number] [place] [address] 27 Apr, 2018 Cocaine use disorder, moderate, in sustained remission F14.21 [place] [id number] [place] [address] 14 Apr, 2018 [facility] [id number] [place] [id number] 13 Apr, 2018 Dental examination Z01.20 [facility] [id number] [place] [address] [id number] 10 Mar, 2018 Encounter for dental exam and cleaning w/o abnormal findings Z01.20 [facility] [id number] [place] [address] Mar, [facility] [id number] [place] [address] Feb, Cocaine use disorder, moderate, in sustained remission F14.21 ; Opioid use disorder, moderate, in sustained remission F11.21 ; Alcohol use disorder, mild, 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 ; Tobacco use Z72.0 ; PTSD (post-traumatic stress disorder) F43.10 ; Methamphetamine use disorder, severe, 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 ; Generalized anxiety disorder F41.1 ; Cannabis abuse F12.10 and Major depressive disorder, recurrent episode, moderate F33.1 [facility] [address] [address] Jan, Cocaine use disorder, moderate, in sustained remission F14.21 [facility] [id number] [address] Jan, Cocaine use disorder, moderate, in sustained remission F14.21 ; Opioid use disorder, moderate, in sustained remission F11.21 ; Alcohol use disorder, mild, 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 ; Tobacco use Z72.0 ; PTSD (post-traumatic stress disorder) F43.10 ; Methamphetamine use disorder, severe, 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 ; Generalized anxiety disorder F41.1 ; Cannabis abuse F12.10 and Major depressive disorder, recurrent episode, moderate F33.1 [facility] [id number] [place] [address] Jan, Dysuria R30.0 and GERD with esophagitis K21.0 [place] [id number] [place] [address] December, Major depressive disorder, recurrent episode, moderate F33.1 [place] [address] [place] [address] December, [facility] [address] [place] [address] December, Major depressive disorder, recurrent episode, moderate F33.1 ; Generalized anxiety disorder F41.1 ; Cannabis abuse F12.10 ; PTSD (post-traumatic stress disorder) F43.10 ; Methamphetamine use disorder, severe, 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 ; Cocaine use disorder, moderate, in sustained remission F14.21 ; Opioid use disorder, moderate, in sustained remission F11.21 ; Alcohol use disorder, mild, 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 and Tobacco use Z72.0 [facility] [address] [place] [address] Nov, [facility] [address] [id number] [address] Nov, [facility] [address] [address] 04 Apr, 2018 Wellness examination Z00.00 ; Encounter for immunization Z23 ; Screening for osteoporosis Z13.820 ; Screening for breast cancer Z12.31 and Left breast lump N63.20 [facility] [address] [id number] [place] [id number] Oct, Dental examination Z01.20 [facility] [id number] [place] [address] Oct, [facility] [address] [address] Oct, [facility] [id number] [place] [address] 16 Sep, 2017 [facility] [id number] [place] [address] 15 Sep, 2017 [facility] [id number] [place] [address] 14 Sep, 2017 Left otitis media with effusion H65.92 ; Acute suppurative otitis media of right ear without spontaneous rupture of tympanic membrane, recurrence not specified H66.001 ; Dizziness R42 and Fatigue 780.79 [facility] [id number] [place] [address] Aug, Major depressive disorder, recurrent episode, moderate F33.1 ; Generalized anxiety disorder F41.1 ; Cannabis abuse F12.10 ; PTSD (post-traumatic stress disorder) F43.10 ; Methamphetamine use disorder, severe, 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 ; Cocaine use disorder, moderate, in sustained remission F14.21 ; Opioid use disorder, moderate, in sustained remission F11.21 ; Alcohol use disorder, mild, 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 and Tobacco use Z72.0 [facility] [id number] [place] [address] Aug, Ingrown right big toenail L60.0 [facility] [id number] [place] [address] Aug, [facility] [address] [place] [address] 15 Aug, 2017 PTSD (post-traumatic stress disorder) F43.10 [facility] [address] [place] [address] Aug, Major depressive disorder, recurrent episode, moderate F33.1 ; Generalized anxiety disorder F41.1 and Cannabis abuse F12.10 [facility] [address] [place] [address] Jul, [facility] [id number] [place] [address] Jul, [facility] [id number] [place] [address] Jul, [facility] [address] [place] [address] Jul, Major depressive disorder, recurrent episode, moderate F33.1 ; Generalized anxiety disorder F41.1 and Cannabis abuse F12.10 [facility] [address], [place] [address] Jul, [facility] [id number] [place] [address] Jul, [facility] [address], [place] [address] Jul, Hyperlipidemia 272.4 [facility] [address] [place] [address] Jul, PTSD (post-traumatic stress disorder) F43.10 [facility] [address], [place] [address] 14 Jul, 2017 Tobacco use Z72.0 ; [...] anxiety disorder F41.1 and Cannabis abuse F12.10 [place] [address] [place] [address] Jul, [facility] [id number] [place] [address] Jul, Dysuria R30.0 and Mixed hyperlipidemia E78.2 [place] [id number] [place] [address] Jun, Major depressive disorder, recurrent episode, moderate F33.1 ; Generalized anxiety disorder F41.1 and Cannabis abuse F12.10 [place] [id number] [place] [address] Jun, [place] [id number] [place] [address] Jun, Generalized anxiety disorder F41.1 ; Major depressive disorder, recurrent episode, moderate F33.1 ; PTSD (post-traumatic stress disorder) F43.10 ; Opioid use disorder, moderate, in sustained remission F11.21 ; Cannabis abuse F12.10 ; Alcohol use disorder, mild, 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 ; Methamphetamine use disorder, severe, 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 ; Cocaine use disorder, moderate, in sustained remission F14.21 and Tobacco use Z72.0 [place] [address], [place] [address] Jun, Major depressive disorder, recurrent episode, moderate F33.1 ; Generalized anxiety disorder F41.1 and Cannabis abuse F12.10 [place] [address] [address] Jun, [place] [id number] [place] [address] Jun, [place] [address] [place] [address] Jun, Major depressive disorder, recurrent episode, moderate F33.1 ; Generalized anxiety disorder F41.1 and Cannabis abuse F12.10 [facility] [address] [id number] [id number] Mar, Dental examination Z01.20 [facility] [address] [id number] [place] [address] [id number] Feb, Dental examination Z01.20 [facility] [id number] [place] [address] Mar, [facility] [id number] [place] [address] Mar, [facility] [id number] [place] [address] Feb, Hyperlipidemia 272.4 and Prediabetes 790.29 [facility] [id number] [place] [address] Feb, Fatigue 780.79 and Hyperlipidemia 272.4 [facility] [address] [id number] [place] [address] Feb, Lumbago 724.2 ; Hyperlipidemia 272.4 ; Insomnia 780.52 and Fatigue 780.79 [facility] [id number] [place] [address] Nov, [facility] [address] [place] [address] Nov, [facility] [id number] [place] [address] Mar, [facility] [id number] [place] [address] Mar, [facility] [id number] [place] [address] Jan, [facility] [id number] [place] [address] Jan, [facility] [id number] [place] [address] December, [facility] [place] [facility] [address] [id number] [place] [address] December, [facility] [place] [facility] [address] [id number] [place] [address] Nov, [facility] [place] [facility] [address] [id number] [place] [address] Nov, [facility] [place] [facility] [address] [id number] [place] [address] Nov, [facility] [place] [facility] [address] [id number] [place] [address] Nov, [facility] [place] [facility] [address] [id number] [place] [address] Nov, [facility] [place] [facility] [address] [id number] [place] [address] Nov, [facility] [place] [facility] [address] [id number] [place] [address] Oct, [facility] [place] [facility] [address] [id number] [place] [address] 31 Oct, 2013 [facility] [place] [facility] [address] [id number] [place] [address] Oct, [facility] [place] [facility] [address] [id number] [place] [address] 20 Oct, 2013 [facility] [place] [facility] [address] [id number] [place] [address] 19 Oct, 2013 [facility] [place] [facility] [address] [id number] [place] [address] Oct, [facility] [place] [facility] [address] [id number] [place] [address] Oct, [facility] [place] [facility] [address] [id number] [place] [address] Oct, [facility] [place] [facility] [address] [id number] [place] [address] Oct, [facility] [place] [facility] [address] [id number] [place] [address] Oct, [facility] [place] [facility] [address] [id number] [place] [address] Oct, [facility] [place] [facility] [address] [facility] [id number] [place] [address] Oct, [facility] [place] [facility] [address] [id number] [place] [address] Oct, [facility] [place] [facility] [address] [id number] [place] [address] 24 Sep, 2013 [facility] [place] [facility] [address] [facility] [id number] [place] [address] 24 Sep, 2013 [facility] [place] [facility] [address] [facility] [id number] [place] [address] 20 Sep, 2013 [facility] [place] [facility] [address] [facility] [id number] [place] [address] 20 Sep, 2013 [facility] [place] [facility] [address] [facility] [id number] [place] [address] 20 Sep, 2013 [facility] [place] [facility] [address] [facility] [id number] [place] [address] 20 Sep, 2013 [facility] [place] [facility] [address] [facility] [id number] [place] [address] 18 Sep, 2013 [facility] [place] [facility] [address] [facility] [id number] [place] [address] 18 Sep, 2013 [facility] [place] [facility] [address] [facility] [id number] [place] [address] 14 Sep, 2013 [facility] [place] [facility] [address] [facility] [id number] [place] [address] 14 Sep, 2013 [facility] [place] [facility] [address] [facility] [id number] [place] [address] 14 Sep, 2013 [facility] [place] [facility] [address] [id number] [place] [address] 14 Sep, 2013 [facility] [place] [facility] [address] [id number] [place] [address] 14 Sep, 2013 [facility] [place] [facility] [address] [id number] [place] [address] 14 Sep, 2013 [facility] [place] [facility] [address] [id number] [place] [address] Sep, [facility] [place] [facility] [address] [id number] [place] [address] Sep, [facility] [place] [facility] [address] [id number] [place] [address] Sep, [facility] [place] [facility] [address] [id number] [place] [address] Sep, [facility] [place] [facility] [address] [id number] [place] [address] Sep, [facility] [place] [facility] [address] [id number] [place] [address] Sep, [facility] [place] [facility] [address] [id number] [place] [address] Aug, [facility] [place] [facility] [address] [id number] [place] [address] Aug, [facility] [place] [facility] [address] [id number] [place] [address] Aug, [facility] [place] [facility] [address] [id number] [place] [address] Aug, [facility] [place] [facility] [address] [id number] [place] [address] Aug, [facility] [place] [facility] [address] [id number] [place] [address] Jul, [facility] [place] [facility] [address] [id number] [place] [address] Jul, [facility] [address] [id number] [place] [address] Jul, [facility] [place] [facility] [address] [id number] [place] [address] Jul, [facility] [address] [id number] [place] [address] Jul, [facility] [place] [facility] [address] [id number] [place] [address] Jul, [facility] [address] [id number] [place] [address] Jul, [facility] [address] [id number] [place] [address] Jul, [facility] [place] [facility] [address] [id number] [place] [address] Jul, [facility] [address] [id number] [place] [address] Jun, [facility] [place] [facility] [address] [id number] [place] [address] Jun, [facility] [address] [id number] [place] [address] Jun, [facility] [place] [facility] [address] [id number] [place] [address] Jun, [facility] [place] [facility] [address] [id number] [place] [address] Jun, [facility] [place] [facility] [address] [id number] [place] [address] Jun, [facility] [place] [facility] [address] [id number] [place] [address] Jun, [facility] [place] [facility] [address] [id number] [place] [address] Jun, [facility] [place] [facility] [address] [id number] [place] [address] Jun, [facility] [place] [facility] [address] [id number] [place] [address] Jun, [facility] [place] [facility] [address] [id number] [place] [address] May, [facility] [place] [facility] [address] [id number] [place] [address] May, [facility] [place] [facility] [address] [id number] [place] [address] May, [facility] [place] [facility] [address] [id number] [place] [address] May, [facility] [place] [facility] [address] [id number] [place] [address] May, [facility] [place] [facility] [address] [id number], [place] [address] May, [facility] [place] [facility] [address] [id number] [place] [address] May, [facility] [place] [facility] [address] [id number], [place] [address] May, [facility] [place] [facility] [address] [id number], [place] [address] May, [facility] [place] [facility] [address] [id number], [place] [address] 26 Apr, 2013 [facility] [place] [facility] [address] [id number] [place] [address] 16 Apr, 2013 [facility] [place] [facility] [address] [id number], [place] [address] 12 Apr, 2013 [facility] [place] [facility] [address] [id number] [place] [address] 06 Apr, 2013 [facility] [place] [facility] [address] [id number] [place] [address] Mar, [facility] [address] [id number] [place] [address] Mar, [facility] [place] [facility] [address] [id number] [place] [address] Mar, [facility] [place] [facility] [address] [id number] [place] [address] Mar, [facility] [place] [facility] [address] [id number] [place] [address] Mar, [facility] [place] [facility] [address] [id number] [place] [address] Mar, [facility] [place] [facility] [address] [id number] [place] [address] Mar, [facility] [place] [facility] [address] [id number] [place] [address] Feb, [facility] [place] [facility] [address] [id number] [place] [address] Feb, [facility] [place] [facility] [address] [id number] [place] [address] Feb, [facility] [place] [facility] [address] [id number] [place] [address] Feb, [facility] [place] [facility] [address] [id number] [place] [address] Feb, [facility] [place] [facility] [address] [id number] [place] [address] Feb, [facility] [place] [facility] [address] [id number] [place] [address] Feb, [facility] [place] [facility] [address] [id number] [place] [address] Feb, [facility] [place] [facility] [address] [id number] [place] [address] Feb, [facility] [place] [facility] [address] [id number] [place] [address] Feb, [facility] [address] [id number] [place] [address] Feb, [facility] [place] [facility] [address] [id number] [place] [address] Jan, [facility] [place] [facility] [address] [id number] [place] [address] Jan, [facility] [address] [id number] [place] [address] December, [facility] [place] [facility] [address] [id number] [place] [address] December, [facility] [address] [id number] [place] [address] Nov, [facility] [address] [id number] [place] [address] Nov, [facility] [address] [id number] [place] [address] Oct, [facility] [address] [id number] [place] [address] Oct, [facility] [place] [facility] [address] [id number] [place] [address] Oct, [facility] [place] [facility] [address] [id number] [place] [address] Oct, [facility] [place] [facility] [address] [id number] [place] [address] Sep, [facility] [place] [facility] [address] [id number] [place] [address] Sep, [facility] [facility] [address] [id number] [place] [address] Sep, [facility] [place] [facility] [address] [id number], [place] [address] Sep, [facility] [address] [id number] [place] [address] Aug, [facility] [place] [facility] [address] [id number] [place] [address] Aug, [facility] [place] [facility] [address] [id number] [place] [address] Jul, [facility] [place] [facility] [address] [id number] [place] [address] Jul, [facility] [place] [facility] [address] [id number] [place] [address] Jul, [facility] [place] [facility] [address] [id number] [place] [address] Jul, [facility] [place] [facility] [address] [id number] [place] [address] Jul, [facility] [place] [facility] [address] [id number] [place] [address] Jul, [facility] [place] [facility] [address] [id number] [place] [address] Jun, [facility] [place] [facility] [address] [id number] [place] [address] Jun, [facility] [place] [facility] [address] [id number], [place] [address] Jun, [facility] [place] [facility] [address] [id number], [place] [address] Jun, [facility] [address] [id number], [place] [address] Jun, [facility] [place] [facility] [address] [id number] [place] [address] May, [facility] [place] [facility] [address] [id number] [place] [address] May, [facility] [place] [facility] [address] [id number] [place] [address] May, [facility] [place] [facility] [address] [id number] [place] [address] May, [facility] [place] [facility] [address] [id number] [place] [address] May, [facility] [place] [facility] [address] [id number] [place] [address] May, [facility] [place] [facility] [address] [id number] [place] [address] May, [facility] [place] [facility] [address] [id number] [place] [address] May, [facility] [place] [facility] [address] [id number] [place] [address] Mar, [facility] [place] [facility] [address] [id number] [place] [address] Mar, [facility] [place] [facility] [address] [id number] [place] [address] Mar, [facility] [place] [facility] [address] [id number] [place] [address] Feb, [facility] [place] [facility] [address] [id number] [place] [address] Feb, [facility] [address] [id number] [place] [address] Feb, [facility] [place] [address] [id number] [place] [address] Feb, [facility] [place] [facility] [address] [id number] [place] [address] Jan, [facility] [place] [facility] [address] [id number] [place] [address] Jan, [facility] [address] [id number] [place] [address] Jan, [facility] [address] [id number] [place] [address] December, [facility] [address] [id number] [place] [address] Nov, [facility] [address] [id number] [place] [address] Oct, [facility] [facility] [address] [id number] [place] [address] Oct, [facility] [place] [address] [id number] [place] [address] Oct, [facility] [address] [id number] [place] [address] Oct, [facility] [place] [facility] [address] [id number] [place] [address] Aug, [facility] [place] [address] [id number] [place] [address] Aug, [facility] [address] [id number] [place] [address] Aug, [facility] [address] [id number] [place] [address] Aug, [facility] [address] [id number] [place] [address] Aug, [facility] [address] [id number], [place] [address] Aug, [facility] [address] [id number] [place] [address] Aug, [facility] [address] [id number] [place] [address] Aug, [facility] [address] [id number] [place] [address] Jul, [facility] [address] [id number] [place] [address] 29 Jun, 2011 [facility] [address] [id number] [place] [address] 29 Jun, 2011 [facility] [address] [id number] [place] [address] 31 Jul, 2010 [facility] [address] [id number] [place] [address] 22 Jul, 2010 [facility] [address] [id number] [place] [address] 22 Jul, 2010 [facility] [address] [id number] [place] [address] 14 Jul, 2010 [facility] [address] [id number] [place] [address] 14 Jul, 2010 [facility] [address] [id number] [place] [address] 24 Jun, 2010 [facility] [facility] [address] [id number] [place] [address] May, [facility] [place] [facility] [address] [id number] [place] [address] Mar, [facility] [address] [facility] [id number] [place] [address] Oct, [facility] [address] [id number] [place] [address] Aug, [facility] [address] [id number] [place] [address] 15 Jul, 2009 [facility] [address] [id number] [place] [address] Jul, [facility] [address] [id number] [place] [address] Jun, [facility] [address] [facility] [id number] [place] [address] Jun, [facility] [address] [facility] [id number], [place] [address] May, [facility] [address] [id number], [place] [address] May, [facility] [address] [facility] [id number], [place] [address] Mar, [facility] [address] [facility] [id number], [place] [address] Mar, [facility] [address] [facility] [id number], [place] [address] Oct, IMMUNIZATIONS No Known Immunizations SOCIAL HISTORY Never Assessed REASON FOR VISIT [facility] PLAN OF CARE VITAL SIGNS MEDICATIONS Unknown [...] disc replacement L1- L5 - Dr Muhammad ([employer]) Surgical History appendectomy 1983 Surgical History hysterectomy 1993 Surgical History dilatation and curettage Surgical History heart cath- Dr Shaw [address] Solano bowel and intestines sep2015 Surgical History [address] solano removed skin tag and cyst 2018 Hospitalization History Hospitalization for surgery only
--- OUTSIDE RECORDS SUMMARY | 2019-01-03 13:48 | XMS REPORT ---
Author Author Migration, Doctor Organization [facility] Address Unknown Phone Unavailable Care Team Providers [employer] Driver Name Role Phone Migration, Doctor Unavailable Unavailable PROBLEMS Type Condition ICD9-CM Code CSQ00-UI Code Onset Dates Condition Status SNOMED Code Problem Prediabetes 790.29 Active 8323281 Problem Major depressive disorder, recurrent episode, moderate F33.1 Active 417782658 Problem Mixed hyperlipidemia E78.2 Active 681782193 Problem PTSD (post-traumatic stress disorder) F43.10 Active 20101820 Problem Tobacco use Z72.0 Active 195049045 Problem Alcohol use disorder, mild, 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 Active 12808245 Problem Cigarette nicotine dependence without complication F17.210 Active 71448166 Problem Cannabis abuse F12.10 Active 51187456 Problem Acute pain of left shoulder M25.512 Active 25411005 Problem Generalized anxiety disorder F41.1 Active 95107745 Problem Opioid use disorder, moderate, in sustained remission F11.21 Active 49853702 Problem Methamphetamine use disorder, severe, 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 Active 46246593 Problem Cocaine use disorder, moderate, in sustained remission F14.21 Active 58868486 Problem GERD with esophagitis K21.0 Active 564830458 ALLERGIES No Information ENCOUNTERS Encounter Location Date Diagnosis [place] [id number] [place] [address] December, [place] [address] [place] [address] 15 Nov, 2018 Major depressive disorder, recurrent episode, moderate F33.1 ; Cannabis abuse F12.10 ; Generalized anxiety disorder F41.1 ; Methamphetamine use disorder, severe, 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 ; Alcohol use disorder, mild, 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 ; PTSD (post-traumatic stress disorder) F43.10 and Cocaine use disorder, moderate, in sustained remission F14.21 [place] [id number] [place] [address] Oct, Major depressive disorder, recurrent episode, moderate F33.1 ; Cannabis abuse F12.10 ; Generalized anxiety disorder F41.1 ; Methamphetamine use disorder, severe, 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 ; Alcohol use disorder, mild, 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 ; PTSD (post-traumatic stress disorder) F43.10 and Cocaine use disorder, moderate, in sustained remission F14.21 [facility] [address] [place] [address] Sep, Major depressive disorder, recurrent episode, moderate F33.1 [facility] [address] [place] [id number] Aug, [facility] [id number] [place] [address] Jul, Dysuria R30.0 [facility] [id number] [place] [address] Jul, Major depressive disorder, recurrent episode, moderate F33.1 [facility] [id number] [place] [address] Jun, Major depressive disorder, recurrent episode, moderate F33.1 [facility] [id number] [place] [address] Jun, Major depressive disorder, recurrent episode, moderate F33.1 [facility] [address] [place] [address] Jun, Acute pain of left shoulder M25.512 and Cigarette nicotine dependence without complication F17.210 [facility] [id number] [place] [address] May, [facility] [address] [address] May, Cocaine use disorder, moderate, in sustained remission F14.21 [facility] [id number] [place] [address] May, [facility] [address] [place] [address] 12 May, 2018 Dental examination Z01.20 [facility] [address] [place] [id number] 09 May, 2018 Dental examination Z01.20 and Caries K02.9 [facility] [address] [place] [address] May, Common wart B07.8 [facility] [id number] [place] [address] May, [facility] [id number] [place] [address] 27 Apr, 2018 Cocaine use disorder, moderate, in sustained remission F14.21 [place] [id number] [place] [address] 14 Apr, 2018 [facility] [id number] [place] [id number] 13 Apr, 2018 Dental examination Z01.20 [facility] [id number] [place] [address] [id number] 10 Mar, 2018 Encounter for dental exam and cleaning w/o abnormal findings Z01.20 [facility] [address] [place] [address] Mar, [facility] [id number] [place] [address] Feb, Cocaine use disorder, moderate, in sustained remission F14.21 ; Opioid use disorder, moderate, in sustained remission F11.21 ; Alcohol use disorder, mild, 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 ; Tobacco use Z72.0 ; PTSD (post-traumatic stress disorder) F43.10 ; Methamphetamine use disorder, severe, 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 ; Generalized anxiety disorder F41.1 ; Cannabis abuse F12.10 and Major depressive disorder, recurrent episode, moderate F33.1 [facility] [address] [address] Jan, Cocaine use disorder, moderate, in sustained remission F14.21 [facility] [id number] [address] Jan, Cocaine use disorder, moderate, in sustained remission F14.21 ; Opioid use disorder, moderate, in sustained remission F11.21 ; Alcohol use disorder, mild, 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 ; Tobacco use Z72.0 ; PTSD (post-traumatic stress disorder) F43.10 ; Methamphetamine use disorder, severe, 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 ; Generalized anxiety disorder F41.1 ; Cannabis abuse F12.10 and Major depressive disorder, recurrent episode, moderate F33.1 [facility] [address] [place] [address] Jan, Dysuria R30.0 and GERD with esophagitis K21.0 [place] [id number] [place] [address] December, Major depressive disorder, recurrent episode, moderate F33.1 [place] [address] [place] [address] December, [facility] [address] [place] [address] December, Major depressive disorder, recurrent episode, moderate F33.1 ; Generalized anxiety disorder F41.1 ; Cannabis abuse F12.10 ; PTSD (post-traumatic stress disorder) F43.10 ; Methamphetamine use disorder, severe, 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 ; Cocaine use disorder, moderate, in sustained remission F14.21 ; Opioid use disorder, moderate, in sustained remission F11.21 ; Alcohol use disorder, mild, 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 and Tobacco use Z72.0 [facility] [address] [place] [address] Nov, [facility] [address] [id number] [address] Nov, [facility] [address] [address] 04 Apr, 2018 Wellness examination Z00.00 ; Encounter for immunization Z23 ; Screening for osteoporosis Z13.820 ; Screening for breast cancer Z12.31 and Left breast lump N63.20 [facility] [id number] [place] [address] [id number] Oct, Dental examination Z01.20 [facility] [id number] [place] [address] Oct, [facility] [address] [address] Oct, [facility] [id number] [place] [address] 16 Sep, 2017 [facility] [id number] [place] [address] 15 Sep, 2017 [facility] [id number] [place] [address] 14 Sep, 2017 Left otitis media with effusion H65.92 ; Acute suppurative otitis media of right ear without spontaneous rupture of tympanic membrane, recurrence not specified H66.001 ; Dizziness R42 and Fatigue 780.79 [facility] [id number] [place] [address] Aug, Major depressive disorder, recurrent episode, moderate [...] [facility] [id number] [place] [address] Aug, Ingrown right big toenail L60.0 [facility] [id number] [place] [address] Aug, [facility] [address] [place] [address] 15 Aug, 2017 PTSD (post-traumatic stress disorder) F43.10 [facility] [address] [place] [address] Aug, Major depressive disorder, recurrent episode, moderate F33.1 ; Generalized anxiety disorder F41.1 and Cannabis abuse F12.10 [facility] [address] [place] [address] Jul, [facility] [id number] [place] [address] Jul, [facility] [id number] [place] [address] Jul, [facility] [address] [place] [address] Jul, Major depressive disorder, recurrent episode, moderate F33.1 ; Generalized anxiety disorder F41.1 and Cannabis abuse F12.10 [facility] [address] [address] Jul, [facility] [id number] [place] [address] Jul, [facility] [address] [address] Jul, Hyperlipidemia 272.4 [facility] [address] [place] [address] Jul, PTSD (post-traumatic stress disorder) F43.10 [facility] [address] [address] 14 Jul, 2017 Tobacco use Z72.0 ; [...] anxiety disorder F41.1 and Cannabis abuse F12.10 [place] [address] [place] [address] Jul, [facility] [id number] [place] [address] Jul, Dysuria R30.0 and Mixed hyperlipidemia E78.2 [place] [id number] [place] [address] Jun, Major depressive disorder, recurrent episode, moderate F33.1 ; Generalized anxiety disorder F41.1 and Cannabis abuse F12.10 [place] [id number] [place] [address] Jun, [place] [id number] [place] [address] Jun, Generalized anxiety disorder F41.1 ; Major depressive disorder, recurrent episode, moderate F33.1 ; PTSD (post-traumatic stress disorder) F43.10 ; Opioid use disorder, moderate, in sustained remission F11.21 ; Cannabis abuse F12.10 ; Alcohol use disorder, mild, 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 ; Methamphetamine use disorder, severe, 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 ; Cocaine use disorder, moderate, in sustained remission F14.21 and Tobacco use Z72.0 [place] [address] [address] Jun, Major depressive disorder, recurrent episode, moderate F33.1 ; Generalized anxiety disorder F41.1 and Cannabis abuse F12.10 [place] [address] [address] Jun, [place] [id number] [place] [address] Jun, [place] [address] [place] [address] Jun, Major depressive disorder, recurrent episode, moderate F33.1 ; Generalized anxiety disorder F41.1 and Cannabis abuse F12.10 [facility] [id number] [id number] Mar, Dental examination Z01.20 [facility] [id number] [place] [address] [phone] Feb, Dental examination Z01.20 [facility] [id number] [place] [address] Mar, [facility] [id number] [place] [address] Mar, [facility] [id number] [place] [address] Feb, Hyperlipidemia 272.4 and Prediabetes 790.29 [facility] [id number] [place] [address] Feb, Fatigue 780.79 and Hyperlipidemia 272.4 [facility] [id number] [place] [address] Feb, Lumbago 724.2 ; Hyperlipidemia 272.4 ; Insomnia 780.52 and Fatigue 780.79 [facility] [id number] [place] [address] Nov, [facility] [address] [place] [address] Nov, [facility] [id number] [place] [address] Mar, [facility] [id number] [place] [address] Mar, [facility] [id number] [place] [address] Jan, [facility] [id number] [place] [address] Jan, [facility] [id number] [place] [address] December, [facility] [place] [facility] [address] [id number] [place] [address] December, [facility] [place] [facility] [address] [id number] [place] [address] Nov, [facility] [place] [facility] [address] [id number] [place] [address] Nov, [facility] [place] [facility] [address] [id number] [place] [address] Nov, [facility] [place] [facility] [address] [id number] [place] [address] Nov, [facility] [place] [facility] [address] [id number] [place] [address] Nov, [facility] [place] [facility] [address] [id number] [place] [address] Nov, [facility] [place] [facility] [address] [id number] [place] [address] Oct, [facility] [place] [facility] [address] [id number] [place] [address] 31 Oct, 2013 [facility] [place] [facility] [address] [id number] [place] [address] Oct, [facility] [place] [facility] [address] [id number] [place] [address] 20 Oct, 2013 [facility] [place] [facility] [address] [id number] [place] [address] 19 Oct, 2013 [facility] [place] [facility] [address] [id number] [place] [address] Oct, [facility] [place] [facility] [address] [id number] [place] [address] Oct, [facility] [place] [facility] [address] [id number] [place] [address] Oct, [facility] [place] [facility] [address] [id number] [place] [address] Oct, [facility] [place] [facility] [address] [id number] [place] [address] Oct, [facility] [place] [facility] [address] [id number] [place] [address] Oct, [facility] [place] [facility] [address] [facility] [id number] [place] [address] Oct, [facility] [place] [facility] [address] [id number] [place] [address] Oct, [facility] [place] [facility] [address] [id number] [place] [address] 24 Sep, 2013 [facility] [place] [facility] [address] [facility] [id number] [place] [address] 24 Sep, 2013 [facility] [place] [facility] [address] [facility] [id number] [place] [address] 20 Sep, 2013 [facility] [place] [facility] [address] [facility] [id number] [place] [address] 20 Sep, 2013 [facility] [place] [facility] [address] [facility] [id number] [place] [address] 20 Sep, 2013 [facility] [place] [facility] [address] [facility] [id number] [place] [address] 20 Sep, 2013 [facility] [place] [facility] [address] [facility] [id number] [place] [address] 18 Sep, 2013 [facility] [place] [facility] [address] [facility] [id number] [place] [address] 18 Sep, 2013 [facility] [place] [facility] [address] [facility] [id number] [place] [address] 14 Sep, 2013 [facility] [place] [facility] [address] [facility] [id number] [place] [address] 14 Sep, 2013 [facility] [place] [facility] [address] [facility] [id number] [place] [address] 14 Sep, 2013 [facility] [place] [facility] [address] [id number] [place] [address] 14 Sep, 2013 [facility] [place] [facility] [address] [id number] [place] [address] 14 Sep, 2013 [facility] [place] [facility] [address] [id number] [place] [address] 14 Sep, 2013 [facility] [place] [facility] [address] [id number] [place] [address] Sep, [facility] [place] [facility] [address] [id number] [place] [address] Sep, [facility] [place] [facility] [address] [id number] [place] [address] Sep, [facility] [place] [facility] [address] [id number] [place] [address] Sep, [facility] [place] [facility] [address] [id number] [place] [address] Sep, [facility] [place] [facility] [address] [id number] [place] [address] Sep, [facility] [place] [facility] [address] [id number] [place] [address] Aug, [facility] [place] [facility] [address] [id number] [place] [address] Aug, [facility] [place] [facility] [address] [id number] [place] [address] Aug, [facility] [place] [facility] [address] [id number] [place] [address] Aug, [facility] [place] [facility] [address] [id number] [place] [address] Aug, [facility] [place] [facility] [address] [id number] [place] [address] Jul, [facility] [place] [facility] [address] [id number] [place] [address] Jul, [facility] [address] [id number] [place] [address] Jul, [facility] [place] [facility] [address] [id number] [place] [address] Jul, [facility] [address] [id number] [place] [address] Jul, [facility] [place] [facility] [address] [id number] [place] [address] Jul, [facility] [address] [id number] [place] [address] Jul, [facility] [address] [id number] [place] [address] Jul, [facility] [place] [facility] [address] [id number] [place] [address] Jul, [facility] [address] [id number] [place] [address] Jun, [facility] [place] [facility] [address] [id number] [place] [address] Jun, [facility] [address] [id number] [place] [address] Jun, [facility] [place] [facility] [address] [id number] [place] [address] Jun, [facility] [place] [facility] [address] [id number] [place] [address] Jun, [facility] [place] [facility] [address] [id number] [place] [address] Jun, [facility] [place] [facility] [address] [id number] [place] [address] Jun, [facility] [place] [facility] [address] [id number] [place] [address] Jun, [facility] [place] [facility] [address] [id number] [place] [address] Jun, [facility] [place] [facility] [address] [id number] [place] [address] Jun, [facility] [place] [facility] [address] [id number] [place] [address] May, [facility] [place] [facility] [address] [id number] [place] [address] May, [facility] [place] [facility] [address] [id number] [place] [address] May, [facility] [place] [facility] [address] [id number] [place] [address] May, [facility] [place] [facility] [address] [id number] [place] [address] May, [facility] [place] [facility] [address] [id number], [place] [address] May, [facility] [place] [facility] [address] [id number] [place] [address] May, [facility] [place] [facility] [address] [id number] [address] May, [facility] [place] [facility] [address] [id number], [place] [address] May, [facility] [place] [facility] [address] [id number], [place] [address] 26 Apr, 2013 [facility] [place] [facility] [address] [id number] [place] [address] 16 Apr, 2013 [facility] [place] [facility] [address] [id number], [place] [address] 12 Apr, 2013 [facility] [place] [facility] [address] [id number] [place] [address] 06 Apr, 2013 [facility] [place] [facility] [address] [id number] [place] [address] Mar, [facility] [address] [id number] [place] [address] Mar, [facility] [place] [facility] [address] [id number] [place] [address] Mar, [facility] [place] [facility] [address] [id number] [place] [address] Mar, [facility] [place] [facility] [address] [id number] [place] [address] Mar, [facility] [place] [facility] [address] [id number] [place] [address] Mar, [facility] [place] [facility] [address] [id number] [place] [address] Mar, [facility] [place] [facility] [address] [id number] [place] [address] Feb, [facility] [place] [facility] [address] [id number] [place] [address] Feb, [facility] [place] [facility] [address] [id number] [place] [address] Feb, [facility] [place] [facility] [address] [id number] [place] [address] Feb, [facility] [place] [facility] [address] [id number] [place] [address] Feb, [facility] [place] [facility] [address] [id number] [place] [address] Feb, [facility] [place] [facility] [address] [id number] [place] [address] Feb, [facility] [place] [facility] [address] [id number] [place] [address] Feb, [facility] [place] [facility] [address] [id number] [place] [address] Feb, [facility] [place] [facility] [address] [id number] [place] [address] Feb, [facility] [address] [id number] [place] [address] Feb, [facility] [place] [facility] [address] [id number] [place] [address] Jan, [facility] [place] [facility] [address] [id number] [place] [address] Jan, [facility] [address] [id number] [place] [address] December, [facility] [place] [facility] [address] [id number] [place] [address] December, [facility] [address] [id number] [place] [address] Nov, [facility] [address] [id number] [place] [address] Nov, [facility] [address] [id number] [place] [address] Oct, [facility] [address] [id number] [place] [address] Oct, [facility] [place] [facility] [address] [id number] [place] [address] Oct, [facility] [place] [facility] [address] [id number] [place] [address] Oct, [facility] [place] [facility] [address] [id number] [place] [address] Sep, [facility] [place] [facility] [address] [id number] [place] [address] Sep, [facility] [place] [facility] [address] [id number] [place] [address] Sep, [facility] [place] [facility] [address] [id number], [place] [address] Sep, [facility] [address] [id number] [place] [address] Aug, [facility] [place] [facility] [address] [id number] [place] [address] Aug, [facility] [place] [facility] [address] [id number] [place] [address] Jul, [facility] [place] [facility] [address] [id number] [place] [address] Jul, [facility] [place] [facility] [address] [id number] [place] [address] Jul, [facility] [place] [facility] [address] [id number] [place] [address] Jul, [facility] [place] [facility] [address] [id number] [place] [address] Jul, [facility] [place] [facility] [address] [id number] [place] [address] Jul, [facility] [place] [facility] [address] [id number] [place] [address] Jun, [facility] [place] [facility] [address] [id number] [place] [address] Jun, [facility] [place] [facility] [address] [id number], [place] [address] Jun, [facility] [place] [facility] [address] [id number], [place] [address] Jun, [facility] [place] [facility] [address] [id number], [place] [address] Jun, [facility] [place] [facility] [address] [id number] [place] [address] May, [facility] [place] [facility] [address] [id number] [place] [address] May, [facility] [place] [facility] [address] [id number] [place] [address] May, [facility] [place] [facility] [address] [id number] [place] [address] May, [facility] [place] [facility] [address] [id number] [place] [address] May, [facility] [place] [facility] [address] [id number] [place] [address] May, [facility] [place] [facility] [address] [id number] [place] [address] May, [facility] [place] [facility] [address] [id number] [place] [address] May, [facility] [place] [facility] [address] [id number] [place] [address] Mar, [facility] [place] [facility] [address] [id number] [place] [address] Mar, [facility] [place] [facility] [address] [id number] [place] [address] Mar, [facility] [place] [facility] [address] [id number] [place] [address] Feb, [facility] [place] [facility] [address] [id number] [place] [address] Feb, [facility] [place] [facility] [address] [id number] [place] [address] Feb, [facility] [place] [facility] [address] [id number] [place] [address] Feb, [facility] [place] [facility] [address] [id number] [place] [address] Jan, [facility] [place] [facility] [address] [id number] [place] [address] Jan, [facility] [place] [facility] [address] [id number] [place] [address] Jan, [facility] [address] [id number] [place] [address] December, [facility] [place] [facility] [address] [id number] [place] [address] Nov, [facility] [place] [facility] [address] [id number] [place] [address] Oct, [facility] [place] [facility] [address] [id number] [place] [address] Oct, [facility] [place] [facility] [address] [id number] [place] [address] Oct, [facility] [place] [facility] [address] [id number] [place] [address] Oct, [facility] [place] [facility] [address] [id number] [place] [address] Aug, [facility] [place] [facility] [address] [id number] [place] [address] Aug, [facility] [place] [facility] [address] [id number] [place] [address] Aug, [facility] [place] [facility] [address] [id number] [place] [address] Aug, [facility] [place] [facility] [address] [id number] [place] [address] Aug, [facility] [place] [facility] [address] [id number], [place] [address] Aug, [facility] [place] [facility] [address] [id number] [place] [address] Aug, [facility] [place] [facility] [address] [id number] [place] [address] Aug, [facility] [place] [facility] [address] [id number] [place] [address] Jul, [facility] [place] [facility] [address] [id number] [place] [address] 29 Jun, 2011 [facility] [address] [id number] [place] [address] 29 Jun, 2011 [facility] [place] [facility] [address] [id number] [place] [address] 31 Jul, 2010 [facility] [place] [facility] [address] [id number] [place] [address] 22 Jul, 2010 [facility] [place] [facility] [address] [id number] [place] [address] 22 Jul, 2010 [facility] [place] [facility] [address] [id number] [place] [address] 14 Jul, 2010 [facility] [place] [facility] [address] [id number] [place] [address] 14 Jul, 2010 [facility] [place] [facility] [address] [id number] [place] [address] 24 Jun, 2010 [facility] [place] [facility] [address] [id number] [place] [address] May, [facility] [place] [facility] [address] [id number] [place] [address] Mar, [facility] [place] [facility] [address] [facility] [id number] [place] [address] Oct, [facility] [place] [facility] [address] [id number] [place] [address] Aug, [facility] [place] [facility] [address] [id number] [place] [address] 15 Jul, 2009 [facility] [place] [facility] [address] [id number] [place] [address] Jul, [facility] [place] [facility] [address] [id number] [place] [address] Jun, [facility] [place] [facility] [address] [facility] [id number] [place] [address] Jun, [facility] [place] [facility] [address] [facility] [id number], [place] [address] May, [facility] [address] [id number], [place] [address] May, [facility] [address] [facility] [id number], [place] [address] Mar, [facility] [address] [facility] [id number], [place] [address] Mar, [facility] [address] [facility] [id number], [place] [address] Oct, IMMUNIZATIONS No Known Immunizations SOCIAL HISTORY Never Assessed REASON FOR VISIT [facility] PLAN OF CARE VITAL SIGNS MEDICATIONS Unknown [...] disc replacement L1- L5 - Dr Muhammad ([place]) Surgical History appendectomy 1983 Surgical History hysterectomy 1993 Surgical History dilatation and curettage Surgical History heart cath- Dr Shaw [address] Solano bowel and intestines sep2015 Surgical History Dr solano removed skin tag and cyst 2018 Hospitalization History Hospitalization for surgery only
--- OUTSIDE RECORDS SUMMARY | 2019-01-03 13:48 | XMS REPORT ---
Author Author Migration, Doctor Organization [facility] Address Unknown Phone Unavailable Care Team Providers Care Brake Reliner Name Role Phone Migration, Doctor Unavailable Unavailable PROBLEMS Type Condition ICD9-CM Code [id number] Code Onset Dates Condition Status SNOMED Code Problem Prediabetes 790.29 Active 0856752 Problem Major depressive disorder, recurrent episode, moderate F33.1 Active 727760956 Problem Mixed hyperlipidemia E78.2 Active 315273317 Problem PTSD (post-traumatic stress disorder) F43.10 Active 96031321 Problem Tobacco use Z72.0 Active 166600857 Problem Alcohol use disorder, mild, 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 Active 27804814 Problem Cigarette nicotine dependence without complication F17.210 Active 36815461 Problem Cannabis abuse F12.10 Active 10126370 Problem Acute pain of left shoulder M25.512 Active 42938243 Problem Generalized anxiety disorder F41.1 Active 89212719 Problem Opioid use disorder, moderate, in sustained remission F11.21 Active 51367297 Problem Methamphetamine use disorder, severe, 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 Active 61466104 Problem Cocaine use disorder, moderate, in sustained remission F14.21 Active 09083833 Problem GERD with esophagitis K21.0 Active 220812622 ALLERGIES No Information ENCOUNTERS Encounter Location Date Diagnosis [place] [id number] [place] [address] December, [place] [address] [place] [address] 15 Nov, 2018 Major depressive disorder, recurrent episode, moderate F33.1 ; Cannabis abuse F12.10 ; Generalized anxiety disorder F41.1 ; Methamphetamine use disorder, severe, 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 ; Alcohol use disorder, mild, 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 ; PTSD (post-traumatic stress disorder) F43.10 and Cocaine use disorder, moderate, in sustained remission F14.21 [place] [id number] [place] [address] Oct, Major depressive disorder, recurrent episode, moderate F33.1 ; Cannabis abuse F12.10 ; Generalized anxiety disorder F41.1 ; Methamphetamine use disorder, severe, 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 ; Alcohol use disorder, mild, 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 ; PTSD (post-traumatic stress disorder) F43.10 and Cocaine use disorder, moderate, in sustained remission F14.21 [facility] [address] [place] [address] Sep, Major depressive disorder, recurrent episode, moderate F33.1 [facility] [id number] [place] [id number] Aug, [facility] [id number] [place] [address] Jul, Dysuria R30.0 [facility] [id number] [place] [address] Jul, Major depressive disorder, recurrent episode, moderate F33.1 [facility] [id number] [place] [address] Jun, Major depressive disorder, recurrent episode, moderate F33.1 [facility] [id number] [place] [address] Jun, Major depressive disorder, recurrent episode, moderate F33.1 [facility] [address] [place] [address] Jun, Acute pain of left shoulder M25.512 and Cigarette nicotine dependence without complication F17.210 [facility] [id number] [place] [address] May, [facility] [address] [address] May, Cocaine use disorder, moderate, in sustained remission F14.21 [facility] [id number] [place] [address] May, [facility] [address] [place] [address] 12 May, 2018 Dental examination Z01.20 [facility] [address] [place] [id number] 09 May, 2018 Dental examination Z01.20 and Caries K02.9 [facility] [address] [place] [address] May, Common wart B07.8 [facility] [id number] [place] [address] May, [facility] [id number] [place] [address] 27 Apr, 2018 Cocaine use disorder, moderate, in sustained remission F14.21 [place] [id number] [place] [address] 14 Apr, 2018 [facility] [id number] [place] [id number] 13 Apr, 2018 Dental examination Z01.20 [facility] [id number] [place] [id number] 10 Mar, 2018 Encounter for dental exam and cleaning w/o abnormal findings Z01.20 [facility] [address] [place] [address] Mar, [facility] [id number] [place] [address] Feb, Cocaine use disorder, moderate, in sustained [...] F33.1 [facility] [address] [address] Jan, Cocaine use disorder, moderate, in sustained remission F14.21 [facility] [id number] [address] Jan, Cocaine use disorder, moderate, in sustained [...] F33.1 [facility] [address] [place] [address] Jan, Dysuria R30.0 and GERD with esophagitis K21.0 [place] [id number] [place] [address] December, Major depressive disorder, recurrent episode, moderate F33.1 [place] [address] [place] [address] December, [facility] [address] [place] [address] December, Major depressive disorder, recurrent episode, moderate [...] Z72.0 [facility] [address] [place] [address] Nov, [facility] [address] [id number] [address] Nov, [facility] [address] [address] 04 Apr, 2018 Wellness examination Z00.00 ; Encounter for immunization Z23 ; Screening for osteoporosis Z13.820 ; Screening for breast cancer Z12.31 and Left breast lump N63.20 [facility] [id number] [place] [phone] Oct, Dental examination Z01.20 [facility] [id number] [place] [phone] Oct, [facility] [address] [address] Oct, [facility] [id number] [place] [address] 16 Sep, 2017 [facility] [id number] [place] [address] 15 Sep, 2017 [facility] [id number] [place] [address] 14 Sep, 2017 Left otitis media with effusion H65.92 ; Acute suppurative otitis media of right ear without spontaneous rupture of tympanic membrane, recurrence not specified H66.001 ; Dizziness R42 and Fatigue 780.79 [facility] [id number] [place] [address] Aug, Major depressive disorder, recurrent episode, moderate [...] [facility] [id number] [place] [address] Aug, Ingrown right big toenail L60.0 [facility] [id number] [place] [address] Aug, [facility] [address] [place] [address] 15 Aug, 2017 PTSD (post-traumatic stress disorder) F43.10 [facility] [address] [place] [address] Aug, Major depressive disorder, recurrent episode, moderate F33.1 ; Generalized anxiety disorder F41.1 and Cannabis abuse F12.10 [facility] [address] [place] [address] Jul, [facility] [id number] [place] [address] Jul, [facility] [id number] [place] [address] Jul, [facility] [address] [place] [address] Jul, Major depressive disorder, recurrent episode, moderate F33.1 ; Generalized anxiety disorder F41.1 and Cannabis abuse F12.10 [facility] [address] [address] Jul, [facility] [id number] [place] [address] Jul, [facility] [address] [address] Jul, Hyperlipidemia 272.4 [facility] [address] [place] [address] Jul, PTSD (post-traumatic stress disorder) F43.10 [facility] [address] [address] 14 Jul, 2017 Tobacco use Z72.0 ; [...] anxiety disorder F41.1 and Cannabis abuse F12.10 [place] [address] [place] [address] Jul, [facility] [id number] [place] [address] Jul, Dysuria R30.0 and Mixed hyperlipidemia E78.2 [place] [id number] [place] [address] Jun, Major depressive disorder, recurrent episode, moderate F33.1 ; Generalized anxiety disorder F41.1 and Cannabis abuse F12.10 [place] [id number] [place] [address] Jun, [place] [id number] [place] [address] Jun, Generalized anxiety disorder F41.1 ; Major depressive disorder, recurrent episode, moderate F33.1 ; PTSD (post-traumatic stress disorder) F43.10 ; Opioid use disorder, moderate, in sustained remission F11.21 ; Cannabis abuse F12.10 ; Alcohol use disorder, mild, 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 ; Methamphetamine use disorder, severe, 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 ; Cocaine use disorder, moderate, in sustained remission F14.21 and Tobacco use Z72.0 [place] [address] [address] Jun, Major depressive disorder, recurrent episode, moderate F33.1 ; Generalized anxiety disorder F41.1 and Cannabis abuse F12.10 [place] [address] [address] Jun, [place] [id number] [place] [address] Jun, [place] [address] [place] [address] Jun, Major depressive disorder, recurrent episode, moderate F33.1 ; Generalized anxiety disorder F41.1 and Cannabis abuse F12.10 [facility] [id number] [id number] Mar, Dental examination Z01.20 [facility] [id number] [place] [address] [id number] Feb, Dental examination Z01.20 [facility] [id number] [place] [address] Mar, [facility] [id number] [place] [address] Mar, [facility] [id number] [place] [address] Feb, Hyperlipidemia 272.4 and Prediabetes 790.29 [facility] [id number] [place] [address] Feb, Fatigue 780.79 and Hyperlipidemia 272.4 [facility] [id number] [place] [address] Feb, Lumbago 724.2 ; Hyperlipidemia 272.4 ; Insomnia 780.52 and Fatigue 780.79 [facility] [id number] [place] [address] Nov, [facility] [address] [place] [address] Nov, [facility] [id number] [place] [address] Mar, [facility] [id number] [place] [address] Mar, [facility] [id number] [place] [address] Jan, [facility] [id number] [place] [address] Jan, [facility] [id number] [place] [address] December, [facility] [place] [facility] [address] [id number] [place] [address] December, [facility] [place] [facility] [address] [id number] [place] [address] Nov, [facility] [place] [facility] [address] [id number] [place] [address] Nov, [facility] [place] [facility] [address] [id number] [place] [address] Nov, [facility] [place] [facility] [address] [id number] [place] [address] Nov, [facility] [place] [facility] [address] [id number] [place] [address] Nov, [facility] [place] [facility] [address] [id number] [place] [address] Nov, [facility] [place] [facility] [address] [id number] [place] [address] Oct, [facility] [place] [facility] [address] [id number] [place] [address] 31 Oct, 2013 [facility] [place] [facility] [address] [id number] [place] [address] Oct, [facility] [place] [facility] [address] [id number] [place] [address] 20 Oct, 2013 [facility] [place] [facility] [address] [id number] [place] [address] 19 Oct, 2013 [facility] [place] [facility] [address] [id number] [place] [address] Oct, [facility] [place] [facility] [address] [id number] [place] [address] Oct, [facility] [place] [facility] [address] [id number] [place] [address] Oct, [facility] [place] [facility] [address] [id number] [place] [address] Oct, [facility] [place] [facility] [address] [id number] [place] [address] Oct, [facility] [place] [facility] [address] [id number] [place] [address] Oct, [facility] [place] [facility] [address] [facility] [id number] [place] [address] Oct, [facility] [place] [facility] [address] [id number] [place] [address] Oct, [facility] [place] [facility] [address] [id number] [place] [address] 24 Sep, 2013 [facility] [place] [facility] [address] [facility] [id number] [place] [address] 24 Sep, 2013 [facility] [place] [facility] [address] [facility] [id number] [place] [address] 20 Sep, 2013 [facility] [place] [facility] [address] [facility] [id number] [place] [address] 20 Sep, 2013 [facility] [place] [facility] [address] [facility] [id number] [place] [address] 20 Sep, 2013 [facility] [place] [facility] [address] [facility] [id number] [place] [address] 20 Sep, 2013 [facility] [place] [facility] [address] [facility] [id number] [place] [address] 18 Sep, 2013 [facility] [place] [facility] [address] [facility] [id number] [place] [address] 18 Sep, 2013 [facility] [place] [facility] [address] [facility] [id number] [place] [address] 14 Sep, 2013 [facility] [place] [facility] [address] [facility] [id number] [place] [address] 14 Sep, 2013 [facility] [place] [facility] [address] [facility] [id number] [place] [address] 14 Sep, 2013 [facility] [place] [facility] [address] [id number] [place] [address] 14 Sep, 2013 [facility] [place] [facility] [address] [id number] [place] [address] 14 Sep, 2013 [facility] [place] [facility] [address] [id number] [place] [address] 14 Sep, 2013 [facility] [place] [facility] [address] [id number] [place] [address] Sep, [facility] [place] [facility] [address] [id number] [place] [address] Sep, [facility] [place] [facility] [address] [id number] [place] [address] Sep, [facility] [place] [facility] [address] [id number] [place] [address] Sep, [facility] [place] [facility] [address] [id number] [place] [address] Sep, [facility] [place] [facility] [address] [id number] [place] [address] Sep, [facility] [place] [facility] [address] [id number] [place] [address] Aug, [facility] [place] [facility] [address] [id number] [place] [address] Aug, [facility] [place] [facility] [address] [id number] [place] [address] Aug, [facility] [place] [facility] [address] [id number] [place] [address] Aug, [facility] [place] [facility] [address] [id number] [place] [address] Aug, [facility] [place] [facility] [address] [id number] [place] [address] Jul, [facility] [place] [facility] [address] [id number] [place] [address] Jul, [facility] [address] [id number] [place] [address] Jul, [facility] [place] [facility] [address] [id number] [place] [address] Jul, [facility] [address] [id number] [place] [address] Jul, [facility] [place] [facility] [address] [id number] [place] [address] Jul, [facility] [address] [id number] [place] [address] Jul, [facility] [address] [id number] [place] [address] Jul, [facility] [place] [facility] [address] [id number] [place] [address] Jul, [facility] [address] [id number] [place] [address] Jun, [facility] [place] [facility] [address] [id number] [place] [address] Jun, [facility] [address] [id number] [place] [address] Jun, [facility] [place] [facility] [address] [id number] [place] [address] Jun, [facility] [place] [facility] [address] [id number] [place] [address] Jun, [facility] [place] [facility] [address] [id number] [place] [address] Jun, [facility] [place] [facility] [address] [id number] [place] [address] Jun, [facility] [place] [facility] [address] [id number] [place] [address] Jun, [facility] [place] [facility] [address] [id number] [place] [address] Jun, [facility] [place] [facility] [address] [id number] [place] [address] Jun, [facility] [place] [facility] [address] [id number] [place] [address] May, [facility] [place] [facility] [address] [id number] [place] [address] May, [facility] [place] [facility] [address] [id number] [place] [address] May, [facility] [place] [facility] [address] [id number] [place] [address] May, [facility] [place] [facility] [address] [id number] [place] [address] May, [facility] [place] [facility] [address] [id number] [address] May, [facility] [place] [facility] [address] [id number] [place] [address] May, [facility] [place] [facility] [address] [id number] [address] May, [facility] [place] [facility] [address] [id number] [place] [address] May, [facility] [place] [facility] [address] [id number] [place] [address] 26 Apr, 2013 [facility] [place] [facility] [address] [id number] [place] [address] 16 Apr, 2013 [facility] [place] [facility] [address] [id number] [place] [address] 12 Apr, 2013 [facility] [place] [facility] [address] [id number] [place] [address] 06 Apr, 2013 [facility] [place] [facility] [address] [id number] [place] [address] Mar, [facility] [address] [id number] [place] [address] Mar, [facility] [place] [facility] [address] [id number] [place] [address] Mar, [facility] [place] [facility] [address] [id number] [place] [address] Mar, [facility] [place] [facility] [address] [id number] [place] [address] Mar, [facility] [place] [facility] [address] [id number] [place] [address] Mar, [facility] [place] [facility] [address] [id number] [place] [address] Mar, [facility] [place] [facility] [address] [id number] [place] [address] Feb, [facility] [place] [facility] [address] [id number] [place] [address] Feb, [facility] [place] [facility] [address] [id number] [place] [address] Feb, [facility] [place] [facility] [address] [id number] [place] [address] Feb, [facility] [place] [facility] [address] [id number] [place] [address] Feb, [facility] [place] [facility] [address] [id number] [place] [address] Feb, [facility] [place] [facility] [address] [id number] [place] [address] Feb, [facility] [place] [facility] [address] [id number] [place] [address] Feb, [facility] [place] [facility] [address] [id number] [place] [address] Feb, [facility] [place] [facility] [address] [id number] [place] [address] Feb, [facility] [address] [id number] [place] [address] Feb, [facility] [place] [facility] [address] [id number] [place] [address] Jan, [facility] [place] [facility] [address] [id number] [place] [address] Jan, [facility] [address] [id number] [place] [address] December, [facility] [place] [facility] [address] [id number] [place] [address] December, [facility] [address] [id number] [place] [address] Nov, [facility] [address] [id number] [place] [address] Nov, [facility] [address] [id number] [place] [address] Oct, [facility] [address] [id number] [place] [address] Oct, [facility] [place] [facility] [address] [id number] [place] [address] Oct, [facility] [place] [facility] [address] [id number] [place] [address] Oct, [facility] [place] [facility] [address] [id number] [place] [address] Sep, [facility] [place] [facility] [address] [id number] [place] [address] Sep, [facility] [place] [facility] [address] [id number] [place] [address] Sep, [facility] [place] [facility] [address] [id number] [place] [address] Sep, [facility] [address] [id number] [place] [address] Aug, [facility] [place] [facility] [address] [id number] [place] [address] Aug, [facility] [place] [facility] [address] [id number] [place] [address] Jul, [facility] [place] [facility] [address] [id number] [place] [address] Jul, [facility] [place] [facility] [address] [id number] [place] [address] Jul, [facility] [place] [facility] [address] [id number] [place] [address] Jul, [facility] [place] [facility] [address] [id number] [place] [address] Jul, [facility] [place] [facility] [address] [id number] [place] [address] Jul, [facility] [place] [facility] [address] [id number] [place] [address] Jun, [facility] [place] [facility] [address] [id number] [place] [address] Jun, [facility] [place] [facility] [address] [id number] [place] [address] Jun, [facility] [place] [facility] [address] [id number] [place] [address] Jun, [facility] [place] [facility] [address] [id number] [place] [address] Jun, [facility] [place] [facility] [address] [id number] [place] [address] May, [facility] [place] [facility] [address] [id number] [place] [address] May, [facility] [place] [facility] [address] [id number] [place] [address] May, [facility] [place] [facility] [address] [id number] [place] [address] May, [facility] [place] [facility] [address] [id number] [place] [address] May, [facility] [place] [facility] [address] [id number] [place] [address] May, [facility] [place] [facility] [address] [id number] [place] [address] May, [facility] [place] [facility] [address] [id number] [place] [address] May, [facility] [place] [facility] [address] [id number] [place] [address] Mar, [facility] [place] [facility] [address] [id number] [place] [address] Mar, [facility] [place] [facility] [address] [id number] [place] [address] Mar, [facility] [place] [facility] [address] [id number] [place] [address] Feb, [facility] [place] [facility] [address] [id number] [place] [address] Feb, [facility] [place] [facility] [address] [id number] [place] [address] Feb, [facility] [place] [facility] [address] [id number] [place] [address] Feb, [facility] [place] [facility] [address] [id number] [place] [address] Jan, [facility] [place] [facility] [address] [id number] [place] [address] Jan, [facility] [place] [facility] [address] [id number] [place] [address] Jan, [facility] [address] [id number] [place] [address] December, [facility] [place] [facility] [address] [id number] [place] [address] Nov, [facility] [place] [facility] [address] [id number] [place] [address] Oct, [facility] [place] [facility] [address] [id number] [place] [address] Oct, [facility] [place] [facility] [address] [id number] [place] [address] Oct, [facility] [place] [facility] [address] [id number] [place] [address] Oct, [facility] [place] [facility] [address] [id number] [place] [address] Aug, [facility] [place] [facility] [address] [id number] [place] [address] Aug, [facility] [place] [facility] [address] [id number] [place] [address] Aug, [facility] [place] [facility] [address] [id number] [place] [address] Aug, [facility] [place] [facility] [address] [id number] [place] [address] Aug, [facility] [place] [facility] [address] [id number] [place] [address] Aug, [facility] [place] [facility] [address] [id number] [place] [address] Aug, [facility] [place] [facility] [address] [id number] [place] [address] Aug, [facility] [place] [facility] [address] [id number] [place] [address] Jul, [facility] [place] [facility] [address] [id number] [place] [address] 29 Jun, 2011 [facility] [address] [id number] [place] [address] 29 Jun, 2011 [facility] [place] [facility] [address] [id number] [place] [address] 31 Jul, 2010 [facility] [place] [facility] [address] [id number] [place] [address] 22 Jul, 2010 [facility] [place] [facility] [address] [id number] [place] [address] 22 Jul, 2010 [facility] [place] [facility] [address] [id number] [place] [address] 14 Jul, 2010 [facility] [place] [facility] [address] [id number] [place] [address] 14 Jul, 2010 [facility] [place] [facility] [address] [id number] [place] [address] 24 Jun, 2010 [facility] [place] [facility] [address] [id number] [place] [address] May, [facility] [place] [facility] [address] [id number] [place] [address] Mar, [facility] [place] [facility] [address] [facility] [id number] [place] [address] Oct, [facility] [place] [facility] [address] [id number] [place] [address] Aug, [facility] [place] [facility] [address] [id number] [place] [address] 15 Jul, 2009 [facility] [place] [facility] [address] [id number] [place] [address] Jul, [facility] [place] [facility] [address] [id number] [place] [address] Jun, [facility] [place] [facility] [address] [facility] [id number] [place] [address] Jun, [facility] [place] [facility] [address] [facility] [id number] [place] [address] May, [facility] [address] [id number] [place] [address] May, [facility] [address] [facility] [id number] [place] [address] Mar, [facility] [address] [facility] [id number] [place] [address] Mar, [facility] [address] [facility] [id number] [place] [address] Oct, IMMUNIZATIONS No Known Immunizations SOCIAL HISTORY Never Assessed REASON FOR VISIT [facility] [place] OF CARE VITAL SIGNS MEDICATIONS Unknown [...] disc replacement L1- L5 - Dr Muhammad ([place]) Surgical History appendectomy 1983 Surgical History hysterectomy 1993 Surgical History dilatation and curettage Surgical History heart cath- Dr Shaw [address] Solano bowel and intestines sep2015 Surgical History [address] solano removed skin tag and cyst 2018 Hospitalization History Hospitalization for surgery only
--- OUTSIDE RECORDS SUMMARY | 2019-01-03 13:49 | XMS REPORT ---
Author Author Migration, Doctor Organization [facility] Address Unknown Phone Unavailable Care Team Providers Care Anime Designer Name Role Phone Migration, Doctor Unavailable Unavailable PROBLEMS Type Condition ICD9-CM Code XKM06-XT Code Onset Dates Condition Status SNOMED Code Problem Prediabetes 790.29 Active 8592530 Problem Major depressive disorder, recurrent episode, moderate F33.1 Active 277534783 Problem Mixed hyperlipidemia E78.2 Active 533787483 Problem PTSD (post-traumatic stress disorder) F43.10 Active 58755002 Problem Tobacco use Z72.0 Active 285569630 Problem Alcohol use disorder, mild, 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 Active 60508981 Problem Cigarette nicotine dependence without complication F17.210 Active 18536494 Problem Cannabis abuse F12.10 Active 00709370 Problem Acute pain of left shoulder M25.512 Active 12295110 Problem Generalized anxiety disorder F41.1 Active 76676930 Problem Opioid use disorder, moderate, in sustained remission F11.21 Active 72510577 Problem Methamphetamine use disorder, severe, 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 Active 65976381 Problem Cocaine use disorder, moderate, in sustained remission F14.21 Active 26808041 Problem GERD with esophagitis K21.0 Active 943476049 ALLERGIES No Information ENCOUNTERS Encounter Location Date Diagnosis [place] [id number] [place] [address] December, [place] [address] [place] [address] 15 Nov, 2018 Major depressive disorder, recurrent episode, moderate F33.1 ; Cannabis abuse F12.10 ; Generalized anxiety disorder F41.1 ; Methamphetamine use disorder, severe, 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 ; Alcohol use disorder, mild, 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 ; PTSD (post-traumatic stress disorder) F43.10 and Cocaine use disorder, moderate, in sustained remission F14.21 [place] [address] [place] [address] Oct, Major depressive disorder, recurrent episode, moderate F33.1 ; Cannabis abuse F12.10 ; Generalized anxiety disorder F41.1 ; Methamphetamine use disorder, severe, 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 ; Alcohol use disorder, mild, 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 ; PTSD (post-traumatic stress disorder) F43.10 and Cocaine use disorder, moderate, in sustained remission F14.21 [facility] [address] [place] [address] Sep, Major depressive disorder, recurrent episode, moderate F33.1 [facility] [address] [place] [id number] Aug, [facility] [id number] [place] [address] Jul, Dysuria R30.0 [facility] [id number] [place] [address] Jul, Major depressive disorder, recurrent episode, moderate F33.1 [facility] [id number] [place] [address] Jun, Major depressive disorder, recurrent episode, moderate F33.1 [facility] [id number] [place] [address] Jun, Major depressive disorder, recurrent episode, moderate F33.1 [facility] [address] [place] [address] Jun, Acute pain of left shoulder M25.512 and Cigarette nicotine dependence without complication F17.210 [facility] [id number] [place] [address] May, [facility] [address] [address] May, Cocaine use disorder, moderate, in sustained remission F14.21 [facility] [id number] [place] [address] May, [facility] [address] [place] [address] 12 May, 2018 Dental examination Z01.20 [facility] [address] [place] [id number] 09 May, 2018 Dental examination Z01.20 and Caries K02.9 [facility] [address] [place] [address] May, Common wart B07.8 [facility] [id number] [place] [address] May, [facility] [id number] [place] [address] 27 Apr, 2018 Cocaine use disorder, moderate, in sustained remission F14.21 [place] [id number] [place] [address] 14 Apr, 2018 [facility] [id number] [place] [id number] 13 Apr, 2018 Dental examination Z01.20 [facility] [id number] [place] [id number] 10 Mar, 2018 Encounter for dental exam and cleaning w/o abnormal findings Z01.20 [facility] [address] [place] [address] Mar, [facility] [id number] [place] [address] Feb, Cocaine use disorder, moderate, in sustained [...] disorder, recurrent episode, moderate F33.1 [facility] [address] [address] Jan, Cocaine use disorder, moderate, in sustained remission F14.21 [facility] [id number] [address] Jan, Cocaine use disorder, moderate, in sustained [...] disorder, recurrent episode, moderate F33.1 [facility] [address] [place] [address] Jan, Dysuria R30.0 and GERD with esophagitis K21.0 [place] [id number] [place] [address] December, Major depressive disorder, recurrent episode, moderate F33.1 [place] [address] [place] [address] December, [facility] [address] [place] [address] December, Major depressive disorder, recurrent episode, moderate [...] F10.11 and Tobacco use Z72.0 [facility] [address] [place] [address] Nov, [facility] [address] [id number] [address] Nov, [facility] [address] [address] 04 Apr, 2018 Wellness examination Z00.00 ; Encounter for immunization Z23 ; Screening for osteoporosis Z13.820 ; Screening for breast cancer Z12.31 and Left breast lump N63.20 [facility] [id number] [place] [id number] Oct, Dental examination Z01.20 [facility] [id number] [place] [address] Oct, [facility] [address] [address] Oct, [facility] [id number] [place] [address] 16 Sep, 2017 [facility] [id number] [place] [address] 15 Sep, 2017 [facility] [id number] [place] [address] 14 Sep, 2017 Left otitis media with effusion H65.92 ; Acute suppurative otitis media of right ear without spontaneous rupture of tympanic membrane, recurrence not specified H66.001 ; Dizziness R42 and Fatigue 780.79 [facility] [id number] [place] [address] Aug, Major depressive disorder, recurrent episode, moderate [...] use Z72.0 [facility] [id number] [place] [address] Aug, Ingrown right big toenail L60.0 [facility] [id number] [place] [address] Aug, [facility] [address] [place] [address] 15 Aug, 2017 PTSD (post-traumatic stress disorder) F43.10 [facility] [address] [place] [address] Aug, Major depressive disorder, recurrent episode, moderate F33.1 ; Generalized anxiety disorder F41.1 and Cannabis abuse F12.10 [facility] [address] [place] [address] Jul, [facility] [id number] [place] [address] Jul, [facility] [id number] [place] [address] Jul, [facility] [address] [place] [address] Jul, Major depressive disorder, recurrent episode, moderate F33.1 ; Generalized anxiety disorder F41.1 and Cannabis abuse F12.10 [facility] [address], [place] [address] Jul, [facility] [id number] [place] [address] Jul, [facility] [address], [place] [address] Jul, Hyperlipidemia 272.4 [facility] [id number] [place] [address] Jul, PTSD (post-traumatic stress disorder) F43.10 [facility] [address] [address] 14 Jul, 2017 Tobacco use Z72.0 ; [...] anxiety disorder F41.1 and Cannabis abuse F12.10 [place] [address] [place] [address] Jul, [facility] [id number] [place] [address] Jul, Dysuria R30.0 and Mixed hyperlipidemia E78.2 [place] [id number] [place] [address] Jun, Major depressive disorder, recurrent episode, moderate F33.1 ; Generalized anxiety disorder F41.1 and Cannabis abuse F12.10 [place] [id number] [place] [address] Jun, [place] [id number] [place] [address] Jun, Generalized anxiety disorder F41.1 ; Major depressive disorder, recurrent episode, moderate F33.1 ; PTSD (post-traumatic stress disorder) F43.10 ; Opioid use disorder, moderate, in sustained remission F11.21 ; Cannabis abuse F12.10 ; Alcohol use disorder, mild, 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 ; Methamphetamine use disorder, severe, 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 ; Cocaine use disorder, moderate, in sustained remission F14.21 and Tobacco use Z72.0 [place] [address], [place] [address] Jun, Major depressive disorder, recurrent episode, moderate F33.1 ; Generalized anxiety disorder F41.1 and Cannabis abuse F12.10 [place] [address], [place] [address] Jun, [place] [id number] [place] [address] Jun, [place] [id number] [place] [address] Jun, Major depressive disorder, recurrent episode, moderate F33.1 ; Generalized anxiety disorder F41.1 and Cannabis abuse F12.10 [facility] [id number] [id number] Mar, Dental examination Z01.20 [facility] [id number] [place] [id number] Feb, Dental examination Z01.20 [facility] [id number] [place] [address] Mar, [facility] [id number] [place] [address] Mar, [facility] [id number] [place] [address] Feb, Hyperlipidemia 272.4 and Prediabetes 790.29 [facility] [id number] [place] [address] Feb, Fatigue 780.79 and Hyperlipidemia 272.4 [facility] [id number] [place] [address] Feb, Lumbago 724.2 ; Hyperlipidemia 272.4 ; Insomnia 780.52 and Fatigue 780.79 [facility] [id number] [place] [address] Nov, [facility] [address] [place] [address] Nov, [facility] [id number] [place] [address] Mar, [facility] [id number] [place] [address] Mar, [facility] [id number] [place] [address] Jan, [facility] [id number] [place] [address] Jan, [facility] [id number] [place] [address] December, [facility] [place] [facility] [address] [id number] [place] [address] December, [facility] [place] [facility] [address] [id number] [place] [address] Nov, [facility] [place] [facility] [address] [id number] [place] [address] Nov, [facility] [place] [facility] [address] [id number] [place] [address] Nov, [facility] [place] [facility] [address] [id number] [place] [address] Nov, [facility] [place] [facility] [address] [id number] [place] [address] Nov, [facility] [place] [facility] [address] [id number] [place] [address] Nov, [facility] [place] [facility] [address] [id number] [place] [address] Oct, [facility] [place] [facility] [address] [id number] [place] [address] 31 Oct, 2013 [facility] [place] [facility] [address] [id number] [place] [address] Oct, [facility] [place] [facility] [address] [id number] [place] [address] 20 Oct, 2013 [facility] [place] [facility] [address] [id number] [place] [address] 19 Oct, 2013 [facility] [place] [facility] [address] [id number] [place] [address] Oct, [facility] [place] [facility] [address] [id number] [place] [address] Oct, [facility] [place] [facility] [address] [id number] [place] [address] Oct, [facility] [place] [facility] [address] [id number] [place] [address] Oct, [facility] [place] [facility] [address] [id number] [place] [address] Oct, [facility] [place] [facility] [address] [id number] [place] [address] Oct, [facility] [place] [facility] [address] [facility] [id number] [place] [address] Oct, [facility] [place] [facility] [address] [id number] [place] [address] Oct, [facility] [place] [facility] [address] [id number] [place] [address] 24 Sep, 2013 [facility] [place] [facility] [address] [facility] [id number] [place] [address] 24 Sep, 2013 [facility] [place] [facility] [address] [facility] [id number] [place] [address] 20 Sep, 2013 [facility] [place] [facility] [address] [facility] [id number] [place] [address] 20 Sep, 2013 [facility] [place] [facility] [address] [facility] [id number] [place] [address] 20 Sep, 2013 [facility] [place] [facility] [address] [facility] [id number] [place] [address] 20 Sep, 2013 [facility] [place] [facility] [address] [facility] [id number] [place] [address] 18 Sep, 2013 [facility] [place] [facility] [address] [facility] [id number] [place] [address] 18 Sep, 2013 [facility] [place] [facility] [address] [facility] [id number] [place] [address] 14 Sep, 2013 [facility] [place] [facility] [address] [facility] [id number] [place] [address] 14 Sep, 2013 [facility] [place] [facility] [address] [facility] [id number] [place] [address] 14 Sep, 2013 [facility] [place] [facility] [address] [id number] [place] [address] 14 Sep, 2013 [facility] [place] [facility] [address] [id number] [place] [address] 14 Sep, 2013 [facility] [place] [facility] [address] [id number] [place] [address] 14 Sep, 2013 [facility] [place] [facility] [address] [id number] [place] [address] Sep, [facility] [place] [facility] [address] [id number] [place] [address] Sep, [facility] [place] [facility] [address] [id number] [place] [address] Sep, [facility] [place] [facility] [address] [id number] [place] [address] Sep, [facility] [place] [facility] [address] [id number] [place] [address] Sep, [facility] [place] [facility] [address] [id number] [place] [address] Sep, [facility] [place] [facility] [address] [id number] [place] [address] Aug, [facility] [place] [facility] [address] [id number] [place] [address] Aug, [facility] [place] [facility] [address] [id number] [place] [address] Aug, [facility] [place] [facility] [address] [id number] [place] [address] Aug, [facility] [place] [facility] [address] [id number] [place] [address] Aug, [facility] [place] [facility] [address] [id number] [place] [address] Jul, [facility] [place] [facility] [address] [id number] [place] [address] Jul, [facility] [address] [id number] [place] [address] Jul, [facility] [place] [facility] [address] [id number] [place] [address] Jul, [facility] [address] [id number] [place] [address] Jul, [facility] [place] [facility] [address] [id number] [place] [address] Jul, [facility] [address] [id number] [place] [address] Jul, [facility] [address] [id number] [place] [address] Jul, [facility] [place] [facility] [address] [id number] [place] [address] Jul, [facility] [address] [id number] [place] [address] Jun, [facility] [place] [facility] [address] [id number] [place] [address] Jun, [facility] [address] [id number] [place] [address] Jun, [facility] [place] [facility] [address] [id number] [place] [address] Jun, [facility] [place] [facility] [address] [id number] [place] [address] Jun, [facility] [place] [facility] [address] [id number] [place] [address] Jun, [facility] [place] [facility] [address] [id number] [place] [address] Jun, [facility] [place] [facility] [address] [id number] [place] [address] Jun, [facility] [place] [facility] [address] [id number] [place] [address] Jun, [facility] [place] [facility] [address] [id number] [place] [address] Jun, [facility] [place] [facility] [address] [id number] [place] [address] May, [facility] [place] [facility] [address] [id number] [place] [address] May, [facility] [place] [facility] [address] [id number] [place] [address] May, [facility] [place] [facility] [address] [id number] [place] [address] May, [facility] [place] [facility] [address] [id number] [place] [address] May, [facility] [place] [facility] [address] [id number], [place] [address] May, [facility] [place] [facility] [address] [id number] [place] [address] May, [facility] [place] [facility] [address] [id number], [place] [address] May, [facility] [place] [facility] [address] [id number], [place] [address] May, [facility] [place] [facility] [address] [id number], [place] [address] 26 Apr, 2013 [facility] [place] [facility] [address] [id number] [place] [address] 16 Apr, 2013 [facility] [place] [facility] [address] [id number], [place] [address] 12 Apr, 2013 [facility] [place] [facility] [address] [id number] [place] [address] 06 Apr, 2013 [facility] [place] [facility] [address] [id number] [place] [address] Mar, [facility] [address] [id number] [place] [address] Mar, [facility] [place] [facility] [address] [id number] [place] [address] Mar, [facility] [place] [facility] [address] [id number] [place] [address] Mar, [facility] [place] [facility] [address] [id number] [place] [address] Mar, [facility] [place] [facility] [address] [id number] [place] [address] Mar, [facility] [place] [facility] [address] [id number] [place] [address] Mar, [facility] [place] [facility] [address] [id number] [place] [address] Feb, [facility] [place] [facility] [address] [id number] [place] [address] Feb, [facility] [place] [facility] [address] [id number] [place] [address] Feb, [facility] [place] [facility] [address] [id number] [place] [address] Feb, [facility] [place] [facility] [address] [id number] [place] [address] Feb, [facility] [place] [facility] [address] [id number] [place] [address] Feb, [facility] [place] [facility] [address] [id number] [place] [address] Feb, [facility] [place] [facility] [address] [id number] [place] [address] Feb, [facility] [place] [facility] [address] [id number] [place] [address] Feb, [facility] [place] [facility] [address] [id number] [place] [address] Feb, [facility] [address] [id number] [place] [address] Feb, [facility] [place] [facility] [address] [id number] [place] [address] Jan, [facility] [place] [facility] [address] [id number] [place] [address] Jan, [facility] [address] [id number] [place] [address] December, [facility] [place] [facility] [address] [id number] [place] [address] December, [facility] [address] [id number] [place] [address] Nov, [facility] [address] [id number] [place] [address] Nov, [facility] [address] [id number] [place] [address] Oct, [facility] [address] [id number] [place] [address] Oct, [facility] [place] [facility] [address] [id number] [place] [address] Oct, [facility] [place] [facility] [address] [id number] [place] [address] Oct, [facility] [place] [facility] [address] [id number] [place] [address] Sep, [facility] [place] [facility] [address] [id number] [place] [address] Sep, [facility] [place] [facility] [address] [id number] [place] [address] Sep, [facility] [place] [facility] [address] [id number], [place] [address] Sep, [facility] [address] [id number] [place] [address] Aug, [facility] [place] [facility] [address] [id number] [place] [address] Aug, [facility] [place] [facility] [address] [id number] [place] [address] Jul, [facility] [place] [facility] [address] [id number] [place] [address] Jul, [facility] [place] [facility] [address] [id number] [place] [address] Jul, [facility] [place] [facility] [address] [id number] [place] [address] Jul, [facility] [place] [facility] [address] [id number] [place] [address] Jul, [facility] [place] [facility] [address] [id number] [place] [address] Jul, [facility] [place] [facility] [address] [id number] [place] [address] Jun, [facility] [place] [facility] [address] [id number] [place] [address] Jun, [facility] [place] [facility] [address] [id number], [place] [address] Jun, [facility] [place] [facility] [address] [id number], [place] [address] Jun, [facility] [place] [facility] [address] [id number], [place] [address] Jun, [facility] [place] [facility] [address] [id number] [place] [address] May, [facility] [place] [facility] [address] [id number] [place] [address] May, [facility] [place] [facility] [address] [id number] [place] [address] May, [facility] [place] [facility] [address] [id number] [place] [address] May, [facility] [place] [facility] [address] [id number] [place] [address] May, [facility] [place] [facility] [address] [id number] [place] [address] May, [facility] [place] [facility] [address] [id number] [place] [address] May, [facility] [place] [facility] [address] [id number] [place] [address] May, [facility] [place] [facility] [address] [id number] [place] [address] Mar, [facility] [place] [facility] [address] [id number] [place] [address] Mar, [facility] [place] [facility] [address] [id number] [place] [address] Mar, [facility] [place] [facility] [address] [id number] [place] [address] Feb, [facility] [place] [facility] [address] [id number] [place] [address] Feb, [facility] [place] [facility] [address] [id number] [place] [address] Feb, [facility] [place] [facility] [address] [id number] [place] [address] Feb, [facility] [place] [facility] [address] [id number] [place] [address] Jan, [facility] [place] [facility] [address] [id number] [place] [address] Jan, [facility] [place] [facility] [address] [id number] [place] [address] Jan, [facility] [address] [id number] [place] [address] December, [facility] [place] [facility] [address] [id number] [place] [address] Nov, [facility] [place] [facility] [address] [id number] [place] [address] Oct, [facility] [place] [facility] [address] [id number] [place] [address] Oct, [facility] [place] [facility] [address] [id number] [place] [address] Oct, [facility] [place] [facility] [address] [id number] [place] [address] Oct, [facility] [place] [facility] [address] [id number] [place] [address] Aug, [facility] [place] [facility] [address] [id number] [place] [address] Aug, [facility] [place] [facility] [address] [id number] [place] [address] Aug, [facility] [place] [facility] [address] [id number] [place] [address] Aug, [facility] [place] [facility] [address] [id number] [place] [address] Aug, [facility] [place] [facility] [address] [id number], [place] [address] Aug, [facility] [place] [facility] [address] [id number] [place] [address] Aug, [facility] [place] [facility] [address] [id number] [place] [address] Aug, [facility] [place] [facility] [address] [id number] [place] [address] Jul, [facility] [place] [facility] [address] [id number] [place] [address] 29 Jun, 2011 [facility] [address] [id number] [place] [address] 29 Jun, 2011 [facility] [place] [facility] [address] [id number] [place] [address] 31 Jul, 2010 [facility] [place] [facility] [address] [id number] [place] [address] 22 Jul, 2010 [facility] [place] [facility] [address] [id number] [place] [address] 22 Jul, 2010 [facility] [place] [facility] [address] [id number] [place] [address] 14 Jul, 2010 [facility] [place] [facility] [address] [id number] [place] [address] 14 Jul, 2010 [facility] [place] [facility] [address] [id number] [place] [address] 24 Jun, 2010 [facility] [place] [facility] [address] [id number] [place] [address] May, [facility] [place] [facility] [address] [id number] [place] [address] Mar, [facility] [place] [facility] [address] [facility] [id number] [place] [address] Oct, [facility] [place] [facility] [address] [id number] [place] [address] Aug, [facility] [place] [facility] [address] [id number] [place] [address] 15 Jul, 2009 [facility] [place] [facility] [address] [id number] [place] [address] Jul, [facility] [place] [facility] [address] [id number] [place] [address] Jun, [facility] [place] [facility] [address] [facility] [id number] [place] [address] Jun, [facility] [place] [facility] [address] [facility] [id number], [place] [address] May, [facility] [address] [id number], [place] [address] May, [facility] [address] [facility] [id number], [place] [address] Mar, [facility] [address] [facility] [id number], [place] [address] Mar, [facility] [address] [facility] [id number], [place] [address] Oct, IMMUNIZATIONS No Known Immunizations SOCIAL HISTORY Never Assessed REASON FOR VISIT [facility] [place] [...] disc replacement L1- L5 - Dr Muhammad ([place]) Surgical History appendectomy 1983 Surgical History hysterectomy 1993 Surgical History dilatation and curettage Surgical History heart cath- Dr Shaw [address] Solano bowel and intestines sep2015 Surgical History [address] solano removed skin tag and cyst 2018 Hospitalization History Hospitalization for surgery only
--- OUTSIDE RECORDS SUMMARY | 2019-01-03 13:50 | XMS REPORT ---
Author Author Migration, Doctor Organization [facility] Address Unknown Phone Unavailable Care Team Providers Care Senior Chemical Engineer Name Role Phone Migration, Doctor Unavailable Unavailable PROBLEMS Type Condition ICD9-CM Code BUO47-SZ Code Onset Dates Condition Status SNOMED Code Problem Prediabetes 790.29 Active 0436654 Problem Major depressive disorder, recurrent episode, moderate F33.1 Active 096143793 Problem Mixed hyperlipidemia E78.2 Active 805921428 Problem PTSD (post-traumatic stress disorder) F43.10 Active 13728048 Problem Tobacco use Z72.0 Active 050753386 Problem Alcohol use disorder, mild, 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 Active 67919106 Problem Cigarette nicotine dependence without complication F17.210 Active 37980471 Problem Cannabis abuse F12.10 Active 44870999 Problem Acute pain of left shoulder M25.512 Active 68299625 Problem Generalized anxiety disorder F41.1 Active 06152801 Problem Opioid use disorder, moderate, in sustained remission F11.21 Active 81526218 Problem Methamphetamine use disorder, severe, 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 Active 97416710 Problem Cocaine use disorder, moderate, in sustained remission F14.21 Active 89497331 Problem GERD with esophagitis K21.0 Active 975022918 ALLERGIES No Information ENCOUNTERS Encounter Location Date Diagnosis [place] [id number] [place] [address] December, [place] [id number] [place] [address] 15 Nov, 2018 Major depressive disorder, recurrent episode, moderate F33.1 ; Cannabis abuse F12.10 ; Generalized anxiety disorder F41.1 ; Methamphetamine use disorder, severe, 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 ; Alcohol use disorder, mild, 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 ; PTSD (post-traumatic stress disorder) F43.10 and Cocaine use disorder, moderate, in sustained remission F14.21 [place] [id number] [place] [address] Oct, Major depressive disorder, recurrent episode, moderate F33.1 ; Cannabis abuse F12.10 ; Generalized anxiety disorder F41.1 ; Methamphetamine use disorder, severe, 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 ; Alcohol use disorder, mild, 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 ; PTSD (post-traumatic stress disorder) F43.10 and Cocaine use disorder, moderate, in sustained remission F14.21 [facility] [address] [place] [address] Sep, Major depressive disorder, recurrent episode, moderate F33.1 [facility] [id number] [place] [id number] Aug, [facility] [id number] [place] [address] Jul, Dysuria R30.0 [facility] [id number] [place] [address] Jul, Major depressive disorder, recurrent episode, moderate F33.1 [facility] [id number] [place] [address] Jun, Major depressive disorder, recurrent episode, moderate F33.1 [facility] [id number] [place] [address] Jun, Major depressive disorder, recurrent episode, moderate F33.1 [facility] [address] [place] [address] Jun, Acute pain of left shoulder M25.512 and Cigarette nicotine dependence without complication F17.210 [facility] [id number] [place] [address] May, [facility] [address] [address] May, Cocaine use disorder, moderate, in sustained remission F14.21 [facility] [id number] [place] [address] May, [facility] [address] [place] [address] 12 May, 2018 Dental examination Z01.20 [facility] [address] [place] [id number] 09 May, 2018 Dental examination Z01.20 and Caries K02.9 [facility] [address] [place] [address] May, Common wart B07.8 [facility] [id number] [place] [address] May, [facility] [id number] [place] [address] 27 Apr, 2018 Cocaine use disorder, moderate, in sustained remission F14.21 [place] [id number] [place] [address] 14 Apr, 2018 [facility] [id number] [place] [id number] 13 Apr, 2018 Dental examination Z01.20 [facility] [id number] [place] [id number] 10 Mar, 2018 Encounter for dental exam and cleaning w/o abnormal findings Z01.20 [facility] [address] [place] [address] Mar, [facility] [id number] [place] [address] Feb, Cocaine use disorder, moderate, in sustained remission F14.21 ; Opioid use disorder, moderate, in sustained remission F11.21 ; Alcohol use disorder, mild, 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 ; Tobacco use Z72.0 ; PTSD (post-traumatic stress disorder) F43.10 ; Methamphetamine use disorder, severe, 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 ; Generalized anxiety disorder F41.1 ; Cannabis abuse F12.10 and Major depressive disorder, recurrent episode, moderate F33.1 [facility] [address] [address] Jan, Cocaine use disorder, moderate, in sustained remission F14.21 [facility] [id number] [address] Jan, Cocaine use disorder, moderate, in sustained remission F14.21 ; Opioid use disorder, moderate, in sustained remission F11.21 ; Alcohol use disorder, mild, 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 ; Tobacco use Z72.0 ; PTSD (post-traumatic stress disorder) F43.10 ; Methamphetamine use disorder, severe, 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 ; Generalized anxiety disorder F41.1 ; Cannabis abuse F12.10 and Major depressive disorder, recurrent episode, moderate F33.1 [facility] [address] [place] [address] Jan, Dysuria R30.0 and GERD with esophagitis K21.0 [place] [id number] [place] [address] December, Major depressive disorder, recurrent episode, moderate F33.1 [place] [address] [place] [address] December, [facility] [address] [place] [address] December, Major depressive disorder, recurrent episode, moderate F33.1 ; Generalized anxiety disorder F41.1 ; Cannabis abuse F12.10 ; PTSD (post-traumatic stress disorder) F43.10 ; Methamphetamine use disorder, severe, 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 ; Cocaine use disorder, moderate, in sustained remission F14.21 ; Opioid use disorder, moderate, in sustained remission F11.21 ; Alcohol use disorder, mild, 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 and Tobacco use Z72.0 [facility] [address] [place] [address] Nov, [facility] [address] [id number] [address] Nov, [facility] [address] [address] 04 Apr, 2018 Wellness examination Z00.00 ; Encounter for immunization Z23 ; Screening for osteoporosis Z13.820 ; Screening for breast cancer Z12.31 and Left breast lump N63.20 [facility] [id number] [place] [phone] Oct, Dental examination Z01.20 [facility] [id number] [place] [address] Oct, [facility] [address] [address] Oct, [facility] [id number] [place] [address] 16 Sep, 2017 [facility] [id number] [place] [address] 15 Sep, 2017 [facility] [id number] [place] [address] 14 Sep, 2017 Left otitis media with effusion H65.92 ; Acute suppurative otitis media of right ear without spontaneous rupture of tympanic membrane, recurrence not specified H66.001 ; Dizziness R42 and Fatigue 780.79 [facility] [id number] [place] [address] Aug, Major depressive disorder, recurrent episode, moderate [...] F10.11 and Tobacco use Z72.0 [facility] [id number] [place] [address] Aug, Ingrown right big toenail L60.0 [facility] [id number] [place] [address] Aug, [facility] [address] [place] [address] 15 Aug, 2017 PTSD (post-traumatic stress disorder) F43.10 [facility] [address] [place] [address] Aug, Major depressive disorder, recurrent episode, moderate F33.1 ; Generalized anxiety disorder F41.1 and Cannabis abuse F12.10 [facility] [address] [place] [address] Jul, [facility] [id number] [place] [address] Jul, [facility] [id number] [place] [address] Jul, [facility] [address] [place] [address] Jul, Major depressive disorder, recurrent episode, moderate F33.1 ; Generalized anxiety disorder F41.1 and Cannabis abuse F12.10 [facility] [address] [address] Jul, [facility] [id number] [place] [address] Jul, [facility] [address] [address] Jul, Hyperlipidemia 272.4 [facility] [address] [place] [address] Jul, PTSD (post-traumatic stress disorder) F43.10 [facility] [address] [address] 14 Jul, 2017 Tobacco use Z72.0 ; [...] anxiety disorder F41.1 and Cannabis abuse F12.10 [place] [address] [place] [address] Jul, [facility] [id number] [place] [address] Jul, Dysuria R30.0 and Mixed hyperlipidemia E78.2 [place] [id number] [place] [address] Jun, Major depressive disorder, recurrent episode, moderate F33.1 ; Generalized anxiety disorder F41.1 and Cannabis abuse F12.10 [place] [id number] [place] [address] Jun, [place] [id number] [place] [address] Jun, Generalized anxiety disorder F41.1 ; Major depressive disorder, recurrent episode, moderate F33.1 ; PTSD (post-traumatic stress disorder) F43.10 ; Opioid use disorder, moderate, in sustained remission F11.21 ; Cannabis abuse F12.10 ; Alcohol use disorder, mild, 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 ; Methamphetamine use disorder, severe, 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 ; Cocaine use disorder, moderate, in sustained remission F14.21 and Tobacco use Z72.0 [place] [address] [address] Jun, Major depressive disorder, recurrent episode, moderate F33.1 ; Generalized anxiety disorder F41.1 and Cannabis abuse F12.10 [place] [address] [address] Jun, [place] [id number] [place] [address] Jun, [place] [address] [place] [address] Jun, Major depressive disorder, recurrent episode, moderate F33.1 ; Generalized anxiety disorder F41.1 and Cannabis abuse F12.10 [facility] [id number] [id number] Mar, Dental examination Z01.20 [facility] [id number] [place] [id number] Feb, Dental examination Z01.20 [facility] [id number] [place] [address] Mar, [facility] [id number] [place] [address] Mar, [facility] [id number] [place] [address] Feb, Hyperlipidemia 272.4 and Prediabetes 790.29 [facility] [id number] [place] [address] Feb, Fatigue 780.79 and Hyperlipidemia 272.4 [facility] [id number] [place] [address] Feb, Lumbago 724.2 ; Hyperlipidemia 272.4 ; Insomnia 780.52 and Fatigue 780.79 [facility] [id number] [place] [address] Nov, [facility] [address] [place] [address] Nov, [facility] [id number] [place] [address] Mar, [facility] [id number] [place] [address] Mar, [facility] [id number] [place] [address] Jan, [facility] [id number] [place] [address] Jan, [facility] [id number] [place] [address] December, [facility] [place] [facility] [address] [id number] [place] [address] December, [facility] [place] [facility] [address] [id number] [place] [address] Nov, [facility] [place] [facility] [address] [id number] [place] [address] Nov, [facility] [place] [facility] [address] [id number] [place] [address] Nov, [facility] [place] [facility] [address] [id number] [place] [address] Nov, [facility] [place] [facility] [address] [id number] [place] [address] Nov, [facility] [place] [facility] [address] [id number] [place] [address] Nov, [facility] [place] [facility] [address] [id number] [place] [address] Oct, [facility] [place] [facility] [address] [id number] [place] [address] 31 Oct, 2013 [facility] [place] [facility] [address] [id number] [place] [address] Oct, [facility] [place] [facility] [address] [id number] [place] [address] 20 Oct, 2013 [facility] [place] [facility] [address] [id number] [place] [address] 19 Oct, 2013 [facility] [place] [facility] [address] [id number] [place] [address] Oct, [facility] [place] [facility] [address] [id number] [place] [address] Oct, [facility] [place] [facility] [address] [id number] [place] [address] Oct, [facility] [place] [facility] [address] [id number] [place] [address] Oct, [facility] [place] [facility] [address] [id number] [place] [address] Oct, [facility] [place] [facility] [address] [id number] [place] [address] Oct, [facility] [place] [facility] [address] [facility] [id number] [place] [address] Oct, [facility] [place] [facility] [address] [id number] [place] [address] Oct, [facility] [place] [facility] [address] [id number] [place] [address] 24 Sep, 2013 [facility] [place] [facility] [address] [facility] [id number] [place] [address] 24 Sep, 2013 [facility] [place] [facility] [address] [facility] [id number] [place] [address] 20 Sep, 2013 [facility] [place] [facility] [address] [facility] [id number] [place] [address] 20 Sep, 2013 [facility] [place] [facility] [address] [facility] [id number] [place] [address] 20 Sep, 2013 [facility] [place] [facility] [address] [facility] [id number] [place] [address] 20 Sep, 2013 [facility] [place] [facility] [address] [facility] [id number] [place] [address] 18 Sep, 2013 [facility] [place] [facility] [address] [facility] [id number] [place] [address] 18 Sep, 2013 [facility] [place] [facility] [address] [facility] [id number] [place] [address] 14 Sep, 2013 [facility] [place] [facility] [address] [facility] [id number] [place] [address] 14 Sep, 2013 [facility] [place] [facility] [address] [facility] [id number] [place] [address] 14 Sep, 2013 [facility] [place] [facility] [address] [id number] [place] [address] 14 Sep, 2013 [facility] [place] [facility] [address] [id number] [place] [address] 14 Sep, 2013 [facility] [place] [facility] [address] [id number] [place] [address] 14 Sep, 2013 [facility] [place] [facility] [address] [id number] [place] [address] Sep, [facility] [place] [facility] [address] [id number] [place] [address] Sep, [facility] [place] [facility] [address] [id number] [place] [address] Sep, [facility] [place] [facility] [address] [id number] [place] [address] Sep, [facility] [place] [facility] [address] [id number] [place] [address] Sep, [facility] [place] [facility] [address] [id number] [place] [address] Sep, [facility] [place] [facility] [address] [id number] [place] [address] Aug, [facility] [place] [facility] [address] [id number] [place] [address] Aug, [facility] [place] [facility] [address] [id number] [place] [address] Aug, [facility] [place] [facility] [address] [id number] [place] [address] Aug, [facility] [place] [facility] [address] [id number] [place] [address] Aug, [facility] [place] [facility] [address] [id number] [place] [address] Jul, [facility] [place] [facility] [address] [id number] [place] [address] Jul, [facility] [address] [id number] [place] [address] Jul, [facility] [place] [facility] [address] [id number] [place] [address] Jul, [facility] [address] [id number] [place] [address] Jul, [facility] [place] [facility] [address] [id number] [place] [address] Jul, [facility] [address] [id number] [place] [address] Jul, [facility] [address] [id number] [place] [address] Jul, [facility] [place] [facility] [address] [id number] [place] [address] Jul, [facility] [address] [id number] [place] [address] Jun, [facility] [place] [facility] [address] [id number] [place] [address] Jun, [facility] [address] [id number] [place] [address] Jun, [facility] [place] [facility] [address] [id number] [place] [address] Jun, [facility] [place] [facility] [address] [id number] [place] [address] Jun, [facility] [place] [facility] [address] [id number] [place] [address] Jun, [facility] [place] [facility] [address] [id number] [place] [address] Jun, [facility] [place] [facility] [address] [id number] [place] [address] Jun, [facility] [place] [facility] [address] [id number] [place] [address] Jun, [facility] [place] [facility] [address] [id number] [place] [address] Jun, [facility] [place] [facility] [address] [id number] [place] [address] May, [facility] [place] [facility] [address] [id number] [place] [address] May, [facility] [place] [facility] [address] [id number] [place] [address] May, [facility] [place] [facility] [address] [id number] [place] [address] May, [facility] [place] [facility] [address] [id number] [place] [address] May, [facility] [place] [facility] [address] [id number] [address] May, [facility] [place] [facility] [address] [id number] [place] [address] May, [facility] [place] [facility] [address] [id number] [place] [address] May, [facility] [place] [facility] [address] [id number] [place] [address] May, [facility] [place] [facility] [address] [id number] [place] [address] 26 Apr, 2013 [facility] [place] [facility] [address] [id number] [place] [address] 16 Apr, 2013 [facility] [place] [facility] [address] [id number] [place] [address] 12 Apr, 2013 [facility] [place] [facility] [address] [id number] [place] [address] 06 Apr, 2013 [facility] [place] [facility] [address] [id number] [place] [address] Mar, [facility] [address] [id number] [place] [address] Mar, [facility] [place] [facility] [address] [id number] [place] [address] Mar, [facility] [place] [facility] [address] [id number] [place] [address] Mar, [facility] [place] [facility] [address] [id number] [place] [address] Mar, [facility] [place] [facility] [address] [id number] [place] [address] Mar, [facility] [place] [facility] [address] [id number] [place] [address] Mar, [facility] [place] [facility] [address] [id number] [place] [address] Feb, [facility] [place] [facility] [address] [id number] [place] [address] Feb, [facility] [place] [facility] [address] [id number] [place] [address] Feb, [facility] [place] [facility] [address] [id number] [place] [address] Feb, [facility] [place] [facility] [address] [id number] [place] [address] Feb, [facility] [place] [facility] [address] [id number] [place] [address] Feb, [facility] [place] [facility] [address] [id number] [place] [address] Feb, [facility] [place] [facility] [address] [id number] [place] [address] Feb, [facility] [place] [facility] [address] [id number] [place] [address] Feb, [facility] [place] [facility] [address] [id number] [place] [address] Feb, [facility] [address] [id number] [place] [address] Feb, [facility] [place] [facility] [address] [id number] [place] [address] Jan, [facility] [place] [facility] [address] [id number] [place] [address] Jan, [facility] [address] [id number] [place] [address] December, [facility] [place] [facility] [address] [id number] [place] [address] December, [facility] [address] [address] [id number] [place] [address] Nov, [facility] [address] [id number] [place] [address] Nov, [facility] [address] [id number] [place] [address] Oct, [facility] [address] [id number] [place] [address] Oct, [facility] [place] [facility] [address] [id number] [place] [address] Oct, [facility] [place] [facility] [address] [id number] [place] [address] Oct, [facility] [place] [facility] [address] [id number] [place] [address] Sep, [facility] [place] [facility] [address] [id number] [place] [address] Sep, [facility] [place] [facility] [address] [id number] [place] [address] Sep, [facility] [place] [facility] [address] [id number] [address] Sep, [facility] [address] [id number] [place] [address] Aug, [facility] [place] [facility] [address] [id number] [place] [address] Aug, [facility] [place] [facility] [address] [id number] [place] [address] Jul, [facility] [place] [facility] [address] [id number] [place] [address] Jul, [facility] [place] [facility] [address] [id number] [place] [address] Jul, [facility] [place] [facility] [address] [id number] [place] [address] Jul, [facility] [place] [facility] [address] [id number] [place] [address] Jul, [facility] [place] [facility] [address] [id number] [place] [address] Jul, [facility] [place] [facility] [address] [id number] [place] [address] Jun, [facility] [place] [facility] [address] [id number] [place] [address] Jun, [facility] [place] [facility] [address] [id number] [place] [address] Jun, [facility] [place] [facility] [address] [id number] [place] [address] Jun, [facility] [place] [facility] [address] [id number] [place] [address] Jun, [facility] [place] [facility] [address] [id number] [place] [address] May, [facility] [place] [facility] [address] [id number] [place] [address] May, [facility] [place] [facility] [address] [id number] [place] [address] May, [facility] [place] [facility] [address] [id number] [place] [address] May, [facility] [place] [facility] [address] [id number] [place] [address] May, [facility] [place] [facility] [address] [id number] [place] [address] May, [facility] [place] [facility] [address] [id number] [place] [address] May, [facility] [place] [facility] [address] [id number] [place] [address] May, [facility] [place] [facility] [address] [id number] [place] [address] Mar, [facility] [place] [facility] [address] [id number] [place] [address] Mar, [facility] [place] [facility] [address] [id number] [place] [address] Mar, [facility] [place] [facility] [address] [id number] [place] [address] Feb, [facility] [place] [facility] [address] [id number] [place] [address] Feb, [facility] [place] [facility] [address] [id number] [place] [address] Feb, [facility] [place] [facility] [address] [id number] [place] [address] Feb, [facility] [place] [facility] [address] [id number] [place] [address] Jan, [facility] [place] [facility] [address] [id number] [place] [address] Jan, [facility] [place] [facility] [address] [id number] [place] [address] Jan, [facility] [address] [id number] [place] [address] December, [facility] [place] [facility] [address] [id number] [place] [address] Nov, [facility] [place] [facility] [address] [id number] [place] [address] Oct, [facility] [place] [facility] [address] [id number] [place] [address] Oct, [facility] [place] [facility] [address] [id number] [place] [address] Oct, [facility] [place] [facility] [address] [id number] [place] [address] Oct, [facility] [place] [facility] [address] [id number] [place] [address] Aug, [facility] [place] [facility] [address] [id number] [place] [address] Aug, [facility] [place] [facility] [address] [id number] [place] [address] Aug, [facility] [place] [facility] [address] [id number] [place] [address] Aug, [facility] [place] [facility] [address] [id number] [place] [address] Aug, [facility] [place] [facility] [address] [id number] [place] [address] Aug, [facility] [place] [facility] [address] [id number] [place] [address] Aug, [facility] [place] [facility] [address] [id number] [place] [address] Aug, [facility] [place] [facility] [address] [id number] [place] [address] Jul, [facility] [place] [facility] [address] [id number] [place] [address] 29 Jun, 2011 [facility] [address] [id number] [place] [address] 29 Jun, 2011 [facility] [place] [facility] [address] [id number] [place] [address] 31 Jul, 2010 [facility] [place] [facility] [address] [id number] [place] [address] 22 Jul, 2010 [facility] [place] [facility] [address] [id number] [place] [address] 22 Jul, 2010 [facility] [place] [facility] [address] [id number] [place] [address] 14 Jul, 2010 [facility] [place] [facility] [address] [id number] [place] [address] 14 Jul, 2010 [facility] [place] [facility] [address] [id number] [place] [address] 24 Jun, 2010 [facility] [place] [facility] [address] [id number] [place] [address] May, [facility] [place] [facility] [address] [id number] [place] [address] Mar, [facility] [place] [facility] [address] [facility] [id number] [place] [address] Oct, [facility] [place] [facility] [address] [id number] [place] [address] Aug, [facility] [place] [facility] [address] [id number] [place] [address] 15 Jul, 2009 [facility] [place] [facility] [address] [id number] [place] [address] Jul, [facility] [place] [facility] [address] [id number] [place] [address] Jun, [facility] [place] [facility] [address] [facility] [id number] [place] [address] Jun, [facility] [place] [facility] [address] [facility] [id number] [place] [address] May, [facility] [address] [id number] [address] May, [facility] [address] [facility] [id number] [place] [address] Mar, [facility] [address] [facility] [id number] [place] [address] Mar, [facility] [address] [facility] [id number] [place] [address] Oct, IMMUNIZATIONS No Known Immunizations SOCIAL HISTORY Never Assessed REASON FOR VISIT [facility] [place] PLAN OF CARE VITAL SIGNS [...] disc replacement L1- L5 - Dr Muhammad ([place]) Surgical History appendectomy 1983 Surgical History hysterectomy 1993 Surgical History dilatation and curettage Surgical History heart cath- Dr Shaw [address] Solano bowel and intestines sep[address] Surgical [address] soalno removed skin tag and cyst 2018 Hospitalization History Hospitalization for surgery only
--- OUTSIDE RECORDS SUMMARY | 2019-01-03 13:50 | XMS REPORT ---
Author Author Migration, Doctor Organization [facility] Address Unknown Phone Unavailable Care Team Providers Care System Development Manager Name Role Phone Migration, Doctor Unavailable Unavailable PROBLEMS Type Condition ICD9-CM Code CNU32-ID Code Onset Dates Condition Status SNOMED Code Problem Prediabetes 790.29 Active 9167571 Problem Major depressive disorder, recurrent episode, moderate F33.1 Active 934457252 Problem Mixed hyperlipidemia E78.2 Active 491524184 Problem PTSD (post-traumatic stress disorder) F43.10 Active 67359242 Problem Tobacco use Z72.0 Active 865717191 Problem Alcohol use disorder, mild, 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 Active 97899581 Problem Cigarette nicotine dependence without complication F17.210 Active 09815149 Problem Cannabis abuse F12.10 Active 05503692 Problem Acute pain of left shoulder M25.512 Active 11020679 Problem Generalized anxiety disorder F41.1 Active 10722305 Problem Opioid use disorder, moderate, in sustained remission F11.21 Active 35942224 Problem Methamphetamine use disorder, severe, 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 Active 62819980 Problem Cocaine use disorder, moderate, in sustained remission F14.21 Active 27883415 Problem GERD with esophagitis K21.0 Active 071272221 ALLERGIES No Information ENCOUNTERS Encounter Location Date Diagnosis [place] [id number] [place] [address] December, [place] [address] [place] [address] 15 Nov, 2018 Major depressive disorder, recurrent episode, moderate F33.1 ; Cannabis abuse F12.10 ; Generalized anxiety disorder F41.1 ; Methamphetamine use disorder, severe, 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 ; Alcohol use disorder, mild, 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 ; PTSD (post-traumatic stress disorder) F43.10 and Cocaine use disorder, moderate, in sustained remission F14.21 [place] [address] [place] [address] Oct, Major depressive disorder, recurrent episode, moderate F33.1 ; Cannabis abuse F12.10 ; Generalized anxiety disorder F41.1 ; Methamphetamine use disorder, severe, 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 ; Alcohol use disorder, mild, 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 ; PTSD (post-traumatic stress disorder) F43.10 and Cocaine use disorder, moderate, in sustained remission F14.21 [facility] [address] [place] [address] Sep, Major depressive disorder, recurrent episode, moderate F33.1 [facility] [address] [place] [id number] Aug, [facility] [id number] [place] [address] Jul, Dysuria R30.0 [facility] [id number] [place] [address] Jul, Major depressive disorder, recurrent episode, moderate F33.1 [facility] [id number] [place] [address] Jun, Major depressive disorder, recurrent episode, moderate F33.1 [facility] [id number] [place] [address] Jun, Major depressive disorder, recurrent episode, moderate F33.1 [facility] [address] [place] [address] Jun, Acute pain of left shoulder M25.512 and Cigarette nicotine dependence without complication F17.210 [facility] [id number] [place] [address] May, [facility] [address] [address] May, Cocaine use disorder, moderate, in sustained remission F14.21 [facility] [id number] [place] [address] May, [facility] [address] [place] [address] 12 May, 2018 Dental examination Z01.20 [facility] [address] [place] [id number] 09 May, 2018 Dental examination Z01.20 and Caries K02.9 [facility] [address] [place] [address] May, Common wart B07.8 [facility] [id number] [place] [address] May, [facility] [id number] [place] [address] 27 Apr, 2018 Cocaine use disorder, moderate, in sustained remission F14.21 [place] [id number] [place] [address] 14 Apr, 2018 [facility] [id number] [place] [id number] 13 Apr, 2018 Dental examination Z01.20 [facility] [id number] [place] [id number] 10 Mar, 2018 Encounter for dental exam and cleaning w/o abnormal findings Z01.20 [facility] [address] [place] [address] Mar, [facility] [id number] [place] [address] Feb, Cocaine use disorder, moderate, in sustained remission F14.21 ; Opioid use disorder, moderate, in sustained remission F11.21 ; Alcohol use disorder, mild, 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 ; Tobacco use Z72.0 ; PTSD (post-traumatic stress disorder) F43.10 ; Methamphetamine use disorder, severe, 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 ; Generalized anxiety disorder F41.1 ; Cannabis abuse F12.10 and Major depressive disorder, recurrent episode, moderate F33.1 [facility] [address] [address] Jan, Cocaine use disorder, moderate, in sustained remission F14.21 [facility] [id number] [address] Jan, Cocaine use disorder, moderate, in sustained remission F14.21 ; Opioid use disorder, moderate, in sustained remission F11.21 ; Alcohol use disorder, mild, 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 ; Tobacco use Z72.0 ; PTSD (post-traumatic stress disorder) F43.10 ; Methamphetamine use disorder, severe, 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 ; Generalized anxiety disorder F41.1 ; Cannabis abuse F12.10 and Major depressive disorder, recurrent episode, moderate F33.1 [facility] [address] [place] [address] Jan, Dysuria R30.0 and GERD with esophagitis K21.0 [place] [id number] [place] [address] December, Major depressive disorder, recurrent episode, moderate F33.1 [place] [address] [place] [address] December, [facility] [address] [place] [address] December, Major depressive disorder, recurrent episode, moderate F33.1 ; Generalized anxiety disorder F41.1 ; Cannabis abuse F12.10 ; PTSD (post-traumatic stress disorder) F43.10 ; Methamphetamine use disorder, severe, 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 ; Cocaine use disorder, moderate, in sustained remission F14.21 ; Opioid use disorder, moderate, in sustained remission F11.21 ; Alcohol use disorder, mild, 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 and Tobacco use Z72.0 [facility] [address] [place] [address] Nov, [facility] [address] [id number] [address] Nov, [facility] [address] [address] 04 Apr, 2018 Wellness examination Z00.00 ; Encounter for immunization Z23 ; Screening for osteoporosis Z13.820 ; Screening for breast cancer Z12.31 and Left breast lump N63.20 [facility] [id number] [place] [id number] Oct, Dental examination Z01.20 [facility] [id number] [place] [address] Oct, [facility] [address] [address] Oct, [facility] [id number] [place] [address] 16 Sep, 2017 [facility] [id number] [place] [address] 15 Sep, 2017 [facility] [id number] [place] [address] 14 Sep, 2017 Left otitis media with effusion H65.92 ; Acute suppurative otitis media of right ear without spontaneous rupture of tympanic membrane, recurrence not specified H66.001 ; Dizziness R42 and Fatigue 780.79 [facility] [id number] [place] [address] Aug, Major depressive disorder, recurrent episode, moderate F33.1 ; Generalized anxiety disorder F41.1 ; Cannabis abuse F12.10 ; PTSD (post-traumatic stress disorder) F43.10 ; Methamphetamine use disorder, severe, 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 ; Cocaine use disorder, moderate, in sustained remission F14.21 ; Opioid use disorder, moderate, in sustained remission F11.21 ; Alcohol use disorder, mild, 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 and Tobacco use Z72.0 [facility] [id number] [place] [address] Aug, Ingrown right big toenail L60.0 [facility] [id number] [place] [address] Aug, [facility] [address] [place] [address] 15 Aug, 2017 PTSD (post-traumatic stress disorder) F43.10 [facility] [address] [place] [address] Aug, Major depressive disorder, recurrent episode, moderate F33.1 ; Generalized anxiety disorder F41.1 and Cannabis abuse F12.10 [facility] [address] [place] [address] Jul, [facility] [id number] [place] [address] Jul, [facility] [id number] [place] [address] Jul, [facility] [address] [place] [address] Jul, Major depressive disorder, recurrent episode, moderate F33.1 ; Generalized anxiety disorder F41.1 and Cannabis abuse F12.10 [facility] [address] [address] Jul, [facility] [id number] [place] [address] Jul, [facility] [address], [place] [address] Jul, Hyperlipidemia 272.4 [facility] [address] [place] [address] Jul, PTSD (post-traumatic stress disorder) F43.10 [facility] [address] [address] 14 Jul, 2017 Tobacco use Z72.0 ; [...] anxiety disorder F41.1 and Cannabis abuse F12.10 [place] [address] [place] [address] Jul, [facility] [id number] [place] [address] Jul, Dysuria R30.0 and Mixed hyperlipidemia E78.2 [place] [id number] [place] [address] Jun, Major depressive disorder, recurrent episode, moderate F33.1 ; Generalized anxiety disorder F41.1 and Cannabis abuse F12.10 [place] [id number] [place] [address] Jun, [place] [id number] [place] [address] Jun, Generalized anxiety disorder F41.1 ; Major depressive disorder, recurrent episode, moderate F33.1 ; PTSD (post-traumatic stress disorder) F43.10 ; Opioid use disorder, moderate, in sustained remission F11.21 ; Cannabis abuse F12.10 ; Alcohol use disorder, mild, 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 ; Methamphetamine use disorder, severe, 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 ; Cocaine use disorder, moderate, in sustained remission F14.21 and Tobacco use Z72.0 [place] [address], [place] [address] Jun, Major depressive disorder, recurrent episode, moderate F33.1 ; Generalized anxiety disorder F41.1 and Cannabis abuse F12.10 [place] [address] [address] Jun, [place] [id number] [place] [address] Jun, [place] [address] [place] [address] Jun, Major depressive disorder, recurrent episode, moderate F33.1 ; Generalized anxiety disorder F41.1 and Cannabis abuse F12.10 [facility] [id number] [id number] Mar, Dental examination Z01.20 [facility] [id number] [place] [address] [id number] Feb, Dental examination Z01.20 [facility] [id number] [place] [address] Mar, [facility] [id number] [place] [address] Mar, [facility] [id number] [place] [address] Feb, Hyperlipidemia 272.4 and Prediabetes 790.29 [facility] [id number] [place] [address] Feb, Fatigue 780.79 and Hyperlipidemia 272.4 [facility] [id number] [place] [address] Feb, Lumbago 724.2 ; Hyperlipidemia 272.4 ; Insomnia 780.52 and Fatigue 780.79 [facility] [id number] [place] [address] Nov, [facility] [address] [place] [address] Nov, [facility] [id number] [place] [address] Mar, [facility] [id number] [place] [address] Mar, [facility] [id number] [place] [address] Jan, [facility] [id number] [place] [address] Jan, [facility] [id number] [place] [address] December, [facility] [place] [facility] [address] [id number] [place] [address] December, [facility] [place] [facility] [address] [id number] [place] [address] Nov, [facility] [place] [facility] [address] [id number] [place] [address] Nov, [facility] [place] [facility] [address] [id number] [place] [address] Nov, [facility] [place] [facility] [address] [id number] [place] [address] Nov, [facility] [place] [facility] [address] [id number] [place] [address] Nov, [facility] [place] [facility] [address] [id number] [place] [address] Nov, [facility] [place] [facility] [address] [id number] [place] [address] Oct, [facility] [place] [facility] [address] [id number] [place] [address] 31 Oct, 2013 [facility] [place] [facility] [address] [id number] [place] [address] Oct, [facility] [place] [facility] [address] [id number] [place] [address] 20 Oct, 2013 [facility] [place] [facility] [address] [id number] [place] [address] 19 Oct, 2013 [facility] [place] [facility] [address] [id number] [place] [address] Oct, [facility] [place] [facility] [address] [id number] [place] [address] Oct, [facility] [place] [facility] [address] [id number] [place] [address] Oct, [facility] [place] [facility] [address] [id number] [place] [address] Oct, [facility] [place] [facility] [address] [id number] [place] [address] Oct, [facility] [place] [facility] [address] [id number] [place] [address] Oct, [facility] [place] [facility] [address] [facility] [id number] [place] [address] Oct, [facility] [place] [facility] [address] [id number] [place] [address] Oct, [facility] [place] [facility] [address] [id number] [place] [address] 24 Sep, 2013 [facility] [place] [facility] [address] [facility] [id number] [place] [address] 24 Sep, 2013 [facility] [place] [facility] [address] [facility] [id number] [place] [address] 20 Sep, 2013 [facility] [place] [facility] [address] [facility] [id number] [place] [address] 20 Sep, 2013 [facility] [place] [facility] [address] [facility] [id number] [place] [address] 20 Sep, 2013 [facility] [place] [facility] [address] [facility] [id number] [place] [address] 20 Sep, 2013 [facility] [place] [facility] [address] [facility] [id number] [place] [address] 18 Sep, 2013 [facility] [place] [facility] [address] [facility] [id number] [place] [address] 18 Sep, 2013 [facility] [place] [facility] [address] [facility] [id number] [place] [address] 14 Sep, 2013 [facility] [place] [facility] [address] [facility] [id number] [place] [address] 14 Sep, 2013 [facility] [place] [facility] [address] [facility] [id number] [place] [address] 14 Sep, 2013 [facility] [place] [facility] [address] [id number] [place] [address] 14 Sep, 2013 [facility] [place] [facility] [address] [id number] [place] [address] 14 Sep, 2013 [facility] [place] [facility] [address] [id number] [place] [address] 14 Sep, 2013 [facility] [place] [facility] [address] [id number] [place] [address] Sep, [facility] [place] [facility] [address] [id number] [place] [address] Sep, [facility] [place] [facility] [address] [id number] [place] [address] Sep, [facility] [place] [facility] [address] [id number] [place] [address] Sep, [facility] [place] [facility] [address] [id number] [place] [address] Sep, [facility] [place] [facility] [address] [id number] [place] [address] Sep, [facility] [place] [facility] [address] [id number] [place] [address] Aug, [facility] [place] [facility] [address] [id number] [place] [address] Aug, [facility] [place] [facility] [address] [id number] [place] [address] Aug, [facility] [place] [facility] [address] [id number] [place] [address] Aug, [facility] [place] [facility] [address] [id number] [place] [address] Aug, [facility] [place] [facility] [address] [id number] [place] [address] Jul, [facility] [place] [facility] [address] [id number] [place] [address] Jul, [facility] [address] [id number] [place] [address] Jul, [facility] [place] [facility] [address] [id number] [place] [address] Jul, [facility] [address] [id number] [place] [address] Jul, [facility] [place] [facility] [address] [id number] [place] [address] Jul, [facility] [address] [id number] [place] [address] Jul, [facility] [address] [id number] [place] [address] Jul, [facility] [place] [facility] [address] [id number] [place] [address] Jul, [facility] [address] [id number] [place] [address] Jun, [facility] [place] [facility] [address] [id number] [place] [address] Jun, [facility] [address] [id number] [place] [address] Jun, [facility] [place] [facility] [address] [id number] [place] [address] Jun, [facility] [place] [facility] [address] [id number] [place] [address] Jun, [facility] [place] [facility] [address] [id number] [place] [address] Jun, [facility] [place] [facility] [address] [id number] [place] [address] Jun, [facility] [place] [facility] [address] [id number] [place] [address] Jun, [facility] [place] [facility] [address] [id number] [place] [address] Jun, [facility] [place] [facility] [address] [id number] [place] [address] Jun, [facility] [place] [facility] [address] [id number] [place] [address] May, [facility] [place] [facility] [address] [id number] [place] [address] May, [facility] [place] [facility] [address] [id number] [place] [address] May, [facility] [place] [facility] [address] [id number] [place] [address] May, [facility] [place] [facility] [address] [id number] [place] [address] May, [facility] [place] [facility] [address] [id number], [place] [address] May, [facility] [place] [facility] [address] [id number] [place] [address] May, [facility] [place] [facility] [address] [id number] [address] May, [facility] [place] [facility] [address] [id number], [place] [address] May, [facility] [place] [facility] [address] [id number], [place] [address] 26 Apr, 2013 [facility] [place] [facility] [address] [id number] [place] [address] 16 Apr, 2013 [facility] [place] [facility] [address] [id number], [place] [address] 12 Apr, 2013 [facility] [place] [facility] [address] [id number] [place] [address] 06 Apr, 2013 [facility] [place] [facility] [address] [id number] [place] [address] Mar, [facility] [address] [id number] [place] [address] Mar, [facility] [place] [facility] [address] [id number] [place] [address] Mar, [facility] [place] [facility] [address] [id number] [place] [address] Mar, [facility] [place] [facility] [address] [id number] [place] [address] Mar, [facility] [place] [facility] [address] [id number] [place] [address] Mar, [facility] [place] [facility] [address] [id number] [place] [address] Mar, [facility] [place] [facility] [address] [id number] [place] [address] Feb, [facility] [place] [facility] [address] [id number] [place] [address] Feb, [facility] [place] [facility] [address] [id number] [place] [address] Feb, [facility] [place] [facility] [address] [id number] [place] [address] Feb, [facility] [place] [facility] [address] [id number] [place] [address] Feb, [facility] [place] [facility] [address] [id number] [place] [address] Feb, [facility] [place] [facility] [address] [id number] [place] [address] Feb, [facility] [place] [facility] [address] [id number] [place] [address] Feb, [facility] [place] [facility] [address] [id number] [place] [address] Feb, [facility] [place] [facility] [address] [id number] [place] [address] Feb, [facility] [address] [id number] [place] [address] Feb, [facility] [place] [facility] [address] [id number] [place] [address] Jan, [facility] [place] [facility] [address] [id number] [place] [address] Jan, [facility] [address] [id number] [place] [address] December, [facility] [place] [facility] [address] [id number] [place] [address] December, [facility] [address] [id number] [place] [address] Nov, [facility] [address] [id number] [place] [address] Nov, [facility] [address] [id number] [place] [address] Oct, [facility] [address] [id number] [place] [address] Oct, [facility] [place] [facility] [address] [id number] [place] [address] Oct, [facility] [place] [facility] [address] [id number] [place] [address] Oct, [facility] [place] [facility] [address] [id number] [place] [address] Sep, [facility] [place] [facility] [address] [id number] [place] [address] Sep, [facility] [place] [facility] [address] [id number] [place] [address] Sep, [facility] [place] [facility] [address] [id number], [place] [address] Sep, [facility] [address] [id number] [place] [address] Aug, [facility] [place] [facility] [address] [id number] [place] [address] Aug, [facility] [place] [facility] [address] [id number] [place] [address] Jul, [facility] [place] [facility] [address] [id number] [place] [address] Jul, [facility] [place] [facility] [address] [id number] [place] [address] Jul, [facility] [place] [facility] [address] [id number] [place] [address] Jul, [facility] [place] [facility] [address] [id number] [place] [address] Jul, [facility] [place] [facility] [address] [id number] [place] [address] Jul, [facility] [place] [facility] [address] [id number] [place] [address] Jun, [facility] [place] [facility] [address] [id number] [place] [address] Jun, [facility] [place] [facility] [address] [id number], [place] [address] Jun, [facility] [place] [facility] [address] [id number], [place] [address] Jun, [facility] [place] [facility] [address] [id number], [place] [address] Jun, [facility] [place] [facility] [address] [id number] [place] [address] May, [facility] [place] [facility] [address] [id number] [place] [address] May, [facility] [place] [facility] [address] [id number] [place] [address] May, [facility] [place] [facility] [address] [id number] [place] [address] May, [facility] [place] [facility] [address] [id number] [place] [address] May, [facility] [place] [facility] [address] [id number] [place] [address] May, [facility] [place] [facility] [address] [id number] [place] [address] May, [facility] [place] [facility] [address] [id number] [place] [address] May, [facility] [place] [facility] [address] [id number] [place] [address] Mar, [facility] [place] [facility] [address] [id number] [place] [address] Mar, [facility] [place] [facility] [address] [id number] [place] [address] Mar, [facility] [place] [facility] [address] [id number] [place] [address] Feb, [facility] [place] [facility] [address] [id number] [place] [address] Feb, [facility] [place] [facility] [address] [id number] [place] [address] Feb, [facility] [place] [facility] [address] [id number] [place] [address] Feb, [facility] [place] [facility] [address] [id number] [place] [address] Jan, [facility] [place] [facility] [address] [id number] [place] [address] Jan, [facility] [place] [facility] [address] [id number] [place] [address] Jan, [facility] [address] [id number] [place] [address] December, [facility] [place] [facility] [address] [id number] [place] [address] Nov, [facility] [place] [facility] [address] [id number] [place] [address] Oct, [facility] [place] [facility] [address] [id number] [place] [address] Oct, [facility] [place] [facility] [address] [id number] [place] [address] Oct, [facility] [place] [facility] [address] [id number] [place] [address] Oct, [facility] [place] [facility] [address] [id number] [place] [address] Aug, [facility] [place] [facility] [address] [id number] [place] [address] Aug, [facility] [place] [facility] [address] [id number] [place] [address] Aug, [facility] [place] [facility] [address] [id number] [place] [address] Aug, [facility] [place] [facility] [address] [id number] [place] [address] Aug, [facility] [place] [facility] [address] [id number], [place] [address] Aug, [facility] [place] [facility] [address] [id number] [place] [address] Aug, [facility] [place] [facility] [address] [id number] [place] [address] Aug, [facility] [place] [facility] [address] [id number] [place] [address] Jul, [facility] [place] [facility] [address] [id number] [place] [address] 29 Jun, 2011 [facility] [address] [id number] [place] [address] 29 Jun, 2011 [facility] [place] [facility] [address] [id number] [place] [address] 31 Jul, 2010 [facility] [place] [facility] [address] [id number] [place] [address] 22 Jul, 2010 [facility] [place] [facility] [address] [id number] [place] [address] 22 Jul, 2010 [facility] [place] [facility] [address] [id number] [place] [address] 14 Jul, 2010 [facility] [place] [facility] [address] [id number] [place] [address] 14 Jul, 2010 [facility] [place] [facility] [address] [id number] [place] [address] 24 Jun, 2010 [facility] [place] [facility] [address] [id number] [place] [address] May, [facility] [place] [facility] [address] [id number] [place] [address] Mar, [facility] [place] [facility] [address] [facility] [id number] [place] [address] Oct, [facility] [place] [facility] [address] [id number] [place] [address] Aug, [facility] [place] [facility] [address] [id number] [place] [address] 15 Jul, 2009 [facility] [place] [facility] [address] [id number] [place] [address] Jul, [facility] [place] [facility] [address] [id number] [place] [address] Jun, [facility] [place] [facility] [address] [facility] [id number] [place] [address] Jun, [facility] [place] [facility] [address] [facility] [id number], [place] [address] May, [facility] [address] [id number], [place] [address] May, [facility] [address] [facility] [id number], [place] [address] Mar, [facility] [address] [facility] [id number], [place] [address] Mar, [facility] [address] [facility] [id number], [place] [address] Oct, IMMUNIZATIONS No Known Immunizations SOCIAL HISTORY Never Assessed REASON FOR VISIT [facility] PLAN OF CARE VITAL SIGNS MEDICATIONS Unknown [...] disc replacement L1- L5 - Dr Muhammad ([place]) Surgical History appendectomy 1983 Surgical History hysterectomy 1993 Surgical History dilatation and curettage Surgical History heart cath- Dr Shaw [address] Solano bowel and intestines sep2015 Surgical History Dr solano removed skin tag and cyst 2018 Hospitalization History Hospitalization for surgery only
--- OUTSIDE RECORDS SUMMARY | 2019-01-03 13:51 | XMS REPORT ---
Author Author Migration, Doctor Organization [facility] Address Unknown Phone Unavailable Care Team Providers Care Mold Making Supervisor Name Role Phone Migration, Doctor Unavailable Unavailable PROBLEMS Type Condition ICD9-CM Code [id number] Code Onset Dates Condition Status SNOMED Code Problem Prediabetes 790.29 Active 3926806 Problem Major depressive disorder, recurrent episode, moderate F33.1 Active 979866740 Problem Mixed hyperlipidemia E78.2 Active 544731372 Problem PTSD (post-traumatic stress disorder) F43.10 Active 44774506 Problem Tobacco use Z72.0 Active 163778348 Problem Alcohol use disorder, mild, 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 Active 36287374 Problem Cigarette nicotine dependence without complication F17.210 Active 54939170 Problem Cannabis abuse F12.10 Active 72373821 Problem Acute pain of left shoulder M25.512 Active 11688830 Problem Generalized anxiety disorder F41.1 Active 17683596 Problem Opioid use disorder, moderate, in sustained remission F11.21 Active 97853126 Problem Methamphetamine use disorder, severe, 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 Active 64548879 Problem Cocaine use disorder, moderate, in sustained remission F14.21 Active 62619729 Problem GERD with esophagitis K21.0 Active 138319972 ALLERGIES No Information ENCOUNTERS Encounter Location Date Diagnosis [place] [id number] [place] [id number] December, [place] [address] [place] [id number] 15 Nov, 2018 Major depressive disorder, recurrent episode, moderate F33.1 ; Cannabis abuse F12.10 ; Generalized anxiety disorder F41.1 ; Methamphetamine use disorder, severe, 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 ; Alcohol use disorder, mild, 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 ; PTSD (post-traumatic stress disorder) F43.10 and Cocaine use disorder, moderate, in sustained remission F14.21 [place] [id number] [place] [address] Oct, Major depressive disorder, recurrent episode, moderate F33.1 ; Cannabis abuse F12.10 ; Generalized anxiety disorder F41.1 ; Methamphetamine use disorder, severe, 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 ; Alcohol use disorder, mild, 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 ; PTSD (post-traumatic stress disorder) F43.10 and Cocaine use disorder, moderate, in sustained remission F14.21 [facility] [address] [place] [id number] Sep, Major depressive disorder, recurrent episode, moderate F33.1 [facility] [address] [place] [id number] Aug, [facility] [id number] [place] [address] Jul, Dysuria R30.0 [facility] [id number] [place] [address] Jul, Major depressive disorder, recurrent episode, moderate F33.1 [facility] [id number] [place] [id number] Jun, Major depressive disorder, recurrent episode, moderate F33.1 [facility] [id number] [place] [id number] Jun, Major depressive disorder, recurrent episode, moderate F33.1 [facility] [address] [place] [id number] Jun, Acute pain of left shoulder M25.512 and Cigarette nicotine dependence without complication F17.210 [facility] [id number] [place] [address] May, [facility] [address] [address] May, Cocaine use disorder, moderate, in sustained remission F14.21 [facility] [id number] [place] [address] May, [facility] [address] [place] [address] 12 May, 2018 Dental examination Z01.20 [facility] [address] [place] [address] [id number] May, 2018 Dental examination Z01.20 and Caries K02.9 [facility] [address] [place] [address] May, Common wart B07.8 [facility] [id number] [place] [address] May, [facility] [id number] [place] [id number] 27 Apr, 2018 Cocaine use disorder, moderate, in sustained remission F14.21 [place] [id number] [place] [id number] 14 Apr, 2018 [facility] [address] [id number] [place] [id number] 13 Apr, 2018 Dental examination Z01.20 [facility] [address] [id number] [place] [address] [id number] 10 Mar, 2018 Encounter for dental exam and cleaning w/o abnormal findings Z01.20 [facility] [address] [place] [address] Mar, [facility] [id number] [place] [phone] Feb, Cocaine use disorder, moderate, in sustained [...] recurrent episode, moderate F33.1 [facility] [address] [address] Jan, Cocaine use disorder, moderate, in sustained remission F14.21 [facility] [id number] [address] Jan, Cocaine use disorder, moderate, in sustained [...] recurrent episode, moderate F33.1 [facility] [address] [place] [address] Jan, Dysuria R30.0 and GERD with esophagitis K21.0 [place] [id number] [place] [id number] December, Major depressive disorder, recurrent episode, moderate F33.1 [place] [address] [place] [address] December, [facility] [address] [place] [address] December, Major depressive disorder, recurrent episode, moderate [...] and Tobacco use Z72.0 [facility] [address] [place] [id number] Nov, [facility] [address] [id number] [address] Nov, [facility] [address] [address] 04 Apr, 2018 Wellness examination Z00.00 ; Encounter for immunization Z23 ; Screening for osteoporosis Z13.820 ; Screening for breast cancer Z12.31 and Left breast lump N63.20 [facility] [id number] [place] [address] [id number] Oct, Dental examination Z01.20 [facility] [id number] [place] [id number] Oct, [facility] [address] [address] Oct, [facility] [id number] [place] [id number] 16 Sep, 2017 [facility] [id number] [place] [id number] 15 Sep, 2017 [facility] [id number] [place] [address] 14 Sep, 2017 Left otitis media with effusion H65.92 ; Acute suppurative otitis media of right ear without spontaneous rupture of tympanic membrane, recurrence not specified H66.001 ; Dizziness R42 and Fatigue 780.79 [facility] [id number] [place] [address] Aug, Major depressive disorder, recurrent episode, moderate F33.1 ; Generalized anxiety disorder F41.1 ; Cannabis abuse F12.10 ; PTSD (post-traumatic stress disorder) F43.10 ; Methamphetamine use disorder, severe, 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 ; Cocaine use disorder, moderate, in sustained remission F14.21 ; Opioid use disorder, moderate, in sustained remission F11.21 ; Alcohol use disorder, mild, 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 and Tobacco use Z72.0 [facility] [id number] [place] [address] Aug, Ingrown right big toenail L60.0 [facility] [id number] [place] [id number] Aug, [facility] [address] [place] [address] 15 Aug, 2017 PTSD (post-traumatic stress disorder) F43.10 [facility] [address] [place] [id number] Aug, Major depressive disorder, recurrent episode, moderate F33.1 ; Generalized anxiety disorder F41.1 and Cannabis abuse F12.10 [facility] [address] [place] [id number] Jul, [facility] [id number] [place] [id number] Jul, [facility] [id number] [place] [address] Jul, [facility] [address] [place] [address] Jul, Major depressive disorder, recurrent episode, moderate F33.1 ; Generalized anxiety disorder F41.1 and Cannabis abuse F12.10 [facility] [address] [address] Jul, [facility] [id number] [place] [address] Jul, [facility] [address] [address] Jul, Hyperlipidemia 272.4 [facility] [address] [place] [id number] Jul, PTSD (post-traumatic stress disorder) F43.10 [facility] [address] [address] 14 Jul, 2017 Tobacco use Z72.0 ; [...] anxiety disorder F41.1 and Cannabis abuse F12.10 [place] [address] [place] [id number] Jul, [facility] [id number] [place] [id number] Jul, Dysuria R30.0 and Mixed hyperlipidemia E78.2 [place] [id number] [place] [id number] Jun, Major depressive disorder, recurrent episode, moderate F33.1 ; Generalized anxiety disorder F41.1 and Cannabis abuse F12.10 [place] [id number] [place] [id number] Jun, [place] [id number] [place] [address] Jun, Generalized anxiety disorder F41.1 ; Major depressive disorder, recurrent episode, moderate F33.1 ; PTSD (post-traumatic stress disorder) F43.10 ; Opioid use disorder, moderate, in sustained remission F11.21 ; Cannabis abuse F12.10 ; Alcohol use disorder, mild, 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 ; Methamphetamine use disorder, severe, 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 ; Cocaine use disorder, moderate, in sustained remission F14.21 and Tobacco use Z72.0 [place] [address] [address] Jun, Major depressive disorder, recurrent episode, moderate F33.1 ; Generalized anxiety disorder F41.1 and Cannabis abuse F12.10 [place] [address] [address] Jun, [place] [address] [id number] [place] [address] Jun, [place] [address] [place] [id number] Jun, Major depressive disorder, recurrent episode, moderate F33.1 ; Generalized anxiety disorder F41.1 and Cannabis abuse F12.10 [facility] [address] [id number] [id number] Mar, Dental examination Z01.20 [facility] [address] [id number] [place] [address] [id number] Feb, Dental examination Z01.20 [facility] [id number] [place] [address] Mar, [facility] [id number] [place] [address] Mar, [facility] [id number] [place] [address] Feb, Hyperlipidemia 272.4 and Prediabetes 790.29 [facility] [id number] [place] [address] Feb, Fatigue 780.79 and Hyperlipidemia 272.4 [facility] [id number] [place] [id number] Feb, Lumbago 724.2 ; Hyperlipidemia 272.4 ; Insomnia 780.52 and Fatigue 780.79 [facility] [id number] [place] [address] Nov, [facility] [address] [place] [id number] Nov, [facility] [id number] [place] [address] Mar, [facility] [id number] [place] [id number] Mar, [facility] [id number] [place] [address] Jan, [facility] [id number] [place] [address] Jan, [facility] [id number] [place] [address] December, [facility] [place] [facility] [address] [id number] [place] [address] December, [facility] [place] [facility] [address] [id number] [place] [address] Nov, [facility] [place] [facility] [address] [id number] [place] [address] Nov, [facility] [place] [facility] [address] [id number] [place] [address] Nov, [facility] [place] [facility] [address] [id number] [place] [address] Nov, [facility] [place] [facility] [address] [id number] [place] [address] Nov, [facility] [place] [facility] [address] [id number] [place] [address] Nov, [facility] [place] [facility] [address] [id number] [place] [address] Oct, [facility] [place] [facility] [address] [id number] [place] [address] 31 Oct, 2013 [facility] [place] [facility] [address] [id number] [place] [address] Oct, [facility] [place] [facility] [address] [id number] [place] [address] 20 Oct, 2013 [facility] [place] [facility] [address] [id number] [place] [address] 19 Oct, 2013 [facility] [place] [facility] [address] [id number] [place] [address] Oct, [facility] [place] [facility] [address] [id number] [place] [address] Oct, [facility] [place] [facility] [address] [id number] [place] [address] Oct, [facility] [place] [facility] [address] [id number] [place] [address] Oct, [facility] [place] [facility] [address] [id number] [place] [address] Oct, [facility] [place] [facility] [address] [id number] [place] [address] Oct, [facility] [place] [facility] [address] [facility] [id number] [place] [address] Oct, [facility] [place] [facility] [address] [id number] [place] [address] Oct, [facility] [place] [facility] [address] [id number] [place] [address] 24 Sep, 2013 [facility] [place] [facility] [address] [facility] [id number] [place] [address] 24 Sep, 2013 [facility] [place] [facility] [address] [facility] [id number] [place] [address] 20 Sep, 2013 [facility] [place] [facility] [address] [facility] [id number] [place] [address] 20 Sep, 2013 [facility] [place] [facility] [address] [facility] [id number] [place] [address] 20 Sep, 2013 [facility] [place] [facility] [address] [facility] [id number] [place] [address] 20 Sep, 2013 [facility] [place] [facility] [address] [facility] [id number] [place] [address] 18 Sep, 2013 [facility] [place] [facility] [address] [facility] [id number] [place] [address] 18 Sep, 2013 [facility] [place] [facility] [address] [facility] [id number] [place] [address] 14 Sep, 2013 [facility] [place] [facility] [address] [facility] [id number] [place] [address] 14 Sep, 2013 [facility] [place] [facility] [address] [facility] [id number] [place] [address] 14 Sep, 2013 [facility] [place] [facility] [address] [id number] [place] [address] 14 Sep, 2013 [facility] [place] [facility] [address] [id number] [place] [address] 14 Sep, 2013 [facility] [place] [facility] [address] [id number] [place] [address] 14 Sep, 2013 [facility] [place] [facility] [address] [id number] [place] [address] Sep, [facility] [place] [facility] [address] [id number] [place] [address] Sep, [facility] [place] [facility] [address] [id number] [place] [address] Sep, [facility] [place] [facility] [address] [id number] [place] [address] Sep, [facility] [place] [facility] [address] [id number] [place] [address] Sep, [facility] [place] [facility] [address] [id number] [place] [address] Sep, [facility] [place] [facility] [address] [id number] [place] [address] Aug, [facility] [place] [facility] [address] [id number] [place] [address] Aug, [facility] [place] [facility] [address] [id number] [place] [address] Aug, [facility] [place] [facility] [address] [id number] [place] [address] Aug, [facility] [place] [facility] [address] [id number] [place] [address] Aug, [facility] [place] [facility] [address] [id number] [place] [address] Jul, [facility] [place] [facility] [address] [id number] [place] [address] Jul, [facility] [address] [id number] [place] [address] Jul, [facility] [place] [facility] [address] [id number] [place] [address] Jul, [facility] [address] [id number] [place] [address] Jul, [facility] [place] [facility] [address] [id number] [place] [address] Jul, [facility] [address] [id number] [place] [address] Jul, [facility] [address] [id number] [place] [address] Jul, [facility] [place] [facility] [address] [id number] [place] [address] Jul, [facility] [address] [id number] [place] [address] Jun, [facility] [place] [facility] [address] [id number] [place] [address] Jun, [facility] [address] [id number] [place] [address] Jun, [facility] [place] [facility] [address] [id number] [place] [address] Jun, [facility] [place] [facility] [address] [id number] [place] [address] Jun, [facility] [place] [facility] [address] [id number] [place] [address] Jun, [facility] [place] [facility] [address] [id number] [place] [address] Jun, [facility] [place] [facility] [address] [id number] [place] [address] Jun, [facility] [place] [facility] [address] [id number] [place] [address] Jun, [facility] [place] [facility] [address] [id number] [place] [address] Jun, [facility] [place] [facility] [address] [id number] [place] [address] May, [facility] [place] [facility] [address] [id number] [place] [address] May, [facility] [place] [facility] [address] [id number] [place] [address] May, [facility] [place] [facility] [address] [id number] [place] [address] May, [facility] [place] [facility] [address] [id number] [place] [address] May, [facility] [place] [facility] [address] [id number] [address] May, [facility] [place] [facility] [address] [id number] [place] [address] May, [facility] [place] [facility] [address] [id number], [place] [address] May, [facility] [place] [facility] [address] [id number], [place] [address] May, [facility] [place] [facility] [address] [id number], [place] [address] 26 Apr, 2013 [facility] [place] [facility] [address] [id number] [place] [address] 16 Apr, 2013 [facility] [place] [facility] [address] [id number], [place] [address] 12 Apr, 2013 [facility] [place] [facility] [address] [id number] [place] [address] 06 Apr, 2013 [facility] [place] [facility] [address] [id number] [place] [address] Mar, [facility] [address] [id number] [place] [address] Mar, [facility] [place] [facility] [address] [id number] [place] [address] Mar, [facility] [place] [facility] [address] [id number] [place] [address] Mar, [facility] [place] [facility] [address] [id number] [place] [address] Mar, [facility] [place] [facility] [address] [id number] [place] [address] Mar, [facility] [place] [facility] [address] [id number] [place] [address] Mar, [facility] [place] [facility] [address] [id number] [place] [address] Feb, [facility] [place] [facility] [address] [id number] [place] [address] Feb, [facility] [place] [facility] [address] [id number] [place] [address] Feb, [facility] [place] [facility] [address] [id number] [place] [address] Feb, [facility] [place] [facility] [address] [id number] [place] [address] Feb, [facility] [place] [facility] [address] [id number] [place] [address] Feb, [facility] [place] [facility] [address] [id number] [place] [address] Feb, [facility] [place] [facility] [address] [id number] [place] [address] Feb, [facility] [place] [facility] [address] [id number] [place] [address] Feb, [facility] [place] [facility] [address] [id number] [place] [address] Feb, [facility] [address] [id number] [place] [address] Feb, [facility] [place] [facility] [address] [id number] [place] [address] Jan, [facility] [place] [facility] [address] [id number] [place] [address] Jan, [facility] [address] [id number] [place] [address] December, [facility] [place] [facility] [address] [id number] [place] [address] December, [facility] [address] [id number] [place] [address] Nov, [facility] [address] [id number] [place] [address] Nov, [facility] [address] [id number] [place] [address] Oct, [facility] [address] [id number] [place] [address] Oct, [facility] [place] [facility] [address] [id number] [place] [address] Oct, [facility] [place] [facility] [address] [id number] [place] [address] Oct, [facility] [facility] [place] [facility] [address] [id number] [place] [address] Sep, [facility] [place] [facility] [address] [id number] [place] [address] Sep, [facility] [place] [facility] [address] [id number] [place] [address] Sep, [facility] [place] [facility] [address] [id number] [address] Sep, [facility] [address] [id number] [place] [address] Aug, [facility] [place] [facility] [address] [id number] [place] [address] Aug, [facility] [place] [facility] [address] [id number] [place] [address] Jul, [facility] [place] [facility] [address] [id number] [place] [address] Jul, [facility] [place] [facility] [address] [id number] [place] [address] Jul, [facility] [place] [facility] [address] [id number] [place] [address] Jul, [facility] [place] [facility] [address] [id number] [place] [address] Jul, [facility] [place] [facility] [address] [id number] [place] [address] Jul, [facility] [place] [facility] [address] [id number] [place] [address] Jun, [facility] [place] [facility] [address] [id number] [place] [address] Jun, [facility] [place] [facility] [address] [id number], [place] [address] Jun, [facility] [place] [facility] [address] [id number], [place] [address] Jun, [facility] [place] [facility] [address] [id number] [address] Jun, [facility] [place] [facility] [address] [id number] [place] [address] May, [facility] [place] [facility] [address] [id number] [place] [address] May, [facility] [place] [facility] [address] [id number] [place] [address] May, [facility] [place] [facility] [address] [id number] [place] [address] May, [facility] [place] [facility] [address] [id number] [place] [address] May, [facility] [place] [facility] [address] [id number] [place] [address] May, [facility] [place] [facility] [address] [id number] [place] [address] May, [facility] [place] [facility] [address] [id number] [place] [address] May, [facility] [place] [facility] [address] [id number] [place] [address] Mar, [facility] [place] [facility] [address] [id number] [place] [address] Mar, [facility] [place] [facility] [address] [id number] [place] [address] Mar, [facility] [place] [facility] [address] [id number] [place] [address] Feb, [facility] [place] [facility] [address] [id number] [place] [address] Feb, [facility] [place] [facility] [address] [id number] [place] [address] Feb, [facility] [place] [facility] [address] [id number] [place] [address] Feb, [facility] [place] [facility] [address] [id number] [place] [address] Jan, [facility] [place] [facility] [address] [id number] [place] [address] Jan, [facility] [place] [facility] [address] [id number] [place] [address] Jan, [facility] [address] [id number] [place] [address] December, [facility] [place] [facility] [address] [id number] [place] [address] Nov, [facility] [place] [facility] [address] [id number] [place] [address] Oct, [facility] [place] [facility] [address] [id number] [place] [address] Oct, [facility] [place] [facility] [address] [id number] [place] [address] Oct, [facility] [place] [facility] [address] [id number] [place] [address] Oct, [facility] [place] [facility] [address] [id number] [place] [address] Aug, [facility] [place] [facility] [address] [id number] [place] [address] Aug, [facility] [place] [facility] [address] [id number] [place] [address] Aug, [facility] [place] [facility] [address] [id number] [place] [address] Aug, [facility] [place] [facility] [address] [id number] [place] [address] Aug, [facility] [place] [facility] [address] [id number] [address] Aug, [facility] [place] [facility] [address] [id number] [place] [address] Aug, [facility] [place] [facility] [address] [id number] [place] [address] Aug, [facility] [place] [facility] [address] [id number] [place] [address] Jul, [facility] [place] [facility] [address] [id number] [place] [address] 29 Jun, 2011 [facility] [address] [id number] [place] [address] 29 Jun, 2011 [facility] [place] [facility] [address] [id number] [place] [address] 31 Jul, 2010 [facility] [place] [facility] [address] [id number] [place] [address] 22 Jul, 2010 [facility] [place] [facility] [address] [id number] [place] [address] 22 Jul, 2010 [facility] [place] [facility] [address] [id number] [place] [address] 14 Jul, 2010 [facility] [place] [facility] [address] [id number] [place] [address] 14 Jul, 2010 [facility] [place] [facility] [address] [id number] [place] [address] 24 Jun, 2010 [facility] [place] [facility] [address] [id number] [place] [address] May, [facility] [place] [facility] [address] [id number] [place] [address] Mar, [facility] [place] [facility] [address] [facility] [id number] [place] [address] Oct, [facility] [place] [facility] [address] [id number] [place] [address] Aug, [facility] [place] [facility] [address] [id number] [place] [address] 15 Jul, 2009 [facility] [place] [facility] [address] [id number] [place] [address] Jul, [facility] [place] [facility] [address] [id number] [place] [address] Jun, [facility] [place] [facility] [address] [facility] [id number] [place] [address] Jun, [facility] [place] [facility] [address] [facility] [id number] [address] May, [facility] [address] [id number] [address] May, [facility] [address] [facility] [id number] [address] Mar, [facility] [address] [facility] [id number] [address] Mar, [facility] [address] [facility] [id number] [address] Oct, IMMUNIZATIONS No Known Immunizations SOCIAL HISTORY Never Assessed REASON FOR VISIT [facility] PLAN OF CARE VITAL SIGNS MEDICATIONS Unknown [...] disc replacement L1- L5 - Dr Muhammad ([place]) Surgical History appendectomy 1983 Surgical History hysterectomy 1993 Surgical History dilatation and curettage Surgical History heart cath- Dr Shaw [address] Solano bowel and intestines sep[address] Surgical [address] solano removed skin tag and cyst 2018 Hospitalization History Hospitalization for surgery only
--- OUTSIDE RECORDS SUMMARY | 2019-01-03 13:52 | XMS REPORT ---
Author Author Migration, Doctor Organization [facility] Address Unknown Phone Unavailable Care Team Providers Care Saxophone Teacher Name Role Phone Migration, Doctor Unavailable Unavailable PROBLEMS Type Condition ICD9-CM Code ODR49-TH Code Onset Dates Condition Status SNOMED Code Problem Prediabetes 790.29 Active 4732369 Problem Major depressive disorder, recurrent episode, moderate F33.1 Active 384743568 Problem Mixed hyperlipidemia E78.2 Active 968062806 Problem PTSD (post-traumatic stress disorder) F43.10 Active 11013394 Problem Tobacco use Z72.0 Active 768649910 Problem Alcohol use disorder, mild, 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 Active 63973709 Problem Cigarette nicotine dependence without complication F17.210 Active 42036573 Problem Cannabis abuse F12.10 Active 23080935 Problem Acute pain of left shoulder M25.512 Active 19358167 Problem Generalized anxiety disorder F41.1 Active 98231113 Problem Opioid use disorder, moderate, in sustained remission F11.21 Active 26282863 Problem Methamphetamine use disorder, severe, 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 Active 20114817 Problem Cocaine use disorder, moderate, in sustained remission F14.21 Active 75793447 Problem GERD with esophagitis K21.0 Active 000489854 ALLERGIES No Information ENCOUNTERS Encounter Location Date Diagnosis [place] [id number] [place] [address] December, [place] [id number] [place] [address] 15 Nov, 2018 Major depressive disorder, recurrent episode, moderate F33.1 ; Cannabis abuse F12.10 ; Generalized anxiety disorder F41.1 ; Methamphetamine use disorder, severe, 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 ; Alcohol use disorder, mild, 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 ; PTSD (post-traumatic stress disorder) F43.10 and Cocaine use disorder, moderate, in sustained remission F14.21 [place] [id number] [place] [address] Oct, Major depressive disorder, recurrent episode, moderate F33.1 ; Cannabis abuse F12.10 ; Generalized anxiety disorder F41.1 ; Methamphetamine use disorder, severe, 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 [id number] [place] [address] [id number] Aug, [facility] [place] [id number] [place] [address] Jul, Dysuria R30.0 [facility] [place] [id number] [place] [address] Jul, Major depressive disorder, recurrent episode, moderate F33.1 [facility] [place] [id number] [place] [address] Jun, Major depressive disorder, recurrent episode, moderate F33.1 [facility] [place] [id number] [place] [address] Jun, Major depressive disorder, recurrent episode, moderate F33.1 [facility] [place] [id number] [place] [address] Jun, Acute pain of left shoulder M25.512 and Cigarette nicotine dependence without complication F17.210 [facility] [place] [id number] [place] [address] May, [facility] [place] [address] [address] May, Cocaine use disorder, moderate, in sustained remission F14.21 [facility] [place] [id number] [place] [address] May, [facility] [address] [place] [address] 12 May, [address] [facility] [id number] [place] [address] [id number] 09 May, 2018 Dental examination Z01.20 and Caries K02.9 [facility] [place] [id number] [place] [address] May, Common wart B07.8 [facility] [place] [id number] [place] [address] May, [facility] [place] [id number] [place] [address] 27 Apr, 2018 Cocaine use disorder, moderate, in sustained remission F14.21 [place] [id number] [place] [address] 14 Apr, 2018 [facility] [id number] [place] [address] [id number] 13 Apr, [address] [facility] [id number] [place] [address] [id number] 10 Mar, 2018 Encounter for dental exam and cleaning w/o abnormal findings Z01.20 [facility] [place] [id number] [place] [address] Mar, [facility] [place] [id number] [place] [address] Feb, Cocaine use disorder, moderate, in sustained [...] [place] [address] [address] Jan, Cocaine use disorder, moderate, in sustained remission F14.21 [facility] [place] [id number] [address] Jan, Cocaine use disorder, moderate, in sustained [...] [place] [address] [place] [address] Jan, Dysuria R30.0 and GERD with esophagitis K21.0 [place] [id number] [place] [address] December, Major depressive disorder, recurrent episode, moderate F33.1 [place] [id number] [place] [address] December, [facility] [place] [address] [place] [address] December, Major depressive disorder, recurrent episode, moderate [...] [place] [id number] [place] [address] Nov, [facility] [address] [id number] [address] Nov, [facility] [place] [address] [address] 04 Apr, 2018 Wellness examination Z00.00 ; Encounter for immunization Z23 ; Screening for osteoporosis Z13.820 ; Screening for breast cancer Z12.31 and Left breast lump N63.20 [facility] [id number] [place] [address] [id number] Oct, Dental examination Z01.20 [facility] [place] [id number] [place] [address] Oct, [facility] [place] [address] [address] Oct, [facility] [place] [id number] [place] [address] 16 Sep, 2017 [facility] [place] [id number] [place] [address] 15 Sep, 2017 [facility] [place] [id number] [place] [address] 14 Sep, 2017 Left otitis media with effusion H65.92 ; Acute suppurative otitis media of right ear without spontaneous rupture of tympanic membrane, recurrence not specified H66.001 ; Dizziness R42 and Fatigue 780.79 [facility] [place] [id number] [place] [address] Aug, Major depressive disorder, recurrent episode, moderate F33.1 ; Generalized anxiety disorder F41.1 ; Cannabis abuse F12.10 ; PTSD (post-traumatic stress disorder) F43.10 ; Methamphetamine use disorder, severe, 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 ; Cocaine use disorder, moderate, in sustained remission F14.21 ; Opioid use disorder, moderate, in sustained remission F11.21 ; Alcohol use disorder, mild, 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 and Tobacco use Z72.0 [facility] [id number] [place] [address] Aug, Ingrown right big toenail L60.0 [facility] [place] [id number] [place] [address] Aug, [facility] [place] [address] [place] [address] 15 Aug, 2017 PTSD (post-traumatic stress disorder) F43.10 [facility] [place] [address] [place] [address] Aug, Major depressive disorder, recurrent episode, moderate F33.1 ; Generalized anxiety disorder F41.1 and Cannabis abuse F12.10 [facility] [place] [id number] [place] [address] Jul, [facility] [place] [id number] [place] [address] Jul, [facility] [place] [id number] [place] [address] Jul, [facility] [place] [address] [place] [address] Jul, Major depressive disorder, recurrent episode, moderate F33.1 ; Generalized anxiety disorder F41.1 and Cannabis abuse F12.10 [facility] [place] [address] [address] Jul, [facility] [place] [id number] [place] [address] Jul, [facility] [place] [address] [address] Jul, Hyperlipidemia 272.4 [facility] [place] [id number] [place] [address] Jul, PTSD (post-traumatic stress disorder) F43.10 [facility] [place] [address] [address] 14 Jul, 2017 Tobacco use Z72.0 ; [...] anxiety disorder F41.1 and Cannabis abuse F12.10 [place] [id number] [place] [address] Jul, [facility] [place] [id number] [place] [address] Jul, Dysuria R30.0 and Mixed hyperlipidemia E78.2 [place] [id number] [place] [address] Jun, Major depressive disorder, recurrent episode, moderate F33.1 ; Generalized anxiety disorder F41.1 and Cannabis abuse F12.10 [place] [id number] [place] [address] Jun, [place] [id number] [place] [address] Jun, Generalized anxiety disorder F41.1 ; Major depressive disorder, recurrent episode, moderate F33.1 ; PTSD (post-traumatic stress disorder) F43.10 ; Opioid use disorder, moderate, in sustained remission F11.21 ; Cannabis abuse F12.10 ; Alcohol use disorder, mild, 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 ; Methamphetamine use disorder, severe, 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 ; Cocaine use disorder, moderate, in sustained remission F14.21 and Tobacco use Z72.0 [place] [address] [address] Jun, Major depressive disorder, recurrent episode, moderate F33.1 ; Generalized anxiety disorder F41.1 and Cannabis abuse F12.10 [place] [address] [address] Jun, [place] [id number] [place] [address] Jun, [place] [id number] [place] [address] Jun, Major depressive disorder, recurrent episode, moderate F33.1 ; Generalized anxiety disorder F41.1 [address] Cann[address] abuse F12.10 [facility] [id number] [id number] Mar, Dental examination Z01.20 [facility] [id number] [place] [address] [id number] Feb, Dental examination Z01.20 [facility] [place] [id number] [place] [address] Mar, [facility] [place] [id number] [place] [address] Mar, [facility] [place] [id number] [place] [address] Feb, Hyperlipidemia 272.4 and Prediabetes 790.29 [facility] [place] [id number] [place] [address] Feb, Fatigue 780.79 and Hyperlipidemia 272.4 [facility] [place] [id number] [place] [address] Feb, Lumbago 724.2 ; Hyperlipidemia 272.4 ; Insomnia 780.52 and Fatigue 780.79 [facility] [place] [id number] [place] [address] Nov, [facility] [place] [id number] [place] [address] Nov, [facility] [place] [id number] [place] [address] Mar, [facility] [place] [id number] [place] [address] Mar, [facility] [place] [id number] [place] [address] Jan, [facility] [place] [id number] [place] [address] Jan, [facility] [place] [id number] [place] [address] December, [facility] [place] [facility] [address] [id number] [place] [address] December, [facility] [place] [facility] [address] [id number] [place] [address] Nov, [facility] [place] [facility] [address] [id number] [place] [address] Nov, [facility] [place] [facility] [address] [id number] [place] [address] Nov, [facility] [place] [facility] [address] [id number] [place] [address] Nov, [facility] [place] [facility] [address] [id number] [place] [address] Nov, [facility] [place] [facility] [address] [id number] [place] [address] Nov, [facility] [place] [facility] [address] [id number] [place] [address] Oct, [facility] [place] [facility] [address] [id number] [place] [address] 31 Oct, 2013 [facility] [place] [facility] [address] [id number] [place] [address] Oct, [facility] [place] [facility] [address] [id number] [place] [address] 20 Oct, 2013 [facility] [place] [facility] [address] [id number] [place] [address] 19 Oct, 2013 [facility] [place] [facility] [address] [id number] [place] [address] Oct, [facility] [place] [facility] [address] [id number] [place] [address] Oct, [facility] [place] [facility] [address] [id number] [place] [address] Oct, [facility] [place] [facility] [address] [id number] [place] [address] Oct, [facility] [place] [facility] [address] [id number] [place] [address] Oct, [facility] [place] [facility] [address] [id number] [place] [address] Oct, [facility] [place] [facility] [address] [facility] [id number] [place] [address] Oct, [facility] [place] [facility] [address] [id number] [place] [address] Oct, [facility] [place] [facility] [address] [id number] [place] [address] 24 Sep, 2013 [facility] [place] [facility] [address] [facility] [id number] [place] [address] 24 Sep, 2013 [facility] [place] [facility] [address] [facility] [id number] [place] [address] 20 Sep, 2013 [facility] [place] [facility] [address] [facility] [id number] [place] [address] 20 Sep, 2013 [facility] [place] [facility] [address] [facility] [id number] [place] [address] 20 Sep, 2013 [facility] [place] [facility] [address] [facility] [id number] [place] [address] 20 Sep, 2013 [facility] [place] [facility] [address] [facility] [id number] [place] [address] 18 Sep, 2013 [facility] [place] [facility] [address] [facility] [id number] [place] [address] 18 Sep, 2013 [facility] [place] [facility] [address] [facility] [id number] [place] [address] 14 Sep, 2013 [facility] [place] [facility] [address] [facility] [id number] [place] [address] 14 Sep, 2013 [facility] [place] [facility] [address] [facility] [id number] [place] [address] 14 Sep, 2013 [facility] [place] [facility] [address] [id number] [place] [address] 14 Sep, 2013 [facility] [place] [facility] [address] [id number] [place] [address] 14 Sep, 2013 [facility] [place] [facility] [address] [id number] [place] [address] 14 Sep, 2013 [facility] [place] [facility] [address] [id number] [place] [address] Sep, [facility] [place] [facility] [address] [id number] [place] [address] Sep, [facility] [place] [facility] [address] [id number] [place] [address] Sep, [facility] [place] [facility] [address] [id number] [place] [address] Sep, [facility] [place] [facility] [address] [id number] [place] [address] Sep, [facility] [place] [facility] [address] [id number] [place] [address] Sep, [facility] [place] [facility] [address] [id number] [place] [address] Aug, [facility] [place] [facility] [address] [id number] [place] [address] Aug, [facility] [place] [facility] [address] [id number] [place] [address] Aug, [facility] [place] [facility] [address] [id number] [place] [address] Aug, [facility] [place] [facility] [address] [id number] [place] [address] Aug, [facility] [place] [facility] [address] [id number] [place] [address] Jul, [facility] [place] [facility] [address] [id number] [place] [address] Jul, [facility] [address] [id number] [place] [address] Jul, [facility] [place] [facility] [address] [id number] [place] [address] Jul, [facility] [address] [id number] [place] [address] Jul, [facility] [place] [facility] [address] [id number] [place] [address] Jul, [facility] [address] [id number] [place] [address] Jul, [facility] [address] [id number] [place] [address] Jul, [facility] [place] [facility] [address] [id number] [place] [address] Jul, [facility] [address] [id number] [place] [address] Jun, [facility] [place] [facility] [address] [id number] [place] [address] Jun, [facility] [address] [id number] [place] [address] Jun, [facility] [place] [facility] [address] [id number] [place] [address] Jun, [facility] [place] [facility] [address] [id number] [place] [address] Jun, [facility] [place] [facility] [address] [id number] [place] [address] Jun, [facility] [place] [facility] [address] [id number] [place] [address] Jun, [facility] [place] [facility] [address] [id number] [place] [address] Jun, [facility] [place] [facility] [address] [id number] [place] [address] Jun, [facility] [place] [facility] [address] [id number] [place] [address] Jun, [facility] [place] [facility] [address] [id number] [place] [address] May, [facility] [place] [facility] [address] [id number] [place] [address] May, [facility] [place] [facility] [address] [id number] [place] [address] May, [facility] [place] [facility] [address] [id number] [place] [address] May, [facility] [place] [facility] [address] [id number] [place] [address] May, [facility] [place] [facility] [address] [id number] [place] [address] May, [facility] [place] [facility] [address] [id number] [place] [address] May, [facility] [place] [facility] [address] [id number] [address] May, [facility] [place] [facility] [address] [id number] [place] [address] May, [facility] [place] [facility] [address] [id number] [place] [address] 26 Apr, 2013 [facility] [place] [facility] [address] [id number] [place] [address] 16 Apr, 2013 [facility] [place] [facility] [address] [id number] [address] 12 Apr, 2013 [facility] [place] [facility] [address] [id number] [place] [address] 06 Apr, 2013 [facility] [place] [facility] [address] [id number] [place] [address] Mar, [facility] [address] [id number] [place] [address] Mar, [facility] [place] [facility] [address] [id number] [place] [address] Mar, [facility] [place] [facility] [address] [id number] [place] [address] Mar, [facility] [place] [facility] [address] [id number] [place] [address] Mar, [facility] [place] [facility] [address] [id number] [place] [address] Mar, [facility] [place] [facility] [address] [id number] [place] [address] Mar, [facility] [place] [facility] [address] [id number] [place] [address] Feb, [facility] [place] [facility] [address] [id number] [place] [address] Feb, [facility] [place] [facility] [address] [id number] [place] [address] Feb, [facility] [place] [facility] [address] [id number] [place] [address] Feb, [facility] [place] [facility] [address] [id number] [place] [address] Feb, [facility] [place] [facility] [address] [id number] [place] [address] Feb, [facility] [place] [facility] [address] [id number] [place] [address] Feb, [facility] [place] [facility] [address] [id number] [place] [address] Feb, [facility] [place] [facility] [address] [id number] [place] [address] Feb, [facility] [place] [facility] [address] [id number] [place] [address] Feb, [facility] [address] [id number] [place] [address] Feb, [facility] [place] [facility] [address] [id number] [place] [address] Jan, [facility] [place] [facility] [address] [id number] [place] [address] Jan, [facility] [address] [id number] [place] [address] December, [facility] [place] [facility] [address] [id number] [place] [address] December, [facility] [address] [id number] [place] [address] Nov, [facility] [address] [id number] [place] [address] Nov, [facility] [address] [id number] [place] [address] Oct, [facility] [address] [id number] [place] [address] Oct, [facility] [place] [facility] [address] [id number] [place] [address] Oct, [facility] [place] [facility] [address] [id number] [place] [address] Oct, [facility] [place] [facility] [address] [id number] [place] [address] Sep, [facility] [place] [facility] [address] [id number] [place] [address] Sep, [facility] [place] [facility] [address] [id number] [place] [address] Sep, [facility] [place] [facility] [address] [id number] [address] Sep, [facility] [address] [id number] [place] [address] Aug, [facility] [place] [facility] [address] [id number] [place] [address] Aug, [facility] [place] [facility] [address] [id number] [place] [address] Jul, [facility] [place] [facility] [address] [id number] [place] [address] Jul, [facility] [place] [facility] [address] [id number] [place] [address] Jul, [facility] [place] [facility] [address] [id number] [place] [address] Jul, [facility] [place] [facility] [address] [id number] [place] [address] Jul, [facility] [place] [facility] [address] [id number] [place] [address] Jul, [facility] [place] [facility] [address] [id number] [place] [address] Jun, [facility] [place] [facility] [address] [id number] [place] [address] Jun, [facility] [place] [facility] [address] [id number] [place] [address] Jun, [facility] [place] [facility] [address] [id number] [place] [address] Jun, [facility] [place] [facility] [address] [id number] [address] Jun, [facility] [place] [facility] [address] [id number] [place] [address] May, [facility] [place] [facility] [address] [id number] [place] [address] May, [facility] [place] [facility] [address] [id number] [place] [address] May, [facility] [place] [facility] [address] [id number] [place] [address] May, [facility] [place] [facility] [address] [id number] [place] [address] May, [facility] [place] [facility] [address] [id number] [place] [address] May, [facility] [place] [facility] [address] [id number] [place] [address] May, [facility] [place] [facility] [address] [id number] [place] [address] May, [facility] [place] [facility] [address] [id number] [place] [address] Mar, [facility] [place] [facility] [address] [id number] [place] [address] Mar, [facility] [place] [facility] [address] [id number] [place] [address] Mar, [facility] [place] [facility] [address] [id number] [place] [address] Feb, [facility] [place] [facility] [address] [id number] [place] [address] Feb, [facility] [place] [facility] [address] [id number] [place] [address] Feb, [facility] [place] [facility] [address] [id number] [place] [address] Feb, [facility] [place] [facility] [address] [id number] [place] [address] Jan, [facility] [place] [facility] [address] [id number] [place] [address] Jan, [facility] [place] [facility] [address] [id number] [place] [address] Jan, [facility] [address] [id number] [place] [address] December, [facility] [place] [facility] [address] [id number] [place] [address] Nov, [facility] [place] [facility] [address] [id number] [place] [address] Oct, [facility] [place] [facility] [address] [id number] [place] [address] Oct, [facility] [place] [facility] [address] [id number] [place] [address] Oct, [facility] [place] [facility] [address] [id number] [place] [address] Oct, [facility] [place] [facility] [address] [id number] [place] [address] Aug, [facility] [place] [facility] [address] [id number] [place] [address] Aug, [facility] [place] [facility] [address] [id number] [place] [address] Aug, [facility] [place] [facility] [address] [id number] [place] [address] Aug, [facility] [place] [facility] [address] [id number] [place] [address] Aug, [facility] [place] [facility] [address] [id number] [place] [address] Aug, [facility] [place] [facility] [address] [id number] [place] [address] Aug, [facility] [place] [facility] [address] [id number] [place] [address] Aug, [facility] [place] [facility] [address] [id number] [place] [address] Jul, [facility] [place] [facility] [address] [id number] [place] [address] 29 Jun, 2011 [facility] [address] [id number] [place] [address] 29 Jun, 2011 [facility] [place] [facility] [address] [id number] [place] [address] 31 Jul, 2010 [facility] [place] [facility] [address] [id number] [place] [address] 22 Jul, 2010 [facility] [place] [facility] [address] [id number] [place] [address] 22 Jul, 2010 [facility] [place] [facility] [address] [id number] [place] [address] 14 Jul, 2010 [facility] [place] [facility] [address] [id number] [place] [address] 14 Jul, 2010 [facility] [place] [facility] [address] [id number] [place] [address] 24 Jun, 2010 [facility] [place] [facility] [address] [id number] [place] [address] May, [facility] [place] [facility] [address] [id number] [place] [address] Mar, [facility] [place] [facility] [address] [facility] [id number] [place] [address] Oct, [facility] [place] [facility] [address] [id number] [place] [address] Aug, [facility] [place] [facility] [address] [id number] [place] [address] 15 Jul, 2009 [facility] [place] [facility] [address] [id number] [place] [address] Jul, [facility] [place] [facility] [address] [id number] [place] [address] Jun, [facility] [place] [facility] [address] [facility] [id number] [place] [address] Jun, [facility] [place] [facility] [address] [facility] [id number] [place] [address] May, [facility] [place] [address] [id number] [place] [address] May, [facility] [place] [address] [facility] [id number] [place] [address] Mar, [facility] [place] [address] [facility] [id number] [place] [address] Mar, [facility] [place] [address] [facility] [id number] [place] [address] Oct, IMMUNIZATIONS No Known Immunizations SOCIAL HISTORY Never Assessed REASON FOR VISIT [facility] PLAN OF CARE VITAL SIGNS MEDICATIONS Unknown [...] disc replacement L1- L5 - Dr Muhammad ([place]) Surgical History appendectomy 1983 Surgical History hysterectomy 1993 Surgical History dilatation and curettage Surgical History heart cath- Dr Shaw [address] Solano bowel and intestines sep2015 Surgical History Dr solano removed skin tag and cyst 2018 Hospitalization History Hospitalization for surgery only
--- OUTSIDE RECORDS SUMMARY | 2019-01-03 13:52 | XMS REPORT ---
Author Author Migration, Doctor Organization [facility] Address Unknown Phone Unavailable Care Team Providers Care Emergency Telecommunications Dispatcher Name Role Phone Migration, Doctor Unavailable Unavailable PROBLEMS Type Condition ICD9-CM Code AWP21-IG Code Onset Dates Condition Status SNOMED Code Problem Prediabetes 790.29 Active 7619670 Problem Major depressive disorder, recurrent episode, moderate F33.1 Active 635560857 Problem Mixed hyperlipidemia E78.2 Active 044834605 Problem PTSD (post-traumatic stress disorder) F43.10 Active 73668266 Problem Tobacco use Z72.0 Active 457795453 Problem Alcohol use disorder, mild, 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 Active 41289470 Problem Cigarette nicotine dependence without complication F17.210 Active 55613918 Problem Cannabis abuse F12.10 Active 27919858 Problem Acute pain of left shoulder M25.512 Active 55156237 Problem Generalized anxiety disorder F41.1 Active 11541593 Problem Opioid use disorder, moderate, in sustained remission F11.21 Active 51743614 Problem Methamphetamine use disorder, severe, 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 Active 60209924 Problem Cocaine use disorder, moderate, in sustained remission F14.21 Active 13698838 Problem GERD with esophagitis K21.0 Active 569792849 ALLERGIES No Information ENCOUNTERS Encounter Location Date Diagnosis [place] [id number] [place] [address] December, [place] [id number] [place] [address] 15 Nov, 2018 Major depressive disorder, recurrent episode, moderate F33.1 ; Cannabis abuse F12.10 ; Generalized anxiety disorder F41.1 ; Methamphetamine use disorder, severe, 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 ; Alcohol use disorder, mild, 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 ; PTSD (post-traumatic stress disorder) F43.10 and Cocaine use disorder, moderate, in sustained remission F14.21 [place] [id number] [place] [address] Oct, Major depressive disorder, recurrent episode, moderate F33.1 ; Cannabis abuse F12.10 ; Generalized anxiety disorder F41.1 ; Methamphetamine use disorder, severe, 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 ; Alcohol use disorder, mild, 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 ; PTSD (post-traumatic stress disorder) F43.10 and Cocaine use disorder, moderate, in sustained remission F14.21 [facility] [id number] [place] [address] Sep, Major depressive disorder, recurrent episode, moderate F33.1 [facility] [id number] [place] [id number] Aug, [facility] [id number] [place] [address] Jul, Dysuria R30.0 [facility] [id number] [place] [address] Jul, Major depressive disorder, recurrent episode, moderate F33.1 [facility] [id number] [place] [address] Jun, Major depressive disorder, recurrent episode, moderate F33.1 [facility] [id number] [place] [address] Jun, Major depressive disorder, recurrent episode, moderate F33.1 [facility] [id number] [place] [address] Jun, Acute pain of left shoulder M25.512 and Cigarette nicotine dependence without complication F17.210 [facility] [id number] [place] [address] May, [facility] [address] [address] May, Cocaine use disorder, moderate, in sustained remission F14.21 [facility] [id number] [place] [address] May, [facility] [address] [place] [address] 12 May, 2018 Dental examination Z01.20 [facility] [id number] [place] [id number] May, 2018 Dental examination Z01.20 and Caries K02.9 [facility] [id number] [place] [address] May, Common wart B07.8 [facility] [id number] [place] [address] May, [facility] [id number] [place] [address] 27 Apr, 2018 Cocaine use disorder, moderate, in sustained remission F14.21 [place] [id number] [place] [address] 14 Apr, 2018 [facility] [id number] [place] [address] [id number] 13 Apr, 2018 Dental examination Z01.20 [facility] [id number] [place] [address] [id number] 10 Mar, 2018 Encounter for dental exam and cleaning w/o abnormal findings Z01.20 [facility] [id number] [place] [address] Mar, [facility] [id number] [place] [address] Feb, Cocaine use disorder, moderate, in sustained remission F14.21 ; Opioid use disorder, moderate, in sustained remission F11.21 ; Alcohol use disorder, mild, 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 ; Tobacco use Z72.0 ; PTSD (post-traumatic stress disorder) F43.10 ; Methamphetamine use disorder, severe, 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 ; Generalized anxiety disorder F41.1 ; Cannabis abuse F12.10 and Major depressive disorder, recurrent episode, moderate F33.1 [facility] [address] [address] Jan, Cocaine use disorder, moderate, in sustained remission F14.21 [facility] [id number] [address] Jan, Cocaine use disorder, moderate, in sustained remission F14.21 ; Opioid use disorder, moderate, in sustained remission F11.21 ; Alcohol use disorder, mild, 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 ; Tobacco use Z72.0 ; PTSD (post-traumatic stress disorder) F43.10 ; Methamphetamine use disorder, severe, 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 ; Generalized anxiety disorder F41.1 ; Cannabis abuse F12.10 and Major depressive disorder, recurrent episode, moderate F33.1 [facility] [id number] [place] [address] Jan, Dysuria R30.0 and GERD with esophagitis K21.0 [place] [id number] [place] [address] December, Major depressive disorder, recurrent episode, moderate F33.1 [place] [id number] [place] [address] December, [facility] [id number] [place] [address] December, Major depressive disorder, recurrent episode, moderate F33.1 ; Generalized anxiety disorder F41.1 ; Cannabis abuse F12.10 ; PTSD (post-traumatic stress disorder) F43.10 ; Methamphetamine use disorder, severe, 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 ; Cocaine use disorder, moderate, in sustained remission F14.21 ; Opioid use disorder, moderate, in sustained remission F11.21 ; Alcohol use disorder, mild, 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 and Tobacco use Z72.0 [facility] [address] [place] [address] Nov, [facility] [address] [id number] [address] Nov, [facility] [address] [address] 04 Apr, 2018 Wellness examination Z00.00 ; Encounter for immunization Z23 ; Screening for osteoporosis Z13.820 ; Screening for breast cancer Z12.31 and Left breast lump N63.20 [facility] [id number] [place] [address] [id number] Oct, Dental examination Z01.20 [facility] [id number] [place] [address] Oct, [facility] [address] [address] Oct, [facility] [id number] [place] [address] 16 Sep, 2017 [facility] [id number] [place] [address] 15 Sep, 2017 [facility] [id number] [place] [address] 14 Sep, 2017 Left otitis media with effusion H65.92 ; Acute suppurative otitis media of right ear without spontaneous rupture of tympanic membrane, recurrence not specified H66.001 ; Dizziness R42 and Fatigue 780.79 [facility] [id number] [place] [address] Aug, Major depressive disorder, recurrent episode, moderate [...] [facility] [id number] [place] [address] Aug, Ingrown right big toenail L60.0 [facility] [id number] [place] [address] Aug, [facility] [address] [place] [address] 15 Aug, 2017 PTSD (post-traumatic stress disorder) F43.10 [facility] [id number] [place] [address] Aug, Major depressive disorder, recurrent episode, moderate F33.1 ; Generalized anxiety disorder F41.1 and Cannabis abuse F12.10 [facility] [address] [place] [address] Jul, [facility] [id number] [place] [address] Jul, [facility] [id number] [place] [address] Jul, [facility] [address] [place] [address] Jul, Major depressive disorder, recurrent episode, moderate F33.1 ; Generalized anxiety disorder F41.1 and Cannabis abuse F12.10 [facility] [address] [address] Jul, [facility] [id number] [place] [address] Jul, [facility] [address] [address] Jul, Hyperlipidemia 272.4 [facility] [id number] [place] [address] Jul, PTSD (post-traumatic stress disorder) F43.10 [facility] [address] [address] 14 Jul, 2017 Tobacco use Z72.0 ; [...] anxiety disorder F41.1 and Cannabis abuse F12.10 [place] [id number] [place] [address] Jul, [facility] [id number] [place] [address] Jul, Dysuria R30.0 and Mixed hyperlipidemia E78.2 [place] [id number] [place] [address] Jun, Major depressive disorder, recurrent episode, moderate F33.1 ; Generalized anxiety disorder F41.1 and Cannabis abuse F12.10 [place] [id number] [place] [address] Jun, [place] [id number] [place] [address] Jun, Generalized anxiety disorder F41.1 ; Major depressive disorder, recurrent episode, moderate F33.1 ; PTSD (post-traumatic stress disorder) F43.10 ; Opioid use disorder, moderate, in sustained remission F11.21 ; Cannabis abuse F12.10 ; Alcohol use disorder, mild, 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 ; Methamphetamine use disorder, severe, 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 ; Cocaine use disorder, moderate, in sustained remission F14.21 and Tobacco use Z72.0 [place] [address] [address] Jun, Major depressive disorder, recurrent episode, moderate F33.1 ; Generalized anxiety disorder F41.1 and Cannabis abuse F12.10 [place] [address] [address] Jun, [place] [id number] [place] [address] Jun, [place] [address] [place] [address] Jun, Major depressive disorder, recurrent episode, moderate F33.1 ; Generalized anxiety disorder F41.1 and Cannabis abuse F12.10 [facility] [id number] [id number] Mar, Dental examination Z01.20 [facility] [id number] [place] [address] [id number] Feb, Dental examination Z01.20 [facility] [id number] [place] [address] Mar, [facility] [id number] [place] [address] Mar, [facility] [id number] [place] [address] Feb, Hyperlipidemia 272.4 and Prediabetes 790.29 [facility] [id number] [place] [address] Feb, Fatigue 780.79 and Hyperlipidemia 272.4 [facility] [id number] [place] [address] Feb, Lumbago 724.2 ; Hyperlipidemia 272.4 ; Insomnia 780.52 and Fatigue 780.79 [facility] [id number] [place] [address] Nov, [facility] [id number] [place] [address] Nov, [facility] [id number] [place] [address] Mar, [facility] [id number] [place] [address] Mar, [facility] [id number] [place] [address] Jan, [facility] [id number] [place] [address] Jan, [facility] [id number] [place] [address] December, [facility] [place] [facility] [address] [id number] [place] [address] December, [facility] [place] [facility] [address] [id number] [place] [address] Nov, [facility] [place] [facility] [address] [id number] [place] [address] Nov, [facility] [place] [facility] [address] [id number] [place] [address] Nov, [facility] [place] [facility] [address] [id number] [place] [address] Nov, [facility] [place] [facility] [address] [id number] [place] [address] Nov, [facility] [place] [facility] [address] [id number] [place] [address] Nov, [facility] [place] [facility] [address] [id number] [place] [address] Oct, [facility] [place] [facility] [address] [id number] [place] [address] 31 Oct, 2013 [facility] [place] [facility] [address] [id number] [place] [address] Oct, [facility] [place] [facility] [address] [id number] [place] [address] 20 Oct, 2013 [facility] [place] [facility] [address] [id number] [place] [address] 19 Oct, 2013 [facility] [place] [facility] [address] [id number] [place] [address] Oct, [facility] [place] [facility] [address] [id number] [place] [address] Oct, [facility] [place] [facility] [address] [id number] [place] [address] Oct, [facility] [place] [facility] [address] [id number] [place] [address] Oct, [facility] [place] [facility] [address] [id number] [place] [address] Oct, [facility] [place] [facility] [address] [id number] [place] [address] Oct, [facility] [place] [facility] [address] [facility] [id number] [place] [address] Oct, [facility] [place] [facility] [address] [id number] [place] [address] Oct, [facility] [place] [facility] [address] [id number] [place] [address] 24 Sep, 2013 [facility] [place] [facility] [address] [facility] [id number] [place] [address] 24 Sep, 2013 [facility] [place] [facility] [address] [facility] [id number] [place] [address] 20 Sep, 2013 [facility] [place] [facility] [address] [facility] [id number] [place] [address] 20 Sep, 2013 [facility] [place] [facility] [address] [facility] [id number] [place] [address] 20 Sep, 2013 [facility] [place] [facility] [address] [facility] [id number] [place] [address] 20 Sep, 2013 [facility] [place] [facility] [address] [facility] [id number] [place] [address] 18 Sep, 2013 [facility] [place] [facility] [address] [facility] [id number] [place] [address] 18 Sep, 2013 [facility] [place] [facility] [address] [facility] [id number] [place] [address] 14 Sep, 2013 [facility] [place] [facility] [address] [facility] [id number] [place] [address] 14 Sep, 2013 [facility] [place] [facility] [address] [facility] [id number] [place] [address] 14 Sep, 2013 [facility] [place] [facility] [address] [id number] [place] [address] 14 Sep, 2013 [facility] [place] [facility] [address] [id number] [place] [address] 14 Sep, 2013 [facility] [place] [facility] [address] [id number] [place] [address] 14 Sep, 2013 [facility] [place] [facility] [address] [id number] [place] [address] Sep, [facility] [place] [facility] [address] [id number] [place] [address] Sep, [facility] [place] [facility] [address] [id number] [place] [address] Sep, [facility] [place] [facility] [address] [id number] [place] [address] Sep, [facility] [place] [facility] [address] [id number] [place] [address] Sep, [facility] [place] [facility] [address] [id number] [place] [address] Sep, [facility] [place] [facility] [address] [id number] [place] [address] Aug, [facility] [place] [facility] [address] [id number] [place] [address] Aug, [facility] [place] [facility] [address] [id number] [place] [address] Aug, [facility] [place] [facility] [address] [id number] [place] [address] Aug, [facility] [place] [facility] [address] [id number] [place] [address] Aug, [facility] [place] [facility] [address] [id number] [place] [address] Jul, [facility] [place] [facility] [address] [id number] [place] [address] Jul, [facility] [address] [id number] [place] [address] Jul, [facility] [place] [facility] [address] [id number] [place] [address] Jul, [facility] [address] [id number] [place] [address] Jul, [facility] [place] [facility] [address] [id number] [place] [address] Jul, [facility] [address] [id number] [place] [address] Jul, [facility] [address] [id number] [place] [address] Jul, [facility] [place] [facility] [address] [id number] [place] [address] Jul, [facility] [address] [id number] [place] [address] Jun, [facility] [place] [facility] [address] [id number] [place] [address] Jun, [facility] [address] [id number] [place] [address] Jun, [facility] [place] [facility] [address] [id number] [place] [address] Jun, [facility] [place] [facility] [address] [id number] [place] [address] Jun, [facility] [place] [facility] [address] [id number] [place] [address] Jun, [facility] [place] [facility] [address] [id number] [place] [address] Jun, [facility] [place] [facility] [address] [id number] [place] [address] Jun, [facility] [place] [facility] [address] [id number] [place] [address] Jun, [facility] [place] [facility] [address] [id number] [place] [address] Jun, [facility] [place] [facility] [address] [id number] [place] [address] May, [facility] [place] [facility] [address] [id number] [place] [address] May, [facility] [place] [facility] [address] [id number] [place] [address] May, [facility] [place] [facility] [address] [id number] [place] [address] May, [facility] [place] [facility] [address] [id number] [place] [address] May, [facility] [place] [facility] [address] [id number] [address] May, [facility] [place] [facility] [address] [id number] [place] [address] May, [facility] [place] [facility] [address] [id number] [address] May, [facility] [place] [facility] [address] [id number] [place] [address] May, [facility] [place] [facility] [address] [id number] [place] [address] 26 Apr, 2013 [facility] [place] [facility] [address] [id number] [place] [address] 16 Apr, 2013 [facility] [place] [facility] [address] [id number] [place] [address] 12 Apr, 2013 [facility] [place] [facility] [address] [id number] [place] [address] 06 Apr, 2013 [facility] [place] [facility] [address] [id number] [place] [address] Mar, [facility] [address] [id number] [place] [address] Mar, [facility] [place] [facility] [address] [id number] [place] [address] Mar, [facility] [place] [facility] [address] [id number] [place] [address] Mar, [facility] [place] [facility] [address] [id number] [place] [address] Mar, [facility] [place] [facility] [address] [id number] [place] [address] Mar, [facility] [place] [facility] [address] [id number] [place] [address] Mar, [facility] [place] [facility] [address] [id number] [place] [address] Feb, [facility] [place] [facility] [address] [id number] [place] [address] Feb, [facility] [place] [facility] [address] [id number] [place] [address] Feb, [facility] [place] [facility] [address] [id number] [place] [address] Feb, [facility] [place] [facility] [address] [id number] [place] [address] Feb, [facility] [place] [facility] [address] [id number] [place] [address] Feb, [facility] [place] [facility] [address] [id number] [place] [address] Feb, [facility] [place] [facility] [address] [id number] [place] [address] Feb, [facility] [place] [facility] [address] [id number] [place] [address] Feb, [facility] [place] [facility] [address] [id number] [place] [address] Feb, [facility] [address] [id number] [place] [address] Feb, [facility] [place] [facility] [address] [id number] [place] [address] Jan, [facility] [place] [facility] [address] [id number] [place] [address] Jan, [facility] [address] [id number] [place] [address] December, [facility] [place] [facility] [address] [id number] [place] [address] December, [facility] [address] [id number] [place] [address] Nov, [facility] [address] [id number] [place] [address] Nov, [facility] [address] [id number] [place] [address] Oct, [facility] [address] [id number] [place] [address] Oct, [facility] [place] [facility] [address] [id number] [place] [address] Oct, [facility] [facility] [address] [id number] [place] [address] Oct, [facility] [address] [id number] [place] [address] Sep, [facility] [place] [facility] [address] [id number] [place] [address] Sep, [facility] [address] [id number] [place] [address] Sep, [facility] [place] [facility] [address] [id number] [address] Sep, [facility] [address] [id number] [place] [address] Aug, [facility] [place] [facility] [address] [id number] [place] [address] Aug, [facility] [place] [facility] [address] [id number] [place] [address] Jul, [facility] [place] [facility] [address] [id number] [place] [address] Jul, [facility] [place] [facility] [address] [id number] [place] [address] Jul, [facility] [place] [facility] [address] [id number] [place] [address] Jul, [facility] [place] [facility] [address] [id number] [place] [address] Jul, [facility] [place] [facility] [address] [id number] [place] [address] Jul, [facility] [place] [facility] [address] [id number] [place] [address] Jun, [facility] [place] [facility] [address] [id number] [place] [address] Jun, [facility] [place] [facility] [address] [id number] [address] Jun, [facility] [facility] [address] [id number] [place] [address] Jun, [facility] [place] [facility] [address] [id number] [place] [address] Jun, [facility] [place] [facility] [address] [id number] [place] [address] May, [facility] [place] [facility] [address] [id number] [place] [address] May, [facility] [place] [facility] [address] [id number] [place] [address] May, [facility] [place] [facility] [address] [id number] [place] [address] May, [facility] [place] [facility] [address] [id number] [place] [address] May, [facility] [place] [facility] [address] [id number] [place] [address] May, [facility] [place] [facility] [address] [id number] [place] [address] May, [facility] [place] [facility] [address] [id number] [place] [address] May, [facility] [place] [facility] [address] [id number] [place] [address] Mar, [facility] [place] [facility] [address] [id number] [place] [address] Mar, [facility] [place] [facility] [address] [id number] [place] [address] Mar, [facility] [place] [facility] [address] [id number] [place] [address] Feb, [facility] [place] [facility] [address] [id number] [place] [address] Feb, [facility] [place] [facility] [address] [id number] [place] [address] Feb, [facility] [place] [facility] [address] [id number] [place] [address] Feb, [facility] [place] [facility] [address] [id number] [place] [address] Jan, [facility] [place] [facility] [address] [id number] [place] [address] Jan, [facility] [place] [facility] [address] [id number] [place] [address] Jan, [facility] [address] [id number] [place] [address] December, [facility] [place] [facility] [address] [id number] [place] [address] Nov, [facility] [place] [facility] [address] [id number] [place] [address] Oct, [facility] [place] [facility] [address] [id number] [place] [address] Oct, [facility] [place] [facility] [address] [id number] [place] [address] Oct, [facility] [place] [facility] [address] [id number] [place] [address] Oct, [facility] [place] [facility] [address] [id number] [place] [address] Aug, [facility] [place] [facility] [address] [id number] [place] [address] Aug, [facility] [place] [facility] [address] [id number] [place] [address] Aug, [facility] [place] [facility] [address] [id number] [place] [address] Aug, [facility] [facility] [address] [id number] [place] [address] Aug, [facility] [facility] [address] [id number] [place] [address] Aug, [facility] [place] [facility] [address] [id number] [place] [address] Aug, [facility] [facility] [address] [id number] [place] [address] Aug, [facility] [place] [facility] [address] [id number] [place] [address] Jul, [facility] [facility] [address] [id number] [place] [address] 29 Jun, 2011 [facility] [address] [id number] [place] [address] 29 Jun, 2011 [facility] [facility] [address] [id number] [place] [address] 31 Jul, 2010 [facility] [facility] [address] [id number] [place] [address] 22 Jul, 2010 [facility] [facility] [address] [id number] [place] [address] 22 Jul, 2010 [facility] [facility] [address] [id number] [place] [address] 14 Jul, 2010 [facility] [facility] [address] [id number] [place] [address] 14 Jul, 2010 [facility] [address] [id number] [place] [address] 24 Jun, 2010 [facility] [address] [id number] [place] [address] May, [facility] [address] [id number] [place] [address] Mar, [facility] [address] [facility] [id number] [place] [address] Oct, [facility] [facility] [address] [id number] [place] [address] Aug, [facility] [facility] [address] [id number] [place] [address] 15 Jul, 2009 [facility] [address] [id number] [place] [address] Jul, [facility] [place] [facility] [address] [id number] [place] [address] Jun, [facility] [address] [facility] [id number] [place] [address] Jun, [facility] [facility] [address] [facility] [id number] [place] [address] May, [facility] [address] [id number] [address] May, [facility] [address] [facility] [id number] [place] [address] Mar, [facility] [address] [facility] [id number] [place] [address] Mar, [facility] [address] [facility] [id number] [place] [address] Oct, IMMUNIZATIONS No Known Immunizations SOCIAL HISTORY Never Assessed REASON FOR VISIT [facility] PLAN OF CARE VITAL SIGNS MEDICATIONS Unknown [...] disc replacement L1- L5 - Dr Muhammad ([place]) Surgical History appendectomy 1983 Surgical History hysterectomy 1993 Surgical History dilatation and curettage Surgical History heart cath- Dr Shaw [address] Solano bowel and intestines sep2015 Surgical History Dr solano removed skin tag and cyst 2018 Hospitalization History Hospitalization for surgery only
--- OUTSIDE RECORDS SUMMARY | 2019-01-03 13:53 | XMS REPORT ---
Author Author Migration, Doctor Organization [facility] Address Unknown Phone Unavailable Care Team Providers Care Reel Winder Name Role Phone Migration, Doctor Unavailable Unavailable PROBLEMS Type Condition ICD9-CM Code PQV24-EI Code Onset Dates Condition Status SNOMED Code Problem Prediabetes 790.29 Active 7475505 Problem Major depressive disorder, recurrent episode, moderate F33.1 Active 738917691 Problem Mixed hyperlipidemia E78.2 Active 630383901 Problem PTSD (post-traumatic stress disorder) F43.10 Active 93628057 Problem Tobacco use Z72.0 Active 368096235 Problem Alcohol use disorder, mild, 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 Active 30784199 Problem Cigarette nicotine dependence without complication F17.210 Active 02093134 Problem Cannabis abuse F12.10 Active 93506106 Problem Acute pain of left shoulder M25.512 Active 33192116 Problem Generalized anxiety disorder F41.1 Active 57256725 Problem Opioid use disorder, moderate, in sustained remission F11.21 Active 36768976 Problem Methamphetamine use disorder, severe, 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 Active 61999175 Problem Cocaine use disorder, moderate, in sustained remission F14.21 Active 21697830 Problem GERD with esophagitis K21.0 Active 504776976 ALLERGIES No Information ENCOUNTERS Encounter Location Date Diagnosis [place] [id number] [place] [address] December, [place] [id number] [place] [address] 15 Nov, 2018 Major depressive disorder, recurrent episode, moderate F33.1 ; Cannabis abuse F12.10 ; Generalized anxiety disorder F41.1 ; Methamphetamine use disorder, severe, 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 ; Alcohol use disorder, mild, 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 ; PTSD (post-traumatic stress disorder) F43.10 and Cocaine use disorder, moderate, in sustained remission F14.21 [place] [id number] [place] [address] Oct, Major depressive disorder, recurrent episode, moderate F33.1 ; Cannabis abuse F12.10 ; Generalized anxiety disorder F41.1 ; Methamphetamine use disorder, severe, 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 ; Alcohol use disorder, mild, 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 ; PTSD (post-traumatic stress disorder) F43.10 and Cocaine use disorder, moderate, in sustained remission F14.21 [facility] [address] [place] [address] Sep, Major depressive disorder, recurrent episode, moderate F33.1 [facility] [id number] [place] [id number] Aug, [facility] [id number] [place] [address] Jul, Dysuria R30.0 [facility] [id number] [place] [address] Jul, Major depressive disorder, recurrent episode, moderate F33.1 [facility] [id number] [place] [address] Jun, Major depressive disorder, recurrent episode, moderate F33.1 [facility] [id number] [place] [address] Jun, Major depressive disorder, recurrent episode, moderate F33.1 [facility] [address] [place] [address] Jun, Acute pain of left shoulder M25.512 and Cigarette nicotine dependence without complication F17.210 [facility] [id number] [place] [address] May, [facility] [address] [address] May, Cocaine use disorder, moderate, in sustained remission F14.21 [facility] [id number] [place] [address] May, [facility] [address] [place] [address] 12 May, 2018 Dental examination Z01.20 [facility] [address] [place] [phone] 09 May, 2018 Dental examination Z01.20 and Caries K02.9 [facility] [address] [place] [address] May, Common wart B07.8 [facility] [id number] [place] [address] May, [facility] [id number] [place] [address] 27 Apr, 2018 Cocaine use disorder, moderate, in sustained remission F14.21 [place] [id number] [place] [address] 14 Apr, 2018 [facility] [id number] [place] [address] [id number] 13 Apr, 2018 Dental examination Z01.20 [facility] [id number] [place] [id number] 10 Mar, 2018 Encounter for dental exam and cleaning w/o abnormal findings Z01.20 [facility] [address] [place] [address] Mar, [facility] [id number] [place] [address] Feb, Cocaine use disorder, moderate, in sustained remission F14.21 ; Opioid use disorder, moderate, in sustained remission F11.21 ; Alcohol use disorder, mild, 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 ; Tobacco use Z72.0 ; PTSD (post-traumatic stress disorder) F43.10 ; Methamphetamine use disorder, severe, 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 ; Generalized anxiety disorder F41.1 ; Cannabis abuse F12.10 and Major depressive disorder, recurrent episode, moderate F33.1 [facility] [address] [address] Jan, Cocaine use disorder, moderate, in sustained remission F14.21 [facility] [id number] [address] Jan, Cocaine use disorder, moderate, in sustained remission F14.21 ; Opioid use disorder, moderate, in sustained remission F11.21 ; Alcohol use disorder, mild, 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 ; Tobacco use Z72.0 ; PTSD (post-traumatic stress disorder) F43.10 ; Methamphetamine use disorder, severe, 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 ; Generalized anxiety disorder F41.1 ; Cannabis abuse F12.10 and Major depressive disorder, recurrent episode, moderate F33.1 [facility] [address] [place] [address] Jan, Dysuria R30.0 and GERD with esophagitis K21.0 [place] [id number] [place] [address] December, Major depressive disorder, recurrent episode, moderate F33.1 [place] [address] [place] [address] December, [facility] [address] [place] [address] December, Major depressive disorder, recurrent episode, moderate F33.1 ; Generalized anxiety disorder F41.1 ; Cannabis abuse F12.10 ; PTSD (post-traumatic stress disorder) F43.10 ; Methamphetamine use disorder, severe, 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 ; Cocaine use disorder, moderate, in sustained remission F14.21 ; Opioid use disorder, moderate, in sustained remission F11.21 ; Alcohol use disorder, mild, 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 and Tobacco use Z72.0 [facility] [address] [place] [address] Nov, [facility] [address] [id number] [address] Nov, [facility] [address] [address] 04 Apr, 2018 Wellness examination Z00.00 ; Encounter for immunization Z23 ; Screening for osteoporosis Z13.820 ; Screening for breast cancer Z12.31 and Left breast lump N63.20 [facility] [id number] [place] [phone] Oct, Dental examination Z01.20 [facility] [id number] [place] [address] Oct, [facility] [address] [address] Oct, [facility] [id number] [place] [address] 16 Sep, 2017 [facility] [id number] [place] [address] 15 Sep, 2017 [facility] [id number] [place] [address] 14 Sep, 2017 Left otitis media with effusion H65.92 ; Acute suppurative otitis media of right ear without spontaneous rupture of tympanic membrane, recurrence not specified H66.001 ; Dizziness R42 and Fatigue 780.79 [facility] [id number] [place] [address] Aug, Major depressive disorder, recurrent episode, moderate F33.1 ; Generalized anxiety disorder F41.1 ; Cannabis abuse F12.10 ; PTSD (post-traumatic stress disorder) F43.10 ; Methamphetamine use disorder, severe, 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 ; Cocaine use disorder, moderate, in sustained remission F14.21 ; Opioid use disorder, moderate, in sustained remission F11.21 ; Alcohol use disorder, mild, 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 and Tobacco use Z72.0 [facility] [id number] [place] [address] Aug, Ingrown right big toenail L60.0 [facility] [id number] [place] [address] Aug, [facility] [address] [place] [address] 15 Aug, 2017 PTSD (post-traumatic stress disorder) F43.10 [facility] [address] [place] [address] Aug, Major depressive disorder, recurrent episode, moderate F33.1 ; Generalized anxiety disorder F41.1 and Cannabis abuse F12.10 [facility] [address] [place] [address] Jul, [facility] [id number] [place] [address] Jul, [facility] [id number] [place] [address] Jul, [facility] [address] [place] [address] Jul, Major depressive disorder, recurrent episode, moderate F33.1 ; Generalized anxiety disorder F41.1 and Cannabis abuse F12.10 [facility] [address] [address] Jul, [facility] [id number] [place] [address] Jul, [facility] [address] [address] Jul, Hyperlipidemia 272.4 [facility] [address] [place] [address] Jul, PTSD (post-traumatic stress disorder) F43.10 [facility] [address] [address] 14 Jul, 2017 Tobacco use Z72.0 ; [...] F41.1 and Cannabis abuse F12.10 [place] [address] [place] [address] Jul, [facility] [id number] [place] [address] Jul, Dysuria R30.0 and Mixed hyperlipidemia E78.2 [place] [id number] [place] [address] Jun, Major depressive disorder, recurrent episode, moderate F33.1 ; Generalized anxiety disorder F41.1 and Cannabis abuse F12.10 [place] [id number] [place] [address] Jun, [place] [id number] [place] [address] Jun, Generalized anxiety disorder F41.1 ; Major [...] F14.21 and Tobacco use Z72.0 [place] [address] [address] Jun, Major depressive disorder, recurrent episode, moderate F33.1 ; Generalized anxiety disorder F41.1 and Cannabis abuse F12.10 [place] [address] [address] Jun, [place] [id number] [place] [address] Jun, [place] [address] [place] [address] Jun, Major depressive disorder, recurrent episode, moderate F33.1 ; Generalized anxiety disorder F41.1 and Cannabis abuse F12.10 [facility] [id number] [id number] Mar, Dental examination Z01.20 [facility] [id number] [place] [address] [id number] Feb, Dental examination Z01.20 [facility] [id number] [place] [address] Mar, [facility] [id number] [place] [address] Mar, [facility] [id number] [place] [address] Feb, Hyperlipidemia 272.4 and Prediabetes 790.29 [facility] [id number] [place] [address] Feb, Fatigue 780.79 and Hyperlipidemia 272.4 [facility] [id number] [place] [address] Feb, Lumbago 724.2 ; Hyperlipidemia 272.4 ; Insomnia 780.52 and Fatigue 780.79 [facility] [id number] [place] [address] Nov, [facility] [address] [place] [address] Nov, [facility] [id number] [place] [address] Mar, [facility] [id number] [place] [address] Mar, [facility] [id number] [place] [address] Jan, [facility] [id number] [place] [address] Jan, [facility] [id number] [place] [address] December, [facility] [place] [facility] [address] [id number] [place] [address] December, [facility] [place] [facility] [address] [id number] [place] [address] Nov, [facility] [place] [facility] [address] [id number] [place] [address] Nov, [facility] [place] [facility] [address] [id number] [place] [address] Nov, [facility] [place] [facility] [address] [id number] [place] [address] Nov, [facility] [place] [facility] [address] [id number] [place] [address] Nov, [facility] [place] [facility] [address] [id number] [place] [address] Nov, [facility] [place] [facility] [address] [id number] [place] [address] Oct, [facility] [place] [facility] [address] [id number] [place] [address] 31 Oct, 2013 [facility] [place] [facility] [address] [id number] [place] [address] Oct, [facility] [place] [facility] [address] [id number] [place] [address] 20 Oct, 2013 [facility] [place] [facility] [address] [id number] [place] [address] 19 Oct, 2013 [facility] [place] [facility] [address] [id number] [place] [address] Oct, [facility] [place] [facility] [address] [id number] [place] [address] Oct, [facility] [place] [facility] [address] [id number] [place] [address] Oct, [facility] [place] [facility] [address] [id number] [place] [address] Oct, [facility] [place] [facility] [address] [id number] [place] [address] Oct, [facility] [place] [facility] [address] [id number] [place] [address] Oct, [facility] [place] [facility] [address] [facility] [id number] [place] [address] Oct, [facility] [place] [facility] [address] [id number] [place] [address] Oct, [facility] [place] [facility] [address] [id number] [place] [address] 24 Sep, 2013 [facility] [place] [facility] [address] [facility] [id number] [place] [address] 24 Sep, 2013 [facility] [place] [facility] [address] [facility] [id number] [place] [address] 20 Sep, 2013 [facility] [place] [facility] [address] [facility] [id number] [place] [address] 20 Sep, 2013 [facility] [place] [facility] [address] [facility] [id number] [place] [address] 20 Sep, 2013 [facility] [place] [facility] [address] [facility] [id number] [place] [address] 20 Sep, 2013 [facility] [place] [facility] [address] [facility] [id number] [place] [address] 18 Sep, 2013 [facility] [place] [facility] [address] [facility] [id number] [place] [address] 18 Sep, 2013 [facility] [place] [facility] [address] [facility] [id number] [place] [address] 14 Sep, 2013 [facility] [place] [facility] [address] [facility] [id number] [place] [address] 14 Sep, 2013 [facility] [place] [facility] [address] [facility] [id number] [place] [address] 14 Sep, 2013 [facility] [place] [facility] [address] [id number] [place] [address] 14 Sep, 2013 [facility] [place] [facility] [address] [id number] [place] [address] 14 Sep, 2013 [facility] [place] [facility] [address] [id number] [place] [address] 14 Sep, 2013 [facility] [place] [facility] [address] [id number] [place] [address] Sep, [facility] [place] [facility] [address] [id number] [place] [address] Sep, [facility] [place] [facility] [address] [id number] [place] [address] Sep, [facility] [place] [facility] [address] [id number] [place] [address] Sep, [facility] [place] [facility] [address] [id number] [place] [address] Sep, [facility] [place] [facility] [address] [id number] [place] [address] Sep, [facility] [place] [facility] [address] [id number] [place] [address] Aug, [facility] [place] [facility] [address] [id number] [place] [address] Aug, [facility] [place] [facility] [address] [id number] [place] [address] Aug, [facility] [place] [facility] [address] [id number] [place] [address] Aug, [facility] [place] [facility] [address] [id number] [place] [address] Aug, [facility] [place] [facility] [address] [id number] [place] [address] Jul, [facility] [place] [facility] [address] [id number] [place] [address] Jul, [facility] [address] [id number] [place] [address] Jul, [facility] [place] [facility] [address] [id number] [place] [address] Jul, [facility] [address] [id number] [place] [address] Jul, [facility] [place] [facility] [address] [id number] [place] [address] Jul, [facility] [address] [id number] [place] [address] Jul, [facility] [address] [id number] [place] [address] Jul, [facility] [place] [facility] [address] [id number] [place] [address] Jul, [facility] [address] [id number] [place] [address] Jun, [facility] [place] [facility] [address] [id number] [place] [address] Jun, [facility] [address] [id number] [place] [address] Jun, [facility] [place] [facility] [address] [id number] [place] [address] Jun, [facility] [place] [facility] [address] [id number] [place] [address] Jun, [facility] [place] [facility] [address] [id number] [place] [address] Jun, [facility] [place] [facility] [address] [id number] [place] [address] Jun, [facility] [place] [facility] [address] [id number] [place] [address] Jun, [facility] [place] [facility] [address] [id number] [place] [address] Jun, [facility] [place] [facility] [address] [id number] [place] [address] Jun, [facility] [place] [facility] [address] [id number] [place] [address] May, [facility] [place] [facility] [address] [id number] [place] [address] May, [facility] [place] [facility] [address] [id number] [place] [address] May, [facility] [place] [facility] [address] [id number] [place] [address] May, [facility] [place] [facility] [address] [id number] [place] [address] May, [facility] [place] [facility] [address] [id number], [place] [address] May, [facility] [place] [facility] [address] [id number] [place] [address] May, [facility] [place] [facility] [address] [id number], [place] [address] May, [facility] [place] [facility] [address] [id number], [place] [address] May, [facility] [place] [facility] [address] [id number], [place] [address] 26 Apr, 2013 [facility] [place] [facility] [address] [id number] [place] [address] 16 Apr, 2013 [facility] [place] [facility] [address] [id number], [place] [address] 12 Apr, 2013 [facility] [place] [facility] [address] [id number] [place] [address] 06 Apr, 2013 [facility] [place] [facility] [address] [id number] [place] [address] Mar, [facility] [address] [id number] [place] [address] Mar, [facility] [place] [facility] [address] [id number] [place] [address] Mar, [facility] [place] [facility] [address] [id number] [place] [address] Mar, [facility] [place] [facility] [address] [id number] [place] [address] Mar, [facility] [place] [facility] [address] [id number] [place] [address] Mar, [facility] [place] [facility] [address] [id number] [place] [address] Mar, [facility] [place] [facility] [address] [id number] [place] [address] Feb, [facility] [place] [facility] [address] [id number] [place] [address] Feb, [facility] [place] [facility] [address] [id number] [place] [address] Feb, [facility] [place] [facility] [address] [id number] [place] [address] Feb, [facility] [place] [facility] [address] [id number] [place] [address] Feb, [facility] [place] [facility] [address] [id number] [place] [address] Feb, [facility] [place] [facility] [address] [id number] [place] [address] Feb, [facility] [place] [facility] [address] [id number] [place] [address] Feb, [facility] [place] [facility] [address] [id number] [place] [address] Feb, [facility] [place] [facility] [address] [id number] [place] [address] Feb, [facility] [address] [id number] [place] [address] Feb, [facility] [place] [facility] [address] [id number] [place] [address] Jan, [facility] [place] [facility] [address] [id number] [place] [address] Jan, [facility] [address] [id number] [place] [address] December, [facility] [place] [facility] [address] [id number] [place] [address] December, [facility] [address] [id number] [place] [address] Nov, [facility] [address] [id number] [place] [address] Nov, [facility] [address] [id number] [place] [address] Oct, [facility] [address] [id number] [place] [address] Oct, [facility] [place] [facility] [address] [id number] [place] [address] Oct, [facility] [place] [facility] [address] [id number] [place] [address] Oct, [facility] [place] [facility] [address] [id number] [place] [address] Sep, [facility] [place] [facility] [address] [id number] [place] [address] Sep, [facility] [place] [facility] [address] [id number] [place] [address] Sep, [facility] [place] [facility] [address] [id number], [place] [address] Sep, [facility] [address] [id number] [place] [address] Aug, [facility] [place] [facility] [address] [id number] [place] [address] Aug, [facility] [place] [facility] [address] [id number] [place] [address] Jul, [facility] [place] [facility] [address] [id number] [place] [address] Jul, [facility] [place] [facility] [address] [id number] [place] [address] Jul, [facility] [place] [facility] [address] [id number] [place] [address] Jul, [facility] [place] [facility] [address] [id number] [place] [address] Jul, [facility] [place] [facility] [address] [id number] [place] [address] Jul, [facility] [place] [facility] [address] [id number] [place] [address] Jun, [facility] [place] [facility] [address] [id number] [place] [address] Jun, [facility] [place] [facility] [address] [id number], [place] [address] Jun, [facility] [place] [facility] [address] [id number], [place] [address] Jun, [facility] [place] [facility] [address] [id number], [place] [address] Jun, [facility] [place] [facility] [address] [id number] [place] [address] May, [facility] [place] [facility] [address] [id number] [place] [address] May, [facility] [place] [facility] [address] [id number] [place] [address] May, [facility] [place] [facility] [address] [id number] [place] [address] May, [facility] [place] [facility] [address] [id number] [place] [address] May, [facility] [place] [facility] [address] [id number] [place] [address] May, [facility] [place] [facility] [address] [id number] [place] [address] May, [facility] [place] [facility] [address] [id number] [place] [address] May, [facility] [place] [facility] [address] [id number] [place] [address] Mar, [facility] [place] [facility] [address] [id number] [place] [address] Mar, [facility] [place] [facility] [address] [id number] [place] [address] Mar, [facility] [place] [facility] [address] [id number] [place] [address] Feb, [facility] [place] [facility] [address] [id number] [place] [address] Feb, [facility] [place] [facility] [address] [id number] [place] [address] Feb, [facility] [place] [facility] [address] [id number] [place] [address] Feb, [facility] [place] [facility] [address] [id number] [place] [address] Jan, [facility] [place] [facility] [address] [id number] [place] [address] Jan, [facility] [place] [facility] [address] [id number] [place] [address] Jan, [facility] [address] [id number] [place] [address] December, [facility] [place] [facility] [address] [id number] [place] [address] Nov, [facility] [place] [facility] [address] [id number] [place] [address] Oct, [facility] [place] [facility] [address] [id number] [place] [address] Oct, [facility] [place] [facility] [address] [id number] [place] [address] Oct, [facility] [place] [facility] [address] [id number] [place] [address] Oct, [facility] [place] [facility] [address] [id number] [place] [address] Aug, [facility] [place] [facility] [address] [id number] [place] [address] Aug, [facility] [place] [facility] [address] [id number] [place] [address] Aug, [facility] [place] [facility] [address] [id number] [place] [address] Aug, [facility] [place] [facility] [address] [id number] [place] [address] Aug, [facility] [place] [facility] [address] [id number], [place] [address] Aug, [facility] [place] [facility] [address] [id number] [place] [address] Aug, [facility] [place] [facility] [address] [id number] [place] [address] Aug, [facility] [place] [facility] [address] [id number] [place] [address] Jul, [facility] [place] [facility] [address] [id number] [place] [address] 29 Jun, 2011 [facility] [address] [id number] [place] [address] 29 Jun, 2011 [facility] [place] [facility] [address] [id number] [place] [address] 31 Jul, 2010 [facility] [place] [facility] [address] [id number] [place] [address] 22 Jul, 2010 [facility] [place] [facility] [address] [id number] [place] [address] 22 Jul, 2010 [facility] [place] [facility] [address] [id number] [place] [address] 14 Jul, 2010 [facility] [place] [facility] [address] [id number] [place] [address] 14 Jul, 2010 [facility] [place] [facility] [address] [id number] [place] [address] 24 Jun, 2010 [facility] [place] [facility] [address] [id number] [place] [address] May, [facility] [place] [facility] [address] [id number] [place] [address] Mar, [facility] [place] [facility] [address] [facility] [id number] [place] [address] Oct, [facility] [place] [facility] [address] [id number] [place] [address] Aug, [facility] [place] [facility] [address] [id number] [place] [address] 15 Jul, 2009 [facility] [place] [facility] [address] [id number] [place] [address] Jul, [facility] [place] [facility] [address] [id number] [place] [address] Jun, [facility] [place] [facility] [address] [facility] [id number] [place] [address] Jun, [facility] [place] [facility] [address] [facility] [id number], [place] [address] May, [facility] [address] [id number], [place] [address] May, [facility] [address] [facility] [id number], [place] [address] Mar, [facility] [address] [facility] [id number], [place] [address] Mar, [facility] [address] [facility] [id number], [place] [address] Oct, IMMUNIZATIONS No Known Immunizations SOCIAL HISTORY Never Assessed REASON FOR VISIT [facility] PLAN OF CARE VITAL SIGNS MEDICATIONS Unknown [...] disc replacement L1- L5 - Dr Muhammad ([place]) Surgical History appendectomy 1983 Surgical History hysterectomy 1993 Surgical History dilatation and curettage Surgical History heart cath- Dr Shaw [address] Solano bowel and intestines sep2015 Surgical History [address] solano removed skin tag and cyst 2018 Hospitalization History Hospitalization for surgery only
--- OUTSIDE RECORDS SUMMARY | 2019-01-03 13:54 | XMS REPORT ---
Author Author Migration, Doctor Organization [facility] Address Unknown Phone Unavailable Care Team Providers Care Sales Administration Specialist Name Role Phone Migration, Doctor Unavailable Unavailable PROBLEMS Type Condition ICD9-CM Code [id number] Code Onset Dates Condition Status SNOMED Code Problem Prediabetes 790.29 Active 9567018 Problem Major depressive disorder, recurrent episode, moderate F33.1 Active 342470387 Problem Mixed hyperlipidemia E78.2 Active 198677875 Problem PTSD (post-traumatic stress disorder) F43.10 Active 39921701 Problem Tobacco use Z72.0 Active 542671164 Problem Alcohol use disorder, mild, 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 Active 43349602 Problem Cigarette nicotine dependence without complication F17.210 Active 52771818 Problem Cannabis abuse F12.10 Active 73357743 Problem Acute pain of left shoulder M25.512 Active 31668551 Problem Generalized anxiety disorder F41.1 Active 56199160 Problem Opioid use disorder, moderate, in sustained remission F11.21 Active 51026860 Problem Methamphetamine use disorder, severe, 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 [address] [place] [id number] Aug, [facility] [address] [place] [id number] [place] [address] Jul, Dysuria R30.0 [facility] [address] [id number] [place] [address] Jul, Major depressive disorder, recurrent episode, moderate F33.1 [facility] [id number] [place] [address] Jun, Major depressive disorder, recurrent episode, moderate F33.1 [facility] [address] [address] [id number] [place] [address] Jun, Major depressive disorder, recurrent episode, moderate F33.1 [facility] [address] [id number] [place] [address] Jun, Acute pain of left shoulder M25.512 and Cigarette nicotine dependence without complication F17.210 [facility] [address] [place] [address] [id number] [place] [address] May, [facility] [id number] [place] [address] May, Cocaine use disorder, moderate, in sustained remission F14.21 [facility] [id number] [place] [address] May, [facility] [address] [facility] [place] [address] May, Dental examination Z01.[address] [facility] [address] [place] [id number] [place] [id number] May, Dental examination Z01.20 and Caries K02.9 [facility] [address] [address] [id number] [place] [address] May, Common wart B07.8 [facility] [address] [address] May, [place] [address] [address] [id number] [place] [address] Apr, Cocaine use disorder, moderate, in sustained remission F14.21 [place] [address] [address] 14 Apr, [address] [facility] [address] [address] [id number] [place] [id number] 13 Apr, 2018 Dental examination Z01.[address] [facility] [address] [address] [id number] [place] [id number] 10 Mar, 2018 Encounter for dental exam and cleaning w/o abnormal findings Z01.20 [place] [address] [place] [id number] [place] [address] Mar, [place] [address] [place] [id number] [place] [address] Feb, Cocaine use disorder, moderate, in sustained remission F14.21 ; Opioid use disorder, moderate, in sustained remission F11.21 ; Alcohol use disorder, mild, 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 ; Tobacco use Z72.0 ; PTSD (post-traumatic stress disorder) F43.10 ; Methamphetamine use disorder, severe, 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 ; Generalized anxiety disorder F41.1 ; Cannabis abuse F12.10 and Major depressive disorder, recurrent episode, moderate F33.1 [place] [address] [address] Jan, Cocaine use disorder, moderate, in sustained remission F14.21 [place] [address] [address] Jan, Cocaine use disorder, moderate, in sustained remission F14.21 ; Opioid use disorder, moderate, in sustained remission F11.21 ; Alcohol use disorder, mild, 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 ; Tobacco use Z72.0 ; PTSD (post-traumatic stress disorder) F43.10 ; Methamphetamine use disorder, severe, 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 ; Generalized anxiety disorder F41.1 ; Cannabis abuse F12.10 and Major depressive disorder, recurrent episode, moderate F33.1 [place] [address] [place] [address] Jan, Dysuria R30.0 and GERD with esophagitis K21.0 [facility] [address] [place] [address] December, Major depressive disorder, recurrent episode, moderate F33.1 [place] [address] [place] [id number] [place] [address] December, [place] [id number] [place] [address] December, Major depressive disorder, recurrent episode, moderate F33.1 ; Generalized anxiety disorder F41.1 ; Cannabis abuse F12.10 ; PTSD (post-traumatic stress disorder) F43.10 ; Methamphetamine use disorder, severe, 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 ; Cocaine use disorder, moderate, in sustained remission F14.21 ; Opioid use disorder, moderate, in sustained remission F11.21 ; Alcohol use disorder, mild, 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 and Tobacco use Z72.0 [address] [place] [address] Nov, [facility] [address] [place], [place] [id number] [place] [address] Nov, [address] [place] [address] Nov, Wellness examination Z00.00 ; Encounter for immunization Z23 ; Screening for osteoporosis Z13.820 ; Screening for breast cancer Z12.31 and Left breast lump N63.[address] [facility] [address] [place] [address] [id number] Oct, Dental examination Z01.20 [address] [place] [address] Oct, [place] [id number] [address] Oct, [facility] [address] [place] [address] 16 Sep, 2017 [facility] [address] [place] [id number] [place] [address] 15 Sep, 2017 [facility] [address] [place] [address] [id number] [place] [address] 14 Sep, 2017 Left otitis media with effusion H65.92 ; Acute suppurative otitis media of right ear without spontaneous rupture of tympanic membrane, recurrence not specified H66.001 ; Dizziness R42 and Fatigue 780.79 [place] [address] [place] [address] Aug, Major depressive disorder, recurrent episode, moderate [...] Tobacco use Z72.0 [facility] [address] [place] [address] Aug, Ingrown right big toenail L60.0 [facility] [address] [place] [address] Aug, [facility] [address] [place] [address] Aug, PTSD (post-traumatic stress disorder) F43.10 [place] [address] [place] [address] Aug, Major depressive disorder, recurrent episode, moderate F33.1 ; Generalized anxiety disorder F41.1 and Cannabis abuse F12.10 [facility] [address] [place] [address] Jul, [facility] [address] [address] Jul, [facility] [address] [place] [address] [id number] [place] [address] Jul, [facility] [address] [place] [id number] [place] [address] Jul, Major depressive disorder, recurrent episode, moderate F33.1 ; Generalized anxiety disorder F41.1 and Cannabis abuse F12.10 [facility] [address] [place] [id number] [place] [address] Jul, [facility] [address] [place] [id number] [place] [address] Jul, [facility] [address] [place] [id number] [place] [address] Jul, Hyperlipidemia 272.4 [facility] [address] [place] [id number] [place] [address] Jul, PTSD (post-traumatic stress disorder) F43.10 [place] [address] [place] [address] Jul, Tobacco use Z72.0 ; Alcohol use disorder, mild, 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 ; Opioid use disorder, moderate, in sustained remission F11.21 ; Methamphetamine use disorder, severe, 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 ; Cocaine use disorder, moderate, in sustained remission F14.21 ; PTSD (post-traumatic stress disorder) F43.10 ; Major depressive disorder, recurrent episode, moderate F33.1 ; Generalized anxiety disorder F41.1 and Cannabis abuse F12.10 [facility] [address] [id number] [place] [address] Jul, [facility] [address] [id number] [place] [address] Jul, Dysuria R30.0 and Mixed hyperlipidemia E78.2 [place] [id number] [address] Jun, Major depressive disorder, recurrent episode, moderate F33.1 ; Generalized anxiety disorder F41.1 and Cannabis abuse F12.10 [facility] [address] [place] [address] Jun, [facility] [address] [place] [address] Jun, Generalized anxiety disorder F41.1 ; Major depressive disorder, recurrent episode, moderate F33.1 ; PTSD (post-traumatic stress disorder) F43.10 ; Opioid use disorder, moderate, in sustained remission F11.21 ; Cannabis abuse F12.10 ; Alcohol use disorder, mild, 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 ; Methamphetamine use disorder, severe, 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 ; Cocaine use disorder, moderate, in sustained remission F14.21 and Tobacco use Z72.0 [facility] [address] [id number] [place] [address] Jun, Major depressive disorder, recurrent episode, moderate F33.1 ; Generalized anxiety disorder F41.1 and Cannabis abuse F12.10 [facility] [address] [place] [address] Jun, [facility] [address] [address] [id number] [place] [address] Jun, [facility] [address] [address] Jun, Major depressive disorder, recurrent episode, moderate F33.1 ; Generalized anxiety disorder F41.1 and Cannabis abuse F12.[address] [facility] [address] [place] [address] [id number] Mar, Dental examination Z01.[address] [facility] [address] [place] [id number] [place] [address] [id number] Feb, Dental examination Z01.20 [facility] [address] [place] [address] Mar, [facility] [address] [address] [id number] [address] Mar, [facility] [id number] [place] [address] Feb, Hyperlipidemia 272.4 and Prediabetes 790.29 [facility] [address] [address] [id number] [place] [address] Feb, Fatigue 780.79 and Hyperlipidemia 272.4 [facility] [address] [place] [id number] [place] [address] Feb, Lumbago 724.2 ; Hyperlipidemia 272.4 ; Insomnia 780.52 and Fatigue 780.79 [facility] [address] [id number] [place] [address] Nov, [facility] [id number] [place] [address] Nov, [facility] [address] [id number] [place] [address] Mar, [facility] [address] [place] [address] Mar, [facility] [address] [place] [address] Jan, [facility] [address], [place] [address] Jan, [facility] [address], [place] [address] December, [facility] [address], [place] [address] December, [facility] [address], [place] [address] Nov, [facility] [address], [place] [address] Nov, [facility] [id number] [place] [address] [place] [address] Nov, [facility] [place] [facility] [address] [id number] [place] [address] Nov, [facility] [place] [facility] [address] [id number] [place] [address] Nov, [facility] [place] [facility] [address] [id number] [place] [address] Nov, [facility] [place] [facility] [address] [id number] [place] [address] Oct, [facility] [place] [facility] [address] [id number] [place] [address] 31 Oct, 2013 [facility] [place] [facility] [address] [id number] [place] [address] Oct, [facility] [place] [facility] [address] [id number] [place] [address] Oct, [facility] [place] [facility] [address] [id number] [place] [address] Oct, [facility] [place] [facility] [address] [id number] [place] [address] 19 Oct, 2013 [facility] [place] [facility] [address] [id number] [place] [address] Oct, [facility] [place] [facility] [address] [id number] [place] [address] Oct, [facility] [place] [facility] [address] [id number] [place] [address] 11 Oct, 2013 [facility] [place] [facility] [address] [id number] [place] [address] 04 Oct, 2013 [facility] [place] [facility] [address] [id number] [place] [address] 04 Oct, 2013 [facility] [place] [facility] [address] [id number] [place] [address] Oct, [facility] [place] [facility] [address] [id number] [place] [address] Oct, [facility] [place] [facility] [address] [id number] [place] [address] 24 Sep, 2013 [facility] [place] [facility] [address] [id number] [place] [address] 24 Sep, 2013 [facility] [place] [facility] [address] [id number] [place] [address] 20 Sep, 2013 [facility] [place] [facility] [address] [id number] [place] [address] Sep, [facility] [place] [facility] [address] [id number] [place] [address] Sep, [facility] [place] [facility] [address] [facility] [id number] [place] [address] Sep, [facility] [place] [facility] [address] [id number] [place] [address] 18 Sep, 2013 [facility] [place] [facility] [address] [id number] [place] [address] 18 Sep, 2013 [facility] [place] [facility] [address] [facility] [id number] [place] [address] 14 Sep, 2013 [facility] [place] [facility] [address] [facility] [id number] [place] [address] 14 Sep, 2013 [facility] [place] [facility] [address] [id number] [place] [address] 14 Sep, 2013 [facility] [place] [facility] [address] [id number] [place] [address] 14 Sep, 2013 [facility] [place] [facility] [address] [id number] [place] [address] 14 Sep, 2013 [facility] [place] [facility] [address] [facility] [id number] [place] [address] 14 Sep, 2013 [facility] [place] [facility] [address] [id number] [place] [address] Sep, [facility] [place] [facility] [address] [id number] [place] [address] Sep, [facility] [place] [facility] [address] [id number] [place] [address] Sep, [facility] [place] [facility] [address] [id number] [place] [address] Sep, [facility] [place] [facility] [address] [id number] [place] [address] Sep, [facility] [place] [facility] [address] [id number] [place] [address] Sep, [facility] [place] [facility] [address] [id number] [place] [address] Aug, [facility] [place] [facility] [address] [id number] [place] [address] Aug, [facility] [place] [facility] [address] [id number] [place] [address] Aug, [facility] [place] [facility] [address] [id number] [place] [address] Aug, [facility] [place] [facility] [address] [id number] [place] [address] Aug, [facility] [place] [facility] [address] [id number] [place] [address] Jul, [facility] [place] [facility] [address] [id number] [place] [address] Jul, [facility] [place] [facility] [address] [id number] [place] [address] Jul, [facility] [place] [facility] [address] [id number] [place] [address] Jul, [facility] [place] [facility] [address] [id number] [place] [address] Jul, [facility] [place] [facility] [address] [id number] [place] [address] Jul, [facility] [place] [facility] [address] [id number], [place] [address] Jul, [facility] [place] [facility] [address] [facility] [id number], [place] [address] Jul, [facility] [place] [facility] [address] [id number], [place] [address] Jul, [facility] [place] [facility] [address] [id number] [place] [address] Jun, [facility] [place] [facility] [address] [id number], [place] [address] Jun, [facility] [place] [facility] [address] [id number], [place] [address] Jun, [facility] [place] [facility] [address] [id number], [place] [address] Jun, [facility] [place] [facility] [address] [id number], [place] [address] Jun, [facility] [place] [facility] [address] [id number], [place] [address] Jun, [facility] [place] [facility] [address] [id number], [place] [address] Jun, [facility] [place] [facility] [address] [id number], [place] [address] Jun, [facility] [place] [facility] [address] [id number], [place] [address] Jun, [facility] [place] [facility] [address] [id number], [place] [address] Jun, [facility] [place] [facility] [address] [facility] [id number], [place] [address] May, [facility] [place] [facility] [address] [id number] [place] [address] May, [facility] [place] [facility] [address] [id number] [place] [address] May, [facility] [place] [facility] [address] [id number] [place] [address] May, [facility] [place] [facility] [address] [id number] [place] [address] 16 May, 2013 [facility] [place] [facility] [address] [id number] [place] [address] May, [facility] [place] [facility] [address] [id number] [place] [address] May, [facility] [place] [facility] [address] [id number] [place] [address] May, [facility] [place] [facility] [address] [id number] [place] [address] May, [facility] [place] [facility] [address] [id number] [place] [address] Apr, [facility] [place] [facility] [address] [id number] [place] [address] 16 Apr, 2013 [facility] [place] [facility] [address] [id number] [place] [address] 12 Apr, 2013 [facility] [place] [facility] [address] [id number] [place] [address] 06 Apr, 2013 [facility] [place] [facility] [address] [id number] [place] [address] 30 Mar, 2013 [facility] [place] [facility] [address] [id number] [place] [address] Mar, [facility] [place] [facility] [address] [id number] [place] [address] Mar, [facility] [place] [facility] [address] [id number] [place] [address] Mar, [facility] [place] [facility] [address] [id number] [place] [address] Mar, [facility] [address] [id number] [place] [address] Mar, [facility] [address] [id number] [place] [address] Mar, [facility] [address] [id number] [place] [address] Feb, [facility] [address] [id number] [place] [address] Feb, [facility] [address] [id number] [place] [address] Feb, [facility] [address] [id number] [place] [address] Feb, [facility] [address] [id number] [place] [address] Feb, [facility] [address] [id number] [place] [address] Feb, [facility] [address] [id number] [place] [address] Feb, [facility] [address] [id number] [place] [address] Feb, [facility] [place] [facility] [address] [id number] [place] [address] Feb, [facility] [place] [facility] [address] [id number] [place] [address] Feb, [facility] [place] [facility] [address] [id number] [place] [address] Feb, [facility] [place] [facility] [address] [id number] [place] [address] Jan, [facility] [place] [facility] [address] [id number] [address] Jan, [facility] [address] [id number] [place] [address] December, [facility] [address] [id number] [place] [address] December, [facility] [address] [id number] [place] [address] Nov, [facility] [address] [id number] [place] [address] Nov, [facility] [address] [id number] [place] [address] Oct, [facility] [address] [id number] [place] [address] Oct, [facility] [address] [id number] [place] [address] Oct, [facility] [address] [id number] [place] [address] Oct, [facility] [address] [id number] [place] [address] Sep, [facility] [address] [id number] [place] [address] Sep, [facility] [address] [id number], [place] [address] Sep, [facility] [address] [id number], [place] [address] Sep, [facility] [address] [id number] [place] [address] Aug, [facility] [place] [facility] [address] [id number], [place] [address] Aug, [facility] [address] [facility] [id number], [place] [address] Jul, [facility] [place] [facility] [address] [id number] [place] [address] Jul, [facility] [place] [facility] [address] [id number] [place] [address] Jul, [facility] [place] [facility] [address] [id number] [place] [address] Jul, [facility] [place] [facility] [address] [id number] [place] [address] Jul, [facility] [place] [facility] [address] [id number] [place] [address] Jul, [facility] [place] [facility] [address] [id number] [place] [address] Jun, [facility] [place] [facility] [address] [id number] [place] [address] Jun, [facility] [place] [facility] [address] [id number] [place] [address] Jun, [facility] [place] [facility] [address] [id number] [place] [address] Jun, [facility] [place] [facility] [address] [id number] [place] [address] Jun, [facility] [place] [facility] [address] [id number] [place] [address] May, [facility] [place] [facility] [address] [id number] [place] [address] May, [facility] [place] [facility] [address] [id number] [place] [address] May, [facility] [place] [facility] [address] [id number] [place] [address] May, [facility] [place] [facility] [address] [id number] [place] [address] May, [facility] [place] [facility] [address] [id number] [place] [address] May, [facility] [place] [facility] [address] [id number] [place] [address] May, [facility] [place] [facility] [address] [id number] [place] [address] May, [facility] [place] [facility] [address] [id number] [place] [address] Mar, [facility] [place] [facility] [address] [id number] [place] [address] Mar, [facility] [place] [facility] [address] [id number] [place] [address] Mar, [facility] [place] [facility] [address] [id number] [place] [address] Feb, [facility] [place] [facility] [address] [id number] [place] [address] Feb, [facility] [place] [facility] [address] [id number] [place] [address] Feb, [facility] [place] [facility] [address] [id number] [place] [address] Feb, [facility] [place] [facility] [address] [id number] [place] [address] Jan, [facility] [place] [facility] [address] [id number] [place] [address] Jan, [facility] [place] [facility] [address] [id number], [place] [address] Jan, [facility] [place] [facility] [address] [id number] [place] [address] December, [facility] [place] [facility] [address] [id number] [place] [address] Nov, [facility] [place] [facility] [address] [id number] [place] [address] Oct, [facility] [place] [facility] [address] [id number] [place] [address] Oct, [facility] [address] [id number] [place] [address] Oct, [facility] [place] [facility] [address] [id number] [place] [address] Oct, [facility] [address] [id number] [place] [address] Aug, [facility] [place] [facility] [address] [id number] [place] [address] Aug, [facility] [address] [id number] [place] [address] Aug, [facility] [address] [id number] [place] [address] Aug, [facility] [address] [id number] [place] [address] Aug, [facility] [address] [id number] [place] [address] Aug, [facility] [address] [id number] [place] [address] Aug, [facility] [address] [id number] [place] [address] Aug, [facility] [address] [id number] [place] [address] Jul, [facility] [place] [facility] [address] [id number] [place] [address] Jun, [facility] [place] [facility] [address] [id number] [place] [address] Jun, [facility] [place] [facility] [address] [id number] [place] [address] Jul, [facility] [place] [facility] [address] [id number] [place] [address] Jul, [facility] [place] [facility] [address] [id number] [place] [address] Jul, [facility] [address] [id number] [place] [address] 14 Jul, 2010 [facility] [address] [id number] [place] [address] 14 Jul, 2010 [facility] [place] [facility] [address] [id number] [place] [address] Jun, [facility] [address] [id number] [place] [address] May, [facility] [address] [id number] [place] [address] Mar, [facility] [address] [id number] [place] [address] Oct, [facility] [address] [id number] [place] [address] Aug, [facility] [address] [id number] [place] [address] 15 Jul, 2009 [facility] [address] [id number] [place] [address] Jul, [facility] [address] [id number] [place] [address] Jun, [facility] [place] [facility] [address] [id number], [place] [address] Jun, [facility] [place] [facility] [address] [id number] [place] [address] May, [facility] [place] [facility] [address] [id number] [place] [address] May, [facility] [place] [facility] [address] [id number] [place] [address] Mar, [facility] [place] [facility] [address] [id number], [place] [address] Mar, [facility] [address] [facility] [id number] [place] [address] Oct, IMMUNIZATIONS No Known Immunizations SOCIAL HISTORY Never Assessed REASON FOR VISIT [facility] [place] PLAN OF CARE VITAL SIGNS MEDICATIONS Medication Instructions Dosage Frequency Start Date End Date Duration Status cyclobenzaprine 10 mg 1 tablet every 6 hours PRN Oct, Active Xanax 1 mg 1 tablet by Oral route 3 times per day PRN Oct, Active Bactrim DS 800-160 mg 1 tablet by Oral route 2 times per day for 10 day(s) Mar, Active zolpidem 5 mg 1 tablet by Oral route 1 time per day Jun, Active Pyridium 200 mg 1 tablet by Oral route 3 times per day for 3 day(s) for bladder pain Feb, Active Oxycodone-Acetaminophen 5-325 mg 1 tablet by Oral route 2 times per day Nov, Active RESULTS No Results PROCEDURES No Known [...] disc replacement L1- L5 - Dr Muhammad ([place]) Surgical History appendectomy 1983 Surgical History hysterectomy 1993 Surgical History dilatation and curettage Surgical History heart cath- Dr Shaw [address] Solano bowel and intestines [address] solano removed skin tag and cyst 2017 Hospitalization History Hospitalization for surgery only
--- OUTSIDE RECORDS SUMMARY | 2019-01-03 13:55 | XMS REPORT ---
Author Author Migration, Doctor Organization [facility] Address Unknown Phone Unavailable Care Team Providers Care Editor Map Name Role Phone Migration, Doctor Unavailable Unavailable PROBLEMS Type Condition ICD9-CM Code SYZ66-OO Code Onset Dates Condition Status SNOMED Code Problem Prediabetes 790.29 Active 0125389 Problem Major depressive disorder, recurrent episode, moderate F33.1 Active 605796274 Problem Mixed hyperlipidemia E78.2 Active 937395002 Problem PTSD (post-traumatic stress disorder) F43.10 Active 25358457 Problem Tobacco use Z72.0 Active 906716324 Problem Alcohol use disorder, mild, 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 Active 47966061 Problem Cigarette nicotine dependence without complication F17.210 Active 00545043 Problem Cannabis abuse F12.10 Active 32432488 Problem Acute pain of left shoulder M25.512 Active 72678988 Problem Generalized anxiety disorder F41.1 Active 27430924 Problem Opioid use disorder, moderate, in sustained remission F11.21 Active 89739881 Problem Methamphetamine use disorder, severe, 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 Active 21676787 Problem Cocaine use disorder, moderate, in sustained remission F14.21 Active 05999368 Problem GERD with esophagitis K21.0 Active 681597335 ALLERGIES No Information ENCOUNTERS Encounter Location Date Diagnosis [place] [id number] [place] [address] Nov, [place] [id number] [place] [address] Oct, Major depressive disorder, recurrent episode, moderate F33.1 ; Cannabis abuse F12.10 ; Generalized anxiety disorder F41.1 ; Methamphetamine use disorder, severe, 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 ; Alcohol use disorder, mild, 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 ; PTSD (post-traumatic stress disorder) F43.10 and Cocaine use disorder, moderate, in sustained remission F14.21 [place] [id number] [place] [address] Sep, Major depressive disorder, recurrent episode, moderate F33.1 [facility] [id number] [place] [id number] Aug, [facility] [address] [place] [id number] [place] [address] Jul, Dysuria R30.0 [facility] [address] [place] [id number] [place] [address] Jul, Major depressive disorder, recurrent episode, moderate F33.1 [facility] [address] [place] [id number] [place] [address] Jun, Major depressive disorder, recurrent episode, moderate F33.1 [facility] [address] [place] [id number] [place] [address] Jun, Major depressive disorder, recurrent episode, moderate F33.1 [facility] [address] [place] [id number] [place] [address] Jun, Acute pain of left shoulder M25.512 and Cigarette nicotine dependence without complication F17.210 [facility] [address] [place] [id number] [place] [address] May, [facility] [address] [place] [id number] [place] [address] May, Cocaine use disorder, moderate, in sustained remission F14.21 [facility] [address] [place] [id number] [place] [address] May, [facility] [address] [facility] [place] [address] May, Dental examination Z01.20 [facility] [address] [place] [id number] [place] [phone] May, Dental examination Z01.20 and Caries K02.9 [facility] [address] [place] [id number] [place] [address] May, Common wart B07.8 [facility] [address] [address] May, [place] [address] [place] [id number] [place] [address] Apr, Cocaine use disorder, moderate, in sustained remission F14.21 [place] [address] [address] 14 Apr, 2018 [facility] [address] [place] [id number] [place] [address] [id number] 13 Apr, 2018 Dental examination Z01.20 [facility] [address] [place] [id number] [place] [address] [id number] 10 Mar, 2018 Encounter for dental exam and cleaning w/o abnormal findings Z01.20 [place] [address] [place] [id number] [place] [address] Mar, [place] [address] [place] [id number] [place] [address] Feb, Cocaine use disorder, moderate, in sustained remission F14.21 ; Opioid use disorder, moderate, in sustained remission F11.21 ; Alcohol use disorder, mild, in sustained remission F10.11 ; Tobacco use Z72.0 ; PTSD (post-traumatic stress disorder) F43.10 ; Methamphetamine use disorder, severe, 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 ; Generalized anxiety disorder F41.1 ; Cannabis abuse F12.10 and Major depressive disorder, recurrent episode, moderate F33.1 [place] [address] [address] Jan, Cocaine use disorder, moderate, in sustained remission F14.21 [place] [address] [address] Jan, Cocaine use disorder, moderate, in sustained remission F14.21 ; Opioid use disorder, moderate, in sustained remission F11.21 ; Alcohol use disorder, mild, in sustained remission F10.11 ; Tobacco use Z72.0 ; PTSD (post-traumatic stress disorder) F43.10 ; Methamphetamine use disorder, severe, 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 ; Generalized anxiety disorder F41.1 ; Cannabis abuse F12.10 and Major depressive disorder, recurrent episode, moderate F33.1 [place] [id number] [place] [address] Jan, Dysuria R30.0 and GERD with esophagitis K21.0 [facility] [id number] [place] [address] December, Major depressive disorder, recurrent episode, moderate F33.1 [place] [address] [place] [id number] [place] [address] December, [place] [id number] [place] [address] December, Major depressive disorder, recurrent episode, moderate F33.1 ; Generalized anxiety disorder F41.1 ; Cannabis abuse F12.10 ; PTSD (post-traumatic stress disorder) F43.10 ; Methamphetamine use disorder, severe, 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 ; Cocaine use disorder, moderate, in sustained remission F14.21 ; Opioid use disorder, moderate, in sustained remission F11.21 ; Alcohol use disorder, mild, in sustained remission F10.11 and Tobacco use Z72.0 [address] [place] [address] Nov, [facility] [address] [place], [place] [id number] [place] [address] Nov, [address] [place] [address] Nov, Wellness examination Z00.00 ; Encounter for immunization Z23 ; Screening for osteoporosis Z13.820 ; Screening for breast cancer Z12.31 and Left breast lump N63.20 [facility] [address] [place] [id number] Oct, Dental examination Z01.20 [address] [place] [address] Oct, [place] [id number] [address] Oct, [facility] [id number] [place] [address] 16 Sep, 2017 [facility] [address] [place] [id number] [place] [address] 15 Sep, 2017 [facility] [address] [place] [id number] [place] [address] 14 Sep, 2017 Left otitis media with effusion H65.92 ; Acute suppurative otitis media of right ear without spontaneous rupture of tympanic membrane, recurrence not specified H66.001 ; Dizziness R42 and Fatigue 780.79 [place] [id number] [place] [address] Aug, Major depressive disorder, recurrent episode, moderate [...] F10.11 and Tobacco use Z72.0 [facility] [id number] [place] [address] Aug, Ingrown right big toenail L60.0 [facility] [address] [place] [address] Aug, [facility] [id number] [place] [address] Aug, PTSD (post-traumatic stress disorder) F43.10 [place] [id number] [place] [address] Aug, Major depressive disorder, recurrent episode, moderate F33.1 ; Generalized anxiety disorder F41.1 and Cannabis abuse F12.10 [facility] [id number] [place] [address] Jul, [facility] [id number] [address] Jul, [facility] [address] [place] [id number] [place] [address] Jul, [facility] [address] [place] [id number] [place] [address] Jul, Major depressive disorder, recurrent episode, moderate F33.1 ; Generalized anxiety disorder F41.1 and Cannabis abuse F12.10 [facility] [address] [place] [id number] [place] [address] Jul, [facility] [address] [place] [id number] [place] [address] Jul, [facility] [address] [place] [id number] [place] [address] Jul, Hyperlipidemia 272.4 [facility] [address] [place] [id number] [place] [address] Jul, PTSD (post-traumatic stress disorder) F43.10 [place] [id number] [place] [address] Jul, Tobacco use Z72.0 ; Alcohol use [...] disorder F41.1 and Cannabis abuse F12.10 [facility] [address] [place] [id number] [place] [address] Jul, [facility] [address] [place] [id number] [place] [address] Jul, Dysuria R30.0 and Mixed hyperlipidemia E78.2 [place] [id number] [address] Jun, Major depressive disorder, recurrent episode, moderate F33.1 ; Generalized anxiety disorder F41.1 and Cannabis abuse F12.10 [facility] [id number] [place] [address] Jun, [facility] [id number] [place] [address] Jun, Generalized anxiety disorder F41.1 ; Major depressive disorder, recurrent episode, moderate F33.1 ; PTSD (post-traumatic stress disorder) F43.10 ; Opioid use disorder, moderate, in sustained remission F11.21 ; Cannabis abuse F12.10 ; Alcohol use disorder, mild, in sustained remission F10.11 ; Methamphetamine use disorder, severe, 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 ; Cocaine use disorder, moderate, in sustained remission F14.21 and Tobacco use Z72.0 [facility] [address] [place] [id number] [place] [address] Jun, Major depressive disorder, recurrent episode, moderate F33.1 ; Generalized anxiety disorder F41.1 and Cannabis abuse F12.10 [facility] [id number] [place] [address] Jun, [facility] [address] [place] [id number] [place] [address] Jun, [facility] [address] [address] Jun, Major depressive disorder, recurrent episode, moderate F33.1 ; Generalized anxiety disorder F41.1 and Cannabis abuse F12.10 [facility] [address] [place] [address] [id number] Mar, Dental examination Z01.20 [facility] [address] [place] [id number] [place] [address] [id number] Feb, Dental examination Z01.20 [facility] [id number] [place] [address] Mar, [facility] [address] [place] [id number] [address] Mar, [facility] [address] [place] [id number] [place] [address] Feb, Hyperlipidemia 272.4 and Prediabetes 790.29 [facility] [address] [place] [id number] [place] [address] Feb, Fatigue 780.79 and Hyperlipidemia 272.4 [facility] [address] [place] [id number] [place] [address] Feb, Lumbago 724.2 ; Hyperlipidemia 272.4 ; Insomnia 780.52 and Fatigue 780.79 [facility] [address] [place] [id number] [place] [address] Nov, [facility] [address] [place] [address] [id number] [place] [address] Nov, [facility] [address] [place] [address] [id number] [place] [address] Mar, [facility] [id number] [place] [address] Mar, [facility] [id number] [place] [address] Jan, [facility] [id number] [address] Jan, [facility] [address] [address] December, [facility] [address] [address] December, [facility] [address] [address] Nov, [facility] [address] [address] Nov, [facility] [address] [id number] [place] [address] [place] [address] Nov, [facility] [place] [facility] [address] [id number] [place] [address] Nov, [facility] [place] [facility] [address] [id number] [place] [address] Nov, [facility] [place] [facility] [address] [id number] [place] [address] Nov, [facility] [place] [facility] [address] [id number] [place] [address] Oct, [facility] [place] [facility] [address] [id number] [place] [address] 31 Oct, 2013 [facility] [place] [facility] [address] [id number] [place] [address] Oct, [facility] [place] [facility] [address] [id number] [place] [address] Oct, [facility] [place] [facility] [address] [id number] [place] [address] Oct, [facility] [place] [facility] [address] [id number] [place] [address] 19 Oct, 2013 [facility] [place] [facility] [address] [id number] [place] [address] Oct, [facility] [place] [facility] [address] [id number] [place] [address] Oct, [facility] [place] [facility] [address] [id number] [place] [address] 11 Oct, 2013 [facility] [place] [facility] [address] [id number] [place] [address] 04 Oct, 2013 [facility] [place] [facility] [address] [id number] [place] [address] 04 Oct, 2013 [facility] [place] [facility] [address] [id number] [place] [address] Oct, [facility] [place] [facility] [address] [id number] [place] [address] Oct, [facility] [place] [facility] [address] [id number] [place] [address] 24 Sep, 2013 [facility] [place] [facility] [address] [id number] [place] [address] 24 Sep, 2013 [facility] [place] [facility] [address] [id number] [place] [address] 20 Sep, 2013 [facility] [place] [facility] [address] [id number] [place] [address] Sep, [facility] [place] [facility] [address] [id number] [place] [address] Sep, [facility] [place] [facility] [address] [facility] [id number] [place] [address] Sep, [facility] [place] [facility] [address] [id number] [place] [address] 18 Sep, 2013 [facility] [place] [facility] [address] [id number] [place] [address] 18 Sep, 2013 [facility] [place] [facility] [address] [facility] [id number] [place] [address] 14 Sep, 2013 [facility] [place] [facility] [address] [facility] [id number] [place] [address] 14 Sep, 2013 [facility] [place] [facility] [address] [id number] [place] [address] 14 Sep, 2013 [facility] [place] [facility] [address] [id number] [place] [address] 14 Sep, 2013 [facility] [place] [facility] [address] [id number] [place] [address] 14 Sep, 2013 [facility] [place] [facility] [address] [facility] [id number] [place] [address] 14 Sep, 2013 [facility] [place] [facility] [address] [id number] [place] [address] Sep, [facility] [place] [facility] [address] [id number] [place] [address] Sep, [facility] [place] [facility] [address] [id number] [place] [address] Sep, [facility] [place] [facility] [address] [id number] [place] [address] Sep, [facility] [place] [facility] [address] [id number] [place] [address] Sep, [facility] [place] [facility] [address] [id number] [place] [address] Sep, [facility] [place] [facility] [address] [id number] [place] [address] Aug, [facility] [place] [facility] [address] [id number] [place] [address] Aug, [facility] [place] [facility] [address] [id number] [place] [address] Aug, [facility] [place] [facility] [address] [id number] [place] [address] Aug, [facility] [place] [facility] [address] [id number] [place] [address] Aug, [facility] [place] [facility] [address] [id number] [place] [address] Jul, [facility] [place] [facility] [address] [id number] [place] [address] Jul, [facility] [place] [facility] [address] [id number] [place] [address] Jul, [facility] [place] [facility] [address] [id number] [place] [address] Jul, [facility] [place] [facility] [address] [id number] [place] [address] Jul, [facility] [place] [facility] [address] [id number] [place] [address] Jul, [facility] [place] [facility] [address] [id number] [place] [address] Jul, [facility] [place] [facility] [address] [facility] [id number] [place] [address] Jul, [facility] [place] [facility] [address] [id number] [place] [address] Jul, [facility] [place] [facility] [address] [id number] [place] [address] Jun, [facility] [place] [facility] [address] [id number] [place] [address] Jun, [facility] [place] [facility] [address] [id number] [place] [address] Jun, [facility] [place] [facility] [address] [id number] [place] [address] Jun, [facility] [place] [facility] [address] [id number] [place] [address] Jun, [facility] [place] [facility] [address] [id number] [place] [address] Jun, [facility] [place] [facility] [address] [id number] [place] [address] Jun, [facility] [place] [facility] [address] [id number] [place] [address] Jun, [facility] [place] [facility] [address] [id number] [place] [address] Jun, [facility] [place] [facility] [address] [id number] [place] [address] Jun, [facility] [place] [facility] [address] [facility] [id number] [place] [address] May, [facility] [place] [facility] [address] [id number] [place] [address] May, [facility] [place] [facility] [address] [id number] [place] [address] May, [facility] [place] [facility] [address] [id number] [place] [address] May, [facility] [place] [facility] [address] [id number] [place] [address] 16 May, 2013 [facility] [place] [facility] [address] [id number] [place] [address] May, [facility] [place] [facility] [address] [id number] [place] [address] May, [facility] [place] [facility] [address] [id number] [place] [address] May, [facility] [place] [facility] [address] [id number] [place] [address] May, [facility] [place] [facility] [address] [id number] [place] [address] Apr, [facility] [place] [facility] [address] [id number] [place] [address] 16 Apr, 2013 [facility] [place] [facility] [address] [id number] [place] [address] 12 Apr, 2013 [facility] [place] [facility] [address] [id number] [place] [address] 06 Apr, 2013 [facility] [place] [facility] [address] [id number] [place] [address] 30 Mar, 2013 [facility] [place] [facility] [address] [id number] [place] [address] Mar, [facility] [place] [facility] [address] [id number] [place] [address] Mar, [facility] [place] [facility] [address] [id number] [place] [address] Mar, [facility] [place] [facility] [address] [id number] [place] [address] Mar, [facility] [address] [id number] [place] [address] Mar, [facility] [address] [id number] [place] [address] Mar, [facility] [address] [id number] [place] [address] Feb, [facility] [address] [id number] [place] [address] Feb, [facility] [address] [id number] [place] [address] Feb, [facility] [address] [id number] [place] [address] Feb, [facility] [address] [id number] [place] [address] Feb, [facility] [address] [id number] [place] [address] Feb, [facility] [address] [id number] [place] [address] Feb, [facility] [address] [id number] [place] [address] Feb, [facility] [place] [facility] [address] [id number] [place] [address] Feb, [facility] [place] [facility] [address] [id number] [place] [address] Feb, [facility] [place] [facility] [address] [id number] [place] [address] Feb, [facility] [place] [facility] [address] [id number] [place] [address] Jan, [facility] [place] [facility] [address] [id number] [place] [address] Jan, [facility] [address] [id number] [place] [address] December, [facility] [address] [id number] [place] [address] December, [facility] [address] [id number] [place] [address] Nov, [facility] [address] [id number] [place] [address] Nov, [facility] [address] [id number] [place] [address] Oct, [facility] [address] [id number] [place] [address] Oct, [facility] [address] [id number] [place] [address] Oct, [facility] [address] [id number] [place] [address] Oct, [facility] [address] [id number] [place] [address] Sep, [facility] [address] [id number] [place] [address] Sep, [facility] [address] [id number] [place] [address] Sep, [facility] [address] [id number] [place] [address] Sep, [facility] [address] [id number] [place] [address] Aug, [facility] [place] [facility] [address] [id number] [place] [address] Aug, [facility] [address] [facility] [id number] [place] [address] Jul, [facility] [place] [facility] [address] [id number] [place] [address] Jul, [facility] [place] [facility] [address] [id number] [place] [address] Jul, [facility] [place] [facility] [address] [id number] [place] [address] Jul, [facility] [facility] [address] [id number] [place] [address] Jul, [facility] [place] [facility] [address] [id number] [place] [address] Jul, [facility] [place] [facility] [address] [id number] [place] [address] Jun, [facility] [place] [facility] [address] [id number] [place] [address] Jun, [facility] [place] [facility] [address] [id number] [place] [address] Jun, [facility] [place] [facility] [address] [id number] [place] [address] Jun, [facility] [place] [facility] [address] [id number] [place] [address] Jun, [facility] [place] [facility] [address] [id number] [place] [address] May, [facility] [place] [facility] [address] [id number] [place] [address] May, [facility] [place] [facility] [address] [id number] [place] [address] May, [facility] [place] [facility] [address] [id number] [place] [address] May, [facility] [place] [facility] [address] [id number] [place] [address] May, [facility] [place] [facility] [address] [id number] [place] [address] May, [facility] [place] [facility] [address] [id number] [place] [address] May, [facility] [place] [facility] [address] [id number] [place] [address] May, [facility] [place] [facility] [address] [id number] [place] [address] Mar, [facility] [place] [facility] [address] [id number] [place] [address] Mar, [facility] [place] [facility] [address] [id number] [place] [address] Mar, [facility] [place] [facility] [address] [id number] [place] [address] Feb, [facility] [place] [facility] [address] [id number] [place] [address] Feb, [facility] [place] [facility] [address] [id number] [place] [address] Feb, [facility] [place] [facility] [address] [id number] [place] [address] Feb, [facility] [place] [facility] [address] [id number] [place] [address] Jan, [facility] [place] [facility] [address] [id number] [place] [address] Jan, [facility] [place] [facility] [address] [id number] [place] [address] Jan, [facility] [place] [facility] [address] [id number] [place] [address] December, [facility] [place] [facility] [address] [id number] [place] [address] Nov, [facility] [place] [facility] [address] [id number] [place] [address] Oct, [facility] [place] [facility] [address] [id number] [place] [address] Oct, [facility] [address] [id number] [place] [address] Oct, [facility] [place] [facility] [address] [id number] [place] [address] Oct, [facility] [address] [id number] [place] [address] Aug, [facility] [place] [facility] [address] [id number] [place] [address] Aug, [facility] [address] [id number] [place] [address] Aug, [facility] [address] [id number] [place] [address] Aug, [facility] [address] [id number] [place] [address] Aug, [facility] [address] [id number] [place] [address] Aug, [facility] [address] [id number] [place] [address] Aug, [facility] [address] [id number] [place] [address] Aug, [facility] [address] [id number] [place] [address] Jul, [facility] [address] [id number] [place] [address] Jun, [facility] [place] [facility] [address] [id number] [place] [address] Jun, [facility] [address] [id number] [place] [address] Jul, [facility] [facility] [address] [id number] [place] [address] Jul, [facility] [address] [id number] [place] [address] Jul, [facility] [address] [id number] [place] [address] 14 Jul, 2010 [facility] [address] [id number] [place] [address] 14 Jul, 2010 [facility] [address] [id number] [place] [address] Jun, [facility] [address] [id number] [place] [address] May, [facility] [address] [id number] [place] [address] Mar, [facility] [address] [id number] [place] [address] Oct, [facility] [address] [id number] [place] [address] Aug, [facility] [address] [id number] [place] [address] 15 Jul, 2009 [facility] [address] [id number] [place] [address] Jul, [facility] [address] [id number] [place] [address] Jun, [facility] [address] [id number] [place] [address] Jun, [facility] [address] [id number] [place] [address] May, [facility] [address] [id number] [place] [address] May, [facility] [address] [id number] [place] [address] Mar, [facility] [address] [id number] [place] [address] Mar, [facility] [address] [facility] [id number] [place] [address] Oct, IMMUNIZATIONS No Known Immunizations SOCIAL HISTORY Never Assessed REASON FOR VISIT EMR-[facility] PLAN OF CARE VITAL SIGNS [...] disc replacement L1- L5 - Dr Muhammad ([place]) Surgical History appendectomy 1983 Surgical History hysterectomy 1993 Surgical History dilatation and curettage Surgical History heart cath- Dr Shaw [address] Solano bowel and intestines sep2015 Surgical History Dr solano removed skin tag and cyst 2017 Hospitalization History Hospitalization for surgery only
--- OUTSIDE RECORDS SUMMARY | 2019-01-03 13:56 | XMS REPORT ---
Author Author RAUL VASQUEZ Organization [facility] Address [address] [place] [address] Care Team Providers Care Evs Manager Name Role Phone VASQUEZ CARTER Unavailable PROBLEMS Type Condition ICD9-CM Code VHD75-UM Code Onset Dates Condition Status SNOMED Code Problem PTSD (post-traumatic stress disorder) F43.10 Active 01493998 Problem Alcohol use disorder, mild, in sustained remission F10.11 Active 83074546 Problem Tobacco use Z72.0 Active 408831834 Problem Acute pain of left shoulder M25.512 Active 08109080 Problem Cigarette nicotine dependence without complication F17.210 Active 28981542 Problem Methamphetamine use disorder, severe, 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 Active 95777036 Problem Opioid use disorder, moderate, in sustained remission F11.21 Active 74113209 Problem GERD with esophagitis K21.0 Active 738905234 Problem Cocaine use disorder, moderate, in sustained remission F14.21 Active 84043475 Problem Mixed hyperlipidemia E78.2 Active 040708705 Problem Major depressive disorder, recurrent episode, moderate F33.1 Active 942780321 Problem Generalized anxiety disorder F41.1 Active 43262359 Problem Prediabetes 790.29 Active 7454495 Problem Cannabis abuse F12.10 Active 44581886 ALLERGIES No Information ENCOUNTERS Encounter Location Date Diagnosis [facility] [address] [facility] [id number] [id number] Aug, [facility] [id number], [place] [address] Aug, [facility] [address] [id number], [place] [address] Jul, Major depressive disorder, recurrent episode, moderate F33.1 [facility] [address] [id number], [place] [address] Jun, Major depressive disorder, recurrent episode, moderate F33.1 [facility] [id number] [place] [address] Jun, Major depressive disorder, recurrent episode, moderate F33.1 [facility] [id number] [place] [address] Jun, Acute pain of left shoulder M25.512 and Cigarette nicotine dependence without complication F17.210 [facility] [address] [address] May, [facility] [address] [address] May, Cocaine use disorder, moderate, in sustained remission F14.21 [facility] [id number] [place] [address] May, [address] [place] [address] May, Dental examination Z01.20 [facility] [address] [id number] May, Dental examination Z01.20 and Caries K02.9 [place] [address] [address] May, Common wart B07.8 [facility] [id number] [place] [address] May, [facility] [id number] [place] [address] Apr, Cocaine use disorder, moderate, in sustained remission F14.21 [facility] [id number] [place] [address] 14 Apr, 2018 [facility] [address] [id number] Apr, 2018 Dental examination Z01.20 [facility] [address] [id number] Mar, Encounter for dental exam and cleaning w/o abnormal findings Z01.20 [place] [id number] [place] [address] Mar, [facility] [id number] [place] [address] Feb, Cocaine use disorder, moderate, in sustained [...] disorder, recurrent episode, moderate F33.1 [facility] [id number] [place] [address] Jan, Cocaine use disorder, moderate, in sustained remission F14.21 [facility] [id number] [place] [address] Jan, Cocaine use disorder, moderate, in sustained [...] disorder, recurrent episode, moderate F33.1 [place] [id number] [place] [address] Jan, Dysuria R30.0 and GERD with esophagitis K21.0 [facility] [id number] [place] [address] December, Major depressive disorder, recurrent episode, moderate F33.1 [facility] [id number] [place] [address] December, [facility] [id number] [place] [address] December, Major depressive disorder, recurrent episode, moderate [...] Z72.0 [facility] [id number] [place] [address] Nov, [facility] [address] [place] [address] Nov, [place] [id number] [place] [address] Nov, Wellness examination Z00.00 ; Encounter for immunization Z23 ; Screening for osteoporosis Z13.820 ; Screening for breast cancer Z12.31 and Left breast lump N63.20 [facility] [id number] [place] [id number] Oct, Dental examination Z01.20 [facility] [id number] [place] [address] Oct, [place] [id number] [place] [address] Oct, [facility] [id number] [place] [address] 16 Sep, 2017 [facility] [id number] [place] [address] Sep, [facility] [id number] [place] [address] 14 Sep, 2017 Left otitis media with effusion H65.92 ; Acute suppurative otitis media of right ear without spontaneous rupture of tympanic membrane, recurrence not specified H66.001 ; Dizziness R42 and Fatigue 780.79 [place] [address], [place] [address] Aug, Major depressive disorder, recurrent episode, moderate [...] F10.11 and Tobacco use Z72.0 [facility] [id number] [place] [address] Aug, Ingrown right big toenail L60.0 [facility] [id number] [place] [address] Aug, [facility] [id number] [place] [address] Aug, PTSD (post-traumatic stress disorder) F43.10 [facility] [id number] [place] [address] Aug, Major depressive disorder, recurrent episode, moderate F33.1 ; Generalized anxiety disorder F41.1 and Cannabis abuse F12.10 [facility] [id number] [place] [address] Jul, [facility] [id number] [place] [address] Jul, [facility] [id number] [place] [address] Jul, [facility] [id number] [place] [address] Jul, Major depressive disorder, recurrent episode, moderate F33.1 ; Generalized anxiety disorder F41.1 and Cannabis abuse F12.10 [facility] [id number] [place] [address] Jul, [place] [address], [place] [address] Jul, [place] [id number] [place] [address] Jul, Hyperlipidemia 272.4 [place] [id number] [place] [address] Jul, PTSD (post-traumatic stress disorder) F43.10 [place] [id number] [place] [address] Jul, Tobacco use Z72.0 ; Alcohol use disorder, mild, in sustained remission F10.11 ; Opioid use disorder, moderate, in sustained remission F11.21 ; Methamphetamine use disorder, severe, 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 ; Cocaine use disorder, moderate, in sustained remission F14.21 ; PTSD (post-traumatic stress disorder) F43.10 ; Major depressive disorder, recurrent episode, moderate F33.1 ; Generalized anxiety disorder F41.1 and Cannabis abuse F12.10 [place] [id number] [place] [address] Jul, [id number] [place] [address] Jul, Dysuria R30.0 and Mixed hyperlipidemia E78.[id number] [place] [address] Jun, Major depressive disorder, recurrent episode, moderate F33.1 ; Generalized anxiety disorder F41.1 and Cannabis abuse F12.10 [place] [address], [place] [address] Jun, [place] [id number] [place] [address] Jun, Generalized anxiety disorder F41.1 ; Major depressive disorder, recurrent episode, moderate F33.1 ; PTSD (post-traumatic stress disorder) F43.10 ; Opioid use disorder, moderate, in sustained remission F11.21 ; Cannabis abuse F12.10 ; Alcohol use disorder, mild, in sustained remission F10.11 ; Methamphetamine use disorder, severe, 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 ; Cocaine use disorder, moderate, in sustained remission F14.21 and Tobacco use Z72.0 [place] [id number] [place] [address] Jun, Major depressive disorder, recurrent episode, moderate F33.1 ; Generalized anxiety disorder F41.1 and Cannabis abuse F12.10 [place] [id number] [place] [address] Jun, [place] [id number] [place] [address] Jun, [place] [id number] [place] [address] Jun, Major depressive disorder, recurrent episode, moderate F33.1 ; Generalized anxiety disorder F41.1 and Cannabis abuse F12.10 [facility] [address] [id number] Mar, Dental examination Z01.20 [facility] [address] [id number] Feb, Dental examination Z01.20 [place] [id number] [place] [address] Mar, [place] [id number] [place] [address] Mar, [place] [id number] [place] [address] Feb, Hyperlipidemia 272.4 and Prediabetes 790.29 [place] [id number] [place] [address] Feb, Fatigue 780.79 and Hyperlipidemia 272.4 [place] [id number] [place] [address] 08 Feb, 2015 Lumbago 724.2 ; Hyperlipidemia 272.4 ; Insomnia 780.52 and Fatigue 780.79 [place] [address] [id number] [place] [address] Nov, [facility] [place] [facility] [address] [id number] [place] [address] Nov, [facility] [place] [facility] [address] [id number] [place] [address] Mar, [facility] [place] [facility] [address] [id number] [place] [address] Mar, [facility] [place] [facility] [address] [id number] [place] [address] Jan, [facility] [place] [facility] [address] [id number] [place] [address] Jan, [facility] [place] [facility] [address] [id number] [place] [address] December, [facility] [place] [facility] [address] [id number] [place] [address] December, [facility] [place] [facility] [address] [id number] [place] [address] Nov, [facility] [place] [facility] [address] [id number] [place] [address] Nov, [facility] [place] [facility] [address] [id number] [place] [address] Nov, [facility] [place] [facility] [address] [id number] [place] [address] Nov, [facility] [place] [facility] [address] [id number] [place] [address] Nov, [facility] [place] [facility] [address] [id number] [place] [address] Nov, [facility] [place] [facility] [address] [id number] [place] [address] Oct, [facility] [place] [facility] [address] [id number] [place] [address] Oct, 2013 [facility] [place] [facility] [address] [id number] [place] [address] Oct, [facility] [place] [facility] [address] [id number] [place] [address] Oct, [facility] [place] [facility] [address] [id number] [place] [address] Oct, [facility] [place] [facility] [address] [id number] [place] [address] Oct, [facility] [place] [facility] [address] [id number] [place] [address] Oct, [facility] [place] [facility] [address] [id number] [place] [address] Oct, [facility] [place] [facility] [address] [id number] [place] [address] Oct, [facility] [place] [facility] [address] [id number] [place] [address] Oct, [facility] [place] [facility] [address] [id number] [place] [address] Oct, [facility] [place] [facility] [address] [id number] [place] [address] Oct, [facility] [place] [facility] [address] [id number] [place] [address] Oct, [facility] [place] [facility] [address] [id number] [place] [address] Sep, [facility] [place] [facility] [address] [id number] [place] [address] Sep, [facility] [place] [facility] [address] [id number] [place] [address] Sep, [facility] [place] [facility] [address] [id number] [place] [address] Sep, [facility] [place] [facility] [address] [id number] [place] [address] 20 Sep, 2013 [facility] [place] [facility] [address] [id number] [place] [address] 20 Sep, 2013 [facility] [place] [facility] [address] [id number] [place] [address] 18 Sep, 2013 [facility] [place] [facility] [address] [id number] [place] [address] 18 Sep, 2013 [facility] [place] [facility] [address] [id number] [place] [address] 14 Sep, 2013 [facility] [place] [facility] [address] [id number] [place] [address] 14 Sep, 2013 [facility] [place] [facility] [address] [facility] [id number] [place] [address] 14 Sep, 2013 [facility] [place] [facility] [address] [id number] [place] [address] 14 Sep, 2013 [facility] [place] [facility] [address] [id number] [place] [address] 14 Sep, 2013 [facility] [place] [facility] [address] [facility] [id number] [place] [address] 14 Sep, 2013 [facility] [place] [facility] [address] [facility] [id number] [place] [address] 13 Sep, 2013 [facility] [place] [facility] [address] [id number] [place] [address] 13 Sep, 2013 [facility] [place] [facility] [address] [id number] [place] [address] 12 Sep, 2013 [facility] [place] [facility] [address] [id number] [place] [address] 12 Sep, 2013 [facility] [place] [facility] [address] [facility] [id number] [place] [address] 03 Sep, 2013 [facility] [place] [facility] [address] [id number] [place] [address] Sep, [facility] [address] [id number] [place] [address] Aug, [facility] [address] [id number] [place] [address] Aug, [facility] [address] [id number] [place] [address] Aug, [facility] [address] [id number] [place] [address] Aug, [facility] [address] [id number] [place] [address] Aug, [facility] [address] [id number] [place] [address] Jul, [facility] [address] [id number] [place] [address] Jul, [facility] [address] [id number] [place] [address] Jul, [facility] [address] [id number] [place] [address] Jul, [facility] [address] [facility] [id number] [place] [address] Jul, [facility] [place] [facility] [address] [id number] [place] [address] Jul, [facility] [place] [facility] [address] [id number] [place] [address] Jul, [facility] [place] [facility] [address] [id number] [place] [address] Jul, [facility] [place] [facility] [address] [id number] [place] [address] Jul, [facility] [place] [facility] [address] [id number] [place] [address] Jun, [facility] [place] [facility] [address] [id number] [place] [address] Jun, [facility] [place] [facility] [address] [id number] [place] [address] Jun, [facility] [place] [facility] [address] [id number] [place] [address] Jun, [facility] [place] [facility] [address] [id number] [place] [address] Jun, [facility] [place] [facility] [address] [id number] [place] [address] Jun, [facility] [place] [facility] [address] [id number] [place] [address] Jun, [facility] [place] [facility] [address] [id number] [place] [address] Jun, [facility] [place] [facility] [address] [id number] [place] [address] Jun, [facility] [place] [facility] [address] [id number] [place] [address] Jun, [facility] [place] [facility] [address] [id number] [place] [address] May, [facility] [place] [facility] [address] [id number] [place] [address] May, [facility] [place] [facility] [address] [id number], [place] [address] May, [facility] [place] [facility] [address] [id number] [place] [address] May, [facility] [place] [facility] [address] [id number] [place] [address] 16 May, 2013 [facility] [place] [facility] [address] [id number], [place] [address] 11 May, 2013 [facility] [place] [facility] [address] [id number], [place] [address] May, [facility] [place] [facility] [address] [id number] [place] [address] May, [facility] [place] [facility] [address] [id number] [place] [address] May, [facility] [place] [facility] [address] [id number] [place] [address] Apr, [facility] [place] [facility] [address] [id number] [place] [address] 16 Apr, 2013 [facility] [place] [facility] [address] [id number] [place] [address] Apr, [facility] [place] [facility] [address] [id number] [place] [address] Apr, [facility] [place] [facility] [address] [id number] [place] [address] Mar, [facility] [place] [facility] [address] [id number] [place] [address] Mar, [facility] [place] [facility] [address] [id number] [place] [address] Mar, [facility] [place] [facility] [address] [id number] [place] [address] Mar, [facility] [place] [facility] [address] [id number] [place] [address] Mar, [facility] [place] [facility] [address] [id number] [place] [address] Mar, [facility] [place] [facility] [address] [id number] [place] [address] Mar, [facility] [place] [facility] [address] [id number] [place] [address] Feb, [facility] [place] [facility] [address] [id number] [place] [address] Feb, [facility] [place] [facility] [address] [id number] [place] [address] Feb, [facility] [address] [id number] [place] [address] Feb, [facility] [address] [id number] [place] [address] Feb, [facility] [address] [id number] [place] [address] Feb, [facility] [address] [id number] [place] [address] Feb, [facility] [address] [id number] [place] [address] Feb, [facility] [address] [id number] [place] [address] Feb, [facility] [address] [id number] [place] [address] Feb, [facility] [address] [id number] [place] [address] Feb, [facility] [address] [id number] [place] [address] Jan, [facility] [address] [id number] [place] [address] Jan, [facility] [address] [id number] [place] [address] December, [facility] [address] [id number] [place] [address] December, [facility] [address] [id number] [place] [address] Nov, [facility] [address] [id number] [place] [address] Nov, [facility] [address] [id number] [place] [address] Oct, [facility] [address] [id number] [place] [address] Oct, [facility] [place] [facility] [address] [id number] [place] [address] Oct, [facility] [place] [facility] [address] [id number] [place] [address] Oct, [facility] [place] [facility] [address] [id number] [place] [address] Sep, [facility] [place] [facility] [address] [id number] [place] [address] Sep, [facility] [place] [facility] [address] [id number] [place] [address] Sep, [facility] [place] [facility] [address] [id number] [place] [address] Sep, [facility] [place] [facility] [address] [id number] [place] [address] Aug, [facility] [place] [facility] [address] [id number] [place] [address] Aug, [facility] [place] [facility] [address] [id number] [place] [address] Jul, [facility] [place] [facility] [address] [id number] [place] [address] Jul, [facility] [place] [facility] [address] [id number] [place] [address] Jul, [facility] [place] [facility] [address] [id number] [place] [address] Jul, [facility] [place] [facility] [address] [id number] [place] [address] Jul, [facility] [place] [facility] [address] [id number] [place] [address] Jul, [facility] [place] [facility] [address] [id number] [place] [address] Jun, [facility] [place] [facility] [address] [id number] [place] [address] Jun, [facility] [place] [facility] [address] [id number] [place] [address] Jun, [facility] [place] [facility] [address] [id number] [place] [address] Jun, [facility] [place] [facility] [address] [id number] [place] [address] Jun, [facility] [place] [facility] [address] [id number] [place] [address] May, [facility] [place] [facility] [address] [id number] [place] [address] May, [facility] [place] [facility] [address] [id number] [place] [address] May, [facility] [place] [facility] [address] [id number] [place] [address] May, [facility] [place] [facility] [address] [id number] [place] [address] May, [facility] [place] [facility] [address] [id number] [place] [address] May, [facility] [place] [facility] [address] [id number] [place] [address] May, [facility] [place] [facility] [address] [id number] [place] [address] May, [facility] [place] [facility] [address] [id number] [place] [address] Mar, [facility] [place] [facility] [address] [id number] [place] [address] Mar, [facility] [place] [facility] [address] [address] [id number] [place] [address] Mar, [facility] [place] [facility] [address] [id number] [place] [address] Feb, [facility] [place] [facility] [address] [id number] [place] [address] Feb, [facility] [place] [facility] [address] [id number] [place] [address] Feb, [facility] [place] [facility] [address] [id number] [place] [address] Feb, [facility] [address] [id number] [place] [address] Jan, [facility] [place] [facility] [address] [id number] [place] [address] Jan, [facility] [address] [id number] [place] [address] Jan, [facility] [address] [id number] [place] [address] December, [facility] [place] [facility] [address] [id number] [place] [address] Nov, [facility] [place] [facility] [address] [id number] [place] [address] Oct, [facility] [place] [facility] [address] [id number] [place] [address] Oct, [facility] [place] [facility] [address] [id number] [place] [address] Oct, [facility] [place] [facility] [address] [id number] [place] [address] Oct, [facility] [place] [facility] [address] [id number] [place] [address] Aug, [facility] [place] [facility] [address] [id number] [place] [address] Aug, [facility] [place] [facility] [address] [id number] [place] [address] Aug, [facility] [address] [id number] [place] [address] Aug, [facility] [place] [facility] [address] [id number] [place] [address] Aug, [facility] [place] [facility] [address] [id number] [place] [address] Aug, [facility] [place] [facility] [address] [id number] [place] [address] Aug, [facility] [place] [facility] [address] [id number] [place] [address] Aug, [facility] [place] [facility] [address] [id number] [place] [address] Jul, [facility] [place] [facility] [address] [id number] [place] [address] Jun, [facility] [place] [facility] [address] [id number] [place] [address] 29 Jun, 2011 [facility] [place] [facility] [address] [id number] [place] [address] 31 Jul, 2010 [facility] [place] [facility] [address] [id number] [place] [address] Jul, [facility] [place] [facility] [address] [id number] [place] [address] 22 Jul, 2010 [facility] [place] [facility] [address] [id number] [place] [address] 14 Jul, 2010 [facility] [place] [facility] [address] [id number] [place] [address] 14 Jul, 2010 [facility] [place] [facility] [address] [id number] [place] [address] 24 Jun, 2010 [facility] [place] [facility] [address] [id number] [place] [address] May, [facility] [place] [facility] [id number] [place] [address] 11 Mar, 2010 [facility] [id number] [place] [address] Oct, [facility] [id number], [place] [address] Aug, [facility] [id number] [place] [address] Jul, [facility] [id number] [place] [address] Jul, [facility] [id number] [place] [address] Jun, [facility] [id number] [place] [address] Jun, [facility] [id number] [place] [address] May, [facility] [id number] [place] [address] May, [facility] [id number] [place] [address] Mar, [facility] [id number] [place] [address] Mar, [facility] [id number] [place] [address] Oct, IMMUNIZATIONS No Known Immunizations SOCIAL HISTORY Never Assessed REASON FOR VISIT F\U Holley mccord ma, contract and PDM PLAN OF CARE Activity Details Follow Up 6 Weeks Reason: VITAL SIGNS Height 68 in 2018-07-02 Weight 201.5 lbs 2018-07-02 Heart Rate 105 bpm 2018-07-02 Respiratory Rate 20 2018-07-02 BMI 30.63 kg/m2 2018-07-02 Blood pressure systolic 134 mmHg 2018-07-02 Blood pressure diastolic 72 mmHg 2018-07-02 MEDICATIONS Medication Instructions Dosage Frequency Start Date End Date Duration Status Effexor XR 37.5 MG Orally Once a day 1 capsule with food 24h Jan, 30 days Not-Taking Protonix 40 MG Orally Once a day 1 tablet 24h 30 Not-Taking Diclofenac Sodium ER 100 mg Orally Once a day 1 tablet with food or milk 24h Jun, Oct, 30 day(s) Not-Taking Magic Mouthwash Apply medicated swab to sore areas of the mouth to numb the pain As needed Dip cotton swab into medication May, As needed Not-Taking Xanax 1 mg Orally three times a day 1 tablet 8h Active Wellbutrin SR 150 MG Orally Once a day 1 tablet in the morning 24h Jun, 30 day(s) Not-Taking Trazodone HCl 100 MG Orally Once a day 1 tablet at bedtime 24h Feb, Not-Taking Amoxicillin 500 MG Orally 4 times a day 2 capsules stat and then take 1 capsule 6h May, 10 days Not-Taking RESULTS No Results PROCEDURES No Known procedures [...]
--- OUTSIDE RECORDS SUMMARY | 2019-01-03 13:56 | XMS REPORT ---
Author Author RAUL VASQUEZ Organization [facility] Address [address] [place] [address] Care Team Providers Care Retail Sales Lead Name Role Phone VASQUEZ CARTER Unavailable PROBLEMS Type Condition ICD9-CM Code ZNU12-FH Code Onset Dates Condition Status SNOMED Code Problem PTSD (post-traumatic stress disorder) F43.10 Active 20907696 Problem Alcohol use disorder, mild, in sustained remission F10.11 Active 62518307 Problem Tobacco use Z72.0 Active 065395252 Problem Acute pain of left shoulder M25.512 Active 81223112 Problem Cigarette nicotine dependence without complication F17.210 Active 33243328 Problem Methamphetamine use disorder, severe, 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 Active 24246034 Problem Opioid use disorder, moderate, in sustained remission F11.21 Active 95814776 Problem GERD with esophagitis K21.0 Active 244810159 Problem Cocaine use disorder, moderate, in sustained remission F14.21 Active 19842882 Problem Mixed hyperlipidemia E78.2 Active 497037254 Problem Major depressive disorder, recurrent episode, moderate F33.1 Active 623971561 Problem Generalized anxiety disorder F41.1 Active 24117766 Problem Prediabetes 790.29 Active 1048050 Problem Cannabis abuse F12.10 Active 58974378 ALLERGIES No Information ENCOUNTERS Encounter Location Date Diagnosis [facility] [address] [facility] [id number] [id number] Aug, [facility] [address] [id number] [address] Aug, [facility] [address] [id number] [address] Jul, Major depressive disorder, recurrent episode, moderate F33.1 [facility] [address] [id number] [address] Jun, Major depressive disorder, recurrent episode, moderate F33.1 [facility] [id number] [place] [address] Jun, Major depressive disorder, recurrent episode, moderate F33.1 [facility] [id number] [place] [address] Jun, Acute pain of left shoulder M25.512 and Cigarette nicotine dependence without complication F17.210 [facility] [address] [address] May, [facility] [address] [address] May, Cocaine use disorder, moderate, in sustained remission F14.21 [place] [id number] [place] [address] May, [address] [place] [address] May, Dental examination Z01.20 [facility] [address] [id number] May, Dental examination Z01.20 and Caries K02.9 [place] [address] [address] May, Common wart B07.8 [place] [id number] [place] [address] May, [facility] [id number] [place] [address] Apr, Cocaine use disorder, moderate, in sustained remission F14.21 [facility] [id number] [place] [address] 14 Apr, 2018 [facility] [address] [id number] 13 Apr, 2018 Dental examination Z01.20 [facility] [address] [id number] Mar, Encounter for dental exam and cleaning w/o abnormal findings Z01.20 [place] [id number] [place] [address] Mar, [place] [id number] [place] [address] Feb, Cocaine use disorder, moderate, in sustained [...] disorder, recurrent episode, moderate F33.1 [place] [id number] [place] [address] Jan, Cocaine use disorder, moderate, in sustained remission F14.21 [place] [id number] [place] [address] Jan, Cocaine use disorder, moderate, in sustained [...] disorder, recurrent episode, moderate F33.1 [place] [id number] [place] [address] Jan, Dysuria R30.0 and GERD with esophagitis K21.0 [place] [id number] [place] [address] December, Major depressive disorder, recurrent episode, moderate F33.1 [place] [id number] [place] [address] December, [place] [id number] [place] [address] December, Major depressive disorder, recurrent episode, moderate F33.1 ; Generalized anxiety disorder F41.1 ; Cannabis abuse F12.10 ; PTSD (post-traumatic stress disorder) F43.10 ; Methamphetamine use disorder, severe, 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 ; Cocaine use disorder, moderate, in sustained remission F14.21 ; Opioid use disorder, moderate, in sustained remission F11.21 ; Alcohol use disorder, mild, in sustained remission F10.11 and Tobacco use Z72.0 [facility] [id number] [place] [address] Nov, [facility] [address] [place] [address] Nov, [place] [id number] [place] [address] Nov, Wellness examination Z00.00 ; Encounter for immunization Z23 ; Screening for osteoporosis Z13.820 ; Screening for breast cancer Z12.31 and Left breast lump N63.20 [facility] [id number] [place] [id number] Oct, Dental examination Z01.20 [place] [id number] [place] [address] Oct, [place] [id number] [place] [address] Oct, [place] [id number] [place] [address] 16 Sep, 2017 [place] [id number] [place] [address] Sep, [place] [id number] [place] [address] 14 Sep, 2017 Left otitis media with effusion H65.92 ; Acute suppurative otitis media of right ear without spontaneous rupture of tympanic membrane, recurrence not specified H66.001 ; Dizziness R42 and Fatigue 780.79 [place] [address] [address] Aug, Major depressive disorder, recurrent episode, moderate [...] Tobacco use Z72.0 [facility] [address] [place] [address] Aug, Ingrown right big toenail L60.0 [facility] [id number] [place] [address] Aug, [facility] [id number] [place] [address] Aug, PTSD (post-traumatic stress disorder) F43.10 [facility] [id number] [place] [address] Aug, Major depressive disorder, recurrent episode, moderate F33.1 ; Generalized anxiety disorder F41.1 and Cannabis abuse F12.10 [facility] [id number] [place] [address] Jul, [facility] [id number] [place] [address] Jul, [facility] [id number] [place] [address] Jul, [facility] [id number] [place] [address] Jul, Major depressive disorder, recurrent episode, moderate F33.1 ; Generalized anxiety disorder F41.1 and Cannabis abuse F12.10 [facility] [id number] [place] [address] Jul, [facility] [address] [address] Jul, [place] [id number] [place] [address] Jul, Hyperlipidemia 272.4 [place] [id number] [place] [address] Jul, PTSD (post-traumatic stress disorder) F43.10 [place] [id number] [place] [address] Jul, Tobacco use Z72.0 ; Alcohol use [...] F41.1 and Cannabis abuse F12.10 [place] [address] [place] [address] Jul, [id number] [place] [address] Jul, Dysuria R30.0 and Mixed hyperlipidemia E78.2 [address] [place] [address] Jun, Major depressive disorder, recurrent episode, moderate F33.1 ; Generalized anxiety disorder F41.1 and Cannabis abuse F12.10 [place] [address] [address] Jun, [id number] [place] [address] Jun, Generalized anxiety disorder F41.1 ; Major [...] F14.21 and Tobacco use Z72.0 [place] [id number] [place] [address] Jun, Major depressive disorder, recurrent episode, moderate F33.1 ; Generalized anxiety disorder F41.1 and Cannabis abuse F12.10 [place] [id number] [place] [address] Jun, [place] [id number] [place] [address] Jun, [place] [id number] [place] [address] Jun, Major depressive disorder, recurrent episode, moderate F33.1 ; Generalized anxiety disorder F41.1 and Cannabis abuse F12.10 [facility] [address] [id number] Mar, Dental examination Z01.20 [facility] [address] [id number] Feb, Dental examination Z01.20 [place] [id number] [place] [address] Mar, [place] [id number] [place] [address] Mar, [place] [id number] [place] [address] Feb, Hyperlipidemia 272.4 and Prediabetes 790.29 [address] [address] [id number] [place] [address] Feb, Fatigue 780.79 and Hyperlipidemia 272.4 [place] [id number] [place] [address] 08 Feb, 2015 Lumbago 724.2 ; Hyperlipidemia 272.4 ; Insomnia 780.52 and Fatigue 780.79 [place] [address] [id number] [place] [address] Nov, [facility] [place] [facility] [address] [id number] [place] [address] Nov, [facility] [place] [facility] [address] [id number] [place] [address] Mar, [facility] [place] [facility] [address] [id number] [place] [address] Mar, [facility] [place] [facility] [address] [id number] [place] [address] Jan, [facility] [place] [facility] [address] [id number] [place] [address] Jan, [facility] [place] [facility] [address] [id number] [place] [address] December, [facility] [place] [facility] [address] [id number] [place] [address] December, [facility] [place] [facility] [address] [id number] [place] [address] Nov, [facility] [place] [facility] [address] [id number] [place] [address] Nov, [facility] [place] [facility] [address] [id number] [place] [address] Nov, [facility] [place] [facility] [address] [id number] [place] [address] Nov, [facility] [place] [facility] [address] [id number] [place] [address] Nov, [facility] [place] [facility] [address] [id number] [place] [address] Nov, [facility] [place] [facility] [address] [id number] [place] [address] Oct, [facility] [place] [facility] [address] [id number] [place] [address] Oct, 2013 [facility] [place] [facility] [address] [id number] [place] [address] Oct, [facility] [place] [facility] [address] [id number] [place] [address] Oct, [facility] [place] [facility] [address] [id number] [place] [address] Oct, [facility] [place] [facility] [address] [id number] [place] [address] Oct, [facility] [place] [facility] [address] [id number] [place] [address] Oct, [facility] [place] [facility] [address] [id number] [place] [address] Oct, [facility] [place] [facility] [address] [id number] [place] [address] Oct, [facility] [place] [facility] [address] [id number] [place] [address] Oct, [facility] [place] [facility] [address] [id number] [place] [address] Oct, [facility] [place] [facility] [address] [id number] [place] [address] Oct, [facility] [place] [facility] [address] [id number] [place] [address] Oct, [facility] [place] [facility] [address] [id number] [place] [address] Sep, [facility] [place] [facility] [address] [id number] [place] [address] Sep, [facility] [place] [facility] [address] [id number] [place] [address] Sep, [facility] [place] [facility] [address] [id number] [place] [address] Sep, [facility] [place] [facility] [address] [id number] [place] [address] 20 Sep, 2013 [facility] [place] [facility] [address] [id number] [place] [address] 20 Sep, 2013 [facility] [place] [facility] [address] [id number] [place] [address] 18 Sep, 2013 [facility] [place] [facility] [address] [id number] [place] [address] 18 Sep, 2013 [facility] [place] [facility] [address] [id number] [place] [address] 14 Sep, 2013 [facility] [place] [facility] [address] [id number] [place] [address] 14 Sep, 2013 [facility] [place] [facility] [address] [facility] [id number] [place] [address] 14 Sep, 2013 [facility] [place] [facility] [address] [id number] [place] [address] 14 Sep, 2013 [facility] [place] [facility] [address] [id number] [place] [address] 14 Sep, 2013 [facility] [place] [facility] [address] [facility] [id number] [place] [address] 14 Sep, 2013 [facility] [place] [facility] [address] [facility] [id number] [place] [address] 13 Sep, 2013 [facility] [place] [facility] [address] [id number] [place] [address] 13 Sep, 2013 [facility] [place] [facility] [address] [id number] [place] [address] 12 Sep, 2013 [facility] [place] [facility] [address] [id number] [place] [address] 12 Sep, 2013 [facility] [place] [facility] [address] [facility] [id number] [place] [address] 03 Sep, 2013 [facility] [place] [facility] [address] [id number] [place] [address] Sep, [facility] [address] [id number] [place] [address] Aug, [facility] [address] [id number] [place] [address] Aug, [facility] [address] [id number] [place] [address] Aug, [facility] [address] [id number] [place] [address] Aug, [facility] [address] [id number] [place] [address] Aug, [facility] [address] [id number] [place] [address] Jul, [facility] [address] [id number] [place] [address] Jul, [facility] [address] [id number] [place] [address] Jul, [facility] [address] [id number] [place] [address] Jul, [facility] [address] [facility] [id number] [place] [address] Jul, [facility] [place] [place] [facility] [address] [id number] [place] [address] Jul, [facility] [place] [facility] [address] [id number] [place] [address] Jul, [facility] [place] [facility] [address] [id number] [place] [address] Jul, [facility] [place] [facility] [address] [id number] [place] [address] Jul, [facility] [place] [facility] [address] [id number] [place] [address] Jun, [facility] [place] [facility] [address] [id number] [place] [address] Jun, [facility] [place] [facility] [address] [id number] [place] [address] Jun, [facility] [place] [facility] [address] [id number] [place] [address] Jun, [facility] [place] [facility] [address] [id number] [place] [address] Jun, [facility] [place] [facility] [address] [id number] [place] [address] Jun, [facility] [place] [facility] [address] [id number] [place] [address] Jun, [facility] [place] [facility] [address] [id number] [place] [address] Jun, [facility] [place] [facility] [address] [id number] [place] [address] Jun, [facility] [place] [facility] [address] [id number] [place] [address] Jun, [facility] [place] [facility] [address] [id number] [place] [address] May, [facility] [place] [facility] [address] [id number] [place] [address] May, [facility] [place] [facility] [address] [id number] [address] May, [facility] [place] [facility] [address] [id number] [place] [address] May, [facility] [place] [facility] [address] [id number] [place] [address] 16 May, 2013 [facility] [place] [facility] [address] [id number] [address] 11 May, 2013 [facility] [place] [facility] [address] [id number], [place] [address] May, [facility] [place] [facility] [address] [id number] [place] [address] May, [facility] [place] [facility] [address] [id number] [place] [address] May, [facility] [place] [facility] [address] [id number] [place] [address] Apr, [facility] [place] [facility] [address] [id number] [place] [address] 16 Apr, 2013 [facility] [place] [facility] [address] [id number] [place] [address] Apr, [facility] [place] [facility] [address] [id number] [place] [address] Apr, [facility] [place] [facility] [address] [id number] [place] [address] Mar, [facility] [place] [facility] [address] [id number] [place] [address] Mar, [facility] [place] [facility] [address] [id number] [place] [address] Mar, [facility] [place] [facility] [address] [id number] [place] [address] Mar, [facility] [place] [facility] [address] [id number] [place] [address] Mar, [facility] [place] [facility] [address] [id number] [place] [address] Mar, [facility] [place] [facility] [address] [id number] [place] [address] Mar, [facility] [place] [facility] [address] [id number] [place] [address] Feb, [facility] [place] [facility] [address] [id number] [place] [address] Feb, [facility] [place] [facility] [address] [id number] [place] [address] Feb, [facility] [address] [id number] [place] [address] Feb, [facility] [address] [id number] [place] [address] Feb, [facility] [address] [id number] [place] [address] Feb, [facility] [address] [id number] [place] [address] Feb, [facility] [address] [id number] [place] [address] Feb, [facility] [address] [id number] [place] [address] Feb, [facility] [address] [id number] [place] [address] Feb, [facility] [address] [id number] [place] [address] Feb, [facility] [address] [id number] [place] [address] Jan, [facility] [address] [id number] [place] [address] Jan, [facility] [address] [id number] [place] [address] December, [facility] [address] [id number] [place] [address] December, [facility] [address] [id number] [place] [address] Nov, [facility] [address] [id number] [place] [address] Nov, [facility] [address] [id number] [place] [address] Oct, [facility] [address] [id number] [place] [address] Oct, [facility] [place] [facility] [address] [id number] [place] [address] Oct, [facility] [place] [facility] [address] [id number] [place] [address] Oct, [facility] [place] [facility] [address] [id number] [place] [address] Sep, [facility] [place] [facility] [address] [id number] [place] [address] Sep, [facility] [place] [facility] [address] [id number] [place] [address] Sep, [facility] [place] [facility] [address] [id number] [place] [address] Sep, [facility] [place] [facility] [address] [id number] [place] [address] Aug, [facility] [place] [facility] [address] [id number] [place] [address] Aug, [facility] [place] [facility] [address] [id number] [place] [address] Jul, [facility] [place] [facility] [address] [id number] [place] [address] Jul, [facility] [place] [facility] [address] [id number] [place] [address] Jul, [facility] [place] [facility] [address] [id number] [place] [address] Jul, [facility] [place] [facility] [address] [id number] [place] [address] Jul, [facility] [place] [facility] [address] [id number] [place] [address] Jul, [facility] [place] [facility] [address] [id number] [place] [address] Jun, [facility] [place] [facility] [address] [id number] [place] [address] Jun, [facility] [place] [facility] [address] [id number] [place] [address] Jun, [facility] [place] [facility] [address] [id number] [place] [address] Jun, [facility] [place] [facility] [address] [id number] [place] [address] Jun, [facility] [place] [facility] [address] [id number] [place] [address] May, [facility] [place] [facility] [address] [id number] [place] [address] May, [facility] [place] [facility] [address] [id number] [place] [address] May, [facility] [place] [facility] [address] [id number] [place] [address] May, [facility] [place] [facility] [address] [id number] [place] [address] May, [facility] [place] [facility] [address] [id number] [place] [address] May, [facility] [place] [facility] [address] [id number] [place] [address] May, [facility] [place] [facility] [address] [id number] [place] [address] May, [facility] [place] [facility] [address] [id number] [place] [address] Mar, [facility] [place] [facility] [address] [id number] [place] [address] Mar, [facility] [place] [facility] [address] [id number] [place] [address] Mar, [facility] [place] [facility] [address] [id number] [place] [address] Feb, [facility] [place] [facility] [address] [id number] [place] [address] Feb, [facility] [place] [facility] [address] [id number] [place] [address] Feb, [facility] [place] [facility] [address] [id number] [place] [address] Feb, [facility] [address] [id number] [place] [address] Jan, [facility] [place] [facility] [address] [id number] [place] [address] Jan, [facility] [address] [id number] [place] [address] Jan, [facility] [address] [id number] [place] [address] December, [facility] [place] [facility] [address] [id number] [place] [address] Nov, [facility] [place] [facility] [address] [id number] [place] [address] Oct, [facility] [place] [facility] [address] [id number] [place] [address] Oct, [facility] [place] [facility] [address] [id number] [place] [address] Oct, [facility] [place] [facility] [address] [id number] [place] [address] Oct, [facility] [place] [facility] [address] [id number] [place] [address] Aug, [facility] [place] [facility] [address] [id number] [place] [address] Aug, [facility] [place] [facility] [address] [id number] [place] [address] Aug, [facility] [facility] [address] [id number] [place] [address] Aug, [facility] [place] [facility] [address] [id number] [place] [address] Aug, [facility] [place] [facility] [address] [id number] [place] [address] Aug, [facility] [place] [facility] [address] [id number] [place] [address] Aug, [facility] [place] [facility] [address] [id number] [place] [address] Aug, [facility] [place] [facility] [address] [id number] [place] [address] Jul, [facility] [place] [facility] [address] [id number] [place] [address] Jun, [facility] [place] [facility] [address] [id number] [place] [address] 29 Jun, 2011 [facility] [place] [facility] [address] [id number] [place] [address] 31 Jul, 2010 [facility] [place] [facility] [address] [id number] [place] [address] Jul, [facility] [place] [facility] [address] [id number] [place] [address] 22 Jul, 2010 [facility] [place] [facility] [address] [id number] [place] [address] 14 Jul, 2010 [facility] [place] [facility] [address] [id number] [place] [address] 14 Jul, 2010 [facility] [place] [facility] [address] [id number] [place] [address] 24 Jun, 2010 [facility] [place] [facility] [address] [id number] [place] [address] May, [facility] [place] [facility] [id number] [address] 11 Mar, 2010 [facility] [id number] [address] Oct, [facility] [id number] [address] Aug, [facility] [id number] [address] Jul, [facility] [id number] [address] Jul, [facility] [id number] [place] [address] Jun, [facility] [id number] [address] Jun, [facility] [id number] [place] [address] May, [facility] [id number] [address] May, [facility] [id number] [address] Mar, [facility] [id number] [address] Mar, [facility] [id number] [address] Oct, IMMUNIZATIONS No Known Immunizations SOCIAL HISTORY Never Assessed REASON FOR VISIT Medication question PLAN OF CARE VITAL SIGNS MEDICATIONS Medication [...] disc replacement L1- L5 - Dr Muhammad ([place]) Surgical History appendectomy 1983 Surgical History hysterectomy 1993 Surgical History dilatation and curettage Surgical History heart cath- Dr Shaw [address] Meza bowel and intestines seperated 2015 Hospitalization History Hospitalization for surgery only
--- OUTSIDE RECORDS SUMMARY | 2019-01-03 13:57 | XMS REPORT ---
Author Author RAUL VASQUEZ Organization [facility] Address [address] [place] [address] Care Team Providers Care Site Planner Name Role Phone VASQUEZ CARTER Unavailable PROBLEMS Type Condition ICD9-CM Code HRG23-UW Code Onset Dates Condition Status SNOMED Code Problem PTSD (post-traumatic stress disorder) F43.10 Active 59307269 Problem Alcohol use disorder, mild, in sustained remission F10.11 Active 11143057 Problem Tobacco use Z72.0 Active 881677493 Problem Acute pain of left shoulder M25.512 Active 18767669 Problem Cigarette nicotine dependence without complication F17.210 Active 31699952 Problem Methamphetamine use disorder, severe, 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 Active 98424809 Problem Opioid use disorder, moderate, in sustained remission F11.21 Active 33930520 Problem GERD with esophagitis K21.0 Active 507053046 Problem Cocaine use disorder, moderate, in sustained remission F14.21 Active 23218105 Problem Mixed hyperlipidemia E78.2 Active 716822766 Problem Major depressive disorder, recurrent episode, moderate F33.1 Active 825086376 Problem Generalized anxiety disorder F41.1 Active 28523328 Problem Prediabetes 790.29 Active 8058439 Problem Cannabis abuse F12.10 Active 18743450 ALLERGIES No Information ENCOUNTERS Encounter Location Date Diagnosis [facility] [address] [facility] [id number] [id number] Aug, [facility] [address] [id number] [address] Aug, [facility] [address] [id number] [address] Jul, Major depressive disorder, recurrent episode, moderate F33.1 [facility] [address] [id number] [address] Jun, Major depressive disorder, recurrent episode, moderate F33.1 [facility] [id number] [place] [address] Jun, Major depressive disorder, recurrent episode, moderate F33.1 [facility] [id number] [place] [address] Jun, Acute pain of left shoulder M25.512 and Cigarette nicotine dependence without complication F17.210 [facility] [address] [address] May, [facility] [address] [address] May, Cocaine use disorder, moderate, in sustained remission F14.21 [facility] [place] [id number] [place] [address] May, [address] [place] [address] May, Dental examination Z01.20 [facility] [address] [id number] May, Dental examination Z01.20 and Caries K02.9 [place] [address] [address] May, Common wart B07.8 [facility] [id number] [place] [address] May, [facility] [id number] [place] [address] Apr, Cocaine use disorder, moderate, in sustained remission F14.21 [facility] [id number] [place] [address] 14 Apr, 2018 [facility] [address] [id number] 13 Apr, 2018 Dental examination Z01.20 [facility] [address] [id number] Mar, Encounter for dental exam and cleaning w/o abnormal findings Z01.20 [place] [id number] [place] [address] Mar, [facility] [id number] [place] [address] Feb, Cocaine use disorder, moderate, in sustained remission F14.21 ; Opioid use disorder, moderate, in sustained remission F11.21 ; Alcohol use disorder, mild, in sustained remission F10.11 ; Tobacco use Z72.0 ; PTSD (post-traumatic stress disorder) F43.10 ; Methamphetamine use disorder, severe, 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 ; Generalized anxiety disorder F41.1 ; Cannabis abuse F12.10 and Major depressive disorder, recurrent episode, moderate F33.1 [facility] [id number] [place] [address] Jan, Cocaine use disorder, moderate, in sustained remission F14.21 [place] [id number] [place] [address] Jan, Cocaine use disorder, moderate, in sustained remission F14.21 ; Opioid use disorder, moderate, in sustained remission F11.21 ; Alcohol use disorder, mild, in sustained remission F10.11 ; Tobacco use Z72.0 ; PTSD (post-traumatic stress disorder) F43.10 ; Methamphetamine use disorder, severe, 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 ; Generalized anxiety disorder F41.1 ; Cannabis abuse F12.10 and Major depressive disorder, recurrent episode, moderate F33.1 [place] [id number] [place] [address] Jan, Dysuria R30.0 and GERD with esophagitis K21.0 [place] [id number] [place] [address] December, Major depressive disorder, recurrent episode, moderate F33.1 [place] [id number] [place] [address] December, [place] [id number] [place] [address] December, Major depressive disorder, recurrent episode, moderate F33.1 ; Generalized anxiety disorder F41.1 ; Cannabis abuse F12.10 ; PTSD (post-traumatic stress disorder) F43.10 ; Methamphetamine use disorder, severe, 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 ; Cocaine use disorder, moderate, in sustained remission F14.21 ; Opioid use disorder, moderate, in sustained remission F11.21 ; Alcohol use disorder, mild, in sustained remission F10.11 and Tobacco use Z72.0 [facility] [id number] [place] [address] Nov, [facility] [address] [place] [address] Nov, [place] [id number] [place] [address] Nov, Wellness examination Z00.00 ; Encounter for immunization Z23 ; Screening for osteoporosis Z13.820 ; Screening for breast cancer Z12.31 and Left breast lump N63.20 [facility] [id number] [place] [id number] Oct, Dental examination Z01.20 [place] [id number] [place] [address] Oct, [place] [id number] [place] [address] Oct, [place] [id number] [place] [address] 16 Sep, 2017 [place] [id number] [place] [address] Sep, [place] [id number] [place] [address] 14 Sep, 2017 Left otitis media with effusion H65.92 ; Acute suppurative otitis media of right ear without spontaneous rupture of tympanic membrane, recurrence not specified H66.001 ; Dizziness R42 and Fatigue 780.79 [place] [address] [address] Aug, Major depressive disorder, recurrent episode, moderate F33.1 ; Generalized anxiety disorder F41.1 ; Cannabis abuse F12.10 ; PTSD (post-traumatic stress disorder) F43.10 ; Methamphetamine use disorder, severe, 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 [address] [place] [address] Aug, Ingrown right big toenail L60.0 [facility] [id number] [place] [address] Aug, [facility] [id number] [place] [address] Aug, PTSD (post-traumatic stress disorder) F43.10 [facility] [id number] [place] [address] Aug, Major depressive disorder, recurrent episode, moderate F33.1 ; Generalized anxiety disorder F41.1 and Cannabis abuse F12.10 [facility] [address] [place] [address] Jul, [facility] [id number] [place] [address] Jul, [facility] [id number] [place] [address] Jul, [facility] [id number] [place] [address] Jul, Major depressive disorder, recurrent episode, moderate F33.1 ; Generalized anxiety disorder F41.1 and Cannabis abuse F12.10 [facility] [id number] [place] [address] Jul, [place] [place] [address] [address] Jul, [place] [id number] [place] [address] Jul, Hyperlipidemia 272.4 [place] [id number] [place] [address] Jul, PTSD (post-traumatic stress disorder) F43.10 [place] [id number] [place] [address] Jul, Tobacco use Z72.0 ; Alcohol use disorder, mild, in sustained remission F10.11 ; Opioid use disorder, moderate, in sustained remission F11.21 ; Methamphetamine use disorder, severe, 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 ; Cocaine use disorder, moderate, in sustained remission F14.21 ; PTSD (post-traumatic stress disorder) F43.10 ; Major depressive disorder, recurrent episode, moderate F33.1 ; Generalized anxiety disorder F41.1 and Cannabis abuse F12.10 [place] [address] [place] [address] Jul, [place] [id number] [place] [address] Jul, Dysuria R30.0 and Mixed hyperlipidemia E78.[address] [place] [address] Jun, Major depressive disorder, recurrent episode, moderate F33.1 ; Generalized anxiety disorder F41.1 and Cannabis abuse F12.10 [place] [address] [address] Jun, [place] [id number] [place] [address] Jun, Generalized anxiety disorder F41.1 ; Major depressive disorder, recurrent episode, moderate F33.1 ; PTSD (post-traumatic stress disorder) F43.10 ; Opioid use disorder, moderate, in sustained remission F11.21 ; Cannabis abuse F12.10 ; Alcohol use disorder, mild, in sustained remission F10.11 ; Methamphetamine use disorder, severe, 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 ; Cocaine use disorder, moderate, in sustained remission F14.21 and Tobacco use Z72.0 [place] [id number] [place] [address] Jun, Major depressive disorder, recurrent episode, moderate F33.1 ; Generalized anxiety disorder F41.1 and Cannabis abuse F12.10 [place] [id number] [place] [address] Jun, [place] [id number] [place] [address] Jun, [place] [id number] [place] [address] Jun, Major depressive disorder, recurrent episode, moderate F33.1 ; Generalized anxiety disorder F41.1 and Cannabis abuse F12.10 [facility] [address] [id number] Mar, Dental examination Z01.20 [facility] [address] [id number] Feb, Dental examination Z01.20 [place] [id number] [place] [address] Mar, [place] [id number] [place] [address] Mar, [place] [id number] [place] [address] Feb, Hyperlipidemia 272.4 and Prediabetes 790.29 [place] [id number] [place] [address] Feb, Fatigue 780.79 and Hyperlipidemia 272.4 [place] [id number] [place] [address] 08 Feb, 2015 Lumbago 724.2 ; Hyperlipidemia 272.4 ; Insomnia 780.52 and Fatigue 780.79 [place] [address] [id number] [place] [address] Nov, [facility] [place] [facility] [address] [id number] [place] [address] Nov, [facility] [place] [facility] [address] [id number] [place] [address] Mar, [facility] [place] [facility] [address] [id number] [place] [address] Mar, [facility] [place] [facility] [address] [id number] [place] [address] Jan, [facility] [place] [facility] [address] [id number] [place] [address] Jan, [facility] [place] [facility] [address] [id number] [place] [address] December, [facility] [place] [facility] [address] [id number] [place] [address] December, [facility] [place] [facility] [address] [id number] [place] [address] Nov, [facility] [place] [facility] [address] [id number] [place] [address] Nov, [facility] [place] [facility] [address] [id number] [place] [address] Nov, [facility] [place] [facility] [address] [id number] [place] [address] Nov, [facility] [place] [facility] [address] [id number] [place] [address] Nov, [facility] [place] [facility] [address] [id number] [place] [address] Nov, [facility] [place] [facility] [address] [id number] [place] [address] Oct, [facility] [place] [facility] [address] [id number] [place] [address] Oct, 2013 [facility] [place] [facility] [address] [id number] [place] [address] Oct, [facility] [place] [facility] [address] [id number] [place] [address] Oct, [facility] [place] [facility] [address] [id number] [place] [address] Oct, [facility] [place] [facility] [address] [id number] [place] [address] Oct, [facility] [place] [facility] [address] [id number] [place] [address] Oct, [facility] [place] [facility] [address] [id number] [place] [address] Oct, [facility] [place] [facility] [address] [id number] [place] [address] Oct, [facility] [place] [facility] [address] [id number] [place] [address] Oct, [facility] [place] [facility] [address] [id number] [place] [address] Oct, [facility] [place] [facility] [address] [id number] [place] [address] Oct, [facility] [place] [facility] [address] [id number] [place] [address] Oct, [facility] [place] [facility] [address] [id number] [place] [address] Sep, [facility] [place] [facility] [address] [id number] [place] [address] Sep, [facility] [place] [facility] [address] [id number] [place] [address] Sep, [facility] [place] [facility] [address] [id number] [place] [address] Sep, [facility] [place] [facility] [address] [id number] [place] [address] 20 Sep, 2013 [facility] [place] [facility] [address] [id number] [place] [address] 20 Sep, 2013 [facility] [place] [facility] [address] [id number] [place] [address] 18 Sep, 2013 [facility] [place] [facility] [address] [id number] [place] [address] 18 Sep, 2013 [facility] [place] [facility] [address] [id number] [place] [address] 14 Sep, 2013 [facility] [place] [facility] [address] [id number] [place] [address] 14 Sep, 2013 [facility] [place] [facility] [address] [facility] [id number] [place] [address] 14 Sep, 2013 [facility] [place] [facility] [address] [id number] [place] [address] 14 Sep, 2013 [facility] [place] [facility] [address] [id number] [place] [address] 14 Sep, 2013 [facility] [place] [facility] [address] [facility] [id number] [place] [address] 14 Sep, 2013 [facility] [place] [facility] [address] [facility] [id number] [place] [address] 13 Sep, 2013 [facility] [place] [facility] [address] [id number] [place] [address] 13 Sep, 2013 [facility] [place] [facility] [address] [id number] [place] [address] 12 Sep, 2013 [facility] [place] [facility] [address] [id number] [place] [address] 12 Sep, 2013 [facility] [place] [facility] [address] [facility] [id number] [place] [address] 03 Sep, 2013 [facility] [place] [facility] [address] [id number] [place] [address] Sep, [facility] [address] [id number] [place] [address] Aug, [facility] [address] [id number] [place] [address] Aug, [facility] [address] [id number] [place] [address] Aug, [facility] [address] [id number] [place] [address] Aug, [facility] [address] [id number] [place] [address] Aug, [facility] [address] [id number] [place] [address] Jul, [facility] [address] [id number] [place] [address] Jul, [facility] [address] [id number] [place] [address] Jul, [facility] [address] [id number] [place] [address] Jul, [facility] [address] [facility] [id number] [place] [address] Jul, [facility] [place] [facility] [address] [id number] [place] [address] Jul, [facility] [place] [facility] [address] [id number] [place] [address] Jul, [facility] [place] [facility] [address] [id number] [place] [address] Jul, [facility] [place] [facility] [address] [id number] [place] [address] Jul, [facility] [place] [facility] [address] [id number] [place] [address] Jun, [facility] [place] [facility] [address] [id number] [place] [address] Jun, [facility] [place] [facility] [address] [id number] [place] [address] Jun, [facility] [place] [facility] [address] [id number] [place] [address] Jun, [facility] [place] [facility] [address] [id number] [place] [address] Jun, [facility] [place] [facility] [address] [id number] [place] [address] Jun, [facility] [place] [facility] [address] [id number] [place] [address] Jun, [facility] [place] [facility] [address] [id number] [place] [address] Jun, [facility] [place] [facility] [address] [id number] [place] [address] Jun, [facility] [place] [facility] [address] [id number] [place] [address] Jun, [facility] [place] [facility] [address] [id number] [place] [address] May, [facility] [place] [facility] [address] [id number] [place] [address] May, [facility] [place] [facility] [address] [id number] [address] May, [facility] [place] [facility] [address] [id number] [place] [address] May, [facility] [place] [facility] [address] [id number] [place] [address] 16 May, 2013 [facility] [place] [facility] [address] [id number], [place] [address] 11 May, 2013 [facility] [place] [facility] [address] [id number], [place] [address] May, [facility] [place] [facility] [address] [id number] [place] [address] May, [facility] [place] [facility] [address] [id number] [place] [address] May, [facility] [place] [facility] [address] [id number] [place] [address] Apr, [facility] [place] [facility] [address] [id number] [place] [address] 16 Apr, 2013 [facility] [place] [facility] [address] [id number] [place] [address] Apr, [facility] [place] [facility] [address] [id number] [place] [address] Apr, [facility] [place] [facility] [address] [id number] [place] [address] Mar, [facility] [place] [facility] [address] [id number] [place] [address] Mar, [facility] [place] [facility] [address] [id number] [place] [address] Mar, [facility] [place] [facility] [address] [id number] [place] [address] Mar, [facility] [place] [facility] [address] [id number] [place] [address] Mar, [facility] [place] [facility] [address] [id number] [place] [address] Mar, [facility] [place] [facility] [address] [id number] [place] [address] Mar, [facility] [place] [facility] [address] [id number] [place] [address] Feb, [facility] [place] [facility] [address] [id number] [place] [address] Feb, [facility] [place] [facility] [address] [id number] [place] [address] Feb, [facility] [address] [id number] [place] [address] Feb, [facility] [address] [id number] [place] [address] Feb, [facility] [address] [id number] [place] [address] Feb, [facility] [address] [id number] [place] [address] Feb, [facility] [address] [id number] [place] [address] Feb, [facility] [address] [id number] [place] [address] Feb, [facility] [address] [id number] [place] [address] Feb, [facility] [address] [id number] [place] [address] Feb, [facility] [address] [id number] [place] [address] Jan, [facility] [address] [id number] [place] [address] Jan, [facility] [address] [id number] [place] [address] December, [facility] [address] [id number] [place] [address] December, [facility] [address] [id number] [place] [address] Nov, [facility] [address] [id number] [place] [address] Nov, [facility] [address] [id number] [place] [address] Oct, [facility] [address] [id number] [place] [address] Oct, [facility] [place] [facility] [address] [id number] [place] [address] Oct, [facility] [place] [facility] [address] [id number] [place] [address] Oct, [facility] [place] [facility] [address] [id number] [place] [address] Sep, [facility] [place] [facility] [address] [id number] [place] [address] Sep, [facility] [place] [facility] [address] [id number] [place] [address] Sep, [facility] [place] [facility] [address] [id number] [place] [address] Sep, [facility] [place] [facility] [address] [id number] [place] [address] Aug, [facility] [place] [facility] [address] [id number] [place] [address] Aug, [facility] [place] [facility] [address] [id number] [place] [address] Jul, [facility] [place] [facility] [address] [address] [id number] [place] [address] Jul, [facility] [place] [facility] [address] [id number] [place] [address] Jul, [facility] [place] [facility] [address] [id number] [place] [address] Jul, [facility] [place] [facility] [address] [id number] [place] [address] Jul, [facility] [place] [facility] [address] [id number] [place] [address] Jul, [facility] [place] [facility] [address] [id number] [place] [address] Jun, [facility] [place] [facility] [address] [id number] [place] [address] Jun, [facility] [place] [facility] [address] [id number] [place] [address] Jun, [facility] [place] [facility] [address] [id number] [place] [address] Jun, [facility] [place] [facility] [address] [id number] [place] [address] Jun, [facility] [place] [facility] [address] [id number] [place] [address] May, [facility] [place] [facility] [address] [id number] [place] [address] May, [facility] [place] [facility] [address] [id number] [place] [address] May, [facility] [place] [facility] [address] [id number] [place] [address] May, [facility] [place] [facility] [address] [id number] [place] [address] May, [facility] [place] [facility] [address] [id number] [place] [address] May, [facility] [place] [facility] [address] [id number] [place] [address] May, [facility] [place] [facility] [address] [id number] [place] [address] May, [facility] [place] [facility] [address] [id number] [place] [address] Mar, [facility] [place] [facility] [address] [id number] [place] [address] Mar, [facility] [place] [facility] [address] [id number] [place] [address] Mar, [facility] [place] [facility] [address] [id number] [place] [address] Feb, [facility] [place] [facility] [address] [id number] [place] [address] Feb, [facility] [place] [facility] [address] [id number] [place] [address] Feb, [facility] [place] [facility] [address] [id number] [place] [address] Feb, [facility] [address] [id number] [place] [address] Jan, [facility] [place] [facility] [address] [id number] [place] [address] Jan, [facility] [address] [id number] [place] [address] Jan, [facility] [address] [id number] [place] [address] December, [facility] [place] [facility] [address] [id number] [place] [address] Nov, [facility] [place] [facility] [address] [id number] [place] [address] Oct, [facility] [place] [facility] [address] [id number] [place] [address] Oct, [facility] [place] [facility] [address] [id number] [place] [address] Oct, [facility] [place] [facility] [address] [id number] [place] [address] Oct, [facility] [place] [facility] [address] [id number] [place] [address] Aug, [facility] [place] [facility] [address] [id number] [place] [address] Aug, [facility] [place] [facility] [address] [id number] [place] [address] Aug, [facility] [address] [id number] [place] [address] Aug, [facility] [place] [facility] [address] [id number] [place] [address] Aug, [facility] [place] [facility] [address] [id number] [place] [address] Aug, [facility] [place] [facility] [address] [id number] [place] [address] Aug, [facility] [place] [facility] [address] [id number] [place] [address] Aug, [facility] [place] [facility] [address] [id number] [place] [address] Jul, [facility] [place] [facility] [address] [id number] [place] [address] Jun, [facility] [place] [facility] [address] [id number] [place] [address] 29 Jun, 2011 [facility] [place] [facility] [address] [id number] [place] [address] 31 Jul, 2010 [facility] [place] [facility] [address] [id number] [place] [address] Jul, [facility] [place] [facility] [address] [id number] [place] [address] 22 Jul, 2010 [facility] [place] [facility] [address] [id number] [place] [address] 14 Jul, 2010 [facility] [place] [facility] [address] [id number] [place] [address] 14 Jul, 2010 [facility] [place] [facility] [address] [id number] [place] [address] 24 Jun, 2010 [facility] [place] [facility] [address] [id number] [place] [address] May, [facility] [place] [facility] [id number] [address] 11 Mar, 2010 [facility] [id number] [place] [address] Oct, [facility] [id number] [place] [address] Aug, [facility] [id number] [place] [address] Jul, [facility] [id number] [place] [address] Jul, [facility] [id number] [place] [address] Jun, [facility] [id number] [place] [address] Jun, [facility] [id number] [place] [address] May, [facility] [id number] [address] May, [facility] [id number] [place] [address] Mar, [facility] [id number] [place] [address] Mar, [facility] [id number] [place] [address] Oct, IMMUNIZATIONS No Known Immunizations SOCIAL HISTORY [...] disc replacement L1- L5 - Dr Muhammad ([place]) Surgical History appendectomy 1983 Surgical History hysterectomy 1993 Surgical History dilatation and curettage Surgical History heart cath- Dr Shaw [address] Meza bowel and intestines seperated 2015 Hospitalization History Hospitalization for surgery only
--- OUTSIDE RECORDS SUMMARY | 2019-01-03 13:58 | XMS REPORT ---
Author Author WILD RODRIGUEZ Organization [facility] Address [address] [place] [address] Care Team Providers Care Animal Feeder Name Role Phone WILD RODRIGUEZ Unavailable PROBLEMS Type Condition ICD9-CM Code VSS02-KH Code Onset Dates Condition Status SNOMED Code Problem PTSD (post-traumatic stress disorder) F43.10 Active 81656738 Problem Alcohol use disorder, mild, in sustained remission F10.11 Active 18409714 Problem Tobacco use Z72.0 Active 685087381 Problem Acute pain of left shoulder M25.512 Active 40457765 Problem Cigarette nicotine dependence without complication F17.210 Active 25151025 Problem Methamphetamine use disorder, severe, 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 Active 79668750 Problem Opioid use disorder, moderate, in sustained remission F11.21 Active 72672849 Problem GERD with esophagitis K21.0 Active 251294610 Problem Cocaine use disorder, moderate, in sustained remission F14.21 Active 97240571 Problem Mixed hyperlipidemia E78.2 Active 589578672 Problem Major depressive disorder, recurrent episode, moderate F33.1 Active 008611350 Problem Generalized anxiety disorder F41.1 Active 76946090 Problem Prediabetes 790.29 Active 6197803 Problem Cannabis abuse F12.10 Active 83566385 ALLERGIES Substance Reaction Event Type Date Status Pravastatin Sodium itching Drug Allergy Jun, Active Duragesic-100 vomiting- Patches only Drug Allergy Jun, Active ENCOUNTERS Encounter Location Date Diagnosis [facility] [address] [facility] [id number] [id number] Aug, [facility] [address] [address] Jun, [facility] [id number] [address] Jun, Acute pain of left shoulder M25.512 and Cigarette nicotine dependence without complication F17.210 [facility] [id number] [place] [address] May, [facility] [id number] [place] [address] May, Cocaine use disorder, moderate, in sustained remission F14.21 [facility] [id number] [place] [address] May, [place] [address] [address] [place] [address] May, Dental examination Z01.20 [facility] [id number] [place] [id number] May, Dental examination Z01.20 and Caries K02.9 [place] [id number] [place] [address] May, Common wart B07.8 [place] [id number] [place] [address] May, [facility] [id number] [place] [address] 27 Apr, 2018 Cocaine use disorder, moderate, in sustained remission F14.21 [facility] [id number] [place] [address] 14 Apr, 2018 [facility] [id number] [place] [id number] 13 Apr, 2018 Dental examination Z01.20 [facility] [id number] [place] [id number] Mar, Encounter for dental exam and cleaning w/o abnormal findings Z01.20 [facility] [id number] [place] [address] Mar, [facility] [id number] [place] [address] Feb, Cocaine use disorder, moderate, in sustained remission F14.21 ; Opioid use disorder, moderate, in sustained remission F11.21 ; Alcohol use disorder, mild, in sustained remission F10.11 ; Tobacco use Z72.0 ; PTSD (post-traumatic stress disorder) F43.10 ; Methamphetamine use disorder, severe, 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 ; Generalized anxiety disorder F41.1 ; Cannabis abuse F12.10 and Major depressive disorder, recurrent episode, moderate F33.1 [place] [address] [address] Jan, Cocaine use disorder, moderate, in sustained remission F14.21 [place] [id number] [place] [address] Jan, Cocaine use disorder, moderate, in sustained remission F14.21 ; Opioid use disorder, moderate, in sustained remission F11.21 ; Alcohol use disorder, mild, in sustained remission F10.11 ; Tobacco use Z72.0 ; PTSD (post-traumatic stress disorder) F43.10 ; Methamphetamine use disorder, severe, 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 ; Generalized anxiety disorder F41.1 ; Cannabis abuse F12.10 and Major depressive disorder, recurrent episode, moderate F33.1 [place] [id number] [place] [address] Jan, Dysuria R30.0 and GERD with esophagitis K21.0 [place] [id number] [place] [address] December, Major depressive disorder, recurrent episode, moderate F33.1 [place] [address], [place] [address] December, [place] [id number] [place] [address] December, Major depressive disorder, recurrent episode, moderate [...] use Z72.0 [facility] [address] [address] Nov, [facility] [id number] [address] Nov, [facility] [address], [place] [address] Nov, Wellness examination Z00.00 ; Encounter for immunization Z23 ; Screening for osteoporosis Z13.820 ; Screening for breast cancer Z12.31 and Left breast lump N63.20 [facility] [id number] [place] [id number] Oct, Dental examination Z01.20 [facility] [id number] [place] [address] Oct, [facility] [id number] [place] [address] Oct, [facility] [id number] [place] [address] 16 Sep, 2017 [facility] [id number] [place] [address] 15 Sep, 2017 [facility] [id number] [place] [address] 14 Sep, 2017 Left otitis media with effusion H65.92 ; Acute suppurative otitis media of right ear without spontaneous rupture of tympanic membrane, recurrence not specified H66.001 ; Dizziness R42 and Fatigue 780.79 [facility] [address], [place] [address] Aug, Major depressive disorder, recurrent episode, moderate F33.1 ; Generalized anxiety disorder F41.1 ; Cannabis abuse F12.10 ; PTSD (post-traumatic stress disorder) F43.10 ; Methamphetamine use disorder, severe, 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 [id number] [place] [address] Aug, Ingrown right big toenail L60.0 [facility] [id number] [place] [address] Aug, [facility] [id number] [place] [address] Aug, PTSD (post-traumatic stress disorder) F43.10 [place] [id number] [place] [address] Aug, Major depressive disorder, recurrent episode, moderate F33.1 ; Generalized anxiety disorder F41.1 and Cannabis abuse F12.10 [facility] [id number] [place] [address] Jul, [facility] [id number] [place] [address] Jul, [facility] [id number] [place] [address] Jul, [facility] [id number] [place] [address] Jul, Major depressive disorder, recurrent episode, moderate F33.1 ; Generalized anxiety disorder F41.1 and Cannabis abuse F12.10 [facility] [id number] [place] [address] Jul, [facility] [id number] [place] [address] Jul, [place] [id number] [place] [address] Jul, Hyperlipidemia 272.4 [facility] [id number] [place] [address] Jul, PTSD (post-traumatic stress disorder) F43.10 [place] [id number] [place] [address] 14 Jul, 2017 Tobacco use Z72.0 ; [...] anxiety disorder F41.1 and Cannabis abuse F12.10 [place] [id number] [place] [address] Jul, [place] [address] [address] Jul, Dysuria R30.0 and Mixed hyperlipidemia E78.[address] [address] Jun, Major depressive disorder, recurrent episode, moderate F33.1 ; Generalized anxiety disorder F41.1 and Cannabis abuse F12.10 [place] [id number] [place] [address] Jun, [place] [id number] [place] [address] 15 Jun, 2017 Generalized anxiety disorder F41.1 ; Major depressive disorder, recurrent episode, moderate F33.1 ; PTSD (post-traumatic stress disorder) F43.10 ; Opioid use disorder, moderate, in sustained remission F11.21 ; Cannabis abuse F12.10 ; Alcohol use disorder, mild, in sustained remission F10.11 ; Methamphetamine use disorder, severe, 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 ; Cocaine use disorder, moderate, in sustained remission F14.21 and Tobacco use Z72.0 [place] [id number] [place] [address] 13 Jun, 2017 Major depressive disorder, recurrent episode, moderate F33.1 ; Generalized anxiety disorder F41.1 and Cannabis abuse F12.10 [place] [id number] [place] [address] Jun, [facility] [address] [address] Jun, [facility] [id number] [place] [address] Jun, Major depressive disorder, recurrent episode, moderate F33.1 ; Generalized anxiety disorder F41.1 and Cannabis abuse F12.10 [facility] [id number] [place] [address] [id number] Mar, Dental examination Z01.20 [facility] [address] [id number] Feb, Dental examination Z01.20 [facility] [id number] [place] [address] Mar, [facility] [id number] [place] [address] Mar, [facility] [id number] [place] [address] Feb, Hyperlipidemia 272.4 and Prediabetes 790.29 [facility] [id number] [place] [address] Feb, Fatigue 780.79 and Hyperlipidemia 272.4 [facility] [id number] [place] [address] Feb, Lumbago 724.2 ; Hyperlipidemia 272.4 ; Insomnia 780.52 and Fatigue 780.79 [facility] [id number] [place] [address] Nov, [facility] [id number] [place] [address] Nov, [facility] [id number] [place] [address] Mar, [facility] [address] [place] [address] Mar, [facility] [place] [facility] [address] [id number] [place] [address] Jan, [facility] [place] [facility] [address] [id number] [place] [address] Jan, [facility] [place] [facility] [address] [id number] [place] [address] December, [facility] [place] [facility] [address] [id number] [place] [address] December, [facility] [place] [facility] [address] [id number] [place] [address] Nov, [facility] [place] [facility] [address] [id number] [place] [address] Nov, [facility] [place] [facility] [address] [id number] [place] [address] Nov, [facility] [place] [facility] [address] [id number] [place] [address] Nov, [facility] [place] [facility] [address] [id number] [place] [address] Nov, [facility] [place] [facility] [address] [id number] [place] [address] Nov, [facility] [place] [facility] [address] [id number] [place] [address] 31 Oct, 2013 [facility] [place] [facility] [address] [id number] [place] [address] 31 Oct, 2013 [facility] [place] [facility] [address] [id number] [place] [address] 20 Oct, 2013 [facility] [place] [facility] [address] [id number] [place] [address] 20 Oct, 2013 [facility] [place] [facility] [address] [id number] [place] [address] 19 Oct, 2013 [facility] [place] [facility] [address] [id number] [place] [address] Oct, [facility] [place] [facility] [address] [id number] [place] [address] Oct, [facility] [place] [facility] [address] [id number] [place] [address] Oct, [facility] [place] [facility] [address] [id number] [place] [address] Oct, [facility] [place] [facility] [address] [id number] [place] [address] Oct, [facility] [place] [facility] [address] [id number] [place] [address] Oct, [facility] [place] [facility] [address] [id number] [place] [address] Oct, [facility] [place] [facility] [address] [id number] [place] [address] Oct, [facility] [place] [facility] [address] [id number] [place] [address] Sep, [facility] [place] [facility] [address] [id number] [place] [address] Sep, [facility] [place] [facility] [address] [id number] [place] [address] Sep, [facility] [place] [facility] [address] [id number] [place] [address] Sep, [facility] [place] [facility] [address] [id number] [place] [address] Sep, [facility] [place] [facility] [address] [id number] [place] [address] Sep, [facility] [place] [facility] [address] [id number] [place] [address] 18 Sep, 2013 [facility] [place] [facility] [address] [id number] [place] [address] 18 Sep, 2013 [facility] [place] [facility] [address] [id number] [place] [address] 14 Sep, 2013 [facility] [place] [facility] [address] [id number] [place] [address] 14 Sep, 2013 [facility] [place] [facility] [address] [id number] [place] [address] 14 Sep, 2013 [facility] [place] [facility] [address] [id number] [place] [address] 14 Sep, 2013 [facility] [place] [facility] [address] [id number] [place] [address] 14 Sep, 2013 [facility] [place] [facility] [address] [facility] [id number] [place] [address] 14 Sep, 2013 [facility] [place] [facility] [address] [id number] [place] [address] Sep, [facility] [place] [facility] [address] [id number] [place] [address] Sep, [facility] [place] [facility] [address] [facility] [id number] [place] [address] Sep, [facility] [place] [facility] [address] [facility] [id number] [place] [address] Sep, [facility] [place] [facility] [address] [facility] [id number] [place] [address] Sep, [facility] [place] [facility] [address] [id number] [place] [address] Sep, [facility] [place] [facility] [address] [id number] [place] [address] Aug, [facility] [place] [facility] [address] [id number] [place] [address] Aug, [facility] [place] [facility] [address] [facility] [id number], [place] [address] Aug, [facility] [address] [id number] [place] [address] Aug, [facility] [place] [facility] [address] [id number] [place] [address] Aug, [facility] [place] [facility] [address] [facility] [id number] [place] [address] Jul, [facility] [place] [facility] [address] [id number] [place] [address] Jul, [facility] [place] [facility] [address] [id number] [place] [address] Jul, [facility] [place] [facility] [address] [id number] [place] [address] Jul, [facility] [place] [facility] [address] [id number] [place] [address] Jul, [facility] [place] [facility] [address] [id number] [place] [address] Jul, [facility] [place] [facility] [address] [id number] [place] [address] Jul, [facility] [place] [facility] [address] [id number] [place] [address] Jul, [facility] [place] [facility] [address] [id number], [place] [address] Jul, [facility] [place] [facility] [address] [id number], [place] [address] Jun, [facility] [place] [facility] [address] [id number] [place] [address] Jun, [facility] [place] [facility] [address] [id number], [place] [address] Jun, [facility] [place] [facility] [address] [id number], [place] [address] Jun, [facility] [place] [facility] [address] [id number] [place] [address] 18 Jun, 2013 [facility] [place] [facility] [address] [id number] [place] [address] Jun, [facility] [place] [facility] [address] [id number] [place] [address] Jun, [facility] [place] [facility] [address] [id number] [place] [address] Jun, [facility] [place] [facility] [address] [id number] [place] [address] Jun, [facility] [place] [facility] [address] [id number] [place] [address] Jun, [facility] [place] [facility] [address] [id number] [place] [address] May, [facility] [place] [facility] [address] [id number] [place] [address] 28 May, 2013 [facility] [place] [facility] [address] [id number] [place] [address] May, [facility] [place] [facility] [address] [id number] [place] [address] 22 May, 2013 [facility] [place] [facility] [address] [id number] [place] [address] 16 May, 2013 [facility] [place] [facility] [address] [id number] [place] [address] May, [facility] [place] [facility] [address] [id number] [place] [address] May, [facility] [place] [facility] [address] [id number] [place] [address] May, [facility] [place] [facility] [address] [id number] [place] [address] May, [facility] [place] [facility] [address] [id number] [place] [address] Apr, [facility] [place] [facility] [address] [id number] [place] [address] 16 Apr, 2013 [facility] [place] [facility] [address] [id number] [place] [address] Apr, [facility] [place] [facility] [address] [id number] [place] [address] Apr, [facility] [place] [facility] [address] [id number] [place] [address] Mar, [facility] [place] [facility] [address] [id number] [place] [address] Mar, [facility] [place] [facility] [address] [id number] [place] [address] Mar, [facility] [place] [facility] [address] [id number] [place] [address] Mar, [facility] [place] [facility] [address] [id number] [place] [address] Mar, [facility] [place] [facility] [address] [id number] [place] [address] Mar, [facility] [place] [facility] [address] [id number] [place] [address] Mar, [facility] [place] [facility] [address] [id number] [place] [address] Feb, [facility] [place] [facility] [address] [id number] [place] [address] Feb, [facility] [place] [facility] [address] [id number] [place] [address] Feb, [facility] [place] [facility] [address] [id number] [place] [address] Feb, [facility] [place] [facility] [address] [id number] [place] [address] Feb, [facility] [place] [facility] [address] [id number] [place] [address] Feb, [facility] [address] [id number] [place] [address] Feb, [facility] [place] [facility] [address] [id number] [place] [address] Feb, [facility] [address] [id number] [place] [address] Feb, [facility] [address] [id number] [place] [address] Feb, [facility] [address] [id number] [place] [address] Feb, [facility] [address] [id number] [place] [address] Jan, [facility] [address] [id number] [place] [address] Jan, [facility] [address] [id number] [place] [address] December, [facility] [address] [id number] [place] [address] December, [facility] [address] [id number] [place] [address] Nov, [facility] [address] [id number] [place] [address] Nov, [facility] [place] [facility] [address] [id number] [place] [address] Oct, [facility] [place] [facility] [address] [id number] [place] [address] Oct, [facility] [place] [facility] [address] [id number] [place] [address] Oct, [facility] [place] [facility] [address] [id number] [place] [address] Oct, [facility] [place] [facility] [address] [id number] [place] [address] 27 Sep, 2012 [facility] [address] [id number] [place] [address] Sep, [facility] [place] [facility] [address] [id number] [place] [address] Sep, [facility] [place] [facility] [address] [id number] [place] [address] Sep, [facility] [place] [facility] [address] [id number] [place] [address] Aug, [facility] [place] [facility] [address] [id number] [place] [address] Aug, [facility] [address] [id number] [place] [address] Jul, [facility] [address] [id number] [place] [address] Jul, [facility] [place] [facility] [address] [id number] [place] [address] Jul, [facility] [place] [facility] [address] [id number] [place] [address] Jul, [facility] [place] [facility] [address] [id number] [place] [address] Jul, [facility] [place] [facility] [address] [id number] [place] [address] Jul, [facility] [place] [facility] [address] [id number] [place] [address] Jun, [facility] [place] [facility] [address] [id number] [place] [address] Jun, [facility] [place] [facility] [address] [id number] [place] [address] Jun, [facility] [place] [facility] [address] [id number] [place] [address] Jun, [facility] [place] [facility] [address] [id number] [place] [address] Jun, [facility] [place] [facility] [address] [id number] [place] [address] May, [facility] [place] [facility] [address] [id number] [place] [address] May, [facility] [place] [facility] [address] [id number] [place] [address] May, [facility] [place] [facility] [address] [id number] [place] [address] May, [facility] [place] [facility] [address] [id number] [place] [address] May, [facility] [place] [facility] [address] [id number] [place] [address] May, [facility] [place] [facility] [address] [id number] [place] [address] May, [facility] [place] [facility] [address] [id number] [place] [address] May, [facility] [place] [facility] [address] [id number] [place] [address] Mar, [facility] [place] [facility] [address] [id number] [place] [address] Mar, [facility] [place] [facility] [address] [id number] [place] [address] Mar, [facility] [place] [facility] [address] [id number] [place] [address] Feb, [facility] [place] [facility] [address] [id number] [place] [address] Feb, [facility] [place] [facility] [address] [id number] [place] [address] Feb, [facility] [place] [facility] [address] [id number] [place] [address] Feb, [facility] [address] [id number] [place] [address] Jan, [facility] [address] [id number] [place] [address] Jan, [facility] [address] [id number] [place] [address] Jan, [facility] [address] [id number] [place] [address] December, [facility] [address] [id number] [place] [address] Nov, [facility] [address] [id number] [place] [address] Oct, [facility] [address] [id number] [place] [address] Oct, [facility] [address] [id number] [place] [address] Oct, [facility] [address] [id number] [place] [address] Oct, [facility] [address] [id number] [place] [address] Aug, [facility] [address] [id number] [place] [address] Aug, [facility] [address] [id number] [place] [address] Aug, [facility] [place] [facility] [address] [id number] [place] [address] Aug, [facility] [address] [id number] [place] [address] Aug, [facility] [address] [id number] [place] [address] Aug, [facility] [address] [id number] [place] [address] Aug, [facility] [place] [facility] [address] [id number] [place] [address] Aug, [facility] [place] [facility] [address] [id number] [place] [address] Jul, [facility] [place] [facility] [address] [id number] [place] [address] Jun, [facility] [place] [facility] [address] [id number] [place] [address] Jun, [facility] [place] [facility] [address] [id number] [place] [address] Jul, [facility] [place] [facility] [address] [id number] [place] [address] Jul, [facility] [place] [facility] [address] [id number] [place] [address] Jul, [facility] [place] [facility] [address] [id number] [place] [address] Jul, [facility] [place] [facility] [address] [id number] [place] [address] Jul, [facility] [place] [facility] [address] [id number] [place] [address] Jun, [facility] [place] [facility] [address] [id number] [place] [address] May, [facility] [place] [facility] [address] [id number] [place] [address] Mar, [facility] [place] [facility] [address] [id number] [place] [address] Oct, [facility] [place] [facility] [address] [id number] [place] [address] Aug, [facility] [place] [facility] [address] [id number] [address] Jul, [facility] [id number] [address] Jul, [facility] [id number], [place] [address] Jun, [facility] [id number] [place] [address] Jun, [facility] [id number] [place] [address] May, [facility] [id number] [place] [address] May, [facility] [id number] [place] [address] Mar, [facility] [id number] [place] [address] Mar, [facility] [id number] [place] [address] Oct, IMMUNIZATIONS No Known Immunizations SOCIAL HISTORY Never Assessed REASON FOR VISIT pain, shoulder, PT reports she starts physcial therapy and has seen Dr. Marquez. PT notes she will f/u with Dr. Marquez. Lashae [facility] PLAN OF CARE Activity Details Follow Up 3 Months Reason: VITAL SIGNS Height 68 in 2018-06-15 Weight 201.9 lbs 2018-06-15 Temperature 97.8 degrees Fahrenheit 2018-06-15 Heart Rate 81 bpm 2018-06-15 Respiratory Rate 18 2018-06-15 Oximetry 98 % 2018-06-15 BMI 30.70 kg/m2 2018-06-15 Blood pressure systolic 122 mmHg 2018-06-15 Blood pressure diastolic 78 mmHg 2018-06-15 MEDICATIONS Medication Instructions Dosage Frequency Start Date End Date Duration Status Effexor XR 37.5 MG Orally Once a day 1 capsule with food 24h Jan, 30 days Not-Taking Wellbutrin SR 150 MG Orally Once a day 1 tablet in the morning 24h Jun, 30 day(s) Active Diclofenac Sodium ER 100 mg Orally Once a day 1 tablet with food or milk 24h Jun, Oct, 30 day(s) Active Trazodone HCl 100 MG Orally Once a day 1 tablet at bedtime 24h Feb, Not-Taking Xanax 1 mg Orally three times a day 1 tablet 8h 30 days Active Amoxicillin 500 MG Orally 4 times a day 2 capsules stat and then take 1 capsule 6h May, 10 days Not-Taking Protonix 40 MG Orally Once a day 1 tablet 24h 30 Not-Taking Magic Mouthwash Apply medicated swab to sore areas of the mouth to numb the pain As needed Dip cotton swab into medication May, As needed Not-Taking RESULTS No Results PROCEDURES No Known [...] disc replacement L1- L5 - Dr Muhammad ([place]) Surgical History appendectomy 1983 Surgical History hysterectomy 1993 Surgical History dilatation and curettage Surgical History heart cath- Dr Shaw [address] Meza bowel and intestines 2015 Hospitalization History Hospitalization for surgery only
--- OUTSIDE RECORDS SUMMARY | 2019-01-03 13:58 | XMS REPORT ---
Author Author WILD RODRIGUEZ Organization [facility] Address [address] [place] [address] Care Team Providers Care Platform Stapler Name Role Phone WILD RODRIGUEZ Unavailable PROBLEMS Type Condition ICD9-CM Code QBT98-ID Code Onset Dates Condition Status SNOMED Code Problem Generalized anxiety disorder F41.1 Active 45432298 Problem PTSD (post-traumatic stress disorder) F43.10 Active 10725420 Problem Cannabis abuse F12.10 Active 92984164 Problem Prediabetes 790.29 Active 4539837 Problem Mixed hyperlipidemia E78.2 Active 267155191 Problem Major depressive disorder, recurrent episode, moderate F33.1 Active 674567268 Problem GERD with esophagitis K21.0 Active 399127420 Problem Cocaine use disorder, moderate, in sustained remission F14.21 Active 69632019 Problem Alcohol use disorder, mild, in sustained remission F10.11 Active 54717578 Problem Tobacco use Z72.0 Active 522806338 Problem Methamphetamine use disorder, severe, 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 Active 44001047 Problem Opioid use disorder, moderate, in sustained remission F11.21 Active 28895469 ALLERGIES No Information ENCOUNTERS Encounter Location Date Diagnosis [facility] [id number] [id number] Aug, [facility] [id number] [place] [address] Jun, [facility] [address] [address] Jun, [facility] [id number] [place] [address] May, [facility] [address] [address] May, Cocaine use disorder, moderate, in sustained remission F14.21 [facility] [address], [place] [address] 25 May, 2018 [facility] [address] [place] [address] May, Dental examination Z01.20 [facility] [id number] [id number] 09 May, 2018 Dental examination Z01.20 and Caries K02.9 [place] [facility] [id number] [place] [address] May, Common wart B07.8 [facility] [id number] [place] [address] May, [facility] [id number] [place] [address] 27 Apr, 2018 Cocaine use disorder, moderate, in sustained remission F14.21 [facility] [address] [place] [address] 14 Apr, 2018 [facility] [address] [place] [id number] 13 Apr, 2018 Dental examination Z01.20 [facility] [address] [place] [id number] 10 Mar, 2018 Encounter for dental exam and cleaning w/o abnormal findings Z01.20 [facility] [address] [address] Mar, [facility] [address] [place] [address] Feb, Cocaine use disorder, moderate, in sustained remission F14.21 ; Opioid use disorder, moderate, in sustained remission F11.21 ; Alcohol use disorder, mild, in sustained remission F10.11 ; Tobacco use Z72.0 ; PTSD (post-traumatic stress disorder) F43.10 ; Methamphetamine use disorder, severe, 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 ; Generalized anxiety disorder F41.1 ; Cannabis abuse F12.10 and Major depressive disorder, recurrent episode, moderate F33.1 [facility] [address] [address] Jan, Cocaine use disorder, moderate, in sustained remission F14.21 [facility] [address] [place] [address] Jan, Cocaine use disorder, moderate, in sustained remission F14.21 ; Opioid use disorder, moderate, in sustained remission F11.21 ; Alcohol use disorder, mild, in sustained remission F10.11 ; Tobacco use Z72.0 ; PTSD (post-traumatic stress disorder) F43.10 ; Methamphetamine use disorder, severe, 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 ; Generalized anxiety disorder F41.1 ; Cannabis abuse F12.10 and Major depressive disorder, recurrent episode, moderate F33.1 [facility] [address] [place] [address] Jan, Dysuria R30.0 and GERD with esophagitis K21.0 [address] [place] [address] December, Major depressive disorder, recurrent episode, moderate F33.1 [facility] [address] [place] [address] December, [facility] [address] [place] [address] December, Major depressive disorder, recurrent episode, moderate F33.1 ; Generalized anxiety disorder F41.1 ; Cannabis abuse F12.10 ; PTSD (post-traumatic stress disorder) F43.10 ; Methamphetamine use disorder, severe, 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 ; Cocaine use disorder, moderate, in sustained remission F14.21 ; Opioid use disorder, moderate, in sustained remission F11.21 ; Alcohol use disorder, mild, in sustained remission F10.11 and Tobacco use Z72.0 [facility] [address] [address] Nov, [facility] [address] [place], [place] [id number] [address] Nov, [place] [id number] [address] 04 Nov, 2017 Wellness examination Z00.00 ; Encounter for immunization Z23 ; Screening for osteoporosis Z13.820 ; Screening for breast cancer Z12.31 and Left breast lump N63.20 [facility] [address] [id number] Oct, Dental examination Z01.20 [facility] [id number] [place] [address] 21 Oct, 2017 [facility] [id number] [place] [address] Oct, [facility] [id number] [place] [address] 16 Sep, 2017 [facility] [id number] [place] [address] 15 Sep, 2017 [facility] [id number] [place] [address] 14 Sep, 2017 Left otitis media with effusion H65.92 ; Acute suppurative otitis media of right ear without spontaneous rupture of tympanic membrane, recurrence not specified H66.001 ; Dizziness R42 and Fatigue 780.79 [place] [facility] [address] [place] [address] Aug, Major depressive disorder, recurrent episode, moderate [...] F10.11 and Tobacco use Z72.0 [facility] [address], [place] [address] Aug, Ingrown right big toenail L60.0 [facility] [id number], [place] [address] Aug, [facility] [address], [place] [address] Aug, PTSD (post-traumatic stress disorder) F43.10 [facility] [address], [place] [address] Aug, Major depressive disorder, recurrent episode, moderate F33.1 ; Generalized anxiety disorder F41.1 and Cannabis abuse F12.10 [facility] [address], [place] [address] Jul, [facility] [id number] [place] [address] Jul, [facility] [id number] [place] [address] Jul, [facility] [id number] [place] [address] Jul, Major depressive disorder, recurrent episode, moderate F33.1 ; Generalized anxiety disorder F41.1 and Cannabis abuse F12.10 [facility] [address], [place] [address] Jul, [facility] [address], [place] [address] Jul, [facility] [address], [place] [address] Jul, Hyperlipidemia 272.4 [facility] [address], [place] [address] Jul, PTSD (post-traumatic stress disorder) F43.10 [facility] [address], [place] [address] Jul, Tobacco use Z72.0 ; Alcohol use disorder, mild, in sustained remission F10.11 ; Opioid use disorder, moderate, in sustained remission F11.21 ; Methamphetamine use disorder, severe, 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 ; Cocaine use disorder, moderate, in sustained remission F14.21 ; PTSD (post-traumatic stress disorder) F43.10 ; Major depressive disorder, recurrent episode, moderate F33.1 ; Generalized anxiety disorder F41.1 and Cannabis abuse F12.10 [facility] [address] [place] [address] Jul, [place] [address] [address] Jul, Dysuria R30.0 and Mixed hyperlipidemia E78.2 [facility] [id number] [place] [address] Jun, Major depressive disorder, recurrent episode, moderate F33.1 ; Generalized anxiety disorder F41.1 and Cannabis abuse F12.10 [facility] [id number] [place] [address] Jun, [facility] [facility] [id number] [place] [address] Jun, Generalized anxiety disorder F41.1 ; Major depressive disorder, recurrent episode, moderate F33.1 ; PTSD (post-traumatic stress disorder) F43.10 ; Opioid use disorder, moderate, in sustained remission F11.21 ; Cannabis abuse F12.10 ; Alcohol use disorder, mild, in sustained remission F10.11 ; Methamphetamine use disorder, severe, 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 ; Cocaine use disorder, moderate, in sustained remission F14.21 and Tobacco use Z72.0 [facility] [id number] [place] [address] Jun, Major depressive disorder, recurrent episode, moderate F33.1 ; Generalized anxiety disorder F41.1 and Cannabis abuse F12.10 [facility] [id number] [place] [address] Jun, [facility] [id number] [place] [address] Jun, [facility] [id number] [place] [address] Jun, Major depressive disorder, recurrent episode, moderate F33.1 ; Generalized anxiety disorder F41.1 and Cannabis abuse F12.10 [facility] [id number] [place] [id number] Mar, Dental examination Z01.20 [facility] [id number] [place] [id number] Feb, Dental examination Z01.20 [facility] [id number] [place] [address] Mar, [facility] [id number] [place] [address] Mar, [facility] [id number] [place] [address] Feb, Hyperlipidemia 272.4 and Prediabetes 790.29 [facility] [address] [address] Feb, Fatigue 780.79 and Hyperlipidemia 272.4 [facility] [id number] [place] [address] Feb, Lumbago 724.2 ; Hyperlipidemia 272.4 ; Insomnia 780.52 and Fatigue 780.79 [facility] [id number] [place] [address] Nov, [facility] [id number] [place] [address] Nov, [facility] [id number] [place] [address] Mar, [facility] [address] [address] Mar, [facility] [id number] [place] [address] Jan, [facility] [id number] [place] [address] Jan, [facility] [place] [facility] [address] [id number] [place] [address] December, [facility] [place] [facility] [address] [id number] [place] [address] December, [facility] [place] [facility] [address] [id number] [place] [address] Nov, [facility] [place] [facility] [address] [id number] [place] [address] Nov, [facility] [place] [facility] [address] [id number] [place] [address] Nov, [facility] [place] [facility] [address] [id number] [place] [address] Nov, [facility] [place] [facility] [address] [id number] [place] [address] Nov, [facility] [place] [facility] [address] [id number] [place] [address] Nov, [facility] [place] [facility] [address] [id number] [place] [address] Oct, [facility] [place] [facility] [address] [id number] [place] [address] Oct, [facility] [place] [facility] [address] [id number] [place] [address] Oct, [facility] [place] [facility] [address] [id number] [place] [address] Oct, [facility] [place] [facility] [address] [id number] [place] [address] Oct, [facility] [place] [facility] [address] [id number] [place] [address] Oct, [facility] [place] [facility] [address] [id number] [place] [address] Oct, [facility] [place] [facility] [address] [id number] [place] [address] Oct, [facility] [place] [facility] [address] [id number] [place] [address] Oct, [facility] [place] [facility] [address] [facility] [id number] [place] [address] Oct, [facility] [place] [facility] [address] [facility] [id number] [place] [address] Oct, [facility] [place] [facility] [address] [id number] [place] [address] Oct, [facility] [place] [facility] [address] [id number] [place] [address] Oct, [facility] [place] [facility] [address] [facility] [id number] [place] [address] 24 Sep, 2013 [facility] [place] [facility] [address] [facility] [id number] [place] [address] 24 Sep, 2013 [facility] [place] [facility] [address] [facility] [id number] [place] [address] Sep, [facility] [place] [facility] [address] [facility] [id number] [place] [address] Sep, [facility] [place] [facility] [address] [facility] [id number] [place] [address] Sep, [facility] [place] [facility] [address] [facility] [id number] [place] [address] 20 Sep, 2013 [facility] [place] [facility] [address] [facility] [id number] [place] [address] 18 Sep, 2013 [facility] [place] [facility] [address] [facility] [id number] [place] [address] 18 Sep, 2013 [facility] [place] [facility] [address] [facility] [id number] [place] [address] 14 Sep, 2013 [facility] [place] [facility] [address] [facility] [id number] [place] [address] 14 Sep, 2013 [facility] [place] [facility] [address] [id number] [place] [address] 14 Sep, 2013 [facility] [place] [facility] [address] [id number] [place] [address] 14 Sep, 2013 [facility] [place] [facility] [address] [facility] [id number] [place] [address] 14 Sep, 2013 [facility] [place] [facility] [address] [id number] [place] [address] 14 Sep, 2013 [facility] [place] [facility] [address] [id number] [place] [address] Sep, [facility] [place] [facility] [address] [id number] [place] [address] Sep, [facility] [place] [facility] [address] [id number] [place] [address] Sep, [facility] [place] [facility] [address] [id number] [place] [address] Sep, [facility] [place] [facility] [address] [id number] [place] [address] 03 Sep, 2013 [facility] [place] [facility] [address] [facility] [id number] [place] [address] Sep, [facility] [place] [facility] [address] [id number] [place] [address] Aug, [facility] [place] [facility] [address] [id number] [place] [address] Aug, [facility] [place] [facility] [address] [id number] [place] [address] Aug, [facility] [place] [facility] [address] [id number] [place] [address] Aug, [facility] [place] [facility] [address] [facility] [id number] [place] [address] Aug, [facility] [place] [facility] [address] [id number] [place] [address] Jul, [facility] [address] [id number] [place] [address] Jul, [facility] [place] [facility] [address] [id number] [place] [address] Jul, [facility] [place] [facility] [address] [id number] [place] [address] Jul, [facility] [place] [facility] [address] [id number] [place] [address] Jul, [facility] [place] [facility] [address] [id number] [place] [address] Jul, [facility] [place] [facility] [address] [id number] [place] [address] Jul, [facility] [place] [facility] [address] [id number] [place] [address] Jul, [facility] [place] [facility] [address] [id number] [place] [address] Jul, [facility] [place] [facility] [address] [id number] [place] [address] Jun, [facility] [place] [facility] [address] [id number] [place] [address] Jun, [facility] [place] [facility] [address] [id number] [place] [address] Jun, [facility] [place] [facility] [address] [id number] [place] [address] Jun, [facility] [place] [facility] [address] [id number] [place] [address] Jun, [facility] [place] [facility] [address] [id number] [place] [address] Jun, [facility] [place] [facility] [address] [id number] [place] [address] Jun, [facility] [place] [facility] [address] [id number] [place] [address] 18 Jun, 2013 [facility] [place] [facility] [address] [id number] [place] [address] Jun, [facility] [place] [facility] [address] [id number] [place] [address] Jun, [facility] [place] [facility] [address] [id number] [place] [address] May, [facility] [place] [facility] [address] [id number] [place] [address] May, [facility] [place] [facility] [address] [id number] [place] [address] May, [facility] [place] [facility] [address] [id number] [place] [address] May, [facility] [place] [facility] [address] [id number], [place] [address] May, [facility] [place] [facility] [address] [id number] [place] [address] May, [facility] [place] [facility] [address] [id number], [place] [address] May, [facility] [place] [facility] [address] [id number], [place] [address] May, [facility] [place] [facility] [address] [id number], [place] [address] May, [facility] [place] [facility] [address] [id number] [place] [address] 26 Apr, 2013 [facility] [place] [facility] [address] [id number], [place] [address] 16 Apr, 2013 [facility] [place] [facility] [address] [id number], [place] [address] 12 Apr, 2013 [facility] [place] [facility] [address] [id number] [place] [address] Apr, [facility] [address] [id number] [place] [address] Mar, [facility] [place] [facility] [address] [id number] [place] [address] Mar, [facility] [place] [facility] [address] [id number] [place] [address] Mar, [facility] [place] [facility] [address] [id number] [place] [address] Mar, [facility] [place] [facility] [address] [id number] [place] [address] Mar, [facility] [place] [facility] [address] [id number] [place] [address] Mar, [facility] [address] [id number] [place] [address] Mar, [facility] [place] [facility] [address] [id number] [place] [address] Feb, [facility] [place] [facility] [address] [id number] [place] [address] Feb, [facility] [place] [facility] [address] [id number] [place] [address] Feb, [facility] [place] [facility] [address] [id number] [place] [address] Feb, [facility] [place] [facility] [address] [id number] [place] [address] Feb, [facility] [place] [facility] [address] [id number] [place] [address] Feb, [facility] [place] [facility] [address] [id number] [place] [address] Feb, [facility] [place] [facility] [address] [id number] [place] [address] Feb, [facility] [place] [facility] [address] [id number] [place] [address] Feb, [facility] [address] [id number] [place] [address] Feb, [facility] [place] [facility] [address] [id number] [place] [address] Feb, [facility] [address] [id number] [place] [address] Jan, [facility] [address] [id number] [place] [address] Jan, [facility] [place] [facility] [address] [id number] [place] [address] December, [facility] [address] [id number] [place] [address] December, [facility] [address] [id number] [place] [address] Nov, [facility] [address] [id number] [place] [address] Nov, [facility] [address] [id number] [place] [address] Oct, [facility] [place] [facility] [address] [id number] [place] [address] Oct, [facility] [place] [facility] [address] [id number] [place] [address] Oct, [facility] [place] [facility] [address] [id number] [place] [address] Oct, [facility] [place] [facility] [address] [id number] [place] [address] Sep, [facility] [place] [facility] [address] [id number] [place] [address] Sep, [facility] [place] [facility] [address] [id number] [place] [address] Sep, [facility] [address] [id number] [place] [address] Sep, [facility] [place] [facility] [address] [id number] [place] [address] Aug, [facility] [place] [facility] [address] [facility] [id number] [place] [address] Aug, [facility] [place] [facility] [address] [id number] [place] [address] Jul, [facility] [address] [id number] [place] [address] Jul, [facility] [place] [facility] [address] [id number] [place] [address] Jul, [facility] [address] [facility] [id number] [place] [address] Jul, [facility] [place] [facility] [address] [facility] [id number] [place] [address] Jul, [facility] [address] [facility] [id number] [place] [address] Jul, [facility] [place] [facility] [address] [facility] [id number] [place] [address] Jun, [facility] [place] [facility] [address] [id number] [place] [address] Jun, [facility] [place] [facility] [address] [id number] [address] Jun, [facility] [place] [facility] [address] [id number] [place] [address] Jun, [facility] [place] [facility] [address] [facility] [id number] [place] [address] Jun, [facility] [place] [facility] [address] [facility] [id number] [place] [address] May, [facility] [place] [facility] [address] [id number] [place] [address] May, [facility] [place] [facility] [address] [id number] [place] [address] May, [facility] [place] [facility] [address] [id number] [place] [address] May, [facility] [place] [facility] [address] [id number] [place] [address] May, [facility] [place] [facility] [address] [id number] [place] [address] May, [facility] [place] [facility] [address] [id number] [place] [address] May, [facility] [place] [facility] [address] [id number] [place] [address] May, [facility] [place] [facility] [address] [id number] [place] [address] Mar, [facility] [place] [facility] [address] [id number] [place] [address] Mar, [facility] [place] [facility] [address] [id number] [place] [address] Mar, [facility] [place] [facility] [address] [id number] [place] [address] Feb, [facility] [place] [facility] [address] [id number] [place] [address] Feb, [facility] [place] [facility] [address] [id number] [place] [address] Feb, [facility] [place] [facility] [address] [id number] [place] [address] Feb, [facility] [place] [facility] [address] [id number] [place] [address] Jan, [facility] [place] [facility] [address] [id number] [place] [address] Jan, [facility] [address] [id number] [place] [address] Jan, [facility] [place] [facility] [address] [id number] [place] [address] December, [facility] [place] [facility] [address] [id number] [place] [address] Nov, [facility] [place] [facility] [address] [id number] [place] [address] Oct, [facility] [place] [facility] [address] [id number] [place] [address] Oct, [facility] [place] [facility] [address] [id number] [place] [address] Oct, [facility] [place] [facility] [address] [id number] [place] [address] Oct, [facility] [place] [facility] [address] [id number] [place] [address] Aug, [facility] [place] [facility] [address] [id number] [place] [address] Aug, [facility] [place] [facility] [address] [id number] [place] [address] Aug, [facility] [place] [facility] [address] [id number] [address] Aug, [facility] [place] [facility] [address] [id number] [address] Aug, [facility] [place] [facility] [address] [id number] [place] [address] Aug, [facility] [place] [facility] [address] [id number], [place] [address] Aug, [facility] [place] [facility] [address] [id number] [place] [address] Aug, [facility] [place] [facility] [address] [id number] [place] [address] 08 Jul, 2011 [facility] [address] [id number] [place] [address] 29 Jun, 2011 [facility] [address] [id number] [place] [address] 29 Jun, 2011 [facility] [address] [id number] [place] [address] 31 Jul, 2010 [facility] [place] [facility] [address] [id number] [place] [address] 22 Jul, 2010 [facility] [address] [id number] [place] [address] 22 Jul, 2010 [facility] [address] [id number] [place] [address] 14 Jul, 2010 [facility] [address] [id number] [place] [address] 14 Jul, 2010 [facility] [address] [id number] [place] [address] 24 Jun, 2010 [facility] [address] [id number] [place] [address] May, [facility] [address] [id number] [place] [address] Mar, [facility] [address] [id number] [place] [address] Oct, [facility] [place] [facility] [address] [id number] [place] [address] Aug, [facility] [place] [facility] [address] [id number] [place] [address] 15 Jul, 2009 [facility] [place] [facility] [address] [id number] [place] [address] Jul, [facility] [address] [id number] [place] [address] Jun, [facility] [address] [id number] [address] Jun, [facility] [address] [id number], [place] [address] May, [facility] [address] [id number], [place] [address] May, [facility] [address] [id number], [place] [address] Mar, [facility] [address] [id number] [address] Mar, [facility] [address] [id number] [address] Oct, IMMUNIZATIONS No Known Immunizations SOCIAL HISTORY Never Assessed REASON FOR VISIT DI for referral PLAN OF CARE VITAL SIGNS MEDICATIONS [...] disc replacement L1- L5 - Dr Muhammad ([place]) Surgical History appendectomy 1983 Surgical History hysterectomy 1993 Surgical History dilatation and curettage Surgical History heart cath- Dr Shaw [address] Meza bowel and intestines 2015 Hospitalization History Hospitalization for surgery only
--- OUTSIDE RECORDS SUMMARY | 2019-01-03 13:59 | XMS REPORT ---
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 Role Phone MELISSA DAHL Unavailable PROBLEMS Type Condition ICD9-CM Code LIH95-VQ Code Onset Dates Condition Status SNOMED Code Problem Generalized anxiety disorder F41.1 Active 88993925 Problem PTSD (post-traumatic stress disorder) F43.10 Active 61061948 Problem Cannabis abuse F12.10 Active 11960225 Problem Prediabetes 790.29 Active 2792572 Problem Mixed hyperlipidemia E78.2 Active 818449000 Problem Major depressive disorder, recurrent episode, moderate F33.1 Active 472054140 Problem GERD with esophagitis K21.0 Active 846226585 Problem Cocaine use disorder, moderate, in sustained remission F14.21 Active 99281803 Problem Alcohol use disorder, mild, in sustained remission F10.11 Active 26485488 Problem Tobacco use Z72.0 Active 595182648 Problem Methamphetamine use disorder, severe, 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 Active 54358791 Problem Opioid use disorder, moderate, in sustained remission F11.21 Active 48850430 ALLERGIES No Information ENCOUNTERS Encounter Location Date Diagnosis [facility] [id number] [id number] Aug, [facility] [id number] [place] [address] Jun, [facility] [address] [address] Jun, [facility] [id number] [place] [address] May, Cocaine use disorder, moderate, in sustained remission F14.21 [facility] [address] [address] May, [address] [place] [address] 12 May, 2018 Dental examination Z01.20 [facility] [id number] [place] [id number] 09 May, 2018 Dental examination Z01.20 and Caries K02.9 [facility] [id number] [place] [address] May, Common wart B07.8 [facility] [id number] [place] [address] May, [facility] [id number] [place] [address] 27 Apr, 2018 Cocaine use disorder, moderate, in sustained remission F14.21 [facility] [facility] [id number] [place] [address] 14 Apr, 2018 [facility] [id number] [place] [id number] 13 Apr, 2018 Dental examination Z01.20 [facility] [id number] [place] [id number] 10 Mar, 2018 Encounter for dental exam and cleaning w/o abnormal findings Z01.20 [facility] [id number] [place] [address] Mar, [facility] [id number] [place] [address] Feb, Cocaine use disorder, moderate, in sustained [...] moderate F33.1 [facility] [address] [place] [address] Jan, Cocaine use disorder, moderate, in sustained remission F14.21 [facility] [address] [address] Jan, Cocaine use disorder, moderate, in sustained [...] moderate F33.1 [facility] [address] [place] [address] Jan, Dysuria R30.0 and GERD with esophagitis K21.0 [place] [id number] [place] [address] December, Major depressive disorder, recurrent episode, moderate F33.1 [facility] [address] [address] December, [facility] [address] [place] [address] December, Major depressive disorder, recurrent episode, moderate [...] use Z72.0 [facility] [address] [address] Nov, [facility] [address] [place] [id number] [address] Nov, [facility] [id number] [place] [address] Nov, Wellness examination Z00.00 ; Encounter for immunization Z23 ; Screening for osteoporosis Z13.820 ; Screening for breast cancer Z12.31 and Left breast lump N63.20 [facility] [id number] [place] [id number] Oct, Dental examination Z01.20 [facility] [address] [place] [address] Oct, [facility] [id number] [place] [address] Oct, [facility] [id number] [place] [address] 16 Sep, [id number] [place] [address] 15 Sep, 2017 [facility] [id number] [place] [address] 14 Sep, 2017 Left otitis media with effusion H65.92 ; Acute suppurative otitis media of right ear without spontaneous rupture of tympanic membrane, recurrence not specified H66.001 ; Dizziness R42 and Fatigue 780.79 [place] [address] [place] [address] Aug, Major depressive disorder, recurrent episode, moderate F33.1 ; Generalized anxiety disorder F41.1 ; Cannabis abuse F12.10 ; PTSD (post-traumatic stress disorder) F43.10 ; Methamphetamine use disorder, severe, 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 ; Cocaine use disorder, moderate, in sustained remission F14.21 ; Opioid use disorder, moderate, in sustained remission F11.21 ; Alcohol use disorder, mild, in sustained remission F10.11 and Tobacco use Z72.0 [facility] [address] [place] [address] Aug, Ingrown right big toenail L60.0 [facility] [address] [place] [address] Aug, [facility] [address] [address] 15 Aug, 2017 PTSD (post-traumatic stress disorder) F43.10 [facility] [address] [address] Aug, Major depressive disorder, recurrent episode, moderate F33.1 ; Generalized anxiety disorder F41.1 and Cannabis abuse F12.10 [facility] [id number] [place] [address] Jul, [facility] [address] [place] [address] Jul, [facility] [id number] [place] [address] Jul, [facility] [id number] [place] [address] Jul, Major depressive disorder, recurrent episode, moderate F33.1 ; Generalized anxiety disorder F41.1 and Cannabis abuse F12.10 [facility] [address] [address] Jul, [facility] [id number] [place] [address] Jul, [facility] [address] [address] Jul, Hyperlipidemia 272.4 [facility] [address] [address] Jul, PTSD (post-traumatic stress disorder) F43.10 [facility] [address] [address] 14 Jul, 2017 Tobacco use Z72.0 ; [...] anxiety disorder F41.1 and Cannabis abuse F12.10 [facility] [facility] [id number] [place] [address] Jul, [facility] [id number] [place] [address] Jul, Dysuria R30.0 and Mixed hyperlipidemia E78.2 [facility] [id number] [place] [address] Jun, Major depressive disorder, recurrent episode, moderate F33.1 ; Generalized anxiety disorder F41.1 and Cannabis abuse F12.10 [place] [facility] [id number] [place] [address] Jun, [facility] [id number] [place] [address] Jun, Generalized anxiety disorder F41.1 ; Major depressive disorder, recurrent episode, moderate F33.1 ; PTSD (post-traumatic stress disorder) F43.10 ; Opioid use disorder, moderate, in sustained remission F11.21 ; Cannabis abuse F12.10 ; Alcohol use disorder, mild, in sustained remission F10.11 ; Methamphetamine use disorder, severe, 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 ; Cocaine use disorder, moderate, in sustained remission F14.21 and Tobacco use Z72.0 [place] [address] [place] [address] Jun, Major depressive disorder, recurrent episode, moderate F33.1 ; Generalized anxiety disorder F41.1 and Cannabis abuse F12.10 [place] [address] [address] Jun, [facility] [id number] [place] [address] Jun, [place] [facility] [address] [place] [address] Jun, Major depressive disorder, recurrent episode, moderate F33.1 ; Generalized anxiety disorder F41.1 and Cannabis abuse F12.10 [facility] [id number] [id number] Mar, Dental examination Z01.20 [facility] [id number] [place] [id number] Feb, Dental examination Z01.20 [facility] [id number] [place] [address] Mar, [facility] [id number] [place] [address] Mar, [facility] [address] [address] Feb, Hyperlipidemia 272.4 and Prediabetes 790.29 [facility] [id number] [place] [address] Feb, Fatigue 780.79 and Hyperlipidemia 272.4 [facility] [id number] [place] [address] Feb, Lumbago 724.2 ; Hyperlipidemia 272.4 ; Insomnia 780.52 and Fatigue 780.79 [facility] [id number] [place] [address] Nov, [facility] [id number] [place] [address] Nov, [facility] [id number] [place] [address] Mar, [facility] [id number] [place] [address] Mar, [facility] [id number] [place] [address] Jan, [facility] [id number] [place] [address] Jan, [facility] [id number] [place] [address] December, [facility] [place] [facility] [address] [id number] [place] [address] December, [facility] [place] [facility] [address] [id number] [place] [address] Nov, [facility] [place] [facility] [address] [id number] [place] [address] Nov, [facility] [place] [facility] [address] [id number] [place] [address] Nov, [facility] [place] [facility] [address] [id number] [place] [address] Nov, [facility] [place] [facility] [address] [id number] [place] [address] Nov, [facility] [place] [facility] [address] [id number] [place] [address] Nov, [facility] [place] [facility] [address] [id number] [place] [address] Oct, [facility] [place] [facility] [address] [id number] [place] [address] 31 Oct, 2013 [facility] [place] [facility] [address] [id number] [place] [address] Oct, [facility] [place] [facility] [address] [id number] [place] [address] Oct, [facility] [place] [facility] [address] [id number] [place] [address] Oct, [facility] [place] [facility] [address] [id number] [place] [address] Oct, [facility] [place] [facility] [address] [id number] [place] [address] Oct, [facility] [place] [facility] [address] [id number] [place] [address] Oct, [facility] [place] [facility] [address] [id number] [place] [address] 11 Oct, 2013 [facility] [place] [facility] [address] [id number] [place] [address] 04 Oct, 2013 [facility] [place] [facility] [address] [id number] [place] [address] 04 Oct, 2013 [facility] [place] [facility] [address] [id number] [place] [address] Oct, [facility] [place] [facility] [address] [id number] [place] [address] Oct, [facility] [place] [facility] [address] [id number] [place] [address] 24 Sep, 2013 [facility] [place] [facility] [address] [id number] [place] [address] 24 Sep, 2013 [facility] [place] [facility] [address] [id number] [place] [address] 20 Sep, 2013 [facility] [place] [facility] [address] [id number] [place] [address] 20 Sep, 2013 [facility] [place] [facility] [address] [id number] [place] [address] 20 Sep, 2013 [facility] [place] [facility] [address] [facility] [id number] [place] [address] 20 Sep, 2013 [facility] [place] [facility] [address] [facility] [id number] [place] [address] 18 Sep, 2013 [facility] [place] [facility] [address] [id number] [place] [address] 18 Sep, 2013 [facility] [place] [facility] [address] [id number] [place] [address] 14 Sep, 2013 [facility] [place] [facility] [address] [facility] [id number] [place] [address] 14 Sep, 2013 [facility] [place] [facility] [address] [facility] [id number] [place] [address] 14 Sep, 2013 [facility] [place] [facility] [address] [id number] [place] [address] 14 Sep, 2013 [facility] [place] [facility] [address] [id number] [place] [address] 14 Sep, 2013 [facility] [place] [facility] [address] [facility] [id number] [place] [address] 14 Sep, 2013 [facility] [place] [facility] [address] [id number] [place] [address] 13 Sep, 2013 [facility] [place] [facility] [address] [id number] [place] [address] Sep, [facility] [place] [facility] [address] [id number] [place] [address] Sep, [facility] [place] [facility] [address] [facility] [id number] [place] [address] Sep, [facility] [place] [facility] [address] [id number] [place] [address] Sep, [facility] [place] [facility] [address] [id number] [place] [address] Sep, [facility] [place] [facility] [address] [facility] [id number] [place] [address] Aug, [facility] [place] [facility] [address] [facility] [id number] [place] [address] Aug, [facility] [place] [facility] [address] [id number] [address] Aug, [facility] [place] [facility] [address] [id number] [place] [address] Aug, [facility] [place] [facility] [address] [facility] [id number] [place] [address] Aug, [facility] [place] [facility] [address] [facility] [id number] [address] Jul, [facility] [place] [facility] [address] [id number] [place] [address] Jul, [facility] [place] [facility] [address] [id number] [place] [address] Jul, [facility] [place] [facility] [address] [id number] [place] [address] Jul, [facility] [place] [facility] [address] [id number] [place] [address] Jul, [facility] [place] [facility] [address] [id number] [place] [address] Jul, [facility] [place] [facility] [address] [id number] [place] [address] Jul, [facility] [place] [facility] [address] [id number] [place] [address] Jul, [facility] [place] [facility] [address] [id number] [place] [address] Jul, [facility] [place] [facility] [address] [id number] [place] [address] Jun, [facility] [place] [facility] [address] [id number] [place] [address] Jun, [facility] [place] [facility] [address] [id number] [place] [address] Jun, [facility] [place] [facility] [address] [id number] [place] [address] Jun, [facility] [place] [facility] [address] [id number] [place] [address] Jun, [facility] [place] [facility] [address] [id number] [place] [address] Jun, [facility] [place] [facility] [address] [id number] [place] [address] Jun, [facility] [place] [facility] [address] [id number] [address] Jun, [facility] [place] [facility] [address] [id number] [place] [address] Jun, [facility] [place] [facility] [address] [id number] [place] [address] Jun, [facility] [place] [facility] [address] [id number] [place] [address] May, [facility] [place] [facility] [address] [id number] [place] [address] May, [facility] [place] [facility] [address] [id number] [place] [address] May, [facility] [place] [facility] [address] [id number] [place] [address] May, [facility] [place] [facility] [address] [id number] [place] [address] May, [facility] [place] [facility] [address] [id number] [place] [address] May, [facility] [place] [facility] [address] [id number] [place] [address] May, [facility] [place] [facility] [address] [id number] [place] [address] May, [facility] [place] [facility] [address] [id number] [address] May, [facility] [place] [facility] [address] [id number] [address] 26 Apr, 2013 [facility] [place] [facility] [address] [id number] [place] [address] 16 Apr, 2013 [facility] [place] [facility] [address] [id number] [place] [address] 12 Apr, 2013 [facility] [place] [facility] [address] [id number] [place] [address] 06 Apr, 2013 [facility] [place] [facility] [address] [id number] [place] [address] Mar, [facility] [address] [id number] [place] [address] Mar, [facility] [address] [id number] [place] [address] Mar, [facility] [address] [id number] [place] [address] Mar, [facility] [address] [id number] [place] [address] Mar, [facility] [address] [id number] [place] [address] Mar, [facility] [address] [id number] [place] [address] Mar, [facility] [address] [id number] [place] [address] Feb, [facility] [address] [id number] [place] [address] Feb, [facility] [address] [id number] [place] [address] Feb, [facility] [address] [id number] [place] [address] Feb, [facility] [place] [facility] [address] [id number] [place] [address] Feb, [facility] [address] [id number] [place] [address] Feb, [facility] [place] [facility] [address] [id number] [place] [address] Feb, [facility] [place] [facility] [address] [id number] [place] [address] Feb, [facility] [place] [facility] [address] [id number] [place] [address] Feb, [facility] [address] [id number] [place] [address] Feb, [facility] [place] [facility] [address] [id number] [place] [address] Feb, [facility] [place] [facility] [address] [id number] [place] [address] Jan, [facility] [place] [facility] [address] [id number] [place] [address] Jan, [facility] [address] [id number] [place] [address] December, [facility] [place] [facility] [address] [id number] [place] [address] December, [facility] [place] [facility] [address] [id number] [place] [address] Nov, [facility] [place] [facility] [address] [id number] [place] [address] Nov, [facility] [place] [facility] [address] [id number] [place] [address] Oct, [facility] [place] [facility] [address] [id number] [place] [address] Oct, [facility] [place] [facility] [address] [id number] [place] [address] Oct, [facility] [place] [facility] [address] [id number] [address] Oct, [facility] [place] [facility] [address] [id number] [place] [address] Sep, [facility] [place] [facility] [address] [id number] [place] [address] Sep, [facility] [place] [facility] [address] [id number] [place] [address] Sep, [facility] [place] [facility] [address] [id number] [place] [address] Sep, [facility] [address] [id number] [place] [address] Aug, [facility] [place] [facility] [address] [id number] [place] [address] Aug, [facility] [place] [facility] [address] [id number] [place] [address] Jul, [facility] [place] [facility] [address] [id number] [place] [address] Jul, [facility] [place] [facility] [address] [id number] [place] [address] Jul, [facility] [place] [facility] [address] [id number] [place] [address] Jul, [facility] [place] [facility] [address] [id number] [place] [address] Jul, [facility] [place] [facility] [address] [id number] [place] [address] Jul, [facility] [place] [facility] [address] [id number] [place] [address] Jun, [facility] [place] [facility] [address] [facility] [id number] [place] [address] Jun, [facility] [place] [facility] [address] [id number] [place] [address] Jun, [facility] [place] [facility] [address] [id number] [place] [address] Jun, [facility] [place] [facility] [address] [id number] [place] [address] Jun, [facility] [place] [facility] [address] [id number] [place] [address] May, [facility] [place] [facility] [address] [id number] [place] [address] May, [facility] [place] [facility] [address] [id number] [place] [address] May, [facility] [place] [facility] [address] [id number] [place] [address] May, [facility] [place] [facility] [address] [id number] [place] [address] May, [facility] [place] [facility] [address] [id number] [place] [address] May, [facility] [place] [facility] [address] [id number] [place] [address] May, [facility] [place] [facility] [address] [id number] [place] [address] May, [facility] [place] [facility] [address] [id number] [place] [address] Mar, [facility] [place] [facility] [address] [id number] [place] [address] Mar, [facility] [place] [facility] [address] [id number] [place] [address] Mar, [facility] [place] [facility] [address] [id number] [place] [address] Feb, [facility] [place] [facility] [address] [id number] [place] [address] Feb, [facility] [place] [facility] [address] [id number] [place] [address] Feb, [facility] [place] [facility] [address] [id number] [place] [address] Feb, [facility] [place] [facility] [address] [id number] [place] [address] Jan, [facility] [place] [facility] [address] [id number] [place] [address] Jan, [facility] [place] [facility] [address] [id number] [place] [address] Jan, [facility] [address] [id number] [place] [address] December, [facility] [place] [facility] [address] [id number] [place] [address] Nov, [facility] [place] [facility] [address] [id number] [place] [address] Oct, [facility] [place] [facility] [address] [id number] [place] [address] Oct, [facility] [place] [facility] [address] [id number] [place] [address] Oct, [facility] [place] [facility] [address] [id number] [place] [address] Oct, [facility] [place] [facility] [address] [id number] [place] [address] Aug, [facility] [place] [facility] [address] [id number] [place] [address] Aug, [facility] [place] [facility] [address] [id number] [place] [address] Aug, [facility] [place] [facility] [address] [id number] [place] [address] Aug, [facility] [place] [facility] [address] [id number] [address] Aug, [facility] [place] [facility] [address] [id number] [place] [address] Aug, [facility] [place] [facility] [address] [id number] [place] [address] Aug, [facility] [place] [facility] [address] [id number] [place] [address] Aug, [facility] [place] [facility] [address] [id number] [place] [address] Jul, [facility] [place] [facility] [address] [id number] [place] [address] 29 Jun, 2011 [facility] [address] [id number] [place] [address] 29 Jun, 2011 [facility] [address] [id number] [place] [address] 31 Jul, 2010 [facility] [address] [id number] [place] [address] 22 Jul, 2010 [facility] [address] [id number] [place] [address] 22 Jul, 2010 [facility] [address] [id number] [place] [address] 14 Jul, 2010 [facility] [address] [id number] [place] [address] 14 Jul, 2010 [facility] [address] [id number] [place] [address] 24 Jun, 2010 [facility] [address] [id number] [place] [address] May, [facility] [address] [id number] [place] [address] Mar, [facility] [address] [id number] [place] [address] Oct, [facility] [address] [id number] [place] [address] Aug, [facility] [address] [id number] [place] [address] 15 Jul, 2009 [facility] [address] [id number] [place] [address] Jul, [facility] [address] [id number] [place] [address] Jun, [facility] [address] [id number] [place] [address] Jun, [facility] [address] [facility] [id number] [place] [address] May, [facility] [address] [id number] [place] [address] May, [facility] [address] [facility] [id number] [place] [address] Mar, [facility] [address] [id number] [address] Mar, [facility] [address] [facility] [id number] [place] [address] Oct, IMMUNIZATIONS No Known Immunizations SOCIAL HISTORY [...] disc replacement L1- L5 - Dr Muhammad ([place]) Surgical History appendectomy 1983 Surgical History hysterectomy 1993 Surgical History dilatation and curettage Surgical History heart cath- Dr Shaw [address] Meza bowel and intestines 2015 Hospitalization History Hospitalization for surgery only
--- OUTSIDE RECORDS SUMMARY | 2019-01-03 13:59 | XMS REPORT ---
Author Author WILD RODRIGUEZ Organization [facility] Address [address] [place] [address] Care Team Providers Care Assistant Auditor Name Role Phone WILD RODRIGUEZ Unavailable PROBLEMS Type Condition ICD9-CM Code [id number] Code Onset Dates Condition Status SNOMED Code Problem Generalized anxiety disorder F41.1 Active 55132986 Problem PTSD (post-traumatic stress disorder) F43.10 Active 45248887 Problem Cannabis abuse F12.10 Active 02074046 Problem Prediabetes 790.29 Active 1967744 Problem Mixed hyperlipidemia E78.2 Active 926872764 Problem Major depressive disorder, recurrent episode, moderate F33.1 Active 032378652 Problem GERD with esophagitis K21.0 Active 992081172 Problem Cocaine use disorder, moderate, in sustained remission F14.21 Active 79557074 Problem Alcohol use disorder, mild, in sustained remission F10.11 Active 22550930 Problem Tobacco use Z72.0 Active 076497935 Problem Methamphetamine use disorder, severe, 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 Active 67359078 Problem Opioid use disorder, moderate, in sustained remission F11.21 Active 51543876 ALLERGIES No Information ENCOUNTERS Encounter Location Date Diagnosis [facility] [address] [facility] [id number] [id number] Aug, [facility] [id number] [place] [address] Jun, [facility] [address] [address] Jun, [facility] [id number] [place] [address] May, Cocaine use disorder, moderate, in sustained remission F14.21 [facility] [address] [address] May, [place] [address] [place] [address] [place] [address] 12 May, 2018 Dental examination Z01.20 [facility] [id number] [place] [id number] 09 May, 2018 Dental examination Z01.20 and Caries K02.9 [facility] [address] [place] [address] May, Common wart B07.8 [facility] [id number] [place] [address] May, [facility] [id number] [place] [address] 27 Apr, 2018 Cocaine use disorder, moderate, in sustained remission F14.21 [place] [id number] [place] [address] 14 Apr, 2018 [facility] [id number] [place] [id number] 13 Apr, 2018 Dental examination Z01.20 [facility] [id number] [place] [id number] 10 Mar, 2018 Encounter for dental exam and cleaning w/o abnormal findings Z01.20 [facility] [address] [place] [address] Mar, [facility] [address] [place] [address] Feb, Cocaine use disorder, moderate, in sustained remission F14.21 ; Opioid use disorder, moderate, in sustained remission F11.21 ; Alcohol use disorder, mild, in sustained remission F10.11 ; Tobacco use Z72.0 ; PTSD (post-traumatic stress disorder) F43.10 ; Methamphetamine use disorder, severe, 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 ; Generalized anxiety disorder F41.1 ; Cannabis abuse F12.10 and Major depressive disorder, recurrent episode, moderate F33.1 [place] [address] [address] Jan, Cocaine use disorder, moderate, in sustained remission F14.21 [facility] [id number] [address] Jan, Cocaine use disorder, moderate, in sustained remission F14.21 ; Opioid use disorder, moderate, in sustained remission F11.21 ; Alcohol use disorder, mild, in sustained remission F10.11 ; Tobacco use Z72.0 ; PTSD (post-traumatic stress disorder) F43.10 ; Methamphetamine use disorder, severe, 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 ; Generalized anxiety disorder F41.1 ; Cannabis abuse F12.10 and Major depressive disorder, recurrent episode, moderate F33.1 [facility] [address] [place] [address] Jan, Dysuria R30.0 and GERD with esophagitis K21.0 [place] [id number] [place] [address] December, Major depressive disorder, recurrent episode, moderate F33.1 [facility] [address] [place] [address] December, [facility] [address] [place] [address] December, Major depressive disorder, recurrent episode, moderate F33.1 ; Generalized anxiety disorder F41.1 ; Cannabis abuse F12.10 ; PTSD (post-traumatic stress disorder) F43.10 ; Methamphetamine use disorder, severe, 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 ; Cocaine use disorder, moderate, in sustained remission F14.21 ; Opioid use disorder, moderate, in sustained remission F11.21 ; Alcohol use disorder, mild, in sustained remission F10.11 and Tobacco use Z72.0 [facility] [id number] [address] Nov, [facility] [address] [id number] [address] Nov, [facility] [id number] [address] Nov, Wellness examination Z00.00 ; Encounter for immunization Z23 ; Screening for osteoporosis Z13.820 ; Screening for breast cancer Z12.31 and Left breast lump N63.20 [facility] [address] [place] [id number] Oct, Dental examination Z01.20 [facility] [address] [place] [address] Oct, [facility] [address] [address] Oct, [facility] [id number] [place] [address] 16 Sep, 2017 [place] [id number] [place] [address] 15 Sep, 2017 [facility] [id number] [place] [address] 14 Sep, 2017 Left otitis media with effusion H65.92 ; Acute suppurative otitis media of right ear without spontaneous rupture of tympanic membrane, recurrence not specified H66.001 ; Dizziness R42 and Fatigue 780.79 [facility] [id number] [place] [address] Aug, Major depressive disorder, recurrent episode, moderate [...] remission F10.11 and Tobacco use Z72.0 [facility] [address] [place] [address] Aug, Ingrown right big toenail L60.0 [facility] [address] [place] [address] Aug, [facility] [address] [address] [address] 15 Aug, 2017 PTSD (post-traumatic stress disorder) F43.10 [facility] [address] [place] [address] Aug, Major depressive disorder, recurrent episode, moderate F33.1 ; Generalized anxiety disorder F41.1 and Cannabis abuse F12.10 [facility] [address] [place] [address] Jul, [facility] [address] [address] Jul, [facility] [id number] [place] [address] Jul, [facility] [id number] [place] [address] Jul, Major depressive disorder, recurrent episode, moderate F33.1 ; Generalized anxiety disorder F41.1 and Cannabis abuse F12.10 [facility] [address] [address] Jul, [facility] [id number] [place] [address] Jul, [facility] [address] [address] Jul, Hyperlipidemia 272.4 [facility] [address] [place] [address] Jul, PTSD (post-traumatic stress disorder) F43.10 [facility] [address] [address] 14 Jul, 2017 Tobacco use Z72.0 ; [...] F41.1 and Cannabis abuse F12.10 [place] [address] [place] [address] Jul, [place] [id number] [place] [address] Jul, Dysuria R30.0 and Mixed hyperlipidemia E78.2 [place] [id number] [place] [address] Jun, Major depressive disorder, recurrent episode, moderate F33.1 ; Generalized anxiety disorder F41.1 and Cannabis abuse F12.10 [place] [id number] [place] [address] Jun, [place] [id number] [place] [address] Jun, Generalized anxiety disorder F41.1 ; Major [...] F14.21 and Tobacco use Z72.0 [place] [address] [address] Jun, Major depressive disorder, recurrent episode, moderate F33.1 ; Generalized anxiety disorder F41.1 and Cannabis abuse F12.10 [place] [address] [address] Jun, [place] [id number] [place] [address] Jun, [place] [address] [place] [address] Jun, Major depressive disorder, recurrent episode, moderate F33.1 ; Generalized anxiety disorder F41.1 and Cannabis abuse F12.10 [facility] [id number] [id number] Mar, Dental examination Z01.20 [facility] [id number] [place] [id number] Feb, Dental examination Z01.20 [facility] [id number] [place] [address] Mar, [facility] [id number] [place] [address] Mar, [facility] [id number] [place] [address] Feb, Hyperlipidemia 272.4 and Prediabetes 790.29 [facility] [id number] [place] [address] Feb, Fatigue 780.79 and Hyperlipidemia 272.4 [facility] [id number] [place] [address] Feb, Lumbago 724.2 ; Hyperlipidemia 272.4 ; Insomnia 780.52 and Fatigue 780.79 [facility] [id number] [place] [address] Nov, [facility] [id number] [place] [address] Nov, [facility] [id number] [place] [address] Mar, [facility] [id number] [place] [address] Mar, [facility] [id number] [place] [address] Jan, [facility] [id number] [place] [address] Jan, [facility] [id number] [place] [address] December, [facility] [place] [facility] [address] [id number] [place] [address] December, [facility] [place] [facility] [address] [id number] [place] [address] Nov, [facility] [place] [facility] [address] [id number] [place] [address] Nov, [facility] [place] [facility] [address] [id number] [place] [address] Nov, [facility] [place] [facility] [address] [id number] [place] [address] Nov, [facility] [place] [facility] [address] [id number] [place] [address] Nov, [facility] [place] [facility] [address] [id number] [place] [address] Nov, [facility] [place] [facility] [address] [id number] [place] [address] Oct, [facility] [place] [facility] [address] [id number] [place] [address] Oct, [facility] [place] [facility] [address] [id number] [place] [address] Oct, [facility] [place] [facility] [address] [id number] [place] [address] Oct, [facility] [place] [facility] [address] [id number] [place] [address] Oct, [facility] [place] [facility] [address] [id number] [place] [address] Oct, [facility] [place] [facility] [address] [id number] [place] [address] Oct, [facility] [place] [facility] [address] [id number] [place] [address] Oct, [facility] [place] [facility] [address] [id number] [place] [address] Oct, [facility] [place] [facility] [address] [id number] [place] [address] Oct, [facility] [place] [facility] [address] [id number] [place] [address] Oct, [facility] [place] [facility] [address] [facility] [id number] [place] [address] Oct, [facility] [place] [facility] [address] [id number] [place] [address] Oct, [facility] [place] [facility] [address] [id number] [place] [address] 24 Sep, 2013 [facility] [place] [facility] [address] [id number] [place] [address] 24 Sep, 2013 [facility] [place] [facility] [address] [facility] [id number] [place] [address] 20 Sep, 2013 [facility] [place] [facility] [address] [facility] [id number] [place] [address] 20 Sep, 2013 [facility] [place] [facility] [address] [facility] [id number] [place] [address] 20 Sep, 2013 [facility] [place] [facility] [address] [facility] [id number] [place] [address] 20 Sep, 2013 [facility] [place] [facility] [address] [facility] [id number] [place] [address] 18 Sep, 2013 [facility] [place] [facility] [address] [facility] [id number] [place] [address] 18 Sep, 2013 [facility] [place] [facility] [address] [facility] [id number] [place] [address] 14 Sep, 2013 [facility] [place] [facility] [address] [facility] [id number] [place] [address] 14 Sep, 2013 [facility] [place] [facility] [address] [facility] [id number] [place] [address] 14 Sep, 2013 [facility] [place] [facility] [address] [id number] [place] [address] 14 Sep, 2013 [facility] [place] [facility] [address] [id number] [place] [address] 14 Sep, 2013 [facility] [place] [facility] [address] [facility] [id number] [place] [address] 14 Sep, 2013 [facility] [place] [facility] [address] [id number] [place] [address] Sep, [facility] [place] [facility] [address] [id number] [place] [address] Sep, [facility] [place] [facility] [address] [id number] [place] [address] Sep, [facility] [place] [facility] [address] [facility] [id number] [place] [address] Sep, [facility] [place] [facility] [address] [id number] [place] [address] Sep, [facility] [place] [facility] [address] [id number] [place] [address] Sep, [facility] [place] [facility] [address] [facility] [id number] [place] [address] Aug, [facility] [place] [facility] [address] [id number] [place] [address] Aug, [facility] [place] [facility] [address] [id number] [place] [address] Aug, [facility] [place] [facility] [address] [id number] [place] [address] Aug, [facility] [place] [facility] [address] [facility] [id number] [place] [address] Aug, [facility] [place] [facility] [address] [facility] [id number] [place] [address] Jul, [facility] [place] [facility] [address] [id number] [place] [address] Jul, [facility] [address] [id number] [place] [address] Jul, [facility] [place] [facility] [address] [id number] [place] [address] Jul, [facility] [place] [facility] [address] [id number] [place] [address] Jul, [facility] [place] [facility] [address] [id number] [place] [address] Jul, [facility] [place] [facility] [address] [id number] [place] [address] Jul, [facility] [place] [facility] [address] [id number] [place] [address] Jul, [facility] [place] [facility] [address] [id number] [place] [address] Jul, [facility] [place] [facility] [address] [id number] [place] [address] Jun, [facility] [place] [facility] [address] [id number] [place] [address] Jun, [facility] [place] [facility] [address] [facility] [id number] [place] [address] Jun, [facility] [place] [facility] [address] [id number] [place] [address] Jun, [facility] [place] [facility] [address] [id number] [place] [address] Jun, [facility] [place] [facility] [address] [id number] [place] [address] Jun, [facility] [place] [facility] [address] [id number] [place] [address] Jun, [facility] [place] [facility] [address] [id number] [place] [address] Jun, [facility] [place] [facility] [address] [id number] [place] [address] Jun, [facility] [place] [facility] [address] [id number] [place] [address] Jun, [facility] [place] [facility] [address] [id number] [place] [address] May, [facility] [place] [facility] [address] [id number] [place] [address] May, [facility] [place] [facility] [address] [id number] [place] [address] May, [facility] [place] [facility] [address] [id number] [place] [address] May, [facility] [place] [facility] [address] [id number] [place] [address] May, [facility] [place] [facility] [address] [id number] [address] May, [facility] [place] [facility] [address] [id number] [place] [address] May, [facility] [place] [facility] [address] [id number] [address] May, [facility] [place] [facility] [address] [id number] [address] May, [facility] [place] [facility] [address] [id number] [address] 26 Apr, 2013 [facility] [place] [facility] [address] [id number] [place] [address] 16 Apr, 2013 [facility] [place] [facility] [address] [id number] [address] 12 Apr, 2013 [facility] [place] [facility] [address] [id number] [address] 06 Apr, 2013 [facility] [place] [facility] [address] [id number] [place] [address] Mar, [facility] [address] [id number] [place] [address] Mar, [facility] [place] [facility] [address] [id number] [place] [address] Mar, [facility] [place] [facility] [address] [id number] [place] [address] Mar, [facility] [place] [facility] [address] [id number] [place] [address] Mar, [facility] [place] [facility] [address] [id number] [place] [address] Mar, [facility] [place] [facility] [address] [id number] [place] [address] Mar, [facility] [address] [id number] [place] [address] Feb, [facility] [place] [facility] [address] [id number] [place] [address] Feb, [facility] [place] [facility] [address] [id number] [place] [address] Feb, [facility] [place] [facility] [address] [id number] [place] [address] Feb, [facility] [place] [facility] [address] [id number] [place] [address] Feb, [facility] [place] [facility] [address] [id number] [place] [address] Feb, [facility] [place] [facility] [address] [id number] [place] [address] Feb, [facility] [place] [facility] [address] [id number] [place] [address] Feb, [facility] [place] [facility] [address] [id number] [place] [address] Feb, [facility] [place] [facility] [address] [id number] [place] [address] Feb, [facility] [address] [id number] [place] [address] Feb, [facility] [place] [facility] [address] [id number] [place] [address] Jan, [facility] [place] [facility] [address] [id number] [place] [address] Jan, [facility] [address] [id number] [place] [address] December, [facility] [place] [facility] [address] [id number] [place] [address] December, [facility] [address] [id number] [place] [address] Nov, [facility] [address] [id number] [place] [address] Nov, [facility] [address] [id number] [place] [address] Oct, [facility] [place] [facility] [address] [id number] [place] [address] Oct, [facility] [place] [facility] [address] [id number] [place] [address] Oct, [facility] [place] [facility] [address] [id number] [place] [address] Oct, [facility] [place] [facility] [address] [id number] [place] [address] Sep, [facility] [place] [facility] [address] [id number] [place] [address] Sep, [facility] [place] [facility] [address] [id number] [place] [address] Sep, [facility] [place] [facility] [address] [id number] [address] Sep, [facility] [address] [id number] [place] [address] Aug, [facility] [place] [facility] [address] [id number] [place] [address] Aug, [facility] [place] [facility] [address] [facility] [id number] [place] [address] Jul, [facility] [place] [facility] [address] [id number] [place] [address] Jul, [facility] [place] [facility] [address] [id number] [place] [address] Jul, [facility] [place] [facility] [address] [id number] [place] [address] Jul, [facility] [place] [facility] [address] [id number] [place] [address] Jul, [facility] [place] [facility] [address] [facility] [id number] [place] [address] Jul, [facility] [place] [facility] [address] [facility] [id number] [place] [address] Jun, [facility] [place] [facility] [address] [facility] [id number] [place] [address] Jun, [facility] [place] [facility] [address] [facility] [id number] [address] Jun, [facility] [place] [facility] [address] [facility] [id number] [address] Jun, [facility] [place] [facility] [address] [id number] [place] [address] Jun, [facility] [place] [facility] [address] [facility] [id number] [place] [address] May, [facility] [place] [facility] [address] [facility] [id number] [place] [address] May, [facility] [place] [facility] [address] [id number] [place] [address] May, [facility] [place] [facility] [address] [id number] [place] [address] May, [facility] [place] [facility] [address] [id number] [place] [address] May, [facility] [place] [facility] [address] [id number] [place] [address] May, [facility] [place] [facility] [address] [id number] [place] [address] May, [facility] [place] [facility] [address] [id number] [place] [address] May, [facility] [place] [facility] [address] [id number] [place] [address] Mar, [facility] [place] [facility] [address] [id number] [place] [address] Mar, [facility] [place] [facility] [address] [id number] [place] [address] Mar, [facility] [place] [facility] [address] [id number] [place] [address] Feb, [facility] [place] [facility] [address] [id number] [place] [address] Feb, [facility] [place] [facility] [address] [id number] [place] [address] Feb, [facility] [place] [facility] [address] [id number] [place] [address] Feb, [facility] [place] [facility] [address] [id number] [place] [address] Jan, [facility] [place] [facility] [address] [id number] [place] [address] Jan, [facility] [place] [facility] [address] [id number] [place] [address] Jan, [facility] [place] [facility] [address] [id number] [place] [address] December, [facility] [place] [facility] [address] [id number] [place] [address] Nov, [facility] [place] [facility] [address] [id number] [place] [address] Oct, [facility] [place] [facility] [address] [id number] [place] [address] Oct, [facility] [place] [facility] [address] [id number] [place] [address] Oct, [facility] [place] [facility] [address] [id number] [place] [address] Oct, [facility] [place] [facility] [address] [id number] [place] [address] Aug, [facility] [place] [facility] [address] [id number] [place] [address] Aug, [facility] [place] [facility] [address] [id number] [place] [address] Aug, [facility] [place] [facility] [address] [id number] [place] [address] Aug, [facility] [place] [facility] [address] [id number] [address] Aug, [facility] [place] [facility] [address] [id number] [address] Aug, [facility] [place] [facility] [address] [id number] [place] [address] Aug, [facility] [place] [facility] [address] [id number] [place] [address] Aug, [facility] [place] [facility] [address] [id number] [place] [address] Jul, [facility] [place] [facility] [address] [id number] [place] [address] 29 Jun, 2011 [facility] [address] [id number] [place] [address] 29 Jun, 2011 [facility] [address] [id number] [place] [address] 31 Jul, 2010 [facility] [address] [id number] [place] [address] 22 Jul, 2010 [facility] [place] [facility] [address] [id number] [place] [address] 22 Jul, 2010 [facility] [address] [id number] [place] [address] 14 Jul, 2010 [facility] [place] [facility] [address] [id number] [place] [address] 14 Jul, 2010 [facility] [address] [id number] [place] [address] 24 Jun, 2010 [facility] [place] [facility] [address] [id number] [place] [address] May, [facility] [address] [id number] [place] [address] Mar, [facility] [address] [id number] [place] [address] Oct, [facility] [address] [id number] [place] [address] Aug, [facility] [place] [facility] [address] [id number] [place] [address] 15 Jul, 2009 [facility] [place] [facility] [address] [id number] [place] [address] Jul, [facility] [place] [facility] [address] [id number] [place] [address] Jun, [facility] [place] [facility] [address] [id number] [place] [address] Jun, [facility] [address] [facility] [id number] [address] May, [facility] [address] [facility] [id number] [address] May, [facility] [address] [facility] [id number] [address] Mar, [facility] [address] [facility] [id number] [address] Mar, [facility] [address] [facility] [id number] [address] Oct, IMMUNIZATIONS No Known Immunizations SOCIAL HISTORY Never Assessed REASON FOR VISIT referral request PLAN OF CARE VITAL SIGNS MEDICATIONS Unknown [...] disc replacement L1- L5 - Dr Muhammad ([place]) Surgical History appendectomy 1983 Surgical History hysterectomy 1993 Surgical History dilatation and curettage Surgical History heart cath- Dr Shaw [address] Meza bowel and intestines 2015 Hospitalization History Hospitalization for surgery only
--- OUTSIDE RECORDS SUMMARY | 2019-01-03 14:00 | XMS REPORT ---
Author Author MELISSA COLINDRES [facility] [address] Address [address] [place] [address] Care Team Providers Care Whale Fisherman Name Role Phone MELISSA COLINDRES Unavailable PROBLEMS Type Condition ICD9-CM Code PFM33-IX Code Onset Dates Condition Status SNOMED Code Problem Generalized anxiety disorder F41.1 Active 22612903 Problem PTSD (post-traumatic stress disorder) F43.10 Active 09649488 Problem Cannabis abuse F12.10 Active 08585536 Problem Prediabetes 790.29 Active 9351182 Problem Mixed hyperlipidemia E78.2 Active 024706595 Problem Major depressive disorder, recurrent episode, moderate F33.1 Active 747718204 Problem GERD with esophagitis K21.0 Active 997905368 Problem Cocaine use disorder, moderate, in sustained remission F14.21 Active 51719311 Problem Alcohol use disorder, mild, in sustained remission F10.11 Active 84336009 Problem Tobacco use Z72.0 Active 484244911 Problem Methamphetamine use disorder, severe, 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 Active 75696802 Problem Opioid use disorder, moderate, in sustained remission F11.21 Active 10645625 ALLERGIES Substance Reaction Event Type Date Status Pravastatin Sodium itching Drug Allergy May, Active Duragesic-100 vomiting- Patches only Drug Allergy May, Active ENCOUNTERS Encounter Location Date Diagnosis [facility] [address] [facility] [id number] [id number] Aug, [facility] [address] [id number] [address] Jun, [facility] [address] [id number] [address] May, [facility] [address] [place] [address] May, Dental examination Z01.20 [facility] [id number] [place] [id number] May, Dental examination Z01.20 and Caries K02.9 [facility] [id number] [place] [address] May, Common wart B07.8 [facility] [id number] [place] [address] May, [facility] [id number] [place] [address] Apr, Cocaine use disorder, moderate, in sustained remission F14.21 [place] [id number] [place] [address] 14 Apr, 2018 [facility] [id number] [place] [id number] 13 Apr, 2018 Dental examination Z01.20 [facility] [id number] [place] [id number] Mar, Encounter for dental exam and cleaning w/o abnormal findings Z01.20 [facility] [id number] [place] [address] Mar, [place] [id number] [place] [address] Feb, Cocaine use disorder, moderate, in sustained remission F14.21 ; Opioid use disorder, moderate, in sustained remission F11.21 ; Alcohol use disorder, mild, in sustained remission F10.11 ; Tobacco use Z72.0 ; PTSD (post-traumatic stress disorder) F43.10 ; Methamphetamine use disorder, severe, 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 ; Generalized anxiety disorder F41.1 ; Cannabis abuse F12.10 and Major depressive disorder, recurrent episode, moderate F33.1 [place] [address] [place] [address] Jan, Cocaine use disorder, moderate, in sustained remission F14.21 [place] [address] [place] [address] Jan, Cocaine use disorder, moderate, in sustained remission F14.21 ; Opioid use disorder, moderate, in sustained remission F11.21 ; Alcohol use disorder, mild, in sustained remission F10.11 ; Tobacco use Z72.0 ; PTSD (post-traumatic stress disorder) F43.10 ; Methamphetamine use disorder, severe, 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 ; Generalized anxiety disorder F41.1 ; Cannabis abuse F12.10 and Major depressive disorder, recurrent episode, moderate F33.1 [place] [address] [place] [address] Jan, Dysuria R30.0 and GERD with esophagitis K21.0 [place] [id number] [place] [address] December, Major depressive disorder, recurrent episode, moderate F33.1 [place] [id number] [place] [address] December, [place] [id number] [place] [address] December, Major depressive disorder, recurrent episode, moderate [...] remission F10.11 and Tobacco use Z72.0 [facility] [address] [place] [address] Nov, [facility] [id number] [place] [address] Nov, [place] [address] [place] [address] Nov, Wellness examination Z00.00 ; Encounter for immunization Z23 ; Screening for osteoporosis Z13.820 ; Screening for breast cancer Z12.31 and Left breast lump N63.20 [facility] [address] [id number] [id number] 29 Oct, 2017 Dental examination Z01.20 [facility] [address] [place] [address] Oct, [facility] [address] [place] [address] Oct, [facility] [id number] [place] [address] 16 Sep, 2017 [facility] [address] [place] [address] Sep, [facility] [address] [place] [address] 14 Sep, 2017 Left otitis media with effusion H65.92 ; Acute suppurative otitis media of right ear without spontaneous rupture of tympanic membrane, recurrence not specified H66.001 ; Dizziness R42 and Fatigue 780.79 [facility] [address] [place] [address] Aug, Major depressive disorder, recurrent episode, moderate F33.1 ; Generalized anxiety disorder F41.1 ; Cannabis abuse F12.10 ; PTSD (post-traumatic stress disorder) F43.10 ; Methamphetamine use disorder, severe, 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 ; Cocaine use disorder, moderate, in sustained remission F14.21 ; Opioid use disorder, moderate, in sustained remission F11.21 ; Alcohol use disorder, mild, in sustained remission F10.11 and Tobacco use Z72.0 [facility] [address] [address] Aug, Ingrown right big toenail L60.0 [facility] [address] [place] [address] Aug, [facility] [address] [place] [address] Aug, PTSD (post-traumatic stress disorder) F43.10 [facility] [id number] [address] Aug, Major depressive disorder, recurrent episode, moderate F33.1 ; Generalized anxiety disorder F41.1 and Cannabis abuse F12.10 [place] [address], [place] [address] Jul, [place] [id number] [place] [address] Jul, [place] [id number] [place] [address] Jul, [place] [id number] [place] [address] Jul, Major depressive disorder, recurrent episode, moderate F33.1 ; Generalized anxiety disorder F41.1 and Cannabis abuse F12.10 [place] [id number] [place] [address] Jul, [place] [id number] [place] [address] Jul, [place] [address] [place] [address] Jul, Hyperlipidemia 272.4 [place] [address] [place] [address] Jul, PTSD (post-traumatic stress disorder) F43.10 [place] [address] [place] [address] 14 Jul, 2017 Tobacco use Z72.0 ; [...] anxiety disorder F41.1 and Cannabis abuse F12.10 [place] [address] [place] [address] Jul, [facility] [address] [place] [address] Jul, Dysuria R30.0 and Mixed hyperlipidemia E78.2 [facility] [address] [place] [address] Jun, Major depressive disorder, recurrent episode, moderate F33.1 ; Generalized anxiety disorder F41.1 and Cannabis abuse F12.10 [facility] [address] [place] [address] Jun, [place] [id number] [place] [address] Jun, Generalized anxiety disorder F41.1 ; Major [...] remission F14.21 and Tobacco use Z72.0 [facility] [address] [place] [address] Jun, Major depressive disorder, recurrent episode, moderate F33.1 ; Generalized anxiety disorder F41.1 and Cannabis abuse F12.10 [facility] [address] [place] [address] Jun, [facility] [address] [place] [address] Jun, [facility] [address] [place] [address] Jun, Major depressive disorder, recurrent episode, moderate F33.1 ; Generalized anxiety disorder F41.1 and Cannabis abuse F12.10 [facility] [address] [id number] [id number] Mar, Dental examination Z01.20 [facility] [id number] [id number] Feb, Dental examination Z01.20 [facility] [address], [place] [address] Mar, [facility] [address], [place] [address] Mar, [facility] [address], [place] [address] Feb, Hyperlipidemia 272.4 and Prediabetes 790.29 [facility] [address] [place] [address] Feb, Fatigue 780.79 and Hyperlipidemia 272.4 [facility] [address], [place] [address] Feb, Lumbago 724.2 ; Hyperlipidemia 272.4 ; Insomnia 780.52 and Fatigue 780.79 [facility] [address], [place] [address] Nov, [facility] [address], [place] [address] Nov, [facility] [address], [place] [address] Mar, [facility] [address], [place] [address] Mar, [facility] [address], [place] [address] Jan, [facility] [address], [place] [address] Jan, [facility] [address], [place] [address] December, [facility] [address], [place] [address] December, [facility] [id number] [address] 30 Nov, 2013 [facility] [place] [facility] [address] [id number] [place] [address] 30 Nov, 2013 [facility] [place] [facility] [address] [id number] [place] [address] Nov, [facility] [place] [facility] [address] [id number] [place] [address] Nov, [facility] [place] [facility] [address] [id number] [place] [address] Nov, [facility] [place] [facility] [address] [id number] [place] [address] Nov, [facility] [place] [facility] [address] [id number] [place] [address] Oct, [facility] [place] [facility] [address] [id number] [place] [address] 31 Oct, 2013 [facility] [address] [id number] [place] [address] Oct, [facility] [place] [facility] [address] [id number] [place] [address] 20 Oct, 2013 [facility] [place] [facility] [address] [id number] [place] [address] 19 Oct, 2013 [facility] [place] [facility] [address] [id number] [place] [address] 19 Oct, 2013 [facility] [place] [facility] [address] [id number] [place] [address] Oct, [facility] [place] [facility] [address] [id number] [place] [address] 12 Oct, 2013 [facility] [place] [facility] [address] [id number] [place] [address] 11 Oct, 2013 [facility] [place] [facility] [address] [id number] [place] [address] Oct, [facility] [place] [facility] [address] [id number] [place] [address] Oct, [facility] [place] [facility] [address] [id number] [place] [address] Oct, [facility] [place] [facility] [address] [id number] [place] [address] Oct, [facility] [place] [facility] [address] [id number] [place] [address] 24 Sep, 2013 [facility] [place] [facility] [address] [id number] [place] [address] 24 Sep, 2013 [facility] [place] [facility] [address] [id number] [place] [address] Sep, [facility] [place] [facility] [address] [id number] [place] [address] Sep, [facility] [place] [facility] [address] [id number] [place] [address] Sep, [facility] [place] [facility] [address] [id number] [place] [address] Sep, [facility] [place] [facility] [address] [id number] [place] [address] 18 Sep, 2013 [facility] [place] [facility] [address] [id number] [place] [address] 18 Sep, 2013 [facility] [place] [facility] [address] [id number] [place] [address] 14 Sep, 2013 [facility] [place] [facility] [address] [id number] [place] [address] 14 Sep, 2013 [facility] [place] [facility] [address] [id number] [place] [address] 14 Sep, 2013 [facility] [place] [facility] [address] [facility] [id number] [place] [address] 14 Sep, 2013 [facility] [place] [facility] [address] [id number] [place] [address] 14 Sep, 2013 [facility] [place] [facility] [address] [id number] [place] [address] 14 Sep, 2013 [facility] [place] [facility] [address] [id number] [place] [address] Sep, [facility] [place] [facility] [address] [id number] [place] [address] Sep, [facility] [place] [facility] [address] [id number] [place] [address] Sep, [facility] [place] [facility] [address] [id number] [place] [address] Sep, [facility] [place] [facility] [address] [id number] [place] [address] Sep, [facility] [place] [facility] [address] [id number] [place] [address] Sep, [facility] [place] [facility] [address] [id number] [place] [address] Aug, [facility] [place] [facility] [address] [id number] [place] [address] Aug, [facility] [place] [facility] [address] [id number] [place] [address] Aug, [facility] [place] [facility] [address] [id number] [place] [address] Aug, [facility] [place] [facility] [address] [id number] [place] [address] Aug, [facility] [place] [facility] [address] [id number] [place] [address] Jul, [facility] [place] [facility] [address] [id number] [place] [address] Jul, [facility] [place] [facility] [address] [id number], [place] [address] Jul, [facility] [address] [id number] [place] [address] Jul, [facility] [place] [facility] [address] [id number], [place] [address] Jul, [facility] [address] [id number] [place] [address] Jul, [facility] [place] [facility] [address] [id number] [place] [address] Jul, [facility] [address] [id number] [place] [address] Jul, [facility] [place] [facility] [address] [id number] [place] [address] Jul, [facility] [address] [id number], [place] [address] Jun, [facility] [place] [facility] [address] [id number], [place] [address] Jun, [facility] [address] [id number], [place] [address] Jun, [facility] [place] [facility] [address] [facility] [id number], [place] [address] Jun, [facility] [place] [facility] [address] [id number], [place] [address] Jun, [facility] [place] [facility] [address] [id number], [place] [address] Jun, [facility] [place] [facility] [address] [id number], [place] [address] Jun, [facility] [place] [facility] [address] [id number], [place] [address] Jun, [facility] [place] [facility] [address] [facility] [id number], [place] [address] Jun, [facility] [place] [facility] [address] [id number] [place] [address] Jun, [facility] [place] [facility] [address] [id number] [place] [address] May, [facility] [place] [facility] [address] [id number] [place] [address] May, [facility] [place] [facility] [address] [id number] [place] [address] May, [facility] [place] [facility] [address] [id number] [place] [address] May, [facility] [place] [facility] [address] [id number] [place] [address] May, [facility] [place] [facility] [address] [id number] [place] [address] May, [facility] [place] [facility] [address] [id number] [place] [address] May, [facility] [place] [facility] [address] [id number] [place] [address] May, [facility] [place] [facility] [address] [id number] [place] [address] May, [facility] [place] [facility] [address] [id number] [place] [address] 26 Apr, 2013 [facility] [place] [facility] [address] [id number] [place] [address] 16 Apr, 2013 [facility] [place] [facility] [address] [id number] [place] [address] 12 Apr, 2013 [facility] [place] [facility] [address] [id number] [place] [address] 06 Apr, 2013 [facility] [place] [facility] [address] [id number] [place] [address] 30 Mar, 2013 [facility] [place] [facility] [address] [id number] [place] [address] Mar, [facility] [place] [facility] [address] [id number] [place] [address] Mar, [facility] [place] [facility] [address] [id number] [place] [address] Mar, [facility] [place] [facility] [address] [id number] [place] [address] Mar, [facility] [place] [facility] [address] [id number] [place] [address] Mar, [facility] [place] [facility] [address] [id number] [place] [address] Mar, [facility] [place] [facility] [address] [id number] [place] [address] Feb, [facility] [place] [facility] [address] [id number] [place] [address] Feb, [facility] [place] [facility] [address] [id number] [place] [address] Feb, [facility] [place] [facility] [address] [id number] [place] [address] Feb, [facility] [place] [facility] [address] [id number] [place] [address] Feb, [facility] [place] [facility] [address] [id number] [place] [address] Feb, [facility] [place] [facility] [address] [id number] [place] [address] Feb, [facility] [place] [facility] [address] [id number] [place] [address] Feb, [facility] [place] [facility] [address] [id number] [place] [address] Feb, [facility] [place] [facility] [address] [id number] [place] [address] Feb, [facility] [place] [facility] [address] [id number] [place] [address] Feb, [facility] [address] [id number] [place] [address] Jan, [facility] [place] [facility] [address] [id number] [place] [address] Jan, [facility] [address] [id number] [place] [address] December, [facility] [place] [facility] [address] [id number] [place] [address] December, [facility] [address] [id number] [place] [address] Nov, [facility] [place] [facility] [address] [id number] [place] [address] Nov, [facility] [address] [id number] [place] [address] Oct, [facility] [address] [id number] [place] [address] Oct, [facility] [place] [facility] [address] [id number] [place] [address] Oct, [facility] [address] [facility] [id number] [place] [address] Oct, [facility] [place] [facility] [address] [id number] [place] [address] Sep, [facility] [place] [facility] [address] [id number] [place] [address] Sep, [facility] [place] [facility] [address] [id number] [place] [address] Sep, [facility] [place] [facility] [address] [id number] [place] [address] Sep, [facility] [place] [facility] [address] [id number] [place] [address] Aug, [facility] [place] [facility] [address] [id number] [place] [address] Aug, [facility] [place] [facility] [address] [id number] [place] [address] Jul, [facility] [place] [facility] [address] [id number] [place] [address] Jul, [facility] [place] [facility] [address] [id number] [place] [address] Jul, [facility] [place] [facility] [address] [id number] [place] [address] Jul, [facility] [place] [facility] [address] [id number] [place] [address] Jul, [facility] [place] [facility] [address] [id number] [place] [address] Jul, [facility] [place] [facility] [address] [id number] [place] [address] Jun, [facility] [place] [facility] [address] [id number] [place] [address] Jun, [facility] [place] [facility] [address] [id number] [place] [address] Jun, [facility] [place] [facility] [address] [id number] [place] [address] Jun, [facility] [place] [facility] [address] [id number], [place] [address] Jun, [facility] [place] [facility] [address] [id number] [place] [address] May, [facility] [place] [facility] [address] [id number] [place] [address] May, [facility] [place] [facility] [address] [id number] [place] [address] May, [facility] [place] [facility] [address] [id number] [place] [address] May, [facility] [place] [facility] [address] [id number] [place] [address] May, [facility] [place] [facility] [address] [id number] [place] [address] May, [facility] [place] [facility] [address] [id number] [place] [address] May, [facility] [place] [facility] [address] [id number] [place] [address] May, [facility] [place] [facility] [address] [id number] [place] [address] Mar, [facility] [place] [facility] [address] [id number] [place] [address] Mar, [facility] [place] [facility] [address] [id number] [place] [address] Mar, [facility] [place] [facility] [address] [id number] [place] [address] Feb, [facility] [place] [facility] [address] [id number] [place] [address] Feb, [facility] [place] [facility] [address] [id number] [place] [address] Feb, [facility] [place] [facility] [address] [id number] [place] [address] Feb, [facility] [place] [facility] [address] [id number] [place] [address] Jan, [facility] [place] [facility] [address] [id number] [place] [address] Jan, [facility] [place] [facility] [address] [id number] [place] [address] Jan, [facility] [place] [facility] [address] [id number] [place] [address] December, [facility] [place] [facility] [address] [id number] [place] [address] Nov, [facility] [place] [facility] [address] [id number] [place] [address] Oct, [facility] [place] [facility] [address] [id number] [place] [address] Oct, [facility] [place] [facility] [address] [id number] [place] [address] Oct, [facility] [place] [facility] [address] [id number] [place] [address] Oct, [facility] [place] [facility] [address] [id number] [place] [address] Aug, [facility] [place] [facility] [address] [id number] [place] [address] Aug, [facility] [place] [facility] [address] [id number] [place] [address] Aug, [facility] [place] [facility] [address] [id number] [place] [address] Aug, [facility] [place] [facility] [address] [id number] [place] [address] Aug, [facility] [place] [facility] [address] [id number] [place] [address] Aug, [facility] [place] [facility] [address] [id number] [place] [address] Aug, [facility] [place] [facility] [address] [id number] [place] [address] Aug, [facility] [place] [facility] [address] [id number] [place] [address] Jul, [facility] [place] [facility] [address] [id number] [place] [address] Jun, [facility] [place] [facility] [address] [id number] [place] [address] 29 Jun, 2011 [facility] [address] [id number] [place] [address] 31 Jul, 2010 [facility] [place] [facility] [address] [id number] [place] [address] 22 Jul, 2010 [facility] [place] [facility] [address] [id number] [place] [address] 22 Jul, 2010 [facility] [place] [facility] [address] [id number] [place] [address] 14 Jul, 2010 [facility] [place] [facility] [address] [id number] [place] [address] 14 Jul, 2010 [facility] [place] [facility] [address] [id number] [place] [address] 24 Jun, 2010 [facility] [place] [facility] [address] [id number] [place] [address] May, [facility] [place] [facility] [address] [id number], [place] [address] Mar, [facility] [place] [facility] [address] [id number], [place] [address] Oct, [facility] [place] [facility] [address] [id number], [place] [address] Aug, [facility] [place] [facility] [address] [id number], [place] [address] 15 Jul, 2009 [facility] [place] [facility] [address] [id number], [place] [address] Jul, [facility] [place] [facility] [address] [id number], [place] [address] Jun, [facility] [place] [facility] [address] [id number], [place] [address] Jun, [facility] [place] [facility] [address] [id number], [place] [address] May, [facility] [place] [facility] [address] [facility] [id number] [place] [address] May, [facility] [address] [facility] [id number] [place] [address] Mar, [facility] [address] [facility] [id number], [place] [address] Mar, [facility] [address] [facility] [id number], [place] [address] Oct, IMMUNIZATIONS No Known Immunizations SOCIAL HISTORY Never Assessed REASON FOR VISIT POSSIBLE DRY SOCKET- [facility] PLAN OF CARE Activity Details Follow Up prn Reason:Recall VITAL SIGNS Height 68 in 2018-05-18 Temperature 97.3 degrees Fahrenheit 2018-05-18 Blood pressure systolic 127 mmHg 2018-05-18 Blood pressure diastolic 89 mmHg 2018-05-18 MEDICATIONS Medication Instructions Dosage Frequency Start Date End Date Duration Status Amoxicillin 500 MG Orally 4 times a day 2 capsules stat and then take 1 capsule 6h May, 10 days Active Magic Mouthwash Apply medicated swab to sore areas of the mouth to numb the pain As needed Dip cotton swab into medication May, As needed Active Xanax 1 mg Orally three times a day 1 tablet 8h 30 days Active Effexor XR 37.5 MG Orally Once a day 1 capsule with food 24h Jan, 30 days Not-Taking Trazodone HCl 100 MG Orally Once a day 1 tablet at bedtime 24h Feb, Not-Taking Protonix 40 MG Orally Once a day 1 tablet 24h 30 Not-Taking RESULTS No Results PROCEDURES Procedure Date Ordered Result Body Site TX COMPS - UNUSUL CIRCUMSTANCES RPT May 18, 2018 Dental no charge May 18, 2018 INSTRUCTIONS MEDICATIONS ADMINISTERED No Known Medications [...] Spinal disc replacement L1- L5 - Dr Muhmamad ([facility]) Surgical History appendectomy 1983 Surgical History hysterectomy 1993 Surgical History dilatation and curettage Surgical History heart cath- Dr Shaw [address] Meza bowel and intestines seperated 2015 Hospitalization History Hospitalization for surgery only
--- OUTSIDE RECORDS SUMMARY | 2019-01-03 14:27 | XMS REPORT | Continuity of Care Document ---
Author Organization Unknown Address Unknown Allergies Active Description Code Type Severity Reaction Onset Reported/Identified Relationship to Patient Clinical Status Yes Duragesic Drug Allergy 08/28/2008 Yes Duragesic Drug Allergy N/A N/A 08/28/2008 Yes fentanyl [id number] Drug Allergy Unknown N/A 01/16/2017 Yes Qpvnqcr-Wrt-Iij Reductase Inhibitor [id number] Drug Allergy Unknown LEG CRAMPS 01/16/2017 Yes fentanyl [id number] Drug Allergy Severe SEVERE N/V 05/17/2018 Yes Wkxtves-Znz-Oqi Reductase Inhibitor [id number] Drug Allergy Mild LEG CRAMPS 05/17/2018 Medications There is no data. Problems Date Dx Coded Attending Type Code Diagnosis Diagnosed By RK MARQUEZ MD, Ot M25.812 OTHER SPECIFIED JOINT DISORDERS, LEFT SH 07/06/1342 RK MARQUEZ MD, Ot S13.4XXD SPRAIN OF LIGAMENTS OF CERVICAL SPINE, S 07/06/1342 RK MARQUEZ MD, Ot X50.9XXD OTHER AND UNSPECIFIED OVREXRTN OR STRNOU 03/19/2008 ODN GUADALUPE APRN S 729.1 Inflammatory Myopathy (myositis) 03/19/2008 DON GUADALUPE APRN S 789.00 Abdominal Pain 03/19/2008 729.1 Inflammatory Myopathy (myositis) 03/19/2008 789.00 Abdominal Pain 03/19/2008 SAMANTHA GUADALUPE APRNA S 729.1 Inflammatory Myopathy (myositis) 03/19/2008 SAMANTHA GUADALUPE APRNA S 789.00 Abdominal Pain 03/19/2008 SAMANTHA GUADALUPE APRNA [...] NEGRONS, KACIE Fontanez 789.00 Abdominal Pain 03/19/2008 DOMINIQUE GUADALUPE APRNNDA S 729.1 Inflammatory Myopathy (myositis) 03/19/2008 ANAYELI BARON, DON S 789.00 Abdominal Pain 03/19/2008 DOMINIQUE GUADALUPE APRNNDA S 729.1 Inflammatory Myopathy (myositis) 03/19/2008 ANAYELI [...] BARON, DON S 789.00 Abdominal Pain 08/28/2008 DON GUADALUPE APRN S 296.90 Episodic Mood Disorders 08/28/2008 SAMANTHA GUADALUPE APRNA S 300.00 Anxiety 08/28/2008 DON GUADALUPE APRN S 627.9 MENOPAUSAL DISORDER 08/28/2008 296.90 Episodic Mood Disorders 08/28/2008 300.00 Anxiety 08/28/2008 627.9 MENOPAUSAL DISORDER 08/28/2008 ANAYELI SYSTEMS ANALYST, DON S 296.90 Episodic Mood Disorders 08/28/2008 ANAYELI SYSTEMS ANALYST, DON S 300.00 Anxiety 08/28/2008 ANAYELI SYSTEMS ANALYST, DON S 627.9 MENOPAUSAL DISORDER 08/28/2008 ANAYELI PATN, DON S 296.90 Episodic Mood Disorders 08/28/2008 ANAYELI SYSTEMS ANALYST, DON S 300.00 Anxiety 08/28/2008 ANAYELI PATN, DON S 627.9 MENOPAUSAL DISORDER 08/28/2008 296.90 Episodic Mood Disorders 08/28/2008 300.00 Anxiety 08/28/2008 627.9 MENOPAUSAL DISORDER 08/28/2008 296.90 Episodic Mood Disorders 08/28/2008 300.00 Anxiety 08/28/2008 627.9 MENOPAUSAL DISORDER 08/28/2008 MELISSA DAHL MD 296.90 Episodic Mood Disorders 08/28/2008 MELISSA DAHL MD 300.00 Anxiety 08/28/2008 MELISSA DAHL MD 627.9 MENOPAUSAL DISORDER 08/28/2008 ANAYELI BARON, DON S 296.90 Episodic Mood Disorders 08/28/2008 ANAYELI BARON, DON S 300.00 Anxiety 08/28/2008 ANAYELI BARON, DON S 627.9 MENOPAUSAL DISORDER 08/28/2008 NEISHA NEGRONS, KACIE M 296.90 Episodic Mood Disorders 08/28/2008 NEISHA NEGRONS, KACIE M 300.00 Anxiety 08/28/2008 NEISHA NEGRONS, KACIE M 627.9 MENOPAUSAL DISORDER 08/28/2008 ANAYELI PATN, DON S 296.90 Episodic Mood Disorders 08/28/2008 ANAYELI PATN, DON S 300.00 Anxiety 08/28/2008 ANAYELI SYSTEMS ANALYST, DON S 627.9 MENOPAUSAL DISORDER 08/28/2008 ANAYELI SYSTEMS ANALYST, DON S 296.90 Episodic Mood Disorders 08/28/2008 ANAYELI PATN, DON S 300.00 Anxiety 08/28/2008 ANAYELI PATN, DON S 627.9 MENOPAUSAL DISORDER 08/28/2008 ANAYELI PATN, DON S 296.90 Episodic Mood Disorders 08/28/2008 ANAYELI SYSTEMS ANALYST, DON S 300.00 Anxiety 08/28/2008 ANAYELI SYSTEMS ANALYST, DON S 627.9 MENOPAUSAL DISORDER 08/28/2008 ANAYELI SYSTEMS ANALYST, DON S 296.90 Episodic Mood Disorders 08/28/2008 ANAYELI BARON, DON S 300.00 Anxiety 08/28/2008 ANAYELI PATN, DON S 627.9 MENOPAUSAL DISORDER 08/28/2008 WHITE DDS, STALIN J 296.90 Episodic Mood Disorders 08/28/2008 WHITE DDS, STALIN J 300.00 Anxiety 08/28/2008 WHITE DDS, STALIN J 627.9 MENOPAUSAL DISORDER 08/28/2008 ANAYELI PATN, DON S 296.90 Episodic Mood Disorders 08/28/2008 ANAYELI BARON, DON S 300.00 Anxiety 08/28/2008 ANAYELI BARON, DON S 627.9 MENOPAUSAL DISORDER 09/30/2008 ANAYELI BARON, DON S 346.90 Migraine Headache 09/30/2008 346.90 Migraine Headache 09/30/2008 ANAYELI BARON, DON S 346.90 Migraine Headache 09/30/2008 ANAYELI PATN, DON S 346.90 Migraine Headache 09/30/2008 346.90 Migraine Headache 09/30/2008 346.90 Migraine Headache 09/30/2008 MELISSA DAHL MD 346.90 Migraine Headache 09/30/2008 ANAYELI BARON, DON S 346.90 Migraine Headache 09/30/2008 KACIE DRIVER DDS 346.90 Migraine Headache 09/30/2008 ANAYELI SYSTEMS ANALYST, DON S 346.90 Migraine Headache 09/30/2008 ANAYELI SYSTEMS ANALYST, DON S 346.90 Migraine Headache 09/30/2008 ANAYELI SYSTEMS ANALYST, DON S 346.90 Migraine Headache 09/30/2008 ANAYELI SYSTEMS ANALYST, DON S 346.90 Migraine Headache 09/30/2008 WHITE DDS, STALIN J 346.90 Migraine Headache 09/30/2008 ANAYELI PATN, DON S 346.90 Migraine Headache 10/14/2008 ANAYELI SYSTEMS ANALYST, DON S 461.9 Acute Sinusitis Unspecified 10/14/2008 461.9 Acute Sinusitis Unspecified 10/14/2008 ANAYELI SYSTEMS ANALYST, DON S 461.9 Acute Sinusitis Unspecified 10/14/2008 ANAYELI SYSTEMS ANALYST, DON S 461.9 Acute Sinusitis Unspecified 10/14/2008 461.9 Acute Sinusitis Unspecified 10/14/2008 461.9 Acute Sinusitis Unspecified 10/14/2008 MELISSA DAHL MD 461.9 Acute Sinusitis Unspecified 10/14/2008 ANAYELI SYSTEMS ANALYST, DON S 461.9 Acute Sinusitis Unspecified 10/14/2008 KACIE DRIVER DDS 461.9 Acute Sinusitis Unspecified 10/14/2008 ANAYELI SYSTEMS ANALYST, DON S 461.9 Acute Sinusitis Unspecified 10/14/2008 ANAYELI SYSTEMS ANALYST, DON S 461.9 Acute Sinusitis Unspecified 10/14/2008 ANAYELI PATN, DON S 461.9 Acute Sinusitis Unspecified 10/14/2008 ANAYELI SYSTEMS ANALYST, DON S 461.9 Acute Sinusitis Unspecified 10/14/2008 STALIN PUGA DDS 461.9 Acute Sinusitis Unspecified 10/14/2008 ANAYELI SYSTEMS ANALYST, DON S 461.9 Acute Sinusitis Unspecified 01/28/2009 ANAYELI BARON, DON S 309.81 Chronic Post-traumatic Stress Disorder 01/28/2009 ANAYELI BARON, DON S 564.01 Constipation Slow Transit 01/28/2009 ANAYELI BARON, DON S 780.52 insomnia 01/28/2009 ANAYELI BARON, DON S 780.79 Feeling Tired Or Poorly 01/28/2009 309.81 Chronic Post-traumatic Stress Disorder 01/28/2009 564.01 Constipation Slow Transit 01/28/2009 780.52 insomnia 01/28/2009 780.79 Feeling Tired Or Poorly 01/28/2009 ANAYELI BARON, DON S 309.81 Chronic Post-traumatic Stress Disorder 01/28/2009 ANAYELI BARON, DON S 564.01 Constipation Slow Transit 01/28/2009 DOMINIQUE GUADALUPE APRNNDA S 780.52 insomnia 01/28/2009 DOMINIQUE GUADALUPE APRNNDA S 780.79 Feeling Tired Or Poorly 01/28/2009 DOMINIQUE GUADALUPE APRNNDA S 309.81 Chronic Post-traumatic Stress Disorder 01/28/2009 DOMINIQUE GUADALUPE APRNNDA S 564.01 Constipation Slow Transit 01/28/2009 DOMINIQUE GUADALUPE APRNNDA S 780.52 insomnia 01/28/2009 DOMINIQUE GUADALUPE APRNNDA S 780.79 Feeling Tired Or Poorly 01/28/2009 309.81 Chronic Post-traumatic Stress Disorder 01/28/2009 564.01 Constipation Slow Transit 01/28/2009 780.52 insomnia 01/28/2009 780.79 Feeling Tired Or Poorly 01/28/2009 309.81 Chronic Post-traumatic Stress Disorder 01/28/2009 564.01 Constipation Slow Transit [...] DDS 309.81 Chronic Post-traumatic Stress Disorder 01/28/2009 KACIE DRIVER DDS 564.01 Constipation Slow Transit 01/28/2009 KACIE DRIVER DDS 780.52 insomnia 01/28/2009 KACIE DRIVER DDS 780.79 Feeling Tired Or Poorly 01/28/2009 DOMINIQUE GUADALUPE APRNNDA S 309.81 Chronic Post-traumatic Stress Disorder 01/28/2009 SAMANTHA GUADALUPE APRNA S 564.01 Constipation Slow Transit 01/28/2009 DOMIINQUE GUADALUPE APRNNDA S 780.52 insomnia 01/28/2009 DOMINIQUE [...] ANAYELI BARON DON S 780.52 insomnia 01/28/2009 ANAYELI BARON DON S 780.79 Feeling Tired Or Poorly 02/27/2009 DOMINIQUE GUADALUPE APRNNDA S 461.1 Sinusitis Acute Frontal 02/27/2009 ANAYELI PATN, DON S 784.0 Headache 02/27/2009 461.1 Sinusitis Acute Frontal 02/27/2009 784.0 Headache 02/27/2009 ANAYELI SYSTEMS ANALYST, DON S 461.1 Sinusitis Acute Frontal 02/27/2009 ANAYELI SYSTEMS ANALYST, DON S 784.0 Headache 02/27/2009 ANAYELI PATN, DON S 461.1 Sinusitis Acute Frontal 02/27/2009 ANAYELI PATN, DON S 784.0 Headache 02/27/2009 461.1 Sinusitis Acute Frontal 02/27/2009 784.0 Headache 02/27/2009 461.1 Sinusitis Acute Frontal 02/27/2009 784.0 Headache 02/27/2009 NABILA MARSHALL, MELISSA 461.1 Sinusitis Acute Frontal 02/27/2009 NABILA MARSHALL, MELISSA 784.0 Headache 02/27/2009 ANAYELI BARON, DON S 461.1 Sinusitis Acute Frontal 02/27/2009 ANAYELI BARON, DON S 784.0 Headache 02/27/2009 NEISHA DDS, KACIE M 461.1 Sinusitis Acute Frontal 02/27/2009 NEISHA DDS, KACIE M 784.0 Headache 02/27/2009 ANAYELI BARON, DON S 461.1 Sinusitis Acute Frontal 02/27/2009 ANAYELI SYSTEMS ANALYST, DON S 784.0 Headache 02/27/2009 ANAYELI BARON, DON S 461.1 Sinusitis Acute Frontal 02/27/2009 ANAYELI SYSTEMS ANALYST, DON S 784.0 Headache 02/27/2009 ANAYELI SYSTEMS ANALYST, DON S 461.1 Sinusitis Acute Frontal 02/27/2009 ANAYELI SYSTEMS ANALYST, DON S 784.0 Headache 02/27/2009 ANAYELI SYSTEMS ANALYST, DON S 461.1 Sinusitis Acute Frontal 02/27/2009 ANAYELI SYSTEMS ANALYST, DON S 784.0 Headache 02/27/2009 WHITE DDS, STALIN J 461.1 Sinusitis Acute Frontal 02/27/2009 WHITE DDS, STALIN J 784.0 Headache 02/27/2009 DON GUADALUPE APRN S 461.1 Sinusitis Acute Frontal 02/27/2009 SAMANTHA GUADALUPE APRNA S 784.0 Headache 03/20/2009 SAMANTHA GUADALUPE APRNA S 724.1 upper back pain (between shoulder blades) 03/20/2009 DOMINIQUE GUADALUPE APRNNDA S 787.01 Nausea With Vomiting 03/20/2009 ANAYELI BARON DON S 787.91 Diarrhea 03/20/2009 724.1 upper back pain (between shoulder blades) 03/20/2009 787.01 Nausea With Vomiting 03/20/2009 787.91 Diarrhea 03/20/2009 SAMANTHA GUADALUPE APRNA S 724.1 upper back pain (between shoulder blades) 03/20/2009 DOMINIQUE GUADALUPE APRNNDA S 787.01 Nausea With Vomiting 03/20/2009 DOMINIQUE GUADALUPE APRNNDA S 787.91 Diarrhea 03/20/2009 SAMANTHA GUADALUPE APRNA S 724.1 upper back pain (between shoulder blades) 03/20/2009 SAMANTHA GUADALUPE APRNA S 787.01 Nausea With Vomiting 03/20/2009 DOMINIQUE GUADALUPE APRNNDA S 787.91 Diarrhea 03/20/2009 724.1 upper back pain (between shoulder blades) 03/20/2009 787.01 Nausea With Vomiting 03/20/2009 787.91 Diarrhea 03/20/2009 724.1 upper back pain (between shoulder blades) 03/20/2009 787.01 Nausea With Vomiting 03/20/2009 787.91 Diarrhea 03/20/2009 MELISSA DAHL MD 724.1 upper back pain (between shoulder blades) 03/20/2009 MELISSA DAHL MD 787.01 Nausea With Vomiting 03/20/2009 MELISSA DAHL MD 787.91 Diarrhea 03/20/2009 SAMANTHA GUADALUPE APRNA S 724.1 upper back pain (between shoulder blades) 03/20/2009 SAMANTHA GUADALUPE APRNA S 787.01 Nausea With Vomiting 03/20/2009 DOMINIQUE GUADALUPE APRNNDA S 787.91 Diarrhea 03/20/2009 NEISHA NEGRONS, KACIE M 724.1 upper back pain (between shoulder blades) 03/20/2009 NEISHA DDS, KACIE M 787.01 Nausea With Vomiting 03/20/2009 NEISHA DDS, KACIE M 787.91 Diarrhea 03/20/2009 ANAYELI SYSTEMS ANALYST, DON S 724.1 upper back pain (between shoulder blades) 03/20/2009 ANAYELI SYSTEMS ANALYST, DON S 787.01 Nausea With Vomiting 03/20/2009 ANAYELI SYSTEMS ANALYST, DON S 787.91 Diarrhea 03/20/2009 ANAYELI SYSTEMS ANALYST, DON S 724.1 upper back pain (between shoulder blades) 03/20/2009 ANAYELI SYSTEMS ANALYST, DON S 787.01 Nausea With Vomiting 03/20/2009 ANAYELI SYSTEMS ANALYST, DON S 787.91 Diarrhea 03/20/2009 ANAYELI SYSTEMS ANALYST, DON S 724.1 upper back pain (between shoulder blades) 03/20/2009 ANAYELI SYSTEMS ANALYST, DON S 787.01 Nausea With Vomiting 03/20/2009 ANAYELI SYSTEMS ANALYST, DON S 787.91 Diarrhea 03/20/2009 ANAYELI SYSTEMS ANALYST, DON S 724.1 upper back pain (between shoulder blades) 03/20/2009 ANAYELI SYSTEMS ANALYST, DON S 787.01 Nausea With Vomiting 03/20/2009 ANAYELI SYSTEMS ANALYST, DON S 787.91 Diarrhea 03/20/2009 WHITE DDS, STALIN J 724.1 upper back pain (between shoulder blades) 03/20/2009 WHITE DDS, STALIN J 787.01 Nausea With Vomiting 03/20/2009 WHITE DDS, STALIN J 787.91 Diarrhea 03/20/2009 ANAYELI SYSTEMS ANALYST, DON S 724.1 upper back pain (between shoulder blades) 03/20/2009 ANAYELI SYSTEMS ANALYST, DON S 787.01 Nausea With Vomiting 03/20/2009 ANAYELI SYSTEMS ANALYST, DON S 787.91 Diarrhea 03/25/2009 ANAYELI BARON, DON S 300.02 GENERALIZED ANXIETY DISORDER 03/25/2009 300.02 GENERALIZED ANXIETY DISORDER 03/25/2009 ANAYELI SYSTEMS ANALYST, DON S 300.02 GENERALIZED ANXIETY DISORDER 03/25/2009 ANAYELI SYSTEMS ANALYST, DON S 300.02 GENERALIZED ANXIETY DISORDER 03/25/2009 300.02 GENERALIZED ANXIETY DISORDER 03/25/2009 300.02 GENERALIZED ANXIETY DISORDER 03/25/2009 MELISSA DAHL MD 300.02 GENERALIZED ANXIETY DISORDER 03/25/2009 ANAYELI SYSTEMS ANALYST, DON S 300.02 GENERALIZED ANXIETY DISORDER 03/25/2009 KACIE DRIVER DDS 300.02 GENERALIZED ANXIETY DISORDER 03/25/2009 ANAYELI SYSTEMS ANALYST, DON S 300.02 GENERALIZED ANXIETY DISORDER 03/25/2009 ANAYELI SYSTEMS ANALYST, DON S 300.02 GENERALIZED ANXIETY DISORDER 03/25/2009 ANAYELI SYSTEMS ANALYST, DON S 300.02 GENERALIZED ANXIETY DISORDER 03/25/2009 ANAYELI SYSTEMS ANALYST, DON S 300.02 GENERALIZED ANXIETY DISORDER 03/25/2009 STALIN PUGA DDS 300.02 GENERALIZED ANXIETY DISORDER 03/25/2009 ANAYELI SYSTEMS ANALYST, DON S 300.02 GENERALIZED ANXIETY DISORDER 05/26/2009 ANAYELI SYSTEMS ANALYST, DON S 041.19 Staphylococcus Infection In Conditions Classified Elsewhere And Of Unspecified Site, Other Staphylococcus 05/26/2009 ANAYELI SYSTEMS ANALYST, DON S 709.9 Dermatology - Non-infectious 05/26/2009 041.19 Staphylococcus Infection In Conditions Classified Elsewhere And Of Unspecified Site, Other Staphylococcus 05/26/2009 709.9 Dermatology - Non- infectious 05/26/2009 ANAYELI SYSTEMS ANALYST, DON S 041.19 Staphylococcus Infection In Conditions Classified Elsewhere And Of Unspecified Site, Other Staphylococcus 05/26/2009 ANAYELI SYSTEMS ANALYST, DON S 709.9 Dermatology - Non-infectious 05/26/2009 ANAYELI SYSTEMS ANALYST, DON S 041.19 Staphylococcus Infection In Conditions Classified Elsewhere And Of Unspecified Site, Other Staphylococcus 05/26/2009 ANAYELI SYSTEMS ANALYST, DON S 709.9 Dermatology - Non-infectious 05/26/2009 041.19 Staphylococcus Infection In Conditions Classified Elsewhere And Of Unspecified Site, Other Staphylococcus 05/26/2009 709.9 Dermatology - Non- infectious 05/26/2009 041.19 Staphylococcus Infection In Conditions Classified Elsewhere And Of Unspecified Site, Other Staphylococcus 05/26/2009 709.9 Dermatology - Non- infectious 05/26/2009 MELISSA DAHL MD 041.19 Staphylococcus Infection In Conditions Classified Elsewhere And Of Unspecified Site, Other Staphylococcus 05/26/2009 MELISSA DAHL MD 709.9 Dermatology - Non-infectious 05/26/2009 ANAYELI SYSTEMS ANALYST, DON S 041.19 Staphylococcus Infection In Conditions Classified Elsewhere And Of Unspecified Site, Other Staphylococcus 05/26/2009 ANAYELI SYSTEMS ANALYST, DON S 709.9 Dermatology - Non-infectious 05/26/2009 NEISHA DDS, KACIE Fontanez 041.19 Staphylococcus Infection In Conditions Classified Elsewhere And Of Unspecified Site, Other Staphylococcus 05/26/2009 NEISHA DDS, KACIE Fontanez 709.9 Dermatology - Non-infectious 05/26/2009 ANAYELI SYSTEMS ANALYST, DON S 041.19 Staphylococcus Infection In Conditions Classified Elsewhere And Of Unspecified Site, Other Staphylococcus 05/26/2009 ANAYELI SYSTEMS ANALYST, DON S 709.9 Dermatology - Non-infectious 05/26/2009 ANAYELI SYSTEMS ANALYST, DON S 041.19 Staphylococcus Infection In Conditions Classified Elsewhere And Of Unspecified Site, Other Staphylococcus 05/26/2009 ANAYELI SYSTEMS ANALYST, DON S 709.9 Dermatology - Non-infectious 05/26/2009 ANAYELI SYSTEMS ANALYST, DON S 041.19 Staphylococcus Infection In Conditions Classified Elsewhere And Of Unspecified Site, Other Staphylococcus 05/26/2009 ANAYELI SYSTEMS ANALYST, DON S 709.9 Dermatology - Non-infectious 05/26/2009 ANAYELI SYSTEMS ANALYST, DON S 041.19 Staphylococcus Infection In Conditions Classified Elsewhere And Of Unspecified Site, Other Staphylococcus 05/26/2009 ANAYELI SYSTEMS ANALYST, DON S 709.9 Dermatology - Non-infectious 05/26/2009 WHITE DDS, STALIN J 041.19 Staphylococcus Infection In Conditions Classified Elsewhere And Of Unspecified Site, Other Staphylococcus 05/26/2009 WHITE DDS, STALIN J 709.9 Dermatology - Non-infectious 05/26/2009 ANAYELI SYSTEMS ANALYST, DON S 041.19 Staphylococcus Infection In Conditions Classified Elsewhere And Of Unspecified Site, Other Staphylococcus 05/26/2009 ANAYELI SYSTEMS ANALYST, DON S 709.9 Dermatology - Non-infectious 06/03/2009 Ot 724.1 06/03/2009 Ot V57.1 08/18/2009 DON GUADALUPE APRN S 723.1 Neck Pain 08/18/2009 723.1 Neck Pain 08/18/2009 DOMINIQUE GUADALUPE APRNNDA S 723.1 Neck Pain 08/18/2009 ANAYELI BARON, DON S 723.1 Neck Pain 08/18/2009 723.1 Neck Pain 08/18/2009 723.1 Neck Pain 08/18/2009 MELISSA DAHL MD 723.1 Neck Pain 08/18/2009 DOMINIQUE GUADALUPE APRNNDA S 723.1 Neck Pain 08/18/2009 KACIE DRIVER DDS 723.1 Neck Pain 08/18/2009 DOMINIQUE GUADALUPE [...] hormones for postmenopausal HRT 10/14/2009 V16.3 Hereditary Site- specific Breast Cancer 10/14/2009 V76.10 Visit For: Screening Exam Malignant Neoplasm Breast 10/14/2009 DON GUADALUPE APRN S V07.4 taking female hormones for postmenopausal HRT 10/14/2009 DON GUADALUPE APRN S V16.3 Hereditary Site-specific Breast Cancer 10/14/2009 ANAYELI SYSTEMS ANALYST, DON S V76.10 Visit For: Screening Exam Malignant Neoplasm Breast 10/14/2009 ANAYELI BARON, DON S V07.4 taking female hormones for postmenopausal HRT 10/14/2009 ANAYELI BARON, DON S V16.3 Hereditary Site-specific Breast Cancer 10/14/2009 ANAYELI BARON DON S V76.10 Visit For: Screening Exam Malignant Neoplasm Breast 10/14/2009 V07.4 taking female hormones for postmenopausal HRT 10/14/2009 V16.3 Hereditary Site- specific Breast Cancer 10/14/2009 V76.10 Visit For: Screening Exam Malignant Neoplasm Breast 10/14/2009 V07.4 taking female hormones for postmenopausal HRT 10/14/2009 V16.3 Hereditary Site- specific Breast Cancer 10/14/2009 V76.10 Visit For: Screening Exam Malignant Neoplasm Breast 10/14/2009 MELISSA DAHL MD V07.4 taking female hormones for postmenopausal HRT 10/14/2009 MELISSA DAHL MD V16.3 Hereditary Site-specific Breast Cancer 10/14/2009 MELISSA DAHL MD V76.10 Visit For: Screening Exam Malignant Neoplasm Breast 10/14/2009 DOMINIQUE GUADALUPE APRNNDA S V07.4 taking female hormones for postmenopausal HRT 10/14/2009 DOMINIQUE GUADALUPE APRNNDA S V16.3 Hereditary Site-specific Breast Cancer 10/14/2009 DOMINIQUE GUADALUPE APRNNDA S V76.10 Visit For: Screening Exam Malignant Neoplasm Breast 10/14/2009 KACIE DRIVER DDS V07.4 taking female hormones for postmenopausal HRT 10/14/2009 KACIE DRIVER DDS V16.3 Hereditary Site-specific Breast Cancer 10/14/2009 KACIE DRIVER DDS V76.10 Visit For: Screening Exam Malignant Neoplasm Breast 10/14/2009 DOMINIQUE GUADALUPE APRNNDA S V07.4 taking female hormones for postmenopausal HRT 10/14/2009 ANAYELI BARON DON S V16.3 Hereditary Site-specific Breast Cancer 10/14/2009 DOMINIQUE GUADLAUPE APRNNDA S V76.10 Visit For: Screening Exam Malignant Neoplasm Breast 10/14/2009 DOMINIQUE GUADALUPE APRNNDA S V07.4 taking female hormones for postmenopausal HRT 10/14/2009 ANAYELI SYSTEMS ANALYST, DON S V16.3 Hereditary Site-specific Breast Cancer 10/14/2009 ANAYELI SYSTEMS ANALYST, DON S V76.10 Visit For: Screening Exam Malignant Neoplasm Breast 10/14/2009 ANAYELI SYSTEMS ANALYST, DON S V07.4 taking female hormones for postmenopausal HRT 10/14/2009 ANAYELI SYSTEMS ANALYST, DON S V16.3 Hereditary Site-specific Breast Cancer 10/14/2009 ANAYELI SYSTEMS ANALYST, DON S V76.10 Visit For: Screening Exam Malignant Neoplasm Breast 10/14/2009 ANAYELI SYSTEMS ANALYST, DON S V07.4 taking female hormones for postmenopausal HRT 10/14/2009 ANAYELI SYSTEMS ANALYST, DON S V16.3 Hereditary Site-specific Breast Cancer 10/14/2009 ANAYELI SYSTEMS ANALYST, DON S V76.10 Visit For: Screening Exam Malignant Neoplasm Breast 10/14/2009 WHITE DDS, STALIN J V07.4 taking female hormones for postmenopausal HRT 10/14/2009 WHITE DDS, STALIN J V16.3 Hereditary Site-specific Breast Cancer 10/14/2009 WHITE DDS, STALIN J V76.10 Visit For: Screening Exam Malignant Neoplasm Breast 10/14/2009 ANAYELI BARON, DON S V07.4 taking female hormones for postmenopausal HRT 10/14/2009 ANAYELI SYSTEMS ANALYST, DON S V16.3 Hereditary Site-specific Breast Cancer 10/14/2009 ANAYELI SYSTEMS ANALYST, DON S V76.10 Visit For: Screening Exam Malignant Neoplasm Breast 10/29/2009 ANAYELI SYSTEMS ANALYST, DON S 599.0 Urinary Tract Infection, Site Not Specified 10/29/2009 599.0 Urinary Tract Infection, Site Not Specified 10/29/2009 ANAYELI SYSTEMS ANALYST, DON S 599.0 Urinary Tract Infection, Site Not Specified 10/29/2009 ANAYELI SYSTEMS ANALYST, DON S 599.0 Urinary Tract Infection, Site Not Specified 10/29/2009 599.0 Urinary Tract Infection, Site Not Specified 10/29/2009 599.0 Urinary Tract Infection, Site Not Specified 10/29/2009 NABILA MARSHALL, MELISSA 599.0 Urinary Tract Infection, Site Not Specified 10/29/2009 ANAYELI SYSTEMS ANALYST, DON S 599.0 Urinary Tract Infection, Site Not Specified 10/29/2009 NEISHA NEGRONS, KACIE Fontanez 599.0 Urinary Tract Infection, Site Not Specified 10/29/2009 ANAYELI SYSTEMS ANALYST, DON S 599.0 Urinary Tract Infection, Site Not Specified 10/29/2009 ANAYELI SYSTEMS ANALYST, DON S 599.0 Urinary Tract Infection, Site Not Specified 10/29/2009 ANAYELI SYSTEMS ANALYST, DON S 599.0 Urinary Tract Infection, Site Not Specified 10/29/2009 ANAYELI SYSTEMS ANALYST, DON S 599.0 Urinary Tract Infection, Site Not Specified 10/29/2009 EDD SANCHEZ, STALIN Gordon 599.0 Urinary Tract Infection, Site Not Specified 10/29/2009 ANAYELI SYSTEMS ANALYST, DON S 599.0 Urinary Tract Infection, Site Not Specified 11/03/2009 ANAYELI SYSTEMS ANALYST, DON S 595.0 Cystitis Acute 11/03/2009 ANAYELI SYSTEMS ANALYST, DON S 788.1 Dysuria 11/03/2009 595.0 Cystitis Acute 11/03/2009 788.1 Dysuria 11/03/2009 ANAYELI SYSTEMS ANALYST, DON S 595.0 Cystitis Acute 11/03/2009 ANAYELI SYSTEMS ANALYST, DON S 788.1 Dysuria 11/03/2009 ANAYELI SYSTEMS ANALYST, DON S 595.0 Cystitis Acute 11/03/2009 ANAYELI SYSTEMS ANALYST, DON S 788.1 Dysuria 11/03/2009 595.0 Cystitis Acute 11/03/2009 788.1 Dysuria 11/03/2009 595.0 Cystitis Acute 11/03/2009 788.1 Dysuria 11/03/2009 MELISSA DAHL MD 595.0 Cystitis Acute 11/03/2009 MELISSA DAHL MD 788.1 Dysuria 11/03/2009 ANAYELI SYSTEMS ANALYST, DON S 595.0 Cystitis Acute 11/03/2009 ANAYELI SYSTEMS ANALYST, DON S 788.1 Dysuria 11/03/2009 NEISHA NEGRONS, KACIE Fontanez 595.0 Cystitis Acute 11/03/2009 NEISHA DDS, KACIE M 788.1 Dysuria 11/03/2009 ANAYELI BARON, DON S 595.0 Cystitis Acute 11/03/2009 ANAYELI BARON, DON S 788.1 Dysuria 11/03/2009 ANAYELI SYSTEMS ANALYST, DON S 595.0 Cystitis Acute 11/03/2009 ANAYELI BARON, DON S 788.1 Dysuria 11/03/2009 ANAYELI BARON, DON S 595.0 Cystitis Acute 11/03/2009 ANAYELI SYSTEMS ANALYST, DON S 788.1 Dysuria 11/03/2009 ANAYELI BARON, DON S 595.0 Cystitis Acute 11/03/2009 ANAYELI SYSTEMS ANALYST, DON S 788.1 Dysuria 11/03/2009 WHITE DDS, [...] OF DRUGS, TOBACCO USE DISORDER 12/10/2009 KACIE RDIVER DDS V65.42 COUNSELING ON SUBSTANCE USE AND [...] 12/25/2009 Ot 786.50 12/25/2009 Ot 786.52 03/09/2010 ANAYELI SYSTEMS ANALYST, DON S 780.8 GENERALIZED HYPERHIDROSIS 03/09/2010 ANAYELI SYSTEMS ANALYST, DON S 786.50 Chest Pain 03/09/2010 780.8 GENERALIZED HYPERHIDROSIS 03/09/2010 786.50 Chest Pain 03/09/2010 ANAYELI SYSTEMS ANALYST, DON S 780.8 GENERALIZED HYPERHIDROSIS 03/09/2010 ANAYELI SYSTEMS ANALYST, DON S 786.50 Chest Pain 03/09/2010 ANAYELI SYSTEMS ANALYST, DON S 780.8 GENERALIZED HYPERHIDROSIS 03/09/2010 ANAYELI SYSTEMS ANALYST, DON S 786.50 Chest Pain 03/09/2010 780.8 GENERALIZED HYPERHIDROSIS 03/09/2010 786.50 Chest Pain 03/09/2010 780.8 GENERALIZED HYPERHIDROSIS 03/09/2010 786.50 Chest Pain 03/09/2010 MELISSA DAHL MD 780.8 GENERALIZED HYPERHIDROSIS 03/09/2010 MELISSA DAHL MD 786.50 Chest Pain 03/09/2010 ANAYELI SYSTEMS ANALYST, DON S 780.8 GENERALIZED HYPERHIDROSIS 03/09/2010 ANAYELI SYSTEMS ANALYST, DON S 786.50 Chest Pain 03/09/2010 NEISHA DDS, KACIE M 780.8 GENERALIZED HYPERHIDROSIS 03/09/2010 KACIE DRIVER DDS 786.50 Chest Pain 03/09/2010 ANAYELI SYSTEMS ANALYST, DON S 780.8 GENERALIZED HYPERHIDROSIS 03/09/2010 ANAYELI SYSTEMS ANALYST, DON S 786.50 Chest Pain 03/09/2010 ANAYELI SYSTEMS ANALYST, DON S 780.8 GENERALIZED HYPERHIDROSIS 03/09/2010 ANAYELI SYSTEMS ANALYST, DON S 786.50 Chest Pain 03/09/2010 ANAYELI SYSTEMS ANALYST, DON S 780.8 GENERALIZED HYPERHIDROSIS 03/09/2010 ANAYELI SYSTEMS ANALYST, DON S 786.50 Chest Pain 03/09/2010 ANAYELI SYSTEMS ANALYST, DON S 780.8 GENERALIZED HYPERHIDROSIS 03/09/2010 ANAYELI SYSTEMS ANALYST, DON S 786.50 Chest Pain 03/09/2010 EDD DDS, STALIN Gordon 780.8 GENERALIZED HYPERHIDROSIS 03/09/2010 WHITE DDS, STALIN J 786.50 Chest Pain 03/09/2010 DON GUADALUPE APRN S 780.8 GENERALIZED HYPERHIDROSIS 03/09/2010 DOMINIQUE GUADALUPE APRNNDA S 786.50 Chest Pain 03/10/2010 DOMINIQUE GUADALUPE APRNNDA S V15.85 PERSONAL HISTORY OF CONTACT WITH AND (SUSPECTED) EXPOSURE TO POTENTIALLY HAZARDOUS BODY FLUIDS 03/10/2010 V15.85 PERSONAL HISTORY OF CONTACT WITH AND (SUSPECTED) EXPOSURE TO POTENTIALLY HAZARDOUS BODY FLUIDS 03/10/2010 SAMANTHA GUADALUPE APRNA S V15.85 PERSONAL HISTORY OF CONTACT WITH [...] EXPOSURE TO POTENTIALLY HAZARDOUS BODY FLUIDS 03/10/2010 SAMANTHA GUADALUPE APRNA S V15.85 PERSONAL HISTORY OF CONTACT WITH AND (SUSPECTED) EXPOSURE TO POTENTIALLY HAZARDOUS BODY FLUIDS 03/10/2010 KACIE DRIVER DDS V15.85 PERSONAL HISTORY OF CONTACT WITH AND (SUSPECTED) EXPOSURE TO POTENTIALLY HAZARDOUS BODY FLUIDS 03/10/2010 DON GUADALUPE APRN S V15.85 PERSONAL HISTORY OF CONTACT WITH AND (SUSPECTED) EXPOSURE TO POTENTIALLY HAZARDOUS BODY FLUIDS 03/10/2010 SAMANTHA GUADALUPE APRNA S V15.85 PERSONAL HISTORY OF CONTACT WITH AND (SUSPECTED) EXPOSURE TO POTENTIALLY HAZARDOUS BODY FLUIDS 03/10/2010 SAMANTHA GUADALUPE APRNA S V15.85 PERSONAL HISTORY OF CONTACT WITH AND (SUSPECTED) EXPOSURE TO POTENTIALLY HAZARDOUS BODY FLUIDS 03/10/2010 SAMANTHA GUADALUPE APRNA S V15.85 PERSONAL HISTORY OF CONTACT WITH AND (SUSPECTED) EXPOSURE TO POTENTIALLY HAZARDOUS BODY FLUIDS 03/10/2010 STALIN PUGA DDS V15.85 PERSONAL HISTORY OF CONTACT WITH AND (SUSPECTED) EXPOSURE TO POTENTIALLY HAZARDOUS BODY FLUIDS 03/10/2010 SAMANTHA GUADALUPE APRNA S V15.85 PERSONAL HISTORY OF CONTACT WITH AND (SUSPECTED) EXPOSURE TO POTENTIALLY HAZARDOUS BODY FLUIDS 03/17/2010 ANAYELI BARON, DON S 414.01 CAD 03/17/2010 414.01 CAD 03/17/2010 ANAYELI SYSTEMS ANALYST, DON S 414.01 CAD 03/17/2010 ANAYELI SYSTEMS ANALYST, DON S 414.01 CAD 03/17/2010 414.01 CAD 03/17/2010 414.01 CAD 03/17/2010 MELISSA DAHL MD 414.01 CAD 03/17/2010 ANAYELI SYSTEMS ANALYST, DON S 414.01 CAD 03/17/2010 KACIE DRIVER DDS 414.01 CAD 03/17/2010 ANAYELI SYSTEMS ANALYST, DON S 414.01 CAD 03/17/2010 ANAYELI SYSTEMS ANALYST, DON S 414.01 CAD 03/17/2010 ANAYELI BARON, DON S 414.01 CAD 03/17/2010 ANAYELI BARON, [...] APRNNDA S 847.9 Sprain/strain Back Unspec 07/20/2010 SAMANTHA GUADALUPE APRNA S 847.9 Sprain/strain Back Unspec 07/20/2010 847.9 Sprain/strain Back Unspec 07/20/2010 847.9 Sprain/strain Back Unspec 07/20/2010 MELISSA DAHL MD 847.9 Sprain/strain Back Unspec 07/20/2010 SAMANTHA GUADALUPE APRNA S 847.9 Sprain/strain Back Unspec 07/20/2010 NEISHA DDS, KACIE Fontanez 847.9 Sprain/strain Back Unspec 07/20/2010 ANAYELI SYSTEMS ANALYST, DON S 847.9 Sprain/strain Back Unspec 07/20/2010 ANAYELI SYSTEMS ANALYST, DON S 847.9 Sprain/strain Back Unspec 07/20/2010 ANAYELI SYSTEMS ANALYST, DON S 847.9 Sprain/strain Back Unspec 07/20/2010 ANAYELI SYSTEMS ANALYST, DON S 847.9 Sprain/strain Back Unspec 07/20/2010 EDD NEGRONS, STALIN J 847.9 Sprain/strain Back Unspec 07/20/2010 ANAYELI SYSTEMS ANALYST, DON S 847.9 Sprain/strain Back Unspec 08/06/2010 ANAYELI SYSTEMS ANALYST, DON S 682.9 Cellulitis And Abscess Of Unspecified Sites 08/06/2010 682.9 Cellulitis And Abscess Of Unspecified Sites 08/06/2010 ANAYELI SYSTEMS ANALYST, DON S 682.9 Cellulitis And Abscess Of Unspecified Sites 08/06/2010 ANAYELI SYSTEMS ANALYST, DON S 682.9 Cellulitis And Abscess Of Unspecified Sites 08/06/2010 682.9 Cellulitis And Abscess Of Unspecified Sites 08/06/2010 682.9 Cellulitis And Abscess Of Unspecified Sites 08/06/2010 MELISSA DAHL MD 682.9 Cellulitis And Abscess Of Unspecified Sites 08/06/2010 ANAYELI SYSTEMS ANALYST, DON S 682.9 Cellulitis And Abscess Of Unspecified Sites 08/06/2010 NEISHA NEGRONS, KACIE Fontanez 682.9 Cellulitis And Abscess Of Unspecified Sites 08/06/2010 ANAYELI SYSTEMS ANALYST, DON S 682.9 Cellulitis And Abscess Of Unspecified Sites 08/06/2010 ANAYELI SYSTEMS ANALYST, DON S 682.9 Cellulitis And Abscess Of Unspecified Sites 08/06/2010 ANAYELI SYSTEMS ANALYST, DON S 682.9 Cellulitis And Abscess Of Unspecified Sites 08/06/2010 ANAYELI SYSTEMS ANALYST, DON S 682.9 Cellulitis And Abscess Of Unspecified Sites 08/06/2010 EDD NEGRONS, STALIN J 682.9 Cellulitis And Abscess Of Unspecified Sites 08/06/2010 ANAYELI SYSTEMS ANALYST, DON S 682.9 Cellulitis And Abscess Of Unspecified Sites 09/02/2010 ANAYELI SYSTEMS ANALYST, DON S 611.71 Breast Pain 09/02/2010 ANAYELI SYSTEMS ANALYST, DON S 787.3 Gas/bloating Pain 09/02/2010 ANAYELI SYSTEMS ANALYST, DON S 789.03 Abdominal Pain Right Lower Quadrant 09/02/2010 611.71 Breast Pain 09/02/2010 787.3 Gas/bloating Pain 09/02/2010 789.03 Abdominal Pain Right Lower Quadrant 09/02/2010 ANAYELI SYSTEMS ANALYST, DON S 611.71 Breast Pain 09/02/2010 ANAYELI SYSTEMS ANALYST, DON S 787.3 Gas/bloating Pain 09/02/2010 ANAYELI SYSTEMS ANALYST, DON S 789.03 Abdominal Pain Right Lower Quadrant 09/02/2010 ANAYELI SYSTEMS ANALYST, DON S 611.71 Breast Pain 09/02/2010 ANAYELI SYSTEMS ANALYST, DON S 787.3 Gas/bloating Pain 09/02/2010 ANAYELI SYSTEMS ANALYST, DON S 789.03 Abdominal Pain Right Lower [...] 789.03 Abdominal Pain Right Lower Quadrant 09/02/2010 NEISHA SANCHEZ, KACIE M 611.71 Breast Pain 09/02/2010 NEISHA DDS, KACIE M 787.3 Gas/bloating Pain 09/02/2010 NEISHA DDS, KACIE M 789.03 Abdominal Pain Right Lower Quadrant 09/02/2010 ANAYELI SYSTEMS ANALYST, DON S 611.71 Breast Pain 09/02/2010 ANAYELI SYSTEMS ANALYST, DON S 787.3 Gas/bloating Pain 09/02/2010 ANAYELI SYSTEMS ANALYST, DON S 789.03 Abdominal Pain Right Lower Quadrant 09/02/2010 ANAYELI SYSTEMS ANALYST, DON S 611.71 Breast Pain 09/02/2010 ANAYELI SYSTEMS ANALYST, DON S 787.3 Gas/bloating Pain 09/02/2010 ANAYELI SYSTEMS ANALYST, DON S 789.03 Abdominal Pain Right Lower Quadrant 09/02/2010 ANAYELI SYSTEMS ANALYST, DON S 611.71 Breast Pain 09/02/2010 ANAYELI SYSTEMS ANALYST, DON S 787.3 Gas/bloating Pain 09/02/2010 ANAYELI SYSTEMS ANALYST, DON S 789.03 Abdominal Pain Right Lower Quadrant 09/02/2010 ANAYELI SYSTEMS ANALYST, DON S 611.71 Breast Pain 09/02/2010 ANAYELI SYSTEMS ANALYST, DON S 787.3 Gas/bloating Pain 09/02/2010 ANAYELI SYSTEMS ANALYST, DON S 789.03 Abdominal Pain Right Lower Quadrant 09/02/2010 WHITE DDS, STALIN J 611.71 Breast Pain 09/02/2010 WHITE DDS, STALIN J 787.3 Gas/bloating Pain 09/02/2010 WHITE DDS, STALIN J 789.03 Abdominal Pain Right Lower Quadrant 09/02/2010 ANAYELI SYSTEMS ANALYST, DON S 611.71 Breast Pain 09/02/2010 ANAYELI SYSTEMS ANALYST, DON S 787.3 Gas/bloating Pain 09/02/2010 ANAYELI SYSTEMS ANALYST, DON S 789.03 Abdominal Pain Right Lower Quadrant 11/10/2010 ANAYELI SYSTEMS ANALYST, DON S 611.72 Breast Lump Or Mass 11/10/2010 ANAYELI BARON, DON S 799.22 Irritibility 11/10/2010 611.72 Breast Lump Or Mass 11/10/2010 799.22 Irritibility 11/10/2010 ANAYELI SYSTEMS ANALYST, DON S 611.72 Breast Lump Or Mass 11/10/2010 ANAYELI SYSTEMS ANALYST, DON S 799.22 Irritibility 11/10/2010 ANAYELI SYSTEMS ANALYST, DON S 611.72 Breast Lump Or Mass 11/10/2010 ANAYELI SYSTEMS ANALYST, DON S 799.22 Irritibility 11/10/2010 611.72 Breast Lump Or Mass 11/10/2010 799.22 Irritibility 11/10/2010 611.72 Breast Lump Or Mass 11/10/2010 799.22 Irritibility 11/10/2010 MELISSA DAHL MD 611.72 Breast Lump Or Mass 11/10/2010 MELISSA DAHL MD 799.22 Irritibility 11/10/2010 ANAYELI SYSTEMS ANALYST, DON S 611.72 Breast Lump Or Mass 11/10/2010 ANAYELI SYSTEMS ANALYST, DON S 799.22 Irritibility 11/10/2010 NEISHA DDS, KACIE M 611.72 Breast Lump Or Mass 11/10/2010 NEISHA DDS, KACIE M 799.22 Irritibility 11/10/2010 ANAYELI SYSTEMS ANALYST, DON S 611.72 Breast Lump Or Mass 11/10/2010 ANAYELI SYSTEMS ANALYST, DON S 799.22 Irritibility 11/10/2010 ANAYELI SYSTEMS ANALYST, DON S 611.72 Breast Lump Or Mass 11/10/2010 ANAYELI SYSTEMS ANALYST, DON S 799.22 Irritibility 11/10/2010 ANAYELI SYSTEMS ANALYST, DON S 611.72 Breast Lump Or Mass 11/10/2010 ANAYELI SYSTEMS ANALYST, DON S 799.22 Irritibility 11/10/2010 ANAYELI SYSTEMS ANALYST, DON S 611.72 Breast Lump Or Mass 11/10/2010 ANAYELI SYSTEMS ANALYST, DON S 799.22 Irritibility 11/10/2010 EDD DDS, STALIN J 611.72 Breast Lump Or Mass 11/10/2010 WHITE DDS, STALIN J 799.22 Irritibility 11/10/2010 DON GUADALUPE APRN S 611.72 Breast Lump Or Mass 11/10/2010 DON GUADALUPE APRN S 799.22 Irritibility 01/11/2011 Ot 300.00 01/11/2011 Ot 784.0 01/11/2011 Ot 847.0 01/11/2011 Ot 920 01/11/2011 Ot 959.09 01/11/2011 Ot E000.8 01/11/2011 Ot E849.0 01/11/2011 Ot E917.9 03/01/2011 DON GUADALUPE APRN S 719.41 Shoulder Joint Pain 03/01/2011 DON GUADALUPE APRN S 729.5 Arm Pain 03/01/2011 719.41 Shoulder Joint Pain 03/01/2011 729.5 Arm Pain 03/01/2011 SAMANTHA GUADALUPE APRNA S 719.41 Shoulder Joint Pain 03/01/2011 SAMANTHA GUADALUPE APRNA S 729.5 Arm Pain 03/01/2011 SAMANTHA GUADALUPE APRNA S 719.41 Shoulder Joint Pain 03/01/2011 DON GUADALUPE APRN S 729.5 Arm Pain 03/01/2011 719.41 Shoulder Joint Pain 03/01/2011 729.5 Arm Pain 03/01/2011 719.41 Shoulder Joint Pain 03/01/2011 729.5 Arm Pain 03/01/2011 MELISSA DAHL MD 719.41 Shoulder Joint Pain 03/01/2011 MELISSA DAHL MD 729.5 Arm Pain 03/01/2011 SAMANTHA GUADALUPE APRNA S 719.41 Shoulder Joint Pain 03/01/2011 SAMANTHA GUADALUPE APRNA S 729.5 Arm Pain 03/01/2011 KACIE DRIVER DDS 719.41 Shoulder Joint Pain 03/01/2011 NEISHA SANCHEZ, KACIE Fontanez 729.5 Arm Pain 03/01/2011 SAMANTHA GUADALUPE APRNA S 719.41 Shoulder Joint Pain 03/01/2011 DON GUADALUPE APRN S 729.5 Arm Pain 03/01/2011 DOMINIQUE GUADALUPE APRNNDA S 719.41 Shoulder Joint Pain 03/01/2011 SAMANTHA GUADALUPE APRNA S 729.5 Arm Pain 03/01/2011 DOMINIQUE GUADALUPE APRNNDA S 719.41 Shoulder Joint Pain 03/01/2011 DOMINIQUE GUADALUPE APRNNDA S 729.5 Arm Pain 03/01/2011 DOMINIQUE GUADALUPE APRNNDA S 719.41 Shoulder Joint Pain 03/01/2011 ANAYELI BARON, DON S 729.5 Arm Pain 03/01/2011 WHITE DDS, STALIN J 719.41 Shoulder Joint Pain 03/01/2011 WHITE DDS, STALIN J 729.5 Arm Pain 03/01/2011 SAMANTHA GUADALUPE APRNA S 719.41 Shoulder Joint Pain 03/01/2011 DOMINIQUE GUADALUPE APRNNDA S 729.5 Arm Pain 08/09/2011 DON GUADALUPE APRN S 381.81 Eustachian Tube Dysfunction 08/09/2011 SAMANTHA GUADALUPE APRNA S 728.85 MUSCLE SPASM 08/09/2011 SAMANTHA GUADALUPE APRNA S 783.1 Weight Gain Abnormal 08/09/2011 381.81 Eustachian Tube Dysfunction 08/09/2011 728.85 MUSCLE SPASM 08/09/2011 783.1 Weight Gain Abnormal 08/09/2011 SAMANTHA GUADALUPE APRNA S 381.81 Eustachian Tube Dysfunction 08/09/2011 SAMANTHA GUADALUPE APRNA S 728.85 MUSCLE SPASM 08/09/2011 SAMANTHA GUADALUPE APRNA S 783.1 Weight Gain Abnormal 08/09/2011 SAMANTHA GUADALUPE APRNA S 381.81 Eustachian Tube Dysfunction 08/09/2011 SAMANTHA GUADALUPE APRNA S 728.85 MUSCLE SPASM 08/09/2011 SAMANTHA GUADALUPE APRNA S 783.1 Weight Gain Abnormal 08/09/2011 381.81 [...] S 783.1 Weight Gain Abnormal 08/09/2011 NEISHA NEGRONS, KACIE M 381.81 Eustachian Tube Dysfunction 08/09/2011 NEISHA NEGRONS, KACIE M 728.85 MUSCLE SPASM 08/09/2011 NEISHA NEGRONS, KACIE M 783.1 Weight Gain Abnormal 08/09/2011 ANAYELI BARON, DON S 381.81 Eustachian Tube Dysfunction 08/09/2011 ANAYELI BARON, DON S 728.85 MUSCLE SPASM 08/09/2011 ANAYELI BARON, DON S 783.1 Weight Gain Abnormal 08/09/2011 ANAYELI BARON, DON S 381.81 Eustachian Tube Dysfunction 08/09/2011 ANAYELI BARON, DON S 728.85 MUSCLE SPASM 08/09/2011 ANAYELI BARON, DON S 783.1 Weight Gain Abnormal 08/09/2011 ANYAELI BARON, DON S 381.81 Eustachian Tube Dysfunction 08/09/2011 ANAYELI BARON, DON S 728.85 MUSCLE SPASM 08/09/2011 ANAYELI BARON, DON S 783.1 Weight Gain Abnormal 08/09/2011 ANAYELI BARON, DON S 381.81 Eustachian Tube Dysfunction 08/09/2011 ANAYELI BARON, DON S 728.85 MUSCLE SPASM 08/09/2011 ANAYELI BARON, DON S 783.1 Weight Gain Abnormal 08/09/2011 EDD DDS, STALIN Gordon 381.81 Eustachian Tube Dysfunction 08/09/2011 WHITE DDS, STALIN J 728.85 MUSCLE SPASM 08/09/2011 WHITE DDS, STALIN J 783.1 Weight Gain Abnormal 08/09/2011 SAMANTHA GUADALUPE APRNA S 381.81 Eustachian Tube Dysfunction 08/09/2011 DOMINIQUE [...] V76.2 Cervical Cancer Screening (pap Smear) 11/02/2011 EDD SANCHEZ, STALIN Gordon V76.2 Cervical Cancer Screening (pap Smear) 11/02/2011 [...] 01/18/2012 724.2 lower back pain 01/18/2012 ANAYELI SYSTEMS ANALYST, DON S 724.2 lower back pain 01/18/2012 ANAYELI SYSTEMS ANALYST, DON S 724.2 lower back pain 01/18/2012 724.2 lower back pain 01/18/2012 724.2 lower back pain 01/18/2012 MELISSA DAHL MD 724.2 lower back pain 01/18/2012 ANAYELI BARON, DON S 724.2 lower back pain 01/18/2012 KACIE DRIVER DDS 724.2 lower back pain 01/18/2012 ANAYELI SYSTEMS ANALYST, DON S 724.2 lower back pain 01/18/2012 ANAYELI BARON, DON S 724.2 lower back pain 01/18/2012 ANAYELI BARON, DON S 724.2 lower back pain 01/18/2012 ANAYELI BARON, DON S 724.2 lower back pain 01/18/2012 STALIN PUGA DDS 724.2 lower back pain 01/18/2012 ANAYELI BARON, DON S 724.2 lower back pain 02/01/2012 DOMINIQUE GUADALUPE APRNNDA S V58.69 high risk medication 02/01/2012 V58.69 [...] DON S V58.69 high risk medication 02/01/2012 DON GUADALUPE APRN S V58.69 high risk medication 02/01/2012 DON GUADALUPE APRN S V58.69 high risk medication 02/01/2012 DON GUADALUPE APRN S V58.69 high risk medication 02/01/2012 WHITE DDS, STALIN J V58.69 high risk medication 02/01/2012 SAMANTHA GUADALUPE APRNA S V58.69 high risk medication 05/28/2012 DON [...] (3 Yrs And Above, Im) 05/28/2012 NEISHA NEGRONS, KACIE M V18.0 FAMILY HISTORY OF DIABETES [...] (3 Yrs And Above, Im) 05/28/2012 ANAYELI SYSTEMS ANALYST, DON S V18.0 FAMILY HISTORY OF DIABETES MELLITUS 05/28/2012 WHITE DDS, STALIN J 296.30 MAJOR DEPRESSIVE AFFECTIVE DISORDER RECURRENT EPISODE UNSPECIFIED DEGREE 05/28/2012 WHITE DDS, STALIN J V04.81 Flu Dx (3 Yrs And Above, Im) 05/28/2012 WHITE DDS, STALIN J V18.0 FAMILY HISTORY OF DIABETES MELLITUS 05/28/2012 ANAYELI SYSTEMS ANALYST, DON S 296.30 MAJOR DEPRESSIVE AFFECTIVE DISORDER RECURRENT EPISODE UNSPECIFIED DEGREE 05/28/2012 ANAYELI SYSTEMS ANALYST, DON S V04.81 Flu Dx (3 Yrs And Above, Im) 05/28/2012 ANAYELI SYSTEMS ANALYST, DON S V18.0 FAMILY HISTORY OF DIABETES MELLITUS 06/05/2012 ANAYELI SYSTEMS ANALYST, DON S 999.52 Other Serum Reaction Due To Vaccination 06/05/2012 999.52 Other Serum Reaction Due To Vaccination 06/05/2012 ANAYELI SYSTEMS ANALYST, DON S 999.52 Other Serum Reaction Due To Vaccination 06/05/2012 ANAYELI SYSTEMS ANALYST, DON S 999.52 Other Serum Reaction Due To Vaccination 06/05/2012 999.52 Other Serum Reaction Due To Vaccination 06/05/2012 999.52 Other Serum Reaction Due To Vaccination 06/05/2012 NABILA MARSHALL, MELISSA 999.52 Other Serum Reaction Due To Vaccination 06/05/2012 ANAYELI SYSTEMS ANALYST, DON S 999.52 Other Serum Reaction Due To Vaccination 06/05/2012 NEISHA NEGRONS, KACIE Fontanez 999.52 Other Serum Reaction Due To Vaccination 06/05/2012 ANAYELI SYSTEMS ANALYST, DON S 999.52 Other Serum Reaction Due To Vaccination 06/05/2012 ANAYELI SYSTEMS ANALYST, DON S 999.52 Other Serum Reaction Due To Vaccination 06/05/2012 ANAYELI SYSTEMS ANALYST, DON S 999.52 Other Serum Reaction Due To Vaccination 06/05/2012 ANAYELI SYSTEMS ANALYST, DON S 999.52 Other Serum Reaction Due To Vaccination 06/05/2012 WHITE DDS, STALIN J 999.52 Other Serum Reaction Due To Vaccination 06/05/2012 ANAYELI SYSTEMS ANALYST, DON S 999.52 Other Serum Reaction Due To Vaccination 06/27/2012 ANAYELI SYSTEMS ANALYST, DON S 719.47 PAIN IN JOINT INVOLVING [...] 07/25/2012 729.5 PAIN IN LIMB 07/25/2012 ANAYELI SYSTEMS ANALYST, DON S 729.5 PAIN IN LIMB 07/25/2012 ANAYELI SYSTEMS ANALYST, DON S 729.5 PAIN IN LIMB 07/25/2012 729.5 PAIN IN LIMB 07/25/2012 729.5 PAIN IN LIMB 07/25/2012 MELISSA DAHL MD 729.5 PAIN IN LIMB 07/25/2012 ANAYELI PATN, DON S 729.5 PAIN IN LIMB 07/25/2012 KACIE DRIVER DDS 729.5 PAIN IN LIMB 07/25/2012 ANAYELI SYSTEMS ANALYST, DON S 729.5 PAIN IN LIMB 07/25/2012 ANAYELI SYSTEMS ANALYST, DON S 729.5 PAIN IN LIMB 07/25/2012 ANAYELI SYSTEMS ANALYST, DON S 729.5 PAIN IN LIMB 07/25/2012 ANAYELI SYSTEMS ANALYST, DON S 729.5 PAIN IN LIMB 07/25/2012 EDD SANCHEZ, STALIN Gordon 729.5 PAIN IN LIMB 09/17/2012 783.1 ABNORMAL WEIGHT GAIN 09/17/2012 ANAYELI SYSTEMS ANALYST, DON S 783.1 ABNORMAL WEIGHT GAIN 09/17/2012 ANAYELI SYSTEMS ANALYST, DON S 783.1 ABNORMAL WEIGHT GAIN 09/17/2012 783.1 ABNORMAL WEIGHT GAIN 09/17/2012 783.1 ABNORMAL WEIGHT GAIN 09/17/2012 MELISSA DAHL MD 783.1 ABNORMAL WEIGHT GAIN 09/17/2012 ANAYELI BARON, DON S 783.1 ABNORMAL WEIGHT GAIN 09/17/2012 KACIE DRIVER DDS 783.1 ABNORMAL WEIGHT GAIN 09/17/2012 ANAYELI SYSTEMS ANALYST, DON S 783.1 ABNORMAL WEIGHT GAIN 09/17/2012 ANAYELI SYSTEMS ANALYST, DON S 783.1 ABNORMAL WEIGHT GAIN 09/17/2012 ANAYELI SYSTEMS ANALYST, DON S 783.1 ABNORMAL WEIGHT GAIN 09/17/2012 ANAYELI BARON, DON S 783.1 ABNORMAL WEIGHT GAIN 09/17/2012 STALIN PUGA DDS 783.1 ABNORMAL WEIGHT GAIN 10/30/2012 ANAYELI BARON, DON S V16.3 FAM HX CANCER, BREAST 10/30/2012 V16.3 FAM HX CANCER, BREAST 10/30/2012 V16.3 FAM HX CANCER, BREAST 10/30/2012 MELISSA DAHL MD V16.3 FAM HX CANCER, BREAST 10/30/2012 ANAYELI BARON, DON S V16.3 FAM HX CANCER, BREAST 10/30/2012 KACIE DRIVER DDS V16.3 FAM HX CANCER, BREAST 10/30/2012 ANAYELI BARON DON S V16.3 FAM HX CANCER, BREAST 10/30/2012 ANAYELI BARNO DON S V16.3 FAM HX CANCER, BREAST 10/30/2012 DOMINIQUE GUADALUPE APRNNDA S V16.3 FAM HX CANCER, BREAST 10/30/2012 ANAYELI BARON DON S V16.3 FAM HX CANCER, BREAST 10/30/2012 WHITE DANIEL, STALIN Gordon V16.3 FAM HX CANCER, BREAST 02/19/2013 296.33 [...] WITH DEPRESSED MOOD 02/19/2013 KACIE DRIVER DDS M 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 [...] LUMBOSACRAL NEURITIS OR RADICULITIS UNSPECIFIED 02/22/2013 ANAYELI BARON DON S 599.70 HEMATURIA 02/22/2013 ANAYELI BARON, DON S 724.4 THORACIC OR LUMBOSACRAL NEURITIS OR RADICULITIS UNSPECIFIED 02/22/2013 KACIE DRIVER DDS 599.70 HEMATURIA 02/22/2013 KACIE DRIVER DDS 724.4 THORACIC OR LUMBOSACRAL NEURITIS OR RADICULITIS UNSPECIFIED 02/22/2013 ANAYELI SYSTEMS ANALYST, DON S 599.70 HEMATURIA 02/22/2013 ANAYELI SYSTEMS ANALYST, DON S 724.4 THORACIC OR LUMBOSACRAL NEURITIS OR RADICULITIS UNSPECIFIED 02/22/2013 ANAYELI SYSTEMS ANALYST, DON S 599.70 HEMATURIA 02/22/2013 ANAYELI SYSTEMS ANALYST, DON S 724.4 THORACIC OR LUMBOSACRAL NEURITIS OR RADICULITIS UNSPECIFIED 02/22/2013 ANAYELI SYSTEMS ANALYST, DON S 599.70 HEMATURIA 02/22/2013 ANAYELI SYSTEMS ANALYST, DON S 724.4 THORACIC OR LUMBOSACRAL NEURITIS OR RADICULITIS UNSPECIFIED 02/22/2013 ANAYELI SYSTEMS ANALYST, DON S 599.70 HEMATURIA 02/22/2013 ANAYELI SYSTEMS ANALYST, DON S 724.4 THORACIC OR LUMBOSACRAL NEURITIS OR RADICULITIS UNSPECIFIED 02/22/2013 STALIN PUGA DDS 599.70 HEMATURIA 02/22/2013 STALIN PUGA DDS 724.4 THORACIC OR LUMBOSACRAL NEURITIS OR RADICULITIS UNSPECIFIED 04/01/2013 NERIS BOSS SYSTEMS ANALYST Ot 338.29 OTHER CHRONIC PAIN 04/01/2013 NERIS BOSS SYSTEMS ANALYST Ot 724.5 BACKACHE NOS 04/03/2013 724.5 BACKACHE UNSPECIFIED 04/03/2013 MELISSA DAHL MD 724.5 BACKACHE UNSPECIFIED 04/03/2013 ANAYELI PATN, DON S 724.5 BACKACHE UNSPECIFIED 04/03/2013 KACIE DRIVER DDS 724.5 BACKACHE UNSPECIFIED 04/03/2013 ANAYELI SYSTEMS ANALYST, DON S 724.5 BACKACHE UNSPECIFIED 04/03/2013 ANAYELI BARON, DON S 724.5 BACKACHE UNSPECIFIED 04/03/2013 ANAYELI SYSTEMS ANALYST, DON S 724.5 BACKACHE UNSPECIFIED 04/03/2013 ANAYELI BARON, DON S 724.5 BACKACHE UNSPECIFIED 04/03/2013 STALIN PUGA DDS 724.5 BACKACHE UNSPECIFIED 06/18/2013 DON GUADALUPE BUSINESS SYSTEMS ARCHITECT Ot 724.4 LUMBOSACRAL NEURITIS NOS 06/18/2013 DON GUADALUPE BUSINESS SYSTEMS ARCHITECT Ot V57.1 PHYSICAL THERAPY NEC 09/18/2013 ANAYELI BARON, DON S 272.4 HYPERLIPIDEMIA 09/18/2013 ANAYELI BARON, DON S 719.41 PAIN- SHOULDER 09/18/2013 ANAYELI BARON, DON S 780.79 fatigue 09/18/2013 ANAYELI BARON, DON S 784.0 HEADACHE 09/18/2013 ANAYELI SYSTEMS ANALYST, DON S 787.91 DIARRHEA 09/18/2013 ANAYELI SYSTEMS ANALYST, DON S 272.4 HYPERLIPIDEMIA 09/18/2013 ANAYELI BARON, DON S 719.41 PAIN- SHOULDER 09/18/2013 ANAYELI SYSTEMS ANALYST, DON S 780.79 fatigue 09/18/2013 ANAYELI SYSTEMS ANALYST, DON S 784.0 HEADACHE 09/18/2013 ANAYELI BARON, [...] 06/26/2014 DON GUADALUPE Ot V76.12 06/26/2014 SUHAS HERNANDEZ MD Ot 788.1 06/26/2014 SUHAS HERNANDEZ MD Ot 788.41 06/28/2014 SUHAS HERNANDEZ MD Ot 784.0 07/10/2014 SUHAS HERNANDEZ MD Ot 784.0 09/01/2014 Ot 727.61 09/01/2014 [...] 09/01/2014 DON GUADALUPE Ot V76.12 09/01/2014 SUHAS HERNANDEZ MD Ot 788.1 09/01/2014 SUHAS HERNANDEZ MD Ot 788.41 09/01/2014 SUHAS HERNANDEZ MD Ot 784.0 09/01/2014 YISSEL MARSHALL, CINDY Gordon Ot 278.00 09/01/2014 YISSEL MARSHALL, CINDY Gordon Ot 305.1 09/01/2014 YISSEL MARSHALL, CINDY Gordon [...] 09/02/2014 DON GUADALUPE Ot V76.12 09/02/2014 SUHAS HERNANDEZ MD Ot 788.1 09/02/2014 SUHAS HERNANDEZ MD Ot 788.41 09/02/2014 SUHAS HERNANDEZ MD Ot 784.0 09/02/2014 CINDY DEY MD Ot 278.00 09/02/2014 YISSEL MARSHALL, CINDY Gordon Ot 305.1 09/02/2014 CINDY DEY MD Ot 780.79 09/02/2014 CINDY DEY MD Ot 786.50 09/11/2014 YISSEL MARSHALL, CINDY Gordon Ot 278.00 09/11/2014 YISSEL MARSHALL, CINDY Gordon Ot 305.1 09/11/2014 CINDY DYE MD Ot 780.79 09/11/2014 CINDY DEY MD Ot 786.50 09/17/2014 YISSEL MARSHALL, CINDY Gordon Ot 278.00 09/17/2014 YISSEL MARSHALL, CINDY Gordon Ot 305.1 09/17/2014 CINDY DEY MD Ot [...] 03/03/2015 DON GUADALUPE Ot V76.12 03/03/2015 SUHAS HERNANDEZ MD Ot 788.1 03/03/2015 SUHAS HERNANDEZ MD Ot 788.41 03/03/2015 SUHAS HERNANDEZ MD Ot 784.0 03/03/2015 YISSEL MARSHALL, CINDY Gordon Ot 278.00 03/03/2015 YISSEL MARSHALL, CINDY Gordon Ot 305.1 03/03/2015 YISSEL MARSHALL, CINDY Gordon Ot 780.79 03/03/2015 YISSEL MARSHALL, CINDY Gorodn Ot 786.50 03/03/2015 YISSEL MARSHALL, CINDY Gordon [...] MD Ot 592.9 04/14/2015 DHEERAJ MARSHALL, FIGUEROA N Ot 724.2 04/14/2015 KALPANA JACINTO MD Ot [...] V45.4 08/17/2015 DON GUADALUPE Ot V76.12 08/17/2015 DAVID MARSHALL, SUHAS Lorenz Ot 788.1 08/17/2015 SUHAS HERNANDEZ MD Ot 788.41 08/17/2015 SUHAS HERNANDEZ MD Ot 784.0 08/17/2015 YISSEL MARSHALL, CINDY Gordon Ot 278.00 08/17/2015 YISSEL MARSHALL, CINDY J Ot 305.1 08/17/2015 YISSEL MARSHALL, CINDY J Ot 780.79 08/17/2015 YISSEL MARSHALL, BASDEZ J Ot 786.50 08/17/2015 YISSEL MARSHALL, BASDEZ J Ot 278.00 08/17/2015 YISSEL MARSHALL, CINDY J Ot 305.1 08/17/2015 YISSEL MARSHALL, BASHAR J Ot 780.79 08/17/2015 YISSEL MARSHALL, BASHAR J Ot 786.50 08/17/2015 YISSEL MARSHALL, BASHAR J Ot 278.00 08/17/2015 YISSEL MARSHALL, CINDY Gordon Ot 305.1 08/17/2015 YISSEL MARSHALL, CINDY Gordon Ot 780.79 08/17/2015 YISSEL MARSHALL, AXELHAR J Ot 786.50 08/17/2015 DHEERAJ MARSHALL, FIGUEROA N Ot 724.2 08/17/2015 OPHELIA MARSHALL, KALPANA Nassar [...] 10/13/2015 WING HUNTER DO Ot N94.9 10/13/2015 JORGE HUNTER DOA C Ot R10.11 10/13/2015 HUNTER DO, WING C Ot D07.1 10/13/2015 HUNTER DO, WING C Ot R10.2 10/13/2015 HUNTER DO, WING C Ot Z01.812 10/13/2015 HUNTER DO, WING C Ot Z11.2 10/30/2015 HUNTER DO, WING C Ot D07.1 10/30/2015 HUNTER DO, WING C Ot N73.6 10/30/2015 HUNTER DO, WING C Ot R10.2 11/13/2015 DAVID MARSHALL, SUHAS Lorenz Ot R00.2 11/13/2015 SUHAS HERNANDEZ MD Ot R35.8 11/13/2015 SUHAS HERNANDEZ MD Ot R53.83 11/13/2015 SUHSA HERNANDEZ MD Ot R63.1 11/13/2015 SUHAS HERNANDEZ MD Ot R63.2 11/13/2015 SUHSA HERNANDEZ MD Ot R63.5 11/13/2015 SUHAS HERNANDEZ MD Ot R73.9 11/25/2015 SUHAS HERNANDEZ MD Ot R00.2 PALPITATIONS 11/25/2015 SUHAS HERNANDEZ MD Ot R35.8 OTHER POLYURIA 11/25/2015 SUHAS HERNANDEZ MD Ot R53.83 OTHER FATIGUE 11/25/2015 SUHAS HERNANDEZ MD Ot R63.1 POLYDIPSIA 11/25/2015 SUHAS HERNANDEZ MD Ot R63.2 POLYPHAGIA 11/25/2015 SUHAS HERNANDEZ MD Ot R63.5 ABNORMAL WEIGHT GAIN 11/25/2015 SUHAS HERNANDEZ MD Ot R73.9 HYPERGLYCEMIA, UNSPECIFIED 01/09/2016 SUHAS HERNANDEZ MD Ot S93.401A SPRAIN OF UNSPECIFIED LIGAMENT OF RIGHT 01/09/2016 SUHAS HERNANDEZ MD Ot X58.XXXA EXPOSURE TO OTHER SPECIFIED FACTORS, INI 01/09/2016 SUHAS HERNANDEZ MD Ot Y99.8 OTHER EXTERNAL CAUSE STATUS 01/13/2016 SUHAS HERNANDEZ MD Ot S93.401A SPRAIN OF UNSPECIFIED LIGAMENT OF RIGHT 01/13/2016 SUHAS HERNANDEZ MD Ot X58.XXXA EXPOSURE TO OTHER SPECIFIED FACTORS, INI 01/13/2016 SUHAS HERNANDEZ MD Ot Y99.8 OTHER EXTERNAL CAUSE STATUS 01/20/2016 JERO DAMON Ot E78.2 MIXED HYPERLIPIDEMIA 01/21/2016 SUHAS HERNANDEZ MD Ot S93.401A SPRAIN OF UNSPECIFIED LIGAMENT OF RIGHT 01/21/2016 SUHAS HERNANDEZ MD Ot X58.XXXA EXPOSURE TO OTHER SPECIFIED FACTORS, INI 01/21/2016 SUHAS HERNANDEZ MD Ot Y99.8 OTHER EXTERNAL CAUSE STATUS [...] AND MYOSITIS NOS 07/15/2016 Ot V16.3 FAMILY HX-BREAST MALIG 07/15/2016 Ot V58.69 OTH MED,LT,CURRENT USE 07/15/2016 Ot 611.72 LUMP OR MASS IN BREAST 07/15/2016 Ot 724.2 LUMBAGO 07/15/2016 Ot V45.4 ARTHRODESIS STATUS 07/15/2016 DON GUADALUPE Ot V76.12 OTH SCREEN MAMMO-MALIGN NEOPLASM OF LAURO 07/15/2016 SUHAS HERNANDEZ MD Ot 788.1 DYSURIA 07/15/2016 SUHAS HERNANDEZ MD Ot 788.41 URINARY FREQUENCY 07/15/2016 SUHAS HERNANDEZ MD Ot 784.0 HEADACHE 07/15/2016 CINDY DEY [...] COND 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 07/15/2016 HUNTERWING Diaz DO Ot R10.11 RIGHT UPPER QUADRANT PAIN 07/15/2016 DALE PEREZWING Ot 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 07/15/2016 HUNTERWING Diaz DO Ot R10.2 PELVIC AND PERINEAL PAIN 07/15/2016 HUNTERWING Diaz DO Ot Z01.812 ENCOUNTER FOR PREPROCEDURAL LABORATORY E 07/15/2016 WING HUNTER DO Ot Z11.2 ENCOUNTER FOR SCREENING FOR OTHER BACTER 07/15/2016 SUHAS HERNANDEZ MD Ot R00.2 PALPITATIONS 07/15/2016 SUHAS HERNANDEZ MD Ot R35.8 OTHER POLYURIA 07/15/2016 SUHAS HERNANDEZ MD Ot R53.83 OTHER FATIGUE 07/15/2016 SUHAS HERNANDEZ MD Ot R63.1 POLYDIPSIA 07/15/2016 SUHAS HERNANDEZ MD Ot R63.2 POLYPHAGIA 07/15/2016 SUHAS HERNANDEZ MD Ot R63.5 ABNORMAL WEIGHT GAIN 07/15/2016 SUHAS HERNANDEZ MD Ot R73.9 HYPERGLYCEMIA, UNSPECIFIED 07/15/2016 SUHAS HERNANDEZ MD Ot S93.401A SPRAIN OF UNSPECIFIED LIGAMENT OF RIGHT 07/15/2016 SUHAS HERNANDEZ MD Ot X58.XXXA EXPOSURE TO OTHER SPECIFIED FACTORS, INI 07/15/2016 SUHAS HERNANDEZ MD Ot Y99.8 OTHER EXTERNAL CAUSE STATUS [...] SCREEN MAMMOGRAM FOR MALIGNANT NE 12/16/2016 SUHAS HERNANDEZ MD Ot R10.31 RIGHT LOWER QUADRANT PAIN 12/21/2016 SUHAS HERNANDEZ MD Ot R10.31 RIGHT LOWER QUADRANT PAIN 12/30/2016 SUHAS HERNANDEZ MD Ot R10.31 RIGHT LOWER QUADRANT PAIN 01/16/2017 ROSALIE BELLO DO Ot R19.5 OTHER FECAL ABNORMALITIES 01/16/2017 ROSALIE BELLO DO Ot Z01.818 ENCOUNTER FOR OTHER PREPROCEDURAL EXAMIN 01/18/2017 Ot 272.0 PURE HYPERCHOLESTEROLEM 01/18/2017 Ot 300.4 DYSTHYMIC DISORDER 01/18/2017 Ot 729.1 MYALGIA AND MYOSITIS NOS 01/18/2017 Ot V16.3 FAMILY HX-BREAST MALIG 01/18/2017 Ot V58.69 OTH MED,LT,CURRENT USE 01/18/2017 Ot 611.72 LUMP OR MASS IN BREAST 01/18/2017 Ot 724.2 LUMBAGO 01/18/2017 Ot V45.4 ARTHRODESIS STATUS 01/18/2017 DON GUADALUPE Ot V76.12 OTH SCREEN MAMMO-MALIGN NEOPLASM OF LAURO 01/18/2017 SUHAS HERNANDEZ MD Ot 788.1 DYSURIA 01/18/2017 SUHAS HERNANDEZ MD Ot 788.41 URINARY FREQUENCY 01/18/2017 DAVID MARSHALL, SUHAS Lorenz Ot 784.0 HEADACHE 01/18/2017 CINDY DEY MD [...] FOR SCREENING FOR OTHER BACTER 01/18/2017 SUHAS HERNANDEZ MD Ot R00.2 PALPITATIONS 01/18/2017 SUHAS HERNANDEZ MD Ot R35.8 OTHER POLYURIA 01/18/2017 SUHAS HERNANDEZ MD Ot R53.83 OTHER FATIGUE 01/18/2017 SUHAS HERNANDEZ MD Ot R63.1 POLYDIPSIA 01/18/2017 SUHAS HERNANDEZ MD Ot R63.2 POLYPHAGIA 01/18/2017 SUHAS HERNANDEZ MD Ot R63.5 ABNORMAL WEIGHT GAIN 01/18/2017 SUHAS HERNANDEZ MD Ot R73.9 HYPERGLYCEMIA, UNSPECIFIED 01/18/2017 SUHAS HERNANDEZ MD Ot S93.401A SPRAIN OF UNSPECIFIED LIGAMENT OF RIGHT 01/18/2017 SUHAS HERNANDEZ MD Ot X58.XXXA EXPOSURE TO OTHER SPECIFIED FACTORS, INI 01/18/2017 SUHAS HERNANDEZ MD Ot Y99.8 OTHER EXTERNAL CAUSE STATUS [...] SCREEN MAMMOGRAM FOR MALIGNANT NE 01/18/2017 SUHAS HERNANDEZ MD Ot R10.31 RIGHT LOWER QUADRANT PAIN 01/18/2017 ROSALIE BELLO DO Ot D12.3 BENIGN NEOPLASM OF TRANSVERSE COLON 01/18/2017 ROSALIE BELLO DO Ot E66.9 OBESITY, UNSPECIFIED 01/18/2017 ROSALIE BELLO DO Ot E78.5 HYPERLIPIDEMIA, UNSPECIFIED 01/18/2017 ROSALIE BELLO DO Ot F17.210 NICOTINE DEPENDENCE, CIGARETTES, UNCOMPL 01/18/2017 DELMAN DO, ROSALIE B Ot F41.9 ANXIETY DISORDER, UNSPECIFIED 01/18/2017 DARION BELLO DOIC B Ot K21.9 GASTRO-ESOPHAGEAL REFLUX DISEASE WITHOUT 01/18/2017 ACE PEREZ ROSALIE B Ot K29.70 GASTRITIS, UNSPECIFIED, WITHOUT BLEEDING 01/18/2017 ACE DO, ROSALIE B Ot K29.80 DUODENITIS WITHOUT BLEEDING 01/18/2017 ACE PEREZ ROSALIE B Ot K57.3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 01/18/2017 ACE DARIONIC B Ot K63.5 POLYP OF COLON 01/18/2017 ACE DARIONIC B Ot K64.8 OTHER HEMORRHOIDS 01/18/2017 ACE ROSALIE B Ot Z68.29 BODY MASS INDEX (BMI) 29.0-29.9, ADULT 01/18/2017 ACE DARIONIC B Ot Z79.899 OTHER [employer] (CURRENT) DRUG THERAPY 01/20/2017 ROSALIE BELLO DO B Ot E66.9 OBESITY, UNSPECIFIED 01/20/2017 NATANPATTI DO ROSALIE B Ot E78.5 HYPERLIPIDEMIA, UNSPECIFIED 01/20/2017 ACE DO ROSALIE B Ot F17.210 NICOTINE DEPENDENCE, CIGARETTES, UNCOMPL 01/20/2017 ACE DARIONIC B Ot K21.9 GASTRO-ESOPHAGEAL REFLUX DISEASE WITHOUT 01/20/2017 ACE ROSALIE B Ot K29.70 GASTRITIS, UNSPECIFIED, WITHOUT BLEEDING 01/20/2017 ACE ROSALIE B Ot K29.80 DUODENITIS WITHOUT BLEEDING 01/20/2017 ACE DARIONIC B Ot K57.3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 01/20/2017 ACE DO ROSALIE B Ot K63.5 POLYP OF COLON 01/20/2017 NATANPATTI PEREZ ROSALIE B Ot K64.8 OTHER HEMORRHOIDS 01/20/2017 DARION BELLO DOIC B Ot Z68.29 BODY MASS INDEX (BMI) 29.0-29.9, ADULT 01/20/2017 NATANPATTI PEREZ ROSALIE B Ot Z79.899 OTHER [facility] (CURRENT) DRUG THERAPY 04/14/2017 Ot 272.0 PURE HYPERCHOLESTEROLEM 04/14/2017 Ot 300.4 DYSTHYMIC DISORDER 04/14/2017 Ot 729.1 MYALGIA AND MYOSITIS NOS 04/14/2017 Ot V16.3 FAMILY HX-BREAST MALIG 04/14/2017 Ot V58.69 OTH MED,LT,CURRENT USE 04/14/2017 Ot 611.72 LUMP OR MASS IN BREAST 04/14/2017 Ot 724.2 LUMBAGO 04/14/2017 Ot V45.4 ARTHRODESIS STATUS 04/14/2017 DON GUADALUPE Ot V76.12 OTH SCREEN MAMMO-MALIGN NEOPLASM OF LAURO 04/14/2017 SUHAS HERNANDEZ MD Ot 788.1 DYSURIA 04/14/2017 SUHAS HERNANDEZ MD Ot 788.41 URINARY FREQUENCY 04/14/2017 SUHAS HERNANDEZ MD Ot 784.0 HEADACHE 04/14/2017 CINDY DEY [...] MARSHALL, FIGUEROA Craig Ot 724.2 LUMBAGO 04/14/2017 OPHELIA MARSHALL, KALPNAA Nassar Ot 592.9 URINARY CALCULUS NOS 04/14/2017 KALPANA JACINTO MD Ot 592.0 CALCULUS OF KIDNEY 04/14/2017 Ot S60.456A SUPERFICIAL FOREIGN BODY OF RIGHT LITTLE 04/14/2017 Ot Z12.31 ENCNTR SCREEN MAMMOGRAM FOR MALIGNANT NE 04/14/2017 JERO DAMON Ot E78.2 MIXED HYPERLIPIDEMIA 04/14/2017 WING HUNTER DO Ot N94.9 UNSP COND 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 04/14/2017 WING HUNTER DO Ot R10.11 RIGHT UPPER QUADRANT PAIN 04/14/2017 WING HUNTER DO Ot 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 04/14/2017 WING HUNTER DO Ot R10.2 PELVIC AND PERINEAL PAIN 04/14/2017 WING HUNTER DO Ot Z01.812 ENCOUNTER FOR PREPROCEDURAL LABORATORY E 04/14/2017 WING HUNTER DO Ot Z11.2 ENCOUNTER FOR SCREENING FOR OTHER BACTER 04/14/2017 SUHAS HERNANDEZ MD Ot R00.2 PALPITATIONS 04/14/2017 SUHAS HERNANDEZ MD Ot R35.8 OTHER POLYURIA 04/14/2017 SUHAS HERNANDEZ MD Ot R53.83 OTHER FATIGUE 04/14/2017 SUHAS HERNANDEZ MD Ot R63.1 POLYDIPSIA 04/14/2017 SUHAS HERNANDEZ MD Ot R63.2 POLYPHAGIA 04/14/2017 SUHAS HERNANDEZ MD Ot R63.5 ABNORMAL WEIGHT GAIN 04/14/2017 SUHAS HERNANDEZ MD Ot R73.9 HYPERGLYCEMIA, UNSPECIFIED 04/14/2017 SUHAS HERNANDEZ MD Ot S93.401A SPRAIN OF UNSPECIFIED LIGAMENT OF RIGHT 04/14/2017 SUHAS HERNANDEZ MD Ot X58.XXXA EXPOSURE TO OTHER SPECIFIED FACTORS, INI 04/14/2017 SUHAS HERNANDEZ MD Ot Y99.8 OTHER EXTERNAL CAUSE STATUS 04/14/2017 CINDY DEY MD Ot E78.2 MIXED HYPERLIPIDEMIA 04/14/2017 CINDY DEY MD Ot F41.8 OTHER SPECIFIED ANXIETY DISORDERS 04/14/2017 CINDY DEY MD Ot R06.89 OTHER ABNORMALITIES OF BREATHING 04/14/2017 CINDY DEY MD Ot R07.9 CHEST PAIN, UNSPECIFIED 04/14/2017 JERO DAMON Ot E78.2 MIXED HYPERLIPIDEMIA 04/14/2017 WING HUNTER DO Ot R10.11 RIGHT UPPER QUADRANT PAIN 04/14/2017 TAMIEJOAN Micheline HENDRICKSON Ot Z12.31 ENCNTR SCREEN MAMMOGRAM FOR MALIGNANT [...] Ot M19.90 UNSPECIFIED OSTEOARTHRITIS, UNSPECIFIED 06/10/2017 MAYELIN ARAGNO Ot R06.02 SHORTNESS OF BREATH 06/10/2017 MAYELIN [...] O 04/23/2018 NERIS BOSS APRN Ot Z79.51 [employer] (CURRENT) USE OF INHALED STERO 04/23/2018 NERIS BOSS APRN Ot Z79.52 [facility] (CURRENT) USE OF SYSTEMIC STER 04/23/2018 NERIS BOSS APRN Ot Z80.3 FAMILY HISTORY OF MALIGNANT NEOPLASM OF 04/23/2018 NERIS BOSS APRN Ot Z82.49 FAMILY HX OF ISCHEM HEART DIS AND OTH DI 04/23/2018 NERIS BOSS APRN Ot Z86.19 PERSONAL HISTORY OF OTHER INFECTIOUS AND 04/23/2018 NERIS BOSS APRN Ot Z87.19 PERSONAL HISTORY [...] APRN Ot F31.9 BIPOLAR DISORDER, UNSPECIFIED 04/25/2018 NERIS BOSS APRN Ot F41.9 ANXIETY DISORDER, [...] O 04/25/2018 NERIS BOSS APRN Ot Z79.51 [employer] (CURRENT) USE OF INHALED STERO 04/25/2018 NERIS BOSS APRN Ot Z79.52 [facility] (CURRENT) USE OF SYSTEMIC STER 04/25/2018 NERIS [...] Z88.8 ALLERGY STATUS TO OT DRUG/MEDS/BIOL SUB 04/25/2018 NERIS BOSS APRN Ot Z90.710 ACQUIRED ABSENCE OF BOTH CERVIX AND UTER 04/25/2018 NERIS BOSS APRN Ot Z90.89 ACQUIRED ABSENCE OF OTHER ORGANS 05/17/2018 WING HUNTER DO Ot Z01.818 ENCOUNTER FOR OTHER PREPROCEDURAL EXAMIN 05/18/2018 WING HUNTER DO Ot Z01.818 ENCOUNTER FOR OTHER PREPROCEDURAL EXAMIN 06/15/2018 WING HUNTER DO Ot F17.210 NICOTINE DEPENDENCE, CIGARETTES, UNCOMPL 06/15/2018 WING HUNTER DO Ot I49.9 CARDIAC ARRHYTHMIA, UNSPECIFIED 06/15/2018 WING HUNTER DO Ot K21.9 GASTRO-ESOPHAGEAL REFLUX DISEASE WITHOUT 06/15/2018 WING HUNTER DO Ot L72.0 EPIDERMAL CYST 06/15/2018 WING HUNTER DO Ot N90.89 OT NONINFLAMMATORY DISORDERS OF VULVA A 06/15/2018 WING HUNTER DO Ot Z79.899 OTHER [facility] (CURRENT) DRUG THERAPY 07/02/2018 RK MARQUEZ MD Ot M25.812 OTHER SPECIFIED JOINT DISORDERS, LEFT SH 07/11/2018 RK MARQUEZ MD G Ot M25.812 OTHER SPECIFIED JOINT DISORDERS, LEFT SH 07/27/2018 NICKIE MARSHALL, RK Sorenson Ot M25.812 OTHER SPECIFIED JOINT DISORDERS, LEFT SH 08/09/2018 NICKIE MARSHALL, RK Sorenson Ot M25.812 OTHER SPECIFIED JOINT DISORDERS, LEFT SH 09/14/2018 NICKIE MARSHALL, RK Sorenson Ot S46.012D STRAIN OF MUSC/TEND THE ROTATOR CUFF OF 09/14/2018 RK MARQUEZ MD Ot W19.XXXD UNSPECIFIED FALL, SUBSEQUENT ENCOUNTER 10/01/2018 RK MARQUEZ MD, Ot S46.012D STRAIN OF MUSC/TEND THE ROTATOR CUFF OF 10/01/2018 RK MARQUEZ MD Ot W19.XXXD UNSPECIFIED FALL, SUBSEQUENT ENCOUNTER 10/30/2018 RK MARQUEZ MD Ot S46.012D STRAIN OF MUSC/TEND THE ROTATOR CUFF OF 10/30/2018 RK MARQUEZ MD Ot W19.XXXD UNSPECIFIED FALL, SUBSEQUENT ENCOUNTER 10/31/2018 RK MARQUEZ MD Ot S46.012D STRAIN OF MUSC/TEND THE ROTATOR CUFF OF 10/31/2018 RK MARQUEZ MD Ot W19.XXXD UNSPECIFIED FALL, SUBSEQUENT ENCOUNTER 12/11/2018 RK MARQUEZ MD Ot S46.012D STRAIN OF MUSC/TEND THE ROTATOR CUFF OF 12/11/2018 RK MARQUEZ MD Ot W19.XXXD UNSPECIFIED FALL, SUBSEQUENT ENCOUNTER 12/13/2018 RK MARQUEZ MD Ot S46.012D STRAIN OF MUSC/TEND THE ROTATOR CUFF OF 12/13/2018 RK MARQUEZ MD Ot W19.XXXD UNSPECIFIED FALL, SUBSEQUENT ENCOUNTER 01/02/2019 JESSE CLIFFORD APRN Ot Z12.31 ENCNTR SCREEN MAMMOGRAM FOR MALIGNANT NE 01/02/2019 JESSE CLIFFORD APRN Ot Z53.8 PROCEDURE AND TREATMENT NOT CARRIED OUT Procedures Code Description Performed By Performed On Podiatry Melania Oshea 06/27/2012 Orthopedi Hi Lowe 07/25/2012 34824 URINE DRUG SCREEN (IN-HOUSE) 09/17/2012 07598 ROUTINE VENIPUNCTURE 09/19/2012 22529 CMP 09/19/2012 6098699 GFR CALC (RESULT ONLY) 09/19/2012 48792 TSH 09/19/2012 01466 INSULIN LEVEL 09/19/2012 51551 URINE DRUG SCREEN (IN-HOUSE) 10/30/2012 25370 MAMMOGRAM DX, EMBER 11/01/2012 Rk Olivera 11/01/2012 40157 MRI SPINE (THORACIC) W/O CONTRAST 04/09/2013 28414 MRI SPINE (LUMBAR) W/O CONTRAST 04/09/2013 Physical Physical Therapy 04/23/2013 Physical Physical Therapy 06/24/2013 58070 ROUTINE VENIPUNCTURE 09/18/2013 Carolinata MarquezRk 09/18/2013 89094 URINE DRUG SCREEN (IN-HOUSE) 09/18/2013 19169 HEMOCCULT 09/18/2013 86047 HEMOCCULT 09/18/2013 90833 CBC 09/18/2013 2285547 GFR CALC (RESULT ONLY) 09/18/2013 90505 CMP 09/18/2013 50960 LIPID PANEL 09/18/2013 53547 CRP 09/18/2013 00476 LIPASE 09/18/2013 25456 SED/ESR RATE RML 09/18/2013 08720 TSH 09/18/2013 94970 STOOL FOR POLYS & LEUKOCYTES 09/18/2013 73716 XRAY SHOULDER RIGHT COMP 2 VIEWS 09/19/2013 92782 CULTURE STOOL 09/19/2013 07897 STOOL FOR O & P 09/19/2013 5871438 STOOL FOR BACTERIAL PATHOGENS 09/20/2013 36884 URINE DRUG SCREEN (IN-HOUSE) 10/08/2013 29408 MRI SPINE (THORACIC) W/O CONTRAST 10/08/2013 95845 MRI SPINE (LUMBAR) W/O CONTRAST 10/08/2013 Results Test Result Range Complete blood count (CBC) with automated white [...] Automated erythrocyte mean corpuscular hemoglobin concentration measurement (mass/volume) 34 g/dL 32-36 Automated erythrocyte distribution width ratio 12.9 % 10.0- 14.5 Automated blood platelet count (count/volume) 241 10*3/uL [...] Blood monocytes automated count (number/volume) 0.4 10*3 0.0- 1.0 Automated eosinophil count 0.1 10*3/uL 0.0-0.3 Automated [...] Serum or plasma aspartate aminotransferase measurement (enzymatic activity/volume) 21 U/L 5-34 Serum or plasma alanine aminotransferase measurement (enzymatic activity/volume) 21 U/L 0-55 Serum or plasma protein measurement (mass/volume) 6.7 g/dL 6.4-8.2 Serum or plasma albumin measurement (mass/volume) 4.2 g/dL 3.2-4.5 Serum or plasma troponin i.cardiac measurement (mass/volume) - 06/10/17 13:28 Serum or plasma troponin i.cardiac measurement (mass/volume) < ng/mL <0.30 Fibrin D-dimer FEU measurement in platelet poor plasma (mass/volume) - 06/10/17 13:28 Fibrin D-dimer FEU measurement in platelet poor plasma (mass/volume) < ug/mL 0.00-0.49 Sputum Gram stain - 06/10/17 14:46 Sputum Gram stain Few WBC's, and mixed bacterial yaquelin NRG Bacterial sputum culture - 06/10/17 14:46 Bacterial sputum culture NORMAL NRG CMP - 07/27/17 08:51 GLUCOSE 100 mg/dL 65-99 UREA NITROGEN (BUN) 10 mg/dL 7-25 CREATININE 0.78 mg/dL 0.50-1.05 eGFR NON-AFR. IT[place] 89 mL/min/1.73m2 > OR=60 eGFR 103 mL/min/1.73m2 [...] gravity of urine by test strip 1.005 1.016-1.022 Urine protein assay by test strip, semi-quantitative [...] sediment leukocyte count by microscopy (number/high power field) NONE NRG Bacteria detection in urine sediment [...] Automated erythrocyte mean corpuscular hemoglobin concentration measurement (mass/volume) 35 g/dL 32-36 Automated erythrocyte distribution width ratio 12.5 % 10.0- 14.5 Automated blood platelet count (count/volume) 242 10*3/uL [...] Blood monocytes automated count (number/volume) 0.3 10*3 0.0- 1.0 Automated eosinophil count 0.0 10*3/uL 0.0-0.3 Automated [...] Serum or plasma aspartate aminotransferase measurement (enzymatic activity/volume) 18 U/L 5-34 Serum or plasma alanine aminotransferase measurement (enzymatic activity/volume) 20 U/L 0-55 Serum or plasma protein measurement (mass/volume) 7.2 g/dL 6.4-8.2 Serum or plasma albumin measurement (mass/volume) 4.3 g/dL 3.2-4.5 A1C - 09/20/17 17:09 HEMOGLOBIN A1c 5.3 % of total Hgb <5.7 Methicillin resistant Staphylococcus aureus (MRSA) screening culture - 05/22/18 08:54 Methicillin resistant Staphylococcus aureus (MRSA) screening culture NEG NRG PDM - ATS (PROFILE 8 WITH CONFIRMATION) - 10/15/18 11:40 Prescribed Drug 1 Xanax(TM) NRG Creatinine 30.7 mg/dL > or=20.0 pH 6.19 4.5 - 9.0 Oxidant NEGATIVE mcg/mL <200 Amphetamines NEGATIVE ng/mL <500 medMATCH Amphetamines CONSISTENT NRG Benzodiazepines POSITIVE ng/mL <100 Marijuana Metabolite POSITIVE ng/mL <20 Cocaine Metabolite NEGATIVE ng/mL <150 medMATCH Cocaine Metab CONSISTENT NRG Opiates POSITIVE ng/mL <100 Oxycodone NEGATIVE ng/mL <100 medMATCH Oxycodone CONSISTENT NRG COMMENT NRG Buprenorphine NEGATIVE ng/mL <5 MDMA NEGATIVE ng/mL <500 medMATCH MDMA CONSISTENT NRG Alcohol Metabolites NEGATIVE ng/mL <500 medMATCH Alcohol Metab CONSISTENT NRG 6 Acetylmorphine NEGATIVE ng/mL <10 medMATCH 6 Acetylmorphine CONSISTENT NRG Alphahydroxyalprazolam 72 ng/mL <25 medMATCH aOH alprazolam CONSISTENT NRG Alphahydroxymidazolam NEGATIVE ng/mL <50 medMATCH aOH midazolam CONSISTENT NRG Alphahydroxytriazolam NEGATIVE ng/mL <50 medMATCH aOH triazolam CONSISTENT NRG Aminoclonazepam NEGATIVE ng/mL <25 medMATCH Aminoclonazepam CONSISTENT NRG Hydroxyethylflurazepam NEGATIVE ng/mL <50 medMATCH OH,Et flurazepam CONSISTENT NRG Lorazepam NEGATIVE ng/mL <50 medMATCH Lorazepam CONSISTENT NRG Nordiazepam NEGATIVE ng/mL <50 medMATCH Nordiazepam CONSISTENT NRG Oxazepam NEGATIVE ng/mL <50 medMATCH Oxazepam CONSISTENT NRG Temazepam NEGATIVE ng/mL <50 medMATCH Temazepam CONSISTENT NRG Codeine NEGATIVE ng/mL <50 medMATCH Codeine CONSISTENT NRG Hydrocodone 61 ng/mL <50 medMATCH Hydrocodone INCONSISTENT NRG Hydromorphone NEGATIVE ng/mL <50 medMATCH Hydromorphone CONSISTENT NRG Morphine NEGATIVE ng/mL <50 medMATCH Morphine CONSISTENT NRG Norhydrocodone 79 ng/mL <50 medMATCH Norhydrocodone INCONSISTENT NRG medMATCH Buprenorphine CONSISTENT NRG Marijuana Metabolite 99 ng/mL <5 medMATCH Marijuana Metab INCONSISTENT NRG Encounters ACCT No. Visit Date/Time Discharge Status Pt. Type Provider Facility Loc./Unit Complaint [id number] 12/28/2018 08:50:00 12/28/2018 23:59:59 CLS Outpatient WILD RODRIGUEZ APRN [facility] [id number] 10/15/2018 11:20:00 Document Registration [id number] 09/20/2017 16:00:00 Document Registration [id number] 07/27/2017 08:40:00 Document Registration [id number] 12/12/2018 00:11:00 12/12/2018 23:59:59 CLS Preadmit RK MARQUEZ MD Via [facility] RE[facility]AB S/P L RCR [id number] 11/06/2018 10:45:00 12/11/2018 00:01:00 DIS Outpatient RK MARQUEZ MD Via [facility] RE[facility] S/P L RCR [id number] 07/19/2018 13:00:00 08/09/2018 09:12:00 [facility] [id number] 05/22/2018 08:48:00 05/22/2018 12:08:00 DIS Outpatient WING HUNTER DO Via [facility] SDC RIGHT GROIN LESION [id number] 05/17/2018 07:07:00 05/17/2018 12:05:00 DIS Outpatient WING HUNTER DO Via [facility] PREOP RIGHT GROIN LESION [id number] 04/23/2018 11:24:00 04/23/2018 15:25:00 DIS Emergency NERIS BOSS APRN Via [facility] ER L SHOULDER PAIN [id number] 12/08/2017 08:08:00 01/08/2018 13:43:00 DIS Outpatient RK MARQUEZ MD Via [facility] CERVICAL SPRAIN/WHIPLASH INJURY [id number] 11/23/2017 09:02:00 11/23/2017 23:59:59 CLS Outpatient KEELY GARG Via [facility] RAD N63.20 LT BREAST LUMP;Z13.820 OSTEOPOROSIS SCREENI [id number] 11/09/2017 09:27:00 11/09/2017 23:59:59 CLS Preadmit KEELY GARG Via [facility] RAD Z13.820 SCREENING FOR OSTEOPOROSIS [id number] 07/28/2017 12:43:00 07/28/2017 15:27:00 DIS Emergency MAU HOFFMANN MD Via [facility] ER DIZZY/PASSING OUT [id number] 06/21/2017 10:43:00 06/21/2017 23:59:59 CLS Preadmit RK MARQUEZ MD Via [facility] NECK PAIN [id number] 06/10/2017 13:23:00 06/10/2017 17:17:00 DIS Emergency MAYELIN ARAGON Via [facility] ER CP, COUGHING [id number] 04/14/2017 11:37:00 04/14/2017 23:59:59 CLS Outpatient COLTHALMA ROSA GEORGIANA A Via [facility] RAD R06.02 [id number] 01/18/2017 10:16:00 01/18/2017 14:30:00 DIS Outpatient ROSALIE BELLO DO B Via [facility] ENDO BLACK TARRY STOOLS [id number] 01/16/2017 05:41:00 01/16/2017 13:30:00 DIS Outpatient ROSALIE BELLO DO B Via [facility] PREOP BLACK TARRY STOOLS [id number] 12/15/2016 09:35:00 12/15/2016 23:59:59 CLS Outpatient SUHAS HERNANDEZ MD Via [facility] CARD ABD PAIN RLQ [id number] 11/25/2016 10:08:00 11/25/2016 23:59:59 CLS Outpatient JOAN WILLETT [employer] ARCHITECT [facility] RAD SCREENING [id number] 07/15/2016 14:09:00 07/15/2016 16:43:00 DIS Emergency MAYELIN ARAGON Via [facility] ER FALL LEFT WRIST/HAND INJURY [id number] 05/19/2016 09:59:00 05/19/2016 23:59:59 CLS Outpatient WING HUNTER DO Via [facility] RAD ABDOMINAL PAIN [id number] 01/18/2016 07:09:00 01/18/2016 23:59:59 CLS Outpatient JERO DAMON Via [facility] LAB MIXED PHYERLIPIDEMIA [id number] 01/18/2016 07:05:00 01/18/2016 23:59:59 CLS Outpatient YISSEL MARSHALL, CINDY Gordon [facility] CARD CHEST PAIN SYNDROME,DYSPNEA,MILD HLP,ANXIETY [id number] 01/07/2016 15:21:00 01/07/2016 23:59:59 CLS Outpatient SUHAS HERNANDEZ MD Via [facility] RAD R ANKLE SPRAIN [id number] 11/12/2015 08:45:00 11/12/2015 23:59:59 CLS Outpatient SUHAS HERNANDEZ MD Via [facility] CARD FATIGUE,WEIGHT GAIN,PALPITATIONS,POLYPHAGIA, [id number] 09/29/2015 09:43:00 09/29/2015 15:25:00 DIS Outpatient WING HUNTER DO Via [facility] VIN3; CHRONIC PELVIC PAIN [id number] 09/23/2015 10:18:00 09/23/2015 23:59:59 CLS Outpatient WING HUNTER DO [facility] PREOP VIN3; CHRONIC PELVIC PAIN [id number] 09/23/2015 08:29:00 09/23/2015 23:59:59 CLS Outpatient WING HUNTER DO [facility] RAD CHRONIC PELVIC PAIN, RUQ ABD PAIN [id number] 08/17/2015 10:07:00 08/17/2015 23:59:59 CLS Outpatient JERO DAMON [facility] LAB MILD HLP [id number] 04/24/2015 10:49:00 04/24/2015 23:59:59 CLS Preadmit FIGUEROA ESQUEDA MD [facility] REHAB [id number] 03/31/2015 11:39:00 03/31/2015 23:59:59 CLS Outpatient FIGUEROA ESQUEDA MD [facility] RAD LUMBAGO [id number] 03/31/2015 11:33:00 03/31/2015 23:59:59 CLS Outpatient KALPANA JACINTO MD [facility] RAD STONES [id number] 03/24/2015 14:06:00 03/24/2015 23:59:59 CLS Outpatient KALPANA JACINTO MD [facility] RAD STONE [id number] 03/03/2015 22:34:00 03/04/2015 01:43:00 DIS Emergency EMMY GREEN DO [facility] ER PELVIC PRESSURE/BLEEDING [id number] 09/17/2014 11:40:00 09/17/2014 23:59:59 CLS Outpatient CINDY DEY MD [facility] CARD CP,FAZAL,TOBACCO USE [id number] 09/04/2014 20:00:00 09/04/2014 23:59:59 CLS Preadmit CINDY DEY MD [facility] SLEEP SNORING FATIGUE LOSS OF ENERGY [id number] 09/02/2014 13:52:00 09/02/2014 23:59:59 CLS Outpatient CINDY DEY MD [facility] CARD CP,FAZAL,TOBACCO USE [id number] 08/25/2014 08:20:00 08/25/2014 23:59:59 CLS Outpatient CINDY DEY MD [facility] LAB CHEST PAIN SYNDROME,FATIGUE,OBESITY,TOBACCO USER [id number] 06/26/2014 09:52:00 06/26/2014 23:59:59 CLS Outpatient SUHAS HERNANDEZ MD [facility] RAD HEADACHES [id number] 03/06/2014 13:13:00 03/31/2014 14:00:00 DIS Outpatient RK MARQUEZ MD [facility] REHAB BACK PAIN [id number] 03/12/2014 08:13:00 03/12/2014 23:59:59 CLS Outpatient RK MARQUEZ MD [facility] REHAB S/P R RTC REPAIR [id number] 03/06/2014 13:46:00 03/06/2014 14:58:00 DIS Emergency MARIANNE STOVER MD [facility] ER BACK PAIN/HEADACHE [id number] 11/29/2013 12:54:00 11/29/2013 23:59:59 CLS Outpatient SUHAS HERNANDEZ MD [facility] LAB URINARY FREQ,BURNING ON URINATION [id number] 06/03/2013 12:59:00 06/18/2013 14:56:00 DIS Outpatient DON GUADALUPE [facility] REHAB BACK PAIN W RADICULOPATHY [id number] 04/01/2013 16:01:00 04/01/2013 18:00:00 DIS Emergency NERIS [employer] ANALYST [facility] ER BACK PAIN [id number] 12/20/2012 13:07:00 12/20/2012 23:59:59 CLS Outpatient DON GUADALUPE [facility] RAD BREAST CA [id number] 01/03/2019 09:45:00 PEN Preadmit JESSE CLIFFORD SYSTEMS ANALYST [facility] RAD BREAST LUMP [id number] 01/01/2019 08:38:00 ACT Outpatient JESSE [employer]ORD SYSTEM[employer] ANALYST [facility] RAD SCREENING [id number] 05/13/2015 09:21:00 Document Registration [id number] 06/26/2014 09:53:00 Document Registration [id number] 06/26/2014 09:53:00 Document Registration [id number] 06/26/2014 09:53:00 Document Registration [id number] 06/26/2014 09:53:00 Document Registration [id number] 06/26/2014 09:53:00 Document Registration [id number] 06/26/2014 09:53:00 Document Registration [id number] 06/26/2014 09:53:00 Document Registration [id number] 02/09/2012 10:31:00 Document Registration [id number] 12/06/2011 10:42:00 Document Registration [id number] 11/07/2011 14:07:00 Document Registration [id number] 11/02/2011 17:11:00 Document Registration [id number] 01/11/2011 10:42:00 Document Registration [id number] 12/23/2010 12:59:00 Document Registration [id number] 11/22/2010 13:59:00 Document Registration [id number] 10/27/2010 13:51:00 Document Registration [id number] 09/02/2010 11:28:00 Document Registration [id number] 03/19/2010 12:00:00 Document Registration [id number] 03/18/2010 08:56:00 Document Registration [id number] 12/25/2009 10:58:00 Document Registration [id number] 11/04/2009 13:11:00 Document Registration [id number] 10/26/2009 14:40:00 Document Registration [id number] 08/17/2009 14:23:00 Document Registration [id number] 06/25/2009 11:48:00 Document Registration [id number] 05/28/2009 08:00:00 Document Registration [id number] 05/25/2009 10:37:00 Document Registration [id number] 03/06/2009 08:46:00 Document Registration [id number] 02/14/2014 11:47:00 02/14/2014 23:59:59 CLS Outpatient STALIN PUGA DDS [id number] 10/08/2013 15:20:00 10/08/2013 23:59:59 CLS Outpatient DON GUADALUPE APRN [id number] 10/08/2013 15:20:00 10/08/2013 23:59:59 CLS Outpatient DON GUADALUPE APRN S [id number] 09/19/2013 11:31:00 09/19/2013 23:59:59 CLS Outpatient SAMANTHA GUADALUPE APRNA S [id number] 09/18/2013 11:32:00 09/18/2013 23:59:59 CLS Outpatient SAMANTHA GUADALUPE APRNA S [id number] 08/28/2013 13:40:00 08/28/2013 23:59:59 CLS Outpatient KACIE DRIVER DDS [id number] 06/24/2013 10:57:00 06/24/2013 23:59:59 CLS Outpatient DON GUADALUPE APRN S [id number] 04/22/2013 14:28:00 04/22/2013 23:59:59 CLS Outpatient MELISSA DAHL MD [id number] 10/30/2012 10:42:00 10/30/2012 23:59:59 CLS Outpatient DON GUADALUPE APRN [id number] 09/19/2012 09:51:00 09/19/2012 23:59:59 CLS Outpatient DON GUADALUPE APRN [id number] 09/17/2012 10:37:00 09/17/2012 23:59:59 CLS Outpatient [id number] 07/25/2012 15:19:00 07/25/2012 23:59:59 CLS Outpatient DON GUADALUPE APRN [id number] 06/05/2012 13:36:00 06/05/2012 23:59:59 CLS Outpatient DON GUADALUPE APRN [id number] 04/03/2013 14:55:00 Document Registration [id number] 02/22/2013 14:23:00 Document Registration
== END 2019-01-03 12:50 | disposition home or self-care (01) ==
LOC: EDUNIT# 10:34 → ER 10:35
DX: N20.0 Calculus of kidney (principal); G56.03 Carpal tunnel syndrome, bilateral upper limbs; E78.00 Pure hypercholesterolemia, unspecified; G43.909 Migraine, unspecified, not intractable, without status migrainosus; K21.9 Gastro-esophageal reflux disease without esophagitis; F41.9 Anxiety disorder, unspecified; F31.9 Bipolar disorder, unspecified; F43.10 Post-traumatic stress disorder, unspecified; Z87.440 Personal history of urinary (tract) infections; Z87.442 Personal history of urinary calculi; Z82.49 Family history of ischemic heart disease and other diseases of the circulatory system; Z80.3 Family history of malignant neoplasm of breast; Z87.19 Personal history of other diseases of the digestive system; Z98.890 Other specified postprocedural states; Z88.8 Allergy status to other drugs, medicaments and biological substances; Z87.891 Personal history of nicotine dependence; Z90.710 Acquired absence of both cervix and uterus; Z90.49 Acquired absence of other specified parts of digestive tract
CPT/HCPCS: 36415; 74176; 80053; 81000; 85025; 96374; 96375

== ENCOUNTER → 2019-01-03 | Outpatient (CLI) | payer MEDICAID ==
[~2019-01-03] MED LIST changes: +ONDA4TAB11 PO; +PANTOPRAZOLE TAB 40MG
--- NOTE | 2019-01-03 20:48 | Diagnostic Imaging Report ---
INDICATION: Left breast lump. COMPARISON: Correlation is made with prior mammograms from 11/23/2017 and 11/25/2016. EXAMINATION: 2D and 3D bilateral diagnostic mammography was performed with CAD. A BB marker was placed at the area of palpable abnormality in the upper-inner left breast. The current study was also evaluated with a Computer Aided Detection (CAD) system. FINDINGS: Scattered fibroglandular densities are identified, bilaterally. No mass is identified. Specifically, at the area of palpable abnormality, no underlying abnormality is seen. There are no suspicious calcifications. Axillae are unremarkable. IMPRESSION: No mammographic features suspicious for malignancy are identified. Even so, directed sonographic interrogation of the area of palpable abnormality involving the left breast is recommended and will be performed today. ACR BI-RADS Category 0: Incomplete. (Needs additional imaging evaluation). Result letter will be mailed to the patient. Note: At least 10% of breast cancer is not imaged by mammography. Dictated by: Dictated on workstation # [id number]
--- NOTE | 2019-01-03 20:50 | Diagnostic Imaging Report ---
INDICATION: Palpable lump in left breast. COMPARISON: Correlation is made with diagnostic mammogram from earlier the same day. EXAMINATION: Sonography interrogation of the area of lump in left breast was performed. This corresponds to the 9:30 location, approximately 4 cm from the nipple. FINDINGS: There is a hyperechoic region at this location, measuring 2.1 x 1.2 x 1.8 cm. This is most consistent with a lipoma. This is just below the skin surface. No other sonographic abnormality is seen. IMPRESSION: Lipoma at the 9:30 location of the left breast corresponding to the palpable abnormality. No concerning sonographic finding is identified. ACR BI-RADS Category 2: Benign findings. Result letter will be mailed to the patient. Note: At least 10% of breast cancer is not imaged by mammography. Dictated by: Dictated on workstation # [id number]
== END ==
LOC: RAD 09:40
PROVIDERS: ATTEND Nurse Practitioner Primary Care
DX: D17.1 Benign lipomatous neoplasm of skin and subcutaneous tissue of trunk (principal); N63.22 Unspecified lump in the left breast, upper inner quadrant
CPT/HCPCS: 76642; 77066

== ENCOUNTER 2019-01-18 09:42 | Outpatient (RCR) | payer MEDICAID ==
[~2019-01-18 09:42] MED LIST changes: +ONDA4TAB11 PO; +PANTOPRAZOLE TAB 40MG
== END 2019-04-18 | disposition home or self-care (01) ==
LOC: CARD 09:42
PROVIDERS: ATTEND Internal Medicine Cardiovascular Disease
DX: R07.9 Chest pain, unspecified (principal); E78.2 Mixed hyperlipidemia; R06.09 Other forms of dyspnea; R00.2 Palpitations
CPT/HCPCS: 93225; 93226

== ENCOUNTER → 2019-01-23 | Outpatient (CLI) | payer MEDICAID ==
[~2019-01-23] VITALS: Ht 172.7 cm; Wt 91.6 kg
[~2019-01-23] MED LIST changes: +CATHETER FLUSH 10 ML SYR IV PRN
--- NOTE | 2019-01-23 15:52 | STRESS TEST ---
DATE OF SERVICE: 01/23/2019 EXERCISE MYOVIEW STRESS TEST REPORT REFERRING PHYSICIAN: [facility]. Baseline heart rate is 67. Baseline blood pressure 129/81. Baseline EKG is sinus rhythm with no ischemic changes. SUMMARY: The patient was injected with 10.96 mCi of technetium-99 Myoview and the resting images were obtained. Then, the patient started exercising with a baseline heart rate, blood pressure and EKG mentioned above. She was able to exercise for a total of 6 minutes 30 seconds on standard Osmel protocol. With peak exercise level, blood pressure was 179/87. EKG was showing minimal nondiagnostic changes. During recovery, heart rate and blood pressure returned to baseline. EKG returned to baseline. The resting and stress images were reviewed and compared in the short axis, horizontal long axis, and vertical long axis views. Review of the images showed breast attenuation with typical female pattern. No significant ischemia or infarction was seen. SSS is 1, SDS 1, TID value 0.9. On the gated images, the left ventricle appeared to be normal size with normal contractility. Calculated ejection fraction 73%. CONCLUSION: 1. Fair exercise tolerance, a total of 6 minutes 30 seconds on standard Osmel protocol, total of 7.9 METS achieving 94% of maximum expected heart rate. 2. Appropriate heart rate and blood pressure response to exercise returned to baseline during recovery. 3. Minimal nondiagnostic EKG changes with exercise returned to baseline during recovery. 4. No significant ischemia or infarction on SPECT images. 5. Normal left ventricular size with normal contractility. Calculated ejection fraction 73%. Job ID: [id number] DocumentID: [id number] Dictated Date: 01/23/2019 15:31:54 Property Developer Date: 01/23/2019 15:51:29 Dictated By: CINDY DEY MD
== END ==
LOC: CARD 11:25
PROVIDERS: ATTEND Internal Medicine Cardiovascular Disease
DX: R07.89 Other chest pain (principal); E78.5 Hyperlipidemia, unspecified; R06.09 Other forms of dyspnea; R00.2 Palpitations
CPT/HCPCS: 78452; 93017

== ENCOUNTER → 2019-05-14 | Outpatient (CLI) | payer MEDICAID ==
[~2019-05-14] MED LIST changes: -CATHETER FLUSH 10 ML SYR IV PRN
--- NOTE | 2019-05-14 14:35 | Diagnostic Imaging Report ---
PROCEDURE: US Abdomen, limited. TECHNIQUE: Multiple realtime grayscale images were obtained over the abdomen in various projections. INDICATION: Right upper quadrant pain x5 days Liver parenchyma is homogeneous with normal echotexture. The gallbladder is clear with no stones or wall thickening. The common duct is not appreciably dilated. The pancreas largely obscured by bowel gas. Right kidney measures 10.3 cm in length. There is no solid mass, calculus or hydronephrosis seen in the right kidney. There is no ascites. IMPRESSION: Negative gallbladder sonogram Dictated by: Dictated on workstation # [id number]
== END ==
LOC: RAD 13:27
PROVIDERS: ATTEND Nurse Practitioner Primary Care
DX: R10.11 Right upper quadrant pain (principal)
CPT/HCPCS: 76705

== ENCOUNTER 2019-11-08 07:51 | Emergency (ER) | payer MEDICAID ==
[~2019-11-08] VITALS: Ht 176 cm; Wt 86.0 kg
[~2019-11-08 07:51] MED LIST changes: +OMEP40CA27 PO; -OMEP40CA36 PO; -TRAZ-190 PO; +TRAZ-227 PO
[2019-11-08] MEDS: LACTATED RINGERS 1,000 ML IV ONE ×2 (08:05→08:35)
[2019-11-08] MEDS: ONDANSETRON 4 MG/2 ML (SDV) Z0FRAN IVP ONE ×2 (08:05→08:35)
[2019-11-08] MEDS: ASPIRIN 81 MG CHEW (CHILDREN'S ASA) PO ONE ×2 (08:10→08:35)
--- NOTE | 2019-11-08 08:26 | ED General ---
General Stated Complaint: CHEST PAIN,FEVER Source of Information: Patient History of Present Illness Date Seen by Provider: Nov 08, 2019 Time Seen by Provider: 08:00 Initial Comments PT ARRIVES VIA POV FROM HOME PT WITH A MULTITUDE OF COMPLAINTS STATES SHE HAS BEEN "SICK FOR OVER A MONTH"-"JUST NOT FEELING GOOD" C/O SORE THROAT FOR OVER A MONTH C/O BILATERAL EAR PAIN FOR OVER A MONTH STATES SHE WENT TO [facility] [place] [place] [facility] 4 WEEKS AGO, NO TESTS WERE DONE, EXAM WAS REPORTEDLY NORMAL AND NO RX'S GIVEN WENT BACK TO [facility] THE NEXT DAY FOR SAME COMPLAINTS AND [employer] Wanda CLIFFORD, NO TESTS, EXAM REPORTEDLY NORMAL NO RX'S GIVEN STATES THOSE SYMPTOMS HAVE CONTINUED FOR THE LAST MONTH STATES 4 DAYS AGO, SHE BEGAN HAVING A HEADACHE-TOP AND SIDES OF HEAD--HAS CH RONIC HEADACHES C/O FEVER UP TO 101.3 SINCE YESTERDAY--TOOK 1 TYLENOL YESTERDAY, OTHERWISE HAS NOT TAKEN ANYTHING FOR SYMPTOMS AT ANY TIME C/O CHILLS SINCE YESTERDAY C/O FEELING DIZZY THIS AM C/O HANDS AND ARMS WERE FEELING TINGLY THIS AM STATES SHE FELT LIKE SHE WAS GOING TO PASS OUT WHEN SHE WAS ON THE TOILET THIS AM HAD SOME DIARRHEA LAST PM--HAS CHRONIC DIARRHEA NO NAUSEA/VOMITING STATES HER CHEST HAS BEEN FEELING TIGHT NO COUGH C/O SLIGHT SHORTNESS OF BREATH EXTENSIVE PSYCH HISTORY PT STATES SHE HAD ONE SISTER IN THE HOSPITAL A MONTH AGO FOR "SEPSIS"--PT DOES NOT KNOW WHAT CAUSED HER TO BE SICK SHE HAD ANOTHER SISTER FROM A HEART ATTACK IN [place] 3 DAYS AGO PT SEEN IN COVID UNIT--PPE WORN AT ALL TIMES PCP: [facility] Allergies and Home Medications Allergies Coded Allergies: fentanyl (Verified Allergy, Severe, SEVERE N/V, 01/03/19) Xkljaia-Wpe-Rqa Reductase Inhibitor (Verified Allergy, Mild, LEG CRAMPS, 01/03/19) Home Medications Alprazolam 1 Mg Tablet, 1 MG PO TID, (Reported) Amoxicillin 500 Mg Capsule, 500 MG PO QID, (Reported) Azithromycin 500 Mg Tablet, 500 MG PO DAILY Prescribed by: EMMY GREEN on 11/08/19 0938 Benzocaine/Menthol 78 Gm Aerosol, 78 GM TP QID Prescribed by: WING HUNTER on 05/22/18 1059 Cyclobenzaprine HCl 10 Mg Tablet, 10 MG PO Q8H PRN for SPASMS Prescribed by: LISA ADAMES on 01/03/19 1253 Hydrocodone/Acetaminophen 1 Each Tablet, 1 EACH PO Q6H Prescribed by: WING HUNTER on 05/22/18 1059 Hydroxyzine Pamoate 50 Mg Capsule, 50 MG PO Q6H Prescribed by: EMMY GREEN on 11/08/19 0938 Ibuprofen 600 Mg Tablet, 600 MG PO Q6H PRN for PAIN Prescribed by: WING HUNTER on 05/22/18 1059 Ondansetron 4 Mg Tab.rapdis, 4-8 MG PO Q6H PRN for NAUSEA/VOMITING Prescribed by: LISA ADAMES on 01/03/19 1253 Patient Home Medication List Home Medication List Reviewed: Yes Review of Systems Review of Systems Constitutional: see HPI, chills, dizziness, fever EENTM: see HPI, ear pain, throat pain Respiratory: see HPI; No cough, No phlegm; short of breath; No wheezing Cardiovascular: see HPI, chest pain; No edema, No palpitations Gastrointestinal: see HPI; No abdominal pain; diarrhea; No hematemesis; loss of appetite; No melena; nausea; No vomiting Genitourinary: no symptoms reported Musculoskeletal: no symptoms reported Skin: no symptoms reported Psychiatric/Neurological: See HPI, Anxiety, Headache, Paresthesia Hematologic/Lymphatic: No Symptoms Reported Immunological/Allergic: no symptoms reported Past Fhnnkeo-Gtoaci-Ydfvrq Hx Past Med/Social Hx: Reviewed and Corrections made Patient Social History Alcohol Use: Past History (HISTORY OF ABUSE, CLAIMS NO USE X 14 YEARS, PER PT ON 11/08/19) Recreational Drug Use: Yes (THC USE REGUARLY;HX OF MULTI SUBSTANCE ABUSE- METH,COCAINE, PILLS,"EVERYTHIN) Drug of Choice: THC REGULAR USE;HX OF METH,COCAINE,PILLS,"EVERYTHING" Smoking Status: Former Smoker (1 PPD, QUIT 2019) Type Used: Cigarettes Recent Hopitalizations: No Immunizations Up To Date Date of Influenza Vaccine: May 09, 2011 Seasonal Allergies Seasonal Allergies: Yes Past Medical History Surgeries: Yes (LOWER BACK SX, BILAT CTR, BILAT ELBOW, BILAT RCR, DXLS, ) Appendectomy, Hysterectomy, Oophorectomy, Orthopedic, Renal Respiratory: No Cardiac: Yes High Cholesterol, Irregular Heartbeat Neurological: Yes Headaches /Migraines 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 Disorders: No Female 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 Disorders: 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 Sexually Transmitted Disease: Yes (HPV) HIV/AIDS: No Genitourinary: Yes Kidney Stones, UTI-Chronic Gastrointestinal: Yes (ABDOMINAL PAIN, TARRY STOOLS) Gastroesophageal Reflux, Chronic Diarrhea, Irritable Bowel Musculoskeletal: Yes (MULTIPLE ORTHOPEDIC SURGERIES) Arthritis, Chronic Back Pain Endocrine: Yes (PRE DIABETIC) HEENT: Yes Loss of Vision: Bilateral Hearing Impairment: Denies Cancer: No Psychosocial: Yes (SEVERE MANIC DEPRESSIVE DISORDER) Anxiety, PTSD, Bipolar, Depression Integumentary: No Blood Disorders: No Adverse Reaction/Blood Tranf: No (N/A) Family Medical History Alcoholism 19 FATHER G8 BROTHER G8 SISTER Arthritis 19 MOTHER G8 SISTER Cardiovascular disease 19 FATHER G8 BROTHER Diabetes mellitus 19 FATHER G8 BROTHER G8 SISTER Drug abuse G8 BROTHER G8 SISTER FH: cancer 19 MOTHER (BREAST) Glaucoma 19 FATHER G8 SISTER Hypercholesterolemia 19 FATHER G8 BROTHER Hypertension 19 FATHER G8 BROTHER Myocardial infarction 19 FATHER Psychosocial problem 19 MOTHER G8 BROTHER G8 SISTER Respiratory disorder 19 FATHER Seizure disorder G8 SISTER Thyroid disease G8 SISTER No Pertinent Family Hx Physical Exam Vital Signs Vital Signs - First Documented 11/08/19 07:55 Temp 36.9 Pulse 90 Resp 12 B/P (MAP) 155/99 (117) Pulse Ox 100 O2 Delivery Room Air Capillary Refill : Height, Weight, BMI Height: 5'8.00" Weight: 202lbs. 0.0oz. [id number]; 30.7 BMI Method:Stated General Appearance: WD/WN, Anxious (EXTREMELY ANXIOUS), Obese HEENT: PERRL/EOMI, TMs Normal, Normal ENT Inspection, Pharynx Normal; No Photophobia Neck: Full Range of Motion, Normal Inspection, Non Tender, Supple; No Carotid Bruit, No JVD Respiratory: Chest Non Tender, Normal Breath Sounds, No Accessory Muscle Use, No Respiratory Distress Cardiovascular: Regular Rate, Rhythm, No Edema, No JVD, No Murmur, Normal Peripheral Pulses Gastrointestinal: Normal Bowel Sounds, No Organomegaly, No Pulsatile Mass, Non Tender, Soft Back: No CVA Tenderness Extremity: Normal Inspection Neurologic/Psychiatric: Alert, Oriented x3, No Motor/Sensory Deficits, recreational therapist II- XII Norm as Tested, Other (EXTREMELY ANXIOUS) Skin: Normal Color, Warm/Dry Focused Exam Lactate Level 11/08/19 08:27: Lactic Acid Level 1.50 Lactic Acid Level Laboratory Tests Test 11/08/19 08:27 Lactic Acid Level 1.50 MMOL/L (0.50-2.00) Progress/Results/Core Measures Suspected Sepsis SIRS Temperature: Pulse: Respiratory Rate: Laboratory Tests 11/08/19 08:27: White Blood Count 5.2 Blood Pressure / Mean: 11/08/19 08:27: Lactic Acid Level 1.50 Laboratory Tests 11/08/19 08:27: Creatinine 0.79, INR Comment 1.0, Platelet Count 259, Total Bilirubin 0.9 Results/Orders Lab Results Laboratory Tests Test 11/08/19 08:17 11/08/19 08:27 11/08/19 09:39 Range/Units Group A Streptococcus Screen NEGATIVE NEGATIVE White Blood Count 5.2 4.3-11.0 10^3/uL Red Blood Count 4.97 4.35-5.85 10^6/uL Hemoglobin 15.3 11.5-16.0 G/DL Hematocrit 45 35-52 % Mean Corpuscular Volume 91 80-99 FL Mean Corpuscular Hemoglobin 31 25-34 PG Mean Corpuscular Hemoglobin Concent 34 32-36 G/DL Red Cell Distribution Width 12.8 10.0-14.5 % Platelet Count 259 130-400 10^3/uL Mean Platelet Volume 10.6 H 7.4-10.4 FL Neutrophils (%) (Auto) 53 42-75 % Lymphocytes (%) (Auto) 40 12-44 % Monocytes (%) (Auto) 7 0-12 % Eosinophils (%) (Auto) 1 0-10 % Basophils (%) (Auto) 0 0-10 % Neutrophils # (Auto) 2.7 1.8-7.8 X 10^3 Lymphocytes # (Auto) 2.1 1.0-4.0 X 10^3 Monocytes # (Auto) 0.3 0.0-1.0 X 10^3 Eosinophils # (Auto) 0.1 0.0-0.3 10^3/uL Basophils # (Auto) 0.0 0.0-0.1 10^3/uL Erythrocyte Sedimentation Rate 7 0-30 MM/HR Prothrombin Time 13.8 12.2-14.7 SEC INR Comment 1.0 0.8-1.4 Activated Partial Thromboplast Time 29 24-35 SEC Sodium Level 138 135-145 MMOL/L Potassium Level 3.7 3.6-5.0 MMOL/L Chloride Level 104 98-107 MMOL/L Carbon Dioxide Level 21 21-32 MMOL/L Anion Gap 13 5-14 MMOL/L Blood Urea Nitrogen 11 7-18 MG/DL Creatinine 0.79 0.60-1.30 MG/DL Estimat Glomerular Filtration Rate > 60 BUN/Creatinine Ratio 14 Glucose Level 135 H 70-105 MG/DL Lactic Acid Level 1.50 0.50-2.00 MMOL/L Calcium Level 9.2 8.5-10.1 MG/DL Corrected Calcium 8.5-10.1 MG/DL Magnesium Level 1.8 1.6-2.4 MG/DL Total Bilirubin 0.9 0.1-1.0 MG/DL Aspartate Amino Transf (AST/SGOT) 18 5-34 U/L Alanine Aminotransferase (ALT/SGPT) 18 0-55 U/L Alkaline Phosphatase 90 40-136 U/L Lactate Dehydrogenase 161 125-220 U/L Total Creatine Kinase 59 29-168 U/L Creatine Kinase MB 0.9 <6.6 NG/ML Myoglobin 29.9 10.0-92.0 NG/ML Troponin I < 0.028 <0.028 NG/ML C-Reactive Protein High Sensitivity 0.16 0.00-0.50 MG/DL B-Type Natriuretic Peptide < 10.0 <100.0 PG/ML Total Protein 7.6 6.4-8.2 GM/DL Albumin 4.6 H 3.2-4.5 GM/DL Amylase Level 47 25-125 U/L Lipase 44 8-78 U/L Procalcitonin 0.02 <0.10 NG/ML Salicylates Level < 5.0 L 5.0-20.0 MG/DL Acetaminophen Level < 10 L 10-30 UG/ML Serum Alcohol < 10 <10 MG/DL Monoscreen NEGATIVE NEGATIVE Urine Color YELLOW Urine Clarity CLEAR Urine pH 6.5 5-9 Urine Specific [place] <=1.005 1.016-1.022 Urine Protein NEGATIVE NEGATIVE Urine Glucose (UA) NEGATIVE NEGATIVE Urine Ketones NEGATIVE NEGATIVE Urine Nitrite NEGATIVE NEGATIVE Urine Bilirubin NEGATIVE NEGATIVE Urine Urobilinogen 0.2 < = 1.0 MG/DL Urine Leukocyte Esterase NEGATIVE NEGATIVE Urine RBC (Auto) NEGATIVE NEGATIVE Urine RBC NONE /HPF Urine WBC 0-2 /HPF Urine Squamous Epithelial Cells 2-5 /HPF Urine Crystals NONE /LPF Urine Bacteria FEW H /HPF Urine Casts NONE /LPF Urine Mucus NEGATIVE /LPF Urine Culture Indicated NO Urine Opiates Screen NEGATIVE NEGATIVE Urine Oxycodone Screen NEGATIVE NEGATIVE Urine Methadone Screen NEGATIVE NEGATIVE Urine Propoxyphene Screen NEGATIVE NEGATIVE Urine Barbiturates Screen NEGATIVE NEGATIVE Ur Tricyclic Antidepressants Screen NEGATIVE NEGATIVE Urine Phencyclidine Screen NEGATIVE NEGATIVE Urine Amphetamines Screen NEGATIVE NEGATIVE Urine Methamphetamines Screen NEGATIVE NEGATIVE Urine Benzodiazepines Screen NEGATIVE NEGATIVE Urine Cocaine Screen NEGATIVE NEGATIVE Urine Cannabinoids Screen POSITIVE H NEGATIVE My Orders Orders - PETER,EMMY K DO Cbc With Automated Diff (11/08/19 08:04) Magnesium (11/08/19 08:04) Chest 1 View, Ap/Pa Only (11/08/19 08:04) Ekg Tracing (11/08/19 08:04) Comprehensive Metabolic Panel (11/08/19 08:04) Myoglobin Serum (11/08/19 08:04) Protime With Inr (11/08/19 08:04) Partial Thromboplastin Time (11/08/19 08:04) O2 (11/08/19 08:04) Monitor-Rhythm Ecg Trace Only (11/08/19 08:04) Lipid Panel (11/09/19 06:00) Ed Iv/Invasive Line Start (11/08/19 08:04) Creatine Kinase (11/08/19 08:04) Creatine Kinase Mb (11/08/19 08:04) Lipase (11/08/19 08:04) Amylase (11/08/19 08:04) BNP (11/08/19 08:04) Troponin I (11/08/19 08:04) Aspirin Chewable Tablet (Baby Aspirin Ch (11/08/19 08:15) Ferritin (11/08/19 08:04) Procalcitonin (Pct) (11/08/19 08:04) Hs C Reactive Protein (11/08/19 08:04) Erythrocyte Sedimentation Rate (11/08/19 08:04) LDH (11/08/19 08:04) Blood Culture (11/08/19 08:04) Influenza A And B Antigens (11/08/19 08:04) Rapid Strep A Screen (11/08/19 08:04) Acetaminophen (11/08/19 08:04) Alcohol (11/08/19 08:04) Drug Screen Stat (Urine) (11/08/19 08:04) Lactic Acid Analyzer (11/08/19 08:04) Monotest (11/08/19 08:04) Salicylate (11/08/19 08:04) Ua Culture If Indicated (11/08/19 08:04) Ed Iv/Invasive Line Start (11/08/19 08:04) Lactated Ringers (Lr 1000 Ml Iv Solution (11/08/19 08:04) Ondansetron Injection (Zofran Injectio (11/08/19 08:15) Pantoprazole Injection (Protonix Injecti (11/08/19 08:15) Ed Iv/Invasive Line Start (11/08/19 09:27) Lactated Ringers (Lr 1000 Ml Iv Solution (11/08/19 09:27) Azithromycin Tablet (Zithromax Tablet) (11/08/19 09:30) Medications Given in ED Current Medications Medications Dose Ordered Sig/[place] Route Start Time Stop Time Status Last Admin Dose Admin Aspirin 324 mg ONCE ONCE PO 11/08/19 08:15 11/08/19 08:16 DC 11/08/19 08:35 324 MG Azithromycin 500 mg ONCE ONCE PO 11/08/19 09:30 11/08/19 09:31 DC 11/08/19 09:46 500 MG Lactated Ringer's 1,000 ml @ 0 mls/hr Q0M ONCE IV 11/08/19 08:04 11/08/19 08:10 DC 11/08/19 08:35 0 MLS/HR Lactated Ringer's 1,000 ml @ 0 mls/hr Q0M ONCE IV 11/08/19 09:27 11/08/19 09:28 DC 11/08/19 09:45 0 MLS/HR Ondansetron HCl 4 mg ONCE ONCE IVP 11/08/19 08:15 11/08/19 08:16 DC 11/08/19 08:35 4 MG Pantoprazole 40 mg ONCE ONCE IV 11/08/19 08:15 11/08/19 08:16 DC 11/08/19 08:45 40 MG Vital Signs/I&O 11/08/19 07:55 Temp 36.9 Pulse 90 Resp 12 B/P (MAP) 155/99 (117) Pulse Ox 100 O2 Delivery Room Air Capillary Refill : Progress Note : Progress Note COVID TESTING DONE, BASED ON CURRENT GUIDELINES UNEVENTFUL ER STAY NO COUGH NOTED NO FEVER AT ANY TIME NO DYSPNEA AT ANY TIME VITALS STABLE SYMPTOMS IMPROVED AT DISMISSAL ECG Initial ECG Impression Date: Nov 08, 2019 Initial ECG Impression Time: 08:00 Initial ECG Rate: 78 Initial ECG Rhythm: Normal Sinus Diagnostic Imaging Comments CXR--PER RADIOLOGIST REPORT AT 0923 FINDINGS: Heart is unremarkable. Pulmonary vasculature normal. There is atelectasis or scar at the left lung base. Questionable nodularities noted in the left upper lung. These are nonspecific and could be due to a small focus of developing pneumonia. The remaining chest is clear. Small nodules in the upper lung not excluded. No effusions or pneumothorax. IMPRESSION: 1. Nonspecific nodularity left upper lung, followup to assure resolution, recommended if this does not resolve subsequent CT may be warranted. Reviewed: Reviewed by Me Departure Impression Primary Impression: Fever Additional Impressions: QUESTIONABLE PNEUMONIA Anxiety COVID P.U.I. Marijuana use Disposition: HOME, SELF-CARE Condition: Improved Departure-Patient Inst. Referrals: [facility] (PCP) Primary Care Physician JESSE CLIFFORD APRN (Family) Primary Care Physician Patient Instructions: COVID19 Add. Discharge Instructions: LOTS OF CLEAR LIQUIDS--WATER, BROTH, JELLO, GATORADE TYLENOL NEEDED FOR PAIN OR FEVER OVER 101 OVER THE COUNTER MUCINEX DM FOR COUGH CONTINUE YOUR REGULAR MEDICATIONS PRESCRIBED SELF QUARANTINE YOURSELF AND ANYONE WHO LIVES IN YOUR HOUSE FOR THE NEXT 14 DAYS RETURN TO ER IF SYMPTOMS WORSEN Scripts Hydroxyzine Pamoate (Vistaril) 50 Mg Capsule 50 MG PO Q6H for Anxiety, #14 CAP Prov: EMMY GREEN DO 11/08/19 Azithromycin (Zithromax) 500 Mg Tablet 500 MG PO DAILY for 5 Days, #5 TAB Prov: EMMY GREEN DO 11/08/19 EMMY GREEN DO Nov 08, 2019 08:26
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
[2019-11-08 08:39] LABS: BASOPHILS % (AUTO) 0 % (0-10); EOSINOPHILS # (AUTO) 0.1 10^3/uL (0.0-0.3); EOSINOPHILS % (AUTO) 1 % (0-10); HEMATOCRIT 45 % (35-52); HEMOGLOBIN 15.3 G/DL (11.5-16.0); LYMPHOCYTES # (AUTO) 2.1 X 10^3 (1.0-4.0); LYMPHOCYTES % (AUTO) 40 % (12-44); MEAN CORPUSCULAR HEMOGLOBIN 31 PG (25-34); MEAN CORPUSCULAR HGB CONC 34 G/DL (32-36); MEAN CORPUSCULAR VOLUME 91 FL (80-99); MEAN PLATELET VOLUME 10.6 FL (7.4-10.4); MONOCYTES # (AUTO) 0.3 X 10^3 (0.0-1.0); MONOCYTES % (AUTO) 7 % (0-12); NEUTROPHILS # (AUTO) 2.7 X 10^3 (1.8-7.8); NEUTROPHILS % (AUTO) 53 % (42-75); PLATELET COUNT 259 10^3/uL (130-400); RED CELL DISTRIBUTION WIDTH 12.8 % (10.0-14.5); WHITE BLOOD COUNT 5.2 10^3/uL (4.3-11.0)
--- OUTSIDE RECORDS SUMMARY | 2019-11-08 08:39 | XMS REPORT ---
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 Active 45938336 Problem Opioid use disorder, moderate, in sustained remission F11.21 Active 36388424 Problem Tobacco use Z72.0 Active 36728087 8 Problem Cocaine use disorder, moderate, in sustained remission F14.21 Active 72639504 Problem GERD with esophagitis K21.0 Active 371386908 Problem Prediabetes 790.29 Active 0456550 Problem PTSD (post-traumatic stress disorder) F43.10 Active 82637965 Problem Bipolar disorder F31.9 Active 137 61787 Problem Gastroesophageal reflux disease, esophagitis pre sence not specified K21.9 Active 598054387 Problem Menopausal disorder N95.9 Active 532831212 Problem Insomnia, unspecified type G47.00 Act avelina 563997711 Problem Cigarette nicotine dependence without complication F17.210 Active 34254337 Problem Cannabis abuse F12.10 Active 97467 009 Problem Irritable bowel syndrome with diarrhea K58.0 Active 841773884 Problem Acute pain of left shoulder M25.512 Ac tive 25945865 Problem Mixed hyperlipidemia E78.2 Active 383457966 Problem Generalized anxiety disorder F41.1 A ctive 82366687 Problem Arthritis M19.90 Active 9153192 Problem Other chronic pain G89.29 Active 8 9920631 Problem Fibromyalgia M79.7 Active 9271431 05 Problem Perimenopausal vasomotor symptoms N95.1 Active 942199649 ALLERGIES No Information ENCOUNTERS Encounter Location Date Diagnosis [facility] [address] [facility] [id number] [address] [place] [phone] Oct, [facility] [address] [facility] [id number] [address] [place] [id number] 12 Oct, 2019 Acute rhinosinusitis J01.90 ; Generalized anxiety disorder F41.1 ; Major depressive disorder, recurrent episode, moderate F33.1 ; Gastroesophageal reflux disease, esophagitis presence not specified K21.9 ; Irritable bowel syndrome with diarrhea K58.0 and Mixed hyperlipidemia E78.2 [facility] [address] [facility] [id number] [address] [place] [id number] 11 Oct, 2019 Viral upper respiratory trac t infection J06.9 [place] [address] [facility] [id number] [address] [place] [id number] 19 Sep, 2019 [place] [address] [place] [id number] [address] [place] [address] 14 Sep, 2019 Major depressive disorder, r ecurrent episode, moderate F33.1 ; Generalized anxiety disorder F41.1 ; Irritable bowel syndrome with diarrhea K58.0 and Epigastric abdominal pain R10.13 [facility] [address] [place] [id number] [place] [address] 24 May, 2019 Dental examination Z01.20 and Caries K02 .9 [place] [address] [place] [id number] [address] [place] [phone] 08 May, 2019 Right upper quadrant pain R1 0.11 and Mixed hyperlipidemia E78.2 [place] [address] [facility] [id number] [address] [place] [address] Mar, Perimenopausal vasomotor sym ptoms N95.1 [place] [address] [place] [id number] [address] [place] [phone] Mar, [place] [address] [facility] [id number] [address] [place] [phone] Mar, [place] [address] [place] [id number] [address] [place] [address] Mar, [place] [address] [place] [id number] [address] [place] [address] Mar, Perimenopausal vasomotor sym ptoms N95.1 ; Irritable bowel syndrome with diarrhea K58.0 ; Insomnia, unspecified type G47.00 and Weight gain R63.5 [place] [address] [place] [id number] [place] [address] Feb, [place] [address] [address] Feb, [place] [address] [place] [id number] [place] [address] Jan, [place] [address] [place] [id number] [place] [address] Jan, Fibromyalgia M79.7 ; Insect bite (nonvenomous) of lower back and pelvis, sequela S30.860S ; Bitten or stung by nonvenomous insect and other nonvenomous arthropods, sequela W57.XXXS ; Arthritis M19.90 and Menopausal disorder N95.9 [place] [address] [place] [id number] [place] [address] Jan, [place] [address] [place] [id number] [address] [place] [address] Jan, Mixed hyperlipidemia E78.2 [place] [address] [place] [id number] [address] [place] [address] December, Screening for breast cancer Z12.31 and Breast lump N63.0 [place] [address] [place] [id number] [address] [place] [address] December, Chest pain, unspecified type R07.9 [place] [address] [place] [id number] [address] [place] [address] December, Chest pain, unspecified type R07.9 ; Gastroesophageal reflux disease, esophagitis presence not specified K21.9 and Left breast lump N63.20 [facility] [address] [place] [id number] [address] [place] [address] December, [facility] [address] [place] [address] December, Suprapubic abdominal pain R1 0.2 and Dysuria R30.0 [facility] [address] [place] [id number] [address] [place] [address] December, [facility] [address] [place] [id number] [address] [place] [address] December, Cannabis abuse F12.10 ; Gene ralized anxiety disorder F41.1 ; Methamphetamine use disorder, severe, in sustained remission F15.21 ; Alcohol use disorder, mild, in sustained remission F10.11 ; PTSD (post-traumatic stress disorder) F43.10 ; Cocaine use disorder, moderate, in sustained remission F14.21 and Bipolar disorder F31.9 [place] [address] [place] [id number] [address] [place] [address] Nov, Major depressive disorder, r ecurrent episode, moderate F33.1 ; Cannabis abuse F12.10 ; Generalized anxiety disorder F41.1 ; Methamphetamine use disorder, severe, in sustained remission 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 ; Alcohol use disorder, mild, in sustained remission F10.11 ; PTSD (post-traumatic stress disorder) F43.10 and Cocaine use disorder, moderate, in sustained remission F14.21 [facility] [address] [place] [id number] [address] [place] [address] Oct, Major depressive disorder, r ecurrent episode, moderate F33.1 ; Cannabis abuse F12.10 ; Generalized anxiety disorder F41.1 ; Methamphetamine use disorder, severe, in sustained remission F15.21 ; Alcohol use disorder, mild, in sustained remission F10.11 ; PTSD (post-traumatic stress disorder) F43.10 and Cocaine use disorder, moderate, in sustained remission F14.21 [facility] [address] [place] [id number] [address] [place] [address] Sep, Major depressive disorder, r ecurrent episode, moderate F33.1 [facility] [address] [id number] [address] [place] [address] [id number] Aug, [facility] [address] [facility] [id number] [address] [place] [phone] Jul, Dysuria R30.0 [facility] [address] [facility] [id number] [address] [place] [id number] Jul, Major depressive disorder, r ecurrent episode, moderate F33.1 [facility] [address] [facility] [id number] [address] [place] [address] Jun, Major depressive disorder, r ecurrent episode, moderate F33.1 [facility] [address] [facility] [id number] [address] [place] [address] Jun, Major depressive disorder, r ecurrent episode, moderate F33.1 [place] [address] [place] [id number] [address] [place] [address] Jun, Acute pain of left shoulder M25.512 and Cigarette nicotine dependence without complication F17.210 [facility] [address] [facility] [id number] [address] [place] [address] May, [facility] [address] [place] [id number] [address] [place] [address] May, Cocaine use disorder, modera te, in sustained remission F14.21 [facility] [address] [facility] [id number] [address] [place] [address] May, [facility] [address] [place] [address] [facility] [id number] [place] [address] May, Dental examination Z01.20 [facility] [address] [id number] [address] [place] [address] [id number] May, Dental examination Z01.20 an d Caries K02.9 [facility] [address] [place] [id number] [address] [place] [address] May, Common wart B07.8 [facility] [address] [place] [id number] [address] [place] [address] May, [place] [address] [place] [id number] [place] [address] Apr, Cocaine use disorder, modera te, in sustained remission F14.21 [place] [address] [place] [id number] [address] [place] [address] Apr, [facility] [address] [id number] 13 Apr, 2018 Dental examination Z01.20 [facility] [address] [id number] 10 Mar, 2018 Encounter for dental exam an d cleaning w/o abnormal findings Z01.20 [place] [address] [address] Mar, [place] [address] [address] Feb, Cocaine use disorder, modera te, in sustained remission F14.21 ; Opioid use disorder, moderate, in sustained remission F11.21 ; Alcohol use disorder, mild, in sustained remission F10.11 ; Tobacco use Z72.0 ; PTSD (post- traumatic stress disorder) F43.10 ; Methamphetamine use disorder, severe, in sustained remission F15.21 ; Generalized anxiety disorder F41.1 ; Cannabis abuse F12.10 and Major depressive disorder, recurrent episode, moderate F33.1 [place] [address] [place] [id number] [address] [place] [address] Jan, Cocaine use disorder, modera te, in sustained remission F14.21 [place] [address] [address] Jan, Cocaine use disorder, modera te, in sustained remission F14.21 ; Opioid use disorder, moderate, in sustained remission F11.21 ; Alcohol use disorder, mild, in sustained remission F10.11 ; Tobacco use Z72.0 ; PTSD (post- traumatic stress disorder) F43.10 ; Methamphetamine use disorder, severe, in sustained remission F15.21 ; Generalized anxiety disorder F41.1 ; Cannabis abuse F12.10 and Major depressive disorder, recurrent episode, moderate F33.1 [place] [address] [place] [id number] [address] [place] [address] Jan, Dysuria R30.0 and GERD with esophagitis K21.0 [place] [id number] [address] [place] [address] December, Major depressive disorder, r ecurrent episode, moderate F33.1 [place] [address] [place] [id number] [address] [place] [address] December, [place] [address] [address] December, Major depressive disorder, r ecurrent episode, moderate F33.1 ; Generalized anxiety disorder F41.1 ; Cannabis abuse F12.10 ; PTSD (post- traumatic stress disorder) F43.10 ; Methamphetamine use disorder, severe, in sustained remission F15.21 ; Cocaine use disorder, moderate, in sustained remission F14.21 ; Opioid use disorder, moderate, in sustained remission F11.21 ; Alcohol use disorder, mild, in sustained remission F10.11 and Tobacco use Z72.0 [place] [address] [place] [id number] [address] [place] [address] Nov, [facility] [address] [place] [id number] [place], [place] [address] Nov, [place] [address] [place] [id number] [address] [place] [phone] Nov, Wellness examination Z00.00 ; Encounter for immunization Z23 ; Screening for osteoporosis Z13.820 ; Screening for breast cancer Z12.31 and Left breast lump N63.20 [facility] [address] [facility] [id number] [address] [place] [address] [id number] Oct, Dental examination Z01.20 [facility] [address] [place] [address] Oct, [facility] [address] [place] [address] Oct, [facility] [address] [place] [id number] [address] [place] [address] Sep, [facility] [address] [place] [id number] [address] [place] [address] Sep, [facility] [address] [address] Sep, Left otitis media with effus ion H65.92 ; Acute suppurative otitis media of right ear without spontaneous rupture of tympanic membrane, recurrence not specified H66.001 ; Dizziness R42 and Fatigue 780.79 [facility] [address] [place] [id number] [address] [place] [address] Aug, Major depressive disorder, r ecurrent episode, moderate F33.1 ; Generalized anxiety disorder F41.1 ; Cannabis abuse F12.10 ; PTSD (post- traumatic stress disorder) F43.10 ; Methamphetamine use disorder, severe, in sustained remission F15.21 ; Cocaine use disorder, moderate, in sustained remission F14.21 ; Opioid use disorder, moderate, in sustained remission F11.21 ; Alcohol use disorder, mild, in sustained remission F10.11 and Tobacco use Z72.0 [facility] [address] [place] [address] Aug, Ingrown right big toenail L6 0.0 [facility] [address] [place] [id number] Aug, [facility] [address] [place] [id number] [address] [place] [address] Aug, PTSD (post-traumatic stress disorder) F43.10 [facility] [address] [place] [id number] [address] [place] [address] Aug, Major depressive disorder, r ecurrent episode, moderate F33.1 ; Generalized anxiety disorder F41.1 and Cannabis abuse F12.10 [facility] [address] [id number] [address] [place] [address] Jul, [facility] [address] [id number] [address] [place] [id number] Jul, [facility] [address] [facility] [id number] [address] [place] [address] Jul, [facility] [address] [facility] [id number] [address] [place] [address] Jul, Major depressive disorder, r ecurrent episode, moderate F33.1 ; Generalized anxiety disorder F41.1 and Cannabis abuse F12.10 [facility] [address] [facility] [id number] [address] [place] [address] Jul, [facility] [address] [facility] [id number] [address] [place] [address] Jul, [facility] [address] [facility] [id number] [address] [place] [address] Jul, Hyperlipidemia 272.4 [facility] [address] [facility] [id number] [address] [place] [address] Jul, PTSD (post-traumatic stress disorder) F43.10 [facility] [address] [facility] [id number] [address] [place] [address] Jul, Tobacco use Z72.0 ; Alcohol use [...] disorder F41.1 and Cannabis abuse F12.10 [facility] [address] [facility] [id number] [address] [place] [address] Jul, [facility] [address] [facility] [id number] [address] [place] [address] Jul, Dysuria R30.0 and Mixed hype rlipidemia E78.2 [facility] [address] [facility] [id number] [address] [place] [address] Jun, Major depressive disorder, r ecurrent episode, moderate F33.1 ; Generalized anxiety disorder F41.1 and Cannabis abuse F12.10 [facility] [address] [facility] [id number] [address] [place] [address] Jun, [facility] [address] [facility] [id number] [address] [place] [address] Jun, Generalized anxiety disorder F41.1 ; Major depressive disorder, recurrent episode, moderate F33.1 ; PTSD (post-traumatic stress disorder) F43.10 ; Opioid use disorder, moderate, in sustained remission F11.21 ; Cannabis abuse F12.10 ; Alcohol use disorder, mild, in sustained remission F10.11 ; Methamphetamine use disorder, severe, in sustained remission F15.21 ; Cocaine use disorder, moderate, in sustained remission F14.21 and Tobacco use Z72.0 [facility] [address] [facility] [id number] [address] [place] [phone] Jun, Major depressive disorder, r ecurrent episode, moderate F33.1 ; Generalized anxiety disorder F41.1 and Cannabis abuse F12.10 [facility] [address] [facility] [id number] [address] [place] [address] Jun, [facility] [address] [facility] [id number] [address] [place] [id number] Jun, [facility] [address] [facility] [id number] [address] [place] [address] Jun, Major depressive disorder, r ecurrent episode, moderate F33.1 ; Generalized anxiety disorder F41.1 and Cannabis abuse F12.10 [facility] [address] [id number] [address] [place] [id number] Mar, Dental examination Z01.20 [facility] [address] [id number] [address] [place] [address] [id number] Feb, Dental examination Z01.20 [facility] [address] [id number] [address] [place] [id number] Mar, [facility] [address] [id number] [address] [place] [phone] Mar, [facility] [address] [facility] [id number] [address] [place] [id number] 15 Feb, 2015 Hyperlipidemia 272.4 and Pre diabetes 790.29 [facility] [address] [id number] [address] [place] [address] Feb, Fatigue 780.79 and Hyperlipi demia 272.4 [facility] [address] [facility] [id number] [address] [place] [address] Feb, Lumbago 724.2 ; Hyperlipidem ia 272.4 ; Insomnia 780.52 and Fatigue 780.79 [facility] [address] [facility] [id number] [address] [place] [address] Nov, [facility] [address] [facility] [id number] [address] [place] [address] Nov, [facility] [address] [facility] [id number] [address] [place] [address] Mar, [facility] [address] [facility] [id number] [address] [place] [phone] Mar, [facility] [address] [facility] [id number] [address] [place] [phone] Jan, [facility] [address] [facility] [id number] [address] [place] [phone] Jan, [facility] [address] [facility] [id number] [address] [place] [address] December, [facility] [address] [facility] [id number] [address] [place] [phone] December, [facility] [address] [facility] [id number] [address] [place] [phone] Nov, [facility] [address] [id number] [facility] [place] [address] 30 Nov, 2013 [facility] [address] [id number] [facility] [place] [address] Nov, [facility] [address] [id number] [facility] [place] [address] Nov, [facility] [address] [id number] [facility] [place] [address] Nov, [facility] [address] [id number] [facility] [place] [address] Nov, [facility] [address] [id number] [facility] [place] [address] Oct, [facility] [address] [id number] [address] [place] [address], [place] [address] 31 Oct, 2013 [facility] [address] [id number] [address] [place] [address], [place] [address] 20 Oct, 2013 [facility] [address] [id number] [address] [place] [address], [place] [address] 20 Oct, 2013 [facility] [address] [id number] [address] [place] [address], [place] [address] 19 Oct, 2013 [facility] [address] [id number] [address] [place] [address], [place] [address] 19 Oct, 2013 [facility] [address] [id number] [address] [place] [address], [place] [address] 12 Oct, 2013 [facility] [address] [id number] [address] [place] [address], [place] [address] 12 Oct, 2013 [facility] [address] [id number] [address] [place] [address], [place] [address] 11 Oct, 2013 [facility] [address] [id number] [address] [place] [address], [place] [id number] 04 Oct, 2013 [facility] [address] [id number] [address] [place] [address], [place] [address] Oct, [facility] [address] [id number] [address] [place] [address], [place] [address] Oct, [facility] [address] [id number] [address] [place] [address], [place] [address] Oct, [facility] [address] [id number] [address] [place] [address], [place] [address] 24 Sep, 2013 [facility] [address] [id number] [address] [place] [address], [place] [address] 24 Sep, 2013 [facility] [address] [id number] [address] [place] [address], [place] [address] Sep, [facility] [address] [id number] 21 [place] [address], [place] [address] Sep, [facility] [address] [id number] [address] [place] [address], [place] [address] Sep, [facility] [address] [id number] [address] [place] [address], [place] [address] Sep, [facility] [address] [id number] [address] [place] [address], [place] [address] 18 Sep, 2013 [facility] [address] [id number] [address] [place] [address], [place] [address] 18 Sep, 2013 [facility] [address] [id number] [address] [place] [address], [place] [address] 14 Sep, 2013 [facility] [address] [id number] [address] [place] [address], [place] [address] 14 Sep, 2013 [facility] [address] [id number] [address] [place] [address], [place] [address] 14 Sep, 2013 [facility] [address] [id number] [address] [place] [address], [place] [address] 14 Sep, 2013 [facility] [address] [id number] [address] [place] [address], [place] [address] 14 Sep, 2013 [facility] [address] [id number] [address] [place] [address], [place] [address] 14 Sep, 2013 [facility] [address] [id number] [address] [place] [address], [place] [address] Sep, [facility] [address] [id number] [address] [place] [address], [place] [address] Sep, [facility] [address] [id number] [address] [place] [address], [place] [address] Sep, [facility] [address] [id number] [address] [place] [address], [place] [address] Sep, [facility] [address] [id number] [address] [place] [address], [place] [address] Sep, [facility] [address] [id number] [address] [place] [address], [place] [address] Sep, [facility] [address] [id number] [address] [place] [address], [place] [address] Aug, [facility] [address] [id number] [address] [place] [address], [place] [address] Aug, [facility] [address] [id number] [address] [place] [address], [place] [address] Aug, [facility] [address] [id number] [address] [place] [address], [place] [address] Aug, [facility] [address] [id number] [address] [place] [address], [place] [address] Aug, [facility] [address] [id number] [address] [place] [address], [place] [address] Jul, [facility] [address] [id number] [address] [place] [address], [place] [address] Jul, [facility] [address] [id number] [address] [place] [address], [place] [address] Jul, [facility] [address] [id number] [address] [place] [address], [place] [address] Jul, [facility] [address] [id number] [address] [place] [address], [place] [address] Jul, [facility] [address] [id number] [address] [place] [address], [place] [address] Jul, [facility] [address] [id number] [address] [place] [address], [place] [address] Jul, [facility] [address] [id number] [address] [place] [address], [place] [address] Jul, [facility] [address] [id number] [address] [place] [address], [place] [address] Jul, [facility] [address] [id number] [address] [place] [address], [place] [address] Jun, [facility] [address] [id number] [address] [place] [address], [place] [address] Jun, [facility] [address] [id number] [address] [place] [address], [place] [address] Jun, [facility] [address] [id number] [address] [place] [address], [place] [address] Jun, [facility] [address] [id number] [address] [place] [address], [place] [address] Jun, [facility] [address] [id number] [address] [place] [address], [place] [address] Jun, [facility] [address] [id number] [address] [place] [address] Jun, [facility] [address] [id number] [address] [place] [address], [place] [address] Jun, [facility] [address] [id number] [address] [place] [address], [place] [address] Jun, [facility] [address] [id number] [address] [place] [address] Jun, [facility] [address] [id number] [address] [place] [address], [place] [address] May, [facility] [address] [id number] [address] [place] [address], [place] [address] May, [facility] [address] [id number] [address] [place] [address], [place] [address] May, [facility] [address] [id number] [address] [place] [address], [place] [address] May, [facility] [address] [id number] [address] [place] [address], [place] [address] 16 May, 2013 [facility] [address] [id number] [address] [place] [address], [place] [address] May, [facility] [address] [id number] [address] [place] [address], [place] [address] May, [facility] [address] [id number] [address] [place] [address], [place] [address] May, [facility] [address] [id number] [address] [place] [address], [place] [address] May, [facility] [address] [id number] [address] [place] [address], [place] [address] 26 Apr, 2013 [facility] [address] [id number] [address] [place] [address], [place] [address] 16 Apr, 2013 [facility] [address] [id number] [address] [place] [address], [place] [address] 12 Apr, 2013 [facility] [address] [id number] [address] [place] [address], [place] [address] 06 Apr, 2013 [facility] [address] [id number] [address] [place] [address], [place] [address] 30 Mar, 2013 [facility] [address] [id number] [address] [place] [address], [place] [address] 29 Mar, 2013 [facility] [address] [id number] [address] [place] [address], [place] [address] Mar, [facility] [address] [id number] [address] [place] [address], [place] [address] Mar, [facility] [address] [id number] [address] [place] [address], [place] [address] Mar, [facility] [address] [id number] [address] [place] [address], [place] [address] Mar, [facility] [address] [id number] [address] [place] [address], [place] [address] Mar, [facility] [address] [id number] [address] [place] [address], [place] [address] Feb, [facility] [address] [id number] [address] [place] [address], [place] [address] Feb, [facility] [address] [id number] [address] [place] [address], [place] [address] Feb, [facility] [address] [id number] [address] [place] [address], [place] [address] Feb, [facility] [address] [id number] [address] [place] [address], [place] [address] Feb, [facility] [address] [id number] [address] [place] [address], [place] [address] Feb, [facility] [address] [id number] [address] [place] [address], [place] [address] Feb, [facility] [address] [id number] [address] [place] [address], [place] [address] Feb, [facility] [address] [id number] [address] [place] [address], [place] [address] Feb, [facility] [address] [id number] [address] [place] [address], [place] [address] Feb, [facility] [address] [id number] [address] [place] [address], [place] [address] Feb, [facility] [address] [id number] [address] [place] [address], [place] [address] Jan, [facility] [address] [id number] [address] [place] [address], [place] [address] Jan, [facility] [address] [id number] [address] [place] [address], [place] [address] December, [facility] [address] [id number] [address] [place] [address], [place] [address] December, [facility] [address] [id number] [address] [place] [address], [place] [address] Nov, [facility] [address] [id number] [address] [place] [address], [place] [address] Nov, [facility] [address] [id number] [address] [place] [address], [place] [address] Oct, [facility] [address] [id number] [address] [place] [address], [place] [address] Oct, [facility] [address] [id number] [address] [place] [address], [place] [address] Oct, [facility] [address] [id number] [address] [place] [address], [place] [address] Oct, [facility] [address] [id number] [address] [place] [address], [place] [address] Sep, [facility] [address] [id number] [address] [place] [address], [place] [address] Sep, [facility] [address] [id number] [address] [place] [address], [place] [address] Sep, [facility] [address] [id number] [address] [place] [address], [place] [address] Sep, [facility] [address] [id number] [address] [place] [address], [place] [address] Aug, [facility] [address] [id number] [address] [place] [address] [address] Aug, [facility] [address] [id number] [address] [place] [address], [place] [address] Jul, [facility] [address] [id number] [address] [place] [address], [place] [address] Jul, [facility] [address] [id number] [address] [place] [address], [place] [address] Jul, [facility] [address] [id number] [address] [place] [address], [place] [address] Jul, [facility] [address] [id number] [address] [place] [address], [place] [address] Jul, [facility] [address] [id number] [address] [place] [address], [place] [address] Jul, [facility] [address] [id number] [address] [place] [address], [place] [address] Jun, [facility] [address] [id number] [address] [place] [address], [place] [address] Jun, [facility] [address] [id number] [address] [place] [address], [place] [address] Jun, [facility] [address] [id number] [address] [place] [address], [place] [address] Jun, [facility] [address] [id number] [address] [place] [address], [place] [address] Jun, [facility] [address] [id number] [address] [place] [address] May, [facility] [address] [id number] [address] [place] [address], [place] [address] May, [facility] [address] [id number] [address] [place] [address], [place] [address] May, [facility] [address] [id number] [address] [place] [address], [place] [address] May, [facility] [address] [id number] [address] [place] [address], [place] [address] May, [facility] [address] [id number] [address] [place] [address], [place] [address] May, [facility] [address] [id number] [address] [place] [address], [place] [address] May, [facility] [address] [id number] [address] [place] [address], [place] [address] May, [facility] [address] [id number] [address] [place] [address], [place] [address] Mar, [facility] [address] [id number] [address] [place] [address], [place] [address] Mar, [facility] [address] [id number] [address] [place] [address], [place] [address] Mar, [facility] [address] [id number] [address] [place] [address], [place] [address] Feb, [facility] [address] [id number] [address] [place] [address], [place] [address] Feb, [facility] [address] [id number] [address] [place] [address], [place] [address] Feb, [facility] [address] [id number] [address] [place] [address], [place] [address] Feb, [facility] [address] [id number] [address] [place] [address], [place] [address] Jan, [facility] [address] [id number] [address] [place] [address], [place] [address] Jan, [facility] [address] [id number] [address] [place] [address], [place] [address] Jan, [facility] [address] [id number] [address] [place] [address], [place] [address] December, [facility] [address] [id number] [address] [place] [address], [place] [address] Nov, [facility] [address] [id number] [address] [place] [address], [place] [address] Oct, [facility] [address] [id number] [address] [place] [address], [place] [address] Oct, [facility] [address] [id number] [address] [place] [address], [place] [address] Oct, [facility] [address] [id number] [address] [place] [address], [place] [address] Oct, [facility] [address] [id number] [address] [place] [address], [place] [address] Aug, [facility] [address] [id number] [address] [place] [address], [place] [address] Aug, [facility] [address] [id number] [address] [place] [address], [place] [address] Aug, [facility] [address] [id number] [address] [place] [address], [place] [address] Aug, [facility] [address] [id number] [address] [place] [address], [place] [address] Aug, [facility] [address] [id number] [address] [place] [address], [place] [address] Aug, [facility] [address] [id number] [address] [place] [address], [place] [address] Aug, [facility] [address] [id number] [address] [place] [address], [place] [address] Aug, [facility] [address] [id number] [address] [place] [address], [place] [address] Jul, [facility] [address] [id number] [address] [place] [address], [place] [address] Jun, [facility] [address] [id number] [address] [place] [address], [place] [address] Jun, [facility] [address] [id number] [address] [place] [address], [place] [address] 31 Jul, 2010 [facility] [address] [id number] [address] [place] [address], [place] [address] 22 Jul, 2010 [facility] [address] [id number] [address] [place] [address], [place] [address] 22 Jul, 2010 [facility] [address] [id number] [address] [place] [address], [place] [address] 14 Jul, 2010 [facility] [address] [id number] [address] [place] [address], [place] [address] 14 Jul, 2010 [facility] [address] [id number] [address] [place] [address], [place] [address] 24 Jun, 2010 [facility] [address] [id number] [address] [place] [address], [place] [address] May, [facility] [address] [id number] [address] [place] [address], [place] [address] Mar, [facility] [address] [id number] [address] [place] [address], [place] [address] Oct, [facility] [address] [id number] [address] [place] [address], [place] [address] Aug, [facility] [address] [id number] [address] [place] [address], [place] [address] 15 Jul, 2009 [facility] [address] [id number] [address] [place] [address], [place] [address] Jul, [facility] [address] [id number] [address] [place] [address] Jun, [facility] [address] [id number] [address] [place] [address], [place] [address] Jun, [facility] [address] [id number] [address] [place] [address], [place] [address] May, [facility] [address] [id number] [address] [place] [address], [place] [address] May, [facility] [address] [id number] [address] [place] [address] Mar, [facility] [address] [facility] [id number] [address] [place] [address] Mar, [facility] [address] [facility] [id number] [address] [place] [address] Oct, IMMUNIZATIONS No Known Immunizations SOCIAL HISTORY Never Assessed REASON FOR VISIT PLAN OF CARE VITAL SIGNS MEDICATIONS Unknown [...] lumbosacral spine Medical History fibromyalgia Medical History acid reflux Medical History PTSD Medical History Gastritis, Medical History Bronchitis Medical History Ulcers Medical History endometriosis/fibroids Medical History chrones Surgical History carpal tunnel release- bilateral- Dr Fish ordaz Surgical History Upper Lateral Release- Tennis Elbow- Dr Marquez Surgical History rotator cuff tear repair on left and right shoulder-- done at different times (2 years apart) - Dr Marquez Surgical History Spinal disc replacement L1- L5 - Dr Benito pantoja ([place]) Surgical History appendectomy 1983 Surgical History hysterectomy 1993 Surgical History dilatation and curettage Surgical History heart cath- Dr Shaw [address] Solano bowel and intestines [address] solano removed skin tag and cyst 2017 Surgical History Colonoscopy and upper GI 04/2019 Surgical History endoscopy 08/13/19 Hospitalization History Hospitalization for surgery only
--- OUTSIDE RECORDS SUMMARY | 2019-11-08 08:39 | XMS REPORT ---
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 Active 40062692 Problem Opioid use disorder, moderate, in sustained remission F11.21 Active 73138652 Problem Tobacco use Z72.0 Active 87061874 8 Problem Cocaine use disorder, moderate, in sustained remission F14.21 Active 83496704 Problem GERD with esophagitis K21.0 Active 522905318 Problem Prediabetes 790.29 Active 4463052 Problem PTSD (post-traumatic stress disorder) F43.10 Active 45935387 Problem Bipolar disorder F31.9 Active 137 94258 Problem Gastroesophageal reflux disease, esophagitis pre sence not specified K21.9 Active 050742669 Problem Menopausal disorder N95.9 Active 034817462 Problem Insomnia, unspecified type G47.00 Act avelina 104313909 Problem Cigarette nicotine dependence without complication F17.210 Active 94766194 Problem Cannabis abuse F12.10 Active 97971 009 Problem Irritable bowel syndrome with diarrhea K58.0 Active 059348292 Problem Acute pain of left shoulder M25.512 Ac tive 42348273 Problem Mixed hyperlipidemia E78.2 Active 983260140 Problem Generalized anxiety disorder F41.1 A ctive 57291116 Problem Arthritis M19.90 Active 9030653 Problem Other chronic pain G89.29 Active 8 0690310 Problem Fibromyalgia M79.7 Active 1599802 05 Problem Perimenopausal vasomotor symptoms N95.1 Active 693078148 ALLERGIES No Information ENCOUNTERS Encounter Location Date Diagnosis [facility] [address] [facility] [id number] [address] [place] [id number] Oct, [facility] [address] [facility] [id number] [address] [place] [id number] 12 Oct, 2019 Acute rhinosinusitis J01.90 ; Generalized anxiety disorder F41.1 ; Major depressive disorder, recurrent episode, moderate F33.1 ; Gastroesophageal reflux disease, esophagitis presence not specified K21.9 ; Irritable bowel syndrome with diarrhea K58.0 and Mixed hyperlipidemia E78.2 [facility] [address] [facility] [id number] [address] [place] [id number] 11 Oct, 2019 Viral upper respiratory trac t infection J06.9 [place] [address] [facility] [id number] [address] [place] [id number] 19 Sep, 2019 [place] [address] [place] [id number] [address] [place] [id number] 14 Sep, 2019 Major depressive disorder, r ecurrent episode, moderate F33.1 ; Generalized anxiety disorder F41.1 ; Irritable bowel syndrome with diarrhea K58.0 and Epigastric abdominal pain R10.13 [facility] [address] [place] [id number] [address] 24 May, 2019 Dental examination Z01.20 and Caries K02 .9 [place] [address] [place] [id number] [address] [place] [id number] 08 May, 2019 Right upper quadrant pain R1 0.11 and Mixed hyperlipidemia E78.2 [place] [address] [facility] [id number] [address] [place] [id number] Mar, Perimenopausal vasomotor sym ptoms N95.1 [place] [address] [place] [id number] [address] [place] [id number] Mar, [place] [address] [facility] [id number] [address] [place] [id number] Mar, [place] [address] [place] [id number] [address] [place] [id number] Mar, [place] [address] [place] [id number] [address] [place] [id number] Mar, Perimenopausal vasomotor sym ptoms N95.1 ; Irritable bowel syndrome with diarrhea K58.0 ; Insomnia, unspecified type G47.00 and Weight gain R63.5 [place] [address] [place] [id number] [place] [address] Feb, [place] [address] [address] Feb, [place] [address] [place] [id number] [place] [address] Jan, [place] [address] [place] [id number] [place] [address] Jan, Fibromyalgia M79.7 ; Insect bite (nonvenomous) of lower back and pelvis, sequela S30.860S ; Bitten or stung by nonvenomous insect and other nonvenomous arthropods, sequela W57.XXXS ; Arthritis M19.90 and Menopausal disorder N95.9 [place] [address] [place] [id number] [place] [address] Jan, [place] [address] [place] [id number] [address] [place] [id number] Jan, Mixed hyperlipidemia E78.2 [place] [address] [place] [id number] [address] [place] [id number] December, Screening for breast cancer Z12.31 and Breast lump N63.0 [place] [address] [place] [id number] [address] [place] [id number] December, Chest pain, unspecified type R07.9 [place] [address] [place] [id number] [address] [place] [id number] December, Chest pain, unspecified type R07.9 ; Gastroesophageal reflux disease, esophagitis presence not specified K21.9 and Left breast lump N63.20 [facility] [address] [place] [id number] [address] [place] [id number] December, [facility] [address] [place] [id number] December, Suprapubic abdominal pain R1 0.2 and Dysuria R30.0 [facility] [address] [place] [id number] [address] [place] [id number] December, [facility] [address] [place] [id number] [address] [place] [id number] December, Cannabis abuse F12.10 ; Gene ralized anxiety disorder F41.1 ; Methamphetamine use disorder, severe, in sustained remission F15.21 ; Alcohol use disorder, mild, in sustained remission F10.11 ; PTSD (post-traumatic stress disorder) F43.10 ; Cocaine use disorder, moderate, in sustained remission F14.21 and Bipolar disorder F31.9 [place] [address] [place] [id number] [address] [place] [id number] Nov, Major depressive disorder, r ecurrent episode, moderate F33.1 ; Cannabis abuse F12.10 ; Generalized anxiety disorder F41.1 ; Methamphetamine use disorder, severe, in sustained remission F15.21 ; Alcohol use disorder, mild, in sustained remission F10.11 ; PTSD (post-traumatic stress disorder) F43.10 and Cocaine use disorder, moderate, in sustained remission F14.21 [facility] [address] [place] [id number] [address] [place] [id number] Oct, Major depressive disorder, r ecurrent episode, moderate F33.1 ; Cannabis abuse F12.10 ; Generalized anxiety disorder F41.1 ; Methamphetamine use disorder, severe, in sustained remission F15.21 ; Alcohol use disorder, mild, in sustained remission F10.11 ; PTSD (post-traumatic stress disorder) F43.10 and Cocaine use disorder, moderate, in sustained remission F14.21 [facility] [address] [place] [id number] [address] [place] [id number] Sep, Major depressive disorder, r ecurrent episode, moderate F33.1 [facility] [address] [id number] [address] [place] [address] [id number] Aug, [facility] [address] [facility] [id number] [address] [place] [id number] Jul, Dysuria R30.0 [facility] [address] [facility] [id number] [address] [place] [id number] Jul, Major depressive disorder, r ecurrent episode, moderate F33.1 [facility] [address] [facility] [id number] [address] [place] [id number] Jun, Major depressive disorder, r ecurrent episode, moderate F33.1 [facility] [address] [facility] [id number] [address] [place] [id number] Jun, Major depressive disorder, r ecurrent episode, moderate F33.1 [place] [address] [place] [id number] [address] [place] [id number] Jun, Acute pain of left shoulder M25.512 and Cigarette nicotine dependence without complication F17.210 [facility] [address] [facility] [id number] [address] [place] [id number] May, [facility] [address] [place] [id number] [address] [place] [id number] May, Cocaine use disorder, modera te, in sustained remission F14.21 [facility] [address] [facility] [id number] [address] [place] [id number] May, [facility] [address] [place] [address] [facility] [id number] [place] [address] May, Dental examination Z01.20 [facility] [address] [id number] [address] [place] [address] [id number] May, Dental examination Z01.20 an d Caries K02.9 [facility] [address] [place] [id number] [address] [place] [id number] May, Common wart B07.8 [facility] [address] [place] [id number] [address] [place] [id number] May, [place] [address] [place] [id number] [place] [address] Apr, Cocaine use disorder, modera te, in sustained remission F14.21 [place] [address] [place] [id number] [address] [place] [id number] Apr, [facility] [address] [id number] 13 Apr, 2018 Dental examination Z01.20 [facility] [address] [id number] Mar, 2018 Encounter for dental exam an d cleaning w/o abnormal findings Z01.20 [place] [address] [address] Mar, [place] [address] [id number] Feb, Cocaine use disorder, modera te, in [...] Major depressive disorder, recurrent episode, moderate F33.1 [place] [address] [place] [id number] [address] [place] [id number] Jan, Cocaine use disorder, modera te, in sustained remission F14.21 [place] [address] [address] Jan, Cocaine use disorder, modera te, in [...] Major depressive disorder, recurrent episode, moderate F33.1 [place] [address] [place] [id number] [address] [place] [id number] Jan, Dysuria R30.0 and GERD with esophagitis K21.0 [place] [id number] [address] [place] [id number] December, Major depressive disorder, r ecurrent episode, moderate F33.1 [place] [address] [place] [id number] [address] [place] [id number] December, [place] [address] [address] December, Major depressive disorder, r ecurrent episode, [...] sustained remission F10.11 and Tobacco use Z72.0 [place] [address] [place] [id number] [address] [place] [id number] Nov, [facility] [address] [place] [id number] [place] [address] Nov, [place] [address] [place] [id number] [address] [place] [id number] Nov, Wellness examination Z00.00 ; Encounter for immunization Z23 ; Screening for osteoporosis Z13.820 ; Screening for breast cancer Z12.31 and Left breast lump N63.20 [facility] [address] [facility] [id number] [address] [place] [id number] Oct, Dental examination Z01.20 [facility] [address] [place] [id number] Oct, [facility] [address] [place] [address] Oct, [facility] [address] [place] [id number] [address] [place] [id number] Sep, [facility] [address] [place] [id number] [address] [place] [id number] Sep, [facility] [address] [address] Sep, Left otitis media with effus ion H65.92 ; Acute suppurative otitis media of right ear without spontaneous rupture of tympanic membrane, recurrence not specified H66.001 ; Dizziness R42 and Fatigue 780.79 [facility] [address] [place] [id number] [address] [place] [address] Aug, Major depressive disorder, r ecurrent episode, [...] sustained remission F10.11 and Tobacco use Z72.0 [facility] [address] [place] [id number] Aug, Ingrown right big toenail L6 0.0 [facility] [address] [place] [address] Aug, [facility] [address] [place] [id number] [address] [place] [id number] Aug, PTSD (post-traumatic stress disorder) F43.10 [facility] [address] [place] [id number] [address] [place] [id number] Aug, Major depressive disorder, r ecurrent episode, moderate F33.1 ; Generalized anxiety disorder F41.1 and Cannabis abuse F12.10 [facility] [address] [id number] [address] [place] [id number] Jul, [facility] [address] [id number] [address] [place] [id number] Jul, [facility] [address] [facility] [id number] [address] [place] [id number] Jul, [facility] [address] [facility] [id number] [address] [place] [id number] Jul, Major depressive disorder, r ecurrent episode, moderate F33.1 ; Generalized anxiety disorder F41.1 and Cannabis abuse F12.10 [facility] [address] [facility] [id number] [address] [place] [id number] Jul, [facility] [address] [facility] [id number] [address] [place] [id number] Jul, [facility] [address] [facility] [id number] [address] [place] [id number] Jul, Hyperlipidemia 272.4 [facility] [address] [facility] [id number] [address] [place] [id number] Jul, PTSD (post-traumatic stress disorder) F43.10 [facility] [address] [facility] [id number] [address] [place] [id number] Jul, Tobacco use Z72.0 ; Alcohol use disorder, mild, in sustained remission F10.11 ; Opioid use disorder, moderate, in sustained remission F11.21 ; Methamphetamine use disorder, severe, in sustained remission F15.21 ; Cocaine use disorder, moderate, in sustained remission F14.21 ; PTSD (post-traumatic stress disorder) F43.10 ; Major depressive disorder, recurrent episode, moderate F33.1 ; Generalized anxiety disorder F41.1 and Cannabis abuse F12.10 [facility] [address] [facility] [id number] [address] [place] [id number] Jul, [facility] [address] [facility] [id number] [address] [place] [id number] Jul, Dysuria R30.0 and Mixed hype rlipidemia E78.2 [facility] [address] [facility] [id number] [address] [place] [id number] Jun, Major depressive disorder, r ecurrent episode, moderate F33.1 ; Generalized anxiety disorder F41.1 and Cannabis abuse F12.10 [facility] [address] [facility] [id number] [address] [place] [id number] Jun, [facility] [address] [facility] [id number] [address] [place] [id number] Jun, Generalized anxiety disorder F41.1 ; Major depressive disorder, recurrent episode, moderate F33.1 ; PTSD (post-traumatic stress disorder) F43.10 ; Opioid use disorder, moderate, in sustained remission F11.21 ; Cannabis abuse F12.10 ; Alcohol use disorder, mild, 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 ; Methamphetamine use disorder, severe, in sustained remission F15.21 ; Cocaine use disorder, moderate, in sustained remission F14.21 and Tobacco use Z72.0 [facility] [address] [facility] [id number] [address] [place] [id number] Jun, Major depressive disorder, r ecurrent episode, moderate F33.1 ; Generalized anxiety disorder F41.1 and Cannabis abuse F12.10 [facility] [address] [facility] [id number] [address] [place] [id number] Jun, [facility] [address] [facility] [id number] [address] [place] [id number] Jun, [facility] [address] [facility] [id number] [address] [place] [phone] Jun, Major depressive disorder, r ecurrent episode, moderate F33.1 ; Generalized anxiety disorder F41.1 and Cannabis abuse F12.10 [facility] [address] [id number] [address] [place] [address] [id number] Mar, Dental examination Z01.20 [facility] [address] [id number] [address] [place] [address] [id number] Feb, Dental examination Z01.20 [facility] [address] [id number] [address] [place] [id number] Mar, [facility] [address] [id number] [address] [place] [id number] Mar, [facility] [address] [facility] [id number] [address] [place] [id number] 15 Feb, 2015 Hyperlipidemia 272.4 and Pre diabetes 790.29 [facility] [address] [id number] [address] [place] [id number] Feb, Fatigue 780.79 and Hyperlipi demia 272.4 [facility] [address] [facility] [id number] [address] [place] [id number] Feb, Lumbago 724.2 ; Hyperlipidem ia 272.4 ; Insomnia 780.52 and Fatigue 780.79 [facility] [address] [facility] [id number] [address] [place] [id number] Nov, [facility] [address] [facility] [id number] [address] [place] [id number] Nov, [facility] [address] [facility] [id number] [address] [place] [id number] Mar, [facility] [address] [facility] [id number] [address] [place] [id number] Mar, [facility] [address] [facility] [id number] [address] [place] [id number] Jan, [facility] [address] [facility] [id number] [address] [place] [id number] Jan, [facility] [address] [facility] [id number] [address] [place] [id number] December, [facility] [address] [facility] [id number] [address] [place] [phone] December, [facility] [address] [facility] [id number] [address] [place] [id number] Nov, [facility] [address] [id number] [facility] [address] 30 Nov, 2013 [facility] [address] [id number] [facility] [address] Nov, [facility] [address] [id number] [facility] [address] Nov, [facility] [address] [id number] [facility] [address] Nov, [facility] [address] [id number] [facility] [address] Nov, [facility] [address] [id number] [facility] [address] Oct, [facility] [address] [id number] [address] [place] [address], [place] [address] 31 Oct, 2013 [facility] [address] [id number] [address] [place] [address], [place] [id number] 20 Oct, 2013 [facility] [address] [id number] [address] [place] [address], [place] [id number] 20 Oct, 2013 [facility] [address] [id number] [address] [place] [address], [place] [id number] 19 Oct, 2013 [facility] [address] [id number] [address] [place] [address], [place] [id number] 19 Oct, 2013 [facility] [address] [id number] [address] [place] [address], [place] [address] 12 Oct, 2013 [facility] [address] [id number] [address] [place] [address], [place] [id number] 12 Oct, 2013 [facility] [address] [id number] [address] [place] [address], [place] [address] 11 Oct, 2013 [facility] [address] [id number] [address] [place] [address], [place] [id number] 04 Oct, 2013 [facility] [address] [id number] [address] [place] [address], [place] [address] Oct, [facility] [address] [id number] [address] [place] [address], [place] [address] Oct, [facility] [address] [id number] [address] [place] [address], [place] [id number] Oct, [facility] [address] [id number] [address] [place] [address], [place] [id number] 24 Sep, 2013 [facility] [address] [id number] [address] [place] [address], [place] [id number] 24 Sep, 2013 [facility] [address] [id number] [address] [place] [address], [place] [id number] Sep, [facility] [address] [id number] [address] [place] [address], [place] [address] Sep, [facility] [address] [id number] [address] [place] [address], [place] [address] Sep, [facility] [address] [id number] [address] [place] [address], [place] [address] Sep, [facility] [address] [id number] [address] [place] [address], [place] [id number] 18 Sep, 2013 [facility] [address] [id number] [address] [place] [address], [place] [id number] 18 Sep, 2013 [facility] [address] [id number] [address] [place] [address], [place] [address] 14 Sep, 2013 [facility] [address] [id number] [address] [place] [address], [place] [id number] 14 Sep, 2013 [facility] [address] [id number] [address] [place] [address], [place] [id number] 14 Sep, 2013 [facility] [address] [id number] [address] [place] [address], [place] [id number] 14 Sep, 2013 [facility] [address] [id number] [address] [place] [address], [place] [id number] 14 Sep, 2013 [facility] [address] [id number] [address] [place] [address], [place] [id number] 14 Sep, 2013 [facility] [address] [id number] [address] [place] [address], [place] [id number] Sep, [facility] [address] [id number] [address] [place] [address], [place] [id number] Sep, [facility] [address] [id number] [address] [place] [address], [place] [id number] Sep, [facility] [address] [id number] [address] [place] [address], [place] [id number] Sep, [facility] [address] [id number] [address] [place] [address], [place] [id number] Sep, [facility] [address] [id number] [address] [place] [address], [place] [id number] Sep, [facility] [address] [id number] [address] [place] [address], [place] [id number] Aug, [facility] [address] [id number] [address] [place] [address], [place] [id number] Aug, [facility] [address] [id number] [address] [place] [address], [place] [id number] Aug, [facility] [address] [id number] [address] [place] [address], [place] [id number] Aug, [facility] [address] [id number] [address] [place] [address], [place] [id number] Aug, [facility] [address] [id number] [place] [address], [place] [address] Jul, [facility] [address] [id number] [address] [place] [address], [place] [address] Jul, [facility] [address] [id number] [address] [place] [address], [place] [id number] Jul, [facility] [address] [id number] [address] [place] [address], [place] [address] Jul, [facility] [address] [id number] [address] [place] [address], [place] [address] Jul, [facility] [address] [id number] [address] [place] [address], [place] [address] Jul, [facility] [address] [id number] [address] [place] [address], [place] [address] Jul, [facility] [address] [id number] [address] [place] [address], [place] [address] Jul, [facility] [address] [id number] [address] [place] [address], [place] [address] Jul, [facility] [address] [id number] [address] [place] [address], [place] [address] Jun, [facility] [address] [id number] [address] [place] [address], [place] [address] Jun, [facility] [address] [id number] [address] [place] [address], [place] [address] Jun, [facility] [address] [id number] [address] [place] [address], [place] [address] Jun, [facility] [address] [id number] [address] [place] [address], [place] [address] Jun, [facility] [address] [id number] [address] [place] [address], [place] [id number] Jun, [facility] [address] [id number] [address] [place] [id number] Jun, [facility] [address] [id number] [address] [place] [address], [place] [address] Jun, [facility] [address] [id number] [address] [place] [address], [place] [address] Jun, [facility] [address] [id number] [address] [place] [id number] Jun, [facility] [address] [id number] [address] [place] [address], [place] [address] May, [facility] [address] [id number] [address] [place] [address], [place] [address] May, [facility] [address] [id number] [address] [place] [address], [place] [address] May, [facility] [address] [id number] [address] [place] [address], [place] [address] May, [facility] [address] [id number] [address] [place] [address], [place] [address] 16 May, 2013 [facility] [address] [id number] [address] [place] [address], [place] [address] May, [facility] [address] [id number] [address] [place] [address], [place] [address] May, [facility] [address] [id number] [address] [place] [address], [place] [address] May, [facility] [address] [id number] [address] [place] [address], [place] [address] May, [facility] [address] [id number] [address] [place] [address], [place] [id number] 26 Apr, 2013 [facility] [address] [id number] [address] [place] [address], [place] [id number] 16 Apr, 2013 [facility] [address] [id number] [address] [place] [address], [place] [address] 12 Apr, 2013 [facility] [address] [id number] [address] [place] [address], [place] [address] 06 Apr, 2013 [facility] [address] [id number] [address] [place] [address], [place] [address] 30 Mar, 2013 [facility] [address] [id number] [address] [place] [address], [place] [id number] 29 Mar, 2013 [facility] [address] [id number] [address] [place] [address], [place] [address] Mar, [facility] [address] [id number] [address] [place] [address], [place] [address] Mar, [facility] [address] [id number] [address] [place] [address], [place] [address] Mar, [facility] [address] [id number] [address] [place] [address], [place] [address] Mar, [facility] [address] [id number] [address] [place] [address], [place] [address] Mar, [facility] [address] [id number] [address] [place] [address], [place] [address] Feb, [facility] [address] [id number] [address] [place] [address], [place] [address] Feb, [facility] [address] [id number] [address] [place] [address], [place] [address] Feb, [facility] [address] [id number] [address] [place] [address], [place] [id number] Feb, [facility] [address] [id number] [address] [place] [address], [place] [address] Feb, [facility] [address] [id number] [address] [place] [address], [place] [address] Feb, [facility] [address] [id number] [address] [place] [address], [place] [address] Feb, [facility] [address] [id number] [address] [place] [address], [place] [address] Feb, [facility] [address] [id number] [address] [place] [address], [place] [address] Feb, [facility] [address] [id number] [address] [place] [address], [place] [address] Feb, [facility] [address] [id number] [address] [place] [address], [place] [id number] Feb, [facility] [address] [id number] [address] [place] [address], [place] [address] Jan, [facility] [address] [id number] [address] [place] [address], [place] [address] Jan, [facility] [address] [id number] [address] [place] [address], [place] [address] December, [facility] [address] [id number] [address] [place] [address], [place] [address] December, [facility] [address] [id number] [address] [place] [address], [place] [address] Nov, [facility] [address] [id number] [address] [place] [address], [place] [address] Nov, [facility] [address] [id number] [address] [place] [address], [place] [address] Oct, [facility] [address] [id number] [address] [place] [address], [place] [address] Oct, [facility] [address] [id number] [address] [place] [address], [place] [address] Oct, [facility] [address] [id number] [address] [place] [address], [place] [address] Oct, [facility] [address] [id number] [address] [place] [address], [place] [address] Sep, [facility] [address] [id number] [address] [place] [address], [place] [address] Sep, [facility] [address] [id number] [address] [place] [address], [place] [address] Sep, [facility] [address] [id number] [address] [place] [address], [place] [address] Sep, [facility] [address] [id number] [address] [place] [address], [place] [address] Aug, [facility] [address] [id number] [address] [place] [address] [address] Aug, [facility] [address] [id number] [address] [place] [address], [place] [address] Jul, [facility] [address] [id number] [address] [place] [address], [place] [address] Jul, [facility] [address] [id number] [address] [place] [address], [place] [address] Jul, [facility] [address] [id number] [address] [place] [address], [place] [address] Jul, [facility] [address] [id number] [address] [place] [address], [place] [id number] Jul, [facility] [address] [id number] [address] [place] [address], [place] [address] Jul, [facility] [address] [id number] [address] [place] [address], [place] [address] Jun, [facility] [address] [id number] [address] [place] [address], [place] [address] Jun, [facility] [address] [id number] [address] [place] [address], [place] [address] Jun, [facility] [address] [id number] [address] [place] [address], [place] [address] Jun, [facility] [address] [id number] [address] [place] [address], [place] [address] Jun, [facility] [address] [id number] [address] [place] [id number] May, [facility] [address] [id number] [address] [place] [address], [place] [address] May, [facility] [address] [id number] [address] [place] [address], [place] [address] May, [facility] [address] [id number] [address] [place] [address], [place] [address] May, [facility] [address] [id number] [address] [place] [address], [place] [address] May, [facility] [address] [id number] [address] [place] [address], [place] [address] May, [facility] [address] [id number] [address] [place] [address], [place] [address] May, [facility] [address] [id number] [address] [place] [address], [place] [address] May, [facility] [address] [id number] [address] [place] [address], [place] [address] Mar, [facility] [address] [id number] [address] [place] [address], [place] [address] Mar, [facility] [address] [id number] [address] [place] [address], [place] [address] Mar, [facility] [address] [id number] [address] [place] [address], [place] [address] Feb, [facility] [address] [id number] [address] [place] [address], [place] [id number] Feb, [facility] [address] [id number] [address] [place] [address], [place] [id number] Feb, [facility] [address] [id number] [address] [place] [address], [place] [address] Feb, [facility] [address] [id number] [address] [place] [address], [place] [address] Jan, [facility] [address] [id number] [address] [place] [address], [place] [address] Jan, [facility] [address] [id number] [address] [place] [address], [place] [address] Jan, [facility] [address] [id number] [address] [place] [address], [place] [address] December, [facility] [address] [id number] [address] [place] [address], [place] [address] Nov, [facility] [address] [id number] [address] [place] [address], [place] [address] Oct, [facility] [address] [id number] [address] [place] [address], [place] [address] Oct, [facility] [address] [id number] [address] [place] [address], [place] [address] Oct, [facility] [address] [id number] [address] [place] [address], [place] [address] Oct, [facility] [address] [id number] [address] [place] [address], [place] [address] Aug, [facility] [address] [id number] [address] [place] [address], [place] [address] Aug, [facility] [address] [id number] [address] [place] [address], [place] [address] Aug, [facility] [address] [id number] [address] [place] [address], [place] [address] Aug, [facility] [address] [id number] [address] [place] [address], [place] [address] Aug, [facility] [address] [id number] [address] [place] [address], [place] [address] Aug, [facility] [address] [id number] [address] [place] [address], [place] [address] Aug, [facility] [address] [id number] [address] [place] [address], [place] [address] Aug, [facility] [address] [id number] [address] [place] [address], [place] [address] Jul, [facility] [address] [id number] [address] [place] [address], [place] [address] Jun, [facility] [address] [id number] [address] [place] [address], [place] [address] Jun, [facility] [address] [id number] [address] [place] [address], [place] [address] 31 Jul, 2010 [facility] [address] [id number] [address] [place] [address], [place] [address] 22 Jul, 2010 [facility] [address] [id number] [address] [place] [address], [place] [id number] 22 Jul, 2010 [facility] [address] [id number] [address] [place] [address], [place] [address] 14 Jul, 2010 [facility] [address] [id number] [address] [place] [address], [place] [address] 14 Jul, 2010 [facility] [address] [id number] [address] [place] [address], [place] [id number] 24 Jun, 2010 [facility] [address] [id number] [address] [place] [address], [place] [address] May, [facility] [address] [id number] [address] [place] [address], [place] [address] Mar, [facility] [address] [id number] [address] [place] [address], [place] [address] Oct, [facility] [address] [id number] [address] [place] [address], [place] [id number] Aug, [facility] [address] [id number] [address] [place] [address], [place] [id number] 15 Jul, 2009 [facility] [address] [id number] [address] [place] [address], [place] [address] Jul, [facility] [address] [id number] [address] [place] [id number] Jun, [facility] [address] [id number] [address] [place] [address], [place] [address] Jun, [facility] [address] [id number] [address] [place] [address], [place] [address] May, [facility] [address] [id number] [address] [place] [address], [place] [address] May, [facility] [address] [id number] [address] [place] [id number] Mar, [facility] [address] [facility] [id number] [address] [place] [id number] Mar, [facility] [address] [facility] [id number] [address] [place] [id number] Oct, IMMUNIZATIONS No Known Immunizations SOCIAL HISTORY Never Assessed REASON FOR VISIT PLAN OF CARE VITAL SIGNS MEDICATIONS Unknown Medications RESULTS No Results PROCEDURES Procedure Date Ordered Result Body Site COMPUTER DX MAMMOGRAM ADD-ON December 03, 2012 INSTRUCTIONS MEDICATIONS ADMINISTERED No Known Medications MEDICAL [...] replacement L1- L5 - Dr Benito pantoja ([place]) Surgical History appendectomy 1983 Surgical History hysterectomy 1993 Surgical History dilatation and curettage Surgical History heart cath- Dr Shaw [address] Solano bowel and intestines [address] solano removed skin tag and cyst 2017 Surgical History Colonoscopy and upper GI 04/2019 Surgical History endoscopy 08/13/19 Hospitalization History Hospitalization for surgery only
--- OUTSIDE RECORDS SUMMARY | 2019-11-08 08:39 | XMS REPORT ---
Author Author [employer]. Organization [employer]. Address [address] [address] Care Team Providers Care Drier Operator Helper Name Role Phone SUHAS HERNANDEZ Unavailable FIGUEROA ESQUEDA Unavailable Unavailable SUHAS HERNANDEZ Unavailable DON GUADALUPE Unavailable FIGUEROA ESQUEDA Unavailable SUHAS HERNANDZE Unavailable RK MARQUEZ Unavailable KACIE MONSON Unavailable JOSE EMANUEL Unavailable JOSE EMANUEL Unavailable WILD RODRIGUEZ Unavailable JOSE EMANUEL Unavailable WILD RODRIGUEZ Unavailable WILD RODRIGUEZ Unavailable TAMI CARTERYLA Unavailable RAUL VASQUEZ Unavailable WILD RODRIGUEZ Unavailable WILD RODRIGUEZ Unavailable WILD RODRIGUEZ Unavailable WILD RODRIGUEZ Unavailable WILD RODRIGUEZ Unavailable JOSE EMANUEL Unavailable WILD RODRIGUEZ Unavailable BUD EMANUELWIN Unavailable ANGLENADIA, VASQUEZ Unavailable HOLDEN SAPULDING Unavailable WILD RODRIGUEZ Unavailable WILD RODRIGUEZ Unavailable ANGLENADIA, VASQUEZ Unavailable JOSE EMANUEL Unavailable ANGLENADIA VASQUEZ Unavailable MICHAEL, WILD Unavailable ANGLETON, VASQUEZ Unavailable KACIE MONSON Unavailable KEELY Weller Unavailable KEELY Weller Unavailable ANGLETON, VASQUEZ Unavailable MICHAEL WILD Unavailable ANGLETON, VASQUEZ Unavailable ANGLETON, VASQUEZ Unavailable MICHAEL WILD Unavailable ANGLETON, VASQUEZ Unavailable ANGLETON, VASQUEZ Unavailable MAYELIN ARAGON Unavailable Unavailable MICHAEL WILD Unavailable BRENT MOCTEZUMA Unavailable Unavailable ANGLETON, VASQUEZ Unavailable WILD RODRIGUEZ Unavailable MICHAEL WILD Unavailable ANGLETON, VASQUEZ Unavailable MELISSA DAHL Unavailable MELISSA COLINDRES Unavailable WILD RODRIGUEZ Unavailable MICHAEL WILD Unavailable RK MARQUEZ Unavailable Unavailable WILD RODRIGUEZ Unavailable ANGLETON, VASQUEZ Unavailable ANGLETON, VASQUEZ Unavailable ANGLETON, VASQUEZ Unavailable RK MARQUEZ Unavailable ROSALIE BELLO DO Unavailable Unavailable Migration, Doctor Unavailable Unavailable Migration, Doctor Unavailable Unavailable Migration, Doctor Unavailable Unavailable Migration, Doctor Unavailable Unavailable Migration, Doctor Unavailable Unavailable Migration, Doctor Unavailable Unavailable Migration, Doctor Unavailable Unavailable Migration, Doctor Unavailable Unavailable Migration, Doctor Unavailable Unavailable Migration, Doctor Unavailable Unavailable Migration, Doctor Unavailable Unavailable Migration, Doctor Unavailable Unavailable Migration, Doctor Unavailable Unavailable Migration, Doctor Unavailable Unavailable RK MARQUEZ PCP Migration, Doctor Unavailable Unavailable Migration, Doctor Unavailable Unavailable Migration, Doctor Unavailable Unavailable RK MARQUEZ JR Unavailable Unavailable Migration, Doctor Unavailable Unavailable MICHAELWILD T Unavailable Unavailable Migration, Doctor Unavailable Unavailable DON GUADALUPE Unavailable ANAYELI, DON Unavailable YISSEL MARSHALL, CINDY Gordon Unavailable Unavailable VASQUEZ LEWIS Unavailable JESSE CLIFFORD Unavailable Unavailable [facility] [phone] JESSE CLIFFORD SOFTWARE WRITER Unavailable Unavailable LISA ADAMES Unavailable Unavailable ANAYELI, DON Unavailable DORIS HUNTER DO Unavailable Unavailable JOLANTA MARSHALL, MARIANNE Quevedo Unavailable Unavailable EMERITA PREEZ, GEORGIANA Nassar Unavailable Unavailable DAVID MARSHALL, SUHAS Torrez Unavailable Unavailable JOO FARMER, JERO Torrez Unavailable Unavailab NERIS Nixon SOFTWARE WRITER Unavailable Unavailable MAYUR FARMER, MAYELIN Medina Unavailable Unavailable TAHIRA MASRHALL, RAMON Torrez Unavailable Unavailable [facility] Unavailable Unavailable RK MARQUEZ Unavailable Unavailable RK MARQUEZ Unavailable Unavailable OPHELIA MARSHALL, KALPANA Nassar Unavailable Unavailable KEELY GARG Unavailable Unavailable ANATOLIY REYES Unavailable Unavailable DHEERAJ MARSHALL, FIGUEROA Craig Unavailable Unavailable ACE PEREZ, ROSALIE Edward Unavailable Unavailable PETER PEREZ, EMMY Torrez Unavailable Unavailable ANAYELI, DON Unavailable ANAYELI, DON Unavailable ANAYELI, DON Unavailable ANAYELI, DON Unavailable ANAYELI, DON Unavailable ANAYELI, DON Unavailable ANAYELI, DON Unavailable zzSANCHEZ, EDIS Unavailable ANAYELI, DON Unavailable zzSANCHEZ, EDIS Unavailable ANAYELI, DON Unavailable ANAYELI, DON Unavailable ANAYELI, DON Unavailable ANAYELI, DON Unavailable ANAYELI, DON Unavailable ANAYELI, DON Unavailable ANAYELI, DON Unavailable ANAYELI DON Unavailable ANAYELI, DON Unavailable ANAYELI, DON Unavailable ANAYELI, DON Unavailable ANAYELI DON Unavailable DOMINIQUE GUADALUPENDA Unavailable ANAYELI DON Unavailable Allergies Normalized Allergy Reported Date of Reaction(s) Care Provider Facility Allergy Type classification allergen Allergy Onset no information Unclassified STATIN DRUGS MODERATE TO [facility] (15 sources.) SEVERE, OTHER [facility] ([address]) DA (20 Unclassified Blibjfs-Lgl-Ym 09-23-2015 - LEG CRAMPS no name no information sources.) a Reductase Inhibitor Medications Current Medications Medication Ingredient Drug Dose Dates Status Sig Sig Care Class(es) (Normalized) (Original) Provid er no fish oil no 2000 Active no Fish Oil no information Translation information mg information 1000 MG name (2 s: [ Fish Orally 2 (no sources.) Oil 1000 times a day phone) MG] 2capsule 12h Active metroNIDAZO metroNIDAZO Nitroimidaz 500 mg 01-11-20 Active no Metronidazol no LE 500 mg LE ole 18 - information e 500 mg name oral tablet Translation Antimicrobi 01-25-20 Orally Twice (n o (1 source.) s: [ al 18 a day 1 phone) Metronidazo tablet 12h le 500 mg] Jan, Jan, 14 days Active pantoprazol pantoprazol Proton Pump 40 mg 12-07-19 Active no Protonix 40 no e 40 mg e Inhibitor 18 information MG Orally nam e delayed Translation Once a day 1 (no release s: [ tablet 24h phone) oral tablet Protonix 40 December, (11 MG, 30 day(s) sources.) Protonix 40 Active MG] 40 mg Completed no Pantopra (no inform zole Tab phone) ation 40MG NOT APPLICAB LE 24 hr venlafaxine Serotonin 37.5 10-16-19 Active take 1 Effex or XR no venlafaxine Translation and mg 19 capsule by 37.5 MG name 37.5 mg s: [ Norepinephr mouth once Orally Once (no extended Effexor XR ine daily in the a day 1 cap phone) release 37.5 MG, Reuptake morning, every oral Effexor XR Inhibitor then take 2 morning for capsule (7 37.5 MG] capsules by one week sources.) mouth once then take 2 daily in the caps every morning morning 24h Oct, 30 day(s) Active 37.5 mg 01-11-2018 Suspended no Effexor no name inform XR 37.5 (no ation MG phone) Orally Once a day 1 capsule with food 24h Jan, 30 days Not-Taki ng Completed/Discontinued Medications Medication Ingredient Drug Dose Dates Status Sig Sig Care Class(es) (Normalized) (Original) Provid er amoxicillin amoxicillin Penicillin- 1000 05-18-20 Suspende no Amoxicillin no 500 mg oral Translation class mg 18 d information 500 MG name capsule (8 s: [ Antibacteri Orally 4 (no sources.) Amoxicillin al times a day phone) 500 mg] 2 capsules stat and then take 1 capsule 6h May, 10 days Not-Taking 1000 mg 01-10-2018 Active no Amoxicil no name - inform chanell 500 (no 01-24-2018 ation mg phone) Orally 2 times a day 2 capsules 12h Jan, Jan, 14 days Active 500 mg Completed take 1 Amoxicil (no capsul chanell 500 phone) e by Mg mouth Capsule four 500 Mg times ORAL daily Four Times Daily no Antivert , no 25 mg 07-28-20 Complete no Antiver Ramon ordaz information 25 Mg Not information 17 - d information 25 M g Not K (5 Applicable 05-17-20 Applicable 4 [place] sources.) 18 Times A Day (no 07/28/17 phone) Discontinued no benzocaine Standardize 78 g 05-22-20 Complete no Be nzocaine/M Doris information / menthol d Chemical 18 d information entho carol Farrellw (4 Allergen (Dermoplast (no sources.) Pain phone) Relieving [place]) 78 Gm Aerosol 78 Gm TOPICAL Four Times Daily 1 Milliliter 05/22/18 12 hr buPROPion Aminoketone 150 mg 06-15-20 Suspende no Wel lbutrin no buPROPion Translation 18 d information SR 150 MG name hydrochlori s: [ Orally Once (no de 150 mg Wellbutrin a day 1 phone) extended SR 150 MG] tablet in release the morning oral tablet 24h Jun, (2017 30 sources.) day(s) Not-Taking no CEFAZOLIN no 1 g 08-23-19 no no no no information VIAL INJ 1 information 19 - informat informatio n information name (1 source.) GM (ANCEF) 08-23-19 ion (no 19 phone) 24 hr Diclofenac Nonsteroida 100 mg 06-15-20 Suspende no Di clofenac no diclofenac Translation l 18 - d information Sodium ER name sodium 100 s: [ Anti-inflam 10-14-19 100 mg (no mg extended Diclofenac matory Drug 19 Orally Once phone ) release Sodium ER a day 1 oral tablet 100 mg] tablet with (2 food or milk sources.) 24h Jun, 9 Oct, 2018 30 day(s) Not-Taking no FENTANYL no 08-23-19 no no no no information INJ 100 information 19 - informat information info rmation name (1 source.) MCG/2CC 08-23-19 ion (no VIAL 19 phone) no Hydrocodone no 03-04-20 Complete take 1 Hydrocodone L rosalba K information Bitartrate/ information 15 - d tablet into Bi tartrate/I Gallion (2 Ibuprofen 09-23-19 the eye(s) buprofen (no sources.) (Vicoprofen 16 every four (Vicoprofen phone) 200-7.5 Mg to six hours 200-7.5 Mg Tab) 1 Each as needed Tab) 1 Each Tablet, 1-2 Tablet, 1-2 Each Each Opthalmic Opthalmic Q4-6HR as needed for Pain 03/04/15 Discontinued no Lactated no 08-23-19 no no no no information Ringer's information 19 - informat information inf ormation name (1 source.) Solution 08-30-19 ion (no 19 phone) no LORAZEPAM no 08-23-19 no no no no information 1CC VIAL information 19 - informat information inf ormation name (1 source.) INJ 2 MG/CC 08-23-19 ion (no (ATIVAN 19 phone) VIAL) no Magic no 05-18-20 Suspende no Magic no information Mouthwash information 18 d information Mout hwash name (3 Apply (no sources.) medicated phone) swab to sore areas of the mouth to numb the pain As needed Dip cotton swab into medication May, As needed Not-Taking 05-18-2018 Active no Magic no name inform Mouthwas (no ation h Apply phone) medicate d swab to sore areas of the mouth to numb the pain As needed Dip cotton swab into medicati on May, As needed Active meclizine meclizine Antiemetic 25 mg 07-28-20 Complete no A ntivert 25 Ramon hydrochlori Translation 17 d information Mg NOT K de 25 mg s: [ APPLICABLE 4 [place] oral strip Meclizine Times A Day (no (2 Hydrochlori 20 07/28/17 phone) sources.) de 25 MG Chewable Tablet, Travel Sickness 25 MG] 25 mg no no Travel no name information inform Sickness (no ation 25 MG phone) Orally Once a day 1 tablet as needed 24h Not-Taki ng no MIDAZOLAM no 08-23-19 no no no no information 2CC VIAL information 19 - informat information inf ormation name (1 source.) INJ 1 MG/CC 08-23-19 ion (no (VERSED 2CC 19 phone) VIAL) no ONDANSETRON no 08-23-19 no no no no information VIAL INJ 4 information 19 - informat informatio n information name (1 source.) MG/2CC 08-23-19 ion (no (ZOFRAN 2CC 19 phone) VIAL) Problems Active Problems Problem Normalized Date of Normalized Normalized Provider Fac ility Classification Problem(s) Problem Problem Problem Sta tus Onset/Resoluti Duration on Other upper Acute upper Episodic Active DON [facility]ADALUPE [facility] infections (20 infection, of [place] sources.) unspecified [place] ([address]) Translations: [ - Viral upper respiratory tract infection J06.9, - Acute rhinosinusitis J01.90] Cancer of Carcinoma in Chronic Active IGNACIA BLOUNT V ia other female situ of vulva DO [facility] genital organs Hospital - (4 sources.) [place] (54532) Cardiac Cardiac Chronic Active IGNACIA BLOUNT Via dysrhythmias arrhythmia, DO [place] (3 sources.) unspecified Hospital - [place] (12084) Other nervous Carpal tunnel Chronic Active LISA ZACARIAS [facility] Via system syndrome, [place] disorders (3 bilateral Hospital - sources.) upper limbs [place] (27834) Other Diarrhea Episodic Active VASQUEZ CARTER Communit y gastrointestin Translations: [address]83 [facility] al disorders [ Diarrhea, of [place] (6 sources.) Diarrhea] [place] ([address]) Diverticulosis Diverticulosis Chronic Active ROSALIE BELLO , [facility] Via and of large DO [place] diverticulitis intestine Hospital - (6 sources.) without [place] perforation or (49105) abscess without bleeding Headache; Migraine, Chronic Active MAYELIN [facility] Via including unspecified, MARLENY MERCHANT migraine (14 not Hospital - sources.) intractable, [place] without status (29455) migrainosus Other Obesity, Chronic Active ROSALIESTEPHANIE GAMAPATTI , [facility] Via nutritional; unspecified [facility]; and Hospital - metabolic [place] disorders (6 (35570) sources.) Other Obesity, Chronic Active AXELDEZ SHAW , [facility] Via nutritional; unspecified [facility]; and Hospital - metabolic [place] disorders (7 (96090) sources.) Other nervous Other chronic Chronic Active NERIS PORTILLOES No t Available system pain (21537) disorders (1 source.) Other Other specific Chronic Active NERIS PORTILLOES [facility] V ia non-traumatic joint [place] joint derangements Hospital - disorders (4 of left [place] sources.) shoulder, not (75295) elsewhere classified Other Other Episodic Active [facility] connective tenosynovitis [facility] of tissue disease of hand and [place] (3 sources.) wrist [facility] (41909) Other Synovitis and Episodic Active [facility] connective tenosynovitis, [facility] of tissue disease unspecified [place] (3 sources.) County ([address]85) Residual Tobacco use Episodic Active WILD MICHAEL Pisano ty codes; Translations: 16408 [facility] unclassified [ - Tobacco of [place] (20 sources.) use Z72.0] [place] (38056) Past or Other Problems Problem Normalized Date of Normalized Normalized Provider Fac ility Classification Problem(s) Problem Problem Problem Sta tus Onset/Resoluti Duration on Residual Acquired Episodic Completed MAYELIN [facility] Via codes; absence of MARLENY MERCHANT unclassified both cervix Hospital - (9 sources.) and uterus [place] (48980) Residual Acquired Episodic Completed PETER GERA [facility] Via codes; absence of [place] gillette other organs Hospital - (2 sources.) [place] (86136) Residual Acquired Episodic Completed MAYELIN [facility] Via codes; absence of MARLENY MERCHANT unclassified other Hospital - (8 sources.) specified [place] parts of (47587) digestive tract External cause Activity, Episodic Completed SUHAS HERNANDEZ [facility] Via codes: MD [place] armas Unspecified (8 animal Hospital - sources.) Translations: [place] [ ACTIVITY, (09418) UNSPECIFIED, OTHER EXTERNAL CAUSE STATUS] Other Aftercare Episodic Completed RK MARQUEZ JR [facility] Via aftercare (2 following [place] sources.) surgery of the Hospital - musculoskeleta Lily l system, NEC (15516) Allergic Allergy status Episodic Completed NERIS BOSS [facility] V ia reactions (7 to other [facility] sources.) drugs, Hospital - medicaments [place] and biological (87120) substances status Complications Arthrodesis Episodic Completed DON GUADALUPE N ot Available of surgical status (08213) procedures or medical care (1 source.) Other and Benign Episodic Completed JESSE [facility] Via unspecified lipomatous VENESSA [facility] benign neoplasm of Hospital - neoplasm (2 skin and [place] sources.) subcutaneous (76954) tissue of trunk Other and Benign Episodic Completed ROSALIE BELLO [facility] Via unspecified neoplasm of [facility] benign transverse Hospital - neoplasm (3 colon [place] sources.) (84364) Other Body mass Episodic Completed ROSALIE BELLO [facility] Via nutritional; index (BMI) DO [facility] endocrine; and 29.0-29.9, Hospital - metabolic adult Lily disorders (6 (04728) sources.) Other Care involving Episodic Completed DON GUADALUPE No t Available aftercare (6 other physical (65335) sources.) therapy Other skin Epidermal cyst Episodic Completed DORIS HUNTER [facility] Via disorders (3 DO [facility] sources.) Hospital - [place] (08370) Residual Family history Episodic Completed MAYELIN [facility] Via codes; of ischemic MARLENY MERCHANT unclassified heart disease Hospital - (10 sources.) and other Lily diseases of (91870) the circulatory system Residual Family history Episodic Completed MAYELIN [facility] Via codes; of malignant MARLENY MERCHANT unclassified neoplasm of Hospital - (10 sources.) breast [place] (41343) Residual Family history Episodic Completed TIERNEY AWAN MD No t Available codes; of malignant (28271) unclassified neoplasm of (1 source.) breast Inflammatory Female pelvic Episodic Completed DORIS HUNTER V Via diseases of peritoneal DO [facility] female pelvic adhesions Hospital - organs (2 (postinfective [place] sources.) ) (29455) Other injuries Finger injury Episodic Completed MARIANNE Not Available and conditions MD JOLANTA (77951) due to external causes (1 source.) External cause Gas station as no information no information ASHLY OTHY Not Available codes: Place the place of MD JOLANTA (47247) of occurrence occurrence of (4 sources.) the external cause Translations: [ ACCIDENT IN HOME] External cause Gas station as Episodic Completed NERIS BOSS [facility] Via codes: Place the place of [facility] of occurrence occurrence of Hospital - (1 source.) the external Lily cause (28808) Gastritis and Gastritis, Episodic Completed ROSALIE BELLO [facility] Via duodenitis (12 unspecified, DO [place] sources.) without Hospital - bleeding [place] Translations: (52787) [ DUODENITIS WITHOUT BLEEDING, DUODENITIS WITHOUT BLEEDING] Other USP Episodic Completed NERIS BOSS [facility] Via aftercare (4 (current) use [place] sources.) of inhaled Hospital - steroids [place] (55385) 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 Completed NERIS BOSS [facility] Via aftercare (4 (current) use [place] sources.) of systemic Hospital - steroids [place] (01103) Other Long-term Episodic Completed TIERNEY AWAN MD Not Genet ilable aftercare (1 (current) use (71768) source.) of other medications Other Myalgia and Episodic Completed TIERNEY AAWN MD Not A vailable connective myositis, (67970) tissue disease unspecified (1 source.) Other lower Other Episodic Completed CNIDY SHAW [facility] Vi a respiratory abnormalities MD [facility] disease (3 of breathing Hospital - sources.) [place] (27356) External cause Other and no information no information RK Ordaz JR [facility] Via codes: unspecified [place] Natural/enviro overexertion Hospital - nment (10 or strenuous [place] sources.) movements or (82872) postures, subsequent encounter External cause Other external no information no information ASHLY OTHY Not Available codes: cause status MD JOLANTA (47905) Unspecified (5 Translations: sources.) [ OTHER EXTERNAL CAUSE STATUS, ACTIVITY, WALKING AN ANIMAL, ACTIVITY, UNSPECIFIED, OTHER EXTERNAL CAUSE STATUS] Other Other fecal Episodic Completed ROSALIE BELLO , [facility] Vi a gastrointestin abnormalities DO [facility] al disorders Hospital - (2 sources.) [place] () Other lower Other forms of Episodic Completed CINDY SHAW , [facility] Via respiratory dyspnea MD [facility] disease (12 Hospital - sources.) [place] () Hemorrhoids (6 Other Episodic Completed ROSALIE DELPATTI , [facility] Via sources.) hemorrhoids DO [facility] (68076) Other Other long Episodic Completed ROSALIESTEPHANIE BELLO , [facility] Via aftercare (9 term (current) DO [place] sources.) drug therapy [facility] () Other Other Episodic Completed RK MARQUEZ JR Not Avai lable non-traumatic specified (37984) joint joint disorders (16 disorders, sources.) left shoulder Other female Other Episodic Completed DORIS HUNTER , [facility] Vi a genital specified DO [place] disorders (3 noninflammator Hospital - sources.) y disorders of Lily vulva and (12322) perineum Residual Other Episodic Completed LISA ADAMES [facility] Via codes; ernst [facility] unclassified postprocedural Hospital - (3 sources.) states [place] (91781) Other acquired Other Episodic Completed RK MARQUEZ JR Not Available deformities (1 unspecified (14703) source.) back disorders Cardiac Palpitations Episodic Completed SUHAS BROWN [facility] V ia dysrhythmias , MD [facility] (14 sources.) [facility] () Screening and Personal Episodic Completed RAMON HOFFMANN [facility] V ia history of history of , MD [facility] nicotine Hospital - and substance dependence Lily abuse codes (7 (58735) sources.) Other Personal Episodic Completed MAYELIN [facility] Via gastrointestin history of MARLENY MERCHANT al disorders other diseases Hospital - (14 sources.) of the Lily digestive (95450) system Other Personal Episodic Completed MAYELIN [facility] Via infections; history of MARLENY MERCHANT including other Hospital - parasitic (7 infectious and Lily sources.) parasitic (10976) diseases Other Polydipsia Episodic Completed SUHAS BROWN [facility] Via nutritional; , [facility]; and Hospital - metabolic [place] disorders (2 (82938) sources.) Other and Polyp of colon Episodic Completed ROSALIESTEPHANIE BELLO , [facility] Via unspecified DO [facility] benign Hospital - neoplasm (6 Lily sources.) (93595) Other Polyphagia Episodic Completed SUHAS BROWN [facility] Via nutritional; , MD [facility]; and Hospital - metabolic [place] disorders (2 (19641) sources.) Residual Procedure and Episodic Completed JESSE [facility] Via codes; treatment not VENESSA [facility] unclassified carried out Hospital - (3 sources.) for other Lily reasons (14538) Disorders of Pure no information no information NERIS BOSS [facility] Via lipid hypercholester [place] metabolism (6 olemia, Hospital - sources.) unspecified [place] (85063) Other lower Shortness of Episodic Completed GEORGIANA COLTHARP [facility] Via respiratory breath , DO [place] disease (7 Hospital - sources.) [place] (90880) Other female Unspecified Episodic Completed DORIS FARRELLW , [facility] Via genital condition DO [place] disorders (3 associated Hospital - sources.) with female [place] genital organs (41487) and menstrual cycle External cause Unspecified no information no information GRETCH EN Not Available codes: Fall fall, initial MARLENY MERCHANT (59711) (20 sources.) encounter Translations: [ FALL SAME LEV FROM SLIP/TRIP W/O STRIKE , UNSPECIFIED FALL, SUBSEQUENT ENCOUNTER] External cause Unspecified Episodic Completed MAYELIN [facility] V ia codes: Fall (6 fall, MARLENY MERCHANT sources.) subsequent Hospital - encounter [place] Translations: (24804) [ UNSPECIFIED FALL, INITIAL ENCOUNTER, FALL SAME LEV FROM SLIP/TRIP W/O STRIKE ] Other injuries Unspecified Episodic Completed MAYELIN [facility] V ia and conditions injury of left MARLENY MERCHANT due to wrist, hand Hospital - external and finger(s), Lily causes (3 initial (77607) sources.) encounter Unclassified Unspecified no information no information no name Not Available (2 sources.) lump in the (36185) left breast, lower outer quadrant Procedures Procedure Normalized Procedure Procedure Result Performer Facility Date 01-18-2019 48 hour ambulatory no information CINDY Nassar scension Via [facility] - electrocardiographic [facility] (51099 ) 01-18-2019 monitoring - 01-18-2019 09-18-2013 Assay of lipase no information no name (no phone) [facility] (34711) 09-18-2013 Assay of thyroid no information no name (no phone) [facility] tsh [place] (95922) 03-16-2018 Bitewings four images no information no name (no ph one) [facility] (55562) 09-18-2013 Blood count complete no information no name (no kishore ne) [facility] auto&auto difrntl wbc [facility] (06282) 09-18-2013 Blood occult no information no name (no phone) Com [facility] peroxidase actv qual [facility] feces 1 deter [place] (70143) 09-18-2013 C-reactive protein no information no name (no phone ) [facility] (44283) 09-18-2013 Collection venous no information no name (no phone) [facility] blood venipuncture [facility] (01653) 09-18-2013 Comprehensive no information no name (no phone) [facility] (86782) 12-03-2012 Computer dx mammogram no information no name (no ph one) [facility] add-on [facility] ([id number]) 09-18-2013 Cul bact stool aerobic no information no name (no p bree) [facility] isol [facility] salmonella&sh[facility]ell [place] (65738) 05-18-2018 Dental no charge no information no name (no phone) [facility] ([id number]) 03-16-2018 Dental prophylaxis no information no name (no phone ) [facility] adult [facility] ([id number]) 05-08-2018 Destruction benign no information no name (no phone ) [facility] lesions up to 14 [facility] ([id number]) 10-08-2013 Drug screen, no information no name (no phone) [facility] qualitate/multi [facility] (88547) 09-18-2013 Drug screen, no information no name (no phone) [facility] qualitate/multi [facility] ([id number]) 05-22-2018 Excision no information DORIS HUNTER Via [facility] ([id number]) 03-16-2018 Intraoral periapical no information no name (no kishore ne) [facility] - ea add [facility] 03-16-2018 [place] ([id number]) - 03-16-2018 03-16-2018 Intraoral periapical no information no name (no kishore ne) [facility] first [facility] ([id number]) 10-15-2018 LAB NOT BILLED BY no information no name (no phone) [facility] (36741) 09-18-2013 Leukocyte assmt fecal no information no name (no ph one) [facility] qual/semiquantitative [facility] (39383) 09-18-2013 Lipid panel no information no name (no phone) [facility] (51225) 09-18-2013 Ova&parasites direct no information no name (no kishore ne) [facility] smears concentration & [facility] (23382) 04-23-2018 Radiography of humerus no information NERIS BOSS Via [facility] ([id number]) 04-23-2018 - 04-23-2018 04-23-2018 Radiography of no information NERIS BOSS V ia [facility] ([id number]) 04-23-2018 - 04-23-2018 09-18-2013 Sedimentation rate rbc no information no name (no p bree) [facility] automated [facility] (43232) 03-16-2018 Topical fluoride no information no name (no phone) [facility] varnish [facility] (96790) 05-18-2018 Treatment of no information no name (no phone) [facility] complications [facility] (22622) 01-10-2018 Urnls dip stick/tablet no information no name (no p bree) [facility] rgnt auto w/o [facility] (17489) Immunizations Normalized Immunization Date Notes Care Provider Facili ty Immunization tetanus toxoid, 11-08-2017 - no information KEELY Vizcarra [facility] reduced diphtheria 11-08-[id number] [place] [address] [facility], [facility] (87066) acellular pertussis vaccine, adsorbed no information 11-08-2017 no information KEELY [facility] [id number] [place] [address] ([id number]) Results Test Name Value Interpretation Reference Range Date Time Fa cility (Normalized) (Normalized) (Medline Reference) ua long dip (in house) on null Glucose Test no information (no code) [facility] strip mass conc Center of (U) [facility] ([id number]) UA LONG DIP (IN 11/2018 (no code) [facility]) [facility] (83992) UA LONG DIP (IN clear (no code) [facility]) [facility] (72901) UA LONG DIP (IN yellow (no code) [facility]) [facility] (20487) UA LONG DIP (IN nehative (no code) [facility]) [facility] (19862) UA LONG DIP (IN 179852 (no code) [facility]) [facility] (35974) UA LONG DIP (IN 1+ (no code) [facility]) [facility] (22577) UA LONG DIP (IN 5.5 (no code) [facility]) [facility] (37863) UA LONG DIP (IN 1.010 (no code) [facility]) [facility] (82532) mammogram, bilateral screening on null NEGATED: no information (no code) [facility] Highlighted row Center of Laboratory [facility] Studies (01246) No panel information on null BLO trace (no code) [facility] (23520) Exp date 11/2018 (no code) [facility] (33159) KET 11/2018~cloudy~y (no code) [facility] ellow~none[facility]~neg [facility] (88985) HEIKE no information (no code) [facility] (66660) Lot # [id number] (no code) [facility] (62185) Protein (U) no information (no code) 0 - 20 mg/dL [facility] [Mass/Vol] [facility] (43414) SG 1.010 (no code) [facility] (57853) URO 0.2 (no code) [facility] (11251) No panel information on 2019-05-14 Albumin 4.6 g/dL (N) 3.4 - 5.4 g/dL [facility] [Mass/Vol] [facility] (90347) Albumin/Globulin 1.7 {ratio} (N) 1 - 2.5 {ratio} Comm [facility] [Mass ratio] [facility] (43327) ALP [Catalytic 116 U/L (N) 44 - 147 U/L [facility] activity/Vol] [facility] (65460) ALT [Catalytic 20 U/L (N) 4 - 40 U/L Community ealt activity/Vol] [facility] (29057) AST [Catalytic 18 U/L (N) 10 - 34 U/L [facility] Health activity/Vol] [facility] (68433) Bilirubin 0.5 mg/dL (N) 0.1 - 1.2 mg/dL [facility] [Mass/Vol] [facility] () Calcium 9.7 mg/dL (N) 8.5 - 10.2 mg/dL [facility] [Mass/Vol] [facility] (16969) Chloride 103 mmol/L (N) 95 - 106 mmol/L [facility] [Moles/Vol] [facility] (63766) Cholesterol 214 mg/dL (H) 180 - 200 mg/dL [facility] [Mass/Vol] [facility] (66281) Cholesterol in 52 mg/dL (N) [facility] h HDL [Mass/Vol] [facility] (25290) Cholesterol in 123 mg/dL (H) 0 - 100 mg/dL [facility] LDL [Mass/Vol] [facility] (61572) Cholesterol non 162 mg/dL (H) [facility] HDL [Mass/Vol] [facility] (39164) Cholesterol.tota 4.1 {ratio} (N) [facility] Hea lth l/Cholesterol in [facility] HDL [Mass ratio] [facility] (51698) CO2 [Moles/Vol] 29 mmol/L (N) 23 - 29 mmol/L [facility] (92389) Creatinine 0.70 mg/dL (N) [facility] h [Mass/Vol] [facility] (81474) GFR/1.73 sq M 116 (N) 90 - 120 [facility] predicted among mL/min/{1.73_m2} mL/min/{1.73_m2} Center o f [facility] blacks MDRD [facility] (S/P/Bld) [Vol (51754) rate/Area] GFR/1.73 sq 100 (N) 90 - 120 [facility] th M.predicted MDRD mL/min/{1.73_m2} mL/min/{1.73_m2} [facility] (S/P/Bld) [Vol [facility] rate/Area] (28022) Globulin (S) 2.7 g/dL (N) 2 - 3.5 g/dL [facility] ealt [Mass/Vol] [facility] (39614) Glucose 99 mg/dL (N) 60 - 125 mg/dL [facility] [Mass/Vol] [facility] (83893) Potassium 4.1 mmol/L (N) 3.7 - 5.2 mmol/L [facility] [Moles/Vol] [facility] (47032) Protein 7.3 g/dL (N) 6.4 - 8.3 g/dL [facility] [Mass/Vol] [facility] (85088) Sodium 140 mmol/L (N) 135 - 145 mmol/L [facility] [Moles/Vol] [facility] (77225) Triglyceride 242 mg/dL (H) 0 - 150 mg/dL [facility] [Mass/Vol] [facility] (50170) Urea nitrogen 10 mg/dL (N) 7 - 20 mg/dL [facility] [Mass/Vol] [facility] (49876) Urea NOT APPLICABLE (no code) [facility] nitrogen/Creatin [facility] [Mass ratio] [facility] (97283) No panel information on 2019-01-25 B. burgdorferi <0.90 (N) [facility] Ab IA Qn (S) [facility] (86239) CRP [Mass/Vol] 2.1 mg/L (N) 0 - 8 mg/L [facility] ealth [facility] (46716) ESR (Bld) 2 mm/h (N) Community [facility]alt h [Velocity] [facility] () Nuclear Ab IF Ql no information (N) Community [facility] lth (S) [facility] (13337) R. spotted fever NOT DETECTED (no code) [facility] Hea lth group IgG Ql (S) [facility] (39311) R. spotted fever NOT DETECTED (no code) [facility] Hea lth group IgM Ql (S) [facility] (92045) Rheumatoid [IU]/mL (N) 0 - 15 [IU]/mL [facility] Health factor Qn [facility] () No panel information on 2018-12-28 Albumin 4.3 g/dL (N) 3.4 - 5.4 g/dL [facility] [Mass/Vol] [facility] () Albumin/Globulin 1.8 {ratio} (N) 1 - 2.5 {ratio} [facility] [Mass ratio] [facility] (65432) ALP [Catalytic 99 U/L (N) 44 - 147 U/L [facility] Health activity/Vol] [facility] () ALT [Catalytic 51 U/L (H) 4 - 40 U/L [facility] ealt activity/Vol] [facility] (65751) AST [Catalytic 33 U/L (N) 10 - 34 U/L [facility] Health activity/Vol] [facility] () Bilirubin 0.6 mg/dL (N) 0.1 - 1.2 mg/dL [facility] [Mass/Vol] [facility] (90426) Calcium 9.3 mg/dL (N) 8.5 - 10.2 mg/dL [facility] [Mass/Vol] [facility] (71299) Chloride 104 mmol/L (N) 95 - 106 mmol/L [facility] [Moles/Vol] [facility] (30984) Cholesterol 372 mg/dL (H) 180 - 200 mg/dL [facility] [Mass/Vol] [facility] (40992) Cholesterol in 60 mg/dL (N) [facility] h HDL [Mass/Vol] [facility] (90113) Cholesterol in 257 mg/dL (H) 0 - 100 mg/dL [facility] LDL [Mass/Vol] [facility] (49540) Cholesterol non 312 mg/dL (H) [facility] HDL [Mass/Vol] [facility] (64190) Cholesterol.tota 6.2 {ratio} (H) [facility] lt l/Cholesterol in [facility] HDL [Mass ratio] [facility] (51855) CO2 [Moles/Vol] 32 mmol/L (N) 23 - 29 mmol/L [facility] (61300) Creatinine 0.83 mg/dL (N) [facility] h [Mass/Vol] [facility] (47905) GFR/1.73 sq M 95 (N) 90 - 120 [facility] predicted among mL/min/{1.73_m2} mL/min/{1.73_m2} Center o f [facility] blacks MDRD [facility] (S/P/Bld) [Vol (58771) rate/Area] GFR/1.73 sq 82 (N) 90 - 120 [facility] th M.predicted MDRD mL/min/{1.73_m2} mL/min/{1.73_m2} [facility] (S/P/Bld) [Vol [facility] rate/Area] (32651) Globulin (S) 2.4 g/dL (N) 2 - 3.5 g/dL [facility] ealth [Mass/Vol] [facility] (50151) Glucose 104 mg/dL (H) 60 - 125 mg/dL [facility] [Mass/Vol] [facility] (79214) Potassium 4.1 mmol/L (N) 3.7 - 5.2 mmol/L [facility] [Moles/Vol] [facility] (76297) Protein 6.7 g/dL (N) 6.4 - 8.3 g/dL [facility] [Mass/Vol] [facility] (44440) Sodium 142 mmol/L (N) 135 - 145 mmol/L [facility] [Moles/Vol] [facility] (26195) Triglyceride 325 mg/dL (H) 0 - 150 mg/dL [facility] [Mass/Vol] [facility] (67428) TSH Qn 3.22 m[IU]/L (N) 0.4 - 4 m[IU]/L [facility] (65444) Urea nitrogen 12 mg/dL (N) 7 - 20 mg/dL [facility] [Mass/Vol] [facility] (82199) Urea NOT APPLICABLE (no code) [facility] nitrogen/Creatin [facility] [Mass ratio] [facility] (77816) No panel information on 2018-10-15 Alphahydroxyalpr 72 (H) [facility] azolam [facility] (82740) Alphahydroxymida no information (no code) [facility] zolam [facility] (49701) Alphahydroxytria no information (no code) [facility] (39057) Aminoclonazepam no information (no code) [facility] (26538) Codeine no information (no code) [facility] (62712) Hydrocodone 61 (H) [facility] (31866) Hydromorphone no information (no code) [facility] (48180) Hydroxyethylflur no information (no code) [facility] azepam [facility] (01754) Lorazepam no information (no code) [facility] (97325) Marijuana 99 (H) [facility] Metabolite [facility] (15347) Morphine no information (no code) [facility] (93906) Nordiazepam no information (no code) [facility] (02480) Norhydrocodone 79 (H) [facility] (84897) Oxazepam no information (no code) [facility] (62480) Temazepam no information (no code) [facility] (31506) 6 Acetylmorphine no information (no code) [facility] (04973) Alcohol no information (no code) [facility] Metabolites [facility] (73178) Amphetamines Ql no information (no code) [facility] (U) [facility] (11508) Benzodiazepines no information (A) [facility] Ql (U) [facility] (20867) Benzoylecgonine no information (no code) [facility] Ql (U) [facility] (72604) Buprenorphine no information (no code) [facility] (11698) COMMENT no information (no code) [facility] (04465) Creatinine (U) 30.7 mg/dL (no code) [facility] [Mass/Vol] [facility] (90076) MDMA no information (no code) [facility] h [facility] (23819) medMATCH 6 CONSISTENT (no code) [facility] Acetylmorphine [facility] (07415) medMATCH Alcohol CONSISTENT (no code) [facility] Metab [facility] (10627) medMATCH CONSISTENT (no code) [facility] Aminoclonazepam [facility] (93359) medMATCH CONSISTENT (no code) [facility] Amphetamines [facility] (43909) medMATCH aOH CONSISTENT (no code) Community Healt alprazolam [facility] (95320) medMATCH aOH CONSISTENT (no code) [facility] midazolam [facility] (72406) medMATCH aOH CONSISTENT (no code) [facility] triazolam [facility] (97773) medMATCH CONSISTENT (no code) [facility] Buprenorphine [facility] (27227) medMATCH Cocaine CONSISTENT (no code) [facility] Metab [facility] (32620) medMATCH Codeine CONSISTENT (no code) [facility] (91258) medMATCH INCONSISTENT (no code) [facility] Hydrocodone [facility] (84908) medMATCH CONSISTENT (no code) [facility] Healt h Hydromorphone [facility] (26585) medMATCH CONSISTENT (no code) [facility] Lorazepam [facility] (11201) medMATCH INCONSISTENT (no code) [facility] Marijuana Metab [facility] (78556) medMATCH MDMA CONSISTENT (no code) [facility] (82526) medMATCH CONSISTENT (no code) [facility] Healt h Morphine [facility] (07693) medMATCH CONSISTENT (no code) [facility] h Nordiazepam [facility] (07687) medMATCH INCONSISTENT (no code) [facility] Healt Norhydrocodone [facility] (44222) medMATCH [place],Et CONSISTENT (no code) [facility] Healt h flurazepam [facility] (55982) medMATCH CONSISTENT (no code) [facility] h Oxazepam [facility] (32322) medMATCH CONSISTENT (no code) [facility] Healt Oxycodone [facility] (73717) medMATCH CONSISTENT (no code) [facility] Temazepam [facility] (60373) Opiates Ql (U) no information (A) [facility] (42513) Oxidants Ql (U) no information (no code) [facility] (41212) Oxycodone Ql (U) no information (no code) [facility] (58064) pH (U) 6.19 [pH] (no code) 4.6 - 8 [pH] [facility] (88391) Prescribed Drug Xanax(TM) (no code) [facility] 1 [facility] (61183) Tetrahydrocannab no information (A) [facility] inol Ql (U) [facility] (94797) No panel information on 2018-08-15 Anion gap 15 mmol/L (H) 3 - 11 mmol/L 08-15-2018 Hospital [Moles/Vol] 14:050 [facility] (33218) Bacteria LM Ql 1+ (A) 08-15-2018 Hospital (Urine sed) 14: [facility] (93200) Basophils (Bld) 0.0 10*3/uL (no code) 0 - 0.3 10*3/uL 08-15-2018 Hospital [#/Vol] 14: [facility] (08326) Basophils/100 0.30 % (no code) 0.5 - 1 % 08-15-2018 Hospital WBC (Bld) 14: [facility] (61719) Bilirubin N/A (A) 08-15-2018 Hospital Confirm Ql (U) 14: [facility] (08218) Bilirubin Ql (U) no information (no code) 08-15-2018 Hospit al 14: [facility] (27279) Calcium 10.0 mg/dL (no code) 8.5 - 10.2 mg/dL 08-15-2018 Hosp ital [Mass/Vol] 14:0500 [facility] (19749) Chloride 104 mmol/L (no code) 95 - 106 mmol/L 08-15-2018 Hospi denny [Moles/Vol] 14:050 [facility] (20072) Clarity (U) Clear (no code) 08-15-2018 Hospital 14: [facility] (90532) Color (U) Yellow (no code) 08-15-2018 Hospital 14: [facility] (70851) Creatinine 0.84 mg/dL (no code) 08-15-2018 Hospital [Mass/Vol] 14:050 [facility] (83967) Electrocardiogra Complete (no code) 08-15-2018 Hospital ms recorded 14: [facility] (31712) Eosinophils 0.1 10*3/uL (no code) 0.05 - 0.5 08-15-2018 Hospita l (Bld) [#/Vol] 10*3/uL 14: [facility] (92051) Eosinophils/100 0.8 % (no code) 1 - 4 % 08-15-2018 Hospit al WBC (Bld) 14: [facility] (89762) Epithelial 5-10/HPF (A) 08-15-2018 Hospital cells.squamous 14: [facility] LM.HPF (Urine [facility] sed) [#/Area] (13955) Erythrocyte 12.4 % (no code) 11.6 - 14.6 % 08-15-2018 Hospit al distribution 14: [facility] width (RBC) [facility] [Ratio] (82744) FINAL CULTURE no information (no code) 08-15-2018 Hospital RESULTS 14: [facility] (87142) GFR/1.73 sq 71 (no code) 90 - 120 08-15-2018 Hospital M.predicted MDRD mL/min/{1.73_m2} mL/min/{1.73_m2} 14: [facility] (S/P/Bld) [Vol [facility] rate/Area] (59945) Glucose 122 mg/dL (H) 60 - 125 mg/dL 08-15-2018 Hospita l [Mass/Vol] 14: [facility] (68206) Glucose Test no information (no code) 08-15-2018 Hospital strip (U) 14: [facility] [Mass/Vol] [facility] (23535) HCO3 (P) 27 (no code) 08-15-2018 Hospital [Moles/Vol] 14: [facility] (54412) Hematocrit (Bld) 46.6 % (H) 36.1 - 50.3 % 08-15-2018 H ospital [Volume 14: [facility] fraction] [facility] (10200) Hemoglobin (Bld) 15.9 g/dL (H) 12.1 - 17.2 g/dL 08-15-2018 Hospital [Mass/Vol] 14: [facility] (42303) Hemoglobin Ql Trace-lysed (A) 08-15-2018 Hospital (U) 14: [facility] (85767) Ketones (U) no information (no code) 08-15-2018 Hospital [Mass/Vol] 14: [facility] (78046) Leukocyte no information (no code) 08-15-2018 Hospital esterase Test 14: [facility] strip Ql (U) [facility] (32193) Lymphocytes 2.80 10*3/uL (no code) 0.9 - 2.9 08-15-2018 Hospita l (Bld) [#/Vol] 10*3/uL 14: [facility] () Lymphocytes/100 42.9 % (no code) 20 - 40 % 08-15-2018 Hospit al WBC (Bld) 14: [facility] (29401) MCH (RBC) 31.8 pg (H) 27 - 31 pg 08-15-2018 Hospital [Entitic mass] 14: [facility] (27545) MCHC (RBC) 34.1 g/dL (no code) 32 - 36 g/dL 08-15-2018 Hospital [Mass/Vol] 14: [facility] (08846) MCV (RBC) 93.2 fL (no code) 80 - 100 fL 08-15-2018 Hospital [Entitic vol] 14: [facility] (03139) Monocytes (Bld) 0.4 10*3/uL (no code) 0.3 - 0.9 08-15-2018 Hosp ital [#/Vol] 10*3/uL 14: [facility] (21313) Monocytes/100 5.8 % (no code) 2 - 8 % 08-15-2018 Hospital WBC (Bld) 14:17-0500 [facility] (30796) Mucus Ql (Urine 1+ (A) 08-15-2018 Hospital sed) 14: [facility] (57358) Neutrophils 3.27 10*3/uL (no code) 1.7 - 7 10*3/uL 08-15-2018 H ospital (Bld) [#/Vol] 14: [facility] (75011) Neutrophils/100 50.2 % (no code) 40 - 60 % 08-15-2018 Hospit al WBC (Bld) 14: [facility] (68625) Nitrite Ql (U) no information (no code) 08-15-2018 Hospital 14: [facility] () Osmolality Calc 294 (no code) 08-15-2018 Hospital [Osmolality] 14: [facility] (10582) pH (U) 5.5 [pH] (no code) 4.6 - 8 [pH] 08-15-2018 Hospital 14: [facility] [facility] ([id number]) Platelet mean 10.0 fL (no code) 7.2 - 11.7 fL 08-15-2018 Hosp ital volume (Bld) 14: [facility] [Entitic vol] [facility] ([id number]) Platelets (Bld) 243 10*3/uL (no code) 150 - 450 08-15-2018 Hosp ital [#/Vol] 10*3/uL 14: [facility] (09349) Potassium 4.1 mmol/L (no code) 3.7 - 5.2 mmol/L 08-15-2018 Hosp ital [Moles/Vol] 14: [facility] (87090) Protein (U) no information (no code) 0 - 20 mg/dL 08-15-2018 Ho spital [Mass/Vol] 14: [facility] ([id number]) RBC (Bld) 5.00 10*6/uL (no code) 4.2 - 6.1 08-15-2018 Hospital [#/Vol] 10*6/uL 14: [facility] (86223) RBC LM.HPF Rare/HPF (A) 08-15-2018 Hospital (Urine sed) 14: [facility] [#/Area] [facility] (94283) Sodium 142 mmol/L (no code) 135 - 145 mmol/L 08-15-2018 Hosp ital [Moles/Vol] 14: [facility] (07718) Specific gravity 1.010 (no code) 08-15-2018 Hospital (U) [Rel 14: [facility] density] [facility] (74917) Urea nitrogen 11 mg/dL (no code) 7 - 20 mg/dL 08-15-2018 Hospi denny [Mass/Vol] 14: [facility] (32214) Urine Volume Urine Volume (no code) 08-15-2018 Hospital Sufficient 14: [facility] (10mL) [facility] (29665) Urobilinogen Qn 0.2 (A) 08-15-2018 Hospital (U) {Jess'U}/dL 14: [facility] (97935) WBC (Bld) 6.52 10*3/uL (no code) 3.5 - 10.5 08-15-2018 Hospital [#/Vol] 10*3/uL 14: [facility] (95264) WBC LM.HPF no information (no code) 0 - 5 /[HPF] 08-15-2018 Hos pital (Urine sed) 14: [facility] [#/Area] [facility] (33594) no information Urine Saved if (A) 08-15-2018 Hospital Culture Needed 14: [facility] (48hrs from time [facility] of collection) (52326) No panel information on 2017-09-20 Albumin mass 4.9 g/dL (N) 3.4 - 5.4 g/dL [facility] (19506) Albumin/Globulin 2.0 (N) [facility] mass [facility] (46338) ALP enzyme 71 U/L (N) 44 - 147 U/L Community [facility] alth act/vol [facility] (50005) ALT enzyme 26 U/L (N) 4 - 40 U/L [facility] Heal th act/vol [facility] (56616) AST enzyme 23 U/L (N) 10 - 34 U/L [facility] act/vol [facility] (84902) Basophils Auto 0.027 10*3/uL (N) 0 - 0.3 10*3/uL [facility] Health #/vol (Bld) [facility] (18618) Basophils/100 0.4 % (N) 0.5 - 1 % [facility] He alth WBC Auto (Bld) [facility] (28492) Bilirubin mass 0.4 mg/dL (N) 0.1 - 1.2 mg/dL [facility] (87331) Calcium mass 9.8 mg/dL (N) 8.5 - 10.2 mg/dL [facility] (20693) Chloride molar 105 mmol/L (N) 95 - 106 mmol/L [facility] (46103) CO2 molar conc 30 mmol/L (N) 23 - 29 mmol/L [facility] (50164) Creatinine mass 0.81 mg/dL (N) [facility] (44333) Eosinophils Auto 0.027 10*3/uL (N) 0.05 - 0.5 [facility] #/vol (Bld) 10*3/uL [facility] (87088) Eosinophils/100 0.4 % (N) 1 - 4 % [facility] WBC Auto (Bld) [facility] (87337) Erythrocyte 12.6 % (N) 11.6 - 14.6 % [facility] H ealth [facility] Auto Ratio [facility] (RBC) (99831) GFR/1.73 sq M 98 (N) 90 - 120 [facility] He alth predicted among mL/min/{1.73_m2} mL/min/{1.73_m2} [facility] [place] MDRD vol [facility] rate/area (58456) (S/P/Bld) GFR/1.73 sq 85 (N) 90 - 120 [facility] th M.predicted MDRD mL/min/{1.73_m2} mL/min/{1.73_m2} [facility] rate/area [facility] (44868) Globulin 2.5 (N) [facility] Calculated mass [facility] (S) [facility] (55881) Glucose mass 82 mg/dL (N) 60 - 125 mg/dL [facility] conc [facility] (67720) Hematocrit Auto 44.2 % (N) 36.1 - 50.3 % [facility] Health Volume Fraction [facility] (Bld) [facility] (74573) Hemoglobin 5.3 (N) [facility] A1c/Hemoglobin.t [facility] fraction (Bld) (95813) Hemoglobin mass 15.2 g/dL (N) 12.1 - 17.2 g/dL [facility] Health conc (Bld) [facility] (30939) Lymphocytes Auto 2.672 10*3/uL (N) 0.9 - 2.9 [facility] Health #/vol (Bld) 10*3/uL [facility] (57686) Lymphocytes/100 39.3 % (N) 20 - 40 % [facility] WBC Auto (Bld) [facility] (07497) MCH Auto Entitic 32.3 pg (N) 27 - 31 pg [facility] mass (RBC) [facility] (65702) MCHC Auto mass 34.4 g/dL (N) 32 - 36 g/dL [facility] conc (RBC) [facility] (49960) MCV Auto Entitic 93.8 fL (N) 80 - 100 fL [facility] Health volume (RBC) [facility] (72279) Monocytes Auto 0.333 10*3/uL (N) 0.3 - 0.9 [facility] Health #/vol (Bld) 10*3/uL [facility] (63048) Monocytes/100 4.9 % (N) 2 - 8 % [facility] WBC Auto (Bld) [facility] (75791) Neutrophils Auto 3.74 10*3/uL (N) 1.7 - 7 10*3/uL [facility] Health #/vol (Bld) [facility] (14031) Neutrophils/100 55 % (N) 40 - 60 % [facility] WBC Auto (Bld) [facility] (72689) Platelet mean 10.1 fL (N) 7.2 - 11.7 fL [facility] volume Auto [facility] Entitic volume [facility] (Bld) (12107) Platelets Auto 313 10*3/uL (N) 150 - 450 Community [facility] #/vol (Bld) 10*3/uL [facility] (70554) Potassium molar 4.1 mmol/L (N) 3.7 - 5.2 mmol/L [facility] (64259) Protein mass 7.4 g/dL (N) 6.4 - 8.3 g/dL [facility] (58190) RBC Auto #/vol 4.71 10*6/uL (N) 4.2 - 6.1 [facility] (Bld) 10*6/uL [facility] (85146) Sodium molar 143 mmol/L (N) 135 - 145 mmol/L [facility] (55295) T3 free mass 3.2 pg/mL (N) 2.3 - 4.2 pg/mL [facility] (05233) T4 mass conc 9.9 ug/dL (N) 4.5 - 11.7 ug/dL [facility] (23571) Thyroglobulin Ab [IU]/mL (N) 0 - 20 [IU]/mL [facility] (06990) Thyroperoxidase [IU]/mL (N) 0 - 35 [IU]/mL [facility] Ab [facility] (91940) Thyrotropin Qn 1.97 m[IU]/L (N) 0.4 - 4 m[IU]/L [facility] (29069) Urea nitrogen 15 mg/dL (N) 7 - 20 mg/dL Community [facility] mass conc [facility] (56179) Urea NOT APPLICABLE (no code) Community Healt h nitrogen/Creatin [facility] (24232) WBC Auto #/vol 6.8 10*3/uL (N) 3.5 - 10.5 Community [facility]alth (Bld) 10*3/uL [facility] (14740) No panel information on 2016-12-09 Amylase 54 U/L (no code) 40 - 140 U/L 12-09-2016 Not Avail able [Catalytic 19:40-0400 (83038) activity/Vol] Vital Signs Vital Sign Value Interpretation Reference Date Time Care Prov ider Facility (Normalized) (Normalized) Range BMI (Body Mass 30.56 kg/m2 (no code) 15 - 25 kg/m2 10-15-2018 Kelechi LEWIS Community Index) 12:20-[address] [place] [address] (30739) BMI (Body Mass 30.63 kg/m2 (no code) 15 - 25 kg/m2 07-02-2018 Kelechi CARTER Community Index) 15:40-[address] [place] [address] (57381) BMI (Body Mass 30.7 kg/m2 (no code) 15 - 25 kg/m2 06-15-2018 AMAURY RODRIGUEZ Community Index) 12:00-[address] [place] [address] (06183) BMI (Body Mass 31.09 kg/m2 (no code) 15 - 25 kg/m2 05-08-2018 Emily RODRIGUEZ Community Index) 16:20-[address] [place] [address] ([id number]) BMI (Body Mass 30.6 kg/m2 (no code) 15 - 25 kg/m2 03-01-2018 TAMI CARTER Community Index) 12:00-[address] [place] [address] (75129) BMI (Body Mass 30.41 kg/m2 (no code) 15 - 25 kg/m2 01-10-2018 Emily RODRIGUEZ Community Index) 11:00-0400 28102 [facility] (94685) BMI (Body Mass 30.41 kg/m2 (no code) 15 - 25 kg/m2 12-06-2017 Kelechi CARTER Community Index) 13:20-0400 46747 [facility] (68125) BMI (Body Mass 30.36 kg/m2 (no code) 15 - 25 kg/m2 11-08-2017 DEION JIMENEZ Community Index) 14:20-0400 [facility] [id number] [place] [address] (57147) Body height 172.72 cm (no code) cm 10-08-2013 [facility] 15:20-0500 47034 [facility] (70779) Body height 172.72 cm (no code) cm 09-18-2013 [facility] 11:32-0500 26011 [facility] (12809) Body 97.8 [degF] (no code) 97.8 - 99.0 06-15-2018 WILD GONSALES [facility] Temperature [degF] 12:00-0500 75523 [facility] (32438) Body 97.3 [degF] (no code) 97.8 - 99.0 05-18-2018 MELISSA QUINTERO [facility] Temperature [degF] 15:00-0400 86527 [facility] (93847) Body 98.7 [degF] (no code) 97.8 - 99.0 05-08-2018 WILD GONSALES [facility] Temperature [degF] 16:20-0400 49737 [facility] (16510) Body 98 [degF] (no code) 97.8 - 99.0 01-10-2018 WILD [facility] Temperature [degF] 11:00-0400 37011 [facility] (21131) Body 98.2 [degF] (no code) 97.8 - 99.0 [facility] [[facility] 14:20-0400 [facility] 86335 [facility] (25990) Body 96.8 [degF] (no code) 97.8 - 99.0 10-08-2013 [facility] temperature [degF] 15:20-0500 13971 [facility] (47715) Body 98 [degF] (no code) 97.8 - 99.0 09-18-2013 DON HORN [facility] temperature [degF] 11:32-0500 22237 [facility] (67226) Body weight 91.17 kg (no code) kg 10-15-2018 VASQUEZ LEWIS [facility] 12:20-0400 95551 [facility] (52616) Body weight 89.08 kg (no code) kg 10-08-2013 DONJASON Craig [facility] 15:20-0500 90092 [facility] (25612) Body weight 87.26 kg (no code) kg 09-18-2013 DON Craig [facility] 11:32-0500 27436 [facility] (56128) Height 172.72 cm (no code) cm 10-15-2018 [facility] 12:20-0400 78548 [facility] (43067) Height 172.72 cm (no code) cm 07-02-2018 [facility] 15:40-0500 81903 [facility] (88468) Height 172.72 cm (no code) cm 06-15-2018 WILD Vizcarra [facility] 12:00-0500 69076 [facility] (15877) Height 172.72 cm (no code) cm 05-18-2018 MELISSA COLINDRES [facility] 15:00-0400 87189 [facility] (37781) Height 172.72 cm (no code) cm 05-08-2018 WILD Vizcar[facility] 16:20-0400 72570 [facility] (28792) Height 172.72 cm (no code) cm 03-01-2018 [facility] 12:00-0400 14283 [facility] (54435) Height 172.72 cm (no code) cm 01-10-2018 WILD [facility] 11:00-0400 35994 [facility] (31454) Height 172.72 cm (no code) cm 12-06-2017 [facility] 13:20-[address] [place] [address] (26551) Height 172.72 cm (no code) cm 11-08-2017 KEELY Houselloyd nitotni 14:200400 [address] (49180) Pulse Oximetry 98 % (no code) 95 - 100 % 06-15-2018 [facility] 12:00-[address] [place] [address] (81154) Pulse Oximetry 99 % (no code) 95 - 100 % 05-08-2018 [facility] 16:20-[address] [place] [address] (64446) Weight 91.4 kg (no code) kg 07-02-2018 [facility] 15:40-[address] [place] [address] (53907) Weight 91.58 kg (no code) kg 06-15-2018 [facility] mmunity 12:00-[address] [place] [address] (15557) Weight 92.76 kg (no code) kg 05-08-2018 [facility] mmunity [id number]:200400 [address] [place] [address] (56068) Weight 91.31 kg (no code) kg 03-01-2018 [facility] 12:00-[address] [place] [address] ([id number]) Weight 90.72 kg (no code) kg 01-10-2018 [facility] mmunity 11:000400 [address] [place] [address] (27750) Weight 90.72 kg (no code) kg 12-06-2017 [facility] 13:200400 [address] [place] [address] (01881) Weight 90.58 kg (no code) kg 11-08-2017 KEELY Bustamante ity 14:200400 [address] (06802) Interventions No Information Plan of Treatment Normalized Care Care Detail Care Activity Date Care Provider F acility Activity (ACUTE) Acute Visit [facility] 06-15-2018 - EMLISSA Craig [address] [facility] 06-15-2018 - [facility] 06-15-2018 [place] ([id number]) (D-HYG/13/A) Hygiene no information 08-27-2018 - WILD RODRIGUEZ 6 [id number] [facility] 13 and above 08-27-2018 - [facility] 08-27-2018 [place] (53673) (D-PAIN/OMI) [facility] 05-15-2018 WILD RODRIGUEZ 37084 [facility] Pain/OMI DENTAL [facility] (01741) (PSY-FU-20) [facility] 08-13-2018 - VASQUEZ CARTER 03256 [facility] Psychiatry F/U 20 [facility] 08-13-2018 - [facility] 08-13-2018 [place] (25785) (TELEHEALTH) [facility] 07-02-2018 - MELISSA DAHL 21479 [facility] 07-02-2018 - [facility] 07-02-2018 [place] (20805) Goals No Information Social History The data below is from unstructured sources History Response Recorde d Date/Time Hx Family Cancer Y 2 sisters with en drometrosis 03/19/10 11:50am Hx Family Breast Cancer Y mother and sacom a 03/19/10 11:50am Hx Family Cardiac Disorders Y sister triple bypass 05 and father 03/19/10 11:50am Hx Family Stroke Y sister and father 03/19/10 11:50am History Response Recorde d Date/Time Alcohol Use Denies Use 0 04/01/13 4:08pm Recreational Drug Use Y "SMOKED RUSSEL ELZA FOR 20 YRS" 04/01/13 4:08pm Sexually Transmitted Disease Y mothe r and sacoma 04/01/13 4:08pm Functional Status The data below is from unstructured sourcesNo functional status results.No functional status results.No functional status results.No functional status results.No functional status results.No functional status results.No functional status results.No functional status results.No functional status results.No functional status information available.No functional status information available.No functional status information available.No functional status information available.No functional status information available.No f unctional status information available.No functional status information availabl e.No functional status information available.No functional status information av ailable.No functional status information available.No functional status informat ion available.No functional status information available.No functional status in formation available.No functional status information available.No functional sta tus information available.No functional status information available. Mental Status No Information Encounters Encounter Normalized Encounter Encounter Diagnosis Care Provi max Organization Date Type 05-09-2018 ([facility]) Chronic Health no information WILD RODRIGUEZ (n o [facility] - Maintenance phone) (no phone) 05-09-2018 - 05-09-2018 04-20-2018 ([facility]) Chronic Health no information WILD RODRIGUEZ (n o [facility] Maintenance phone) (no phone) 04-05-2018 ([facility]) Chronic Health no information WILD RODRIGUEZ (n o [facility] - Maintenance phone) (no phone) 04-05-2018 - 04-05-2018 08-27-2018 (D-HYG/13/A) Hygiene no information AARON PETERSON (no ph one) [facility] - 13 and above DENTAL (no phone) 08-27-2018 - 08-27-2018 05-22-2018 Admission to day no information DORIS HUNTER Work no organization name - surgery (no phone ) 05-22-2018 10-16-2019 [facility] WALK IN Acute [facility] (n o [facility] WALK IN - CARE respiratory infection, phone) CAR E (no phone) 10-16-2019 unspecified - 10-16-2019 01-18-2019 Discharged Recurring no information CINDY SHAW Work no organization name - (no phone) 04-19-2019 11-06-2018 Discharged Recurring no information RK torrez no organization name - (no phone) 12-12-2018 07-19-2018 Discharged Recurring no information RK torrez no organization name - (no phone) 08-09-2018 01-03-2019 Emergency department no information no name (no kishore ne) no organization name - patient visit (no phone) 01-03-2019 04-23-2018 Emergency department no information NERIS Gordon APRN BA TALYA no organization name - patient visit Work Phone: (no phone) 04-23-2018 NERIS BOSS 04-23-2018 Emergency department no information no name (no kishore ne) no organization name - patient visit (no phone) 04-23-2018 NEGATED Emergency department no information no name (no kishore ne) no organization name 07-28-2017 patient visit (no phone) - 07-28-2017 07-28-2017 Emergency department no information no name (no kishore ne) no organization name - patient visit (no phone) 07-28-2017 06-10-2017 Emergency department no information no name (no kishore ne) no organization name - patient visit (no phone) 06-10-2017 07-15-2016 Emergency department no information no name (no kishore ne) no organization name - patient visit (no phone) 07-15-2016 07-15-2016 Emergency department no information no name (no kishore ne) no organization name - patient visit (no phone) 07-15-2016 11-02-2011 Emergency department no information no name (no kishore ne) no organization name - patient visit (no phone) 11-02-2011 06-21-2018 Patient encounter no information no name (no phone) no organization name (no phone) 06-18-2018 Patient encounter no information no name (no phone) no organization name (no phone) 06-18-2018 Patient encounter no information no name (no phone) no organization name - (no phone) 06-19-2018 06-14-2018 Patient encounter no information no name (no phone) no organization name (no phone) NEGATED Patient encounter no information no name (no phone) no organization name 05-22-2018 (no phone) - 05-22-2018 05-17-2018 Patient encounter no information DORIS HUNTER Work no organization name - (no phone) 05-17-2018 DORIS HUNTER 04-23-2018 Patient encounter no information no name (no phone) no organization name (no phone) 03-01-2018 Patient encounter no information no name (no phone) no organization name (no phone) NEGATED Patient encounter no information no name (no phone) no organization name 01-11-2018 (no phone) 01-10-2018 Patient encounter no information no name (no phone) no organization name (no phone) 12-08-2017 Patient encounter no information no name (no phone) no organization name - (no phone) 01-08-2018 12-06-2017 Patient encounter no information no name (no phone) no organization name (no phone) 12-05-2017 Patient encounter no information no name (no phone) no organization name (no phone) 11-30-2017 Patient encounter no information no name (no phone) no organization name (no phone) 11-28-2017 Patient encounter no information no name (no phone) no organization name (no phone) 11-23-2017 Patient encounter no information no name (no phone) no organization name (no phone) 11-22-2017 Patient encounter no information no name (no phone) no organization name (no phone) 09-20-2017 Patient encounter no information no name (no phone) no organization name (no phone) 09-06-2017 Patient encounter no information no name (no phone) no organization name (no phone) 08-29-2017 Patient encounter no information no name (no phone) no organization name (no phone) Patient encounter no information no name (no phone) no organ ization name (no phone) 10-17-2019 Patient encounter no information JESSE CLIFFORD (no [facility] procedure phone) [facility] (no phone) 10-16-2019 Patient encounter no information JESSE CLIFFORD (no [facility] procedure phone) [facility] (no phone) 10-15-2019 Patient encounter no information [facility] (no 10-15-2019 phone) 08-17-2019 Patient encounter no information no name (no phone) no organization name - procedure (no phone) 08-18-2019 07-10-2019 Patient encounter no information no name (no phone) no organization name - procedure (no phone) 07-10-2019 05-30-2019 Patient encounter no information no name (no phone) no organization name procedure (no phone) 05-14-2019 Patient encounter no information no name (no phone) no organization name procedure (no phone) 05-14-2019 Patient encounter no information no name (no phone) no organization name procedure (no phone) 05-02-2019 Patient encounter no information no name (no phone) no organization name procedure (no phone) 04-18-2019 Patient encounter no information no name (no phone) no organization name procedure (no phone) 03-12-2019 Patient encounter no information no name (no phone) no organization name procedure (no phone) 01-25-2019 Patient encounter no information no name (no phone) no organization name procedure (no phone) 01-25-2019 Patient encounter no information no name (no phone) no organization name procedure (no phone) 01-23-2019 Patient encounter no information no name (no phone) no organization name procedure (no phone) 01-23-2019 Patient encounter no information no name (no phone) no organization name procedure (no phone) 01-18-2019 Patient encounter no information no name (no phone) no organization name procedure (no phone) 01-18-2019 Patient encounter no information no name (no phone) no organization name - procedure (no phone) 04-17-2019 01-03-2019 Patient encounter no information no name (no phone) no organization name procedure (no phone) 01-03-2019 Patient encounter no information no name (no phone) no organization name procedure (no phone) 01-01-2019 Patient encounter no information no name (no phone) no organization name procedure (no phone) 01-01-2019 Patient encounter no information no name (no phone) no organization name procedure (no phone) 12-28-2018 Patient encounter no information no name (no phone) no organization name procedure (no phone) 12-28-2018 Patient encounter no information no name (no phone) no organization name procedure (no phone) 12-26-2018 Patient encounter no information no name (no phone) no organization name procedure (no phone) 12-18-2018 Patient encounter no information no name (no phone) no organization name procedure (no phone) 12-12-2018 Patient encounter no information no name (no phone) no organization name procedure (no phone) 12-11-2018 Patient encounter no information no name (no phone) no organization name procedure (no phone) 11-19-2018 Patient encounter no information no name (no phone) no organization name procedure (no phone) 11-06-2018 Patient encounter no information no name (no phone) no organization name - procedure (no phone) 12-11-2018 11-06-2018 Patient encounter no information no name (no phone) no organization name - procedure (no phone) 12-10-2018 10-25-2018 Patient encounter no information no name (no phone) no organization name procedure (no phone) 10-22-2018 Patient encounter no information no name (no phone) no organization name procedure (no phone) 10-18-2018 Patient encounter no information no name (no phone) no organization name procedure (no phone) 10-16-2018 Patient encounter no information no name (no phone) no organization name procedure (no phone) 10-15-2018 Patient encounter no information no name (no phone) no organization name procedure (no phone) 10-11-2018 Patient encounter no information no name (no phone) no organization name procedure (no phone) 10-09-2018 Patient encounter no information no name (no phone) no organization name procedure (no phone) 10-05-2018 Patient encounter no information no name (no phone) no organization name - procedure (no phone) 10-06-2018 10-02-2018 Patient encounter no information no name (no phone) no organization name procedure (no phone) 09-28-2018 Patient encounter no information no name (no phone) no organization name procedure (no phone) 09-25-2018 Patient encounter no information no name (no phone) no organization name procedure (no phone) 09-20-2018 Patient encounter no information no name (no phone) no organization name procedure (no phone) 09-18-2018 Patient encounter no information no name (no phone) no organization name procedure (no phone) 09-14-2018 Patient encounter no information no name (no phone) no organization name procedure (no phone) 09-12-2018 Patient encounter no information no name (no phone) no organization name procedure (no phone) 09-07-2018 Patient encounter no information no name (no phone) no organization name - procedure (no phone) 09-08-2018 08-23-2018 Patient encounter no information no name (no phone) no organization name - procedure (no phone) 08-23-2018 08-15-2018 Patient encounter no information no name (no phone) no organization name - procedure (no phone) 08-16-2018 07-26-2018 Patient encounter no information no name (no phone) no organization name procedure (no phone) 07-19-2018 Patient encounter no information no name (no phone) no organization name - procedure (no phone) 08-09-2018 07-11-2018 Patient encounter no information no name (no phone) no organization name procedure (no phone) 07-05-2018 Patient encounter no information no name (no phone) no organization name procedure (no phone) 07-02-2018 Patient encounter no information no name (no phone) no organization name procedure (no phone) 07-02-2018 Patient encounter no information no name (no phone) no organization name procedure (no phone) 05-22-2018 Patient encounter no information no name (no phone) no organization name - procedure (no phone) 05-22-2018 05-17-2018 Patient encounter no information no name (no phone) no organization name - procedure (no phone) 05-17-2018 04-25-2018 Patient encounter no information no name (no phone) no organization name - procedure (no phone) 04-26-2018 12-08-2017 Patient encounter no information no name (no phone) no organization name - procedure (no phone) 01-08-2018 11-23-2017 Patient encounter no information no name (no phone) no organization name procedure (no phone) 07-28-2017 Patient encounter no information no name (no phone) no organization name procedure (no phone) 04-14-2017 Patient encounter no information no name (no phone) no organization name procedure (no phone) 04-14-2017 Patient encounter no information no name (no phone) no organization name procedure (no phone) 01-18-2017 Patient encounter no information no name (no phone) no organization name - procedure (no phone) 01-18-2017 01-18-2017 Patient encounter no information no name (no phone) no organization name - procedure (no phone) 01-18-2017 01-16-2017 Patient encounter no information no name (no phone) no organization name - procedure (no phone) 01-16-2017 12-15-2016 Patient encounter no information no name (no phone) no organization name procedure (no phone) 12-15-2016 Patient encounter no information no name (no phone) no organization name procedure (no phone) 12-09-2016 Patient encounter no information no name (no phone) no organization name - procedure (no phone) 12-10-2016 11-25-2016 Patient encounter no information no name (no phone) no organization name procedure (no phone) 11-25-2016 Patient encounter no information no name (no phone) no organization name procedure (no phone) 05-19-2016 Patient encounter no information no name (no phone) no organization name procedure (no phone) 05-19-2016 Patient encounter no information no name (no phone) no organization name procedure (no phone) 01-18-2016 Patient encounter no information no name (no phone) no organization name procedure (no phone) 01-18-2016 Patient encounter no information no name (no phone) no organization name procedure (no phone) 01-07-2016 Patient encounter no information no name (no phone) no organization name procedure (no phone) 01-07-2016 Patient encounter no information no name (no phone) no organization name procedure (no phone) 11-12-2015 Patient encounter no information no name (no phone) no organization name procedure (no phone) 09-29-2015 Patient encounter no information no name (no phone) no organization name - procedure (no phone) 09-29-2015 09-29-2015 Patient encounter no information no name (no phone) no organization name - procedure (no phone) 09-29-2015 09-23-2015 Patient encounter no information no name (no phone) no organization name procedure (no phone) 09-23-2015 Patient encounter no information no name (no phone) no organization name procedure (no phone) 08-17-2015 Patient encounter no information no name (no phone) no organization name procedure (no phone) 08-17-2015 Patient encounter no information no name (no phone) no organization name procedure (no phone) 05-13-2015 Patient encounter no information no name (no phone) no organization name procedure (no phone) 03-31-2015 Patient encounter no information no name (no phone) no organization name procedure (no phone) 03-24-2015 Patient encounter no information no name (no phone) no organization name procedure (no phone) 03-24-2015 Patient encounter no information no name (no phone) no organization name procedure (no phone) 09-17-2014 Patient encounter no information no name (no phone) no organization name procedure (no phone) 09-17-2014 Patient encounter no information no name (no phone) no organization name procedure (no phone) 09-02-2014 Patient encounter no information no name (no phone) no organization name procedure (no phone) 08-25-2014 Patient encounter no information no name (no phone) no organization name procedure (no phone) 06-26-2014 Patient encounter no information no name (no phone) no organization name procedure (no phone) 06-26-2014 Patient encounter no information no name (no phone) no organization name procedure (no phone) 03-12-2014 Patient encounter no information no name (no phone) no organization name - procedure (no phone) 03-26-2014 03-06-2014 Patient encounter no information no name (no phone) no organization name - procedure (no phone) 03-31-2014 03-06-2014 Patient encounter no information no name (no phone) no organization name - procedure (no phone) 03-31-2014 11-29-2013 Patient encounter no information no name (no phone) no organization name procedure (no phone) 11-29-2013 Patient encounter no information no name (no phone) no organization name procedure (no phone) 06-03-2013 Patient encounter no information no name (no phone) no organization name - procedure (no phone) 06-18-2013 12-20-2012 Patient encounter no information no name (no phone) no organization name procedure (no phone) 02-09-2012 Patient encounter no information no name (no phone) no organization name procedure (no phone) 12-06-2011 Patient encounter no information no name (no phone) no organization name procedure (no phone) 11-07-2011 Patient encounter no information no name (no phone) no organization name procedure (no phone) 03-16-2018 Periodic oral no information no name (no phone) no organization name evaluation (no phone) 12-08-2017 Registered Recurring no information RK torrez no organization name (no phone) 10-17-2019 Telephone encounter no information JESSE CLIFFORD (no [facility] - phone) (no phone) 10-17-2019 - 10-17-2019 11-08-2017 Telephone encounter no information KEELY Weller ([facility] [employer] (no phone) no information Encounter for dental no name (no phone) no or ganization name examination and (no phone) cleaning without abnormal findings no information Encounter for other no name (no phone) no org anization name preprocedural (no phone) examination no information Encounter for no name (no phone) no organiza tion name preprocedural (no phone) laboratory examination Medical Equipment No Information Payers Normalized Payer Value Medicaid no information History general Narrative - Reported Note Type Note Facility History general Narrative - Reported Type Medical severe manic depression History Medical Anxiety disorder History Medical bipolar disorder History Medical hypertension History Medical hyperlipidemia History Medical chronic pain History Medical chronic sleep disorder History Medical degenerative disease lumbos acral spine History Medical fibromyalgia History Medical acid reflux History Medical PTSD History Medical Gastritis, History Medical Bronchitis History Medical Ulcers History Medical endometriosis/fibroids History Surgical carpal tunnel release- heaven Marquez History Surgical Upper Lateral Release- Tenn is Elbow- Dr Marquez History Surgical rotator cuff tear repair on left and right shoulder-- done at different times (2 History years apart) - Dr Marquez Surgical Spinal disc replacement L1- L5 - Dr Muhammad ([place]) History Surgical appendectomy 1983 History Surgical hysterectomy 1993 History Surgical dilatation and curettage History Surgical heart cath- Dr Shaw [address] Hunter bowel and intestines seperated [address] hunter removed skin tag and cyst 2017 History Surgical Colonoscopy 04/2019 History Hospitaliz Hospitalization for surgery only ation History [facility] ([id number]) History general Narrative - Reported Note Type Note Facility History general Narrative - Reported Type Medical severe manic depression History Medical Anxiety disorder History Medical bipolar disorder History Medical hypertension History Medical hyperlipidemia History Medical chronic pain History Medical chronic sleep disorder History Medical degenerative disease lumbos acral spine History Medical fibromyalgia History Medical acid reflux History Medical PTSD History Medical Gastritis, History Medical Bronchitis History Medical Ulcers History Medical endometriosis/fibroids History Medical chrones History Surgical carpal tunnel release- heaven Marquez History Surgical Upper Lateral Release- Tenl[place] is Elbow- Dr Marquez History Surgical rotator cuff tear repair on left and right shoulder-- done at different times (2 History years apart) - Dr Marquez Surgical Spinal disc replacement L1- L5 - Dr Muhammad ([place]) History Surgical appendectomy 1983 History Surgical hysterectomy 1993 History Surgical dilatation and curettage History Surgical heart cath- Dr Shaw [address] Hunter bowel and intestines seperated [address] hunter removed skin tag and cyst 2017 History Surgical Colonoscopy and upper GI 04/2019 History Surgical endoscopy 08/13/19 History Hospitaliz Hospitalization for surgery only ation History [facility] ([id number]) Advance Directives Directive Response Recor ded Date/Time Advance Directives No 10:07am Health Care Power of Churn Drill Operator No 09/29/15 10:07am Organ Donor Yes 09/29/15 10:07am Resuscitation Status Full Code 09/29/15 10:07am Directive Response Recor ded Date/Time Advance Directives No 1:54pm Health Care Power of Churn Drill Operator No 03/06/14 1:54pm Organ Donor Yes 03/06/14 1:54pm Directive Response Recor ded Date Advance Directives N 4:08pm Health Care Power of Churn Drill Operator N 04/01/13 4:08pm Organ Donor Y 04/01/13 4 :08pm Directive Response Recor ded Date/Time Advance Directives No 10:55pm Health Care Power of Churn Drill Operator No 03/03/15 10:55pm Organ Donor Yes 03/03/15 10:55pm Resuscitation Status Full Code 03/03/15 10:55pm Directive Response Recor ded Date/Time Advance Directives No 1:54pm Health Care Power of Churn Drill Operator No 03/06/14 1:54pm Organ Donor Yes 03/06/14 1:54pm Resuscitation Status Full Code 03/06/14 1:54pm Directive Response Recor ded Date/Time Advance Directives No 10:20am Health Care Power of Churn Drill Operator No 01/18/17 10:20am Organ Donor Yes 01/18/17 10:20am Resuscitation Status Full Code 01/18/17 10:20am Directive Response Recor ded Date/Time Advance Directives No 1:25pm Health Care Power of Churn Drill Operator No 06/10/17 1:25pm Organ Donor Yes 06/10/17 1:25pm Resuscitation Status Full Code 06/10/17 1:25pm Directive Response Recor ded Date/Time Advance Directives No 12:54pm Health Care Power of Churn Drill Operator No 07/28/17 12:54pm Organ Donor Yes 07/28/17 12:54pm Directive Response Recor ded Date/Time Advance Directives No 9:24am Health Care Power of Churn Drill Operator No 05/22/18 9:24am Organ Donor Yes 10/16/18 9:24am Resuscitation Status Full Code 05/22/18 9:24am Directive Response Recor ded Date/Time Advance Directives No 11:53am Health Care Power of Churn Drill Operator No 05/17/18 11:53am Organ Donor Yes 05/17/18 11:53am Resuscitation Status Full Code 05/17/18 11:53am Directive Response Recor ded Date/Time Advance Directives No 9:24am Health Care Power of Churn Drill Operator No 05/22/18 9:24am Organ Donor Yes 05/22/18 9:24am Directive Response Recor ded Date/Time Advance Directives No 10:37am Health Care Power of Churn Drill Operator No 01/03/19 10:37am Organ Donor Yes 01/03/19 10:37am Discharge Instructions Patient Instructions Physician Instructions New, Converted or Re-Newed RX: RX on Chart Instructions Place bactroban bid to affected areas in bilateral inguinal areas (start at hospital and then take home). Keep wounds dressed unless soiled or wet. Can remove if needed but leave if place if possible. Additional Follow Up: Yes (10 days for incision check and suture removal) Activity: Activity as Tolerated Driving Instructions: No Driving for 24 Hours NO SMOKING: NO SMOKING Nothing Inside Vagina: No Douching, No [place] (until sutures removed), No Tampons Discharge Diet: No Restrictions Symptoms to Report to : Bleeding Excessive, Pain Increased, Urine Color Change, Constipation(Persistant), Fever Over 101 Degrees F, Vaginal Bleeding Increase, Pain/Pressure in Shoulder, Vaginal Discharge Foul, Diarrhea(Persistant), Nausea/Vomiting For Any Problems or Questions: Contact Your Physician Infection Signs and Symptoms: Increased Redness, Foul Odor of Wound, Increased Drainage, Skin Itchy or Has a Rash, Increased Swelling, Temperature Above 101 F Operative Area Clean and Dry: Keep Incision Clean/Dry (keep incisions covered unless soiled or wet.) Stitches/Purvi/Dermabond: Dermabond, Care of Stitches Bathing Instructions: Shower No hospital discharge instructions.No hospital discharge instructions.No hospital discharge instructions.No hospital discharge instructions. Patient Instructions Physician Instructions 1.: Gastritis, Other Findings (Duodenitis) 2.: Polyp 3.: Diverticulosis 4.: Internal Hemorrhoids - Activity: You might feel a little sleepy until tomorrow. This is due to the medicine you received to relax you. Until tomorrow, you should: NOT drive a car, operate machinery or power tools. NOT drink any alcoholic beverages. NOT make any important decisions or sign importortant papers. Do not return to work until tomorrow, unless otherwise instructed. Resume previous activities tomorrow. Diet: Start by taking liquids. If you tolerate liquids, advance to solid food. Make appointment for one week, - If you experience excessive bleeding, unusual abdominal pain, fever, or chest pain, contact your doctor immediately. [phone] - I have received and understand the above instructions and will call my doctor if I have any further questions. Patient Signature Date Nurse Signature Other (Relationship) No hospital discharge instruction information available.No hospital discharge i nstruction information available.No hospital discharge instruction information a vailable.No hospital discharge instruction information available.No hospital dis charge instruction information available.No hospital discharge instruction infor mation available.No hospital discharge instruction information available. Summary Purpose eClinicalWorks SubmissioneClinicalWorks Submission Additional Source Comments This clinical document has been generated using [employer] software that has been certified by the Office of the National Coordinator for Health Information Technology (ONC 15.99.04.3023.Diam.[id number]) and the National Committee for Private Inquiry Agent (NCQA, as an eMeasure certified technology). FOR RECORDS PERTAINING TO PATIENTS WHO ARE OR HAVE BEEN ENROLLED IN A CHEMICAL D EPENDENCY/SUBSTANCE ABUSE PROGRAM, SOME INFORMATION MAY BE OMITTED. This clinica l summary was aggregated from multiple sources. Caution should be exercised in using it in the provision of clinical care. This summary normalizes information from multiple sources, and as a consequence, information in this document may ma terially change the coding, format and clinical context of patient data. In cesar tion, data may be omitted in some cases. CLINICAL DECISIONS SHOULD BE BASED ON T HE PRIMARY CLINICAL RECORDS. [employer] provides no warranty or guara ntee of the accuracy or completeness of information in this document.The followi ng information is based on time limited clinical information UNRECOGNIZED CONTENT PROVIDED BELOW FOR UNRECOGNIZED SECTION MEDICAL (GENERAL) HISTORY Type Description Date Medical [...] Medical History Ulcers Surgical History carpal tunnel relea se- bilateral- Dr Marquez Surgical History Upper Lateral Relea se- Tennis Elbow- Dr Marquez Surgical History rotator cuff tear r epair on left and right shoulder-- done at different times (2 years apart) - Dr Marquez Surgical History Spinal disc replace ment L1- L5 - Dr Muhammad ([place]) Surgical History appendectomy 1984 Surgical History hysterectomy 1993 Surgical History dilatation and curettage Surgical History heart cath- Dr Shaw [address] Hunter bowel and intestines 2015 Hospitalization History Hospitalizat ion for surgery only Type Description Date Medical History severe manic [...] Medical History Ulcers Surgical History carpal tunnel relea se- bilateral- Dr Marquez Surgical History Upper Lateral Relea se- Tennis Elbow- Dr Marquez Surgical History rotator cuff tear r epair on left and right shoulder-- done at different times (2 years apart) - Dr Marquez Surgical History Spinal disc replace ment L1- L5 - Dr Muhammad ([place]) Surgical History appendectomy 1984 Surgical History hysterectomy 1993 Surgical History dilatation and curettage Surgical History heart cath- Dr Shaw [address] Hunter bowel and intestines [address] hunter removed ski n tag and cyst 2017 Hospitalization History Hospitalizat ion for surgery only Type Description Date Medical History severe manic depression Medical History Anxiety disorder Medical History bipolar disorder Medical History hypertension Medical History hyperlipidemia Medical History chronic pain Medical History chronic sleep disorder Medical History degenerative disease lumbosacral spine Medical History fibromyalgia Medical History acid reflux Medical History PTSD Medical History Gastritis, Medical History Bronchitis Medical History Ulcers Medical History endometriosis/fibroids Surgical History carpal tunnel relea se- bilateral- Dr Marquez Surgical History Upper Lateral Relea se- Tennis Elbow- Dr Marquez Surgical History rotator cuff tear r epair on left and right shoulder-- done at different times (2 years apart) - Dr Marquez Surgical History Spinal disc replace ment L1- L5 - Dr Muhammad ([place]) Surgical History appendectomy 1983 Surgical History hysterectomy 1993 Surgical History dilatation and curettage Surgical History heart cath- Dr Shaw [address] Hunter bowel and intestines seperated [address] hunter removed ski n tag and cyst 2017 Hospitalization History Hospitalizat ion for surgery only UNRECOGNIZED CONTENT PROVIDED BELOW FOR UNRECOGNIZED SECTION REASON FOR VISIT f/u-Katty COTE, PDMControlled Med RefillProphyRequests return callwart remova carol -[place] MARequests return callxanax refillPOSSIBLE DRY SOCKET- TLEWISreferrismael medina requestDI for referralpain, shoulder, PT reports she starts physcial therapy a nd has seen Dr. Marquez. PT notes she will f/u with Dr. Marquez. -[place] COET F\\U P alfonso mccord [place], contract and PDMxanax refillMedication questionEMR-MigEMR- [id number] OKW-NuzEND-YifCUU-PtyWSH-[id number]-YlqTVO-MigBH f/u-Katty COTE, contract and PDM
[2019-11-08] MEDS: PANTOPRAZOLE 40 MG (PROTONIX) VIAL IV ONE ×2 (08:40→08:45)
--- OUTSIDE RECORDS SUMMARY | 2019-11-08 08:40 | XMS REPORT ---
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 Active 30605511 Problem Opioid use disorder, moderate, in sustained remission F11.21 Active 45419139 Problem Tobacco use Z72.0 Active 55395731 8 Problem Cocaine use disorder, moderate, in sustained remission F14.21 Active 12858288 Problem GERD with esophagitis K21.0 Active 758581599 Problem Prediabetes 790.29 Active 9188628 Problem PTSD (post-traumatic stress disorder) F43.10 Active 68893520 Problem Bipolar disorder F31.9 Active 137 11718 Problem Gastroesophageal reflux disease, esophagitis pre sence not specified K21.9 Active 867108774 Problem Menopausal disorder N95.9 Active 767935005 Problem Insomnia, unspecified type G47.00 Act avelina 216371181 Problem Cigarette nicotine dependence without complication F17.210 Active 21790014 Problem Cannabis abuse F12.10 Active 60489 009 Problem Irritable bowel syndrome with diarrhea K58.0 Active 745931926 Problem Acute pain of left shoulder M25.512 Ac tive 61166526 Problem Mixed hyperlipidemia E78.2 Active 256111841 Problem Generalized anxiety disorder F41.1 A ctive 54582484 Problem Arthritis M19.90 Active 5845569 Problem Other chronic pain G89.29 Active 8 3974523 Problem Fibromyalgia M79.7 Active 7152197 05 Problem Perimenopausal vasomotor symptoms N95.1 Active 549937008 ALLERGIES No Information ENCOUNTERS Encounter Location Date Diagnosis [place] [id number] [place] [address] Oct, [facility] [address] [address] 12 Oct, 2019 Acute rhinosinusitis J01.90 ; Generalize d anxiety disorder F41.1 ; Major depressive disorder, recurrent episode, moderate F33.1 ; Gastroesophageal reflux disease, esophagitis presence not specified K21.9 ; Irritable bowel syndrome with diarrhea K58.0 and Mixed hyperlipidemia E78.2 [facility] WALK IN [facility] [address] [facility] [id number] [place] [address] Oct, Viral upper respiratory trac t infection J06.9 [place] [address] [address] 19 Sep, 2019 [place] [address] [address] 14 Sep, 2019 Major depressive disorder, recurrent epi sode, moderate F33.1 ; Generalized anxiety disorder F41.1 ; Irritable bowel syndrome with diarrhea K58.0 and Epigastric abdominal pain R10.13 [facility] [address] [facility] [address] May, Dental examination Z01.20 and Caries K02.9 [place] [address] [address] 08 May, 2019 Right upper quadrant pain R10.11 and Mix ed hyperlipidemia E78.2 [place] [address] [address] Mar, Perimenopausal vasomotor symptoms N95.1 [place] [address] [address] Mar, [place] [address] [address] Mar, [place] [address] [address] Mar, [place] [address] [address] Mar, Perimenopausal vasomotor symptoms N95.1 ; Irritable bowel syndrome with diarrhea K58.0 ; Insomnia, unspecified type G47.00 and Weight gain R63.5 [place] [address] [address] 16 Feb, 2019 [place] [address] [address] Feb, [place] [address] [address] Jan, [place] [address] [address] Jan, Fibromyalgia M79.7 ; Insect bite (nonven omous) of lower back and pelvis, sequela S30.860S ; Bitten or stung by nonvenomous insect and other nonvenomous arthropods, sequela W57.XXXS ; Arthritis M19.90 and Menopausal disorder N95.9 [place] [address] [address] Jan, [place] [address] [address] Jan, Mixed hyperlipidemia E78.2 [place] [address] [address] December, Screening for breast cancer Z12.31 and B reast lump N63.0 [place] [address] [address] December, Chest pain, unspecified type R07.9 [place] [address] [address] December, Chest pain, unspecified type R07.9 ; Gas troesophageal reflux disease, esophagitis presence not specified K21.9 and Left breast lump N63.20 [place] [address] [address] December, [facility] [address] [facility] [id number] [address] [place] [address] December, Suprapubic abdominal pain R1 0.2 and Dysuria R30.0 [facility] [id number] [place] [address] December, [facility] [address] [address] December, Cannabis abuse F12.10 ; Generalized anxi ety disorder F41.1 ; Methamphetamine use disorder, severe, in sustained remission F15.21 ; Alcohol use disorder, mild, in sustained remission F10.11 ; PTSD (post-traumatic stress disorder) F43.10 ; Cocaine use disorder, moderate, in sustained remission F14.21 and Bipolar disorder F31.9 [facility] [address] [address] Nov, Major depressive disorder, recurrent epi sode, moderate F33.1 ; Cannabis abuse F12.10 ; Generalized anxiety disorder F41.1 ; Methamphetamine use disorder, severe, in sustained remission F15.21 ; Alcohol use disorder, mild, in sustained remission F10.11 ; PTSD (post-traumatic stress disorder) F43.10 and Cocaine use disorder, moderate, in sustained remission F14.21 [facility] [id number] [place] [address] Oct, Major depressive disorder, recurrent epi sode, moderate F33.1 ; Cannabis abuse F12.10 ; Generalized anxiety disorder F41.1 ; Methamphetamine use disorder, severe, in sustained remission F15.21 ; Alcohol use disorder, mild, in sustained remission F10.11 ; PTSD (post-traumatic stress disorder) F43.10 and Cocaine use disorder, moderate, in sustained remission F14.21 [facility] [id number] [place] [address] Sep, Major depressive disorder, recurrent epi sode, moderate F33.1 [facility] [address] [id number] [place] [id number] Aug, [facility] [id number] [place] [address] Jul, Dysuria R30.0 [facility] [address] [address] Jul, Major depressive disorder, recurrent epi sode, moderate F33.1 [facility] [address] [address] Jun, Major depressive disorder, recurrent epi sode, moderate F33.1 [place] [address] [address] Jun, Major depressive disorder, recurrent epi sode, moderate F33.1 [place] [address] [address] Jun, Acute pain of left shoulder M25.512 and Cigarette nicotine dependence without complication F17.210 [place] [address] [address] May, [place] [address] [address] May, Cocaine use disorder, moderate, in susta ined remission F14.21 [place] [id number] [place] [address] May, [facility] [address] [facility], [place] [address] May, Dental examination Z01.20 [facility] [address] [facility] [place] [id number] May, Dental examination Z01.20 and Caries K02 .9 [place] [id number] [place] [address] May, Common wart B07.8 [place] [address] [address] May, [place] [address] [address] Apr, Cocaine use disorder, moderate, in susta ined remission F14.21 [place] [id number] [place] [address] 14 Apr, 2018 [facility] [address] [id number] [place] [id number] 13 Apr, 2018 Dental examination Z01.20 [facility] [address] [id number] [place] [id number] 10 Mar, 2018 Encounter for dental exam and cleaning w /o abnormal findings Z01.20 [facility] [address] [address] 07 Mar, 2018 [place] [address] [address] Feb, Cocaine use disorder, moderate, in susta ined remission F14.21 ; Opioid use disorder, moderate, in sustained remission F11.21 ; Alcohol use disorder, mild, in sustained remission F10.11 ; Tobacco use Z72.0 ; PTSD (post-traumatic stress disorder) F43.10 ; Methamphetamine use disorder, severe, in sustained remission F15.21 ; Generalized anxiety disorder F41.1 ; Cannabis abuse F12.10 and Major depressive disorder, recurrent episode, moderate F33.1 [place] [address] [address] Jan, Cocaine use disorder, moderate, in susta ined remission F14.21 [place] [address] [address] Jan, Cocaine use disorder, moderate, in susta ined remission F14.21 ; Opioid use disorder, moderate, in sustained remission F11.21 ; Alcohol use disorder, mild, in sustained remission F10.11 ; Tobacco use Z72.0 ; PTSD (post-traumatic stress disorder) F43.10 ; Methamphetamine use disorder, severe, in sustained remission F15.21 ; Generalized anxiety disorder F41.1 ; Cannabis abuse F12.10 and Major depressive disorder, recurrent episode, moderate F33.1 [place] [address] [address] Jan, Dysuria R30.0 and GERD with esophagitis K21.0 [place] [id number] [place] [address] December, Major depressive disorder, recurrent epi sode, moderate F33.1 [facility] [id number] [place] [address] December, [facility] [id number] [place] [address] December, Major depressive disorder, recurrent epi sode, moderate F33.1 ; Generalized anxiety disorder F41.1 ; Cannabis abuse F12.10 ; PTSD (post- traumatic stress disorder) F43.10 ; Methamphetamine use disorder, severe, in sustained remission F15.21 ; Cocaine use disorder, moderate, in sustained remission F14.21 ; Opioid use disorder, moderate, in sustained remission F11.21 ; Alcohol use disorder, mild, in sustained remission F10.11 and Tobacco use Z72.0 [place] [id number] [place] [address] Nov, [facility] [address] [place] [address] [address] Nov, [facility] [address] [address] Nov, Wellness examination Z00.00 ; Encounter for immunization Z23 ; Screening for osteoporosis Z13.820 ; Screening for breast cancer Z12.31 and Left breast lump N63.20 [facility] [address] [facility] [place] [id number] Oct, Dental examination Z01.20 [facility] [id number] [place] [address] Oct, [facility] [address] [address] Oct, [facility] [address] [address] Sep, [facility] [address] [address] Sep, [facility] [address] [address] 14 Sep, 2017 Left otitis media with effusion H65.92 ; Acute suppurative otitis media of right ear without spontaneous rupture of tympanic membrane, recurrence not specified H66.001 ; Dizziness R42 and Fatigue 780.79 [place] [address] [address] Aug, Major depressive disorder, recurrent epi sode, moderate F33.1 ; Generalized anxiety disorder F41.1 ; Cannabis abuse F12.10 ; PTSD (post- traumatic stress disorder) F43.10 ; Methamphetamine use disorder, severe, in sustained remission F15.21 ; Cocaine use disorder, moderate, in sustained remission F14.21 ; Opioid use disorder, moderate, in sustained remission F11.21 ; Alcohol use disorder, mild, in sustained remission F10.11 and Tobacco use Z72.0 [facility] WALK IN [facility] [address] [facility] [id number] [address] [place] [address] Aug, Ingrown right big toenail L6 0.0 [place] [address] [address] Aug, [place] [address] [address] Aug, PTSD (post-traumatic stress disorder) F4 3.10 [place] [address] [address] Aug, Major depressive disorder, recurrent epi sode, moderate F33.1 ; Generalized anxiety disorder F41.1 and Cannabis abuse F12.10 [place] [address] [address] Jul, [place] [address] [address] Jul, [place] [address] [address] Jul, [place] [address] [address] Jul, Major depressive disorder, recurrent epi sode, moderate F33.1 ; Generalized anxiety disorder F41.1 and Cannabis abuse F12.10 [place] [address] [place] [address] Jul, [place] [address] [address] Jul, [place] [address] [address] Jul, Hyperlipidemia 272.4 [place] [address] [place] [address] Jul, PTSD (post-traumatic stress disorder) F4 3.10 [place] [address] [address] Jul, Tobacco use Z72.0 ; Alcohol use disorder , mild, in sustained remission F10.11 ; Opioid use disorder, moderate, in sustained remission F11.21 ; Methamphetamine use disorder, severe, in sustained remission F15.21 ; Cocaine use disorder, moderate, in sustained remission F14.21 ; PTSD (post-traumatic stress disorder) F43.10 ; Major depressive disorder, recurrent episode, moderate F33.1 ; Generalized anxiety disorder F41.1 and Cannabis abuse F12.10 [place] [address] [address] Jul, [address] [address] Jul, Dysuria R30.0 and Mixed hyperlipidemia E 78.[address] [address] 30 Jun, 2017 Major depressive disorder, recurrent epi sode, moderate F33.1 ; Generalized anxiety disorder F41.1 and Cannabis abuse F12.10 [place] [address] [id number] Jun, [place] [address] 15 Jun, 2017 Generalized anxiety disorder F41.1 ; Blayne or depressive disorder, recurrent episode, moderate F33.1 ; PTSD (post-traumatic stress disorder) F43.10 ; Opioid use disorder, moderate, in sustained remission F11.21 ; Cannabis abuse F12.10 ; Alcohol use disorder, mild, in sustained remission F10.11 ; Methamphetamine use disorder, severe, in sustained remission F15.21 ; Cocaine use disorder, moderate, in sustained remission F14.21 and Tobacco use Z72.[address] [address] Jun, Major depressive disorder, recurrent epi sode, moderate F33.1 ; Generalized anxiety disorder F41.1 and Cannabis abuse F12.[address] [address] Jun, [address] [address] Jun, [address] [address] Jun, Major depressive disorder, recurrent epi sode, moderate F33.1 ; Generalized anxiety disorder F41.1 and Cannabis abuse F12.10 [facility] [address] [id number] Mar, Dental examination Z01.20 [facility] [address] [id number] Feb, Dental examination Z01.[address] [address] Mar, [address] [address] Mar, [address] [address] Feb, Hyperlipidemia 272.4 and Prediabetes [address] [address] Feb, Fatigue 780.79 and Hyperlipidemia 272.[address] [address] Feb, Lumbago 724.2 ; Hyperlipidemia 272.4 ; I nsomnia 780.52 and Fatigue 780.79 [facility] [id number] [place] [address] Nov, [facility] [id number] [place] [address] Nov, [facility] [id number] [place] [address] Mar, [facility] [id number] [place] [address] Mar, [facility] [id number] [place] [address] Jan, [facility] [id number] [place] [address] Jan, [facility] [id number] [place] [address] December, [facility] [id number] [place] [address] December, [facility] [id number] [place] [address] Nov, [facility] [id number] [place] [address] Nov, [facility] [id number] [place] [address] Nov, [facility] [id number] [place] [address] Nov, [facility] [id number] [place] [address] Nov, [facility] [id number] [place] [address] Nov, [facility] [id number] [place] [address] Oct, [facility] [id number] [place] [address] Oct, [facility] [address] [facility] [id number] [place] [address] Oct, [facility] [address] [id number] [place] [address] Oct, [facility] [address] [id number] [place] [address] Oct, [facility] [address] [id number] [place] [address] Oct, [facility] [address] [id number] [place] [address] Oct, [facility] [address] [id number] [place] [address] Oct, [facility] [address] [id number] [place] [address] Oct, [facility] [address] [id number] [place] [address] Oct, [facility] [address] [id number] [place] [address] Oct, [facility] [address] [id number] [place] [address] Oct, [facility] [address] [id number] [place] [address] Oct, [facility] [address] [id number] [place] [address] Sep, [facility] [address] [id number] [place] [address] Sep, [facility] [address] [id number] [place] [address] Sep, [facility] [address] [id number] [place] [address] Sep, [facility] [address] [id number] [place] [address] Sep, [facility] [address] [id number] [place] [address] 20 Sep, 2013 [facility] [address] [facility] [id number] [place] [address] 18 Sep, 2013 [facility] [address] [id number] [place] [address] 18 Sep, 2013 [facility] [address] [id number] [place] [address] 14 Sep, 2013 [facility] [address] [id number] [place] [address] 14 Sep, 2013 [facility] [address] [id number] [place] [address] 14 Sep, 2013 [facility] [address] [id number] [place] [address] 14 Sep, 2013 [facility] [address] [id number] [place] [address] 14 Sep, 2013 [facility] [address] [id number] [place] [address] 14 Sep, 2013 [facility] [address] [id number] [place] [address] 13 Sep, 2013 [facility] [address] [id number] [place] [address] Sep, [facility] [address] [id number] [place] [address] Sep, [facility] [address] [id number] [place] [address] Sep, [facility] [address] [id number] [place] [address] Sep, [facility] [address] [id number] [place] [address] 03 Sep, 2013 [facility] [address] [id number] [place] [address] Aug, [facility] [address] [id number] [place] [address] Aug, [facility] [address] [id number] [place] [address] Aug, [facility] [address] [id number] [place] [address] Aug, [facility] [address] [id number] [place] [address] Aug, [facility] [address] [id number] [place] [address] Jul, [facility] [address] [id number] [place] [address] Jul, [facility] [address] [id number] [place] [address] Jul, [facility] [address] [id number] [place] [address] Jul, [facility] [address] [id number] [place] [address] Jul, [facility] [address] [id number] [place] [address] Jul, [facility] [address] [id number] [place] [address] Jul, [facility] [address] [id number] [place] [address] Jul, [facility] [address] [id number] [place] [address] Jul, [facility] [address] [id number] [place] [address] Jun, [facility] [address] [id number] [place] [address] Jun, [facility] [address] [id number] [place] [address] Jun, [facility] [address] [id number] [place] [address] Jun, [facility] [address] [id number] [place] [address] 18 Jun, 2013 [facility] [address] [facility] [id number] [place] [address] Jun, [facility] [address] [id number] [place] [address] Jun, [facility] [address] [id number] [place] [address] Jun, [facility] [address] [id number] [place] [address] Jun, [facility] [address] [id number] [place] [address] Jun, [facility] [address] [id number] [place] [address] May, [facility] [address] [id number] [place] [address] 28 May, 2013 [facility] [address] [id number] [place] [address] May, [facility] [address] [id number] [place] [address] 22 May, 2013 [facility] [address] [id number] [place] [address] 16 May, 2013 [facility] [address] [id number] [place] [address] May, [facility] [address] [id number] [place] [address] May, [facility] [address] [id number] [place] [address] May, [facility] [address] [id number] [place] [address] 11 May, 2013 [facility] [address] [id number] [place] [address] 26 Apr, 2013 [facility] [address] [id number] [place] [address] 16 Apr, 2013 [facility] [address] [id number] [place] [address] Apr, [facility] [address] [id number] [place] [address] Apr, [facility] [address] [id number] [place] [address] Mar, [facility] [address] [id number] [place] [address] Mar, [facility] [address] [id number] [place] [address] Mar, [facility] [address] [id number] [place] [address] Mar, [facility] [address] [id number] [place] [address] Mar, [facility] [address] [id number] [place] [address] Mar, [facility] [address] [id number] [place] [address] Mar, [facility] [address] [id number] [place] [address] Feb, [facility] [address] [id number] [place] [address] Feb, [facility] [address] [id number] [place] [address] Feb, [facility] [address] [id number] [place] [address] Feb, [facility] [address] [id number] [place] [address] Feb, [facility] [address] [id number] [place] [address] Feb, [facility] [address] [id number] [place] [address] Feb, [facility] [address] [id number] [place] [address] Feb, [facility] [address] [facility] [id number] [facility] [address] Feb, [facility] [id number] [facility] [address] Feb, [facility] [id number] [place] [address] Feb, [facility] [id number] [place] [address] Jan, [facility] [address] [facility] [id number] [facility] [address] Jan, [facility] [id number] [place] [address] December, [facility] [id number] [place] [address] December, [facility] [id number] [place] [address] Nov, [facility] [id number] [place] [address] Nov, [facility] [id number] [place] [address] Oct, [facility] [id number] [place] [address] Oct, [facility] [id number] [place] [address] Oct, [facility] [id number] [place] [address] Oct, [facility] [id number] [place] [address] Sep, [facility] [id number] [place] [address] Sep, [facility] [id number] [place] [address] Sep, [facility] [id number] [place] [address] Sep, [facility] [id number] [place] [address] Aug, [facility] [id number] [place] [address] Aug, [facility] [id number] [place] [address] Jul, [facility] [id number] [place] [address] Jul, [facility] [id number] [place] [address] Jul, [facility] [id number] [place] [address] Jul, [facility] [id number] [place] [address] Jul, [facility] [id number] [place] [address] Jul, [facility] [id number] [place] [address] Jun, [facility] [id number] [place] [address] Jun, [facility] [id number] [place] [address] Jun, [facility] [id number] [place] [address] Jun, [facility] [id number] [place] [address] Jun, [facility] [id number] [place] [address] May, [facility] [id number] [place] [address] May, [facility] [id number] [place] [address] May, [facility] [id number] [place] [address] May, [facility] [id number] [place] [address] May, [facility] [id number] [place] [address] May, [facility] [id number] [place] [address] May, [facility] [id number] [place] [address] May, [facility] [id number] [place] [address] Mar, [facility] [id number] [place] [address] Mar, [facility] [id number] [place] [address] Mar, [facility] [id number] [place] [address] Feb, [facility] [id number] [place] [address] Feb, [facility] [id number] [place] [address] Feb, [facility] [id number] [place] [address] Feb, [facility] [id number] [place] [address] Jan, [facility] [id number] [place] [address] Jan, [facility] [id number] [place] [address] Jan, [facility] [id number] [place] [address] December, [facility] [id number] [place] [address] 04 Nov, 2011 [facility] [id number] [place] [address] Oct, [facility] [id number] [place] [address] Oct, [facility] [id number] [place] [address] Oct, [facility] [id number] [place] [address] Oct, [facility] [id number] [place] [address] Aug, [facility] [id number] [place] [address] Aug, [facility] [id number] [place] [address] Aug, [facility] [id number] [place] [address] Aug, [facility] [id number] [place] [address] Aug, [facility] [id number] [place] [address] Aug, [facility] [id number] [place] [address] Aug, [facility] [id number] [place] [address] Aug, [facility] [id number] [place] [address] Jul, [facility] [id number] [place] [address] Jun, [facility] [id number] [place] [address] Jun, [facility] [id number] [place] [address] Jul, [facility] [id number] [place] [address] 22 Jul, 2010 [facility] [address] [facility] [id number] [place] [address] 22 Jul, 2010 [facility] [id number] [place] [address] 14 Jul, 2010 [facility] [id number] [place] [address] 14 Jul, 2010 [facility] [id number] [place] [address] 24 Jun, 2010 [facility] [id number] [place] [address] May, [facility] [id number] [place] [address] Mar, [facility] [id number] [place] [address] Oct, [facility] [id number] [place] [address] Aug, [facility] [id number] [place] [address] 15 Jul, 2009 [facility] [id number] [place] [address] Jul, [facility] [id number] [place] [address] Jun, [facility] [id number] [place] [address] Jun, [facility] [address] [facility] [id number] [place] [address] May, [facility] [address] [id number] [place] [address] May, [facility] [id number] [place] [address] Mar, [facility] [id number] [place] [address] Mar, [facility] [address] [facility] [id number] [place] [address] Oct, IMMUNIZATIONS No Known Immunizations SOCIAL HISTORY [...] replacement L1- L5 - Dr Benito pantoja ([place]) Surgical History appendectomy 1983 Surgical History hysterectomy 1993 Surgical History dilatation and curettage Surgical History heart cath- Dr Shaw [address] Solano bowel and intestines sep2015 Surgical History Dr solano removed skin tag and cyst 2017 Surgical History Colonoscopy and upper GI 04/2019 Surgical History endoscopy 08/13/19 Hospitalization History Hospitalization for surgery only
--- OUTSIDE RECORDS SUMMARY | 2019-11-08 08:40 | XMS REPORT ---
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 Active 21037514 Problem Opioid use disorder, moderate, in sustained remission F11.21 Active 45214213 Problem Tobacco use Z72.0 Active 26554503 8 Problem Cocaine use disorder, moderate, in sustained remission F14.21 Active 34104346 Problem GERD with esophagitis K21.0 Active 456108084 Problem Prediabetes 790.29 Active 6005611 Problem PTSD (post-traumatic stress disorder) F43.10 Active 39163995 Problem Bipolar disorder F31.9 Active 137 85473 Problem Gastroesophageal reflux disease, esophagitis pre sence not specified K21.9 Active 318145688 Problem Menopausal disorder N95.9 Active 597080426 Problem Insomnia, unspecified type G47.00 Act avelina 773378038 Problem Cigarette nicotine dependence without complication F17.210 Active 89907817 Problem Cannabis abuse F12.10 Active 22568 009 Problem Irritable bowel syndrome with diarrhea K58.0 Active 554475691 Problem Acute pain of left shoulder M25.512 Ac tive 12500825 Problem Mixed hyperlipidemia E78.2 Active 068088859 Problem Generalized anxiety disorder F41.1 A ctive 25625951 Problem Arthritis M19.90 Active 1355010 Problem Other chronic pain G89.29 Active 8 9177205 Problem Fibromyalgia M79.7 Active 0392543 05 Problem Perimenopausal vasomotor symptoms N95.1 Active 456083513 ALLERGIES No Information ENCOUNTERS Encounter Location Date Diagnosis [place] [id number] [place] [address] Oct, [facility] [address] [address] 12 Oct, 2019 Acute rhinosinusitis J01.90 ; Generalize d anxiety disorder F41.1 ; Major depressive disorder, recurrent episode, moderate F33.1 ; Gastroesophageal reflux disease, esophagitis presence not specified K21.9 ; Irritable bowel syndrome with diarrhea K58.0 and Mixed hyperlipidemia E78.2 [facility] [address] [facility] [id number] [address] [place] [address] Oct, Viral upper respiratory trac t infection J06.9 [place] [address] [address] 19 Sep, 2019 [place] [address] [address] 14 Sep, 2019 Major depressive disorder, recurrent epi sode, moderate F33.1 ; Generalized anxiety disorder F41.1 ; Irritable bowel syndrome with diarrhea K58.0 and Epigastric abdominal pain R10.13 [facility] [address] [facility] [address] May, Dental examination Z01.20 and Caries K02.9 [place] [address] [address] 08 May, 2019 Right upper quadrant pain R10.11 and Mix ed hyperlipidemia E78.2 [place] [address] [address] Mar, Perimenopausal vasomotor symptoms N95.1 [place] [address] [address] Mar, [place] [address] [address] Mar, [place] [address] [address] Mar, [place] [address] [address] Mar, Perimenopausal vasomotor symptoms N95.1 ; Irritable bowel syndrome with diarrhea K58.0 ; Insomnia, unspecified type G47.00 and Weight gain R63.5 [place] [address] [address] 16 Feb, 2019 [place] [address] [address] Feb, [place] [address] [address] Jan, [place] [address] [address] Jan, Fibromyalgia M79.7 ; Insect bite (nonven omous) of lower back and pelvis, sequela S30.860S ; Bitten or stung by nonvenomous insect and other nonvenomous arthropods, sequela W57.XXXS ; Arthritis M19.90 and Menopausal disorder N95.9 [place] [address] [address] Jan, [place] [address] [address] Jan, Mixed hyperlipidemia E78.2 [place] [address] [address] December, Screening for breast cancer Z12.31 and B reast lump N63.0 [place] [address] [address] December, Chest pain, unspecified type R07.9 [place] [address] [address] December, Chest pain, unspecified type R07.9 ; Gas troesophageal reflux disease, esophagitis presence not specified K21.9 and Left breast lump N63.20 [place] [address] [address] December, [facility] [address] [facility] [id number] [address] [place] [address] December, Suprapubic abdominal pain R1 0.2 and Dysuria R30.0 [facility] [id number] [place] [address] December, [facility] [address] [address] December, Cannabis abuse F12.10 ; Generalized anxi ety disorder F41.1 ; Methamphetamine use disorder, severe, in sustained remission F15.21 ; Alcohol use disorder, mild, in sustained remission F10.11 ; PTSD (post-traumatic stress disorder) F43.10 ; Cocaine use disorder, moderate, in sustained remission F14.21 and Bipolar disorder F31.9 [facility] [address] [address] Nov, Major depressive disorder, recurrent epi sode, moderate F33.1 ; Cannabis abuse F12.10 ; Generalized anxiety disorder F41.1 ; Methamphetamine use disorder, severe, in sustained remission F15.21 ; Alcohol use disorder, mild, in sustained remission F10.11 ; PTSD (post-traumatic stress disorder) F43.10 and Cocaine use disorder, moderate, in sustained remission F14.21 [facility] [id number] [place] [address] Oct, Major depressive disorder, recurrent epi sode, moderate F33.1 ; Cannabis abuse F12.10 ; Generalized anxiety disorder F41.1 ; Methamphetamine use disorder, severe, in sustained remission F15.21 ; Alcohol use disorder, mild, in sustained remission F10.11 ; PTSD (post-traumatic stress disorder) F43.10 and Cocaine use disorder, moderate, in sustained remission F14.21 [facility] [id number] [place] [address] Sep, Major depressive disorder, recurrent epi sode, moderate F33.1 [facility] [address] [facility] [place] [id number] Aug, [facility] [id number] [place] [address] Jul, Dysuria R30.0 [facility] [address] [address] Jul, Major depressive disorder, recurrent epi sode, moderate F33.1 [facility] [address] [address] Jun, Major depressive disorder, recurrent epi sode, moderate F33.1 [place] [address] [address] Jun, Major depressive disorder, recurrent epi sode, moderate F33.1 [place] [address] [address] Jun, Acute pain of left shoulder M25.512 and Cigarette nicotine dependence without complication F17.210 [place] [address] [address] May, [place] [address] [address] May, Cocaine use disorder, moderate, in susta ined remission F14.21 [place] [id number] [place] [address] May, [facility] [address] [facility], [place] [address] May, Dental examination Z01.20 [facility] [address] [facility] [place] [address] May, Dental examination Z01.20 and Caries K02 .9 [place] [id number] [place] [address] May, Common wart B07.8 [place] [address] [address] May, [place] [address] [address] Apr, Cocaine use disorder, moderate, in susta ined remission F14.21 [place] [id number] [place] [address] 14 Apr, 2018 [facility] [address] [facility] [place] [id number] 13 Apr, 2018 Dental examination Z01.20 [facility] [address] [facility] [place] [id number] 10 Mar, 2018 Encounter for dental exam and cleaning w /o abnormal findings Z01.20 [facility] [address] [address] 07 Mar, 2018 [place] [address] [address] Feb, Cocaine use disorder, moderate, in susta [...] disorder, recurrent episode, moderate F33.1 [place] [address] [address] Jan, Cocaine use disorder, moderate, in susta ined remission F14.21 [place] [address] [address] Jan, Cocaine use disorder, moderate, in susta [...] disorder, recurrent episode, moderate F33.1 [place] [address] [address] Jan, Dysuria R30.0 and GERD with esophagitis K21.0 [place] [id number] [place] [address] December, Major depressive disorder, recurrent epi sode, moderate F33.1 [facility] [id number] [place] [address] December, [facility] [id number] [place] [address] December, Major depressive disorder, recurrent epi sode, [...] sustained remission F10.11 and Tobacco use Z72.0 [place] [id number] [place] [address] Nov, [facility] [address] [place] [address] [address] Nov, [facility] [address] [address] Nov, Wellness examination Z00.00 ; Encounter for immunization Z23 ; Screening for osteoporosis Z13.820 ; Screening for breast cancer Z12.31 and Left breast lump N63.20 [facility] [address] [facility] [place] [id number] Oct, Dental examination Z01.20 [facility] [id number] [place] [address] Oct, [facility] [address] [address] Oct, [facility] [address] [address] Sep, [facility] [address] [address] Sep, [facility] [address] [address] 14 Sep, 2017 Left otitis media with effusion H65.92 ; Acute suppurative otitis media of right ear without spontaneous rupture of tympanic membrane, recurrence not specified H66.001 ; Dizziness R42 and Fatigue 780.79 [place] [address] [address] Aug, Major depressive disorder, recurrent epi sode, [...] F10.11 and Tobacco use Z72.0 [facility] [address] [facility] [id number] [address] [place] [address] Aug, Ingrown right big toenail L6 0.0 [place] [address] [address] Aug, [place] [address] [address] Aug, PTSD (post-traumatic stress disorder) F4 3.10 [place] [address] [address] Aug, Major depressive disorder, recurrent epi sode, moderate F33.1 ; Generalized anxiety disorder F41.1 and Cannabis abuse F12.10 [place] [address] [address] Jul, [place] [address] [address] Jul, [place] [address] [address] Jul, [place] [address] [address] Jul, Major depressive disorder, recurrent epi sode, moderate F33.1 ; Generalized anxiety disorder F41.1 and Cannabis abuse F12.10 [place] [address] [place] [address] Jul, [place] [address] [address] Jul, [place] [address] [address] Jul, Hyperlipidemia 272.4 [place] [address] [place] [address] Jul, PTSD (post-traumatic stress disorder) F4 3.10 [place] [address] [address] Jul, Tobacco use Z72.0 ; Alcohol use [...] anxiety disorder F41.1 and Cannabis abuse F12.10 [place] [address] [address] Jul, [address] [address] Jul, Dysuria R30.0 and Mixed hyperlipidemia E 78.[address] [address] 30 Jun, 2017 Major depressive disorder, recurrent epi sode, moderate F33.1 ; Generalized anxiety disorder F41.1 and Cannabis abuse F12.10 [place] [address] [place] [address] [address] Jun, [place] [address] 15 Jun, 2017 Generalized anxiety disorder F41.1 [...] sustained remission F14.21 and Tobacco use Z72.[address] [address] Jun, Major depressive disorder, recurrent epi sode, moderate F33.1 ; Generalized anxiety disorder F41.1 and Cannabis abuse F12.[address] [address] Jun, [address] [address] Jun, [address] [address] Jun, Major depressive disorder, recurrent epi sode, moderate F33.1 ; Generalized anxiety disorder F41.1 and Cannabis abuse F12.10 [facility] [address] [id number] Mar, Dental examination Z01.20 [facility] [address] [id number] Feb, Dental examination Z01.[address] [address] Mar, [address] [address] Mar, [address] [address] Feb, Hyperlipidemia 272.4 and Prediabetes [address] [address] Feb, Fatigue 780.79 and Hyperlipidemia 272.[address] [address] Feb, Lumbago 724.2 ; Hyperlipidemia 272.4 ; I nsomnia 780.52 and Fatigue 780.79 [facility] [id number] [place] [address] Nov, [facility] [id number] [place] [address] Nov, [facility] [id number] [place] [address] Mar, [facility] [id number] [place] [address] Mar, [facility] [id number] [place] [address] Jan, [facility] [id number] [place] [address] Jan, [facility] [id number] [place] [address] December, [facility] [id number] [place] [address] December, [facility] [id number] [place] [address] Nov, [facility] [id number] [place] [address] Nov, [facility] [id number] [place] [address] Nov, [facility] [id number] [place] [address] Nov, [facility] [id number] [place] [address] Nov, [facility] [id number] [place] [address] Nov, [facility] [id number] [place] [address] Oct, [facility] [id number] [place] [address] Oct, [facility] [address] [facility] [id number] [place] [address] Oct, [facility] [address] [id number] [place] [address] Oct, [facility] [address] [id number] [place] [address] Oct, [facility] [address] [id number] [place] [address] Oct, [facility] [address] [id number] [place] [address] Oct, [facility] [address] [id number] [place] [address] Oct, [facility] [address] [id number] [place] [address] Oct, [facility] [address] [id number] [place] [address] Oct, [facility] [address] [id number] [place] [address] Oct, [facility] [address] [id number] [place] [address] Oct, [facility] [address] [id number] [place] [address] Oct, [facility] [address] [id number] [place] [address] Sep, [facility] [address] [id number] [place] [address] Sep, [facility] [address] [id number] [place] [address] Sep, [facility] [address] [id number] [place] [address] Sep, [facility] [address] [id number] [place] [address] Sep, [facility] [address] [id number] [place] [address] 20 Sep, 2013 [facility] [address] [facility] [id number] [place] [address] 18 Sep, 2013 [facility] [address] [id number] [place] [address] 18 Sep, 2013 [facility] [address] [id number] [place] [address] 14 Sep, 2013 [facility] [address] [id number] [place] [address] 14 Sep, 2013 [facility] [address] [id number] [place] [address] 14 Sep, 2013 [facility] [address] [id number] [place] [address] 14 Sep, 2013 [facility] [address] [id number] [place] [address] 14 Sep, 2013 [facility] [address] [id number] [place] [address] 14 Sep, 2013 [facility] [address] [id number] [place] [address] 13 Sep, 2013 [facility] [address] [id number] [place] [address] Sep, [facility] [address] [id number] [place] [address] Sep, [facility] [address] [id number] [place] [address] Sep, [facility] [address] [id number] [place] [address] Sep, [facility] [address] [id number] [place] [address] 03 Sep, 2013 [facility] [address] [id number] [place] [address] Aug, [facility] [address] [id number] [place] [address] Aug, [facility] [address] [id number] [place] [address] Aug, [facility] [address] [id number] [place] [address] Aug, [facility] [address] [id number] [place] [address] Aug, [facility] [address] [id number] [place] [address] Jul, [facility] [address] [id number] [place] [address] Jul, [facility] [address] [id number] [place] [address] Jul, [facility] [address] [id number] [place] [address] Jul, [facility] [address] [id number] [place] [address] Jul, [facility] [address] [id number] [place] [address] Jul, [facility] [address] [id number] [place] [address] Jul, [facility] [address] [id number] [place] [address] Jul, [facility] [address] [id number] [place] [address] Jul, [facility] [address] [id number] [place] [address] Jun, [facility] [address] [id number] [place] [address] Jun, [facility] [address] [id number] [place] [address] Jun, [facility] [address] [id number] [place] [address] Jun, [facility] [address] [id number] [place] [address] 18 Jun, 2013 [facility] [address] [facility] [id number] [place] [address] Jun, [facility] [address] [id number] [place] [address] Jun, [facility] [address] [id number] [place] [address] Jun, [facility] [address] [id number] [place] [address] Jun, [facility] [address] [id number] [place] [address] Jun, [facility] [address] [id number] [place] [address] May, [facility] [address] [id number] [place] [address] 28 May, 2013 [facility] [address] [id number] [place] [address] May, [facility] [address] [id number] [place] [address] 22 May, 2013 [facility] [address] [id number] [place] [address] 16 May, 2013 [facility] [address] [id number] [place] [address] May, [facility] [address] [id number] [place] [address] May, [facility] [address] [id number] [place] [address] May, [facility] [address] [id number] [place] [address] 11 May, 2013 [facility] [address] [id number] [place] [address] 26 Apr, 2013 [facility] [address] [id number] [place] [address] 16 Apr, 2013 [facility] [address] [id number] [place] [address] Apr, [facility] [address] [id number] [place] [address] Apr, [facility] [address] [id number] [place] [address] Mar, [facility] [address] [id number] [place] [address] Mar, [facility] [address] [id number] [place] [address] Mar, [facility] [address] [id number] [place] [address] Mar, [facility] [address] [id number] [place] [address] Mar, [facility] [address] [id number] [place] [address] Mar, [facility] [address] [id number] [place] [address] Mar, [facility] [address] [id number] [place] [address] Feb, [facility] [address] [id number] [place] [address] Feb, [facility] [address] [id number] [place] [address] Feb, [facility] [address] [id number] [place] [address] Feb, [facility] [address] [id number] [place] [address] Feb, [facility] [address] [id number] [place] [address] Feb, [facility] [address] [id number] [place] [address] Feb, [facility] [address] [id number] [place] [address] Feb, [facility] [address] [facility] [id number] [facility] [address] Feb, [facility] [address] [id number] [facility] [address] Feb, [facility] [address] [id number] [place] [address] Feb, [facility] [address] [id number] [place] [address] Jan, [facility] [address] [facility] [id number] [facility] [place] [address] Jan, [facility] [address] [id number] [place] [address] December, [facility] [address] [id number] [place] [address] December, [facility] [address] [id number] [place] [address] Nov, [facility] [address] [id number] [place] [address] Nov, [facility] [address] [id number] [place] [address] Oct, [facility] [address] [id number] [place] [address] Oct, [facility] [address] [id number] [place] [address] Oct, [facility] [address] [id number] [place] [address] Oct, [facility] [address] [id number] [place] [address] Sep, [facility] [address] [id number] [place] [address] Sep, [facility] [address] [id number] [place] [address] Sep, [facility] [address] [id number] [place] [address] Sep, [facility] [address] [id number] [place] [address] Aug, [facility] [address] [id number] [place] [address] Aug, [facility] [address] [id number] [place] [address] Jul, [facility] [address] [id number] [place] [address] Jul, [facility] [address] [id number] [place] [address] Jul, [facility] [address] [id number] [place] [address] Jul, [facility] [address] [id number] [place] [address] Jul, [facility] [address] [id number] [place] [address] Jul, [facility] [address] [id number] [place] [address] Jun, [facility] [address] [id number] [place] [address] Jun, [facility] [address] [id number] [place] [address] Jun, [facility] [address] [id number] [place] [address] Jun, [facility] [address] [id number] [place] [address] Jun, [facility] [id number] [place] [address] May, [facility] [address] [id number] [place] [address] May, [facility] [address] [id number] [place] [address] May, [facility] [address] [id number] [place] [address] May, [facility] [address] [id number] [place] [address] May, [facility] [address] [id number] [place] [address] May, [facility] [address] [id number] [place] [address] May, [facility] [address] [id number] [place] [address] May, [facility] [address] [id number] [place] [address] Mar, [facility] [address] [id number] [place] [address] Mar, [facility] [address] [id number] [place] [address] Mar, [facility] [address] [id number] [place] [address] Feb, [facility] [address] [id number] [place] [address] Feb, [facility] [address] [id number] [place] [address] Feb, [facility] [address] [id number] [place] [address] Feb, [facility] [address] [id number] [place] [address] Jan, [facility] [address] [id number] [place] [address] Jan, [facility] [address] [id number] [place] [address] Jan, [facility] [address] [id number] [place] [address] December, [facility] [address] [id number] [place] [address] 04 Nov, 2011 [facility] [address] [id number] [place] [address] Oct, [facility] [address] [id number] [place] [address] Oct, [facility] [address] [id number] [place] [address] Oct, [facility] [address] [id number] [place] [address] Oct, [facility] [address] [id number] [place] [address] Aug, [facility] [address] [id number] [place] [address] Aug, [facility] [address] [id number] [place] [address] Aug, [facility] [address] [id number] [place] [address] Aug, [facility] [address] [id number] [place] [address] Aug, [facility] [address] [id number] [place] [address] Aug, [facility] [address] [id number] [place] [address] Aug, [facility] [address] [id number] [place] [address] Aug, [facility] [address] [id number] [place] [address] Jul, [facility] [address] [id number] [place] [address] Jun, [facility] [address] [id number] [place] [address] Jun, [facility] [address] [id number] [place] [address] Jul, [facility] [address] [id number] [place] [address] 22 Jul, 2010 [facility] [address] [facility] [id number] [place] [address] 22 Jul, 2010 [facility] [address] [id number] [place] [address] 14 Jul, 2010 [facility] [address] [id number] [place] [address] 14 Jul, 2010 [facility] [address] [id number] [place] [address] 24 Jun, 2010 [facility] [address] [id number] [place] [address] May, [facility] [address] [id number] [place] [address] Mar, [facility] [address] [id number] [place] [address] Oct, [facility] [address] [id number] [place] [address] Aug, [facility] [address] [id number] [place] [address] 15 Jul, 2009 [facility] [address] [id number] [place] [address] Jul, [facility] [address] [id number] [place] [address] Jun, [facility] [address] [id number] [place] [address] Jun, [facility] [address] [facility] [id number] [place] [address] May, [facility] [address] [id number] [place] [address] May, [facility] [address] [id number] [place] [address] Mar, [facility] [address] [id number] [place] [address] Mar, [facility] [address] [facility] [id number] [place] [address] Oct, IMMUNIZATIONS No Known Immunizations SOCIAL HISTORY [...] replacement L1- L5 - Dr Benito pantoja ([place]) Surgical History appendectomy 1983 Surgical History hysterectomy 1993 Surgical History dilatation and curettage Surgical History heart cath- Dr Shaw [address] Solano bowel and intestines sep2015 Surgical History Dr solano removed skin tag and cyst 2017 Surgical History Colonoscopy and upper GI 04/2019 Surgical History endoscopy 08/13/19 Hospitalization History Hospitalization for surgery only
--- OUTSIDE RECORDS SUMMARY | 2019-11-08 08:40 | XMS REPORT ---
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 Active 46231491 Problem Opioid use disorder, moderate, in sustained remission F11.21 Active 88597174 Problem Tobacco use Z72.0 Active 73335482 8 Problem Cocaine use disorder, moderate, in sustained remission F14.21 Active 55127916 Problem GERD with esophagitis K21.0 Active 204761624 Problem Prediabetes 790.29 Active 6835721 Problem PTSD (post-traumatic stress disorder) F43.10 Active 31412537 Problem Bipolar disorder F31.9 Active 137 13150 Problem Gastroesophageal reflux disease, esophagitis pre sence not specified K21.9 Active 762441030 Problem Menopausal disorder N95.9 Active 704980366 Problem Insomnia, unspecified type G47.00 Act avelina 501765941 Problem Cigarette nicotine dependence without complication F17.210 Active 76528295 Problem Cannabis abuse F12.10 Active 94421 009 Problem Irritable bowel syndrome with diarrhea K58.0 Active 390805805 Problem Acute pain of left shoulder M25.512 Ac tive 19220781 Problem Mixed hyperlipidemia E78.2 Active 218233125 Problem Generalized anxiety disorder F41.1 A ctive 99515794 Problem Arthritis M19.90 Active 9408632 Problem Other chronic pain G89.29 Active 8 8274583 Problem Fibromyalgia M79.7 Active 5095303 05 Problem Perimenopausal vasomotor symptoms N95.1 Active 918947935 ALLERGIES No Information ENCOUNTERS Encounter Location Date Diagnosis [place] [id number] [place] [address] Oct, [facility] [address] [address] 12 Oct, 2019 Acute rhinosinusitis J01.90 ; Generalize d anxiety disorder F41.1 ; Major depressive disorder, recurrent episode, moderate F33.1 ; Gastroesophageal reflux disease, esophagitis presence not specified K21.9 ; Irritable bowel syndrome with diarrhea K58.0 and Mixed hyperlipidemia E78.2 [facility] [address] [facility] [id number] [address] [place] [address] Oct, Viral upper respiratory trac t infection J06.9 [place] [address] [address] 19 Sep, 2019 [place] [address] [address] 14 Sep, 2019 Major depressive disorder, recurrent epi sode, moderate F33.1 ; Generalized anxiety disorder F41.1 ; Irritable bowel syndrome with diarrhea K58.0 and Epigastric abdominal pain R10.13 [facility] [address] [facility] [address] May, Dental examination Z01.20 and Caries K02.9 [place] [address] [address] 08 May, 2019 Right upper quadrant pain R10.11 and Mix ed hyperlipidemia E78.2 [place] [address] [address] Mar, Perimenopausal vasomotor symptoms N95.1 [place] [address] [address] Mar, [place] [address] [address] Mar, [place] [address] [address] Mar, [place] [address] [address] Mar, Perimenopausal vasomotor symptoms N95.1 ; Irritable bowel syndrome with diarrhea K58.0 ; Insomnia, unspecified type G47.00 and Weight gain R63.5 [place] [address] [address] 16 Feb, 2019 [place] [address] [address] Feb, [place] [address] [address] Jan, [place] [address] [address] Jan, Fibromyalgia M79.7 ; Insect bite (nonven omous) of lower back and pelvis, sequela S30.860S ; Bitten or stung by nonvenomous insect and other nonvenomous arthropods, sequela W57.XXXS ; Arthritis M19.90 and Menopausal disorder N95.9 [place] [address] [address] Jan, [place] [address] [address] Jan, Mixed hyperlipidemia E78.2 [place] [address] [address] December, Screening for breast cancer Z12.31 and B reast lump N63.0 [place] [address] [address] December, Chest pain, unspecified type R07.9 [place] [address] [address] December, Chest pain, unspecified type R07.9 ; Gas troesophageal reflux disease, esophagitis presence not specified K21.9 and Left breast lump N63.20 [place] [address] [address] December, [facility] [address] [facility] [id number] [address] [place] [address] December, Suprapubic abdominal pain R1 0.2 and Dysuria R30.0 [facility] [id number] [place] [address] December, [facility] [address] [address] December, Cannabis abuse F12.10 ; Generalized anxi ety disorder F41.1 ; Methamphetamine use disorder, severe, in sustained remission F15.21 ; Alcohol use disorder, mild, in sustained remission F10.11 ; PTSD (post-traumatic stress disorder) F43.10 ; Cocaine use disorder, moderate, in sustained remission F14.21 and Bipolar disorder F31.9 [facility] [address] [address] Nov, Major depressive disorder, recurrent epi sode, moderate F33.1 ; Cannabis abuse F12.10 ; Generalized anxiety disorder F41.1 ; Methamphetamine use disorder, severe, in sustained remission F15.21 ; Alcohol use disorder, mild, in sustained remission F10.11 ; PTSD (post-traumatic stress disorder) F43.10 and Cocaine use disorder, moderate, in sustained remission F14.21 [facility] [id number] [place] [address] Oct, Major depressive disorder, recurrent epi sode, moderate F33.1 ; Cannabis abuse F12.10 ; Generalized anxiety disorder F41.1 ; Methamphetamine use disorder, severe, in sustained remission F15.21 ; Alcohol use disorder, mild, in sustained remission F10.11 ; PTSD (post-traumatic stress disorder) F43.10 and Cocaine use disorder, moderate, in sustained remission F14.21 [facility] [id number] [place] [address] Sep, Major depressive disorder, recurrent epi sode, moderate F33.1 [facility] [address] [facility] [place] [id number] Aug, [facility] [id number] [place] [address] Jul, Dysuria R30.0 [facility] [address] [address] Jul, Major depressive disorder, recurrent epi sode, moderate F33.1 [facility] [address] [address] Jun, Major depressive disorder, recurrent epi sode, moderate F33.1 [place] [address] [address] Jun, Major depressive disorder, recurrent epi sode, moderate F33.1 [place] [address] [address] Jun, Acute pain of left shoulder M25.512 and Cigarette nicotine dependence without complication F17.210 [place] [address] [address] May, [place] [address] [address] May, Cocaine use disorder, moderate, in susta ined remission F14.21 [place] [id number] [place] [address] May, [facility] [address] [facility], [place] [address] May, Dental examination Z01.20 [facility] [address] [facility] [place] [id number] May, Dental examination Z01.20 and Caries K02 .9 [place] [id number] [place] [address] May, Common wart B07.8 [place] [address] [address] May, [place] [address] [address] Apr, Cocaine use disorder, moderate, in susta ined remission F14.21 [place] [id number] [place] [address] 14 Apr, 2018 [facility] [address] [facility] [place] [id number] 13 Apr, 2018 Dental examination Z01.20 [facility] [address] [facility] [place] [id number] 10 Mar, 2018 Encounter for dental exam and cleaning w /o abnormal findings Z01.20 [facility] [address] [address] 07 Mar, 2018 [place] [address] [address] Feb, Cocaine use disorder, moderate, in susta [...] Major depressive disorder, recurrent episode, moderate F33.1 [place] [address] [address] Jan, Cocaine use disorder, moderate, in susta ined remission F14.21 [place] [address] [address] Jan, Cocaine use disorder, moderate, in susta [...] Major depressive disorder, recurrent episode, moderate F33.1 [place] [address] [address] Jan, Dysuria R30.0 and GERD with esophagitis K21.0 [place] [id number] [place] [address] December, Major depressive disorder, recurrent epi sode, moderate F33.1 [facility] [id number] [place] [address] December, [facility] [id number] [place] [address] December, Major depressive disorder, recurrent epi sode, [...] sustained remission F10.11 and Tobacco use Z72.0 [place] [id number] [place] [address] Nov, [facility] [address] [place] [address] [address] Nov, [facility] [address] [address] Nov, Wellness examination Z00.00 ; Encounter for immunization Z23 ; Screening for osteoporosis Z13.820 ; Screening for breast cancer Z12.31 and Left breast lump N63.20 [facility] [address] [id number] [place] [id number] Oct, Dental examination Z01.20 [facility] [id number] [place] [address] Oct, [facility] [address] [address] Oct, [facility] [address] [address] Sep, [facility] [address] [address] Sep, [facility] [address] [address] 14 Sep, 2017 Left otitis media with effusion H65.92 ; Acute suppurative otitis media of right ear without spontaneous rupture of tympanic membrane, recurrence not specified H66.001 ; Dizziness R42 and Fatigue 780.79 [place] [address] [address] Aug, Major depressive disorder, recurrent epi sode, [...] F10.11 and Tobacco use Z72.0 [facility] [address] [facility] [id number] [address] [place] [address] Aug, Ingrown right big toenail L6 0.0 [place] [address] [address] Aug, [place] [address] [address] Aug, PTSD (post-traumatic stress disorder) F4 3.10 [place] [address] [address] Aug, Major depressive disorder, recurrent epi sode, moderate F33.1 ; Generalized anxiety disorder F41.1 and Cannabis abuse F12.10 [place] [address] [address] Jul, [place] [address] [address] Jul, [place] [address] [address] Jul, [place] [address] [address] Jul, Major depressive disorder, recurrent epi sode, moderate F33.1 ; Generalized anxiety disorder F41.1 and Cannabis abuse F12.10 [place] [address] [place] [address] Jul, [place] [address] [address] Jul, [place] [address] [address] Jul, Hyperlipidemia 272.4 [place] [address] [place] [address] Jul, PTSD (post-traumatic stress disorder) F4 3.10 [place] [address] [address] Jul, Tobacco use Z72.0 ; Alcohol use [...] anxiety disorder F41.1 and Cannabis abuse F12.10 [place] [address] [address] Jul, [address] [address] Jul, Dysuria R30.0 and Mixed hyperlipidemia E 78.[address] [address] 30 Jun, 2017 Major depressive disorder, recurrent epi sode, moderate F33.1 ; Generalized anxiety disorder F41.1 and Cannabis abuse F12.10 [place] [address] [id number] Jun, [place] [address] 15 Jun, 2017 Generalized anxiety disorder F41.1 [...] sustained remission F14.21 and Tobacco use Z72.[address] [address] Jun, Major depressive disorder, recurrent epi sode, moderate F33.1 ; Generalized anxiety disorder F41.1 and Cannabis abuse F12.[address] [address] Jun, [address] [address] Jun, [address] [address] Jun, Major depressive disorder, recurrent epi sode, moderate F33.1 ; Generalized anxiety disorder F41.1 and Cannabis abuse F12.10 [facility] [address] [id number] Mar, Dental examination Z01.20 [facility] [address] [id number] Feb, Dental examination Z01.[address] [address] Mar, [address] [address] Mar, [address] [address] Feb, Hyperlipidemia 272.4 and Prediabetes 790 .[address] [address] Feb, Fatigue 780.79 and Hyperlipidemia 272.[address] [address] Feb, Lumbago 724.2 ; Hyperlipidemia 272.4 ; I nsomnia 780.52 and Fatigue 780.79 [facility] [id number] [place] [address] Nov, [facility] [id number] [place] [address] Nov, [facility] [id number] [place] [address] Mar, [facility] [id number] [place] [address] Mar, [facility] [id number] [place] [address] Jan, [facility] [id number] [place] [address] Jan, [facility] [id number] [place] [address] December, [facility] [id number] [place] [address] December, [facility] [id number] [place] [address] Nov, [facility] [id number] [place] [address] Nov, [facility] [id number] [place] [address] Nov, [facility] [id number] [place] [address] Nov, [facility] [id number] [place] [address] Nov, [facility] [id number] [place] [address] Nov, [facility] [id number] [place] [address] Oct, [facility] [id number] [place] [address] Oct, [facility] [address] [facility] [id number] [place] [address] Oct, [facility] [address] [id number] [place] [address] Oct, [facility] [address] [id number] [place] [address] Oct, [facility] [address] [id number] [place] [address] Oct, [facility] [address] [id number] [place] [address] Oct, [facility] [address] [id number] [place] [address] Oct, [facility] [address] [id number] [place] [address] Oct, [facility] [address] [id number] [place] [address] Oct, [facility] [address] [id number] [place] [address] Oct, [facility] [address] [id number] [place] [address] Oct, [facility] [address] [id number] [place] [address] Oct, [facility] [address] [id number] [place] [address] Sep, [facility] [address] [id number] [place] [address] Sep, [facility] [address] [id number] [place] [address] Sep, [facility] [address] [id number] [place] [address] Sep, [facility] [address] [id number] [place] [address] Sep, [facility] [address] [id number] [place] [address] 20 Sep, 2013 [facility] [address] [facility] [id number] [place] [address] 18 Sep, 2013 [facility] [address] [id number] [place] [address] 18 Sep, 2013 [facility] [address] [id number] [place] [address] 14 Sep, 2013 [facility] [address] [id number] [place] [address] 14 Sep, 2013 [facility] [address] [id number] [place] [address] 14 Sep, 2013 [facility] [address] [id number] [place] [address] 14 Sep, 2013 [facility] [address] [id number] [place] [address] 14 Sep, 2013 [facility] [address] [id number] [place] [address] 14 Sep, 2013 [facility] [address] [id number] [place] [address] 13 Sep, 2013 [facility] [address] [id number] [place] [address] Sep, [facility] [address] [id number] [place] [address] Sep, [facility] [address] [id number] [place] [address] Sep, [facility] [address] [id number] [place] [address] Sep, [facility] [address] [id number] [place] [address] 03 Sep, 2013 [facility] [address] [id number] [place] [address] Aug, [facility] [address] [id number] [place] [address] Aug, [facility] [address] [id number] [place] [address] Aug, [facility] [address] [id number] [place] [address] Aug, [facility] [address] [id number] [place] [address] Aug, [facility] [address] [id number] [place] [address] Jul, [facility] [address] [id number] [place] [address] Jul, [facility] [address] [id number] [place] [address] Jul, [facility] [address] [id number] [place] [address] Jul, [facility] [address] [id number] [place] [address] Jul, [facility] [address] [id number] [place] [address] Jul, [facility] [address] [id number] [place] [address] Jul, [facility] [address] [id number] [place] [address] Jul, [facility] [address] [id number] [place] [address] Jul, [facility] [address] [id number] [place] [address] Jun, [facility] [address] [id number] [place] [address] Jun, [facility] [address] [id number] [place] [address] Jun, [facility] [address] [id number] [place] [address] Jun, [facility] [address] [id number] [place] [address] 18 Jun, 2013 [facility] [address] [facility] [id number] [place] [address] Jun, [facility] [address] [id number] [place] [address] Jun, [facility] [address] [id number] [place] [address] Jun, [facility] [address] [id number] [place] [address] Jun, [facility] [address] [id number] [place] [address] Jun, [facility] [address] [id number] [place] [address] May, [facility] [address] [id number] [place] [address] 28 May, 2013 [facility] [address] [id number] [place] [address] May, [facility] [address] [id number] [place] [address] 22 May, 2013 [facility] [address] [id number] [place] [address] 16 May, 2013 [facility] [address] [id number] [place] [address] May, [facility] [address] [id number] [place] [address] May, [facility] [address] [id number] [place] [address] May, [facility] [address] [id number] [place] [address] 11 May, 2013 [facility] [address] [id number] [place] [address] 26 Apr, 2013 [facility] [address] [id number] [place] [address] 16 Apr, 2013 [facility] [address] [id number] [place] [address] Apr, [facility] [address] [id number] [place] [address] Apr, [facility] [address] [id number] [place] [address] Mar, [facility] [address] [id number] [place] [address] Mar, [facility] [address] [id number] [place] [address] Mar, [facility] [address] [facility] [id number] [place] [address] Mar, [facility] [address] [facility] [id number] [place] [address] Mar, [facility] [address] [facility] [id number] [place] [address] Mar, [facility] [address] [facility] [id number] [place] [address] Mar, [facility] [address] [facility] [id number] [place] [address] Feb, [facility] [address] [facility] [id number] [place] [address] Feb, [facility] [address] [facility] [id number] [place] [address] Feb, [facility] [address] [facility] [id number] [place] [address] Feb, [facility] [address] [id number] [place] [address] Feb, [facility] [address] [id number] [place] [address] Feb, [facility] [address] [facility] [id number] [place] [address] Feb, [facility] [address] [facility] [id number] [place] [address] Feb, [facility] [address] [facility] [id number] [place] [address] Feb, [facility] [address] [facility] [id number] [place] [address] Feb, [facility] [address] [id number] [place] [address] Feb, [facility] [address] [facility] [id number] [place] [address] Jan, [facility] [address] [facility] [id number] [place] [address] Jan, [facility] [address] [id number] [place] [address] December, [facility] [address] [id number] [place], [place] [address] December, [facility] [address] [id number] [place] [address] Nov, [facility] [address] [facility] [id number] [place] [address] Nov, [facility] [address] [facility] [id number] [place] [address] Oct, [facility] [address] [facility] [id number] [place] [address] Oct, [facility] [address] [facility] [id number] [place] [address] Oct, [facility] [address] [facility] [id number] [place] [address] Oct, [facility] [address] [facility] [id number] [place] [address] Sep, [facility] [address] [facility] [id number] [place] [address] Sep, [facility] [address] [id number] [place] [address] Sep, [facility] [address] [facility] [id number] [place] [address] Sep, [facility] [address] [facility] [id number] [place] [address] Aug, [facility] [address] [facility] [id number] [place] [address] Aug, [facility] [address] [facility] [id number] [place] [address] Jul, [facility] [address] [facility] [id number] [place] [address] Jul, [facility] [address] [facility] [id number] [place] [address] Jul, [facility] [address] [facility] [id number] [place] [address] Jul, [facility] [address] [id number] [place] [address] Jul, [facility] [address] [facility] [id number] [place] [address] Jul, [facility] [address] [facility] [id number] [place] [address] Jun, [facility] [address] [facility] [id number] [place] [address] Jun, [facility] [address] [facility] [id number] [place] [address] Jun, [facility] [address] [id number] [place] [address] Jun, [facility] [address] [id number] [place] [address] Jun, [facility] [id number] [place] [address] May, [facility] [address] [id number] [place] [address] May, [facility] [address] [id number] [place] [address] May, [facility] [address] [id number] [place] [address] May, [facility] [address] [id number] [place] [address] May, [facility] [address] [id number] [place] [address] May, [facility] [address] [id number] [place] [address] May, [facility] [address] [facility] [id number] [place] [address] May, [facility] [address] [id number] [place] [address] Mar, [facility] [address] [id number] [place] [address] Mar, [facility] [address] [id number] [place] [address] Mar, [facility] [address] [facility] [id number] [place] [address] Feb, [facility] [address] [facility] [id number] [place] [address] Feb, [facility] [address] [facility] [id number] [place] [address] Feb, [facility] [address] [facility] [id number] [place] [address] Feb, [facility] [address] [facility] [id number] [place] [address] Jan, [facility] [address] [facility] [id number] [place] [address] Jan, [facility] [address] [facility] [id number] [place] [address] Jan, [facility] [address] [facility] [id number] [place] [address] December, [facility] [address] [facility] [id number] [place] [address] 04 Nov, 2011 [facility] [address] [facility] [id number] [place] [address] Oct, [facility] [address] [facility] [id number] [place] [address] Oct, [facility] [address] [facility] [id number] [place] [address] Oct, [facility] [address] [facility] [id number] [place] [address] Oct, [facility] [address] [facility] [id number] [place] [address] Aug, [facility] [address] [facility] [id number] [place] [address] Aug, [facility] [address] [facility] [id number] [place] [address] Aug, [facility] [address] [facility] [id number] [place] [address] Aug, [facility] [address] [id number] [place] [address] Aug, [facility] [address] [id number] [place] [address] Aug, [facility] [address] [id number] [place] [address] Aug, [facility] [address] [id number] [place] [address] Aug, [facility] [address] [id number] [place] [address] Jul, [facility] [address] [id number] [place] [address] Jun, [facility] [address] [facility] [id number] [place] [address] Jun, [facility] [address] [id number] [place] [address] Jul, [facility] [address] [id number] [place] [address] 22 Jul, 2010 [facility] [address] [facility] [id number] [place] [address] 22 Jul, 2010 [facility] [address] [id number] [place] [address] 14 Jul, 2010 [facility] [address] [id number] [place] [address] 14 Jul, 2010 [facility] [address] [facility] [id number] [place] [address] 24 Jun, 2010 [facility] [address] [id number] [place] [address] May, [facility] [address] [id number] [place] [address] Mar, [facility] [address] [id number] [place] [address] Oct, [facility] [address] [id number] [place] [address] Aug, [facility] [address] [id number] [place] [address] 15 Jul, 2009 [facility] [address] [id number] [place] [address] Jul, [facility] [address] [id number] [place] [address] Jun, [facility] [address] [id number] [place] [address] Jun, [facility] [address] [facility] [id number] [place] [address] May, [facility] [address] [id number] [place] [address] May, [facility] [address] [facility] [id number] [place] [address] Mar, [facility] [address] [facility] [id number] [place] [address] Mar, [facility] [address] [facility] [id number] [place] [address] Oct, IMMUNIZATIONS No Known Immunizations SOCIAL HISTORY Never Assessed REASON FOR VISIT PLAN OF CARE VITAL SIGNS Height 68 in 2013-09-18 Weight 192.38 lbs 2013-09-18 Temperature 98 degrees Fahrenheit 2013-09-18 Heart Rate 80 bpm 2013-09-18 Respiratory Rate 18 2013-09-18 Blood pressure systolic 118 mmHg 2013-09-18 Blood pressure diastolic 72 mmHg 2013-09-18 MEDICATIONS Unknown Medications RESULTS No Results PROCEDURES Procedure Date Ordered Result Body Site FECES CULTURE, BACTERIA Sep 18, 2013 VENIPUNCT, ROUTINE* Sep 18, 2013 C-REACTIVE PROTEIN Sep 18, 2013 ASSAY THYROID STIM HORMONE Sep 18, 2013 RBC SED RATE, AUTOMATED Sep 18, 2013 ASSAY OF LIPASE Sep 18, 2013 TEST FOR BLOOD, FECES Sep 18, 2013 DRUG SCREEN, QUALITATE/MULTI Sep 18, 2013 LIPID PANEL Sep 18, 2013 COMPREHEN METABOLIC PANEL Sep 18, 2013 COMPLETE CBC W/AUTO DIFF WBC Sep 18, 2013 LEUKOCYTE COUNT, FECAL Sep 18, 2013 OVA AND PARASITES SMEARS Sep 18, 2013 INSTRUCTIONS MEDICATIONS ADMINISTERED No Known Medications MEDICAL [...] replacement L1- L5 - Dr Benito pantoja ([place]) Surgical History appendectomy 1983 Surgical History hysterectomy 1993 Surgical History dilatation and curettage Surgical History heart cath- Dr Shaw [address] Solano bowel and intestines seperated [address] solano removed skin tag and cyst 2017 Surgical History Colonoscopy and upper GI 04/2019 Surgical History endoscopy 08/13/19 Hospitalization History Hospitalization for surgery only
--- OUTSIDE RECORDS SUMMARY | 2019-11-08 08:41 | XMS REPORT ---
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 Active 62285765 Problem Opioid use disorder, moderate, in sustained remission F11.21 Active 40167239 Problem Tobacco use Z72.0 Active 15216611 8 Problem Cocaine use disorder, moderate, in sustained remission F14.21 Active 71395294 Problem GERD with esophagitis K21.0 Active 924243088 Problem Prediabetes 790.29 Active 0149638 Problem PTSD (post-traumatic stress disorder) F43.10 Active 05521138 Problem Bipolar disorder F31.9 Active 137 30246 Problem Gastroesophageal reflux disease, esophagitis pre sence not specified K21.9 Active 085023041 Problem Menopausal disorder N95.9 Active 820004671 Problem Insomnia, unspecified type G47.00 Act avelina 225990734 Problem Cigarette nicotine dependence without complication F17.210 Active 58824018 Problem Cannabis abuse F12.10 Active 18711 009 Problem Irritable bowel syndrome with diarrhea K58.0 Active 485665433 Problem Acute pain of left shoulder M25.512 Ac tive 09206287 Problem Mixed hyperlipidemia E78.2 Active 631103504 Problem Generalized anxiety disorder F41.1 A ctive 10611333 Problem Arthritis M19.90 Active 0548371 Problem Other chronic pain G89.29 Active 8 2194499 Problem Fibromyalgia M79.7 Active 1358584 05 Problem Perimenopausal vasomotor symptoms N95.1 Active 189250016 ALLERGIES No Information ENCOUNTERS Encounter Location Date Diagnosis [place] [id number] [place] [address] Oct, [facility] [address] [address] 12 Oct, 2019 Acute rhinosinusitis J01.90 ; Generalize d anxiety disorder F41.1 ; Major depressive disorder, recurrent episode, moderate F33.1 ; Gastroesophageal reflux disease, esophagitis presence not specified K21.9 ; Irritable bowel syndrome with diarrhea K58.0 and Mixed hyperlipidemia E78.2 [facility] [address] [facility] [id number] [address] [place] [address] Oct, Viral upper respiratory trac t infection J06.9 [place] [address] [address] 19 Sep, 2019 [place] [address] [address] 14 Sep, 2019 Major depressive disorder, recurrent epi sode, moderate F33.1 ; Generalized anxiety disorder F41.1 ; Irritable bowel syndrome with diarrhea K58.0 and Epigastric abdominal pain R10.13 [facility] [address] [facility] [address] May, Dental examination Z01.20 and Caries K02.9 [place] [address] [address] 08 May, 2019 Right upper quadrant pain R10.11 and Mix ed hyperlipidemia E78.2 [place] [address] [address] Mar, Perimenopausal vasomotor symptoms N95.1 [place] [address] [address] Mar, [place] [address] [address] Mar, [place] [address] [address] Mar, [place] [address] [address] Mar, Perimenopausal vasomotor symptoms N95.1 ; Irritable bowel syndrome with diarrhea K58.0 ; Insomnia, unspecified type G47.00 and Weight gain R63.5 [place] [address] [address] 16 Feb, 2019 [place] [address] [address] Feb, [place] [address] [address] Jan, [place] [address] [address] Jan, Fibromyalgia M79.7 ; Insect bite (nonven omous) of lower back and pelvis, sequela S30.860S ; Bitten or stung by nonvenomous insect and other nonvenomous arthropods, sequela W57.XXXS ; Arthritis M19.90 and Menopausal disorder N95.9 [place] [address] [address] Jan, [place] [address] [address] Jan, Mixed hyperlipidemia E78.2 [place] [address] [address] December, Screening for breast cancer Z12.31 and B reast lump N63.0 [place] [address] [address] December, Chest pain, unspecified type R07.9 [place] [address] [address] December, Chest pain, unspecified type R07.9 ; Gas troesophageal reflux disease, esophagitis presence not specified K21.9 and Left breast lump N63.20 [place] [address] [address] December, [facility] [address] [facility] [id number] [address] [place] [address] December, Suprapubic abdominal pain R1 0.2 and Dysuria R30.0 [facility] [id number] [place] [address] December, [facility] [address] [address] December, Cannabis abuse F12.10 ; Generalized anxi ety disorder F41.1 ; Methamphetamine use disorder, severe, in sustained remission F15.21 ; Alcohol use disorder, mild, in sustained remission F10.11 ; PTSD (post-traumatic stress disorder) F43.10 ; Cocaine use disorder, moderate, in sustained remission F14.21 and Bipolar disorder F31.9 [facility] [address] [address] Nov, Major depressive disorder, recurrent epi sode, moderate F33.1 ; Cannabis abuse F12.10 ; Generalized anxiety disorder F41.1 ; Methamphetamine use disorder, severe, in sustained remission F15.21 ; Alcohol use disorder, mild, in sustained remission F10.11 ; PTSD (post-traumatic stress disorder) F43.10 and Cocaine use disorder, moderate, in sustained remission F14.21 [facility] [id number] [place] [address] Oct, Major depressive disorder, recurrent epi sode, moderate F33.1 ; Cannabis abuse F12.10 ; Generalized anxiety disorder F41.1 ; Methamphetamine use disorder, severe, in sustained remission F15.21 ; Alcohol use disorder, mild, in sustained remission F10.11 ; PTSD (post-traumatic stress disorder) F43.10 and Cocaine use disorder, moderate, in sustained remission F14.21 [facility] [id number] [place] [address] Sep, Major depressive disorder, recurrent epi sode, moderate F33.1 [facility] [address] [facility] [place] [id number] Aug, [facility] [id number] [place] [address] Jul, Dysuria R30.0 [facility] [address] [address] Jul, Major depressive disorder, recurrent epi sode, moderate F33.1 [facility] [address] [address] Jun, Major depressive disorder, recurrent epi sode, moderate F33.1 [place] [address] [address] Jun, Major depressive disorder, recurrent epi sode, moderate F33.1 [place] [address] [address] Jun, Acute pain of left shoulder M25.512 and Cigarette nicotine dependence without complication F17.210 [place] [address] [address] May, [place] [address] [address] May, Cocaine use disorder, moderate, in susta ined remission F14.21 [place] [id number] [place] [address] May, [facility] [address] [facility] [address] May, Dental examination Z01.20 [facility] [address] [facility] [place] [id number] May, Dental examination Z01.20 and Caries K02 .9 [place] [id number] [place] [address] May, Common wart B07.8 [place] [address] [address] May, [place] [address] [address] Apr, Cocaine use disorder, moderate, in susta ined remission F14.21 [place] [id number] [place] [address] 14 Apr, 2018 [facility] [address] [facility] [place] [id number] 13 Apr, 2018 Dental examination Z01.20 [facility] [address] [id number] [place] [id number] 10 Mar, 2018 Encounter for dental exam and cleaning w /o abnormal findings Z01.20 [facility] [address] [address] 07 Mar, 2018 [place] [address] [address] Feb, Cocaine use disorder, moderate, in susta [...] Major depressive disorder, recurrent episode, moderate F33.1 [place] [address] [address] Jan, Cocaine use disorder, moderate, in susta ined remission F14.21 [place] [address] [address] Jan, Cocaine use disorder, moderate, in susta [...] Major depressive disorder, recurrent episode, moderate F33.1 [place] [address] [address] Jan, Dysuria R30.0 and GERD with esophagitis K21.0 [place] [id number] [place] [address] December, Major depressive disorder, recurrent epi sode, moderate F33.1 [facility] [id number] [place] [address] December, [facility] [id number] [place] [address] December, Major depressive disorder, recurrent epi sode, [...] sustained remission F10.11 and Tobacco use Z72.0 [place] [id number] [place] [address] Nov, [facility] [address] [place] [address] [address] Nov, [facility] [address] [address] Nov, Wellness examination Z00.00 ; Encounter for immunization Z23 ; Screening for osteoporosis Z13.820 ; Screening for breast cancer Z12.31 and Left breast lump N63.20 [facility] [address] [facility] [place] [id number] Oct, Dental examination Z01.20 [facility] [id number] [place] [address] Oct, [facility] [address] [address] Oct, [facility] [address] [address] Sep, [facility] [address] [address] Sep, [facility] [address] [address] 14 Sep, 2017 Left otitis media with effusion H65.92 ; Acute suppurative otitis media of right ear without spontaneous rupture of tympanic membrane, recurrence not specified H66.001 ; Dizziness R42 and Fatigue 780.79 [place] [address] [address] Aug, Major depressive disorder, recurrent epi sode, [...] sustained remission F10.11 and Tobacco use Z72.0 [facility] [address] [facility] [id number] [address] [place] [address] Aug, Ingrown right big toenail L6 0.0 [place] [address] [address] Aug, [place] [address] [address] Aug, PTSD (post-traumatic stress disorder) F4 3.10 [place] [address] [address] Aug, Major depressive disorder, recurrent epi sode, moderate F33.1 ; Generalized anxiety disorder F41.1 and Cannabis abuse F12.10 [place] [address] [address] Jul, [place] [address] [address] Jul, [place] [address] [address] Jul, [place] [address] [address] Jul, Major depressive disorder, recurrent epi sode, moderate F33.1 ; Generalized anxiety disorder F41.1 and Cannabis abuse F12.10 [place] [address] [place] [address] Jul, [place] [address] [address] Jul, [place] [address] [address] Jul, Hyperlipidemia 272.4 [place] [address] [place] [address] Jul, PTSD (post-traumatic stress disorder) F4 3.10 [place] [address] [address] Jul, Tobacco use Z72.0 ; Alcohol use [...] anxiety disorder F41.1 and Cannabis abuse F12.10 [place] [address] [address] Jul, [address] [address] Jul, Dysuria R30.0 and Mixed hyperlipidemia E 78.[address] [address] 30 Jun, 2017 Major depressive disorder, recurrent epi sode, moderate F33.1 ; Generalized anxiety disorder F41.1 and Cannabis abuse F12.10 [place] [address] [address] Jun, [place] [address] 15 Jun, 2017 Generalized anxiety disorder F41.1 [...] remission F14.21 and Tobacco use Z72.[address] [address] Jun, Major depressive disorder, recurrent epi sode, moderate F33.1 ; Generalized anxiety disorder F41.1 and Cannabis abuse F12.[address] [address] Jun, [address] [address] Jun, [address] [address] Jun, Major depressive disorder, recurrent epi sode, moderate F33.1 ; Generalized anxiety disorder F41.1 and Cannabis abuse F12.10 [facility] [address] [id number] Mar, Dental examination Z01.20 [facility] [address] [id number] Feb, Dental examination Z01.[address] [address] Mar, [address] [address] Mar, [address] [address] Feb, Hyperlipidemia 272.4 and Prediabetes [address] [address] Feb, Fatigue 780.79 and Hyperlipidemia 272.[address] [address] Feb, Lumbago 724.2 ; Hyperlipidemia 272.4 ; I nsomnia 780.52 and Fatigue 780.79 [facility] [id number] [place] [address] Nov, [facility] [id number] [place] [address] Nov, [facility] [id number] [place] [address] Mar, [facility] [id number] [place] [address] Mar, [facility] [id number] [place] [address] Jan, [facility] [id number] [place] [address] Jan, [facility] [id number] [place] [address] December, [facility] [id number] [place] [address] December, [facility] [id number] [place] [address] Nov, [facility] [id number] [place] [address] Nov, [facility] [id number] [place] [address] Nov, [facility] [id number] [place] [address] Nov, [facility] [id number] [place] [address] Nov, [facility] [id number] [place] [address] Nov, [facility] [id number] [place] [address] Oct, [facility] [id number] [place] [address] Oct, [facility] [address] [facility] [id number] [place] [address] Oct, [facility] [address] [id number] [place] [address] Oct, [facility] [address] [id number] [place] [address] Oct, [facility] [address] [id number] [place] [address] Oct, [facility] [address] [id number] [place] [address] Oct, [facility] [address] [id number] [place] [address] Oct, [facility] [address] [id number] [place] [address] Oct, [facility] [address] [id number] [place] [address] Oct, [facility] [address] [id number] [place] [address] Oct, [facility] [address] [id number] [place] [address] Oct, [facility] [address] [id number] [place] [address] Oct, [facility] [address] [id number] [place] [address] Sep, [facility] [address] [id number] [place] [address] Sep, [facility] [address] [id number] [place] [address] Sep, [facility] [address] [id number] [place] [address] Sep, [facility] [address] [id number] [place] [address] Sep, [facility] [address] [id number] [place] [address] 20 Sep, 2013 [facility] [address] [facility] [id number] [place] [address] 18 Sep, 2013 [facility] [address] [id number] [place] [address] 18 Sep, 2013 [facility] [address] [id number] [place] [address] 14 Sep, 2013 [facility] [address] [id number] [place] [address] 14 Sep, 2013 [facility] [address] [id number] [place] [address] 14 Sep, 2013 [facility] [address] [id number] [place] [address] 14 Sep, 2013 [facility] [address] [id number] [place] [address] 14 Sep, 2013 [facility] [address] [id number] [place] [address] 14 Sep, 2013 [facility] [address] [id number] [place] [address] 13 Sep, 2013 [facility] [address] [id number] [place] [address] Sep, [facility] [address] [id number] [place] [address] Sep, [facility] [address] [id number] [place] [address] Sep, [facility] [address] [id number] [place] [address] Sep, [facility] [address] [id number] [place] [address] 03 Sep, 2013 [facility] [address] [id number] [place] [address] Aug, [facility] [address] [id number] [place] [address] Aug, [facility] [address] [id number] [place] [address] Aug, [facility] [address] [id number] [place] [address] Aug, [facility] [address] [id number] [place] [address] Aug, [facility] [address] [id number] [place] [address] Jul, [facility] [address] [id number] [place] [address] Jul, [facility] [address] [id number] [place] [address] Jul, [facility] [address] [id number] [place] [address] Jul, [facility] [address] [id number] [place] [address] Jul, [facility] [address] [id number] [place] [address] Jul, [facility] [address] [id number] [place] [address] Jul, [facility] [address] [id number] [place] [address] Jul, [facility] [address] [id number] [place] [address] Jul, [facility] [address] [id number] [place] [address] Jun, [facility] [address] [id number] [place] [address] Jun, [facility] [address] [id number] [place] [address] Jun, [facility] [address] [id number] [place] [address] Jun, [facility] [address] [id number] [place] [address] 18 Jun, 2013 [facility] [address] [facility] [id number] [place] [address] Jun, [facility] [address] [id number] [place] [address] Jun, [facility] [address] [id number] [place] [address] Jun, [facility] [address] [id number] [place] [address] Jun, [facility] [address] [facility] [id number] [place] [address] Jun, [facility] [address] [facility] [id number] [place] [address] May, [facility] [address] [facility] [id number] [place] [address] 28 May, 2013 [facility] [address] [facility] [id number] [place] [address] May, [facility] [address] [facility] [id number] [place] [address] 22 May, 2013 [facility] [address] [id number] [place] [address] 16 May, 2013 [facility] [address] [id number] [place] [address] May, [facility] [address] [id number] [place] [address] May, [facility] [address] [facility] [id number] [place] [address] May, [facility] [address] [id number] [place] [address] 11 May, 2013 [facility] [address] [id number] [place] [address] 26 Apr, 2013 [facility] [address] [id number] [place] [address] 16 Apr, 2013 [facility] [id number] [place] [address] Apr, [facility] [address] [facility] [id number] [place] [address] Apr, [facility] [address] [facility] [id number] [place] [address] Mar, [facility] [address] [id number] [place] [address] Mar, [facility] [address] [id number] [place] [address] Mar, [facility] [address] [id number] [place] [address] Mar, [facility] [address] [facility] [id number] [place] [address] Mar, [facility] [address] [facility] [id number] [place] [address] Mar, [facility] [address] [id number] [place] [address] Mar, [facility] [address] [id number] [place] [address] Feb, [facility] [address] [id number] [place] [address] Feb, [facility] [address] [id number] [place] [address] Feb, [facility] [address] [facility] [id number] [place] [address] Feb, [facility] [address] [id number] [place] [address] Feb, [facility] [address] [id number] [place] [address] Feb, [facility] [address] [id number] [place] [address] Feb, [facility] [address] [id number] [place] [address] Feb, [facility] [address] [facility] [id number] [facility] [place] [address] Feb, [facility] [address] [id number] [facility] [place] [address] Feb, [facility] [address] [id number] [place] [address] Feb, [facility] [address] [id number] [place] [address] Jan, [facility] [address] [facility] [id number] [facility] [place] [address] Jan, [facility] [address] [id number] [place] [address] December, [facility] [address] [id number] [place] [address] December, [facility] [address] [id number] [place] [address] Nov, [facility] [address] [id number] [place] [address] Nov, [facility] [address] [id number] [place] [address] Oct, [facility] [address] [id number] [place] [address] Oct, [facility] [address] [id number] [place] [address] Oct, [facility] [address] [id number] [place] [address] Oct, [facility] [address] [id number] [place] [address] Sep, [facility] [address] [id number] [place] [address] Sep, [facility] [address] [id number] [place] [address] Sep, [facility] [address] [id number] [place] [address] Sep, [facility] [address] [id number] [place] [address] Aug, [facility] [address] [id number] [place] [address] Aug, [facility] [address] [id number] [place] [address] Jul, [facility] [address] [id number] [place] [address] Jul, [facility] [address] [id number] [place] [address] Jul, [facility] [address] [id number] [place] [address] Jul, [facility] [address] [id number] [place] [address] Jul, [facility] [address] [id number] [place] [address] Jul, [facility] [address] [id number] [place] [address] Jun, [facility] [address] [id number] [place] [address] Jun, [facility] [address] [id number] [place] [address] Jun, [facility] [address] [id number] [place] [address] Jun, [facility] [address] [id number] [place] [address] Jun, [facility] [id number] [place] [address] May, [facility] [address] [id number] [place] [address] May, [facility] [address] [id number] [place] [address] May, [facility] [address] [id number] [place] [address] May, [facility] [address] [id number] [place] [address] May, [facility] [address] [id number] [place] [address] May, [facility] [address] [id number] [place] [address] May, [facility] [address] [id number] [place] [address] May, [facility] [address] [id number] [place] [address] Mar, [facility] [address] [id number] [place] [address] Mar, [facility] [address] [id number] [place] [address] Mar, [facility] [address] [id number] [place] [address] Feb, [facility] [address] [id number] [place] [address] Feb, [facility] [address] [id number] [place] [address] Feb, [facility] [address] [id number] [place] [address] Feb, [facility] [address] [id number] [place] [address] Jan, [facility] [address] [id number] [place] [address] Jan, [facility] [address] [id number] [place] [address] Jan, [facility] [address] [id number] [place] [address] December, [facility] [address] [id number] [place] [address] 04 Nov, 2011 [facility] [address] [id number] [place] [address] Oct, [facility] [address] [id number] [place] [address] Oct, [facility] [address] [id number] [place] [address] Oct, [facility] [address] [id number] [place] [address] Oct, [facility] [address] [id number] [place] [address] Aug, [facility] [address] [id number] [place] [address] Aug, [facility] [address] [id number] [place] [address] Aug, [facility] [address] [id number] [place] [address] Aug, [facility] [address] [id number] [place] [address] Aug, [facility] [address] [id number] [place] [address] Aug, [facility] [address] [id number] [place] [address] Aug, [facility] [address] [id number] [place] [address] Aug, [facility] [address] [id number] [place] [address] Jul, [facility] [address] [id number] [place] [address] Jun, [facility] [address] [id number] [place] [address] Jun, [facility] [address] [id number] [place] [address] Jul, [facility] [address] [id number] [place] [address] 22 Jul, 2010 [facility] [address] [facility] [id number] [place] [address] 22 Jul, 2010 [facility] [address] [id number] [place] [address] 14 Jul, 2010 [facility] [address] [id number] [place] [address] 14 Jul, 2010 [facility] [address] [id number] [place] [address] 24 Jun, 2010 [facility] [address] [id number] [place] [address] May, [facility] [address] [id number] [place] [address] Mar, [facility] [address] [id number] [place] [address] Oct, [facility] [address] [id number] [place] [address] Aug, [facility] [address] [id number] [place] [address] 15 Jul, 2009 [facility] [address] [id number] [place] [address] Jul, [facility] [address] [id number] [place] [address] Jun, [facility] [address] [id number] [place] [address] Jun, [facility] [address] [facility] [id number] [place] [address] May, [facility] [address] [id number] [place] [address] May, [facility] [address] [id number] [place] [address] Mar, [facility] [address] [id number] [place] [address] Mar, [facility] [address] [facility] [id number] [place] [address] Oct, IMMUNIZATIONS No Known Immunizations SOCIAL HISTORY [...] replacement L1- L5 - Dr Benito pantoja ([place]) Surgical History appendectomy 1983 Surgical History hysterectomy 1993 Surgical History dilatation and curettage Surgical History heart cath- Dr Shaw [address] Solano bowel and intestines sep2015 Surgical History Dr solano removed skin tag and cyst 2017 Surgical History Colonoscopy and upper GI 04/2019 Surgical History endoscopy 08/13/19 Hospitalization History Hospitalization for surgery only
--- OUTSIDE RECORDS SUMMARY | 2019-11-08 08:41 | XMS REPORT ---
Author Author Elizabeth GUADALUPE Organization 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 Active 16844903 Problem Opioid use disorder, moderate, in sustained remission F11.21 Active 27195342 Problem Tobacco use Z72.0 Active 68407127 8 Problem Cocaine use disorder, moderate, in sustained remission F14.21 Active 72433542 Problem GERD with esophagitis K21.0 Active 807500043 Problem Prediabetes 790.29 Active 4615381 Problem PTSD (post-traumatic stress disorder) F43.10 Active 51006022 Problem Bipolar disorder F31.9 Active 137 30882 Problem Gastroesophageal reflux disease, esophagitis pre sence not specified K21.9 Active 833995524 Problem Menopausal disorder N95.9 Active 308944387 Problem Insomnia, unspecified type G47.00 Act avelina 109167757 Problem Cigarette nicotine dependence without complication F17.210 Active 37520750 Problem Cannabis abuse F12.10 Active 73371 009 Problem Irritable bowel syndrome with diarrhea K58.0 Active 543660441 Problem Acute pain of left shoulder M25.512 Ac tive 80393159 Problem Mixed hyperlipidemia E78.2 Active 549963415 Problem Generalized anxiety disorder F41.1 A ctive 49048404 Problem Arthritis M19.90 Active 4444509 Problem Other chronic pain G89.29 Active 8 1108846 Problem Fibromyalgia M79.7 Active 1192256 05 Problem Perimenopausal vasomotor symptoms N95.1 Active 492779811 ALLERGIES No Information ENCOUNTERS Encounter Location Date Diagnosis [place] [id number] [place] [address] Oct, [facility] [address] [address] 12 Oct, 2019 Acute rhinosinusitis J01.90 ; Generalize d anxiety disorder F41.1 ; Major depressive disorder, recurrent episode, moderate F33.1 ; Gastroesophageal reflux disease, esophagitis presence not specified K21.9 ; Irritable bowel syndrome with diarrhea K58.0 and Mixed hyperlipidemia E78.2 [facility] [address] [facility] [id number] [address] [place] [address] Oct, Viral upper respiratory trac t infection J06.9 [place] [address] [address] 19 Sep, 2019 [place] [address] [address] 14 Sep, 2019 Major depressive disorder, recurrent epi sode, moderate F33.1 ; Generalized anxiety disorder F41.1 ; Irritable bowel syndrome with diarrhea K58.0 and Epigastric abdominal pain R10.[address] [facility] [address] [facility] [address] May, Dental examination Z01.20 and Caries K02.9 [place] [address] [address] 08 May, 2019 Right upper quadrant pain R10.11 and Mix ed hyperlipidemia E78.2 [place] [address] [address] Mar, Perimenopausal vasomotor symptoms N95.1 [place] [address] [address] Mar, [place] [address] [address] Mar, [place] [address] [address] Mar, [place] [address] [address] Mar, Perimenopausal vasomotor symptoms N95.1 ; Irritable bowel syndrome with diarrhea K58.0 ; Insomnia, unspecified type G47.00 and Weight gain R63.5 [place] [address] [address] 16 Feb, 2019 [place] [address] [address] Feb, [place] [address] [address] Jan, [place] [address] [address] Jan, Fibromyalgia M79.7 ; Insect bite (nonven omous) of lower back and pelvis, sequela S30.860S ; Bitten or stung by nonvenomous insect and other nonvenomous arthropods, sequela W57.XXXS ; Arthritis M19.90 and Menopausal disorder N95.9 [place] [address] [address] Jan, [place] [address] [address] Jan, Mixed hyperlipidemia E78.2 [place] [address] [address] December, Screening for breast cancer Z12.31 and B reast lump N63.0 [place] [address] [address] December, Chest pain, unspecified type R07.9 [place] [address] [address] December, Chest pain, unspecified type R07.9 ; Gas troesophageal reflux disease, esophagitis presence not specified K21.9 and Left breast lump N63.20 [place] [address] [address] December, [facility] [address] [facility] [id number] [address] [place] [address] December, Suprapubic abdominal pain R1 0.2 and Dysuria R30.0 [facility] [id number] [place] [address] December, [facility] [address] [address] December, Cannabis abuse F12.10 ; Generalized anxi ety disorder F41.1 ; Methamphetamine use disorder, severe, in sustained remission F15.21 ; Alcohol use disorder, mild, in sustained remission F10.11 ; PTSD (post-traumatic stress disorder) F43.10 ; Cocaine use disorder, moderate, in sustained remission F14.21 and Bipolar disorder F31.9 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 [address] [place] [address] Sep, Major depressive disorder, recurrent epi sode, moderate F33.1 [facility] [address] [id number] [place] [id number] Aug, [facility] [address] [place] [address] Jul, Dysuria R30.0 [facility] [address] [address] Jul, Major depressive disorder, recurrent epi sode, moderate F33.1 [facility] [address] [address] Jun, Major depressive disorder, recurrent epi sode, moderate F33.1 [place] [address] [address] Jun, Major depressive disorder, recurrent epi sode, moderate F33.1 [place] [address] [address] Jun, Acute pain of left shoulder M25.512 and Cigarette nicotine dependence without complication F17.210 [place] [address] [address] May, [place] [address] [address] May, Cocaine use disorder, moderate, in susta ined remission F14.21 [place] [address] [place] [address] May, [facility] [address] [facility] [address] May, Dental examination Z01.20 [facility] [address] [facility] [place] [id number] May, Dental examination Z01.20 and Caries K02 .9 [place] [address] [place] [address] May, Common wart B07.8 [place] [address] [address] May, [place] [address] [address] Apr, Cocaine use disorder, moderate, in susta ined remission F14.21 [place] [id number] [place] [address] 14 Apr, 2018 [facility] [address] [id number] [place] [id number] 13 Apr, 2018 Dental examination Z01.20 [facility] [address] [facility] [place] [id number] 10 Mar, 2018 Encounter for dental exam and cleaning w /o abnormal findings Z01.20 [facility] [address] [address] 07 Mar, 2018 [place] [address] [address] Feb, Cocaine use disorder, moderate, in susta [...] disorder, recurrent episode, moderate F33.1 [place] [address] [address] Jan, Cocaine use disorder, moderate, in susta ined remission F14.21 [place] [address] [address] Jan, Cocaine use disorder, moderate, in susta [...] disorder, recurrent episode, moderate F33.1 [place] [address] [address] Jan, Dysuria R30.0 and GERD with esophagitis K21.0 [place] [id number] [place] [address] December, Major depressive disorder, recurrent epi sode, moderate F33.1 [facility] [address] [place] [address] December, [facility] [id number] [place] [address] December, Major depressive disorder, recurrent epi sode, [...] F10.11 and Tobacco use Z72.0 [place] [id number] [place] [address] Nov, [facility] [address] [place] [id number] [address] Nov, [facility] [address] [address] Nov, Wellness examination Z00.00 ; Encounter for immunization Z23 ; Screening for osteoporosis Z13.820 ; Screening for breast cancer Z12.31 and Left breast lump N63.20 [facility] [address] [id number] [place] [id number] Oct, Dental examination Z01.20 [facility] [id number] [place] [address] Oct, [facility] [address] [address] Oct, [facility] [address] [address] Sep, [facility] [address] [address] Sep, [facility] [address] [address] 14 Sep, 2017 Left otitis media with effusion H65.92 ; Acute suppurative otitis media of right ear without spontaneous rupture of tympanic membrane, recurrence not specified H66.001 ; Dizziness R42 and Fatigue 780.79 [place] [address] [address] Aug, Major depressive disorder, recurrent epi sode, [...] F10.11 and Tobacco use Z72.0 [facility] [address] [facility] [id number] [address] [place] [address] Aug, Ingrown right big toenail L6 0.0 [place] [address] [address] Aug, [place] [address] [address] Aug, PTSD (post-traumatic stress disorder) F4 3.10 [place] [address] [address] Aug, Major depressive disorder, recurrent epi sode, moderate F33.1 ; Generalized anxiety disorder F41.1 and Cannabis abuse F12.10 [place] [address] [address] Jul, [place] [address] [address] Jul, [place] [address] [address] Jul, [place] [address] [address] Jul, Major depressive disorder, recurrent epi sode, moderate F33.1 ; Generalized anxiety disorder F41.1 and Cannabis abuse F12.10 [place] [address] [place] [address] Jul, [place] [address] [address] Jul, [place] [address] [place] [address] Jul, Hyperlipidemia 272.4 [place] [address] [place] [address] Jul, PTSD (post-traumatic stress disorder) F4 3.10 [place] [address] [address] Jul, Tobacco use Z72.0 ; Alcohol use [...] F41.1 and Cannabis abuse F12.10 [place] [address] [address] Jul, [address] [address] Jul, Dysuria R30.0 and Mixed hyperlipidemia E 78.[address] [address] 30 Jun, 2017 Major depressive disorder, recurrent epi sode, moderate F33.1 ; Generalized anxiety disorder F41.1 and Cannabis abuse F12.10 [place] [address] [id number] Jun, [place] [address] 15 Jun, 2017 Generalized anxiety disorder F41.1 [...] sustained remission F14.21 and Tobacco use Z72.[address] [address] Jun, Major depressive disorder, recurrent epi sode, moderate F33.1 ; Generalized anxiety disorder F41.1 and Cannabis abuse F12.[address] [address] Jun, [address] [address] Jun, [address] [address] Jun, Major depressive disorder, recurrent epi sode, moderate F33.1 ; Generalized anxiety disorder F41.1 and Cannabis abuse F12.10 [facility] [address] [id number] Mar, Dental examination Z01.20 [facility] [address] [id number] Feb, Dental examination Z01.[address] [address] Mar, [address] [address] Mar, [address] [address] Feb, Hyperlipidemia 272.4 and Prediabetes [address] [address] Feb, Fatigue 780.79 and Hyperlipidemia 272.[address] [address] Feb, Lumbago 724.2 ; Hyperlipidemia 272.4 ; I nsomnia 780.52 and Fatigue 780.79 [facility] [id number] [place] [address] Nov, [facility] [id number] [place] [address] Nov, [facility] [id number] [place] [address] Mar, [facility] [id number] [place] [address] Mar, [facility] [id number] [place] [address] Jan, [facility] [id number] [place] [address] Jan, [facility] [id number] [place] [address] December, [facility] [id number] [place] [address] December, [facility] [id number] [place] [address] Nov, [facility] [id number] [place] [address] Nov, [facility] [id number] [place] [address] Nov, [facility] [id number] [place] [address] Nov, [facility] [id number] [place] [address] Nov, [facility] [id number] [place] [address] Nov, [facility] [id number] [place] [address] Oct, [facility] [id number] [place] [address] Oct, [facility] [address] [facility] [id number] [place] [address] Oct, [facility] [address] [id number] [place] [address] Oct, [facility] [address] [id number] [place] [address] Oct, [facility] [address] [id number] [place] [address] Oct, [facility] [address] [id number] [place] [address] Oct, [facility] [address] [id number] [place] [address] Oct, [facility] [address] [id number] [place] [address] Oct, [facility] [address] [id number] [place] [address] Oct, [facility] [address] [id number] [place] [address] Oct, [facility] [address] [id number] [place] [address] Oct, [facility] [address] [id number] [place] [address] Oct, [facility] [address] [id number] [place] [address] Sep, [facility] [address] [id number] [place] [address] Sep, [facility] [address] [id number] [place] [address] Sep, [facility] [address] [id number] [place] [address] Sep, [facility] [address] [id number] [place] [address] Sep, [facility] [address] [id number] [place] [address] 20 Sep, 2013 [facility] [address] [facility] [id number] [place] [address] 18 Sep, 2013 [facility] [address] [id number] [place] [address] 18 Sep, 2013 [facility] [address] [id number] [place] [address] 14 Sep, 2013 [facility] [address] [id number] [place] [address] 14 Sep, 2013 [facility] [address] [id number] [place] [address] 14 Sep, 2013 [facility] [address] [id number] [place] [address] 14 Sep, 2013 [facility] [address] [id number] [place] [address] 14 Sep, 2013 [facility] [address] [id number] [place] [address] 14 Sep, 2013 [facility] [address] [id number] [place] [address] 13 Sep, 2013 [facility] [address] [id number] [place] [address] Sep, [facility] [address] [id number] [place] [address] Sep, [facility] [address] [id number] [place] [address] Sep, [facility] [address] [id number] [place] [address] Sep, [facility] [address] [id number] [place] [address] 03 Sep, 2013 [facility] [address] [id number] [place] [address] Aug, [facility] [address] [id number] [place] [address] Aug, [facility] [address] [id number] [place] [address] Aug, [facility] [address] [id number] [place] [address] Aug, [facility] [address] [id number] [place] [address] Aug, [facility] [address] [id number] [place] [address] Jul, [facility] [address] [id number] [place] [address] Jul, [facility] [address] [id number] [place] [address] Jul, [facility] [address] [id number] [place] [address] Jul, [facility] [address] [id number] [place] [address] Jul, [facility] [address] [id number] [place] [address] Jul, [facility] [address] [id number] [place] [address] Jul, [facility] [address] [id number] [place] [address] Jul, [facility] [address] [id number] [place] [address] Jul, [facility] [address] [id number] [place] [address] Jun, [facility] [address] [id number] [place] [address] Jun, [facility] [address] [id number] [place] [address] Jun, [facility] [address] [id number] [place] [address] Jun, [facility] [address] [id number] [place] [address] 18 Jun, 2013 [facility] [address] [facility] [id number] [place] [address] Jun, [facility] [address] [id number] [place] [address] Jun, [facility] [address] [id number] [place] [address] Jun, [facility] [address] [id number] [place] [address] Jun, [facility] [address] [id number] [place] [address] Jun, [facility] [address] [id number] [place] [address] May, [facility] [address] [id number] [place] [address] 28 May, 2013 [facility] [address] [id number] [place] [address] May, [facility] [address] [id number] [place] [address] 22 May, 2013 [facility] [address] [id number] [place] [address] 16 May, 2013 [facility] [address] [id number] [place] [address] May, [facility] [address] [id number] [place] [address] May, [facility] [address] [id number] [place] [address] May, [facility] [address] [id number] [place] [address] 11 May, 2013 [facility] [address] [id number] [place] [address] 26 Apr, 2013 [facility] [address] [id number] [place] [address] 16 Apr, 2013 [facility] [address] [id number] [place] [address] Apr, [facility] [address] [id number] [place] [address] Apr, [facility] [address] [id number] [place] [address] Mar, [facility] [address] [id number] [place] [address] Mar, [facility] [address] [id number] [place] [address] Mar, [facility] [address] [id number] [place] [address] Mar, [facility] [address] [id number] [place] [address] Mar, [facility] [address] [id number] [place] [address] Mar, [facility] [address] [id number] [place] [address] Mar, [facility] [address] [id number] [place] [address] Feb, [facility] [address] [id number] [place] [address] Feb, [facility] [address] [id number] [place] [address] Feb, [facility] [address] [id number] [place] [address] Feb, [facility] [address] [id number] [place] [address] Feb, [facility] [address] [id number] [place] [address] Feb, [facility] [address] [id number] [place] [address] Feb, [facility] [address] [id number] [place] [address] Feb, [facility] [address] [facility] [id number] [facility] [place] [address] Feb, [facility] [address] [id number] [facility] [place] [address] Feb, [facility] [address] [id number] [place] [address] Feb, [facility] [address] [id number] [place] [address] Jan, [facility] [address] [facility] [id number] [facility] [place] [address] Jan, [facility] [address] [id number] [place] [address] December, [facility] [address] [id number] [place] [address] December, [facility] [address] [id number] [place] [address] Nov, [facility] [address] [id number] [place] [address] Nov, [facility] [address] [id number] [place] [address] Oct, [facility] [address] [id number] [place] [address] Oct, [facility] [address] [id number] [place] [address] Oct, [facility] [address] [id number] [place] [address] Oct, [facility] [address] [id number] [place] [address] Sep, [facility] [address] [id number] [place] [address] Sep, [facility] [address] [id number] [place] [address] Sep, [facility] [address] [id number] [place] [address] Sep, [facility] [address] [id number] [place] [address] Aug, [facility] [address] [id number] [place] [address] Aug, [facility] [address] [id number] [place] [address] Jul, [facility] [address] [id number] [place] [address] Jul, [facility] [address] [id number] [place] [address] Jul, [facility] [address] [id number] [place] [address] Jul, [facility] [address] [id number] [place] [address] Jul, [facility] [address] [id number] [place] [address] Jul, [facility] [address] [id number] [place] [address] Jun, [facility] [address] [id number] [place] [address] Jun, [facility] [address] [id number] [place] [address] Jun, [facility] [address] [id number] [place] [address] Jun, [facility] [address] [id number] [place] [address] Jun, [facility] [id number] [place] [address] May, [facility] [address] [id number] [place] [address] May, [facility] [address] [id number] [place] [address] May, [facility] [address] [id number] [place] [address] May, [facility] [address] [id number] [place] [address] May, [facility] [address] [id number] [place] [address] May, [facility] [address] [id number] [place] [address] May, [facility] [address] [id number] [place] [address] May, [facility] [address] [id number] [place] [address] Mar, [facility] [address] [id number] [place] [address] Mar, [facility] [address] [id number] [place] [address] Mar, [facility] [address] [id number] [place] [address] Feb, [facility] [address] [id number] [place] [address] Feb, [facility] [address] [id number] [place] [address] Feb, [facility] [address] [id number] [place] [address] Feb, [facility] [address] [id number] [place] [address] Jan, [facility] [address] [id number] [place] [address] Jan, [facility] [address] [id number] [place] [address] Jan, [facility] [address] [id number] [place] [address] December, [facility] [address] [id number] [place] [address] 04 Nov, 2011 [facility] [address] [id number] [place] [address] Oct, [facility] [address] [id number] [place] [address] Oct, [facility] [address] [id number] [place] [address] Oct, [facility] [address] [id number] [place] [address] Oct, [facility] [address] [id number] [place] [address] Aug, [facility] [address] [id number] [place] [address] Aug, [facility] [address] [id number] [place] [address] Aug, [facility] [address] [id number] [place] [address] Aug, [facility] [address] [id number] [place] [address] Aug, [facility] [address] [id number] [place] [address] Aug, [facility] [address] [id number] [place] [address] Aug, [facility] [address] [id number] [place] [address] Aug, [facility] [address] [id number] [place] [address] Jul, [facility] [address] [id number] [place] [address] Jun, [facility] [address] [id number] [place] [address] Jun, [facility] [address] [id number] [place] [address] Jul, [facility] [address] [id number] [place] [address] 22 Jul, 2010 [facility] [address] [facility] [id number] [place] [address] 22 Jul, 2010 [facility] [address] [id number] [place] [address] 14 Jul, 2010 [facility] [address] [id number] [place] [address] 14 Jul, 2010 [facility] [address] [id number] [place] [address] 24 Jun, 2010 [facility] [address] [id number] [place] [address] May, [facility] [address] [id number] [place] [address] Mar, [facility] [address] [id number] [place] [address] Oct, [facility] [address] [id number] [place] [address] Aug, [facility] [address] [id number] [place] [address] 15 Jul, 2009 [facility] [address] [id number] [place] [address] Jul, [facility] [address] [id number] [place] [address] Jun, [facility] [address] [id number] [place] [address] Jun, [facility] [address] [facility] [id number] [place] [address] May, [facility] [address] [id number] [place] [address] May, [facility] [address] [id number] [place] [address] Mar, [facility] [address] [id number] [place] [address] Mar, [facility] [address] [facility] [id number] [place] [address] Oct, IMMUNIZATIONS No Known Immunizations SOCIAL HISTORY [...] replacement L1- L5 - Dr Benito pantoja ([facility]) Surgical History appendectomy 1983 Surgical History hysterectomy 1993 Surgical History dilatation and curettage Surgical History heart cath- Dr Shaw [address] Solano bowel and intestines sep2015 Surgical History Dr solano removed skin tag and cyst 2017 Surgical History Colonoscopy and upper GI 04/2019 Surgical History endoscopy 08/13/19 Hospitalization History Hospitalization for surgery only
--- OUTSIDE RECORDS SUMMARY | 2019-11-08 08:41 | XMS REPORT ---
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 Active 76802506 Problem Opioid use disorder, moderate, in sustained remission F11.21 Active 63924182 Problem Tobacco use Z72.0 Active 02124622 8 Problem Cocaine use disorder, moderate, in sustained remission F14.21 Active 93977768 Problem GERD with esophagitis K21.0 Active 924473526 Problem Prediabetes 790.29 Active 1870118 Problem PTSD (post-traumatic stress disorder) F43.10 Active 18805644 Problem Bipolar disorder F31.9 Active 137 46245 Problem Gastroesophageal reflux disease, esophagitis pre sence not specified K21.9 Active 866867852 Problem Menopausal disorder N95.9 Active 108848913 Problem Insomnia, unspecified type G47.00 Act avelina 024323979 Problem Cigarette nicotine dependence without complication F17.210 Active 58036124 Problem Cannabis abuse F12.10 Active 75857 009 Problem Irritable bowel syndrome with diarrhea K58.0 Active 063855268 Problem Acute pain of left shoulder M25.512 Ac tive 57826821 Problem Mixed hyperlipidemia E78.2 Active 217720683 Problem Generalized anxiety disorder F41.1 A ctive 55550311 Problem Arthritis M19.90 Active 1290374 Problem Other chronic pain G89.29 Active 8 9998508 Problem Fibromyalgia M79.7 Active 4760138 05 Problem Perimenopausal vasomotor symptoms N95.1 Active 551345779 ALLERGIES No Information ENCOUNTERS Encounter Location Date Diagnosis [place] [id number] [place] [address] Oct, [facility] [address] [address] 12 Oct, 2019 Acute rhinosinusitis J01.90 ; Generalize d anxiety disorder F41.1 ; Major depressive disorder, recurrent episode, moderate F33.1 ; Gastroesophageal reflux disease, esophagitis presence not specified K21.9 ; Irritable bowel syndrome with diarrhea K58.0 and Mixed hyperlipidemia E78.2 [facility] [address] [facility] [id number] [address] [place] [address] Oct, Viral upper respiratory trac t infection J06.9 [place] [address] [address] 19 Sep, 2019 [place] [address] [address] 14 Sep, 2019 Major depressive disorder, recurrent epi sode, moderate F33.1 ; Generalized anxiety disorder F41.1 ; Irritable bowel syndrome with diarrhea K58.0 and Epigastric abdominal pain R10.13 [facility] [address] [facility] [address] May, Dental examination Z01.20 and Caries K02.9 [place] [address] [address] 08 May, 2019 Right upper quadrant pain R10.11 and Mix ed hyperlipidemia E78.2 [place] [address] [address] Mar, Perimenopausal vasomotor symptoms N95.1 [place] [address] [address] Mar, [place] [address] [address] Mar, [place] [address] [address] Mar, [place] [address] [address] Mar, Perimenopausal vasomotor symptoms N95.1 ; Irritable bowel syndrome with diarrhea K58.0 ; Insomnia, unspecified type G47.00 and Weight gain R63.5 [place] [address] [address] 16 Feb, 2019 [place] [address] [address] Feb, [place] [address] [address] Jan, [place] [address] [address] Jan, Fibromyalgia M79.7 ; Insect bite (nonven omous) of lower back and pelvis, sequela S30.860S ; Bitten or stung by nonvenomous insect and other nonvenomous arthropods, sequela W57.XXXS ; Arthritis M19.90 and Menopausal disorder N95.9 [place] [address] [address] Jan, [place] [address] [address] Jan, Mixed hyperlipidemia E78.2 [place] [address] [address] December, Screening for breast cancer Z12.31 and B reast lump N63.0 [place] [address] [address] December, Chest pain, unspecified type R07.9 [place] [address] [address] December, Chest pain, unspecified type R07.9 ; Gas troesophageal reflux disease, esophagitis presence not specified K21.9 and Left breast lump N63.20 [place] [address] [address] December, [facility] [address] [facility] [id number] [address] [place] [address] December, Suprapubic abdominal pain R1 0.2 and Dysuria R30.0 [facility] [id number] [place] [address] December, [facility] [address] [address] December, Cannabis abuse F12.10 ; Generalized anxi ety disorder F41.1 ; Methamphetamine use disorder, severe, in sustained remission F15.21 ; Alcohol use disorder, mild, in sustained remission F10.11 ; PTSD (post-traumatic stress disorder) F43.10 ; Cocaine use disorder, moderate, in sustained remission F14.21 and Bipolar disorder F31.9 [facility] [address] [address] Nov, Major depressive disorder, recurrent epi sode, moderate F33.1 ; Cannabis abuse F12.10 ; Generalized anxiety disorder F41.1 ; Methamphetamine use disorder, severe, in sustained remission F15.21 ; Alcohol use disorder, mild, in sustained remission F10.11 ; PTSD (post-traumatic stress disorder) F43.10 and Cocaine use disorder, moderate, in sustained remission F14.21 [facility] [id number] [place] [address] Oct, Major depressive disorder, recurrent epi sode, moderate F33.1 ; Cannabis abuse F12.10 ; Generalized anxiety disorder F41.1 ; Methamphetamine use disorder, severe, in sustained remission F15.21 ; Alcohol use disorder, mild, in sustained remission F10.11 ; PTSD (post-traumatic stress disorder) F43.10 and Cocaine use disorder, moderate, in sustained remission F14.21 [facility] [address] [place] [address] Sep, Major depressive disorder, recurrent epi sode, moderate F33.1 [facility] [address] [facility] [place] [id number] Aug, [facility] [id number] [place] [address] Jul, Dysuria R30.0 [facility] [address] [address] Jul, Major depressive disorder, recurrent epi sode, moderate F33.1 [facility] [address] [address] Jun, Major depressive disorder, recurrent epi sode, moderate F33.1 [place] [address] [address] Jun, Major depressive disorder, recurrent epi sode, moderate F33.1 [place] [address] [address] Jun, Acute pain of left shoulder M25.512 and Cigarette nicotine dependence without complication F17.210 [place] [address] [address] May, [place] [address] [address] May, Cocaine use disorder, moderate, in susta ined remission F14.21 [place] [address] [place] [address] May, [facility] [address] [id number], [place] [address] May, Dental examination Z01.20 [facility] [address] [facility] [place] [id number] May, Dental examination Z01.20 and Caries K02 .9 [place] [address] [place] [address] May, Common wart B07.8 [place] [address] [address] May, [place] [address] [address] Apr, Cocaine use disorder, moderate, in susta ined remission F14.21 [place] [id number] [place] [address] 14 Apr, 2018 [facility] [address] [facility] [place] [id number] 13 Apr, 2018 Dental examination Z01.20 [facility] [address] [facility] [place] [id number] 10 Mar, 2018 Encounter for dental exam and cleaning w /o abnormal findings Z01.20 [facility] [address] [address] 07 Mar, 2018 [place] [address] [address] Feb, Cocaine use disorder, moderate, in susta [...] Major depressive disorder, recurrent episode, moderate F33.1 [place] [address] [address] Jan, Cocaine use disorder, moderate, in susta ined remission F14.21 [place] [address] [address] Jan, Cocaine use disorder, moderate, in susta [...] Major depressive disorder, recurrent episode, moderate F33.1 [place] [address] [address] Jan, Dysuria R30.0 and GERD with esophagitis K21.0 [place] [id number] [place] [address] December, Major depressive disorder, recurrent epi sode, moderate F33.1 [facility] [address] [place] [address] December, [facility] [id number] [place] [address] December, Major depressive disorder, recurrent epi sode, [...] sustained remission F10.11 and Tobacco use Z72.0 [place] [id number] [place] [address] Nov, [facility] [address] [place] [address] [address] Nov, [facility] [address] [address] Nov, Wellness examination Z00.00 ; Encounter for immunization Z23 ; Screening for osteoporosis Z13.820 ; Screening for breast cancer Z12.31 and Left breast lump N63.20 [facility] [address] [facility] [place] [id number] Oct, Dental examination Z01.20 [facility] [id number] [place] [address] Oct, [facility] [address] [address] Oct, [facility] [address] [address] Sep, [facility] [address] [address] Sep, [facility] [address] [address] 14 Sep, 2017 Left otitis media with effusion H65.92 ; Acute suppurative otitis media of right ear without spontaneous rupture of tympanic membrane, recurrence not specified H66.001 ; Dizziness R42 and Fatigue 780.79 [place] [address] [address] Aug, Major depressive disorder, recurrent epi sode, [...] sustained remission F10.11 and Tobacco use Z72.0 [facility] [address] [facility] [id number] [address] [place] [address] Aug, Ingrown right big toenail L6 0.0 [place] [address] [address] Aug, [place] [address] [address] Aug, PTSD (post-traumatic stress disorder) F4 3.10 [place] [address] [address] Aug, Major depressive disorder, recurrent epi sode, moderate F33.1 ; Generalized anxiety disorder F41.1 and Cannabis abuse F12.10 [place] [address] [address] Jul, [place] [address] [address] Jul, [place] [address] [address] Jul, [place] [address] [address] Jul, Major depressive disorder, recurrent epi sode, moderate F33.1 ; Generalized anxiety disorder F41.1 and Cannabis abuse F12.10 [place] [address] [place] [address] Jul, [place] [address] [address] Jul, [place] [address] [address] Jul, Hyperlipidemia 272.4 [place] [address] [place] [address] Jul, PTSD (post-traumatic stress disorder) F4 3.10 [place] [address] [address] Jul, Tobacco use Z72.0 ; Alcohol use [...] anxiety disorder F41.1 and Cannabis abuse F12.10 [place] [address] [address] Jul, [address] [address] Jul, Dysuria R30.0 and Mixed hyperlipidemia E 78.[address] [address] 30 Jun, 2017 Major depressive disorder, recurrent epi sode, moderate F33.1 ; Generalized anxiety disorder F41.1 and Cannabis abuse F12.10 [place] [address] [id number] Jun, [place] [address] 15 Jun, 2017 Generalized anxiety disorder F41.1 [...] sustained remission F14.21 and Tobacco use Z72.[address] [address] Jun, Major depressive disorder, recurrent epi sode, moderate F33.1 ; Generalized anxiety disorder F41.1 and Cannabis abuse F12.[address] [address] Jun, [address] [address] Jun, [address] [address] Jun, Major depressive disorder, recurrent epi sode, moderate F33.1 ; Generalized anxiety disorder F41.1 and Cannabis abuse F12.10 [facility] [address] [id number] Mar, Dental examination Z01.20 [facility] [address] [id number] Feb, Dental examination Z01.[address] [address] Mar, [address] [address] Mar, [address] [address] Feb, Hyperlipidemia 272.4 and Prediabetes [address] [address] Feb, Fatigue 780.79 and Hyperlipidemia 272.[address] [address] Feb, Lumbago 724.2 ; Hyperlipidemia 272.4 ; I nsomnia 780.52 and Fatigue 780.79 [facility] [id number] [place] [address] Nov, [facility] [id number] [place] [address] Nov, [facility] [id number] [place] [address] Mar, [facility] [id number] [place] [address] Mar, [facility] [id number] [place] [address] Jan, [facility] [id number] [place] [address] Jan, [facility] [id number] [place] [address] December, [facility] [id number] [place] [address] December, [facility] [id number] [place] [address] Nov, [facility] [id number] [place] [address] Nov, [facility] [id number] [place] [address] Nov, [facility] [id number] [place] [address] Nov, [facility] [id number] [place] [address] Nov, [facility] [id number] [place] [address] Nov, [facility] [id number] [place] [address] Oct, [facility] [id number] [place] [address] Oct, [facility] [address] [facility] [id number] [place] [address] Oct, [facility] [address] [id number] [place] [address] Oct, [facility] [address] [id number] [place] [address] Oct, [facility] [address] [id number] [place] [address] Oct, [facility] [address] [id number] [place] [address] Oct, [facility] [address] [id number] [place] [address] Oct, [facility] [address] [id number] [place] [address] Oct, [facility] [address] [id number] [place] [address] Oct, [facility] [address] [id number] [place] [address] Oct, [facility] [address] [id number] [place] [address] Oct, [facility] [address] [id number] [place] [address] Oct, [facility] [address] [id number] [place] [address] Sep, [facility] [address] [id number] [place] [address] Sep, [facility] [address] [id number] [place] [address] Sep, [facility] [address] [id number] [place] [address] Sep, [facility] [address] [id number] [place] [address] Sep, [facility] [address] [id number] [place] [address] 20 Sep, 2013 [facility] [address] [facility] [id number] [place] [address] 18 Sep, 2013 [facility] [address] [id number] [place] [address] 18 Sep, 2013 [facility] [address] [id number] [place] [address] 14 Sep, 2013 [facility] [address] [id number] [place] [address] 14 Sep, 2013 [facility] [address] [id number] [place] [address] 14 Sep, 2013 [facility] [address] [id number] [place] [address] 14 Sep, 2013 [facility] [address] [id number] [place] [address] 14 Sep, 2013 [facility] [address] [id number] [place] [address] 14 Sep, 2013 [facility] [address] [id number] [place] [address] 13 Sep, 2013 [facility] [address] [id number] [place] [address] Sep, [facility] [address] [id number] [place] [address] Sep, [facility] [address] [id number] [place] [address] Sep, [facility] [address] [id number] [place] [address] Sep, [facility] [address] [id number] [place] [address] 03 Sep, 2013 [facility] [address] [id number] [place] [address] Aug, [facility] [address] [id number] [place] [address] Aug, [facility] [address] [id number] [place] [address] Aug, [facility] [address] [id number] [place] [address] Aug, [facility] [address] [id number] [place] [address] Aug, [facility] [address] [id number] [place] [address] Jul, [facility] [address] [id number] [place] [address] Jul, [facility] [address] [id number] [place] [address] Jul, [facility] [address] [id number] [place] [address] Jul, [facility] [address] [id number] [place] [address] Jul, [facility] [address] [id number] [place] [address] Jul, [facility] [address] [id number] [place] [address] Jul, [facility] [address] [id number] [place] [address] Jul, [facility] [address] [id number] [place] [address] Jul, [facility] [address] [id number] [place] [address] Jun, [facility] [address] [id number] [place] [address] Jun, [facility] [address] [id number] [place] [address] Jun, [facility] [address] [id number] [place] [address] Jun, [facility] [address] [id number] [place] [address] 18 Jun, 2013 [facility] [address] [facility] [id number] [place] [address] Jun, [facility] [address] [id number] [place] [address] Jun, [facility] [address] [id number] [place] [address] Jun, [facility] [address] [id number] [place] [address] Jun, [facility] [address] [id number] [place] [address] Jun, [facility] [address] [id number] [place] [address] May, [facility] [address] [id number] [place] [address] 28 May, 2013 [facility] [address] [id number] [place] [address] May, [facility] [address] [id number] [place] [address] 22 May, 2013 [facility] [address] [id number] [place] [address] 16 May, 2013 [facility] [address] [id number] [place] [address] May, [facility] [address] [id number] [place] [address] May, [facility] [address] [id number] [place] [address] May, [facility] [address] [id number] [place] [address] 11 May, 2013 [facility] [address] [id number] [place] [address] 26 Apr, 2013 [facility] [address] [id number] [place] [address] 16 Apr, 2013 [facility] [address] [id number] [place] [address] Apr, [facility] [address] [id number] [place] [address] Apr, [facility] [address] [id number] [place] [address] Mar, [facility] [address] [id number] [place] [address] Mar, [facility] [address] [id number] [place] [address] Mar, [facility] [address] [id number] [place] [address] Mar, [facility] [address] [id number] [place] [address] Mar, [facility] [address] [id number] [place] [address] Mar, [facility] [address] [id number] [place] [address] Mar, [facility] [address] [id number] [place] [address] Feb, [facility] [address] [id number] [place] [address] Feb, [facility] [address] [id number] [place] [address] Feb, [facility] [address] [id number] [place] [address] Feb, [facility] [address] [id number] [place] [address] Feb, [facility] [address] [id number] [place] [address] Feb, [facility] [address] [id number] [place] [address] Feb, [facility] [address] [id number] [place] [address] Feb, [facility] [address] [facility] [id number] [facility] [place] [address] Feb, [facility] [address] [id number] [facility] [place] [address] Feb, [facility] [address] [id number] [place] [address] Feb, [facility] [address] [id number] [place] [address] Jan, [facility] [address] [facility] [id number] [facility] [place] [address] Jan, [facility] [address] [id number] [place] [address] December, [facility] [address] [id number] [place] [address] December, [facility] [address] [id number] [place] [address] Nov, [facility] [address] [id number] [place] [address] Nov, [facility] [address] [id number] [place] [address] Oct, [facility] [address] [id number] [place] [address] Oct, [facility] [address] [id number] [place] [address] Oct, [facility] [address] [id number] [place] [address] Oct, [facility] [address] [id number] [place] [address] Sep, [facility] [address] [id number] [place] [address] Sep, [facility] [address] [id number] [place] [address] Sep, [facility] [address] [id number] [place] [address] Sep, [facility] [address] [id number] [place] [address] Aug, [facility] [address] [id number] [place] [address] Aug, [facility] [address] [id number] [place] [address] Jul, [facility] [address] [id number] [place] [address] Jul, [facility] [address] [id number] [place] [address] Jul, [facility] [id number] [place] [address] Jul, [facility] [id number] [place] [address] Jul, [facility] [id number] [place] [address] Jul, [facility] [id number] [place] [address] Jun, [facility] [id number] [place] [address] Jun, [facility] [id number] [place] [address] Jun, [facility] [id number] [place] [address] Jun, [facility] [id number] [place] [address] Jun, [facility] [id number] [place] [address] May, [facility] [id number] [place] [address] May, [facility] [id number] [place] [address] May, [facility] [id number] [place] [address] May, [facility] [id number] [place] [address] May, [facility] [id number] [place] [address] May, [facility] [id number] [place] [address] May, [facility] [id number] [place] [address] May, [facility] [id number] [place] [address] Mar, [facility] [id number] [place] [address] Mar, [facility] [id number] [place] [address] Mar, [facility] [id number] [place] [address] Feb, [facility] [id number] [place] [address] Feb, [facility] [id number] [place] [address] Feb, [facility] [id number] [place] [address] Feb, [facility] [id number] [place] [address] Jan, [facility] [id number] [place] [address] Jan, [facility] [id number] [place] [address] Jan, [facility] [id number] [place] [address] December, [facility] [id number] [place] [address] 04 Nov, 2011 [facility] [id number] [place] [address] Oct, [facility] [id number] [place] [address] Oct, [facility] [id number] [place] [address] Oct, [facility] [id number] [place] [address] Oct, [facility] [id number] [place] [address] Aug, [facility] [id number] [place] [address] Aug, [facility] [id number] [place] [address] Aug, [facility] [id number] [place] [address] Aug, [facility] [id number] [place] [address] Aug, [facility] [id number] [place] [address] Aug, [facility] [id number] [place] [address] Aug, [facility] [id number] [place] [address] Aug, [facility] [id number] [place] [address] Jul, [facility] [id number] [place] [address] Jun, [facility] [id number] [place] [address] Jun, [facility] [id number] [place] [address] Jul, [facility] [id number] [place] [address] 22 Jul, 2010 [facility] [address] [facility] [id number] [place] [address] 22 Jul, 2010 [facility] [id number] [place] [address] 14 Jul, 2010 [facility] [id number] [place] [address] 14 Jul, 2010 [facility] [id number] [place] [address] 24 Jun, 2010 [facility] [id number] [place] [address] May, [facility] [id number] [place] [address] Mar, [facility] [id number] [place] [address] Oct, [facility] [id number] [place] [address] Aug, [facility] [id number] [place] [address] 15 Jul, 2009 [facility] [id number] [place] [address] Jul, [facility] [id number] [place] [address] Jun, [facility] [id number] [place] [address] Jun, [facility] [address] [facility] [id number] [place] [address] May, [facility] [id number] [place] [address] May, [facility] [id number] [place] [address] Mar, [facility] [id number] [place] [address] Mar, [facility] [address] [facility] [id number] [place] [address] Oct, IMMUNIZATIONS No Known Immunizations SOCIAL HISTORY Never Assessed REASON FOR VISIT PLAN OF CARE VITAL SIGNS Height 68 in 2013-10-08 Weight 196.38 lbs 2013-10-08 Temperature 96.8 degrees Fahrenheit 2013-10-08 Heart Rate 82 bpm 2013-10-08 Respiratory Rate 16 2013-10-08 Blood pressure systolic 110 mmHg 2013-10-08 Blood pressure diastolic 70 mmHg 2013-10-08 MEDICATIONS Unknown Medications RESULTS No Results PROCEDURES Procedure Date Ordered Result Body Site DRUG SCREEN, QUALITATE/MULTI October 08, 2013 INSTRUCTIONS MEDICATIONS ADMINISTERED No Known Medications [...] Surgical History carpal tunnel release- bilateral- Dr Whitten t Surgical History Upper Lateral Release- Tennis Elbow- Dr Marquez Surgical History rotator cuff tear repair on left and right shoulder-- done at different times (2 years apart) - Dr Marquez Surgical History Spinal disc replacement L1- L5 - Dr Benito pantoja ([place]) Surgical History appendectomy 1983 Surgical History hysterectomy 1993 Surgical History dilatation and curettage Surgical History heart cath- Dr Shaw [address] Solano bowel and intestines seperated [address] solano removed skin tag and cyst 2017 Surgical History Colonoscopy and upper GI 04/2019 Surgical History endoscopy 08/13/19 Hospitalization History Hospitalization for surgery only
--- OUTSIDE RECORDS SUMMARY | 2019-11-08 08:42 | XMS REPORT ---
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 Active 60436030 Problem Opioid use disorder, moderate, in sustained remission F11.21 Active 81782977 Problem Tobacco use Z72.0 Active 86097631 8 Problem Cocaine use disorder, moderate, in sustained remission F14.21 Active 03474737 Problem GERD with esophagitis K21.0 Active 692091506 Problem Prediabetes 790.29 Active 5396178 Problem PTSD (post-traumatic stress disorder) F43.10 Active 28960575 Problem Bipolar disorder F31.9 Active 137 76961 Problem Gastroesophageal reflux disease, esophagitis pre sence not specified K21.9 Active 578177144 Problem Menopausal disorder N95.9 Active 997897397 Problem Insomnia, unspecified type G47.00 Act avelina 992704683 Problem Cigarette nicotine dependence without complication F17.210 Active 26135835 Problem Cannabis abuse F12.10 Active 33762 009 Problem Irritable bowel syndrome with diarrhea K58.0 Active 076680799 Problem Acute pain of left shoulder M25.512 Ac tive 07113964 Problem Mixed hyperlipidemia E78.2 Active 923905670 Problem Generalized anxiety disorder F41.1 A ctive 84612785 Problem Arthritis M19.90 Active 5636761 Problem Other chronic pain G89.29 Active 8 8332984 Problem Fibromyalgia M79.7 Active 6933648 05 Problem Perimenopausal vasomotor symptoms N95.1 Active [id number] ALLERGIES No Information ENCOUNTERS Encounter Location Date Diagnosis [facility] [id number] [place] [address] Oct, [facility] [address] [facility] [id number] [address] [place] [address] 11 Oct, 2019 Viral upper respiratory trac t infection J06.9 [facility] [address] [address] 19 Sep, 2019 [place] [address] [address] 14 Sep, 2019 Major depressive disorder, recurrent epi sode, moderate F33.1 ; Generalized anxiety disorder F41.1 ; Irritable bowel syndrome with diarrhea K58.0 and Epigastric abdominal pain R10.13 [facility] [address] [id number] [place] [address] 24 May, 2019 Dental examination Z01.20 and Caries K02.9 [place] [address] [address] May, Right upper quadrant pain R10.11 and Mix ed hyperlipidemia E78.2 [place] [address] [address] Mar, Perimenopausal vasomotor symptoms N95.1 [place] [address] [address] Mar, [place] [address] [address] Mar, [facility] [address] [address] Mar, [place] [address] [address] Mar, Perimenopausal vasomotor symptoms N95.1 ; Irritable bowel syndrome with diarrhea K58.0 ; Insomnia, unspecified type G47.00 and Weight gain R63.5 [place] [address] [address] Feb, [place] [address] [address] Feb, [place] [address] [address] Jan, [place] [address] [address] Jan, Fibromyalgia M79.7 ; Insect bite (nonven omous) of lower back and pelvis, sequela S30.860S ; Bitten or stung by nonvenomous insect and other nonvenomous arthropods, sequela W57.XXXS ; Arthritis M19.90 and Menopausal disorder N95.9 [place] [address] [address] Jan, [place] [address] [address] Jan, Mixed hyperlipidemia E78.2 [place] [address] [address] December, Screening for breast cancer Z12.31 and B reast lump N63.0 [place] [address] [address] December, Chest pain, unspecified type R07.9 [place] [address] [address] December, Chest pain, unspecified type R07.9 ; Gas troesophageal reflux disease, esophagitis presence not specified K21.9 and Left breast lump N63.20 [place] [address] [address] December, [facility] [address] [facility] [id number] [place] [address] December, Suprapubic abdominal pain R1 0.2 and Dysuria R30.0 [place] [address] [address] December, [place] [address] [address] December, Cannabis abuse F12.10 ; Generalized anxi ety disorder F41.1 ; Methamphetamine use disorder, severe, in sustained remission F15.21 ; Alcohol use disorder, mild, in sustained remission F10.11 ; PTSD (post-traumatic stress disorder) F43.10 ; Cocaine use disorder, moderate, in sustained remission F14.21 and Bipolar disorder F31.9 [place] [address] [address] Nov, Major depressive disorder, recurrent epi sode, moderate F33.1 ; Cannabis abuse F12.10 ; Generalized anxiety disorder F41.1 ; Methamphetamine use disorder, severe, in sustained remission F15.21 ; Alcohol use disorder, mild, in sustained remission F10.11 ; PTSD (post-traumatic stress disorder) F43.10 and Cocaine use disorder, moderate, in sustained remission F14.21 [place] [address] [address] Oct, Major depressive disorder, recurrent epi sode, moderate F33.1 ; Cannabis abuse F12.10 ; Generalized anxiety disorder F41.1 ; Methamphetamine use disorder, severe, in sustained remission F15.21 ; Alcohol use disorder, mild, in sustained remission F10.11 ; PTSD (post-traumatic stress disorder) F43.10 and Cocaine use disorder, moderate, in sustained remission F14.21 [place] [id number] [place] [address] Sep, Major depressive disorder, recurrent epi sode, moderate F33.1 [facility] [address] [facility] [place] [id number] Aug, [facility] [address] [address] Jul, Dysuria R30.[address] [address] Jul, Major depressive disorder, recurrent epi sode, moderate F33.1 [facility] [address] [address] Jun, Major depressive disorder, recurrent epi sode, moderate F33.1 [facility] [address] [address] Jun, Major depressive disorder, recurrent epi sode, moderate F33.1 [place] [address] [address] 09 Jun, 2018 Acute pain of left shoulder M25.512 and Cigarette nicotine dependence without complication F17.210 [place] [address] [address] May, [place] [address] [address] May, Cocaine use disorder, moderate, in susta ined remission F14.21 [place] [address] [address] May, [facility] [address] [place] [address] May, Dental examination Z01.20 [facility] [address] [id number] May, Dental examination Z01.20 and Caries K02 .9 [place] [address] [address] May, Common wart B07.8 [place] [address] [address] May, [place] [address] [address] Apr, Cocaine use disorder, moderate, in susta ined remission F14.21 [place] [address] [address] 14 Apr, 2018 [facility] [address] [id number] Apr, Dental examination Z01.20 [facility] [address] [id number] Mar, Encounter for dental exam and cleaning w /o abnormal findings Z01.20 [place] [address] [address] Mar, [address] [address] Feb, Cocaine use disorder, moderate, in susta [...] Major depressive disorder, recurrent episode, moderate F33.[address] [address] Jan, Cocaine use disorder, moderate, in susta ined remission F14.[address] [address] Jan, Cocaine use disorder, moderate, in susta [...] Major depressive disorder, recurrent episode, moderate F33.[address] [address] Jan, Dysuria R30.0 and GERD with esophagitis K21.[address] [address] December, Major depressive disorder, recurrent epi sode, moderate F33.[address] [address] December, [address] [address] December, Major depressive disorder, recurrent epi sode, [...] F10.11 and Tobacco use Z72.0 [facility] [id number] [place] [address] Nov, [facility] [address] [id number] [address] Nov, [facility] [address] [address] Nov, Wellness examination Z00.00 ; Encounter for immunization Z23 ; Screening for osteoporosis Z13.820 ; Screening for breast cancer Z12.31 and Left breast lump N63.20 [facility] [address] [facility] [place] [id number] Oct, Dental examination Z01.20 [facility] [address] [address] Oct, [facility] [address] [address] Oct, [facility] [address] [address] 16 Sep, 2017 [facility] [address] [address] 15 Sep, 2017 [facility] [address] [address] 14 Sep, 2017 Left otitis media with effusion H65.92 ; Acute suppurative otitis media of right ear without spontaneous rupture of tympanic membrane, recurrence not specified H66.001 ; Dizziness R42 and Fatigue 780.79 [facility] [address] [address] Aug, Major depressive disorder, recurrent epi sode, [...] [facility] [address] [facility] [id number] [address] [place] [address] Aug, Ingrown right big toenail L6 0.0 [place] [address] [address] Aug, [place] [address] [address] Aug, PTSD (post-traumatic stress disorder) F4 3.10 [place] [address] [address] Aug, Major depressive disorder, recurrent epi sode, moderate F33.1 ; Generalized anxiety disorder F41.1 and Cannabis abuse F12.10 [place] [address] [id number] Jul, [place] [address] [address] Jul, [place] [address] [id number] Jul, [place] [address] [address] Jul, Major depressive disorder, recurrent epi sode, moderate F33.1 ; Generalized anxiety disorder F41.1 and Cannabis abuse F12.10 [place] [address] [address] Jul, [place] [address] [address] Jul, [place] [address] [id number] Jul, Hyperlipidemia 272.[address] [address] Jul, PTSD (post-traumatic stress disorder) F4 3.[address] [address] Jul, Tobacco use Z72.0 ; Alcohol use [...] anxiety disorder F41.1 and Cannabis abuse F12.[address] [address] Jul, [place] [address] Jul, Dysuria R30.0 and Mixed hyperlipidemia E 78.[address] [address] Jun, Major depressive disorder, recurrent epi sode, moderate F33.1 ; Generalized anxiety disorder F41.1 and Cannabis abuse F12.[address] [address] Jun, [place] [address] Jun, Generalized anxiety disorder F41.1 ; Blayne or depressive disorder, recurrent episode, moderate F33.1 ; PTSD (post-traumatic stress disorder) F43.10 ; Opioid use disorder, moderate, in sustained remission F11.21 ; Cannabis abuse F12.10 ; Alcohol use disorder, mild, in sustained remission F10.11 ; Methamphetamine use disorder, severe, in sustained remission F15.21 ; Cocaine use disorder, moderate, in sustained remission F14.21 and Tobacco use Z72.[address] [place] [address] Jun, Major depressive disorder, recurrent epi sode, moderate F33.1 ; Generalized anxiety disorder F41.1 and Cannabis abuse F12.10 [place] [address] [id number] Jun, [facility] [address] [address] Jun, [place] [address] [place] [address] Jun, Major depressive disorder, recurrent epi sode, moderate F33.1 ; Generalized anxiety disorder F41.1 and Cannabis abuse F12.10 [facility] [address] [id number] Mar, Dental examination Z01.20 [facility] [address] [id number] Feb, Dental examination Z01.[address] [address] Mar, [place] [address] [address] Mar, [place] [address] Feb, Hyperlipidemia 272.4 and Prediabetes [address] [address] Feb, Fatigue 780.79 and Hyperlipidemia 272.[address] [address] Feb, Lumbago 724.2 ; Hyperlipidemia 272.4 ; I nsomnia 780.52 and Fatigue 780.[address] [address] Nov, [place] [address] [address] Nov, [address] [place] [address] Mar, [facility] [address] [facility] [id number] [place] [address] Mar, [facility] [address] [facility] [id number] [place] [address] Jan, [facility] [address] [id number] [place] [address] Jan, [facility] [address] [id number] [place] [address] December, [facility] [address] [facility] [id number] [place] [address] December, [facility] [address] [id number] [place] [address] Nov, [facility] [address] [id number] [place] [address] Nov, [facility] [address] [id number] [place] [address] Nov, [facility] [address] [id number] [place] [address] Nov, [facility] [address] [id number] [place] [address] Nov, [facility] [address] [id number] [place] [address] Nov, [facility] [address] [id number] [place] [address] Oct, [facility] [address] [facility] [id number] [place] [address] 31 Oct, 2013 [facility] [address] [id number] [place] [address] Oct, [facility] [address] [id number] [place] [address] Oct, [facility] [address] [id number] [place] [address] 19 Oct, 2013 [facility] [address] [id number] [place] [address] Oct, [facility] [address] [id number] [place] [address] Oct, [facility] [address] [id number] [place] [address] Oct, [facility] [address] [id number] [place] [address] Oct, [facility] [address] [id number] [place] [address] Oct, [facility] [address] [id number] [place] [address] Oct, [facility] [address] [id number] [place] [address] Oct, [facility] [address] [id number] [place] [address] Oct, [facility] [address] [id number] [place] [address] Sep, [facility] [address] [id number] [place] [address] Sep, [facility] [address] [id number] [place] [address] Sep, [facility] [address] [id number] [place] [address] Sep, [facility] [address] [id number] [place] [address] Sep, [facility] [address] [id number] [place] [address] Sep, [facility] [address] [id number] [place] [address] Sep, [facility] [address] [id number] [place] [address] Sep, [facility] [address] [id number] [place] [address] 14 Sep, 2013 [facility] [address] [facility] [id number] [place] [address] 14 Sep, 2013 [facility] [address] [id number] [place] [address] 14 Sep, 2013 [facility] [address] [id number] [place] [address] 14 Sep, 2013 [facility] [address] [id number] [place] [address] 14 Sep, 2013 [facility] [address] [id number] [place] [address] 14 Sep, 2013 [facility] [address] [id number] [place] [address] 13 Sep, 2013 [facility] [address] [id number] [place] [address] Sep, [facility] [address] [id number] [place] [address] Sep, [facility] [address] [id number] [place] [address] Sep, [facility] [address] [id number] [place] [address] 03 Sep, 2013 [facility] [address] [id number] [place] [address] Sep, [facility] [address] [id number] [place] [address] Aug, [facility] [address] [id number] [place] [address] Aug, [facility] [address] [id number] [place] [address] Aug, [facility] [address] [id number] [place] [address] Aug, [facility] [address] [id number] [place] [address] Aug, [facility] [address] [id number] [place] [address] Jul, [facility] [address] [id number] [place] [address] Jul, [facility] [address] [id number] [place] [address] Jul, [facility] [address] [id number] [place] [address] Jul, [facility] [address] [id number] [place] [address] Jul, [facility] [address] [id number] [place] [address] Jul, [facility] [address] [id number] [place] [address] Jul, [facility] [address] [id number] [place] [address] Jul, [facility] [address] [id number] [place] [address] Jul, [facility] [address] [id number] [place] [address] Jun, [facility] [address] [id number] [place] [address] Jun, [facility] [address] [id number] [place] [address] Jun, [facility] [address] [id number] [place] [address] Jun, [facility] [address] [id number] [place] [address] Jun, [facility] [address] [id number] [place] [address] Jun, [facility] [address] [id number] [place] [address] Jun, [facility] [address] [id number] [place] [address] Jun, [facility] [address] [facility] [id number] [place] [address] Jun, [facility] [address] [id number] [place] [address] Jun, [facility] [address] [id number] [place] [address] May, [facility] [address] [id number] [place] [address] May, [facility] [address] [id number] [place] [address] May, [facility] [address] [id number] [place] [address] May, [facility] [address] [id number] [place] [address] May, [facility] [address] [id number] [place] [address] May, [facility] [address] [id number] [place] [address] May, [facility] [address] [id number] [place] [address] May, [facility] [address] [id number] [place] [address] May, [facility] [address] [id number] [place] [address] 26 Apr, 2013 [facility] [address] [facility] [id number] [place] [address] 16 Apr, 2013 [facility] [address] [id number] [place] [address] 12 Apr, 2013 [facility] [address] [id number] [place] [address] 06 Apr, 2013 [facility] [address] [id number] [place] [address] Mar, [facility] [address] [id number] [place] [address] Mar, [facility] [address] [id number] [place] [address] Mar, [facility] [address] [facility] [id number] [place] [address] Mar, [facility] [address] [id number] [place] [address] Mar, [facility] [address] [facility] [id number] [place] [address] Mar, [facility] [address] [id number] [place] [address] Mar, [facility] [address] [id number] [place] [address] Feb, [facility] [address] [id number] [place] [address] Feb, [facility] [address] [id number] [place] [address] Feb, [facility] [address] [id number] [place] [address] Feb, [facility] [address] [id number] [place] [address] Feb, [facility] [address] [id number] [place] [address] Feb, [facility] [address] [id number] [place] [address] Feb, [facility] [address] [id number] [place] [address] Feb, [facility] [address] [id number] [place] [address] Feb, [facility] [address] [id number] [place] [address] Feb, [facility] [address] [id number] [place] [address] Feb, [facility] [address] [facility] [id number] [place] [address] Jan, [facility] [address] [facility] [id number] [place] [address] Jan, [facility] [address] [facility] [id number] [place] [address] December, [facility] [address] [id number] [place] [address] December, [facility] [address] [facility] [id number] [place] [address] Nov, [facility] [address] [id number] [place] [address] Nov, [facility] [address] [id number] [place] [address] Oct, [facility] [address] [id number] [place] [address] Oct, [facility] [address] [facility] [id number] [place] [address] Oct, [facility] [address] [id number] [place] [address] Oct, [facility] [address] [id number] [place] [address] Sep, [facility] [address] [id number] [place] [address] Sep, [facility] [address] [facility] [id number] [place] [address] Sep, [facility] [address] [facility] [id number] [place] [address] Sep, [facility] [address] [id number] [place] [address] Aug, [facility] [address] [id number] [place] [address] Aug, [facility] [address] [id number] [place] [address] Jul, [facility] [address] [id number] [place] [address] Jul, [facility] [address] [id number] [place] [address] Jul, [facility] [address] [id number] [place] [address] Jul, [facility] [address] [id number] [place] [address] Jul, [facility] [address] [id number] [place] [address] Jul, [facility] [address] [id number] [place] [address] Jun, [facility] [address] [id number] [place] [address] Jun, [facility] [address] [id number] [place] [address] Jun, [facility] [address] [id number] [place] [address] Jun, [facility] [address] [id number] [place] [address] Jun, [facility] [address] [id number] [place] [address] May, [facility] [address] [id number] [place] [address] May, [facility] [address] [id number] [place] [address] May, [facility] [id number] [place] [address] May, [facility] [address] [id number] [place] [address] May, [facility] [address] [id number] [place] [address] May, [facility] [address] [facility] [id number] [place] [address] May, [facility] [address] [id number] [place] [address] May, [facility] [address] [id number] [place] [address] Mar, [facility] [address] [id number] [place] [address] Mar, [facility] [address] [id number] [place] [address] Mar, [facility] [address] [id number] [place] [address] Feb, [facility] [address] [id number] [place] [address] Feb, [facility] [address] [id number] [place] [address] Feb, [facility] [address] [id number] [place] [address] Feb, [facility] [address] [id number] [place] [address] Jan, [facility] [address] [id number] [place] [address] Jan, [facility] [address] [id number] [place] [address] Jan, [facility] [address] [id number] [place] [address] December, [facility] [address] [id number] [place] [address] Nov, [facility] [address] [id number] [place] [address] Oct, [facility] [address] [id number] [place] [address] Oct, [facility] [address] [id number] [place] [address] Oct, [facility] [address] [id number] [place] [address] Oct, [facility] [address] [id number] [place] [address] Aug, [facility] [address] [id number] [place] [address] Aug, [facility] [address] [id number] [place] [address] Aug, [facility] [address] [id number] [place] [address] Aug, [facility] [address] [id number] [place] [address] Aug, [facility] [address] [id number] [place] [address] Aug, [facility] [address] [id number] [place] [address] Aug, [facility] [address] [id number] [place] [address] Aug, [facility] [address] [id number] [place] [address] Jul, [facility] [address] [id number] [place] [address] Jun, [facility] [address] [id number] [place] [address] Jun, [facility] [address] [id number] [place] [address] Jul, [facility] [address] [id number] [place] [address] Jul, [facility] [address] [id number] [place] [address] Jul, [facility] [address] [id number] [place] [address] 14 Jul, 2010 [facility] [address] [id number] [place] [address] 14 Jul, 2010 [facility] [address] [id number] [place] [address] Jun, [facility] [address] [id number] [place] [address] May, [facility] [id number] [place] [address] Mar, [facility] [id number] [place] [address] Oct, [facility] [id number] [place] [address] Aug, [facility] [id number] [place] [address] Jul, [facility] [id number] [place] [address] Jul, [facility] [id number] [place] [address] Jun, [facility] [id number] [place] [address] Jun, [facility] [id number] [place] [address] May, [facility] [id number] [place] [address] May, [facility] [id number] [place] [address] Mar, [facility] [address] [id number] [place] [address] Mar, [facility] [id number] [place] [address] Oct, IMMUNIZATIONS No Known Immunizations SOCIAL HISTORY [...] replacement L1- L5 - Dr Benito pantoja ([facility]) Surgical History appendectomy 1983 Surgical History hysterectomy 1993 Surgical History dilatation and curettage Surgical History heart cath- Dr Shaw [address] Solano bowel and intestines seperated [address] solano removed skin tag and cyst 2017 Surgical History Colonoscopy and upper GI 04/2019 Surgical History endoscopy 08/13/19 Hospitalization History Hospitalization for surgery only
--- OUTSIDE RECORDS SUMMARY | 2019-11-08 08:42 | XMS REPORT ---
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 Active 38078153 Problem Opioid use disorder, moderate, in sustained remission F11.21 Active 75496831 Problem Tobacco use Z72.0 Active 53681653 8 Problem Cocaine use disorder, moderate, in sustained remission F14.21 Active 46056093 Problem GERD with esophagitis K21.0 Active 769939256 Problem Prediabetes 790.29 Active 7432799 Problem PTSD (post-traumatic stress disorder) F43.10 Active 04001670 Problem Bipolar disorder F31.9 Active 137 19294 Problem Gastroesophageal reflux disease, esophagitis pre sence not specified K21.9 Active 042284645 Problem Menopausal disorder N95.9 Active 197280559 Problem Insomnia, unspecified type G47.00 Act avelina 986381305 Problem Cigarette nicotine dependence without complication F17.210 Active 30343301 Problem Cannabis abuse F12.10 Active 29557 009 Problem Irritable bowel syndrome with diarrhea K58.0 Active 677465681 Problem Acute pain of left shoulder M25.512 Ac tive 35314486 Problem Mixed hyperlipidemia E78.2 Active 808909980 Problem Generalized anxiety disorder F41.1 A ctive 58787049 Problem Arthritis M19.90 Active 4641396 Problem Other chronic pain G89.29 Active 8 8688896 Problem Fibromyalgia M79.7 Active 2673578 05 Problem Perimenopausal vasomotor symptoms N95.1 Active 170442492 ALLERGIES No Information ENCOUNTERS Encounter Location Date Diagnosis [place] [id number] [place] [address] Oct, [facility] [address] [address] 12 Oct, 2019 Acute rhinosinusitis J01.90 ; Generalize d anxiety disorder F41.1 ; Major depressive disorder, recurrent episode, moderate F33.1 ; Gastroesophageal reflux disease, esophagitis presence not specified K21.9 ; Irritable bowel syndrome with diarrhea K58.0 and Mixed hyperlipidemia E78.2 [facility] [address] [facility] [id number] [address] [place] [address] Oct, Viral upper respiratory trac t infection J06.9 [place] [address] [address] 19 Sep, 2019 [place] [address] [address] 14 Sep, 2019 Major depressive disorder, recurrent epi sode, moderate F33.1 ; Generalized anxiety disorder F41.1 ; Irritable bowel syndrome with diarrhea K58.0 and Epigastric abdominal pain R10.13 [facility] [address] [facility], [place] [address] May, Dental examination Z01.20 and Caries K02.9 [place] [address] [address] 08 May, 2019 Right upper quadrant pain R10.11 and Mix ed hyperlipidemia E78.2 [place] [address] [address] Mar, Perimenopausal vasomotor symptoms N95.1 [place] [address] [address] Mar, [place] [address] [address] Mar, [place] [address] [address] Mar, [place] [address] [address] Mar, Perimenopausal vasomotor symptoms N95.1 ; Irritable bowel syndrome with diarrhea K58.0 ; Insomnia, unspecified type G47.00 and Weight gain R63.5 [place] [address] [address] 16 Feb, 2019 [place] [address] [address] Feb, [place] [address] [address] Jan, [place] [address] [address] Jan, Fibromyalgia M79.7 ; Insect bite (nonven omous) of lower back and pelvis, sequela S30.860S ; Bitten or stung by nonvenomous insect and other nonvenomous arthropods, sequela W57.XXXS ; Arthritis M19.90 and Menopausal disorder N95.9 [place] [address] [address] Jan, [place] [address] [address] Jan, Mixed hyperlipidemia E78.2 [place] [address] [address] December, Screening for breast cancer Z12.31 and B reast lump N63.0 [place] [address] [address] December, Chest pain, unspecified type R07.9 [place] [address] [address] December, Chest pain, unspecified type R07.9 ; Gas troesophageal reflux disease, esophagitis presence not specified K21.9 and Left breast lump N63.20 [place] [address] [address] December, [facility] [address] [facility] [id number] [address] [place] [address] December, Suprapubic abdominal pain R1 0.2 and Dysuria R30.0 [facility] [id number] [place] [address] December, [facility] [address] [address] December, Cannabis abuse F12.10 ; Generalized anxi ety disorder F41.1 ; Methamphetamine use disorder, severe, in sustained remission F15.21 ; Alcohol use disorder, mild, in sustained remission F10.11 ; PTSD (post-traumatic stress disorder) F43.10 ; Cocaine use disorder, moderate, in sustained remission F14.21 and Bipolar disorder F31.9 [facility] [address] [address] Nov, Major depressive disorder, recurrent epi sode, moderate F33.1 ; Cannabis abuse F12.10 ; Generalized anxiety disorder F41.1 ; Methamphetamine use disorder, severe, in sustained remission 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 ; Alcohol use disorder, mild, in sustained remission F10.11 ; PTSD (post-traumatic stress disorder) F43.10 and Cocaine use disorder, moderate, in sustained remission F14.21 [facility] [id number] [place] [address] Oct, Major depressive disorder, recurrent epi sode, moderate F33.1 ; Cannabis abuse F12.10 ; Generalized anxiety disorder F41.1 ; Methamphetamine use disorder, severe, in sustained remission F15.21 ; Alcohol use disorder, mild, in sustained remission F10.11 ; PTSD (post-traumatic stress disorder) F43.10 and Cocaine use disorder, moderate, in sustained remission F14.21 [facility] [id number] [place] [address] Sep, Major depressive disorder, recurrent epi sode, moderate F33.1 [facility] [address] [facility] [place] [id number] Aug, [facility] [id number] [place] [address] Jul, Dysuria R30.0 [facility] [address] [address] Jul, Major depressive disorder, recurrent epi sode, moderate F33.1 [facility] [address] [address] Jun, Major depressive disorder, recurrent epi sode, moderate F33.1 [place] [address] [address] Jun, Major depressive disorder, recurrent epi sode, moderate F33.1 [place] [address] [address] Jun, Acute pain of left shoulder M25.512 and Cigarette nicotine dependence without complication F17.210 [place] [address] [address] May, [place] [address] [address] May, Cocaine use disorder, moderate, in susta ined remission F14.21 [place] [id number] [place] [address] May, [facility] [address] [facility], [place] [address] May, Dental examination Z01.20 [facility] [address] [facility] [place] [id number] May, Dental examination Z01.20 and Caries K02 .9 [place] [id number] [place] [address] May, Common wart B07.8 [place] [address] [address] May, [place] [address] [address] Apr, Cocaine use disorder, moderate, in susta ined remission F14.21 [place] [id number] [place] [address] 14 Apr, 2018 [facility] [address] [id number] [place] [id number] 13 Apr, [address] [facility] [address] [facility] [place] [id number] 10 Mar, 2018 Encounter for dental exam and cleaning w /o abnormal findings Z01.20 [facility] [address] [address] 07 Mar, 2018 [place] [address] [address] Feb, Cocaine use disorder, moderate, in susta [...] Major depressive disorder, recurrent episode, moderate F33.1 [place] [address] [address] Jan, Cocaine use disorder, moderate, in susta ined remission F14.21 [place] [address] [address] Jan, Cocaine use disorder, moderate, in susta [...] Major depressive disorder, recurrent episode, moderate F33.1 [place] [address] [address] Jan, Dysuria R30.0 and GERD with esophagitis K21.0 [place] [id number] [place] [address] December, Major depressive disorder, recurrent epi sode, moderate F33.1 [facility] [id number] [place] [address] December, [facility] [id number] [place] [address] December, Major depressive disorder, recurrent epi sode, [...] sustained remission F10.11 and Tobacco use Z72.0 [place] [id number] [place] [address] Nov, [facility] [address] [id number] [address] Nov, [facility] [address] [address] Nov, Wellness examination Z00.00 ; Encounter for immunization Z23 ; Screening for osteoporosis Z13.820 ; Screening for breast cancer Z12.31 and Left breast lump N63.20 [facility] [address] [id number] [place] [address] Oct, Dental examination Z01.20 [facility] [id number] [place] [address] Oct, [facility] [address] [address] Oct, [facility] [address] [address] Sep, [facility] [address] [address] Sep, [facility] [address] [address] 14 Sep, 2017 Left otitis media with effusion H65.92 ; Acute suppurative otitis media of right ear without spontaneous rupture of tympanic membrane, recurrence not specified H66.001 ; Dizziness R42 and Fatigue 780.79 [place] [address] [address] Aug, Major depressive disorder, recurrent epi sode, [...] remission F10.11 and Tobacco use Z72.0 [facility] [address] [facility] [id number] [address] [place] [address] Aug, Ingrown right big toenail L6 0.0 [place] [address] [address] Aug, [place] [address] [address] Aug, PTSD (post-traumatic stress disorder) F4 3.10 [place] [address] [address] Aug, Major depressive disorder, recurrent epi sode, moderate F33.1 ; Generalized anxiety disorder F41.1 and Cannabis abuse F12.10 [place] [address] [address] Jul, [place] [address] [address] Jul, [place] [address] [address] Jul, [place] [address] [address] Jul, Major depressive disorder, recurrent epi sode, moderate F33.1 ; Generalized anxiety disorder F41.1 and Cannabis abuse F12.10 [place] [address] [place] [address] Jul, [place] [address] [address] Jul, [place] [address] [address] Jul, Hyperlipidemia 272.4 [place] [address] [place] [address] Jul, PTSD (post-traumatic stress disorder) F4 3.10 [place] [address] [address] Jul, Tobacco use Z72.0 ; Alcohol use [...] anxiety disorder F41.1 and Cannabis abuse F12.10 [place] [address] [address] Jul, [address] [address] Jul, Dysuria R30.0 and Mixed hyperlipidemia E 78.[address] [address] 30 Jun, 2017 Major depressive disorder, recurrent epi sode, moderate F33.1 ; Generalized anxiety disorder F41.1 and Cannabis abuse F12.10 [place] [address] [id number] Jun, [place] [address] 15 Jun, 2017 Generalized anxiety disorder F41.1 [...] sustained remission F14.21 and Tobacco use Z72.[address] [address] Jun, Major depressive disorder, recurrent epi sode, moderate F33.1 ; Generalized anxiety disorder F41.1 and Cannabis abuse F12.[address] [address] Jun, [address] [address] Jun, [address] [address] Jun, Major depressive disorder, recurrent epi sode, moderate F33.1 ; Generalized anxiety disorder F41.1 and Cannabis abuse F12.10 [facility] [address] [id number] Mar, Dental examination Z01.20 [facility] [address] [id number] Feb, Dental examination Z01.[address] [address] Mar, [address] [address] Mar, [address] [address] Feb, Hyperlipidemia 272.4 and Prediabetes [address] [address] Feb, Fatigue 780.79 and Hyperlipidemia 272.[address] [address] Feb, Lumbago 724.2 ; Hyperlipidemia 272.4 ; I nsomnia 780.52 and Fatigue 780.79 [facility] [id number] [place] [address] Nov, [facility] [id number] [place] [address] Nov, [facility] [id number] [place] [address] Mar, [facility] [id number] [place] [address] Mar, [facility] [id number] [place] [address] Jan, [facility] [id number] [place] [address] Jan, [facility] [id number] [place] [address] December, [facility] [id number] [place] [address] December, [facility] [id number] [place] [address] Nov, [facility] [id number] [place] [address] Nov, [facility] [id number] [place] [address] Nov, [facility] [id number] [place] [address] Nov, [facility] [id number] [place] [address] Nov, [facility] [id number] [place] [address] Nov, [facility] [id number] [place] [address] Oct, [facility] [id number] [place] [address] Oct, [facility] [address] [facility] [id number] [place] [address] Oct, [facility] [address] [id number] [place] [address] Oct, [facility] [address] [id number] [place] [address] Oct, [facility] [address] [id number] [place] [address] Oct, [facility] [address] [id number] [place] [address] Oct, [facility] [address] [id number] [place] [address] Oct, [facility] [address] [id number] [place] [address] Oct, [facility] [address] [id number] [place] [address] Oct, [facility] [address] [id number] [place] [address] Oct, [facility] [address] [id number] [place] [address] Oct, [facility] [address] [id number] [place] [address] Oct, [facility] [address] [id number] [place] [address] Sep, [facility] [address] [id number] [place] [address] Sep, [facility] [address] [id number] [place] [address] Sep, [facility] [address] [id number] [place] [address] Sep, [facility] [address] [id number] [place] [address] Sep, [facility] [address] [id number] [place] [address] 20 Sep, 2013 [facility] [address] [facility] [id number] [place] [address] 18 Sep, 2013 [facility] [address] [id number] [place] [address] 18 Sep, 2013 [facility] [address] [id number] [place] [address] 14 Sep, 2013 [facility] [address] [id number] [place] [address] 14 Sep, 2013 [facility] [address] [id number] [place] [address] 14 Sep, 2013 [facility] [address] [id number] [place] [address] 14 Sep, 2013 [facility] [address] [id number] [place] [address] 14 Sep, 2013 [facility] [address] [id number] [place] [address] 14 Sep, 2013 [facility] [address] [id number] [place] [address] 13 Sep, 2013 [facility] [address] [id number] [place] [address] Sep, [facility] [address] [id number] [place] [address] Sep, [facility] [address] [id number] [place] [address] Sep, [facility] [address] [id number] [place] [address] Sep, [facility] [address] [id number] [place] [address] 03 Sep, 2013 [facility] [address] [id number] [place] [address] Aug, [facility] [address] [id number] [place] [address] Aug, [facility] [address] [id number] [place] [address] Aug, [facility] [address] [id number] [place] [address] Aug, [facility] [address] [id number] [place] [address] Aug, [facility] [address] [id number] [place] [address] Jul, [facility] [address] [id number] [place] [address] Jul, [facility] [address] [id number] [place] [address] Jul, [facility] [address] [id number] [place] [address] Jul, [facility] [address] [id number] [place] [address] Jul, [facility] [address] [id number] [place] [address] Jul, [facility] [address] [id number] [place] [address] Jul, [facility] [address] [id number] [place] [address] Jul, [facility] [address] [id number] [place] [address] Jul, [facility] [address] [id number] [place] [address] Jun, [facility] [address] [id number] [place] [address] Jun, [facility] [address] [id number] [place] [address] Jun, [facility] [address] [id number] [place] [address] Jun, [facility] [address] [id number] [place] [address] 18 Jun, 2013 [facility] [address] [facility] [id number] [place] [address] Jun, [facility] [address] [id number] [place] [address] Jun, [facility] [address] [id number] [place] [address] Jun, [facility] [address] [id number] [place] [address] Jun, [facility] [address] [id number] [place] [address] Jun, [facility] [address] [id number] [place] [address] May, [facility] [address] [id number] [place] [address] 28 May, 2013 [facility] [address] [id number] [place] [address] May, [facility] [address] [id number] [place] [address] 22 May, 2013 [facility] [address] [id number] [place] [address] 16 May, 2013 [facility] [address] [id number] [place] [address] May, [facility] [address] [id number] [place] [address] May, [facility] [address] [id number] [place] [address] May, [facility] [address] [id number] [place] [address] 11 May, 2013 [facility] [address] [id number] [place] [address] 26 Apr, 2013 [facility] [address] [id number] [place] [address] 16 Apr, 2013 [facility] [address] [id number] [place] [address] Apr, [facility] [address] [id number] [place] [address] Apr, [facility] [address] [id number] [place] [address] Mar, [facility] [address] [id number] [place] [address] Mar, [facility] [address] [id number] [place] [address] Mar, [facility] [address] [id number] [place] [address] Mar, [facility] [address] [id number] [place] [address] Mar, [facility] [address] [id number] [place] [address] Mar, [facility] [address] [id number] [place] [address] Mar, [facility] [address] [id number] [place] [address] Feb, [facility] [address] [id number] [place] [address] Feb, [facility] [address] [id number] [place] [address] Feb, [facility] [address] [id number] [place] [address] Feb, [facility] [address] [id number] [place] [address] Feb, [facility] [address] [id number] [place] [address] Feb, [facility] [address] [id number] [place] [address] Feb, [facility] [address] [id number] [place] [address] Feb, [facility] [address] [facility] [id number] [facility] [place] [address] Feb, [facility] [address] [id number] [facility] [place] [address] Feb, [facility] [address] [id number] [place] [address] Feb, [facility] [address] [id number] [place] [address] Jan, [facility] [address] [facility] [id number] [facility] [place] [address] Jan, [facility] [address] [id number] [place] [address] December, [facility] [address] [id number] [place] [address] December, [facility] [address] [id number] [place] [address] Nov, [facility] [address] [id number] [place] [address] Nov, [facility] [address] [id number] [place] [address] Oct, [facility] [address] [id number] [place] [address] Oct, [facility] [address] [id number] [place] [address] Oct, [facility] [address] [id number] [place] [address] Oct, [facility] [address] [id number] [place] [address] Sep, [facility] [address] [id number] [place] [address] Sep, [facility] [address] [id number] [place] [address] Sep, [facility] [address] [id number] [place] [address] Sep, [facility] [address] [id number] [place] [address] Aug, [facility] [address] [id number] [place] [address] Aug, [facility] [address] [id number] [place] [address] Jul, [facility] [address] [id number] [place] [address] Jul, [facility] [address] [id number] [place] [address] Jul, [facility] [address] [id number] [place] [address] Jul, [facility] [address] [id number] [place] [address] Jul, [facility] [address] [id number] [place] [address] Jul, [facility] [address] [id number] [place] [address] Jun, [facility] [address] [id number] [place] [address] Jun, [facility] [address] [id number] [place] [address] Jun, [facility] [address] [id number] [place] [address] Jun, [facility] [address] [id number] [place] [address] Jun, [facility] [id number] [place] [address] May, [facility] [address] [id number] [place] [address] May, [facility] [address] [id number] [place] [address] May, [facility] [address] [id number] [place] [address] May, [facility] [address] [id number] [place] [address] May, [facility] [address] [id number] [place] [address] May, [facility] [address] [id number] [place] [address] May, [facility] [address] [id number] [place] [address] May, [facility] [address] [id number] [place] [address] Mar, [facility] [address] [id number] [place] [address] Mar, [facility] [address] [id number] [place] [address] Mar, [facility] [address] [id number] [place] [address] Feb, [facility] [address] [id number] [place] [address] Feb, [facility] [address] [id number] [place] [address] Feb, [facility] [address] [id number] [place] [address] Feb, [facility] [address] [id number] [place] [address] Jan, [facility] [address] [id number] [place] [address] Jan, [facility] [address] [id number] [place] [address] Jan, [facility] [address] [id number] [place] [address] December, [facility] [address] [id number] [place] [address] 04 Nov, 2011 [facility] [address] [id number] [place] [address] Oct, [facility] [address] [id number] [place] [address] Oct, [facility] [address] [id number] [place] [address] Oct, [facility] [address] [id number] [place] [address] Oct, [facility] [address] [id number] [place] [address] Aug, [facility] [address] [id number] [place] [address] Aug, [facility] [address] [id number] [place] [address] Aug, [facility] [address] [id number] [place] [address] Aug, [facility] [address] [id number] [place] [address] Aug, [facility] [address] [id number] [place] [address] Aug, [facility] [address] [id number] [place] [address] Aug, [facility] [address] [id number] [place] [address] Aug, [facility] [address] [id number] [place] [address] Jul, [facility] [address] [id number] [place] [address] Jun, [facility] [address] [id number] [place] [address] Jun, [facility] [address] [id number] [place] [address] Jul, [facility] [address] [id number] [place] [address] 22 Jul, 2010 [facility] [address] [facility] [id number] [place] [address] 22 Jul, 2010 [facility] [address] [id number] [place] [address] 14 Jul, 2010 [facility] [address] [id number] [place] [address] 14 Jul, 2010 [facility] [address] [id number] [place] [address] 24 Jun, 2010 [facility] [address] [id number] [place] [address] May, [facility] [address] [id number] [place] [address] Mar, [facility] [address] [id number] [place] [address] Oct, [facility] [address] [id number] [place] [address] Aug, [facility] [address] [id number] [place] [address] 15 Jul, 2009 [facility] [address] [id number] [place] [address] Jul, [facility] [address] [id number] [place] [address] Jun, [facility] [address] [id number] [place] [address] Jun, [facility] [address] [facility] [id number] [place] [address] May, [facility] [address] [id number] [place] [address] May, [facility] [address] [id number] [place] [address] Mar, [facility] [address] [id number] [place] [address] Mar, [facility] [address] [facility] [id number] [place] [address] Oct, IMMUNIZATIONS No Known Immunizations SOCIAL HISTORY [...] replacement L1- L5 - Dr Benito pantoja ([place]) Surgical History appendectomy 1983 Surgical History hysterectomy 1993 Surgical History dilatation and curettage Surgical History heart cath- Dr Shaw [address] Solano bowel and intestines sep2015 Surgical History Dr solano removed skin tag and cyst 2017 Surgical History Colonoscopy and upper GI 04/2019 Surgical History endoscopy 08/13/19 Hospitalization History Hospitalization for surgery only
--- OUTSIDE RECORDS SUMMARY | 2019-11-08 08:42 | XMS REPORT ---
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 Active 45462200 Problem Opioid use disorder, moderate, in sustained remission F11.21 Active 29846195 Problem Tobacco use Z72.0 Active 66220158 8 Problem Cocaine use disorder, moderate, in sustained remission F14.21 Active 35123426 Problem GERD with esophagitis K21.0 Active 088398675 Problem Prediabetes 790.29 Active 6756103 Problem PTSD (post-traumatic stress disorder) F43.10 Active 55559159 Problem Bipolar disorder F31.9 Active 137 07031 Problem Gastroesophageal reflux disease, esophagitis pre sence not specified K21.9 Active 771057654 Problem Menopausal disorder N95.9 Active 351728795 Problem Insomnia, unspecified type G47.00 Act avelina 028034322 Problem Cigarette nicotine dependence without complication F17.210 Active 55792440 Problem Cannabis abuse F12.10 Active 48637 009 Problem Irritable bowel syndrome with diarrhea K58.0 Active 221505217 Problem Acute pain of left shoulder M25.512 Ac tive 13774341 Problem Mixed hyperlipidemia E78.2 Active 018931684 Problem Generalized anxiety disorder F41.1 A ctive 49065819 Problem Arthritis M19.90 Active 5292734 Problem Other chronic pain G89.29 Active 8 9285096 Problem Fibromyalgia M79.7 Active 0798714 05 Problem Perimenopausal vasomotor symptoms N95.1 Active 024984139 ALLERGIES No Information ENCOUNTERS Encounter Location Date Diagnosis [place] [id number] [place] [address] Oct, [facility] [address] [address] 12 Oct, 2019 Acute rhinosinusitis J01.90 ; Generalize d anxiety disorder F41.1 ; Major depressive disorder, recurrent episode, moderate F33.1 ; Gastroesophageal reflux disease, esophagitis presence not specified K21.9 ; Irritable bowel syndrome with diarrhea K58.0 and Mixed hyperlipidemia E78.2 [facility] [address] [facility] [id number] [address] [place] [address] Oct, Viral upper respiratory trac t infection J06.9 [place] [address] [address] 19 Sep, 2019 [place] [address] [address] 14 Sep, 2019 Major depressive disorder, recurrent epi sode, moderate F33.1 ; Generalized anxiety disorder F41.1 ; Irritable bowel syndrome with diarrhea K58.0 and Epigastric abdominal pain R10.13 [facility] [address] [facility] [address] May, Dental examination Z01.20 and Caries K02.9 [place] [address] [address] 08 May, 2019 Right upper quadrant pain R10.11 and Mix ed hyperlipidemia E78.2 [place] [address] [address] Mar, Perimenopausal vasomotor symptoms N95.1 [place] [address] [address] Mar, [place] [address] [address] Mar, [place] [address] [address] Mar, [place] [address] [address] Mar, Perimenopausal vasomotor symptoms N95.1 ; Irritable bowel syndrome with diarrhea K58.0 ; Insomnia, unspecified type G47.00 and Weight gain R63.5 [place] [address] [address] 16 Feb, 2019 [place] [address] [address] Feb, [place] [address] [address] Jan, [place] [address] [address] Jan, Fibromyalgia M79.7 ; Insect bite (nonven omous) of lower back and pelvis, sequela S30.860S ; Bitten or stung by nonvenomous insect and other nonvenomous arthropods, sequela W57.XXXS ; Arthritis M19.90 and Menopausal disorder N95.9 [place] [address] [address] Jan, [place] [address] [address] Jan, Mixed hyperlipidemia E78.2 [place] [address] [address] December, Screening for breast cancer Z12.31 and B reast lump N63.0 [place] [address] [address] December, Chest pain, unspecified type R07.9 [place] [address] [address] December, Chest pain, unspecified type R07.9 ; Gas troesophageal reflux disease, esophagitis presence not specified K21.9 and Left breast lump N63.20 [place] [address] [address] December, [facility] [address] [facility] [id number] [address] [place] [address] December, Suprapubic abdominal pain R1 0.2 and Dysuria R30.0 [facility] [id number] [place] [address] December, [facility] [address] [address] December, Cannabis abuse F12.10 ; Generalized anxi ety disorder F41.1 ; Methamphetamine use disorder, severe, in sustained remission F15.21 ; Alcohol use disorder, mild, in sustained remission F10.11 ; PTSD (post-traumatic stress disorder) F43.10 ; Cocaine use disorder, moderate, in sustained remission F14.21 and Bipolar disorder F31.9 [facility] [address] [address] Nov, Major depressive disorder, recurrent epi sode, moderate F33.1 ; Cannabis abuse F12.10 ; Generalized anxiety disorder F41.1 ; Methamphetamine use disorder, severe, in sustained remission F15.21 ; Alcohol use disorder, mild, in sustained remission F10.11 ; PTSD (post-traumatic stress disorder) F43.10 and Cocaine use disorder, moderate, in sustained remission F14.21 [facility] [id number] [place] [address] Oct, Major depressive disorder, recurrent epi sode, moderate F33.1 ; Cannabis abuse F12.10 ; Generalized anxiety disorder F41.1 ; Methamphetamine use disorder, severe, in sustained remission F15.21 ; Alcohol use disorder, mild, in sustained remission F10.11 ; PTSD (post-traumatic stress disorder) F43.10 and Cocaine use disorder, moderate, in sustained remission F14.21 [facility] [id number] [place] [address] Sep, Major depressive disorder, recurrent epi sode, moderate F33.1 [facility] [address] [facility] [place] [id number] Aug, [facility] [id number] [place] [address] Jul, Dysuria R30.0 [facility] [address] [address] Jul, Major depressive disorder, recurrent epi sode, moderate F33.1 [facility] [address] [address] Jun, Major depressive disorder, recurrent epi sode, moderate F33.1 [place] [address] [address] Jun, Major depressive disorder, recurrent epi sode, moderate F33.1 [place] [address] [address] Jun, Acute pain of left shoulder M25.512 and Cigarette nicotine dependence without complication F17.210 [place] [address] [address] May, [place] [address] [address] May, Cocaine use disorder, moderate, in susta ined remission F14.21 [place] [id number] [place] [address] May, [facility] [address] [facility] [address] May, Dental examination Z01.20 [facility] [address] [facility] [place] [id number] May, Dental examination Z01.20 and Caries K02 .9 [place] [id number] [place] [address] May, Common wart B07.8 [place] [address] [address] May, [place] [address] [address] Apr, Cocaine use disorder, moderate, in susta ined remission F14.21 [place] [id number] [place] [address] 14 Apr, 2018 [facility] [address] [facility] [place] [id number] 13 Apr, 2018 Dental examination Z01.20 [facility] [address] [facility] [place] [id number] 10 Mar, 2018 Encounter for dental exam and cleaning w /o abnormal findings Z01.20 [facility] [address] [address] 07 Mar, 2018 [place] [address] [address] Feb, Cocaine use disorder, moderate, in susta [...] Major depressive disorder, recurrent episode, moderate F33.1 [place] [address] [address] Jan, Cocaine use disorder, moderate, in susta ined remission F14.21 [place] [address] [address] Jan, Cocaine use disorder, moderate, in susta [...] Major depressive disorder, recurrent episode, moderate F33.1 [place] [address] [address] Jan, Dysuria R30.0 and GERD with esophagitis K21.0 [place] [id number] [place] [address] December, Major depressive disorder, recurrent epi sode, moderate F33.1 [facility] [id number] [place] [address] December, [facility] [id number] [place] [address] December, Major depressive disorder, recurrent epi sode, [...] sustained remission F10.11 and Tobacco use Z72.0 [place] [id number] [place] [address] Nov, [facility] [address] [place] [address] [address] Nov, [facility] [address] [address] Nov, Wellness examination Z00.00 ; Encounter for immunization Z23 ; Screening for osteoporosis Z13.820 ; Screening for breast cancer Z12.31 and Left breast lump N63.20 [facility] [address] [facility] [place] [id number] Oct, Dental examination Z01.20 [facility] [id number] [place] [address] Oct, [facility] [address] [address] Oct, [facility] [address] [address] Sep, [facility] [address] [address] Sep, [facility] [address] [address] 14 Sep, 2017 Left otitis media with effusion H65.92 ; Acute suppurative otitis media of right ear without spontaneous rupture of tympanic membrane, recurrence not specified H66.001 ; Dizziness R42 and Fatigue 780.79 [place] [address] [address] Aug, Major depressive disorder, recurrent epi sode, [...] sustained remission F10.11 and Tobacco use Z72.0 [facility] [address] [facility] [id number] [address] [place] [address] Aug, Ingrown right big toenail L6 0.0 [place] [address] [address] Aug, [place] [address] [address] Aug, PTSD (post-traumatic stress disorder) F4 3.10 [place] [address] [address] Aug, Major depressive disorder, recurrent epi sode, moderate F33.1 ; Generalized anxiety disorder F41.1 and Cannabis abuse F12.10 [place] [address] [address] Jul, [place] [address] [address] Jul, [place] [address] [address] Jul, [place] [address] [address] Jul, Major depressive disorder, recurrent epi sode, moderate F33.1 ; Generalized anxiety disorder F41.1 and Cannabis abuse F12.10 [place] [address] [place] [address] Jul, [place] [address] [address] Jul, [place] [address] [address] Jul, Hyperlipidemia 272.4 [place] [address] [place] [address] Jul, PTSD (post-traumatic stress disorder) F4 3.10 [place] [address] [address] Jul, Tobacco use Z72.0 ; Alcohol use [...] anxiety disorder F41.1 and Cannabis abuse F12.10 [place] [address] [address] Jul, [address] [address] Jul, Dysuria R30.0 and Mixed hyperlipidemia E 78.[address] [address] 30 Jun, 2017 Major depressive disorder, recurrent epi sode, moderate F33.1 ; Generalized anxiety disorder F41.1 and Cannabis abuse F12.10 [place] [address] [address] Jun, [place] [address] 15 Jun, 2017 Generalized anxiety disorder F41.1 [...] sustained remission F14.21 and Tobacco use Z72.[address] [address] Jun, Major depressive disorder, recurrent epi sode, moderate F33.1 ; Generalized anxiety disorder F41.1 and Cannabis abuse F12.[address] [address] Jun, [address] [address] Jun, [address] [address] Jun, Major depressive disorder, recurrent epi sode, moderate F33.1 ; Generalized anxiety disorder F41.1 and Cannabis abuse F12.10 [facility] [address] [id number] Mar, Dental examination Z01.20 [facility] [address] [id number] Feb, Dental examination Z01.[address] [address] Mar, [address] [address] Mar, [address] [address] Feb, Hyperlipidemia 272.4 and Prediabetes [address] [address] Feb, Fatigue 780.79 and Hyperlipidemia 272.[address] [address] Feb, Lumbago 724.2 ; Hyperlipidemia 272.4 ; I nsomnia 780.52 and Fatigue 780.79 [facility] [id number] [place] [address] Nov, [facility] [id number] [place] [address] Nov, [facility] [id number] [place] [address] Mar, [facility] [id number] [place] [address] Mar, [facility] [id number] [place] [address] Jan, [facility] [id number] [place] [address] Jan, [facility] [id number] [place] [address] December, [facility] [id number] [place] [address] December, [facility] [id number] [place] [address] Nov, [facility] [id number] [place] [address] Nov, [facility] [id number] [place] [address] Nov, [facility] [id number] [place] [address] Nov, [facility] [id number] [place] [address] Nov, [facility] [id number] [place] [address] Nov, [facility] [id number] [place] [address] Oct, [facility] [id number] [place] [address] Oct, [facility] [address] [facility] [id number] [place] [address] Oct, [facility] [address] [id number] [place] [address] Oct, [facility] [address] [id number] [place] [address] Oct, [facility] [address] [id number] [place] [address] Oct, [facility] [address] [id number] [place] [address] Oct, [facility] [address] [id number] [place] [address] Oct, [facility] [address] [id number] [place] [address] Oct, [facility] [address] [id number] [place] [address] Oct, [facility] [address] [id number] [place] [address] Oct, [facility] [address] [id number] [place] [address] Oct, [facility] [address] [id number] [place] [address] Oct, [facility] [address] [id number] [place] [address] Sep, [facility] [address] [id number] [place] [address] Sep, [facility] [address] [id number] [place] [address] Sep, [facility] [address] [id number] [place] [address] Sep, [facility] [address] [id number] [place] [address] Sep, [facility] [address] [id number] [place] [address] 20 Sep, 2013 [facility] [address] [facility] [id number] [place] [address] 18 Sep, 2013 [facility] [address] [id number] [place] [address] 18 Sep, 2013 [facility] [address] [id number] [place] [address] 14 Sep, 2013 [facility] [address] [id number] [place] [address] 14 Sep, 2013 [facility] [address] [id number] [place] [address] 14 Sep, 2013 [facility] [address] [id number] [place] [address] 14 Sep, 2013 [facility] [address] [id number] [place] [address] 14 Sep, 2013 [facility] [address] [id number] [place] [address] 14 Sep, 2013 [facility] [address] [id number] [place] [address] 13 Sep, 2013 [facility] [address] [id number] [place] [address] Sep, [facility] [address] [id number] [place] [address] Sep, [facility] [address] [id number] [place] [address] Sep, [facility] [address] [id number] [place] [address] Sep, [facility] [address] [id number] [place] [address] 03 Sep, 2013 [facility] [address] [id number] [place] [address] Aug, [facility] [address] [id number] [place] [address] Aug, [facility] [address] [id number] [place] [address] Aug, [facility] [address] [id number] [place] [address] Aug, [facility] [address] [id number] [place] [address] Aug, [facility] [address] [id number] [place] [address] Jul, [facility] [address] [id number] [place] [address] Jul, [facility] [address] [id number] [place] [address] Jul, [facility] [address] [id number] [place] [address] Jul, [facility] [address] [id number] [place] [address] Jul, [facility] [address] [id number] [place] [address] Jul, [facility] [address] [id number] [place] [address] Jul, [facility] [address] [id number] [place] [address] Jul, [facility] [address] [id number] [place] [address] Jul, [facility] [address] [id number] [place] [address] Jun, [facility] [address] [id number] [place] [address] Jun, [facility] [address] [id number] [place] [address] Jun, [facility] [address] [id number] [place] [address] Jun, [facility] [address] [id number] [place] [address] 18 Jun, 2013 [facility] [address] [facility] [id number] [place] [address] Jun, [facility] [address] [id number] [place] [address] Jun, [facility] [address] [id number] [place] [address] Jun, [facility] [address] [id number] [place] [address] Jun, [facility] [address] [id number] [place] [address] Jun, [facility] [address] [id number] [place] [address] May, [facility] [address] [id number] [place] [address] 28 May, 2013 [facility] [address] [id number] [place] [address] May, [facility] [address] [id number] [place] [address] 22 May, 2013 [facility] [address] [id number] [place] [address] 16 May, 2013 [facility] [address] [id number] [place] [address] May, [facility] [address] [id number] [place] [address] May, [facility] [address] [id number] [place] [address] May, [facility] [address] [id number] [place] [address] 11 May, 2013 [facility] [address] [id number] [place] [address] 26 Apr, 2013 [facility] [address] [id number] [place] [address] 16 Apr, 2013 [facility] [address] [id number] [place] [address] Apr, [facility] [address] [id number] [place] [address] Apr, [facility] [address] [id number] [place] [address] Mar, [facility] [address] [id number] [place] [address] Mar, [facility] [address] [id number] [place] [address] Mar, [facility] [address] [id number] [place] [address] Mar, [facility] [address] [id number] [place] [address] Mar, [facility] [address] [id number] [place] [address] Mar, [facility] [address] [id number] [place] [address] Mar, [facility] [address] [id number] [place] [address] Feb, [facility] [address] [id number] [place] [address] Feb, [facility] [address] [id number] [place] [address] Feb, [facility] [address] [id number] [place] [address] Feb, [facility] [address] [id number] [place] [address] Feb, [facility] [address] [id number] [place] [address] Feb, [facility] [address] [id number] [place] [address] Feb, [facility] [address] [id number] [place] [address] Feb, [facility] [address] [facility] [id number] [facility] [place] [address] Feb, [facility] [address] [id number] [facility] [place] [address] Feb, [facility] [address] [id number] [place] [address] Feb, [facility] [address] [id number] [place] [address] Jan, [facility] [address] [facility] [id number] [facility] [place] [address] Jan, [facility] [address] [id number] [place] [address] December, [facility] [address] [id number] [place] [address] December, [facility] [address] [id number] [place] [address] Nov, [facility] [address] [id number] [place] [address] Nov, [facility] [address] [id number] [place] [address] Oct, [facility] [address] [id number] [place] [address] Oct, [facility] [address] [id number] [place] [address] Oct, [facility] [address] [id number] [place] [address] Oct, [facility] [address] [id number] [place] [id number] Sep, [facility] [address] [id number] [place] [address] Sep, [facility] [address] [id number] [place] [address] Sep, [facility] [address] [id number] [place] [address] Sep, [facility] [address] [id number] [place] [address] Aug, [facility] [address] [id number] [place] [address] Aug, [facility] [address] [id number] [place] [address] Jul, [facility] [address] [id number] [place] [address] Jul, [facility] [address] [id number] [place] [address] Jul, [facility] [address] [id number] [place] [address] Jul, [facility] [address] [id number] [place] [address] Jul, [facility] [address] [id number] [place] [address] Jul, [facility] [address] [id number] [place] [address] Jun, [facility] [address] [id number] [place] [address] Jun, [facility] [address] [id number] [place] [address] Jun, [facility] [address] [id number] [place] [address] Jun, [facility] [address] [id number] [place] [address] Jun, [facility] [id number] [place] [address] May, [facility] [address] [id number] [place] [address] May, [facility] [address] [id number] [place] [address] May, [facility] [address] [id number] [place] [address] May, [facility] [address] [id number] [place] [address] May, [facility] [address] [id number] [place] [address] May, [facility] [address] [id number] [place] [address] May, [facility] [address] [id number] [place] [address] May, [facility] [address] [id number] [place] [address] Mar, [facility] [address] [id number] [place] [address] Mar, [facility] [address] [id number] [place] [address] Mar, [facility] [address] [id number] [place] [address] Feb, [facility] [address] [id number] [place] [address] Feb, [facility] [address] [id number] [place] [address] Feb, [facility] [address] [id number] [place] [address] Feb, [facility] [address] [id number] [place] [address] Jan, [facility] [address] [id number] [place] [address] Jan, [facility] [address] [id number] [place] [address] Jan, [facility] [address] [id number] [place] [address] December, [facility] [address] [id number] [place] [id number] 04 Nov, 2011 [facility] [address] [id number] [place] [address] Oct, [facility] [address] [id number] [place] [address] Oct, [facility] [address] [id number] [place] [address] Oct, [facility] [address] [id number] [place] [address] Oct, [facility] [address] [id number] [place] [address] Aug, [facility] [address] [id number] [place] [address] Aug, [facility] [address] [id number] [place] [address] Aug, [facility] [address] [id number] [place] [address] Aug, [facility] [address] [id number] [place] [address] Aug, [facility] [address] [id number] [place] [address] Aug, [facility] [address] [id number] [place] [address] Aug, [facility] [address] [id number] [place] [address] Aug, [facility] [address] [id number] [place] [address] Jul, [facility] [address] [id number] [place] [id number] Jun, [facility] [address] [id number] [place] [address] Jun, [facility] [address] [id number] [place] [address] Jul, [facility] [address] [id number] [place] [id number] 22 Jul, 2010 [facility] [address] [facility] [id number] [place] [address] 22 Jul, 2010 [facility] [address] [id number] [place] [address] 14 Jul, 2010 [facility] [address] [id number] [place] [address] 14 Jul, 2010 [facility] [address] [id number] [place] [address] 24 Jun, 2010 [facility] [address] [id number] [place] [address] May, [facility] [address] [id number] [place] [address] Mar, [facility] [address] [id number] [place] [address] Oct, [facility] [address] [id number] [place] [address] Aug, [facility] [address] [id number] [place] [id number] 15 Jul, 2009 [facility] [address] [id number] [place] [address] Jul, [facility] [address] [id number] [place] [address] Jun, [facility] [address] [id number] [place] [address] Jun, [facility] [address] [facility] [id number] [place] [address] May, [facility] [address] [id number] [place] [address] May, [facility] [address] [id number] [place] [address] Mar, [facility] [address] [id number] [place] [address] Mar, [facility] [address] [facility] [id number] [place] [address] Oct, IMMUNIZATIONS No Known Immunizations SOCIAL HISTORY [...] replacement L1- L5 - Dr Benito pantoja ([place]) Surgical History appendectomy 1983 Surgical History hysterectomy 1993 Surgical History dilatation and curettage Surgical History heart cath- Dr Shaw [address] Solano bowel and intestines sep2015 Surgical History Dr solano removed skin tag and cyst 2017 Surgical History Colonoscopy and upper GI 04/2019 Surgical History endoscopy 08/13/19 Hospitalization History Hospitalization for surgery only
--- OUTSIDE RECORDS SUMMARY | 2019-11-08 08:43 | XMS REPORT ---
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 Active 67320163 Problem Opioid use disorder, moderate, in sustained remission F11.21 Active 22875143 Problem Tobacco use Z72.0 Active 96256802 8 Problem Cocaine use disorder, moderate, in sustained remission F14.21 Active 02033532 Problem GERD with esophagitis K21.0 Active 859823405 Problem Prediabetes 790.29 Active 4041409 Problem PTSD (post-traumatic stress disorder) F43.10 Active 42586228 Problem Bipolar disorder F31.9 Active 137 08660 Problem Gastroesophageal reflux disease, esophagitis pre sence not specified K21.9 Active 535230844 Problem Menopausal disorder N95.9 Active 526492277 Problem Insomnia, unspecified type G47.00 Act avelina 975792410 Problem Cigarette nicotine dependence without complication F17.210 Active 47358973 Problem Cannabis abuse F12.10 Active 84790 009 Problem Irritable bowel syndrome with diarrhea K58.0 Active 487976512 Problem Acute pain of left shoulder M25.512 Ac tive 52394168 Problem Mixed hyperlipidemia E78.2 Active 749044520 Problem Generalized anxiety disorder F41.1 A ctive 80199817 Problem Arthritis M19.90 Active 2269982 Problem Other chronic pain G89.29 Active 8 0770351 Problem Fibromyalgia M79.7 Active 9423182 05 Problem Perimenopausal vasomotor symptoms N95.1 Active 998313799 ALLERGIES No Information ENCOUNTERS Encounter Location Date Diagnosis [place] [address] [address] Oct, [place] [address] [address] 19 Sep, 2019 [place] [address] [address] 14 Sep, 2019 Major depressive disorder, recurrent epi sode, moderate F33.1 ; Generalized anxiety disorder F41.1 ; Irritable bowel syndrome with diarrhea K58.0 and Epigastric abdominal pain R10.13 [facility] [address] [facility] [address] 24 May, 2019 Dental examination Z01.20 and Caries K02.9 [place] [address] [address] 08 May, 2019 Right upper quadrant pain R10.11 and Mix ed hyperlipidemia E78.2 [place] [address] [address] Mar, Perimenopausal vasomotor symptoms N95.1 [place] [address] [address] Mar, [place] [address] [address] Mar, [place] [address] [address] Mar, [place] [address] [address] Mar, Perimenopausal vasomotor symptoms N95.1 ; Irritable bowel syndrome with diarrhea K58.0 ; Insomnia, unspecified type G47.00 and Weight gain R63.5 [place] [address] [address] Feb, [place] [address] [address] Feb, [place] [address] [address] Jan, [place] [address] [address] Jan, Fibromyalgia M79.7 ; Insect bite (nonven omous) of lower back and pelvis, sequela S30.860S ; Bitten or stung by nonvenomous insect and other nonvenomous arthropods, sequela W57.XXXS ; Arthritis M19.90 and Menopausal disorder N95.9 [place] [address] [address] Jan, [place] [address] [address] Jan, Mixed hyperlipidemia E78.[address] [address] December, Screening for breast cancer Z12.31 and B reast lump N63.0 [place] [address] [address] December, Chest pain, unspecified type R07.[address] [address] December, Chest pain, unspecified type R07.9 ; Gas troesophageal reflux disease, esophagitis presence not specified K21.9 and Left breast lump N63.20 [place] [address] [address] December, [facility] [address] [facility] [id number] [address] [address] December, Suprapubic abdominal pain R1 0.2 and Dysuria R30.[address] [address] December, [place] [address] [address] December, Cannabis abuse F12.10 ; Generalized anxi ety disorder F41.1 ; Methamphetamine use disorder, severe, in sustained remission F15.21 ; Alcohol use disorder, mild, in sustained remission F10.11 ; PTSD (post-traumatic stress disorder) F43.10 ; Cocaine use disorder, moderate, in sustained remission F14.21 and Bipolar disorder F31.9 [facility] [address] [place] [id number] Nov, Major depressive disorder, recurrent epi sode, moderate F33.1 ; Cannabis abuse F12.10 ; Generalized anxiety disorder F41.1 ; Methamphetamine use disorder, severe, in sustained remission F15.21 ; Alcohol use disorder, mild, in sustained remission F10.11 ; PTSD (post-traumatic stress disorder) F43.10 and Cocaine use disorder, moderate, in sustained remission F14.21 [place] [address] [address] Oct, Major depressive disorder, recurrent epi sode, moderate F33.1 ; Cannabis abuse F12.10 ; Generalized anxiety disorder F41.1 ; Methamphetamine use disorder, severe, in sustained remission F15.21 ; Alcohol use disorder, mild, in sustained remission F10.11 ; PTSD (post-traumatic stress disorder) F43.10 and Cocaine use disorder, moderate, in sustained remission F14.21 [place] [address] [address] Sep, Major depressive disorder, recurrent epi sode, moderate F33.1 [facility] [address] [facility] [place] [id number] Aug, [facility] [address] [address] Jul, Dysuria R30.0 [facility] [address] [address] Jul, Major depressive disorder, recurrent epi sode, moderate F33.1 [facility] [address] [address] Jun, Major depressive disorder, recurrent epi sode, moderate F33.1 [facility] [address] [address] Jun, Major depressive disorder, recurrent epi sode, moderate F33.1 [facility] [address] [address] 09 Jun, 2018 Acute pain of left shoulder M25.512 and Cigarette nicotine dependence without complication F17.210 [facility] [address] [address] May, [facility] [address] [address] May, Cocaine use disorder, moderate, in susta ined remission F14.21 [facility] [address] [address] May, [facility] [address] [facility] [address] May, Dental examination Z01.20 [facility] [address] [id number] May, Dental examination Z01.20 and Caries K02 .9 [facility] [address] [address] May, Common wart B07.8 [place] [address] [address] May, [facility] [address] [address] 27 Apr, 2018 Cocaine use disorder, moderate, in susta ined remission F14.21 [facility] [address] [address] 14 Apr, 2018 [facility] [address] [id number] 13 Apr, 2018 Dental examination Z01.20 [facility] [address] [id number] Mar, Encounter for dental exam and cleaning w /o abnormal findings Z01.20 [facility] [address] [address] Mar, [place] [address] [address] Feb, Cocaine use disorder, moderate, in susta [...] disorder, recurrent episode, moderate F33.1 [place] [address] [address] Jan, Cocaine use disorder, moderate, in susta ined remission F14.21 [place] [address] [address] Jan, Cocaine use disorder, moderate, in susta [...] Major depressive disorder, recurrent episode, moderate F33.[address] [address] Jan, Dysuria R30.0 and GERD with esophagitis K21.0 [place] [address] [address] December, Major depressive disorder, recurrent epi sode, moderate F33.1 [place] [address] [address] December, [address] [address] December, Major depressive disorder, recurrent epi sode, [...] remission F10.11 and Tobacco use Z72.0 [facility] [address] [place] [id number] [place] [address] Nov, [facility] [address] [place] [id number] [address] Nov, [facility] [address] [address] Nov, Wellness examination Z00.00 ; Encounter for immunization Z23 ; Screening for osteoporosis Z13.820 ; Screening for breast cancer Z12.31 and Left breast lump N63.20 [facility] [address] [facility] [place] [id number] Oct, Dental examination Z01.[address] [address] Oct, [place] [address] [address] 08 Oct, [address] [address] 16 Sep, 2017 [place] [address] [address] 15 Sep, [address] [address] 14 Sep, 2017 Left otitis media with effusion H65.92 ; Acute suppurative otitis media of right ear without spontaneous rupture of tympanic membrane, recurrence not specified H66.001 ; Dizziness R42 and Fatigue 780.[address] [address] Aug, Major depressive disorder, recurrent epi sode, [...] [facility] [address] [facility] [id number] [address] [place] [address] Aug, Ingrown right big toenail L6 0.0 [facility] [address] [address] Aug, [place] [address] [address] Aug, PTSD (post-traumatic stress disorder) F4 3.10 [place] [address] [address] Aug, Major depressive disorder, recurrent epi sode, moderate F33.1 ; Generalized anxiety disorder F41.1 and Cannabis abuse F12.10 [facility] [address] [address] Jul, [facility] [address] [address] Jul, [place] [address] [address] Jul, [place] [address] [address] Jul, Major depressive disorder, recurrent epi sode, moderate F33.1 ; Generalized anxiety disorder F41.1 and Cannabis abuse F12.10 [place] [address] [address] Jul, [place] [address] [address] Jul, [place] [address] [address] Jul, Hyperlipidemia 272.4 [place] [address] [address] Jul, PTSD (post-traumatic stress disorder) F4 3.10 [place] [address] [address] Jul, Tobacco use Z72.0 ; Alcohol use [...] anxiety disorder F41.1 and Cannabis abuse F12.10 [place] [address] [address] Jul, [address] [address] Jul, Dysuria R30.0 and Mixed hyperlipidemia E 78.[address] [address] Jun, Major depressive disorder, recurrent epi sode, moderate F33.1 ; Generalized anxiety disorder F41.1 and Cannabis abuse F12.[address] [address] Jun, [address] [address] Jun, Generalized anxiety disorder F41.1 ; Blayne [...] sustained remission F14.21 and Tobacco use Z72.[address] [address] Jun, Major depressive disorder, recurrent epi sode, moderate F33.1 ; Generalized anxiety disorder F41.1 and Cannabis abuse F12.10 [facility] [address] [address] Jun, [facility] [address] [address] Jun, [facility] [address] [address] Jun, Major depressive disorder, recurrent epi sode, moderate F33.1 ; Generalized anxiety disorder F41.1 and Cannabis abuse F12.10 [facility] [address] [id number] Mar, Dental examination Z01.20 [facility] [address] [id number] Feb, Dental examination Z01.20 [place] [address] [address] Mar, [place] [address] [address] Mar, [facility] [address] [address] Feb, Hyperlipidemia 272.4 and Prediabetes 790 .29 [place] [address] [address] Feb, Fatigue 780.79 and Hyperlipidemia 272.[address] [address] Feb, Lumbago 724.2 ; Hyperlipidemia 272.4 ; I nsomnia 780.52 and Fatigue 780.79 [place] [address] [address] Nov, [place] [address] [address] Nov, [facility] [address] [address] Mar, [place] [address] [address] Mar, [facility] [place] [facility] [address] [id number] [place] [address] Jan, [facility] [place] [facility] [address] [id number] [place] [address] Jan, [facility] [place] [facility] [address] [id number] [place] [address] December, [facility] [place] [facility] [address] [id number] [place] [address] December, [facility] [place] [facility] [address] [facility] [id number] [place] [address] Nov, [facility] [place] [facility] [address] [id number] [place] [address] Nov, [facility] [place] [facility] [address] [id number] [place] [address] Nov, [facility] [place] [facility] [address] [id number] [place] [address] Nov, [facility] [place] [facility] [address] [id number] [place] [address] Nov, [facility] [place] [facility] [address] [id number] [place] [address] Nov, [facility] [place] [facility] [address] [id number] [place] [address] Oct, [facility] [place] [facility] [address] [id number] [place] [address] Oct, [facility] [place] [facility] [address] [id number] [place] [address] Oct, [facility] [place] [facility] [address] [id number] [place] [address] Oct, [facility] [place] [facility] [address] [id number] [place] [address] Oct, [facility] [place] [facility] [address] [id number] [place] [address] Oct, [facility] [place] [facility] [address] [id number] [place] [address] Oct, [facility] [place] [facility] [address] [facility] [id number] [facility] [address] Oct, [facility] [place] [facility] [address] [facility] [id number] [facility] [address] Oct, [facility] [place] [facility] [address] [id number] [facility] [address] Oct, [facility] [place] [facility] [address] [id number] [facility] [address] Oct, [facility] [place] [facility] [address] [facility] [id number] [facility] [address] Oct, [facility] [place] [facility] [address] [id number] [facility] [address] Oct, [facility] [place] [facility] [address] [id number] [place] [address] Sep, [facility] [place] [facility] [address] [id number] [place] [address] 24 Sep, 2013 [facility] [place] [facility] [address] [id number] [facility] [address] Sep, [facility] [place] [facility] [address] [id number] [place] [address] Sep, [facility] [place] [facility] [address] [id number] [place] [address] Sep, [facility] [place] [facility] [address] [id number] [place] [address] Sep, [facility] [place] [facility] [address] [id number] [place] [address] 18 Sep, 2013 [facility] [place] [facility] [address] [id number] [place] [address] 18 Sep, 2013 [facility] [place] [facility] [address] [id number] [place] [address] 14 Sep, 2013 [facility] [place] [facility] [address] [id number] [place] [address] 14 Sep, 2013 [facility] [place] [facility] [address] [id number] [place] [address] 14 Sep, 2013 [facility] [place] [facility] [address] [id number] [place] [address] 14 Sep, 2013 [facility] [place] [facility] [address] [id number] [place] [address] 14 Sep, 2013 [facility] [place] [facility] [address] [id number] [place] [address] 14 Sep, 2013 [facility] [place] [facility] [address] [id number] [place] [address] 13 Sep, 2013 [facility] [place] [facility] [address] [id number] [place] [address] Sep, [facility] [place] [facility] [address] [id number] [place] [address] Sep, [facility] [place] [facility] [address] [id number] [place] [address] Sep, [facility] [place] [facility] [address] [id number] [place] [address] Sep, [facility] [place] [facility] [address] [id number] [place] [address] Sep, [facility] [place] [facility] [address] [id number] [place] [address] Aug, [facility] [place] [facility] [address] [id number] [place] [address] Aug, [facility] [place] [facility] [address] [id number] [place] [address] Aug, [facility] [place] [facility] [address] [id number] [place] [address] Aug, [facility] [place] [facility] [address] [id number] [place] [address] Aug, [facility] [place] [facility] [address] [id number] [place] [address] Jul, [facility] [place] [facility] [address] [id number] [place] [address] 31 Jul, 2012 [facility] [place] [facility] [address] [id number] [place] [address] Jul, [facility] [place] [facility] [address] [id number] [place] [address] Jul, [facility] [place] [facility] [address] [id number] [place] [address] Jul, [facility] [place] [facility] [address] [id number] [place] [address] Jul, [facility] [place] [facility] [address] [id number] [place] [address] Jul, [facility] [place] [facility] [address] [id number] [place] [address] Jul, [facility] [place] [facility] [address] [id number] [place] [address] Jul, [facility] [place] [facility] [address] [id number] [place] [address] Jun, [facility] [place] [facility] [address] [id number] [place] [address] Jun, [facility] [place] [facility] [address] [id number] [place] [address] Jun, [facility] [place] [facility] [address] [id number] [place] [address] Jun, [facility] [place] [facility] [address] [id number] [place] [address] Jun, [facility] [place] [facility] [address] [id number] [place] [address] Jun, [facility] [place] [facility] [address] [place] [id number] [place] [address] Jun, [facility] [place] [facility] [address] [id number] [place] [address] Jun, [facility] [place] [facility] [address] [id number] [place] [address] Jun, [facility] [place] [facility] [address] [id number] [place] [address] Jun, [facility] [place] [facility] [address] [id number] [place] [address] May, [facility] [place] [facility] [address] [id number] [place] [address] May, [facility] [place] [facility] [address] [id number] [place] [address] May, [facility] [place] [facility] [address] [facility] [id number] [place] [address] May, [facility] [place] [facility] [address] [id number] [place] [address] May, [facility] [place] [facility] [address] [id number] [place] [address] May, [facility] [place] [facility] [address] [id number] [place] [address] May, [facility] [place] [facility] [address] [id number] [place] [address] May, [facility] [place] [facility] [address] [id number] [place] [address] May, [facility] [place] [facility] [address] [id number] [place] [address] 26 Apr, 2012 [facility] [place] [facility] [address] [id number] [place] [address] 16 Apr, 2013 [facility] [place] [facility] [address] [id number] [place] [address] 12 Apr, 2012 [facility] [place] [facility] [address] [id number] [place] [address] 06 Apr, 2013 [facility] [place] [facility] [address] [id number] [place] [address] 30 Mar, 2013 [facility] [place] [facility] [address] [id number] [place] [address] Mar, [facility] [place] [facility] [address] [id number] [place] [address] Mar, [facility] [place] [facility] [address] [id number] [facility] [address] Mar, [facility] [place] [facility] [address] [facility] [id number] [facility] [address] Mar, [facility] [place] [facility] [address] [id number] [facility] [address] Mar, [facility] [place] [facility] [address] [id number] [place] [address] Mar, [facility] [place] [facility] [address] [facility] [id number] [place] [address] Feb, [facility] [place] [facility] [address] [id number] [place] [address] Feb, [facility] [place] [facility] [address] [id number] [facility] [address] Feb, [facility] [place] [facility] [address] [id number] [facility] [place] [address] Feb, [facility] [place] [facility] [address] [id number] [facility] [place] [address] Feb, [facility] [place] [facility] [address] [id number] [facility] [place] [address] Feb, [facility] [place] [facility] [address] [id number] [place] [address] Feb, [facility] [place] [facility] [address] [id number] [place] [address] Feb, [facility] [place] [facility] [address] [facility] [id number] [facility] [place] [address] Feb, [facility] [place] [facility] [address] [id number] [place] [address] Feb, [facility] [place] [facility] [address] [id number] [place] [address] Feb, [facility] [place] [facility] [address] [id number] [facility] [place] [address] Jan, [facility] [place] [facility] [address] [id number] [place] [address] Jan, [facility] [address] [id number] [place] [address] December, [facility] [place] [facility] [address] [id number] [place] [address] December, [facility] [place] [facility] [address] [id number] [place] [address] Nov, [facility] [place] [facility] [address] [id number] [place] [address] Nov, [facility] [place] [facility] [address] [id number] [place] [address] Oct, [facility] [place] [facility] [address] [id number] [place] [address] Oct, [facility] [place] [facility] [address] [id number] [place] [address] Oct, [facility] [place] [facility] [address] [id number] [place] [address] Oct, [facility] [place] [facility] [address] [id number] [place] [address] Sep, [facility] [place] [facility] [address] [id number] [place] [address] Sep, [facility] [place] [facility] [address] [id number] [place] [address] Sep, [facility] [place] [facility] [address] [id number] [place] [address] Sep, [facility] [place] [facility] [address] [id number] [place] [address] Aug, [facility] [place] [facility] [address] [id number] [place] [address] Aug, [facility] [place] [facility] [address] [id number] [place] [address] Jul, [facility] [place] [facility] [address] [id number] [place] [address] Jul, [facility] [place] [facility] [address] [id number] [place] [address] Jul, [facility] [place] [facility] [address] [id number] [place] [address] Jul, [facility] [place] [facility] [address] [id number] [place] [address] Jul, [facility] [place] [facility] [address] [id number] [place] [address] Jul, [facility] [place] [facility] [address] [id number] [place] [address] Jun, [facility] [id number] [place] [address] Jun, [facility] [address] [id number] [place] [address] Jun, [facility] [address] [id number] [place] [address] Jun, [facility] [id number] [place] [address] Jun, [facility] [address] [id number] [place] [address] May, [facility] [address] [id number] [place] [address] May, [facility] [address] [id number] [place] [address] May, [facility] [address] [id number] [place] [address] May, [facility] [id number] [place] [address] May, [facility] [id number] [place] [address] May, [facility] [address] [id number] [place] [address] May, [facility] [id number] [place] [address] May, [facility] [id number] [facility] [place] [address] Mar, [facility] [address] [id number] [place] [address] Mar, [facility] [id number] [place] [address] Mar, [facility] [id number] [place] [address] Feb, [facility] [address] [id number] [place] [address] Feb, [facility] [address] [id number] [place] [address] Feb, [facility] [id number] [place] [address] Feb, [facility] [address] [id number] [place] [address] Jan, [facility] [id number] [place] [address] Jan, [facility] [address] [id number] [place] [address] Jan, [facility] [address] [id number] [place] [address] December, [facility] [id number] [place] [address] Nov, [facility] [id number] [place] [address] Oct, [facility] [address] [id number] [place] [address] Oct, [facility] [address] [id number] [place] [address] Oct, [facility] [id number] [place] [address] Oct, [facility] [id number] [place] [address] Aug, [facility] [id number] [place] [address] Aug, [facility] [address] [id number] [place] [address] Aug, [facility] [address] [id number] [place] [address] Aug, [facility] [id number] [place] [address] Aug, [facility] [id number] [place] [address] Aug, [facility] [address] [id number] [place] [address] Aug, [facility] [address] [id number] [place] [address] Aug, [facility] [address] [id number] [place] [address] Jul, [facility] [address] [id number] [place] [address] Jun, [facility] [address] [id number] [place] [address] Jun, [facility] [id number] [place] [address] 31 Jul, 2010 [facility] [address] [id number] [place] [address] Jul, [facility] [id number] [place] [address] Jul, [facility] [id number] [place] [address] 14 Jul, 2010 [facility] [address] [id number] [place] [address] 14 Jul, 2010 [facility] [address] [id number] [place] [address] Jun, [facility] [id number] [place] [address] May, [facility] [id number] [place] [address] Mar, [facility] [id number] [place] [address] Oct, [facility] [id number] [place] [address] Aug, [facility] [id number] [place] [address] Jul, [facility] [id number] [place] [address] Jul, [facility] [id number] [place] [address] Jun, [facility] [id number] [place] [address] Jun, [facility] [id number] [place] [address] May, [facility] [id number] [place] [address] May, [facility] [id number] [place] [address] Mar, [facility] [id number] [place] [address] Mar, [facility] [id number] [place] [address] 10 Oct, 2008 IMMUNIZATIONS No Known Immunizations [...] replacement L1- L5 - Dr Benito pantoja ([place]) Surgical History appendectomy 1983 Surgical History hysterectomy 1993 Surgical History dilatation and curettage Surgical History heart cath- Dr Shaw [address] Solano bowel and intestines seperated [address] solano removed skin tag and cyst 2017 Surgical History Colonoscopy and upper GI 04/2019 Surgical History endoscopy 08/13/19 Hospitalization History Hospitalization for surgery only
--- OUTSIDE RECORDS SUMMARY | 2019-11-08 08:43 | XMS REPORT ---
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 Active 74174459 Problem Opioid use disorder, moderate, in sustained remission F11.21 Active 74614495 Problem Tobacco use Z72.0 Active 88904997 8 Problem Cocaine use disorder, moderate, in sustained remission F14.21 Active 29626799 Problem GERD with esophagitis K21.0 Active 537019498 Problem Prediabetes 790.29 Active 5285730 Problem PTSD (post-traumatic stress disorder) F43.10 Active 96245427 Problem Bipolar disorder F31.9 Active 137 72822 Problem Gastroesophageal reflux disease, esophagitis pre sence not specified K21.9 Active 734202626 Problem Menopausal disorder N95.9 Active 889099328 Problem Insomnia, unspecified type G47.00 Act avelina 683834987 Problem Cigarette nicotine dependence without complication F17.210 Active 89760729 Problem Cannabis abuse F12.10 Active 66771 009 Problem Irritable bowel syndrome with diarrhea K58.0 Active 328127936 Problem Acute pain of left shoulder M25.512 Ac tive 36944701 Problem Mixed hyperlipidemia E78.2 Active 606604159 Problem Generalized anxiety disorder F41.1 A ctive 78662241 Problem Arthritis M19.90 Active 1628666 Problem Other chronic pain G89.29 Active 8 7888290 Problem Fibromyalgia M79.7 Active 6742024 05 Problem Perimenopausal vasomotor symptoms N95.1 Active 286101507 ALLERGIES No Information ENCOUNTERS Encounter Location Date Diagnosis [place] [address] [address] Oct, [place] [address] [address] 19 Sep, 2019 [place] [address] [address] 14 Sep, 2019 Major depressive disorder, recurrent epi sode, moderate F33.1 ; Generalized anxiety disorder F41.1 ; Irritable bowel syndrome with diarrhea K58.0 and Epigastric abdominal pain R10.13 [facility] [address] [id number] [address] 24 May, 2019 Dental examination Z01.20 and Caries K02.9 [place] [address] [address] 08 May, 2019 Right upper quadrant pain R10.11 and Mix ed hyperlipidemia E78.2 [place] [address] [address] Mar, Perimenopausal vasomotor symptoms N95.1 [place] [address] [address] Mar, [place] [address] [address] Mar, [place] [address] [address] Mar, [place] [address] [address] Mar, Perimenopausal vasomotor symptoms N95.1 ; Irritable bowel syndrome with diarrhea K58.0 ; Insomnia, unspecified type G47.00 and Weight gain R63.5 [place] [address] [address] Feb, [place] [address] [address] Feb, [place] [address] [address] Jan, [place] [address] [address] Jan, Fibromyalgia M79.7 ; Insect bite (nonven omous) of lower back and pelvis, sequela S30.860S ; Bitten or stung by nonvenomous insect and other nonvenomous arthropods, sequela W57.XXXS ; Arthritis M19.90 and Menopausal disorder N95.9 [place] [address] [address] Jan, [place] [address] [address] Jan, Mixed hyperlipidemia E78.[address] [address] December, Screening for breast cancer Z12.31 and B reast lump N63.0 [place] [address] [address] December, Chest pain, unspecified type R07.[address] [address] December, Chest pain, unspecified type R07.9 ; Gas troesophageal reflux disease, esophagitis presence not specified K21.9 and Left breast lump N63.20 [place] [address] [address] December, [facility] [address] [facility] [id number] [place] [address] December, Suprapubic abdominal pain R1 0.2 and Dysuria R30.[address] [address] December, [place] [address] [address] December, Cannabis abuse F12.10 ; Generalized anxi ety disorder F41.1 ; Methamphetamine use disorder, severe, in sustained remission F15.21 ; Alcohol use disorder, mild, in sustained remission F10.11 ; PTSD (post-traumatic stress disorder) F43.10 ; Cocaine use disorder, moderate, in sustained remission F14.21 and Bipolar disorder F31.9 [facility] [address] [place] [id number] Nov, Major depressive disorder, recurrent epi sode, moderate F33.1 ; Cannabis abuse F12.10 ; Generalized anxiety disorder F41.1 ; Methamphetamine use disorder, severe, in sustained remission F15.21 ; Alcohol use disorder, mild, in sustained remission F10.11 ; PTSD (post-traumatic stress disorder) F43.10 and Cocaine use disorder, moderate, in sustained remission F14.21 [place] [address] [address] Oct, Major depressive disorder, recurrent epi sode, moderate F33.1 ; Cannabis abuse F12.10 ; Generalized anxiety disorder F41.1 ; Methamphetamine use disorder, severe, in sustained remission F15.21 ; Alcohol use disorder, mild, in sustained remission F10.11 ; PTSD (post-traumatic stress disorder) F43.10 and Cocaine use disorder, moderate, in sustained remission F14.21 [place] [address] [address] Sep, Major depressive disorder, recurrent epi sode, moderate F33.1 [facility] [address] [id number] [place] [id number] Aug, [facility] [address] [address] Jul, Dysuria R30.0 [facility] [address] [address] Jul, Major depressive disorder, recurrent epi sode, moderate F33.1 [facility] [address] [address] Jun, Major depressive disorder, recurrent epi sode, moderate F33.1 [facility] [address] [address] Jun, Major depressive disorder, recurrent epi sode, moderate F33.1 [facility] [address] [address] 09 Jun, 2018 Acute pain of left shoulder M25.512 and Cigarette nicotine dependence without complication F17.210 [facility] [address] [address] May, [facility] [address] [address] May, Cocaine use disorder, moderate, in susta ined remission F14.21 [facility] [address] [address] May, [facility] [address] [id number] [address] May, Dental examination Z01.20 [facility] [address] [id number] May, Dental examination Z01.20 and Caries K02 .9 [facility] [address] [address] May, Common wart B07.8 [place] [address] [address] May, [facility] [address] [address] 27 Apr, 2018 Cocaine use disorder, moderate, in susta ined remission F14.21 [facility] [address] [address] 14 Apr, 2018 [facility] [address] [id number] 13 Apr, 2018 Dental examination Z01.20 [facility] [address] [id number] Mar, Encounter for dental exam and cleaning w /o abnormal findings Z01.20 [facility] [address] [address] Mar, [place] [address] [address] Feb, Cocaine use disorder, moderate, in susta [...] Major depressive disorder, recurrent episode, moderate F33.1 [place] [address] [address] Jan, Cocaine use disorder, moderate, in susta ined remission F14.21 [place] [address] [address] Jan, Cocaine use disorder, moderate, in susta [...] Major depressive disorder, recurrent episode, moderate F33.[address] [address] Jan, Dysuria R30.0 and GERD with esophagitis K21.0 [place] [address] [address] December, Major depressive disorder, recurrent epi sode, moderate F33.1 [place] [address] [address] December, [address] [address] December, Major depressive disorder, recurrent epi sode, [...] sustained remission F10.11 and Tobacco use Z72.0 [facility] [address] [place] [id number] [place] [address] Nov, [facility] [address] [place] [id number] [address] Nov, [facility] [address] [address] Nov, Wellness examination Z00.00 ; Encounter for immunization Z23 ; Screening for osteoporosis Z13.820 ; Screening for breast cancer Z12.31 and Left breast lump N63.20 [facility] [address] [facility] [place] [id number] Oct, Dental examination Z01.[address] [address] Oct, [place] [address] [address] 08 Oct, [address] [address] 16 Sep, 2017 [place] [address] [address] 15 Sep, [address] [address] 14 Sep, 2017 Left otitis media with effusion H65.92 ; Acute suppurative otitis media of right ear without spontaneous rupture of tympanic membrane, recurrence not specified H66.001 ; Dizziness R42 and Fatigue 780.[address] [address] Aug, Major depressive disorder, recurrent epi sode, [...] remission F10.11 and Tobacco use Z72.0 [facility] [address] [facility] [id number] [address] [place] [address] Aug, Ingrown right big toenail L6 0.0 [facility] [address] [address] Aug, [place] [address] [address] Aug, PTSD (post-traumatic stress disorder) F4 3.10 [place] [address] [address] Aug, Major depressive disorder, recurrent epi sode, moderate F33.1 ; Generalized anxiety disorder F41.1 and Cannabis abuse F12.10 [facility] [address] [address] Jul, [facility] [address] [address] Jul, [place] [address] [address] Jul, [place] [address] [address] Jul, Major depressive disorder, recurrent epi sode, moderate F33.1 ; Generalized anxiety disorder F41.1 and Cannabis abuse F12.10 [place] [address] [address] Jul, [place] [address] [address] Jul, [place] [address] [address] Jul, Hyperlipidemia 272.4 [place] [address] [address] Jul, PTSD (post-traumatic stress disorder) F4 3.10 [place] [address] [address] Jul, Tobacco use Z72.0 ; Alcohol use [...] anxiety disorder F41.1 and Cannabis abuse F12.10 [place] [address] [address] Jul, [address] [address] Jul, Dysuria R30.0 and Mixed hyperlipidemia E 78.[address] [address] Jun, Major depressive disorder, recurrent epi sode, moderate F33.1 ; Generalized anxiety disorder F41.1 and Cannabis abuse F12.[address] [address] Jun, [address] [address] Jun, Generalized anxiety disorder F41.1 ; Blayne [...] sustained remission F14.21 and Tobacco use Z72.[address] [address] Jun, Major depressive disorder, recurrent epi sode, moderate F33.1 ; Generalized anxiety disorder F41.1 and Cannabis abuse F12.10 [facility] [address] [address] Jun, [facility] [address] [address] Jun, [facility] [address] [address] Jun, Major depressive disorder, recurrent epi sode, moderate F33.1 ; Generalized anxiety disorder F41.1 and Cannabis abuse F12.10 [facility] [address] [id number] Mar, Dental examination Z01.20 [facility] [address] [id number] Feb, Dental examination Z01.20 [place] [address] [address] Mar, [place] [address] [address] Mar, [facility] [address] [address] Feb, Hyperlipidemia 272.4 and Prediabetes 790 .29 [place] [address] [address] Feb, Fatigue 780.79 and Hyperlipidemia 272.[address] [address] Feb, Lumbago 724.2 ; Hyperlipidemia 272.4 ; I nsomnia 780.52 and Fatigue 780.79 [place] [address] [address] Nov, [place] [address] [address] Nov, [facility] [address] [address] Mar, [place] [address] [address] Mar, [facility] [address] [id number] [place] [address] Jan, [facility] [address] [id number] [place] [address] Jan, [facility] [address] [id number] [place] [address] December, [facility] [address] [id number] [place] [address] December, [facility] [address] [facility] [id number] [place] [address] Nov, [facility] [address] [id number] [place] [address] Nov, [facility] [address] [id number] [place] [address] Nov, [facility] [address] [id number] [place] [address] Nov, [facility] [address] [id number] [place] [address] Nov, [facility] [address] [id number] [place] [address] Nov, [facility] [address] [id number] [place] [address] Oct, [facility] [address] [id number] [place] [address] Oct, [facility] [address] [id number] [place] [address] Oct, [facility] [address] [id number] [place] [address] Oct, [facility] [address] [id number] [place] [address] Oct, [facility] [address] [id number] [place] [address] Oct, [facility] [address] [id number] [place] [address] Oct, [facility] [address] [facility] [id number] [facility] [place] [address] Oct, [facility] [address] [facility] [id number] [facility] [place] [address] Oct, [facility] [address] [id number] [facility] [place] [address] Oct, [facility] [address] [id number] [facility] [place] [address] Oct, [facility] [address] [facility] [id number] [facility] [place] [address] Oct, [facility] [address] [id number] [facility] [place] [address] Oct, [facility] [address] [id number] [place] [address] Sep, [facility] [address] [id number] [place] [address] 24 Sep, 2013 [facility] [address] [id number] [facility] [place] [address] Sep, [facility] [address] [id number] [place] [address] Sep, [facility] [address] [id number] [place] [address] Sep, [facility] [address] [id number] [place] [address] Sep, [facility] [address] [id number] [place] [address] 18 Sep, 2013 [facility] [address] [id number] [place] [address] 18 Sep, 2013 [facility] [address] [id number] [place] [address] 14 Sep, 2013 [facility] [address] [id number] [place] [address] 14 Sep, 2013 [facility] [address] [id number] [place] [address] 14 Sep, 2013 [facility] [address] [id number] [place] [address] 14 Sep, 2013 [facility] [address] [id number] [place] [address] 14 Sep, 2013 [facility] [address] [id number] [place] [address] 14 Sep, 2013 [facility] [address] [id number] [place] [address] 13 Sep, 2013 [facility] [address] [id number] [place] [address] Sep, [facility] [address] [id number] [place] [address] Sep, [facility] [address] [id number] [place] [address] Sep, [facility] [address] [id number] [place] [address] Sep, [facility] [address] [id number] [place] [address] Sep, [facility] [address] [id number] [place] [address] Aug, [facility] [address] [id number] [place] [address] Aug, [facility] [address] [id number] [place] [address] Aug, [facility] [address] [id number] [place] [address] Aug, [facility] [address] [id number] [place] [address] Aug, [facility] [address] [id number] [place] [address] Jul, [facility] [address] [id number] [place] [address] 31 Jul, 2012 [facility] [address] [id number] [place] [address] Jul, [facility] [address] [id number] [place] [address] Jul, [facility] [address] [id number] [place] [address] Jul, [facility] [address] [id number] [place] [address] Jul, [facility] [address] [id number] [place] [address] Jul, [facility] [address] [id number] [place] [address] Jul, [facility] [address] [id number] [place] [address] Jul, [facility] [address] [id number] [place] [address] Jun, [facility] [address] [id number] [place] [address] Jun, [facility] [address] [id number] [place] [address] Jun, [facility] [address] [id number] [place] [address] Jun, [facility] [address] [id number] [place] [address] Jun, [facility] [address] [id number] [place] [address] Jun, [facility] [address] [id number] [place] [address] Jun, [facility] [address] [id number] [place] [address] Jun, [facility] [address] [id number] [place] [address] Jun, [facility] [address] [id number] [place] [address] Jun, [facility] [address] [id number] [place] [address] May, [facility] [address] [id number] [place] [address] May, [facility] [address] [id number] [place] [address] May, [facility] [address] [facility] [id number] [place] [address] May, [facility] [address] [id number] [place] [address] May, [facility] [address] [id number] [place] [address] May, [facility] [address] [id number] [place] [address] May, [facility] [address] [id number] [place] [address] May, [facility] [address] [id number] [place] [address] May, [facility] [address] [id number] [place] [address] 26 Apr, 2012 [facility] [address] [id number] [place] [address] 16 Apr, 2013 [facility] [address] [id number] [place] [address] 12 Apr, 2012 [facility] [address] [id number] [place] [address] 06 Apr, 2013 [facility] [address] [id number] [place] [address] 30 Mar, 2013 [facility] [address] [id number] [place] [address] Mar, [facility] [address] [id number] [place] [address] Mar, [facility] [place] [facility] [address] [id number] [facility] [place] [address] Mar, [facility] [place] [facility] [address] [facility] [id number] [facility] [place] [address] Mar, [facility] [place] [facility] [address] [facility] [id number] [facility] [place] [address] Mar, [facility] [place] [facility] [address] [facility] [id number] [place] [address] Mar, [facility] [place] [facility] [address] [facility] [id number] [place] [address] Feb, [facility] [place] [facility] [address] [facility] [id number] [place] [address] Feb, [facility] [place] [facility] [address] [facility] [id number] [facility] [place] [address] Feb, [facility] [place] [facility] [address] [facility] [id number] [facility] [place] [address] Feb, [facility] [place] [facility] [address] [facility] [id number] [facility] [place] [address] Feb, [facility] [place] [facility] [address] [facility] [id number] [facility] [place] [address] Feb, [facility] [place] [facility] [address] [facility] [id number] [place] [address] Feb, [facility] [place] [facility] [address] [facility] [id number] [place] [address] Feb, [facility] [place] [facility] [address] [facility] [id number] [facility] [place] [address] Feb, [facility] [place] [facility] [address] [facility] [id number] [place] [address] Feb, [facility] [place] [facility] [address] [facility] [id number] [place] [address] Feb, [facility] [place] [facility] [address] [facility] [id number] [facility] [place] [address] Jan, [facility] [place] [facility] [address] [facility] [id number] [place] [address] Jan, [facility] [address] [id number] [place] [address] December, [facility] [place] [facility] [address] [id number] [place] [address] December, [facility] [place] [facility] [address] [facility] [id number] [place] [address] Nov, [facility] [place] [facility] [address] [facility] [id number] [place] [address] Nov, [facility] [place] [facility] [address] [facility] [id number] [place] [address] Oct, [facility] [address] [id number] [place] [address] Oct, [facility] [address] [facility] [id number] [place] [address] Oct, [facility] [address] [facility] [id number] [place] [address] Oct, [facility] [address] [facility] [id number] [place] [address] Sep, [facility] [address] [facility] [id number] [place] [address] Sep, [facility] [address] [facility] [id number] [place] [address] Sep, [facility] [address] [facility] [id number] [place] [address] Sep, [facility] [address] [facility] [id number] [place] [address] Aug, [facility] [address] [facility] [id number] [place] [address] Aug, [facility] [address] [id number] [place] [address] Jul, [facility] [address] [id number] [place] [address] Jul, [facility] [address] [id number] [place] [address] Jul, [facility] [address] [id number] [place] [address] Jul, [facility] [address] [id number] [place] [address] Jul, [facility] [address] [id number] [place] [address] Jul, [facility] [address] [facility] [id number] [place] [address] Jun, [facility] [address] [facility] [id number] [place] [address] Jun, [facility] [address] [id number] [place] [address] Jun, [facility] [address] [id number] [place] [address] Jun, [facility] [address] [facility] [id number] [place] [address] Jun, [facility] [address] [facility] [id number] [place] [address] May, [facility] [address] [id number] [place] [address] May, [facility] [address] [id number] [place] [address] May, [facility] [address] [facility] [id number] [place] [address] May, [facility] [address] [id number] [place] [address] May, [facility] [address] [id number] [place] [address] May, [facility] [address] [id number] [place] [address] May, [facility] [address] [facility] [id number] [place] [address] May, [facility] [address] [facility] [id number] [facility] [place] [address] Mar, [facility] [address] [facility] [id number] [place] [address] Mar, [facility] [address] [id number] [place] [address] Mar, [facility] [address] [id number] [place] [address] Feb, [facility] [address] [id number] [place] [address] Feb, [facility] [address] [facility] [id number] [place] [address] Feb, [facility] [address] [id number] [place] [address] Feb, [facility] [address] [id number] [place] [address] Jan, [facility] [address] [id number] [place] [address] Jan, [facility] [address] [id number] [place] [address] Jan, [facility] [address] [id number] [place] [address] December, [facility] [address] [id number] [place] [address] Nov, [facility] [address] [id number] [place] [address] Oct, [facility] [address] [id number] [place] [address] Oct, [facility] [address] [id number] [place] [address] Oct, [facility] [address] [id number] [place] [address] Oct, [facility] [address] [id number] [place] [address] Aug, [facility] [address] [id number] [place] [address] Aug, [facility] [address] [id number] [place] [address] Aug, [facility] [address] [id number] [place] [address] Aug, [facility] [address] [id number] [place] [address] Aug, [facility] [address] [id number] [place] [address] Aug, [facility] [address] [id number] [place] [address] Aug, [facility] [address] [id number] [place] [address] Aug, [facility] [address] [id number] [place] [address] Jul, [facility] [address] [id number] [place] [address] Jun, [facility] [address] [id number] [place] [address] Jun, [facility] [address] [id number] [place] [address] 31 Jul, 2010 [facility] [address] [id number] [place] [address] Jul, [facility] [address] [id number] [place] [address] Jul, [facility] [address] [id number] [place] [address] 14 Jul, 2010 [facility] [address] [id number] [place] [address] 14 Jul, 2010 [facility] [address] [id number] [place] [address] Jun, [facility] [address] [facility] [id number] [place] [address] May, [facility] [address] [facility] [id number] [place] [address] Mar, [facility] [address] [facility] [id number] [place] [address] Oct, [facility] [id number] [place] [address] Aug, [facility] [id number] [place] [address] Jul, [facility] [id number] [place] [address] Jul, [facility] [address] [facility] [id number] [place] [address] Jun, [facility] [id number] [place] [address] Jun, [facility] [address] [facility] [id number] [place] [address] May, [facility] [id number] [place] [address] May, [facility] [id number] [place] [address] Mar, [facility] [id number] [place] [address] Mar, [facility] [id number] [place] [address] 10 Oct, 2008 IMMUNIZATIONS No Known Immunizations [...] replacement L1- L5 - Dr Benito pantoja ([place]) Surgical History appendectomy 1983 Surgical History hysterectomy 1993 Surgical History dilatation and curettage Surgical History heart cath- Dr Shaw [address] Solano bowel and intestines seperated [address] solano removed skin tag and cyst 2017 Surgical History Colonoscopy and upper GI 04/2019 Surgical History endoscopy 08/13/19 Hospitalization History Hospitalization for surgery only
--- OUTSIDE RECORDS SUMMARY | 2019-11-08 08:43 | XMS REPORT ---
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 Active 65162668 Problem Opioid use disorder, moderate, in sustained remission F11.21 Active 34634393 Problem Tobacco use Z72.0 Active 46254030 8 Problem Cocaine use disorder, moderate, in sustained remission F14.21 Active 46980067 Problem GERD with esophagitis K21.0 Active 699943058 Problem Prediabetes 790.29 Active 9667795 Problem PTSD (post-traumatic stress disorder) F43.10 Active 66624899 Problem Bipolar disorder F31.9 Active 137 83409 Problem Gastroesophageal reflux disease, esophagitis pre sence not specified K21.9 Active 370650825 Problem Menopausal disorder N95.9 Active 908192094 Problem Insomnia, unspecified type G47.00 Act avelina 918803505 Problem Cigarette nicotine dependence without complication F17.210 Active 43194535 Problem Cannabis abuse F12.10 Active 86351 009 Problem Irritable bowel syndrome with diarrhea K58.0 Active 569978858 Problem Acute pain of left shoulder M25.512 Ac tive 82796997 Problem Mixed hyperlipidemia E78.2 Active 481067079 Problem Generalized anxiety disorder F41.1 A ctive 23364040 Problem Arthritis M19.90 Active 0718530 Problem Other chronic pain G89.29 Active 8 2516106 Problem Fibromyalgia M79.7 Active 2186910 05 Problem Perimenopausal vasomotor symptoms N95.1 Active 967467853 ALLERGIES No Information ENCOUNTERS Encounter Location Date Diagnosis [place] [address] [address] Oct, [place] [address] [address] 19 Sep, 2019 [place] [address] [address] 14 Sep, 2019 Major depressive disorder, recurrent epi sode, moderate F33.1 ; Generalized anxiety disorder F41.1 ; Irritable bowel syndrome with diarrhea K58.0 and Epigastric abdominal pain R10.13 [facility] [address] [facility] [address] 24 May, 2019 Dental examination Z01.20 and Caries K02.9 [place] [address] [address] 08 May, 2019 Right upper quadrant pain R10.11 and Mix ed hyperlipidemia E78.2 [place] [address] [address] Mar, Perimenopausal vasomotor symptoms N95.1 [place] [address] [address] Mar, [place] [address] [address] Mar, [place] [address] [address] Mar, [place] [address] [address] Mar, Perimenopausal vasomotor symptoms N95.1 ; Irritable bowel syndrome with diarrhea K58.0 ; Insomnia, unspecified type G47.00 and Weight gain R63.5 [place] [address] [address] Feb, [place] [address] [address] Feb, [place] [address] [address] Jan, [place] [address] [address] Jan, Fibromyalgia M79.7 ; Insect bite (nonven omous) of lower back and pelvis, sequela S30.860S ; Bitten or stung by nonvenomous insect and other nonvenomous arthropods, sequela W57.XXXS ; Arthritis M19.90 and Menopausal disorder N95.9 [place] [address] [address] Jan, [place] [address] [address] Jan, Mixed hyperlipidemia E78.[address] [address] December, Screening for breast cancer Z12.31 and B reast lump N63.0 [place] [address] [address] December, Chest pain, unspecified type R07.[address] [address] December, Chest pain, unspecified type R07.9 ; Gas troesophageal reflux disease, esophagitis presence not specified K21.9 and Left breast lump N63.20 [place] [address] [address] December, [facility] [address] [facility] [id number] 100[place] [address] December, Suprapubic abdominal pain R1 0.2 and Dysuria R30.[address] [address] December, [place] [address] [address] December, Cannabis abuse F12.10 ; Generalized anxi ety disorder F41.1 ; Methamphetamine use disorder, severe, in sustained remission F15.21 ; Alcohol use disorder, mild, in sustained remission F10.11 ; PTSD (post-traumatic stress disorder) F43.10 ; Cocaine use disorder, moderate, in sustained remission F14.21 and Bipolar disorder F31.9 [facility] [address] [place] [id number] Nov, Major depressive disorder, recurrent epi sode, moderate F33.1 ; Cannabis abuse F12.10 ; Generalized anxiety disorder F41.1 ; Methamphetamine use disorder, severe, in sustained remission F15.21 ; Alcohol use disorder, mild, in sustained remission F10.11 ; PTSD (post-traumatic stress disorder) F43.10 and Cocaine use disorder, moderate, in sustained remission F14.21 [place] [address] [address] Oct, Major depressive disorder, recurrent epi sode, moderate F33.1 ; Cannabis abuse F12.10 ; Generalized anxiety disorder F41.1 ; Methamphetamine use disorder, severe, in sustained remission F15.21 ; Alcohol use disorder, mild, in sustained remission F10.11 ; PTSD (post-traumatic stress disorder) F43.10 and Cocaine use disorder, moderate, in sustained remission F14.21 [place] [address] [address] Sep, Major depressive disorder, recurrent epi sode, moderate F33.1 [facility] [address] [facility] [place] [id number] Aug, [facility] [address] [address] Jul, Dysuria R30.0 [facility] [address] [address] Jul, Major depressive disorder, recurrent epi sode, moderate F33.1 [facility] [address] [address] Jun, Major depressive disorder, recurrent epi sode, moderate F33.1 [facility] [address] [address] Jun, Major depressive disorder, recurrent epi sode, moderate F33.1 [facility] [address] [address] 09 Jun, 2018 Acute pain of left shoulder M25.512 and Cigarette nicotine dependence without complication F17.210 [facility] [address] [address] May, [facility] [address] [address] May, Cocaine use disorder, moderate, in susta ined remission F14.21 [facility] [address] [address] May, [facility] [address] [facility] [address] May, Dental examination Z01.20 [facility] [address] [id number] May, Dental examination Z01.20 and Caries K02 .9 [facility] [address] [address] May, Common wart B07.8 [place] [address] [address] May, [facility] [address] [address] 27 Apr, 2018 Cocaine use disorder, moderate, in susta ined remission F14.21 [facility] [address] [address] 14 Apr, 2018 [facility] [address] [id number] 13 Apr, 2018 Dental examination Z01.20 [facility] [address] [id number] Mar, Encounter for dental exam and cleaning w /o abnormal findings Z01.20 [facility] [address] [address] Mar, [place] [address] [address] Feb, Cocaine use disorder, moderate, in susta [...] disorder, recurrent episode, moderate F33.1 [place] [address] [address] Jan, Cocaine use disorder, moderate, in susta ined remission F14.21 [place] [address] [address] Jan, Cocaine use disorder, moderate, in susta [...] Major depressive disorder, recurrent episode, moderate F33.[address] [address] Jan, Dysuria R30.0 and GERD with esophagitis K21.0 [place] [address] [address] December, Major depressive disorder, recurrent epi sode, moderate F33.1 [place] [address] [address] December, [address] [address] December, Major depressive disorder, recurrent epi sode, [...] sustained remission F10.11 and Tobacco use Z72.0 [facility] [address] [place] [id number] [place] [address] Nov, [facility] [address] [place] [address] [address] Nov, [facility] [address] [address] Nov, Wellness examination Z00.00 ; Encounter for immunization Z23 ; Screening for osteoporosis Z13.820 ; Screening for breast cancer Z12.31 and Left breast lump N63.20 [facility] [address] [facility] [place] [id number] Oct, Dental examination Z01.[address] [address] Oct, [place] [address] [address] 08 Oct, [address] [address] 16 Sep, 2017 [place] [address] [address] 15 Sep, [address] [address] 14 Sep, 2017 Left otitis media with effusion H65.92 ; Acute suppurative otitis media of right ear without spontaneous rupture of tympanic membrane, recurrence not specified H66.001 ; Dizziness R42 and Fatigue 780.[address] [address] Aug, Major depressive disorder, recurrent epi sode, [...] F10.11 and Tobacco use Z72.0 [facility] [address] [facility] [id number] [address] [place] [address] Aug, Ingrown right big toenail L6 0.0 [facility] [address] [address] Aug, [place] [address] [address] Aug, PTSD (post-traumatic stress disorder) F4 3.10 [place] [address] [address] Aug, Major depressive disorder, recurrent epi sode, moderate F33.1 ; Generalized anxiety disorder F41.1 and Cannabis abuse F12.10 [facility] [address] [address] Jul, [facility] [address] [address] Jul, [place] [address] [address] Jul, [place] [address] [address] Jul, Major depressive disorder, recurrent epi sode, moderate F33.1 ; Generalized anxiety disorder F41.1 and Cannabis abuse F12.10 [place] [address] [address] Jul, [place] [address] [address] Jul, [place] [address] [address] Jul, Hyperlipidemia 272.4 [place] [address] [address] Jul, PTSD (post-traumatic stress disorder) F4 3.10 [place] [address] [address] Jul, Tobacco use Z72.0 ; Alcohol use [...] F41.1 and Cannabis abuse F12.10 [place] [address] [address] Jul, [address] [address] Jul, Dysuria R30.0 and Mixed hyperlipidemia E 78.[address] [address] Jun, Major depressive disorder, recurrent epi sode, moderate F33.1 ; Generalized anxiety disorder F41.1 and Cannabis abuse F12.[address] [address] Jun, [address] [address] Jun, Generalized anxiety disorder F41.1 ; Blayne [...] sustained remission F14.21 and Tobacco use Z72.[address] [address] Jun, Major depressive disorder, recurrent epi sode, moderate F33.1 ; Generalized anxiety disorder F41.1 and Cannabis abuse F12.10 [facility] [address] [address] Jun, [facility] [address] [address] Jun, [facility] [address] [address] Jun, Major depressive disorder, recurrent epi sode, moderate F33.1 ; Generalized anxiety disorder F41.1 and Cannabis abuse F12.10 [facility] [address] [id number] Mar, Dental examination Z01.20 [facility] [address] [id number] Feb, Dental examination Z01.20 [place] [address] [address] Mar, [place] [address] [address] Mar, [facility] [address] [address] Feb, Hyperlipidemia 272.4 and Prediabetes 790 .29 [place] [address] [address] Feb, Fatigue 780.79 and Hyperlipidemia 272.[address] [address] Feb, Lumbago 724.2 ; Hyperlipidemia 272.4 ; I nsomnia 780.52 and Fatigue 780.79 [place] [address] [address] Nov, [place] [address] [address] Nov, [facility] [address] [address] Mar, [place] [address] [address] Mar, [facility] [place] [facility] [address] [id number] [place] [address] Jan, [facility] [place] [facility] [address] [id number] [place] [address] Jan, [facility] [place] [facility] [address] [id number] [place] [address] December, [facility] [place] [facility] [address] [id number] [place] [address] December, [facility] [place] [facility] [address] [facility] [id number] [place] [address] Nov, [facility] [place] [facility] [address] [id number] [place] [address] Nov, [facility] [place] [facility] [address] [id number] [place] [address] Nov, [facility] [place] [facility] [address] [id number] [place] [address] Nov, [facility] [place] [facility] [address] [id number] [place] [address] Nov, [facility] [place] [facility] [address] [id number] [place] [address] Nov, [facility] [place] [facility] [address] [id number] [place] [address] Oct, [facility] [place] [facility] [address] [id number] [place] [address] Oct, [facility] [place] [facility] [address] [id number] [place] [address] Oct, [facility] [place] [facility] [address] [id number] [place] [address] Oct, [facility] [place] [facility] [address] [id number] [place] [address] Oct, [facility] [place] [facility] [address] [id number] [place] [address] Oct, [facility] [place] [facility] [address] [id number] [place] [address] Oct, [facility] [place] [facility] [address] [facility] [id number] [place] [address] Oct, [facility] [place] [facility] [address] [facility] [id number] [place] [address] Oct, [facility] [place] [facility] [address] [id number] [place] [address] Oct, [facility] [place] [facility] [address] [id number] [place] [address] Oct, [facility] [place] [facility] [address] [facility] [id number] [place] [address] Oct, [facility] [place] [facility] [address] [id number] [place] [address] Oct, [facility] [place] [facility] [address] [id number] [place] [address] Sep, [facility] [place] [facility] [address] [id number] [place] [address] 24 Sep, 2013 [facility] [place] [facility] [address] [id number] [place] [address] Sep, [facility] [place] [facility] [address] [id number] [place] [address] Sep, [facility] [place] [facility] [address] [id number] [place] [address] Sep, [facility] [place] [facility] [address] [id number] [place] [address] Sep, [facility] [place] [facility] [address] [id number] [place] [address] 18 Sep, 2013 [facility] [place] [facility] [address] [id number] [place] [address] 18 Sep, 2013 [facility] [place] [facility] [address] [id number] [place] [address] 14 Sep, 2013 [facility] [place] [facility] [address] [id number] [place] [address] 14 Sep, 2013 [facility] [place] [facility] [address] [id number] [place] [address] 14 Sep, 2013 [facility] [place] [facility] [address] [id number] [place] [address] 14 Sep, 2013 [facility] [place] [facility] [address] [id number] [place] [address] 14 Sep, 2013 [facility] [place] [facility] [address] [id number] [place] [address] 14 Sep, 2013 [facility] [place] [facility] [address] [id number] [place] [address] 13 Sep, 2013 [facility] [place] [facility] [address] [id number] [place] [address] Sep, [facility] [place] [facility] [address] [id number] [place] [address] Sep, [facility] [place] [facility] [address] [id number] [place] [address] Sep, [facility] [place] [facility] [address] [id number] [place] [address] Sep, [facility] [place] [facility] [address] [id number] [place] [address] Sep, [facility] [place] [facility] [address] [id number] [place] [address] Aug, [facility] [place] [facility] [address] [id number] [place] [address] Aug, [facility] [place] [facility] [address] [id number] [place] [address] Aug, [facility] [place] [facility] [address] [id number] [place] [address] Aug, [facility] [place] [facility] [address] [id number] [place] [address] Aug, [facility] [place] [facility] [address] [id number] [place] [address] Jul, [facility] [place] [facility] [address] [id number] [place] [address] 31 Jul, 2012 [facility] [place] [facility] [address] [id number] [place] [address] Jul, [facility] [place] [facility] [address] [id number] [place] [address] Jul, [facility] [place] [facility] [address] [id number] [place] [address] Jul, [facility] [place] [facility] [address] [id number] [place] [address] Jul, [facility] [place] [facility] [address] [id number] [place] [address] Jul, [facility] [place] [facility] [address] [id number] [place] [address] Jul, [facility] [place] [facility] [address] [id number] [place] [address] Jul, [facility] [place] [facility] [address] [id number] [place] [address] Jun, [facility] [place] [facility] [address] [id number] [place] [address] Jun, [facility] [place] [facility] [address] [id number] [place] [address] Jun, [facility] [place] [facility] [address] [id number] [place] [address] Jun, [facility] [place] [facility] [address] [id number] [place] [address] Jun, [facility] [place] [facility] [address] [id number] [place] [address] Jun, [facility] [place] [facility] [address] [place] [id number] [place] [address] Jun, [facility] [place] [facility] [address] [id number] [place] [address] Jun, [facility] [place] [facility] [address] [id number] [place] [address] Jun, [facility] [place] [facility] [address] [id number] [place] [address] Jun, [facility] [place] [facility] [address] [id number] [place] [address] May, [facility] [place] [facility] [address] [id number] [place] [address] May, [facility] [place] [facility] [address] [id number] [place] [address] May, [facility] [place] [facility] [address] [facility] [id number] [place] [address] May, [facility] [place] [facility] [address] [id number] [place] [address] May, [facility] [place] [facility] [address] [id number] [place] [address] May, [facility] [place] [facility] [address] [id number] [place] [address] May, [facility] [place] [facility] [address] [id number] [place] [address] May, [facility] [place] [facility] [address] [id number] [place] [address] May, [facility] [place] [facility] [address] [id number] [place] [address] 26 Apr, 2012 [facility] [place] [facility] [address] [id number] [place] [address] 16 Apr, 2013 [facility] [place] [facility] [address] [id number] [place] [address] 12 Apr, 2012 [facility] [place] [facility] [address] [id number] [place] [address] 06 Apr, 2013 [facility] [place] [facility] [address] [id number] [place] [address] 30 Mar, 2013 [facility] [place] [facility] [address] [id number] [place] [address] Mar, [facility] [place] [facility] [address] [id number] [place] [address] Mar, [facility] [place] [facility] [address] [id number] [place] [address] Mar, [facility] [place] [facility] [address] [facility] [id number] [place] [address] Mar, [facility] [place] [facility] [address] [id number] [place] [address] Mar, [facility] [place] [facility] [address] [id number] [place] [address] Mar, [facility] [place] [facility] [address] [facility] [id number] [place] [address] Feb, [facility] [place] [facility] [address] [id number] [place] [address] Feb, [facility] [place] [facility] [address] [id number] [place] [address] Feb, [facility] [place] [facility] [address] [id number] [place] [address] Feb, [facility] [place] [facility] [address] [id number] [place] [address] Feb, [facility] [place] [facility] [address] [id number] [place] [address] Feb, [facility] [place] [facility] [address] [id number] [place] [address] Feb, [facility] [place] [facility] [address] [id number] [place] [address] Feb, [facility] [place] [facility] [address] [facility] [id number] [place] [address] Feb, [facility] [place] [facility] [address] [id number] [place] [address] Feb, [facility] [place] [facility] [address] [id number] [place] [address] Feb, [facility] [place] [facility] [address] [id number] [place] [address] Jan, [facility] [place] [facility] [address] [id number] [place] [address] Jan, [facility] [address] [id number] [place] [address] December, [facility] [place] [facility] [address] [id number] [place] [address] December, [facility] [place] [facility] [address] [id number] [place] [address] Nov, [facility] [place] [facility] [address] [id number] [place] [address] Nov, [facility] [place] [facility] [address] [id number] [place] [address] Oct, [facility] [place] [facility] [address] [id number] [place] [address] Oct, [facility] [place] [facility] [address] [id number] [place] [address] Oct, [facility] [place] [facility] [address] [id number] [place] [address] Oct, [facility] [place] [facility] [address] [id number] [place] [address] Sep, [facility] [place] [facility] [address] [id number] [place] [address] Sep, [facility] [place] [facility] [address] [id number] [place] [address] Sep, [facility] [place] [facility] [address] [id number] [place] [address] Sep, [facility] [place] [facility] [address] [id number] [place] [address] Aug, [facility] [place] [facility] [address] [id number] [place] [address] Aug, [facility] [place] [facility] [address] [id number] [place] [address] Jul, [facility] [address] [id number] [place] [address] Jul, [facility] [address] [id number] [place] [address] Jul, [facility] [address] [id number] [place] [address] Jul, [facility] [address] [id number] [place] [address] Jul, [facility] [address] [id number] [place] [address] Jul, [facility] [address] [id number] [place] [address] Jun, [facility] [address] [id number] [place] [address] Jun, [facility] [address] [id number] [place] [address] Jun, [facility] [address] [id number] [place] [address] Jun, [facility] [address] [id number] [place] [address] Jun, [facility] [address] [id number] [place] [address] May, [facility] [address] [id number] [place] [address] May, [facility] [address] [id number] [place] [address] May, [facility] [address] [id number] [place] [address] May, [facility] [address] [id number] [place] [address] May, [facility] [address] [id number] [place] [address] May, [facility] [address] [id number] [place] [address] May, [facility] [address] [id number] [place] [address] May, [facility] [address] [id number] [place] [address] Mar, [facility] [address] [id number] [place] [address] Mar, [facility] [address] [id number] [place] [address] Mar, [facility] [address] [id number] [place] [address] Feb, [facility] [address] [id number] [place] [address] Feb, [facility] [address] [id number] [place] [address] Feb, [facility] [address] [id number] [place] [address] Feb, [facility] [address] [id number] [place] [address] Jan, [facility] [address] [id number] [place] [address] Jan, [facility] [address] [id number] [place] [address] Jan, [facility] [address] [id number] [place] [address] December, [facility] [address] [id number] [place] [address] Nov, [facility] [address] [id number] [place] [address] Oct, [facility] [address] [id number] [place] [address] Oct, [facility] [address] [id number] [place] [address] Oct, [facility] [address] [id number] [place] [address] Oct, [facility] [address] [id number] [place] [address] Aug, [facility] [address] [id number] [place] [address] Aug, [facility] [address] [id number] [place] [address] Aug, [facility] [address] [id number] [place] [address] Aug, [facility] [address] [id number] [place] [address] Aug, [facility] [address] [id number] [place] [address] Aug, [facility] [address] [id number] [place] [address] Aug, [facility] [address] [id number] [place] [address] Aug, [facility] [address] [id number] [place] [address] Jul, [facility] [address] [id number] [place] [address] Jun, [facility] [address] [id number] [place] [address] Jun, [facility] [address] [id number] [place] [address] 31 Jul, 2010 [facility] [address] [id number] [place] [address] Jul, [facility] [address] [id number] [place] [address] Jul, [facility] [address] [id number] [place] [address] 14 Jul, 2010 [facility] [address] [id number] [place] [address] 14 Jul, 2010 [facility] [address] [id number] [place] [address] Jun, [facility] [address] [id number] [place] [address] May, [facility] [address] [id number] [place] [address] Mar, [facility] [address] [id number] [place] [address] Oct, [facility] [id number] [place] [address] Aug, [facility] [id number] [place] [address] Jul, [facility] [id number] [place] [address] Jul, [facility] [address] [id number] [place] [address] Jun, [facility] [id number] [place] [address] Jun, [facility] [address] [id number] [place] [address] May, [facility] [id number] [place] [address] May, [facility] [id number] [place] [address] Mar, [facility] [id number] [place] [address] Mar, [facility] [id number] [place] [address] 10 Oct, 2008 IMMUNIZATIONS No Known Immunizations [...] replacement L1- L5 - Dr Benito pantoja ([place]) Surgical History appendectomy 1983 Surgical History hysterectomy 1993 Surgical History dilatation and curettage Surgical History heart cath- Dr Shaw [address] Solano bowel and intestines seperated [address] solano removed skin tag and cyst 2017 Surgical History Colonoscopy and upper GI 04/2019 Surgical History endoscopy 08/13/19 Hospitalization History Hospitalization for surgery only
--- OUTSIDE RECORDS SUMMARY | 2019-11-08 08:44 | XMS REPORT ---
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 Active 61259341 Problem Opioid use disorder, moderate, in sustained remission F11.21 Active 83108145 Problem Tobacco use Z72.0 Active 39496023 8 Problem Cocaine use disorder, moderate, in sustained remission F14.21 Active 78913829 Problem GERD with esophagitis K21.0 Active 159567926 Problem Prediabetes 790.29 Active 6034235 Problem PTSD (post-traumatic stress disorder) F43.10 Active 94160972 Problem Bipolar disorder F31.9 Active 137 57745 Problem Gastroesophageal reflux disease, esophagitis pre sence not specified K21.9 Active 395520376 Problem Menopausal disorder N95.9 Active 977326715 Problem Insomnia, unspecified type G47.00 Act avelina 868370085 Problem Cigarette nicotine dependence without complication F17.210 Active 22493144 Problem Cannabis abuse F12.10 Active 24629 009 Problem Irritable bowel syndrome with diarrhea K58.0 Active 786107996 Problem Acute pain of left shoulder M25.512 Ac tive 88913833 Problem Mixed hyperlipidemia E78.2 Active 378604830 Problem Generalized anxiety disorder F41.1 A ctive 44936673 Problem Arthritis M19.90 Active 1345801 Problem Other chronic pain G89.29 Active 8 7122873 Problem Fibromyalgia M79.7 Active 0499697 05 Problem Perimenopausal vasomotor symptoms N95.1 Active 924245276 ALLERGIES No Information ENCOUNTERS Encounter Location Date Diagnosis [place] [address] [address] Oct, [place] [address] [address] 19 Sep, 2019 [place] [address] [address] 14 Sep, 2019 Major depressive disorder, recurrent epi sode, moderate F33.1 ; Generalized anxiety disorder F41.1 ; Irritable bowel syndrome with diarrhea K58.0 and Epigastric abdominal pain R10.13 [facility] [address] [id number] [address] 24 May, 2019 Dental examination Z01.20 and Caries K02.9 [place] [address] [address] 08 May, 2019 Right upper quadrant pain R10.11 and Mix ed hyperlipidemia E78.2 [place] [address] [address] Mar, Perimenopausal vasomotor symptoms N95.1 [place] [address] [address] Mar, [place] [address] [address] Mar, [place] [address] [address] Mar, [place] [address] [address] Mar, Perimenopausal vasomotor symptoms N95.1 ; Irritable bowel syndrome with diarrhea K58.0 ; Insomnia, unspecified type G47.00 and Weight gain R63.5 [place] [address] [address] Feb, [place] [address] [address] Feb, [place] [address] [address] Jan, [place] [address] [address] Jan, Fibromyalgia M79.7 ; Insect bite (nonven omous) of lower back and pelvis, sequela S30.860S ; Bitten or stung by nonvenomous insect and other nonvenomous arthropods, sequela W57.XXXS ; Arthritis M19.90 and Menopausal disorder N95.9 [place] [address] [address] Jan, [place] [address] [address] Jan, Mixed hyperlipidemia E78.[address] [address] December, Screening for breast cancer Z12.31 and B reast lump N63.0 [place] [address] [address] December, Chest pain, unspecified type R07.[address] [address] December, Chest pain, unspecified type R07.9 ; Gas troesophageal reflux disease, esophagitis presence not specified K21.9 and Left breast lump N63.20 [place] [address] [address] December, [facility] [address] [facility] [id number] [place] [address] December, Suprapubic abdominal pain R1 0.2 and Dysuria R30.[address] [address] December, [place] [address] [address] December, Cannabis abuse F12.10 ; Generalized anxi ety disorder F41.1 ; Methamphetamine use disorder, severe, in sustained remission F15.21 ; Alcohol use disorder, mild, in sustained remission F10.11 ; PTSD (post-traumatic stress disorder) F43.10 ; Cocaine use disorder, moderate, in sustained remission F14.21 and Bipolar disorder F31.9 [facility] [address] [address] Nov, Major depressive disorder, recurrent epi sode, moderate F33.1 ; Cannabis abuse F12.10 ; Generalized anxiety disorder F41.1 ; Methamphetamine use disorder, severe, in sustained remission F15.21 ; Alcohol use disorder, mild, in sustained remission F10.11 ; PTSD (post-traumatic stress disorder) F43.10 and Cocaine use disorder, moderate, in sustained remission F14.21 [place] [address] [address] Oct, Major depressive disorder, recurrent epi sode, moderate F33.1 ; Cannabis abuse F12.10 ; Generalized anxiety disorder F41.1 ; Methamphetamine use disorder, severe, in sustained remission F15.21 ; Alcohol use disorder, mild, in sustained remission F10.11 ; PTSD (post-traumatic stress disorder) F43.10 and Cocaine use disorder, moderate, in sustained remission F14.21 [place] [address] [address] Sep, Major depressive disorder, recurrent epi sode, moderate F33.1 [facility] [id number] [place] [id number] Aug, [facility] [address] [address] Jul, Dysuria R30.0 [facility] [address] [address] Jul, Major depressive disorder, recurrent epi sode, moderate F33.1 [facility] [address] [address] Jun, Major depressive disorder, recurrent epi sode, moderate F33.1 [facility] [address] [address] Jun, Major depressive disorder, recurrent epi sode, moderate F33.1 [facility] [address] [address] 09 Jun, 2018 Acute pain of left shoulder M25.512 and Cigarette nicotine dependence without complication F17.210 [facility] [address] [address] May, [facility] [address] [address] May, Cocaine use disorder, moderate, in susta ined remission F14.21 [facility] [address] [address] May, [facility] [address] [facility] [address] May, Dental examination Z01.20 [facility] [address] [id number] May, Dental examination Z01.20 and Caries K02 .9 [place] [address] [address] May, Common wart B07.8 [place] [address] [address] May, [facility] [address] [address] 27 Apr, 2018 Cocaine use disorder, moderate, in susta ined remission F14.21 [facility] [address] [address] 14 Apr, 2018 [facility] [address] [id number] 13 Apr, 2018 Dental examination Z01.20 [facility] [address] [id number] Mar, Encounter for dental exam and cleaning w /o abnormal findings Z01.20 [facility] [address] [address] Mar, [place] [address] [address] Feb, Cocaine use disorder, moderate, in susta [...] Major depressive disorder, recurrent episode, moderate F33.1 [place] [address] [address] Jan, Cocaine use disorder, moderate, in susta ined remission F14.21 [place] [address] [address] Jan, Cocaine use disorder, moderate, in susta [...] Major depressive disorder, recurrent episode, moderate F33.1 [place] [address] [address] Jan, Dysuria R30.0 and GERD with esophagitis K21.0 [place] [address] [address] December, Major depressive disorder, recurrent epi sode, moderate F33.1 [place] [address] [address] December, [place] [address] [address] December, Major depressive disorder, recurrent epi sode, [...] sustained remission F10.11 and Tobacco use Z72.0 [facility] [id number] [place] [address] Nov, [facility] [address] [place], [place] [id number] [address] Nov, [facility] [address] [address] Nov, Wellness examination Z00.00 ; Encounter for immunization Z23 ; Screening for osteoporosis Z13.820 ; Screening for breast cancer Z12.31 and Left breast lump N63.20 [facility] [address] [facility] [place] [id number] Oct, Dental examination Z01.20 [facility] [address] [address] Oct, [facility] [address] [address] Oct, [facility] [address] [address] 16 Sep, 2017 [place] [address] [address] Sep, [facility] [address] [address] 14 Sep, 2017 Left otitis media with effusion H65.92 ; Acute suppurative otitis media of right ear without spontaneous rupture of tympanic membrane, recurrence not specified H66.001 ; Dizziness R42 and Fatigue 780.79 [facility] [address] [address] Aug, Major depressive disorder, recurrent epi sode, [...] sustained remission F10.11 and Tobacco use Z72.0 [facility] [address] [facility] [id number] [address] [place] [address] Aug, Ingrown right big toenail L6 0.0 [facility] [address] [address] Aug, [place] [address] [address] Aug, PTSD (post-traumatic stress disorder) F4 3.10 [place] [address] [address] Aug, Major depressive disorder, recurrent epi sode, moderate F33.1 ; Generalized anxiety disorder F41.1 and Cannabis abuse F12.10 [facility] [address] [address] Jul, [facility] [address] [address] Jul, [place] [address] [address] Jul, [place] [address] [address] Jul, Major depressive disorder, recurrent epi sode, moderate F33.1 ; Generalized anxiety disorder F41.1 and Cannabis abuse F12.10 [facility] [address] [address] Jul, [place] [address] [address] Jul, [place] [address] [address] Jul, Hyperlipidemia 272.4 [place] [address] [address] Jul, PTSD (post-traumatic stress disorder) F4 3.[address] [address] Jul, Tobacco use Z72.0 ; Alcohol use [...] anxiety disorder F41.1 and Cannabis abuse F12.[address] [address] Jul, [place] [address] Jul, Dysuria R30.0 and Mixed hyperlipidemia E 78.2 [place] [address] Jun, Major depressive disorder, recurrent epi sode, moderate F33.1 ; Generalized anxiety disorder F41.1 and Cannabis abuse F12.[address] [address] Jun, [address] [address] Jun, Generalized anxiety disorder F41.1 ; Blayne [...] sustained remission F14.21 and Tobacco use Z72.[address] [address] 13 Jun, 2017 Major depressive disorder, recurrent epi sode, moderate F33.1 ; Generalized anxiety disorder F41.1 and Cannabis abuse F12.10 [facility] [address] [address] Jun, [facility] [address] [address] Jun, [facility] [address] [address] Jun, Major depressive disorder, recurrent epi sode, moderate F33.1 ; Generalized anxiety disorder F41.1 and Cannabis abuse F12.10 [facility] [address] [id number] Mar, Dental examination Z01.20 [facility] [address] [id number] Feb, Dental examination Z01.20 [place] [address] [address] Mar, [facility] [address] [address] Mar, [facility] [address] [address] Feb, Hyperlipidemia 272.4 and Prediabetes 790 .29 [place] [address] [address] Feb, Fatigue 780.79 and Hyperlipidemia 272.4 [place] [address] [address] Feb, Lumbago 724.2 ; Hyperlipidemia 272.4 ; I nsomnia 780.52 and Fatigue 780.79 [facility] [address] [address] Nov, [facility] [address] [address] Nov, [facility] [address] [address] Mar, [facility] [address] [address] Mar, [facility] [place] [facility] [address] [facility] [id number] [facility] [place] [address] Jan, [facility] [place] [facility] [address] [facility] [id number] [facility] [place] [address] Jan, [facility] [place] [facility] [address] [id number] [facility] [place] [address] December, [facility] [place] [facility] [address] [id number] [place] [address] December, [facility] [place] [facility] [address] [facility] [id number] [place] [address] Nov, [facility] [place] [facility] [address] [id number] [facility] [place] [address] Nov, [facility] [place] [facility] [address] [id number] [place] [address] Nov, [facility] [place] [facility] [address] [id number] [facility] [address] Nov, [facility] [place] [facility] [address] [id number] [facility] [place] [address] Nov, [facility] [place] [facility] [address] [id number] [place] [address] Nov, [facility] [place] [facility] [address] [id number] [place] [address] Oct, [facility] [place] [facility] [address] [id number] [place] [address] Oct, [facility] [place] [facility] [address] [id number] [facility] [place] [address] Oct, [facility] [place] [facility] [address] [id number] [place] [address] Oct, [facility] [place] [facility] [address] [id number] [place] [address] Oct, [facility] [place] [facility] [address] [id number] [place] [address] Oct, [facility] [place] [facility] [address] [id number] [place] [address] 12 Oct, 2013 [facility] [place] [facility] [address] [facility] [id number] [facility] [place] [address] Oct, [facility] [place] [facility] [address] [facility] [id number] [facility] [address] Oct, [facility] [place] [facility] [address] [id number] [facility] [place] [address] Oct, [facility] [place] [facility] [address] [facility] [id number] [facility] [place] [address] Oct, [facility] [place] [facility] [address] [facility] [id number] [facility] [place] [address] Oct, [facility] [place] [facility] [address] [id number] [place] [address] Oct, [facility] [place] [facility] [address] [id number] [place] [address] 24 Sep, 2013 [facility] [place] [facility] [address] [id number] [place] [place] [address] 24 Sep, 2013 [facility] [place] [facility] [address] [id number] [facility] [place] [address] Sep, [facility] [place] [facility] [address] [id number] [place] [address] Sep, [facility] [place] [facility] [address] [id number] [place] [address] Sep, [facility] [place] [facility] [address] [id number] [place] [address] Sep, [facility] [place] [facility] [address] [facility] [id number] [place] [address] 18 Sep, 2013 [facility] [place] [facility] [address] [id number] [place] [address] 18 Sep, 2013 [facility] [place] [facility] [address] [id number] [place] [address] 14 Sep, 2013 [facility] [place] [facility] [address] [id number] [place] [address] 14 Sep, 2013 [facility] [place] [facility] [address] [facility] [id number] [facility] [place] [address] 14 Sep, 2013 [facility] [place] [facility] [address] [facility] [id number] [facility] [place] [address] 14 Sep, 2013 [facility] [place] [facility] [address] [id number] [facility] [place] [address] 14 Sep, 2013 [facility] [place] [facility] [address] [id number] [facility] [place] [address] 14 Sep, 2013 [facility] [place] [facility] [address] [facility] [id number] [facility] [place] [address] Sep, [facility] [place] [facility] [address] [id number] [facility] [address] Sep, [facility] [place] [facility] [address] [id number] [place] [address] Sep, [facility] [place] [facility] [address] [id number] [place] [address] Sep, [facility] [place] [facility] [address] [id number] [facility] [place] [address] Sep, [facility] [place] [facility] [address] [id number] [place] [address] Sep, [facility] [place] [facility] [address] [id number] [place] [address] Aug, [facility] [place] [facility] [address] [id number] [place] [address] Aug, [facility] [place] [facility] [address] [id number] [place] [address] Aug, [facility] [place] [facility] [address] [id number] [place] [address] Aug, [facility] [place] [facility] [address] [id number] [place] [address] Aug, [facility] [place] [facility] [address] [id number] [place] [address] Jul, [facility] [place] [facility] [address] [id number] [place] [address] 31 Jul, 2013 [facility] [place] [facility] [address] [id number] [place] [address] Jul, [facility] [place] [facility] [address] [id number] [place] [address] Jul, [facility] [place] [facility] [address] [id number] [place] [address] Jul, [facility] [place] [facility] [address] [id number] [place] [address] Jul, [facility] [place] [facility] [address] [id number] [place] [address] Jul, [facility] [place] [facility] [address] [id number] [place] [address] Jul, [facility] [place] [facility] [address] [id number] [place] [address] Jul, [facility] [place] [facility] [address] [id number] [place] [address] Jun, [facility] [place] [facility] [address] [id number] [place] [address] Jun, [facility] [place] [facility] [address] [id number] [place] [address] Jun, [facility] [place] [facility] [address] [id number] [place] [address] Jun, [facility] [place] [facility] [address] [id number] [place] [address] Jun, [facility] [place] [facility] [address] [id number] [place] [address] Jun, [facility] [place] [facility] [id number] [place] [address] Jun, [facility] [place] [facility] [address] [id number] [place] [address] Jun, [facility] [place] [facility] [id number] [place] [address] Jun, [facility] [place] [facility] [address] [facility] [id number] [facility] [place] [address] Jun, [facility] [place] [facility] [address] [facility] [id number] [facility] [place] [address] May, [facility] [place] [facility] [address] [facility] [id number] [place] [address] May, [facility] [place] [facility] [address] [facility] [id number] [facility] [place] [address] May, [facility] [place] [facility] [address] [facility] [id number] [facility] [place] [address] May, [facility] [place] [facility] [address] [id number] [place] [address] May, [facility] [place] [facility] [address] [id number] [place] [address] May, [facility] [place] [facility] [address] [id number] [place] [address] May, [facility] [place] [facility] [address] [facility] [id number] [place] [address] May, [facility] [place] [facility] [address] [id number] [place] [address] May, [facility] [place] [facility] [address] [id number] [place] [address] 26 Apr, 2013 [facility] [place] [facility] [address] [id number] [place] [address] 16 Apr, 2013 [facility] [place] [facility] [address] [facility] [id number] [place] [address] 12 Apr, 2013 [facility] [place] [facility] [address] [facility] [id number] [place] [address] 06 Apr, 2013 [facility] [place] [facility] [address] [facility] [id number] [place] [address] 30 Mar, 2013 [facility] [place] [facility] [address] [id number] [place] [address] Mar, [facility] [place] [facility] [address] [id number] [facility] [place] [address] Mar, [facility] [place] [facility] [address] [id number] [facility] [place] [address] Mar, [facility] [place] [facility] [address] [facility] [id number] [facility] [place] [address] Mar, [facility] [place] [facility] [address] [id number] [place] [address] Mar, [facility] [place] [facility] [address] [facility] [id number] [facility] [place] [address] Mar, [facility] [address] [facility] [id number] [facility] [place] [address] Feb, [facility] [address] [id number] [place] [address] Feb, [facility] [address] [id number] [place] [address] Feb, [facility] [address] [id number] [place] [address] Feb, [facility] [address] [id number] [place] [address] Feb, [facility] [address] [id number] [place] [address] Feb, [facility] [address] [id number] [place] [address] Feb, [facility] [address] [id number] [place] [address] Feb, [facility] [address] [facility] [id number] [place] [address] Feb, [facility] [address] [id number] [place] [address] Feb, [facility] [address] [id number] [place] [address] Feb, [facility] [address] [id number] [place] [address] Jan, [facility] [address] [id number] [place] [address] Jan, [facility] [address] [id number] [place] [address] December, [facility] [address] [id number] [place] [address] December, [facility] [address] [id number] [place] [address] Nov, [facility] [address] [id number] [place] [address] Nov, [facility] [address] [id number] [place] [address] Oct, [facility] [address] [id number] [place] [address] Oct, [facility] [address] [id number] [place] [address] Oct, [facility] [address] [id number] [place] [address] Oct, [facility] [address] [id number] [place] [address] Sep, [facility] [address] [id number] [place] [address] Sep, [facility] [address] [id number] [place] [address] Sep, [facility] [address] [id number] [place] [address] Sep, [facility] [address] [id number] [place] [address] Aug, [facility] [address] [id number] [place] [address] Aug, [facility] [address] [id number] [place] [address] Jul, [facility] [address] [id number] [place] [address] Jul, [facility] [address] [id number] [place] [address] Jul, [facility] [address] [id number] [place] [address] Jul, [facility] [address] [id number] [place] [address] Jul, [facility] [address] [id number] [place] [address] Jul, [facility] [address] [id number] [place] [address] Jun, [facility] [address] [id number] [place] [address] Jun, [facility] [address] [id number] [place] [address] Jun, [facility] [address] [id number] [place] [address] Jun, [facility] [address] [id number] [place] [address] Jun, [facility] [address] [id number] [place] [address] May, [facility] [address] [id number] [place] [address] May, [facility] [address] [id number] [place] [address] May, [facility] [address] [id number] [place] [address] May, [facility] [address] [id number] [place] [address] May, [facility] [address] [id number] [place] [address] May, [facility] [address] [id number] [place] [address] May, [facility] [address] [id number] [place] [address] May, [facility] [address] [id number] [place] [address] Mar, [facility] [address] [id number] [place] [address] Mar, [facility] [address] [id number] [place] [address] Mar, [facility] [address] [id number] [place] [address] Feb, [facility] [address] [id number] [place] [address] Feb, [facility] [address] [id number] [place] [address] Feb, [facility] [address] [id number] [place] [address] Feb, [facility] [address] [id number] [place] [address] Jan, [facility] [address] [id number] [place] [address] Jan, [facility] [address] [id number] [place] [address] Jan, [facility] [address] [id number] [place] [address] December, [facility] [address] [id number] [place] [address] Nov, [facility] [address] [id number] [place] [address] Oct, [facility] [id number] [place] [address] Oct, [facility] [address] [id number] [place] [address] Oct, [facility] [address] [id number] [place] [address] Oct, [facility] [address] [id number] [place] [address] Aug, [facility] [address] [id number] [place] [address] Aug, [facility] [address] [id number] [place] [address] Aug, [facility] [address] [id number] [place] [address] Aug, [facility] [address] [id number] [place] [address] Aug, [facility] [address] [id number] [place] [address] Aug, [facility] [address] [id number] [place] [address] Aug, [facility] [address] [id number] [place] [address] Aug, [facility] [address] [id number] [place] [address] Jul, [facility] [address] [id number] [place] [address] Jun, [facility] [address] [id number] [place] [address] Jun, [facility] [address] [id number] [place] [address] 31 Jul, 2010 [facility] [address] [id number] [place] [address] Jul, [facility] [address] [id number] [place] [address] Jul, [facility] [address] [id number] [place] [address] 14 Jul, 2010 [facility] [address] [id number] [place] [address] 14 Jul, 2010 [facility] [address] [id number] [place] [address] Jun, [facility] [address] [id number] [place] [address] May, [facility] [id number] [place] [address] Mar, [facility] [id number] [place] [address] Oct, [facility] [id number] [place] [address] Aug, [facility] [id number] [place] [address] Jul, [facility] [id number] [place] [address] Jul, [facility] [id number] [place] [address] Jun, [facility] [id number] [place] [address] Jun, [facility] [id number] [place] [address] May, [facility] [id number] [place] [address] May, [facility] [id number] [place] [address] Mar, [facility] [id number] [place] [address] Mar, [facility] [id number] [place] [address] Oct, IMMUNIZATIONS No Known Immunizations SOCIAL HISTORY [...] replacement L1- L5 - Dr Benito pantoja ([place]) Surgical History appendectomy 1983 Surgical History hysterectomy 1993 Surgical History dilatation and curettage Surgical History heart cath- Dr Shaw [address] Solano bowel and intestines seperated [address] solano removed skin tag and cyst 2017 Surgical History Colonoscopy and upper GI 04/2019 Surgical History endoscopy 08/13/19 Hospitalization History Hospitalization for surgery only
--- OUTSIDE RECORDS SUMMARY | 2019-11-08 08:44 | XMS REPORT ---
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 Active 90294411 Problem Opioid use disorder, moderate, in sustained remission F11.21 Active 32504823 Problem Tobacco use Z72.0 Active 04557802 8 Problem Cocaine use disorder, moderate, in sustained remission F14.21 Active 62969175 Problem GERD with esophagitis K21.0 Active 074312759 Problem Prediabetes 790.29 Active 7112725 Problem PTSD (post-traumatic stress disorder) F43.10 Active 91758264 Problem Bipolar disorder F31.9 Active 137 60194 Problem Gastroesophageal reflux disease, esophagitis pre sence not specified K21.9 Active 098200001 Problem Menopausal disorder N95.9 Active 175399328 Problem Insomnia, unspecified type G47.00 Act avelina 267957785 Problem Cigarette nicotine dependence without complication F17.210 Active 52604365 Problem Cannabis abuse F12.10 Active 59962 009 Problem Irritable bowel syndrome with diarrhea K58.0 Active 197476000 Problem Acute pain of left shoulder M25.512 Ac tive 82060768 Problem Mixed hyperlipidemia E78.2 Active 006026946 Problem Generalized anxiety disorder F41.1 A ctive 55060661 Problem Arthritis M19.90 Active 1476524 Problem Other chronic pain G89.29 Active 8 8637277 Problem Fibromyalgia M79.7 Active 0359424 05 Problem Perimenopausal vasomotor symptoms N95.1 Active 592066374 ALLERGIES No Information ENCOUNTERS Encounter Location Date Diagnosis [place] [address] [address] Oct, [place] [address] [address] 19 Sep, 2019 [place] [address] [address] 14 Sep, 2019 Major depressive disorder, recurrent epi sode, moderate F33.1 ; Generalized anxiety disorder F41.1 ; Irritable bowel syndrome with diarrhea K58.0 and Epigastric abdominal pain R10.13 [facility] [address] [facility] [address] 24 May, 2019 Dental examination Z01.20 and Caries K02.9 [place] [address] [address] 08 May, 2019 Right upper quadrant pain R10.11 and Mix ed hyperlipidemia E78.2 [place] [address] [address] Mar, Perimenopausal vasomotor symptoms N95.1 [place] [address] [address] Mar, [place] [address] [address] Mar, [place] [address] [address] Mar, [place] [address] [address] Mar, Perimenopausal vasomotor symptoms N95.1 ; Irritable bowel syndrome with diarrhea K58.0 ; Insomnia, unspecified type G47.00 and Weight gain R63.5 [place] [address] [address] Feb, [place] [address] [address] Feb, [place] [address] [address] Jan, [place] [address] [address] Jan, Fibromyalgia M79.7 ; Insect bite (nonven omous) of lower back and pelvis, sequela S30.860S ; Bitten or stung by nonvenomous insect and other nonvenomous arthropods, sequela W57.XXXS ; Arthritis M19.90 and Menopausal disorder N95.9 [place] [address] [address] Jan, [place] [address] [address] Jan, Mixed hyperlipidemia E78.[address] [address] December, Screening for breast cancer Z12.31 and B reast lump N63.0 [place] [address] [address] December, Chest pain, unspecified type R07.[address] [address] December, Chest pain, unspecified type R07.9 ; Gas troesophageal reflux disease, esophagitis presence not specified K21.9 and Left breast lump N63.20 [place] [address] [address] December, [facility] [address] [facility] [id number] [place] [address] December, Suprapubic abdominal pain R1 0.2 and Dysuria R30.[address] [address] December, [place] [address] [address] December, Cannabis abuse F12.10 ; Generalized anxi ety disorder F41.1 ; Methamphetamine use disorder, severe, in sustained remission F15.21 ; Alcohol use disorder, mild, in sustained remission F10.11 ; PTSD (post-traumatic stress disorder) F43.10 ; Cocaine use disorder, moderate, in sustained remission F14.21 and Bipolar disorder F31.9 [facility] [address] [place] [id number] Nov, Major depressive disorder, recurrent epi sode, moderate F33.1 ; Cannabis abuse F12.10 ; Generalized anxiety disorder F41.1 ; Methamphetamine use disorder, severe, in sustained remission F15.21 ; Alcohol use disorder, mild, in sustained remission F10.11 ; PTSD (post-traumatic stress disorder) F43.10 and Cocaine use disorder, moderate, in sustained remission F14.21 [place] [address] [address] Oct, Major depressive disorder, recurrent epi sode, moderate F33.1 ; Cannabis abuse F12.10 ; Generalized anxiety disorder F41.1 ; Methamphetamine use disorder, severe, in sustained remission F15.21 ; Alcohol use disorder, mild, in sustained remission F10.11 ; PTSD (post-traumatic stress disorder) F43.10 and Cocaine use disorder, moderate, in sustained remission F14.21 [place] [address] [address] Sep, Major depressive disorder, recurrent epi sode, moderate F33.1 [facility] [address] [facility] [place] [id number] Aug, [facility] [address] [address] Jul, Dysuria R30.0 [facility] [address] [address] Jul, Major depressive disorder, recurrent epi sode, moderate F33.1 [facility] [address] [address] Jun, Major depressive disorder, recurrent epi sode, moderate F33.1 [facility] [address] [address] Jun, Major depressive disorder, recurrent epi sode, moderate F33.1 [facility] [address] [address] 09 Jun, 2018 Acute pain of left shoulder M25.512 and Cigarette nicotine dependence without complication F17.210 [facility] [address] [address] May, [facility] [address] [address] May, Cocaine use disorder, moderate, in susta ined remission F14.21 [facility] [address] [address] May, [facility] [address] [facility] [address] May, Dental examination Z01.20 [facility] [address] [id number] May, Dental examination Z01.20 and Caries K02 .9 [facility] [address] [address] May, Common wart B07.8 [place] [address] [address] May, [facility] [address] [address] 27 Apr, 2018 Cocaine use disorder, moderate, in susta ined remission F14.21 [facility] [address] [address] 14 Apr, 2018 [facility] [address] [id number] 13 Apr, 2018 Dental examination Z01.20 [facility] [address] [id number] Mar, Encounter for dental exam and cleaning w /o abnormal findings Z01.20 [facility] [address] [address] Mar, [place] [address] [address] Feb, Cocaine use disorder, moderate, in susta [...] Major depressive disorder, recurrent episode, moderate F33.1 [place] [address] [address] Jan, Cocaine use disorder, moderate, in susta ined remission F14.21 [place] [address] [address] Jan, Cocaine use disorder, moderate, in susta [...] Major depressive disorder, recurrent episode, moderate F33.[address] [address] Jan, Dysuria R30.0 and GERD with esophagitis K21.0 [place] [address] [address] December, Major depressive disorder, recurrent epi sode, moderate F33.1 [place] [address] [address] December, [address] [address] December, Major depressive disorder, recurrent epi sode, [...] sustained remission F10.11 and Tobacco use Z72.0 [facility] [address] [place] [id number] [place] [address] Nov, [facility] [address] [place] [id number] [address] Nov, [facility] [address] [address] Nov, Wellness examination Z00.00 ; Encounter for immunization Z23 ; Screening for osteoporosis Z13.820 ; Screening for breast cancer Z12.31 and Left breast lump N63.20 [facility] [address] [facility] [place] [id number] Oct, Dental examination Z01.[address] [address] Oct, [place] [address] [address] 08 Oct, [address] [address] 16 Sep, 2017 [place] [address] [address] 15 Sep, [address] [address] 14 Sep, 2017 Left otitis media with effusion H65.92 ; Acute suppurative otitis media of right ear without spontaneous rupture of tympanic membrane, recurrence not specified H66.001 ; Dizziness R42 and Fatigue 780.[address] [address] Aug, Major depressive disorder, recurrent epi sode, [...] sustained remission F10.11 and Tobacco use Z72.0 [facility] [address] [facility] [id number] [address] [place] [address] Aug, Ingrown right big toenail L6 0.0 [facility] [address] [address] Aug, [place] [address] [address] Aug, PTSD (post-traumatic stress disorder) F4 3.10 [place] [address] [address] Aug, Major depressive disorder, recurrent epi sode, moderate F33.1 ; Generalized anxiety disorder F41.1 and Cannabis abuse F12.10 [facility] [address] [address] Jul, [facility] [address] [address] Jul, [place] [address] [address] Jul, [place] [address] [address] Jul, Major depressive disorder, recurrent epi sode, moderate F33.1 ; Generalized anxiety disorder F41.1 and Cannabis abuse F12.10 [place] [address] [address] Jul, [place] [address] [address] Jul, [place] [address] [address] Jul, Hyperlipidemia 272.4 [place] [address] [address] Jul, PTSD (post-traumatic stress disorder) F4 3.10 [place] [address] [address] Jul, Tobacco use Z72.0 ; Alcohol use [...] anxiety disorder F41.1 and Cannabis abuse F12.10 [place] [address] [address] Jul, [address] [address] Jul, Dysuria R30.0 and Mixed hyperlipidemia E 78.[address] [address] Jun, Major depressive disorder, recurrent epi sode, moderate F33.1 ; Generalized anxiety disorder F41.1 and Cannabis abuse F12.[address] [address] Jun, [address] [address] Jun, Generalized anxiety disorder F41.1 ; Blayne [...] sustained remission F14.21 and Tobacco use Z72.[address] [address] Jun, Major depressive disorder, recurrent epi sode, moderate F33.1 ; Generalized anxiety disorder F41.1 and Cannabis abuse F12.10 [facility] [address] [address] Jun, [facility] [address] [address] Jun, [facility] [address] [address] Jun, Major depressive disorder, recurrent epi sode, moderate F33.1 ; Generalized anxiety disorder F41.1 and Cannabis abuse F12.10 [facility] [address] [id number] Mar, Dental examination Z01.20 [facility] [address] [id number] Feb, Dental examination Z01.20 [place] [address] [address] Mar, [place] [address] [address] Mar, [facility] [address] [address] Feb, Hyperlipidemia 272.4 and Prediabetes 790 .29 [place] [address] [address] Feb, Fatigue 780.79 and Hyperlipidemia 272.[address] [address] Feb, Lumbago 724.2 ; Hyperlipidemia 272.4 ; I nsomnia 780.52 and Fatigue 780.79 [place] [address] [address] Nov, [place] [address] [address] Nov, [facility] [address] [address] Mar, [place] [address] [address] Mar, [facility] [place] [facility] [address] [id number] [place] [address] Jan, [facility] [place] [facility] [address] [id number] [place] [address] Jan, [facility] [place] [facility] [address] [id number] [place] [address] December, [facility] [place] [facility] [address] [id number] [place] [address] December, [facility] [place] [facility] [address] [facility] [id number] [place] [address] Nov, [facility] [place] [facility] [address] [id number] [place] [address] Nov, [facility] [place] [facility] [address] [id number] [place] [address] Nov, [facility] [place] [facility] [address] [id number] [place] [address] Nov, [facility] [place] [facility] [address] [id number] [place] [address] Nov, [facility] [place] [facility] [address] [id number] [place] [address] Nov, [facility] [place] [facility] [address] [id number] [place] [address] Oct, [facility] [place] [facility] [address] [id number] [place] [address] Oct, [facility] [place] [facility] [address] [id number] [place] [address] Oct, [facility] [place] [facility] [address] [id number] [place] [address] Oct, [facility] [place] [facility] [address] [id number] [place] [address] Oct, [facility] [place] [facility] [address] [id number] [place] [address] Oct, [facility] [place] [facility] [address] [id number] [place] [address] Oct, [facility] [place] [facility] [address] [facility] [id number] [place] [address] Oct, [facility] [place] [facility] [address] [facility] [id number] [place] [address] Oct, [facility] [place] [facility] [address] [id number] [place] [address] Oct, [facility] [place] [facility] [address] [id number] [place] [address] Oct, [facility] [place] [facility] [address] [facility] [id number] [place] [address] Oct, [facility] [place] [facility] [address] [id number] [place] [address] Oct, [facility] [place] [facility] [address] [id number] [place] [address] Sep, [facility] [place] [facility] [address] [id number] [place] [address] 24 Sep, 2013 [facility] [place] [facility] [address] [id number] [place] [address] Sep, [facility] [place] [facility] [address] [id number] [place] [address] Sep, [facility] [place] [facility] [address] [id number] [place] [address] Sep, [facility] [place] [facility] [address] [id number] [place] [address] Sep, [facility] [place] [facility] [address] [id number] [place] [address] 18 Sep, 2013 [facility] [place] [facility] [address] [id number] [place] [address] 18 Sep, 2013 [facility] [place] [facility] [address] [id number] [place] [address] 14 Sep, 2013 [facility] [place] [facility] [address] [id number] [place] [address] 14 Sep, 2013 [facility] [place] [facility] [address] [id number] [place] [address] 14 Sep, 2013 [facility] [place] [facility] [address] [id number] [place] [address] 14 Sep, 2013 [facility] [place] [facility] [address] [id number] [place] [address] 14 Sep, 2013 [facility] [place] [facility] [address] [id number] [place] [address] 14 Sep, 2013 [facility] [place] [facility] [address] [id number] [place] [address] 13 Sep, 2013 [facility] [place] [facility] [address] [id number] [place] [address] Sep, [facility] [place] [facility] [address] [id number] [place] [address] Sep, [facility] [place] [facility] [address] [id number] [place] [address] Sep, [facility] [place] [facility] [address] [id number] [place] [address] Sep, [facility] [place] [facility] [address] [id number] [place] [address] Sep, [facility] [place] [facility] [address] [id number] [place] [address] Aug, [facility] [place] [facility] [address] [id number] [place] [address] Aug, [facility] [place] [facility] [address] [id number] [place] [address] Aug, [facility] [place] [facility] [address] [id number] [place] [address] Aug, [facility] [place] [facility] [address] [id number] [place] [address] Aug, [facility] [place] [facility] [address] [id number] [place] [address] Jul, [facility] [place] [facility] [address] [id number] [place] [address] 31 Jul, 2012 [facility] [place] [facility] [address] [id number] [place] [address] Jul, [facility] [place] [facility] [address] [id number] [place] [address] Jul, [facility] [place] [facility] [address] [id number] [place] [address] Jul, [facility] [place] [facility] [address] [id number] [place] [address] Jul, [facility] [place] [facility] [address] [id number] [place] [address] Jul, [facility] [place] [facility] [address] [id number] [place] [address] Jul, [facility] [place] [facility] [address] [id number] [place] [address] Jul, [facility] [place] [facility] [address] [id number] [place] [address] Jun, [facility] [place] [facility] [address] [id number] [place] [address] Jun, [facility] [place] [facility] [address] [id number] [place] [address] Jun, [facility] [place] [facility] [address] [id number] [place] [address] Jun, [facility] [place] [facility] [address] [id number] [place] [address] Jun, [facility] [place] [facility] [address] [id number] [place] [address] Jun, [facility] [place] [facility] [address] [place] [id number] [place] [address] Jun, [facility] [place] [facility] [address] [id number] [place] [address] Jun, [facility] [place] [facility] [address] [id number] [place] [address] Jun, [facility] [place] [facility] [address] [id number] [place] [address] Jun, [facility] [place] [facility] [address] [id number] [place] [address] May, [facility] [place] [facility] [address] [id number] [place] [address] May, [facility] [place] [facility] [address] [id number] [place] [address] May, [facility] [place] [facility] [address] [facility] [id number] [place] [address] May, [facility] [place] [facility] [address] [id number] [place] [address] May, [facility] [place] [facility] [address] [id number] [place] [address] May, [facility] [place] [facility] [address] [id number] [place] [address] May, [facility] [place] [facility] [address] [id number] [place] [address] May, [facility] [place] [facility] [address] [id number] [place] [address] May, [facility] [place] [facility] [address] [id number] [place] [address] 26 Apr, 2012 [facility] [place] [facility] [address] [id number] [place] [address] 16 Apr, 2013 [facility] [place] [facility] [address] [id number] [place] [address] 12 Apr, 2012 [facility] [place] [facility] [address] [id number] [place] [address] 06 Apr, 2013 [facility] [place] [facility] [address] [id number] [place] [address] 30 Mar, 2013 [facility] [place] [facility] [address] [id number] [place] [address] Mar, [facility] [place] [facility] [address] [id number] [place] [address] Mar, [facility] [place] [facility] [address] [id number] [place] [address] Mar, [facility] [place] [facility] [address] [facility] [id number] [place] [address] Mar, [facility] [place] [facility] [address] [id number] [place] [address] Mar, [facility] [place] [facility] [address] [id number] [place] [address] Mar, [facility] [place] [facility] [address] [facility] [id number] [place] [address] Feb, [facility] [place] [facility] [address] [id number] [place] [address] Feb, [facility] [place] [facility] [address] [id number] [place] [address] Feb, [facility] [place] [facility] [address] [id number] [place] [address] Feb, [facility] [place] [facility] [address] [id number] [place] [address] Feb, [facility] [place] [facility] [address] [id number] [place] [address] Feb, [facility] [place] [facility] [address] [id number] [place] [address] Feb, [facility] [place] [facility] [address] [id number] [place] [address] Feb, [facility] [place] [facility] [address] [facility] [id number] [place] [address] Feb, [facility] [place] [facility] [address] [id number] [place] [address] Feb, [facility] [place] [facility] [address] [id number] [place] [address] Feb, [facility] [place] [facility] [address] [id number] [place] [address] Jan, [facility] [place] [facility] [address] [id number] [place] [address] Jan, [facility] [address] [id number] [place] [address] December, [facility] [place] [facility] [address] [id number] [place] [address] December, [facility] [place] [facility] [address] [id number] [place] [address] Nov, [facility] [place] [facility] [address] [id number] [place] [address] Nov, [facility] [place] [facility] [address] [id number] [place] [address] Oct, [facility] [place] [facility] [address] [id number] [place] [address] Oct, [facility] [place] [facility] [address] [id number] [place] [address] Oct, [facility] [place] [facility] [address] [id number] [place] [address] Oct, [facility] [place] [facility] [address] [id number] [place] [address] Sep, [facility] [place] [facility] [address] [id number] [place] [address] Sep, [facility] [place] [facility] [address] [id number] [place] [address] Sep, [facility] [place] [facility] [address] [id number] [place] [address] Sep, [facility] [place] [facility] [address] [id number] [place] [address] Aug, [facility] [place] [facility] [address] [id number] [place] [address] Aug, [facility] [place] [facility] [address] [id number] [place] [address] Jul, [facility] [place] [facility] [address] [id number] [place] [address] Jul, [facility] [place] [facility] [address] [id number] [place] [address] Jul, [facility] [place] [facility] [address] [id number] [place] [address] Jul, [facility] [place] [facility] [address] [id number] [place] [address] Jul, [facility] [place] [facility] [address] [id number] [place] [address] Jul, [facility] [place] [facility] [address] [id number] [place] [address] Jun, [facility] [place] [facility] [address] [id number] [place] [address] Jun, [facility] [place] [facility] [address] [id number] [place] [address] Jun, [facility] [place] [facility] [address] [id number] [place] [address] Jun, [facility] [place] [facility] [address] [id number] [place] [address] Jun, [facility] [place] [facility] [address] [id number] [place] [address] May, [facility] [place] [facility] [address] [id number] [place] [place] [address] May, [facility] [address] [id number] [place] [address] May, [facility] [address] [id number] [place] [address] May, [facility] [address] [id number] [place] [address] May, [facility] [address] [id number] [place] [address] May, [facility] [address] [id number] [place] [address] May, [facility] [address] [id number] [place] [address] May, [facility] [address] [id number] [place] [address] Mar, [facility] [address] [id number] [place] [address] Mar, [facility] [address] [id number] [place] [address] Mar, [facility] [address] [id number] [place] [address] Feb, [facility] [address] [id number] [place] [address] Feb, [facility] [address] [id number] [place] [address] Feb, [facility] [address] [id number] [place] [address] Feb, [facility] [address] [id number] [place] [address] Jan, [facility] [address] [id number] [place] [address] Jan, [facility] [address] [id number] [place] [address] Jan, [facility] [address] [id number] [place] [address] December, [facility] [address] [id number] [place] [address] Nov, [facility] [address] [id number] [place] [address] Oct, [facility] [address] [id number] [place] [address] Oct, [facility] [address] [id number] [place] [address] Oct, [facility] [address] [id number] [place] [address] Oct, [facility] [address] [id number] [place] [address] Aug, [facility] [address] [id number] [place] [address] Aug, [facility] [address] [id number] [place] [address] Aug, [facility] [address] [id number] [place] [address] Aug, [facility] [address] [id number] [place] [address] Aug, [facility] [address] [id number] [place] [address] Aug, [facility] [address] [id number] [place] [address] Aug, [facility] [address] [id number] [place] [address] Aug, [facility] [address] [id number] [place] [address] Jul, [facility] [address] [id number] [place] [address] Jun, [facility] [address] [id number] [place] [address] Jun, [facility] [address] [id number] [place] [address] 31 Jul, 2010 [facility] [address] [id number] [place] [address] Jul, [facility] [address] [id number] [place] [address] Jul, [facility] [address] [id number] [place] [address] 14 Jul, 2010 [facility] [address] [id number] [place] [address] 14 Jul, 2010 [facility] [address] [id number] [place] [address] Jun, [facility] [address] [id number] [place] [address] May, [facility] [address] [id number] [place] [address] Mar, [facility] [address] [id number] [place] [address] Oct, [facility] [id number] [place] [address] Aug, [facility] [id number] [place] [address] Jul, [facility] [id number] [place] [address] Jul, [facility] [address] [id number] [place] [address] Jun, [facility] [id number] [place] [address] Jun, [facility] [address] [id number] [place] [address] May, [facility] [id number] [place] [address] May, [facility] [id number] [place] [address] Mar, [facility] [id number] [place] [address] Mar, [facility] [id number] [place] [address] 10 Oct, 2008 IMMUNIZATIONS No Known Immunizations [...] replacement L1- L5 - Dr Benito pantoja ([place]) Surgical History appendectomy 1983 Surgical History hysterectomy 1993 Surgical History dilatation and curettage Surgical History heart cath- Dr Shaw [address] Solano bowel and intestines seperated [address] solano removed skin tag and cyst 2017 Surgical History Colonoscopy and upper GI 04/2019 Surgical History endoscopy 08/13/19 Hospitalization History Hospitalization for surgery only
--- OUTSIDE RECORDS SUMMARY | 2019-11-08 08:44 | XMS REPORT ---
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 Active 38479898 Problem Opioid use disorder, moderate, in sustained remission F11.21 Active 37162074 Problem Tobacco use Z72.0 Active 93341964 8 Problem Cocaine use disorder, moderate, in sustained remission F14.21 Active 98463747 Problem GERD with esophagitis K21.0 Active 953872422 Problem Prediabetes 790.29 Active 3211746 Problem PTSD (post-traumatic stress disorder) F43.10 Active 78627581 Problem Bipolar disorder F31.9 Active 137 77329 Problem Gastroesophageal reflux disease, esophagitis pre sence not specified K21.9 Active 035211275 Problem Menopausal disorder N95.9 Active 985292210 Problem Insomnia, unspecified type G47.00 Act avelina 335830365 Problem Cigarette nicotine dependence without complication F17.210 Active 00986098 Problem Cannabis abuse F12.10 Active 25337 009 Problem Irritable bowel syndrome with diarrhea K58.0 Active 212524795 Problem Acute pain of left shoulder M25.512 Ac tive 71303944 Problem Mixed hyperlipidemia E78.2 Active 686637385 Problem Generalized anxiety disorder F41.1 A ctive 45349378 Problem Arthritis M19.90 Active 5697126 Problem Other chronic pain G89.29 Active 8 6505260 Problem Fibromyalgia M79.7 Active 5015330 05 Problem Perimenopausal vasomotor symptoms N95.1 Active 156782153 ALLERGIES No Information ENCOUNTERS Encounter Location Date Diagnosis [place] [address] [address] Oct, [place] [address] [address] 19 Sep, 2019 [place] [address] [address] 14 Sep, 2019 Major depressive disorder, recurrent epi sode, moderate F33.1 ; Generalized anxiety disorder F41.1 ; Irritable bowel syndrome with diarrhea K58.0 and Epigastric abdominal pain R10.13 [facility] [address] [facility] [address] 24 May, 2019 Dental examination Z01.20 and Caries K02.9 [place] [address] [address] 08 May, 2019 Right upper quadrant pain R10.11 and Mix ed hyperlipidemia E78.2 [place] [address] [address] Mar, Perimenopausal vasomotor symptoms N95.1 [place] [address] [address] Mar, [place] [address] [address] Mar, [place] [address] [address] Mar, [place] [address] [address] Mar, Perimenopausal vasomotor symptoms N95.1 ; Irritable bowel syndrome with diarrhea K58.0 ; Insomnia, unspecified type G47.00 and Weight gain R63.5 [place] [address] [address] Feb, [place] [address] [address] Feb, [place] [address] [address] Jan, [place] [address] [address] Jan, Fibromyalgia M79.7 ; Insect bite (nonven omous) of lower back and pelvis, sequela S30.860S ; Bitten or stung by nonvenomous insect and other nonvenomous arthropods, sequela W57.XXXS ; Arthritis M19.90 and Menopausal disorder N95.9 [place] [address] [address] Jan, [place] [address] [address] Jan, Mixed hyperlipidemia E78.[address] [address] December, Screening for breast cancer Z12.31 and B reast lump N63.0 [place] [address] [address] December, Chest pain, unspecified type R07.[address] [address] December, Chest pain, unspecified type R07.9 ; Gas troesophageal reflux disease, esophagitis presence not specified K21.9 and Left breast lump N63.20 [place] [address] [address] December, [facility] [address] [facility] [id number] [place] [address] December, Suprapubic abdominal pain R1 0.2 and Dysuria R30.[address] [address] December, [place] [address] [address] December, Cannabis abuse F12.10 ; Generalized anxi ety disorder F41.1 ; Methamphetamine use disorder, severe, in sustained remission F15.21 ; Alcohol use disorder, mild, in sustained remission F10.11 ; PTSD (post-traumatic stress disorder) F43.10 ; Cocaine use disorder, moderate, in sustained remission F14.21 and Bipolar disorder F31.9 [facility] [place] [address] [place] [id number] Nov, Major depressive disorder, recurrent epi sode, moderate F33.1 ; Cannabis abuse F12.10 ; Generalized anxiety disorder F41.1 ; Methamphetamine use disorder, severe, in sustained remission F15.21 ; Alcohol use disorder, mild, in sustained remission F10.11 ; PTSD (post-traumatic stress disorder) F43.10 and Cocaine use disorder, moderate, in sustained remission F14.21 [place] [address] [address] Oct, Major depressive disorder, recurrent epi sode, moderate F33.1 ; Cannabis abuse F12.10 ; Generalized anxiety disorder F41.1 ; Methamphetamine use disorder, severe, in sustained remission F15.21 ; Alcohol use disorder, mild, in sustained remission F10.11 ; PTSD (post-traumatic stress disorder) F43.10 and Cocaine use disorder, moderate, in sustained remission F14.21 [place] [address] [address] Sep, Major depressive disorder, recurrent epi sode, moderate F33.1 [facility] [address] [id number] [place] [id number] Aug, [facility] [place] [address] [address] Jul, Dysuria R30.0 [facility] [place] [address] [address] Jul, Major depressive disorder, recurrent epi sode, moderate F33.1 [facility] [place] [address] [address] Jun, Major depressive disorder, recurrent epi sode, moderate F33.1 [facility] [place] [address] [address] Jun, Major depressive disorder, recurrent epi sode, moderate F33.1 [facility] [place] [address] [address] 09 Jun, 2018 Acute pain of left shoulder M25.512 and Cigarette nicotine dependence without complication F17.210 [facility] [place] [address] [address] May, [facility] [place] [address] [address] May, Cocaine use disorder, moderate, in susta ined remission F14.21 [facility] [place] [address] [address] May, [facility] [address] [facility] [address] May, Dental examination Z01.20 [facility] [address] [id number] May, Dental examination Z01.20 and Caries K02 .9 [facility] [place] [address] [address] May, Common wart B07.8 [place] [address] [address] May, [facility] [place] [address] [address] 27 Apr, 2018 Cocaine use disorder, moderate, in susta ined remission F14.21 [facility] [place] [address] [address] 14 Apr, 2018 [facility] [address] [id number] 13 Apr, 2018 Dental examination Z01.20 [facility] [address] [id number] Mar, Encounter for dental exam and cleaning w /o abnormal findings Z01.20 [facility] [place] [address] [address] Mar, [place] [address] [address] Feb, Cocaine use disorder, moderate, in susta [...] disorder, recurrent episode, moderate F33.1 [place] [address] [address] Jan, Cocaine use disorder, moderate, in susta ined remission F14.21 [place] [address] [address] Jan, Cocaine use disorder, moderate, in susta [...] Major depressive disorder, recurrent episode, moderate F33.[address] [address] Jan, Dysuria R30.0 and GERD with esophagitis K21.0 [place] [address] [address] December, Major depressive disorder, recurrent epi sode, moderate F33.1 [place] [address] [address] December, [address] [address] December, Major depressive disorder, recurrent epi sode, [...] remission F10.11 and Tobacco use Z72.0 [facility] [place] [address] [place] [id number] [place] [address] Nov, [facility] [address] [place] [id number] [address] Nov, [facility] [place] [address] [address] Nov, Wellness examination Z00.00 ; Encounter for immunization Z23 ; Screening for osteoporosis Z13.820 ; Screening for breast cancer Z12.31 and Left breast lump N63.20 [facility] [address] [id number] [place] [id number] Oct, Dental examination Z01.[address] [address] Oct, [place] [address] [address] 08 Oct, [address] [address] 16 Sep, 2017 [place] [address] [address] 15 Sep, [address] [address] 14 Sep, 2017 Left otitis media with effusion H65.92 ; Acute suppurative otitis media of right ear without spontaneous rupture of tympanic membrane, recurrence not specified H66.001 ; Dizziness R42 and Fatigue 780.[address] [address] Aug, Major depressive disorder, recurrent epi sode, [...] sustained remission F10.11 and Tobacco use Z72.0 [facility] [address] [facility] [id number] [address] [place] [address] Aug, Ingrown right big toenail L6 0.0 [facility] [place] [address] [address] Aug, [place] [address] [address] Aug, PTSD (post-traumatic stress disorder) F4 3.10 [place] [address] [address] Aug, Major depressive disorder, recurrent epi sode, moderate F33.1 ; Generalized anxiety disorder F41.1 and Cannabis abuse F12.10 [facility] [place] [address] [address] Jul, [facility] [place] [address] [address] Jul, [place] [address] [address] Jul, [place] [address] [address] Jul, Major depressive disorder, recurrent epi sode, moderate F33.1 ; Generalized anxiety disorder F41.1 and Cannabis abuse F12.10 [place] [address] [address] Jul, [place] [address] [address] Jul, [place] [address] [address] Jul, Hyperlipidemia 272.4 [place] [address] [address] Jul, PTSD (post-traumatic stress disorder) F4 3.10 [place] [address] [address] Jul, Tobacco use Z72.0 ; Alcohol use [...] F41.1 and Cannabis abuse F12.10 [place] [address] [address] Jul, [address] [address] Jul, Dysuria R30.0 and Mixed hyperlipidemia E 78.[address] [address] Jun, Major depressive disorder, recurrent epi sode, moderate F33.1 ; Generalized anxiety disorder F41.1 and Cannabis abuse F12.[address] [address] Jun, [address] [address] Jun, Generalized anxiety disorder F41.1 ; Blayne [...] sustained remission F14.21 and Tobacco use Z72.[address] [address] Jun, Major depressive disorder, recurrent epi sode, moderate F33.1 ; Generalized anxiety disorder F41.1 and Cannabis abuse F12.10 [facility] [place] [address] [address] Jun, [facility] [place] [address] [address] Jun, [facility] [place] [address] [address] Jun, Major depressive disorder, recurrent epi sode, moderate F33.1 ; Generalized anxiety disorder F41.1 and Cannabis abuse F12.10 [facility] [address] [id number] Mar, Dental examination Z01.20 [facility] [address] [id number] Feb, Dental examination Z01.20 [place] [address] [address] Mar, [place] [address] [address] Mar, [facility] [place] [address] [address] Feb, Hyperlipidemia 272.4 and Prediabetes 790 .29 [place] [address] [address] Feb, Fatigue 780.79 and Hyperlipidemia 272.[address] [address] Feb, Lumbago 724.2 ; Hyperlipidemia 272.4 ; I nsomnia 780.52 and Fatigue 780.79 [place] [address] [address] Nov, [place] [address] [address] Nov, [facility] [place] [address] [address] Mar, [place] [address] [address] Mar, [facility] [address] [id number] [place] [address] Jan, [facility] [address] [id number] [place] [address] Jan, [facility] [address] [id number] [place] [address] December, [facility] [address] [id number] [place] [address] December, [facility] [address] [facility] [id number] [place] [address] Nov, [facility] [address] [id number] [place] [address] Nov, [facility] [address] [id number] [place] [address] Nov, [facility] [address] [id number] [place] [address] Nov, [facility] [address] [id number] [place] [address] Nov, [facility] [address] [id number] [place] [address] Nov, [facility] [address] [id number] [place] [address] Oct, [facility] [address] [id number] [place] [address] Oct, [facility] [address] [id number] [place] [address] Oct, [facility] [address] [id number] [place] [address] Oct, [facility] [address] [id number] [place] [address] Oct, [facility] [address] [id number] [place] [address] Oct, [facility] [address] [id number] [place] [address] Oct, [facility] [address] [facility] [id number] [place] [address] Oct, [facility] [address] [facility] [id number] [place] [address] Oct, [facility] [address] [id number] [place] [address] Oct, [facility] [address] [id number] [place] [address] Oct, [facility] [address] [facility] [id number] [place] [address] Oct, [facility] [address] [id number] [place] [address] Oct, [facility] [address] [id number] [place] [address] Sep, [facility] [address] [id number] [place] [address] 24 Sep, 2013 [facility] [address] [id number] [place] [address] Sep, [facility] [address] [id number] [place] [address] Sep, [facility] [address] [id number] [place] [address] Sep, [facility] [address] [id number] [place] [address] Sep, [facility] [address] [id number] [place] [address] 18 Sep, 2013 [facility] [address] [id number] [place] [address] 18 Sep, 2013 [facility] [address] [id number] [place] [address] 14 Sep, 2013 [facility] [address] [id number] [place] [address] 14 Sep, 2013 [facility] [address] [id number] [place] [address] 14 Sep, 2013 [facility] [address] [id number] [place] [address] 14 Sep, 2013 [facility] [address] [id number] [place] [address] 14 Sep, 2013 [facility] [address] [id number] [place] [address] 14 Sep, 2013 [facility] [address] [id number] [place] [address] 13 Sep, 2013 [facility] [address] [id number] [place] [address] Sep, [facility] [address] [id number] [place] [address] Sep, [facility] [address] [id number] [place] [address] Sep, [facility] [address] [id number] [place] [address] Sep, [facility] [address] [id number] [place] [address] Sep, [facility] [address] [id number] [place] [address] Aug, [facility] [address] [id number] [place] [address] Aug, [facility] [address] [id number] [place] [address] Aug, [facility] [address] [id number] [place] [address] Aug, [facility] [address] [id number] [place] [address] Aug, [facility] [address] [id number] [place] [address] Jul, [facility] [address] [id number] [place] [address] 31 Jul, 2012 [facility] [address] [id number] [place] [address] Jul, [facility] [address] [id number] [place] [address] Jul, [facility] [address] [id number] [place] [address] Jul, [facility] [address] [id number] [place] [address] Jul, [facility] [address] [id number] [place] [address] Jul, [facility] [address] [id number] [place] [address] Jul, [facility] [address] [id number] [place] [address] Jul, [facility] [address] [id number] [place] [address] Jun, [facility] [address] [id number] [place] [address] Jun, [facility] [address] [id number] [place] [address] Jun, [facility] [address] [id number] [place] [address] Jun, [facility] [address] [id number] [place] [address] Jun, [facility] [address] [id number] [place] [address] Jun, [facility] [address] [id number] [place] [address] Jun, [facility] [address] [id number] [place] [address] Jun, [facility] [address] [id number] [place] [address] Jun, [facility] [address] [id number] [place] [address] Jun, [facility] [address] [id number] [place] [address] May, [facility] [address] [id number] [place] [address] May, [facility] [address] [id number] [place] [address] May, [facility] [address] [facility] [id number] [place] [address] May, [facility] [address] [id number] [place] [address] May, [facility] [address] [id number] [place] [address] May, [facility] [address] [id number] [place] [address] May, [facility] [address] [id number] [place] [address] May, [facility] [address] [id number] [place] [address] May, [facility] [address] [id number] [place] [address] 26 Apr, 2012 [facility] [address] [id number] [place] [address] 16 Apr, 2013 [facility] [address] [id number] [place] [address] 12 Apr, 2012 [facility] [address] [id number] [place] [address] 06 Apr, 2013 [facility] [place] [facility] [address] [id number] [place] [address] 30 Mar, 2013 [facility] [place] [facility] [address] [id number] [place] [address] Mar, [facility] [place] [facility] [address] [id number] [place] [address] Mar, [facility] [place] [facility] [address] [id number] [place] [address] Mar, [facility] [place] [facility] [address] [facility] [id number] [place] [address] Mar, [facility] [place] [facility] [address] [id number] [place] [address] Mar, [facility] [place] [facility] [address] [id number] [place] [address] Mar, [facility] [place] [facility] [address] [facility] [id number] [place] [address] Feb, [facility] [place] [facility] [address] [id number] [place] [address] Feb, [facility] [place] [facility] [address] [id number] [place] [address] Feb, [facility] [place] [facility] [address] [id number] [place] [address] Feb, [facility] [place] [facility] [address] [id number] [place] [address] Feb, [facility] [place] [facility] [address] [id number] [place] [address] Feb, [facility] [place] [facility] [address] [id number] [place] [address] Feb, [facility] [place] [facility] [address] [id number] [place] [address] Feb, [facility] [place] [facility] [address] [facility] [id number] [place] [address] Feb, [facility] [place] [facility] [address] [id number] [place] [address] Feb, [facility] [place] [facility] [address] [id number] [place] [address] Feb, [facility] [place] [facility] [address] [id number] [place] [address] Jan, [facility] [place] [facility] [address] [id number] [place] [address] Jan[facility] [address] [id number] [place] [address] December, [facility] [place] [facility] [address] [id number] [place] [address] December, [facility] [place] [facility] [address] [id number] [place] [address] Nov, [facility] [place] [facility] [address] [id number] [place] [address] Nov, [facility] [place] [facility] [address] [id number] [place] [address] Oct, [facility] [place] [facility] [address] [id number] [place] [address] Oct, [facility] [place] [facility] [address] [id number] [place] [address] Oct, [facility] [place] [facility] [address] [facility] [id number] [place] [address] Oct, [facility] [address] [id number] [place] [address] Sep, [facility] [address] [id number] [place] [address] Sep, [facility] [address] [id number] [place] [address] Sep, [facility] [address] [id number] [place] [address] Sep, [facility] [address] [id number] [place] [address] Aug, [facility] [address] [id number] [place] [address] Aug, [facility] [address] [id number] [place] [address] Jul, [facility] [address] [id number] [place] [address] Jul, [facility] [address] [id number] [place] [address] Jul, [facility] [address] [id number] [place] [address] Jul, [facility] [address] [id number] [place] [address] Jul, [facility] [address] [id number] [place] [address] Jul, [facility] [address] [id number] [place] [address] Jun, [facility] [address] [id number] [place] [address] Jun, [facility] [address] [id number] [place] [address] Jun, [facility] [address] [id number] [place] [address] Jun, [facility] [address] [id number] [place] [address] Jun, [facility] [address] [id number] [place] [address] May, [facility] [address] [id number] [place] [address] May, [facility] [address] [id number] [place] [address] May, [facility] [address] [id number] [place] [address] May, [facility] [address] [id number] [place] [address] May, [facility] [address] [id number] [place] [address] May, [facility] [address] [id number] [place] [address] May, [facility] [address] [id number] [place] [address] May, [facility] [address] [id number] [place] [address] Mar, [facility] [address] [id number] [place] [address] Mar, [facility] [address] [id number] [place] [address] Mar, [facility] [address] [id number] [place] [address] Feb, [facility] [address] [id number] [place] [address] Feb, [facility] [address] [id number] [place] [address] Feb, [facility] [address] [id number] [place] [address] Feb, [facility] [address] [id number] [place] [address] Jan, [facility] [address] [id number] [place] [address] Jan, [facility] [address] [id number] [place] [address] Jan, [facility] [address] [id number] [place] [address] December, [facility] [address] [id number] [place] [address] Nov, [facility] [address] [id number] [place] [address] Oct, [facility] [address] [id number] [place] [address] Oct, [facility] [address] [id number] [place] [address] Oct, [facility] [address] [id number] [place] [address] Oct, [facility] [address] [id number] [place] [address] Aug, [facility] [address] [id number] [place] [address] Aug, [facility] [address] [id number] [place] [address] Aug, [facility] [address] [id number] [place] [address] Aug, [facility] [address] [id number] [place] [address] Aug, [facility] [address] [id number] [place] [address] Aug, [facility] [address] [id number] [place] [address] Aug, [facility] [address] [id number] [place] [address] Aug, [facility] [address] [id number] [place] [address] Jul, [facility] [address] [id number] [place] [address] Jun, [facility] [address] [id number] [place] [address] Jun, [facility] [address] [id number] [place] [address] 31 Jul, 2010 [facility] [address] [id number] [place] [address] Jul, [facility] [address] [id number] [place] [address] Jul, [facility] [address] [id number] [place] [address] 14 Jul, 2010 [facility] [address] [id number] [place] [address] 14 Jul, 2010 [facility] [address] [id number] [place] [address] Jun, [facility] [place] [address] [id number] [place] [address] May, [facility] [place] [address] [id number] [place] [address] Mar, [facility] [place] [address] [id number] [place] [address] Oct, [facility] [place] [id number] [place] [address] Aug, [facility] [place] [id number] [place] [address] Jul, [facility] [place] [id number] [place] [address] Jul, [facility] [place] [address] [id number] [place] [address] Jun, [facility] [place] [id number] [place] [address] Jun, [facility] [place] [address] [id number] [place] [address] May, [facility] [place] [id number] [place] [address] May, [facility] [place] [id number] [place] [address] Mar, [facility] [place] [id number] [place] [address] Mar, [facility] [place] [id number] [place] [address] 10 Oct, 2008 IMMUNIZATIONS No Known Immunizations [...] replacement L1- L5 - Dr Benito pantoja ([place]) Surgical History appendectomy 1983 Surgical History hysterectomy 1993 Surgical History dilatation and curettage Surgical History heart cath- Dr Shaw [address] Solano bowel and intestines seperated [address] solano removed skin tag and cyst 2017 Surgical History Colonoscopy and upper GI 04/2019 Surgical History endoscopy 08/13/19 Hospitalization History Hospitalization for surgery only
--- OUTSIDE RECORDS SUMMARY | 2019-11-08 08:44 | XMS REPORT ---
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 Active 09454287 Problem Opioid use disorder, moderate, in sustained remission F11.21 Active 88767983 Problem Tobacco use Z72.0 Active 93028556 8 Problem Cocaine use disorder, moderate, in sustained remission F14.21 Active 61697201 Problem GERD with esophagitis K21.0 Active 126708771 Problem Prediabetes 790.29 Active 9709591 Problem PTSD (post-traumatic stress disorder) F43.10 Active 95875183 Problem Bipolar disorder F31.9 Active 137 43872 Problem Gastroesophageal reflux disease, esophagitis pre sence not specified K21.9 Active 579000756 Problem Menopausal disorder N95.9 Active 735507079 Problem Insomnia, unspecified type G47.00 Act avelina 190774313 Problem Cigarette nicotine dependence without complication F17.210 Active 11461259 Problem Cannabis abuse F12.10 Active 47257 009 Problem Irritable bowel syndrome with diarrhea K58.0 Active 318739662 Problem Acute pain of left shoulder M25.512 Ac tive 30872098 Problem Mixed hyperlipidemia E78.2 Active 516320508 Problem Generalized anxiety disorder F41.1 A ctive 26412391 Problem Arthritis M19.90 Active 3307028 Problem Other chronic pain G89.29 Active 8 8868541 Problem Fibromyalgia M79.7 Active 5656183 05 Problem Perimenopausal vasomotor symptoms N95.1 Active 149221237 ALLERGIES No Information ENCOUNTERS Encounter Location Date Diagnosis [place] [address] [address] Oct, [place] [address] [address] 19 Sep, 2019 [place] [address] [address] 14 Sep, 2019 Major depressive disorder, recurrent epi sode, moderate F33.1 ; Generalized anxiety disorder F41.1 ; Irritable bowel syndrome with diarrhea K58.0 and Epigastric abdominal pain R10.13 [facility] [address] [id number] [address] 24 May, 2019 Dental examination Z01.20 and Caries K02.9 [place] [address] [address] 08 May, 2019 Right upper quadrant pain R10.11 and Mix ed hyperlipidemia E78.2 [place] [address] [address] Mar, Perimenopausal vasomotor symptoms N95.1 [place] [address] [address] Mar, [place] [address] [address] Mar, [place] [address] [address] Mar, [place] [address] [address] Mar, Perimenopausal vasomotor symptoms N95.1 ; Irritable bowel syndrome with diarrhea K58.0 ; Insomnia, unspecified type G47.00 and Weight gain R63.5 [place] [address] [address] Feb, [place] [address] [address] Feb, [place] [address] [address] Jan, [place] [address] [address] Jan, Fibromyalgia M79.7 ; Insect bite (nonven omous) of lower back and pelvis, sequela S30.860S ; Bitten or stung by nonvenomous insect and other nonvenomous arthropods, sequela W57.XXXS ; Arthritis M19.90 and Menopausal disorder N95.9 [place] [address] [address] Jan, [place] [address] [address] Jan, Mixed hyperlipidemia E78.[address] [address] December, Screening for breast cancer Z12.31 and B reast lump N63.0 [place] [address] [address] December, Chest pain, unspecified type R07.[address] [address] December, Chest pain, unspecified type R07.9 ; Gas troesophageal reflux disease, esophagitis presence not specified K21.9 and Left breast lump N63.20 [place] [address] [address] December, [facility] [address] [facility] [id number] [place] [address] December, Suprapubic abdominal pain R1 0.2 and Dysuria R30.[address] [address] December, [place] [address] [address] December, Cannabis abuse F12.10 ; Generalized anxi ety disorder F41.1 ; Methamphetamine use disorder, severe, in sustained remission F15.21 ; Alcohol use disorder, mild, in sustained remission F10.11 ; PTSD (post-traumatic stress disorder) F43.10 ; Cocaine use disorder, moderate, in sustained remission F14.21 and Bipolar disorder F31.9 [facility] [address] [address] Nov, Major depressive disorder, recurrent epi sode, moderate F33.1 ; Cannabis abuse F12.10 ; Generalized anxiety disorder F41.1 ; Methamphetamine use disorder, severe, in sustained remission F15.21 ; Alcohol use disorder, mild, in sustained remission F10.11 ; PTSD (post-traumatic stress disorder) F43.10 and Cocaine use disorder, moderate, in sustained remission F14.21 [place] [address] [address] Oct, Major depressive disorder, recurrent epi sode, moderate F33.1 ; Cannabis abuse F12.10 ; Generalized anxiety disorder F41.1 ; Methamphetamine use disorder, severe, in sustained remission 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 ; Alcohol use disorder, mild, in sustained remission F10.11 ; PTSD (post-traumatic stress disorder) F43.10 and Cocaine use disorder, moderate, in sustained remission F14.21 [place] [address] [address] Sep, Major depressive disorder, recurrent epi sode, moderate F33.1 [facility] [id number] [place] [id number] Aug, [facility] [address] [address] Jul, Dysuria R30.0 [facility] [address] [address] Jul, Major depressive disorder, recurrent epi sode, moderate F33.1 [facility] [address] [address] Jun, Major depressive disorder, recurrent epi sode, moderate F33.1 [facility] [address] [address] Jun, Major depressive disorder, recurrent epi sode, moderate F33.1 [facility] [address] [address] 09 Jun, 2018 Acute pain of left shoulder M25.512 and Cigarette nicotine dependence without complication F17.210 [facility] [address] [address] May, [facility] [address] [address] May, Cocaine use disorder, moderate, in susta ined remission F14.21 [facility] [address] [address] May, [facility] [address] [address] [facility] [address] May, Dental examination Z01.20 [facility] [address] [id number] May, Dental examination Z01.20 and Caries K02 .9 [place] [address] [address] May, Common wart B07.8 [place] [address] [address] May, [facility] [address] [address] 27 Apr, 2018 Cocaine use disorder, moderate, in susta ined remission F14.21 [facility] [address] [address] 14 Apr, 2018 [facility] [address] [id number] 13 Apr, 2018 Dental examination Z01.20 [facility] [address] [id number] Mar, Encounter for dental exam and cleaning w /o abnormal findings Z01.20 [facility] [address] [address] Mar, [place] [address] [address] Feb, Cocaine use disorder, moderate, in susta [...] Major depressive disorder, recurrent episode, moderate F33.1 [place] [address] [address] Jan, Cocaine use disorder, moderate, in susta ined remission F14.21 [place] [address] [address] Jan, Cocaine use disorder, moderate, in susta [...] Major depressive disorder, recurrent episode, moderate F33.1 [place] [address] [address] Jan, Dysuria R30.0 and GERD with esophagitis K21.0 [place] [address] [address] December, Major depressive disorder, recurrent epi sode, moderate F33.1 [place] [address] [address] December, [place] [address] [address] December, Major depressive disorder, recurrent epi sode, [...] sustained remission F10.11 and Tobacco use Z72.0 [facility] [id number] [place] [address] Nov, [facility] [address] [place] [id number] [address] Nov, [facility] [address] [address] Nov, Wellness examination Z00.00 ; Encounter for immunization Z23 ; Screening for osteoporosis Z13.820 ; Screening for breast cancer Z12.31 and Left breast lump N63.20 [facility] [address] [id number] [place] [id number] Oct, Dental examination Z01.20 [facility] [address] [address] Oct, [facility] [address] [address] Oct, [facility] [address] [address] 16 Sep, 2017 [place] [address] [address] Sep, [facility] [address] [address] 14 Sep, 2017 Left otitis media with effusion H65.92 ; Acute suppurative otitis media of right ear without spontaneous rupture of tympanic membrane, recurrence not specified H66.001 ; Dizziness R42 and Fatigue 780.79 [facility] [address] [address] Aug, Major depressive disorder, recurrent epi sode, [...] sustained remission F10.11 and Tobacco use Z72.0 [facility] [address] [facility] [id number] [address] [place] [address] Aug, Ingrown right big toenail L6 0.0 [facility] [address] [address] Aug, [place] [address] [address] Aug, PTSD (post-traumatic stress disorder) F4 3.10 [place] [address] [address] Aug, Major depressive disorder, recurrent epi sode, moderate F33.1 ; Generalized anxiety disorder F41.1 and Cannabis abuse F12.10 [facility] [address] [address] Jul, [facility] [address] [address] Jul, [place] [address] [address] Jul, [place] [address] [address] Jul, Major depressive disorder, recurrent epi sode, moderate F33.1 ; Generalized anxiety disorder F41.1 and Cannabis abuse F12.10 [facility] [address] [address] Jul, [place] [address] [address] Jul, [place] [address] [address] Jul, Hyperlipidemia 272.4 [place] [address] [address] Jul, PTSD (post-traumatic stress disorder) F4 3.[address] [address] Jul, Tobacco use Z72.0 ; Alcohol use [...] anxiety disorder F41.1 and Cannabis abuse F12.[address] [address] Jul, [place] [address] Jul, Dysuria R30.0 and Mixed hyperlipidemia E 78.2 [place] [address] Jun, Major depressive disorder, recurrent epi sode, moderate F33.1 ; Generalized anxiety disorder F41.1 and Cannabis abuse F12.[address] [address] Jun, [address] [address] Jun, Generalized anxiety disorder F41.1 ; Blayne [...] sustained remission F14.21 and Tobacco use Z72.[address] [address] 13 Jun, 2017 Major depressive disorder, recurrent epi sode, moderate F33.1 ; Generalized anxiety disorder F41.1 and Cannabis abuse F12.10 [facility] [address] [address] Jun, [facility] [address] [address] Jun, [facility] [address] [address] Jun, Major depressive disorder, recurrent epi sode, moderate F33.1 ; Generalized anxiety disorder F41.1 and Cannabis abuse F12.10 [facility] [address] [id number] Mar, Dental examination Z01.20 [facility] [address] [id number] Feb, Dental examination Z01.20 [place] [address] [address] Mar, [facility] [address] [address] Mar, [facility] [address] [address] Feb, Hyperlipidemia 272.4 and Prediabetes 790 .29 [place] [address] [address] Feb, Fatigue 780.79 and Hyperlipidemia 272.4 [place] [address] [address] Feb, Lumbago 724.2 ; Hyperlipidemia 272.4 ; I nsomnia 780.52 and Fatigue 780.79 [facility] [address] [address] Nov, [facility] [address] [address] Nov, [facility] [address] [address] Mar, [facility] [address] [address] Mar, [facility] [place] [facility] [address] [id number] [facility] [place] [address] Jan, [facility] [place] [facility] [address] [facility] [id number] [facility] [place] [address] Jan, [facility] [place] [facility] [address] [id number] [facility] [place] [address] December, [facility] [place] [facility] [address] [id number] [place] [address] December, [facility] [place] [facility] [address] [facility] [id number] [place] [address] Nov, [facility] [place] [facility] [address] [id number] [facility] [place] [address] Nov, [facility] [place] [facility] [address] [id number] [place] [address] Nov, [facility] [place] [facility] [address] [id number] [facility] [place] [address] Nov, [facility] [place] [facility] [address] [id number] [facility] [place] [address] Nov, [facility] [place] [facility] [address] [id number] [facility] [place] [address] Nov, [facility] [place] [facility] [address] [id number] [place] [address] Oct, [facility] [place] [facility] [address] [id number] [place] [address] Oct, [facility] [place] [facility] [address] [id number] [facility] [place] [address] Oct, [facility] [place] [facility] [address] [id number] [place] [address] Oct, [facility] [place] [facility] [address] [id number] [place] [address] Oct, [facility] [place] [facility] [address] [id number] [place] [address] Oct, [facility] [place] [facility] [address] [id number] [facility] [place] [address] 12 Oct, 2013 [facility] [place] [facility] [address] [facility] [id number] [facility] [place] [address] Oct, [facility] [place] [facility] [address] [facility] [id number] [facility] [place] [address] Oct, [facility] [place] [facility] [address] [id number] [facility] [place] [address] Oct, [facility] [place] [facility] [address] [facility] [id number] [facility] [place] [address] Oct, [facility] [place] [facility] [address] [facility] [id number] [facility] [place] [address] Oct, [facility] [place] [facility] [address] [id number] [place] [address] Oct, [facility] [place] [facility] [address] [id number] [place] [address] 24 Sep, 2013 [facility] [place] [facility] [address] [id number] [facility] [place] [address] 24 Sep, 2013 [facility] [place] [facility] [address] [id number] [facility] [place] [address] Sep, [facility] [place] [facility] [address] [id number] [place] [address] Sep, [facility] [place] [facility] [address] [id number] [place] [address] Sep, [facility] [place] [facility] [address] [id number] [place] [address] Sep, [facility] [place] [facility] [address] [facility] [id number] [place] [address] 18 Sep, 2013 [facility] [place] [facility] [address] [id number] [place] [address] 18 Sep, 2013 [facility] [place] [facility] [address] [id number] [place] [address] 14 Sep, 2013 [facility] [place] [facility] [address] [id number] [place] [address] 14 Sep, 2013 [facility] [place] [facility] [address] [facility] [id number] [facility] [place] [address] 14 Sep, 2013 [facility] [place] [facility] [address] [facility] [id number] [facility] [place] [address] 14 Sep, 2013 [facility] [place] [facility] [address] [id number] [facility] [place] [address] 14 Sep, 2013 [facility] [place] [facility] [address] [id number] [facility] [place] [address] 14 Sep, 2013 [facility] [place] [facility] [address] [facility] [id number] [facility] [place] [address] Sep, [facility] [place] [facility] [address] [id number] [facility] [place] [address] Sep, [facility] [place] [facility] [address] [id number] [place] [address] Sep, [facility] [place] [facility] [address] [id number] [place] [address] Sep, [facility] [place] [facility] [address] [id number] [facility] [place] [address] Sep, [facility] [place] [facility] [address] [id number] [place] [address] Sep, [facility] [place] [facility] [address] [id number] [place] [address] Aug, [facility] [place] [facility] [address] [id number] [place] [address] Aug, [facility] [place] [facility] [address] [id number] [place] [address] Aug, [facility] [place] [facility] [address] [id number] [place] [address] Aug, [facility] [place] [facility] [address] [id number] [place] [address] Aug, [facility] [place] [facility] [address] [id number] [place] [address] Jul, [facility] [place] [facility] [address] [id number] [place] [address] 31 Jul, 2013 [facility] [place] [facility] [address] [id number] [place] [address] Jul, [facility] [place] [facility] [address] [id number] [place] [address] Jul, [facility] [place] [facility] [address] [id number] [place] [address] Jul, [facility] [place] [facility] [address] [id number] [place] [address] Jul, [facility] [place] [facility] [address] [id number] [place] [address] Jul, [facility] [place] [facility] [address] [id number] [place] [address] Jul, [facility] [place] [facility] [address] [id number] [place] [address] Jul, [facility] [place] [facility] [address] [id number] [place] [address] Jun, [facility] [place] [facility] [address] [id number] [place] [address] Jun, [facility] [place] [facility] [address] [id number] [place] [address] Jun, [facility] [place] [facility] [address] [id number] [place] [address] Jun, [facility] [place] [facility] [address] [id number] [place] [address] Jun, [facility] [place] [facility] [address] [id number] [place] [address] Jun, [facility] [place] [facility] [id number] [place] [address] Jun, [facility] [place] [facility] [address] [id number] [place] [address] Jun, [facility] [place] [facility] [id number] [place] [address] Jun, [facility] [place] [facility] [address] [facility] [id number] [facility] [place] [address] Jun, [facility] [place] [facility] [address] [facility] [id number] [facility] [place] [address] May, [facility] [place] [facility] [address] [facility] [id number] [place] [address] May, [facility] [place] [facility] [address] [facility] [id number] [facility] [place] [address] May, [facility] [place] [facility] [address] [facility] [id number] [facility] [place] [address] May, [facility] [place] [facility] [address] [id number] [place] [address] May, [facility] [place] [facility] [address] [id number] [place] [address] May, [facility] [place] [facility] [address] [id number] [place] [address] May, [facility] [place] [facility] [address] [facility] [id number] [place] [address] May, [facility] [place] [facility] [address] [id number] [place] [address] May, [facility] [place] [facility] [address] [id number] [place] [address] 26 Apr, 2013 [facility] [place] [facility] [address] [id number] [place] [address] 16 Apr, 2013 [facility] [place] [facility] [address] [facility] [id number] [place] [address] 12 Apr, 2013 [facility] [place] [facility] [address] [facility] [id number] [place] [address] 06 Apr, 2013 [facility] [place] [facility] [address] [facility] [id number] [place] [address] 30 Mar, 2013 [facility] [place] [facility] [address] [id number] [place] [address] Mar, [facility] [place] [facility] [address] [id number] [facility] [place] [address] Mar, [facility] [place] [facility] [address] [id number] [facility] [place] [address] Mar, [facility] [address] [facility] [id number] [facility] [place] [address] Mar, [facility] [address] [id number] [place] [address] Mar, [facility] [address] [facility] [id number] [facility] [place] [address] Mar, [facility] [address] [facility] [id number] [facility] [place] [address] Feb, [facility] [address] [id number] [place] [address] Feb, [facility] [address] [id number] [place] [address] Feb, [facility] [address] [id number] [place] [address] Feb, [facility] [address] [id number] [place] [address] Feb, [facility] [address] [id number] [place] [address] Feb, [facility] [address] [id number] [place] [address] Feb, [facility] [address] [id number] [place] [address] Feb, [facility] [address] [facility] [id number] [place] [address] Feb, [facility] [address] [id number] [place] [address] Feb, [facility] [address] [id number] [place] [address] Feb, [facility] [address] [id number] [place] [address] Jan, [facility] [address] [id number] [place] [address] Jan, [facility] [address] [id number] [place] [address] December, [facility] [address] [id number] [place] [address] December, [facility] [address] [id number] [place] [address] Nov, [facility] [address] [id number] [place] [address] Nov, [facility] [address] [id number] [place] [address] Oct, [facility] [address] [id number] [place] [address] Oct, [facility] [address] [id number] [place] [address] Oct, [facility] [address] [id number] [place] [address] Oct, [facility] [address] [id number] [place] [address] Sep, [facility] [address] [id number] [place] [address] Sep, [facility] [address] [id number] [place] [address] Sep, [facility] [address] [id number] [place] [address] Sep, [facility] [address] [id number] [place] [address] Aug, [facility] [address] [id number] [place] [address] Aug, [facility] [address] [id number] [place] [address] Jul, [facility] [address] [id number] [place] [address] Jul, [facility] [address] [id number] [place] [address] Jul, [facility] [address] [id number] [place] [address] Jul, [facility] [address] [id number] [place] [address] Jul, [facility] [address] [id number] [place] [address] Jul, [facility] [address] [id number] [place] [address] Jun, [facility] [address] [id number] [place] [address] Jun, [facility] [address] [id number] [place] [address] Jun, [facility] [address] [id number] [place] [address] Jun, [facility] [address] [id number] [place] [address] Jun, [facility] [address] [id number] [place] [address] May, [facility] [address] [id number] [place] [address] May, [facility] [address] [id number] [place] [address] May, [facility] [address] [id number] [place] [address] May, [facility] [address] [id number] [place] [address] May, [facility] [address] [id number] [place] [address] May, [facility] [address] [id number] [place] [address] May, [facility] [address] [id number] [place] [address] May, [facility] [address] [id number] [place] [address] Mar, [facility] [address] [id number] [place] [address] Mar, [facility] [address] [id number] [place] [address] Mar, [facility] [address] [id number] [place] [address] Feb, [facility] [address] [id number] [place] [address] Feb, [facility] [address] [id number] [place] [address] Feb, [facility] [address] [id number] [place] [address] Feb, [facility] [address] [id number] [place] [address] Jan, [facility] [address] [id number] [place] [address] Jan, [facility] [address] [id number] [place] [address] Jan, [facility] [address] [id number] [place] [address] December, [facility] [address] [id number] [place] [address] Nov, [facility] [address] [id number] [place] [address] Oct, [facility] [id number] [place] [address] Oct, [facility] [address] [id number] [place] [address] Oct, [facility] [address] [id number] [place] [address] Oct, [facility] [address] [id number] [place] [address] Aug, [facility] [address] [id number] [place] [address] Aug, [facility] [address] [id number] [place] [address] Aug, [facility] [address] [id number] [place] [address] Aug, [facility] [address] [id number] [place] [address] Aug, [facility] [address] [id number] [place] [address] Aug, [facility] [address] [id number] [place] [address] Aug, [facility] [address] [id number] [place] [address] Aug, [facility] [address] [id number] [place] [address] Jul, [facility] [address] [id number] [place] [address] Jun, [facility] [address] [id number] [place] [address] Jun, [facility] [address] [id number] [place] [address] 31 Jul, 2010 [facility] [address] [id number] [place] [address] Jul, [facility] [address] [id number] [place] [address] Jul, [facility] [address] [id number] [place] [address] 14 Jul, 2010 [facility] [address] [id number] [place] [address] 14 Jul, 2010 [facility] [address] [id number] [place] [address] Jun, [facility] [address] [id number] [place] [address] May, [facility] [id number] [place] [address] Mar, [facility] [id number] [place] [address] Oct, [facility] [id number] [place] [address] Aug, [facility] [id number] [place] [address] Jul, [facility] [id number] [place] [address] Jul, [facility] [id number] [place] [address] Jun, [facility] [id number] [place] [address] Jun, [facility] [id number] [place] [address] May, [facility] [id number] [place] [address] May, [facility] [id number] [place] [address] Mar, [facility] [id number] [place] [address] Mar, [facility] [id number] [place] [address] Oct, IMMUNIZATIONS No Known Immunizations SOCIAL HISTORY [...] replacement L1- L5 - Dr Benito pantoja ([place]) Surgical History appendectomy 1983 Surgical History hysterectomy 1993 Surgical History dilatation and curettage Surgical History heart cath- Dr Shaw [address] Solano bowel and intestines seperated [address] solano removed skin tag and cyst 2017 Surgical History Colonoscopy and upper GI 04/2019 Surgical History endoscopy 08/13/19 Hospitalization History Hospitalization for surgery only
--- OUTSIDE RECORDS SUMMARY | 2019-11-08 08:45 | XMS REPORT ---
Author Author Elizabeth GUADALUPE Organization 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 Active 98119331 Problem Opioid use disorder, moderate, in sustained remission F11.21 Active 52549453 Problem Tobacco use Z72.0 Active 31636802 8 Problem Cocaine use disorder, moderate, in sustained remission F14.21 Active 95681468 Problem GERD with esophagitis K21.0 Active 568030635 Problem Prediabetes 790.29 Active 9565716 Problem PTSD (post-traumatic stress disorder) F43.10 Active 21601754 Problem Bipolar disorder F31.9 Active 137 94526 Problem Gastroesophageal reflux disease, esophagitis pre sence not specified K21.9 Active 356089194 Problem Menopausal disorder N95.9 Active 058693086 Problem Insomnia, unspecified type G47.00 Act avelina 937755065 Problem Cigarette nicotine dependence without complication F17.210 Active 14187459 Problem Cannabis abuse F12.10 Active 83836 009 Problem Irritable bowel syndrome with diarrhea K58.0 Active 518054934 Problem Acute pain of left shoulder M25.512 Ac tive 02604036 Problem Mixed hyperlipidemia E78.2 Active 246314800 Problem Generalized anxiety disorder F41.1 A ctive 14422963 Problem Arthritis M19.90 Active 3152376 Problem Other chronic pain G89.29 Active 8 2517339 Problem Fibromyalgia M79.7 Active 3224437 05 Problem Perimenopausal vasomotor symptoms N95.1 Active 198581104 ALLERGIES No Information ENCOUNTERS Encounter Location Date Diagnosis [place] [address] [address] Oct, [place] [address] [address] 19 Sep, 2019 [place] [address] [address] 14 Sep, 2019 Major depressive disorder, recurrent epi sode, moderate F33.1 ; Generalized anxiety disorder F41.1 ; Irritable bowel syndrome with diarrhea K58.0 and Epigastric abdominal pain R10.13 [facility] [address] [facility] [address] 24 May, 2019 Dental examination Z01.20 and Caries K02.9 [place] [address] [address] 08 May, 2019 Right upper quadrant pain R10.11 and Mix ed hyperlipidemia E78.2 [place] [address] [address] Mar, Perimenopausal vasomotor symptoms N95.1 [place] [address] [address] Mar, [place] [address] [address] Mar, [place] [address] [address] Mar, [place] [address] [address] Mar, Perimenopausal vasomotor symptoms N95.1 ; Irritable bowel syndrome with diarrhea K58.0 ; Insomnia, unspecified type G47.00 and Weight gain R63.5 [place] [address] [address] Feb, [place] [address] [address] Feb, [place] [address] [address] Jan, [place] [address] [address] Jan, Fibromyalgia M79.7 ; Insect bite (nonven omous) of lower back and pelvis, sequela S30.860S ; Bitten or stung by nonvenomous insect and other nonvenomous arthropods, sequela W57.XXXS ; Arthritis M19.90 and Menopausal disorder N95.9 [place] [address] [address] Jan, [place] [address] [address] Jan, Mixed hyperlipidemia E78.[address] [address] December, Screening for breast cancer Z12.31 and B reast lump N63.0 [place] [address] [address] December, Chest pain, unspecified type R07.[address] [address] December, Chest pain, unspecified type R07.9 ; Gas troesophageal reflux disease, esophagitis presence not specified K21.9 and Left breast lump N63.20 [place] [address] [address] December, [facility] [address] [facility] [id number] [place] [address] December, Suprapubic abdominal pain R1 0.2 and Dysuria R30.[address] [address] December, [place] [address] [address] December, Cannabis abuse F12.10 ; Generalized anxi ety disorder F41.1 ; Methamphetamine use disorder, severe, in sustained remission F15.21 ; Alcohol use disorder, mild, in sustained remission F10.11 ; PTSD (post-traumatic stress disorder) F43.10 ; Cocaine use disorder, moderate, in sustained remission F14.21 [address] [facility] [address] [place] [id number] Nov, Major depressive disorder, recurrent epi sode, moderate F33.1 ; Cannabis abuse F12.10 ; Generalized anxiety disorder F41.1 ; Methamphetamine use disorder, severe, in sustained remission F15.21 ; Alcohol use disorder, mild, in sustained remission F10.11 ; PTSD (post-traumatic stress disorder) F43.10 and Cocaine use disorder, moderate, in sustained remission F14.21 [place] [address] [address] Oct, Major depressive disorder, recurrent epi sode, moderate F33.1 ; Cannabis abuse F12.10 ; Generalized anxiety disorder F41.1 ; Methamphetamine use disorder, severe, in sustained remission F15.21 ; Alcohol use disorder, mild, in sustained remission F10.11 ; PTSD (post-traumatic stress disorder) F43.10 and Cocaine use disorder, moderate, in sustained remission F14.21 [place] [address] [address] Sep, Major depressive disorder, recurrent epi sode, moderate F33.1 [facility] [address] [facility] [place] [id number] Aug, [facility] [address] [address] Jul, Dysuria R30.0 [facility] [address] [address] Jul, Major depressive disorder, recurrent epi sode, moderate F33.1 [facility] [address] [address] Jun, Major depressive disorder, recurrent epi sode, moderate F33.1 [facility] [address] [address] Jun, Major depressive disorder, recurrent epi sode, moderate F33.1 [facility] [address] [address] 09 Jun, 2018 Acute pain of left shoulder M25.512 and Cigarette nicotine dependence without complication F17.210 [facility] [address] [address] May, [facility] [address] [address] May, Cocaine use disorder, moderate, in susta ined remission F14.21 [facility] [address] [address] May, [facility] [address] [facility] [address] May, Dental examination Z01.20 [facility] [address] [id number] May, Dental examination Z01.20 [address] K02 .9 [facility] [address] [address] May, Common wart B07.8 [place] [address] [address] May, [facility] [address] [address] 27 Apr, 2018 Cocaine use disorder, moderate, in susta ined remission F14.21 [facility] [address] [address] 14 Apr, 2018 [facility] [address] [id number] 13 Apr, 2018 Dental examination Z01.20 [facility] [address] [id number] Mar, Encounter for dental exam and cleaning w /o abnormal findings Z01.20 [facility] [address] [address] Mar, [place] [address] [address] Feb, Cocaine use disorder, moderate, in susta [...] Major depressive disorder, recurrent episode, moderate F33.1 [place] [address] [address] Jan, Cocaine use disorder, moderate, in susta ined remission F14.21 [place] [address] [address] Jan, Cocaine use disorder, moderate, in susta [...] Major depressive disorder, recurrent episode, moderate F33.[address] [address] Jan, Dysuria R30.0 and GERD with esophagitis K21.0 [place] [address] [address] December, Major depressive disorder, recurrent epi sode, moderate F33.1 [place] [address] [address] December, [address] [address] December, Major depressive disorder, recurrent epi sode, [...] sustained remission F10.11 and Tobacco use Z72.0 [facility] [address] [place] [id number] [place] [address] Nov, [facility] [address] [place] [id number] [address] Nov, [facility] [address] [address] Nov, Wellness examination Z00.00 ; Encounter for immunization Z23 ; Screening for osteoporosis Z13.820 ; Screening for breast cancer Z12.31 and Left breast lump N63.20 [facility] [address] [id number] [place] [id number] Oct, Dental examination Z01.[address] [address] Oct, [place] [address] [address] 08 Oct, [address] [address] 16 Sep, 2017 [place] [address] [address] 15 Sep, [address] [address] 14 Sep, 2017 Left otitis media with effusion H65.92 ; Acute suppurative otitis media of right ear without spontaneous rupture of tympanic membrane, recurrence not specified H66.001 ; Dizziness R42 and Fatigue 780.[address] [address] Aug, Major depressive disorder, recurrent epi sode, [...] remission F10.11 and Tobacco use Z72.0 [facility] [address] [facility] [id number] [address] [place] [address] Aug, Ingrown right big toenail L6 0.0 [facility] [address] [address] Aug, [place] [address] [address] Aug, PTSD (post-traumatic stress disorder) F4 3.10 [place] [address] [address] Aug, Major depressive disorder, recurrent epi sode, moderate F33.1 ; Generalized anxiety disorder F41.1 and Cannabis abuse F12.10 [facility] [address] [address] Jul, [facility] [address] [address] Jul, [place] [address] [address] Jul, [place] [address] [address] Jul, Major depressive disorder, recurrent epi sode, moderate F33.1 ; Generalized anxiety disorder F41.1 and Cannabis abuse F12.10 [place] [address] [address] Jul, [place] [address] [address] Jul, [place] [address] [address] Jul, Hyperlipidemia 272.4 [place] [address] [address] Jul, PTSD (post-traumatic stress disorder) F4 3.10 [place] [address] [address] Jul, Tobacco use Z72.0 ; Alcohol use [...] anxiety disorder F41.1 and Cannabis abuse F12.10 [place] [address] [address] Jul, [address] [address] Jul, Dysuria R30.0 and Mixed hyperlipidemia E 78.[address] [address] Jun, Major depressive disorder, recurrent epi sode, moderate F33.1 ; Generalized anxiety disorder F41.1 and Cannabis abuse F12.[address] [address] Jun, [address] [address] Jun, Generalized anxiety disorder F41.1 ; Blayne [...] sustained remission F14.21 and Tobacco use Z72.[address] [address] Jun, Major depressive disorder, recurrent epi sode, moderate F33.1 ; Generalized anxiety disorder F41.1 and Cannabis abuse F12.10 [facility] [address] [address] Jun, [facility] [address] [address] Jun, [facility] [address] [address] Jun, Major depressive disorder, recurrent epi sode, moderate F33.1 ; Generalized anxiety disorder F41.1 and Cannabis abuse F12.10 [facility] [address] [id number] Mar, Dental examination Z01.20 [facility] [address] [id number] Feb, Dental examination Z01.20 [place] [address] [address] Mar, [place] [address] [address] Mar, [facility] [address] [address] Feb, Hyperlipidemia 272.4 and Prediabetes 790 .29 [place] [address] [address] Feb, Fatigue 780.79 and Hyperlipidemia 272.[address] [address] Feb, Lumbago 724.2 ; Hyperlipidemia 272.4 ; I nsomnia 780.52 and Fatigue 780.79 [place] [address] [address] Nov, [place] [address] [address] Nov, [facility] [address] [address] Mar, [place] [address] [address] Mar, [facility] [place] [facility] [address] [id number] [place] [address] Jan, [facility] [place] [facility] [address] [id number] [place] [address] Jan, [facility] [place] [facility] [address] [id number] [place] [address] December, [facility] [place] [facility] [address] [id number] [place] [address] December, [facility] [place] [facility] [address] [facility] [id number] [place] [address] Nov, [facility] [place] [facility] [address] [id number] [place] [address] Nov, [facility] [place] [facility] [address] [id number] [place] [address] Nov, [facility] [place] [facility] [address] [id number] [place] [address] Nov, [facility] [place] [facility] [address] [id number] [place] [address] Nov, [facility] [place] [facility] [address] [id number] [place] [address] Nov, [facility] [place] [facility] [address] [id number] [place] [address] Oct, [facility] [place] [facility] [address] [id number] [place] [address] Oct, [facility] [place] [facility] [address] [id number] [place] [address] Oct, [facility] [place] [facility] [address] [id number] [place] [address] Oct, [facility] [place] [facility] [address] [id number] [place] [address] Oct, [facility] [place] [facility] [address] [id number] [place] [address] Oct, [facility] [place] [facility] [address] [id number] [place] [address] Oct, [facility] [place] [facility] [address] [facility] [id number] [place] [address] Oct, [facility] [place] [facility] [address] [facility] [id number] [place] [address] Oct, [facility] [place] [facility] [address] [id number] [place] [address] Oct, [facility] [place] [facility] [address] [id number] [place] [address] Oct, [facility] [place] [facility] [address] [facility] [id number] [place] [address] Oct, [facility] [place] [facility] [address] [id number] [place] [address] Oct, [facility] [place] [facility] [address] [id number] [place] [address] Sep, [facility] [place] [facility] [address] [id number] [place] [address] 24 Sep, 2013 [facility] [place] [facility] [address] [id number] [place] [address] Sep, [facility] [place] [facility] [address] [id number] [place] [address] Sep, [facility] [place] [facility] [address] [id number] [place] [address] Sep, [facility] [place] [facility] [address] [id number] [place] [address] Sep, [facility] [place] [facility] [address] [id number] [place] [address] 18 Sep, 2013 [facility] [place] [facility] [address] [id number] [place] [address] 18 Sep, 2013 [facility] [place] [facility] [address] [id number] [place] [address] 14 Sep, 2013 [facility] [place] [facility] [address] [id number] [place] [address] 14 Sep, 2013 [facility] [place] [facility] [address] [id number] [place] [address] 14 Sep, 2013 [facility] [place] [facility] [address] [id number] [place] [address] 14 Sep, 2013 [facility] [place] [facility] [address] [id number] [place] [address] 14 Sep, 2013 [facility] [place] [facility] [address] [id number] [place] [address] 14 Sep, 2013 [facility] [place] [facility] [address] [id number] [place] [address] 13 Sep, 2013 [facility] [place] [facility] [address] [id number] [place] [address] Sep, [facility] [place] [facility] [address] [id number] [place] [address] Sep, [facility] [place] [facility] [address] [id number] [place] [address] Sep, [facility] [place] [facility] [address] [id number] [place] [address] Sep, [facility] [place] [facility] [address] [id number] [place] [address] Sep, [facility] [place] [facility] [address] [id number] [place] [address] Aug, [facility] [place] [facility] [address] [id number] [place] [address] Aug, [facility] [place] [facility] [address] [id number] [place] [address] Aug, [facility] [place] [facility] [address] [id number] [place] [address] Aug, [facility] [place] [facility] [address] [id number] [place] [address] Aug, [facility] [place] [facility] [address] [id number] [place] [address] Jul, [facility] [place] [facility] [address] [id number] [place] [address] 31 Jul, 2012 [facility] [place] [facility] [address] [id number] [place] [address] Jul, [facility] [place] [facility] [address] [id number] [place] [address] Jul, [facility] [place] [facility] [address] [id number] [place] [address] Jul, [facility] [place] [facility] [address] [id number] [place] [address] Jul, [facility] [place] [facility] [address] [id number] [place] [address] Jul, [facility] [place] [facility] [address] [id number] [place] [address] Jul, [facility] [place] [facility] [address] [id number] [place] [address] Jul, [facility] [place] [facility] [address] [id number] [place] [address] Jun, [facility] [place] [facility] [address] [id number] [place] [address] Jun, [facility] [place] [facility] [address] [id number] [place] [address] Jun, [facility] [place] [facility] [address] [id number] [place] [address] Jun, [facility] [place] [facility] [address] [id number] [place] [address] Jun, [facility] [place] [facility] [address] [id number] [place] [address] Jun, [facility] [place] [facility] [address] [place] [id number] [place] [address] Jun, [facility] [place] [facility] [address] [id number] [place] [address] Jun, [facility] [place] [facility] [address] [id number] [place] [address] Jun, [facility] [place] [facility] [address] [id number] [place] [address] Jun, [facility] [place] [facility] [address] [id number] [place] [address] May, [facility] [place] [facility] [address] [id number] [place] [address] May, [facility] [place] [facility] [address] [id number] [place] [address] May, [facility] [place] [facility] [address] [facility] [id number] [place] [address] May, [facility] [place] [facility] [address] [id number] [place] [address] May, [facility] [place] [facility] [address] [id number] [place] [address] May, [facility] [place] [facility] [address] [id number] [place] [address] May, [facility] [place] [facility] [address] [id number] [place] [address] May, [facility] [place] [facility] [address] [id number] [place] [address] May, [facility] [place] [facility] [address] [id number] [place] [address] 26 Apr, 2012 [facility] [place] [facility] [address] [id number] [place] [address] 16 Apr, 2013 [facility] [place] [facility] [address] [id number] [place] [address] 12 Apr, 2012 [facility] [place] [facility] [address] [id number] [place] [address] 06 Apr, 2013 [facility] [place] [facility] [address] [id number] [place] [address] 30 Mar, 2013 [facility] [place] [facility] [address] [id number] [place] [address] Mar, [facility] [place] [facility] [address] [id number] [place] [address] Mar, [facility] [place] [facility] [address] [id number] [place] [address] Mar, [facility] [place] [facility] [address] [facility] [id number] [place] [address] Mar, [facility] [place] [facility] [address] [id number] [place] [address] Mar, [facility] [place] [facility] [address] [id number] [place] [address] Mar, [facility] [place] [facility] [address] [facility] [id number] [place] [address] Feb, [facility] [place] [facility] [address] [id number] [place] [address] Feb, [facility] [place] [facility] [address] [id number] [place] [address] Feb, [facility] [place] [facility] [address] [id number] [place] [address] Feb, [facility] [place] [facility] [address] [id number] [place] [address] Feb, [facility] [place] [facility] [address] [id number] [place] [address] Feb, [facility] [place] [facility] [address] [id number] [place] [address] Feb, [facility] [place] [facility] [address] [id number] [place] [address] Feb, [facility] [place] [facility] [address] [facility] [id number] [place] [address] Feb, [facility] [place] [facility] [address] [id number] [place] [address] Feb, [facility] [place] [facility] [address] [id number] [place] [address] Feb, [facility] [place] [facility] [address] [id number] [place] [address] Jan, [facility] [place] [facility] [address] [id number] [place] [address] Jan, [facility] [address] [id number] [place] [address] December, [facility] [place] [facility] [address] [id number] [place] [address] December, [facility] [place] [facility] [address] [id number] [place] [address] Nov, [facility] [place] [facility] [address] [id number] [place] [address] Nov, [facility] [place] [facility] [address] [id number] [place] [address] Oct, [facility] [place] [facility] [address] [id number] [place] [address] Oct, [facility] [place] [facility] [address] [id number] [place] [address] Oct, [facility] [place] [facility] [address] [id number] [place] [address] Oct, [facility] [place] [facility] [address] [id number] [place] [address] Sep, [facility] [place] [facility] [address] [id number] [place] [address] Sep, [facility] [place] [facility] [address] [id number] [place] [address] Sep, [facility] [place] [facility] [address] [id number] [place] [address] Sep, [facility] [place] [facility] [address] [id number] [place] [address] Aug, [facility] [place] [facility] [address] [id number] [place] [address] Aug, [facility] [address] [id number] [place] [address] Jul, [facility] [address] [id number] [place] [address] Jul, [facility] [address] [id number] [place] [address] Jul, [facility] [address] [id number] [place] [address] Jul, [facility] [address] [id number] [place] [address] Jul, [facility] [address] [id number] [place] [address] Jul, [facility] [address] [id number] [place] [address] Jun, [facility] [address] [id number] [place] [address] Jun, [facility] [address] [id number] [place] [address] Jun, [facility] [address] [id number] [place] [address] Jun, [facility] [address] [id number] [place] [address] Jun, [facility] [address] [id number] [place] [address] May, [facility] [address] [id number] [place] [address] May, [facility] [address] [id number] [place] [address] May, [facility] [address] [id number] [place] [address] May, [facility] [address] [id number] [place] [address] May, [facility] [address] [id number] [place] [address] May, [facility] [address] [id number] [place] [address] May, [facility] [address] [id number] [place] [address] May, [facility] [address] [id number] [place] [address] Mar, [facility] [address] [id number] [place] [address] Mar, [facility] [address] [id number] [place] [address] Mar, [facility] [address] [id number] [place] [address] Feb, [facility] [address] [id number] [place] [address] Feb, [facility] [address] [id number] [place] [address] Feb, [facility] [address] [id number] [place] [address] Feb, [facility] [address] [id number] [place] [address] Jan, [facility] [address] [id number] [place] [address] Jan, [facility] [address] [id number] [place] [address] Jan, [facility] [address] [id number] [place] [address] December, [facility] [address] [id number] [place] [address] Nov, [facility] [address] [id number] [place] [address] Oct, [facility] [address] [id number] [place] [address] Oct, [facility] [address] [id number] [place] [address] Oct, [facility] [address] [id number] [place] [address] Oct, [facility] [address] [id number] [place] [address] Aug, [facility] [address] [id number] [place] [address] Aug, [facility] [address] [id number] [place] [address] Aug, [facility] [address] [id number] [place] [address] Aug, [facility] [address] [id number] [place] [address] Aug, [facility] [address] [id number] [place] [address] Aug, [facility] [address] [id number] [place] [address] Aug, [facility] [address] [id number] [place] [address] Aug, [facility] [address] [id number] [place] [address] Jul, [facility] [address] [id number] [place] [address] Jun, [facility] [address] [id number] [place] [address] Jun, [facility] [address] [id number] [place] [address] 31 Jul, 2010 [facility] [address] [id number] [place] [address] Jul, [facility] [address] [id number] [place] [address] Jul, [facility] [address] [id number] [place] [address] 14 Jul, 2010 [facility] [address] [id number] [place] [address] 14 Jul, 2010 [facility] [address] [id number] [place] [address] Jun, [facility] [address] [id number] [place] [address] May, [facility] [address] [id number] [place] [address] Mar, [facility] [address] [id number] [place] [address] Oct, [facility] [id number] [place] [address] Aug, [facility] [id number] [place] [address] Jul, [facility] [id number] [place] [address] Jul, [facility] [address] [id number] [place] [address] Jun, [facility] [id number] [place] [address] Jun, [facility] [address] [id number] [place] [address] May, [facility] [id number] [place] [address] May, [facility] [id number] [place] [address] Mar, [facility] [id number] [place] [address] Mar, [facility] [id number] [place] [address] 10 Oct, 2008 IMMUNIZATIONS No Known Immunizations [...] replacement L1- L5 - Dr Benito pantoja ([place]) Surgical History appendectomy 1983 Surgical History hysterectomy 1993 Surgical History dilatation and curettage Surgical History heart cath- Dr Shaw [address] Solano bowel and intestines seperated [address] solano removed skin tag and cyst 2017 Surgical History Colonoscopy and upper GI 04/2019 Surgical History endoscopy 08/13/19 Hospitalization History Hospitalization for surgery only
--- OUTSIDE RECORDS SUMMARY | 2019-11-08 08:45 | XMS REPORT ---
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 Active 79606356 Problem Opioid use disorder, moderate, in sustained remission F11.21 Active 50851542 Problem Tobacco use Z72.0 Active 19816215 8 Problem Cocaine use disorder, moderate, in sustained remission F14.21 Active 06146774 Problem GERD with esophagitis K21.0 Active 418757417 Problem Prediabetes 790.29 Active 5082031 Problem PTSD (post-traumatic stress disorder) F43.10 Active 11376367 Problem Bipolar disorder F31.9 Active 137 10637 Problem Gastroesophageal reflux disease, esophagitis pre sence not specified K21.9 Active 351550109 Problem Menopausal disorder N95.9 Active 284096619 Problem Insomnia, unspecified type G47.00 Act avelina 486987830 Problem Cigarette nicotine dependence without complication F17.210 Active 41369359 Problem Cannabis abuse F12.10 Active 19909 009 Problem Irritable bowel syndrome with diarrhea K58.0 Active 580967432 Problem Acute pain of left shoulder M25.512 Ac tive 76168533 Problem Mixed hyperlipidemia E78.2 Active 059060274 Problem Generalized anxiety disorder F41.1 A ctive 92101241 Problem Arthritis M19.90 Active 9480638 Problem Other chronic pain G89.29 Active 8 6905857 Problem Fibromyalgia M79.7 Active 5472946 05 Problem Perimenopausal vasomotor symptoms N95.1 Active 148018886 ALLERGIES No Information ENCOUNTERS Encounter Location Date Diagnosis [place] [address] [address] Oct, [place] [address] [address] 19 Sep, 2019 [place] [address] [address] 14 Sep, 2019 Major depressive disorder, recurrent epi sode, moderate F33.1 ; Generalized anxiety disorder F41.1 ; Irritable bowel syndrome with diarrhea K58.0 and Epigastric abdominal pain R10.13 [facility] [address] [facility] [address] 24 May, 2019 Dental examination Z01.20 and Caries K02.9 [place] [address] [address] 08 May, 2019 Right upper quadrant pain R10.11 and Mix ed hyperlipidemia E78.2 [place] [address] [address] Mar, Perimenopausal vasomotor symptoms N95.1 [place] [address] [address] Mar, [place] [address] [address] Mar, [place] [address] [address] Mar, [place] [address] [address] Mar, Perimenopausal vasomotor symptoms N95.1 ; Irritable bowel syndrome with diarrhea K58.0 ; Insomnia, unspecified type G47.00 and Weight gain R63.5 [place] [address] [address] Feb, [place] [address] [address] Feb, [place] [address] [address] Jan, [place] [address] [address] Jan, Fibromyalgia M79.7 ; Insect bite (nonven omous) of lower back and pelvis, sequela S30.860S ; Bitten or stung by nonvenomous insect and other nonvenomous arthropods, sequela W57.XXXS ; Arthritis M19.90 and Menopausal disorder N95.9 [place] [address] [address] Jan, [place] [address] [address] Jan, Mixed hyperlipidemia E78.[address] [address] December, Screening for breast cancer Z12.31 and B reast lump N63.0 [place] [address] [address] December, Chest pain, unspecified type R07.[address] [address] December, Chest pain, unspecified type R07.9 ; Gas troesophageal reflux disease, esophagitis presence not specified K21.9 and Left breast lump N63.20 [place] [address] [address] December, [facility] [address] [facility] [id number] [address] [address] December, Suprapubic abdominal pain R1 0.2 and Dysuria R30.[address] [address] December, [place] [address] [address] December, Cannabis abuse F12.10 ; Generalized anxi ety disorder F41.1 ; Methamphetamine use disorder, severe, in sustained remission F15.21 ; Alcohol use disorder, mild, in sustained remission F10.11 ; PTSD (post-traumatic stress disorder) F43.10 ; Cocaine use disorder, moderate, in sustained remission F14.21 and Bipolar disorder F31.9 [facility] [address] [place] [id number] Nov, Major depressive disorder, recurrent epi sode, moderate F33.1 ; Cannabis abuse F12.10 ; Generalized anxiety disorder F41.1 ; Methamphetamine use disorder, severe, in sustained remission F15.21 ; Alcohol use disorder, mild, in sustained remission F10.11 ; PTSD (post-traumatic stress disorder) F43.10 and Cocaine use disorder, moderate, in sustained remission F14.21 [place] [address] [address] Oct, Major depressive disorder, recurrent epi sode, moderate F33.1 ; Cannabis abuse F12.10 ; Generalized anxiety disorder F41.1 ; Methamphetamine use disorder, severe, in sustained remission F15.21 ; Alcohol use disorder, mild, in sustained remission F10.11 ; PTSD (post-traumatic stress disorder) F43.10 and Cocaine use disorder, moderate, in sustained remission F14.21 [place] [address] [address] Sep, Major depressive disorder, recurrent epi sode, moderate F33.1 [facility] [address] [id number] [place] [id number] Aug, [facility] [address] [address] Jul, Dysuria R30.0 [facility] [address] [address] Jul, Major depressive disorder, recurrent epi sode, moderate F33.1 [facility] [address] [address] Jun, Major depressive disorder, recurrent epi sode, moderate F33.1 [facility] [address] [address] Jun, Major depressive disorder, recurrent epi sode, moderate F33.1 [facility] [address] [address] 09 Jun, 2018 Acute pain of left shoulder M25.512 and Cigarette nicotine dependence without complication F17.210 [facility] [address] [address] May, [facility] [address] [address] May, Cocaine use disorder, moderate, in susta ined remission F14.21 [facility] [address] [address] May, [facility] [address] [facility] [address] May, Dental examination Z01.20 [facility] [address] [id number] May, Dental examination Z01.20 and Caries K02 .9 [facility] [address] [address] May, Common wart B07.8 [place] [address] [address] May, [facility] [address] [address] 27 Apr, 2018 Cocaine use disorder, moderate, in susta ined remission F14.21 [facility] [address] [address] 14 Apr, 2018 [facility] [address] [id number] 13 Apr, 2018 Dental examination Z01.20 [facility] [address] [id number] Mar, Encounter for dental exam and cleaning w /o abnormal findings Z01.20 [facility] [address] [address] Mar, [place] [address] [address] Feb, Cocaine use disorder, moderate, in susta [...] disorder, recurrent episode, moderate F33.1 [place] [address] [address] Jan, Cocaine use disorder, moderate, in susta ined remission F14.21 [place] [address] [address] Jan, Cocaine use disorder, moderate, in susta [...] Major depressive disorder, recurrent episode, moderate F33.[address] [address] Jan, Dysuria R30.0 and GERD with esophagitis K21.0 [place] [address] [address] December, Major depressive disorder, recurrent epi sode, moderate F33.1 [place] [address] [address] December, [address] [address] December, Major depressive disorder, recurrent epi sode, [...] use Z72.0 [facility] [address] [place] [id number] [place] [address] Nov, [facility] [address] [place] [id number] [address] Nov, [facility] [address] [address] Nov, Wellness examination Z00.00 ; Encounter for immunization Z23 ; Screening for osteoporosis Z13.820 ; Screening for breast cancer Z12.31 and Left breast lump N63.20 [facility] [address] [facility] [place] [id number] Oct, Dental examination Z01.[address] [address] Oct, [place] [address] [address] 08 Oct, [address] [address] 16 Sep, 2017 [place] [address] [address] 15 Sep, [address] [address] 14 Sep, 2017 Left otitis media with effusion H65.92 ; Acute suppurative otitis media of right ear without spontaneous rupture of tympanic membrane, recurrence not specified H66.001 ; Dizziness R42 and Fatigue 780.[address] [address] Aug, Major depressive disorder, recurrent epi sode, [...] remission F10.11 and Tobacco use Z72.0 [facility] [address] [facility] [id number] [address] [place] [address] Aug, Ingrown right big toenail L6 0.0 [facility] [address] [address] Aug, [place] [address] [address] Aug, PTSD (post-traumatic stress disorder) F4 3.10 [place] [address] [address] Aug, Major depressive disorder, recurrent epi sode, moderate F33.1 ; Generalized anxiety disorder F41.1 and Cannabis abuse F12.10 [facility] [address] [address] Jul, [facility] [address] [address] Jul, [place] [address] [address] Jul, [place] [address] [address] Jul, Major depressive disorder, recurrent epi sode, moderate F33.1 ; Generalized anxiety disorder F41.1 and Cannabis abuse F12.10 [place] [address] [address] Jul, [place] [address] [address] Jul, [place] [address] [address] Jul, Hyperlipidemia 272.4 [place] [address] [address] Jul, PTSD (post-traumatic stress disorder) F4 3.10 [place] [address] [address] Jul, Tobacco use Z72.0 ; Alcohol use [...] F41.1 and Cannabis abuse F12.10 [place] [address] [address] Jul, [address] [address] Jul, Dysuria R30.0 and Mixed hyperlipidemia E 78.[address] [address] Jun, Major depressive disorder, recurrent epi sode, moderate F33.1 ; Generalized anxiety disorder F41.1 and Cannabis abuse F12.[address] [address] Jun, [address] [address] Jun, Generalized anxiety disorder F41.1 ; Blayne [...] remission F14.21 and Tobacco use Z72.[address] [address] Jun, Major depressive disorder, recurrent epi sode, moderate F33.1 ; Generalized anxiety disorder F41.1 and Cannabis abuse F12.10 [facility] [address] [address] Jun, [facility] [address] [address] Jun, [facility] [address] [address] Jun, Major depressive disorder, recurrent epi sode, moderate F33.1 ; Generalized anxiety disorder F41.1 and Cannabis abuse F12.10 [facility] [address] [id number] Mar, Dental examination Z01.20 [facility] [address] [id number] Feb, Dental examination Z01.20 [place] [address] [address] Mar, [place] [address] [address] Mar, [facility] [address] [address] Feb, Hyperlipidemia 272.4 and Prediabetes 790 .29 [place] [address] [address] Feb, Fatigue 780.79 and Hyperlipidemia 272.[address] [address] Feb, Lumbago 724.2 ; Hyperlipidemia 272.4 ; I nsomnia 780.52 and Fatigue 780.79 [place] [address] [address] Nov, [place] [address] [address] Nov, [facility] [address] [address] Mar, [place] [address] [address] Mar, [facility] [address] [id number] [place] [address] Jan, [facility] [address] [id number] [place] [address] Jan, [facility] [address] [id number] [place] [address] December, [facility] [address] [id number] [place] [address] December, [facility] [address] [facility] [id number] [place] [address] Nov, [facility] [address] [id number] [place] [address] Nov, [facility] [address] [id number] [place] [address] Nov, [facility] [address] [id number] [place] [address] Nov, [facility] [address] [id number] [place] [address] Nov, [facility] [address] [id number] [place] [address] Nov, [facility] [address] [id number] [place] [address] Oct, [facility] [address] [id number] [place] [address] Oct, [facility] [address] [id number] [place] [address] Oct, [facility] [address] [id number] [place] [address] Oct, [facility] [address] [id number] [place] [address] Oct, [facility] [address] [id number] [place] [address] Oct, [facility] [address] [id number] [place] [address] Oct, [facility] [address] [facility] [id number] [place] [address] Oct, [facility] [address] [facility] [id number] [place] [address] Oct, [facility] [address] [id number] [place] [address] Oct, [facility] [address] [id number] [place] [address] Oct, [facility] [address] [facility] [id number] [place] [address] Oct, [facility] [address] [id number] [place] [address] Oct, [facility] [address] [id number] [place] [address] Sep, [facility] [address] [id number] [place] [address] 24 Sep, 2013 [facility] [address] [id number] [place] [address] Sep, [facility] [address] [id number] [place] [address] Sep, [facility] [address] [id number] [place] [address] Sep, [facility] [address] [id number] [place] [address] Sep, [facility] [address] [id number] [place] [address] 18 Sep, 2013 [facility] [address] [id number] [place] [address] 18 Sep, 2013 [facility] [address] [id number] [place] [address] 14 Sep, 2013 [facility] [address] [id number] [place] [address] 14 Sep, 2013 [facility] [address] [id number] [place] [address] 14 Sep, 2013 [facility] [address] [id number] [place] [address] 14 Sep, 2013 [facility] [address] [id number] [place] [address] 14 Sep, 2013 [facility] [address] [id number] [place] [address] 14 Sep, 2013 [facility] [address] [id number] [place] [address] 13 Sep, 2013 [facility] [address] [id number] [place] [address] Sep, [facility] [address] [id number] [place] [address] Sep, [facility] [address] [id number] [place] [address] Sep, [facility] [address] [id number] [place] [address] Sep, [facility] [address] [id number] [place] [address] Sep, [facility] [address] [id number] [place] [address] Aug, [facility] [address] [id number] [place] [address] Aug, [facility] [address] [id number] [place] [address] Aug, [facility] [address] [id number] [place] [address] Aug, [facility] [address] [id number] [place] [address] Aug, [facility] [address] [id number] [place] [address] Jul, [facility] [address] [id number] [place] [address] 31 Jul, 2012 [facility] [address] [id number] [place] [address] Jul, [facility] [address] [id number] [place] [address] Jul, [facility] [address] [id number] [place] [address] Jul, [facility] [address] [id number] [place] [address] Jul, [facility] [address] [id number] [place] [address] Jul, [facility] [address] [id number] [place] [address] Jul, [facility] [address] [id number] [place] [address] Jul, [facility] [address] [id number] [place] [address] Jun, [facility] [address] [id number] [place] [address] Jun, [facility] [address] [id number] [place] [address] Jun, [facility] [address] [id number] [place] [address] Jun, [facility] [address] [id number] [place] [address] Jun, [facility] [address] [id number] [place] [address] Jun, [facility] [address] [place] [id number] [place] [address] Jun, [facility] [address] [id number] [place] [address] Jun, [facility] [address] [id number] [place] [address] Jun, [facility] [address] [id number] [place] [address] Jun, [facility] [address] [id number] [place] [address] May, [facility] [address] [id number] [place] [address] May, [facility] [address] [id number] [place] [address] May, [facility] [address] [facility] [id number] [place] [address] May, [facility] [address] [id number] [place] [address] May, [facility] [address] [id number] [place] [address] May, [facility] [address] [id number] [place] [address] May, [facility] [address] [id number] [place] [address] May, [facility] [place] [facility] [address] [id number] [place] [address] May, [facility] [place] [facility] [address] [id number] [place] [address] 26 Apr, 2012 [facility] [place] [facility] [address] [id number] [place] [address] 16 Apr, 2013 [facility] [place] [facility] [address] [id number] [place] [address] 12 Apr, 2012 [facility] [place] [facility] [address] [id number] [place] [address] 06 Apr, 2013 [facility] [place] [facility] [address] [id number] [place] [address] 30 Mar, 2013 [facility] [place] [facility] [address] [id number] [place] [address] Mar, [facility] [place] [facility] [address] [id number] [place] [address] Mar, [facility] [place] [facility] [address] [id number] [place] [address] Mar, [facility] [place] [facility] [address] [facility] [id number] [place] [address] Mar, [facility] [place] [facility] [address] [id number] [place] [address] Mar, [facility] [place] [facility] [address] [id number] [place] [address] Mar, [facility] [place] [facility] [address] [facility] [id number] [place] [address] Feb, [facility] [place] [facility] [address] [id number] [place] [address] Feb, [facility] [place] [facility] [address] [id number] [place] [address] Feb, [facility] [place] [facility] [address] [id number] [place] [address] Feb, [facility] [place] [facility] [address] [id number] [place] [address] Feb, [facility] [place] [facility] [address] [id number] [place] [address] Feb, [facility] [place] [facility] [address] [id number] [place] [address] Feb, [facility] [place] [facility] [address] [id number] [place] [address] Feb, [facility] [place] [facility] [address] [facility] [id number] [place] [address] Feb, [facility] [address] [id number] [place] [address] Feb, [facility] [address] [id number] [place] [address] Feb, [facility] [address] [id number] [place] [address] Jan, [facility] [address] [id number] [place] [address] Jan[facility] [address] [id number] [place] [address] December, [facility] [address] [id number] [place] [address] December, [facility] [address] [id number] [place] [address] Nov, [facility] [address] [id number] [place] [address] Nov, [facility] [address] [id number] [place] [address] Oct, [facility] [address] [id number] [place] [address] Oct, [facility] [address] [id number] [place] [address] Oct, [facility] [address] [id number] [place] [address] Oct, [facility] [address] [id number] [place] [address] Sep, [facility] [address] [id number] [place] [address] Sep, [facility] [address] [id number] [place] [address] Sep, [facility] [address] [id number] [place] [address] Sep, [facility] [address] [id number] [place] [address] Aug, [facility] [address] [id number] [place] [address] Aug, [facility] [address] [id number] [place] [address] Jul, [facility] [address] [id number] [place] [address] Jul, [facility] [address] [id number] [place] [address] Jul, [facility] [address] [id number] [place] [address] Jul, [facility] [address] [id number] [place] [address] Jul, [facility] [address] [id number] [place] [address] Jul, [facility] [address] [id number] [place] [address] Jun, [facility] [address] [id number] [place] [address] Jun, [facility] [address] [id number] [place] [address] Jun, [facility] [address] [id number] [place] [address] Jun, [facility] [address] [id number] [place] [address] Jun, [facility] [address] [id number] [place] [address] May, [facility] [address] [id number] [place] [address] May, [facility] [address] [id number] [place] [address] May, [facility] [address] [id number] [place] [address] May, [facility] [address] [id number] [place] [address] May, [facility] [address] [id number] [place] [address] May, [facility] [address] [id number] [place] [address] May, [facility] [address] [id number] [place] [address] May, [facility] [address] [id number] [place] [address] Mar, [facility] [address] [id number] [place] [address] Mar, [facility] [address] [id number] [place] [address] Mar, [facility] [address] [id number] [place] [address] Feb, [facility] [address] [id number] [place] [address] Feb, [facility] [address] [id number] [place] [address] Feb, [facility] [address] [id number] [place] [address] Feb, [facility] [address] [id number] [place] [address] Jan, [facility] [address] [id number] [place] [address] Jan, [facility] [address] [id number] [place] [address] Jan, [facility] [address] [id number] [place] [address] December, [facility] [address] [id number] [place] [address] Nov, [facility] [address] [id number] [place] [address] Oct, [facility] [address] [id number] [place] [address] Oct, [facility] [address] [id number] [place] [address] Oct, [facility] [address] [id number] [place] [address] Oct, [facility] [address] [id number] [place] [address] Aug, [facility] [address] [id number] [place] [address] Aug, [facility] [address] [id number] [place] [address] Aug, [facility] [address] [id number] [place] [address] Aug, [facility] [address] [id number] [place] [address] Aug, [facility] [address] [id number] [place] [address] Aug, [facility] [address] [id number] [place] [address] Aug, [facility] [address] [id number] [place] [address] Aug, [facility] [address] [id number] [place] [address] Jul, [facility] [address] [id number] [place] [address] Jun, [facility] [address] [id number] [place] [address] Jun, [facility] [address] [id number] [place] [address] 31 Jul, 2010 [facility] [address] [id number] [place] [address] Jul, [facility] [address] [id number] [place] [address] Jul, [facility] [address] [id number] [place] [address] 14 Jul, 2010 [facility] [address] [id number] [place] [address] 14 Jul, 2010 [facility] [address] [id number] [place] [address] Jun, [facility] [address] [id number] [place] [address] May, [facility] [id number] [place] [address] Mar, [facility] [address] [id number] [place] [address] Oct, [facility] [id number] [place] [address] Aug, [facility] [id number] [place] [address] Jul, [facility] [id number] [place] [address] Jul, [facility] [id number] [place] [address] Jun, [facility] [id number] [place] [address] Jun, [facility] [id number] [place] [address] May, [facility] [id number] [place] [address] May, [facility] [id number] [place] [address] Mar, [facility] [id number] [place] [address] Mar, [facility] [id number] [place] [address] Oct, IMMUNIZATIONS No Known Immunizations SOCIAL HISTORY Never Assessed REASON FOR VISIT PLAN OF CARE VITAL SIGNS MEDICATIONS Unknown Medications RESULTS No Results PROCEDURES Procedure Date Ordered Result Body Site X-RAY EXAM OF SHOULDER Sep 19, 2013 INSTRUCTIONS MEDICATIONS ADMINISTERED No Known Medications [...] replacement L1- L5 - Dr Benito pantoja ([place]) Surgical History appendectomy 1983 Surgical History hysterectomy 1993 Surgical History dilatation and curettage Surgical History heart cath- Dr Shaw [address] Solano bowel and intestines seperated [address] solano removed skin tag and cyst 2017 Surgical History Colonoscopy and upper GI 04/2019 Surgical History endoscopy 08/13/19 Hospitalization History Hospitalization for surgery only
--- OUTSIDE RECORDS SUMMARY | 2019-11-08 08:45 | XMS REPORT ---
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 Active 90987155 Problem Opioid use disorder, moderate, in sustained remission F11.21 Active 60706947 Problem Tobacco use Z72.0 Active 11381503 8 Problem Cocaine use disorder, moderate, in sustained remission F14.21 Active 83825415 Problem GERD with esophagitis K21.0 Active 679267634 Problem Prediabetes 790.29 Active 7918936 Problem PTSD (post-traumatic stress disorder) F43.10 Active 67837529 Problem Bipolar disorder F31.9 Active 137 38763 Problem Gastroesophageal reflux disease, esophagitis pre sence not specified K21.9 Active 172837408 Problem Menopausal disorder N95.9 Active 197862097 Problem Insomnia, unspecified type G47.00 Act avelina 201954012 Problem Cigarette nicotine dependence without complication F17.210 Active 20302907 Problem Cannabis abuse F12.10 Active 54878 009 Problem Irritable bowel syndrome with diarrhea K58.0 Active 640996037 Problem Acute pain of left shoulder M25.512 Ac tive 23056893 Problem Mixed hyperlipidemia E78.2 Active 516131672 Problem Generalized anxiety disorder F41.1 A ctive 95870300 Problem Arthritis M19.90 Active 3527617 Problem Other chronic pain G89.29 Active 8 5863282 Problem Fibromyalgia M79.7 Active 7794876 05 Problem Perimenopausal vasomotor symptoms N95.1 Active 796772966 ALLERGIES No Information ENCOUNTERS Encounter Location Date Diagnosis [place] [address] [address] Oct, [place] [address] [address] 19 Sep, 2019 [place] [address] [address] 14 Sep, 2019 Major depressive disorder, recurrent epi sode, moderate F33.1 ; Generalized anxiety disorder F41.1 ; Irritable bowel syndrome with diarrhea K58.0 and Epigastric abdominal pain R10.13 [facility] IOL [address] [facility] [address] 24 May, 2019 Dental examination Z01.20 and Caries K02.9 [place] [address] [address] 08 May, 2019 Right upper quadrant pain R10.11 and Mix ed hyperlipidemia E78.2 [place] [address] [address] Mar, Perimenopausal vasomotor symptoms N95.1 [place] [address] [address] Mar, [place] [address] [address] Mar, [place] [address] [address] Mar, [place] [address] [address] Mar, Perimenopausal vasomotor symptoms N95.1 ; Irritable bowel syndrome with diarrhea K58.0 ; Insomnia, unspecified type G47.00 and Weight gain R63.5 [place] [address] [address] Feb, [place] [address] [address] Feb, [place] [address] [address] Jan, [place] [address] [address] Jan, Fibromyalgia M79.7 ; Insect bite (nonven omous) of lower back and pelvis, sequela S30.860S ; Bitten or stung by nonvenomous insect and other nonvenomous arthropods, sequela W57.XXXS ; Arthritis M19.90 and Menopausal disorder N95.9 [place] [address] [address] Jan, [place] [address] [address] Jan, Mixed hyperlipidemia E78.[address] [address] December, Screening for breast cancer Z12.31 and B reast lump N63.0 [place] [address] [address] December, Chest pain, unspecified type R07.[address] [address] December, Chest pain, unspecified type R07.9 ; Gas troesophageal reflux disease, esophagitis presence not specified K21.9 and Left breast lump N63.20 [place] [address] [address] December, [facility] [address] [facility]NOTE 3] [id number] [place] [address] December, Suprapubic abdominal pain R1 0.2 and Dysuria R30.[address] [address] December, [place] [address] [address] December, Cannabis abuse F12.10 ; Generalized anxi ety disorder F41.1 ; Methamphetamine use disorder, severe, in sustained remission F15.21 ; Alcohol use disorder, mild, in sustained remission F10.11 ; PTSD (post-traumatic stress disorder) F43.10 ; Cocaine use disorder, moderate, in sustained remission F14.21 and Bipolar disorder F31.9 [facility] [address] [place] [id number] Nov, Major depressive disorder, recurrent epi sode, moderate F33.1 ; Cannabis abuse F12.10 ; Generalized anxiety disorder F41.1 ; Methamphetamine use disorder, severe, in sustained remission F15.21 ; Alcohol use disorder, mild, in sustained remission F10.11 ; PTSD (post-traumatic stress disorder) F43.10 and Cocaine use disorder, moderate, in sustained remission F14.21 [place] [address] [address] Oct, Major depressive disorder, recurrent epi sode, moderate F33.1 ; Cannabis abuse F12.10 ; Generalized anxiety disorder F41.1 ; Methamphetamine use disorder, severe, in sustained remission F15.21 ; Alcohol use disorder, mild, in sustained remission F10.11 ; PTSD (post-traumatic stress disorder) F43.10 and Cocaine use disorder, moderate, in sustained remission F14.21 [place] [address] [address] Sep, Major depressive disorder, recurrent epi sode, moderate F33.1 [facility] [address] [facility] [place] [id number] Aug, [facility] [address] [address] Jul, Dysuria R30.0 [facility] [address] [address] Jul, Major depressive disorder, recurrent epi sode, moderate F33.1 [facility] [address] [address] Jun, Major depressive disorder, recurrent epi sode, moderate F33.1 [facility] [address] [address] Jun, Major depressive disorder, recurrent epi sode, moderate F33.1 [facility] [address] [address] 09 Jun, 2018 Acute pain of left shoulder M25.512 and Cigarette nicotine dependence without complication F17.210 [facility] [address] [address] May, [facility] [address] [address] May, Cocaine use disorder, moderate, in susta ined remission F14.21 [facility] [address] [address] May, [facility] [address] [facility] [address] May, Dental examination Z01.20 [facility] [address] [id number] May, Dental examination Z01.20 and Caries K02 .9 [facility] [address] [address] May, Common wart B07.8 [place] [address] [address] May, [facility] [address] [address] 27 Apr, 2018 Cocaine use disorder, moderate, in susta ined remission F14.21 [facility] [address] [address] 14 Apr, 2018 [facility] [address] [id number] 13 Apr, 2018 Dental examination Z01.20 [facility] [address] [id number] Mar, Encounter for dental exam and cleaning w /o abnormal findings Z01.20 [facility] [address] [address] Mar, [place] [address] [address] Feb, Cocaine use disorder, moderate, in susta [...] Major depressive disorder, recurrent episode, moderate F33.1 [place] [address] [address] Jan, Cocaine use disorder, moderate, in susta ined remission F14.21 [place] [address] [address] Jan, Cocaine use disorder, moderate, in susta [...] depressive disorder, recurrent episode, moderate F33.[address] [address] Jan, Dysuria R30.0 and GERD with esophagitis K21.0 [place] [address] [address] December, Major depressive disorder, recurrent epi sode, moderate F33.1 [place] [address] [address] December, [address] [address] December, Major depressive disorder, recurrent epi sode, [...] remission F10.11 and Tobacco use Z72.0 [facility] [address] [place] [id number] [place] [address] Nov, [facility] [address] [place] [address] [address] Nov, [facility] [address] [address] Nov, Wellness examination Z00.00 ; Encounter for immunization Z23 ; Screening for osteoporosis Z13.820 ; Screening for breast cancer Z12.31 and Left breast lump N63.20 [facility] [address] [facility] [place] [id number] Oct, Dental examination Z01.[address] [address] Oct, [place] [address] [address] 08 Oct, [address] [address] 16 Sep, 2017 [place] [address] [address] 15 Sep, [address] [address] 14 Sep, 2017 Left otitis media with effusion H65.92 ; Acute suppurative otitis media of right ear without spontaneous rupture of tympanic membrane, recurrence not specified H66.001 ; Dizziness R42 and Fatigue 780.[address] [address] Aug, Major depressive disorder, recurrent epi sode, [...] [facility] [address] [facility]NOTE 3] [id number] [address] [place] [address] Aug, Ingrown right big toenail L6 0.0 [facility] [address] [address] Aug, [place] [address] [address] Aug, PTSD (post-traumatic stress disorder) F4 3.10 [place] [address] [address] Aug, Major depressive disorder, recurrent epi sode, moderate F33.1 ; Generalized anxiety disorder F41.1 and Cannabis abuse F12.10 [facility] [address] [address] Jul, [facility] [address] [address] Jul, [place] [address] [address] Jul, [place] [address] [address] Jul, Major depressive disorder, recurrent epi sode, moderate F33.1 ; Generalized anxiety disorder F41.1 and Cannabis abuse F12.10 [place] [address] [address] Jul, [place] [address] [address] Jul, [place] [address] [address] Jul, Hyperlipidemia 272.4 [place] [address] [address] Jul, PTSD (post-traumatic stress disorder) F4 3.10 [place] [address] [address] Jul, Tobacco use Z72.0 ; Alcohol use [...] F41.1 and Cannabis abuse F12.10 [place] [address] [address] Jul, [address] [address] Jul, Dysuria R30.0 and Mixed hyperlipidemia E 78.[address] [address] Jun, Major depressive disorder, recurrent epi sode, moderate F33.1 ; Generalized anxiety disorder F41.1 and Cannabis abuse F12.[address] [address] Jun, [address] [address] Jun, Generalized anxiety disorder F41.1 ; Blayne [...] remission F14.21 and Tobacco use Z72.[address] [address] Jun, Major depressive disorder, recurrent epi sode, moderate F33.1 ; Generalized anxiety disorder F41.1 and Cannabis abuse F12.10 [facility] [address] [address] Jun, [facility] [address] [address] Jun, [facility] [address] [address] Jun, Major depressive disorder, recurrent epi sode, moderate F33.1 ; Generalized anxiety disorder F41.1 and Cannabis abuse F12.10 [facility] [address] [id number] Mar, Dental examination Z01.20 [facility] [address] [id number] Feb, Dental examination Z01.20 [place] [address] [address] Mar, [place] [address] [address] Mar, [facility] [address] [address] Feb, Hyperlipidemia 272.4 and Prediabetes 790 .29 [place] [address] [address] Feb, Fatigue 780.79 and Hyperlipidemia 272.[address] [address] Feb, Lumbago 724.2 ; Hyperlipidemia 272.4 ; I nsomnia 780.52 and Fatigue 780.79 [place] [address] [address] Nov, [place] [address] [address] Nov, [facility] [address] [address] Mar, [place] [address] [address] Mar, [facility] [address] [id number] [place] [address] Jan, [facility] [address] [id number] [place] [address] Jan, [facility] [address] [id number] [place] [address] December, [facility] [address] [id number] [place] [address] December, [facility] [address] [facility]NOTE 3] [id number] [place] [address] Nov, [facility] [address] [id number] [place] [address] Nov, [facility] [address] [id number] [place] [address] Nov, [facility] [address] [id number] [place] [address] Nov, [facility] [address] [id number] [place] [address] Nov, [facility] [address] [id number] [place] [address] Nov, [facility] [address] [id number] [place] [address] Oct, [facility] [address] [id number] [place] [address] Oct, [facility] [address] [id number] [place] [address] Oct, [facility] [address] [id number] [place] [address] Oct, [facility] [address] [id number] [place] [address] Oct, [facility] [address] [id number] [place] [address] Oct, [facility] [address] [id number] [place] [address] Oct, [facility] [address] [facility]NOTE 3] [id number] [place] [address] Oct, [facility] [address] [facility]NOTE 3] [id number] [place] [address] Oct, [facility] [address] [id number] [facility] [address] Oct, [facility] [address] [id number] [facility] [address] Oct, [facility] [address] [facility]NOTE 3] [id number] [facility] [address] Oct, [facility] [address] [id number] [facility] [address] Oct, [facility] [address] [id number] [place] [address] Sep, [facility] [address] [id number] [place] [address] 24 Sep, 2013 [facility] [address] [id number] [facility] [address] Sep, [facility] [address] [id number] [place] [address] Sep, [facility] [address] [id number] [place] [address] Sep, [facility] [address] [id number] [place] [address] Sep, [facility] [address] [id number] [place] [address] 18 Sep, 2013 [facility] [address] [id number] [place] [address] 18 Sep, 2013 [facility] [address] [id number] [place] [address] 14 Sep, 2013 [facility] [address] [id number] [place] [address] 14 Sep, 2013 [facility] [address] [id number] [place] [address] 14 Sep, 2013 [facility] [address] [id number] [place] [address] 14 Sep, 2013 [facility] [address] [id number] [place] [address] 14 Sep, 2013 [facility] [address] [id number] [place] [address] 14 Sep, 2013 [facility] [address] [id number] [place] [address] 13 Sep, 2013 [facility] [address] [id number] [place] [address] Sep, [facility] [address] [id number] [place] [address] Sep, [facility] [address] [id number] [place] [address] Sep, [facility] [address] [id number] [place] [address] Sep, [facility] [address] [id number] [place] [address] Sep, [facility] [address] [id number] [place] [address] Aug, [facility] [address] [id number] [place] [address] Aug, [facility] [address] [id number] [place] [address] Aug, [facility] [address] [id number] [place] [address] Aug, [facility] [address] [id number] [place] [address] Aug, [facility] [address] [id number] [place] [address] Jul, [facility] [address] [id number] [place] [address] 31 Jul, 2012 [facility] [address] [id number] [place] [address] Jul, [facility] [address] [id number] [place] [address] Jul, [facility] [address] [id number] [place] [address] Jul, [facility] [address] [id number] [place] [address] Jul, [facility] [address] [id number] [place] [address] Jul, [facility] [address] [id number] [place] [address] Jul, [facility] [address] [id number] [place] [address] Jul, [facility] [address] [id number] [place] [address] Jun, [facility] [address] [id number] [place] [address] Jun, [facility] [address] [id number] [place] [address] Jun, [facility] [address] [id number] [place] [address] Jun, [facility] [address] [id number] [place] [address] Jun, [facility] [address] [id number] [place] [address] Jun, [facility] [address] [id number] [place] [address] Jun, [facility] [address] [id number] [place] [address] Jun, [facility] [address] [id number] [place] [address] Jun, [facility] [address] [id number] [place] [address] Jun, [facility] [address] [id number] [place] [address] May, [facility] [address] [id number] [place] [address] May, [facility] [address] [id number] [place] [address] May, [facility] [address] [facility]NOTE 3] [id number] [place] [address] May, [facility] [address] [id number] [place] [address] May, [facility] [address] [id number] [place] [address] May, [facility] [address] [id number] [place] [address] May, [facility] [address] [id number] [place] [address] May, [facility] [address] [id number] [place] [address] May, [facility] [address] [id number] [place] [address] 26 Apr, 2012 [facility] [address] [id number] [place] [address] 16 Apr, 2013 [facility] [address] [id number] [place] [address] 12 Apr, 2012 [facility] [address] [id number] [place] [address] 06 Apr, 2013 [facility] [address] [id number] [place] [address] 30 Mar, 2013 [facility] [address] [id number] [place] [address] Mar, [facility] [address] [id number] [place] [address] Mar, [facility] [address] [id number] [place] [address] Mar, [facility] [address] [facility][NOTE 3] [id number] [facility] [place] [address] Mar, [facility] [place] [facility] [address] [id number] [facility] [place] [address] Mar, [facility] [place] [facility] [address] [id number] [place] [address] Mar, [facility] [place] [facility] [address] [facility][NOTE 3] [id number] [place] [address] Feb, [facility] [place] [facility] [address] [id number] [place] [address] Feb, [facility] [place] [facility] [address] [id number] [facility] [place] [address] Feb, [facility] [place] [facility] [address] [id number] [facility] [place] [address] Feb, [facility] [place] [facility] [address] [id number] [facility] [place] [address] Feb, [facility] [place] [facility] [address] [id number] [place] [address] Feb, [facility] [place] [facility] [address] [id number] [place] [address] Feb, [facility] [place] [facility] [address] [id number] [place] [address] Feb, [facility] [place] [facility] [address] [facility][NOTE 3] [id number] [facility] [address] Feb, [facility] [place] [facility] [address] [id number] [place] [address] Feb, [facility] [place] [facility] [address] [id number] [place] [address] Feb, [facility] [place] [facility] [address] [id number] [place] [address] Jan, [facility] [place] [facility] [address] [id number] [place] [address] Jan, [facility] [address] [id number] [place] [address] December, [facility] [place] [facility] [address] [id number] [place] [address] December, [facility] [place] [facility] [address] [id number] [place] [address] Nov, [facility] [place] [facility] [address] [id number] [place] [address] Nov, [facility] [place] [facility] [address] [id number] [place] [address] Oct, [facility] [place] [facility] [address] [id number] [place] [address] Oct, [facility] [place] [facility] [address] [id number] [place] [address] Oct, [facility] [place] [facility] [address] [id number] [place] [address] Oct, [facility] [place] [facility] [address] [id number] [place] [address] Sep, [facility] [place] [facility] [address] [id number] [place] [address] Sep, [facility] [place] [facility] [address] [id number] [place] [address] Sep, [facility] [place] [facility] [address] [id number] [place] [address] Sep, [facility] [address] [id number] [place] [address] Aug, [facility] [address] [id number] [place] [address] Aug, [facility] [address] [id number] [place] [address] Jul, [facility] [address] [id number] [place] [address] Jul, [facility] [address] [id number] [place] [address] Jul, [facility] [address] [id number] [place] [address] Jul, [facility] [address] [id number] [place] [address] Jul, [facility] [address] [id number] [place] [address] Jul, [facility] [address] [id number] [place] [address] Jun, [facility] [address] [id number] [place] [address] Jun, [facility] [address] [id number] [place] [address] Jun, [facility] [address] [id number] [place] [address] Jun, [facility] [address] [id number] [place] [address] Jun, [facility] [address] [id number] [place] [address] May, [facility] [address] [id number] [place] [address] May, [facility] [address] [id number] [place] [address] May, [facility] [address] [id number] [place] [address] May, [facility] [address] [id number] [place] [address] May, [facility] [address] [id number] [place] [address] May, [facility] [address] [id number] [place] [address] May, [facility] [address] [id number] [place] [address] May, [facility] [address] [id number] [facility] [address] Mar, [facility] [address] [id number] [place] [address] Mar, [facility] [address] [id number] [place] [address] Mar, [facility] [address] [id number] [place] [address] Feb, [facility] [address] [id number] [place] [address] Feb, [facility] [address] [id number] [place] [address] Feb, [facility] [address] [id number] [place] [address] Feb, [facility] [address] [id number] [place] [address] Jan, [facility] [address] [id number] [place] [address] Jan, [facility] [address] [id number] [place] [address] Jan, [facility] [address] [id number] [place] [address] December, [facility] [address] [id number] [place] [address] Nov, [facility] [address] [id number] [place] [address] Oct, [facility] [address] [id number] [place] [address] Oct, [facility] [address] [id number] [place] [address] Oct, [facility] [address] [id number] [place] [address] Oct, [facility] [address] [id number] [place] [address] Aug, [facility] [address] [id number] [place] [address] Aug, [facility] [address] [id number] [place] [address] Aug, [facility] [address] [id number] [place] [address] Aug, [facility] [address] [id number] [place] [address] Aug, [facility] [address] [id number] [place] [address] Aug, [facility] [address] [id number] [place] [address] Aug, [facility] [address] [id number] [place] [address] Aug, [facility] [address] [id number] [place] [address] Jul, [facility] [address] [id number] [place] [address] Jun, [facility] [address] [id number] [place] [address] Jun, [facility] [address] [id number] [place] [address] 31 Jul, 2010 [facility] [address] [id number] [place] [address] Jul, [facility] [address] [id number] [place] [address] Jul, [facility] [address] [id number] [place] [address] 14 Jul, 2010 [facility] [address] [id number] [place] [address] 14 Jul, 2010 [facility] [address] [id number] [place] [address] Jun, [facility] [address] [id number] [place] [address] May, [facility] [address] [id number] [place] [address] Mar, [facility] [address] [id number] [place] [address] Oct, [facility] [id number] [place] [address] Aug, [facility] [id number] [place] [address] Jul, [facility] [id number] [place] [address] Jul, [facility] [address] [id number] [place] [address] Jun, [facility] [id number] [place] [address] Jun, [facility] [address] [id number] [place] [address] May, [facility] [id number] [place] [address] May, [facility] [id number] [place] [address] Mar, [facility] [id number] [place] [address] Mar, [facility] [id number] [place] [address] 10 Oct, 2008 IMMUNIZATIONS No Known Immunizations [...] replacement L1- L5 - Dr Benito pantoja ([place]) Surgical History appendectomy 1983 Surgical History hysterectomy 1993 Surgical History dilatation and curettage Surgical History heart cath- Dr Shaw [address] Solano bowel and intestines seperated [address] solano removed skin tag and cyst 2017 Surgical History Colonoscopy and upper GI 04/2019 Surgical History endoscopy 08/13/19 Hospitalization History Hospitalization for surgery only
--- OUTSIDE RECORDS SUMMARY | 2019-11-08 08:46 | XMS REPORT ---
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 Active 77318442 Problem Opioid use disorder, moderate, in sustained remission F11.21 Active 93107296 Problem Tobacco use Z72.0 Active 97925732 8 Problem Cocaine use disorder, moderate, in sustained remission F14.21 Active 75735920 Problem GERD with esophagitis K21.0 Active 711505960 Problem Prediabetes 790.29 Active 9316761 Problem PTSD (post-traumatic stress disorder) F43.10 Active 27913431 Problem Bipolar disorder F31.9 Active 137 44374 Problem Gastroesophageal reflux disease, esophagitis pre sence not specified K21.9 Active 426371429 Problem Menopausal disorder N95.9 Active 064834096 Problem Insomnia, unspecified type G47.00 Act avelina 211453689 Problem Cigarette nicotine dependence without complication F17.210 Active 60910579 Problem Cannabis abuse F12.10 Active 57485 009 Problem Irritable bowel syndrome with diarrhea K58.0 Active 134247186 Problem Acute pain of left shoulder M25.512 Ac tive 83057551 Problem Mixed hyperlipidemia E78.2 Active 240343648 Problem Generalized anxiety disorder F41.1 A ctive 09675314 Problem Arthritis M19.90 Active 3630785 Problem Other chronic pain G89.29 Active 8 3997112 Problem Fibromyalgia M79.7 Active 1501740 05 Problem Perimenopausal vasomotor symptoms N95.1 Active 351750197 ALLERGIES No Information ENCOUNTERS Encounter Location Date Diagnosis [place] [address] [address] 14 Sep, 2019 [facility] [address] [facility] [address] 24 May, 2019 Dental examination Z01.20 and Caries K02.9 [place] [address] [address] 08 May, 2019 Right upper quadrant pain R10.11 and Mix ed hyperlipidemia E78.2 [place] [address] [address] Mar, Perimenopausal vasomotor symptoms N95.1 [place] [address] [address] Mar, [place] [address] [address] Mar, [place] [address] [address] Mar, [place] [address] [address] Mar, Perimenopausal vasomotor symptoms N95.1 ; Irritable bowel syndrome with diarrhea K58.0 ; Insomnia, unspecified type G47.00 and Weight gain R63.5 [place] [address] [address] Feb, [place] [address] [address] Feb, [place] [address] [address] Jan, [place] [address] [address] Jan, Fibromyalgia M79.7 ; Insect bite (nonven omous) of lower back and pelvis, sequela S30.860S ; Bitten or stung by nonvenomous insect and other nonvenomous arthropods, sequela W57.XXXS ; Arthritis M19.90 and Menopausal disorder N95.9 [place] [address] [address] 14 Jan, 2019 [place] [address] [address] 04 Jan, 2019 Mixed hyperlipidemia E78.2 [place] [address] [address] December, Screening for breast cancer Z12.31 and B reast lump N63.0 [place] [address] [address] December, Chest pain, unspecified type R07.9 [place] [address] [address] December, Chest pain, unspecified type R07.9 ; Gas troesophageal reflux disease, esophagitis presence not specified K21.9 and Left breast lump N63.20 [place] [address] [address] December, [facility] [address] [facility] [id number] [address] [place] [address] December, Suprapubic abdominal pain R1 0.2 and Dysuria R30.0 [place] [address] [address] December, [place] [address] [address] 07 Dec, 2018 Cannabis abuse F12.10 ; Generalized anxi ety disorder F41.1 ; Methamphetamine use disorder, severe, in sustained remission F15.21 ; Alcohol use disorder, mild, in sustained remission F10.11 ; PTSD (post-traumatic stress disorder) F43.10 ; Cocaine use disorder, moderate, in sustained remission F14.21 and Bipolar disorder F31.9 [place] [address] [address] 15 Nov, 2018 Major depressive disorder, recurrent epi sode, moderate F33.1 ; Cannabis abuse F12.10 ; Generalized anxiety disorder F41.1 ; Methamphetamine use disorder, severe, in sustained remission F15.21 ; Alcohol use disorder, mild, in sustained remission F10.11 ; PTSD (post-traumatic stress disorder) F43.10 and Cocaine use disorder, moderate, in sustained remission F14.21 [facility] [place] [address] [address] Oct, Major depressive disorder, recurrent epi sode, moderate F33.1 ; Cannabis abuse F12.10 ; Generalized anxiety disorder F41.1 ; Methamphetamine use disorder, severe, in sustained remission F15.21 ; Alcohol use disorder, mild, in sustained remission F10.11 ; PTSD (post-traumatic stress disorder) F43.10 and Cocaine use disorder, moderate, in sustained remission F14.21 [place] [address] [address] Sep, Major depressive disorder, recurrent epi sode, moderate F33.1 [facility] [address] [place] [id number] [place] [id number] Aug, [facility] [place] [address] [address] Jul, Dysuria R30.[address] [address] Jul, Major depressive disorder, recurrent epi sode, moderate F33.1 [place] [address] [address] Jun, Major depressive disorder, recurrent epi sode, moderate F33.1 [facility] [place] [address] [address] Jun, Major depressive disorder, recurrent epi sode, moderate F33.1 [facility] [place] [address] [place] [address] Jun, Acute pain of left shoulder M25.512 and Cigarette nicotine dependence without complication F17.210 [facility] [place] [address] [address] May, [place] [address] [address] 29 May, 2018 Cocaine use disorder, moderate, in susta ined remission F14.21 [facility] [place] [address] [address] May, [facility] [address] [place] [address] [facility], [place] [address] May, Dental examination Z01.20 [facility] [address] [id number] 09 May, 2018 Dental examination Z01.20 and Caries K02 .9 [facility] [place] [address] [address] May, Common wart B07.8 [facility] [place] [address] [address] May, [facility] [place] [address] [address] 27 Apr, 2018 Cocaine use disorder, moderate, in susta ined remission F14.21 [facility] [place] [address] [address] 14 Apr, 2018 [facility] [address] [id number] 13 Apr, 2018 Dental examination Z01.20 [facility] [address] [id number] 10 Mar, 2018 Encounter for dental exam and cleaning w /o abnormal findings Z01.20 [facility] [place] [address] [address] Mar, [facility] [place] [address] [address] Feb, Cocaine use disorder, moderate, in susta [...] disorder, recurrent episode, moderate F33.1 [place] [address] [address] Jan, Cocaine use disorder, moderate, in susta ined remission F14.21 [facility] [place] [address] [address] Jan, Cocaine use disorder, moderate, in susta [...] disorder, recurrent episode, moderate F33.1 [place] [address] [address] Jan, Dysuria R30.0 and GERD with esophagitis K21.0 [place] [address] [address] December, Major depressive disorder, recurrent epi sode, moderate F33.1 [place] [address] [address] December, [facility] [place] [address] [address] December, Major depressive disorder, recurrent epi sode, [...] sustained remission F10.11 and Tobacco use Z72.0 [facility] [place] [address] [address] Nov, [facility] [address] [place] [id number] [address] 04 Nov, 2017 [facility] [place] [address] [place] [id number] [place] [address] Nov, Wellness examination Z00.00 ; Encounter for immunization Z23 ; Screening for osteoporosis Z13.820 ; Screening for breast cancer Z12.31 and Left breast lump N63.20 [facility] [address] [facility] [place] [id number] Oct, Dental examination Z01.20 [facility] [place] [address] [place] [id number] [place] [address] 21 Oct, 2017 [place] [address] [address] 08 Oct, 2017 [facility] [place] [address] [place] [id number] [place] [address] 16 Sep, 2017 [facility] [place] [address] [address] 15 Sep, 2017 [facility] [place] [address] [place] [id number] [place] [address] 14 Sep, 2017 Left otitis media with effusion H65.92 ; Acute suppurative otitis media of right ear without spontaneous rupture of tympanic membrane, recurrence not specified H66.001 ; Dizziness R42 and Fatigue 780.79 [facility] [place] [address] [place] [id number] [place] [address] Aug, Major depressive disorder, recurrent epi sode, [...] and Tobacco use Z72.0 [facility] [address] [facility] [id number] [address] [place] [address] Aug, Ingrown right big toenail L6 0.0 [place] [address] [address] Aug, [place] [address] [place] [address] Aug, PTSD (post-traumatic stress disorder) F4 3.10 [place] [address] [address] Aug, Major depressive disorder, recurrent epi sode, moderate F33.1 ; Generalized anxiety disorder F41.1 and Cannabis abuse F12.10 [place] [address] [address] Jul, [place] [address] [address] Jul, [place] [address] [address] Jul, [place] [address] [address] Jul, Major depressive disorder, recurrent epi sode, moderate F33.1 ; Generalized anxiety disorder F41.1 and Cannabis abuse F12.10 [place] [address] [address] Jul, [place] [address] [address] Jul, [place] [address] [address] Jul, Hyperlipidemia 272.4 [place] [address] [address] Jul, PTSD (post-traumatic stress disorder) F4 3.10 [place] [address] [place] [address] 14 Jul, 2017 Tobacco use Z72.0 ; Alcohol use disorder [...] F41.1 and Cannabis abuse F12.10 [place] [address] [address] Jul, [place] [address] [address] Jul, Dysuria R30.0 and Mixed hyperlipidemia E 78.[address] [address] Jun, Major depressive disorder, recurrent epi sode, moderate F33.1 ; Generalized anxiety disorder F41.1 and Cannabis abuse F12.10 [place] [address] [address] Jun, [address] [address] Jun, Generalized anxiety disorder F41.1 ; Blayne [...] F14.21 and Tobacco use Z72.0 [place] [address] [address] Jun, Major depressive disorder, recurrent epi sode, moderate F33.1 ; Generalized anxiety disorder F41.1 and Cannabis abuse F12.10 [place] [address] [address] Jun, [address] [address] Jun, [address] [address] Jun, Major depressive disorder, recurrent epi sode, moderate F33.1 ; Generalized anxiety disorder F41.1 and Cannabis abuse F12.10 [facility] [address] [id number] [place] [id number] Mar, Dental examination Z01.20 [facility] [address] [id number] Feb, Dental examination Z01.20 [facility] [place] [address] [address] Mar, [facility] [place] [address] [address] Mar, [facility] [place] [address] [address] Feb, Hyperlipidemia 272.4 and Prediabetes 790 .29 [facility] [place] [address] [address] Feb, Fatigue 780.79 and Hyperlipidemia 272.4 [facility] [place] [address] [address] Feb, Lumbago 724.2 ; Hyperlipidemia 272.4 ; I nsomnia 780.52 and Fatigue 780.79 [facility] [place] [address] [address] Nov, [facility] [place] [address] [address] Nov, [facility] [place] [address] [address] Mar, [facility] [place] [address] [address] Mar, [facility] [place] [address] [address] Jan, [facility] [place] [address] [address] Jan, [facility] [place] [address] [address] December, [facility] [place] [address] [place] [address] [place] [address] December, [facility] [address] [facility] [id number] [facility] [place] [address] 30 Nov, 2013 [facility] [address] [id number] [place] [address] Nov, [facility] [address] [id number] [facility] [place] [address] Nov, [facility] [address] [id number] [place] [address] Nov, [facility] [address] [facility] [id number] [facility] [place] [address] Nov, [facility] [address] [id number] [place] [address] Nov, [facility] [address] [id number] [place] [address] Oct, [facility] [address] [id number] [place] [address] 31 Oct, 2013 [facility] [address] [id number] [place] [address] Oct, [facility] [address] [id number] [place] [address] Oct, [facility] [address] [id number] [place] [address] Oct, [facility] [address] [id number] [place] [address] Oct, [facility] [address] [id number] [place] [address] Oct, [facility] [address] [id number] [place] [address] Oct, [facility] [address] [id number] [place] [address] Oct, [facility] [address] [id number] [place] [address] Oct, [facility] [address] [id number] [place] [address] Oct, [facility] [address] [id number] [place] [address] Oct, [facility] [address] [id number] [place] [address] Oct, [facility] [address] [id number] [place] [address] 24 Sep, 2013 [facility] [address] [id number] [place] [address] 24 Sep, 2013 [facility] [address] [id number] [place] [address] 20 Sep, 2013 [facility] [address] [id number] [place] [address] 20 Sep, 2013 [facility] [address] [id number] [place] [address] 20 Sep, 2013 [facility] [address] [id number] [place] [address] 20 Sep, 2013 [facility] [address] [id number] [place] [address] 18 Sep, 2013 [facility] [address] [id number] [place] [address] 18 Sep, 2013 [facility] [address] [id number] [place] [address] 14 Sep, 2013 [facility] [address] [id number] [place] [address] 14 Sep, 2013 [facility] [address] [id number] [place] [address] 14 Sep, 2013 [facility] [address] [id number] [place] [address] 14 Sep, 2013 [facility] [address] [id number] [place] [address] 14 Sep, 2013 [facility] [address] [facility] [id number] [place] [address] 14 Sep, 2013 [facility] [address] [id number] [place] [address] Sep, [facility] [address] [id number] [place] [address] Sep, [facility] [address] [id number] [place] [address] Sep, [facility] [address] [id number] [place] [address] Sep, [facility] [address] [id number] [place] [address] Sep, [facility] [address] [id number] [place] [address] Sep, [facility] [address] [id number] [place] [address] Aug, [facility] [address] [id number] [place] [address] Aug, [facility] [address] [id number] [place] [address] Aug, [facility] [address] [id number] [place] [address] Aug, [facility] [address] [id number] [place] [address] Aug, [facility] [address] [id number] [place] [address] Jul, [facility] [address] [id number] [place] [address] Jul, [facility] [address] [id number] [place] [address] Jul, [facility] [address] [id number] [place] [address] Jul, [facility] [address] [id number] [place] [address] Jul, [facility] [address] [id number] [place] [address] Jul, [facility] [address] [id number] [place] [address] Jul, [facility] [address] [id number] [place] [address] Jul, [facility] [address] [id number] [place] [address] Jul, [facility] [address] [id number] [place] [address] Jun, [facility] [address] [id number] [place] [address] Jun, [facility] [address] [id number] [place] [address] Jun, [facility] [address] [id number] [place] [address] Jun, [facility] [address] [id number] [place] [address] Jun, [facility] [address] [id number] [place] [address] Jun, [facility] [address] [id number] [place] [address] Jun, [facility] [address] [id number] [place] [address] Jun, [facility] [address] [id number] [place] [address] Jun, [facility] [address] [id number] [place] [address] Jun, [facility] [address] [id number] [place] [address] May, [facility] [address] [id number] [place] [address] May, [facility] [address] [id number] [place] [address] May, [facility] [address] [id number] [place] [address] 22 May, 2013 [facility] [address] [facility] [id number] [place] [address] 16 May, 2013 [facility] [address] [id number] [place] [address] May, [facility] [address] [id number] [place] [address] May, [facility] [address] [facility] [id number] [place] [address] May, [facility] [address] [id number] [place] [address] May, [facility] [address] [id number] [place] [address] Apr, [facility] [address] [id number] [place] [address] 16 Apr, 2013 [facility] [address] [id number] [place] [address] Apr, [facility] [address] [id number] [place] [address] Apr, [facility] [address] [id number] [place] [address] Mar, [facility] [address] [id number] [place] [address] Mar, [facility] [address] [facility] [id number] [place] [address] Mar, [facility] [address] [id number] [place] [address] Mar, [facility] [address] [id number] [place] [address] Mar, [facility] [address] [id number] [place] [address] Mar, [facility] [address] [id number] [place] [address] Mar, [facility] [address] [id number] [place] [address] Feb, [facility] [address] [id number] [place] [address] Feb, [facility] [address] [id number] [place] [address] Feb, [facility] [address] [facility] [id number] [place] [address] Feb, [facility] [address] [id number] [place] [address] Feb, [facility] [address] [id number] [place] [address] Feb, [facility] [address] [id number] [place] [address] Feb, [facility] [address] [id number] [place] [address] Feb, [facility] [address] [id number] [place] [address] Feb, [facility] [address] [id number] [place] [address] Feb, [facility] [id number] [place] [address] Feb, [facility] [id number] [place] [address] Jan, [facility] [address] [facility] [id number] [place] [address] Jan, [facility] [id number] [place] [address] December, [facility] [id number] [place] [address] December, [facility] [id number] [place] [address] Nov, [facility] [id number] [place] [address] Nov, [facility] [id number] [place] [address] Oct, [facility] [id number] [place] [address] Oct, [facility] [id number] [place] [address] Oct, [facility] [address] [facility] [id number] [place] [address] Oct, [facility] [id number] [place] [address] Sep, [facility] [id number] [place] [address] Sep, [facility] [id number] [place] [address] Sep, [facility] [id number] [place] [address] Sep, [facility] [id number] [place] [address] Aug, [facility] [id number] [place] [address] Aug, [facility] [id number] [place] [address] Jul, [facility] [id number] [place] [address] Jul, [facility] [id number] [place] [address] Jul, [facility] [id number] [place] [address] Jul, [facility] [id number] [place] [address] Jul, [facility] [id number] [place] [address] Jul, [facility] [id number] [place] [address] Jun, [facility] [id number] [place] [address] Jun, [facility] [id number] [place] [address] Jun, [facility] [id number] [place] [address] Jun, [facility] [address] [id number] [place] [address] Jun, [facility] [id number] [place] [address] May, [facility] [id number] [place] [address] May, [facility] [id number] [place] [address] May, [facility] [id number] [place] [address] May, [facility] [id number] [place] [address] May, [facility] [id number] [place] [address] May, [facility] [id number] [place] [address] May, [facility] [id number] [place] [address] May, [facility] [id number] [place] [address] Mar, [facility] [id number] [place] [address] Mar, [facility] [id number] [place] [address] Mar, [facility] [id number] [place] [address] Feb, [facility] [id number] [place] [address] Feb, [facility] [id number] [place] [address] Feb, [facility] [id number] [place] [address] Feb, [facility] [id number] [place] [address] Jan, [facility] [id number] [place] [address] Jan, [facility] [id number] [place] [address] Jan, [facility] [id number] [place] [address] December, [facility] [id number] [place] [address] Nov, [facility] [id number] [place] [address] Oct, [facility] [id number] [place] [address] Oct, [facility] [id number] [place] [address] Oct, [facility] [id number] [place] [address] Oct, [facility] [id number] [place] [address] Aug, [facility] [id number] [place] [address] Aug, [facility] [id number] [place] [address] Aug, [facility] [id number] [place] [address] Aug, [facility] [address] [facility] [id number] [place] [address] Aug, [facility] [id number] [place] [address] Aug, [facility] [id number] [place] [address] Aug, [facility] [id number] [place] [address] Aug, [facility] [address] [facility] [id number] [place] [address] Jul, [facility] [id number] [place] [address] Jun, [facility] [id number] [place] [address] Jun, [facility] [id number] [place] [address] Jul, [facility] [id number] [place] [address] Jul, [facility] [id number] [place] [address] Jul, [facility] [id number] [place] [address] 14 Jul, 2010 [facility] [id number] [place] [address] 14 Jul, 2010 [facility] [id number] [place] [address] 24 Jun, 2010 [facility] [id number] [place] [address] May, [facility] [id number] [place] [address] Mar, [facility] [id number] [place] [address] Oct, [facility] [id number] [place] [address] Aug, [facility] [place] [id number] [place] [address] Jul, [facility] [place] [id number] [place] [address] Jul, [facility] [place] [address] [address] Jun, [facility] [place] [address] [address] Jun, [facility] [place] [address] [address] May, [facility] [place] [address] [address] May, [facility] [place] [address] [address] Mar, [facility] [place] [address] [address] Mar, [facility] [place] [id number] [place] [address] Oct, IMMUNIZATIONS No Known Immunizations SOCIAL HISTORY [...] Medical History endometriosis/fibroids Surgical History carpal tunnel release- bilateral- Dr Fish ordaz Surgical History Upper Lateral Release- Tennis Elbow- Dr Marquez Surgical History rotator cuff tear repair on left and right shoulder-- done at different times (2 years apart) - Dr Marquez Surgical History Spinal disc replacement L1- L5 - Dr Benito pantoja ([place]) Surgical History appendectomy 1983 Surgical History hysterectomy 1993 Surgical History dilatation and curettage Surgical History heart cath- Dr Shaw [address] Solano bowel and intestines seperated [address] solano removed skin tag and cyst 2017 Surgical History Colonoscopy 04/2019 Hospitalization History Hospitalization for surgery only
--- OUTSIDE RECORDS SUMMARY | 2019-11-08 08:46 | XMS REPORT ---
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 Active 47707434 Problem Opioid use disorder, moderate, in sustained remission F11.21 Active 87683338 Problem Tobacco use Z72.0 Active 37665461 8 Problem Cocaine use disorder, moderate, in sustained remission F14.21 Active 84551213 Problem GERD with esophagitis K21.0 Active 415132363 Problem Prediabetes 790.29 Active 7354196 Problem PTSD (post-traumatic stress disorder) F43.10 Active 63736988 Problem Bipolar disorder F31.9 Active 137 18066 Problem Gastroesophageal reflux disease, esophagitis pre sence not specified K21.9 Active 121005162 Problem Menopausal disorder N95.9 Active 807454578 Problem Insomnia, unspecified type G47.00 Act avelina 914964201 Problem Cigarette nicotine dependence without complication F17.210 Active 24646386 Problem Cannabis abuse F12.10 Active 43718 009 Problem Irritable bowel syndrome with diarrhea K58.0 Active 360625110 Problem Acute pain of left shoulder M25.512 Ac tive 73610694 Problem Mixed hyperlipidemia E78.2 Active 971328236 Problem Generalized anxiety disorder F41.1 A ctive 66952714 Problem Arthritis M19.90 Active 8191446 Problem Other chronic pain G89.29 Active 8 2319919 Problem Fibromyalgia M79.7 Active 1280578 05 Problem Perimenopausal vasomotor symptoms N95.1 Active 564658209 ALLERGIES No Information ENCOUNTERS Encounter Location Date Diagnosis [place] [address] [address] Oct, [place] [address] [address] 14 Sep, 2019 Major depressive disorder, recurrent epi sode, moderate F33.1 ; Generalized anxiety disorder F41.1 ; Irritable bowel syndrome with diarrhea K58.0 and Epigastric abdominal pain R10.13 [facility] [address] [id number] [address] 24 May, 2019 Dental examination Z01.20 and Caries K02.9 [place] [address] [address] May, Right upper quadrant pain R10.11 and Mix ed hyperlipidemia E78.2 [place] [address] [address] Mar, Perimenopausal vasomotor symptoms N95.1 [place] [address] [address] Mar, [place] [address] [address] Mar, [place] [address] [address] Mar, [place] [address] [address] Mar, Perimenopausal vasomotor symptoms N95.1 ; Irritable bowel syndrome with diarrhea K58.0 ; Insomnia, unspecified type G47.00 and Weight gain R63.5 [place] [address] [address] Feb, [place] [address] [address] Feb, [place] [address] [address] Jan, [place] [address] [address] Jan, Fibromyalgia M79.7 ; Insect bite (nonven omous) of lower back and pelvis, sequela S30.860S ; Bitten or stung by nonvenomous insect and other nonvenomous arthropods, sequela W57.XXXS ; Arthritis M19.90 and Menopausal disorder N95.9 [place] [address] [address] Jan, [place] [address] [place] [address] Jan, Mixed hyperlipidemia E78.[address] [address] December, Screening for breast cancer Z12.31 and B reast lump N63.0 [place] [address] [address] December, Chest pain, unspecified type R07.9 [place] [address] [address] December, Chest pain, unspecified type R07.9 ; Gas troesophageal reflux disease, esophagitis presence not specified K21.9 and Left breast lump N63.20 [place] [address] [address] December, [facility] [address] [facility] [id number] [address] [place] [address] December, Suprapubic abdominal pain R1 0.2 and Dysuria R30.0 [place] [address] [address] December, [address] [address] December, Cannabis abuse F12.10 ; Generalized anxi ety disorder F41.1 ; Methamphetamine use disorder, severe, in sustained remission F15.21 ; Alcohol use disorder, mild, in sustained remission F10.11 ; PTSD (post-traumatic stress disorder) F43.10 ; Cocaine use disorder, moderate, in sustained remission F14.21 and Bipolar disorder F31.9 [facility] [address] [place] [id number] [place] [address] Nov, Major depressive disorder, recurrent epi sode, moderate F33.1 ; Cannabis abuse F12.10 ; Generalized anxiety disorder F41.1 ; Methamphetamine use disorder, severe, in sustained remission F15.21 ; Alcohol use disorder, mild, in sustained remission F10.11 ; PTSD (post-traumatic stress disorder) F43.10 and Cocaine use disorder, moderate, in sustained remission F14.21 [facility] [address] [address] Oct, Major depressive disorder, recurrent epi sode, moderate F33.1 ; Cannabis abuse F12.10 ; Generalized anxiety disorder F41.1 ; Methamphetamine use disorder, severe, in sustained remission F15.21 ; Alcohol use disorder, mild, in sustained remission F10.11 ; PTSD (post-traumatic stress disorder) F43.10 and Cocaine use disorder, moderate, in sustained remission F14.21 [facility] [address] [address] Sep, Major depressive disorder, recurrent epi sode, moderate F33.1 [facility] [address] [id number] [place] [id number] Aug, [facility] [address] [address] Jul, Dysuria R30.0 [facility] [address] [address] Jul, Major depressive disorder, recurrent epi sode, moderate F33.1 [facility] [address] [address] Jun, Major depressive disorder, recurrent epi sode, moderate F33.1 [facility] [address] [address] Jun, Major depressive disorder, recurrent epi sode, moderate F33.1 [facility] [address] [address] Jun, Acute pain of left shoulder M25.512 and Cigarette nicotine dependence without complication F17.210 [facility] [address] [address] May, [facility] [address] [address] May, Cocaine use disorder, moderate, in susta ined remission F14.21 [facility] [address] [address] May, [facility] [address] [place] [id number] [address] May, Dental examination Z01.20 [facility] [address] [id number] May, Dental examination Z01.20 and Caries K02 .9 [place] [address] [address] May, Common wart B07.8 [facility] [address] [address] May, [facility] [address] [address] 27 Apr, 2018 Cocaine use disorder, moderate, in susta ined remission F14.21 [facility] [address] [address] 14 Apr, 2018 [facility] [address] [id number] 13 Apr, 2018 Dental examination Z01.20 [facility] [address] [id number] Mar, Encounter for dental exam and cleaning w /o abnormal findings Z01.20 [facility] [address] [address] Mar, [facility] [address] [address] Feb, Cocaine use disorder, moderate, in susta [...] Major depressive disorder, recurrent episode, moderate F33.1 [place] [address] [address] Jan, Cocaine use disorder, moderate, in susta ined remission F14.[address] [address] Jan, Cocaine use disorder, moderate, in susta [...] Major depressive disorder, recurrent episode, moderate F33.[address] [address] Jan, Dysuria R30.0 and GERD with esophagitis K21.[address] [address] December, Major depressive disorder, recurrent epi sode, moderate F33.1 [place] [address] [address] December, [address] [address] December, Major depressive disorder, recurrent epi sode, [...] Z72.0 [facility] [address] [place] [address] [id number] [place] [address] Nov, [facility] [address] [facility] [id number] [place] [address] Nov, [facility] [address] [address] Nov, Wellness examination Z00.00 ; Encounter for immunization Z23 ; Screening for osteoporosis Z13.820 ; Screening for breast cancer Z12.31 and Left breast lump N63.20 [facility] [address] [id number] [place] [id number] Oct, Dental examination Z01.20 [facility] [address] [address] Oct, [facility] [address] [address] 08 Oct, 2017 [facility] [address] [address] 16 Sep, 2017 [place] [address] [address] 15 Sep, 2017 [facility] [address] [address] 14 Sep, 2017 Left otitis media with effusion H65.92 ; Acute suppurative otitis media of right ear without spontaneous rupture of tympanic membrane, recurrence not specified H66.001 ; Dizziness R42 and Fatigue 780.79 [facility] [address] [address] Aug, Major depressive disorder, recurrent epi sode, [...] remission F10.11 and Tobacco use Z72.0 [facility] [address] [facility] [id number] [address] [place] [address] Aug, Ingrown right big toenail L6 0.0 [facility] [address] [address] Aug, [facility] [address] [address] Aug, PTSD (post-traumatic stress disorder) F4 3.10 [place] [address] [address] Aug, Major depressive disorder, recurrent epi sode, moderate F33.1 ; Generalized anxiety disorder F41.1 and Cannabis abuse F12.10 [facility] [address] [address] Jul, [facility] [address] [address] Jul, [place] [address] [address] Jul, [place] [address] [address] Jul, Major depressive disorder, recurrent epi sode, moderate F33.1 ; Generalized anxiety disorder F41.1 and Cannabis abuse F12.10 [place] [address] [address] Jul, [place] [address] [address] Jul, [place] [address] [address] Jul, Hyperlipidemia 272.4 [place] [address] [address] Jul, PTSD (post-traumatic stress disorder) F4 3.10 [place] [address] [address] 14 Jul, 2017 Tobacco use Z72.0 ; [...] anxiety disorder F41.1 and Cannabis abuse F12.10 [place] [address] [address] Jul, [place] [address] [address] Jul, Dysuria R30.0 and Mixed hyperlipidemia E 78.[address] [address] Jun, Major depressive disorder, recurrent epi sode, moderate F33.1 ; Generalized anxiety disorder F41.1 and Cannabis abuse F12.10 [place] [address] [address] Jun, [address] [address] Jun, Generalized anxiety disorder F41.1 ; Blayne [...] sustained remission F14.21 and Tobacco use Z72.0 [place] [address] [address] Jun, Major depressive disorder, recurrent epi sode, moderate F33.1 ; Generalized anxiety disorder F41.1 and Cannabis abuse F12.10 [place] [address] [address] Jun, [facility] [address] [address] Jun, [place] [address] [address] Jun, Major depressive disorder, recurrent epi sode, moderate F33.1 ; Generalized anxiety disorder F41.1 and Cannabis abuse F12.10 [facility] [address] [id number] Mar, Dental examination Z01.20 [facility] [address] [id number] Feb, Dental examination Z01.20 [place] [address] [address] Mar, [place] [address] [address] Mar, [place] [address] [address] Feb, Hyperlipidemia 272.4 and Prediabetes 790 .29 [place] [address] [address] Feb, Fatigue 780.79 and Hyperlipidemia 272.4 [place] [address] [address] 08 Feb, 2015 Lumbago 724.2 ; Hyperlipidemia 272.4 ; I nsomnia 780.52 and Fatigue 780.79 [place] [address] [address] Nov, [place] [address] [address] Nov, [place] [address] [address] Mar, [place] [address] [address] Mar, [place] [address] [address] Jan, [facility] [address] [id number] [place] [address] Jan, [facility] [address] [id number] [place] [address] December, [facility] [address] [id number] [place] [address] December, [facility] [address] [id number] [place] [address] Nov, [facility] [address] [id number] [place] [address] Nov, [facility] [address] [id number] [place] [address] Nov, [facility] [address] [id number] [place] [address] Nov, [facility] [address] [id number] [place] [address] Nov, [facility] [address] [id number] [place] [address] Nov, [facility] [address] [id number] [place] [address] Oct, [facility] [address] [id number] [place] [address] Oct, [facility] [address] [id number] [place] [address] Oct, [facility] [address] [id number] [place] [address] Oct, [facility] [address] [id number] [place] [address] Oct, [facility] [address] [id number] [place] [address] Oct, [facility] [address] [id number] [place] [address] Oct, [facility] [address] [id number] [place] [address] Oct, [facility] [address] [facility] [id number] [place] [address] Oct, [facility] [address] [id number] [place] [address] Oct, [facility] [address] [id number] [place] [address] Oct, [facility] [address] [id number] [place] [address] Oct, [facility] [address] [id number] [place] [address] Oct, [facility] [address] [id number] [place] [address] 24 Sep, 2013 [facility] [address] [id number] [place] [address] 24 Sep, 2013 [facility] [address] [id number] [place] [address] Sep, [facility] [address] [id number] [place] [address] Sep, [facility] [address] [id number] [place] [address] Sep, [facility] [address] [id number] [place] [address] Sep, [facility] [address] [id number] [place] [address] 18 Sep, 2013 [facility] [address] [id number] [place] [address] 18 Sep, 2013 [facility] [address] [id number] [place] [address] 14 Sep, 2013 [facility] [address] [id number] [place] [address] 14 Sep, 2013 [facility] [address] [id number] [place] [address] 14 Sep, 2013 [facility] [address] [id number] [place] [address] 14 Sep, 2013 [facility] [address] [id number] [place] [address] 14 Sep, 2013 [facility] [address] [id number] [place] [address] 14 Sep, 2013 [facility] [address] [id number] [place] [address] Sep, [facility] [address] [facility] [id number] [place] [address] Sep, [facility] [address] [id number] [place] [address] Sep, [facility] [address] [id number] [place] [address] Sep, [facility] [address] [id number] [place] [address] Sep, [facility] [address] [id number] [place] [address] Sep, [facility] [address] [id number] [place] [address] Aug, [facility] [address] [id number] [place] [address] Aug, [facility] [address] [id number] [place] [address] Aug, [facility] [address] [id number] [place] [address] Aug, [facility] [address] [id number] [place] [address] Aug, [facility] [address] [id number] [place] [address] Jul, [facility] [address] [id number] [place] [address] Jul, [facility] [address] [id number] [place] [address] Jul, [facility] [address] [id number] [place] [address] Jul, [facility] [address] [id number] [place] [address] Jul, [facility] [address] [id number] [place] [address] Jul, [facility] [address] [id number] [place] [address] Jul, [facility] [address] [id number] [place] [address] Jul, [facility] [address] [id number] [place] [address] Jul, [facility] [address] [id number] [place] [address] Jun, [facility] [address] [id number] [place] [address] Jun, [facility] [address] [id number] [place] [address] Jun, [facility] [address] [id number] [place] [address] Jun, [facility] [address] [id number] [place] [address] Jun, [facility] [address] [id number] [place] [address] Jun, [facility] [address] [id number] [place] [address] Jun, [facility] [id number] [place] [address] Jun, [facility] [address] [id number] [place] [address] Jun, [facility] [id number] [place] [address] Jun, [facility] [address] [facility] [id number] [place] [address] May, [facility] [address] [facility] [id number] [place] [address] May, [facility] [address] [id number] [place] [address] May, [facility] [address] [id number] [place] [address] May, [facility] [address] [facility] [id number] [place] [address] May, [facility] [address] [id number] [place] [address] May, [facility] [address] [id number] [place] [address] May, [facility] [address] [id number] [place] [address] May, [facility] [address] [id number] [place] [address] May, [facility] [address] [id number] [place] [address] 26 Apr, 2013 [facility] [address] [id number] [place] [address] 16 Apr, 2013 [facility] [address] [id number] [place] [address] 12 Apr, 2013 [facility] [address] [id number] [place] [address] 06 Apr, 2012 [facility] [address] [facility] [id number] [place] [address] 30 Mar, 2013 [facility] [address] [id number] [place] [address] Mar, [facility] [address] [id number] [place] [address] Mar, [facility] [address] [id number] [place] [address] Mar, [facility] [address] [facility] [id number] [place] [address] Mar, [facility] [address] [facility] [id number] [place] [address] Mar, [facility] [address] [id number] [place] [address] Mar, [facility] [address] [id number] [place] [address] Feb, [facility] [address] [facility] [id number] [place] [address] Feb, [facility] [address] [id number] [place] [address] Feb, [facility] [address] [id number] [place] [address] Feb, [facility] [address] [id number] [place] [address] Feb, [facility] [address] [id number] [place] [address] Feb, [facility] [address] [id number] [place] [address] Feb, [facility] [address] [id number] [place] [address] Feb, [facility] [address] [id number] [place] [address] Feb, [facility] [address] [id number] [place] [address] Feb, [facility] [address] [id number] [place] [address] Feb, [facility] [address] [id number] [place] [address] Jan, [facility] [address] [id number] [place] [address] Jan, [facility] [address] [id number] [place] [address] December, [facility] [address] [id number] [place] [address] December, [facility] [address] [id number] [place] [address] Nov, [facility] [address] [id number] [place] [address] Nov, [facility] [address] [id number] [place] [address] Oct, [facility] [address] [id number] [place] [address] Oct, [facility] [address] [id number] [place] [address] Oct, [facility] [address] [id number] [place] [address] Oct, [facility] [address] [id number] [place] [address] Sep, [facility] [address] [id number] [place] [address] Sep, [facility] [address] [id number] [place] [address] Sep, [facility] [address] [id number] [place] [address] Sep, [facility] [address] [id number] [place] [address] Aug, [facility] [address] [id number] [place] [address] Aug, [facility] [address] [id number] [place] [address] Jul, [facility] [address] [id number] [place] [address] Jul, [facility] [address] [id number] [place] [address] Jul, [facility] [address] [id number] [place] [address] Jul, [facility] [address] [id number] [place] [address] Jul, [facility] [address] [id number] [place] [address] Jul, [facility] [address] [id number] [place] [address] Jun, [facility] [address] [id number] [place] [address] Jun, [facility] [address] [id number] [place] [address] Jun, [facility] [address] [id number] [place] [address] Jun, [facility] [address] [id number] [place] [address] Jun, [facility] [address] [id number] [place] [address] May, [facility] [address] [id number] [place] [address] May, [facility] [address] [id number] [place] [address] May, [facility] [address] [id number] [place] [address] May, [facility] [address] [id number] [place] [address] May, [facility] [address] [id number] [place] [address] May, [facility] [address] [id number] [place] [address] May, [facility] [address] [id number] [place] [address] May, [facility] [address] [id number] [place] [address] Mar, [facility] [address] [facility] [id number] [place] [address] Mar, [facility] [address] [id number] [place] [address] Mar, [facility] [address] [id number] [place] [address] Feb, [facility] [address] [id number] [place] [address] Feb, [facility] [address] [id number] [place] [address] Feb, [facility] [address] [id number] [place] [address] Feb, [facility] [address] [id number] [place] [address] Jan, [facility] [address] [id number] [place] [address] Jan, [facility] [address] [id number] [place] [address] Jan, [facility] [address] [id number] [place] [address] December, [facility] [address] [id number] [place] [address] Nov, [facility] [address] [id number] [place] [address] Oct, [facility] [address] [id number] [place] [address] Oct, [facility] [address] [id number] [place] [address] Oct, [facility] [address] [id number] [place] [address] Oct, [facility] [address] [id number] [place] [address] Aug, [facility] [address] [id number] [place] [address] Aug, [facility] [address] [id number] [place] [address] Aug, [facility] [address] [id number] [place] [address] Aug, [facility] [address] [id number] [place] [address] Aug, [facility] [address] [id number] [place] [address] Aug, [facility] [address] [id number] [place] [address] Aug, [facility] [address] [id number] [place] [address] Aug, [facility] [address] [id number] [place] [address] Jul, [facility] [address] [id number] [place] [address] Jun, [facility] [address] [id number] [place] [address] Jun, [facility] [address] [id number] [place] [address] 31 Jul, 2010 [facility] [address] [id number] [place] [address] Jul, [facility] [address] [id number] [place] [address] Jul, [facility] [address] [id number] [place] [address] 14 Jul, 2010 [facility] [address] [id number] [place] [address] 14 Jul, 2010 [facility] [address] [id number] [place] [address] 24 Jun, 2010 [facility] [address] [id number] [place] [address] May, [facility] [address] [id number] [place] [address] Mar, [facility] [id number] [place] [address] Oct, [facility] [address] [id number] [place] [address] Aug, [facility] [id number] [place] [address] Jul, [facility] [address] [id number] [place] [address] Jul, [facility] [id number] [place] [address] Jun, [facility] [id number] [place] [address] Jun, [facility] [id number] [place] [address] May, [facility] [id number] [place] [address] May, [facility] [id number] [place] [address] Mar, [facility] [id number] [place] [address] Mar, [facility] [id number] [place] [address] Oct, IMMUNIZATIONS No Known Immunizations SOCIAL HISTORY [...] replacement L1- L5 - Dr Benito pantoja ([place]) Surgical History appendectomy 1983 Surgical History hysterectomy 1993 Surgical History dilatation and curettage Surgical History heart cath- Dr Shaw [address] Solano bowel and intestines seperated [address] solano removed skin tag and cyst 2017 Surgical History Colonoscopy and upper GI 04/2019 Surgical History endoscopy 08/13/19 Hospitalization History Hospitalization for surgery only
--- OUTSIDE RECORDS SUMMARY | 2019-11-08 08:46 | XMS REPORT ---
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 Active 43669488 Problem Opioid use disorder, moderate, in sustained remission F11.21 Active 52144411 Problem Tobacco use Z72.0 Active 48752181 8 Problem Cocaine use disorder, moderate, in sustained remission F14.21 Active 08566257 Problem GERD with esophagitis K21.0 Active 686369481 Problem Prediabetes 790.29 Active 7545577 Problem PTSD (post-traumatic stress disorder) F43.10 Active 73656424 Problem Bipolar disorder F31.9 Active 137 73017 Problem Gastroesophageal reflux disease, esophagitis pre sence not specified K21.9 Active 919823161 Problem Menopausal disorder N95.9 Active 263017945 Problem Insomnia, unspecified type G47.00 Act avelina 309797372 Problem Cigarette nicotine dependence without complication F17.210 Active 72990333 Problem Cannabis abuse F12.10 Active 41533 009 Problem Irritable bowel syndrome with diarrhea K58.0 Active 980411702 Problem Acute pain of left shoulder M25.512 Ac tive 22329300 Problem Mixed hyperlipidemia E78.2 Active 913914486 Problem Generalized anxiety disorder F41.1 A ctive 23281156 Problem Arthritis M19.90 Active 1775558 Problem Other chronic pain G89.29 Active 8 7747874 Problem Fibromyalgia M79.7 Active 7691356 05 Problem Perimenopausal vasomotor symptoms N95.1 Active 255775930 ALLERGIES No Information ENCOUNTERS Encounter Location Date Diagnosis [place] [address] [address] Oct, [place] [address] [address] 14 Sep, 2019 Major depressive disorder, recurrent epi sode, moderate F33.1 ; Generalized anxiety disorder F41.1 ; Irritable bowel syndrome with diarrhea K58.0 and Epigastric abdominal pain R10.13 [facility] [address] [id number] [address] 24 May, 2019 Dental examination Z01.20 and Caries K02.9 [place] [address] [address] May, Right upper quadrant pain R10.11 and Mix ed hyperlipidemia E78.2 [place] [address] [address] Mar, Perimenopausal vasomotor symptoms N95.1 [place] [address] [address] Mar, [place] [address] [address] Mar, [place] [address] [address] Mar, [place] [address] [address] Mar, Perimenopausal vasomotor symptoms N95.1 ; Irritable bowel syndrome with diarrhea K58.0 ; Insomnia, unspecified type G47.00 and Weight gain R63.5 [place] [address] [address] Feb, [place] [address] [address] Feb, [place] [address] [address] Jan, [place] [address] [address] Jan, Fibromyalgia M79.7 ; Insect bite (nonven omous) of lower back and pelvis, sequela S30.860S ; Bitten or stung by nonvenomous insect and other nonvenomous arthropods, sequela W57.XXXS ; Arthritis M19.90 and Menopausal disorder N95.9 [place] [address] [address] Jan, [place] [address] [place] [address] Jan, Mixed hyperlipidemia E78.[address] [address] December, Screening for breast cancer Z12.31 and B reast lump N63.0 [place] [address] [address] December, Chest pain, unspecified type R07.9 [place] [address] [address] December, Chest pain, unspecified type R07.9 ; Gas troesophageal reflux disease, esophagitis presence not specified K21.9 and Left breast lump N63.20 [place] [address] [address] December, [facility] [address] [facility] [id number] [address] [place] [address] December, Suprapubic abdominal pain R1 0.2 and Dysuria R30.0 [place] [address] [address] December, [address] [address] December, Cannabis abuse F12.10 ; Generalized anxi ety disorder F41.1 ; Methamphetamine use disorder, severe, in sustained remission F15.21 ; Alcohol use disorder, mild, in sustained remission F10.11 ; PTSD (post-traumatic stress disorder) F43.10 ; Cocaine use disorder, moderate, in sustained remission F14.21 and Bipolar disorder F31.9 [facility] [address] [id number] [place] [address] Nov, Major depressive disorder, recurrent epi sode, moderate F33.1 ; Cannabis abuse F12.10 ; Generalized anxiety disorder F41.1 ; Methamphetamine use disorder, severe, in sustained remission F15.21 ; Alcohol use disorder, mild, in sustained remission F10.11 ; PTSD (post-traumatic stress disorder) F43.10 and Cocaine use disorder, moderate, in sustained remission F14.21 [facility] [address] [address] Oct, Major depressive disorder, recurrent epi sode, moderate F33.1 ; Cannabis abuse F12.10 ; Generalized anxiety disorder F41.1 ; Methamphetamine use disorder, severe, in sustained remission F15.21 ; Alcohol use disorder, mild, in sustained remission F10.11 ; PTSD (post-traumatic stress disorder) F43.10 and Cocaine use disorder, moderate, in sustained remission F14.21 [facility] [address] [address] Sep, Major depressive disorder, recurrent epi sode, moderate F33.1 [facility] [address] [place] [id number] [place] [id number] Aug, [facility] [address] [address] Jul, Dysuria R30.0 [facility] [address] [address] Jul, Major depressive disorder, recurrent epi sode, moderate F33.1 [facility] [address] [address] Jun, Major depressive disorder, recurrent epi sode, moderate F33.1 [facility] [address] [address] Jun, Major depressive disorder, recurrent epi sode, moderate F33.1 [facility] [address] [address] Jun, Acute pain of left shoulder M25.512 and Cigarette nicotine dependence without complication F17.210 [facility] [address] [address] May, [facility] [address] [address] May, Cocaine use disorder, moderate, in susta ined remission F14.21 [facility] [address] [address] May, [facility] [address] [id number] [address] May, Dental examination Z01.20 [facility] [address] [id number] May, Dental examination Z01.20 and Caries K02 .9 [place] [address] [address] May, Common wart B07.8 [facility] [address] [address] May, [facility] [address] [address] 27 Apr, 2018 Cocaine use disorder, moderate, in susta ined remission F14.21 [facility] [address] [address] 14 Apr, 2018 [facility] [address] [id number] 13 Apr, 2018 Dental examination Z01.20 [facility] [address] [id number] Mar, Encounter for dental exam and cleaning w /o abnormal findings Z01.20 [facility] [address] [address] Mar, [facility] [address] [address] Feb, Cocaine use disorder, moderate, in susta [...] Major depressive disorder, recurrent episode, moderate F33.1 [place] [address] [address] Jan, Cocaine use disorder, moderate, in susta ined remission F14.[address] [address] Jan, Cocaine use disorder, moderate, in susta [...] Major depressive disorder, recurrent episode, moderate F33.[address] [address] Jan, Dysuria R30.0 and GERD with esophagitis K21.[address] [address] December, Major depressive disorder, recurrent epi sode, moderate F33.1 [place] [address] [address] December, [address] [address] December, Major depressive disorder, recurrent epi sode, [...] use Z72.0 [facility] [address] [id number] [place] [address] Nov, [facility] [address] [id number] [place] [address] Nov, [facility] [address] [address] Nov, Wellness examination Z00.00 ; Encounter for immunization Z23 ; Screening for osteoporosis Z13.820 ; Screening for breast cancer Z12.31 and Left breast lump N63.20 [facility] [address] [id number] [place] [id number] Oct, Dental examination Z01.20 [facility] [address] [address] Oct, [facility] [address] [address] 08 Oct, 2017 [facility] [address] [address] 16 Sep, 2017 [place] [address] [address] 15 Sep, 2017 [facility] [address] [address] 14 Sep, 2017 Left otitis media with effusion H65.92 ; Acute suppurative otitis media of right ear without spontaneous rupture of tympanic membrane, recurrence not specified H66.001 ; Dizziness R42 and Fatigue 780.79 [facility] [address] [address] Aug, Major depressive disorder, recurrent epi sode, [...] Tobacco use Z72.0 [facility] [address] [facility] [id number] [address] [place] [address] Aug, Ingrown right big toenail L6 0.0 [facility] [address] [address] Aug, [facility] [address] [address] Aug, PTSD (post-traumatic stress disorder) F4 3.10 [place] [address] [address] Aug, Major depressive disorder, recurrent epi sode, moderate F33.1 ; Generalized anxiety disorder F41.1 and Cannabis abuse F12.10 [facility] [address] [address] Jul, [facility] [address] [address] Jul, [place] [address] [address] Jul, [place] [address] [address] Jul, Major depressive disorder, recurrent epi sode, moderate F33.1 ; Generalized anxiety disorder F41.1 and Cannabis abuse F12.10 [place] [address] [address] Jul, [place] [address] [address] Jul, [place] [address] [address] Jul, Hyperlipidemia 272.4 [place] [address] [address] Jul, PTSD (post-traumatic stress disorder) F4 3.10 [place] [address] [address] 14 Jul, 2017 Tobacco use Z72.0 ; [...] anxiety disorder F41.1 and Cannabis abuse F12.10 [place] [address] [address] Jul, [place] [address] [address] Jul, Dysuria R30.0 and Mixed hyperlipidemia E 78.[address] [address] Jun, Major depressive disorder, recurrent epi sode, moderate F33.1 ; Generalized anxiety disorder F41.1 and Cannabis abuse F12.10 [place] [address] [address] Jun, [address] [address] Jun, Generalized anxiety disorder F41.1 ; Blayne [...] sustained remission F14.21 and Tobacco use Z72.0 [place] [address] [address] Jun, Major depressive disorder, recurrent epi sode, moderate F33.1 ; Generalized anxiety disorder F41.1 and Cannabis abuse F12.10 [place] [address] [address] Jun, [facility] [address] [address] Jun, [place] [address] [address] Jun, Major depressive disorder, recurrent epi sode, moderate F33.1 ; Generalized anxiety disorder F41.1 and Cannabis abuse F12.10 [facility] [address] [id number] Mar, Dental examination Z01.20 [facility] [address] [id number] Feb, Dental examination Z01.20 [place] [address] [address] Mar, [place] [address] [address] Mar, [place] [address] [address] Feb, Hyperlipidemia 272.4 and Prediabetes 790 .29 [place] [address] [address] Feb, Fatigue 780.79 and Hyperlipidemia 272.4 [place] [address] [address] 08 Feb, 2015 Lumbago 724.2 ; Hyperlipidemia 272.4 ; I nsomnia 780.52 and Fatigue 780.79 [place] [address] [address] Nov, [place] [address] [address] Nov, [place] [address] [address] Mar, [place] [address] [address] Mar, [place] [address] [address] Jan, [facility] [address] [id number] [place] [address] Jan, [facility] [address] [id number] [place] [address] December, [facility] [address] [id number] [place] [address] December, [facility] [address] [id number] [place] [address] Nov, [facility] [address] [id number] [place] [address] Nov, [facility] [address] [id number] [place] [address] Nov, [facility] [address] [id number] [place] [address] Nov, [facility] [address] [id number] [place] [address] Nov, [facility] [address] [id number] [place] [address] Nov, [facility] [address] [id number] [place] [address] Oct, [facility] [address] [id number] [place] [address] Oct, [facility] [address] [id number] [place] [address] Oct, [facility] [address] [id number] [place] [address] Oct, [facility] [address] [id number] [place] [address] Oct, [facility] [address] [id number] [place] [address] Oct, [facility] [address] [id number] [place] [address] Oct, [facility] [address] [id number] [place] [address] Oct, [facility] [address] [facility] [id number] [place] [address] Oct, [facility] [address] [id number] [place] [address] Oct, [facility] [address] [id number] [place] [address] Oct, [facility] [address] [id number] [place] [address] Oct, [facility] [address] [id number] [place] [address] Oct, [facility] [address] [id number] [place] [address] 24 Sep, 2013 [facility] [address] [id number] [place] [address] 24 Sep, 2013 [facility] [address] [id number] [place] [address] Sep, [facility] [address] [id number] [place] [address] Sep, [facility] [address] [id number] [place] [address] Sep, [facility] [address] [id number] [place] [address] Sep, [facility] [address] [id number] [place] [address] 18 Sep, 2013 [facility] [address] [id number] [place] [address] 18 Sep, 2013 [facility] [address] [id number] [place] [address] 14 Sep, 2013 [facility] [address] [id number] [place] [address] 14 Sep, 2013 [facility] [address] [id number] [place] [address] 14 Sep, 2013 [facility] [address] [id number] [place] [address] 14 Sep, 2013 [facility] [address] [id number] [place] [address] 14 Sep, 2013 [facility] [address] [id number] [place] [address] 14 Sep, 2013 [facility] [address] [id number] [place] [address] Sep, [facility] [address] [facility] [id number] [place] [address] Sep, [facility] [address] [id number] [place] [address] Sep, [facility] [address] [id number] [place] [address] Sep, [facility] [address] [id number] [place] [address] Sep, [facility] [address] [id number] [place] [address] Sep, [facility] [address] [id number] [place] [address] Aug, [facility] [address] [id number] [place] [address] Aug, [facility] [address] [id number] [place] [address] Aug, [facility] [address] [id number] [place] [address] Aug, [facility] [address] [id number] [place] [address] Aug, [facility] [address] [id number] [place] [address] Jul, [facility] [address] [id number] [place] [address] Jul, [facility] [address] [id number] [place] [address] Jul, [facility] [address] [id number] [place] [address] Jul, [facility] [address] [id number] [place] [address] Jul, [facility] [address] [id number] [place] [address] Jul, [facility] [address] [id number] [place] [address] Jul, [facility] [address] [id number] [place] [address] Jul, [facility] [address] [id number] [place] [address] Jul, [facility] [address] [id number] [place] [address] Jun, [facility] [address] [id number] [place] [address] Jun, [facility] [address] [id number] [place] [address] Jun, [facility] [address] [id number] [place] [address] Jun, [facility] [address] [id number] [place] [address] Jun, [facility] [address] [id number] [place] [address] Jun, [facility] [address] [id number] [place] [address] Jun, [facility] [id number] [place] [address] Jun, [facility] [address] [id number] [place] [address] Jun, [facility] [id number] [place] [address] Jun, [facility] [address] [facility] [id number] [place] [address] May, [facility] [address] [facility] [id number] [place] [address] May, [facility] [address] [id number] [place] [address] May, [facility] [address] [id number] [place] [address] May, [facility] [address] [facility] [id number] [place] [address] May, [facility] [address] [id number] [place] [address] May, [facility] [address] [id number] [place] [address] May, [facility] [address] [id number] [place] [address] May, [facility] [address] [id number] [place] [address] May, [facility] [address] [id number] [place] [address] 26 Apr, 2013 [facility] [address] [id number] [place] [address] 16 Apr, 2013 [facility] [address] [id number] [place] [address] 12 Apr, 2013 [facility] [address] [id number] [place] [address] 06 Apr, 2012 [facility] [address] [facility] [id number] [place] [address] 30 Mar, 2013 [facility] [address] [id number] [place] [address] Mar, [facility] [address] [id number] [place] [address] Mar, [facility] [address] [id number] [place] [address] Mar, [facility] [address] [facility] [id number] [place] [address] Mar, [facility] [address] [facility] [id number] [place] [address] Mar, [facility] [address] [id number] [place] [address] Mar, [facility] [address] [id number] [place] [address] Feb, [facility] [address] [facility] [id number] [place] [address] Feb, [facility] [address] [id number] [place] [address] Feb, [facility] [address] [id number] [place] [address] Feb, [facility] [address] [id number] [place] [address] Feb, [facility] [address] [id number] [place] [address] Feb, [facility] [address] [id number] [place] [address] Feb, [facility] [address] [id number] [place] [address] Feb, [facility] [address] [id number] [place] [address] Feb, [facility] [address] [id number] [place] [address] Feb, [facility] [address] [id number] [place] [address] Feb, [facility] [address] [id number] [place] [address] Jan, [facility] [address] [id number] [place] [address] Jan, [facility] [address] [id number] [place] [address] December, [facility] [address] [id number] [place] [address] December, [facility] [address] [id number] [place] [address] Nov, [facility] [address] [id number] [place] [address] Nov, [facility] [address] [id number] [place] [address] Oct, [facility] [address] [id number] [place] [address] Oct, [facility] [address] [id number] [place] [address] Oct, [facility] [address] [id number] [place] [address] Oct, [facility] [address] [id number] [place] [address] Sep, [facility] [address] [id number] [place] [address] Sep, [facility] [address] [id number] [place] [address] Sep, [facility] [address] [id number] [place] [address] Sep, [facility] [address] [id number] [place] [address] Aug, [facility] [address] [id number] [place] [address] Aug, [facility] [address] [id number] [place] [address] Jul, [facility] [address] [id number] [place] [address] Jul, [facility] [address] [id number] [place] [address] Jul, [facility] [address] [id number] [place] [address] Jul, [facility] [address] [facility] [id number] [place] [address] Jul, [facility] [address] [id number] [place] [address] Jul, [facility] [address] [id number] [place] [address] Jun, [facility] [address] [id number] [place] [address] Jun, [facility] [address] [id number] [place] [address] Jun, [facility] [address] [id number] [place] [address] Jun, [facility] [address] [id number] [place] [address] Jun, [facility] [address] [id number] [place] [address] May, [facility] [address] [id number] [place] [address] May, [facility] [address] [id number] [place] [address] May, [facility] [address] [id number] [place] [address] May, [facility] [address] [id number] [place] [address] May, [facility] [address] [id number] [place] [address] May, [facility] [address] [id number] [place] [address] May, [facility] [address] [id number] [place] [address] May, [facility] [address] [id number] [place] [address] Mar, [facility] [address] [facility] [id number] [place] [address] Mar, [facility] [address] [id number] [place] [address] Mar, [facility] [address] [id number] [place] [address] Feb, [facility] [address] [id number] [place] [address] Feb, [facility] [address] [id number] [place] [address] Feb, [facility] [address] [id number] [place] [address] Feb, [facility] [address] [id number] [place] [address] Jan, [facility] [address] [id number] [place] [address] Jan, [facility] [address] [id number] [place] [address] Jan, [facility] [address] [id number] [place] [address] December, [facility] [address] [id number] [place] [address] Nov, [facility] [address] [id number] [place] [address] Oct, [facility] [address] [id number] [place] [address] Oct, [facility] [address] [id number] [place] [address] Oct, [facility] [address] [id number] [place] [address] Oct, [facility] [address] [id number] [place] [address] Aug, [facility] [address] [id number] [place] [address] Aug, [facility] [address] [id number] [place] [address] Aug, [facility] [address] [id number] [place] [address] Aug, [facility] [address] [id number] [place] [address] Aug, [facility] [address] [id number] [place] [address] Aug, [facility] [address] [id number] [place] [address] Aug, [facility] [address] [id number] [place] [address] Aug, [facility] [address] [id number] [place] [address] Jul, [facility] [address] [id number] [place] [address] Jun, [facility] [address] [id number] [place] [address] Jun, [facility] [address] [id number] [place] [address] 31 Jul, 2010 [facility] [address] [id number] [place] [address] Jul, [facility] [address] [id number] [place] [address] Jul, [facility] [address] [id number] [place] [address] 14 Jul, 2010 [facility] [address] [id number] [place] [address] 14 Jul, 2010 [facility] [address] [id number] [place] [address] 24 Jun, 2010 [facility] [address] [id number] [place] [address] May, [facility] [address] [id number] [place] [address] Mar, [facility] [id number] [place] [address] Oct, [facility] [address] [id number] [place] [address] Aug, [facility] [id number] [place] [address] Jul, [facility] [address] [id number] [place] [address] Jul, [facility] [id number] [place] [address] Jun, [facility] [id number] [place] [address] Jun, [facility] [id number] [place] [address] May, [facility] [id number] [place] [address] May, [facility] [id number] [place] [address] Mar, [facility] [id number] [place] [address] Mar, [facility] [id number] [place] [address] Oct, IMMUNIZATIONS No Known Immunizations SOCIAL HISTORY [...] replacement L1- L5 - Dr Benito pantoja ([place]) Surgical History appendectomy 1983 Surgical History hysterectomy 1993 Surgical History dilatation and curettage Surgical History heart cath- Dr Shaw [address] Solano bowel and intestines seperated [address] solano removed skin tag and cyst 2017 Surgical History Colonoscopy and upper GI 04/2019 Surgical History endoscopy 08/13/19 Hospitalization History Hospitalization for surgery only
--- OUTSIDE RECORDS SUMMARY | 2019-11-08 08:47 | XMS REPORT ---
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 Role Phone JOSHUA VASQUEZ Unavailable PROBLEMS Type Condition ICD9-CM Code XNY21-RS Code Onset Dates Condition S tatus SNOMED Code Problem Cannabis abuse F12.10 Active 40504 009 Problem Mixed hyperlipidemia E78.2 Active 197489754 Problem Generalized anxiety disorder F41.1 A ctive 45160438 Problem Major depressive disorder, recurrent episode, moderate F33.1 Active 095465139 Problem Tobacco use Z72.0 Active 44432138 8 Problem PTSD (post-traumatic stress disorder) F43.10 Active 90252252 Problem Opioid use disorder, moderate, in sustained remission F11.21 Active 84404468 Problem Alcohol use disorder, mild, in sustained remission F10.11 Active 50995280 Problem GERD with esophagitis K21.0 Active 229615013 Problem Acute pain of left shoulder M25.512 Ac tive 52929921 Problem Cigarette nicotine dependence without complication F17.210 Active 65470937 Problem Fibromyalgia M79.7 Active 8184916 05 Problem Cocaine use disorder, moderate, in sustained remission F14.21 Active 76133104 Problem Other chronic pain G89.29 Active 8 2125559 Problem Methamphetamine use disorder, severe, 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 Active 79247850 Problem Prediabetes 790.29 Active 2913823 Problem Bipolar disorder F31.9 Active 137 61825 Problem Gastroesophageal reflux disease, esophagitis pre sence not specified K21.9 Active 244767891 Problem Menopausal disorder N95.9 Active 195445062 Problem Arthritis M19.90 Active 5767575 ALLERGIES Substance Reaction Event Type Date Status Pravastatin Sodium itching Drug Allergy Oct, Active Duragesic-100 vomiting- Patches only Drug Allergy Oct, Acti ve ENCOUNTERS Encounter Location Date Diagnosis [facility] [address] [facility] [id number] [address] [place] [id number] Mar, [place] [address] [place] [id number] [place] [address] Feb, [place] [address] [id number] Feb, [place] [address] [address] Jan, [place] [address] [address] Jan, Fibromyalgia M79.7 ; Insect bite (nonvenomous) of lower back and pelvis, sequela S30.860S ; Bitten or stung by nonvenomous insect and other nonvenomous arthropods, sequela W57.XXXS ; Arthritis M19.90 and Menopausal disorder N95.9 [place] [address] [address] Jan, [place] [address] [address] Jan, Mixed hyperlipidemia E78.2 [place] [address] [address] December, Screening for breast cancer Z12.31 and Breast lump N63.0 [place] [address] [address] December, Chest pain, unspecified type R07.9 [place] [address] [address] December, Chest pain, unspecified type R07.9 ; Gastroesophageal reflux disease, esophagitis presence not specified K21.9 and Left breast lump N63.20 [place] [address] [place] [id number] [address] [place] [phone] December, [facility] [address] [place] [id number] [address] [place] [phone] December, Suprapubic abdominal pain R1 0.2 and Dysuria R30.0 [facility] [address] [facility] [id number] [address] [place] [phone] December, [facility] [address] [facility] [id number] [address] [place] [phone] December, Cannabis abuse F12.10 ; Gene ralized anxiety disorder F41.1 ; Methamphetamine use disorder, severe, 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 ; Alcohol use disorder, mild, in sustained remission F10.11 ; PTSD (post-traumatic stress disorder) F43.10 ; Cocaine use disorder, moderate, in sustained remission F14.21 and Bipolar disorder F31.9 [facility] [address] [facility] [id number] [address] [place] [phone] Nov, Major depressive disorder, r ecurrent episode, moderate F33.1 ; Cannabis abuse F12.10 ; Generalized anxiety disorder F41.1 ; Methamphetamine use disorder, severe, 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 ; Alcohol use disorder, mild, in sustained remission F10.11 ; PTSD (post-traumatic stress disorder) F43.10 and Cocaine use disorder, moderate, in sustained remission F14.21 [facility] [address] [facility] [id number] [address] [place] [id number] Oct, Major depressive disorder, r ecurrent episode, moderate F33.1 ; Cannabis abuse F12.10 ; Generalized anxiety disorder F41.1 ; Methamphetamine use disorder, severe, 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 ; Alcohol use disorder, mild, in sustained remission F10.11 ; PTSD (post-traumatic stress disorder) F43.10 and Cocaine use disorder, moderate, in sustained remission F14.21 [facility] [address] [facility] [id number] [address] [place] [id number] 07 Sep, 2018 Major depressive disorder, r ecurrent episode, moderate F33.1 [facility] [address] [id number] [address] [place] [address] [id number] Aug, [facility] [address] [facility] [id number] [address] [place] [phone] Jul, Dysuria R30.0 [facility] [address] [facility] [id number] [address] [place] [id number] Jul, Major depressive disorder, r ecurrent episode, moderate F33.1 [facility] [address] [id number] [address] [place] [phone] Jun, Major depressive disorder, r ecurrent episode, moderate F33.1 [facility] [address] [id number] [address] [place] [phone] Jun, Major depressive disorder, r ecurrent episode, moderate F33.1 [facility] [address] [facility] [id number] [address] [place] [phone] Jun, Acute pain of left shoulder M25.512 and Cigarette nicotine dependence without complication F17.210 [facility] [address] [facility] [id number] [address] [place] [phone] May, [facility] [address] [facility] [id number] [address] [place] [phone] May, Cocaine use disorder, modera te, in sustained remission F14.21 [facility] [address] [facility] [id number] [address] [place] [phone] May, [facility] [address] [place] [address] May, 18 Dental examination Z01.20 [facility] [address] [facility] [id number] [address] [place] [phone] May, Dental examination Z01.20 an d Caries K02.9 [facility] [address] [facility] [id number] [address] [place] [phone] May, Common wart B07.8 [facility] [address] [facility] [id number] [address] [place] [phone] May, [facility] [address] [facility] [id number] [address] [place] [phone] Apr, Cocaine use disorder, modera te, in sustained remission F14.21 [place] [address] [facility] [id number] [address] [place] [phone] 14 Apr, 2018 [facility] [address] [place] [id number] [address] [place] [address] [id number] 13 Apr, 2018 Dental examination Z01.20 [facility] [address] [id number] [address] [place] [address] [id number] 10 Mar, 2018 Encounter for dental exam an d cleaning w/o abnormal findings Z01.20 [place] [address] [place] [id number] [address] [place] [phone] Mar, [place] [address] [place] [id number] [place] [phone] Feb, Cocaine use disorder, modera te, in [...] Major depressive disorder, recurrent episode, moderate F33.1 [place] [address] [place] [id number] [address] [place] [phone] Jan, Cocaine use disorder, modera te, in sustained remission F14.21 [place] [address] [address] Jan, Cocaine use disorder, modera te, in [...] Major depressive disorder, recurrent episode, moderate F33.1 [place] [address] [place] [id number] [address] [place] [phone] Jan, Dysuria R30.0 and GERD with esophagitis K21.0 [facility] [address] [facility] [id number] [address] [place] [phone] December, Major depressive disorder, r ecurrent episode, moderate F33.1 [facility] [address] [facility] [id number] [address] [place] [phone] December, [facility] [address] [place] [id number] [address] [place] [phone] December, Major depressive disorder, r ecurrent episode, [...] sustained remission F10.11 and Tobacco use Z72.0 [place] [address] [place] [id number] [address] [place] [phone] Nov, [facility] [address] [id number] [place] [address] Nov, [facility] [address] [place] [id number] [address] [place] [phone] Nov, Wellness examination Z00.00 ; Encounter for immunization Z23 ; Screening for osteoporosis Z13.820 ; Screening for breast cancer Z12.31 and Left breast lump N63.20 [facility] [address] [facility] [id number] [address] [place] [address] [id number] Oct, Dental examination Z01.20 [facility] [address] [facility] [id number] [address] [place] [phone] Oct, [facility] [address] [facility] [id number] [address] [place] [phone] Oct, [facility] [address] [place] [id number] [address] [place] [phone] Sep, [place] [address] [id number] 15 Sep, 2017 [place] [address] [id number] 14 Sep, 2017 Left otitis media with effus ion H65.92 ; Acute suppurative otitis media of right ear without spontaneous rupture of tympanic membrane, recurrence not specified H66.001 ; Dizziness R42 and Fatigue 780.79 [place] [address] [phone] Aug, Major depressive disorder, r ecurrent episode, [...] Tobacco use Z72.0 [facility] [address] [place] [id number] [address] [place] [phone] Aug, Ingrown right big toenail L6 0.0 [place] [address] [place] [id number] [address] [place] [phone] Aug, [place] [address] [phone] Aug, PTSD (post-traumatic stress disorder) F43.10 [place] [address] [place] [id number] [address] [place] [phone] Aug, Major depressive disorder, r ecurrent episode, moderate F33.1 ; Generalized anxiety disorder F41.1 and Cannabis abuse F12.10 [place] [address] [place] [id number] [address] [place] [phone] Jul, [place] [address] [place] [id number] [address] [place] [phone] Jul, [place] [id number] [place] [phone] Jul, [place] [address] [address] Jul, Major depressive disorder, r ecurrent episode, moderate F33.1 ; Generalized anxiety disorder F41.1 and Cannabis abuse F12.10 [place] [address] [phone] Jul, [place] [address] [place] [id number] [place] [phone] Jul, [place] [address] [address] Jul, Hyperlipidemia 272.4 [place] [address] [address] Jul, PTSD (post-traumatic stress disorder) F43.10 [place] [address] [address] Jul, Tobacco use Z72.0 ; Alcohol use disorder, mild, in sustained remission F10.11 ; Opioid use disorder, moderate, in sustained remission F11.21 ; Methamphetamine use disorder, severe, 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 ; Cocaine use disorder, moderate, in sustained remission F14.21 ; PTSD (post-traumatic stress disorder) F43.10 ; Major depressive disorder, recurrent episode, moderate F33.1 ; Generalized anxiety disorder F41.1 and Cannabis abuse F12.10 [place] [address] [phone] Jul, [place] [address] [phone] Jul, Dysuria R30.0 and Mixed hype rlipidemia E78.2 [place] [address] [place] [id number] [address] [place] [phone] Jun, Major depressive disorder, r ecurrent episode, moderate F33.1 ; Generalized anxiety disorder F41.1 and Cannabis abuse F12.10 [facility] [address] [id number] [address] [place] [phone] Jun, [facility] [address] [id number] [address] [place] [id number] Jun, Generalized anxiety disorder F41.1 ; Major [...] use Z72.0 [facility] [address] [facility] [id number] [address] [place] [phone] Jun, Major depressive disorder, r ecurrent episode, moderate F33.1 ; Generalized anxiety disorder F41.1 and Cannabis abuse F12.10 [facility] [address] [facility] [id number] [address] [place] [phone] Jun, [facility] [address] [facility] [id number] [address] [place] [phone] Jun, [facility] [address] [facility] [id number] [address] [place] [phone] Jun, Major depressive disorder, r ecurrent episode, moderate F33.1 ; Generalized anxiety disorder F41.1 and Cannabis abuse F12.10 [facility] [address] [id number] [address] [place] [address] [id number] Mar, Dental examination Z01.20 [facility] [address] [id number] [address] [place] [address] [id number] Feb, Dental examination Z01.20 [facility] [address] [id number] [address] [place] [phone] Mar, [facility] [address] [id number] [address] [place] [phone] Mar, [facility] [address] [id number] [address] [place] [phone] 15 Feb, 2015 Hyperlipidemia 272.4 and Pre diabetes 790.29 [facility] [address] [id number] [address] [place] [phone] 14 Feb, 2015 Fatigue 780.79 and Hyperlipi demia 272.4 [facility] [address] [facility] [id number] [address] [place] [phone] 08 Feb, 2015 Lumbago 724.2 ; Hyperlipidem ia 272.4 ; Insomnia 780.52 and Fatigue 780.79 [facility] [address] [id number] [address] [place] [phone] Nov, [facility] [address] [id number] [address] [place] [phone] Nov, [facility] [address] [id number] [address] [place] [phone] Mar, [facility] [address] [id number] [address] [place] [phone] Mar, [facility] [address] [id number] [address] [place] [phone] Jan, [facility] [address] [id number] [address] [place] [phone] Jan, [facility] [address] [id number] [address] [place] [phone] December, [facility] [address] [id number] [address] [place] [phone] December, [facility] [address] [id number] [address] [place] [phone] Nov, [facility] [address] [id number] [address] [place] [phone] Nov, [facility] [address] [id number] [address] [place] [phone] Nov, [facility] [address] [id number] [facility] [place] [address] 28 Nov, 2013 [facility] [address] [id number] [facility] [place] [address] Nov, [facility] [address] [id number] [facility] [place] [address] 28 Nov, 2013 [facility] [address] [id number] [address] [place] [address], [place] [address] 31 Oct, 2013 [facility] [address] [id number] [address] [place] [address], [place] [address] 31 Oct, 2013 [facility] [address] [id number] [address] [place] [address], [place] [address] 20 Oct, 2013 [facility] [address] [id number] [address] [place] [address], [place] [address] 20 Oct, 2013 [facility] [address] [id number] [address] [place] [address], [place] [id number] 19 Oct, 2013 [facility] [address] [id number] [address] [place] [address], [place] [address] 19 Oct, 2013 [facility] [address] [id number] [address] [place] [address], [place] [address] Oct, [facility] [address] [id number] [address] [place] [address], [place] [address] 12 Oct, 2013 [facility] [address] [id number] [address] [place] [address], [place] [address] 11 Oct, 2013 [facility] [address] [id number] [address] [place] [address], [place] [address] 04 Oct, 2013 [facility] [address] [id number] [address] [place] [address], [place] [address] 04 Oct, 2013 [facility] [address] [id number] [address] [place] [address], [place] [address] 03 Oct, 2013 [facility] [address] [id number] [address] [place] [address], [place] [address] Oct, [facility] [address] [id number] [address] [place] [address], [place] [address] 24 Sep, 2013 [facility] [address] [id number] [address] [place] [address], [place] [address] 24 Sep, 2013 [facility] [address] [id number] [address] [place] [address], [place] [address] 20 Sep, 2013 [facility] [address] [id number] [address] [place] [address], [place] [address] 20 Sep, 2013 [facility] [address] [id number] [address] [place] [address], [place] [address] 20 Sep, 2013 [facility] [address] [id number] [address] [place] [address], [place] [address] 20 Sep, 2013 [facility] [address] [id number] [address] [place] [address], [place] [address] 18 Sep, 2013 [facility] [address] [id number] [address] [place] [address], [place] [address] 18 Sep, 2013 [facility] [address] [id number] [address] [place] [address], [place] [address] 14 Sep, 2013 [facility] [address] [id number] [address] [place] [address], [place] [address] 14 Sep, 2013 [facility] [address] [id number] [address] [place] [address], [place] [address] 14 Sep, 2013 [facility] [address] [id number] [address] [place] [address], [place] [address] 14 Sep, 2013 [facility] [address] [id number] [address] [place] [address], [place] [address] 14 Sep, 2013 [facility] [address] [id number] [address] [place] [address], [place] [address] 14 Sep, 2013 [facility] [address] [id number] [address] [place] [address], [place] [address] 13 Sep, 2013 [facility] [address] [id number] [address] [place] [address], [place] [address] Sep, [facility] [address] [id number] [address] [place] [address], [place] [address] Sep, [facility] [address] [id number] [address] [place] [address], [place] [address] Sep, [facility] [address] [id number] [address] [place] [address], [place] [address] Sep, [facility] [address] [id number] [address] [place] [address], [place] [address] Sep, [facility] [address] [id number] [address] [place] [address], [place] [address] Aug, [facility] [address] [id number] [address] [place] [address], [place] [id number] Aug, [facility] [address] [id number] [address] [place] [address], [place] [address] Aug, [facility] [address] [id number] [address] [place] [address], [place] [id number] Aug, [facility] [address] [id number] [address] [place] [address], [place] [id number] Aug, [facility] [address] [id number] [address] [place] [address], [place] [address] Jul, [facility] [address] [id number] [address] [place] [address], [place] [id number] Jul, [facility] [address] [id number] [address] [place] [address], [place] [id number] Jul, [facility] [address] [id number] [address] [place] [address], [place] [id number] Jul, [facility] [address] [id number] [address] [place] [address], [place] [address] Jul, [facility] [address] [id number] [address] [place] [id number] Jul, [facility] [address] [id number] [address] [place] [address], [place] [address] Jul, [facility] [address] [id number] [address] [place] [id number] Jul, [facility] [address] [id number] [address] [place] [id number] Jul, [facility] [address] [id number] [address] [place] [id number] Jun, [facility] [address] [id number] [address] [place] [address], [place] [id number] Jun, [facility] [address] [id number] [address] [place] [id number] Jun, [facility] [address] [id number] [address] [place] [id number] Jun, [facility] [address] [id number] [address] [place] [id number] Jun, [facility] [address] [id number] [address] [place] [id number] Jun, [facility] [facility] [address] [id number] [address] [place] [address] Jun, [facility] [address] [id number] [address] [place] [id number] Jun, [facility] [address] [id number] [address] [place] [id number] Jun, [facility] [address] [id number] [address] [place] [id number] Jun, [facility] [address] [id number] [address] [place] [address] May, [facility] [address] [id number] [address] [place] [id number] May, [facility] [address] [id number] [address] [place] [address], [place] [address] May, [facility] [address] [id number] [address] [place] [address], [place] [address] May, [facility] [address] [id number] [address] [place] [address], [place] [address] 16 May, 2013 [facility] [address] [id number] [address] [place] [address], [place] [address] May, [facility] [address] [id number] [address] [place] [address], [place] [address] May, [facility] [address] [id number] [address] [place] [address], [place] [address] May, [facility] [address] [id number] [address] [place] [address], [place] [address] May, [facility] [address] [id number] [address] [place] [address], [place] [address] Apr, [facility] [address] [id number] [address] [place] [address], [place] [address] 16 Apr, 2013 [facility] [address] [id number] [address] [place] [address], [place] [address] Apr, [facility] [address] [id number] [address] [place] [address], [place] [address] Apr, [facility] [address] [id number] [address] [place] [address], [place] [address] Mar, [facility] [address] [id number] [address] [place] [address], [place] [address] Mar, [facility] [address] [id number] [address] [place] [address], [place] [address] Mar, [facility] [address] [id number] [address] [place] [address], [place] [address] Mar, [facility] [address] [id number] [address] [place] [address], [place] [address] Mar, [facility] [address] [id number] [address] [place] [address], [place] [address] Mar, [facility] [address] [id number] [address] [place] [address], [place] [address] Mar, [facility] [address] [id number] [address] [place] [address], [place] [address] Feb, [facility] [address] [id number] [address] [place] [address], [place] [address] Feb, [facility] [address] [id number] [address] [place] [address], [place] [address] Feb, [facility] [address] [id number] [address] [place] [address], [place] [address] Feb, [facility] [address] [id number] [address] [place] [address], [place] [address] Feb, [facility] [address] [id number] [address] [place] [address], [place] [address] Feb, [facility] [address] [id number] [address] [place] [address], [place] [address] Feb, [facility] [address] [id number] [address] [place] [address], [place] [address] Feb, [facility] [address] [id number] [address] [place] [address], [place] [address] Feb, [facility] [address] [id number] [address] [place] [address], [place] [address] Feb, [facility] [address] [id number] [address] [place] [address], [place] [address] Feb, [facility] [address] [id number] [address] [place] [address], [place] [address] Jan, [facility] [address] [id number] [address] [place] [address], [place] [address] Jan, [facility] [address] [id number] [address] [place] [address], [place] [address] December, [facility] [place] [address] [id number] [address] [place] [address], [place] [address] December, [facility] [address] [id number] [address] [place] [address], [place] [address] Nov, [facility] [address] [id number] [address] [place] [address], [place] [address] Nov, [facility] [address] [id number] [address] [place] [address], [place] [address] Oct, [facility] [place] [address] [id number] [address] [place] [address], [place] [address] Oct, [facility] [place] [address] [id number] [address] [place] [address], [place] [address] Oct, [facility] [place] [address] [id number] [address] [place] [address], [place] [address] Oct, [facility] [place] [address] [id number] [address] [place] [address], [place] [address] Sep, [facility] [place] [address] [id number] [address] [place] [address], [place] [address] Sep, [facility] [address] [id number] [address] [place] [address], [place] [address] Sep, [facility] [place] [address] [id number] [address] [place] [address], [place] [address] Sep, [facility] [place] [address] [id number] [address] [place] [address], [place] [address] Aug, [facility] [address] [id number] [address] [place] [address], [place] [address] Aug, [facility] [address] [id number] [address] [place] [address], [place] [address] Jul, [facility] [address] [id number] [address] [place] [address], [place] [address] Jul, [facility] [address] [id number] [address] [place] [address], [place] [address] Jul, [facility] [address] [id number] [address] [place] [address], [place] [address] Jul, [facility] [address] [id number] [address] [place] [address], [place] [address] Jul, [facility] [address] [id number] [address] [place] [address], [place] [address] Jul, [facility] [address] [id number] [address] [place] [address], [place] [address] Jun, [facility] [address] [id number] [address] [place] [address], [place] [address] Jun, [facility] [address] [id number] [address] [place] [address], [place] [address] Jun, [facility] [address] [id number] [address] [place] [address], [place] [address] Jun, [facility] [address] [id number] [address] [place] [address], [place] [address] Jun, [facility] [address] [id number] [address] [place] [address], [place] [address] May, [facility] [address] [id number] [address] [place] [address] May, [facility] [address] [id number] [address] [place] [address] May, [facility] [address] [id number] [address] [place] [address], [place] [address] May, [facility] [address] [id number] [address] [place] [address], [place] [address] May, [facility] [address] [id number] [address] [place] [address] May, [facility] [address] [id number] [address] [place] [address] May, [facility] [address] [id number] [address] [place] [address], [place] [address] May, [facility] [address] [id number] [address] [place] [address], [place] [address] Mar, [facility] [address] [id number] [address] [place] [address], [place] [address] Mar, [facility] [address] [id number] [address] [place] [address], [place] [address] Mar, [facility] [address] [id number] [address] [place] [address], [place] [address] Feb, [facility] [address] [id number] [address] [place] [address], [place] [address] Feb, [facility] [address] [id number] [address] [place] [address], [place] [address] Feb, [facility] [address] [id number] [address] [place] [address], [place] [address] Feb, [facility] [address] [id number] [address] [place] [address], [place] [address] Jan, [facility] [address] [id number] [address] [place] [address], [place] [address] Jan, [facility] [address] [id number] [address] [place] [address], [place] [address] Jan, [facility] [address] [id number] [address] [place] [address], [place] [address] December, [facility] [address] [id number] [address] [place] [address], [place] [address] Nov, [facility] [address] [id number] [address] [place] [address], [place] [address] Oct, [facility] [address] [id number] [address] [place] [address], [place] [address] Oct, [facility] [address] [id number] [address] [place] [address], [place] [address] 05 Oct, 2011 [facility] [address] [id number] [address] [place] [address], [place] [address] Oct, [facility] [address] [id number] [address] [place] [address], [place] [address] Aug, [facility] [address] [id number] [address] [place] [address], [place] [address] Aug, [facility] [address] [id number] [address] [place] [address], [place] [address] Aug, [facility] [address] [id number] [address] [place] [address], [place] [address] Aug, [facility] [address] [id number] [address] [place] [address], [place] [address] Aug, [facility] [address] [id number] [address] [place] [address], [place] [address] Aug, [facility] [address] [id number] [address] [place] [address], [place] [address] Aug, [facility] [address] [id number] [address] [place] [address], [place] [address] Aug, [facility] [address] [id number] [address] [place] [address], [place] [address] Jul, [facility] [address] [id number] [address] [place] [address], [place] [address] Jun, [facility] [address] [id number] [address] [place] [address], [place] [address] Jun, [facility] [address] [id number] [address] [place] [address], [place] [address] Jul, [facility] [address] [id number] [address] [place] [address], [place] [address] Jul, [facility] [address] [id number] [address] [place] [address], [place] [address] Jul, [facility] [address] [id number] [address] [place] [address], [place] [address] 14 Jul, 2010 [facility] [address] [id number] [address] [place] [address], [place] [address] 14 Jul, 2010 [facility] [address] [id number] [address] [place] [address], [place] [address] 24 Jun, 2010 [facility] [address] [id number] [address] [place] [address], [place] [address] May, [facility] [address] [id number] [address] [place] [address], [place] [address] Mar, [facility] [address] [id number] [address] [place] [address], [place] [address] Oct, [facility] [address] [id number] [address] [place] [address], [place] [address] Aug, [facility] [address] [id number] [address] [place] [address], [place] [address] 15 Jul, 2009 [facility] [address] [id number] [address] [place] [address], [place] [address] Jul, [facility] [address] [id number] [address] [place] [address], [place] [address] Jun, [facility] [address] [id number] [address] [place] [address], [place] [address] Jun, [facility] [address] [id number] [address] [place] [address], [place] [address] May, [facility] [address] [id number] [address] [place] [address], [place] [address] May, [facility] [address] [id number] [address] [place] [address], [place] [address] Mar, [facility] [address] [id number] [address] [place] [address], [place] [address] 14 Mar, 2009 [facility] [address] [id number] [address] [place] [address], [place] [address] Oct, IMMUNIZATIONS No Known Immunizations SOCIAL HISTORY Never Assessed REASON FOR VISIT f/u-Katty COTE, contract and PDM PLAN OF CARE Activity Details Follow Up 6 Weeks Reason: VITAL SIGNS Height 68 in 2018-10-15 Weight 201 lbs 2018-10-15 Heart Rate 102 bpm 2018-10-15 Respiratory Rate 20 2018-10-15 BMI 30.56 kg/m2 2018-10-15 Blood pressure systolic 124 mmHg 2018-10-15 Blood pressure diastolic 82 mmHg 2018-10-15 MEDICATIONS Medication Instructions Dosage Frequency Start Date End Date Duration S tatus Effexor XR 37.5 MG Orally Once a day 1 cap every morning for one week then take 2 caps every morning 24h Oct, 30 day(s) Active Trazodone HCl 100 mg Orally at night as needed for sleep 0.5-2 tabs Oct, 30 day(s) Active Xanax 0.5 MG Orally three times a day 1.5 tabs 8h 3 0 days Active RESULTS No Results PROCEDURES Procedure Date Ordered Result Body Site LAB NOT BILLED BY [facility] October 15, 2018 INSTRUCTIONS MEDICATIONS ADMINISTERED No Known Medications [...] replacement L1- L5 - Dr Benito pantoja ([facility]) Surgical History appendectomy 1983 Surgical History hysterectomy 1993 Surgical History dilatation and curettage Surgical History heart cath- Dr Shaw [address] Solano bowel and intestines seperated [address] solano removed skin tag and cyst 2018 Hospitalization History Hospitalization for surgery only
--- OUTSIDE RECORDS SUMMARY | 2019-11-08 08:47 | XMS REPORT ---
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 Active 97452993 Problem Opioid use disorder, moderate, in sustained remission F11.21 Active 79363585 Problem Tobacco use Z72.0 Active 21345575 8 Problem Cocaine use disorder, moderate, in sustained remission F14.21 Active 51078044 Problem GERD with esophagitis K21.0 Active 575017128 Problem Prediabetes 790.29 Active 0554691 Problem PTSD (post-traumatic stress disorder) F43.10 Active 01666250 Problem Bipolar disorder F31.9 Active 137 49709 Problem Gastroesophageal reflux disease, esophagitis pre sence not specified K21.9 Active 073882069 Problem Menopausal disorder N95.9 Active 789589035 Problem Insomnia, unspecified type G47.00 Act avelina 334433295 Problem Cigarette nicotine dependence without complication F17.210 Active 47107152 Problem Cannabis abuse F12.10 Active 40226 009 Problem Irritable bowel syndrome with diarrhea K58.0 Active 534681916 Problem Acute pain of left shoulder M25.512 Ac tive 64750169 Problem Mixed hyperlipidemia E78.2 Active 531251002 Problem Generalized anxiety disorder F41.1 A ctive 80730921 Problem Arthritis M19.90 Active 4754362 Problem Other chronic pain G89.29 Active 8 4281104 Problem Fibromyalgia M79.7 Active 6935375 05 Problem Perimenopausal vasomotor symptoms N95.1 Active 973987372 ALLERGIES No Information ENCOUNTERS Encounter Location Date Diagnosis [facility] [address] [facility] [id number] [address] [place] [address] May, Right upper quadrant pain R1 0.11 and Mixed hyperlipidemia E78.2 [facility] [address] [facility] [id number] [address] [place] [address] Mar, Perimenopausal vasomotor sym ptoms N95.1 [facility] [address] [facility] [id number] [address] [place] [address] Mar, [facility] [address] [facility] [id number] [address] [place] [address] Mar, [facility] [address] [facility] [id number] [address] [place] [address] Mar, [facility] [address] [facility] [id number] [address] [place] [address] Mar, Perimenopausal vasomotor sym ptoms N95.1 ; Irritable bowel syndrome with diarrhea K58.0 ; Insomnia, unspecified type G47.00 and Weight gain R63.5 [facility] [address] [facility] [id number] [address] [place] [address] Feb, [facility] [address] [place] [id number] [address] [place] [address] Feb, [facility] [address] [place] [id number] [address] [place] [address] Jan, [facility] [address] [place] [id number] [address] [place] [address] Jan, Fibromyalgia M79.7 ; Insect bite (nonvenomous) of lower back and pelvis, sequela S30.860S ; Bitten or stung by nonvenomous insect and other nonvenomous arthropods, sequela W57.XXXS ; Arthritis M19.90 and Menopausal disorder N95.9 [facility] [address] [place] [id number] [address] [place] [address] Jan, [facility] [address] [address] 04 Jan, 2019 Mixed hyperlipidemia E78.2 [place] [address] [address] December, Screening for breast cancer Z12.31 and Breast lump N63.0 [place] [address] [address] December, Chest pain, unspecified type R07.9 [place] [address] [address] December, Chest pain, unspecified type R07.9 ; Gastroesophageal reflux disease, esophagitis presence not specified K21.9 and Left breast lump N63.20 [place] [address] [address] December, [facility] [address] [address] December, Suprapubic abdominal pain R1 0.2 and Dysuria R30.0 [place] [address] [address] December, [place] [address] [address] 07 Dec, 2018 Cannabis abuse F12.10 ; Gene ralized anxiety disorder F41.1 ; Methamphetamine use disorder, severe, in sustained remission F15.21 ; Alcohol use disorder, mild, in sustained remission F10.11 ; PTSD (post-traumatic stress disorder) F43.10 ; Cocaine use disorder, moderate, in sustained remission F14.21 and Bipolar disorder F31.9 [place] [address] [address] Nov, Major depressive disorder, r ecurrent episode, moderate F33.1 ; Cannabis abuse F12.10 ; Generalized anxiety disorder F41.1 ; Methamphetamine use disorder, severe, in sustained remission F15.21 ; Alcohol use disorder, mild, in sustained remission F10.11 ; PTSD (post-traumatic stress disorder) F43.10 and Cocaine use disorder, moderate, in sustained remission F14.21 [facility] [address] [id number] [address] [place] [address] Oct, Major depressive disorder, r ecurrent episode, moderate F33.1 ; Cannabis abuse F12.10 ; Generalized anxiety disorder F41.1 ; Methamphetamine use disorder, severe, in sustained remission F15.21 ; Alcohol use disorder, mild, in sustained remission F10.11 ; PTSD (post-traumatic stress disorder) F43.10 and Cocaine use disorder, moderate, in sustained remission F14.21 [facility] [address] [id number] [address] [place] [address] Sep, Major depressive disorder, r ecurrent episode, moderate F33.1 [facility] [address] [id number] [address] [place] [id number] Aug, [facility] [address] [facility] [id number] [address] [place] [address] Jul, Dysuria R30.0 [facility] [address] [id number] [address] [place] [address] Jul, Major depressive disorder, r ecurrent episode, moderate F33.1 [facility] [address] [facility] [id number] [address] [place] [address] Jun, Major depressive disorder, r ecurrent episode, moderate F33.1 [facility] [address] [facility] [id number] [address] [place] [address] Jun, Major depressive disorder, r ecurrent episode, moderate F33.1 [facility] [address] [id number] [address] [place] [address] Jun, Acute pain of left shoulder M25.512 and Cigarette nicotine dependence without complication F17.210 [facility] [address] [id number] [address] [place] [address] May, [facility] [address] [facility] [id number] [address] [place] [address] May, Cocaine use disorder, modera te, in sustained remission F14.21 [facility] [address] [facility] [id number] [address] [place] [address] May, [facility] [address] [place] [address] May, 18 Dental examination Z01.20 [facility] [address] [id number] [address] [place] [id number] May, Dental examination Z01.20 an d Caries K02.9 [facility] [address] [facility] [id number] [address] [place] [address] May, Common wart B07.8 [facility] [address] [facility] [id number] [address] [place] [address] May, [facility] [address] [facility] [id number] [address] [place] [address] 27 Apr, 2018 Cocaine use disorder, modera te, in sustained remission F14.21 [facility] [address] [facility] [id number] [address] [place] [address] 14 Apr, 2018 [facility] [address] [facility] [id number] [place] [id number] 13 Apr, 2018 Dental examination Z01.20 [facility] [address] [facility] [id number] [address] [place] [address] [id number] Mar, Encounter for dental exam an d cleaning w/o abnormal findings Z01.20 [facility] [address] [facility] [id number] [address] [place] [address] Mar, [facility] [address] [facility] [id number] [address] [place] [address] Feb, Cocaine use disorder, modera te, in [...] disorder, recurrent episode, moderate F33.1 [place] [address] [place] [id number] [address] [place] [address] Jan, Cocaine use disorder, modera te, in sustained remission F14.21 [place] [address] [place] [id number] [address] [place] [address] Jan, Cocaine use disorder, modera te, in [...] Major depressive disorder, recurrent episode, moderate F33.1 [place] [address] [place] [id number] [address] [place] [address] Jan, Dysuria R30.0 and GERD with esophagitis K21.0 [place] [address] [place] [id number] [address] [place] [address] December, Major depressive disorder, r ecurrent episode, moderate F33.1 [place] [address] [place] [id number] [address] [place] [address] December, [place] [address] [place] [id number] [address] [place] [address] December, Major depressive disorder, r ecurrent episode, [...] sustained remission F10.11 and Tobacco use Z72.0 [place] [address] [place] [id number] [address] [place] [address] Nov, [facility] [address] [id number] [place] [address] Nov, [facility] [address] [place] [address] Nov, Wellness examination Z00.00 ; Encounter for immunization Z23 ; Screening for osteoporosis Z13.820 ; Screening for breast cancer Z12.31 and Left breast lump N63.20 [facility] [address] [place] [id number] [address] [place] [address] [id number] Oct, Dental examination Z01.20 [facility] [address] [place] [address] Oct, [facility] [address] [place] [id number] [address] [place] [address] Oct, [facility] [address] [place] [id number] [address] [place] [address] 16 Sep, 2017 [facility] [address] [place] [id number] [address] [place] [address] 15 Sep, 2017 [facility] [address] [place] [id number] [address] [place] [address] 14 Sep, 2017 Left otitis media with effus ion H65.92 ; Acute suppurative otitis media of right ear without spontaneous rupture of tympanic membrane, recurrence not specified H66.001 ; Dizziness R42 and Fatigue 780.79 [facility] [address] [place] [id number] [address] [place] [address] Aug, Major depressive disorder, r ecurrent episode, [...] sustained remission F10.11 and Tobacco use Z72.0 [facility] [address] [place] [id number] [address] [place] [address] Aug, Ingrown right big toenail L6 0.0 [facility] [address] [facility] [id number] [address] [place] [address] Aug, [facility] [address] [facility] [id number] [address] [place] [address] Aug, PTSD (post-traumatic stress disorder) F43.10 [facility] [address] [facility] [id number] [address] [place] [address] Aug, Major depressive disorder, r ecurrent episode, moderate F33.1 ; Generalized anxiety disorder F41.1 and Cannabis abuse F12.10 [facility] [address] [facility] [id number] [address] [place] [address] Jul, [facility] [address] [facility] [id number] [address] [place] [address] Jul, [facility] [address] [facility] [id number] [address] [place] [address] Jul, [facility] [address] [facility] [id number] [address] [place] [address] Jul, Major depressive disorder, r ecurrent episode, moderate F33.1 ; Generalized anxiety disorder F41.1 and Cannabis abuse F12.10 [facility] [address] [facility] [id number] [address] [place] [address] Jul, [facility] [address] [facility] [id number] [address] [place] [address] Jul, [facility] [address] [facility] [id number] [address] [place] [address] Jul, Hyperlipidemia 272.4 [facility] [address] [facility] [id number] [address] [place] [address] 18 Jul, 2017 PTSD (post-traumatic stress disorder) F43.10 [facility] [address] [place] [id number] [address] [place] [address] Jul, Tobacco use Z72.0 ; Alcohol use disorder, mild, in sustained remission F10.11 ; Opioid use disorder, moderate, in sustained remission F11.21 ; Methamphetamine use disorder, severe, in sustained remission F15.21 ; Cocaine use disorder, moderate, in sustained remission F14.21 ; PTSD (post-traumatic stress disorder) F43.10 ; Major depressive disorder, recurrent episode, moderate F33.1 ; Generalized anxiety disorder F41.1 and Cannabis abuse F12.10 [place] [address] [place] [id number] [address] [place] [address] Jul, [place] [address] [address] Jul, Dysuria R30.0 and Mixed hype rlipidemia E78.2 [place] [id number] [place] [address] Jun, Major depressive disorder, r ecurrent episode, moderate F33.1 ; Generalized anxiety disorder F41.1 and Cannabis abuse F12.10 [place] [address] [place] [id number] [address] [place] [address] Jun, [address] [address] Jun, Generalized anxiety disorder F41.1 ; Major depressive disorder, recurrent episode, moderate F33.1 ; PTSD (post-traumatic stress disorder) F43.10 ; Opioid use disorder, moderate, in sustained remission F11.21 ; Cannabis abuse F12.10 ; Alcohol use disorder, mild, in sustained remission F10.11 ; Methamphetamine use disorder, severe, in sustained remission F15.21 ; Cocaine use disorder, moderate, in sustained remission F14.21 and Tobacco use Z72.[address] [address] Jun, Major depressive disorder, r ecurrent episode, moderate F33.1 ; Generalized anxiety disorder F41.1 and Cannabis abuse F12.[address] [address] Jun, [facility] [address] [place] [id number] [address] [place] [address] Jun, [facility] [address] [address] Jun, Major depressive disorder, r ecurrent episode, moderate F33.1 ; Generalized anxiety disorder F41.1 and Cannabis abuse F12.10 [facility] [id number] [place] [id number] Mar, Dental examination Z01.20 [facility] [address] [place] [id number] [place] [address] [id number] Feb, Dental examination Z01.20 [facility] [address] [address] Mar, [facility] [address] [address] Mar, [facility] [address] [address] Feb, Hyperlipidemia 272.4 and Pre diabetes 790.29 [place] [address] [address] Feb, Fatigue 780.79 and Hyperlipi demia 272.4 [place] [address] [address] Feb, Lumbago 724.2 ; Hyperlipidem ia 272.4 ; Insomnia 780.52 and Fatigue 780.79 [facility] [address] [address] Nov, [facility] [address] [address] Nov, [facility] [address] [address] Mar, [facility] [address] [address] Mar, [facility] [address] [id number] [facility] [address] Jan, [facility] [place] [facility] [address] [id number] [address] [place] [address], [place] [address] Jan, [facility] [address] [id number] [address] [place] [address], [place] [address] December, [facility] [place] [facility] [address] [id number] [address] [place] [address], [place] [address] December, [facility] [address] [id number] [address] [place] [address], [place] [address] Nov, [facility] [address] [id number] [address] [place] [address], [place] [address] Nov, [facility] [address] [id number] [address] [place] [address], [place] [address] Nov, [facility] [place] [facility] [address] [id number] [address] [place] [address], [place] [address] Nov, [facility] [address] [id number] [address] [place] [address], [place] [address] Nov, [facility] [address] [id number] [address] [place] [address], [place] [address] Nov, [facility] [address] [id number] [address] [place] [address], [place] [address] 31 Oct, 2013 [facility] [place] [facility] [address] [id number] [address] [place] [address], [place] [address] 31 Oct, 2013 [facility] [place] [facility] [address] [id number] [address] [place] [address], [place] [address] 20 Oct, 2013 [facility] [place] [facility] [address] [id number] [address] [place] [address], [place] [address] 20 Oct, 2013 [facility] [place] [facility] [address] [id number] [address] [place] [address], [place] [address] 19 Oct, 2013 [facility] [place] [facility] [address] [id number] [address] [place] [address] Oct, [facility] [address] [id number] [address] [place] [address], [place] [address] Oct, [facility] [place] [address] [id number] [address] [place] [address], [place] [address] Oct, [facility] [address] [id number] [address] [place] [address], [place] [address] Oct, [facility] [address] [id number] [address] [place] [address], [place] [address] Oct, [facility] [address] [id number] [address] [place] [address], [place] [address] Oct, [facility] [address] [id number] [address] [place] [address], [place] [address] Oct, [facility] [address] [id number] [address] [place] [address], [place] [address] Oct, [facility] [address] [id number] [address] [place] [address], [place] [address] Sep, [facility] [address] [id number] [address] [place] [address], [place] [address] Sep, [facility] [address] [id number] [address] [place] [address], [place] [address] Sep, [facility] [place] [facility] [address] [id number] [address] [place] [address], [place] [address] Sep, [facility] [address] [id number] [address] [place] [address], [place] [address] Sep, [facility] [place] [facility] [address] [id number] [address] [place] [address], [place] [address] Sep, [facility] [place] [facility] [address] [id number] [address] [place] [address], [place] [address] 18 Sep, 2013 [facility] [place] [facility] [address] [id number] [address] [place] [address], [place] [address] 18 Sep, 2013 [facility] [address] [id number] [address] [place] [address], [place] [address] 14 Sep, 2013 [facility] [address] [id number] [address] [place] [address], [place] [address] 14 Sep, 2013 [facility] [address] [id number] [address] [place] [address], [place] [address] 14 Sep, 2013 [facility] [address] [id number] [address] [place] [address], [place] [address] 14 Sep, 2013 [facility] [address] [id number] [address] [place] [address], [place] [address] 14 Sep, 2013 [facility] [address] [id number] [address] [place] [address], [place] [address] 14 Sep, 2013 [facility] [address] [id number] [address] [place] [address], [place] [address] 13 Sep, 2013 [facility] [address] [id number] [address] [place] [address], [place] [address] 13 Sep, 2013 [facility] [address] [id number] [address] [place] [address], [place] [address] 12 Sep, 2013 [facility] [address] [id number] [address] [place] [address], [place] [address] 12 Sep, 2013 [facility] [place] [facility] [address] [id number] [address] [place] [address], [place] [address] 03 Sep, 2013 [facility] [place] [address] [id number] [address] [place] [address], [place] [address] Sep, [facility] [place] [address] [id number] [address] [place] [address], [place] [address] Aug, [facility] [place] [address] [id number] [address] [place] [address], [place] [address] Aug, [facility] [address] [id number] [address] [place] [address], [place] [address] Aug, [facility] [address] [id number] [address] [place] [address], [place] [address] Aug, [facility] [address] [id number] [address] [place] [address], [place] [address] Aug, [facility] [address] [id number] [address] [place] [address], [place] [address] Jul, [facility] [address] [id number] [address] [place] [address], [place] [address] Jul, [facility] [address] [id number] [address] [place] [address], [place] [address] Jul, [facility] [address] [id number] [address] [place] [address], [place] [address] Jul, [facility] [address] [id number] [address] [place] [address], [place] [address] Jul, [facility] [address] [id number] [address] [place] [address], [place] [address] Jul, [facility] [address] [id number] [address] [place] [address], [place] [address] Jul, [facility] [address] [id number] [address] [place] [address], [place] [address] Jul, [facility] [address] [id number] [address] [place] [address], [place] [address] Jul, [facility] [address] [id number] [address] [place] [address], [place] [address] Jun, [facility] [address] [id number] [address] [place] [address], [place] [address] Jun, [facility] [address] [id number] [address] [place] [address], [place] [address] Jun, [facility] [address] [id number] [address] [place] [address], [place] [address] Jun, [facility] [address] [id number] [address] [place] [id number] Jun, [facility] [address] [id number] [address] [place] [address], [place] [address] Jun, [facility] [address] [id number] [address] [place] [id number] Jun, [facility] [address] [id number] [address] [place] [address], [place] [address] Jun, [facility] [address] [id number] [address] [place] [id number] Jun, [facility] [address] [id number] [address] [place] [address], [place] [address] Jun, [facility] [address] [id number] [address] [place] [address], [place] [address] May, [facility] [address] [id number] [address] [place] [id number] May, [facility] [address] [id number] [address] [place] [address], [place] [address] May, [facility] [address] [id number] [address] [place] [id number] May, [facility] [address] [id number] [address] [place] [id number] 16 May, 2013 [facility] [address] [id number] [address] [place] [address] May, [facility] [address] [id number] [address] [place] [address] 11 May, 2013 [facility] [address] [id number] [address] [place] [address] May, [facility] [address] [id number] [address] [place] [address] May, [facility] [address] [id number] [address] [place] [address], [place] [address] 26 Apr, 2013 [facility] [address] [id number] [address] [place] [address], [place] [address] 16 Apr, 2013 [facility] [address] [id number] [address] [place] [address], [place] [address] 12 Apr, 2013 [facility] [address] [id number] [address] [place] [address], [place] [address] Apr, [facility] [address] [id number] [address] [place] [address], [place] [address] Mar, [facility] [address] [id number] [address] [place] [address], [place] [address] Mar, [facility] [address] [id number] [address] [place] [address], [place] [address] Mar, [facility] [address] [id number] [address] [place] [address], [place] [address] Mar, [facility] [address] [id number] [address] [place] [address], [place] [address] Mar, [facility] [address] [id number] [address] [place] [address], [place] [address] Mar, [facility] [address] [id number] [address] [place] [address], [place] [address] Mar, [facility] [address] [id number] [address] [place] [address], [place] [address] Feb, [facility] [address] [id number] [address] [place] [address], [place] [address] Feb, [facility] [address] [id number] [address] [place] [address], [place] [address] Feb, [facility] [address] [id number] [address] [place] [address], [place] [address] Feb, [facility] [address] [id number] [address] [place] [address], [place] [address] Feb, [facility] [address] [id number] [address] [place] [address], [place] [address] Feb, [facility] [address] [id number] [facility] [address] Feb, [facility] [address] [id number] [address] [place] [address], [place] [address] Feb, [facility] [address] [id number] [address] [place] [address], [place] [address] Feb, [facility] [address] [id number] [address] [place] [address], [place] [address] Feb, [facility] [address] [id number] [address] [place] [address], [place] [address] Feb, [facility] [address] [id number] [address] [place] [address], [place] [address] Jan, [facility] [address] [id number] [address] [place] [address], [place] [address] Jan, [facility] [address] [id number] [address] [place] [address], [place] [address] December, [facility] [address] [id number] [address] [place] [address], [place] [address] December, [facility] [address] [id number] [address] [place] [address], [place] [address] Nov, [facility] [address] [id number] [address] [place] [address], [place] [address] Nov, [facility] [address] [id number] [address] [place] [address], [place] [address] Oct, [facility] [address] [id number] [address] [place] [address], [place] [address] Oct, [facility] [address] [id number] [address] [place] [address], [place] [address] Oct, [facility] [address] [id number] [address] [place] [address], [place] [address] Oct, [facility] [address] [id number] [address] [place] [address], [place] [address] 27 Sep, 2012 [facility] [address] [id number] [address] [place] [address], [place] [address] Sep, [facility] [address] [id number] [address] [place] [address], [place] [address] Sep, [facility] [address] [id number] [address] [place] [address], [place] [address] Sep, [facility] [address] [id number] [address] [place] [address], [place] [address] Aug, [facility] [address] [id number] [address] [place] [address], [place] [address] Aug, [facility] [address] [id number] [address] [place] [address], [place] [address] Jul, [facility] [address] [id number] [address] [place] [address], [place] [address] Jul, [facility] [address] [id number] [address] [place] [address], [place] [address] Jul, [facility] [address] [id number] [address] [place] [address], [place] [address] Jul, [facility] [address] [id number] [address] [place] [address], [place] [address] Jul, [facility] [address] [id number] [address] [place] [address], [place] [address] Jul, [facility] [address] [id number] [address] [place] [address], [place] [address] Jun, [facility] [address] [id number] [address] [place] [address], [place] [address] Jun, [facility] [address] [id number] [address] [place] [address], [place] [address] Jun, [facility] [address] [id number] [address] [place] [address], [place] [address] Jun, [facility] [address] [id number] [address] [place] [address], [place] [address] Jun, [facility] [address] [id number] [address] [place] [address], [place] [address] May, [facility] [address] [id number] [address] [place] [address], [place] [address] May, [facility] [address] [id number] [address] [place] [address], [place] [address] May, [facility] [address] [id number] [address] [place] [address], [place] [address] May, [facility] [address] [id number] [address] [place] [address], [place] [address] May, [facility] [address] [id number] [address] [place] [address], [place] [address] May, [facility] [address] [id number] [address] [place] [address], [place] [address] May, [facility] [address] [id number] [address] [place] [address], [place] [address] May, [facility] [address] [id number] [address] [place] [address], [place] [address] Mar, [facility] [address] [id number] [address] [place] [address], [place] [address] Mar, [facility] [address] [id number] [address] [place] [address], [place] [address] Mar, [facility] [address] [id number] [address] [place] [address], [place] [address] Feb, [facility] [address] [id number] [address] [place] [address], [place] [address] Feb, [facility] [address] [id number] [address] [place] [address], [place] [address] Feb, [facility] [address] [id number] [address] [place] [address], [place] [address] Feb, [facility] [address] [id number] [address] [place] [address], [place] [address] Jan, [facility] [address] [id number] [address] [place] [address], [place] [address] Jan, [facility] [address] [id number] [address] [place] [address], [place] [address] Jan, [facility] [address] [id number] [address] [place] [address], [place] [address] December, [facility] [address] [id number] [address] [place] [address], [place] [address] Nov, [facility] [address] [id number] [address] [place] [address], [place] [address] Oct, [facility] [address] [id number] [address] [place] [address], [place] [address] Oct, [facility] [address] [id number] [address] [place] [address], [place] [address] Oct, [facility] [address] [id number] [address] [place] [address], [place] [address] Oct, [facility] [address] [id number] [address] [place] [address], [place] [address] Aug, [facility] [address] [id number] [address] [place] [address], [place] [address] Aug, [facility] [address] [id number] [address] [place] [address], [place] [address] Aug, [facility] [address] [id number] [address] [place] [address], [place] [address] Aug, [facility] [address] [id number] [address] [place] [address], [place] [address] Aug, [facility] [address] [id number] [address] [place] [address], [place] [address] Aug, [facility] [address] [id number] [address] [place] [address], [place] [address] Aug, [facility] [address] [id number] [address] [place] [address], [place] [address] Aug, [facility] [address] [id number] [address] [place] [address], [place] [address] Jul, [facility] [address] [id number] [address] [place] [address], [place] [address] Jun, [facility] [address] [id number] [address] [place] [address], [place] [address] Jun, [facility] [address] [id number] [address] [place] [address], [place] [address] 31 Jul, 2010 [facility] [address] [id number] [address] [place] [address], [place] [address] Jul, [facility] [address] [id number] [address] [place] [address], [place] [address] Jul, [facility] [address] [id number] [address] [place] [address], [place] [address] 14 Jul, 2010 [facility] [address] [id number] [address] [place] [address], [place] [address] 14 Jul, 2010 [facility] [address] [id number] [address] [place] [address], [place] [address] 24 Jun, 2010 [facility] [address] [id number] [address] [place] [address], [place] [address] May, [facility] [address] [id number] [address] [place] [address], [place] [address] Mar, [facility] [address] [id number] [address] [place] [address], [place] [address] Oct, [facility] [address] [id number] [address] [place] [address], [place] [address] Aug, [facility] [address] [id number] [address] [place] [address], [place] [address] Jul, [facility] [address] [id number] [address] [place] [address] Jul, [facility] [address] [id number] [address] [place] [address] Jun, [facility] [address] [id number] [address] [place] [address] Jun, [facility] [address] [id number] [address] [place] [address] May, [facility] [address] [id number] [address] [place] [address] May, [facility] [address] [facility] [id number] [address] [place] [address] Mar, [facility] [address] [facility] [id number] [address] [place] [address] Mar, [facility] [address] [facility] [id number] [address] [place] [address] Oct, IMMUNIZATIONS No Known Immunizations SOCIAL HISTORY Never Assessed REASON FOR VISIT PLAN OF CARE VITAL SIGNS MEDICATIONS No Known Medications RESULTS No Results PROCEDURES No Known [...] replacement L1- L5 - Dr Benito pantoja ([place]) Surgical History appendectomy 1983 Surgical History hysterectomy 1993 Surgical History dilatation and curettage Surgical History heart cath- Dr Shaw [address] Solano bowel and intestines [address] solano removed skin tag and cyst 2017 Hospitalization History Hospitalization for surgery only
--- OUTSIDE RECORDS SUMMARY | 2019-11-08 08:47 | XMS REPORT ---
Author Author Elizabeth GUADALUPE Organization [facility] Address [address] [place] [address] Care Team Providers Care Automobile Racer Name Role Phone DON GUADALUPE Unavailable PROBLEMS Type Condition ICD9-CM Code [id number] Code Onset Dates Condition S tatus SNOMED Code Problem Cannabis abuse F12.10 Active 13027 009 Problem Mixed hyperlipidemia E78.2 Active 538157909 Problem Generalized anxiety disorder F41.1 A ctive 74324757 Problem Major depressive disorder, recurrent episode, moderate F33.1 Active 912178005 Problem Tobacco use Z72.0 Active 86772565 8 Problem PTSD (post-traumatic stress disorder) F43.10 Active 84869838 Problem Opioid use disorder, moderate, in sustained remission F11.21 Active 38109376 Problem Alcohol use disorder, mild, in sustained remission F10.11 Active 76421486 Problem GERD with esophagitis K21.0 Active 428091535 Problem Acute pain of left shoulder M25.512 Ac tive 56095885 Problem Cigarette nicotine dependence without complication F17.210 Active 01047586 Problem Fibromyalgia M79.7 Active 5459609 05 Problem Cocaine use disorder, moderate, in sustained remission F14.21 Active 76013206 Problem Other chronic pain G89.29 Active 8 3036481 Problem Methamphetamine use disorder, severe, 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 [id number] [address] [place] [address] Mar, [facility] [address] [facility] [id number] [address] [place] [id number] 16 Feb, 2019 [facility] [id number] [place] [address] Feb, [facility] [address] [address] Jan, [facility] [address] [address] Jan, Fibromyalgia M79.7 ; Insect bite (nonvenomous) of lower back and pelvis, sequela S30.860S ; Bitten or stung by nonvenomous insect and other nonvenomous arthropods, sequela W57.XXXS ; Arthritis M19.90 and Menopausal disorder N95.9 [place] [address] [address] Jan, [place] [address] [address] Jan, Mixed hyperlipidemia E78.2 [place] [address] [address] December, Screening for breast cancer Z12.31 and Breast lump N63.0 [place] [address] [place] [id number] [address] [place] [address] December, Chest pain, unspecified type R07.9 [place] [address] [place] [id number] [address] [place] [address] December, Chest pain, unspecified type R07.9 ; Gastroesophageal reflux disease, esophagitis presence not specified K21.9 and Left breast lump N63.20 [place] [address] [place] [id number] [place] [address] December, [facility] [address] [place] [id number] [address] [place] [address] December, Suprapubic abdominal pain R1 0.2 and Dysuria R30.0 [place] [address] [place] [address] December, [facility] [address] [place] [id number] [address] [place] [address] December, Cannabis abuse F12.10 ; Gene ralized anxiety disorder F41.1 ; Methamphetamine use disorder, severe, in sustained remission F15.21 ; Alcohol use disorder, mild, in sustained remission F10.11 ; PTSD (post-traumatic stress disorder) F43.10 ; Cocaine use disorder, moderate, in sustained remission F14.21 and Bipolar disorder F31.9 [place] [id number] [place] [id number] [address] [place] [address] Nov, Major depressive disorder, r ecurrent episode, moderate F33.1 ; Cannabis abuse F12.10 ; Generalized anxiety disorder F41.1 ; Methamphetamine use disorder, severe, in sustained remission F15.21 ; Alcohol use disorder, mild, in sustained remission F10.11 ; PTSD (post-traumatic stress disorder) F43.10 and Cocaine use disorder, moderate, in sustained remission F14.21 [facility] [address] [place] [id number] [address] [place] [address] Oct, Major depressive disorder, r ecurrent episode, moderate F33.1 ; Cannabis abuse F12.10 ; Generalized anxiety disorder F41.1 ; Methamphetamine use disorder, severe, 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 ; Alcohol use disorder, mild, in sustained remission F10.11 ; PTSD (post-traumatic stress disorder) F43.10 and Cocaine use disorder, moderate, in sustained remission F14.21 [facility] [address] [place] [id number] [address] [place] [address] Sep, Major depressive disorder, r ecurrent episode, moderate F33.1 [facility] [address] [facility] [id number] [address] [place] [address] [id number] Aug, [facility] [address] [place] [id number] [address] [place] [address] Jul, Dysuria R30.0 [facility] [address] [place] [id number] [address] [place] [address] Jul, Major depressive disorder, r ecurrent episode, moderate F33.1 [facility] [address] [id number] [address] [place] [address] Jun, Major depressive disorder, r ecurrent episode, moderate F33.1 [facility] [address] [id number] [address] [place] [address] Jun, Major depressive disorder, r ecurrent episode, moderate F33.1 [facility] [address] [facility] [id number] [address] [place] [address] Jun, Acute pain of left shoulder M25.512 and Cigarette nicotine dependence without complication F17.210 [facility] [address] [facility] [id number] [address] [place] [address] May, [facility] [address] [facility] [id number] [address] [place] [address] May, Cocaine use disorder, modera te, in sustained remission F14.21 [facility] [address] [facility] [id number] [address] [place] [address] May, [facility] [address] [place] [address] May, 18 Dental examination Z01.20 [facility] [address] [facility] [id number] [address] [place] [address] [id number] May, Dental examination Z01.20 an d Caries K02.9 [facility] [address] [facility] [id number] [address] [place] [address] May, Common wart B07.8 [facility] [address] [facility] [id number] [address] [place] [address] May, [facility] [address] [facility] [id number] [address] [place] [address] Apr, Cocaine use disorder, modera te, in sustained remission F14.21 [facility] [address] [facility] [id number] [address] [place] [id number] 14 Apr, 2018 [facility] [address] [facility] [id number] [address] [place] [address] [id number] 13 Apr, 2018 Dental examination Z01.20 [facility] [address] [facility] [id number] [address] [place] [address] [id number] 10 Mar, 2018 Encounter for dental exam an d cleaning w/o abnormal findings Z01.20 [facility] [address] [place] [id number] [address] [place] [id number] 07 Mar, 2018 [place] [address] [place] [id number] [address] [place] [address] Feb, Cocaine use disorder, modera te, in [...] disorder, recurrent episode, moderate F33.1 [place] [address] [place] [id number] [address] [place] [address] Jan, Cocaine use disorder, modera te, in sustained remission F14.21 [place] [address] [place] [id number] [address] [place] [address] Jan, Cocaine use disorder, modera te, in [...] disorder, recurrent episode, moderate F33.1 [place] [address] [place] [id number] [address] [place] [address] Jan, Dysuria R30.0 and GERD with esophagitis K21.0 [place] [address] [place] [id number] [address] [place] [address] December, Major depressive disorder, r ecurrent episode, moderate F33.1 [facility] [address] [facility] [id number] [address] [place] [address] December, [facility] [address] [facility] [id number] [address] [place] [address] December, Major depressive disorder, r ecurrent episode, [...] remission F10.11 and Tobacco use Z72.0 [facility] [address] [facility] [id number] [address] [place] [address] Nov, [facility] [address] [id number] [place] [address] Nov, [facility] [address] [facility] [id number] [address] [place] [address] Nov, Wellness examination Z00.00 ; Encounter for immunization Z23 ; Screening for osteoporosis Z13.820 ; Screening for breast cancer Z12.31 and Left breast lump N63.20 [facility] [address] [facility] [id number] [address] [place] [address] [id number] Oct, Dental examination Z01.20 [facility] [address] [facility] [id number] [address] [place] [address] Oct, [facility] [address] [facility] [id number] [address] [place] [address] Oct, [facility] [address] [facility] [id number] [address] [place] [address] Sep, [facility] [address] [facility] [id number] [address] [place] [address] Sep, [facility] [address] [facility] [id number] [address] [place] [address] 14 Sep, 2017 Left otitis media with effus ion H65.92 ; Acute suppurative otitis media of right ear without spontaneous rupture of tympanic membrane, recurrence not specified H66.001 ; Dizziness R42 and Fatigue 780.79 [place] [address] [place] [id number] [address] [place] [phone] Aug, Major depressive disorder, r ecurrent episode, [...] sustained remission F10.11 and Tobacco use Z72.0 [facility] [address] [place] [id number] [address] [place] [address] Aug, Ingrown right big toenail L6 0.0 [facility] [address] [facility] [id number] [address] [place] [phone] Aug, [place] [address] [place] [id number] [address] [place] [phone] Aug, PTSD (post-traumatic stress disorder) F43.10 [place] [address] [place] [id number] [address] [place] [address] Aug, Major depressive disorder, r ecurrent episode, moderate F33.1 ; Generalized anxiety disorder F41.1 and Cannabis abuse F12.10 [facility] [address] [facility] [id number] [address] [place] [phone] Jul, [place] [address] [place] [id number] [address] [place] [address] Jul, [place] [address] [place] [id number] [address] [place] [address] Jul, [place] [address] [place] [address] Jul, Major depressive disorder, r ecurrent episode, moderate F33.1 ; Generalized anxiety disorder F41.1 and Cannabis abuse F12.10 [place] [address] [place] [id number] [address] [place] [address] Jul, [place] [address] [address] Jul, [place] [address] [address] Jul, Hyperlipidemia 272.[address] [address] Jul, PTSD (post-traumatic stress disorder) F43.10 [place] [address] [address] Jul, Tobacco use Z72.0 ; Alcohol use [...] F41.1 and Cannabis abuse F12.10 [place] [address] [address] Jul, [place] [address] [address] Jul, Dysuria R30.0 and Mixed hype rlipidemia E78.[address] [address] Jun, Major depressive disorder, r ecurrent episode, moderate F33.1 ; Generalized anxiety disorder F41.1 and Cannabis abuse F12.10 [place] [address] [address] Jun, [facility] [address] [id number] [address] [place] [address] Jun, Generalized anxiety disorder F41.1 ; Major [...] remission F14.21 and Tobacco use Z72.0 [facility] [address] [id number] [address] [place] [id number] Jun, Major depressive disorder, r ecurrent episode, moderate F33.1 ; Generalized anxiety disorder F41.1 and Cannabis abuse F12.10 [facility] [address] [id number] [address] [place] [phone] Jun, [facility] [address] [id number] [address] [place] [address] Jun, [facility] [address] [id number] [address] [place] [address] Jun, Major depressive disorder, r ecurrent episode, moderate F33.1 ; Generalized anxiety disorder F41.1 and Cannabis abuse F12.10 [facility] [address] [id number] [address] [place] [id number] Mar, Dental examination Z01.20 [facility] [address] [id number] [address] [place] [address] [id number] Feb, Dental examination Z01.20 [facility] [address] [id number] [address] [place] [address] Mar, [facility] [address] [id number] [address] [place] [address] Mar, [facility] [address] [id number] [address] [place] [id number] Feb, Hyperlipidemia 272.4 and Pre diabetes 790.29 [facility] [address] [id number] [address] [place] [address] Feb, Fatigue 780.79 and Hyperlipi demia 272.4 [facility] [address] [id number] [address] [place] [address] Feb, Lumbago 724.2 ; Hyperlipidem ia 272.4 ; Insomnia 780.52 and Fatigue 780.79 [facility] [address] [id number] [address] [place] [address] Nov, [facility] [address] [id number] [address] [place] [address] Nov, [facility] [address] [id number] [address] [place] [phone] Mar, [facility] [address] [id number] [address] [place] [address] Mar, [facility] [address] [id number] [address] [place] [address] Jan, [facility] [address] [id number] [address] [place] [phone] Jan, [facility] [address] [facility] [id number] [address] [place] [phone] December, [facility] [address] [id number] [address] [place] [address] December, [facility] [address] [id number] [address] [place] [address] Nov, [facility] [address] [id number] [address] [place] [address] Nov, [facility] [address] [id number] [address] [place] [address] Nov, [facility] [address] [id number] [address] [place] [phone] Nov, [facility] [address] [id number] [facility] [place] [address] 28 Nov, 2013 [facility] [address] [id number] [address] [place] [address], [place] [address] 28 Nov, 2013 [facility] [address] [id number] [facility] [place] [address] 31 Oct, 2013 [facility] [address] [id number] [address] [place] [address], [place] [address] 31 Oct, 2013 [facility] [address] [id number] [address] [place] [address], [place] [address] 20 Oct, 2013 [facility] [address] [id number] [address] [place] [address], [place] [address] 20 Oct, 2013 [facility] [address] [id number] [address] [place] [address], [place] [address] Oct, [facility] [address] [id number] [address] [place] [address], [place] [address] Oct, [facility] [address] [id number] [address] [place] [address], [place] [address] Oct, [facility] [address] [id number] [address] [place] [address], [place] [address] Oct, [facility] [address] [id number] [address] [place] [address], [place] [address] Oct, [facility] [address] [id number] [address] [place] [address], [place] [address] 04 Oct, 2013 [facility] [address] [id number] [address] [place] [address], [place] [address] 04 Oct, 2013 [facility] [address] [id number] [address] [place] [address], [place] [address] Oct, [facility] [address] [id number] [address] [place] [address], [place] [address] Oct, [facility] [address] [id number] [address] [place] [address], [place] [address] 24 Sep, 2013 [facility] [address] [id number] [address] [place] [address], [place] [address] 24 Sep, 2013 [facility] [address] [id number] [address] [place] [address], [place] [address] 20 Sep, 2013 [facility] [address] [id number] [address] [place] [address], [place] [address] 20 Sep, 2013 [facility] [address] [id number] [address] [place] [address], [place] [address] 20 Sep, 2013 [facility] [address] [id number] [address] [place] [address], [place] [address] 20 Sep, 2013 [facility] [address] [id number] [address] [place] [address], [place] [address] 18 Sep, 2013 [facility] [address] [id number] [address] [place] [address], [place] [address] 18 Sep, 2013 [facility] [address] [id number] [address] [place] [address], [place] [address] 14 Sep, 2013 [facility] [address] [id number] [address] [place] [address], [place] [address] 14 Sep, 2013 [facility] [address] [id number] [address] [place] [address], [place] [address] 14 Sep, 2013 [facility] [address] [id number] [address] [place] [address], [place] [address] 14 Sep, 2013 [facility] [address] [id number] [address] [place] [address], [place] [address] 14 Sep, 2013 [facility] [address] [id number] [address] [place] [address], [place] [address] 14 Sep, 2013 [facility] [address] [id number] [address] [place] [address], [place] [address] 13 Sep, 2013 [facility] [address] [id number] [address] [place] [address], [place] [address] 13 Sep, 2013 [facility] [address] [id number] [address] [place] [address], [place] [address] Sep, [facility] [address] [id number] [address] [place] [address], [place] [address] Sep, [facility] [address] [id number] [address] [place] [address], [place] [address] Sep, [facility] [address] [id number] [address] [place] [address], [place] [address] Sep, [facility] [address] [id number] [address] [place] [address], [place] [address] Aug, [facility] [address] [id number] [address] [place] [address], [place] [address] Aug, [facility] [address] [id number] [address] [place] [address], [place] [address] Aug, [facility] [address] [id number] [address] [place] [address], [place] [address] Aug, [facility] [address] [id number] [address] [place] [address], [place] [address] Aug, [facility] [address] [id number] [address] [place] [address], [place] [address] Jul, [facility] [address] [id number] [address] [place] [address], [place] [address] Jul, [facility] [address] [id number] [address] [place] [address], [place] [address] Jul, [facility] [address] [id number] [address] [place] [address], [place] [address] Jul, [facility] [address] [id number] [address] [place] [address], [place] [address] Jul, [facility] [address] [id number] [address] [place] [address], [place] [address] Jul, [facility] [address] [id number] [address] [place] [address], [place] [address] Jul, [facility] [address] [id number] [address] [place] [address], [place] [address] Jul, [facility] [address] [id number] [address] [place] [address], [place] [address] Jul, [facility] [address] [id number] [address] [place] [address], [place] [address] Jun, [facility] [address] [id number] [address] [place] [id number] Jun, [facility] [address] [id number] [address] [place] [address], [place] [address] Jun, [facility] [address] [id number] [address] [place] [address], [place] [address] Jun, [facility] [address] [id number] [address] [place] [address], [place] [address] Jun, [facility] [address] [id number] [address] [place] [address], [place] [address] Jun, [facility] [address] [id number] [address] [place] [address], [place] [address] Jun, [facility] [address] [id number] [address] [place] [address], [place] [address] Jun, [facility] [address] [id number] [address] [place] [id number] Jun, [facility] [address] [id number] [address] [place] [id number] Jun, [facility] [address] [id number] [address] [place] [address], [place] [address] May, [facility] [address] [id number] [address] [place] [address], [place] [address] May, [facility] [address] [id number] [address] [place] [address], [place] [address] May, [facility] [address] [id number] [address] [place] [address], [place] [address] May, [facility] [address] [id number] [address] [place] [address], [place] [address] 16 May, 2013 [facility] [address] [id number] [address] [place] [address], [place] [address] May, [facility] [address] [id number] [address] [place] [address], [place] [address] May, [facility] [address] [id number] [address] [place] [address], [place] [address] May, [facility] [address] [id number] [address] [place] [address], [place] [address] May, [facility] [address] [id number] [address] [place] [address], [place] [id number] Apr, [facility] [address] [id number] [address] [place] [address], [place] [address] 16 Apr, 2013 [facility] [address] [id number] [address] [place] [address], [place] [address] Apr, [facility] [address] [id number] [address] [place] [address], [place] [address] Apr, [facility] [address] [id number] [address] [place] [address], [place] [address] Mar, [facility] [address] [id number] [address] [place] [address], [place] [address] Mar, [facility] [address] [id number] [address] [place] [address], [place] [address] Mar, [facility] [address] [id number] [address] [place] [address], [place] [address] Mar, [facility] [address] [id number] [address] [place] [address], [place] [address] Mar, [facility] [address] [id number] [address] [place] [address], [place] [address] Mar, [facility] [address] [id number] [address] [place] [address], [place] [address] Mar, [facility] [address] [id number] [address] [place] [address], [place] [address] Feb, [facility] [address] [id number] [address] [place] [address], [place] [address] Feb, [facility] [address] [id number] [address] [place] [address], [place] [address] Feb, [facility] [address] [id number] [address] [place] [address], [place] [address] Feb, [facility] [address] [id number] [address] [place] [address], [place] [address] Feb, [facility] [address] [id number] [address] [place] [address], [place] [address] Feb, [facility] [address] [id number] [address] [place] [address], [place] [address] Feb, [facility] [address] [id number] [address] [place] [address], [place] [address] Feb, [facility] [address] [id number] [address] [place] [address], [place] [address] Feb, [facility] [address] [id number] [address] [place] [address], [place] [address] Feb, [facility] [address] [id number] [address] [place] [address], [place] [address] Feb, [facility] [address] [id number] [address] [place] [address], [place] [address] Jan, [facility] [address] [id number] [address] [place] [address], [place] [address] Jan, [facility] [address] [id number] [address] [place] [address], [place] [address] December, [facility] [address] [id number] [address] [place] [address], [place] [address] December, [facility] [address] [id number] [address] [place] [address], [place] [address] Nov, [facility] [address] [id number] [address] [place] [address], [place] [address] Nov, [facility] [address] [id number] [address] [place] [address], [place] [address] Oct, [facility] [address] [id number] [address] [place] [address], [place] [address] Oct, [facility] [address] [id number] [address] [place] [address], [place] [address] Oct, [facility] [address] [id number] [address] [place] [address], [place] [address] Oct, [facility] [address] [id number] [address] [place] [address], [place] [address] Sep, [facility] [address] [id number] [address] [place] [address], [place] [address] Sep, [facility] [address] [id number] [address] [place] [address], [place] [address] Sep, [facility] [address] [id number] [address] [place] [address], [place] [address] Sep, [facility] [address] [id number] [address] [place] [address], [place] [address] Aug, [facility] [address] [id number] [address] [place] [address], [place] [address] Aug, [facility] [address] [id number] [address] [place] [address], [place] [address] Jul, [facility] [address] [id number] [address] [place] [address], [place] [address] Jul, [facility] [address] [id number] [address] [place] [address], [place] [address] Jul, [facility] [address] [id number] [address] [place] [address], [place] [address] Jul, [facility] [address] [id number] [address] [place] [address], [place] [address] Jul, [facility] [address] [id number] [address] [place] [address], [place] [address] Jul, [facility] [address] [id number] [address] [place] [address], [place] [address] Jun, [facility] [address] [id number] [address] [place] [address], [place] [address] Jun, [facility] [address] [id number] [address] [place] [address], [place] [address] Jun, [facility] [address] [id number] [address] [place] [address], [place] [address] Jun, [facility] [address] [id number] [address] [place] [address], [place] [address] Jun, [facility] [address] [id number] [address] [place] [address], [place] [address] May, [facility] [address] [id number] [address] [place] [address], [place] [address] May, [facility] [address] [id number] [address] [place] [address], [place] [address] May, [facility] [address] [id number] [address] [place] [address], [place] [address] May, [facility] [address] [id number] [address] [place] [address], [place] [address] May, [facility] [address] [id number] [address] [place] [address], [place] [address] May, [facility] [address] [id number] [address] [place] [address], [place] [address] May, [facility] [address] [id number] [address] [place] [address], [place] [address] May, [facility] [address] [id number] [address] [place] [address], [place] [address] Mar, [facility] [address] [id number] [address] [place] [address], [place] [address] Mar, [facility] [address] [id number] [address] [place] [address], [place] [address] Mar, [facility] [address] [id number] [address] [place] [address], [place] [address] Feb, [facility] [address] [id number] [address] [place] [address], [place] [address] Feb, [facility] [address] [id number] [address] [place] [address], [place] [address] Feb, [facility] [address] [id number] [address] [place] [address], [place] [address] Feb, [facility] [address] [id number] [address] [place] [address], [place] [address] Jan, [facility] [address] [id number] [address] [place] [address], [place] [address] Jan, [facility] [address] [id number] [address] [place] [address], [place] [address] Jan, [facility] [address] [id number] [address] [place] [address], [place] [address] December, [facility] [address] [id number] [address] [place] [address], [place] [address] Nov, [facility] [address] [id number] [address] [place] [address], [place] [address] Oct, [facility] [address] [id number] [address] [place] [address], [place] [address] Oct, [facility] [address] [id number] [address] [place] [address], [place] [address] Oct, [facility] [address] [id number] [address] [place] [address], [place] [address] Oct, [facility] [address] [id number] [address] [place] [address], [place] [address] Aug, [facility] [address] [id number] [address] [place] [address], [place] [address] Aug, [facility] [address] [id number] [address] [place] [address], [place] [address] Aug, [facility] [address] [id number] [address] [place] [address], [place] [address] Aug, [facility] [address] [id number] [address] [place] [address], [place] [address] Aug, [facility] [address] [id number] [address] [place] [address], [place] [address] Aug, [facility] [address] [id number] [address] [place] [address], [place] [address] Aug, [facility] [address] [id number] [address] [place] [address], [place] [address] Aug, [facility] [address] [id number] [address] [place] [address], [place] [address] Jul, [facility] [address] [id number] [address] [place] [address], [place] [address] Jun, [facility] [address] [id number] [address] [place] [address], [place] [address] Jun, [facility] [address] [id number] [address] [place] [address], [place] [address] 31 Jul, 2010 [facility] [address] [id number] [address] [place] [address], [place] [address] Jul, [facility] [address] [id number] [address] [place] [address], [place] [address] 22 Jul, 2010 [facility] [address] [id number] [address] [place] [address], [place] [address] 14 Jul, 2010 [facility] [address] [id number] [address] [place] [address] 14 Jul, 2010 [facility] [address] [id number] [address] [place] [address] 24 Jun, 2010 [facility] [address] [id number] [address] [place] [address] May, [facility] [address] [id number] [address] [place] [address] Mar, [facility] [address] [id number] [address] [place] [address] Oct, [facility] [address] [id number] [address] [place] [address] Aug, [facility] [address] [id number] [address] [place] [address] 15 Jul, 2009 [facility] [address] [id number] [address] [place] [address] Jul, [facility] [address] [id number] [address] [place] [address] Jun, [facility] [address] [id number] [address] [place] [address] Jun, [facility] [address] [id number] [address] [place] [address] May, [facility] [address] [id number] [address] [place] [address] May, [facility] [address] [id number] [address] [place] [address] Mar, [facility] [address] [id number] [address] [place] [address] Mar, [facility] [address] [id number] [address] [place] [id number] 10 Oct, 2008 IMMUNIZATIONS No Known Immunizations [...] replacement L1- L5 - Dr Benito pantoja ([place]) Surgical History appendectomy 1983 Surgical History hysterectomy 1993 Surgical History dilatation and curettage Surgical History heart cath- Dr Shaw [address] Solano bowel and intestines seperated [address] solano removed skin tag and cyst 2018 Hospitalization History Hospitalization for surgery only
--- OUTSIDE RECORDS SUMMARY | 2019-11-08 08:48 | XMS REPORT ---
Author Author Elizabeth GUADALUPE Organization [facility] Address [address] [place] [address] Care Team Providers Care Head Of [employer] Name Role Phone DON GUADALUPE Unavailable PROBLEMS Type Condition ICD9-CM Code [id number] Code Onset Dates Condition S tatus SNOMED Code Problem Cannabis abuse F12.10 Active 04533 009 Problem Mixed hyperlipidemia E78.2 Active 997961694 Problem Generalized anxiety disorder F41.1 A ctive 22356711 Problem Major depressive disorder, recurrent episode, moderate F33.1 Active 181650425 Problem Tobacco use Z72.0 Active 78545199 8 Problem PTSD (post-traumatic stress disorder) F43.10 Active 12910257 Problem Opioid use disorder, moderate, in sustained remission F11.21 Active 58706100 Problem Alcohol use disorder, mild, in sustained remission F10.11 Active 89525574 Problem GERD with esophagitis K21.0 Active 864211601 Problem Acute pain of left shoulder M25.512 Ac tive 72430278 Problem Cigarette nicotine dependence without complication F17.210 Active 87190037 Problem Fibromyalgia M79.7 Active 6582281 05 Problem Cocaine use disorder, moderate, in sustained remission F14.21 Active 04831757 Problem Other chronic pain G89.29 Active 8 2010969 Problem Methamphetamine use disorder, severe, 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 Active 99881788 Problem Prediabetes 790.29 Active 6907473 Problem Bipolar disorder F31.9 Active 137 95917 Problem Gastroesophageal reflux disease, esophagitis pre sence not specified K21.9 Active 843587677 Problem Menopausal disorder N95.9 Active 869387099 Problem Arthritis M19.90 Active 5386095 ALLERGIES No Information ENCOUNTERS Encounter Location Date Diagnosis [facility] [address] [id number] [address] [place] [address] Mar, [facility] [address] [id number] [address] [place] [address] 16 Feb, 2019 [facility] [id number] [place] [address] Feb, [facility] [address] [address] Jan, [facility] [address] [address] Jan, Fibromyalgia M79.7 ; Insect bite (nonvenomous) of lower back and pelvis, sequela S30.860S ; Bitten or stung by nonvenomous insect and other nonvenomous arthropods, sequela W57.XXXS ; Arthritis M19.90 and Menopausal disorder N95.9 [place] [address] [address] Jan, [place] [address] [address] Jan, Mixed hyperlipidemia E78.2 [place] [address] [address] December, Screening for breast cancer Z12.31 and Breast lump N63.0 [place] [address] [place] [id number] [address] [place] [address] December, Chest pain, unspecified type R07.9 [place] [address] [place] [id number] [address] [place] [address] December, Chest pain, unspecified type R07.9 ; Gastroesophageal reflux disease, esophagitis presence not specified K21.9 and Left breast lump N63.20 [place] [address] [place] [id number] [address] [place] [address] December, [facility] [address] [place] [id number] [address] [place] [address] December, Suprapubic abdominal pain R1 0.2 and Dysuria R30.0 [place] [address] [place] [address] December, [facility] [address] [place] [id number] [address] [place] [address] December, Cannabis abuse F12.10 ; Gene ralized anxiety disorder F41.1 ; Methamphetamine use disorder, severe, 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 ; Alcohol use disorder, mild, in sustained remission F10.11 ; PTSD (post-traumatic stress disorder) F43.10 ; Cocaine use disorder, moderate, in sustained remission F14.21 and Bipolar disorder F31.9 [place] [address] [place] [id number] [address] [place] [address] Nov, Major depressive disorder, r ecurrent episode, moderate F33.1 ; Cannabis abuse F12.10 ; Generalized anxiety disorder F41.1 ; Methamphetamine use disorder, severe, 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 ; Alcohol use disorder, mild, in sustained remission F10.11 ; PTSD (post-traumatic stress disorder) F43.10 and Cocaine use disorder, moderate, in sustained remission F14.21 [facility] [address] [place] [id number] [address] [place] [address] Oct, Major depressive disorder, r ecurrent episode, moderate F33.1 ; Cannabis abuse F12.10 ; Generalized anxiety disorder F41.1 ; Methamphetamine use disorder, severe, 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 ; Alcohol use disorder, mild, in sustained remission F10.11 ; PTSD (post-traumatic stress disorder) F43.10 and Cocaine use disorder, moderate, in sustained remission F14.21 [facility] [address] [place] [id number] [address] [place] [address] Sep, Major depressive disorder, r ecurrent episode, moderate F33.1 [facility] [address] [facility] [id number] [address] [place] [id number] Aug, [facility] [address] [place] [id number] [address] [place] [address] Jul, Dysuria R30.0 [facility] [address] [place] [id number] [address] [place] [address] Jul, Major depressive disorder, r ecurrent episode, moderate F33.1 [facility] [address] [id number] [address] [place] [address] Jun, Major depressive disorder, r ecurrent episode, moderate F33.1 [facility] [address] [id number] [address] [place] [address] Jun, Major depressive disorder, r ecurrent episode, moderate F33.1 [facility] [address] [id number] [address] [place] [address] Jun, Acute pain of left shoulder M25.512 and Cigarette nicotine dependence without complication F17.210 [facility] [address] [id number] [address] [place] [address] May, [facility] [address] [id number] [address] [place] [address] May, Cocaine use disorder, modera te, in sustained remission F14.21 [facility] [address] [id number] [address] [place] [address] May, [facility] [address] [place] [address] May, 18 Dental examination Z01.20 [facility] [address] [facility] [id number] [address] [place] [id number] May, Dental examination Z01.20 an d Caries K02.9 [facility] [address] [id number] [address] [place] [address] May, Common wart B07.8 [facility] [address] [id number] [address] [place] [address] May, [facility] [address] [id number] [address] [place] [address] Apr, Cocaine use disorder, modera te, in sustained remission F14.21 [facility] [address] [id number] [address] [place] [address] 14 Apr, 2018 [facility] [address] [facility] [id number] [address] [place] [id number] 13 Apr, 2018 Dental examination Z01.20 [facility] [address] [facility] [id number] [address] [place] [address] [id number] 10 Mar, 2018 Encounter for dental exam an d cleaning w/o abnormal findings Z01.20 [facility] [address] [place] [id number] [address] [place] [phone] 07 Mar, 2018 [place] [address] [place] [id number] [address] [place] [address] Feb, Cocaine use disorder, modera te, in [...] Major depressive disorder, recurrent episode, moderate F33.1 [place] [address] [place] [id number] [address] [place] [address] Jan, Cocaine use disorder, modera te, in sustained remission F14.21 [place] [address] [place] [id number] [address] [place] [address] Jan, Cocaine use disorder, modera te, in [...] Major depressive disorder, recurrent episode, moderate F33.1 [place] [address] [place] [id number] [address] [place] [address] Jan, Dysuria R30.0 and GERD with esophagitis K21.0 [place] [address] [place] [id number] [address] [place] [phone] December, Major depressive disorder, r ecurrent episode, moderate F33.1 [facility] [address] [id number] [address] [place] [phone] December, [facility] [address] [id number] [address] [place] [phone] December, Major depressive disorder, r ecurrent episode, [...] Tobacco use Z72.0 [facility] [address] [id number] [address] [place] [address] Nov, [facility] [address] [id number] [address] [address] Nov, [facility] [address] [id number] [address] [place] [address] Nov, Wellness examination Z00.00 ; Encounter for immunization Z23 ; Screening for osteoporosis Z13.820 ; Screening for breast cancer Z12.31 and Left breast lump N63.20 [facility] [address] [facility] [id number] [address] [place] [id number] Oct, Dental examination Z01.20 [facility] [address] [id number] [address] [place] [phone] Oct, [facility] [address] [id number] [address] [place] [phone] Oct, [facility] [address] [id number] [address] [place] [address] Sep, [facility] [address] [id number] [address] [place] [phone] Sep, [facility] [address] [id number] [address] [place] [phone] 14 Sep, 2017 Left otitis media with effus ion H65.92 ; Acute suppurative otitis media of right ear without spontaneous rupture of tympanic membrane, recurrence not specified H66.001 ; Dizziness R42 and Fatigue 780.79 [place] [address] [place] [id number] [address] [place] [phone] Aug, Major depressive disorder, r ecurrent episode, [...] F10.11 and Tobacco use Z72.0 [facility] [address] [place] [id number] [address] [place] [address] Aug, Ingrown right big toenail L6 0.0 [facility] [address] [id number] [address] [place] [address] Aug, [place] [address] [place] [id number] [address] [place] [address] Aug, PTSD (post-traumatic stress disorder) F43.10 [place] [address] [place] [id number] [address] [place] [phone] Aug, Major depressive disorder, r ecurrent episode, moderate F33.1 ; Generalized anxiety disorder F41.1 and Cannabis abuse F12.10 [facility] [address] [id number] [address] [place] [address] Jul, [place] [address] [place] [id number] [address] [place] [address] Jul, [place] [address] [place] [id number] [address] [place] [phone] Jul, [place] [id number] [place] [address] Jul, Major depressive disorder, r ecurrent episode, moderate F33.1 ; Generalized anxiety disorder F41.1 and Cannabis abuse F12.10 [place] [address] [place] [id number] [address] [place] [phone] Jul, [place] [address] [address] Jul, [place] [address] [address] Jul, Hyperlipidemia 272.[address] [address] Jul, PTSD (post-traumatic stress disorder) F43.10 [place] [address] [address] Jul, Tobacco use Z72.0 ; Alcohol use disorder, mild, in sustained remission F10.11 ; Opioid use disorder, moderate, in sustained remission F11.21 ; Methamphetamine use disorder, severe, 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 ; Cocaine use disorder, moderate, in sustained remission F14.21 ; PTSD (post-traumatic stress disorder) F43.10 ; Major depressive disorder, recurrent episode, moderate F33.1 ; Generalized anxiety disorder F41.1 and Cannabis abuse F12.10 [place] [address] [address] Jul, [place] [address] [address] Jul, Dysuria R30.0 and Mixed hype rlipidemia E78.[address] [address] Jun, Major depressive disorder, r ecurrent episode, moderate F33.1 ; Generalized anxiety disorder F41.1 and Cannabis abuse F12.10 [place] [address] [address] Jun, [facility] [address] [id number] [address] [place] [address] Jun, Generalized anxiety disorder F41.1 ; Major [...] Tobacco use Z72.0 [facility] [address] [id number] [address] [place] [address] Jun, Major depressive disorder, r ecurrent episode, moderate F33.1 ; Generalized anxiety disorder F41.1 and Cannabis abuse F12.10 [facility] [address] [id number] [address] [place] [phone] Jun, [facility] [address] [id number] [address] [place] [phone] Jun, [facility] [address] [id number] [address] [place] [phone] Jun, Major depressive disorder, r ecurrent episode, moderate F33.1 ; Generalized anxiety disorder F41.1 and Cannabis abuse F12.10 [facility] [address] [id number] [address] [place] [address] [id number] Mar, Dental examination Z01.20 [facility] [address] [id number] [address] [place] [id number] Feb, Dental examination Z01.20 [facility] [address] [id number] [address] [place] [phone] Mar, [facility] [address] [id number] [address] [place] [phone] Mar, [facility] [address] [id number] [address] [place] [address] Feb, Hyperlipidemia 272.4 and Pre diabetes 790.29 [facility] [address] [id number] [address] [place] [address] Feb, Fatigue 780.79 and Hyperlipi demia 272.4 [facility] [address] [id number] [address] [place] [address] Feb, Lumbago 724.2 ; Hyperlipidem ia 272.4 ; Insomnia 780.52 and Fatigue 780.79 [facility] [address] [id number] [address] [place] [address] Nov, [facility] [address] [id number] [address] [place] [phone] Nov, [facility] [address] [id number] [address] [place] [address] Mar, [facility] [address] [id number] [address] [place] [phone] Mar, [facility] [address] [id number] [address] [place] [phone] Jan, [facility] [address] [id number] [address] [place] [phone] Jan, [facility] [address] [id number] [address] [place] [phone] December, [facility] [address] [id number] [address] [place] [phone] December, [facility] [address] [id number] [address] [place] [phone] Nov, [facility] [address] [id number] [address] [place] [phone] Nov, [facility] [address] [id number] [address] [place] [address] Nov, [facility] [address] [id number] [address] [place] [phone] Nov, [facility] [address] [id number] [facility] [place] [address] 28 Nov, 2013 [facility] [address] [id number] [address] [place] [address], [place] [address] 28 Nov, 2013 [facility] [address] [id number] [facility] [place] [address] 31 Oct, 2013 [facility] [address] [id number] [address] [place] [address], [place] [address] 31 Oct, 2013 [facility] [address] [id number] [address] [place] [address], [place] [address] 20 Oct, 2013 [facility] [address] [id number] [address] [place] [address], [place] [address] 20 Oct, 2013 [facility] [address] [id number] [address] [place] [address], [place] [address] Oct, [facility] [address] [id number] [address] [place] [address], [place] [address] Oct, [facility] [address] [id number] [address] [place] [address], [place] [address] Oct, [facility] [address] [id number] [address] [place] [address], [place] [address] Oct, [facility] [address] [id number] [address] [place] [address], [place] [address] Oct, [facility] [address] [id number] [address] [place] [address], [place] [address] 04 Oct, 2013 [facility] [address] [id number] [address] [place] [address], [place] [address] 04 Oct, 2013 [facility] [address] [id number] [address] [place] [address], [place] [address] Oct, [facility] [address] [id number] [address] [place] [address], [place] [address] Oct, [facility] [address] [id number] [address] [place] [address], [place] [address] 24 Sep, 2013 [facility] [address] [id number] [address] [place] [address], [place] [address] 24 Sep, 2013 [facility] [address] [id number] [address] [place] [address], [place] [address] 20 Sep, 2013 [facility] [address] [id number] [address] [place] [address], [place] [address] 20 Sep, 2013 [facility] [address] [id number] [address] [place] [address], [place] [address] 20 Sep, 2013 [facility] [address] [id number] [address] [place] [address], [place] [address] 20 Sep, 2013 [facility] [address] [id number] [address] [place] [address], [place] [address] 18 Sep, 2013 [facility] [address] [id number] [address] [place] [address], [place] [address] 18 Sep, 2013 [facility] [address] [id number] [address] [place] [address], [place] [address] 14 Sep, 2013 [facility] [address] [id number] [address] [place] [address], [place] [address] 14 Sep, 2013 [facility] [address] [id number] [address] [place] [address], [place] [address] 14 Sep, 2013 [facility] [address] [id number] [address] [place] [address], [place] [address] 14 Sep, 2013 [facility] [address] [id number] [address] [place] [address], [place] [address] 14 Sep, 2013 [facility] [address] [id number] [address] [place] [address], [place] [address] 14 Sep, 2013 [facility] [address] [id number] [address] [place] [address], [place] [address] 13 Sep, 2013 [facility] [address] [id number] [address] [place] [address], [place] [address] 13 Sep, 2013 [facility] [address] [id number] [address] [place] [address], [place] [address] Sep, [facility] [address] [id number] [address] [place] [address], [place] [address] Sep, [facility] [address] [id number] [address] [place] [address], [place] [address] Sep, [facility] [address] [id number] [address] [place] [address], [place] [address] Sep, [facility] [address] [id number] [address] [place] [address], [place] [address] Aug, [facility] [address] [id number] [address] [place] [address], [place] [address] Aug, [facility] [address] [id number] [address] [place] [address], [place] [address] Aug, [facility] [address] [id number] [address] [place] [address], [place] [address] Aug, [facility] [address] [id number] [address] [place] [address], [place] [address] Aug, [facility] [address] [id number] [address] [place] [address], [place] [address] Jul, [facility] [address] [id number] [address] [place] [address], [place] [address] Jul, [facility] [address] [id number] [address] [place] [address], [place] [address] Jul, [facility] [address] [id number] [address] [place] [address], [place] [address] Jul, [facility] [address] [id number] [address] [place] [address], [place] [address] Jul, [facility] [address] [id number] [address] [place] [address], [place] [address] Jul, [facility] [address] [id number] [address] [place] [address], [place] [address] Jul, [facility] [address] [id number] [address] [place] [address], [place] [address] Jul, [facility] [address] [id number] [address] [place] [address], [place] [address] Jul, [facility] [address] [id number] [address] [place] [address], [place] [address] Jun, [facility] [address] [id number] [address] [place] [id number] Jun, [facility] [address] [id number] [address] [place] [address], [place] [address] Jun, [facility] [address] [id number] [address] [place] [address], [place] [address] Jun, [facility] [address] [id number] [address] [place] [address], [place] [address] Jun, [facility] [address] [id number] [address] [place] [address], [place] [address] Jun, [facility] [address] [id number] [address] [place] [address], [place] [address] Jun, [facility] [address] [id number] [address] [place] [address], [place] [address] Jun, [facility] [address] [id number] [address] [place] [id number] Jun, [facility] [address] [id number] [address] [place] [id number] Jun, [facility] [address] [id number] [address] [place] [address], [place] [address] May, [facility] [address] [id number] [address] [place] [address], [place] [address] May, [facility] [address] [id number] [address] [place] [address], [place] [address] May, [facility] [address] [id number] [address] [place] [address], [place] [address] May, [facility] [address] [id number] [address] [place] [address], [place] [address] 16 May, 2013 [facility] [address] [id number] [address] [place] [address], [place] [address] May, [facility] [address] [id number] [address] [place] [address], [place] [address] May, [facility] [address] [id number] [address] [place] [address], [place] [address] May, [facility] [address] [id number] [address] [place] [address], [place] [address] May, [facility] [address] [id number] [address] [place] [address], [place] [address] Apr, [facility] [address] [id number] [address] [place] [address], [place] [address] 16 Apr, 2013 [facility] [address] [id number] [address] [place] [address], [place] [address] Apr, [facility] [address] [id number] [address] [place] [address], [place] [address] Apr, [facility] [address] [id number] [address] [place] [address], [place] [address] Mar, [facility] [address] [id number] [address] [place] [address], [place] [address] Mar, [facility] [address] [id number] [address] [place] [address], [place] [address] Mar, [facility] [address] [id number] [address] [place] [address], [place] [address] Mar, [facility] [address] [id number] [address] [place] [address], [place] [address] Mar, [facility] [address] [id number] [address] [place] [address], [place] [address] Mar, [facility] [address] [id number] [address] [place] [address], [place] [address] Mar, [facility] [address] [id number] [address] [place] [address], [place] [address] Feb, [facility] [address] [id number] [address] [place] [address], [place] [address] Feb, [facility] [address] [id number] [address] [place] [address], [place] [address] Feb, [facility] [address] [id number] [address] [place] [address], [place] [address] Feb, [facility] [address] [id number] [address] [place] [address], [place] [address] Feb, [facility] [address] [id number] [address] [place] [address], [place] [address] Feb, [facility] [address] [id number] [address] [place] [address], [place] [address] Feb, [facility] [address] [id number] [address] [place] [address], [place] [address] Feb, [facility] [address] [id number] [address] [place] [address], [place] [address] Feb, [facility] [address] [id number] [address] [place] [address], [place] [address] Feb, [facility] [address] [id number] [address] [place] [address], [place] [address] Feb, [facility] [address] [id number] [address] [place] [address], [place] [address] Jan, [facility] [address] [id number] [address] [place] [address], [place] [address] Jan, [facility] [address] [id number] [address] [place] [address], [place] [address] December, [facility] [address] [id number] [address] [place] [address], [place] [address] December, [facility] [address] [id number] [address] [place] [address], [place] [address] Nov, [facility] [address] [id number] [address] [place] [address], [place] [address] Nov, [facility] [address] [id number] [address] [place] [address], [place] [address] Oct, [facility] [address] [id number] [address] [place] [address], [place] [address] Oct, [facility] [address] [id number] [address] [place] [address], [place] [address] Oct, [facility] [address] [id number] [address] [place] [address], [place] [address] Oct, [facility] [address] [id number] [address] [place] [address], [place] [address] Sep, [facility] [address] [id number] [address] [place] [address], [place] [address] Sep, [facility] [address] [id number] [address] [place] [address], [place] [address] Sep, [facility] [address] [id number] [address] [place] [address], [place] [address] Sep, [facility] [address] [id number] [address] [place] [address], [place] [address] Aug, [facility] [address] [id number] [address] [place] [address], [place] [address] Aug, [facility] [address] [id number] [address] [place] [address], [place] [address] Jul, [facility] [address] [id number] [address] [place] [address], [place] [address] Jul, [facility] [address] [id number] [address] [place] [address], [place] [address] Jul, [facility] [address] [id number] [address] [place] [address], [place] [address] Jul, [facility] [address] [id number] [address] [place] [address], [place] [address] Jul, [facility] [address] [id number] [address] [place] [address], [place] [address] Jul, [facility] [address] [id number] [address] [place] [address], [place] [address] Jun, [facility] [address] [id number] [address] [place] [address], [place] [address] Jun, [facility] [address] [id number] [address] [place] [address], [place] [address] Jun, [facility] [address] [id number] [address] [place] [address], [place] [address] Jun, [facility] [address] [id number] [address] [place] [address], [place] [address] Jun, [facility] [address] [id number] [address] [place] [address], [place] [address] May, [facility] [address] [id number] [address] [place] [address], [place] [address] May, [facility] [address] [id number] [address] [place] [address], [place] [address] May, [facility] [address] [id number] [address] [place] [address], [place] [address] May, [facility] [address] [id number] [address] [place] [address], [place] [address] May, [facility] [address] [id number] [address] [place] [address], [place] [address] May, [facility] [address] [id number] [address] [place] [address], [place] [address] May, [facility] [address] [id number] [address] [place] [address], [place] [address] May, [facility] [address] [id number] [address] [place] [address], [place] [address] Mar, [facility] [address] [id number] [address] [place] [address], [place] [address] Mar, [facility] [address] [id number] [address] [place] [address], [place] [address] Mar, [facility] [address] [id number] [address] [place] [address], [place] [address] Feb, [facility] [address] [id number] [address] [place] [address], [place] [address] Feb, [facility] [address] [id number] [address] [place] [address], [place] [address] Feb, [facility] [address] [id number] [address] [place] [address], [place] [address] Feb, [facility] [address] [id number] [address] [place] [address], [place] [address] Jan, [facility] [address] [id number] [address] [place] [address], [place] [address] Jan, [facility] [address] [id number] [address] [place] [address], [place] [address] Jan, [facility] [address] [id number] [address] [place] [address], [place] [address] December, [facility] [address] [id number] [address] [place] [address], [place] [address] Nov, [facility] [address] [id number] [address] [place] [address], [place] [address] Oct, [facility] [address] [id number] [address] [place] [address], [place] [address] Oct, [facility] [address] [id number] [address] [place] [address], [place] [address] Oct, [facility] [address] [id number] [address] [place] [address], [place] [address] Oct, [facility] [address] [id number] [address] [place] [address], [place] [address] Aug, [facility] [address] [id number] [address] [place] [address], [place] [address] Aug, [facility] [address] [id number] [address] [place] [address], [place] [address] Aug, [facility] [address] [id number] [address] [place] [address], [place] [address] Aug, [facility] [address] [id number] [address] [place] [address], [place] [address] Aug, [facility] [address] [id number] [address] [place] [address], [place] [address] Aug, [facility] [address] [id number] [address] [place] [address], [place] [address] Aug, [facility] [address] [id number] [address] [place] [address], [place] [address] Aug, [facility] [address] [id number] [address] [place] [address], [place] [address] Jul, [facility] [address] [id number] [address] [place] [address], [place] [address] Jun, [facility] [address] [id number] [address] [place] [address], [place] [address] Jun, [facility] [address] [id number] [address] [place] [address], [place] [address] 31 Jul, 2010 [facility] [address] [id number] [address] [place] [address], [place] [address] Jul, [facility] [address] [id number] [address] [place] [address], [place] [address] 22 Jul, 2010 [facility] [address] [id number] [address] [place] [address], [place] [address] 14 Jul, 2010 [facility] [address] [id number] [address] [place] [id number] 14 Jul, 2010 [facility] [address] [id number] [address] [place] [id number] 24 Jun, 2010 [facility] [address] [id number] [address] [place] [address] May, [facility] [address] [id number] [address] [place] [address] Mar, [facility] [address] [id number] [address] [place] [address] Oct, [facility] [address] [id number] [address] [place] [address] Aug, [facility] [address] [id number] [address] [place] [id number] 15 Jul, 2009 [facility] [address] [id number] [address] [place] [address] Jul, [facility] [address] [id number] [address] [place] [address] Jun, [facility] [address] [id number] [address] [place] [address] Jun, [facility] [address] [id number] [address] [place] [address] May, [facility] [address] [id number] [address] [place] [address] May, [facility] [address] [id number] [address] [place] [address] Mar, [facility] [address] [id number] [address] [place] [phone] Mar, [facility] [address] [id number] [address] [place] [phone] 10 Oct, 2008 IMMUNIZATIONS No Known Immunizations [...] replacement L1- L5 - Dr Benito pantoja ([place]) Surgical History appendectomy 1983 Surgical History hysterectomy 1993 Surgical History dilatation and curettage Surgical History heart cath- Dr Shaw [address] Solano bowel and intestines seperated [address] solano removed skin tag and cyst 2018 Hospitalization History Hospitalization for surgery only
--- OUTSIDE RECORDS SUMMARY | 2019-11-08 08:59 | XMS REPORT | Continuity of Care Document ---
Author Organization Unknown Address Unknown Phone Unavailable Allergies Active Description Code Type Severity Reaction Onset Reported/Identified Relationship to Patient Clinical Status Yes Duragesic Drug Allergy 08/28/2008 Yes Duragesic Drug Allergy N/A N/A 08/28/2008 Yes fentanyl [id number] Drug Allergy Unknown N/A 01/16/2017 Yes Kbmzljt-Mlk-Cjk Reductase Inhibitor [id number] Drug Allergy Unknown LEG CRAMPS 01/16/2017 Yes fentanyl [id number] Drug Allergy Severe SEVERE N/V 01/03/2019 Yes Gcvdxjz-Dhy-Biq Reductase Inhibitor [id number] Drug Allergy Mild LEG CRAMPS 01/03/2019 Medications There is no data. Problems Date Dx Coded Attending Type Code Diagnosis Diagnosed By RK FU MD, Ot M25.812 OTHER SPECIFIED JOINT DISORDERS, LEFT SH 07/06/1342 RK FU MD, Ot S13.4XX D SPRAIN OF LIGAMENTS OF CERVICAL SPINE, S 07/06/1342 RK FU MD, Ot X50.9XX D OTHER AND UNSPECIFIED OVREXRTN OR STRNOU 03/19/2008 DON GUADALUPE APRN S 729.1 Inflammatory Myopathy (myositis) 03/19/2008 DON GUADALUPE APRN S 789.00 Abdominal Pain 03/19/2008 729.1 Infl ammatory Myopathy (myositis) 03/19/2008 789.00 Abd ominal Pain 03/19/2008 DON GUADALUPE APRN S 729.1 Inflammatory Myopathy (myositis) 03/19/2008 DON GUADALUPE APRN S 789.00 Abdominal Pain 03/19/2008 DON GUADALUPE APRN S 729.1 Inflammatory Myopathy (myositis) 03/19/2008 DON GUADALUPE APRN S 789.00 Abdominal Pain 03/19/2008 729.1 Infl ammatory Myopathy (myositis) 03/19/2008 789.00 Abd ominal Pain 03/19/2008 729.1 Infl ammatory Myopathy (myositis) 03/19/2008 789.00 Abd ominal Pain 03/19/2008 MELISSA DAHL MD 729.1 Inflammatory Myopathy (myositis) 03/19/2008 MELISSA DAHL MD 789.0 0 Abdominal Pain 03/19/2008 DOMINIQUE GUADALUPE APRNNDA S 729.1 Inflammatory Myopathy (myositis) 03/19/2008 ANAYELI BARON, DON S 789.00 Abdominal Pain 03/19/2008 KACIE DRIVER DDS 729.1 Inflammatory Myopathy (myositis) 03/19/2008 KACIE DRIVER DDS 789.00 Abdominal Pain 03/19/2008 ANAYELI BARON DON S 729.1 Inflammatory Myopathy (myositis) 03/19/2008 ANAYELI BARON DON S 789.00 Abdominal Pain 03/19/2008 DOMINIQUE GUADALUPE APRNNDA S 729.1 Inflammatory Myopathy (myositis) 03/19/2008 ANAYELI BARON, DON S 789.00 Abdominal Pain 03/19/2008 ANAYELI BARON, DON S 729.1 Inflammatory Myopathy (myositis) 03/19/2008 ANAYELI BARON, DON S 789.00 Abdominal Pain 03/19/2008 ANAYELI BARON, DON S 729.1 Inflammatory Myopathy (myositis) 03/19/2008 ANAYELI BARON, DON S 789.00 Abdominal Pain 03/19/2008 EDD NEGRONS, STALIN J 72 9.1 Inflammatory Myopathy (myositis) 03/19/2008 WHITE DDS, STALIN J 789.00 Abdominal Pain 03/19/2008 ANAYELI BARON, DON S 729.1 Inflammatory Myopathy (myositis) 03/19/2008 ANAYELI BARON, DON S 789.00 Abdominal Pain 08/28/2008 DOMINIQUE GUADALUPE APRNNDA S 296.90 Episodic Mood Disorders 08/28/2008 DOMINIQUE GUADALUPE APRNNDA S 300.00 Anxiety 08/28/2008 ANAYELI ROOFING SUPERVISOR, DON S 627.9 MENOPAUSAL DISORDER 08/28/2008 296.90 Epi sodic Mood Disorders 08/28/2008 300.00 Anxiety 08/28/2008 627.9 ЮЛИЯ PAUSAL DISORDER 08/28/2008 ANAYELI BARON, DON S 296.90 Episodic Mood Disorders 08/28/2008 ANAYELI BARON, DON S 300.00 Anxiety 08/28/2008 ANAYELI BARON, DON S 627.9 MENOPAUSAL DISORDER 08/28/2008 ANAYELI BARON, DON S 296.90 Episodic Mood Disorders 08/28/2008 ANAYELI BARON, DON S 300.00 Anxiety 08/28/2008 ANAYELI BARON, DON S 627.9 MENOPAUSAL DISORDER 08/28/2008 296.90 Epi sodic Mood Disorders 08/28/2008 300.00 Anxiety 08/28/2008 627.9 ЮЛИЯ PAUSAL DISORDER 08/28/2008 296.90 Epi sodic Mood Disorders 08/28/2008 300.00 Anxiety 08/28/2008 627.9 ЮЛИЯ PAUSAL DISORDER 08/28/2008 MELISSA DAHL MD 296.9 0 Episodic Mood Disorders 08/28/2008 MELISSA DAHL MD 300.0 0 Anxiety 08/28/2008 MELISSA DAHL MD 627.9 MENOPAUSAL DISORDER 08/28/2008 ANAYELI BARON, DON S 296.90 Episodic Mood Disorders 08/28/2008 ANAYELI BARON, DON S 300.00 Anxiety 08/28/2008 ANAYELI BARON, DON S 627.9 MENOPAUSAL DISORDER 08/28/2008 NEISHA NEGRONS, KACIE Fontanez 296.90 Episodic Mood Disorders 08/28/2008 NEISHA NEGRONS, KACIE M 300.00 Anxiety 08/28/2008 NEISHA NEGRONS, KACIE M 627.9 MENOPAUSAL DISORDER 08/28/2008 ANAYELI BARON DON S 296.90 Episodic Mood Disorders 08/28/2008 ANAYELI BARON, DON S 300.00 Anxiety 08/28/2008 ANAYELI BARON, DON S 627.9 MENOPAUSAL DISORDER 08/28/2008 ANAYELI BARON, DON S 296.90 Episodic Mood Disorders 08/28/2008 ANAYELI ROOFING SUPERVISOR, DON S 300.00 Anxiety 08/28/2008 ANAYELI ROOFING SUPERVISOR, DON S 627.9 MENOPAUSAL DISORDER 08/28/2008 ANAYELI ROOFING SUPERVISOR, DON S 296.90 Episodic Mood Disorders 08/28/2008 ANAYELI ROOFING SUPERVISOR, DON S 300.00 Anxiety 08/28/2008 ANAYELI ROOFING SUPERVISOR, DON S 627.9 MENOPAUSAL DISORDER 08/28/2008 ANAYELI ROOFING SUPERVISOR, DON S 296.90 Episodic Mood Disorders 08/28/2008 ANAYELI ROOFING SUPERVISOR, DON S 300.00 Anxiety 08/28/2008 ANAYELI ROOFING SUPERVISOR, DON S 627.9 MENOPAUSAL DISORDER 08/28/2008 WHITE DDS, STALIN J 296.90 Episodic Mood Disorders 08/28/2008 WHITE DDS, STALIN J 300.00 Anxiety 08/28/2008 WHITE DDS, STALIN J 62 7.9 MENOPAUSAL DISORDER 08/28/2008 ANAYELI ROOFING SUPERVISOR, DON S 296.90 Episodic Mood Disorders 08/28/2008 ANAYELI PATN, DON S 300.00 Anxiety 08/28/2008 ANAYELI ROOFING SUPERVISOR, DON S 627.9 MENOPAUSAL DISORDER 09/30/2008 ANAYELI PATN, DON S 346.90 Migraine Headache 09/30/2008 346.90 Leighton shantelle Headache 09/30/2008 ANAYELI PATN, DON S 346.90 Migraine Headache 09/30/2008 ANAYELI ROOFING SUPERVISOR, DON S 346.90 Migraine Headache 09/30/2008 346.90 Leighton shantelle Headache 09/30/2008 346.90 Leighton shantelle Headache 09/30/2008 MELISSA DAHL MD 346.9 0 Migraine Headache 09/30/2008 ANAYELI PATN, DON S 346.90 Migraine Headache 09/30/2008 KACIE DRIVER DDS 346.90 Migraine Headache 09/30/2008 ANAYELI PATN, DON S 346.90 Migraine Headache 09/30/2008 ANAYELI ROOFING SUPERVISOR, DON S 346.90 Migraine Headache 09/30/2008 ANAYELI ROOFING SUPERVISOR, DON S 346.90 Migraine Headache 09/30/2008 ANAYELI PATN, DON S 346.90 Migraine Headache 09/30/2008 WHITE DDS, STALIN J 346.90 Migraine Headache 09/30/2008 ANAYELI BARON, DON S 346.90 Migraine Headache 10/14/2008 ANAYELI ROOFING SUPERVISOR, DON S 461.9 Acute Sinusitis Unspecified 10/14/2008 461.9 Acut e Sinusitis Unspecified 10/14/2008 ANAYELI ROOFING SUPERVISOR, DON S 461.9 Acute Sinusitis Unspecified 10/14/2008 ANAYELI ROOFING SUPERVISOR, DON S 461.9 Acute Sinusitis Unspecified 10/14/2008 461.9 Acut e Sinusitis Unspecified 10/14/2008 461.9 Acut e Sinusitis Unspecified 10/14/2008 NABILA MARSHALL, MELISSA 461.9 Acute Sinusitis Unspecified 10/14/2008 ANAYELI ROOFING SUPERVISOR, DON S 461.9 Acute Sinusitis Unspecified 10/14/2008 NEISHA NEGRONS, KACIE Fontanez 461.9 Acute Sinusitis Unspecified 10/14/2008 ANAYELI ROOFING SUPERVISOR, DON S 461.9 Acute Sinusitis Unspecified 10/14/2008 ANAYELI BARON, DON S 461.9 Acute Sinusitis Unspecified 10/14/2008 ANAYELI ROOFING SUPERVISOR, DON S 461.9 Acute Sinusitis Unspecified 10/14/2008 ANAYELI ROOFING SUPERVISOR, DON S 461.9 Acute Sinusitis Unspecified 10/14/2008 EDD SANCHEZ, STALIN Gordon 46 1.9 Acute Sinusitis Unspecified 10/14/2008 ANAYELI BARON, DON S 461.9 Acute Sinusitis Unspecified 01/28/2009 DOMINIQUE GUADALUPE APRNNDA S 309.81 Chronic Post-traumatic Stress Disorder 01/28/2009 DOMINIQUE GUADALUPE APRNNDA S 564.01 Constipation Slow Transit 01/28/2009 DOMINIQUE GUADALUPE APRNNDA S 780.52 insomnia 01/28/2009 DOMINIQUE GUADALUPE APRNNDA S 780.79 Feeling Tired Or Poorly 01/28/2009 309.81 Chr onic Post- traumatic Stress Disorder 01/28/2009 564.01 Con stipation Slow Transit 01/28/2009 780.52 ins omnia 01/28/2009 780.79 Fee ling Tired Or Poorly 01/28/2009 ANAYELI BARON DON S 309.81 Chronic Post-traumatic Stress Disorder 01/28/2009 DOMINIQUE GUADALUPE APRNNDA S 564.01 Constipation Slow Transit 01/28/2009 ANAYELI ROOFING SUPERVISOR, DON S 780.52 insomnia 01/28/2009 ANAYELI ROOFING SUPERVISOR, DON S 780.79 Feeling Tired Or Poorly 01/28/2009 ANAYELI BARON DON S 309.81 Chronic Post-traumatic Stress Disorder 01/28/2009 ANAYELI BARON, DON S 564.01 Constipation Slow Transit 01/28/2009 ANAYELI BARON, DON S 780.52 insomnia 01/28/2009 ANAYELI BARON, DON S 780.79 Feeling Tired Or Poorly 01/28/2009 309.81 Chr onic Post- traumatic Stress Disorder 01/28/2009 564.01 Con stipation Slow Transit 01/28/2009 780.52 ins omnia 01/28/2009 780.79 Fee ling Tired Or Poorly 01/28/2009 309.81 Chr onic Post- traumatic Stress Disorder 01/28/2009 564.01 Con stipation Slow Transit 01/28/2009 780.52 ins omnia 01/28/2009 780.79 Fee ling Tired Or Poorly 01/28/2009 MELISSA DAHL MD 309.8 1 Chronic Post-traumatic Stress Disorder 01/28/2009 MELISSA DAHL MD 564.0 1 Constipation Slow Transit 01/28/2009 MELISSA DAHL MD 780.5 2 insomnia 01/28/2009 MELISSA DAHL MD 780.7 9 Feeling Tired Or Poorly 01/28/2009 DOMINIQUE GUADALUPE APRNNDA S 309.81 Chronic Post-traumatic Stress Disorder 01/28/2009 ANAYELI BARON DON S 564.01 Constipation Slow Transit 01/28/2009 DOMINIQUE GUADALUPE APRNNDA S 780.52 insomnia 01/28/2009 ANAYELI BARON DON S 780.79 Feeling Tired Or Poorly 01/28/2009 KACIE DRIVER DDS 309.81 Chronic Post-traumatic Stress Disorder 01/28/2009 KACIE DRIVER DDS 564.01 Constipation Slow Transit 01/28/2009 KACIE DRIVER DDS 780.52 insomnia 01/28/2009 NEISHA DDS, KACIE M 780.79 Feeling Tired Or Poorly 01/28/2009 ANAYELI BARON DON S 309.81 Chronic Post-traumatic Stress Disorder 01/28/2009 ANAYELI BARON DON S 564.01 Constipation Slow Transit 01/28/2009 ANAYELI ROOFING SUPERVISOR, DON S 780.52 insomnia 01/28/2009 ANAYELI ROOFING SUPERVISOR, DON S 780.79 Feeling Tired Or Poorly 01/28/2009 ANAYELI BARON, DON S 309.81 Chronic Post-traumatic Stress Disorder 01/28/2009 ANAYELI ROOFING SUPERVISOR, DON S 564.01 Constipation Slow Transit 01/28/2009 ANAYELI BARON DON S 780.52 insomnia 01/28/2009 ANAYELI ROOFING SUPERVISOR, DON S 780.79 Feeling Tired Or Poorly 01/28/2009 ANAYELI BARON, DON S 309.81 Chronic Post-traumatic Stress Disorder 01/28/2009 ANAYELI BARON DON S 564.01 Constipation Slow Transit 01/28/2009 ANAYELI BARON DON S 780.52 insomnia 01/28/2009 ANAYELI BARON, DON S 780.79 Feeling Tired Or Poorly 01/28/2009 ANAYELI BARON DON S 309.81 Chronic Post-traumatic Stress Disorder 01/28/2009 ANAYELI BARON, DON S 564.01 Constipation Slow Transit 01/28/2009 ANAYELI BARON DON S 780.52 insomnia 01/28/2009 ANAYELI BAORN, DON S 780.79 Feeling Tired Or Poorly 01/28/2009 WHITE DDS, STALIN J 309.81 Chronic Post-traumatic Stress Disorder 01/28/2009 WHITE DDS, STALIN J 564.01 Constipation Slow Transit 01/28/2009 WHITE DDS, STALIN J 780.52 insomnia 01/28/2009 WHITE DDS, STALIN J 780.79 Feeling Tired Or Poorly 01/28/2009 ANAYELI BARON, DON S 309.81 Chronic Post-traumatic Stress Disorder 01/28/2009 ANAYELI BARON DON S 564.01 Constipation Slow Transit 01/28/2009 ANAYELI BARON, DON S 780.52 insomnia 01/28/2009 DOMINIQUE GUADALUPE APRNNDA S 780.79 Feeling Tired Or Poorly 02/27/2009 DOMINIQUE GUADALUPE APRNNDA S 461.1 Sinusitis Acute Frontal 02/27/2009 DOMINIQUE GUADALUPE APRNNDA S 784.0 Headache 02/27/2009 461.1 Sinu sitis Acute Frontal 02/27/2009 784.0 Headache 02/27/2009 ANAYELI BARON, DON S 461.1 Sinusitis Acute Frontal 02/27/2009 ANAYELI BARON, DON S 784.0 Headache 02/27/2009 DOMINIQUE GUADALUPE APRNNDA S 461.1 Sinusitis Acute Frontal 02/27/2009 DOMINIQUE GUADALUPE APRNNDA S 784.0 Headache 02/27/2009 461.1 Sinu sitis Acute Frontal 02/27/2009 784.0 Headache 02/27/2009 461.1 Sinu sitis Acute Frontal 02/27/2009 784.0 Headache 02/27/2009 MELISSA DAHL MD 461.1 Sinusitis Acute Frontal 02/27/2009 MELISSA DAHL MD 784.0 Headache 02/27/2009 DOMINIQUE GUADALUPE APRNNDA S 461.1 Sinusitis Acute Frontal 02/27/2009 DOMINIQUE GUADALUPE APRNNDA S 784.0 Headache 02/27/2009 NEISHA SANCHEZ, KACIE M 461.1 Sinusitis Acute Frontal 02/27/2009 NEISHA SANCHEZ, KACIE M 784.0 Headache 02/27/2009 ANAYELI BARON, DON S 461.1 Sinusitis Acute Frontal 02/27/2009 ANAYELI BARON, DON S 784.0 Headache 02/27/2009 DOMINIQUE GUADALUPE APRNNDA S 461.1 Sinusitis Acute Frontal 02/27/2009 ANAYELI ROOFING SUPERVISOR, DON S 784.0 Headache 02/27/2009 ANAYELI BARON DON S 461.1 Sinusitis Acute Frontal 02/27/2009 ANAYELI BARON DON S 784.0 Headache 02/27/2009 ANAYELISAMANTHA HORN APRNA S 461.1 Sinusitis Acute Frontal 02/27/2009 ODMINIQUE GUADALUPE APRNNDA S 784.0 Headache 02/27/2009 WHITE DDS, STALIN J 46 1.1 Sinusitis Acute Frontal 02/27/2009 WHITE DDS, STALIN J 78 4.0 Headache 02/27/2009 SAMANTHA GUADALUPE APRNA S 461.1 Sinusitis Acute Frontal 02/27/2009 SAMANTHA GUADALUPE APRNA S 784.0 Headache 03/20/2009 SAMANTHA GUADALUPE APRNA S 724.1 upper back pain (between shoulder blades) 03/20/2009 SAMANTHA GUADALUPE APRNA S 787.01 Nausea With Vomiting 03/20/2009 SAMANTHA GUADALUPE APRNA S 787.91 Diarrhea 03/20/2009 724.1 uppe r back pain (between shoulder blades) 03/20/2009 787.01 [place] With Vomiting 03/20/2009 787.91 Jessica rrhea 03/20/2009 SAMANTHA GUADALUPE APRNA S 724.1 upper back pain (between shoulder blades) 03/20/2009 SAMANTHA GUADALUPE APRNA S 787.01 Nausea With Vomiting 03/20/2009 DOMINIQUE GUADALUPE APRNNDA S 787.91 Diarrhea 03/20/2009 DOMINIQUE GUADALUPE APRNNDA S 724.1 upper back pain (between shoulder blades) 03/20/2009 SAMANTHA GUADALUPE APRNA S 787.01 Nausea With Vomiting 03/20/2009 SAMANTHA GUADALUPE APRNA S 787.91 Diarrhea 03/20/2009 724.1 uppe r back pain (between shoulder blades) 03/20/2009 787.01 [place] With Vomiting 03/20/2009 787.91 Jessica rrhea 03/20/2009 724.1 uppe r back pain (between shoulder blades) 03/20/2009 787.01 [place] With Vomiting 03/20/2009 787.91 Jessica rrhea 03/20/2009 MELISSA DAHL MD 724.1 upper back pain (between shoulder blades) 03/20/2009 MELISSA DAHL MD 787.0 1 Nausea With Vomiting 03/20/2009 MELISSA DAHL MD 787.9 1 Diarrhea 03/20/2009 ANAYELI ROOFING SUPERVISOR, DON S 724.1 upper back pain (between shoulder blades) 03/20/2009 ANAYELI ROOFING SUPERVISOR, DON S 787.01 Nausea With Vomiting 03/20/2009 ANAYELI ROOFING SUPERVISOR, DON S 787.91 Diarrhea 03/20/2009 NEISHA NEGRONSKACIE 724.1 upper back pain (between shoulder blades) 03/20/2009 NEISHA JAMILS, KACIE Fontanez 787.01 Nausea With Vomiting 03/20/2009 NEISHA DDS, KACIE Fontanez 787.91 Diarrhea 03/20/2009 ANAYELI ROOFING SUPERVISOR, DON S 724.1 upper back pain (between shoulder blades) 03/20/2009 ANAYELI ROOFING SUPERVISOR, DON S 787.01 Nausea With Vomiting 03/20/2009 ANAYELI ROOFING SUPERVISOR, DON S 787.91 Diarrhea 03/20/2009 ANAYELI ROOFING SUPERVISOR, DON S 724.1 upper back pain (between shoulder blades) 03/20/2009 ANAYELI ROOFING SUPERVISOR, DON S 787.01 Nausea With Vomiting 03/20/2009 ANAYELI ROOFING SUPERVISOR, DON S 787.91 Diarrhea 03/20/2009 ANAYELI ROOFING SUPERVISOR, DON S 724.1 upper back pain (between shoulder blades) 03/20/2009 ANAYELI ROOFING SUPERVISOR, DON S 787.01 Nausea With Vomiting 03/20/2009 ANAYELI ROOFING SUPERVISOR, DON S 787.91 Diarrhea 03/20/2009 ANAYELI ROOFING SUPERVISOR, DON S 724.1 upper back pain (between shoulder blades) 03/20/2009 ANAYELI ROOFING SUPERVISOR, DON S 787.01 Nausea With Vomiting 03/20/2009 ANAYELI ROOFING SUPERVISOR, DON S 787.91 Diarrhea 03/20/2009 WHITE DDS, STALIN J 72 4.1 upper back pain (between shoulder blades) 03/20/2009 WHITE DDS, STALIN J 787.01 Nausea With Vomiting 03/20/2009 WHITE DDS, STALIN J 787.91 Diarrhea 03/20/2009 SAMANTHA GUADALUPE APRNA S 724.1 upper back pain (between shoulder blades) 03/20/2009 DOMINIQUE GUADALUPE APRNNDA S 787.01 Nausea With Vomiting 03/20/2009 DOMINIQUE GUADALUPE APRNNDA S 787.91 Diarrhea 03/25/2009 DOMINIQUE GUADALUPE APRNNDA S 300.02 GENERALIZED ANXIETY DISORDER 03/25/2009 300.02 GEN ERALIZED ANXIETY DISORDER 03/25/2009 DOMINIQUE GUADALUPE APRNNDA S 300.02 GENERALIZED ANXIETY DISORDER 03/25/2009 DOMINIQUE GUADALUPE APRNNDA S 300.02 GENERALIZED ANXIETY DISORDER 03/25/2009 300.02 GEN ERALIZED ANXIETY DISORDER 03/25/2009 300.02 GEN ERALIZED ANXIETY DISORDER 03/25/2009 MELISSA DAHL MD 300.0 2 GENERALIZED ANXIETY DISORDER 03/25/2009 DOMINIQUE GUADALUPE APRNNDA S 300.02 GENERALIZED ANXIETY DISORDER 03/25/2009 NEISHA NEGRONS, KACIE Fontanez 300.02 GENERALIZED ANXIETY DISORDER 03/25/2009 DOMINIQUE GUADALUPE APRNNDA S 300.02 GENERALIZED ANXIETY DISORDER 03/25/2009 DOMINIQUE GUADALUPE APRNNDA S 300.02 GENERALIZED ANXIETY DISORDER 03/25/2009 DOMINIQUE GUADALUPE APRNNDA S 300.02 GENERALIZED ANXIETY DISORDER 03/25/2009 DOMINIQUE GUADALUPE APRNNDA S 300.02 GENERALIZED ANXIETY DISORDER 03/25/2009 STALIN PUGA DDS 300.02 GENERALIZED ANXIETY DISORDER 03/25/2009 DOMINIQUE GUADALUPE APRNNDA S 300.02 GENERALIZED ANXIETY DISORDER 05/26/2009 DOMINIQUE GUADALUPE APRNNDA S 041.19 Staphylococcus Infection In Conditions C lassified Elsewhere And Of Unspecified Site, Other Staphylococcus 05/26/2009 ANAYELI BARON, DON S 709.9 Dermatology - Non-infectious 05/26/2009 041.19 Sta phylococcus Infection In Conditions Classified Elsewhere And Of Unspecified Site, Other Staphylococcus 05/26/2009 709.9 Derm atology - Non- infectious 05/26/2009 ANAYELI BARON DON S 041.19 Staphylococcus Infection In Conditions C lassified Elsewhere And Of Unspecified Site, Other Staphylococcus 05/26/2009 ANAYELI BARON DON S 709.9 Dermatology - Non-infectious 05/26/2009 ANAYELI ROOFING SUPERVISOR, DON S 041.19 Staphylococcus Infection In Conditions C lassified Elsewhere And Of Unspecified Site, Other Staphylococcus 05/26/2009 ANAYELI ROOFING SUPERVISOR, DON S 709.9 Dermatology - Non-infectious 05/26/2009 041.19 Sta phylococcus Infection In Conditions Classified Elsewhere And Of Unspecified Site, Other Staphylococcus 05/26/2009 709.9 Derm atology - Non- infectious 05/26/2009 041.19 Sta phylococcus Infection In Conditions Classified Elsewhere And Of Unspecified Site, Other Staphylococcus 05/26/2009 709.9 Derm atology - Non- infectious 05/26/2009 MELISSA DAHL MD 041.1 9 Staphylococcus Infection In Conditions Classified Elsewhere And Of Unspecified Site, Other Staphylococcus 05/26/2009 MELISSA DAHL MD 709.9 Dermatology - Non-infectious 05/26/2009 ANAYELI ROOFING SUPERVISOR, DON S 041.19 Staphylococcus Infection In Conditions C lassified Elsewhere And Of Unspecified Site, Other Staphylococcus 05/26/2009 ANAYELI ROOFING SUPERVISOR, DON S 709.9 Dermatology - Non-infectious 05/26/2009 NEISHA DDS, KACIE M 041.19 Staphylococcus Infection In Conditions C lassified Elsewhere And Of Unspecified Site, Other Staphylococcus 05/26/2009 NEISHA DDS, KACIE M 709.9 Dermatology - Non-infectious 05/26/2009 ANAYELI ROOFING SUPERVISOR, DON S 041.19 Staphylococcus Infection In Conditions C lassified Elsewhere And Of Unspecified Site, Other Staphylococcus 05/26/2009 ANAYELI ROOFING SUPERVISOR, DON S 709.9 Dermatology - Non-infectious 05/26/2009 ANAYELI ROOFING SUPERVISOR, DON S 041.19 Staphylococcus Infection In Conditions C lassified Elsewhere And Of Unspecified Site, Other Staphylococcus 05/26/2009 ANAYELI ROOFING SUPERVISOR, DON S 709.9 Dermatology - Non-infectious 05/26/2009 ANAYELI ROOFING SUPERVISOR, DON S 041.19 Staphylococcus Infection In Conditions C lassified Elsewhere And Of Unspecified Site, Other Staphylococcus 05/26/2009 ANAYELI ROOFING SUPERVISOR, DON S 709.9 Dermatology - Non-infectious 05/26/2009 ANAYELI ROOFING SUPERVISOR, DON S 041.19 Staphylococcus Infection In Conditions C lassified Elsewhere And Of Unspecified Site, Other Staphylococcus 05/26/2009 DOMINIQUE GUADALUPE APRNNDA S 709.9 Dermatology - Non-infectious 05/26/2009 WHITE DDS, STALIN J 041.19 Staphylococcus Infection In Conditions C lassified Elsewhere And Of Unspecified Site, Other Staphylococcus 05/26/2009 WHITE DDS, STALIN J 70 9.9 Dermatology - Non-infectious 05/26/2009 DOMINIQUE GUADALUPE APRNNDA S 041.19 Staphylococcus Infection In Conditions C lassified Elsewhere And Of Unspecified Site, Other Staphylococcus 05/26/2009 DOMINIQUE GUADALUPE APRNNDA S 709.9 Dermatology - Non-infectious 06/03/2009 Ot 724.1 06/03/2009 Ot V57.1 08/18/2009 SAMANTHA GUADALUPE APRNA S 723.1 Neck Pain 08/18/2009 723.1 Neck Pain 08/18/2009 SAMANTHA GUADALUPE APRNA S 723.1 Neck Pain 08/18/2009 SAMANTHA GUADALUPE APRNA S 723.1 Neck Pain 08/18/2009 723.1 Neck Pain 08/18/2009 723.1 Neck Pain 08/18/2009 MELISSA DAHL MD 723.1 Neck Pain 08/18/2009 SAMANTHA GUADALUPE APRNA S 723.1 Neck Pain 08/18/2009 KACIE DRIVER DDS 723.1 Neck Pain 08/18/2009 DOMINIQUE GUADALUPE APRNNDA S 723.1 Neck Pain 08/18/2009 DOMINIQUE GUADALUPE APRNNDA S 723.1 Neck Pain 08/18/2009 ANAYELI BARON DON S 723.1 Neck Pain 08/18/2009 DOMINIQUE GUADALUPE APRNNDA S 723.1 Neck Pain 08/18/2009 EDD NEGRONS, STALIN Gordon 72 3.1 Neck Pain 08/18/2009 DOMINIQUE GUADALUPE APRNNDA S 723.1 Neck Pain 08/31/2009 Ot 722.4 08/31/2009 Ot V57.1 10/14/2009 SAMANTHA GUADALUPE APRNA S V07.4 taking female hormones for postmenopausal HRT 10/14/2009 ANAYELI ROOFING SUPERVISOR, DON S V16.3 Hereditary Site-specific Breast Cancer 10/14/2009 ANAYELI ROOFING SUPERVISOR, DON S V76.10 Visit For: Screening Exam Malignant Neoplasm Breast 10/14/2009 V07.4 taki ng female hormones for postmenopausal HRT 10/14/2009 V16.3 Here ditary Site- specific Breast Cancer 10/14/2009 V76.10 Vis it For: Screening Exam Malignant Neoplasm Breast 10/14/2009 DOMINIQUE GUADALUPE APRNNDA S V07.4 taking female hormones for postmenopausal HRT 10/14/2009 ANAYELI ROOFING SUPERVISOR, DON S V16.3 Hereditary Site-specific Breast Cancer 10/14/2009 ANAYELI ROOFING SUPERVISOR, DON S V76.10 Visit For: Screening Exam Malignant Neoplasm Breast 10/14/2009 ANAYELI ROOFING SUPERVISOR, DON S V07.4 taking female hormones for postmenopausal HRT 10/14/2009 ANAYELI BARON DON S V16.3 Hereditary Site-specific Breast Cancer 10/14/2009 ANAYELI BARON DON S V76.10 Visit For: Screening Exam Malignant Neoplasm Breast 10/14/2009 V07.4 taki ng female hormones for postmenopausal HRT 10/14/2009 V16.3 Here ditary Site- specific Breast Cancer 10/14/2009 V76.10 Vis it For: Screening Exam Malignant Neoplasm Breast 10/14/2009 V07.4 taki ng female hormones for postmenopausal HRT 10/14/2009 V16.3 Here ditary Site- specific Breast Cancer 10/14/2009 V76.10 Vis it For: Screening Exam Malignant Neoplasm Breast 10/14/2009 MELISSA DAHL MD V07.4 taking female hormones for postmenopausal HRT 10/14/2009 MELISSA DAHL MD V16.3 Hereditary Site-specific Breast Cancer 10/14/2009 MELISSA DAHL MD V76.1 0 Visit For: Screening Exam Malignant Neoplasm Breast [...] Screening Exam Malignant Neoplasm Breast 10/14/2009 ANAYELI ROOFING SUPERVISOR, DON S V07.4 taking female hormones for postmenopausal HRT 10/14/2009 ANAYELI ROOFING SUPERVISOR, DON S V16.3 Hereditary Site-specific Breast Cancer 10/14/2009 ANAYELI ROOFING SUPERVISOR, DON S V76.10 Visit For: Screening Exam Malignant Neoplasm Breast 10/14/2009 ANAYELI ROOFING SUPERVISOR, DON S V07.4 taking female hormones for postmenopausal HRT 10/14/2009 ANAYELI ROOFING SUPERVISOR, DON S V16.3 Hereditary Site-specific Breast Cancer 10/14/2009 ANAYELI ROOFING SUPERVISOR, DON S V76.10 Visit For: Screening Exam Malignant Neoplasm Breast 10/14/2009 ANAYELI ROOFING SUPERVISOR, DON S V07.4 taking female hormones for postmenopausal HRT 10/14/2009 ANAYELI ROOFING SUPERVISOR, DON S V16.3 Hereditary Site-specific Breast Cancer 10/14/2009 ANAYELI ROOFING SUPERVISOR, DNO S V76.10 Visit For: Screening Exam Malignant Neoplasm Breast 10/14/2009 ANAYELI ROOFING SUPERVISOR, DON S V07.4 taking female hormones for postmenopausal HRT 10/14/2009 ANAYELI ROOFING SUPERVISOR, DON S V16.3 Hereditary Site-specific Breast Cancer 10/14/2009 ANAYELI ROOFING SUPERVISOR, DON S V76.10 Visit For: Screening Exam Malignant Neoplasm Breast 10/14/2009 WHITE DDS, STALIN J V0 7.4 taking female hormones for postmenopausal HRT 10/14/2009 WHITE DDS, STALIN J V1 6.3 Hereditary Site-specific Breast Cancer 10/14/2009 WHITE DDS, STALIN J V76.10 Visit For: Screening Exam Malignant Neoplasm Breast 10/14/2009 ANAYELI ROOFING SUPERVISOR, DON S V07.4 taking female hormones for postmenopausal HRT 10/14/2009 ANAYELI PATN, DON S V16.3 Hereditary Site-specific Breast Cancer 10/14/2009 ANAYELI ROOFING SUPERVISOR, DON S V76.10 Visit For: Screening Exam Malignant Neoplasm Breast 10/29/2009 ANAYELI ROOFING SUPERVISOR, DON S 599.0 Urinary Tract Infection, Site Not Specified 10/29/2009 599.0 Urin amarilis Tract Infection, Site Not Specified 10/29/2009 ANAYELI ROOFING SUPERVISOR, DON S 599.0 Urinary Tract Infection, Site Not Specified 10/29/2009 ANAYELI ROOFING SUPERVISOR, DON S 599.0 Urinary Tract Infection, Site Not Specified 10/29/2009 599.0 Urin amarilis Tract Infection, Site Not Specified 10/29/2009 599.0 Urin amarilis Tract Infection, Site Not Specified 10/29/2009 NABILA MARSHALL, MELISSA 599.0 Urinary Tract Infection, Site Not Specified 10/29/2009 ANAYELI ROOFING SUPERVISOR, DON S 599.0 Urinary Tract Infection, Site Not Specified 10/29/2009 NEISHA SANCHEZ, KACIE Fontanez 599.0 Urinary Tract Infection, Site Not Specified 10/29/2009 ANAYELI ROOFING SUPERVISOR, DON S 599.0 Urinary Tract Infection, Site Not Specified 10/29/2009 ANAYELI ROOFING SUPERVISOR, DON S 599.0 Urinary Tract Infection, Site Not Specified 10/29/2009 ANAYELI ROOFING SUPERVISOR, DON S 599.0 Urinary Tract Infection, Site Not Specified 10/29/2009 ANAYELI ROOFING SUPERVISOR, DON S 599.0 Urinary Tract Infection, Site Not Specified 10/29/2009 EDD SANCHEZ, STALIN Gordon 59 9.0 Urinary Tract Infection, Site Not Specified 10/29/2009 ANAYELI ROOFING SUPERVISOR, DON S 599.0 Urinary Tract Infection, Site Not Specified 11/03/2009 ANAYELI ROOFING SUPERVISOR, DON S 595.0 Cystitis Acute 11/03/2009 ANAYELI ROOFING SUPERVISOR, DON S 788.1 Dysuria 11/03/2009 595.0 Cyst itis Acute 11/03/2009 788.1 Dysuria 11/03/2009 ANAYELI ROOFING SUPERVISOR, DON S 595.0 Cystitis Acute 11/03/2009 ANAYELI ROOFING SUPERVISOR, DON S 788.1 Dysuria 11/03/2009 ANAYELI ROOFING SUPERVISOR, DON S 595.0 Cystitis Acute 11/03/2009 ANAYELI PATN, DON S 788.1 Dysuria 11/03/2009 595.0 Cyst itis Acute 11/03/2009 788.1 Dysuria 11/03/2009 595.0 Cyst itis Acute 11/03/2009 788.1 Dysuria 11/03/2009 NABILA MARSHALL, MELISSA 595.0 Cystitis Acute 11/03/2009 MELISSA DAHL MD 788.1 Dysuria 11/03/2009 ANAYELI BARON, DON S 595.0 Cystitis Acute 11/03/2009 ANAYELI PATN, DON S 788.1 Dysuria 11/03/2009 NEISHA DDS, KACIE Fontanez 595.0 Cystitis Acute 11/03/2009 NEISHA DDS, KACIE Fontanez 788.1 Dysuria 11/03/2009 ANAYELI BARON, DON S 595.0 Cystitis Acute 11/03/2009 ANAYELI BARON, DON S 788.1 Dysuria 11/03/2009 ANAYELI BARON, DON S 595.0 Cystitis Acute 11/03/2009 ANAYELI PATN, DON S 788.1 Dysuria 11/03/2009 ANAYELI BARON, DON S 595.0 Cystitis Acute 11/03/2009 ANAYELI PATN, DON S 788.1 Dysuria 11/03/2009 ANAYELI BARON, DON S 595.0 Cystitis Acute 11/03/2009 ANAYELI BARON, DON S 788.1 Dysuria 11/03/2009 WHITE DDS, STALIN J 59 5.0 Cystitis Acute 11/03/2009 WHITE DDS, STALIN J 78 8.1 Dysuria 11/03/2009 ANAYELI PATN, DON S 595.0 Cystitis Acute 11/03/2009 ANAYELI BARON, DON S 788.1 Dysuria 12/10/2009 ANAYELI BARON, DON S 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, TOBACCO USE DISORDER 12/10/2009 DOMIINQUE GUADALUPE APRNNDA S V65.42 COUNSELING ON SUBSTANCE USE AND ABUSE 12/10/2009 305.1 NOND EPENDENT ABUSE OF DRUGS, TOBACCO USE DISORDER 12/10/2009 V65.42 COU NSELING ON SUBSTANCE USE AND ABUSE 12/10/2009 DON GUADALUPE APRN S 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, TOBACCO USE DISORDER 12/10/2009 SAMANTHA GUADALUPE APRNA S V65.42 COUNSELING ON SUBSTANCE USE AND ABUSE 12/10/2009 DON GUADALUPE APRN S 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, TOBACCO USE DISORDER 12/10/2009 DON GUADALUPE APRN S V65.42 COUNSELING ON SUBSTANCE USE AND ABUSE 12/10/2009 305.1 NOND EPENDENT ABUSE OF DRUGS, TOBACCO USE DISORDER 12/10/2009 V65.42 COU NSELING ON SUBSTANCE USE AND ABUSE 12/10/2009 305.1 NOND EPENDENT ABUSE OF DRUGS, TOBACCO USE DISORDER 12/10/2009 V65.42 COU NSELING ON SUBSTANCE USE AND ABUSE 12/10/2009 MELISSA DAHL MD 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, TOBACCO USE DISORDER 12/10/2009 MELISSA DAHL MD V65.4 2 COUNSELING ON SUBSTANCE USE AND ABUSE 12/10/2009 [...] COUNSELING ON SUBSTANCE USE AND ABUSE 12/10/2009 WHITE DDS, STALIN J 30 5.1 NONDEPENDENT ABUSE OF DRUGS, TOBACCO USE DISORDER 12/10/2009 WHITE DDS, STALIN J V65.42 COUNSELING ON SUBSTANCE USE AND ABUSE 12/10/2009 DON GUADALUPE APRN S 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, TOBACCO USE DISORDER 12/10/2009 DON GUADALUPE APRN S V65.42 COUNSELING ON SUBSTANCE USE AND ABUSE 12/25/2009 Ot 786.50 12/25/2009 Ot 786.52 03/09/2010 DON GUADALUPE APRN S 780.8 GENERALIZED HYPERHIDROSIS 03/09/2010 DON UGADALUPE APRN S 786.50 Chest Pain 03/09/2010 780.8 GENE RALIZED HYPERHIDROSIS 03/09/[address] Pain 03/09/2010 DON GUADALUPE APRN S 780.8 GENERALIZED HYPERHIDROSIS 03/09/2010 DON GUADALUPE APRN S 786.50 Chest Pain 03/09/2010 DON GUADALUPE APRN S 780.8 GENERALIZED HYPERHIDROSIS 03/09/2010 SAMANTHA GUADALUPE APRNA S 786.50 Chest Pain 03/09/2010 780.8 GENE RALIZED HYPERHIDROSIS 03/09/[address] Pain 03/09/2010 780.8 GENE RALIZED HYPERHIDROSIS 03/09/[address] Pain 03/09/2010 MELISSA DAHL MD 780.8 GENERALIZED HYPERHIDROSIS 03/09/2010 MELISSA DAHL MD 786.5 0 Chest Pain 03/09/2010 DON GUADALUPE APRN S 780.8 GENERALIZED HYPERHIDROSIS 03/09/2010 SAMANTHA GUADALUPE APRNA S 786.50 Chest Pain 03/09/2010 KACIE DRIVER DDS 780.8 GENERALIZED HYPERHIDROSIS 03/09/2010 KACIE DRIVER DDS 786.50 Chest Pain 03/09/2010 ANAYELI ROOFING SUPERVISOR, DON S 780.8 GENERALIZED HYPERHIDROSIS 03/09/2010 ANAYELI ROOFING SUPERVISOR, DON S 786.50 Chest Pain 03/09/2010 ANAYELI ROOFING SUPERVISOR, DON S 780.8 GENERALIZED HYPERHIDROSIS 03/09/2010 ANAYELI ROOFING SUPERVISOR, DON S 786.50 Chest Pain 03/09/2010 ANAYELI ROOFING SUPERVISOR, DON S 780.8 GENERALIZED HYPERHIDROSIS 03/09/2010 ANAYELI ROOFING SUPERVISOR, DON S 786.50 Chest Pain 03/09/2010 ANAYELI ROOFING SUPERVISOR, DON S 780.8 GENERALIZED HYPERHIDROSIS 03/09/2010 ANAYELI ROOFING SUPERVISOR, DON S 786.50 Chest Pain 03/09/2010 WHITE DDS, STALIN J 78 0.8 GENERALIZED HYPERHIDROSIS 03/09/2010 WHITE DDS, STALIN J 786.50 Chest Pain 03/09/2010 ANAYELI ROOFING SUPERVISOR, DON S 780.8 GENERALIZED HYPERHIDROSIS 03/09/2010 ANAYELI ROOFING SUPERVISOR, DON S 786.50 Chest Pain 03/10/2010 ANAYELI ROOFING SUPERVISOR, DON S V15.85 PERSONAL HISTORY OF CONTACT WITH AND (CORTÉS SPECTED) EXPOSURE TO POTENTIALLY HAZARDOUS BODY FLUIDS 03/10/2010 V15.85 PER [place] HISTORY OF CONTACT WITH AND (SUSPECTED) EXPOSURE TO POTENTIALLY HAZARDOUS BODY FLUIDS 03/10/2010 DOMINIQUE GUADALUPE APRNNDA S V15.85 PERSONAL HISTORY OF CONTACT WITH AND (CORTÉS SPECTED) EXPOSURE TO POTENTIALLY HAZARDOUS BODY FLUIDS 03/10/2010 DOMINIQUE GUADALUPE APRNNDA S V15.85 PERSONAL HISTORY OF CONTACT WITH AND (CORTÉS SPECTED) EXPOSURE TO POTENTIALLY HAZARDOUS BODY FLUIDS 03/10/2010 V15.85 PER [place] HISTORY OF CONTACT WITH AND (SUSPECTED) EXPOSURE TO POTENTIALLY HAZARDOUS BODY FLUIDS 03/10/2010 V15.85 PER [place] HISTORY OF CONTACT WITH AND (SUSPECTED) EXPOSURE TO POTENTIALLY HAZARDOUS BODY FLUIDS 03/10/2010 MEILSSA DAHL MD V15.8 5 PERSONAL HISTORY OF CONTACT WITH AND (SUSPECTED) EXPOSURE TO POTENTIALLY HAZARDOUS BODY FLUIDS 03/10/2010 DOMINIQUE GUADALUPE APRNNDA S V15.85 PERSONAL HISTORY OF CONTACT WITH AND (CORTÉS SPECTED) EXPOSURE TO POTENTIALLY HAZARDOUS BODY FLUIDS 03/10/2010 KACIE DRIVER DDS V15.85 PERSONAL HISTORY OF CONTACT WITH AND (CORTÉS SPECTED) EXPOSURE TO POTENTIALLY HAZARDOUS BODY FLUIDS 03/10/2010 ANAYELI ROOFING SUPERVISOR, DON S V15.85 PERSONAL HISTORY OF CONTACT WITH AND (CORTÉS SPECTED) EXPOSURE TO POTENTIALLY HAZARDOUS BODY FLUIDS 03/10/2010 ANAYELI ROOFING SUPERVISOR, DON S V15.85 PERSONAL HISTORY OF CONTACT WITH AND (CORTÉS SPECTED) EXPOSURE TO POTENTIALLY HAZARDOUS BODY FLUIDS 03/10/2010 ANAYELI ROOFING SUPERVISOR, DON S V15.85 PERSONAL HISTORY OF CONTACT WITH AND (CORTÉS SPECTED) EXPOSURE TO POTENTIALLY HAZARDOUS BODY FLUIDS 03/10/2010 ANAYELI ROOFING SUPERVISOR, DON S V15.85 PERSONAL HISTORY OF CONTACT WITH AND (CORTÉS SPECTED) EXPOSURE TO POTENTIALLY HAZARDOUS BODY FLUIDS 03/10/2010 STALIN PUGA DDS V15.85 PERSONAL HISTORY OF CONTACT WITH AND (CORTÉS SPECTED) EXPOSURE TO POTENTIALLY HAZARDOUS BODY FLUIDS 03/10/2010 ANAYELI ROOFING SUPERVISOR, DON S V15.85 PERSONAL HISTORY OF CONTACT WITH AND (CORTÉS SPECTED) EXPOSURE TO POTENTIALLY HAZARDOUS BODY FLUIDS 03/17/2010 ANAYELI ROOFING SUPERVISOR, DON S 414.01 CAD 03/17/2010 414.01 CAD 03/17/2010 ANAYELI ROOFING SUPERVISOR, DON S 414.01 CAD 03/17/2010 ANAYELI ROOFING SUPERVISOR, DON S 414.01 CAD 03/17/2010 414.01 CAD 03/17/2010 414.01 CAD 03/17/2010 NABILA MARSHALL, MELISSA 414.0 1 CAD 03/17/2010 ANAYELI ROOFING SUPERVISOR, DON S 414.01 CAD 03/17/2010 KACIE DRIVER DDS 414.01 CAD 03/17/2010 ANAYELI ROOFING SUPERVISOR, DON S 414.01 CAD 03/17/2010 ANAYELI ROOFING SUPERVISOR, DON S 414.01 CAD 03/17/2010 ANAYELI ROOFING SUPERVISOR, DON S 414.01 CAD 03/17/2010 ANAYELI ROOFING SUPERVISOR, DON S 414.01 CAD 03/17/2010 STALIN PUGA DDS 414.01 CAD 03/17/2010 ANAYELI ROOFING SUPERVISOR, DON S 414.01 CAD 03/19/2010 Ot 300.02 03/19/2010 Ot 305.22 03/19/2010 Ot 724.5 03/19/2010 Ot 729.1 03/19/2010 Ot 786.59 03/19/2010 Ot V17.49 03/19/2010 Ot V58.69 07/20/2010 SAMANTHA GUADALUPE APRNA S 847.9 Sprain/strain Back Unspec 07/20/2010 847.9 Spra in/strain Back Unspec 07/20/2010 DOMINIQUE GUADALUPE APRNNDA S 847.9 Sprain/strain Back Unspec 07/20/2010 DOMINIQUE GUADALUPE APRNNDA S 847.9 Sprain/strain Back Unspec 07/20/2010 847.9 Spra in/strain Back Unspec 07/20/2010 847.9 Spra in/strain Back Unspec 07/20/2010 MELISSA DAHL MD 847.9 Sprain/strain Back Unspec 07/20/2010 SAMANTHA GUADALUPE APRNA S 847.9 Sprain/strain Back Unspec 07/20/2010 KACIE DRIVER DDS 847.9 Sprain/strain Back Unspec 07/20/2010 DOMINIQUE GUADALUPE APRNNDA S 847.9 Sprain/strain Back Unspec 07/20/2010 DOMINIQUE GUADALUPE APRNNDA S 847.9 Sprain/strain Back Unspec 07/20/2010 DOMINIQUE GUADALUPE APRNNDA S 847.9 Sprain/strain Back Unspec 07/20/2010 DOMINIQUE GUADALUPE APRNNDA S 847.9 Sprain/strain Back Unspec 07/20/2010 STALIN PUGA DDS 84 7.9 Sprain/strain Back Unspec 07/20/2010 DOMINIQUE GUADALUPE APRNNDA S 847.9 Sprain/strain Back Unspec 08/06/2010 DOMINIQUE GUADALUPE APRNNDA S 682.9 Cellulitis And Abscess Of Unspecified Sites 08/06/2010 682.9 Cell ulitis And Abscess Of Unspecified Sites 08/06/2010 DOMINIQUE GUADALUPE APRNNDA S 682.9 Cellulitis And Abscess Of Unspecified Sites 08/06/2010 ODMINIQUE GUADALUPE APRNNDA S 682.9 Cellulitis And Abscess Of Unspecified Sites 08/06/2010 682.9 Cell ulitis And Abscess Of Unspecified Sites 08/06/2010 682.9 Cell ulitis And Abscess Of Unspecified Sites 08/06/2010 NABILA MARSHALL, MELISSA 682.9 Cellulitis And Abscess Of Unspecified Sites 08/06/2010 ANAYELI ROOFING SUPERVISOR, DON S 682.9 Cellulitis And Abscess Of Unspecified Sites 08/06/2010 NEISHA SANCHEZ, KACIE Fontanez 682.9 Cellulitis And Abscess Of Unspecified Sites 08/06/2010 ANAYELI ROOFING SUPERVISOR, DON S 682.9 Cellulitis And Abscess Of Unspecified Sites 08/06/2010 ANAYELI ROOFING SUPERVISOR, DON S 682.9 Cellulitis And Abscess Of Unspecified Sites 08/06/2010 ANAYELI ROOFING SUPERVISOR, DON S 682.9 Cellulitis And Abscess Of Unspecified Sites 08/06/2010 ANAYELI ROOFING SUPERVISOR, DON S 682.9 Cellulitis And Abscess Of Unspecified Sites 08/06/2010 EDD SANCHEZ, STALIN Gordon 68 2.9 Cellulitis And Abscess Of Unspecified Sites 08/06/2010 ANAYELI ROOFING SUPERVISOR, DON S 682.9 Cellulitis And Abscess Of Unspecified Sites 09/02/2010 ANAYELI ROOFING SUPERVISOR, DON S 611.71 Breast Pain 09/02/2010 ANAYELI ROOFING SUPERVISOR, DON S 787.3 Gas/bloating Pain 09/02/2010 ANAYELI ROOFING SUPERVISOR, DON S 789.03 Abdominal Pain Right Lower Quadrant 09/02/2010 611.71 Dominique ast Pain 09/02/2010 787.3 Gas/ bloating Pain 09/02/2010 789.03 Abd ominal Pain Right Lower Quadrant 09/02/2010 ANAYELI ROOFING SUPERVISOR, DON S 611.71 Breast Pain 09/02/2010 ANAYELI ROOFING SUPERVISOR, DON S 787.3 Gas/bloating Pain 09/02/2010 ANAYELI ROOFING SUPERVISOR, DON S 789.03 Abdominal Pain Right Lower Quadrant 09/02/2010 ANAYELI ROOFING SUPERVISOR, DON S 611.71 Breast Pain 09/02/2010 ANAYELI ROOFING SUPERVISOR, DON S 787.3 Gas/bloating Pain 09/02/2010 ANAYELI ROOFING SUPERVISOR, DON S 789.03 Abdominal Pain Right Lower Quadrant 09/02/2010 611.71 Dominique ast Pain 09/02/2010 787.3 Gas/ bloating Pain 09/02/2010 789.03 Abd ominal Pain Right Lower Quadrant 09/02/2010 611.71 Dominique ast Pain 09/02/2010 787.3 Gas/ bloating Pain 09/02/2010 789.03 Abd ominal Pain Right Lower Quadrant 09/02/2010 MELISSA DAHL MD 611.7 1 Breast Pain 09/02/2010 MELISSA DAHL MD 787.3 Gas/bloating Pain 09/02/2010 MELISSA DAHL MD 789.0 3 Abdominal Pain Right Lower Quadrant 09/02/2010 ANAYELI ROOFING SUPERVISOR, DON S 611.71 Breast Pain 09/02/2010 ANAYELI ROOFING SUPERVISOR, DON S 787.3 Gas/bloating Pain 09/02/2010 ANAYELI PATN, DON S 789.03 Abdominal Pain Right Lower Quadrant 09/02/2010 NEISHA DDS, KACIE M 611.71 Breast Pain 09/02/2010 NEISHA DDS, KACIE M 787.3 Gas/bloating Pain 09/02/2010 NEISHA DDS, KACIE M 789.03 Abdominal Pain Right Lower Quadrant 09/02/2010 ANAYELI ROOFING SUPERVISOR, DON S 611.71 Breast Pain 09/02/2010 ANAYELI ROOFING SUPERVISOR, DON S 787.3 Gas/bloating Pain 09/02/2010 ANAYELI ROOFING SUPERVISOR, DON S 789.03 Abdominal Pain Right Lower Quadrant 09/02/2010 ANAYELI ROOFING SUPERVISOR, DON S 611.71 Breast Pain 09/02/2010 ANAYELI ROOFING SUPERVISOR, DON S 787.3 Gas/bloating Pain 09/02/2010 ANAYELI ROOFING SUPERVISOR, DON S 789.03 Abdominal Pain Right Lower Quadrant 09/02/2010 ANAYELI ROOFING SUPERVISOR, DON S 611.71 Breast Pain 09/02/2010 ANAYELI ROOFING SUPERVISOR, DON S 787.3 Gas/bloating Pain 09/02/2010 ANAYELI ROOFING SUPERVISOR, DON S 789.03 Abdominal Pain Right Lower Quadrant 09/02/2010 ANAYELI PATN, DON S 611.71 Breast Pain 09/02/2010 ANAYELI BARON, DON S 787.3 Gas/bloating Pain 09/02/2010 ANAYELI BARON, DON S 789.03 Abdominal Pain Right Lower Quadrant 09/02/2010 WHITE DDS, STALIN J 611.71 Breast Pain 09/02/2010 WHITE DDS, STALIN J 78 7.3 Gas/bloating Pain 09/02/2010 WHITE DDS, STALIN J 789.03 Abdominal Pain Right Lower Quadrant 09/02/2010 ANAYELI BARON, DON S 611.71 Breast Pain 09/02/2010 ANAYELI BARON, DON S 787.3 Gas/bloating Pain 09/02/2010 ANAYELI BARON, DON S 789.03 Abdominal Pain Right Lower Quadrant 11/10/2010 ANAYELI BARON, DON S 611.72 Breast Lump Or Mass 11/10/2010 ANAYELI BARON, DON S 799.22 Irritibility 11/10/2010 611.72 Dominique ast Lump Or Mass 11/10/2010 799.22 Irr itibility 11/10/2010 ANAYELI BARON, DON S 611.72 Breast Lump Or Mass 11/10/2010 ANAYELI BARON, DON S 799.22 Irritibility 11/10/2010 ANAYELI BARON, DON S 611.72 Breast Lump Or Mass 11/10/2010 ANAYELI BARON, DON S 799.22 Irritibility 11/10/2010 611.72 Dominique ast Lump Or Mass 11/10/2010 799.22 Irr itibility 11/10/2010 611.72 Dominique ast Lump Or Mass 11/10/2010 799.22 Irr itibility 11/10/2010 MELISSA DAHL MD 611.7 2 Breast Lump Or Mass 11/10/2010 MELISSA DAHL MD 799.2 2 Irritibility 11/10/2010 ANAYELI BARON, DON S 611.72 Breast Lump Or Mass 11/10/2010 DOMINIQUE GUADALUPE APRNNDA S 799.22 Irritibility 11/10/2010 NEISHA DDS, KACIE M 611.72 Breast Lump Or Mass 11/10/2010 NEISHA DDS, KACIE M 799.22 Irritibility 11/10/2010 ANAYELI ROOFING SUPERVISOR, DON S 611.72 Breast Lump Or Mass 11/10/2010 ANAYELI ROOFING SUPERVISOR, DON S 799.22 Irritibility 11/10/2010 ANAYELI BARON, DON S 611.72 Breast Lump Or Mass 11/10/2010 ANAYELI ROOFING SUPERVISOR, DON S 799.22 Irritibility 11/10/2010 ANAYELI ROOFING SUPERVISOR, DON S 611.72 Breast Lump Or Mass 11/10/2010 ANAYELI BARON, DON S 799.22 Irritibility 11/10/2010 ANAYELI ROOFING SUPERVISOR, DON S 611.72 Breast Lump Or Mass 11/10/2010 ANAYELI BARON, DON S 799.22 Irritibility 11/10/2010 WHITE DDS, STALIN J 611.72 Breast Lump Or Mass 11/10/2010 WHITE DDS, STALIN J 799.22 Irritibility 11/10/2010 ANAYELI BARON, DON S 611.72 Breast Lump Or Mass 11/10/2010 ANAYELI BARON, DON S 799.22 Irritibility 01/11/2011 Ot 300.00 01/11/2011 Ot 784.0 01/11/2011 Ot 847.0 01/11/2011 Ot 920 01/11/2011 Ot 959.09 01/11/2011 Ot E000.8 01/11/2011 Ot E849.0 01/11/2011 Ot E917.9 03/01/2011 DOMINIQUE GUADALUPE APRNNDA S 719.41 Shoulder Joint Pain 03/01/2011 DOMINIQUE GUADALUPE APRNNDA S 729.5 Arm Pain 03/01/2011 719.41 Seema ulder Joint Pain 03/01/2011 729.5 Arm Pain 03/01/2011 DOMINIQUE GUADALUPE APRNNDA S 719.41 Shoulder Joint Pain 03/01/2011 ANAYELI ROOFING SUPERVISOR, DON S 729.5 Arm Pain 03/01/2011 ANAYELI ROOFING SUPERVISOR, DON S 719.41 Shoulder Joint Pain 03/01/2011 ANAYELI ROOFING SUPERVISOR, DON S 729.5 Arm Pain 03/01/2011 719.41 Seema ulder Joint Pain 03/01/2011 729.5 Arm Pain 03/01/2011 719.41 Seema ulder Joint Pain 03/01/2011 729.5 Arm Pain 03/01/2011 MELISSA DAHL MD 719.4 1 Shoulder Joint Pain 03/01/2011 MELISSA DAHL MD 729.5 Arm Pain 03/01/2011 ANAYELI ROOFING SUPERVISOR, DON S 719.41 Shoulder Joint Pain 03/01/2011 ANAYELI ROOFING SUPERVISOR, DON S 729.5 Arm Pain 03/01/2011 NEISHA DDS, KACIE Fontanez 719.41 Shoulder Joint Pain 03/01/2011 NEISHA DDS, KACIE M 729.5 Arm Pain 03/01/2011 ANAYELI ROOFING SUPERVISOR, DON S 719.41 Shoulder Joint Pain 03/01/2011 ANAYELI ROOFING SUPERVISOR, DON S 729.5 Arm Pain 03/01/2011 ANAYELI ROOFING SUPERVISOR, DON S 719.41 Shoulder Joint Pain 03/01/2011 ANAYELI ROOFING SUPERVISOR, DON S 729.5 Arm Pain 03/01/2011 ANAYELI ROOFING SUPERVISOR, DON S 719.41 Shoulder Joint Pain 03/01/2011 ANAYELI ROOFING SUPERVISOR, DON S 729.5 Arm Pain 03/01/2011 ANAYELI ROOFING SUPERVISOR, DON S 719.41 Shoulder Joint Pain 03/01/2011 ANAYELI ROOFING SUPERVISOR, DON S 729.5 Arm Pain 03/01/2011 WHITE DDS, STALIN J 719.41 Shoulder Joint Pain 03/01/2011 WHITE DDS, SATLIN J 72 9.5 Arm Pain 03/01/2011 ANAYELI ROOFING SUPERVISOR, DON S 719.41 Shoulder Joint Pain 03/01/2011 ANAYELI ROOFING SUPERVISOR, DON S 729.5 Arm Pain 08/09/2011 ANAYELI ROOFING SUPERVISOR, DON S 381.81 Eustachian Tube Dysfunction 08/09/2011 DOMINIQUE GUADALUPE APRNNDA S 728.85 MUSCLE SPASM 08/09/2011 DOMINIQUE GUADALUPE APRNNDA S 783.1 Weight Gain Abnormal 08/09/2011 381.81 Eus tachian Tube Dysfunction 08/09/2011 728.85 MUS SHALA SPASM 08/09/2011 783.1 Weig ht Gain Abnormal 08/09/2011 DOMINIQUE GUADALUPE APRNNDA S 381.81 Eustachian Tube Dysfunction 08/09/2011 DOMINIQUE GUADALUPE APRNNDA S 728.85 MUSCLE SPASM 08/09/2011 DOMINIQUE GUADALUPE APRNNDA S 783.1 Weight Gain Abnormal 08/09/2011 DOMINIQUE GUADALUPE APRNNDA S 381.81 Eustachian Tube Dysfunction 08/09/2011 DOMINIQUE GUADALUPE APRNNDA S 728.85 MUSCLE SPASM 08/09/2011 DOMINIQUE GUADALUPE APRNNDA S 783.1 Weight Gain Abnormal 08/09/2011 381.81 Eus tachian Tube Dysfunction 08/09/2011 728.85 MUS SHALA SPASM 08/09/2011 783.1 Weig ht Gain Abnormal 08/09/2011 381.81 Eus tachian Tube Dysfunction 08/09/2011 728.85 MUS SHALA SPASM 08/09/2011 783.1 Weig ht Gain Abnormal 08/09/2011 MELISSA DAHL MD 381.8 1 Eustachian Tube Dysfunction 08/09/2011 MELISSA DAHL MD 728.8 5 MUSCLE SPASM 08/09/2011 MELISSA DAHL MD 783.1 Weight Gain Abnormal 08/09/2011 DOMINIQUE GUADALUPE APRNNDA S 381.81 Eustachian Tube Dysfunction 08/09/2011 DOMINIQUE GUADALUPE APRNNDA S 728.85 MUSCLE SPASM 08/09/2011 DOMINIQUE GUADALUPE APRNNDA S 783.1 Weight Gain Abnormal 08/09/2011 KACIE DRIVER DDS 381.81 Eustachian Tube Dysfunction 08/09/2011 KACIE DRIVER DDS 728.85 MUSCLE SPASM 08/09/2011 KACIE DRIVER DDS 783.1 Weight Gain Abnormal 08/09/2011 DOMINIQUE GUADALUPE APRNNDA S 381.81 Eustachian Tube Dysfunction 08/09/2011 DOMINIQUE GUADALUPE APRNNDA S 728.85 MUSCLE SPASM 08/09/2011 DOMINIQUE GUADALUPE APRNNDA S 783.1 Weight Gain Abnormal 08/09/2011 DOMINIQUE GUADALUPE APRNNDA S 381.81 Eustachian Tube Dysfunction 08/09/2011 DOMINIQUE GUADALUPE APRNNDA S 728.85 MUSCLE SPASM 08/09/2011 DOMINIQUE GUADALUPE APRNNDA S 783.1 Weight Gain Abnormal 08/09/2011 DOMINIQUE GUADALUPE APRNNDA S 381.81 Eustachian Tube Dysfunction 08/09/2011 DOMINIQUE GUADALUPE APRNNDA S 728.85 MUSCLE SPASM 08/09/2011 DOMINIQUE GUADALUPE APRNNDA S 783.1 Weight Gain Abnormal 08/09/2011 DOMINIQUE GUADALUPE APRNNDA S 381.81 Eustachian Tube Dysfunction 08/09/2011 DOMINIQUE GUADALUPE APRNNDA S 728.85 MUSCLE SPASM 08/09/2011 DOMINIQUE GUADALUPE APRNNDA S 783.1 Weight Gain Abnormal 08/09/2011 WHITE DDS, STALIN J 381.81 Eustachian Tube Dysfunction 08/09/2011 WHITE DDS, STALIN J 728.85 MUSCLE SPASM 08/09/2011 WHITE DDS, STALIN J 78 3.1 Weight Gain Abnormal 08/09/2011 DOMINIQUE GUADALUPE APRNNDA S 381.81 Eustachian Tube Dysfunction 08/09/2011 DOMINIQUE GUADALUPE APRNNDA S 728.85 MUSCLE SPASM 08/09/2011 SAMANTHA GUADALUPE APRNA S 783.1 Weight Gain Abnormal 11/02/2011 SAMANTHA GUADALUPE APRNA S V76.2 Cervical Cancer Screening (pap Smear) 11/02/2011 V76.2 Cerv ical Cancer Screening (pap Smear) 11/02/2011 DON GUADALUPE APRN S V76.2 Cervical Cancer Screening (pap Smear) 11/02/2011 SAMANTHA GUADALUPE APRNA S V76.2 Cervical Cancer Screening (pap Smear) 11/02/2011 V76.2 Cerv ical Cancer Screening (pap Smear) 11/02/2011 V76.2 Cerv ical Cancer Screening (pap Smear) 11/02/2011 MELISSA DAHL MD V76.2 Cervical Cancer Screening (pap Smear) 11/02/2011 DON GUADALUPE APRN S V76.2 Cervical Cancer Screening (pap Smear) 11/02/2011 KACIE DRIVER DDS V76.2 Cervical Cancer Screening (pap Smear) 11/02/2011 SAMANTHA GUADALUPE APRNA S V76.2 Cervical Cancer Screening (pap Smear) 11/02/2011 SAMANTHA GUADALUPE APRNA S V76.2 Cervical Cancer Screening (pap Smear) 11/02/2011 DOMINIQUE GUADALUPE APRNNDA S V76.2 Cervical Cancer Screening (pap Smear) 11/02/2011 SAMANTHA GUADALUPE APRNA S V76.2 Cervical Cancer Screening (pap Smear) 11/02/2011 STALIN PUGA DDS V7 6.2 Cervical Cancer Screening (pap Smear) 11/02/2011 DOMINIQUE GUADALUPE APRNNDA S V76.2 Cervical Cancer Screening (pap Smear) 11/02/[address] BITE HIP LEG 11/02/2011 Ot 959.5 FING ER INJURY NOS 11/02/2011 Ot E000.8 OTH ER EXTERNAL CAUSE STATUS 11/02/2011 Ot E849.0 ACC IDENT IN HOME 11/02/2011 Ot E906.4 NON VENOM ARTHROPOD BITE 01/18/2012 SAMANTHA GUADALUPE APRNA S 724.2 lower back pain 01/18/2012 724.2 lowe r back pain 01/18/2012 SAMANTHA GUADALUPE APRNA S 724.2 lower back pain 01/18/2012 DOMINIQUE GUADALUPE APRNNDA S 724.2 lower back pain 01/18/2012 724.2 lowe r back pain 01/18/2012 724.2 lowe r back pain 01/18/2012 MELISSA DAHL MD 724.2 lower back pain 01/18/2012 SAMANTHA GUADALUPE APRNA S 724.2 lower back pain 01/18/2012 KACIE DRIVER DDS 724.2 lower back pain 01/18/2012 SAMANTHA GUADALUPE APRNA S 724.2 lower back pain 01/18/2012 ANAYELI ROOFING SUPERVISOR, DON S 724.2 lower back pain 01/18/2012 ANAYELI BARON DON S 724.2 lower back pain 01/18/2012 DOMINIQUE GUADALUPE APRNNDA S 724.2 lower back pain 01/18/2012 WHITE DDS, STALIN J 72 4.2 lower back pain 01/18/2012 ANAYELI BARON DON S 724.2 lower back pain 02/01/2012 DOMINIQUE GUADALUPE APRNNDA S V58.69 high risk medication 02/01/2012 V58.69 hig h risk medication 02/01/2012 DOMINIQUE GUADALUPE APRNNDA S V58.69 high risk medication 02/01/2012 DOMINIQUE GUADALUPE APRNNDA S V58.69 high risk medication 02/01/2012 V58.69 hig h risk medication 02/01/2012 V58.69 hig h risk medication 02/01/2012 MELISSA DAHL MD V58.6 9 high risk medication 02/01/2012 DOMINIQUE GUADALUPE APRNNDA S V58.69 high risk medication 02/01/2012 KACIE DRIVER DDS V58.69 high risk medication 02/01/2012 DOMINIQUE GUADALUPE APRNNDA S V58.69 high risk medication 02/01/2012 DOMINIQUE GUADALUPE APRNNDA S V58.69 high risk medication 02/01/2012 ANAYELI BARON DON S V58.69 high risk medication 02/01/2012 DOMINIQUE GUADALUPE APRNNDA S V58.69 high risk medication 02/01/2012 EDD DDS, STALIN Gordon V58.69 high risk medication 02/01/2012 DOMINIQUE GUADALUPE APRNNDA S V58.69 high risk medication 05/28/2012 DOMINIQUE GUADALUPE APRNNDA S 296.30 MAJOR DEPRESSIVE AFFECTIVE DISORDER RECU RRENT EPISODE UNSPECIFIED DEGREE 05/28/2012 DOMINIQUE GUADALUPE APRNNDA S V04.81 Flu Dx (3 Yrs And Above, Im) 05/28/2012 DOMINIQUE GUADALUPE APRNNDA S V18.0 FAMILY HISTORY OF DIABETES MELLITUS 05/28/2012 296.30 MILAGROS OR DEPRESSIVE AFFECTIVE DISORDER RECURRENT EPISODE UNSPECIFIED DEGREE 05/28/2012 V04.81 Flu Dx (3 Yrs And Above, Im) 05/28/2012 V18.0 FAMI LY HISTORY OF DIABETES MELLITUS 05/28/2012 SAMANTHA GUADALUPE APRNA S 296.30 MAJOR DEPRESSIVE AFFECTIVE DISORDER RECU RRENT EPISODE UNSPECIFIED DEGREE 05/28/2012 SAMANTHA GUADALUPE APRNA S V04.81 Flu Dx (3 Yrs And Above, Im) 05/28/2012 SAMANTHA GUADALUPE APRNA S V18.0 FAMILY HISTORY OF DIABETES MELLITUS 05/28/2012 DOMINIQUE GUADALUPE APRNNDA S 296.30 MAJOR DEPRESSIVE AFFECTIVE DISORDER RECU RRENT EPISODE UNSPECIFIED DEGREE 05/28/2012 SAMANTHA GUADALUPE APRNA S V04.81 Flu Dx (3 Yrs And Above, Im) 05/28/2012 SAMANTHA GUADALUPE APRNA S V18.0 FAMILY HISTORY OF DIABETES MELLITUS 05/28/2012 296.30 MILAGROS OR DEPRESSIVE AFFECTIVE DISORDER RECURRENT EPISODE UNSPECIFIED DEGREE 05/28/2012 V04.81 Flu Dx (3 Yrs And Above, Im) 05/28/2012 V18.0 FAMI LY HISTORY OF DIABETES MELLITUS 05/28/2012 296.30 MILAGROS OR DEPRESSIVE AFFECTIVE DISORDER RECURRENT EPISODE UNSPECIFIED DEGREE 05/28/2012 V04.81 Flu Dx (3 Yrs And Above, Im) 05/28/2012 V18.0 FAMI LY HISTORY OF DIABETES MELLITUS 05/28/2012 MELISSA DAHL MD 296.3 0 MAJOR DEPRESSIVE AFFECTIVE DISORDER RECURRENT EPISODE UNSPECIFIED DEGREE 05/28/2012 MELISSA DAHL MD V04.8 1 Flu Dx (3 Yrs And Above, Im) 05/28/2012 MELISSA DAHL MD V18.0 FAMILY HISTORY OF DIABETES MELLITUS 05/28/2012 DOMINIQUE GUADALUPE APRNNDA S 296.30 MAJOR DEPRESSIVE AFFECTIVE DISORDER RECU RRENT EPISODE UNSPECIFIED DEGREE 05/28/2012 SAMANTHA GUADALUPE APRNA S V04.81 Flu Dx (3 Yrs And Above, Im) 05/28/2012 SAMANTHA GUADALUPE APRNA S V18.0 FAMILY HISTORY OF DIABETES MELLITUS 05/28/2012 KACIE DRIVER DDS 296.30 MAJOR DEPRESSIVE AFFECTIVE DISORDER RECU RRENT EPISODE UNSPECIFIED DEGREE 05/28/2012 KACIE DRIVER DDS V04.81 Flu Dx (3 Yrs And Above, Im) 05/28/2012 NEISHA DDS, KACIE M V18.0 FAMILY HISTORY OF DIABETES MELLITUS 05/28/2012 ANAYELI BARON DON S 296.30 MAJOR DEPRESSIVE AFFECTIVE DISORDER RECU RRENT EPISODE UNSPECIFIED DEGREE 05/28/2012 ANAYELI ROOFING SUPERVISORDOMINIQUEDON S V04.81 Flu Dx (3 Yrs And Above, Im) 05/28/2012 DOMINIQUE GUADALUPE APRNNDA S V18.0 FAMILY HISTORY OF DIABETES MELLITUS 05/28/2012 ANAYELI TOD DON S 296.30 MAJOR DEPRESSIVE AFFECTIVE DISORDER RECU RRENT EPISODE UNSPECIFIED DEGREE 05/28/2012 ANAYELI TOD DON S V04.81 Flu Dx (3 Yrs And Above, Im) 05/28/2012 DOMINIQUE GUADALUPE APRNNDA S V18.0 FAMILY HISTORY OF DIABETES MELLITUS 05/28/2012 ANAYELI BARON DON S 296.30 MAJOR DEPRESSIVE AFFECTIVE DISORDER RECU RRENT EPISODE UNSPECIFIED DEGREE 05/28/2012 DOMINIQUE GUADALUPE APRNNDA S V04.81 Flu Dx (3 Yrs And Above, Im) 05/28/2012 ANAYELI BARON DON S V18.0 FAMILY HISTORY OF DIABETES MELLITUS 05/28/2012 ANAYELI BARON DON S 296.30 MAJOR DEPRESSIVE AFFECTIVE DISORDER RECU RRENT EPISODE UNSPECIFIED DEGREE 05/28/2012 ANAYELI BARON DON S V04.81 Flu Dx (3 Yrs And Above, Im) 05/28/2012 DOMINIQUE GUADALUPE APRNNDA S V18.0 FAMILY HISTORY OF DIABETES MELLITUS 05/28/2012 WHITE DDS, STALIN J 296.30 MAJOR DEPRESSIVE AFFECTIVE DISORDER RECU RRENT EPISODE UNSPECIFIED DEGREE 05/28/2012 WHITE DDS, STALIN J V04.81 Flu Dx (3 Yrs And Above, Im) 05/28/2012 WHITE DDS, STALIN J V1 8.0 FAMILY HISTORY OF DIABETES MELLITUS 05/28/2012 ANAYELI BARON DON S 296.30 MAJOR DEPRESSIVE AFFECTIVE DISORDER RECU RRENT EPISODE UNSPECIFIED DEGREE 05/28/2012 DOMINIQUE GUADALUPE APRNNDA S V04.81 Flu Dx (3 Yrs And Above, Im) 05/28/2012 ANAYELI ROOFING SUPERVISOR, DON S V18.0 FAMILY HISTORY OF DIABETES MELLITUS 06/05/2012 ANAYELI ROOFING SUPERVISOR, DON S 999.52 Other Serum Reaction Due To Vaccination 06/05/2012 999.52 Oth er Serum Reaction Due To Vaccination 06/05/2012 ANAYELI ROOFING SUPERVISOR, DON S 999.52 Other Serum Reaction Due To Vaccination 06/05/2012 ANAYELI ROOFING SUPERVISOR, DON S 999.52 Other Serum Reaction Due To Vaccination 06/05/2012 999.52 Oth er Serum Reaction Due To Vaccination 06/05/2012 999.52 Oth er Serum Reaction Due To Vaccination 06/05/2012 MELISSA DAHL MD 999.5 2 Other Serum Reaction Due To Vaccination 06/05/2012 ANAYELI ROOFING SUPERVISOR, DON S 999.52 Other Serum Reaction Due To Vaccination 06/05/2012 KACIE DRIVER DDS 999.52 Other Serum Reaction Due To Vaccination 06/05/2012 ANAYELI ROOFING SUPERVISOR, DON S 999.52 Other Serum Reaction Due To Vaccination 06/05/2012 ANAYELI ROOFING SUPERVISOR, DON S 999.52 Other Serum Reaction Due To Vaccination 06/05/2012 ANAYELI ROOFING SUPERVISOR, DON S 999.52 Other Serum Reaction Due To Vaccination 06/05/2012 ANAYELI ROOFING SUPERVISOR, DON S 999.52 Other Serum Reaction Due To Vaccination 06/05/2012 STALIN PUGA DDS 999.52 Other Serum Reaction Due To Vaccination 06/05/2012 ANAYELI ROOFING SUPERVISOR, DON S 999.52 Other Serum Reaction Due To Vaccination 06/27/2012 ANAYELI ROOFING SUPERVISOR, DON S 719.47 PAIN IN JOINT INVOLVING ANKLE AND FOOT 06/27/2012 719.47 MEENU N IN JOINT INVOLVING ANKLE AND FOOT 06/27/2012 ANAYELI ROOFING SUPERVISOR, DON S 719.47 PAIN IN JOINT INVOLVING ANKLE AND FOOT 06/27/2012 ANAYELI ROOFING SUPERVISOR, DON S 719.47 PAIN IN JOINT INVOLVING ANKLE AND FOOT 06/27/2012 719.47 MEENU N IN JOINT INVOLVING ANKLE AND FOOT 06/27/2012 719.47 MEENU N IN JOINT INVOLVING ANKLE AND FOOT 06/27/2012 MELISSA DAHL MD 719.4 7 PAIN IN JOINT INVOLVING ANKLE AND FOOT 06/27/2012 ANAYELI ROOFING SUPERVISOR, DON S 719.47 PAIN IN JOINT INVOLVING ANKLE AND FOOT 06/27/2012 KACIE DRIVER DDS 719.47 PAIN IN JOINT INVOLVING ANKLE AND FOOT 06/27/2012 ANAYELI ROOFING SUPERVISOR, DON S 719.47 PAIN IN JOINT INVOLVING ANKLE AND FOOT 06/27/2012 ANAYELI ROOFING SUPERVISOR, DON S 719.47 PAIN IN JOINT INVOLVING ANKLE AND FOOT 06/27/2012 ANAYELI ROOFING SUPERVISOR, DON S 719.47 PAIN IN JOINT INVOLVING ANKLE AND FOOT 06/27/2012 ANAYELI ROOFING SUPERVISOR, DON S 719.47 PAIN IN JOINT INVOLVING ANKLE AND FOOT 06/27/2012 STALIN PUGA DDS 719.47 PAIN IN JOINT INVOLVING ANKLE AND FOOT 06/27/2012 ANAYELI ROOFING SUPERVISOR, DON S 719.47 PAIN IN JOINT INVOLVING ANKLE AND FOOT 07/25/2012 ANAYELI ROOFING SUPERVISOR, DON S 729.5 PAIN IN LIMB 07/25/2012 729.5 PAIN IN LIMB 07/25/2012 ANAYELI ROOFING SUPERVISOR, DON S 729.5 PAIN IN LIMB 07/25/2012 ANAYELI ROOFING SUPERVISOR, DON S 729.5 PAIN IN LIMB 07/25/2012 729.5 PAIN IN LIMB 07/25/2012 729.5 PAIN IN LIMB 07/25/2012 MELISSA DAHL MD 729.5 PAIN IN LIMB 07/25/2012 ANAYELI ROOFING SUPERVISOR, DON S 729.5 PAIN IN LIMB 07/25/2012 KACIE DRIVER DDS 729.5 PAIN IN LIMB 07/25/2012 ANAYELI ROOFING SUPERVISOR, DON S 729.5 PAIN IN LIMB 07/25/2012 ANAYELI ROOFING SUPERVISOR, DON S 729.5 PAIN IN LIMB 07/25/2012 ANAYELI ROOFING SUPERVISOR, DON S 729.5 PAIN IN LIMB 07/25/2012 ANAYELI ROOFING SUPERVISOR, DON S 729.5 PAIN IN LIMB 07/25/2012 STALIN PUGA DDS 72 9.5 PAIN IN LIMB 09/17/2012 783.1 ABNO RMAL WEIGHT GAIN 09/17/2012 ANAYELI ROOFING SUPERVISOR, DON S 783.1 ABNORMAL WEIGHT GAIN 09/17/2012 ANAYELI ROOFING SUPERVISOR, DON S 783.1 ABNORMAL WEIGHT GAIN 09/17/2012 783.1 ABNO RMAL WEIGHT GAIN 09/17/2012 783.1 ABNO RMAL WEIGHT GAIN 09/17/2012 MELISSA DAHL MD 783.1 ABNORMAL WEIGHT GAIN 09/17/2012 ANAYELI BARON, DON S 783.1 ABNORMAL WEIGHT GAIN 09/17/2012 KACIE DRIVER DDS 783.1 ABNORMAL WEIGHT GAIN 09/17/2012 ANAYELI ROOFING SUPERVISOR, DON S 783.1 ABNORMAL WEIGHT GAIN 09/17/2012 ANAYELI ROOFING SUPERVISOR, DON S 783.1 ABNORMAL WEIGHT GAIN 09/17/2012 ANAYELI ROOFING SUPERVISOR, DON S 783.1 ABNORMAL WEIGHT GAIN 09/17/2012 ANAYELI ROOFING SUPERVISOR, DON S 783.1 ABNORMAL WEIGHT GAIN 09/17/2012 STALIN PUGA DDS 78 3.1 ABNORMAL WEIGHT GAIN 10/30/2012 ANAYELI BARON, DON [...] V16.3 FAM HX CANCER, BREAST 10/30/2012 ANAYELI ROOFING SUPERVISOR, DON S V16.3 FAM HX CANCER, BREAST 10/30/2012 ANAYELI BARON, DON S V16.3 FAM HX CANCER, BREAST 10/30/2012 STALIN PUGA DDS V1 6.3 FAM HX CANCER, BREAST 02/19/2013 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 02/19/2013 309.0 ADJU STMENT DISORDER WITH DEPRESSED MOOD 02/19/2013 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 02/19/2013 309.0 ADJU STMENT DISORDER WITH DEPRESSED MOOD 02/19/2013 MELISSA DAHL MD 296.3 3 MO 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 02/19/2013 MELISSA DAHL MD 309.0 ADJUSTMENT DISORDER WITH DEPRESSED MOOD 02/19/2013 ANAYELI BARON DON S 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 02/19/2013 ANAYELI BARON DON S 309.0 ADJUSTMENT DISORDER WITH DEPRESSED MOOD 02/19/2013 NEISHA NEGRONS, KACIE M 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 02/19/2013 NEISHA NEGRONS, KACIE M 309.0 ADJUSTMENT DISORDER WITH DEPRESSED MOOD 02/19/2013 ANAYELI BARON DON S 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 02/19/2013 ANAYELI BARON, DON S 309.0 ADJUSTMENT DISORDER WITH DEPRESSED MOOD 02/19/2013 DOMINIQUE GUADALUPE APRNNDA S 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 02/19/2013 ANAYELI BARON DON S 309.0 ADJUSTMENT DISORDER WITH DEPRESSED MOOD 02/19/2013 ANAYELI BARON, DON S 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 02/19/2013 ANAYELI BARON DON S 309.0 ADJUSTMENT DISORDER WITH DEPRESSED MOOD 02/19/2013 ANAYELI BARON, DON S 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 02/19/2013 ANAYELI BARON DON S 309.0 ADJUSTMENT DISORDER WITH DEPRESSED MOOD 02/19/2013 STALIN PUGA DDS J 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 02/19/2013 WHITE JAMILSSTALIN J 30 9.0 ADJUSTMENT DISORDER WITH DEPRESSED MOOD 02/22/2013 599.70 HEM ATURIA 02/22/2013 724.4 THOR ACIC OR LUMBOSACRAL NEURITIS OR RADICULITIS UNSPECIFIED 02/22/2013 599.70 HEM ATURIA 02/22/2013 724.4 THOR ACIC OR LUMBOSACRAL NEURITIS OR RADICULITIS UNSPECIFIED 02/22/2013 MELISSA DAHL MD 599.7 0 HEMATURIA 02/22/2013 MELISSA DAHL MD 724.4 THORACIC OR LUMBOSACRAL NEURITIS OR RADICULITIS UNSPECIFIED 02/22/2013 ANAYELI ROOFING SUPERVISOR, DON S 599.70 HEMATURIA 02/22/2013 ANAYELI PATN, DON S 724.4 THORACIC OR LUMBOSACRAL NEURITIS OR RADICULITIS UNSPEC IFIED 02/22/2013 NEISHA SANCHEZ, KACIE Fontanez 599.70 HEMATURIA 02/22/2013 NEISHA SANCHEZ, KACIE Fontanez 724.4 THORACIC OR LUMBOSACRAL NEURITIS OR RADICULITIS UNSPEC IFIED 02/22/2013 ANAYELI PATN, DON S 599.70 HEMATURIA 02/22/2013 ANAYELI ROOFING SUPERVISOR, DON S 724.4 THORACIC OR LUMBOSACRAL NEURITIS OR RADICULITIS UNSPEC IFIED 02/22/2013 ANAYELI ROOFING SUPERVISOR, DON S 599.70 HEMATURIA 02/22/2013 ANAYELI ROOFING SUPERVISOR, DON S 724.4 THORACIC OR LUMBOSACRAL NEURITIS OR RADICULITIS UNSPEC IFIED 02/22/2013 ANAYELI PATN, DON S 599.70 HEMATURIA 02/22/2013 ANAYELI ROOFING SUPERVISOR, DON S 724.4 THORACIC OR LUMBOSACRAL NEURITIS OR RADICULITIS UNSPEC IFIED 02/22/2013 ANAYELI ROOFING SUPERVISOR, DON S 599.70 HEMATURIA 02/22/2013 ANAYELI ROOFING SUPERVISOR, DON S 724.4 THORACIC OR LUMBOSACRAL NEURITIS OR RADICULITIS UNSPEC IFIED 02/22/2013 WHITE JAMILS, STALIN J 599.70 HEMATURIA 02/22/2013 WHITE JAMILS, STALIN Gordon 72 4.4 THORACIC OR LUMBOSACRAL NEURITIS OR RADICULITIS UNSPECIFIED 04/01/2013 NERIS BOSS ROOFING SUPERVISOR Ot 338.29 OTHER CHRONIC PAIN 04/01/2013 NERIS BOSS APRN Ot 724 .5 BACKACHE NOS 04/03/2013 724.5 BACK ACHE UNSPECIFIED 04/03/2013 MELISSA DAHL MD 724.5 BACKACHE UNSPECIFIED 04/03/2013 DOMINIQUE GUADALUPE APRNNDA S 724.5 BACKACHE UNSPECIFIED 04/03/2013 NEISHA DDS, KACIE M 724.5 BACKACHE UNSPECIFIED 04/03/2013 ANAYELI ROOFING SUPERVISOR, DON S 724.5 BACKACHE UNSPECIFIED 04/03/2013 ANAYELI ROOFING SUPERVISOR, DON S 724.5 BACKACHE UNSPECIFIED 04/03/2013 ANAYELI ROOFING SUPERVISOR, DON S 724.5 BACKACHE UNSPECIFIED 04/03/2013 ANAYELI ROOFING SUPERVISOR, DON S 724.5 BACKACHE UNSPECIFIED 04/03/2013 EDD DDS, STALIN J 72 4.5 BACKACHE UNSPECIFIED 06/18/2013 DON GUADALUPE MONORAIL HOOKER Ot 724.4 LUMBOSACRAL NEURITIS NOS 06/18/2013 DON GUADALUPE MONORAIL HOOKER Ot V57.1 PHYSICAL THERAPY NEC 09/18/2013 ANAYELI PATN, DON S 272.4 HYPERLIPIDEMIA 09/18/2013 ANAYELI ROOFING SUPERVISOR, DON S 719.41 PAIN- SHOULDER 09/18/2013 ANAYELI PATN, DON S 780.79 fatigue 09/18/2013 ANAYELI ROOFING SUPERVISOR, DON S 784.0 HEADACHE 09/18/2013 ANAYELI ROOFING SUPERVISOR, DON S 787.91 DIARRHEA 09/18/2013 ANAYELI ROOFING SUPERVISOR, DON S 272.4 HYPERLIPIDEMIA 09/18/2013 ANAYELI ROOFING SUPERVISOR, DON S 719.41 PAIN- SHOULDER 09/18/2013 ANAYELI ROOFING SUPERVISOR, DON S 780.79 fatigue 09/18/2013 ANAYELI ROOFING SUPERVISOR, DON S 784.0 HEADACHE 09/18/2013 ANAYELI ROOFING SUPERVISOR, DON S 787.91 DIARRHEA 09/18/2013 ANAYELI ROOFING SUPERVISOR, DON S 272.4 HYPERLIPIDEMIA 09/18/2013 ANAYELI ROOFING SUPERVISOR, DON S 719.41 PAIN- SHOULDER 09/18/2013 ANAYELI ROOFING SUPERVISOR, DON S 780.79 fatigue 09/18/2013 ANAYELI ROOFING SUPERVISOR, DON S 784.0 HEADACHE 09/18/2013 ANAYELI ROOFING SUPERVISOR, DON S 787.91 DIARRHEA 09/18/2013 ANAYELI ROOFING SUPERVISOR, DON S 272.4 HYPERLIPIDEMIA 09/18/2013 ANAYELI ROOFING SUPERVISOR, DON S 719.41 PAIN- SHOULDER 09/18/2013 SAMANTHA GUADALUPE APRNA S 780.79 fatigue 09/18/2013 DON GUADALUPE APRN S 784.0 HEADACHE 09/18/2013 DOMINIQUE GUADALUPE APRNNDA S 787.91 DIARRHEA 09/18/2013 WHITE DDS, STALIN J 27 2.4 HYPERLIPIDEMIA 09/18/2013 WHITE DDS, STALIN J 719.41 PAIN- SHOULDER 09/18/2013 WHITE DDS, STALIN J 780.79 fatigue 09/18/2013 WHITE DDS, STALIN J 78 4.0 HEADACHE 09/18/2013 WHITE DDS, STALIN J 787.91 [...] Ot V76.12 06/26/2014 SUHAS HERNANDEZ MD Ot 788 .1 06/26/2014 SUHAS HERNANDEZ MD Ot 788.41 06/28/2014 SUHAS HERNANDEZ MD Ot 784 .0 07/10/2014 SUHAS HERNANDEZ MD Ot 784 .0 09/01/2014 Ot 727.61 09/01/2014 Ot 722.4 09/01/2014 [...] Ot V76.12 09/01/2014 SUHAS HERNANDEZ MD Ot 788 .1 09/01/2014 SUHAS HERNANDEZ MD Ot 788.41 09/01/2014 SUHAS HERNANDEZ MD Ot 784 .0 09/01/2014 CINDY DEY MD Ot 278. 00 09/01/2014 AXEL DEY MDHAR J Ot 305. 1 09/01/2014 YISSEL MARSHALL, CINDY Gordon Ot 780. 79 09/01/2014 YISSEL MARSHALL, CINDY Gordon Ot 786. 50 09/02/2014 Ot 727.61 09/02/2014 Ot 722.4 09/02/2014 [...] Ot V76.12 09/02/2014 SUHAS HERNANDEZ MD Ot 788 .1 09/02/2014 SUHAS HERNANDEZ MD Ot 788.41 09/02/2014 SUHAS HERNANDEZ MD Ot 784 .0 09/02/2014 YISSEL MARSHALL, CINDY Gordon Ot 278. 00 09/02/2014 YISSEL MARSHALL, CINDY Gordon Ot 305. 1 09/02/2014 YISSEL MARSHALL, CINDY Gordon Ot 780. 79 09/02/2014 YISSEL MARSHALL, CINDY Gordon Ot 786. 50 09/11/2014 YISSEL MARSHALL, CINDY Gordon Ot 278. 00 09/11/2014 CINDY DEY MD Ot 305. 1 09/11/2014 YISSEL MARSHALL, CINDY Gordon Ot 780. 79 09/11/2014 YISSEL MARSHALL, CINDY Gordon Ot 786. 50 09/17/2014 CINDY DEY MD Ot 278. 00 09/17/2014 YISSEL MARSHALL, CINDY Gordon Ot 305. 1 09/17/2014 CINDY DEY MD Ot 780. 79 09/17/2014 CINDY DEY MD Ot 786. 50 09/30/2014 YISSEL MARSHALL, CINDY Gordon Ot 278. 00 09/30/2014 CINDY DEY MD Ot 305. 1 09/30/2014 CINDY DEY MD Ot 780. 79 09/30/2014 CINDY DEY MD Ot 786. 50 03/03/2015 Ot 793.80 03/03/2015 Ot V16.3 03/03/2015 [...] Ot V76.12 03/03/2015 SUHAS HERNANDEZ MD Ot 788 .1 03/03/2015 SUHAS HERNANDEZ MD Ot 788.41 03/03/2015 SUHAS HERNANDEZ MD Ot 784 .0 03/03/2015 CINDY DEY MD Ot 278. 00 03/03/2015 CINDY DEY MD Ot 305. 1 03/03/2015 CINDY DEY MD Ot 780. 79 03/03/2015 CINDY DEY MD Ot 786. 50 03/03/2015 CINDY DEY MD Ot 278. 00 03/03/2015 YISSEL MARSHALL, CINDY Gordon Ot 305. 1 03/03/2015 YISSEL MARSHALL, CINDY Gordon Ot 780. 79 03/03/2015 YISSEL MARSHALL, CINDY Gordon Ot 786. 50 03/03/2015 YISSEL MARSHALL, CINDY Gordon Ot 278. 00 03/03/2015 YISSEL MARSHALL, CINDY Gordon Ot 305. 1 03/03/2015 YISSEL MARSHALL, CINDY Gordon Ot 780. 79 03/03/2015 YISSEL MARSHALL, CINDY Gordon Ot 786. 50 03/04/2015 EMMY GREEN DO K Ot 592.1 CALCULUS OF URETER 03/04/2015 EMMY GREEN DO K Ot 599.70 HEMATURIA, UNSPECIFIED 04/06/2015 OPHELIA MARSHALL, KALPANA Nassar Ot 592.9 04/14/2015 DHEERAJ MARSHALL, FIGUEROA Craig Ot 724 .2 04/14/2015 OPHELIA MARSHALL, KALPANA Nassar Ot 592.0 05/28/2015 Ot S60.456A 05/28/2015 Ot [...] 08/17/2015 DON GUADALUPE Ot V76.12 08/17/2015 SUHAS HERNANDEZ MD Ot 788 .1 08/17/2015 SUHAS HERNANDEZ MD Ot 788.41 08/17/2015 SUHAS HERNANDEZ MD Ot 784 .0 08/17/2015 YISSEL MARSHALL, CINDY Gordon Ot 278. 00 08/17/2015 YISSEL MARSHALL, CINDY Gordon Ot 305. 1 08/17/2015 YISSEL MARSHALL, CINDY Gordon Ot 780. 79 08/17/2015 YISSEL MARSHALL, CINDY Gordon Ot 786. 50 08/17/2015 YISSEL MARSHALL, CINDY Gordon Ot 278. 00 08/17/2015 YISSEL MARSHALL, CINDY Gordon Ot 305. 1 08/17/2015 YISSEL MARSHALL, CINDY Gordon Ot 780. 79 08/17/2015 YISSEL MARSHALL, CINDY Gordon Ot 786. 50 08/17/2015 YISSEL MARSHALL, CINDY Gordon Ot 278. 00 08/17/2015 YISSEL MARSHALL, CINDY Gordon Ot 305. 1 08/17/2015 YISSEL MARSHALL, CINDY Gordon Ot 780. 79 08/17/2015 YISSEL MARSHALL, CINDY Gordon Ot 786. 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 09/29/2015 HUNTER DO, WING C Ot N73.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 (POST 09/29/2015 HUNTER DO, WING C Ot R10.2 PELVIC AND PERINEAL PAIN 10/13/2015 HUNTER DO, WING C Ot N94.9 10/13/2015 HUNTER DO, WING C Ot R10.1 1 10/13/2015 HUNTER DO, WING C Ot D07.1 10/13/2015 HUNTER DO, WING C Ot R10.2 10/13/2015 HUNTER DO, WING C Ot Z01.8 12 10/13/2015 HUNTER DO, WING C Ot Z11.2 10/30/2015 HUNTER DO, WING C Ot D07.1 10/30/2015 HUNTER DO, WING C Ot N73.6 10/30/2015 HUNTER DO, WING C Ot R10.2 11/13/2015 SUHAS HERNANDEZ MD Ot R00 .2 11/13/2015 SUHAS HERNANDEZ MD Ot R35 .8 11/13/2015 SUHAS HERNANDEZ MD Ot R53.83 11/13/2015 SUHAS HERNANDEZ MD Ot R63 .1 11/13/2015 SUHAS HERNANDEZ MD Ot R63 .2 11/13/2015 SUHAS HERNANDEZ MD Ot R63 .5 11/13/2015 SUHAS HERNANDEZ MD Ot R73 .9 11/25/2015 SUHAS HERNANDEZ MD Ot R00 .2 PALPITATIONS 11/25/2015 SUHAS HERNANDEZ MD Ot R35 .8 OTHER POLYURIA 11/25/2015 SUHAS HERNANDEZ MD Ot R53.83 OTHER FATIGUE 11/25/2015 SUHAS HERNANDEZ MD Ot R63 .1 POLYDIPSIA 11/25/2015 SUHAS HERNANDEZ MD Ot R63 .2 POLYPHAGIA 11/25/2015 SUHAS HERNANDEZ MD Ot R63 .5 ABNORMAL WEIGHT GAIN 11/25/2015 SUHAS HERNANDEZ MD Ot R73 .9 HYPERGLYCEMIA, UNSPECIFIED 01/09/2016 SUHAS HERNANDEZ MD Ot S93.401A SPRAIN OF UNSPECIFIED LIGAMENT OF RIGHT 01/09/2016 SUHAS HERNANDEZ MD Ot X58.XXXA EXPOSURE TO OTHER SPECIFIED FACTORS, INI 01/09/2016 SUHAS HERNANDEZ MD Ot Y99 .8 OTHER EXTERNAL CAUSE STATUS 01/13/2016 SUHAS HERNANDEZ MD Ot S93.401A SPRAIN OF UNSPECIFIED LIGAMENT OF RIGHT 01/13/2016 SUHAS HERNANDEZ MD Ot X58.XXXA EXPOSURE TO OTHER SPECIFIED FACTORS, INI 01/13/2016 SUHAS HERNANDEZ MD Ot Y99 .8 OTHER EXTERNAL CAUSE STATUS 01/20/2016 JERO DAMON Ot E78.2 MIXED HYPERLIPIDEMIA 01/21/2016 SUHAS HERNANDEZ MD Ot S93.401A SPRAIN OF UNSPECIFIED LIGAMENT OF RIGHT 01/21/2016 SUHAS HERNANDEZ MD Ot X58.XXXA EXPOSURE TO OTHER SPECIFIED FACTORS, INI 01/21/2016 SUHAS HERNANDEZ MD Ot Y99 .8 OTHER EXTERNAL CAUSE STATUS 01/22/2016 CINDY DEY MD Ot E78. 2 MIXED HYPERLIPIDEMIA 01/22/2016 CINDY DEY MD Ot F41. 8 OTHER SPECIFIED ANXIETY DISORDERS 01/22/2016 CINDY DEY MD Ot R06. 89 OTHER ABNORMALITIES OF BREATHING 01/22/2016 CINDY DEY MD Ot R07. 9 CHEST PAIN, UNSPECIFIED 02/04/2016 CINDY DEY MD Ot E78. 2 MIXED HYPERLIPIDEMIA 02/04/2016 CINDY DEY MD Ot F41. 8 OTHER SPECIFIED ANXIETY DISORDERS 02/04/2016 CINDY DEY MD Ot R06. 89 OTHER ABNORMALITIES OF BREATHING 02/04/2016 CINDY DEY MD Ot R07. 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 00 OBESITY, NOS 07/15/2016 CINDY DEY MD Ot 305. 1 TOBACCO USE DISORDER 07/15/2016 CINDY DEY MD Ot 780. 79 OTH MALAISE FATIGUE 07/15/2016 CINDY DEY MD Ot 786. 50 CHEST PAIN NOS 07/15/2016 CINDY DEY MD Ot 278. 00 OBESITY, NOS 07/15/2016 CINDY DEY MD Ot 305. 1 TOBACCO USE DISORDER 07/15/2016 CINDY DEY MD Ot 780. 79 OTH MALAISE FATIGUE 07/15/2016 CINDY DEY MD Ot 786. 50 CHEST PAIN NOS 07/15/2016 CINDY DEY MD Ot 278. 00 OBESITY, NOS 07/15/2016 CINDY DEY MD Ot 305. 1 TOBACCO USE DISORDER 07/15/2016 CINDY DEY MD Ot 780. 79 OTH MALAISE FATIGUE 07/15/2016 CINDY DEY MD Ot 786. 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 07/15/2016 WING HUNTER DO Ot R10.2 PELVIC AND PERINEAL PAIN 07/15/2016 WING HUNTER DO Ot Z01.8 12 ENCOUNTER FOR PREPROCEDURAL LABORATORY E 07/15/2016 WING HUNTER DO Ot Z11.2 ENCOUNTER FOR SCREENING FOR OTHER BACTER 07/15/2016 SUHAS HERNANDEZ MD Ot R00 .2 PALPITATIONS 07/15/2016 SUHAS HERNANDEZ MD Ot R35 .8 OTHER POLYURIA 07/15/2016 SUHAS HERNANDEZ MD Ot R53.83 OTHER FATIGUE 07/15/2016 SUHAS HERNANDEZ MD Ot R63 .1 POLYDIPSIA 07/15/2016 SUHAS HERNANDEZ MD Ot R63 .2 POLYPHAGIA 07/15/2016 SUHAS HERNANDEZ MD Ot R63 .5 ABNORMAL WEIGHT GAIN 07/15/2016 SUHAS HERNANDEZ MD Ot R73 .9 HYPERGLYCEMIA, UNSPECIFIED 07/15/2016 SUHAS HERNANDEZ MD Ot S93.401A SPRAIN OF UNSPECIFIED LIGAMENT OF RIGHT 07/15/2016 SUHAS HERNANDEZ MD Ot X58.XXXA EXPOSURE TO OTHER SPECIFIED FACTORS, INI 07/15/2016 SUHAS HERNANDEZ MD Ot Y99 .8 OTHER EXTERNAL CAUSE STATUS 07/15/2016 CINDY DEY MD Ot E78. 2 MIXED HYPERLIPIDEMIA 07/15/2016 CINDY DEY MD Ot F41. 8 OTHER SPECIFIED ANXIETY DISORDERS 07/15/2016 CINDY DEY MD Ot R06. 89 OTHER ABNORMALITIES OF BREATHING 07/15/2016 CINDY DEY MD Ot R07. 9 CHEST PAIN, UNSPECIFIED 07/15/2016 JERO DAMON Ot E78.2 MIXED HYPERLIPIDEMIA 07/15/2016 WING HUNTER DO Ot R10.1 1 RIGHT UPPER QUADRANT PAIN 07/17/2016 MAYELIN ARAGON Ot S63.92XA SPRAIN OF UNSP PART OF LEFT WRIST AND OH 07/17/2016 MAYELIN ARAGON Ot S69.92XA UNSP INJURY OF LEFT WRIST, HAND AND FING 07/17/2016 MAYELIN ARAGON Ot W01.0XXA FALL SAME LEV FROM SLIP/TRIP W/O STRIKE 07/17/2016 MAYELIN ARAGON Ot Y93.9 ACTIVITY, UNSPECIFIED 07/17/2016 MAYUR PA, MAYELIN L Ot Y93.K1 ACTIVITY, WALKING AN ANIMAL 07/17/2016 [...] FECAL ABNORMALITIES 01/16/2017 ROSALIE BELLO DO Ot Z01.8 18 ENCOUNTER FOR OTHER PREPROCEDURAL EXAMIN 01/18/2017 Ot 272.0 PURE HYPERCHOLESTEROLEM 01/18/2017 Ot 300.4 DYST HYMIC DISORDER 01/18/2017 Ot 729.1 MYAL JALEN AND MYOSITIS NOS 01/18/2017 Ot V16.3 FAMI LY HX-BREAST MALIG 01/18/2017 Ot V58.69 OTH MED,LT,CURRENT USE 01/18/2017 Ot 611.72 LUM P OR MASS IN BREAST 01/18/2017 Ot 724.2 LUMBAGO 01/18/2017 Ot V45.4 ARTH RODESIS STATUS 01/18/2017 DON GUADALUPE Ot V76.12 OTH SCREEN MAMMO-MALIGN NEOPLASM OF LAURO 01/18/2017 SUHAS HERNANDEZ MD Ot 788 .1 DYSURIA 01/18/2017 SUHAS HERNANDEZ MD Ot 788.41 URINARY FREQUENCY 01/18/2017 SUHAS HERNANDEZ MD Ot 784 .0 HEADACHE 01/18/2017 CINDY DEY MD Ot 278. 00 OBESITY, NOS 01/18/2017 CINDY DEY MD Ot 305. 1 TOBACCO USE DISORDER 01/18/2017 CINDY DEY MD Ot 780. 79 OTH MALAISE FATIGUE 01/18/2017 CINDY DEY MD Ot 786. 50 CHEST PAIN NOS 01/18/2017 CINDY DEY MD Ot 278. 00 OBESITY, NOS 01/18/2017 CINDY DEY MD Ot 305. 1 TOBACCO USE DISORDER 01/18/2017 CINDY DEY MD Ot 780. 79 OTH MALAISE FATIGUE 01/18/2017 CINDY DEY MD Ot 786. 50 CHEST PAIN NOS 01/18/2017 CINDY DEY MD Ot 278. 00 OBESITY, NOS 01/18/2017 CINDY DEY MD Ot 305. 1 TOBACCO USE DISORDER 01/18/2017 CINDY DEY MD Ot 780. 79 OTH MALAISE FATIGUE 01/18/2017 CINDY DEY MD Ot 786. 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 01/18/2017 WING HUNTER DO Ot R10.2 PELVIC AND PERINEAL PAIN 01/18/2017 WING HUNTER DO Ot Z01.8 12 ENCOUNTER FOR PREPROCEDURAL LABORATORY E 01/18/2017 WING HUNTER DO Ot Z11.2 ENCOUNTER FOR SCREENING FOR OTHER BACTER 01/18/2017 SUHAS HERNANDEZ MD Ot R00 .2 PALPITATIONS 01/18/2017 SUHAS HERNANDEZ MD Ot R35 .8 OTHER POLYURIA 01/18/2017 SUHAS HERNANDEZ MD Ot R53.83 OTHER FATIGUE 01/18/2017 SUHAS HERNANDEZ MD Ot R63 .1 POLYDIPSIA 01/18/2017 SUHAS HERNANDEZ MD Ot R63 .2 POLYPHAGIA 01/18/2017 SUHAS HERNANDEZ MD Ot R63 .5 ABNORMAL WEIGHT GAIN 01/18/2017 SUHAS HERNANDEZ MD Ot R73 .9 HYPERGLYCEMIA, UNSPECIFIED 01/18/2017 SUHAS HERNANDEZ MD Ot S93.401A SPRAIN OF UNSPECIFIED LIGAMENT OF RIGHT 01/18/2017 SUHAS HERNANDEZ MD Ot X58.XXXA EXPOSURE TO OTHER SPECIFIED FACTORS, INI 01/18/2017 SUHAS HERNANDEZ MD Ot Y99 .8 OTHER EXTERNAL CAUSE STATUS 01/18/2017 CINDY DEY MD Ot E78. 2 MIXED HYPERLIPIDEMIA 01/18/2017 CINDY DEY MD Ot F41. 8 OTHER SPECIFIED ANXIETY DISORDERS 01/18/2017 CINDY DEY MD Ot R06. 89 OTHER ABNORMALITIES OF BREATHING 01/18/2017 CINDY DEY MD Ot R07. 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 DEPENDENCE, CIGARETTES, UNCOMPL 01/18/2017 ROSALIE BELLO DO Ot F41.9 ANXIETY DISORDER, UNSPECIFIED 01/18/2017 ROSALIE BELLO DO Ot K21.9 GASTRO-ESOPHAGEAL REFLUX DISEASE WITHOUT 01/18/2017 ROSALIE BELLO DO Ot K29.7 0 GASTRITIS, UNSPECIFIED, WITHOUT BLEEDING 01/18/2017 ROSALIE BELLO DO Ot K29.8 0 DUODENITIS WITHOUT BLEEDING 01/18/2017 ROSALIE BELLO DO Ot K57.3 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 01/18/2017 ROSALIE BELLO DO B Ot K63.5 POLYP OF COLON 01/18/2017 ROSALIE BELLO DO B Ot K64.8 OTHER HEMORRHOIDS 01/18/2017 ROSALIE BELLO DO B Ot Z68.2 9 BODY MASS INDEX (BMI) 29.0-29.9, ADULT 01/18/2017 NATANPATTI ROSALIE PEREZ B Ot Z79.8 99 OTHER INDUSTRIAL INSULATOR (CURRENT) DRUG THERAPY 01/20/2017 ROSALIE BELLO DO B Ot E66.9 OBESITY, UNSPECIFIED 01/20/2017 DARION BELLO DOIC B Ot E78.5 HYPERLIPIDEMIA, UNSPECIFIED 01/20/2017 ROSALIE BELLO DO B Ot F17.2 10 NICOTINE DEPENDENCE, CIGARETTES, UNCOMPL 01/20/2017 ROSALIE BELLO DO B Ot K21.9 GASTRO-ESOPHAGEAL REFLUX DISEASE WITHOUT 01/20/2017 DARION BELLO DOIC B Ot K29.7 0 GASTRITIS, UNSPECIFIED, WITHOUT BLEEDING 01/20/2017 ROSALIE BELLO DO B Ot K29.8 0 DUODENITIS WITHOUT BLEEDING 01/20/2017 ROSALIE BELLO DO B Ot K57.3 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 01/20/2017 ROSALIE BELLO DO B Ot K63.5 POLYP OF COLON 01/20/2017 ROSALIE BELLO DO B Ot K64.8 OTHER HEMORRHOIDS 01/20/2017 ROSALIE BELLO DO B Ot Z68.2 9 BODY MASS INDEX (BMI) 29.0-29.9, ADULT 01/20/2017 ROSALIE BELLO DO B Ot Z79.8 99 OTHER RESIDENTIAL (CURRENT) DRUG THERAPY 04/14/2017 Ot 272.0 PURE HYPERCHOLESTEROLEM 04/14/2017 Ot 300.4 DYST HYMIC DISORDER 04/14/2017 Ot 729.1 MYAL JALEN AND MYOSITIS NOS 04/14/2017 Ot V16.3 FAMI LY HX-BREAST MALIG 04/14/2017 Ot V58.69 OTH MED,LT,CURRENT USE 04/14/2017 Ot 611.72 LUM P OR MASS IN BREAST 04/14/2017 Ot 724.2 LUMBAGO 04/14/2017 Ot V45.4 ARTH RODESIS STATUS 04/14/2017 DON GUADALUPE Ot V76.12 OTH SCREEN MAMMO-MALIGN NEOPLASM OF LAURO 04/14/2017 SUHAS HERNANDEZ MD Ot 788 .1 DYSURIA 04/14/2017 SUHAS HERNANDEZ MD Ot 788.41 URINARY FREQUENCY 04/14/2017 SUHAS HERNANDEZ MD Ot 784 .0 HEADACHE 04/14/2017 CINDY DEY MD Ot 278. 00 OBESITY, NOS 04/14/2017 CINDY DEY MD Ot 305. 1 TOBACCO USE DISORDER 04/14/2017 CINDY DEY MD Ot 780. 79 OTH MALAISE FATIGUE 04/14/2017 CINDY DEY MD Ot 786. 50 CHEST PAIN NOS 04/14/2017 CINDY DEY MD Ot 278. 00 OBESITY, NOS 04/14/2017 CINDY DEY MD Ot 305. 1 TOBACCO USE DISORDER 04/14/2017 CINDY DEY MD Ot 780. 79 OTH MALAISE FATIGUE 04/14/2017 CINDY DEY MD Ot 786. 50 CHEST PAIN NOS 04/14/2017 CINDY DEY MD Ot 278. 00 OBESITY, NOS 04/14/2017 CINDY DEY MD Ot 305. 1 TOBACCO USE DISORDER 04/14/2017 CINDY DEY MD Ot 780. 79 OTH MALAISE FATIGUE 04/14/2017 CINDY DEY MD Ot 786. 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 04/14/2017 DALE PEREZWING Ot R10.2 PELVIC AND PERINEAL PAIN 04/14/2017 DALE PEREZWING Ot Z01.8 12 ENCOUNTER FOR PREPROCEDURAL LABORATORY E 04/14/2017 DALE PEREZWING Ot Z11.2 ENCOUNTER FOR SCREENING FOR OTHER BACTER 04/14/2017 SUHAS HERNANDEZ MD Ot R00 .2 PALPITATIONS 04/14/2017 SUHAS HERNANDEZ MD Ot R35 .8 OTHER POLYURIA 04/14/2017 SUHAS HERNANDEZ MD Ot R53.83 OTHER FATIGUE 04/14/2017 SUHAS HERNANDEZ MD Ot R63 .1 POLYDIPSIA 04/14/2017 SUHAS HERNANDEZ MD Ot R63 .2 POLYPHAGIA 04/14/2017 SUHAS HERNANDEZ MD Ot R63 .5 ABNORMAL WEIGHT GAIN 04/14/2017 SUHAS HERNANDEZ MD Ot R73 .9 HYPERGLYCEMIA, UNSPECIFIED 04/14/2017 SUHAS HERNANDEZ MD Ot S93.401A SPRAIN OF UNSPECIFIED LIGAMENT OF RIGHT 04/14/2017 SUHAS HERNANDEZ MD Ot X58.XXXA EXPOSURE TO OTHER SPECIFIED FACTORS, INI 04/14/2017 SUHAS HERNANDEZ MD Ot Y99 .8 OTHER EXTERNAL CAUSE STATUS 04/14/2017 CINDY DEY MD Ot E78. 2 MIXED HYPERLIPIDEMIA 04/14/2017 CINDY DEY MD Ot F41. 8 OTHER SPECIFIED ANXIETY DISORDERS 04/14/2017 CINDY DEY MD Ot R06. 89 OTHER ABNORMALITIES OF BREATHING 04/14/2017 CINDY DEY MD Ot R07. 9 CHEST PAIN, UNSPECIFIED 04/14/2017 JERO DAMON Ot E78.2 MIXED HYPERLIPIDEMIA 04/14/2017 DALE WING PEREZ Ot R10.1 1 RIGHT UPPER QUADRANT PAIN 04/14/2017 JOAN WILLETT Ot Z12.31 ENCNTR SCREEN MAMMOGRAM FOR MALIGNANT NE 04/14/2017 SUHAS HERNANDEZ MD Ot R10.31 RIGHT LOWER QUADRANT PAIN 04/20/2017 GEORGIANA FELDER DO Ot R06.02 SHORTNESS OF BREATH 04/25/2017 GEORGIANA FELDER DO Ot R06.02 SHORTNESS OF BREATH 06/10/2017 MAYELIN [...] BIPOLAR DISORDER 07/28/2017 MAU HOFFMANN MD Ot F41 .9 ANXIETY DISORDER, UNSPECIFIED 07/28/2017 MAU HOFFMANN MD Ot G43.909 MIGRAINE, UNSP, NOT INTRACTABLE, WITHOUT 07/28/2017 MAU HOFFMANN MD Ot K21 .9 GASTRO-ESOPHAGEAL REFLUX DISEASE WITHOUT 07/28/2017 MAU HOFFMANN MD Ot R42 DIZZINESS AND GIDDINESS 07/28/2017 MAU HOFFMANN MD Ot Z80 .3 FAMILY HISTORY OF MALIGNANT NEOPLASM OF 07/28/2017 [...] BIPOLAR DISORDER 08/01/2017 MAU HOFFMANN MD Ot F41 .9 ANXIETY DISORDER, UNSPECIFIED 08/01/2017 MAU HOFFMANN MD Ot G43.909 MIGRAINE, UNSP, NOT INTRACTABLE, WITHOUT 08/01/2017 MAU HOFFMANN MD Ot K21 .9 GASTRO-ESOPHAGEAL REFLUX DISEASE WITHOUT 08/01/2017 MAU HOFFMANN MD Ot R42 DIZZINESS AND GIDDINESS 08/01/2017 MAU HOFFMANN MD Ot Z80 .3 FAMILY HISTORY OF MALIGNANT NEOPLASM OF 08/01/2017 [...] CERVIX AND UTER 11/24/2017 KEELY GARG Ot N63. 23 UNSPECIFIED LUMP IN THE LEFT BREAST, LOW 11/24/2017 KEELY GARG Ot Z13.820 ENCOUNTER FOR SCREENING FOR OSTEOPOROSIS 12/01/2017 RK FU MD, Ot S13.4XX D SPRAIN OF LIGAMENTS OF CERVICAL SPINE, S 12/01/2017 RK FU MD, Ot X50.9XX D OTHER AND UNSPECIFIED OVREXRTN OR STRNOU 12/04/2017 RK FU MD, Ot S13.4XX D SPRAIN OF LIGAMENTS OF CERVICAL SPINE, S 12/04/2017 RK FU MD, Ot X50.9XX D OTHER AND UNSPECIFIED OVREXRTN OR STRNOU 12/07/2017 KEELY GARG Ot N63. 23 UNSPECIFIED LUMP IN THE LEFT BREAST, LOW 12/07/2017 KEELY GARG Ot Z13.820 ENCOUNTER FOR SCREENING FOR OSTEOPOROSIS 12/25/2017 RK FU MD, Ot S13.4XX D SPRAIN OF LIGAMENTS OF CERVICAL SPINE, S 12/25/2017 RK FU MD Ot X50.9XX D OTHER AND UNSPECIFIED OVREXRTN OR STRNOU 01/08/2018 RK FU MD Ot S13.4XX D SPRAIN OF LIGAMENTS OF CERVICAL SPINE, S 01/08/2018 RK FU MD Ot X50.9XX D OTHER AND UNSPECIFIED OVREXRTN OR STRNOU 04/23/2018 NERIS BOSS APRN Ot E78.00 PURE HYPERCHOLESTEROLEMIA, UNSPECIFIED 04/23/2018 NERIS BOSS APRN Ot F12.10 CANNABIS ABUSE, UNCOMPLICATED 04/23/2018 NERIS BOSS APRN Ot F17.210 NICOTINE DEPENDENCE, CIGARETTES, UNCOMPL 04/23/2018 NERIS BOSS APRN Ot F31 .9 BIPOLAR DISORDER, UNSPECIFIED 04/23/2018 NERIS BOSS APRN Ot F41 .9 ANXIETY DISORDER, UNSPECIFIED 04/23/2018 NERIS BOSS APRN Ot G43.909 MIGRAINE, UNSP, NOT INTRACTABLE, WITHOUT 04/23/2018 NERIS BOSS APRN Ot K21 .9 GASTRO-ESOPHAGEAL REFLUX DISEASE WITHOUT 04/23/2018 NERIS BOSS APRN Ot M24.812 OTH SPECIFIC JOINT DERANGEMENTS OF LEFT 04/23/2018 NERIS BOSS APRN Ot M25.512 PAIN IN LEFT SHOULDER 04/23/2018 NERIS BOSS APRN Ot W19.XXXA UNSPECIFIED FALL, INITIAL ENCOUNTER 04/23/2018 NERIS BOSS APRN Ot Y92.[address] OF OCCURRENCE O 04/23/2018 NERIS BOSS APRN Ot Z79.51 INDUSTRIAL INSULATOR (CURRENT) USE OF INHALED STERO 04/23/2018 NERIS BOSS APRN Ot Z79.52 RESIDENTIAL (CURRENT) USE OF SYSTEMIC STER 04/23/2018 NERIS BOSS APRN Ot Z80 .3 FAMILY HISTORY OF MALIGNANT NEOPLASM OF 04/23/2018 NERIS BOSS APRN Ot Z82.49 FAMILY HX OF ISCHEM HEART DIS AND OTH DI 04/23/2018 NERIS BOSS APRN Ot Z86.19 PERSONAL HISTORY OF OTHER INFECTIOUS AND 04/23/2018 NERIS BOSS APRN Ot Z87.19 PERSONAL HISTORY OF OTHER DISEASES OF TH 04/23/2018 NERIS BOSS APRN Ot Z88 .8 ALLERGY STATUS TO OT DRUG/MEDS/BIOL SUB 04/23/2018 NERIS BOSS APRN Ot Z90.710 ACQUIRED ABSENCE OF BOTH CERVIX AND UTER 04/23/2018 NERIS BOSS APRN Ot Z90.89 ACQUIRED ABSENCE OF OTHER ORGANS 04/25/2018 NERIS BOSS APRN Ot E78.00 PURE HYPERCHOLESTEROLEMIA, UNSPECIFIED 04/25/2018 NERIS BOSS APRN Ot F12.10 CANNABIS ABUSE, UNCOMPLICATED 04/25/2018 NERIS BOSS APRN Ot F17.210 NICOTINE DEPENDENCE, CIGARETTES, UNCOMPL 04/25/2018 NERIS BOSS APRN Ot F31 .9 BIPOLAR DISORDER, UNSPECIFIED 04/25/2018 NERIS BOSS APRN Ot F41 .9 ANXIETY DISORDER, UNSPECIFIED 04/25/2018 NERIS BOSS APRN Ot G43.909 MIGRAINE, UNSP, NOT INTRACTABLE, WITHOUT 04/25/2018 NERIS BOSS APRN Ot K21 .9 GASTRO-ESOPHAGEAL REFLUX DISEASE WITHOUT 04/25/2018 NERIS BOSS APRN Ot M24.812 OT SPECIFIC JOINT DERANGEMENTS OF LEFT 04/25/2018 NERIS BOSS APRN Ot M25.512 PAIN IN LEFT SHOULDER 04/25/2018 NERIS BOSS APRN Ot W19.XXXA UNSPECIFIED FALL, INITIAL ENCOUNTER 04/25/2018 NERIS BOSS APRN Ot Y92.[address] OF OCCURRENCE O 04/25/2018 NERIS BOSS APRN Ot Z79.51 RESIDENTIAL (CURRENT) USE OF INHALED STERO 04/25/2018 NERIS BOSS APRN Ot Z79.52 INDUSTRIAL INSULATOR (CURRENT) USE OF SYSTEMIC STER 04/25/2018 NERIS BOSS APRN Ot Z80 .3 FAMILY HISTORY OF MALIGNANT NEOPLASM OF 04/25/2018 NERIS BOSS APRN Ot Z82.49 FAMILY HX OF ISCHEM HEART DIS AND OTH DI 04/25/2018 NERIS BOSS APRN Ot Z86.19 PERSONAL HISTORY OF OTHER INFECTIOUS AND 04/25/2018 NERIS BOSS APRN Ot Z87.19 PERSONAL HISTORY OF OTHER DISEASES OF TH 04/25/2018 NERIS BOSS APRN Ot Z88 .8 ALLERGY STATUS TO OT DRUG/MEDS/BIOL SUB 04/25/2018 NERIS BOSS APRN Ot Z90.710 ACQUIRED ABSENCE OF BOTH CERVIX AND UTER 04/25/2018 NERIS BOSS APRN Ot Z90.89 ACQUIRED ABSENCE OF OTHER ORGANS 05/17/2018 DALE PEREZ WING C Ot Z01.8 18 ENCOUNTER FOR OTHER PREPROCEDURAL EXAMIN 05/18/2018 JORGE HUNTER DOA C Ot Z01.8 18 ENCOUNTER FOR OTHER PREPROCEDURAL EXAMIN 05/22/2018 DALE PEREZ WING C Ot F17.2 10 NICOTINE DEPENDENCE, CIGARETTES, UNCOMPL 05/22/2018 DALE PEREZ WING C Ot I49.9 CARDIAC ARRHYTHMIA, UNSPECIFIED 05/22/2018 JORGE HUNTER DOA C Ot K21.9 GASTRO-ESOPHAGEAL REFLUX DISEASE WITHOUT 05/22/2018 DALE PEREZ WING C Ot L72.0 EPIDERMAL CYST 05/22/2018 DALE PEREZ WING C Ot N90.8 9 OTH NONINFLAMMATORY DISORDERS OF VULVA A 05/22/2018 DALE PEREZ WING C Ot Z79.8 99 OTHER RESIDENTIAL (CURRENT) DRUG THERAPY 06/15/2018 DALE PEREZ WING C Ot F17.2 10 NICOTINE DEPENDENCE, CIGARETTES, UNCOMPL 06/15/2018 DALE PEREZ WING C Ot I49.9 CARDIAC ARRHYTHMIA, UNSPECIFIED 06/15/2018 HUNTER DO, WING C Ot K21.9 GASTRO-ESOPHAGEAL REFLUX DISEASE WITHOUT 06/15/2018 DALE WING PEREZ Ot L72.0 EPIDERMAL CYST 06/15/2018 HUNTER DO WING C Ot N90.8 9 OTH NONINFLAMMATORY DISORDERS OF VULVA A 06/15/2018 WING HUNTER DO Ot Z79.8 99 OTHER RESIDENTIAL (CURRENT) DRUG THERAPY 07/02/2018 RK FU MD, Ot M25.812 OTHER SPECIFIED JOINT DISORDERS, LEFT SH 07/11/2018 RK FU MD, Ot M25.812 OTHER SPECIFIED JOINT DISORDERS, LEFT 07/27/2018 RK FU MD, Ot M25.812 OTHER SPECIFIED JOINT DISORDERS, LEFT 08/09/2018 RK FU MD, Ot M25.812 OTHER SPECIFIED JOINT DISORDERS, LEFT 09/14/2018 RK FU MD Ot S46.012 D STRAIN OF MUSC/TEND THE ROTATOR CUFF OF 09/14/2018 RK FU MD Ot W19.XXX D UNSPECIFIED FALL, SUBSEQUENT ENCOUNTER 10/01/2018 RK FU MD Ot S46.012 D STRAIN OF MUSC/TEND THE ROTATOR CUFF OF 10/01/2018 RK FU MD Ot W19.XXX D UNSPECIFIED FALL, SUBSEQUENT ENCOUNTER 10/30/2018 RK FU MD Ot S46.012 D STRAIN OF MUSC/TEND THE ROTATOR CUFF OF 10/30/2018 RK FU MD Ot W19.XXX D UNSPECIFIED FALL, SUBSEQUENT ENCOUNTER 10/31/2018 RK FU MD Ot S46.012 D STRAIN OF MUSC/TEND THE ROTATOR CUFF OF 10/31/2018 RK FU MD Ot W19.XXX D UNSPECIFIED FALL, SUBSEQUENT ENCOUNTER 12/11/2018 RK FU MD Ot S46.012 D STRAIN OF MUSC/TEND THE ROTATOR CUFF OF 12/11/2018 RK FU MD, Ot W19.XXX D UNSPECIFIED FALL, SUBSEQUENT ENCOUNTER 12/13/2018 RK FU MD Ot S46.012 D STRAIN OF MUSC/TEND THE ROTATOR CUFF OF 12/13/2018 RK FU MD Ot W19.XXX D UNSPECIFIED FALL, SUBSEQUENT ENCOUNTER 01/02/2019 JESSE CLIFFORD APRN Ot Z12.31 ENCNTR SCREEN MAMMOGRAM FOR MALIGNANT NE 01/02/2019 JESSE CLIFFORD ROOFING SUPERVISOR Ot Z53.8 PROCEDURE AND TREATMENT NOT CARRIED OUT 01/03/2019 RK FU MD Ot S46.012 D STRAIN OF MUSC/TEND THE ROTATOR CUFF OF 01/03/2019 RK FU MD Ot W19.XXX D UNSPECIFIED FALL, SUBSEQUENT ENCOUNTER 01/03/2019 LISA ADAMES MD Ot E78. 00 PURE HYPERCHOLESTEROLEMIA, UNSPECIFIED 01/03/2019 LISA ADAMES MD Ot F31. 9 BIPOLAR DISORDER, UNSPECIFIED 01/03/2019 LISA ADAMES MD Ot F41. 9 ANXIETY DISORDER, UNSPECIFIED 01/03/2019 LISA ADAMES MD Ot F43. 10 POST-TRAUMATIC STRESS DISORDER, UNSPECIF 01/03/2019 LISA ADAMES MD Ot G43.909 MIGRAINE, UNSP, NOT INTRACTABLE, WITHOUT 01/03/2019 LISA ADAMES MD Ot G56. 03 CARPAL TUNNEL SYNDROME, BILATERAL UPPER 01/03/2019 LISA ADAMES MD Ot K21. 9 GASTRO-ESOPHAGEAL REFLUX DISEASE WITHOUT 01/03/2019 LISA ADAMES MD Ot M54. 5 LOW BACK PAIN 01/03/2019 LISA ADAMES MD Ot N20. 0 CALCULUS OF KIDNEY 01/03/2019 LISA ADAMES MD Ot Z80. 3 FAMILY HISTORY OF MALIGNANT NEOPLASM OF 01/03/2019 LISA ADAMES MD Ot Z82. 49 FAMILY HX OF ISCHEM HEART DIS AND OTH DI 01/03/2019 LISA ADAMES MD Ot Z87. 19 PERSONAL HISTORY OF OTHER DISEASES OF TH 01/03/2019 LISA ADAMES MD Ot Z87.440 PERSONAL HISTORY OF URINARY (TRACT) INFE 01/03/2019 LISA ADAMES MD Ot Z87.442 PERSONAL HISTORY OF URINARY CALCULI 01/03/2019 LISA ADAMES MD Ot Z87.891 PERSONAL HISTORY OF NICOTINE DEPENDENCE 01/03/2019 LISA ADAMES MD Ot Z88. 8 ALLERGY STATUS TO OT DRUG/MEDS/BIOL SUB 01/03/2019 LISA ADAMES MD Ot Z90. 49 ACQUIRED ABSENCE OF OTHER SPECIFIED PART 01/03/2019 LISA ADAMES MD, Ot Z90.710 ACQUIRED ABSENCE OF BOTH CERVIX AND UTER 01/03/2019 LISA ADAMES MD Ot Z98.890 OTHER SPECIFIED POSTPROCEDURAL STATES 01/07/2019 LISA ADAMES MD Ot E78. 00 PURE HYPERCHOLESTEROLEMIA, UNSPECIFIED 01/07/2019 LISA ADAMES MD Ot F31. 9 BIPOLAR DISORDER, UNSPECIFIED 01/07/2019 LISA ADAMES MD Ot F41. 9 ANXIETY DISORDER, UNSPECIFIED 01/07/2019 LISA ADAMES MD Ot F43. 10 POST-TRAUMATIC STRESS DISORDER, UNSPECIF 01/07/2019 LISA ADAMES MD Ot G43.909 MIGRAINE, UNSP, NOT INTRACTABLE, WITHOUT 01/07/2019 LISA ADAMES MD Ot G56. 03 CARPAL TUNNEL SYNDROME, BILATERAL UPPER 01/07/2019 LISA ADAMES MD Ot K21. 9 GASTRO-ESOPHAGEAL REFLUX DISEASE WITHOUT 01/07/2019 LISA ADAMES MD Ot M54. 5 LOW BACK PAIN 01/07/2019 LISA ADAMES MD Ot N20. 0 CALCULUS OF KIDNEY 01/07/2019 LISA ADAMES MD Ot Z80. 3 FAMILY HISTORY OF MALIGNANT NEOPLASM OF 01/07/2019 LISA ADAMES MD Ot Z82. 49 FAMILY HX OF ISCHEM HEART DIS AND OTH DI 01/07/2019 LISA ADAMES MD Ot Z87. 19 PERSONAL HISTORY OF OTHER DISEASES OF TH 01/07/2019 LISA ADAMES MD Ot Z87.440 PERSONAL HISTORY OF URINARY (TRACT) INFE 01/07/2019 LISA ADAMES MD Ot Z87.442 PERSONAL HISTORY OF URINARY CALCULI 01/07/2019 LISA ADAMES MD Ot Z87.891 PERSONAL HISTORY OF NICOTINE DEPENDENCE 01/07/2019 LISA ADAMES MD Ot Z88. 8 ALLERGY STATUS TO OT DRUG/MEDS/BIOL SUB 01/07/2019 LISA ADAMES MD Ot Z90. 49 ACQUIRED ABSENCE OF OTHER SPECIFIED PART 01/07/2019 LISA ADAMES MD Ot Z90.710 ACQUIRED ABSENCE OF BOTH CERVIX AND UTER 01/07/2019 LISA ADAMES MD Ot Z98.890 OTHER SPECIFIED POSTPROCEDURAL STATES 01/18/2019 SUHAS HERNANDEZ MD Ot 788 .1 DYSURIA 01/18/2019 SUHAS HERNANDEZ MD Ot 788.41 URINARY FREQUENCY 01/18/2019 SUHAS HERNANDEZ MD Ot 784 .0 HEADACHE 01/18/2019 CINDY DEY MD Ot 278. 00 OBESITY, NOS 01/18/2019 CINDY DEY MD Ot 305. 1 TOBACCO USE DISORDER 01/18/2019 CINDY DEY MD Ot 780. 79 OTH MALAISE FATIGUE 01/18/2019 CINDY DEY MD Ot 786. 50 CHEST PAIN NOS 01/18/2019 CINDY DEY MD Ot 278. 00 OBESITY, NOS 01/18/2019 CINDY DEY MD Ot 305. 1 TOBACCO USE DISORDER 01/18/2019 CINDY DEY MD Ot 780. 79 OTH MALAISE FATIGUE 01/18/2019 CINDY DEY MD Ot 786. 50 CHEST PAIN NOS 01/18/2019 CINDY DEY MD Ot 278. 00 OBESITY, NOS 01/18/2019 CINDY DEY MD Ot 305. 1 TOBACCO USE DISORDER 01/18/2019 CINDY DEY MD Ot 780. 79 OTH MALAISE FATIGUE 01/18/2019 CINDY DEY MD Ot 786. 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 01/18/2019 WING HUNTER DO Ot R10.2 PELVIC AND PERINEAL PAIN 01/18/2019 HUNTERWING Diaz DO Ot Z01.8 12 ENCOUNTER FOR PREPROCEDURAL LABORATORY E 01/18/2019 WING HUNTER DO Ot Z11.2 ENCOUNTER FOR SCREENING FOR OTHER BACTER 01/18/2019 SUHAS HERNANDEZ MD Ot R00 .2 PALPITATIONS 01/18/2019 SUHAS HERNANDEZ MD Ot R35 .8 OTHER POLYURIA 01/18/2019 SUHAS HERNANDEZ MD Ot R53.83 OTHER FATIGUE 01/18/2019 SUHAS HERNANDEZ MD Ot R63 .1 POLYDIPSIA 01/18/2019 SUHAS HERNANDEZ MD Ot R63 .2 POLYPHAGIA 01/18/2019 SUHAS HERNANDEZ MD Ot R63 .5 ABNORMAL WEIGHT GAIN 01/18/2019 SUHAS HERNANDEZ MD Ot R73 .9 HYPERGLYCEMIA, UNSPECIFIED 01/18/2019 SUHAS HERNANDEZ MD Ot S93.401A SPRAIN OF UNSPECIFIED LIGAMENT OF RIGHT 01/18/2019 SUHAS HERNANDEZ MD Ot X58.XXXA EXPOSURE TO OTHER SPECIFIED FACTORS, INI 01/18/2019 SUHAS HERNANDEZ MD Ot Y99 .8 OTHER EXTERNAL CAUSE STATUS 01/18/2019 CINDY DEY MD Ot E78. 2 MIXED HYPERLIPIDEMIA 01/18/2019 CINDY DEY MD Ot F41. 8 OTHER SPECIFIED ANXIETY DISORDERS 01/18/2019 CINDY DEY MD Ot R06. 89 OTHER ABNORMALITIES OF BREATHING 01/18/2019 CINDY DEY MD Ot R07. 9 CHEST PAIN, UNSPECIFIED 01/18/2019 JERO DAMON Ot E78.2 MIXED HYPERLIPIDEMIA 01/18/2019 HUNTERWING Diaz DO Ot R10.1 1 RIGHT UPPER QUADRANT PAIN 01/18/2019 JOAN WILLETT Ot Z12.31 ENCNTR SCREEN MAMMOGRAM FOR MALIGNANT NE 01/18/2019 SUHAS HERNANDEZ MD Ot R10.31 RIGHT LOWER QUADRANT PAIN 01/18/2019 GEORGIANA FELDER DO Ot R06.02 SHORTNESS OF BREATH 01/18/2019 KEELY GARG Ot N63. 23 UNSPECIFIED LUMP IN THE LEFT BREAST, LOW 01/18/2019 KEELY GARG Ot Z13.820 ENCOUNTER FOR SCREENING FOR OSTEOPOROSIS 01/18/2019 RK FU MD Ot S46.012 D STRAIN OF MUSC/TEND THE ROTATOR CUFF OF 01/18/2019 RK FU MD Ot W19.XXX D UNSPECIFIED FALL, SUBSEQUENT ENCOUNTER 01/18/2019 JESSE CLIFFORD ROOFING SUPERVISOR Ot Z12.31 ENCNTR SCREEN MAMMOGRAM FOR MALIGNANT NE 01/18/2019 JESSE CLIFFORD ROOFING SUPERVISOR Ot Z53.8 PROCEDURE AND TREATMENT NOT CARRIED OUT 01/18/2019 JESSE CLIFFORD ROOFING SUPERVISOR Ot D17.1 BENIGN LIPOMATOUS NEOPLASM OF SKIN, SUBC 01/18/2019 JESSE CLIFFORD ROOFING SUPERVISOR Ot N63.22 UNSPECIFIED LUMP IN THE LEFT BREAST, UPP 01/23/2019 SUHAS HERNANDEZ MD Ot 788 .1 DYSURIA 01/23/2019 SUHAS HERNANDEZ MD Ot 788.41 URINARY FREQUENCY 01/23/2019 SUHAS HERNANDEZ MD Ot 784 .0 HEADACHE 01/23/2019 CINDY DEY MD Ot 278. 00 OBESITY, NOS 01/23/2019 CINDY DEY MD Ot 305. 1 TOBACCO USE DISORDER 01/23/2019 CINDY DEY MD Ot 780. 79 OTH MALAISE FATIGUE 01/23/2019 CINDY DEY MD Ot 786. 50 CHEST PAIN NOS 01/23/2019 CINDY DEY MD Ot 278. 00 OBESITY, NOS 01/23/2019 CINDY DEY MD Ot 305. 1 TOBACCO USE DISORDER 01/23/2019 CINDY DEY MD Ot 780. 79 OTH MALAISE FATIGUE 01/23/2019 CINDY DEY MD Ot 786. 50 CHEST PAIN NOS 01/23/2019 CINDY DEY MD Ot 278. 00 OBESITY, NOS 01/23/2019 CINDY DEY MD Ot 305. 1 TOBACCO USE DISORDER 01/23/2019 CINDY DEY MD Ot 780. 79 OTH MALAISE FATIGUE 01/23/2019 CINDY DEY MD Ot 786. 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 01/23/2019 HUNTER DO WING C Ot R10.2 PELVIC AND PERINEAL PAIN 01/23/2019 WING HUNTER DO C Ot Z01.8 12 ENCOUNTER FOR PREPROCEDURAL LABORATORY E 01/23/2019 WING HUNTER DO Ot Z11.2 ENCOUNTER FOR SCREENING FOR OTHER BACTER 01/23/2019 SUHAS HERNANDEZ MD Ot R00 .2 PALPITATIONS 01/23/2019 SUHAS HERNANDEZ MD Ot R35 .8 OTHER POLYURIA 01/23/2019 SUHAS HERNANDEZ MD Ot R53.83 OTHER FATIGUE 01/23/2019 SUHAS HERNANDEZ MD Ot R63 .1 POLYDIPSIA 01/23/2019 SUHAS HERNANDEZ MD Ot R63 .2 POLYPHAGIA 01/23/2019 SUHAS HERNANDEZ MD Ot R63 .5 ABNORMAL WEIGHT GAIN 01/23/2019 SUHAS HERNANDEZ MD Ot R73 .9 HYPERGLYCEMIA, UNSPECIFIED 01/23/2019 SUHAS HERNANDEZ MD Ot S93.401A SPRAIN OF UNSPECIFIED LIGAMENT OF RIGHT 01/23/2019 SUHAS HERNANDEZ MD Ot X58.XXXA EXPOSURE TO OTHER SPECIFIED FACTORS, INI 01/23/2019 SUHAS HERNANDEZ MD Ot Y99 .8 OTHER EXTERNAL CAUSE STATUS 01/23/2019 CINDY DEY MD Ot E78. 2 MIXED HYPERLIPIDEMIA 01/23/2019 CINDY DEY MD Ot F41. 8 OTHER SPECIFIED ANXIETY DISORDERS 01/23/2019 CINDY DEY MD Ot R06. 89 OTHER ABNORMALITIES OF BREATHING 01/23/2019 CINDY DEY MD Ot R07. 9 CHEST PAIN, UNSPECIFIED 01/23/2019 JERO DAMON Ot E78.2 MIXED HYPERLIPIDEMIA 01/23/2019 HUNTER DO WING C Ot R10.1 1 RIGHT UPPER QUADRANT PAIN 01/23/2019 JOAN WILLETT MONORAIL HOOKER Ot Z12.31 ENCNTR SCREEN MAMMOGRAM FOR MALIGNANT NE 01/23/2019 SUHAS HERNANDEZ MD Ot R10.31 RIGHT LOWER QUADRANT PAIN 01/23/2019 [place] FELDER DO Ot R06.02 SHORTNESS OF BREATH 01/23/2019 KEELY GARG Ot N63. 23 UNSPECIFIED LUMP IN THE LEFT BREAST, LOW 01/23/2019 KEELY GARG Ot Z13.820 ENCOUNTER FOR SCREENING FOR OSTEOPOROSIS 01/23/2019 KR FU MD Ot S46.012 D STRAIN OF MUSC/TEND THE ROTATOR CUFF OF 01/23/2019 RK FU MD Ot W19.XXX D UNSPECIFIED FALL, SUBSEQUENT ENCOUNTER 01/23/2019 JESSE CLIFFORD APRN Ot Z12.31 ENCNTR SCREEN MAMMOGRAM FOR MALIGNANT NE 01/23/2019 JESSE CLIFFORD APRN Ot Z53.8 PROCEDURE AND TREATMENT NOT CARRIED OUT 01/23/2019 JESSE CLIFFORD APRN Ot D17.1 BENIGN LIPOMATOUS NEOPLASM OF SKIN, SUBC 01/23/2019 JESSE CLIFFORD APRN Ot N63.22 UNSPECIFIED LUMP IN THE LEFT BREAST, UPP 01/23/2019 CINDY DEY MD Ot E78. 2 MIXED HYPERLIPIDEMIA 01/23/2019 CINDY DEY MD Ot R00. 2 PALPITATIONS 01/23/2019 CINDY DEY MD Ot R06. 09 OTHER FORMS OF DYSPNEA 01/23/2019 CINDY DEY MD Ot R07. 9 CHEST PAIN, UNSPECIFIED 01/27/2019 CINDY DEY MD Ot E78. 5 HYPERLIPIDEMIA, UNSPECIFIED 01/27/2019 CINDY DEY MD Ot R00. 2 PALPITATIONS 01/27/2019 CINDY DEY MD Ot R06. 09 OTHER FORMS OF DYSPNEA 01/27/2019 CINDY DEY MD Ot R07. 89 OTHER CHEST PAIN 01/27/2019 CINDY DEY MD Ot E78. 5 HYPERLIPIDEMIA, UNSPECIFIED 01/27/2019 CINDY DEY MD Ot R00. 2 PALPITATIONS 01/27/2019 CINDY DEY MD J Ot R06. 09 OTHER FORMS OF DYSPNEA 01/27/2019 CINDY DEY MD J Ot R07. 89 OTHER CHEST PAIN 01/29/2019 CINDY DEY MD Ot E78. 5 HYPERLIPIDEMIA, UNSPECIFIED 01/29/2019 CINDY DEY MD J Ot R00. 2 PALPITATIONS 01/29/2019 CINDY DEY MD J Ot R06. 09 OTHER FORMS OF DYSPNEA 01/29/2019 CINDY DEY MD J Ot R07. 89 OTHER CHEST PAIN 02/06/2019 CINDY DEY MD Ot E78. 5 HYPERLIPIDEMIA, UNSPECIFIED 02/06/2019 CINDY DEY MD Ot R00. 2 PALPITATIONS 02/06/2019 CINDY DEY MD J Ot R06. 09 OTHER FORMS OF DYSPNEA 02/06/2019 CINDY DEY MD J Ot R07. 89 OTHER CHEST PAIN 02/21/2019 CINDY DEY MD Ot E78. 2 MIXED HYPERLIPIDEMIA 02/21/2019 CINDY DEY MD J Ot R00. 2 PALPITATIONS 02/21/2019 CINDY DEY MD Ot R06. 09 OTHER FORMS OF DYSPNEA 02/21/2019 CINDY DEY MD Ot R07. 9 CHEST PAIN, UNSPECIFIED 04/18/2019 CINDY DEY MD Ot E78. 2 MIXED HYPERLIPIDEMIA 04/18/2019 CINDY DEY MD J Ot R00. 2 PALPITATIONS 04/18/2019 CINDY DEY MD J Ot R06. 09 OTHER FORMS OF DYSPNEA 04/18/2019 CINDY DEY MD Ot R07. 9 CHEST PAIN, UNSPECIFIED 04/22/2019 CINDY DEY MD Ot E78. 2 MIXED HYPERLIPIDEMIA 04/22/2019 CINDY DEY MD Ot R00. 2 PALPITATIONS 04/22/2019 CINDY DEY MD J Ot R06. 09 OTHER FORMS OF DYSPNEA 04/22/2019 CINDY DEY MD J Ot R07. 9 CHEST PAIN, UNSPECIFIED 04/22/2019 CINDY DEY MD J Ot E78. 2 MIXED HYPERLIPIDEMIA 04/22/2019 CINDY DEY MD Ot R00. 2 PALPITATIONS 04/22/2019 CINDY DEY MD Ot R06. 09 OTHER FORMS OF DYSPNEA 04/22/2019 CINDY DEY MD Ot R07. 9 CHEST PAIN, UNSPECIFIED 05/17/2019 JESSE CLIFFORD APRN Ot R10.11 RIGHT UPPER QUADRANT PAIN 05/20/2019 JESSE CLIFFORD APRN Ot R10.11 RIGHT UPPER QUADRANT PAIN 05/29/2019 JESSE CLIFFORD APRN Ot R10.11 RIGHT UPPER QUADRANT PAIN Procedures Code Description Performed By Per jacinto On Podiatry W Melania florian 06/27/2012 Orthopedi Hi [facility] 07/25/2012 30621 URIN E DRUG SCREEN (IN-HOUSE) 09/17/2012 56061 ROUT INE VENIPUNCTURE 09/19/2012 68246 CMP 09/19/2012 [id number] GF R CALC (RESULT ONLY) 09/19/2012 72032 TSH 09/19/2012 72933 INSU MARTY LEVEL 09/19/2012 58285 URIN E DRUG SCREEN (IN-HOUSE) 10/30/2012 47296 MAMM OGRAM DX, EMBER 11/01/2012 OrthopRk [place] 11/01/2012 66219 MRI SPINE (THORACIC) W/O CONTRAST 04/09/2013 43457 MRI SPINE (LUMBAR) W/O CONTRAST 04/09/2013 Physical P hysical Therapy 04/23/2013 Physical P hysical Therapy 06/24/2013 24373 ROUT INE VENIPUNCTURE 09/18/2013 Rk Olivera 09/18/2013 32667 URIN E DRUG SCREEN (IN-HOUSE) 09/18/2013 58396 HEMOCCULT 09/18/2013 92355 HEMOCCULT 09/18/2013 88804 CBC 09/18/2013 2393969 GF R CALC (RESULT ONLY) 09/18/2013 77274 CMP 09/18/2013 51969 LIPI D PANEL 09/18/2013 20661 CRP 09/18/2013 43720 LIPASE 09/18/2013 77065 SED/ ESR RATE RML 09/18/2013 15965 TSH 09/18/2013 30521 STOO L FOR POLYS & LEUKOCYTES 09/18/2013 25633 XRAY SHOULDER RIGHT COMP 2 VIEWS 09/19/2013 96669 CULT URE STOOL 09/19/2013 61717 STOO L FOR O & P 09/19/[id number] OOL FOR BACTERIAL PATHOGENS 09/20/2013 30445 URIN E DRUG SCREEN (IN-HOUSE) 10/08/2013 01011 MRI SPINE (THORACIC) W/O CONTRAST 10/08/2013 96891 MRI SPINE (LUMBAR) W/O CONTRAST 10/08/2013 Results Test Result Range Complete blood count (CBC) with automate d white blood cell (WBC) differential - 06/10/17 13:28 Blood leukocytes automated count (number/volume) 7.7 10*3/uL 4.3-11.0 Blood erythrocytes automated count (number/volume) 4.39 10*6/uL 4.35-5.85 Venous blood hemoglobin measurement (mass/volume) 14.0 g/dL 11.5-16.0 Blood hematocrit (volume fraction) 41 % 35-52 Automated erythrocyte mean corpuscular volume 94 [ foz_us] 80-99 Automated erythrocyte mean corpuscular h emoglobin (mass per erythrocyte) 32 pg 25-34 Automated erythrocyte mean corpuscular h emoglobin concentration measurement (mass/volume) 34 g/dL 32-36 Automated erythrocyte distribution width ratio 12. 9 % 10.0- 14.5 Automated blood platelet count [...] 10*3 1.0-4.0 Blood monocytes automated count (number/volume) 0. 4 10*3 0.0-1.0 Automated eosinophil count 0.1 10*3/uL 0 .0-0.3 Automated blood basophil count (count/volume) 0.0 10*3/uL 0.0-0.1 Comprehensive metabolic panel - 06/10/17 13:28 Serum or plasma sodium measurement (moles/volume) 138 mmol/L 135-145 Serum or plasma potassium measurement (moles/volume) 4.0 mmol/L 3.6-5.0 Serum or plasma chloride measurement (moles/volume) 107 mmol/L 98-107 Carbon dioxide 22 mmol/L 21-32 Serum or plasma anion gap determination (moles/volume) 9 mmol/L 5-14 Serum or plasma urea nitrogen measurement (mass/volume ) 7 mg/dL 7-18 Serum or plasma creatinine measurement (mass/volume) 0.74 mg/dL 0.60-1.30 Serum or plasma urea nitrogen/creatinine mass ratio 9 NRG Serum or plasma creatinine measurement w ith calculation of estimated glomerular filtration rate > NRG Serum or plasma glucose measurement (mass/volume) 111 mg/dL 70-105 Serum or plasma calcium measurement (mass/volume) 9.5 mg/dL 8.5-10.1 Serum or plasma total bilirubin measurement (mass/volu me) 0.5 mg/dL 0.1-1.0 Serum or plasma alkaline phosphatase justen surement (enzymatic activity/volume) 82 U/L 40-136 Serum or plasma aspartate aminotransfera se measurement (enzymatic activity/volume) 21 U/L 5-34 Serum or plasma alanine aminotransferase measurement (enzymatic activity/volume) 21 U/L 0-55 Serum or plasma protein measurement (mass/volume) 6.7 g/dL 6.4-8.2 Serum or plasma albumin measurement (mass/volume) 4.2 g/dL 3.2-4.5 Serum or plasma troponin i.cardiac measu rement (mass/volume) - 06/10/17 13:28 Serum or plasma troponin i.cardiac measurement (mass/v olume) < ng/mL <0.30 Fibrin D-dimer FEU measurement in platel et poor plasma (mass/volume) - 06/10/17 13:28 Fibrin D-dimer FEU measurement in platelet poor plasma (mass/volume) < ug/mL 0.00-0.49 Sputum Gram stain - 06/10/17 14:46 Sputum Gram stain Few WBC's, and mixed bacterial f sherry NR Bacterial sputum culture - 06/10/17 14:4 6 Bacterial sputum culture NORMAL NR CMP - 07/27/17 08:51 GLUCOSE 100 mg/dL 65-99 UREA NITROGEN (BUN) 10 mg/dL 7-25 CREATININE 0.78 mg/dL 0.50-1.05 eGFR NON-AFR. FIJIAN 89 mL/min/1.73m2 > OR = 60 eGFR 103 mL/min/1.73m2 > OR = 60 BUN/CREATININE RATIO NOT APPLICABLE (calc) 6-22 SODIUM 139 mmol/L 135-146 POTASSIUM 4.4 mmol/L 3.5-5.3 CHLORIDE 105 mmol/L 98-110 CARBON DIOXIDE 30 mmol/L 20-31 CALCIUM 9.6 mg/dL 8.6-10.4 PROTEIN, TOTAL 6.6 g/dL 6.1-8.1 ALBUMIN 4.5 g/dL 3.6-5.1 GLOBULIN 2.1 g/dL (calc) 1.9-3.7 ALBUMIN/GLOBULIN RATIO 2.1 (calc) 1.0-2. 5 BILIRUBIN, TOTAL 0.5 mg/dL 0.2-1.2 ALKALINE PHOSPHATASE 74 U/L 33-130 AST 18 U/L 10-35 ALT 17 U/L 6-29 Complete urinalysis with reflex to cultu re - 07/28/17 13:03 Urine color determination YELLOW NRG Urine clarity determination SLIGHTLY CLOUDY NRG Urine pH measurement by test strip 6.5 5-9 Specific gravity of urine by test strip 1.005 1.016-1.022 Urine protein assay by test strip, semi-quantitative NEGATIVE NEGATIVE Urine glucose detection by automated test strip NE GATIVE NEGATIVE Erythrocytes detection in urine sediment by light micr oscopy NEGATIVE NEGATIVE Urine ketones detection by automated test strip NE GATIVE NEGATIVE Urine nitrite detection by test strip NEGATIVE NEGATIVE Urine total bilirubin detection by test strip NEGA TIVE NEGATIVE Urine urobilinogen measurement by automated test strip (mass/volume) NORMAL NORMAL Urine leukocyte esterase detection by dipstick NEG ATIVE NEGATIVE Automated urine sediment erythrocyte cou nt by microscopy (number/high power field) NONE NRG Automated urine sediment leukocyte count by microscopy (number/high power field) NONE NRG Bacteria detection in urine sediment by light microsco py MODERATE NRG Squamous epithelial cells detection in u rine sediment by light microscopy 25-50 NRG Crystals detection in urine sediment by light microsco py NONE NRG Casts detection in urine sediment by light microscopy NONE NRG Mucus detection in urine sediment by light microscopy NEGATIVE NRG Complete urinalysis with reflex to culture NO NRG Complete blood count (CBC) with automate d white blood cell (WBC) differential - 07/28/17 13:56 Blood leukocytes automated count (number/volume) 5.7 10*3/uL 4.3-11.0 Blood erythrocytes automated count (number/volume) 4.67 10*6/uL 4.35-5.85 Venous blood hemoglobin measurement (mass/volume) 15.0 g/dL 11.5-16.0 Blood hematocrit (volume fraction) 43 % 35-52 Automated erythrocyte mean corpuscular volume 93 [ foz_us] 80-99 Automated erythrocyte mean corpuscular h emoglobin (mass per erythrocyte) 32 pg 25-34 Automated erythrocyte mean corpuscular h emoglobin concentration measurement (mass/volume) 35 g/dL 32-36 Automated erythrocyte distribution width ratio 12. 5 % 10.0- 14.5 Automated blood platelet count [...] 10*3 1.0-4.0 Blood monocytes automated count (number/volume) 0. 3 10*3 0.0-1.0 Automated eosinophil count 0.0 10*3/uL 0 .0-0.3 Automated blood basophil count (count/volume) 0.0 10*3/uL 0.0-0.1 Comprehensive metabolic panel - 07/28/17 13:56 Serum or plasma sodium measurement (moles/volume) 140 mmol/L 135-145 Serum or plasma potassium measurement (moles/volume) 3.7 mmol/L 3.6-5.0 Serum or plasma chloride measurement (moles/volume) 104 mmol/L 98-107 Carbon dioxide 26 mmol/L 21-32 Serum or plasma anion gap determination (moles/volume) 10 mmol/L 5-14 Serum or plasma urea nitrogen measurement (mass/volume ) 7 mg/dL 7-18 Serum or plasma creatinine measurement (mass/volume) 0.72 mg/dL 0.60-1.30 Serum or plasma urea nitrogen/creatinine mass ratio 10 NRG Serum or plasma creatinine measurement w ith calculation of estimated glomerular filtration rate > NRG Serum or plasma glucose measurement (mass/volume) 98 mg/dL 70-105 Serum or plasma calcium measurement (mass/volume) 9.4 mg/dL 8.5-10.1 Serum or plasma total bilirubin measurement (mass/volu me) 0.4 mg/dL 0.1-1.0 Serum or plasma alkaline phosphatase justen surement (enzymatic activity/volume) 80 U/L 40-136 Serum or plasma aspartate aminotransfera se measurement (enzymatic activity/volume) 18 U/L 5-34 Serum or plasma alanine aminotransferase measurement (enzymatic activity/volume) 20 U/L 0-55 Serum or plasma protein measurement (mass/volume) 7.2 g/dL 6.4-8.2 Serum or plasma albumin measurement (mass/volume) 4.3 g/dL 3.2-4.5 A1C - 09/20/17 17:09 HEMOGLOBIN A1c 5.3 % of total Hgb <5.7 Methicillin resistant Staphylococcus aur eus (MRSA) screening culture - 05/22/18 08:54 Methicillin resistant Staphylococcus aureus (MRSA) scr eening culture NEG NRG PDM - ATS (PROFILE 8 WITH CONFIRMATION) - 10/15/18 11:40 Prescribed Drug 1 Xanax(TM) NRG Creatinine 30.7 mg/dL > or = 20.0 pH 6.19 4.5 - 9.0 Oxidant NEGATIVE [...] NEGATIVE ng/mL <10 medMATCH 6 Acetylmorphine CONSISTENT NR G Alphahydroxyalprazolam 72 ng/mL <25 medMATCH aOH alprazolam CONSISTENT NRG Alphahydroxymidazolam NEGATIVE ng/mL < 50 medMATCH aOH midazolam CONSISTENT NRG Alphahydroxytriazolam NEGATIVE ng/mL < 50 medMATCH aOH triazolam CONSISTENT NRG Aminoclonazepam NEGATIVE ng/mL <25 medMATCH Aminoclonazepam CONSISTENT NRG Hydroxyethylflurazepam NEGATIVE ng/mL <50 medMATCH OH,Et flurazepam CONSISTENT NR G Lorazepam NEGATIVE ng/mL <50 medMATCH Lorazepam CONSISTENT [...] Norhydrocodone 79 ng/mL <50 medMATCH Norhydrocodone INCONSISTENT NR G medMATCH Buprenorphine CONSISTENT NRG Marijuana Metabolite 99 ng/mL <5 medMATCH Marijuana Metab INCONSISTENT N RG TSH - 12/28/18 08:22 TSH 3.22 mIU/L NRG Complete blood count (CBC) with automate d white blood cell (WBC) differential - 01/03/19 10:45 Blood leukocytes automated count (number/volume) 5.5 10*3/uL 4.3-11.0 Blood erythrocytes automated count (number/volume) 4.85 10*6/uL 4.35-5.85 Venous blood hemoglobin measurement (mass/volume) 15.2 g/dL 11.5-16.0 Blood hematocrit (volume fraction) 44 % 35-52 Automated erythrocyte mean corpuscular volume 91 [ foz_us] 80-99 Automated erythrocyte mean corpuscular h emoglobin (mass per erythrocyte) 31 pg 25-34 Automated erythrocyte mean corpuscular h emoglobin concentration measurement (mass/volume) 35 g/dL 32-36 Automated erythrocyte distribution width ratio 12. 7 % 10.0- 14.5 Automated blood platelet count (count/volume) 242 10*3/uL 130-400 Automated blood platelet mean volume measurement 9.9 [foz_us] 7.4-10.4 Automated blood neutrophils/100 leukocytes 57 % 42-75 Automated blood lymphocytes/100 leukocytes 36 % 12-44 Blood monocytes/100 leukocytes 6 % 0-12 Automated blood eosinophils/100 leukocytes 1 % 0-10 Automated blood basophils/100 leukocytes 1 % 0-10 Blood neutrophils automated count (number/volume) 3.1 10*3 1.8-7.8 Blood lymphocytes automated count (number/volume) 2.0 10*3 1.0-4.0 Blood monocytes automated count (number/volume) 0. 3 10*3 0.0-1.0 Automated eosinophil count 0.0 10*3/uL 0 .0-0.3 Automated blood basophil count (count/volume) 0.0 10*3/uL 0.0-0.1 Comprehensive metabolic panel - 01/03/19 10:45 Serum or plasma sodium measurement (moles/volume) 139 mmol/L 135-145 Serum or plasma potassium measurement (moles/volume) 4.2 mmol/L 3.6-5.0 Serum or plasma chloride measurement (moles/volume) 103 mmol/L 98-107 Carbon dioxide 23 mmol/L 21-32 Serum or plasma anion gap determination (moles/volume) 13 mmol/L 5-14 Serum or plasma urea nitrogen measurement (mass/volume ) 11 mg/dL 7-18 Serum or plasma creatinine measurement (mass/volume) 0.79 mg/dL 0.60-1.30 Serum or plasma urea nitrogen/creatinine mass ratio 14 NRG Serum or plasma creatinine measurement w ith calculation of estimated glomerular filtration rate > NRG Serum or plasma glucose measurement (mass/volume) 98 mg/dL 70-105 Serum or plasma calcium measurement (mass/volume) 9.9 mg/dL 8.5-10.1 Serum or plasma total bilirubin measurement (mass/volu me) 0.7 mg/dL 0.1-1.0 Serum or plasma alkaline phosphatase justen surement (enzymatic activity/volume) 134 U/L 40-136 Serum or plasma aspartate aminotransfera se measurement (enzymatic activity/volume) 83 U/L 5-34 Serum or plasma alanine aminotransferase measurement (enzymatic activity/volume) 143 U/L 0-55 Serum or plasma protein measurement (mass/volume) 8.1 g/dL 6.4-8.2 Serum or plasma albumin measurement (mass/volume) 4.8 g/dL 3.2-4.5 Complete urinalysis with reflex to cultu re - 01/03/19 10:54 Urine color determination YELLOW NRG Urine clarity determination CLEAR NR G Urine pH measurement by test strip 6.5 5-9 Specific gravity of urine by test strip 1.010 1.016-1.022 Urine protein assay by test strip, semi-quantitative NEGATIVE NEGATIVE Urine glucose detection by automated test strip NE GATIVE NEGATIVE Erythrocytes detection in urine sediment by light micr oscopy 2+ NEGATIVE Urine ketones detection by automated test strip NE GATIVE NEGATIVE Urine nitrite detection by test strip NEGATIVE NEGATIVE Urine total bilirubin detection by test strip NEGA TIVE NEGATIVE Urine urobilinogen measurement by automated test strip (mass/volume) NORMAL NORMAL Urine leukocyte esterase detection by dipstick NEG ATIVE NEGATIVE Automated urine sediment erythrocyte cou nt by microscopy (number/high power field) RARE NRG Automated urine sediment leukocyte count by microscopy (number/high power field) RARE NRG Bacteria detection in urine sediment by light microsco py NEGATIVE NRG Squamous epithelial cells detection in u rine sediment by light microscopy 0-2 NRG Crystals detection in urine sediment by light microsco py NONE NRG Casts detection in urine sediment by light microscopy NONE NRG Mucus detection in urine sediment by light microscopy NEGATIVE NRG Complete urinalysis with reflex to culture NO NRG PEYMAN MTN SPOTTED FEVER, IgG, IgM - 01/06 08/25 12:54 RMSF IGG NOT DETECTED NRG RMSF IGM NOT DETECTED NRG CMP - 05/14/19 11:08 GLUCOSE 99 mg/dL 65-99 UREA NITROGEN (BUN) 10 mg/dL 7-25 CREATININE 0.70 mg/dL 0.50-1.05 eGFR NON-AFR. FIJIAN 100 mL/min/1.73m2 > OR = 60 eGFR 116 mL/min/1.73m2 > OR = 60 BUN/CREATININE RATIO NOT APPLICABLE (calc) 6-22 SODIUM 140 mmol/L 135-146 POTASSIUM 4.1 mmol/L 3.5-5.3 CHLORIDE 103 mmol/L 98-110 CARBON DIOXIDE 29 mmol/L 20-32 CALCIUM 9.7 mg/dL 8.6-10.4 PROTEIN, TOTAL 7.3 g/dL 6.1-8.1 ALBUMIN 4.6 g/dL 3.6-5.1 GLOBULIN 2.7 g/dL (calc) 1.9-3.7 ALBUMIN/GLOBULIN RATIO 1.7 (calc) 1.0-2. 5 BILIRUBIN, TOTAL 0.5 mg/dL 0.2-1.2 ALKALINE PHOSPHATASE 116 U/L 33-130 AST 18 U/L 10-35 ALT 20 U/L 6-29 Streptococcus pyogenes antigen detection - 11/08/19 08:17 Streptococcus pyogenes antigen detection NEGATIVE NEGATIVE Complete blood count (CBC) with automate d white blood cell (WBC) differential - 11/08/19 08:27 Blood leukocytes automated count (number/volume) 5.2 10*3/uL 4.3-11.0 Blood erythrocytes automated count (number/volume) 4.97 10*6/uL 4.35-5.85 Venous blood hemoglobin measurement (mass/volume) 15.3 g/dL 11.5-16.0 Blood hematocrit (volume fraction) 45 % 35-52 Automated erythrocyte mean corpuscular volume 91 [ foz_us] 80-99 Automated erythrocyte mean corpuscular h emoglobin (mass per erythrocyte) 31 pg 25-34 Automated erythrocyte mean corpuscular h emoglobin concentration measurement (mass/volume) 34 g/dL 32-36 Automated erythrocyte distribution width ratio 12. 8 % 10.0- 14.5 Automated blood platelet count (count/volume) 259 10*3/uL 130-400 Automated blood platelet mean volume measurement 10.6 [foz_us] 7.4-10.4 Automated blood neutrophils/100 leukocytes 53 % 42-75 Automated blood lymphocytes/100 leukocytes 40 % 12-44 Blood monocytes/100 leukocytes 7 % 0-12 Automated blood eosinophils/100 leukocytes 1 % 0-10 Automated blood basophils/100 leukocytes 0 % 0-10 Blood neutrophils automated count (number/volume) 2.7 10*3 1.8-7.8 Blood lymphocytes automated count (number/volume) 2.1 10*3 1.0-4.0 Blood monocytes automated count (number/volume) 0. 3 10*3 0.0-1.0 Automated eosinophil count 0.1 10*3/uL 0 .0-0.3 Automated blood basophil count (count/volume) 0.0 10*3/uL 0.0-0.1 Encounters ACCT No. Visit Date/Time Discharge Status Pt. Type Provider Facility Loc./Unit Complaint [id number] 10/17/2019 11:00:00 10/17/2019 23:59: 59 CLS Outpatient JESSE CLIFFORD [facility] [id number] 05/14/2019 10:00:00 Document Registration [id number] 01/25/2019 11:40:00 Document Registration [id number] 12/28/2018 08:50:00 Document Registration [id number] 10/15/2018 11:20:00 Document Registration [id number] 09/20/2017 16:00:00 Document Registration [id number] 07/27/2017 08:40:00 Document Registration [id number] 05/14/2019 13:27:00 23:59:59 CLS Outpatient JESSE CLIFFORD APRN [facility] RAD RUQ PAIN [id number] 04/19/2019 00:11:00 23:59:59 CLS Preadmit CINDY DEY MD [facility] CARD OTHER CHEST PAIN [id number] 01/18/2019 09:42:00 00:01:00 DIS Outpatient CINDY DEY MD [facility] CARD OTHER CHEST PAIN [id number] 01/23/2019 11:25:00 23:59:59 CLS Outpatient CINDY DEY MD [facility] CARD OTHER CHEST PAIN [id number] 01/03/2019 09:40:00 23:59:59 CLS Outpatient JESSE CLIFFORD APRN [facility] RAD BREAST LUMP [id number] 01/03/2019 10:35:00 12:50:00 DIS Emergency LISA ADAMES MD [facility] ER KIDNEY STONES [id number] 01/01/2019 08:38:00 23:59:59 CLS Outpatient JESSE CLIFFORD APRN [facility] RAD SCREENING [id number] 12/12/2018 00:11:00 23:59:59 CLS Preadmit RK FU MD [facility] REHAB S/P L RCR [id number] 11/06/2018 10:45:00 019 00:01:00 DIS Outpatient RK FU MD [facility] REHAB S/P L RCR [id number] 07/19/2018 13:00:00 019 09:12:00 DIS Outpatient RK FU MD [facility] REHAB IMPINGEMENT L SHOULDER [id number] 05/22/2018 08:48:00 12:08:00 DIS Outpatient WING HUNTER DO [facility] RIGHT GROIN LESION [id number] 05/17/2018 07:07:00 12:05:00 DIS Outpatient WING HUNTER DO [facility] PREOP RIGHT GROIN LESION [id number] 04/23/2018 11:24:00 018 15:25:00 DIS Emergency NERIS BOSS APRN [facility] ER L SHOULDER PAIN [id number] 12/08/2017 08:08:00 018 13:43:00 DIS Outpatient RK FU MD [facility] REHAB CERVICAL SPRAIN/WHIPLAS H INJURY [id number] 11/23/2017 09:02:00 018 23:59:59 CLS Outpatient KEELY GARG [facility] RAD N63.20 LT BREAST LUMP;Z 13.820 OSTEOPOROSIS SCREENI [id number] 11/09/2017 09:27:00 23:59:59 CLS Preadmit KEELY GARG [facility] RAD Z13.820 SCREENING FOR O STEOPOROSIS [id number] 07/28/2017 12:43:00 017 15:27:00 DIS Emergency MAU HOFFMANN MD [facility] ER DIZZY/PASSING OUT [id number] 06/21/2017 10:43:00 017 23:59:59 CLS Preadmit RK FU MD [facility] REHAB NECK PAIN [id number] 06/10/2017 13:23:00 017 17:17:00 DIS Emergency MAYELIN ARAGON [facility] ER CP, COUGHING [id number] 04/14/2017 11:37:00 017 23:59:59 CLS Outpatient COLTHALMA ROSA GEORGIANA A [facility] RAD R06.02 [id number] 01/18/2017 10:16:00 017 14:30:00 DIS Outpatient ROSALIE BELLO DO [facility] ENDO BLACK TARRY STOOLS [id number] 01/16/2017 05:41:00 017 13:30:00 DIS Outpatient ROSALIE BELLO DO B [facility] PREOP BLACK TARRY STOOLS [id number] 12/15/2016 09:35:00 017 23:59:59 CLS Outpatient SUHAS HERNANDEZ MD [facility] CARD ABD PAIN RLQ [id number] 11/25/2016 10:08:00 017 23:59:59 CLS Outpatient JOAN WILLETT MONORAIL HOOKER [facility] RAD SCREENING [id number] 07/15/2016 14:09:00 016 16:43:00 DIS Emergency MAYELIN ARAGON [facility] ER FALL LEFT WRIST/HAND I NJURY [id number] 05/19/2016 09:59:00 016 23:59:59 CLS Outpatient WING HUNTER DO [facility] RAD ABDOMINAL PAIN [id number] 01/18/2016 07:09:00 016 23:59:59 CLS Outpatient RIYA DAMON [facility] LAB MIXED PHYER LIPIDEMIA [id number] 01/18/2016 07:05:00 016 23:59:59 CLS Outpatient YISSEL MARSHALL, CINDY Gordon [facility] CARD CHEST PAIN SYNDROME,DYS PNEA,MILD HLP,ANXIETY [id number] 01/07/2016 15:21:00 016 23:59:59 CLS Outpatient SUHAS HERNANDEZ MD [facility] RAD R ANKLE SPRAIN [id number] 11/12/2015 08:45:00 016 23:59:59 CLS Outpatient SUHAS HERNANDEZ MD [facility] CARD FATIGUE,WEIGHT GAIN,PALPITATIONS,POLYPHAGIA, [id number] 09/29/2015 09:43:00 016 15:25:00 DIS Outpatient WING HUNTER DO [facility] VIN3; CHRONIC PELVIC PA IN [id number] 09/23/2015 10:18:00 016 23:59:59 CLS Outpatient WING HUNTER DO [facility] PREOP VIN3; CHRONIC PELVIC PA IN [id number] 09/23/2015 08:29:00 016 23:59:59 CLS Outpatient WING HUNTER DO [facility] RAD CHRONIC PELVIC PAIN, RU Q ABD PAIN [id number] 08/17/2015 10:07:00 016 23:59:59 CLS Outpatient RIYA DAMON [facility] LAB MILD HLP [id number] 04/24/2015 10:49:00 23:59:59 CLS Preadmit FIGUEROA ESQUEDA MD [facility] REHAB [id number] 03/31/2015 11:39:00 23:59:59 CLS Outpatient FIGUEROA ESQUEDA MD [facility] RAD LUMBAGO [id number] 03/31/2015 11:33:00 23:59:59 CLS Outpatient KALPANA JACINTO MD [facility] RAD STONES [id number] 03/24/2015 14:06:00 015 23:59:59 CLS Outpatient KALPANA JACINTO MD [facility] RAD STONE [id number] 03/03/2015 22:34:00 015 01:43:00 DIS Emergency PETER PEREZ, EMMY Lorenz Bronwyn a [facility] ER PELVIC PRESSURE/BLEEDIN G [id number] 09/17/2014 11:40:00 015 23:59:59 CLS Outpatient CINDY DEY MD [facility] CARD CP,FATIADRIAN,TOBACCO USE [id number] 09/04/2014 20:00:00 015 23:59:59 CLS Preadmit CINDY DEY MD [facility] SLEEP SNORING FATIGUE LOSS OF ENERGY [id number] 09/02/2014 13:52:00 015 23:59:59 CLS Outpatient CINDY DEY MD [facility] CARD CP,FATIUGE,TOBACCO USE [id number] 08/25/2014 08:20:00 015 23:59:59 CLS Outpatient CINDY DEY MD [facility] LAB CHEST PAIN SYNDROME,FATIGUE,OBESITY,TOBACCO USER [id number] 06/26/2014 09:52:00 014 23:59:59 CLS Outpatient SUHAS HERNANDEZ MD [facility] RAD HEADACHES [id number] 03/06/2014 13:13:00 014 14:00:00 DIS Outpatient KR FU MD [facility] REHAB BACK PAIN [id number] 03/12/2014 08:13:00 014 23:59:59 CLS Outpatient RK FU MD [facility] REHAB S/P R RTC REPAIR [id number] 03/06/2014 13:46:00 014 14:58:00 DIS Emergency MARIANNE STOVER MD [facility] ER BACK PAIN/HEADA TANESHA [id number] 11/29/2013 12:54:00 014 23:59:59 CLS Outpatient SUHAS HERNANDEZ MD [facility] LAB URINARY FREQ,BURNING ON URINATION [id number] 06/03/2013 12:59:00 14:56:00 DIS Outpatient DON GUADALUPE [facility] REHAB BACK PAIN W RADICULOPA THY [id number] 04/01/2013 16:01:00 18:00:00 DIS Emergency NERIS BOSS APRN [facility] ER BACK PAIN [id number] 12/20/2012 13:07:00 23:59:59 CLS Outpatient DON GUADALUPE [facility] RAD BREAST CA [id number] 11/08/2019 08:41:00 Document Registration [id number] 05/13/2015 09:21:00 Document Registration [id number] 06/26/2014 09:53:00 Document Registration [id number] 06/26/2014 09:53:00 Document Registration [id number] 06/26/2014 09:53:00 Document Registration [id number] 06/26/2014 09:53:00 Document Registration [id number] 06/26/2014 09:53:00 Document Registration [id number] 06/26/2014 09:53:00 Document Registration [id number] 06/26/2014 09:53:00 Document Registration [id number] 02/09/2012 10:31:00 Document Registration [id number] 12/06/2011 10:42:00 Document Registration [id number] 11/07/2011 14:07:00 Document Registration [id number] 11/02/2011 17:11:00 Document Registration [id number] 01/11/2011 10:42:00 Document Registration [id number] 12/23/2010 12:59:00 Document Registration [id number] 11/22/2010 13:59:00 Document Registration [id number] 10/27/2010 13:51:00 Document Registration [id number] 09/02/2010 11:28:00 Document Registration [id number] 03/19/2010 12:00:00 Document Registration [id number] 03/18/2010 08:56:00 Document Registration [id number] 12/25/2009 10:58:00 Document Registration [id number] 11/04/2009 13:11:00 Document Registration [id number] 10/26/2009 14:40:00 Document Registration [id number] 08/17/2009 14:23:00 Document Registration [id number] 06/25/2009 11:48:00 Document Registration [id number] 05/28/2009 08:00:00 Document Registration [id number] 05/25/2009 10:37:00 Document Registration [id number] 03/06/2009 08:46:00 Document Registration [id number] 02/14/2014 11:47:00 02/14/2014 23:59: 59 CLS Outpatient STALIN PUGA DDS [id number] 10/08/2013 15:20:00 10/08/2013 23:59: 59 CLS Outpatient ANAYELI ROOFING SUPERVISOR DON S [id number] 10/08/2013 15:20:00 10/08/2013 23:59: 59 CLS Outpatient ANAYELI ROOFING SUPERVISOR, DON S [id number] 09/19/2013 11:31:00 09/19/2013 23:59: 59 CLS Outpatient ANAYELI ROOFING SUPERVISOR, DON S [id number] 09/18/2013 11:32:00 09/18/2013 23:59: 59 CLS Outpatient ANAYELI ROOFING SUPERVISOR, DON S [id number] 08/28/2013 13:40:00 08/28/2013 23:59: 59 CLS Outpatient KACIE DRIVER DDS [id number] 06/24/2013 10:57:00 06/24/2013 23:59: 59 CLS Outpatient ANAYELI ROOFING SUPERVISOR DON S [id number] 04/22/2013 14:28:00 04/22/2013 23:59: 59 CLS Outpatient MELISSA DAHL MD [id number] 10/30/2012 10:42:00 10/30/2012 23:59: 59 CLS Outpatient ANAYELI ROOFING SUPERVISOR DON S [id number] 09/19/2012 09:51:00 09/19/2012 23:59: 59 CLS Outpatient ANAYELI ROOFING SUPERVISOR, DON S [id number] 09/17/2012 10:37:00 09/17/2012 23:59: 59 CLS Outpatient [id number] 07/25/2012 15:19:00 07/25/2012 23:59: 59 CLS Outpatient DON GUADALUPE APRN [id number] 06/05/2012 13:36:00 06/05/2012 23:59:5 9 [facility] Outpatient DON GUADALUPE APRN [id number] 04/03/2013 14:55:00 Document Registration [id number] 02/22/2013 14:23:00 Document Registration
[2019-11-08 09:00] LABS: ALANINE AMINOTRANSFERASE 18 U/L (0-55); ALBUMIN 4.6 GM/DL (3.2-4.5); ALKALINE PHOSPHATASE 90 U/L (40-136); AMYLASE 47 U/L (25-125); BILIRUBIN,TOTAL 0.9 MG/DL (0.1-1.0); BUN/CREATININE RATIO 14; CALCIUM 9.2 MG/DL (8.5-10.1); CARBON DIOXIDE 21 MMOL/L (21-32); CHLORIDE 104 MMOL/L (98-107); CREATINE KINASE 59 U/L (29-168); CREATININE SERUM 0.79 MG/DL (0.60-1.30); GFR ESTIMATED > 60; GLUCOSE 135 MG/DL (70-105); LIPASE 44 U/L (8-78); MAGNESIUM 1.8 MG/DL (1.6-2.4); POTASSIUM 3.7 MMOL/L (3.6-5.0); SODIUM 138 MMOL/L (135-145); TOTAL PROTEIN 7.6 GM/DL (6.4-8.2)
[2019-11-08 09:01] LABS: SALICYLATE < 5.0 MG/DL (5.0-20.0)
[2019-11-08 09:03] LABS: PROTHROMBIN TIME PATIENT 13.8 SEC (12.2-14.7)
[2019-11-08 09:08] LABS: CREATINE KINASE MB 0.9 NG/ML (<6.6)
[2019-11-08 09:12] LABS: ACETAMINOPHEN < 10 UG/ML (10-30)
--- NOTE | 2019-11-08 09:17 | Diagnostic Imaging Report ---
INDICATION: Chest pain and fever. EXAMINATION: Single view chest dated 11/08/2019. COMPARISONS: 06/10/2017 FINDINGS: Heart is unremarkable. Pulmonary vasculature normal. There is atelectasis or scar at the left lung base. Questionable nodularities noted in the left upper lung. These are nonspecific and could be due to a small focus of developing pneumonia. The remaining chest is clear. Small nodules in the upper lung not excluded. No effusions or pneumothorax. IMPRESSION: 1. Nonspecific nodularity left upper lung, followup to assure resolution, recommended if this does not resolve subsequent CT may be warranted. Dictated by: Dictated on workstation # [id number]
[2019-11-08] MEDS ORDERED: LACTATED RINGERS 1,000 ML IV ONE (09:27)
[2019-11-08] MEDS ORDERED: AZITHROMYCIN 250 MG TAB (ZITHROMAX) PO ONE (09:30)
[2019-11-08] MEDS ORDERED: AZIT500T PO (09:38)
[2019-11-08] MEDS ORDERED: HYDR50CA PO (09:38)
[2019-11-08 09:49] LABS: BILIRUBIN,URINE NEGATIVE (NEGATIVE); CLARITY,URINE CLEAR; COLOR,URINE YELLOW; GLUCOSE, URINE (UA) NEGATIVE (NEGATIVE); KETONES,URINE NEGATIVE (NEGATIVE); LEUKOCYTE ESTERASE ,URINE NEGATIVE (NEGATIVE); NITRITE,URINE NEGATIVE (NEGATIVE); PH,URINE 6.5 (5-9); PROTEIN,URINE NEGATIVE (NEGATIVE)
[2019-11-08 09:57] LABS: BACTERIA,URINE FEW /HPF; WBC,URINE 0-2 /HPF
[2019-11-08 10:00] LABS: AMPHETAMINE SCREEN, URINE NEGATIVE (NEGATIVE); BARBITURATE SCREEN URINE NEGATIVE (NEGATIVE); BENZODIAZEPINES SCREEN URINE NEGATIVE (NEGATIVE); CANNABINOID SCREEN, URINE POSITIVE (NEGATIVE); COCAINE SCREEN URINE NEGATIVE (NEGATIVE); METHADONE STAT NEGATIVE (NEGATIVE); METHAMPHETAMINE SCREEN URINE S NEGATIVE (NEGATIVE); OPIATE SCREEN URINE NEGATIVE (NEGATIVE); OXYCODONE STAT NEGATIVE (NEGATIVE); PROPOXYPHENE STAT NEGATIVE (NEGATIVE); TRICYCLIC ANTIDEPRESSANTS SCRE NEGATIVE (NEGATIVE)
[2019-11-08 10:50] VITALS: BP 131/85
== END 2019-11-08 10:49 | disposition home or self-care (01) ==
LOC: EDUNIT# 07:51 → ER 07:54
DX: R50.9 Fever, unspecified (principal); F41.9 Anxiety disorder, unspecified; E78.00 Pure hypercholesterolemia, unspecified; K21.9 Gastro-esophageal reflux disease without esophagitis; K52.9 Noninfective gastroenteritis and colitis, unspecified; M19.91 Primary osteoarthritis, unspecified site; R73.03 Prediabetes; F43.10 Post-traumatic stress disorder, unspecified; F31.9 Bipolar disorder, unspecified
CPT/HCPCS: 36415; 71045; 80053; 80306; 80320; 80329; 81000; 82150; 82550; 82553; 82728; 83605; 83615; 83690; 83735; 83874; 83880; 84145; 84484; 85025; 85610; 85652; 85730; 86141; 86308; 87040; 87430; 87635; 93041

== ENCOUNTER 2020-04-08 13:20 | Emergency (ER) | payer MEDICAID ==
[~2020-04-08] VITALS: Ht 172 cm; Wt 93.8 kg
[~2020-04-08 13:20] MED LIST changes: +AZIT500T PO; -BENZ78AE2 TP; +BENZ78AE5 TP; +HYDR50CA PO
[2020-04-08] MEDS ORDERED: KETOROLAC 30 MG/ML VIAL IVP STA (14:14)
[2020-04-08] MEDS ORDERED: NS IV 1000 ML 1,000 ML IV SCH (14:19)
[2020-04-08] MEDS ORDERED: ONDANSETRON 4 MG/2 ML (SDV) Z0FRAN IVP ONE (14:30)
[2020-04-08 14:37] LABS: BILIRUBIN,URINE NEGATIVE (NEGATIVE); CLARITY,URINE CLEAR; COLOR,URINE YELLOW; GLUCOSE, URINE (UA) NEGATIVE (NEGATIVE); KETONES,URINE NEGATIVE (NEGATIVE); LEUKOCYTE ESTERASE ,URINE NEGATIVE (NEGATIVE); NITRITE,URINE NEGATIVE (NEGATIVE); PH,URINE 5.5 (5-9); PROTEIN,URINE NEGATIVE (NEGATIVE)
[2020-04-08 14:40] LABS: BASOPHILS % (AUTO) 0 % (0-10); EOSINOPHILS % (AUTO) 1 % (0-10); HEMATOCRIT 42 % (35-52); HEMOGLOBIN 14.5 G/DL (11.5-16.0); LYMPHOCYTES # (AUTO) 2.6 X 10^3 (1.0-4.0); LYMPHOCYTES % (AUTO) 39 % (12-44); MEAN CORPUSCULAR HEMOGLOBIN 32 PG (25-34); MEAN CORPUSCULAR HGB CONC 34 G/DL (32-36); MEAN CORPUSCULAR VOLUME 92 FL (80-99); MEAN PLATELET VOLUME 10.9 FL (7.4-10.4); MONOCYTES # (AUTO) 0.3 X 10^3 (0.0-1.0); MONOCYTES % (AUTO) 5 % (0-12); NEUTROPHILS # (AUTO) 3.8 X 10^3 (1.8-7.8); NEUTROPHILS % (AUTO) 56 % (42-75); PLATELET COUNT 222 10^3/uL (130-400); RED CELL DISTRIBUTION WIDTH 13.2 % (10.0-14.5); WHITE BLOOD COUNT 6.7 10^3/uL (4.3-11.0)
--- NOTE | 2020-04-08 14:41 | ED GU-Female ---
General Chief Complaint: - Urinary Stated Complaint: LOWER BACK PAIN;VOMITING Nursing Triage Note: pt presents to ed with complaints of flank pain. pt reports she was diagnosed with a kidney stone in february. reports her back pain has been getting worse the last 5 days. Nursing Sepsis Screen: No Definite Risk History of Present Illness Date Seen by Provider: Apr 08, 2020 Time Seen by Provider: 14:00 Initial Comments 54-year-old female presents for right flank pain, that has been present for approximately 6-8 weeks. She has been followed by her primary care provider for concerns of a renal stone. She denies passing any stones. She has been taking a muscle relaxant with no improvement. She had a CT yesterday at [facility] and hasn't been given her results. Her PCP called in hydrocodone for her and she went to pharmacy and then came here, she has not taken any for the pain. Timing/Duration: intermittent Severity/Quality: moderate Location: right flank Radiation: none Associated Symptoms: lower back pain, nausea/vomiting Allergies and Home Medications Allergies Coded Allergies: fentanyl (Verified Allergy, Severe, SEVERE N/V, 01/03/19) Onfgrwu-Ldn-Zbd Reductase Inhibitor (Verified Allergy, Mild, LEG CRAMPS, 01/03/19) Home Medications Alprazolam 1 Mg Tablet, 1 MG PO TID, (Reported) Amoxicillin 500 Mg Capsule, 500 MG PO QID, (Reported) Azithromycin 500 Mg Tablet, 500 MG PO DAILY Prescribed by: EMMY GREEN on 11/08/19 0938 Benzocaine/Menthol 78 Gm Aerosol, 78 GM TP QID Prescribed by: WING HUNTER on 05/22/18 1059 Cyclobenzaprine HCl 10 Mg Tablet, 10 MG PO Q8H PRN for SPASMS Prescribed by: LISA ADAMES on 01/03/19 1253 Hydrocodone/Acetaminophen 1 Each Tablet, 1 EACH PO Q6H Prescribed by: WING HUNTER on 05/22/18 1059 Hydroxyzine Pamoate 50 Mg Capsule, 50 MG PO Q6H Prescribed by: EMMY GREEN on 11/08/19 0938 Ibuprofen 600 Mg Tablet, 600 MG PO Q6H PRN for PAIN Prescribed by: WING HUNTER on 05/22/18 1059 Ondansetron 4 Mg Tab.rapdis, 4-8 MG PO Q6H PRN for NAUSEA/VOMITING Prescribed by: LISA ADAMES on 01/03/19 1253 Ondansetron 4 Mg Tab.rapdis, 4 MG PO Q6H PRN for NAUSEA/VOMITING Prescribed by: RILEY MELVIN on 04/08/20 1528 Patient Home Medication List Home Medication List Reviewed: Yes Review of Systems Review of Systems Constitutional: no symptoms reported, see HPI EENTM: see HPI, no symptoms reported; No blurred vision, No double vision, No eye pain, No vision loss Gastrointestinal: see HPI, nausea, vomiting Genitourinary: see HPI, flank pain : No (hysterectomy) All Other Systemes Reviewed Negative Unless Noted: Yes Past Cwrmlsp-Wbkvib-Xwaipr Hx Past Med/Social Hx: Reviewed Nursing Past Med/Soc Hx Patient Social History Alcohol Use: Denies Use Recreational Drug Use: Yes Drug of Choice: THC REGULAR USE;HX OF METH,COCAINE,PILLS,"EVERYTHING" Smoking Status: Current Everyday Smoker Type Used: Cigarettes Former Smoker, Quit: Oct 05, 2018 Recent Foreign Travel: No Contact w/Someone Who Travel: No Recent Infectious Disease Expo: No Recent Hopitalizations: No Physical Abuse: No Sexual Abuse: No Mistreated: No Fear: No Immunizations Up To Date Date of Influenza Vaccine: May 09, 2011 Seasonal Allergies Seasonal Allergies: Yes Past Medical History Surgeries: Yes (LOWER BACK SX, BILAT CTR, BILAT ELBOW, BILAT RCR, DXLS, ) Appendectomy, Hysterectomy, Oophorectomy, Orthopedic, Renal Respiratory: No Cardiac: Yes High Cholesterol, Irregular Heartbeat Neurological: Yes Headaches /Migraines 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 Disorders: No Female 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 Disorders: 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 Sexually Transmitted Disease: Yes (HPV) HIV/AIDS: No Genitourinary: Yes Kidney Stones, UTI-Chronic Gastrointestinal: Yes (ABDOMINAL PAIN, TARRY STOOLS) Gastroesophageal Reflux, Chronic Diarrhea, Irritable Bowel Musculoskeletal: Yes (MULTIPLE ORTHOPEDIC SURGERIES) Arthritis, Chronic Back Pain Endocrine: Yes (PRE DIABETIC) HEENT: Yes Loss of Vision: Bilateral Hearing Impairment: Denies Cancer: No Psychosocial: Yes (SEVERE MANIC DEPRESSIVE DISORDER) Anxiety, PTSD, Bipolar, Depression Integumentary: No Blood Disorders: No Adverse Reaction/Blood Tranf: No (N/A) Family Medical History Alcoholism 19 FATHER G8 BROTHER G8 SISTER Arthritis 19 MOTHER G8 SISTER Cardiovascular disease 19 FATHER G8 BROTHER Diabetes mellitus 19 FATHER G8 BROTHER G8 SISTER Drug abuse G8 BROTHER G8 SISTER FH: cancer 19 MOTHER (BREAST) Glaucoma 19 FATHER G8 SISTER Hypercholesterolemia 19 FATHER G8 BROTHER Hypertension 19 FATHER G8 BROTHER Myocardial infarction 19 FATHER Psychosocial problem 19 MOTHER G8 BROTHER G8 SISTER Respiratory disorder 19 FATHER Seizure disorder G8 SISTER Thyroid disease G8 SISTER No Pertinent Family Hx Physical Exam Vital Signs Vital Signs - First Documented 04/08/20 13:45 Temp 36.7 Pulse 93 Resp 18 B/P (MAP) 134/88 (103) Pulse Ox 98 Capillary Refill : Less Than 3 Seconds Height, Weight, BMI Height: 5'8.00" Weight: 202lbs. 0.0oz. 91.695561au; 31.00 BMI Method:Stated General Appearance: WD/WN, mild distress HEENT: PERRL/EOMI, normal ENT inspection, TMs normal, pharynx normal; No photophobia Neck: non-tender, full range of motion, supple, normal inspection Cardiovascular: normal peripheral pulses, regular rate, rhythm Respiratory: chest non-tender, lungs clear, normal breath sounds Gastrointestinal: normal bowel sounds, non tender, soft Back: normal inspection, CVA tenderness (R) Extremities: normal range of motion, non-tender, normal inspection, no pedal edema Neurologic/Psychiatric: no motor/sensory deficits, alert, normal mood/affect, oriented x 3 Skin: normal color, warm/dry Progress/Results/Core Measures Suspected Sepsis Recent Fever Within 48 Hours: No Infection Criteria Present: None New/Unexplained Altered Menta: No Sepsis Screen: No Definite Risk SIRS Temperature: Pulse: 93 Respiratory Rate: 18 Laboratory Tests 04/08/20 13:42: White Blood Count 6.7 Blood Pressure 134 /88 Mean: 103 Laboratory Tests 04/08/20 13:42: Creatinine 0.73, Platelet Count 222, Total Bilirubin 0.6 Results/Orders Lab Results Laboratory Tests Test 04/08/20 13:42 04/08/20 14:30 Range/Units White Blood Count 6.7 4.3-11.0 10^3/uL Red Blood Count 4.58 4.35-5.85 10^6/uL Hemoglobin 14.5 11.5-16.0 G/DL Hematocrit 42 35-52 % Mean Corpuscular Volume 92 80-99 FL Mean Corpuscular Hemoglobin 32 25-34 PG Mean Corpuscular Hemoglobin Concent 34 32-36 G/DL Red Cell Distribution Width 13.2 10.0-14.5 % Platelet Count 222 130-400 10^3/uL Mean Platelet Volume 10.9 H 7.4-10.4 FL Neutrophils (%) (Auto) 56 42-75 % Lymphocytes (%) (Auto) 39 12-44 % Monocytes (%) (Auto) 5 0-12 % Eosinophils (%) (Auto) 1 0-10 % Basophils (%) (Auto) 0 0-10 % Neutrophils # (Auto) 3.8 1.8-7.8 X 10^3 Lymphocytes # (Auto) 2.6 1.0-4.0 X 10^3 Monocytes # (Auto) 0.3 0.0-1.0 X 10^3 Eosinophils # (Auto) 0.0 0.0-0.3 10^3/uL Basophils # (Auto) 0.0 0.0-0.1 10^3/uL Sodium Level 141 135-145 MMOL/L Potassium Level 3.9 3.6-5.0 MMOL/L Chloride Level 107 98-107 MMOL/L Carbon Dioxide Level 24 21-32 MMOL/L Anion Gap 10 5-14 MMOL/L Blood Urea Nitrogen 13 7-18 MG/DL Creatinine 0.73 0.60-1.30 MG/DL Estimat Glomerular Filtration Rate > 60 BUN/Creatinine Ratio 18 Glucose Level 115 H 70-105 MG/DL Calcium Level 9.2 8.5-10.1 MG/DL Corrected Calcium 8.9 8.5-10.1 MG/DL Total Bilirubin 0.6 0.1-1.0 MG/DL Aspartate Amino Transf (AST/SGOT) 22 5-34 U/L Alanine Aminotransferase (ALT/SGPT) 21 0-55 U/L Alkaline Phosphatase 111 40-136 U/L Total Protein 7.3 6.4-8.2 GM/DL Albumin 4.4 3.2-4.5 GM/DL Urine Color YELLOW Urine Clarity CLEAR Urine pH 5.5 5-9 Urine Specific [place] >=1.030 1.016-1.022 Urine Protein NEGATIVE NEGATIVE Urine Glucose (UA) NEGATIVE NEGATIVE Urine Ketones NEGATIVE NEGATIVE Urine Nitrite NEGATIVE NEGATIVE Urine Bilirubin NEGATIVE NEGATIVE Urine Urobilinogen 0.2 < = 1.0 MG/DL Urine Leukocyte Esterase NEGATIVE NEGATIVE Urine RBC (Auto) TRACE-I NEGATIVE Urine RBC 0-2 /HPF Urine WBC 0-2 /HPF Urine Squamous Epithelial Cells 5-10 /HPF Urine Crystals NONE /LPF Urine Bacteria FEW H /HPF Urine Casts NONE /LPF Urine Mucus SMALL H /LPF Urine Culture Indicated YES My Orders Orders - RILEY MELVIN EMEKA Ua Culture If Indicated (04/08/20 13:21) Ketorolac Injection (Toradol Injection) (04/08/20 14:14) Ondansetron Injection (Zofran Injectio (04/08/20 14:30) Ed Iv/Invasive Line Start (04/08/20 14:19) Ns Iv 1000 Ml (Sodium Chloride 0.9%) (04/08/20 14:19) Cbc With Automated Diff (04/08/20 14:35) Comprehensive Metabolic Panel (04/08/20 14:35) Urine Culture (04/08/20 14:30) Phenazopyridine Tablet (Pyridium Tablet) (04/08/20 15:00) Hydrocodone/Apap 5/325 Tablet (Lortab 5 (04/08/20 15:45) Medications Given in ED Current Medications Medications Dose Ordered Sig/[place] Route Start Time Stop Time Status Last Admin Dose Admin Acetaminophen/ Hydrocodone Bitart 1 tab ONCE ONCE PO 04/08/20 15:45 04/08/20 15:46 DC 04/08/20 15:40 1 TAB Ondansetron HCl 4 mg ONCE ONCE IVP 04/08/20 14:30 04/08/20 14:31 DC 04/08/20 14:28 4 MG Phenazopyridine HCl 100 mg ONCE ONCE PO 04/08/20 15:00 04/08/20 15:01 DC 04/08/20 15:12 100 MG Vital Signs/I&O 04/08/20 04/08/20 13:45 15:48 Temp 36.7 Pulse 93 84 Resp 18 16 B/P (MAP) 134/88 (103) 132/90 Pulse Ox 98 98 Capillary Refill : Less Than 3 Seconds Blood Pressure Mean: 103 Progress Note : Time: 14:00 Progress Note Patient seen and evaluated. Will obtain labs, Toradol 30 mg IV for pain and Zofran for nausea. We'll give 1 L normal saline per IV. 1435 received report from [facility] on CT of the abdomen and pelvis that was completed on 04/07/20 which showed a 2 mm calculus in the distal right ureter that is minimally obstructing with a minor amount of right hydronephrosis no other significant abnormalities. These results were discussed with the patient and she has not received her CT findings at. 1500 Labs reviewed, patient reports minimal improvement, lower abd pressure. Will give Pyridium 100 mg orally. 1515 patient complaining of pain, will give hydrocodone for pain and reevaluate. 1530 patient reports improvement in symptoms, discharge instructions and return precautions reviewed with her. Departure Impression Primary Impression: Right ureteral calculus Additional Impressions: Flank pain Nausea Disposition: HOME, SELF-CARE Condition: Improved Departure-Patient Inst. Decision time for Depature: 15:30 Referrals: RK FU JR, MD (PCP) Primary Care Physician KALPANA RODRIGUES MD Patient Instructions: Kidney Stones (DC) Add. Discharge Instructions: Continue to take the pain medication as prescribed by your primary care provider. You may also add ibuprofen 600 mg every 8 hours. Take Zofran every 8 hours as needed for nausea and vomiting. Increase water intake, 16 ounces every 2 hours while awake. Strain your urine. Follow-up with Dr. Rodrigues if symptoms are not improving or worsen. Return to Emergency Dept for new, urgent healthcare needs. All discharge instructions reviewed with patient and/or family. Voiced understanding. Scripts Ondansetron (Ondansetron Odt) 4 Mg Tab.rapdis 4 MG PO Q6H PRN for NAUSEA/VOMITING, #12 TAB 0 Refills Prov: RILEY MELVIN 04/08/20 Copy Copies To 1: KALPANA RODRIGUES MD, AMY ARNP Apr 08, 2020 14:40
[2020-04-08 14:44] LABS: ALBUMIN 4.4 GM/DL (3.2-4.5)
[2020-04-08 14:44] LABS: BACTERIA,URINE FEW /HPF; RBC,URINE 0-2 /HPF; WBC,URINE 0-2 /HPF
[2020-04-08 14:45] LABS: CHLORIDE 107 MMOL/L (98-107); POTASSIUM 3.9 MMOL/L (3.6-5.0); SODIUM 141 MMOL/L (135-145)
[2020-04-08 14:46] LABS: CALCIUM 9.2 MG/DL (8.5-10.1)
[2020-04-08 14:47] LABS: GLUCOSE 115 MG/DL (70-105); TOTAL PROTEIN 7.3 GM/DL (6.4-8.2)
[2020-04-08 14:48] LABS: CARBON DIOXIDE 24 MMOL/L (21-32)
[2020-04-08 14:49] LABS: BILIRUBIN,TOTAL 0.6 MG/DL (0.1-1.0)
[2020-04-08 14:51] LABS: ALKALINE PHOSPHATASE 111 U/L (40-136); CREATININE SERUM 0.73 MG/DL (0.60-1.30); GFR ESTIMATED > 60
[2020-04-08 14:52] LABS: BUN/CREATININE RATIO 18
[2020-04-08 14:54] LABS: ALANINE AMINOTRANSFERASE 21 U/L (0-55)
[2020-04-08] MEDS ORDERED: PHENAZOPYRIDINE 100 MG (PYRIDIUM) TABLET PO ONE (15:00)
[2020-04-08] MEDS ORDERED: ONDA4TAB11 PO (15:28)
[2020-04-08] MEDS ORDERED: HYDROcodone/APAP 5 MG/325 MG (LORTAB) TAB PO ONE (15:45)
[2020-04-08 15:48] VITALS: BP 132/90
== END 2020-04-08 15:48 | disposition home or self-care (01) ==
LOC: EDUNIT# 13:20 → ER 13:21
DX: N13.2 Hydronephrosis with renal and ureteral calculous obstruction (principal); R10.9 Unspecified abdominal pain; R11.0 Nausea; F41.9 Anxiety disorder, unspecified; F17.210 Nicotine dependence, cigarettes, uncomplicated; Z88.6 Allergy status to analgesic agent; Z88.8 Allergy status to other drugs, medicaments and biological substances; Z80.3 Family history of malignant neoplasm of breast; Z82.49 Family history of ischemic heart disease and other diseases of the circulatory system
CPT/HCPCS: 36415; 80053; 81000; 85025; 87088

== ENCOUNTER → 2020-11-02 | Outpatient (CLI) | payer MEDICAID | LOC: RAD 10:04 | PROVIDERS: ATTEND Family Medicine | DX: Z12.31 Encounter for screening mammogram for malignant neoplasm of breast (principal) | CPT/HCPCS: 77063; 77067 ==

== ENCOUNTER 2020-12-08 07:07 | Day surgery (SDC) | payer MEDICAID ==
[~2020-12-08] VITALS: Ht 165.1 cm; Wt 93.1 kg
[2020-12-08] VITALS (9 sets, daily range): BP systolic 105–133; BP diastolic 75–99
[2020-12-08] MEDS ORDERED: morphine INJ 10 MG/ML 1ML (SYR OR VIAL) ONE (07:12)
[2020-12-08] MEDS ORDERED: ONDANSETRON 4 MG/2 ML (SDV) Z0FRAN IVP ONE (07:15)
[2020-12-08] MEDS ORDERED: morphine INJ 10 MG/ML 1ML (SYR OR VIAL) IVP STA ×2 (07:15→07:32)
[2020-12-08 07:23] LABS: BASOPHILS # (AUTO) 0.1 10^3/uL (0.0-0.1); BASOPHILS % (AUTO) 1 % (0-10); EOSINOPHILS # (AUTO) 0.1 10^3/uL (0.0-0.3); EOSINOPHILS % (AUTO) 1 % (0-10); HEMATOCRIT 45 % (35-52); HEMOGLOBIN 14.5 g/dL (11.5-16.0); LYMPHOCYTES # (AUTO) 2.8 10^3/uL (1.0-4.0); LYMPHOCYTES % (AUTO) 31 % (12-44); MEAN CORPUSCULAR HEMOGLOBIN 31 pg (25-34); MEAN CORPUSCULAR HGB CONC 33 g/dL (32-36); MEAN CORPUSCULAR VOLUME 96 fL (80-99); MEAN PLATELET VOLUME 9.7 fL (9.0-12.2); MONOCYTES # (AUTO) 0.5 10^3/uL (0.0-1.0); MONOCYTES % (AUTO) 5 % (0-12); NEUTROPHILS # (AUTO) 5.6 10^3/uL (1.8-7.8); NEUTROPHILS % (AUTO) 62 % (42-75); PLATELET COUNT 297 10^3/uL (130-400); WHITE BLOOD COUNT 8.9 10^3/uL (4.3-11.0)
--- NOTE | 2020-12-08 07:28 | ED Abdominal Pain ---
General Stated Complaint: RLQ PAIN Source of Information: Patient Exam Limitations: No Limitations History of Present Illness Date Seen by Provider: December 08, 2020 Time Seen by Provider: 07:06 Initial Comments Patient presents to the ER by private conveyance from home with chief complaint of being awoken within the past hour with some severe right-sided flank and abdominal pain radiating down to her right groin. She has a history of kidney stones but states that this is unlike it. She is writhing in the bed and rates it as 10 out of 10 severe pain. She has not taken anything for it. No vomiting fever or chills but she says she has had some sweats. She has a history of a twisted colon, hysterectomy, appendectomy, discectomy in her low spine. She says she tried to pass a bowel movement thinking that that would make it feel better but was unable to. Her last bowel movement was yesterday. Allergies and Home Medications Allergies Coded Allergies: fentanyl (Verified Allergy, Severe, SEVERE N/V, 01/03/19) Nckqynp-Qpt-Egt Reductase Inhibitor (Verified Allergy, Mild, LEG CRAMPS, 01/03/19) Home Medications Alprazolam 1 Mg Tablet, 1 MG PO TID, (Reported) Amoxicillin 500 Mg Capsule, 500 MG PO QID, (Reported) Azithromycin 500 Mg Tablet, 500 MG PO DAILY Prescribed by: EMMY GREEN on 11/08/19 0938 Benzocaine/Menthol 78 Gm Aerosol, 78 GM TP QID Prescribed by: WING HUNTER on 05/22/18 1059 Cyclobenzaprine HCl 10 Mg Tablet, 10 MG PO Q8H PRN for SPASMS Prescribed by: JUSTIN MEJIA on 01/03/19 1253 Hydrocodone/Acetaminophen 1 Each Tablet, 1 EACH PO Q6H Prescribed by: WING HUNTER on 05/22/18 1059 Hydroxyzine Pamoate 50 Mg Capsule, 50 MG PO Q6H Prescribed by: EMMY GREEN on 11/08/19 0938 Ibuprofen 600 Mg Tablet, 600 MG PO Q6H PRN for PAIN Prescribed by: WING HUNTER on 05/22/18 1059 Ondansetron 4 Mg Tab.rapdis, 4-8 MG PO Q6H PRN for NAUSEA/VOMITING Prescribed by: JUSTIN MEJIA on 01/03/19 1253 Ondansetron 4 Mg Tab.rapdis, 4 MG PO Q6H PRN for NAUSEA/VOMITING Prescribed by: RILEY MLEVIN on 04/08/20 1528 Patient Home Medication List Home Medication List Reviewed: Yes Review of Systems Review of Systems Constitutional: No chills, No diaphoresis EENTM: No Blurred Vision, No Double Vision Respiratory: Denies Cough, Denies Shortness of Air Cardiovascular: Denies Chest Pain, Denies Lightheadedness Gastrointestinal: Denies Constipated, Denies Nausea, Denies Vomiting Genitourinary: Denies Burning, Denies Discharge, Denies Drainage Musculoskeletal: No back pain, No joint pain Skin: No pruritus, No rash Psychiatric/Neurological: Denies Headache, Denies Numbness All Other Systems Reviewed Negative Unless Noted: Yes Past Rjuffla-Ddaxce-Vwuums Hx Patient Social History Drug of Choice: THC REGULAR USE;HX OF METH,COCAINE,PILLS,"EVERYTHING" Type Used: Cigarettes Former Smoker, Quit: Oct 05, 2018 Recent Hopitalizations: No Immunizations Up To Date Date of Influenza Vaccine: May 09, 2011 Seasonal Allergies Seasonal Allergies: Yes Past Medical History Surgeries: Yes (LOWER BACK SX, BILAT CTR, BILAT ELBOW, BILAT RCR, DXLS, ) Appendectomy, Hysterectomy, Oophorectomy, Orthopedic, Renal Respiratory: No Cardiac: Yes High Cholesterol, Irregular Heartbeat Neurological: Yes Headaches /Migraines 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 Disorders: No Female 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 Disorders: 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 Sexually Transmitted Disease: Yes (HPV) HIV/AIDS: No Genitourinary: Yes Kidney Stones, UTI-Chronic Gastrointestinal: Yes (ABDOMINAL PAIN, TARRY STOOLS) Gastroesophageal Reflux, Chronic Diarrhea, Irritable Bowel Musculoskeletal: Yes (MULTIPLE ORTHOPEDIC SURGERIES) Arthritis, Chronic Back Pain Endocrine: Yes (PRE DIABETIC) HEENT: Yes Loss of Vision: Bilateral Hearing Impairment: Denies Cancer: No Psychosocial: Yes (SEVERE MANIC DEPRESSIVE DISORDER) Anxiety, PTSD, Bipolar, Depression Integumentary: No Blood Disorders: No Adverse Reaction/Blood Tranf: No (N/A) Family Medical History Alcoholism 19 FATHER G8 BROTHER G8 SISTER Arthritis 19 MOTHER G8 SISTER Cardiovascular disease 19 FATHER G8 BROTHER Diabetes mellitus 19 FATHER G8 BROTHER G8 SISTER Drug abuse G8 BROTHER G8 SISTER FH: cancer 19 MOTHER (BREAST) Glaucoma 19 FATHER G8 SISTER Hypercholesterolemia 19 FATHER G8 BROTHER Hypertension 19 FATHER G8 BROTHER Myocardial infarction 19 FATHER Psychosocial problem 19 MOTHER G8 BROTHER G8 SISTER Respiratory disorder 19 FATHER Seizure disorder G8 SISTER Thyroid disease G8 SISTER No Pertinent Family Hx Physical Exam Vital Signs Vital Signs - First Documented 12/08/20 07:12 Temp 36.4 Pulse 92 Resp 15 B/P (MAP) 141/101 (114) Pulse Ox 98 Capillary Refill : Height/Weight/BMI Height: 5'8.00" Weight: 202lbs. 0.0oz. 91.441424jh; 31.00 BMI Method:Stated General Appearance: WD/WN, no apparent distress HEENT: PERRL/EOMI; No pharynx normal (Oropharynx is dry) Neck: full range of motion, normal inspection Respiratory: lungs clear, normal breath sounds, no respiratory distress, no accessory muscle use Cardiovascular: normal peripheral pulses, regular rate, rhythm Gastrointestinal: normal bowel sounds, soft, guarding, tenderness (Right-sided pain writing) Extremities: normal range of motion, normal capillary refill Back: normal inspection, CVA tenderness (R); No CVA tenderness (L) Neurologic/Psychiatric: alert, oriented x 3, other (Anxious, painful affect) Skin: normal color, warm/dry Progress/Results/Core Measures Results/Orders Lab Results Laboratory Tests Test 12/08/20 07:18 Range/Units White Blood Count 8.9 4.3-11.0 10^3/uL Red Blood Count 4.67 3.80-5.11 10^6/uL Hemoglobin 14.5 11.5-16.0 g/dL Hematocrit 45 35-52 % Mean Corpuscular Volume 96 80-99 fL Mean Corpuscular Hemoglobin 31 25-34 pg Mean Corpuscular Hemoglobin Concent 33 32-36 g/dL Red Cell Distribution Width 12.5 10.0-14.5 % Platelet Count 297 130-400 10^3/uL Mean Platelet Volume 9.7 9.0-12.2 fL Immature Granulocyte % (Auto) 0 % Neutrophils (%) (Auto) 62 42-75 % Lymphocytes (%) (Auto) 31 12-44 % Monocytes (%) (Auto) 5 0-12 % Eosinophils (%) (Auto) 1 0-10 % Basophils (%) (Auto) 1 0-10 % Neutrophils # (Auto) 5.6 1.8-7.8 10^3/uL Lymphocytes # (Auto) 2.8 1.0-4.0 10^3/uL Monocytes # (Auto) 0.5 0.0-1.0 10^3/uL Eosinophils # (Auto) 0.1 0.0-0.3 10^3/uL Basophils # (Auto) 0.1 0.0-0.1 10^3/uL Immature Granulocyte # (Auto) 0.0 0.0-0.1 10^3/uL Sodium Level 141 135-145 MMOL/L Potassium Level 3.8 3.6-5.0 MMOL/L Chloride Level 104 98-107 MMOL/L Carbon Dioxide Level 25 21-32 MMOL/L Anion Gap 12 5-14 MMOL/L Blood Urea Nitrogen 13 7-18 MG/DL Creatinine 0.85 0.60-1.30 MG/DL Estimat Glomerular Filtration Rate > 60 BUN/Creatinine Ratio 15 Glucose Level 176 H 70-105 MG/DL Calcium Level 9.3 8.5-10.1 MG/DL Corrected Calcium 8.9 8.5-10.1 MG/DL Total Bilirubin 0.7 0.1-1.0 MG/DL Aspartate Amino Transf (AST/SGOT) 23 5-34 U/L Alanine Aminotransferase (ALT/SGPT) 29 0-55 U/L Alkaline Phosphatase 123 40-136 U/L C-Reactive Protein High Sensitivity 0.47 0.00-0.50 MG/DL Total Protein 7.6 6.4-8.2 GM/DL Albumin 4.5 3.2-4.5 GM/DL Lipase 31 8-78 U/L My Orders Orders - JUSTIN MEJIA Ua Culture If Indicated (12/08/20 07:11) Cbc With Automated Diff (12/08/20 07:15) Comprehensive Metabolic Panel (12/08/20 07:15) Hs C Reactive Protein (12/08/20 07:15) Morphine Injection (Morphine Injection (12/08/20 07:15) Ondansetron Injection (Zofran Injectio (12/08/20 07:15) Lipase (12/08/20 07:15) Lactated Ringers (Lr 1000 Ml Iv Solution (12/08/20 07:30) Ct Abdomen/Pelvis W Wo (12/08/20 07:18) Morphine Injection (Morphine Injection (12/08/20 07:12) Drug Screen Stat (Urine) (12/08/20 07:32) Morphine Injection (Morphine Injection (12/08/20 07:32) Hydromorphone Injection (Dilaudid Inject (12/08/20 08:15) Ketamine Syringe (Ed Only) (Ketamine Syr (12/08/20 08:15) Iohexol Injection (Omnipaque 350 Mg/Ml 1 (12/08/20 08:15) Received Contrast (Hold Metformin- Contr (12/08/20 08:15) Ns (Ivpb) (Sodium Chloride 0.9% Ivpb Bag (12/08/20 08:15) Ketorolac Injection (Toradol Injection) (12/08/20 08:45) Abdomen/Kub 1view (12/08/20 09:29) Medications Given in ED Current Medications Medications Dose Ordered Sig/[place] Route Start Time Stop Time Status Last Admin Dose Admin Hydromorphone HCl 0.5 mg ONCE ONCE IV 12/08/20 08:15 12/08/20 08:16 DC 12/08/20 08:23 0.5 MG Iohexol 100 ml ONCE ONCE IV 12/08/20 08:15 12/08/20 08:36 DC 12/08/20 08:15 100 ML Ketorolac Tromethamine 30 mg ONCE ONCE IVP 12/08/20 08:45 12/08/20 08:46 DC 12/08/20 08:51 30 MG Lactated Ringer's 1,000 ml @ 0 mls/hr Q0M ONCE IV 12/08/20 07:30 12/08/20 07:31 DC 12/08/20 07:28 1,000 MLS/HR Ondansetron HCl 4 mg ONCE ONCE IVP 12/08/20 07:15 12/08/20 07:19 DC 12/08/20 07:28 8 MG Sodium Chloride 100 ml ONCE ONCE IV 12/08/20 08:15 12/08/20 08:36 DC 12/08/20 08:15 100 ML Vital Signs/I&O 12/08/20 07:12 Temp 36.4 Pulse 92 Resp 15 B/P (MAP) 141/101 (114) Pulse Ox 98 Progress Progress Note #1: Time: 07:30 Progress Note Strongly suspect a kidney stone however she says she is not passing gas and having difficulty with bowel movement so a bowel obstruction is also a possibility. Less likely mesenteric ischemia or similar problem. Plan to give her a liter of fluids, 8 of Zofran, 6 of morphine and get a CT with and without IV contrast. Progress Note #2: Time: 08:37 Progress Note 10 of morphine and half milligram Dilaudid were given. We see the CT evident ureteral stone so we will give her some Toradol and see how that helps her pain. Her pain is slowly getting better. Her nausea is better after 8 of Zofran. Progress Note #3: Time: 10:02 Progress Note Did not end up needing to use ketamine. Patient's pain is under better control after Toradol. Dr. Jacinto down to the ER to see the patient got a KUB and plan to take her to outpatient surgery after we dismiss her for lithotripsy/procedural intervention. Diagnostic Imaging Diagonstic Imaging: CT (With and without IV contrast) Plain Films/CT/US/NM/MRI: abdomen, pelvis Comments NAME: BRIGIDO SIGALA [facility] REC#: [id number] PT STATUS: REG ER : 1965 PHYSICIAN: JUSTIN MEJIA MD ADMIT DATE: 12/08/20/ER Draft Date of Exam:12/08/20 CT ABDOMEN/PELVIS W WO PROCEDURE: CT abdomen and pelvis with and without contrast. TECHNIQUE: Precontrast acquisitions were acquired through the abdomen and pelvis. Multiple contiguous axial images were obtained through the abdomen and pelvis after the administration of intravenous contrast. Auto Exposure Controls were utilized during the CT exam to meet ALARA standards for radiation dose reduction. INDICATION: Right lower quadrant pain The previous CT abdomen/pelvis exam of 01/03/2019 noted nonobstructive calculi involving the right kidney. There is no sign for nephrolithiasis on the left nor is there any sign of urolithiasis of either kidney. In the interval since the prior study a 3-4 mm calculus has migrated into the midportion of the right ureter at approximate level L4. The ureter proximal to the calculus and the renal pelvis are slightly dilated consistent with partial obstruction by the aforementioned calculus. There is no other obstructive calculus identified. There is a small 2 mm calcific density along the path of the right ureter at the level of the sacral promontory (image 59 of 193). This finding is also present on the prior study consequently unlikely related to a ureteral stone. There are still at least 2 minute nonobstructive calculus in the inferior pole of the right kidney as well as a 3-4 calculus in the midportion of the left kidney. There is no sign of obstruction left collecting system. There is no pelvic mass or free fluid collection noted. As noted on the prior exam the uterus is surgically absent. The urinary bladder is grossly unremarkable. There are few diverticula in the sigmoid colon but there is no sign of acute diverticulitis. The appendix was not well-visualized but there are no indirect signs of acute appendicitis. The liver, spleen, pancreas, adrenals, gallbladder, aorta and inferior vena cava and portal vein show no sign of an acute abnormality. Stomach is filled with fluid and difficult to assess. The lung bases are clear. The bone windows show no evidence for a fracture or for a destructive lesion. The postsurgical changes at L4-L5 and S1 seen previously are again evident. Impression: 1. There is partial obstruction of the right collecting system due to a 3-4 mm calculus in the midportion of the right ureter. There are also small nonobstructive calculi within both kidneys. 2. There is no acute abnormality of the abdomen or pelvis noted otherwise. 3. These results were discussed with Justin Mejia in the Emergency Room. Dictated on workstation # [id number] Dict: 12/08/20 0812 Trans: 12/08/[address] [facility] [id number] Interpreted by: UCHE HERNANDEZ MD Electronically signed by: Reviewed: Reviewed by Me Departure Impression Primary Impression: Ureteral calculus, right Disposition: 01 HOME, SELF-CARE Condition: Stable Departure-Patient Inst. Decision time for Depature: 08:38 Referrals: LEAH SPARKS MD (PCP) Primary Care Physician KALPANA JACINTO MD Patient Instructions: Kidney Stones (DC) Add. Discharge Instructions: Hydrocodone 1 to 2 tablets every 4 hours as necessary for breakthrough pain. Ibuprofen 800 mg every 8 hours as necessary for pain. Ondansetron/Zofran 1 tablet every 6 hours under the tongue as necessary for nausea and/or vomiting. Flomax 1 tablet every day until you pass the stone. Keflex 1 capsule twice a day for the next week to prevent infection. Go straight from here to day surgery with Dr. Jacinto for lithotripsy. JUSTIN MEJIA December 08, 2020 07:27
[2020-12-08] MEDS ORDERED: LACTATED RINGERS 1,000 ML IV ONE (07:30)
[2020-12-08 07:36] LABS: ALBUMIN 4.5 GM/DL (3.2-4.5); CHLORIDE 104 MMOL/L (98-107); POTASSIUM 3.8 MMOL/L (3.6-5.0); SODIUM 141 MMOL/L (135-145)
[2020-12-08 07:37] LABS: CALCIUM 9.3 MG/DL (8.5-10.1)
[2020-12-08 07:38] LABS: GLUCOSE 176 MG/DL (70-105); TOTAL PROTEIN 7.6 GM/DL (6.4-8.2)
[2020-12-08 07:39] LABS: CARBON DIOXIDE 25 MMOL/L (21-32)
[2020-12-08 07:40] LABS: BILIRUBIN,TOTAL 0.7 MG/DL (0.1-1.0)
[2020-12-08 07:42] LABS: ALKALINE PHOSPHATASE 123 U/L (40-136); CREATININE SERUM 0.85 MG/DL (0.60-1.30); GFR ESTIMATED > 60
[2020-12-08 07:43] LABS: BUN/CREATININE RATIO 15
[2020-12-08 07:45] LABS: ALANINE AMINOTRANSFERASE 29 U/L (0-55); LIPASE 31 U/L (8-78)
[2020-12-08] MEDS ORDERED: IOHEXOL 350 MG/ML 100 ML (OMNIPAQUE 350) VIAL IV ONE (08:15)
[2020-12-08] MEDS ORDERED: KETAMINE/NaCl 50 MG/5 ML SYRINGE (ED ONLY) IV ONE (08:15)
[2020-12-08] MEDS ORDERED: HOLD METFORMIN - RECEIVED CONTRAST 20 ML VIAL IV SCH (08:15)
[2020-12-08] MEDS ORDERED: NS 100 ML (IVPB) BAG IV ONE (08:15)
[2020-12-08] MEDS ORDERED: HYDROmorphone 2 MG/ML VIAL (DILAUDID) IV ONE (08:15)
--- NOTE | 2020-12-08 08:29 | Diagnostic Imaging Report ---
PROCEDURE: CT abdomen and pelvis with and without contrast. TECHNIQUE: Precontrast acquisitions were acquired through the abdomen and pelvis. Multiple contiguous axial images were obtained through the abdomen and pelvis after the administration of intravenous contrast. Auto Exposure Controls were utilized during the CT exam to meet ALARA standards for radiation dose reduction. INDICATION: Right lower quadrant pain The previous CT abdomen/pelvis exam of 01/03/2019 noted nonobstructive calculi involving the right kidney. There is no sign for nephrolithiasis on the left nor is there any sign of urolithiasis of either kidney. In the interval since the prior study a 3-4 mm calculus has migrated into the midportion of the right ureter at approximate level L4. The ureter proximal to the calculus and the renal pelvis are slightly dilated consistent with partial obstruction by the aforementioned calculus. There is no other obstructive calculus identified. There is a small 2 mm calcific density along the path of the right ureter at the level of the sacral promontory (image 59 of 193). This finding is also present on the prior study consequently unlikely related to a ureteral stone. There are still at least 2 minute nonobstructive calculus in the inferior pole of the right kidney as well as a 3-4 calculus in the midportion of the left kidney. There is no sign of obstruction left collecting system. There is no pelvic mass or free fluid collection noted. As noted on the prior exam the uterus is surgically absent. The urinary bladder is grossly unremarkable. There are few diverticula in the sigmoid colon but there is no sign of acute diverticulitis. The appendix was not well-visualized but there are no indirect signs of acute appendicitis. The liver, spleen, pancreas, adrenals, gallbladder, aorta and inferior vena cava and portal vein show no sign of an acute abnormality. Stomach is filled with fluid and difficult to assess. The lung bases are clear. The bone windows show no evidence for a fracture or for a destructive lesion. The postsurgical changes at L4-L5 and S1 seen previously are again evident. Impression: 1. There is partial obstruction of the right collecting system due to a 3-4 mm calculus in the midportion of the right ureter. There are also small nonobstructive calculi within both kidneys. 2. There is no acute abnormality of the abdomen or pelvis noted otherwise. 3. These results were discussed with Justin Mejia in the Emergency Room. Dictated by: Dictated on workstation # [id number]
[2020-12-08] MEDS ORDERED: KETOROLAC 30 MG/ML VIAL IVP ONE (08:45)
--- NOTE | 2020-12-08 09:55 | Diagnostic Imaging Report ---
INDICATION: Abdominal pain. History of kidney stone. COMPARISON: CT from earlier same day FINDINGS: 2 supine radiographic views of the abdomen were obtained. There is contrast within the bilateral renal collecting systems. Note is made of moderate asymmetric hydronephrosis on the right. There is also mild proximal hydroureter. Middle and distal right ureter are decompressed. Transition point appears to correspond to location of calculus seen on CT from earlier same day. Small bowel loops are nondistended. There is no large collection of free intraperitoneal air. IMPRESSION: 1. Moderate right-sided hydronephrosis with transition point in the proximal right ureter corresponding to renal calculus seen on CT from earlier same day. Dictated by: Dictated on workstation # [id number]
[2020-12-08] MEDS ORDERED: cefTRIAXone FOR IV USE 1,000 MG in WATER (STERILE) FOR INJECTION 10 ML IV ONE (10:00)
--- NOTE | 2020-12-08 10:13 | Progress Note-Pre Operative ---
Pre-Operative Progress Note H&P Reviewed The H&P was reviewed, patient examined and no changes noted. Date Seen by Provider: December 08, 2020 Time Seen by Provider: 10:12 Date H&P Reviewed: December 08, 2020 Time H&P Reviewed: 10:12 Pre-Operative Diagnosis: RT PROXIMAL URETERAL STONE KALPANA JACINTO MD December 08, 2020 10:13
[2020-12-08] MEDS ORDERED: LACTATED RINGERS 1,000 ML IV PRN (10:15)
[2020-12-08] MEDS ORDERED: proPOfol 200 MG/20 ML (DIPRIVAN) VIAL IV ONE (10:16)
[2020-12-08] MEDS ORDERED: LIDOCAINE PF 2% 5 ML (XYLOCAINE) VIAL ONE (10:16)
[2020-12-08] MEDS ORDERED: MIDAZOLAM 2 MG/2 ML (VERSED) VIAL ONE (10:16)
[2020-12-08] MEDS ORDERED: ONDANSETRON 4 MG/2 ML (SDV) Z0FRAN ONE (10:16)
[2020-12-08] MEDS ORDERED: SEVOFLURANE (ULTANE) 15 ML INHAL SOLN ONE (10:17)
[2020-12-08] MEDS ORDERED: KETOROLAC 30 MG/ML VIAL ONE (10:17)
[2020-12-08] MEDS ORDERED: FUROSEMIDE 40 MG/4 ML INJ (LASIX) ONE (10:17)
[2020-12-08] MEDS ORDERED: SUCCINYLCHOLINE INJ 100 MG/5 ML SYR/VIAL ONE (10:21)
--- NOTE | 2020-12-08 10:35 | Progress Note-Post Operative ---
Post-Operative Progess Note Surgeon (s)/Code Machine Operator (s) Surgeon KALPANA JACINTO MD Code Machine Operator: NONE Pre-Operative Diagnosis RT PROXIMAL URETERAL STONE Post-Operative Diagnosis SAME Procedure & Operative Findings Date of Procedure 12/08/20 Procedure Performed/Findings RT ESWL Anesthesia Type GENERAL Estimated Blood Loss Estimated blood loss (mL): NONE Specimens/Packing Specimens Removed NONE Packing: NONE KALPANA JACINTO MD December 08, 2020 10:35
--- NOTE | 2020-12-08 10:37 | Discharge Inst-Urology ---
Discharge Inst-Urology Reconcile Patient Problems Problems Reviewed?: Yes Final Diagnosis RT PROXIMAL URETERAL STONE Patient Instructions/Follow Up Plan/Assessment/Instructions Please make appointment to been seen in office in 2 weeks. KUB prior to it KUB on way home Post ESWL instructions Increase oral fluids for 48 hours and then as needed. Diet and Activity as tolerated. If questions or concerns contact your physician Or seek help at emergency department. KALPANA JACINTO MD December 08, 2020 10:37
[2020-12-08] MEDS ORDERED: NITR-65 PO (13:08)
[2020-12-08] MEDS ORDERED: TMSL.4C PO (13:08)
[2020-12-08] MEDS ORDERED: TRM50T PO (13:08)
--- NOTE | 2020-12-08 13:56 | Diagnostic Imaging Report ---
INDICATION: Nephrolithiasis, post extracorporeal shock wave lithotripsy. TECHNIQUE: Single supine view of the abdomen 1:35 p.m. CORRELATION STUDY: 12/08/2020 FINDINGS: There has been partial clearance of the contrast in the renal collecting system. Kidneys remain slightly dense. Small amount of contrast in the collecting system. Urinary bladder is mildly distended with contrast. The previously noted transition point corresponding to calcification in the right mid ureter is not well appreciated on this study. There has been clearance of contrast from the collecting system. Multiple calcification of the pelvis is unchanged. Lumbosacral spinal fixation hardware and decompressive laminectomies. IMPRESSION: 1. There appears to be interval reduction of the previously noted obstructive changes in the right renal collecting system. The calcification itself cannot be well visualized on this study. Dictated by: Dictated on workstation # [id number]
--- NOTE | 2020-12-08 14:18 | OPERATIVE REPORT ---
DATE OF SERVICE: 12/08/2020 PREOPERATIVE DIAGNOSIS: Right proximal ureteral stone. POSTOPERATIVE DIAGNOSIS: Right proximal ureteral stone. OPERATION PERFORMED: Right ESWL. SURGEON: Emmett Jacinto MD ANESTHESIA: General. COMPLICATIONS: None. DESCRIPTION OF PROCEDURE: Under satisfactory general anesthesia, the patient in supine position on the ESWL table, the ureteroscopy was performed. The patient had received IV contrast during her CT scan, so we were guided by the contrast to determine the level of the stone and the obstruction. We delivered a total of 2500 shocks at kV of 6. There was flowing of the contrast beyond the obstruction. The patient received 40 mg of Lasix and 30 mg of Toradol IV at the end of the procedure. She tolerated the procedure and anesthesia well and was sent to recovery room in stable condition. Job ID: [id number] DocumentID: [id number] Dictated Date: 12/08/2020 11:06:28 Registration Scheduling Specialist Date: 12/08/2020 14:17:45 Dictated By: EMMETT JACINTO MD
--- NOTE | 2020-12-08 14:27 | Anesthesia-General Post-Op ---
General Patient Condition Mental Status/LOC: Same as Preop Cardiovascular: Satisfactory Nausea/Vomiting: Absent Respiratory: Satisfactory Pain: Controlled Complications: Absent Post Op Complications Complications None Follow Up Care/Instructions Patient Instructions None needed. Anesthesia/Patient Condition Patient Condition Patient is doing well, no complaints, stable vital signs, no apparent adverse anesthesia problems. No complications reported per nursing. SUNITA CHUN CRNA December 08, 2020 14:27
== END 2020-12-08 13:50 | disposition home or self-care (01) ==
LOC: EDUNIT# 07:07 → ER 07:09 → SDC 10:00
PROVIDERS: ATTEND Urology
DX: N20.1 Calculus of ureter (principal); E78.00 Pure hypercholesterolemia, unspecified; G43.909 Migraine, unspecified, not intractable, without status migrainosus; K21.9 Gastro-esophageal reflux disease without esophagitis; G89.29 Other chronic pain; M54.9 Dorsalgia, unspecified; F41.9 Anxiety disorder, unspecified; F32.9 Major depressive disorder, single episode, unspecified; F43.10 Post-traumatic stress disorder, unspecified; Z79.899 Other long term (current) drug therapy; Z87.891 Personal history of nicotine dependence; Z87.442 Personal history of urinary calculi
CPT/HCPCS: 36415; 74018; 74178; 80053; 83690; 85025; 86141

== ENCOUNTER 2020-12-13 20:23 | Day surgery (SDC) | payer MEDICAID ==
[~2020-12-13] VITALS: Ht 172.7 cm; Wt 93.0 kg
[~2020-12-13 20:23] MED LIST changes: +NITR-65 PO; +TMSL.4C PO
[2020-12-13] MEDS ORDERED: KETOROLAC 30 MG/ML VIAL ONE (20:30)
[2020-12-13] MEDS ORDERED: NS IV 1000 ML 1,000 ML ONE (20:32)
[2020-12-13] MEDS ORDERED: ONDANSETRON 4 MG/2 ML (SDV) Z0FRAN ONE (20:33)
[2020-12-13] MEDS ORDERED: NS IV 1000 ML 1,000 ML IV STA (20:38)
--- NOTE | 2020-12-13 20:41 | ED Abdominal Pain ---
General Stated Complaint: KIDNEY STONE Source of Information: Patient Exam Limitations: No Limitations History of Present Illness Date Seen by Provider: December 13, 2020 Time Seen by Provider: 20:35 Initial Comments This is a 55-year-old female presents to the ER with excruciating right flank pain since about 1500 this afternoon. States that she had a kidney stone in her right kidney and had an ESWL performed by Dr. Unger on December 08. Reports decreased urinary output, difficulty taking p.o. intake due to nausea/vomiting. Reports small amount of dark yellow/pink tinged urine. Currently rating pain 10/10, sharp and constant, radiates into her right lower quadrant. States she is unable to keep her pain under control with the Tramadol she was prescribed. No fever, chills, cough, shortness of breath. Allergies and Home Medications Allergies Coded Allergies: fentanyl (Verified Allergy, Severe, SEVERE N/V, 01/03/19) Xprblhw-Eba-Aae Reductase Inhibitor (Verified Allergy, Mild, LEG CRAMPS, 01/03/19) Home Medications Alprazolam 1 Mg Tablet, 1 MG PO TID, (Reported) Amoxicillin 500 Mg Capsule, 500 MG PO QID, (Reported) Azithromycin 500 Mg Tablet, 500 MG PO DAILY Prescribed by: EMMY GREEN on 11/08/19 0938 Benzocaine/Menthol 78 Gm Aerosol, 78 GM TP QID Prescribed by: WING HUNTER on 05/22/18 1059 Cyclobenzaprine HCl 10 Mg Tablet, 10 MG PO Q8H PRN for SPASMS Prescribed by: LISA ADAMES on 01/03/19 1253 Hydrocodone/Acetaminophen 1 Each Tablet, 1 EACH PO Q6H Prescribed by: WING HUNTER on 05/22/18 1059 Hydrocodone/Acetaminophen 1 Each Tablet, 1 TAB PO Q4H PRN for PAIN-MODERATE (5- 7) Prescribed by: RONI ANN on 12/13/20 2218 Hydroxyzine Pamoate 50 Mg Capsule, 50 MG PO Q6H Prescribed by: EMMY GREEN on 11/08/19 0938 Ibuprofen 600 Mg Tablet, 600 MG PO Q6H PRN for PAIN Prescribed by: WING HUNTER on 05/22/18 1059 Nitrofurantoin Monohyd/M-Cryst 100 Mg Capsule, 1 TAB PO BID Prescribed by: ALEKSEY WILL on 12/08/20 1308 Ondansetron 4 Mg Tab.rapdis, 4-8 MG PO Q6H PRN for NAUSEA/VOMITING Prescribed by: LISA ADAMES on 01/03/19 1253 Ondansetron 4 Mg Tab.rapdis, 4 MG PO Q6H PRN for NAUSEA/VOMITING Prescribed by: RILEY MELVIN on 04/08/20 1528 Ondansetron 4 Mg Tab.rapdis, 4 MG PO Q6H PRN for NAUSEA/VOMITING Prescribed by: RONI ANN on 12/13/20 2219 Tamsulosin HCl 0.4 Mg Cap, 0.4 MG PO DAILY Prescribed by: ALEKSEY WILL on 12/08/20 1308 Tramadol HCl 50 Mg Tablet, 1-2 EA PO Q4H PRN for PAIN-MODERATE (5-7) Prescribed by: ALEKSEY WILL on 12/08/20 1308 Patient Home Medication List Home Medication List Reviewed: Yes Review of Systems Review of Systems Constitutional: no symptoms reported EENTM: No Symptoms Reported Respiratory: No Symptoms Reported Cardiovascular: No Symptoms Reported Gastrointestinal: See HPI Genitourinary: See HPI Musculoskeletal: no symptoms reported Skin: no symptoms reported Psychiatric/Neurological: No Symptoms Reported Endocrine: No Symptoms Reported Hematologic/Lymphatic: No Symptoms Reported Past Ucetwua-Qlfuqi-Ydcybs Hx Patient Social History Drug of Choice: THC REGULAR USE;HX OF METH,COCAINE,PILLS,"EVERYTHING" Type Used: Cigarettes Former Smoker, Quit: Oct 05, 2018 Recent Hopitalizations: No Immunizations Up To Date Date of Influenza Vaccine: May 09, 2011 Seasonal Allergies Seasonal Allergies: Yes Past Medical History Surgeries: Yes (LOWER BACK SX, BILAT CTR, BILAT ELBOW, BILAT RCR, DXLS, ) Appendectomy, Hysterectomy, Oophorectomy, Orthopedic, Renal Respiratory: No Currently Using CPAP: No Currently Using BIPAP: No Cardiac: Yes High Cholesterol, Irregular Heartbeat Neurological: Yes Headaches /Migraines 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 Disorders: No Female 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 Disorders: Denies [employer] History: Hysterectomy Sexually Transmitted Disease: Yes (HPV) HIV/AIDS: No Genitourinary: Yes Kidney Stones, UTI-Chronic Gastrointestinal: Yes (ABDOMINAL PAIN, TARRY STOOLS) Gastroesophageal Reflux, Chronic Diarrhea, Irritable Bowel Musculoskeletal: Yes (MULTIPLE ORTHOPEDIC SURGERIES) Arthritis, Chronic Back Pain Endocrine: Yes (PRE DIABETIC) HEENT: Yes Loss of Vision: Bilateral Hearing Impairment: Denies Cancer: No Psychosocial: Yes (SEVERE MANIC DEPRESSIVE DISORDER) Anxiety, PTSD, Bipolar, Depression Integumentary: No Blood Disorders: No Adverse Reaction/Blood Tranf: No (N/A) Family Medical History Alcoholism 19 FATHER G8 BROTHER G8 SISTER Arthritis 19 MOTHER G8 SISTER Cardiovascular disease 19 FATHER G8 BROTHER Diabetes mellitus 19 FATHER G8 BROTHER G8 SISTER Drug abuse G8 BROTHER G8 SISTER FH: cancer 19 MOTHER (BREAST) Glaucoma 19 FATHER G8 SISTER Hypercholesterolemia 19 FATHER G8 BROTHER Hypertension 19 FATHER G8 BROTHER Myocardial infarction 19 FATHER Psychosocial problem 19 MOTHER G8 BROTHER G8 SISTER Respiratory disorder 19 FATHER Seizure disorder G8 SISTER Thyroid disease G8 SISTER No Pertinent Family Hx Physical Exam Vital Signs Vital Signs - First Documented 12/13/20 20:35 Temp 36.5 Pulse 114 Resp 22 B/P (MAP) 137/109 (118) Pulse Ox 97 O2 Delivery Room Air Capillary Refill : Height/Weight/BMI Height: 5'8.00" Weight: 202lbs. 0.0oz. 91.722778yc; 34.00 BMI Method:Stated General Appearance: WD/WN, mild distress (Yelling/crying out in pain) HEENT: PERRL/EOMI, normal ENT inspection, pharynx normal Neck: full range of motion, normal inspection Respiratory: lungs clear, normal breath sounds, no respiratory distress Cardiovascular: regular rate, rhythm, no murmur Gastrointestinal: normal bowel sounds, non tender, soft Extremities: normal range of motion, normal inspection Back: normal inspection, CVA tenderness (R) Neurologic/Psychiatric: no motor/sensory deficits, alert, normal mood/affect, oriented x 3 Skin: normal color, warm/dry Progress/Results/Core Measures Results/Orders Lab Results Laboratory Tests Test 12/13/20 20:40 Range/Units White Blood Count 9.7 4.3-11.0 10^3/uL Red Blood Count 4.62 3.80-5.11 10^6/uL Hemoglobin 14.4 11.5-16.0 g/dL Hematocrit 43 35-52 % Mean Corpuscular Volume 92 80-99 fL Mean Corpuscular Hemoglobin 31 25-34 pg Mean Corpuscular Hemoglobin Concent 34 32-36 g/dL Red Cell Distribution Width 12.1 10.0-14.5 % Platelet Count 320 130-400 10^3/uL Mean Platelet Volume 9.5 9.0-12.2 fL Immature Granulocyte % (Auto) 0 % Neutrophils (%) (Auto) 65 42-75 % Lymphocytes (%) (Auto) 22 12-44 % Monocytes (%) (Auto) 7 0-12 % Eosinophils (%) (Auto) 5 0-10 % Basophils (%) (Auto) 1 0-10 % Neutrophils # (Auto) 6.3 1.8-7.8 10^3/uL Lymphocytes # (Auto) 2.2 1.0-4.0 10^3/uL Monocytes # (Auto) 0.7 0.0-1.0 10^3/uL Eosinophils # (Auto) 0.5 H 0.0-0.3 10^3/uL Basophils # (Auto) 0.1 0.0-0.1 10^3/uL Immature Granulocyte # (Auto) 0.0 0.0-0.1 10^3/uL Sodium Level 140 135-145 MMOL/L Potassium Level 4.1 3.6-5.0 MMOL/L Chloride Level 104 98-107 MMOL/L Carbon Dioxide Level 20 L 21-32 MMOL/L Anion Gap 16 H 5-14 MMOL/L Blood Urea Nitrogen 13 7-18 MG/DL Creatinine 0.87 0.60-1.30 MG/DL Estimat Glomerular Filtration Rate > 60 BUN/Creatinine Ratio 15 Glucose Level 174 H 70-105 MG/DL Calcium Level 9.0 8.5-10.1 MG/DL Corrected Calcium 8.8 8.5-10.1 MG/DL Total Bilirubin 0.8 0.1-1.0 MG/DL Aspartate Amino Transf (AST/SGOT) 20 5-34 U/L Alanine Aminotransferase (ALT/SGPT) 27 0-55 U/L Alkaline Phosphatase 114 40-136 U/L Total Protein 7.3 6.4-8.2 GM/DL Albumin 4.3 3.2-4.5 GM/DL My Orders Orders - RONI ANN APRN Ua Culture If Indicated (12/13/20 20:26) Ketorolac Injection (Toradol Injection) (12/13/20 20:45) Ondansetron Injection (Zofran Injectio (12/13/20 20:45) Hydromorphone Injection (Dilaudid Inject (12/13/20 20:45) Ketorolac Injection (Toradol Injection) (12/13/20 20:30) Cbc With Automated Diff (12/13/20 20:38) Comprehensive Metabolic Panel (12/13/20 20:38) Ct Abdomen/Pelvis Wo (12/13/20 20:38) Ns Iv 1000 Ml (Sodium Chloride 0.9%) (12/13/20 20:38) Ns Iv 1000 Ml (Sodium Chloride 0.9%) (12/13/20 20:32) Ondansetron Injection (Zofran Injectio (12/13/20 20:33) Hydromorphone Injection (Dilaudid Inject (12/13/20 21:00) Ondansetron Injection (Zofran Injectio (12/13/20 21:00) Ns Iv 1000 Ml (Sodium Chloride 0.9%) (12/13/20 21:45) Hydrocodone/Apap 5/325 Tablet (Lortab 5 (12/13/20 22:15) Abdomen/Kub 1view (12/13/20 22:14) Rx-Hydrocodone/Apap 5-325 Mg (Rx-Vicodin (12/13/20 22:30) Rx-Ondansetron Po (Rx-Zofran Po) (12/13/20 22:21) Promethazine Injection (Phenergan Injec (12/13/20 22:45) Promethazine Injection (Phenergan Injec (12/13/20 22:30) Medications Given in ED Current Medications Medications Dose Ordered Sig/[place] Route Start Time Stop Time Status Last Admin Dose Admin Acetaminophen/ Hydrocodone Bitart 1 ea ONCE ONCE PO 12/13/20 22:15 12/13/20 22:16 DC 12/13/20 22:25 1 EA Acetaminophen/ Hydrocodone Bitart 1 ea Q4H PRN PO 12/13/20 22:30 12/13/20 22:44 1 EA Hydromorphone HCl 0.5 mg ONCE ONCE IV 12/13/20 20:45 12/13/20 20:46 DC 12/13/20 20:41 0.5 MG Hydromorphone HCl 1 mg ONCE ONCE IV 12/13/20 21:00 12/13/20 21:01 DC 12/13/20 21:04 1 MG Ketorolac Tromethamine 30 mg ONCE ONCE IVP 12/13/20 20:45 12/13/20 20:46 DC 12/13/20 20:39 30 MG Ondansetron HCl 4 mg ONCE ONCE IVP 12/13/20 20:45 12/13/20 20:46 DC 12/13/20 20:41 4 MG Ondansetron HCl 4 mg ONCE ONCE IVP 12/13/20 21:00 12/13/20 21:01 DC 12/13/20 21:04 4 MG Promethazine HCl 25 mg STK-MED ONCE .ROUTE 12/13/20 22:30 12/13/20 22:39 DC 12/13/20 22:44 25 MG Sodium Chloride 1,000 ml @ 999 mls/hr Q1H ONCE IV 12/13/20 21:45 12/13/20 22:45 DC 12/13/20 21:45 999 MLS/HR Vital Signs/I&O 12/13/20 20:35 Temp 36.5 Pulse 114 Resp 22 B/P (MAP) 137/109 (118) Pulse Ox 97 O2 Delivery Room Air Progress Progress Note : Progress Note Patient examined. She is yelling/crying out in pain. States that she cannot take it anymore. Orders given to place IV and to give Dilaudid 0.5 mg with Zofran 4 mg IV push. Will order basic labs and CT abdomen pelvis. Continue to report severe pain given an additional 1 mg Dilaudid with Zofran 4 mg IV push. Within 20 minutes she was resting more comfortably. IV fluids initiated. CT abdomen pelvis shows 4 mm stone in her right distal ureter, causing proximal hydroureteronephrosis. Called Dr. Rodrigues and updated on patient's condition. Requested KUB ordered tonight, give patient hydrocodone p.o., have her repeat KUB tomorrow before her follow-up appointment. Patient received 2 L of fluids and has yet to void. When given hydrocodone she vomited immediately back up. Orders placed for Phenergan 25 mg IV. Discussed case with Dr. Castañeda hospitalist due to intractable pain and nausea/vomiting. She is agreeable with observation admission for pain control. Nursing staff to consult Dr. Rodrigues in morning. Requested bladder scan be performed. Reviewed plan with patient and she is agreeable with plan. Bladder scan completed and less than 50ml noted. Vital signs stable. Reports pain is starting to return, orders placed for Dilaudid 0.5 mg IV push prior to admission to medical unit. Diagnostic Imaging Diagonstic Imaging: Xray Plain Films/CT/US/NM/MRI: abdomen Comments NAME: BRIGIDO SIGALA [facility] REC#: [id number] PT STATUS: REG ER : [id number] PHYSICIAN: RONI ANN VOUCHER EXAMINER ADMIT DATE: 12/13/20/ER Draft Date of Exam:12/13/20 CT ABDOMEN/PELVIS WO PROCEDURE: CT abdomen and pelvis without contrast. TECHNIQUE: Multiple contiguous axial images were obtained through the abdomen and pelvis without the use of intravenous contrast. Auto Exposure Controls were utilized during the CT exam to meet ALARA standards for radiation dose reduction. INDICATION: Right flank pain. Recent ESWL. History of kidney stones. COMPARISON: 12/08/2020. FINDINGS: Included portions of the lung bases are clear. CT abdomen: 4 mm calculus is identified within the distal right ureter (image 97, series 2). As a result, there is moderate proximal hydroureteronephrosis. Additional nonobstructive renal calculi are also seen within the inferior pole of the right kidney and superior pole on the left. No ureteral calculus is seen on the left. Additionally, there is no hydroureteronephrosis or other evidence of obstruction on the left. No focal renal lesion is identified on this noncontrast exam. The adrenal glands, spleen, pancreas and liver have an unremarkable noncontrast CT appearance. Small bowel loops are nondistended. Normal appendix cannot be adequately identified, but there is no pericecal inflammation. There is no loculated fluid collection, free fluid or free air within the abdomen. No abnormal mesenteric or retroperitoneal adenopathy is identified. Osseous structures show no acute abnormality. CT pelvis: Urinary bladder is unopacified and minimally distended. No additional calculi are seen within the urinary bladder. There is no loculated fluid collection, free fluid or free air. No abnormal lymph node is seen. Osseous structures show no acute abnormality. IMPRESSION: 1. 4 mm calculus within the distal right ureter resulting in proximal hydroureteronephrosis. 2. Additional bilateral nonobstructive renal calculi. Dictated on workstation # [id number] Dict: 12/13/202136 Trans: 12/13/202153 [id number] Interpreted by: OLEKSANDR CINTRON MD Electronically signed by: Reviewed: Reviewed by Me Departure Communication (Admissions) Time/Spoke to Admitting Phy: 22:[address] Castañeda accepted patient admission. Time/Spoke to Consulting Phy: 22:[address] Rodrigues, recommended changing patient's pain management to hydrocodone. She is to keep her follow-up in office tomorrow. Requested KUB ordered tonight. Impression Primary Impression: Renal calculi Additional Impressions: Hydroureteronephrosis Intractable pain Intractable nausea and vomiting Disposition: 01 HOME, SELF-CARE Condition: Improved Admissions Decision to Admit Reason: Admit from ER (General) Decision to Admit/Date: December 13, 2020 Time/Decision to Admit Time: 22:50 Departure-Patient Inst. Decision time for Depature: 22:15 Referrals: LEAH SPARKS MD (PCP/Family) Primary Care Physician RONI ANN VOUCHER EXAMINER December 13, 2020 20:41
[2020-12-13] MEDS ORDERED: HYDROmorphone 2 MG/ML VIAL (DILAUDID) IV ONE ×3 (20:45→23:15)
[2020-12-13] MEDS ORDERED: KETOROLAC 30 MG/ML VIAL IVP ONE (20:45)
[2020-12-13] MEDS ORDERED: ONDANSETRON 4 MG/2 ML (SDV) Z0FRAN IVP ONE ×2 (20:45→21:00)
[2020-12-13 20:49] LABS: BASOPHILS # (AUTO) 0.1 10^3/uL (0.0-0.1); BASOPHILS % (AUTO) 1 % (0-10); EOSINOPHILS # (AUTO) 0.5 10^3/uL (0.0-0.3); EOSINOPHILS % (AUTO) 5 % (0-10); HEMATOCRIT 43 % (35-52); HEMOGLOBIN 14.4 g/dL (11.5-16.0); LYMPHOCYTES # (AUTO) 2.2 10^3/uL (1.0-4.0); LYMPHOCYTES % (AUTO) 22 % (12-44); MEAN CORPUSCULAR HEMOGLOBIN 31 pg (25-34); MEAN CORPUSCULAR HGB CONC 34 g/dL (32-36); MEAN CORPUSCULAR VOLUME 92 fL (80-99); MEAN PLATELET VOLUME 9.5 fL (9.0-12.2); MONOCYTES # (AUTO) 0.7 10^3/uL (0.0-1.0); MONOCYTES % (AUTO) 7 % (0-12); NEUTROPHILS # (AUTO) 6.3 10^3/uL (1.8-7.8); NEUTROPHILS % (AUTO) 65 % (42-75); PLATELET COUNT 320 10^3/uL (130-400); WHITE BLOOD COUNT 9.7 10^3/uL (4.3-11.0)
[2020-12-13 20:58] LABS: ALBUMIN 4.3 GM/DL (3.2-4.5); CHLORIDE 104 MMOL/L (98-107); POTASSIUM 4.1 MMOL/L (3.6-5.0); SODIUM 140 MMOL/L (135-145)
[2020-12-13 21:00] LABS: GLUCOSE 174 MG/DL (70-105); TOTAL PROTEIN 7.3 GM/DL (6.4-8.2)
[2020-12-13 21:01] LABS: CARBON DIOXIDE 20 MMOL/L (21-32)
[2020-12-13 21:02] LABS: BILIRUBIN,TOTAL 0.8 MG/DL (0.1-1.0)
[2020-12-13 21:04] LABS: ALKALINE PHOSPHATASE 114 U/L (40-136); CREATININE SERUM 0.87 MG/DL (0.60-1.30); GFR ESTIMATED > 60
[2020-12-13 21:05] LABS: BUN/CREATININE RATIO 15
[2020-12-13 21:07] LABS: ALANINE AMINOTRANSFERASE 27 U/L (0-55)
[2020-12-13] MEDS ORDERED: NS IV 1000 ML 1,000 ML IV ONE (21:45)
--- NOTE | 2020-12-13 21:55 | Diagnostic Imaging Report ---
PROCEDURE: CT abdomen and pelvis without contrast. TECHNIQUE: Multiple contiguous axial images were obtained through the abdomen and pelvis without the use of intravenous contrast. Auto Exposure Controls were utilized during the CT exam to meet ALARA standards for radiation dose reduction. INDICATION: Right flank pain. Recent ESWL. History of kidney stones. COMPARISON: 12/08/2020. FINDINGS: Included portions of the lung bases are clear. CT abdomen: 4 mm calculus is identified within the distal right ureter (image 97, series 2). As a result, there is moderate proximal hydroureteronephrosis. Additional nonobstructive renal calculi are also seen within the inferior pole of the right kidney and superior pole on the left. No ureteral calculus is seen on the left. Additionally, there is no hydroureteronephrosis or other evidence of obstruction on the left. No focal renal lesion is identified on this noncontrast exam. The adrenal glands, spleen, pancreas and liver have an unremarkable noncontrast CT appearance. Small bowel loops are nondistended. Normal appendix cannot be adequately identified, but there is no pericecal inflammation. There is no loculated fluid collection, free fluid or free air within the abdomen. No abnormal mesenteric or retroperitoneal adenopathy is identified. Osseous structures show no acute abnormality. CT pelvis: Urinary bladder is unopacified and minimally distended. No additional calculi are seen within the urinary bladder. There is no loculated fluid collection, free fluid or free air. No abnormal lymph node is seen. Osseous structures show no acute abnormality. IMPRESSION: 1. 4 mm calculus within the distal right ureter resulting in proximal hydroureteronephrosis. 2. Additional bilateral nonobstructive renal calculi. Dictated by: Dictated on workstation # [id number]
[2020-12-13] MEDS ORDERED: HYDROcodone/APAP 5 MG/325 MG (LORTAB) TAB PO ONE (22:15)
[2020-12-13] MEDS ORDERED: ACHD5005 PO (22:18)
[2020-12-13] MEDS ORDERED: ONDA4TAB11 PO (22:19)
[2020-12-13] MEDS ORDERED: RX-ONDANSETRON 4 MG ODT (ZOFRAN) PPK #4 PO STA (22:21)
[2020-12-13] MEDS ORDERED: PROMETHAZINE INJ 25 MG/ML (PHENERGAN) AMP ONE (22:30)
[2020-12-13] MEDS ORDERED: PROMETHAZINE INJ 25 MG/ML (PHENERGAN) AMP IVP ONE (22:45)
[2020-12-13] MEDS ORDERED: NS IV 1000 ML 1,000 ML IV SCH (23:15)
[2020-12-13 23:40] LABS: BILIRUBIN,URINE NEGATIVE (NEGATIVE); CLARITY,URINE SL CLOUDY; COLOR,URINE BROWN; GLUCOSE, URINE (UA) NEGATIVE (NEGATIVE); KETONES,URINE NEGATIVE (NEGATIVE); LEUKOCYTE ESTERASE ,URINE NEGATIVE (NEGATIVE); NITRITE,URINE NEGATIVE (NEGATIVE); PROTEIN,URINE 1+ (NEGATIVE)
[2020-12-13 23:48] LABS: BACTERIA,URINE MODERATE /HPF; RBC,URINE 25-50 /HPF; WBC,URINE 25-50 /HPF
[2020-12-14] VITALS (8 sets, daily range): BP systolic 101–144; BP diastolic 62–89
[2020-12-14] MEDS: NS IV 1000 ML 1,000 ML IV SCH ×3 (00:38→15:27)
[2020-12-14] MEDS: ONDANSETRON 4 MG/2 ML (SDV) Z0FRAN IVP PRN ×4 (00:43→20:59)
[2020-12-14] MEDS ORDERED: METOCLOPRAMIDE INJ 10 MG/2 ML (REGLAN) IVP PRN (00:45)
[2020-12-14] MEDS: PROMETHAZINE INJ 25 MG/ML (PHENERGAN) AMP IVP PRN ×3 (01:21→15:15)
[2020-12-14] MEDS: HYDROmorphone 2 MG/ML VIAL (DILAUDID) IV PRN ×5 (01:21→23:11)
[2020-12-14] MEDS ORDERED: RT-ALBUTEROL/IPRATROPIUM 3 ML (DUONEB) VIAL INH PRN (03:00)
[2020-12-14 04:12] LABS: BASOPHILS % (AUTO) 1 % (0-10); EOSINOPHILS # (AUTO) 0.4 10^3/uL (0.0-0.3); EOSINOPHILS % (AUTO) 5 % (0-10); HEMATOCRIT 39 % (35-52); LYMPHOCYTES # (AUTO) 1.7 10^3/uL (1.0-4.0); LYMPHOCYTES % (AUTO) 23 % (12-44); MEAN CORPUSCULAR HEMOGLOBIN 32 pg (25-34); MEAN CORPUSCULAR HGB CONC 33 g/dL (32-36); MEAN CORPUSCULAR VOLUME 95 fL (80-99); MEAN PLATELET VOLUME 9.8 fL (9.0-12.2); MONOCYTES # (AUTO) 0.5 10^3/uL (0.0-1.0); MONOCYTES % (AUTO) 7 % (0-12); NEUTROPHILS # (AUTO) 4.8 10^3/uL (1.8-7.8); NEUTROPHILS % (AUTO) 65 % (42-75); PLATELET COUNT 265 10^3/uL (130-400); WHITE BLOOD COUNT 7.4 10^3/uL (4.3-11.0)
[2020-12-14 04:29] LABS: ALBUMIN 3.9 GM/DL (3.2-4.5); POTASSIUM 4.4 MMOL/L (3.6-5.0)
[2020-12-14 04:30] LABS: CALCIUM 8.1 MG/DL (8.5-10.1)
[2020-12-14 04:31] LABS: TOTAL PROTEIN 6.5 GM/DL (6.4-8.2)
[2020-12-14 04:33] LABS: BILIRUBIN,TOTAL 0.7 MG/DL (0.1-1.0)
[2020-12-14 04:35] LABS: CREATININE SERUM 0.97 MG/DL (0.60-1.30)
--- NOTE | 2020-12-14 07:47 | Diagnostic Imaging Report ---
INDICATION: Flank pain, suspected kidney stone COMPARISON STUDY: KUB from 12/08/2020. FINDINGS: Supine view of the abdomen demonstrates some phleboliths in the pelvis. No calculi are seen overlying the kidneys or ureters. Postoperative changes are again seen within the spine. IMPRESSION: No renal calculi are identified. The bowel gas pattern appears normal. Dictated by: Dictated on workstation # [id number]
[2020-12-14] MEDS: cefTRIAXone FOR IV USE 2,000 MG in WATER (STERILE) FOR INJECTION 20 ML IV SCH (07:50)
[2020-12-14] MEDS: KETOROLAC 30 MG/ML VIAL IVP PRN ×3 (07:52→20:59)
[2020-12-14] MEDS ORDERED: MELATONIN 3 MG TABLET PO PRN (11:30)
[2020-12-14] MEDS ORDERED: diphenhydrAMINE 25 MG TAB (BENADRYL) PO PRN (11:30)
[2020-12-14] MEDS ORDERED: ONDANSETRON 4 MG/2 ML (SDV) Z0FRAN IV PRN (11:30)
[2020-12-14] MEDS ORDERED: ACETAMINOPHEN 325 MG TABLET PO PRN (11:30)
[2020-12-14] MEDS ORDERED: MILK OF MAGNESIA 400 MG/5 ML 30 ML UDC PO PRN (11:30)
[2020-12-14] MEDS ORDERED: BISACODYL 10 MG SUPP (DULCOLAX) PR PRN (11:30)
[2020-12-14] MEDS ORDERED: polyethylene glycoL POWDER 17 GM (MIRALAX) PACK PO PRN (11:30)
[2020-12-14] MEDS ORDERED: ONDANSETRON 4 MG (ZOFRAN) ORAL DISSOLVE TAB PO PRN (11:30)
[2020-12-14] MEDS ORDERED: ANTACID SUSP 30 ML UDC (MYLANTA) PO PRN (11:30)
[2020-12-14] MEDS: ENOXAPARIN 40 MG/0.4 ML (LOVENOX) SYR SC SCH (12:11)
--- NOTE | 2020-12-14 13:29 | History & Physical-Hospitalist ---
History of Present Illness HPI/Chief Complaint Elizabeth Fuentes is a 55 year old female who presented with flank pain. She reports the pain as 8/10 at this time. She reports radiation around to her groin. She also has suprapubic abdominal pain. She reports having fevers. She reports nausea and vomiting. She denies chest pain and shortness of breath. She reports pressure with urination. She says this started a week ago and she underwent extracorporeal shock wave lithotripsy with Dr. Rodrigues last week. Source: patient Exam Limitations: no limitations Date Seen 12/14/20 Time Seen by a Provider: 09:40 Attending Physician Mary Jo Castañeda MD PCP Kye Harding MD Referring Physician Date of Admission December 13, 2020 at 23:15 Home Medications & Allergies Home Medications Reviewed patient Home Medication Reconciliation performed by pharmacy medication reconciliations histopathology technician and/or nursing. Patients Allergies have been reviewed. Allergies Allergies Coded Allergies fentanyl (Verified Allergy, Severe, SEVERE N/V, 01/03/19) Lyfcgfo-Lev-Xzp Reductase Inhibitor (Verified Allergy, Mild, LEG CRAMPS, 01/03/19) Patient Social History Smoking Status: Former Smoker Substance type: Methamphetamine, Marijuana Substance frequency: Once in a while Pt stated abuse/neglect: No Immunizations Up To Date Second COVID19 Vaccination [place]: 11/22/20 Current Status status: No status: No Communicates: Verbally Primary Language: Kinyarwanda Preferred Spoken Language: Kinyarwanda Is interpretation needed?: No Past Medical History Kidney stones Family Medical History Family Hx: Noncontributory Review of Systems Constitutional: fever EENTM: no symptoms reported Respiratory: no symptoms reported Cardiovascular: no symptoms reported Gastrointestinal: abdominal pain, nausea, vomiting Genitourinary: dysuria Musculoskeletal: back pain Skin: no symptoms reported Psychiatric/Neurological: No Symptoms Reported Physical Exam Physical Exam Vital Signs Vital Signs - First Documented 12/13/20 20:35 Temp 36.5 Pulse 114 Resp 22 B/P (MAP) 137/109 (118) Pulse Ox 97 O2 Delivery Room Air Capillary Refill : Less Than 3 Seconds Height, Weight, BMI Height: 5'8.00" Weight: 202lbs. 0.0oz. 91.376287ut; 31.18 BMI Method:Stated General Appearance: No Apparent Distress, WD/WN HEENT: PERRL/EOMI, Pharynx Normal Neck: Normal Inspection, Supple Respiratory: Lungs Clear, Normal Breath Sounds, No Respiratory Distress Cardiovascular: Regular Rate, Rhythm, No Edema, No Murmur Gastrointestinal: Normal Bowel Sounds, Soft, Tenderness Back: CVA Tenderness (R) Extremity: Normal Inspection, Non Tender, No Pedal Edema Neurologic/Psychiatric: Alert, Oriented x3, No Motor/Sensory Deficits, Normal Mood/Affect Skin: Normal Color, Warm/Dry Lymphatic: No Adenopathy Results Results/Procedures Labs Laboratory Tests 12/13/20 20:40 12/14/20 03:30 Patient resulted labs reviewed. Imaging: Reviewed Imaging Report Assessment/Plan Admission Diagnosis Kidney stone Admission Status: Observation Assessment and Plan Nephrolithiasis Hydroureteronephrosis UTI CT Abdomen showed 4 mm right distal ureter stone with hydroureteronephrosis UA conistent with UTI Urine culture pending Begin Rocephin Pain regimen Antiemetics Dr. Rodrigues consulted, appreciate assistance DVT prophylaxis: Lovenox Diagnosis/Problems Diagnosis/Problems (1) Right kidney stone Status: Acute (2) Hydroureteronephrosis Status: Acute (3) UTI (urinary tract infection) Status: Acute Qualifiers: Urinary tract infection type: acute cystitis Hematuria presence: with hematuria Qualified Codes: N30.01 - Acute cystitis with hematuria AYESHA MORAN MD December 14, 2020 13:29
[2020-12-14] MEDS ORDERED: OMEG1CAP24 PO (15:08)
[2020-12-14] MEDS ORDERED: CLON0.5T4 PO (15:08)
[2020-12-14] MEDS ORDERED: TRAM50TA3 PO (15:08)
[2020-12-14] MEDS ORDERED: IBUP-2473 PO (15:08)
[2020-12-14] MEDS ORDERED: CYCL10TA9 PO (15:08)
[2020-12-14] MEDS ORDERED: PANT40TA52 PO (15:08)
[2020-12-14] MEDS ORDERED: ATOR40TA70 PO (15:08)
[2020-12-14] MEDS ORDERED: NAPR-915 PO (15:08)
[2020-12-14] MEDS ORDERED: TMSL.4C PO (15:08)
[2020-12-14] MEDS ORDERED: NITR100C10 PO (15:08)
--- NOTE | 2020-12-14 16:39 | Diagnostic Imaging Report ---
INDICATION: Nephrolithiasis. EXAMINATION: KUB at 1:44 PM. FINDINGS: The lung bases are clear. The bowel gas pattern is normal. There are several phleboliths in the pelvis. There are no masses seen. The patient has had previous discectomy and fusion of L4-L5 and L5-S1. IMPRESSION: No acute abnormalities in the abdomen. Dictated by: Dictated on workstation # [id number]
--- NOTE | 2020-12-14 21:54 | CONSULTATION REPORT ---
DATE OF SERVICE: 12/14/2020 ATTENDING PHYSICIAN: . SUMMARY: A 55-year-old white lady who underwent a right ESWL 6 days prior to her presentation in the ER this time for a right proximal ureteral stone with good results; however, one of the fragments was unable to pass and was stuck at the right distal ureter. KUB today showed that it has progressed almost if not at the UVJ or intramural portion according to the KUB. The patient's pain, nausea and vomiting were controlled by medications. IMPRESSION: Right distal ureteral stone fragment. PLAN: If not passed by tomorrow, which has high possibility of passing it, we will proceed with surgery namely right ureteroscopy with stone lithotripsy, possible basket stent or lithotomy. Procedure was fully explained to the patient and her significant other and preoperative orders were written. Job ID: [id number] DocumentID: [id number] Dictated Date: 12/14/2020 17:42:11 Manager Marketing Sales Date: 12/14/2020 21:53:26 Dictated By: KALPANA JACINTO MD MTDD
[2020-12-15] VITALS (11 sets, daily range): BP systolic 91–152; BP diastolic 60–76
[2020-12-15] MEDS: NS IV 1000 ML 1,000 ML IV SCH ×2 (02:36→08:04)
--- NOTE | 2020-12-15 07:10 | Progress Note-Pre Operative ---
Pre-Operative Progress Note H&P Reviewed The H&P was reviewed, patient examined and no changes noted. Date Seen by Provider: December 15, 2020 Time Seen by Provider: 07:09 Date H&P Reviewed: December 15, 2020 Time H&P Reviewed: 07:09 Pre-Operative Diagnosis: RT DISTAL URETERAL STONE KALPANA JACINTO MD December 15, 2020 07:10
--- NOTE | 2020-12-15 07:19 | Progress Note-Post Operative ---
Post-Operative Progess Note Surgeon (s)/Property Officer (s) Surgeon KALPANA JACINTO MD Property Officer: NONE Pre-Operative Diagnosis RT DISTAL URETERAL STONE Post-Operative Diagnosis SAME Procedure & Operative Findings Date of Procedure 12/15/20 Procedure Performed/Findings RT URETEROSCOPY WITH STONE BASKET Anesthesia Type GENERAL Estimated Blood Loss Estimated blood loss (mL): NONE Specimens/Packing Specimens Removed STONE Packing: NONE KALPANA JACINTO MD December 15, 2020 07:19
[2020-12-15] MEDS: cefTRIAXone FOR IV USE 2,000 MG in WATER (STERILE) FOR INJECTION 20 ML IV SCH (08:05)
[2020-12-15] MEDS: HYDROmorphone 2 MG/ML VIAL (DILAUDID) IV PRN (08:05)
[2020-12-15] MEDS: LACTATED RINGERS 1,000 ML IV PRN ×2 (10:00→11:21)
[2020-12-15] MEDS ORDERED: MIDAZOLAM 2 MG/2 ML (VERSED) VIAL ONE (10:07)
[2020-12-15] MEDS ORDERED: fentaNYL INJ 100 MCG/2 ML AMP ONE (10:13)
[2020-12-15] MEDS ORDERED: proPOfol 200 MG/20 ML (DIPRIVAN) VIAL IV ONE (10:15)
[2020-12-15] MEDS ORDERED: LIDOCAINE PF 2% 5 ML (XYLOCAINE) VIAL ONE (10:15)
[2020-12-15] MEDS ORDERED: SUCCINYLCHOLINE INJ 100 MG/5 ML SYR/VIAL ONE (10:15)
[2020-12-15] MEDS ORDERED: ONDANSETRON 4 MG/2 ML (SDV) Z0FRAN ONE (10:15)
[2020-12-15] MEDS ORDERED: ROCURONIUM 10 MG/ML 5 ML SYRINGE IV ONE (10:15)
[2020-12-15] MEDS ORDERED: SEVOFLURANE (ULTANE) 15 ML INHAL SOLN ONE (10:15)
[2020-12-15] MEDS ORDERED: GLYCOPYRROLATE 0.2 MG/ML (ROBINUL) 2 ML VIAL ONE (10:42)
[2020-12-15] MEDS ORDERED: NEOSTIGMINE 3 MG/3 ML VIAL ONE (10:42)
--- NOTE | 2020-12-15 11:05 | Anesthesia-General Post-Op ---
General Patient Condition Mental Status/LOC: Same as Preop Cardiovascular: Satisfactory Nausea/Vomiting: Absent Respiratory: Satisfactory Pain: Controlled Complications: Absent Post Op Complications Complications None Follow Up Care/Instructions Patient Instructions None needed. Anesthesia/Patient Condition Patient Condition Patient is doing well, no complaints, stable vital signs, no apparent adverse anesthesia problems. No complications reported per nursing. GEOFF MEZA CRNA December 15, 2020 11:05
[2020-12-15] MEDS ORDERED: morphine INJ 10 MG/ML 1ML (SYR OR VIAL) IVP ONE (11:15)
[2020-12-15] MEDS ORDERED: MEPERIDINE (DEMEROL) INJ 50 MG/ML IVP ONE (11:15)
[2020-12-15] MEDS ORDERED: PROMETHAZINE INJ 25 MG/ML (PHENERGAN) AMP IVP ONE (11:15)
[2020-12-15] MEDS ORDERED: ONDANSETRON 4 MG/2 ML (SDV) Z0FRAN IVP PRN (11:15)
[2020-12-15] MEDS: ENOXAPARIN 40 MG/0.4 ML (LOVENOX) SYR SC SCH (11:29)
[2020-12-15] MEDS ORDERED: TRAM50TA3 PO (11:41)
--- NOTE | 2020-12-15 17:22 | OPERATIVE REPORT ---
DATE OF SERVICE: 12/15/2020 PREOPERATIVE DIAGNOSIS: Right distal ureteral stone fragment. POSTOPERATIVE DIAGNOSIS: Right distal ureteral stone fragment. OPERATION PERFORMED: Right ureteroscopy with stone basket. SURGEON: Emmett Jacinto MD ANESTHESIA: General. COMPLICATIONS: None. DESCRIPTION OF PROCEDURE: Under satisfactory general anesthesia, the patient in lithotomy position, genitalia were prepped and draped in the usual sterile fashion. Cystoscope was introduced under vision. Bladder was normal. There was a sluggish efflux on the right side. Using the foroblique lens, I dilated the right ureteral orifice intramural portion to accommodate a 6.9 Guamanian semi-rigid ureteroscope, visualized the stone. It was amenable for basket and floating, so I elected to go ahead and basketed, so I do not lose it to the kidney, so I decided to break it up, so I used a 3-Guamanian Pineda basket, engaged the stone under vision and extracted it completely. I went back with ureteroscope all the way up to the proximal ureter, there were no further fragments or stones. I removed the ureteroscope, reinserted the cystoscope to empty the bladder. The patient tolerated the procedure and anesthesia well and was sent to recovery room in stable condition. Job ID: [id number] DocumentID: [id number] Dictated Date: 12/15/2020 11:02:24 [facility] Date: 12/15/2020 17:20:57 Dictated By: EMMETT JACINTO MD
== END 2020-12-15 13:27 | disposition home or self-care (01) ==
LOC: EDUNIT# 20:23 → ER 20:24 → SDC 23:15 → 4TH 23:15 → UNDOADMOB 23:15 → 4TH 12-14 11:12 → UNDODISOB 12-15 13:27 → SDC 12-15 13:27
PROVIDERS: ATTEND Family Medicine
DX: N13.2 Hydronephrosis with renal and ureteral calculous obstruction (principal); N39.0 Urinary tract infection, site not specified; J30.2 Other seasonal allergic rhinitis; E78.00 Pure hypercholesterolemia, unspecified; M19.90 Unspecified osteoarthritis, unspecified site; R73.03 Prediabetes; F41.9 Anxiety disorder, unspecified; F43.10 Post-traumatic stress disorder, unspecified; F31.9 Bipolar disorder, unspecified; K21.9 Gastro-esophageal reflux disease without esophagitis; Z88.8 Allergy status to other drugs, medicaments and biological substances; Z87.891 Personal history of nicotine dependence; Z87.442 Personal history of urinary calculi; Z98.890 Other specified postprocedural states; Z79.899 Other long term (current) drug therapy; Z79.891 Long term (current) use of opiate analgesic; Z79.1 Long term (current) use of non-steroidal anti-inflammatories (NSAID); Z90.710 Acquired absence of both cervix and uterus; Z90.89 Acquired absence of other organs; Z90.721 Acquired absence of ovaries, unilateral; Z80.3 Family history of malignant neoplasm of breast
CPT/HCPCS: 52352; 74018 ×2; 74176; 76000; 80053 ×2; 81000; 85025 ×2; 87081; 87088; 94760 ×2; 96361; 96374; 96375; 96376; 99284; G0378; 36415; 88300

== ENCOUNTER → 2021-01-20 | Outpatient (CLI) | payer MEDICAID ==
[~2021-01-20] MED LIST changes: +ACHD5005 PO; +ATOR40TA70 PO; +CATHETER FLUSH 10 ML SYR IV PRN; +CLON0.5T4 PO; +IBUP-2473 PO; +NAPR-915 PO; +NITR100C10 PO; +OMEG1CAP24 PO; +PANT40TA52 PO; +TRAM50TA3 PO
--- NOTE | 2021-01-20 11:04 | Diagnostic Imaging Report ---
Indication: Right upper quadrant pain. TECHNIQUE: Acquisitions were acquired of the abdomen after administration of 5.39 millicuries of technetium 99m Choletec. Patient then ingested 8 ounces ensure to evaluate for ejection fraction. FINDINGS: There is homogeneous uptake of isotope throughout the liver. Significant kidney which within the gallbladder by 60 minutes. There is free flow of activity into the small bowel. Ejection fraction is 56%. IMPRESSION: Normal hepatobiliary scan and ejection fraction. Dictated by: Dictated on workstation # [id number]
== END ==
LOC: CARD 09:00
PROVIDERS: ATTEND Surgery
DX: R10.11 Right upper quadrant pain (principal); R10.13 Epigastric pain
CPT/HCPCS: 78227; A9537

== ENCOUNTER → 2021-06-21 | Outpatient (CLI) | payer MEDICAID ==
[~2021-06-21] MED LIST changes: -CATHETER FLUSH 10 ML SYR IV PRN; -DOXY100C2 PO; +DOXY100C5 PO; -OMEP40CA27 PO; +OMEP40CA6 PO
--- NOTE | 2021-06-21 14:00 | Diagnostic Imaging Report ---
EXAMINATION: Abdomen, one view. HISTORY: History of stones. COMPARISON: 12/14/2020. FINDINGS: There is a moderate amount of gas and stool throughout the colon. Nonobstructive bowel gas pattern. There is a 0.2 cm likely calculus overlying the left kidney. Multiple stable calcifications in the pelvis suggest phleboliths. The lung bases are clear. The osseous structures are intact. IMPRESSION: Stable 0.2 cm likely left renal calculus and pelvic phleboliths. Dictated by: Dictated on workstation # [id number]
== END ==
LOC: RAD 11:15
PROVIDERS: ATTEND Urology
DX: N20.0 Calculus of kidney (principal); I87.8 Other specified disorders of veins
CPT/HCPCS: 74018

== ENCOUNTER 2021-07-20 06:32 | Outpatient (CLI) | payer MEDICAID ==
[~2021-07-20] VITALS: Ht 172 cm; Wt 93.0 kg
[~2021-07-20 06:32] MED LIST changes: +CYCL10TA25 PO
[2021-07-21] MEDS ORDERED: OXYC1TAB87 PO (11:16)
[2021-07-21] MEDS ORDERED: CYCL10TA25 PO (11:16)
== END 2021-07-21 12:21 | disposition home or self-care (01) ==
LOC: PREOP 06:32
PROVIDERS: ATTEND Obstetrics & Gynecology
DX: Z01.818 Encounter for other preprocedural examination (principal)

== ENCOUNTER 2021-07-27 07:29 | Day surgery (SDC) | payer MEDICAID ==
[2021-07-27] VITALS (12 sets, daily range): BP systolic 100–118; BP diastolic 66–80
[~2021-07-27] VITALS: Ht 172 cm; Wt 93.0 kg
[~2021-07-27 07:29] MED LIST changes: +OXYC1TAB87 PO
[2021-07-27] MEDS ORDERED: ceFAZolin 2 GM IV Premixed 50 ML IV ONE (07:45)
[2021-07-27 07:58] LABS: AMPHETAMINE SCREEN, URINE NEGATIVE (NEGATIVE); BARBITURATE SCREEN URINE NEGATIVE (NEGATIVE); BENZODIAZEPINES SCREEN URINE POSITIVE (NEGATIVE); CANNABINOID SCREEN, URINE POSITIVE (NEGATIVE); COCAINE SCREEN URINE NEGATIVE (NEGATIVE); METHADONE STAT NEGATIVE (NEGATIVE); METHAMPHETAMINE SCREEN URINE S NEGATIVE (NEGATIVE); OPIATE SCREEN URINE NEGATIVE (NEGATIVE); OXYCODONE STAT POSITIVE (NEGATIVE); PROPOXYPHENE STAT NEGATIVE (NEGATIVE); TRICYCLIC ANTIDEPRESSANTS SCRE NEGATIVE (NEGATIVE)
[2021-07-27] MEDS ORDERED: ceFAZolin 2 GM IV Premixed 50 ML ONE (08:02)
[2021-07-27] MEDS: LACTATED RINGERS 1,000 ML IV PRN ×2 (08:41→11:30)
[2021-07-27] MEDS ORDERED: ONDANSETRON 4 MG/2 ML (SDV) Z0FRAN ONE ×2 (08:46→12:01)
[2021-07-27] MEDS ORDERED: LIDOCAINE PF 2% 5 ML (XYLOCAINE) VIAL ONE (08:46)
[2021-07-27] MEDS ORDERED: MIDAZOLAM 2 MG/2 ML (VERSED) VIAL ONE (08:46)
[2021-07-27] MEDS ORDERED: proPOfol 200 MG/20 ML (DIPRIVAN) VIAL IV ONE ×2 (08:46→11:08)
[2021-07-27] MEDS ORDERED: SEVOFLURANE (ULTANE) 15 ML INHAL SOLN ONE (08:46)
[2021-07-27] MEDS ORDERED: fentaNYL INJ 100 MCG/2 ML AMP ONE (08:46)
[2021-07-27] MEDS ORDERED: LIDOCAINE/EPI 1%-1:200,000 (XYLOCAINE) 30 ML VIAL ONE (09:23)
--- NOTE | 2021-07-27 10:09 | Progress Note-Pre Operative ---
Pre-Operative Progress Note H&P Reviewed The H&P was reviewed, patient examined and changes noted. complains of new lesion in the left groin that is painful. Has a raised red faruncle. It is not draining. discussed that she needs to continue warm moist compresses. Will culture during surgery but will not I&D as it appears to be healing. However, will continue the conservative treatment at home following surgery. She has had multiple similar lesions, but I do not know if she has tested + for MRSA. Date Seen by Provider: Jul 27, 2021 Time Seen by Provider: 10:00 Date H&P Reviewed: Jul 27, 2021 Time H&P Reviewed: 10:00 Pre-Operative Diagnosis: chronic pelvic pain, perineal lesion WING HUNTER DO Jul 27, 2021 10:09
[2021-07-27] MEDS ORDERED: GLYCOPYRROLATE 0.2 MG/ML (ROBINUL) 2 ML VIAL ONE (11:34)
[2021-07-27] MEDS ORDERED: KETOROLAC 30 MG/ML VIAL ONE (11:41)
--- NOTE | 2021-07-27 11:48 | Operative Report ---
Operative Report Date of Procedure/Surgery Jul 27, 2021 Surgeon (s) WING HUNTER DO Department Helper (s): NA Post-Operative Diagnosis left perineal lesion right perineal abscess left inguinal abscess probable interstitial cystitis Procedure Performed cystoscopy with hydrodistension wide local excision of left perineal lesion culture of right perineal/perianal abscess Description of Procedure Anesthesia Type: General Estimated blood loss (mL): minimal Specimen(s) collected/removed culture of perineal/perianal lesion Description of the Procedure With informed consent the patient was taken to the operating room where general anesthesia was found to be adequate. She was then prepped and draped in the usual sterile fashion in the dorsolithotomy position. The bladder was drained of clear,yellow urine. The bladder was drained with a straight cath of clear, yellow urine. I injected beneath the lesion with 1% lidocaine with epinephrine creating a wheal. I then made an elliptical excision removing the entire lesion with a margin of at least 5 mm (could not do wider due to location). I sent this for pathology. I then closed the area of the excision with interrupted 3-0 Vicryl sutures (6 used). The two areas of abscess were already draining so culture was taken. I then did cystoscopy. Filling the bladder with graduated amounts and then letting this sit in the bladder before allowing it to drain under visualization. There were Huhner's lesions and bleeding petechial areas noted consistent with interstitial cystitis. The patient was now awakened and taken to recovery in a stable condition. Sponge, lap, needle and instrument counts were correct times two Findings of the Procedure rasied white round lesion on the left of the perineum. about 3 mm in diameter draining abscess on the right side of the perineum and in the left inguinal area Allergies and Home Medications Allergies Coded Allergies: No Known Drug Allergies (Unverified , 07/27/21) Patient Home Medication List Home Medication List Reviewed: Yes Acetaminophen (Acetaminophen) 500 Mg Tablet, 1,000 MG PO Q8H PRN for PAIN-MILD (1-4) Prescribed by: WING HUNTER on 07/27/21 1157 Amitriptyline HCl (Amitriptyline HCl) 25 Mg Tablet, 25 MG PO HS Prescribed by: WING HUNTER on 07/27/21 1157 Atorvastatin Calcium (Atorvastatin Calcium) 40 Mg Tablet, 40 MG PO HS, (Reported) Entered as Reported by: CHINA WHALEY on 12/14/20 1508 Last Action: Reviewed Clonazepam (Clonazepam) 0.5 Mg Tablet, 0.5 MG PO DAILY, (Reported) Entered as Reported by: CHINA WHALEY on 12/14/20 1508 Last Action: Reviewed Cyclobenzaprine HCl (Cyclobenzaprine HCl) 10 Mg Tablet, 10 MG PO TID, (Reported) Entered as Reported by: CORRINE BARRETT on 07/21/21 1116 Last Action: Reviewed Ibuprofen (Ibu) 600 Mg Tablet, 600 MG PO Q6HR Prescribed by: WING HUNTER on 07/27/21 1157 Lidocaine/Tetracaine (Lidocaine-Tetracaine 7%-7% Crm) 30 Gm Cream..g., 30 GM TP Q6H Prescribed by: WING HUNTER on 07/27/21 1200 Mupirocin (Mupirocin) 22 Gm Oint...g., 0 GM TOP BID Prescribed by: WING HUNTER on 07/27/21 115 Sulfamethoxazole/Trimethoprim (Bactrim Ds Tablet) 1 Each Tablet, 1 EA PO BID WITH MEALS Prescribed by: WING HUNTER on 07/27/21 1157 WING HUNTER DO Jul 27, 2021 11:48
[2021-07-27] MEDS ORDERED: MUPI22OI2 TOP (11:57)
[2021-07-27] MEDS ORDERED: IBUP-844 PO (11:57)
[2021-07-27] MEDS ORDERED: ACET-93 PO (11:57)
[2021-07-27] MEDS ORDERED: SULF1TAB38 PO (11:57)
[2021-07-27] MEDS ORDERED: AMIT25TA9 PO (11:57)
[2021-07-27] MEDS ORDERED: HYDROmorphone 2 MG/ML VIAL (DILAUDID) IV ONE (12:00)
[2021-07-27] MEDS ORDERED: ACETAMINOPHEN 500 MG TAB (TYLENOL) PO PRN (12:00)
[2021-07-27] MEDS ORDERED: LIDO30CR TP (12:00)
[2021-07-27] MEDS ORDERED: ONDANSETRON 4 MG/2 ML (SDV) Z0FRAN IVP PRN (12:00)
[2021-07-27] MEDS ORDERED: KETOROLAC 30 MG/ML VIAL IVP PRN (12:00)
[2021-07-27] MEDS ORDERED: HYDROmorphone 2 MG/ML VIAL (DILAUDID) ONE (12:01)
--- NOTE | 2021-07-27 12:02 | Discharge Inst-Women's Service ---
Discharge Inst-Women's Serv Depart Medication/Instructions New, Converted or Re-Newed RX: Transmitted to Pharmacy Instructions sitz baths prn may use warm moist compress to groin lesion; use bactroban twice a day keep clean and dry start amitriptyline at night for bladder pain syndrome/ continue oxybutanin Final Diagnosis interstitial cystitis/bladder pain syndrome left perineal lesion Problems Reviewed?: Yes Consults/Follow Up Additional Follow Up: Yes (2 weeks ) Activity Activity: Activity as Tolerated Driving Instructions: No Driving for 24 Hours NO SMOKING: NO SMOKING Nothing Inside Vagina: No Cashiers (until sutures are gone) Diet Discharge Diet: No Restrictions Symptoms to Report to : Bleeding Excessive, Pain Increased, Fever Over 101 Degrees F, Vaginal Bleeding Increase, Vaginal Discharge Foul For Any Problems or Questions: Contact Your Physician Skin/Wound Care Infection Signs and Symptoms: Increased Redness, Foul Odor of Wound, Increased Drainage, Skin Itchy or Has a Rash, Increased Swelling, Temperature Above 101 F Operative Area Clean and Dry: Keep Incision Clean/Dry Bathing Instructions: WING Roman DO Jul 27, 2021 12:02
[2021-07-27] MEDS ORDERED: IBUPROFEN 600 MG (MOTRIN) TAB PO SCH (18:00)
[2021-07-27] MEDS ORDERED: TRIM/SULFAMETH 160/800 (SEPTRA DS) TAB PO SCH (18:00)
[2021-07-27] MEDS ORDERED: AMITRIPTYLINE 25 MG (ELAVIL) TAB PO SCH (21:00)
[2021-07-27] MEDS ORDERED: MUPIROCIN 2% OINT 22 GM (BACTROBAN) TUBE TOP SCH (21:00)
--- NOTE | 2021-08-10 15:50 | Anesthesia-General Post-Op ---
General Patient Condition Mental Status/LOC: Same as Preop Cardiovascular: Satisfactory Nausea/Vomiting: Absent Respiratory: Satisfactory Pain: Controlled Complications: Absent Post Op Complications Complications None Follow Up Care/Instructions Patient Instructions None needed. Anesthesia/Patient Condition Patient Condition Patient is doing well, no complaints, stable vital signs, no apparent adverse anesthesia problems. No complications reported per nursing. [place] [facility] [facility] [place] Yes ROBIN PINZON CRNA Aug 10, 2021 15:49
== END 2021-07-27 14:20 | disposition home or self-care (01) ==
LOC: SDC 07:29
PROVIDERS: ATTEND Obstetrics & Gynecology
DX: N76.2 Acute vulvitis (principal); L02.215 Cutaneous abscess of perineum; L02.214 Cutaneous abscess of groin; E78.5 Hyperlipidemia, unspecified; E66.9 Obesity, unspecified; N94.10 Unspecified dyspareunia; R35.0 Frequency of micturition; R39.15 Urgency of urination; R29.898 Other symptoms and signs involving the musculoskeletal system; F41.9 Anxiety disorder, unspecified; F32.A Depression, unspecified; F43.10 Post-traumatic stress disorder, unspecified; Z68.31 Body mass index [BMI] 31.0-31.9, adult; Z87.891 Personal history of nicotine dependence; Z79.891 Long term (current) use of opiate analgesic; Z79.899 Other long term (current) drug therapy; Z83.3 Family history of diabetes mellitus; Z80.3 Family history of malignant neoplasm of breast
CPT/HCPCS: 80306; 87070; 87075; 87076; 87077; 87081; 87185; 87205; 88305; 88342; 88344

== ENCOUNTER → 2021-12-07 | Outpatient (CLI) | payer MEDICAID ==
[~2021-12-07] MED LIST changes: +ACET-93 PO; +AMIT25TA9 PO; +IBUP-844 PO; +LIDO30CR TP; +MUPI22OI2 TOP; +SULF1TAB38 PO
--- NOTE | 2021-12-07 14:39 | Diagnostic Imaging Report ---
Indication: Routine screening. Comparison is made with prior mammogram from 11/02/2020 and 01/03/2019. 2-D and 3-D bilateral screening mammography was performed with CAD. CAD is utilized. The current study was also evaluated with a Computer Aided Detection (CAD) system. Scattered fibroglandular densities are identified bilaterally. Nodular densities in both breasts appears stable. No new mass or malignant-appearing microcalcifications are seen. Axillae are unremarkable. IMPRESSION: BI-RADS Category 2 No mammographic features suspicious for malignancy are identified. ACR BI-RADS Category 2: Benign findings. Result letter will be mailed to the patient. Note: At least 10% of breast cancer is not imaged by mammography. Dictated by: Dictated on workstation # [id number]
== END ==
LOC: RAD 11:30
PROVIDERS: ATTEND Family Medicine
DX: Z12.31 Encounter for screening mammogram for malignant neoplasm of breast (principal)
CPT/HCPCS: 77063; 77067

== ENCOUNTER → 2022-09-13 | Outpatient (CLI) | payer MEDICAID ==
[2022-09-13 08:51] LABS: BASOPHILS % (AUTO) 1 % (0-10); EOSINOPHILS # (AUTO) 0.1 10^3/uL (0.0-0.3); EOSINOPHILS % (AUTO) 1 % (0-10); HEMATOCRIT 40 % (35-52); HEMOGLOBIN 13.6 g/dL (11.5-16.0); LYMPHOCYTES # (AUTO) 1.8 10^3/uL (1.0-4.0); LYMPHOCYTES % (AUTO) 31 % (12-44); MEAN CORPUSCULAR HEMOGLOBIN 31 pg (25-34); MEAN CORPUSCULAR HGB CONC 34 g/dL (32-36); MEAN CORPUSCULAR VOLUME 92 fL (80-99); MEAN PLATELET VOLUME 9.8 fL (9.0-12.2); MONOCYTES # (AUTO) 0.3 10^3/uL (0.0-1.0); MONOCYTES % (AUTO) 6 % (0-12); NEUTROPHILS # (AUTO) 3.6 10^3/uL (1.8-7.8); NEUTROPHILS % (AUTO) 62 % (42-75); PLATELET COUNT 235 10^3/uL (130-400); WHITE BLOOD COUNT 5.9 10^3/uL (4.3-11.0)
[2022-09-13 09:08] LABS: ALBUMIN 4.1 GM/DL (3.2-4.5); BILIRUBIN,TOTAL 0.7 MG/DL (0.1-1.0); CALCIUM 9.2 MG/DL (8.5-10.1); CREATININE SERUM 0.71 MG/DL (0.60-1.30); POTASSIUM 3.7 MMOL/L (3.6-5.0); TOTAL PROTEIN 6.7 GM/DL (6.4-8.2)
== END ==
LOC: LAB 08:33
PROVIDERS: ATTEND Family Medicine
DX: R10.9 Unspecified abdominal pain (principal); Z87.442 Personal history of urinary calculi
CPT/HCPCS: 36415; 80053; 85025

== ENCOUNTER → 2022-09-13 | Outpatient (CLI) | payer MEDICAID ==
--- NOTE | 2022-09-13 16:58 | Diagnostic Imaging Report ---
PROCEDURE: US Renal Bilateral. TECHNIQUE: Multiple Real-time grayscale images were obtained over the kidneys in various projections bilaterally. INDICATION: Bilateral flank pain. Patient has history of nephrolithiasis. FINDINGS: The right kidney measures 10.6 x 4.7 x 5.9 cm and the left kidney measures 10.6 x 5.3 x 5.1 cm. The cortical thickness and echogenicity are normal. There are echogenic foci within both kidneys, suggestive of nonobstructing calculi. The largest on the left is approximately 9 mm. The largest on the right is 7 mm. The bladder does show bilateral ureteral jets. There is no hydronephrosis. IMPRESSION: Probable bilateral nonobstructing nephrolithiasis. No hydronephrosis is detected. Dictated by: Dictated on workstation # [id number]
== END ==
LOC: RAD 13:56
PROVIDERS: ATTEND Family Medicine
DX: R10.9 Unspecified abdominal pain (principal); Z87.442 Personal history of urinary calculi
CPT/HCPCS: 76770

== ENCOUNTER → 2022-12-29 | Outpatient (CLI) | payer MEDICAID ==
--- NOTE | 2022-12-29 13:08 | Diagnostic Imaging Report ---
INDICATION: Routine screening. COMPARISON: 12/07/2021 and 11/02/2020. TECHNIQUE: 2D and 3D bilateral screening mammography was performed with CAD. FINDINGS: Scattered fibroglandular densities are identified bilaterally. Bilateral breast nodules are stable. No new mass or malignant-appearing microcalcifications are seen. The axillae are unremarkable. IMPRESSION: No mammographic features suspicious for malignancy are identified. ACR BI-RADS Category 2: Benign findings. Result letter will be mailed to the patient. Note: At least 10% of breast cancer is not imaged by mammography. Dictated by: Dictated on workstation # [id number]
== END ==
LOC: RAD 11:00
PROVIDERS: ATTEND Family Medicine
DX: Z12.31 Encounter for screening mammogram for malignant neoplasm of breast (principal)
CPT/HCPCS: 77063; 77067

== ENCOUNTER 2023-04-03 11:12 | Outpatient (RCR) | payer MEDICAID | END 2023-04-06 | disposition home or self-care (01) | PROVIDERS: ATTEND Family Medicine Sports Medicine | DX: M76.72 Peroneal tendinitis, left leg (principal); M76.62 Achilles tendinitis, left leg ==